=== PATIENT | male | born 1945 | race Caucasian/White ===

== ENCOUNTER 2018-01-09 19:53 | Emergency (ER) | payer MEDICARE ==
[2018-01-09] MEDS: NITROGLYCERIN 0.4 MG SUBL TABLET SL (16:45)
[2018-01-09] MEDS: ONDANSETRON 4MG/2ML VIAL (J2405) IV (16:45)
[2018-01-09] MEDS: CLOPIDOGREL 300 MG TAB (PLAVIX) PO (16:48)
[2018-01-09 17:00] LABS: BASO # 0.1 10^3/uL (0.0-0.2); BASO % 0.7 % (0.0-1.0); EOS # 0.1 10^3/uL (0.0-0.50); EOS % 1.2 % (0.0-3.0); HEMATOCRIT 47.1 % (42.0-52.0); HEMOGLOBIN 16.3 g/dl (13.5-17.5); IMMATURE GRANULOCYTE % 0.3 % (0-3.0); LYMPH % 25.8 % (24.0-44.0); MEAN CORPUSCULAR HEMOGLOBIN 29.9 pg (27.0-33.0); MEAN CORPUSCULAR HGB CONC 34.6 g/dl (32.0-36.5); MEAN CORPUSCULAR VOLUME 86.4 fl (80.0-96.0); NEUTROPHILS # 7.3 10^3/uL (1.8-7.7); PLATELET COUNT, AUTOMATED 301 10^3/uL (150-450); RED BLOOD COUNT 5.45 10^6/uL (4.30-6.10); RED CELL DISTRIBUTION WIDTH 12.9 % (11.5-14.5); WHITE BLOOD COUNT 11.6 10^3/uL (4.0-10.0)
[2018-01-09 17:18] LABS: INR 0.96; PROTHROMBIN TIME 12.9 SECONDS (12.4-14.5)
[2018-01-09 17:20] LABS: ALBUMIN 3.8 GM/DL (3.2-5.2); ALKALINE PHOSPHATASE 110 U/L (45-117); ALT/SGPT 28 U/L (12-78); ANION GAP 8 MEQ/L (8-16); AST/SGOT 28 U/L (7-37); BILIRUBIN,DIRECT < 0.1 MG/DL (0.0-0.2); BILIRUBIN,TOTAL 0.6 MG/DL (0.2-1.0); BLOOD UREA NITROGEN 30 MG/DL (7-18); CALCIUM LEVEL 9.3 MG/DL (8.8-10.2); CARBON DIOXIDE LEVEL 23 MEQ/L (21-32); CHLORIDE LEVEL 99 MEQ/L (98-107); CPK CREATINE PHOSPHOKINASE 278 U/L (39-308); CREATININE FOR GFR 0.99 MG/DL (0.70-1.30); GLOMERULAR FILTRATION RATE > 60.0 (>42); GLUCOSE, FASTING 146 MG/DL (70-100); LIPASE 164 U/L (73-393); POTASSIUM SERUM 3.9 MEQ/L (3.5-5.1); SODIUM LEVEL 130 MEQ/L (136-145); TROPONIN I < 0.02 NG/ML (< 0.10)
[2018-01-09 17:21] LABS: D-DIMER QUANT 452.9 ng/ml (<500)
[2018-01-09 17:26] LABS: MB/CK RELATIVE INDEX 1.07 (< OR =4)
[2018-01-09 17:35] LABS: BEDSIDE GLUCOSE 133 MG/DL (83-110)
[~2018-01-09 19:53] MED LIST: ONDANSETRON 4MG/2ML VIAL (J2405) As Ordered
[2018-01-09] MEDS: MAALOX 30 ML SUSP *UDC PO (20:15)
[2018-01-09 20:44] LABS: CPK CREATINE PHOSPHOKINASE 226 U/L (39-308); TROPONIN I < 0.02 NG/ML (< 0.10)
[2018-01-09 20:45] LABS: CK-MB VALUE MASS 2.2 NG/ML (<3.6); MB/CK RELATIVE INDEX 0.97 (< OR =4)
== END 2018-01-09 21:33 | disposition left against medical advice (07) ==
LOC: M ED 19:53
DX: I20.0 Unstable angina (principal); R94.31 Abnormal electrocardiogram [ECG] [EKG]; R06.02 Shortness of breath; E11.9 Type 2 diabetes mellitus without complications; I10 Essential (primary) hypertension; J45.909 Unspecified asthma, uncomplicated; M54.9 Dorsalgia, unspecified; Z88.5 Allergy status to narcotic agent
CPT/HCPCS: J2405

== ENCOUNTER 2020-05-09 12:53 | Inpatient (IN) | payer MEDICARE ==
[~2020-05-09] VITALS: Ht 193 cm; Wt 110.6 kg
[~2020-05-09 12:53] MED LIST changes: +*BLDWK7; +ALBUTEROL INHALATION; +AMITRIP100 PO; +AMO500 PO; +ATENOL25 PO; +ATENOLO100 PO; +ATENOLOL50 PO; +AUGXR10 PO; +CELEXA20 PO; +DARVOCET-N PO; +DIOVAN160 PO; +DOXYCYC100 PO; +FLEXERIL10 PO; +HCTZ25 PO; +HYDROCHL12 PO; +HYTRIN PO; +KDUR20 PO; +LISINOPR10 PO; +LISINOPR20 PO; +LYRICA25 PO; +MYCELEXTRO PO; +NAPROS500 PO; +NEURONTIN1 PO; +NITROSTAT4 SL; -ONDANSETRON 4MG/2ML VIAL (J2405) As Ordered; +PREDNISO20 PO; +TRIAMCIN TOPICAL; +TYL PO; +TYLENOL#3 PO; +VICODIN PO; +VIOXX25 PO; +ZANTAC150 PO; +ZOCOR80 PO; +ZOLOFT100 PO; +ZOLOFT50 PO; +ZYRTEC10 PO; +[UNRECOGNIZED DRUG - OTHER] PO
[2020-05-09] MEDS ORDERED: ATEN100T PO (13:24)
[2020-05-09] MEDS ORDERED: LOVA40TA PO (13:24)
[2020-05-09] MEDS ORDERED: GLIM4TAB5 PO (13:24)
--- NOTE | 2020-05-09 13:31 | REPVR ---
PROCEDURE INFORMATION: Exam: XR Chest, 1 View Exam date and time: 05/09/2020 1:24 PM Age: 75 years old Clinical indication: Other: Syncope; Additional info: Syncope/near-syncope TECHNIQUE: Imaging protocol: XR of the chest Views: 1 view. COMPARISON: [facility] PORTABLE CHEST X-RAY 01/09/2018 4:36 PM FINDINGS: Lungs: Emphysematous change and mild interstitial prominence. Pleural space: No pleural effusion. Heart/Mediastinum: Cardiac silhouette upper limits of normal in size. Bones/joints: Osteopenia and degenerative change. IMPRESSION: Emphysematous change and mild interstitial prominence. Electronically signed by: Tico Truong On 05/09/2020 13:31:39 PM
--- NOTE | 2020-05-09 13:45 | REPVR ---
PROCEDURE INFORMATION: Exam: CT Head Without Contrast Exam date and time: 05/09/2020 1:33 PM Age: 75 years old Clinical indication: Syncope and collapse TECHNIQUE: Imaging protocol: Computed tomography of the head without contrast. Radiation optimization: All CT scans at this facility use at least one of these dose optimization techniques: automated exposure control; mA and/or kV adjustment per patient size (includes targeted exams where dose is matched to clinical indication); or iterative reconstruction. COMPARISON: No relevant prior studies available. FINDINGS: Brain: Symmetric prominence of the cortical sulci. Prominent multifocal small-vessel ischemic change. No acute cortical infarct, mass effect, or intracranial hemorrhage. No acute post-traumatic brain injury. Ventricles: Normal configuration of the ventricles. Bones/joints: No acute calvarial injury. Paranasal sinuses: No sinus fluid. Mastoid air cells: No mastoid effusion. Vasculature: Vascular and dural calcifications. Soft tissues: No significant scalp hematoma. IMPRESSION: 1. No acute post-traumatic brain injury. 2. Atrophy and prominent small-vessel ischemic change. Electronically signed by: Tico Truong On 05/09/2020 13:45:46 PM
--- NOTE | 2020-05-09 13:48 | REPVR ---
PROCEDURE INFORMATION: Exam: CT Cervical Spine Without Contrast Exam date and time: 05/09/2020 1:33 PM Age: 75 years old Clinical indication: Other: Syncope TECHNIQUE: Imaging protocol: Computed tomography images of the cervical spine without contrast. Radiation optimization: All CT scans at this facility use at least one of these dose optimization techniques: automated exposure control; mA and/or kV adjustment per patient size (includes targeted exams where dose is matched to clinical indication); or iterative reconstruction. COMPARISON: No relevant prior studies available. FINDINGS: Vertebrae: Osteopenia. No acute bony injury or malalignment in the cervical spine. Discs/Spinal canal/Neural foramina: Degenerative change . Soft tissues: Ligamentous calcification. Lungs: Lung unremarkable apices as visualized. IMPRESSION: No acute bony injury or malalignment in the cervical spine. Electronically signed by: Tico Truong On 05/09/2020 13:48:05 PM
[2020-05-09 14:00] LABS: BASO % 0.5 % (0.0-1.0); EOS # 0.1 10^3/uL (0.0-0.5); EOS % 0.6 % (0.0-3.0); HEMOGLOBIN 16.5 g/dl (13.5-17.5); LYMPH # 1.2 10^3/uL (1.5-5.0); LYMPH % 15.4 % (24.0-44.0); MEAN CORPUSCULAR HEMOGLOBIN 30.3 pg (27.0-33.0); MEAN CORPUSCULAR HGB CONC 35.1 g/dl (32.0-36.5); MEAN CORPUSCULAR VOLUME 86.4 fl (80.0-96.0); MONO # 0.7 10^3/uL (0.0-0.8); MONO % 8.5 % (0.0-5.0); NEUTROPHILS # 5.8 10^3/uL (1.5-8.5); NEUTROPHILS % 74.5 % (36.0-66.0); PLATELET COUNT, AUTOMATED 304 10^3/uL (150-450); RED BLOOD COUNT 5.44 10^6/uL (4.30-6.10); WHITE BLOOD COUNT 7.8 10^3/uL (4.0-10.0)
[2020-05-09 14:12] LABS: INR 0.96
[2020-05-09 14:13] LABS: PARTIAL THROMBOPLASTIN TIME 28.4 SECONDS (25.0-38.4)
[2020-05-09] MEDS ORDERED: NS 1,000 ML IV ONE (14:15)
[2020-05-09 14:42] LABS: BLOOD UREA NITROGEN 23 MG/DL (7-18); CALCIUM LEVEL 9.8 MG/DL (8.8-10.2); CARBON DIOXIDE LEVEL 25 MEQ/L (21-32); CHLORIDE LEVEL 95 MEQ/L (98-107); CK-MB VALUE MASS 2.6 NG/ML (<3.6); CPK CREATINE PHOSPHOKINASE 185 U/L (39-308); CREATININE FOR GFR 0.96 MG/DL (0.70-1.30); ETHYL ALCOHOL (ETHANOL) < 0.003 % (0.000-0.010); FREE T4 1.18 NG/DL (0.76-1.46); GLOMERULAR FILTRATION RATE > 60.0 (>42); GLUCOSE, FASTING 231 MG/DL (70-100); MB/CK RELATIVE INDEX 1.41 (< OR =4); POTASSIUM SERUM 4.6 MEQ/L (3.5-5.1); SODIUM LEVEL 128 MEQ/L (136-145); TROPONIN I < 0.02 NG/ML (< 0.10)
[2020-05-09] MEDS ORDERED: ISOVUE-370 76% 100ML VIAL As Ordered ONE (14:54)
--- NOTE | 2020-05-09 15:44 | REPVR ---
PROCEDURE INFORMATION: Exam: CT Angiography Chest With Contrast Exam date and time: 05/09/2020 3:01 PM Age: 75 years old Clinical indication: Chest pain; Additional info: Syncope TECHNIQUE: Imaging protocol: Computed tomographic angiography of the chest with intravenous contrast. 3D rendering (Not supervised by radiologist): MIP and/or 3D reconstructed images were created by the technologist. Radiation optimization: All CT scans at this facility use at least one of these dose optimization techniques: automated exposure control; mA and/or kV adjustment per patient size (includes targeted exams where dose is matched to clinical indication); or iterative reconstruction. Contrast material: ISOVUE 370; Contrast volume: 100 ml; Contrast route: INTRAVENOUS (IV); COMPARISON: [facility] PORTABLE CHEST X-RAY 05/09/2020 1:17 PM FINDINGS: Pulmonary arteries: No pulmonary embolus in the opacified pulmonary arteries. Aorta: Mild enlargement of the ascending thoracic aorta measuring 4.0 cm in diameter. Lungs: Interstitial prominence and mild bilateral airspace disease. Pleural space: No pleural effusion. Heart: No cardiomegaly. Mediastinum: prominent mediastinal and epicardial fat. Lymph nodes: Subcentimeter lymph nodes. Bones/joints: Osteopenia, multiple chronic compression deformities in the thoracic spine, Schmorl's nodes, and degenerative change. Soft tissues: Gynecomastia. IMPRESSION: 1. Interstitial prominence and mild bilateral airspace disease. 2. Mild enlargement of the ascending thoracic aorta measuring 4.0 cm in diameter. 3. No pulmonary embolus in the opacified pulmonary arteries. 4. Additional findings as described above. Electronically signed by: Tico Truong On 05/09/2020 15:44:29 PM
[2020-05-09] MEDS ORDERED: KETOROLAC 30 MG/ML 1ML VIAL IV ONE (15:45)
[2020-05-09] MEDS ORDERED: ONDANSETRON 4MG/2ML VIAL IV ONE (15:45)
--- NOTE | 2020-05-09 15:49 | REPVR ---
PROCEDURE INFORMATION: Exam: CT Abdomen And Pelvis With Contrast Exam date and time: 05/09/2020 3:01 PM Age: 75 years old Clinical indication: Abdominal pain; Generalized; Additional info: Syncope TECHNIQUE: Imaging protocol: Computed tomography of the abdomen and pelvis with intravenous contrast. Radiation optimization: All CT scans at this facility use at least one of these dose optimization techniques: automated exposure control; mA and/or kV adjustment per patient size (includes targeted exams where dose is matched to clinical indication); or iterative reconstruction. Contrast material: ISOVUE 370; Contrast volume: 100 ml; Contrast route: INTRAVENOUS (IV); COMPARISON: No relevant prior studies available. FINDINGS: Liver: Fatty infiltration of the liver. Gallbladder and bile ducts: Unremarkable gallbladder. No biliary ductal dilatation. Pancreas: No pancreatic mass or ductal dilatation. Spleen: Spleen upper limits of normal in size. Adrenals: Unremarkable adrenals. Kidneys and ureters: Normal renal morphology. No hydronephrosis. Stomach and bowel: Mild wall thickening in the nondistended stomach. Mild small bowel dilatation without a transition zone. Prominent stool. Diverticula, without pericolonic inflammation. Appendix: No acute appendicitis. Intraperitoneal space: No free fluid. Vasculature: Vascular calcification. No abdominal aortic aneurysm. Lymph nodes: Subcentimeter lymph nodes. Bladder: Normal bladder morphology. Reproductive: Punctate prostate calcification. Bones/joints: Osteopenia. Transitional vertebra at the lumbosacral junction, designated S1 grade 1 anterolisthesis of L5 on S1. Degenerative change and disc bulging. IMPRESSION: 1. No acute inflammatory process in the abdomen or pelvis. 2. Additional findings as described above. Electronically signed by: Tico Truong On 05/09/2020 15:49:15 PM
[2020-05-09 16:04] LABS: AMPHETAMINES LEVEL URINE NEGATIVE (NEGATIVE); BARBITURATES URINE NEGATIVE (NEGATIVE); BENZODIAZEPINES URINE NEGATIVE (NEGATIVE); CANNABINOIDS URINE NEGATIVE (NEGATIVE); COCAINE METABOLITE URINE NEGATIVE (NEGATIVE); METHADONE URINE NEGATIVE (NEGATIVE); OPIATES URINE NEGATIVE (NEGATIVE); PHENCYCLIDINE URINE NEGATIVE (NEGATIVE)
--- NOTE | 2020-05-09 18:13 | HPEPDOC ---
[facility] Medical History & Physical Date of Admission May 09, 2020 Date of Service: May 09, 2020 History and Physical CHIEF COMPLAINT: syncope HISTORY OF PRESENT ILLNESS: 75 yo M with a hx of HTN, DM2, PE syncopal episodes, presented to the ED after he found himself on his kitchen floor today. He states that he was making a sandwich, and felt a funny feeling in his arms. Next thing he remembers is his dog licking his face. He crawled to the door, where his neighbors noticed him and called EMS. He denies chest pain, SOB, palpitations, headache, fevers, chills, n/v/d. He was last admitted to [facility] in 2007 for a syncopal episode (prior consults note 5 prior syncopal episodes), for which he received a cardiac and neuro exam. He was assessed by neurology. Clinic features at the time were consistent with syncope 2/2 to seizure like activity. EEG was wnl. MRA showed possible R ophthalmic ICA and RCA narrowing (some artifact was noted). Patient states that he has not taken his medications for the past 2-3 months. He reports being diagnosed with a PE for which he took AC (suspect NOAC) at [facility], but that he stopped taking AC 3 months ago. He states that his PCP was Dr. Rushing but he is no longer being seen. He lost 5 immediate family members in the past few months, and he has been neglecting his health due to bereavement and supporting his daughter (lost her recently). PAST MEDICAL HISTORY: HTN DM2 HLD PAST SURGICAL HISTORY: Discectomy and lumbar laminectomy of L5-S1 for a herniated disc Tonsillectomy SOCIAL HISTORY: FAMILY HISTORY: ALLERGIES: Please see below. REVIEW OF SYSTEMS: as per HPI. HOME MEDICATIONS: Please see below. PHYSICAL EXAMINATION: VITAL SIGNS: as above. General: NAD, comfortable HEENT: PERRLA, EOMI, sclerae clear Neck: supple, normal ROM, no JVD Resp: lungs CTAB, no wheeze, no rales, no crackles CVS: RRR, normal S1, S2, no murmurs Abdo: soft, no masses, no hepatosplenomegaly, BS+, no rebound tenderness Extremities: no edema, pulses 2+ MSK: no joint deformities, normal ROM Neuro: no focal neuro deficits, moving all 4 extremities Psych: calm, cooperative, AAO x 3 LABORATORY DATA: See below. IMAGING: CXR: IMPRESSION: Emphysematous change and mild interstitial prominence. CT head: IMPRESSION: 1. No acute post-traumatic brain injury. 2. Atrophy and prominent small-vessel ischemic change. CT c-spine IMPRESSION: No acute bony injury or malalignment in the cervical spine. CTA chest: IMPRESSION: 1. Interstitial prominence and mild bilateral airspace disease. 2. Mild enlargement of the ascending thoracic aorta measuring 4.0 cm in diameter. 3. No pulmonary embolus in the opacified pulmonary arteries. 4. Additional findings as described above. CT abdo/pelvis: Bones/joints: Osteopenia. Transitional vertebra at the lumbosacral junction, designated S1 grade 1 anterolisthesis of L5 on S1. Degenerative change and disc bulging. IMPRESSION: 1. No acute inflammatory process in the abdomen or pelvis. 2. Additional findings as described above MICROBIOLOGY: Please see below. ASSESSMENT: 75 yo M with a hx of HTN, DM2, Ashtma, presenting to the ED after an episode of syncope. Prior recurrent syncopal episodes. Given presentation of confusion and memory loss after episodes, consider seizure activity. . PLAN: # syncope - cardiac vs neuro in nature. Seizures likely. - CT head, neck wnl - Tele - check 2D echo, Carotid US (BL) - check tsh, b12, folate, vitamin D - order EEG - PT/OT eval # Hyponatremia - Na 128 - IV NS 80 cc/hr #DM2 - check a1c - ISS, - accuchecks AC and HS - consistent carbohydrate diet #HTN - continue home meds - limit Na intake on DC - monitor BP - BP goals < 150/90 #Hyperlipidemia - continue home med: statin # LE weakness - ROM limited by back pain - CT brain wnl - PT/OT Dispo: pending PT/OT eval. Vital Signs Vital Signs Date Time Temp Pulse Resp B/P (MAP) Pulse Ox O2 Delivery O2 Flow Rate FiO2 05/09/20 14:43 100 166/88 (114) 110 180/112 (134) 112 163/97 (119) 05/09/20 14:07 98.6 20 99 Room Air Laboratory Data Labs 24H Laboratory Tests 2 05/09/20 13:47: Immature Granulocyte % (Auto) 0.5, Neutrophils (%) (Auto) 74.5H, Lymphocytes (%) (Auto) 15.4L, Monocytes (%) (Auto) 8.5H, Eosinophils (%) (Auto) 0.6, Basophils (%) (Auto) 0.5, Neutrophils # (Auto) 5.8, Lymphocytes # (Auto) 1.2L, Monocytes # (Auto) 0.7, Eosinophils # (Auto) 0.1, Basophils # (Auto) 0.0, Nucleated Red Blood Cells % (auto) 0.0, Prothrombin Time 13.0, Prothromb Time International Ratio 0.96, Activated Partial Thromboplast Time 28.4, Anion Gap 8, Glomerular Filtration Rate > 60.0, Calcium Level 9.8, Magnesium Level 2.0, Total Creatine Kinase 185, Creatine Kinase MB 2.6, Creatine Kinase MB Relative Index 1.41, Troponin I < 0.02, Thyroid Stimulating Hormone (TSH) 2.040, Free Thyroxine 1.18, Ethyl Alcohol Level < 0.003 05/09/20 13:52: Bedside Glucose (Misc Panel) 258H 05/09/20 13:55: Urine Opiates Screen NEGATIVE, Urine Methadone Screen NEGATIVE, Urine Barbiturates Screen NEGATIVE, Urine Phencyclidine Screen NEGATIVE, Urine Amph etamines Screen NEGATIVE, Urine Benzodiazepines Screen NEGATIVE, Urine Cocaine Metabolite Screen NEGATIVE, Urine Cannabinoids Screen NEGATIVE CBC/BMP Laboratory Tests 05/09/20 13:47 Home Medications Scheduled Atenolol (Atenolol) 100 Mg Tablet, 100 MG PO DAILY Glimepiride (Glimepiride) 4 Mg Tablet, 4 MG PO DAILY Lovastatin (Lovastatin) 40 Mg Tablet, 40 MG PO DAILY Miscellaneous Medications [Patient Comment] PATIENT HAS NOT TAKEN MEDICATIONS IN 2 TO 3 MONTHS. PATIENT WAS ALSO GETTING A BLOOD THINNER A SAMPLE FROM THE DR OFFICE TAKING ONCE DAILY, BUT DOES NOT RECALL THE NAME OF THE MEDICATION. Allergies Coded Allergies: morphine (Verified Allergy, Intermediate, HYPOTENSION, 05/09/20) A-FIB/CHADSVASC A-FIB History Current/History of A-Fib/PAF?: No Current PO Anticoag Therapy: No FLEX STOUT MD May 09, 2020 18:13
[2020-05-09] MEDS ORDERED: DEXTROSE 50% 50 ML SYRINGE IV PRN (18:15)
[2020-05-09] MEDS ORDERED: GLUCOSE 4GM CHEW TABLET PO PRN (18:15)
[2020-05-09] MEDS ORDERED: GLUCAGON INJ 1MG VIAL SC PRN (18:15)
[2020-05-09] MEDS ORDERED: PERCOCET 5MG/325MG TAB PO ONE (18:15)
[2020-05-09] MEDS ORDERED: NS 1,000 ML IV SCH (18:30)
[2020-05-09] MEDS ORDERED: PATIENT COMMENT (19:05)
[2020-05-09] MEDS: LOSARTAN 25 MG TAB PO SCH (21:41)
[2020-05-09] MEDS: amLODIPine 5 MG TAB PO SCH (21:42)
[2020-05-09 22:55] VITALS: BP 162/90
--- NOTE | 2020-05-10 00:42 | REPVR ---
PROCEDURE INFORMATION: Exam: US Duplex Bilateral Extracranial Arteries Exam date and time: 05/09/2020 6:49 PM Age: 75 years old Clinical indication: Syncope and collapse TECHNIQUE: Imaging protocol: Real-time Duplex ultrasound scan of the bilateral carotid and vertebral arteries combining krishna scale, color Doppler and spectral waveform analysis. Bilateral exam. COMPARISON: CT Head without contrast 05/09/2020 1:26 PM FINDINGS: Right common carotid artery: The proximal right common carotid artery demonstrates normal triphasic waveforms with velocity of 52 cm/s, mid velocity of 48 cm/s and distal velocity of 40 cm/s. Right internal carotid artery: The right proximal internal carotid artery demonstrates normal Doppler waveforms with velocity of 40 cm/s and mid velocity of 56 cm/s. The distal internal carotid artery is not visualized. Right ICA/CCA ratio: The right ICA/CCA ratio is 1.1. Right external carotid artery: The right external carotid artery demonstrates normal Doppler waveforms with velocity of 64 cm/s. Right vertebral artery: The right vertebral artery is not seen. Left common carotid artery: The left common carotid artery proximally demonstrates normal Doppler waveforms with velocity of 94 cm/s, mid velocity of 65 cm/s and distal velocity of 64 cm/s. Left internal carotid artery: The proximal left internal carotid artery demonstrates normal Doppler waveforms with velocity of 32 cm/s and mid velocity of 64 cm/s. The distal internal carotid artery is not visualized. Left ICA/CCA ratio: The left ICA/CCA ratio is 0.7. Left external carotid artery: The left external carotid demonstrates normal Doppler waveforms with velocity of 69 cm/s. Left vertebral artery: The left vertebral artery demonstrates antegrade flow with velocity of 39 cm/s. Other findings: Technical limitation of high carotid bifurcations and large neck. IMPRESSION: 1. Somewhat limited exam due to high bifurcations and large neck. 2. Otherwise negative carotid Doppler evaluation without evidence of hemodynamically significant stenosis. REFERENCES: SRU CRITERIA. The degree of internal carotid artery stenosis is based on criteria defined by the Society of Radiologists in Ultrasound (SRU). Normal is no stenosis. Mild is less than 50% stenosis. Moderate is 50-69% stenosis. Severe is greater than 69% stenosis to near occlusion. Near occlusion is a markedly narrowed lumen. Total occlusion is no detectable patent lumen. Electronically signed by: Malik Pinto On 05/10/2020 00:42:21 AM
[2020-05-10] MEDS: methocarbamoL 500 MG TAB PO PRN ×3 (00:53→18:03)
[2020-05-10] MEDS: ACETAMINOPHEN TAB 650MG DOSE (2X325MG) PO PRN ×3 (00:54→20:56)
[2020-05-10 06:00] VITALS: BP 150/88
[2020-05-10 06:18] LABS: BASO # 0.1 10^3/uL (0.0-0.2); EOS # 0.1 10^3/uL (0.0-0.5); EOS % 2.2 % (0.0-3.0); HEMATOCRIT 43.3 % (42.0-52.0); HEMOGLOBIN 14.7 g/dl (13.5-17.5); LYMPH # 1.2 10^3/uL (1.5-5.0); LYMPH % 23.7 % (24.0-44.0); MEAN CORPUSCULAR HEMOGLOBIN 30.2 pg (27.0-33.0); MEAN CORPUSCULAR HGB CONC 33.9 g/dl (32.0-36.5); MEAN CORPUSCULAR VOLUME 88.9 fl (80.0-96.0); MONO # 0.6 10^3/uL (0.0-0.8); MONO % 10.9 % (0.0-5.0); NEUTROPHILS # 3.1 10^3/uL (1.5-8.5); PLATELET COUNT, AUTOMATED 248 10^3/uL (150-450); RED BLOOD COUNT 4.87 10^6/uL (4.30-6.10)
[2020-05-10 06:53] LABS: ALBUMIN 3.2 GM/DL (3.2-5.2); ALT/SGPT 30 U/L (12-78); BILIRUBIN,TOTAL 0.7 MG/DL (0.2-1.0); BLOOD UREA NITROGEN 22 MG/DL (7-18); CARBON DIOXIDE LEVEL 26 MEQ/L (21-32); CHLORIDE LEVEL 98 MEQ/L (98-107); CREATININE FOR GFR 0.92 MG/DL (0.70-1.30); GLOMERULAR FILTRATION RATE > 60.0 (>42); GLUCOSE, FASTING 235 MG/DL (70-100); MAGNESIUM LEVEL 1.9 MG/DL (1.8-2.4); PHOSPHORUS LEVEL 3.7 MG/DL (2.5-4.9); SODIUM LEVEL 131 MEQ/L (136-145); TOTAL PROTEIN 6.3 GM/DL (6.4-8.2)
[2020-05-10] MEDS: HumaLOG INSULIN (NovoLOG) PER UNIT SC SCH ×3 (08:21→17:20)
[2020-05-10] MEDS: ENOXAPARIN 40MG/0.4ML SYRINGE (J1650 PER 10MG) SC SCH (08:23)
[2020-05-10] MEDS: TAMSULOSIN 0.4 MG CAP PO SCH (08:24)
[2020-05-10] MEDS: amLODIPine 5 MG TAB PO SCH (08:30)
[2020-05-10] MEDS ORDERED: NS 1,000 ML IV SCH (08:30)
[2020-05-10] MEDS: atenoloL 50 MG TAB PO SCH (08:31)
[2020-05-10 09:25] LABS: TOTAL 25(OH) VITAMIN D 21.6 NG/ML (30.0-100.0); VITAMIN B12 LEVEL 313 PG/ML (247-911)
[2020-05-10 09:27] LABS: FOLATE 6.7 NG/ML (>5.4)
--- NOTE | 2020-05-10 10:31 | IPNPDOC ---
Date Seen The patient was seen on 05/10/20. Progress Note SUBJECTIVE: patient was seen at bedside. Doing well this morning. No acute events overnight. Today, he reported chest pain that occurred yesterday. Initial Trop in ED was negative. EKG showed no signs of ischemia. Will obtain a repeat trop and EKG. Pain has resolved. Unable to verify if occurred prior to or after the collapse. OBJECTIVE PHYSICAL EXAMINATION: VITAL SIGNS: Please see below. General: NAD, comfortable HEENT: PERRLA, EOMI, sclerae clear Neck: supple, normal ROM, no JVD Resp: lungs CTAB, no wheeze, no rales, no crackles CVS: RRR, normal S1, S2, no murmurs Abdo: soft, no masses, no hepatosplenomegaly, BS+, no rebound tenderness Extremities: no edema, pulses 2+ MSK: no joint deformities, normal ROM Neuro: no focal neuro deficits, moving all 4 extremities Psych: calm, cooperative, AAO x 3 LABORATORY DATA, IMAGING STUDIES, MICROBIOLOGY: Please see below. Echocardiogram: ordered. DVT prophylaxis ordered?: Yes, lovenox ASSESSMENT AND PLAN: 75 yo M with a hx of HTN, DM2, PE (was on AC, stopped 3 mo ago), presenting to the ED after an episode of syncope. Prior recurrent syncopal episodes. Given presentation of confusion and memory loss after episodes, consider seizure activity. PROBLEMS: # syncope - cardiac vs neuro in nature. Seizures likely. - CT head, neck wnl - Tele showing no arrhythmia overnight. Will recommend outpatient cardiac monitoring. - Bilateral carotid US showing no stenosis. - check 2D echo - tsh, b12, folate wnl, vitamin D low (replace PO) - order EEG, MRI, MRA - neurology consult placed, Dr. Lambert aware. - PT/OT eval # Hyponatremia - Na 128 --> 131 - IV NS 80 cc/hr #DM2 - A1c 9.0, takes no meds at home (previously on glimepiride, hold on DC) - ISS - accuchecks AC and HS ~250-300 - start levemir 10 units qhs - will need new PCP - diabetic education - consistent carbohydrate diet #Chest pain - resolved - not endorsed on ROS during admission - Trop neg, trend - EKG showing no signs for ischemia - pain resolved - obtain repeat EKG #HTN - continue home meds: atenolol 50 mg qdaily (reduced from 100 mg daily) - added losartan 25 mg PO daily, amlodipine 5 mg qdaily - limit Na intake on DC - Normotensive today (BP goal < 150/90) #Hyperlipidemia - home med lovastatin # LE weakness - ROM limited by back pain - CT brain wnl - PT/OT Dispo: pending PT/OT eval. VS, I&O, 24H, Fishbone Vital Signs/I&O Vital Signs Date Time Temp Pulse Resp B/P (MAP) Pulse Ox O2 Delivery O2 Flow Rate FiO2 05/10/20 08:30 80 142/92 05/10/20 06:00 97.6 19 97 Room Air I&O- Last 24 Hours up to 6 AM 05/10/20 06:00 Intake Total 1790 ml Output Total 375 ml Balance 1415 ml Laboratory Data 24H LABS Laboratory Tests 2 05/09/20 13:47: Immature Granulocyte % (Auto) 0.5, Neutrophils (%) (Auto) 74.5H, Lymphocytes (%) (Auto) 15.4L, Monocytes (%) (Auto) 8.5H, Eosinophils (%) (Auto) 0.6, Basophils (%) (Auto) 0.5, Neutrophils # (Auto) 5.8, Lymphocytes # (Auto) 1.2L, Monocytes # (Auto) 0.7, Eosinophils # (Auto) 0.1, Basophils # (Auto) 0.0, Nucleated Red Blood Cells % (auto) 0.0, Prothrombin Time 13.0, Prothromb Time International Ratio 0.96, Activated Partial Thromboplast Time 28.4, Anion Gap 8, Glomerular Filtration Rate > 60.0, Calcium Level 9.8, Magnesium Level 2.0, Total Creatine Kinase 185, Creatine Kinase MB 2.6, Creatine Kinase MB Relative Index 1.41, Troponin I < 0.02, Thyroid Stimulating Hormone (TSH) 2.040, Free Thyroxine 1.18, Ethyl Alcohol Level < 0.003 05/09/20 13:52: Bedside Glucose (Misc Panel) 258H 05/09/20 13:55: Urine Opiates Screen NEGATIVE, Urine Methadone Screen NEGATIVE, Urine Barbiturates Screen NEGATIVE, Urine Phencyclidine Screen NEGATIVE, Urine Amphetamines Screen NEGATIVE, Urine Benzodiazepines Screen NEGATIVE, Urine Cocaine Metabolite Screen NEGATIVE, Urine Cannabinoids Screen NEGATIVE 05/09/20 23:37: Bedside Glucose (Misc Panel) 286H 05/10/20 05:52: Immature Granulocyte % (Auto) 0.2, Neutrophils (%) (Auto) 62.0, Lymphocytes (%) (Auto) 23.7L, Monocytes (%) (Auto) 10.9H, Eosinophils (%) (Auto) 2.2, Basophils (%) (Auto) 1.0, Neutrophils # (Auto) 3.1, Lymphocytes # (Auto) 1.2L, Monocytes # (Auto) 0.6, Eosinophils # (Auto) 0.1, Basophils # (Auto) 0.1, Nucleated Red Blood Cells % (auto) 0.0, Anion Gap 7L, Glomerular Filtration Rate > 60.0, Estimated Mean Plasma Glucose 212H, Hemoglobin A1c 9.0, Calcium Level 9.0, Phosphorus Level 3.7, Magnesium Level 1.9, Total Bilirubin 0.7, Aspartate Amino Transf (AST/SGOT) 22, Alanine Aminotransferase (ALT/SGPT) 30, Alkaline Phosphatase 128H, Total Protein 6.3L, Albumin 3.2, Albumin/Globulin Ratio 1.0, Vitamin B12 Level 313, 25-Hydroxy Vitamin D Total 21.6L, Folate 6.7, Thyroid Stimulating Hormone (TSH) 3.420, Syphilis Serology NONREACTIVE CBC/BMP Laboratory Tests 05/09/20 13:47 05/10/20 05:52 FLEX STOUT MD May 10, 2020 10:31
[2020-05-10 10:46] LABS: TROPONIN I < 0.02 NG/ML (< 0.10)
[2020-05-10] MEDS: VITAMIN D 1,000 INTERNATIONAL UNITS TABLET PO SCH (12:16)
[2020-05-10 14:00] VITALS: BP 140/83
--- NOTE | 2020-05-10 19:37 | ECGEPIP ---
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
[2020-05-10] MEDS: LOSARTAN 25 MG TAB PO SCH (20:54)
[2020-05-10] MEDS: ATORVASTATIN 20 MG TAB PO SCH (20:54)
[2020-05-10] MEDS: LEVEMIR (INSULIN DETEMIR) 1 UNITS/0.01ML SC SCH (21:31)
[2020-05-10 22:00] VITALS: BP 143/87
[2020-05-11] MEDS: methocarbamoL 500 MG TAB PO PRN (04:05)
[2020-05-11 06:00] VITALS: BP 144/87
[2020-05-11 07:08] LABS: BASO # 0.1 10^3/uL (0.0-0.2); BASO % 1.3 % (0.0-1.0); EOS # 0.1 10^3/uL (0.0-0.5); EOS % 3.1 % (0.0-3.0); HEMATOCRIT 44.6 % (42.0-52.0); HEMOGLOBIN 15.2 g/dl (13.5-17.5); LYMPH # 1.4 10^3/uL (1.5-5.0); LYMPH % 30.1 % (24.0-44.0); MEAN CORPUSCULAR HGB CONC 34.1 g/dl (32.0-36.5); MEAN CORPUSCULAR VOLUME 88.1 fl (80.0-96.0); MONO # 0.6 10^3/uL (0.0-0.8); MONO % 12.2 % (0.0-5.0); NEUTROPHILS # 2.4 10^3/uL (1.5-8.5); NEUTROPHILS % 52.9 % (36.0-66.0); PLATELET COUNT, AUTOMATED 246 10^3/uL (150-450); RED BLOOD COUNT 5.06 10^6/uL (4.30-6.10); WHITE BLOOD COUNT 4.5 10^3/uL (4.0-10.0)
[2020-05-11 07:28] LABS: ALBUMIN 3.3 GM/DL (3.2-5.2); ALT/SGPT 28 U/L (12-78); BILIRUBIN,TOTAL 0.7 MG/DL (0.2-1.0); BLOOD UREA NITROGEN 18 MG/DL (7-18); CALCIUM LEVEL 8.8 MG/DL (8.8-10.2); CARBON DIOXIDE LEVEL 26 MEQ/L (21-32); CHLORIDE LEVEL 97 MEQ/L (98-107); CHOLESTEROL LEVEL 274 MG/DL (<200); CHOLESTEROL RISK RATIO 4.981 (<5); CREATININE FOR GFR 0.75 MG/DL (0.70-1.30); GLOMERULAR FILTRATION RATE > 60.0 (>42); GLUCOSE, FASTING 171 MG/DL (70-100); HDL CHOLESTEROL 55 MG/DL (>40); LDL CHOLESTEROL 170 MG/DL (<100); MAGNESIUM LEVEL 1.9 MG/DL (1.8-2.4); NON-HDL-C 219 MG/DL; PHOSPHORUS LEVEL 3.2 MG/DL (2.5-4.9); POTASSIUM SERUM 4.3 MEQ/L (3.5-5.1); SODIUM LEVEL 131 MEQ/L (136-145); TOTAL PROTEIN 6.3 GM/DL (6.4-8.2); TRIGLYCERIDES LEVEL 244 MG/DL (<150)
[2020-05-11] MEDS ORDERED: LIDOCAINE 5% (LIDODERM) PATCH TD ONE (07:45)
[2020-05-11] MEDS: TAMSULOSIN 0.4 MG CAP PO SCH (08:33)
[2020-05-11] MEDS: VITAMIN D 1,000 INTERNATIONAL UNITS TABLET PO SCH (08:33)
[2020-05-11] MEDS: ENOXAPARIN 40MG/0.4ML SYRINGE (J1650 PER 10MG) SC SCH (08:33)
[2020-05-11] MEDS: HumaLOG INSULIN (NovoLOG) PER UNIT SC SCH ×3 (08:33→17:00)
[2020-05-11] MEDS: atenoloL 50 MG TAB PO SCH (08:51)
[2020-05-11] MEDS: amLODIPine 5 MG TAB PO SCH (08:51)
--- NOTE | 2020-05-11 11:16 | REPVR ---
PROCEDURE INFORMATION: Exam: MR Angiogram Head Without Contrast, Arteries Exam date and time: 05/11/2020 11:10 AM Age: 75 years old Clinical indication: Syncope and collapse; Additional info: Recurrent syncope/seizure TECHNIQUE: Imaging protocol: MR angiogram head without contrast. Exam focused on the arteries. 3D rendering (Not supervised by radiologist): MIP and/or 3D reconstructed images were created by the technologist. COMPARISON: CT Head without contrast 05/09/2020 1:26 PM FINDINGS: ANTERIOR CIRCULATION: Right internal carotid artery: Intracranial segment is patent with no significant stenosis. No aneurysm. Right middle cerebral artery: No occlusion or significant stenosis. No aneurysm. Right anterior cerebral artery: No occlusion or significant stenosis. No aneurysm. Left internal carotid artery: Intracranial segment is patent with no significant stenosis. No aneurysm. Left middle cerebral artery: No occlusion or significant stenosis. No aneurysm. Left anterior cerebral artery: No occlusion or significant stenosis. No aneurysm. POSTERIOR CIRCULATION: Right vertebral artery: No occlusion or significant stenosis. No aneurysm. Left vertebral artery: No occlusion or significant stenosis. No aneurysm. Basilar artery: No occlusion or significant stenosis. No aneurysm. Right posterior cerebral artery: No occlusion or significant stenosis. No aneurysm. Left posterior cerebral artery: No occlusion or significant stenosis. No aneurysm. IMPRESSION: No stenosis.No occlusion. No aneurysm. Electronically signed by: Juan C Cho On 05/11/2020 11:16:29 AM
--- NOTE | 2020-05-11 11:19 | REPVR ---
PROCEDURE INFORMATION: Exam: MR Head Without Contrast Exam date and time: 05/11/2020 11:10 AM Age: 75 years old Clinical indication: Syncope and collapse; Additional info: Seizure TECHNIQUE: Imaging protocol: MR of the head without contrast. COMPARISON: CT Head without contrast 05/09/2020 1:26 PM FINDINGS: Brain: There is moderate patchy increased T2 signal intensity within the bilateral cerebral periventricular white matter, consistent with chronic microvascular ischemic changes. There are multiple small focal areas of chronic ischemia in bilateral frontal, parietal and periatrial white matter. Chronic ischemic changes are seen in the siva. There is no abnormal diffusion weighted signal intensity to suggest an acute ischemic event. There is mild diffuse cerebral atrophy present, consistent with this patient's age. Ventricles: The ventricular system demonstrates mild diffuse compensatory enlargement. Bones/joints: Unremarkable. Sinuses: Mild mucosal thickening is seen in the paranasal sinuses. Mastoid air cells: Normal as visualized. No mastoid effusion. Orbits: Unremarkable. Soft tissues: Unremarkable. IMPRESSION: 1. No acute infarction, masses or hemorrhage is seen. No acute intracranial abnormality is identified. 2. Diffuse age-related cerebral atrophy and moderate chronic microvascular white matter ischemic changes, without evidence of an acute intracranial abnormality. 3. There has been no adverse interval change since the previous study. Electronically signed by: Juan C Cho On 05/11/2020 11:18:57 AM
[2020-05-11] MEDS: NORCO, ANEXSIA 5/325MG TABLET (HYDROcodone/ACETAMINOPHEN) PO PRN (13:40)
[2020-05-11 14:00] VITALS: BP 118/92
[2020-05-11] MEDS ORDERED: KETOROLAC 30 MG/ML 1ML VIAL IV ONE (16:30)
--- NOTE | 2020-05-11 17:24 | IPNPDOC ---
Date Seen The patient was seen on 05/11/20. Progress Note SUBJECTIVE: patient was seen at bedside. Doing well this morning. No acute events overnight. Patient is c/o severe low back pain. He is not cooperative with PT. States that he is being conspired against. He denies further testing for severe back pain. He denies chest pain at this time. He denies urinary or bowel incontinence. OBJECTIVE PHYSICAL EXAMINATION: VITAL SIGNS: Please see below. General: NAD, comfortable HEENT: PERRLA, EOMI, sclerae clear Neck: supple, normal ROM, no JVD Resp: lungs CTAB, no wheeze, no rales, no crackles CVS: RRR, normal S1, S2, no murmurs Abdo: soft, no masses, no hepatosplenomegaly, BS+, no rebound tenderness Extremities: no edema, pulses 2+ MSK: no joint deformities, normal ROM. Severe pain to palpation at L5/S1. Neuro: moving all 4 extremities, patient is upset this morning, unable to perform complete neuro exam Psych: states that he is being robbed, he is being conspired again, AAO x 2-3 LABORATORY DATA, IMAGING STUDIES, MICROBIOLOGY: Please see below. Echocardiogram: ordered. DVT prophylaxis ordered?: Yes, lovenox ASSESSMENT AND PLAN: 75 yo M with a hx of HTN, DM2, PE (was on AC, stopped 3 mo ago), presenting to the ED after an episode of syncope. Prior recurrent syncopal episodes. Given presentation of confusion and memory loss after episodes, consider seizure activity. Patient's mobility significantly limited by low back pain. He is not willing to participate in PT/OT, and has alternating moments of wishing to leave AMA vs staying and receiving care. PROBLEMS: # syncope - cardiac vs neuro in nature. Seizures likely. - CT head, neck wnl - Tele showing no arrhythmia overnight. - Bilateral carotid US showing no stenosis. - check 2D echo - tsh, b12, folate wnl, vitamin D low (replace PO) - EEG performed, report pending - MRI/MRA showing no acute abnormality - neurology consult placed, discussed with Dr. Lambert. It is difficult to determine with certainty whether patient had a true seizure. If workup shows no acute findings, can consider starting patient on depakote for prevention. - PT/OT eval - patient refuses #AMS - concern regarding patient's mentation - he has alternating moments of wanting to leave AMA vs contuining care. He further states that he is being conspired against. - I explained at length that he is at high risk for fall and head injury, and his mobility is greatly limited by new onset back pain which developed after his fall - I am concerned that he may be becoming encephalopathic vs delirium, and I suspect there may be a degree of underlying dementia - SUBSCRIPTION AGENT has been consulted for cognitive eval # Hyponatremia - Na 128 --> 131 - IV NS 80 cc/hr #DM2 - A1c 9.0, takes no meds at home (previously on glimepiride, hold on DC) - ISS - accuchecks AC and HS ~250-300 - start levemir 10 units qhs - will need new PCP - diabetic education - consistent carbohydrate diet #Chest pain - resolved - not endorsed on ROS during admission - Trop neg x 2 - EKG showing no signs for ischemia - pain resolved - obtain repeat EKG #HTN - continue home meds: atenolol 50 mg qdaily (reduced from 100 mg daily) - added losartan 25 mg PO daily, amlodipine 5 mg qdaily - limit Na intake on DC - Normotensive today (BP goal < 150/90) #Hyperlipidemia - home med lovastatin # LE weakness - ROM limited by back pain - CT brain wnl, MRI/MRA wnl - PT/OT - patient refusing #Low back pain - CT abdo/pelvis showing L5/S1 spondylolisthesis, with disc bulge - spoke to Dr. Muller, to order MRI lumbar spine wo contrast, placed ortho consult - r/o disk prolapse - patient not having urinary or bowel incontinence, moving lower extremitites, no sensory change. Dispo: pending PT/OT eval. VS, I&O, 24H, Fishbone Vital Signs/I&O Vital Signs Date Time Temp Pulse Resp B/P (MAP) Pulse Ox O2 Delivery O2 Flow Rate FiO2 05/11/20 14:10 18 05/11/20 14:00 98.1 72 118/92 (101) 97 Room Air I&O- Last 24 Hours up to 6 AM 05/11/20 06:00 Intake Total 2590 ml Output Total 1900 ml Balance 690 ml Laboratory Data 24H LABS Laboratory Tests 2 05/10/20 20:48: Bedside Glucose (Misc Panel) 245H 05/11/20 06:36: Immature Granulocyte % (Auto) 0.4, Neutrophils (%) (Auto) 52.9, Lymphocytes (%) (Auto) 30.1, Monocytes (%) (Auto) 12.2H, Eosinophils (%) (Auto) 3.1H, Basophils (%) (Auto) 1.3H, Neutrophils # (Auto) 2.4, Lymphocytes # (Auto) 1.4L, Monocytes # (Auto) 0.6, Eosinophils # (Auto) 0.1, Basophils # (Auto) 0.1, Nucleated Red Blood Cells % (auto) 0.0, Anion Gap 8, Glomerular Filtration Rate > 60.0, Calcium Level 8.8, Phosphorus Level 3.2, Magnesium Level 1.9, Total Bilirubin 0.7, Aspartate Amino Transf (AST/SGOT) 18, Alanine Aminotransferase (ALT/SGPT) 28, Alkaline Phosphatase 124H, Total Protein 6.3L, Albumin 3.3, Albumin/Globulin Ratio 1.1, Triglycerides Level 244H, Total Cholesterol 274H, LDL Cholesterol 170H, Non-HDL Cholesterol (LDL + VLDL) 219, Total HDL Cholesterol 55, Cholesterol/HDL Ratio 4.981 05/11/20 13:29: Bedside Glucose (Misc Panel) 186H 05/11/20 16:23: Bedside Glucose (Misc Panel) 212H CBC/BMP Laboratory Tests 05/11/20 06:36 FLEX STOUT MD May 11, 2020 17:24
[2020-05-11] MEDS: ACETAMINOPHEN TAB 650MG DOSE (2X325MG) PO PRN (20:29)
[2020-05-11] MEDS: ATORVASTATIN 20 MG TAB PO SCH (20:29)
[2020-05-11] MEDS: LEVEMIR (INSULIN DETEMIR) 1 UNITS/0.01ML SC SCH (20:30)
[2020-05-11] MEDS: **NOTE PATIENT COMMENT** MISC XX ONE ×2 (20:31→20:40)
[2020-05-11] MEDS: LOSARTAN 25 MG TAB PO SCH (20:32)
[2020-05-11 22:00] VITALS: BP 125/87
[2020-05-12 06:00] VITALS: BP 138/88
[2020-05-12 06:34] LABS: BASO % 0.9 % (0.0-1.0); EOS # 0.2 10^3/uL (0.0-0.5); EOS % 3.5 % (0.0-3.0); HEMATOCRIT 42.9 % (42.0-52.0); HEMOGLOBIN 14.6 g/dl (13.5-17.5); LYMPH # 1.3 10^3/uL (1.5-5.0); LYMPH % 29.5 % (24.0-44.0); MEAN CORPUSCULAR HEMOGLOBIN 30.2 pg (27.0-33.0); MEAN CORPUSCULAR VOLUME 88.6 fl (80.0-96.0); MONO # 0.5 10^3/uL (0.0-0.8); MONO % 11.6 % (0.0-5.0); NEUTROPHILS # 2.3 10^3/uL (1.5-8.5); NEUTROPHILS % 54.3 % (36.0-66.0); PLATELET COUNT, AUTOMATED 245 10^3/uL (150-450); RED BLOOD COUNT 4.84 10^6/uL (4.30-6.10); WHITE BLOOD COUNT 4.2 10^3/uL (4.0-10.0)
[2020-05-12] MEDS: ACETAMINOPHEN TAB 650MG DOSE (2X325MG) PO PRN (06:49)
[2020-05-12 07:00] LABS: ALBUMIN 3.3 GM/DL (3.2-5.2); ALT/SGPT 28 U/L (12-78); BILIRUBIN,TOTAL 0.7 MG/DL (0.2-1.0); BLOOD UREA NITROGEN 27 MG/DL (7-18); CALCIUM LEVEL 8.9 MG/DL (8.8-10.2); CARBON DIOXIDE LEVEL 28 MEQ/L (21-32); CHLORIDE LEVEL 97 MEQ/L (98-107); CPK CREATINE PHOSPHOKINASE 123 U/L (39-308); CREATININE FOR GFR 0.84 MG/DL (0.70-1.30); GLOMERULAR FILTRATION RATE > 60.0 (>42); GLUCOSE, FASTING 198 MG/DL (70-100); MAGNESIUM LEVEL 1.9 MG/DL (1.8-2.4); PHOSPHORUS LEVEL 3.8 MG/DL (2.5-4.9); POTASSIUM SERUM 4.2 MEQ/L (3.5-5.1); SODIUM LEVEL 130 MEQ/L (136-145); TOTAL PROTEIN 6.2 GM/DL (6.4-8.2)
[2020-05-12] MEDS: HumaLOG INSULIN (NovoLOG) PER UNIT SC SCH ×3 (08:56→17:23)
[2020-05-12] MEDS: TAMSULOSIN 0.4 MG CAP PO SCH (08:57)
[2020-05-12] MEDS: VITAMIN D 1,000 INTERNATIONAL UNITS TABLET PO SCH (08:57)
[2020-05-12] MEDS: atenoloL 50 MG TAB PO SCH (08:58)
[2020-05-12] MEDS: amLODIPine 5 MG TAB PO SCH (08:58)
[2020-05-12] MEDS: ENOXAPARIN 40MG/0.4ML SYRINGE (J1650 PER 10MG) SC SCH (08:59)
[2020-05-12] MEDS: NS 1,000 ML IV SCH ×2 (09:01→20:18)
--- NOTE | 2020-05-12 13:13 | IPNPDOC ---
Date Seen The patient was seen on 05/12/20. Progress Note SUBJECTIVE: patient was seen at bedside. Doing well this morning. No acute events overnight. Patient is c/o severe low back pain. He is not cooperative with PT. States that he is being conspired against. He denies further testing for severe back pain. He denies chest pain at this time. He denies urinary or bowel incontinence. He refuses additional workup for lower back pain, orthopedics eval. OBJECTIVE PHYSICAL EXAMINATION: VITAL SIGNS: Please see below. General: NAD, comfortable HEENT: PERRLA, EOMI, sclerae clear Neck: supple, normal ROM, no JVD Resp: lungs CTAB, no wheeze, no rales, no crackles CVS: RRR, normal S1, S2, no murmurs Abdo: soft, no masses, no hepatosplenomegaly, BS+, no rebound tenderness Extremities: no edema, pulses 2+ MSK: no joint deformities, normal ROM. Severe pain to palpation at L5/S1. Neuro: moving all 4 extremities, patient is upset this morning, unable to perform complete neuro exam Psych: states that he is being robbed, he is being conspired again, AAO x 2-3 LABORATORY DATA, IMAGING STUDIES, MICROBIOLOGY: Please see below. Echocardiogram: ordered. DVT prophylaxis ordered?: Yes, lovenox ASSESSMENT AND PLAN: 75 yo M with a hx of HTN, DM2, PE (was on AC, stopped 3 mo ago), presenting to the ED after an episode of syncope. Prior recurrent syncopal episodes. Given presentation of confusion and memory loss after episodes, consider seizure activity. Patient's mobility significantly limited by low back pain. He is not willing to participate in PT/OT, and has alternating moments of wishing to leave AMA vs staying and receiving care. PROBLEMS: # syncope - cardiac vs neuro in nature. Seizures likely. - CT head, neck wnl - Tele showing no arrhythmia overnight. - Bilateral carotid US showing no stenosis. - check 2D echo - tsh, b12, folate wnl, vitamin D low (replace PO) - EEG performed, report pending - MRI/MRA showing no acute abnormality - neurology consult placed, discussed with Dr. Lambert. It is difficult to determine with certainty whether patient had a true seizure. If workup shows no acute findings, can consider starting patient on depakote for prevention. - PT/OT eval - patient refuses #AMS/delusions - concern regarding patient's mentation - he has alternating moments of wanting to leave AMA vs contuining care. He further states that he is being conspired against. - I explained at length that he is at high risk for fall and head injury, and his mobility is greatly limited by new onset back pain which developed after his fall - I am concerned that he may be becoming encephalopathic vs delirium, and I suspect there may be a degree of underlying dementia - ARTIST'S MODEL has been consulted for cognitive eval - psychiatry consulted for eval of delusions and decisional capacity # Hyponatremia - Na 128 --> 131 - IV NS 80 cc/hr #DM2 - A1c 9.0, takes no meds at home (previously on glimepiride, hold on DC) - ISS - accuchecks AC and HS - BGs controlled, goal 130-180 - start levemir 10 units qhs - will need new PCP - diabetic education - consistent carbohydrate diet #Chest pain - resolved - not endorsed on ROS during admission - Trop neg x 2 - EKG showing no signs for ischemia - pain resolved #HTN - continue home meds: atenolol 50 mg qdaily (reduced from 100 mg daily) - added losartan 25 mg PO daily, amlodipine 5 mg qdaily - limit Na intake on DC - Normotensive today (BP goal < 150/90) #Hyperlipidemia - home med lovastatin # LE weakness - ROM limited by back pain - CT brain wnl, MRI/MRA wnl - PT/OT - patient refusing #Low back pain - CT abdo/pelvis showing L5/S1 spondylolisthesis, with disc bulge - spoke to Dr. Muller, to order MRI lumbar spine wo contrast, placed ortho consult - r/o disk prolapse - patient not having urinary or bowel incontinence, moving lower extremitites, no sensory change. - patient has refused MRI lumbar spine, and exam by orthopedic surgery Dispo: pending PT/OT eval - patient refusing. Asking to leave AMA. Psychiatry consulted to help assess for decisional capacity. VS, I&O, 24H, Fishbone Vital Signs/I&O Vital Signs Date Time Temp Pulse Resp B/P (MAP) Pulse Ox O2 Delivery O2 Flow Rate FiO2 05/12/20 08:58 79 121/91 05/12/20 06:00 98.1 18 98 Room Air I&O- Last 24 Hours up to 6 AM 05/12/20 05:59 Intake Total 750 ml Output Total 775 ml Balance -25 ml Laboratory Data 24H LABS Laboratory Tests 2 05/11/20 13:29: Bedside Glucose (Misc Panel) 186H 05/11/20 16:23: Bedside Glucose (Misc Panel) 212H 05/11/20 20:04: Bedside Glucose (Misc Panel) 187H 05/12/20 06:00: Immature Granulocyte % (Auto) 0.2, Neutrophils (%) (Auto) 54.3, Lymphocytes (%) (Auto) 29.5, Monocytes (%) (Auto) 11.6H, Eosinophils (%) (Auto) 3.5H, Basophils (%) (Auto) 0.9, Neutrophils # (Auto) 2.3, Lymphocytes # (Auto) 1.3L, Monocytes # (Auto) 0.5, Eosinophils # (Auto) 0.2, Basophils # (Auto) 0.0, Nucleated Red Blood Cells % (auto) 0.0, Anion Gap 5L, Glomerular Filtration Rate > 60.0, Calcium Level 8.9, Phosphorus Level 3.8, Magnesium Level 1.9, Total Bilirubin 0.7, Aspartate Amino Transf (AST/SGOT) 16, Alanine Aminotransferase (ALT/SGPT) 28, Alkaline Phosphatase 124H, Total Creatine Kinase 123, Total Protein 6.2L, Albumin 3.3, Albumin/Globulin Ratio 1.1 05/12/20 11:47: Bedside Glucose (Misc Panel) 151H CBC/BMP Laboratory Tests 05/12/20 06:00 FLEX STOUT MD May 12, 2020 13:13
[2020-05-12 14:00] VITALS: BP 130/80
[2020-05-12] MEDS: LOSARTAN 25 MG TAB PO SCH (20:32)
[2020-05-12] MEDS: NORCO, ANEXSIA 5/325MG TABLET (HYDROcodone/ACETAMINOPHEN) PO PRN (20:32)
[2020-05-12] MEDS: ATORVASTATIN 20 MG TAB PO SCH (20:32)
[2020-05-12] MEDS: LEVEMIR (INSULIN DETEMIR) 1 UNITS/0.01ML SC SCH (20:33)
[2020-05-12 22:00] VITALS: BP 130/88
[2020-05-12] MEDS: methocarbamoL 500 MG TAB PO PRN (23:59)
[2020-05-13] MEDS: NS 1,000 ML IV SCH ×3 (05:07→23:55)
[2020-05-13] MEDS: NORCO, ANEXSIA 5/325MG TABLET (HYDROcodone/ACETAMINOPHEN) PO PRN (05:08)
[2020-05-13 06:00] VITALS: BP 133/87
[2020-05-13] MEDS: HumaLOG INSULIN (NovoLOG) PER UNIT SC SCH ×3 (07:30→18:26)
[2020-05-13] MEDS: TAMSULOSIN 0.4 MG CAP PO SCH (08:11)
[2020-05-13] MEDS: VITAMIN D 1,000 INTERNATIONAL UNITS TABLET PO SCH (08:11)
[2020-05-13] MEDS: ENOXAPARIN 40MG/0.4ML SYRINGE (J1650 PER 10MG) SC SCH (08:11)
[2020-05-13] MEDS: amLODIPine 5 MG TAB PO SCH (08:12)
[2020-05-13] MEDS: atenoloL 50 MG TAB PO SCH (08:12)
[2020-05-13 08:30] LABS: BASO # 0.1 10^3/uL (0.0-0.2); BASO % 1.3 % (0.0-1.0); EOS # 0.1 10^3/uL (0.0-0.5); EOS % 3.1 % (0.0-3.0); HEMATOCRIT 42.7 % (42.0-52.0); HEMOGLOBIN 14.6 g/dl (13.5-17.5); LYMPH # 1.4 10^3/uL (1.5-5.0); LYMPH % 30.6 % (24.0-44.0); MEAN CORPUSCULAR HEMOGLOBIN 30.2 pg (27.0-33.0); MEAN CORPUSCULAR HGB CONC 34.2 g/dl (32.0-36.5); MEAN CORPUSCULAR VOLUME 88.2 fl (80.0-96.0); MONO # 0.5 10^3/uL (0.0-0.8); MONO % 11.5 % (0.0-5.0); NEUTROPHILS # 2.4 10^3/uL (1.5-8.5); NEUTROPHILS % 53.3 % (36.0-66.0); PLATELET COUNT, AUTOMATED 233 10^3/uL (150-450); RED BLOOD COUNT 4.84 10^6/uL (4.30-6.10); WHITE BLOOD COUNT 4.5 10^3/uL (4.0-10.0)
[2020-05-13 08:43] LABS: ALBUMIN 3.2 GM/DL (3.2-5.2); ALT/SGPT 28 U/L (12-78); BILIRUBIN,TOTAL 0.7 MG/DL (0.2-1.0); BLOOD UREA NITROGEN 16 MG/DL (7-18); CALCIUM LEVEL 8.7 MG/DL (8.8-10.2); CARBON DIOXIDE LEVEL 28 MEQ/L (21-32); CHLORIDE LEVEL 97 MEQ/L (98-107); CREATININE FOR GFR 0.62 MG/DL (0.70-1.30); GLOMERULAR FILTRATION RATE > 60.0 (>42); GLUCOSE, FASTING 150 MG/DL (70-100); MAGNESIUM LEVEL 1.9 MG/DL (1.8-2.4); PHOSPHORUS LEVEL 3.2 MG/DL (2.5-4.9); POTASSIUM SERUM 3.8 MEQ/L (3.5-5.1); SODIUM LEVEL 132 MEQ/L (136-145); TOTAL PROTEIN 6.2 GM/DL (6.4-8.2)
--- NOTE | 2020-05-13 09:56 | ECGEPIP ---
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
--- NOTE | 2020-05-13 10:56 | MHCRPDOC ---
[facility] Consultation Consultation DATE OF CONSULTATION: 05/13/20 CONSULTATION REQUESTED BY: hospitalist service REASON FOR CONSULTATION: capacity and delirium. RELEVANT HISTORY: 75-year-old man with a history of reported dementia presents for syncope, he has had a complex course becoming confused with waxing and waning, during this time he comes irritable and demands to leave. When I met with him he was quite amenable, and more orientated to surroundings he reported that he did not want to leave but notice that he became confused at times saying things he didn't intend to mean. Additionally, there had been some concern about her suicidal statement made during his confusion episode, however he reports that he has no intentions of harming himself and has no suicidal thoughts. PAST PSYCHIATRIC HISTORY:. No history PAST MEDICAL HISTORY: neurocognitive disorder FAMILY HISTORY: denies any family psychiatric history PERSONAL AND SOCIAL HISTORY: The patient was born and raised in [place]. Resides in: [place] Marital Status: W / Children: has a daughter Employment: retired SUBSTANCE ABUSE HISTORY: Smoking: denies ETOH:. Denies Illicit Drugs:. Denies LEGAL HISTORY: none elicited . MENTAL STATUS EXAMINATION: General: [Well dressed with good hygiene] Speech: [Spontaneous and fluid] Thought processes: [Linear and logical] Thought content: [Future orientated] Abstract reasoning, and computation: [Intact] Description of associations: [Intact] Description of abnormal or psychotic thoughts:[Denies any suicidal or homicidal ideation. Denies any auditory or visual hallucinations. Does not appear to be responding to internal stimuli. Does not appear to be endorsing any bizarre or paranoid ideation.] Judgment: [fair] Insight: [fair] Orientation: [Alert and orientated 3] Recent and remote memory: mildly impaired Attention span and concentration:, mildly impaired Fund of knowledge: [Adequate] Mood: ["okay"] Affect: [Euthymic with a full range] DIAGNOSIS: 1. Unspecified neurocognitive disorder. PLAN: 1. Recommend Rozerm 8 milligrams nightly for delirium prophylaxis. 2. Unable to do capacity consult at this time is patient's not declining to leave, however, likely could have lack of capacity when he is confused, educated, attending provider on aspects 3.low risk for suicide, appears to be a product of confusion, no history and no current ideation will not likely need a sitter unless his confusion leads him to wonder Vital Signs Vital Signs Date Time Temp Pulse Resp B/P (MAP) Pulse Ox O2 Delivery O2 Flow Rate FiO2 05/13/20 08:12 82 168/99 05/13/20 06:00 97.3 16 97 Room Air Laboratory Data 24H Labs Laboratory Tests 2 05/12/20 11:47: Bedside Glucose (Misc Panel) 151H 05/12/20 16:51: Bedside Glucose (Misc Panel) 220H 05/12/20 20:17: Bedside Glucose (Misc Panel) 187H 05/13/20 06:17: Immature Granulocyte % (Auto) 0.2, Neutrophils (%) (Auto) 53.3, Lymphocytes (%) (Auto) 30.6, Monocytes (%) (Auto) 11.5H, Eosinophils (%) (Auto) 3.1H, Basophils (%) (Auto) 1.3H, Neutrophils # (Auto) 2.4, Lymphocytes # (Auto) 1.4L, Monocytes # (Auto) 0.5, Eosinophils # (Auto) 0.1, Basophils # (Auto) 0.1, Nucleated Red Blood Cells % (auto) 0.0, Anion Gap 7L, Glomerular Filtration Rate > 60.0, Calcium Level 8.7L, Phosphorus Level 3.2, Magnesium Level 1.9, Total Bilirubin 0.7, Aspartate Amino Transf (AST/SGOT) 17, Alanine Aminotransferase (ALT/SGPT) 28, Alkaline Phosphatase 124H, Total Protein 6.2L, Albumin 3.2, Albumin/Globulin Ratio 1.1 Home Medications Current Medications Current Medications Medications (Trade) Dose Ordered Sig/Sandra Route PRN Reason Start Time Stop Time Status Last Admin Dose Admin Acetaminophen (Tylenol Tab) 650 mg Q4HP PRN PO PAIN OR FEVER 05/10/20 00:00 05/12/20 06:49 Acetaminophen/ Hydrocodone Bitart ([place], Anexsia 5/325) 1 tab Q6HP PRN PO MILD/MODERATE PAIN (PS 1-7) 05/11/20 08:00 05/13/20 05:08 Amlodipine Besylate (Norvasc) 5 mg DAILY PO 05/09/20 20:15 05/13/20 08:12 Atenolol (Tenormin) 50 mg DAILY PO 05/10/20 09:00 05/13/20 08:12 Atorvastatin Calcium (Lipitor) 20 mg QHS PO 05/10/20 21:00 05/12/20 20:32 Dextrose (Dextrose 50%) 25 ml ASDIRECTED PRN IV SEE LABEL COMMENTS 05/09/20 18:15 Enoxaparin Sodium (Lovenox) 40 mg DAILY SC 05/10/20 09:00 05/13/20 08:11 Glucagon (Glucagon) 1 mg ASDIRECTED PRN SC SEE LABEL COMMENTS 05/09/20 18:15 Glucose (Glucose) 16 GM ASDIRECTED PRN PO SEE LABEL COMMENTS 05/09/20 18:15 Home Med (Med Rec Complete!) ASDIRECTED XX 05/09/20 19:15 05/09/20 19:07 DC Insulin Detemir (Levemir Insulin) 10 units QHS SC 05/10/20 21:00 05/12/20 20:33 Insulin Human Lispro (HumaLOG INSULIN) SEE PROTOCOL TABLE AC SC 05/10/20 07:30 05/12/20 17:23 Losartan Potassium (Cozaar) 25 mg DAILY@2100 PO 05/09/20 21:00 05/12/20 20:32 Methocarbamol (Robaxin) 500 mg Q6HP PRN PO back spasms 05/10/20 00:00 05/12/20 23:59 Sodium Chloride 1,000 ml @ 80 mls/hr [id number] IV 05/09/20 18:30 05/10/20 06:59 DC 05/09/20 21:43 Sodium Chloride 1,000 ml @ 80 mls/hr [id number] IV 05/10/20 08:30 05/10/20 20:59 DC 05/10/20 10:21 Sodium Chloride 1,000 ml @ 100 mls/hr Q10H IV 05/12/20 07:45 05/13/20 05:07 Tamsulosin HCl (Flomax) 0.4 mg DAILY PO 05/10/20 09:00 05/13/20 08:11 Vitamin D (Vitamin D) 2,000 units DAILY PO 05/10/20 09:00 05/13/20 08:11 Scheduled Atenolol (Atenolol) 100 Mg Tablet, 100 MG PO DAILY, (Reported) Glimepiride (Glimepiride) 4 Mg Tablet, 4 MG PO DAILY, (Reported) Lovastatin (Lovastatin) 40 Mg Tablet, 40 MG PO DAILY, (Reported) Miscellaneous Medications [Patient Comment] , (Reported) PATIENT HAS NOT TAKEN MEDICATIONS IN 2 TO 3 MONTHS. PATIENT WAS ALSO GETTING A BLOOD THINNER A SAMPLE FROM THE DR OFFICE TAKING ONCE DAILY, BUT DOES NOT RECALL THE NAME OF THE MEDICATION. Allergies Coded Allergies: morphine (Verified Allergy, Intermediate, HYPOTENSION, 05/09/20) SHAI MARC DO May 13, 2020 10:56
[2020-05-13] MEDS: ACETAMINOPHEN TAB 650MG DOSE (2X325MG) PO PRN (13:49)
[2020-05-13] MEDS: methocarbamoL 500 MG TAB PO PRN ×2 (13:49→19:58)
[2020-05-13 14:00] VITALS: BP 162/95
--- NOTE | 2020-05-13 14:25 | IPNPDOC ---
Date Seen The patient was seen on 05/13/20. Progress Note SUBJECTIVE: patient was seen at bedside. Doing well this morning. No acute events overnight. Patient is c/o severe low back pain. He is not cooperative with PT. States that he is being conspired against. He denies further testing for severe back pain. He denies chest pain at this time. He denies urinary or bowel incontinence. He refuses additional workup for lower back pain, orthopedics eval. OBJECTIVE PHYSICAL EXAMINATION: VITAL SIGNS: Please see below. General: NAD, comfortable HEENT: PERRLA, EOMI, sclerae clear Neck: supple, normal ROM, no JVD Resp: lungs CTAB, no wheeze, no rales, no crackles CVS: RRR, normal S1, S2, no murmurs Abdo: soft, no masses, no hepatosplenomegaly, BS+, no rebound tenderness Extremities: no edema, pulses 2+ MSK: no joint deformities, normal ROM. Severe pain to palpation at L5/S1. Neuro: moving all 4 extremities, patient is upset this morning, unable to perform complete neuro exam Psych: states that he is being robbed, he is being conspired again, AAO x 2-3 LABORATORY DATA, IMAGING STUDIES, MICROBIOLOGY: Please see below. Echocardiogram: ordered. DVT prophylaxis ordered?: Yes, lovenox ASSESSMENT AND PLAN: 75 yo M with a hx of HTN, DM2, PE (was on AC, stopped 3 mo ago), presenting to the ED after an episode of syncope. Prior recurrent syncopal episodes. Given presentation of confusion and memory loss after episodes, consider seizure activity. Patient's mobility significantly limited by low back pain. He is not willing to participate in PT/OT, and has alternating moments of wishing to leave AMA vs staying and receiving care. PROBLEMS: # syncope - cardiac vs neuro in nature. Seizures likely. - CT head, neck wnl - Tele showing no arrhythmia overnight. - Bilateral carotid US showing no stenosis. - check 2D echo - tsh, b12, folate wnl, vitamin D low (replace PO) - EEG performed, report pending - MRI/MRA showing no acute abnormality - neurology consult placed, discussed with Dr. Lambert. It is difficult to determine with certainty whether patient had a true seizure. If workup shows no acute findings, can consider starting patient on depakote for prevention. - PT/OT eval - patient refuses #AMS/delusions - concern regarding patient's mentation - I am concerned that he may be becoming encephalopathic vs delirium, and I suspect there may be a degree of underlying dementia - CUTTER OPERATOR TILE has been consulted for cognitive eval - psychiatry consulted for eval of delusions and decisional capacity - spoke with Dr. Pennington, capacity is related to waxing and waning mental state, therefore the decision to leave AMA is also dependent on active mental acuity. Recommending neuropsychiatric testing as outpatient. # Hyponatremia - Na 128 --> 132 - IV NS 80 cc/hr #DM2 - A1c 9.0, takes no meds at home (previously on glimepiride, hold on DC) - ISS - accuchecks AC and HS - BGs controlled, goal 130-180 - start levemir 10 units qhs - will need new PCP - diabetic education - consistent carbohydrate diet #Chest pain - resolved - not endorsed on ROS during admission - Trop neg x 2 - EKG showing no signs for ischemia - pain resolved #HTN - continue home meds: atenolol 50 mg qdaily (reduced from 100 mg daily) - added losartan 25 mg PO daily, amlodipine 5 mg qdaily - limit Na intake on DC - Normotensive today (BP goal < 150/90) #Hyperlipidemia - home med lovastatin # LE weakness - ROM limited by back pain - CT brain wnl, MRI/MRA wnl - PT/OT - assessed, not safe for DC, needs rehab after DC #Low back pain - CT abdo/pelvis showing L5/S1 spondylolisthesis, with disc bulge - spoke to Dr. Muller, to order MRI lumbar spine wo contrast, placed ortho consult - r/o disk prolapse - patient not having urinary or bowel incontinence, moving lower extremities, no sensory change. - patient has refused MRI lumbar spine, and exam by orthopedic surgery - ordered lumbar spine xray, results pending Dispo: pending PT/OT eval - not safe for DC, recommend rehab after DC VS, I&O, 24H, Fishbone Vital Signs/I&O Vital Signs Date Time Temp Pulse Resp B/P (MAP) Pulse Ox O2 Delivery O2 Flow Rate FiO2 05/13/20 14:00 97.6 78 19 162/95 (117) 96 Room Air I&O- Last 24 Hours up to 6 AM 9/19/20 06:00 Intake Total 2660 ml Output Total 2225 ml Balance 435 ml Laboratory Data 24H LABS Laboratory Tests 2 05/12/20 16:51: Bedside Glucose (Misc Panel) 220H 05/12/20 20:17: Bedside Glucose (Misc Panel) 187H 05/13/20 06:17: Immature Granulocyte % (Auto) 0.2, Neutrophils (%) (Auto) 53.3, Lymphocytes (%) (Auto) 30.6, Monocytes (%) (Auto) 11.5H, Eosinophils (%) (Auto) 3.1H, Basophils (%) (Auto) 1.3H, Neutrophils # (Auto) 2.4, Lymphocytes # (Auto) 1.4L, Monocytes # (Auto) 0.5, Eosinophils # (Auto) 0.1, Basophils # (Auto) 0.1, Nucleated Red Blood Cells % (auto) 0.0, Anion Gap 7L, Glomerular Filtration Rate > 60.0, Calcium Level 8.7L, Phosphorus Level 3.2, Magnesium Level 1.9, Total Bilirubin 0.7, Aspartate Amino Transf (AST/SGOT) 17, Alanine Aminotransferase (ALT/SGPT) 28, Alkaline Phosphatase 124H, Total Protein 6.2L, Albumin 3.2, Albumin/Globulin Ratio 1.1 05/13/20 11:55: Bedside Glucose (Misc Panel) 169H CBC/BMP Laboratory Tests 05/13/20 06:17 FLEX STOUT MD May 13, 2020 14:25
[2020-05-13] MEDS: RAMELTEON 8 MG TAB (ROZEREM) PO SCH (20:00)
[2020-05-13] MEDS: LOSARTAN 25 MG TAB PO SCH (20:00)
[2020-05-13] MEDS: ATORVASTATIN 20 MG TAB PO SCH (20:00)
[2020-05-13] MEDS: LEVEMIR (INSULIN DETEMIR) 1 UNITS/0.01ML SC SCH (20:36)
[2020-05-13 22:00] VITALS: BP 129/81
[2020-05-14] MEDS: NORCO, ANEXSIA 5/325MG TABLET (HYDROcodone/ACETAMINOPHEN) PO PRN (02:45)
[2020-05-14 06:00] VITALS: BP 148/88
[2020-05-14] MEDS: HumaLOG INSULIN (NovoLOG) PER UNIT SC SCH ×3 (07:30→17:01)
[2020-05-14 07:53] LABS: BASO # 0.1 10^3/uL (0.0-0.2); EOS # 0.1 10^3/uL (0.0-0.5); EOS % 2.7 % (0.0-3.0); HEMATOCRIT 42.4 % (42.0-52.0); HEMOGLOBIN 14.3 g/dl (13.5-17.5); LYMPH # 1.6 10^3/uL (1.5-5.0); LYMPH % 31.6 % (24.0-44.0); MEAN CORPUSCULAR HEMOGLOBIN 29.7 pg (27.0-33.0); MEAN CORPUSCULAR HGB CONC 33.7 g/dl (32.0-36.5); MEAN CORPUSCULAR VOLUME 88.1 fl (80.0-96.0); MONO # 0.6 10^3/uL (0.0-0.8); MONO % 10.7 % (0.0-5.0); NEUTROPHILS # 2.8 10^3/uL (1.5-8.5); NEUTROPHILS % 53.6 % (36.0-66.0); PLATELET COUNT, AUTOMATED 255 10^3/uL (150-450); RED BLOOD COUNT 4.81 10^6/uL (4.30-6.10); WHITE BLOOD COUNT 5.2 10^3/uL (4.0-10.0)
[2020-05-14 08:09] LABS: ALBUMIN 3.2 GM/DL (3.2-5.2); ALT/SGPT 28 U/L (12-78); BILIRUBIN,TOTAL 0.7 MG/DL (0.2-1.0); BLOOD UREA NITROGEN 15 MG/DL (7-18); CALCIUM LEVEL 8.4 MG/DL (8.8-10.2); CARBON DIOXIDE LEVEL 26 MEQ/L (21-32); CHLORIDE LEVEL 99 MEQ/L (98-107); CREATININE FOR GFR 0.54 MG/DL (0.70-1.30); GLOMERULAR FILTRATION RATE > 60.0 (>42); GLUCOSE, FASTING 159 MG/DL (70-100); MAGNESIUM LEVEL 1.8 MG/DL (1.8-2.4); PHOSPHORUS LEVEL 3.5 MG/DL (2.5-4.9); POTASSIUM SERUM 4.2 MEQ/L (3.5-5.1); SODIUM LEVEL 132 MEQ/L (136-145); TOTAL PROTEIN 5.9 GM/DL (6.4-8.2)
[2020-05-14] MEDS: ENOXAPARIN 40MG/0.4ML SYRINGE (J1650 PER 10MG) SC SCH (08:34)
[2020-05-14] MEDS: VITAMIN D 1,000 INTERNATIONAL UNITS TABLET PO SCH (08:35)
[2020-05-14] MEDS: atenoloL 50 MG TAB PO SCH (08:35)
[2020-05-14] MEDS: TAMSULOSIN 0.4 MG CAP PO SCH (08:36)
[2020-05-14] MEDS: amLODIPine 5 MG TAB PO SCH (08:36)
[2020-05-14] MEDS ORDERED: SODIUM CHLORIDE 0.9% 1000ML IV ONE (09:15)
[2020-05-14] MEDS ORDERED: SODIUM CHLORIDE 1 GM TAB PO ONE ×2 (09:15→10:00)
--- NOTE | 2020-05-14 11:07 | IPNPDOC ---
Date Seen The patient was seen on 05/14/20. Progress Note SUBJECTIVE: patient was seen at bedside. He is calm, cooperative this morning. He is alert and oriented to person, time and place. He reports that there were several nurses in the room last night, threatening to hurt him. Upon discussion with nursing, patient attempted to kick a FRUIT THINNER last night, and nursing staff went in the room to attempt to calm patient. CODE 25 was not called. Patient has no memory of attempting to kick or otherwise touch a staff member. He is distraught by this fact, and states that "I would never do that". He is most concerned about going home in order to take care of his dog. Further, he reports that he still drives on occasion. I discussed this with him and risks this poses in terms of safety toward himself and others. At this time, he understands that it is dangerous for him to drive, and describes thinking about the eventually of not driving; he states that he arranged his groceries to be delivered. At this time, he has no PCP with which to arrange follow up, which further poses a risk. At this time it is my clinical judgment that he is unsafe to be discharged without assistance services in place. I will coordinate with PFS (Hha) in the morning. Spoke to daughter, Ayesha again, she agrees that he should avoid driving, and she has even arranged for his meals to be delivered to his home. Patient agrees to stay, and does not wish to leave AMA at this time. OBJECTIVE PHYSICAL EXAMINATION: VITAL SIGNS: Please see below. General: NAD, comfortable HEENT: PERRLA, EOMI, sclerae clear Neck: supple, normal ROM, no JVD Resp: lungs CTAB, no wheeze, no rales, no crackles CVS: RRR, normal S1, S2, no murmurs Abdo: soft, no masses, no hepatosplenomegaly, BS+, no rebound tenderness Extremities: no edema, pulses 2+ MSK: no joint deformities, normal ROM. Severe pain to palpation at L5/S1. Neuro: moving all 4 extremities, patient is upset this morning, unable to perform complete neuro exam Psych: states that he is being robbed, he is being conspired again, AAO x 2-3 LABORATORY DATA, IMAGING STUDIES, MICROBIOLOGY: Please see below. Echocardiogram: ordered. DVT prophylaxis ordered?: Yes, lovejorgex ASSESSMENT AND PLAN: 75 yo M with a hx of HTN, DM2, PE (was on AC, stopped 3 mo ago), presenting to the ED after an episode of syncope. Prior recurrent syncopal episodes. Given presentation of confusion and memory loss after episodes, consider seizure activity. Patient's mobility significantly limited by low back pain. He is not willing to participate in PT/OT, and has alternating moments of wishing to leave AMA vs staying and receiving care. PROBLEMS: # syncope - cardiac vs neuro in nature. Seizures likely. - CT head, neck wnl - Tele showing no arrhythmia overnight. - Bilateral carotid US showing no stenosis. - check 2D echo - tsh, b12, folate wnl, vitamin D low (replace PO) - EEG performed - reviewed with Dr. Lambert - wnl - MRI/MRA showing no acute abnormality - neurology consult placed, discussed with Dr. Lambert. EEG wnl. Can start depakote - PT/OT eval - cleared from PT standpoint with RW and home PT #AMS/delusions - concern regarding patient's mentation - I am concerned that he may be becoming encephalopathic vs delirium, and I suspect there may be a degree of underlying dementia - LABORER SAWMILL has been consulted for cognitive eval - psychiatry consulted for eval of delusions and decisional capacity - spoke with Dr. Pennington, capacity is related to waxing and waning mental state, therefore the decision to leave AMA is also dependent on active mental acuity. ---- Recommending neuropsychiatric testing as outpatient. - It is my clinical judgement, # Hyponatremia - Na 128 --> 132 - urine osm 490 - urine sodium 124 - SIADH? - check cortisol stim test - nephro consult, discussed with Dr. Diamond #DM2 - A1c 9.0, takes no meds at home (previously on glimepiride, hold on DC) - ISS - accuchecks AC and HS - BGs controlled, goal 130-180 - start levemir 10 units qhs - will need new PCP - diabetic education - consistent carbohydrate diet #Chest pain - resolved - not endorsed on ROS during admission - Trop neg x 2 - EKG showing no signs for ischemia - pain resolved #HTN - continue home meds: atenolol 50 mg qdaily (reduced from 100 mg daily) - added losartan 25 mg PO daily, amlodipine 5 mg qdaily - limit Na intake on DC - Normotensive today (BP goal < 150/90) #Hyperlipidemia - home med lovastatin # LE weakness - ROM limited by back pain - CT brain wnl, MRI/MRA wnl - PT/OT - cleared from PT standpoint with RW and home PT #Low back pain - CT abdo/pelvis showing L5/S1 spondylolisthesis, with disc bulge - spoke to Dr. Muller, to order MRI lumbar spine wo contrast, placed ortho consult - r/o disk prolapse - patient not having urinary or bowel incontinence, moving lower extremities, no sensory change. - patient has refused MRI lumbar spine, and exam by orthopedic surgery - ordered lumbar spine xray, results pending Dispo: pending PFS assessment. PT/OT cleared for home with RW and home PT. VS, I&O, 24H, Fishbone Vital Signs/I&O Vital Signs Date Time Temp Pulse Resp B/P (MAP) Pulse Ox O2 Delivery O2 Flow Rate FiO2 05/14/20 08:36 75 05/14/20 08:35 124/81 05/14/20 06:00 97.7 18 98 Room Air I&O- Last 24 Hours up to 6 AM 05/14/20 06:00 Intake Total 2360 ml Output Total 1800 ml Balance 560 ml Laboratory Data 24H LABS Laboratory Tests 2 05/13/20 11:55: Bedside Glucose (Misc Panel) 169H 05/13/20 17:07: Bedside Glucose (Misc Panel) 173H 05/13/20 20:20: Bedside Glucose (Misc Panel) 199H 05/14/20 06:21: Immature Granulocyte % (Auto) 0.4, Neutrophils (%) (Auto) 53.6, Lymphocytes (%) (Auto) 31.6, Monocytes (%) (Auto) 10.7H, Eosinophils (%) (Auto) 2.7, Basophils (%) (Auto) 1.0, Neutrophils # (Auto) 2.8, Lymphocytes # (Auto) 1.6, Monocytes # (Auto) 0.6, Eosinophils # (Auto) 0.1, Basophils # (Auto) 0.1, Nucleated Red Blood Cells % (auto) 0.0, Anion Gap 7L, Glomerular Filtration Rate > 60.0, Calcium Level 8.4L, Phosphorus Level 3.5, Magnesium Level 1.8, Total Bilirubin 0.7, Aspartate Amino Transf (AST/SGOT) 17, Alanine Aminotransferase (ALT/SGPT) 28, Alkaline Phosphatase 115, Total Protein 5.9L, Albumin 3.2, Albumin/Globulin Ratio 1.2 CBC/BMP Laboratory Tests 05/14/20 06:21 FLEX STOUT MD May 14, 2020 11:07
[2020-05-14 12:45] LABS: SODIUM,RANDOM URINE 124 MEQ/L
[2020-05-14 13:04] LABS: OSMOLALITY URINE 490 MOSM/KG (500-800)
[2020-05-14 14:00] VITALS: BP 140/78
[2020-05-14] MEDS: ACETAMINOPHEN TAB 650MG DOSE (2X325MG) PO PRN (14:08)
[2020-05-14] MEDS: methocarbamoL 500 MG TAB PO PRN (14:08)
[2020-05-14 15:06] LABS: BLOOD UREA NITROGEN 17 MG/DL (7-18); CALCIUM LEVEL 8.5 MG/DL (8.8-10.2); CARBON DIOXIDE LEVEL 26 MEQ/L (21-32); CHLORIDE LEVEL 99 MEQ/L (98-107); CREATININE FOR GFR 0.72 MG/DL (0.70-1.30); GLOMERULAR FILTRATION RATE > 60.0 (>42); GLUCOSE, FASTING 228 MG/DL (70-100); POTASSIUM SERUM 3.9 MEQ/L (3.5-5.1); SODIUM LEVEL 131 MEQ/L (136-145)
[2020-05-14] MEDS: FOLIC ACID 1 MG TAB PO SCH (16:56)
[2020-05-14] MEDS: RAMELTEON 8 MG TAB (ROZEREM) PO SCH (21:34)
[2020-05-14] MEDS: ATORVASTATIN 20 MG TAB PO SCH (21:36)
[2020-05-14] MEDS: LOSARTAN 25 MG TAB PO SCH (21:36)
[2020-05-14] MEDS: LEVEMIR (INSULIN DETEMIR) 1 UNITS/0.01ML SC SCH (21:36)
[2020-05-14 22:00] VITALS: BP 141/80
[2020-05-15] MEDS: NORCO, ANEXSIA 5/325MG TABLET (HYDROcodone/ACETAMINOPHEN) PO PRN ×2 (01:03→19:01)
--- NOTE | 2020-05-15 06:54 | ECHO ---
DATE OF PROCEDURE: 05/10/2020 Age: Gender: Male Height: 193 cm Weight: 115 kg REFERRING PHYSICIAN: Iglesia Gordillo MD INDICATION: Syncope. MEASUREMENTS: 2D Measurements: Intraventricular septum 1.21 cm Posterior wall 1.06 cm Left ventricle diastole 4.4 cm Left atrium 3.2 cm Aortic root 3.5 cm Doppler Measurements: No aortic stenosis No aortic regurgitation Aortic valve velocity 88.8 cm/s LVOT velocity 72.2 cm/s No mitral regurgitation No mitral stenosis Mitral E velocity 63.2 cm/s Mitral A velocity 77.0 cm/s Mitral deceleration time 236 msec No tricuspid regurgitation No pulmonic regurgitation Pulmonary artery systolic pressure of 16 mmHg MITRAL ANNULAR TISSUE DOPPLER E prime septal 4.1 cm/s, E prime lateral 6.2 cm/s DESCRIPTION: Rhythm was sinus. This was a moderately technically difficult echocardiogram. No pericardial effusion. This was a 2D, M-mode, color flow Doppler, and pulsed wave Doppler examination including mitral annular tissue Doppler. CONCLUSIONS: 1. Normal left ventricle internal dimensions and wall thickness. Normal regional LV wall motion and wall thickening. Normal LV systolic function. LVEF 60% by visual estimate. Grade 1 LV diastolic dysfunction. 2. Very mild aortic valve sclerosis of 3-cuspid aortic valve. 3. Otherwise normal appearing echocardiogram Doppler findings. MTDD
[2020-05-15] MEDS: HumaLOG INSULIN (NovoLOG) PER UNIT SC SCH ×3 (08:21→18:01)
[2020-05-15] MEDS: TAMSULOSIN 0.4 MG CAP PO SCH (08:21)
[2020-05-15] MEDS: ENOXAPARIN 40MG/0.4ML SYRINGE (J1650 PER 10MG) SC SCH (08:21)
[2020-05-15] MEDS: amLODIPine 5 MG TAB PO SCH (08:23)
[2020-05-15] MEDS: VITAMIN D 1,000 INTERNATIONAL UNITS TABLET PO SCH (08:24)
[2020-05-15] MEDS: SODIUM CHLORIDE 1 GM TAB PO SCH ×3 (08:24→21:45)
[2020-05-15] MEDS: FOLIC ACID 1 MG TAB PO SCH (08:24)
[2020-05-15] MEDS: atenoloL 50 MG TAB PO SCH (08:24)
[2020-05-15] MEDS ORDERED: COSYNTROPIN 0.25 MG/ML VIAL (J0834 PER 0.25MG) IV ONE (09:00)
[2020-05-15 09:18] LABS: BASO % 0.7 % (0.0-1.0); EOS # 0.1 10^3/uL (0.0-0.5); EOS % 1.9 % (0.0-3.0); HEMATOCRIT 43.9 % (42.0-52.0); HEMOGLOBIN 15.5 g/dl (13.5-17.5); LYMPH # 1.3 10^3/uL (1.5-5.0); LYMPH % 22.7 % (24.0-44.0); MEAN CORPUSCULAR HEMOGLOBIN 30.7 pg (27.0-33.0); MEAN CORPUSCULAR HGB CONC 35.3 g/dl (32.0-36.5); MEAN CORPUSCULAR VOLUME 86.9 fl (80.0-96.0); MONO # 0.4 10^3/uL (0.0-0.8); MONO % 6.6 % (0.0-5.0); NEUTROPHILS # 3.9 10^3/uL (1.5-8.5); NEUTROPHILS % 67.8 % (36.0-66.0); PLATELET COUNT, AUTOMATED 267 10^3/uL (150-450); RED BLOOD COUNT 5.05 10^6/uL (4.30-6.10); WHITE BLOOD COUNT 5.8 10^3/uL (4.0-10.0)
[2020-05-15 09:45] LABS: ALT/SGPT 35 U/L (12-78); BILIRUBIN,TOTAL 0.8 MG/DL (0.2-1.0); BLOOD UREA NITROGEN 16 MG/DL (7-18); CARBON DIOXIDE LEVEL 26 MEQ/L (21-32); CHLORIDE LEVEL 97 MEQ/L (98-107); CREATININE FOR GFR 0.75 MG/DL (0.70-1.30); GLOMERULAR FILTRATION RATE > 60.0 (>42); GLUCOSE, FASTING 215 MG/DL (70-100); SODIUM LEVEL 130 MEQ/L (136-145)
[2020-05-15 09:46] LABS: ALBUMIN 3.4 GM/DL (3.2-5.2)
[2020-05-15 14:00] VITALS: BP 133/72
[2020-05-15] MEDS: ACETAMINOPHEN TAB 650MG DOSE (2X325MG) PO PRN (15:31)
[2020-05-15] MEDS ORDERED: DIVALPROEX 250MG *ER* TAB PO SCH (16:00)
[2020-05-15] MEDS ORDERED: FINASTERIDE 5 MG TAB PO SCH (21:00)
[2020-05-15] MEDS: RAMELTEON 8 MG TAB (ROZEREM) PO SCH (21:44)
[2020-05-15] MEDS: DIVALPROEX 250 MG TAB PO SCH (21:45)
[2020-05-15] MEDS: ATORVASTATIN 20 MG TAB PO SCH (21:45)
[2020-05-15] MEDS: LOSARTAN 25 MG TAB PO SCH (21:45)
[2020-05-15] MEDS: LEVEMIR (INSULIN DETEMIR) 1 UNITS/0.01ML SC SCH (21:46)
[2020-05-15 22:00] VITALS: BP 127/69
--- NOTE | 2020-05-15 22:11 | IPNPDOC ---
Date Seen The patient was seen on 05/15/20. Progress Note SUBJECTIVE: patient seen and examined at bedside today. He is alert and oriented x 3. No acute overnight events. Patient is not asking to leave AMA at this time and is in agreement for establishment of some additional social director, especially a new primary care doctor. OBJECTIVE PHYSICAL EXAMINATION: VITAL SIGNS: Please see below. General: NAD, comfortable HEENT: PERRLA, EOMI, sclerae clear Neck: supple, normal ROM, no JVD Resp: lungs CTAB, no wheeze, no rales, no crackles CVS: RRR, normal S1, S2, no murmurs Abdo: soft, no masses, no hepatosplenomegaly, BS+, no rebound tenderness Extremities: no edema, pulses 2+ Rectal exam: preserved perineal sensation. Intact (firm) voluntary rectal tone. MSK: no joint deformities, normal ROM. Back pain mild to palpation at L5/S1. Neuro: moving all 4 extremities, patient is upset this morning, unable to perform complete neuro exam Psych: states that he is being robbed, he is being conspired again, AAO x 2-3 LABORATORY DATA, IMAGING STUDIES, MICROBIOLOGY: Please see below. Echocardiogram: ordered. DVT prophylaxis ordered?: Yes, lovenox ASSESSMENT AND PLAN: 75 yo M with a hx of HTN, DM2, PE (was on AC, stopped 3 mo ago), presenting to the ED after an episode of syncope. Prior recurrent syncopal episodes. Given presentation of confusion and memory loss after episodes, consider seizure activity. Patient's mobility significantly limited by low back pain. He is not willing to participate in PT/OT, and has alternating moments of wishing to leave AMA vs staying and receiving care. PROBLEMS: # syncope - cardiac vs neuro in nature. Seizures likely. - CT head, neck wnl - Tele showing no arrhythmia overnight. - Bilateral carotid US showing no stenosis. - check 2D echo - tsh, b12, folate wnl, vitamin D low (replace PO) - EEG performed - reviewed with Dr. Lambert - wnl - MRI/MRA showing no acute abnormality - neurology consult placed, discussed with Dr. Lambert. EEG wnl. Can start depakote DR 250 mg BID. - PT/OT eval - cleared for discharge from PT and OT standpoint with RW and home PT, #Delirium - patient has been denostrated to while admitted - he was instructed that driving is not safe, and he is recommended to avoid driving a vehicle until he follows up with PCP and undergoes formal neuropchiatric/neurocognitive evaluation. Patient's daughter was informed that driving is not recommended at this time. - financial services sales representative consulted, planning for transportation services, home health, home nursing visit # Hyponatremia - Na 128 --> 132 - urine osm 490 - urine sodium 124 - SIADH - cortisol stim test wnl - nephro consult, discussed with Dr. Diamond, agree with suspected SIADH -started salt tabs 1 g TID #DM2 - A1c 9.0, takes no meds at home (previously on glimepiride, hold on DC) - ISS - accuchecks AC and HS - BGs controlled, goal 130-180 - start levemir 10 units qhs - will need new PCP - diabetic education - consistent carbohydrate diet #Chest pain - resolved - not endorsed on ROS during admission - Trop neg x 2 - EKG showing no signs for ischemia - pain resolved #HTN - continue home meds: atenolol 50 mg qdaily (reduced from 100 mg daily) - added losartan 25 mg PO daily, amlodipine 5 mg qdaily - limit Na intake on DC - Normotensive today (BP goal < 150/90) #Hyperlipidemia - home med lovastatin # LE weakness - ROM limited by back pain - CT brain wnl, MRI/MRA wnl - PT/OT - cleared from PT standpoint with RW and home PT #Low back pain - CT abdo/pelvis showing L5/S1 spondylolisthesis, with disc bulge - spoke to Dr. Muller, to order MRI lumbar spine wo contrast, placed ortho consult - r/o disk prolapse - patient not having urinary or bowel incontinence, moving lower extremities, no sensory change. - patient has refused MRI lumbar spine, and exam by orthopedic surgery - lumbar Xray, no acute fractures - normal rectal exam for rectal tone, sensation - urinary retention improved on standing up Dispo: PT/OT cleared for home with RW and home PT. financial services sales representative consulted for home health, transportation services. PCP to be established in resident clinic, appointment will be finalized in the morning. VS, I&O, 24H, Fishbone Vital Signs/I&O Vital Signs Date Time Temp Pulse Resp B/P (MAP) Pulse Ox O2 Delivery O2 Flow Rate FiO2 05/15/20 21:45 127/69 05/15/20 19:01 18 Room Air 05/15/20 14:00 97.8 68 96 l I&O- Last 24 Hours up to 6 AM 05/15/20 06:00 Intake Total 960 ml Output Total 2050 ml Balance -1090 ml Laboratory Data 24H LABS Laboratory Tests 2 05/15/20 05:03: Bedside Glucose (Misc Panel) 146H 05/15/20 08:33: Immature Granulocyte % (Auto) 0.3, Neutrophils (%) (Auto) 67.8H, Lymphocytes (%) (Auto) 22.7L, Monocytes (%) (Auto) 6.6H, Eosinophils (%) (Auto) 1.9, Basophils (%) (Auto) 0.7, Neutrophils # (Auto) 3.9, Lymphocytes # (Auto) 1.3L, Monocytes # (Auto) 0.4, Eosinophils # (Auto) 0.1, Basophils # (Auto) 0.0, Nucleated Red Blood Cells % (auto) 0.0, Anion Gap 7L, Glomerular Filtration Rate > 60.0, Calcium Level 9.0, Total Bilirubin 0.8, Aspartate Amino Transf (AST/SGOT) 26, Alanine Aminotransferase (ALT/SGPT) 35, Alkaline Phosphatase 124H, Total Protein 7.0, Albumin 3.4, Albumin/Globulin Ratio 0.9 05/15/20 09:00: Cortisol Response to Stimulation Cortisol Baseline 05/15/20 11:39: Bedside Glucose (Misc Panel) 220H 05/15/20 17:07: Bedside Glucose (Misc Panel) 163H 05/15/20 20:27: Bedside Glucose (Misc Panel) 196H CBC/BMP Laboratory Tests 05/15/20 08:33 FLEX STOUT MD May 15, 2020 22:11
[2020-05-16 06:00] VITALS: BP 124/66
[2020-05-16 06:04] LABS: BASO # 0.1 10^3/uL (0.0-0.2); BASO % 0.8 % (0.0-1.0); EOS # 0.2 10^3/uL (0.0-0.5); EOS % 2.8 % (0.0-3.0); HEMATOCRIT 44.8 % (42.0-52.0); HEMOGLOBIN 15.2 g/dl (13.5-17.5); LYMPH # 1.9 10^3/uL (1.5-5.0); LYMPH % 32.1 % (24.0-44.0); MEAN CORPUSCULAR HEMOGLOBIN 30.1 pg (27.0-33.0); MEAN CORPUSCULAR HGB CONC 33.9 g/dl (32.0-36.5); MEAN CORPUSCULAR VOLUME 88.7 fl (80.0-96.0); MONO # 0.6 10^3/uL (0.0-0.8); MONO % 9.4 % (0.0-5.0); NEUTROPHILS # 3.3 10^3/uL (1.5-8.5); NEUTROPHILS % 54.6 % (36.0-66.0); PLATELET COUNT, AUTOMATED 249 10^3/uL (150-450); RED BLOOD COUNT 5.05 10^6/uL (4.30-6.10)
[2020-05-16 06:38] LABS: BLOOD UREA NITROGEN 25 MG/DL (7-18); CALCIUM LEVEL 8.8 MG/DL (8.8-10.2); CARBON DIOXIDE LEVEL 29 MEQ/L (21-32); CHLORIDE LEVEL 100 MEQ/L (98-107); CREATININE FOR GFR 0.75 MG/DL (0.70-1.30); GLOMERULAR FILTRATION RATE > 60.0 (>42); GLUCOSE, FASTING 148 MG/DL (70-100); POTASSIUM SERUM 4.3 MEQ/L (3.5-5.1); SODIUM LEVEL 135 MEQ/L (136-145)
[2020-05-16] MEDS: HumaLOG INSULIN (NovoLOG) PER UNIT SC SCH ×2 (08:51→12:49)
[2020-05-16] MEDS: ENOXAPARIN 40MG/0.4ML SYRINGE (J1650 PER 10MG) SC SCH (09:36)
[2020-05-16] MEDS: FOLIC ACID 1 MG TAB PO SCH (09:36)
[2020-05-16 09:38] VITALS: BP 130/71
[2020-05-16] MEDS: amLODIPine 5 MG TAB PO SCH (09:38)
[2020-05-16] MEDS: DIVALPROEX 250 MG TAB PO SCH (09:39)
[2020-05-16] MEDS: TAMSULOSIN 0.4 MG CAP PO SCH (09:39)
[2020-05-16] MEDS: atenoloL 50 MG TAB PO SCH (09:39)
[2020-05-16] MEDS: VITAMIN D 1,000 INTERNATIONAL UNITS TABLET PO SCH (09:39)
[2020-05-16] MEDS: SODIUM CHLORIDE 1 GM TAB PO SCH (09:39)
[2020-05-16] MEDS ORDERED: FLOM0.4C39 PO (11:36)
[2020-05-16] MEDS ORDERED: AMLO1TAB24 PO (11:36)
[2020-05-16] MEDS ORDERED: SODI1TAB6 PO (11:36)
[2020-05-16] MEDS ORDERED: GLIM4TAB5 PO (11:36)
[2020-05-16] MEDS ORDERED: ATEN50TA2 PO (11:36)
[2020-05-16] MEDS ORDERED: LOVA40TA PO (11:36)
[2020-05-16] MEDS ORDERED: DEPA250T32 PO (11:36)
[2020-05-16] MEDS ORDERED: D31000TA2 PO (11:36)
[2020-05-16] MEDS ORDERED: COZA1TAB PO (11:36)
[2020-05-16] MEDS ORDERED: FINA5TAB2 PO (11:36)
[2020-05-16 14:00] VITALS: BP 122/69
--- NOTE | 2020-05-16 18:49 | DS.PDOC ---
Discharge Summary General Date of Admission May 09, 2020 at 18:01 Date of Discharge 05/16/20 Attending Physician: Marcie Escalante MD Discharge Summary ADMITTING DIAGNOSES: 1. Syncope 2. Hyponatremia DISCHARGE DIAGNOSES: 1. Syncope likely 2/2 to vasovagal episodes vs. seizures 2. 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 DM2 4. HTN 5. Hyperlipidemia 6. LE weakness 7. Unspecified neurocognitive disorder CHIEF COMPLAINT: Syncope. HISTORY OF PRESENT ILLNESS: 75 yo M with a hx of HTN, DM2, PE syncopal episodes, presented to the ED after he found himself on his kitchen floor today. He states that he was making a sandwich, and felt a funny feeling in his arms. Next thing he remembers is his dog licking his face. He crawled to the door, where his neighbors noticed him and called EMS. He denies chest pain, SOB, palpitations, headache, fevers, chills, n/v/d. He was last admitted to [facility] in 2007 for a syncopal episode (prior consults note 5 prior syncopal episodes), for which he received a cardiac and neuro exam. He was assessed by neurology. Clinic features at the time were co nsistent with syncope 2/2 to seizure like activity. EEG was wnl. MRA showed possible R ophthalmic ICA and RCA narrowing (some artifact was noted). Patient states that he has not taken his medications for the past 2-3 months. He reports being diagnosed with a PE for which he took AC (suspect NOAC) at [facility], but that he stopped taking AC 3 months ago. He states that his PCP was Dr. Rushing but he is no longer being seen. He lost 5 immediate family members in the past few months, and he has been neglecting his health due to bereavement and supporting his daughter (lost her recently). HOSPITAL COURSE: The patient had no additional syncopal episodes after admission. US carotid arteries was neg, CT head and neck were found to be wnl. Echocardiogram and carotid US did not show any acute concerning findings. Telemetry did not find arrhythmias as cause. There was a concern for possible seizures and EEG was done, it was wnl. Case discussed with dr. Lambert (neurology). MRI/MRA neg for acute abnormality as well. He was started on depakote BID. Hyponatremia improved slowl y with salt tablets, found to be acute on chronic and possibly SIADH? per provider notes. nephrology was consulted. Psychiatry was consulted to determine capacity to make medical decision and for delerium which was concerning, apparently new for patient. It was recommended to start on rozerm 8 milligrams nightly for delirium prophylaxis. They were unable to do capacity consult at this time is patient's not declining to leave, however, likely could have lack of capacity when he is confused, educated, attending provider on aspects. It was suggested to have neuropsychiatric testing as o/p but not while inpatient. Patient would have episodes of agitation and confusion at night but would not remember the next day, all of which was concerning for possible dementia/sundowning. Patient was evaluated by physical therapy who cleared him for discharge with rolling walker. As patient was found to be able to make his own decisions and do well with rolling walker with PT, he was discharged home on 05/16/20. I discussed with PFS the importance of setting up follow up with PCP, as patient states his prior one had dropped him. All scripts were sent to the pharmacy. PFS had been in contact with family this entire hospital stay and they are to be following up with patient. On discharge, patient denied chest pain, SOB, fevers, chills, n/v/d, abdominal pain, dizziness, lightheadedness. DISCHARGE MEDICATIONS: Please see below. ALLERGIES: Please see below. PHYSICAL EXAMINATION ON DISCHARGE: VS: Please see below General: NAD, comfortable HEENT: PERRLA, EOMI, sclerae clear Neck: supple, normal ROM, no JVD Resp: lungs CTAB, no wheeze, no rales, no crackles CVS: RRR, normal S1, S2, no murmurs Abdo: soft, no masses, no hepatosplenomegaly, BS+, no rebound tenderness Extremities: no edema, pulses 2+ MSK: no joint deformities, normal ROM. Back pain mild to palpation at L5/S1. Neuro: CN 2-12 intact, no focal deficits Psych: AAO x 3, appropriate IMAGING: Please see transcribed reports ACTIVITY: as tolerated with RW DIET: Regular diet DISCHARGE PLAN/instructions: 1. Discharge home with f/u with new provider 2. Recommend neuropsychiatric evaluation as o/p 3. Sent in all new scripts for medications, new and old DISPOSITION: 01 Home, Self-Care. DISCHARGE CONDITION: Stable TIME SPENT ON DISCHARGE: Greater than 30 minutes. Vital Signs/I&Os Vital Signs Date Time Temp Pulse Resp B/P (MAP) Pulse Ox O2 Delivery O2 Flow Rate FiO2 05/16/20 14:00 97.9 69 17 122/69 (86) 99 Room Air I&O- Last 24 Hours up to 6 AM0 05/16/20 06:00 Intake Total 600 ml Output Total 1550 ml Balance -950 ml Laboratory Data Labs 24H Laboratory Tests 2 05/15/20 20:27: Bedside Glucose (Misc Panel) 196H 05/16/20 05:18: Immature Granulocyte % (Auto) 0.3, Neutrophils (%) (Auto) 54.6, Lymphocytes (%) (Auto) 32.1, Monocytes (%) (Auto) 9.4H, Eosinophils (%) (Auto) 2.8, Basophils (%) (Auto) 0.8, Neutrophils # (Auto) 3.3, Lymphocytes # (Auto) 1.9, Monocytes # (Auto) 0.6, Eosinophils # (Auto) 0.2, Basophils # (Auto) 0.1, Nucleated Red Blood Cells % (auto) 0.0, Anion Gap 6L, Glomerular Filtration Rate > 60.0, Calcium Level 8.8 05/16/20 05:57: Bedside Glucose (Misc Panel) 159H 05/16/20 12:16: Bedside Glucose (Misc Panel) 206H CBC/BMP Laboratory Tests 05/16/20 05:18 FSBS Laboratory Tests Test 05/15/20 20:27 05/16/20 05:57 05/16/20 12:16 Range/Units Bedside Glucose (Misc Panel) 196 159 206 83-110 MG/DL Discharge Medications Scheduled Amlodipine Besylate (Amlodipine Besylate) 5 Mg Tablet, 5 MG PO DAILY Atenolol (Atenolol) 50 Mg Tablet, 50 MG PO DAILY Cholecalciferol (Vitamin D3) (Vitamin D3) 1,000 Unit Tablet, 2,000 UNITS PO DAILY Divalproex Sodium (Depakote) 250 Mg Tablet.dr, 250 MG PO BID Finasteride (Finasteride) 5 Mg Tablet, 5 MG PO QHS Glimepiride (Glimepiride) 4 Mg Tablet, 4 MG PO DAILY Losartan Potassium (Cozaar) 25 Mg Tablet, 25 MG PO DAILY@2100 Lovastatin (Lovastatin) 40 Mg Tablet, 40 MG PO DAILY Sodium Chloride (Sodium Chloride) 1 Gm Tablet, 1 GM PO TID Tamsulosin HCl (Flomax) 0.4 Mg Capsule, 0.4 MG PO DAILY Allergies Coded Allergies: morphine (Verified Allergy, Intermediate, HYPOTENSION, 05/09/20) Current Medications Current Medications Medications (Trade) Dose Ordered Sig/Sandra Route PRN Reason Start Time Stop Time Status Last Admin Dose Admin Acetaminophen (Tylenol Tab) 650 mg Q4HP PRN PO PAIN OR FEVER 05/10/20 00:00 05/16/20 15:11 DC 05/15/20 15:31 Acetaminophen/ Hydrocodone Bitart (Cascade, Anexsia 5/325) 1 tab Q6HP PRN PO MILD/MODERATE PAIN (PS 1-7) 05/11/20 08:00 05/16/20 15:11 DC 05/15/20 19:01 Amlodipine Besylate (Norvasc) 5 mg DAILY PO 05/09/20 20:15 05/16/20 15:11 DC 05/16/20 09:38 Atenolol (Tenormin) 50 mg DAILY PO 05/10/20 09:00 05/16/20 15:11 DC 05/16/20 09:39 Atorvastatin Calcium (Lipitor) 20 mg QHS PO 05/10/20 21:00 05/16/20 15:11 DC 05/15/20 21:45 Dextrose (Dextrose 50%) 25 ml ASDIRECTED PRN IV SEE LABEL COMMENTS 05/09/20 18:15 05/16/20 15:11 DC Divalproex Sodium (Depakote Er) 250 mg TID PO 05/15/20 16:00 05/15/20 14:41 DC Divalproex Sodium (Depakote) 250 mg BID PO 05/15/20 21:00 05/16/20 15:11 DC 05/16/20 09:39 Enoxaparin Sodium (Lovenox) 40 mg DAILY SC 05/10/20 09:00 05/16/20 15:11 DC 05/16/20 09:36 Finasteride (Proscar) 5 mg QHS PO 05/15/20 21:00 05/16/20 15:11 DC 05/15/20 21:45 Folic Acid (Folic Acid) 1 mg DAILY PO 05/14/20 16:30 05/16/20 15:11 DC 05/16/20 09:36 Glucagon (Glucagon) 1 mg ASDIRECTED PRN SC SEE LABEL COMMENTS 05/09/20 18:15 05/16/20 15:11 DC Glucose (Glucose) 16 GM ASDIRECTED PRN PO SEE LABEL COMMENTS 05/09/20 18:15 05/16/20 15:11 DC Home Med (Med Rec Complete!) ASDIRECTED XX 05/09/20 19:15 05/09/20 19:07 DC Insulin Detemir (Levemir Insulin) 10 units QHS SC 05/10/20 21:00 05/16/20 15:11 DC 05/15/20 21:46 Insulin Human Lispro (HumaLOG INSULIN) SEE PROTOCOL TABLE AC SC 05/10/20 07:30 05/16/20 15:11 DC 05/16/20 12:49 Losartan Potassium (Cozaar) 25 mg DAILY@2100 PO 05/09/20 21:00 05/16/20 15:11 DC 05/15/20 21:45 Methocarbamol (Robaxin) 500 mg Q6HP PRN PO back spasms 05/10/20 00:00 05/14/20 21:05 DC 05/14/20 14:08 Ramelteon (Rozerem) 8 mg QHS PO 05/13/20 21:00 05/16/20 15:11 DC 05/15/20 21:44 Sodium Chloride 1,000 ml @ 80 mls/hr [id number] IV 05/09/20 18:30 05/10/20 06:59 DC 05/09/20 21:43 Sodium Chloride 1,000 ml @ 80 mls/hr [id number] IV 05/10/20 08:30 05/10/20 20:59 DC 05/10/20 10:21 Sodium Chloride 1,000 ml @ 100 mls/hr Q10H IV 05/12/20 07:45 05/14/20 09:17 DC 05/13/20 23:55 Sodium Chloride (Sodium Chloride) 1 gm TID PO 05/15/20 09:00 05/16/20 15:11 DC 05/16/20 09:39 Tamsulosin HCl (Flomax) 0.4 mg DAILY PO 05/10/20 09:00 05/16/20 15:11 DC 05/16/20 09:39 Vitamin D (Vitamin D) 2,000 units DAILY PO 05/10/20 09:00 05/16/20 15:11 DC 05/16/20 09:39 Marcie Escalante MD May 16, 2020 18:49
--- NOTE | 2020-05-17 06:18 | EEG ---
DATE OF STUDY: 05/11/2020 REFERRING PHYSICIAN: Dr. Iglesia Gordillo DIAGNOSIS: Episode of loss of consciousness, rule out seizure. EEG #: [id number] HISTORY: The patient is a 75-year-old man who has a history of passing out spells in the past and he found himself again on the kitchen floor. He had no idea as to what happened and this episode was unwitnessed. He felt a funny sensation in his arms before he passed out. TECHNICAL DESCRIPTION: This digital electroencephalogram (EEG) was recorded by 21 scalp, ear, and two electrocardiogram (EKG) electrodes and was reviewed in bipolar and referential montages following a reformatting in 10-20 international electrode placement system. CURRENT MEDICATIONS: - Flomax - Amlodipine - Atenolol - Losartan - Lipitor, etc. INTERPRETATION: The patient was noted to be in awake and drowsy states during this electroencephalogram (EEG). Resting background rhythm consisted of well formed posterior dominant rhythm with anterior/posterior gradient comprising of 9 Hz alpha activity measuring 15-40 microvolts in amplitude which was symmetric and reactive to eye opening. Attenuation of posterior dominant rhythm was seen during transition to drowsiness. No sleep was achieved. Hyperventilation could not be performed. Photic stimulation remained unremarkable. EKG revealed normal sinus rhythm. No focal, lateralizing, or epileptiform abnormalities were seen. No relevant clinical activity was noted. CONCLUSION: This EEG in awake and drowsy states is within normal limits. MTDD
--- NOTE | 2020-05-21 15:01 | CR ---
DATE OF CONSULTATION: 05/10/2020 REFERRING PHYSICIAN: Dr. Iglesia Gordillo. REASON FOR CONSULTATION: Episode of loss of consciousness. HISTORY OF PRESENT ILLNESS: Magdy Givens is a 75-year-old man with a history of diabetes, hypertension, passing out spells, who found himself on the kitchen floor. Patient stated that he was making a sandwich in the kitchen, and his dog was near him. He felt a funny feeling in his arms, and next thing he remembered was that he was waking up on the floor, and his dog was sitting on him licking his face. He felt back pain. He felt that he could not move. He crawled to the door and called his neighbor, who called his brother. Emergency medical services (EMS) was called, who brought him to [facility]. Patient states that he has passed out several times in the past. He feels off and on dizziness. He was unable to tell me how many times he has passed out in total and how often he feels dizzy and lightheaded. He states that he feels dizzy and then passes out and does not know where he goes. There was no witness to the episode yesterday. Patient has not been taking his medications for the last 2 or 3 months. Patient states that he was discharged from office of his primary care physician. Patient has a history of pulmonary embolism and took anticoagulation in the past. Patient states that he has been neglecting his health due to bereavement and supporting his daughter. He lost five immediate family members in the last 1 year. His daughter lost her due to sudden cardiac . He complains of severe back pain currently. He denies dysphagia, dysarthria, diplopia, urinary incontinence, tongue biting, numbness or weakness of arms and legs currently. DIAGNOSTIC STUDIES: CBC, metabolic profile showed glucose 235 but unremarkable otherwise. Vitamin D was 21.6 and B12 was 313. TSH was 3.4. Ultrasound of carotid normal but affected by artifact. CT scan of head showed small-vessel ischemic disease of brain. Urine toxicology screen was unremarkable. PAST MEDICAL HISTORY: 1. Hypertension. 2. Diabetes. 3. Dyslipidemia. 4. Multiple lumbosacral laminectomies and discectomies for a Workman's Compensation case. 5. Chronic back pain. 6. Tonsillectomy. HOME MEDICATIONS: - atenolol 100 mg by mouth daily - glimepiride 4 mg by mouth daily - lovastatin 40 mg by mouth daily ALLERGIES: MORPHINE. REVIEW OF SYSTEMS: All systems were reviewed and found to be noncontributory. SOCIAL HISTORY: He denies smoking, alcohol, or illicit drugs. FAMILY HISTORY: Denies any family history of seizures or epilepsy. PHYSICAL EXAMINATION: Temperature 97.1, pulse 75, respiratory rate 22, blood pressure 140/83, 95% saturations on room air. HEART: Regular rate and rhythm. LUNGS: Clear to auscultation. ABDOMEN: Soft, nontender, nondistended. No pedal edema. No musculoskeletal abnormalities. No rash. No signs of meningeal irritation. No tremor or dysmetria. Patient is awake, alert, oriented to place, person, and time. Normal speech, comprehension, and repetition. Extraocular muscles are intact. No facial weakness. Tongue and uvula are midline. He is [id number]. Strength 5/5 in all four extremities. Normal sensation throughout. Deep tendon reflexes are 1+ in arms and knees and absent at ankles. Gait was not tested due to severe back pain. He has a bruise on his right cheek. ASSESSMENT: 1. Episodes of loss of consciousness. 2. There is concern for syncope and seizures. 3. Rule out transient ischemic attack and stroke. 4. Medical noncompliance. PLAN: 1. MRI and MRA brain. 2. Electroencephalogram (EEG). 3. [place] rules & regulations regarding driving should apply. 4. Check orthostatics to rule out dehydration, orthostatic hypotension, autonomic neuropathy due to diabetes. 5. Consider Depakote extended release after above tests. [facility]
--- NOTE | 2020-05-21 15:12 | CR ---
DATE OF CONSULTATION: 05/12/2020 REASON FOR CONSULTATION: Low back pain. 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 HISTORY OF PRESENT ILLNESS: This is a 75-year-old male that was transported to the ED after he found himself on the kitchen floor three days ago. He reports he was making a sandwich, the next thing he remembers was his dog licking his face. He crawled to the door, the neighbors noticed him and called EMS. Today, he is reporting low back pain that does not travel down the legs. His denying bowel or bladder problems, starting, stopping, or saddle numbness. Lumbar spine MRI was ordered which he denied three times. He notes that he is claustrophobic. He did not have any other dedicated lumbar, sacral or coccygeal imaging. He is reporting a history of multiple lumbar spine intervention per Dr. Moore. HOME MEDICATIONS: See list attached per Dr. Gordillo's note. ALLERGIES: Morphine (hypotension). MEDICAL PROBLEM LIST: 1. Lumbar spine back pain. 2. Hypertension. 3. Type 2 diabetes. 4. Hyperlipidemia. 5. Syncope. 6. AMS. 7. Hyponatremia. 8. Chest pain. 9. Lower extremity weakness. SOCIAL HISTORY: Denies smoking, ethanol intake or illicit drugs. FAMILY HISTORY: Non-pertinent. REVIEW OF SYSTEMS: A 13 point check. PHYSICAL EXAMINATION: Vital signs: As of 05/12/2020: Temperature 98.1, pulse 68, respiration rate 18, blood pressure 138/88, pulse oximetry 98 to room air. This is a pleasant, well-developed, well-nourished, overweight, 75-year-old male. He is resting in hospital bed comfortably. He is alert and oriented times three. His lumbar spine was inspected. There is a midline lumbar scar which is benign, noninfectious looking. He is sore about the lumbar paraspinals L3-S1. Bilateral hip ranges of motion are not grossly limited or irritable through internal and external range of motion. Straight leg raises are unremarkable for hamstring tension or radicular sign. Bilateral lower extremities compartments are supple, soft, nontender. Palpation grossly intact to light touch. Negative calf tenderness, Homans sign, palpable cords. Distal pulses 2+. Brisk capillary refill. Negative clonus bilaterally. Neurovascularly he is intact about the lower extremities. He voluntarily got up and used the walker with an assistant professor sculpture to use the bathroom. LABORATORY DATA: As reviewed per 's note. IMAGING: None orthopedic related. He did have an unremarkable CT head, CT cervical spine. CT of chest showed interstitial prominence and mild bilateral airspace disease. Mild enlargement of the ascending thoracic aorta measuring 4.0 cm in diameter. No pulmonary embolus in the opacified pulmonary arteries. Prominent small vessel ischemic change on CT head. CT of abdomen and pelvis exhibits transitional vertebrae of the lumbosacral junction. Designated S1 Grade I anterolisthesis L5 and S1. Degenerative change and disc bulging. Microbiology per Dr. Gordillo's note. ASSESSMENT: A 75-year-old male presented to the ED after episode of syncope, found on ground, now describing low back pain with a history of lumbar spine surgical intervention. Presentation: Confusion, memory loss. PLAN: Lumbar spine x-ray as the patient will not tolerate MRI. Medicine is coordinating a psych consult for his difficulties with mentation. Pending x-ray results, he may be a candidate for bracing, rest and a walker. Lumbar MRI is still recommended if he tolerates it. Weightbearing as tolerated with walker with walker and assistance If the patient was to develop bowel or bladder problems, starting, stopping, or saddle numbness, I would suggest coordination with some sedation to proceed with a stat lumbar MRI. We will await xray results. Thank you for allowing me to participate in Mr. Lissette moreno. If there are any other orthopedic considerations, please contact our service. Edited: psychiatric 05/15/2020 1014 MTDD
--- NOTE | 2020-05-21 15:16 | REP ---
LUMBAR SPINE SERIES: 5-VIEWS HISTORY: Rule out disc herniation. No comparison radiographs. LUMBAR SPINE FINDINGS: Lumbar vertebral body heights are preserved. Alignment is normal. There is degenerative disc disease at L4-5, L3-4, and L2-3. A vacuum phenomenon is seen at L4-5. There is also degenerative narrowing and subtle vacuum phenomenon at L5-S1. There is osteoarthritic facet sclerosis and hypertrophy bilaterally at L4-5 and 5-1. Psoas margins are symmetric. Sacrum and SI joints are intact. There is mild sclerosis on the iliac side of the SI joint on the left. Mild degenerative changes are noted incidentally in the left hip. IMPRESSION: [id number] degenerative spondylosis changes. No acute bony abnormality. MTDD
--- NOTE | 2020-05-21 15:27 | CR ---
DATE OF CONSULTATION: 05/14/2020 CONSULTATION REPORT FOR: Iglesia Gordillo M.D. REASON FOR CONSULTATION: Hyponatremia. HISTORY OF PRESENT ILLNESS: Mr. Givens is a 75-year-old gentleman who was admitted to [facility] on 05/09/2020 due to fall and seizure activity at home. He was found to have hyponatremia with sodium level 128 on admission. Since then, he has been treated by hospitalist service and sodium level has improved only to 131. A nephrology consultation was requested today and patient is seen this evening. PAST MEDICAL AND SURGICAL HISTORY: Significant for: 1. Longstanding history of diabetes which is not well controlled. 2. Hypertension. 3. History of hyperlipidemia. 4. History of chronic back pain, status post discectomy and laminectomy. 5. History of benign prostatic hypertrophy. Past surgical history is significant for two back surgeries for laminectomy and discectomy and history of tonsillectomy. MEDICATIONS: His home medications included: - atenolol 100 mg daily - glimepiride 4 mg daily - lovastatin 40 mg daily ALLERGIES: Patient has allergy to MORPHINE. PERSONAL AND SOCIAL HISTORY: Patient is retired and denies any alcohol or drug use. FAMILY HISTORY: Significant for cancer; prostate cancer in his father and colorectal cancer in the mother. REVIEW OF SYSTEMS: Patient had a fall and possible seizure at home prior to admission. There is no history of fever or chills. He denies any prior history of seizures. Ears, nose, and throat are unremarkable. Cardiovascular system: Significant for hypertension. Patient denies any history of congestive heart failure. Respiratory system: Negative for cough or hemoptysis. Gastrointestinal (GI) system negative for vomiting or diarrhea. Genitourinary system is significant for BPH and difficulty voiding. He reports nocturia and increased frequency without any dysuria. Musculoskeletal system is significant for chronic back pain. Patient denies any leg edema. Endocrine system is significant for type 2 diabetes and hyperlipidemia. Psychosocial system negative for depression and anxiety. Neurological system is negative for headache at present. He denies any prior history of seizures. Hematological system is significant for no history of anemia or easy bruising. Skin is negative for rash or ulcers. PHYSICAL EXAMINATION: Patient is awake and alert at the time of my visit. Temperature 97.5 degrees Fahrenheit, heart rate 62 per minute, and respiratory rate 18 per minute. Blood pressure 140/80 mmHg and oxygen saturation 97% on room air. Head is atraumatic. Neck is supple and without jugular venous distention (JVD) or thyroid enlargement. Ears, nose, and throat and unremarkable. Pupils equal and reactive to light. Sclerae is anicteric. Heart sounds regular and lungs sound clear to auscultation bilaterally. Abdomen is soft and nontender with suprapubic area fullness. Bowel sounds are normal. Extremities without any cyanosis or clubbing. Neurologically he is awake, alert, and oriented times three. LABORATORY DATA: On admission sodium was 128, today his sodium is 131, potassium 3.9, chloride 99, CO2 26, BUN 17, and creatinine 0.72, glucose 228, and calcium 8.5. His hemoglobin A1c level was 9.0 on 05/10/2020. Random urine osmolality today 490 and random urine sodium is 124. His TSH level was 2.0 on admission and free T4 1.18. PROBLEMS: 1. Hyponatremia. Most likely patient has chronic hyponatremia related to uncontrolled diabetes. His sodium level improved slightly since admission with IV normal saline. Clinically, he looks euvolemic at this point. He is not on any diuretics. He does take hydrocodone chronically which could be related to hyponatremia. High urine sodium and urine osmolality are consistent with syndrome of inappropriate antidiuretic hormone secretion (SIADH). At present, we will start with oral sodium chloride 1 gram three times a day. Patient should continue with fingerstick and try to achieve optimum control of diabetes. 2. Uncontrolled diabetes. His hemoglobin A1c level is 9.0. He is getting insulin coverage here, but at home he was not using any medications prior to admission as he ran out of medications and he was also discharged from his primary physicians office due to noncompliance. He understands that good control of diabetes is important for his long-term health. 3. BPH. Patient reports increased frequency and nocturia. He is already on Flomax 0.4 mg daily. We will get a bladder scan for postvoid residual and see if he needs to have any further intervention. Thank you for involving me in the care of Mr. Givens. I will follow him along with you. BLAINE
--- NOTE | 2020-05-21 15:29 | IPN ---
DATE: 05/15/2020 SUBJECTIVE: Mr. Givens is seen this morning at his bedside. He denies any nausea, vomiting, dyspnea or chest pain. Last night bladder ultrasound was done which did show significant residual, however patient declined a straight cath. This morning he reports that he was able to urinate much better. PHYSICAL EXAMINATION: VITAL SIGNS: Temperature 97.5 degrees Fahrenheit, heart rate is 62 per minute and respiratory rate 18 per minute. Blood pressure 140/80 mmHg and oxygen saturation 97% on room air. HEENT: Head is atraumatic. NECK: Supple without JVD or thyroid enlargement. HEART: Heart sounds are regular. LUNGS: Clear to auscultation. ABDOMEN: Soft and nontender. Bowel sounds are normal. EXTREMITIES: Without any cyanosis or clubbing. NEUROLOGIC: He is without any focal deficits. LABORATORY DATA: Todays labs shows a sodium of 130, potassium 4.0, BUN 16 and creatinine 0.75, glucose 215, calcium 9.0. PROBLEMS: 1. Hyponatremia. Sodium level remains essentially unchanged. I feel that he most likely has chronic hyponatremia related to uncontrolled diabetes. He probably also has SIADH. We have already put him on oral sodium chloride tablets. I am not starting a diuretic as of yet. We will see how he does over the next 24 hours. 2. Urinary retention. Patient is emptying his bladder only about 50%. He is already taking Flomax 0.4 mg at bedtime and I am going to add finasteride 5 mg at bedtime. 3. Hypertension. Blood pressure seems to be very well-controlled on current medications. I am not adding any diuretic due to hyponatremia and lack of any peripheral edema. We will monitor and see how he does. 4. Diabetes. At present, his diabetes seems to be reasonably well-controlled although he does have history of poor control of diabetes for a while. It is important to know that he as not taking any medication for diabetes before he came to the hospital. 5. Disposition: From a renal standpoint, the patient can be discharged to home and follow-up as an outpatient. BLAINE
--- NOTE | 2020-05-21 15:31 | IPN ---
DATE: 05/16/2020 SUBJECTIVE: Mr. Givens is seen this morning at his bedside. He is quite upset as he wants to go home. He reports that his brother is very sick and his dog is hungry and nobody is there to take care of him. Patient is medically feeling much better. He denies any nausea, vomiting, dyspnea, chest pain, leg edema, dizziness or lightheadedness. PHYSICAL EXAMINATION: VITAL SIGNS: Temperature is 98 degrees Fahrenheit, heart rate is 65 per minute and respiratory rate is 18 per minute. Blood pressure is 130/70 mmHg and oxygen saturation 96% on room air. HEENT: Head is atraumatic. NECK: Supple without JVD or thyroid enlargement. HEART: Heart sounds are regular. LUNGS: Clear to auscultation. ABDOMEN: Soft and nontender. Bowel sounds are normal. EXTREMITIES: Without any cyanosis or clubbing. NEUROLOGIC: He is awake, alert and at his baseline mentation. LABORATORY DATA: Todays labs shows a sodium level of 135 and potassium 4.3. CO2 is 29, BUN is 25 and creatinine is 0.75. PROBLEMS: 1. Hyponatremia. Sodium level has improved up to 135 now which is almost normal. He had been on oral sodium chloride tablets. Patient has no evidence of peripheral edema or hypervolemia. He is not on a diuretic at present. 2. Diabetes. His diabetes is much better controlled now in the hospital while he is getting per sliding scale. It remains to be seen how his diabetes does at home. He understands to follow his dietary restrictions and take his medications regularly. 3. Hypertension. Blood pressure is very well-controlled and no changes are being made today. 4. Disposition: Patient wants to go home and I feel that he is medically ready for discharge. I did talk to his nursing staff and also communicated with [employer] for him going home. BLAINE
== END 2020-05-16 15:11 | disposition home or self-care (01) | DRG 101 ==
LOC: M ED 12:53 → EDBD 12:53 → EDSEX 12:53 → M ED INP 18:01 → ENRESERV 22:02 → M MSPAV 22:55
PROVIDERS: ADMIT Family Medicine; ATTEND Internal Medicine
DX: R56.9 Unspecified convulsions (principal); E22.2 Syndrome of inappropriate secretion of antidiuretic hormone; E11.9 Type 2 diabetes mellitus without complications; I10 Essential (primary) hypertension; E78.5 Hyperlipidemia, unspecified; Z79.899 Other long term (current) drug therapy; Z88.5 Allergy status to narcotic agent; J45.909 Unspecified asthma, uncomplicated

== ENCOUNTER 2020-09-25 12:39 | Inpatient (IN) | payer MEDICARE ==
[~2020-09-25] VITALS: Ht 193 cm; Wt 108.1 kg
[~2020-09-25 12:39] MED LIST changes: +AMLO1TAB24 PO; +ATEN100T PO; +ATEN50TA2 PO; +COZA1TAB PO; +D31000TA2 PO; +DEPA250T32 PO; +FINA5TAB2 PO; +FLOM0.4C39 PO; +GLIM4TAB5 PO; +LOVA40TA PO; +PATIENT COMMENT; +SODI1TAB6 PO
--- OUTSIDE RECORDS SUMMARY | 2020-09-25 12:48 | CCD ---
Author Author [facility] Organization [facility] Address Unknown Phone Unavailable Care Team Providers Care Underwriting Specialist Name Role Phone DRAZEK, I SARA PA Unavailable Unavailable DRAZEK, I SARA PA Unavailable Unavailable DRAZEK, I SARA PA Unavailable Unavailable DRAZEK, I SARA PA Unavailable Unavailable DRAZEK, I SARA PA Unavailable Unavailable DRAZEK, I SARA PA Unavailable Unavailable DRAZEK, I SARA PA Unavailable Unavailable DRAZEK, I SARA PA Unavailable Unavailable DRAZEK, I SARA PA Unavailable Unavailable DRAZEK, I SARA PA Unavailable Unavailable DRAZEK, I SARA PA Unavailable Unavailable DRAZEK, I SARA PA Unavailable Unavailable DRAZEK, I SARA PA Unavailable Unavailable DRAZEK, I SARA PA Unavailable Unavailable DRAZEK, I SARA PA Unavailable Unavailable DRAZEK, I SARA PA Unavailable Unavailable DRAZEK, I SARA PA Unavailable Unavailable DRAZEK, I SARA PA Unavailable Unavailable DRAZEK, I SARA PA Unavailable Unavailable DRAZEK, I SARA PA Unavailable Unavailable DRAZEK, I SARA PA Unavailable Unavailable DRAZEK, I SARA PA Unavailable Unavailable DRAZEK, I SARA PA Unavailable Unavailable DRAZEK, I SARA PA Unavailable Unavailable DRAZEK, I SARA PA Unavailable Unavailable DRAZEK, I SARA PA Unavailable Unavailable DRAZEK, I SARA PA Unavailable Unavailable DRAZEK, I SARA PA Unavailable Unavailable DRAZEK, I SARA PA Unavailable Unavailable DRAZEK, I SARA PA Unavailable Unavailable [facility], SSCORDO SCORDO PA JOSIE Unavailable Unavaila ble Scordo, M Josie PA Unavailable Unavailable Scordo, M Josie PA Unavailable Unavailable Scordo, M Josie PA Unavailable Unavailable Scordo, M Josie PA Unavailable Unavailable Scordo, M Josie PA Unavailable Unavailable Scordo, M Josie PA Unavailable Unavailable Scordo, M Josie PA Unavailable Unavailable Scordo, M Josie PA Unavailable Unavailable Scordo, M Josie PA Unavailable Unavailable Scordo, M Josie PA Unavailable Unavailable Scordo, M Josie PA Unavailable Unavailable Scordo, M Josie PA Unavailable Unavailable Scordo, M Josie PA Unavailable Unavailable Scordo, M Josie PA Unavailable Unavailable Scordo, M Josie PA Unavailable Unavailable Scordo, M Josie PA Unavailable Unavailable Scordo, M Josie PA Unavailable Unavailable Scordo, M Josie PA Unavailable Unavailable Scordo, M Josie PA Unavailable Unavailable Scordo, M Josie PA Unavailable Unavailable Scordo, M Josie PA Unavailable Unavailable Scordo, M Josie PA Unavailable Unavailable Scordo, M Josie PA Unavailable Unavailable Scordo, M Josie PA Unavailable Unavailable Scordo, M Josie PA Unavailable Unavailable Scordo, M Josie PA Unavailable Unavailable Scordo, M Josie PA Unavailable Unavailable Scordo, M Josie PA Unavailable Unavailable Scordo, M Josie PA Unavailable Unavailable Scordo, M Josie PA Unavailable Unavailable Scordo, M Josie PA Unavailable Unavailable Scordo, M Josie PA Unavailable Unavailable Scordo, M Josie PA Unavailable Unavailable Scordo, M Josie PA Unavailable Unavailable Scordo, M Josie PA Unavailable Unavailable Scordo, M Josie PA Unavailable Unavailable Scordo, M Josie PA Unavailable Unavailable Scordo, M Josie PA Unavailable Unavailable Scordo, M Josie PA Unavailable Unavailable Scordo, M Josie PA Unavailable Unavailable Scordo, M Josie PA Unavailable Unavailable Scordo, M Josie PA Unavailable Unavailable Re-disclosure Warning The records that you are about to access may contain information from federally-assisted alcohol or drug abuse programs. If such information is present, then the following federally mandated warning applies: This information has been disclosed to you from records protected by federal confidentiality rules (42 CFR part 2). The federal rules prohibit you from making any further disclosure of this information unless further disclosure is expressly permitted by the written consent of the person to whom it pertains or as otherwise permitted by 42 CFR part 2. A general authorization for the release of medical or other information is NOT sufficient for this purpose. The Federal rules restrict any use of the information to criminally investigate or prosecute any alcohol or drug abuse patient.The records that you are about to access may contain highly sensitive health information, the redisclosure of which is protected by Article 27-F of the [facility] Public Health law. If you continue you may have access to information: Regarding HIV / AIDS; Provided by facilities licensed or operated by the [facility] Office of Mental Health; or Provided by the [facility] Office for People With Developmental Disabilities. If such information is present, then the following [facility] mandated warning applies: This information has been disclosed to you from confidential records which are protected by state law. State law prohibits you from making any further disclosure of this information without the specific written consent of the person to whom it pertains, or as otherwise permitted by law. Any unauthorized further disclosure in violation of state law may result in a fine or intermediate sentence or both. A general authorization for the release of medical or other information is NOT sufficient authorization for further disc losure. Family History Family Member Name Family Member Gender Family Member Status Date o f Status Description Data Source(s) Unknown Unknown Problem [facility] Encounters Encounter Providers Location Date Indications Data Source(s ) Outpatient Attender: JOSE LUIS MERRILL ALL 06/09/2020 02:10:02 PM EDT [facility] Outpatient Attender: JOSE LUIS MERRILL ALL 06/08/2020 01:47:01 PM EDT [facility] Outpatient Attender: SARA BRINK Physical Therapy 05/12/2020 0 3:08:00 PM EDT [facility] ([facility]) Outpatient Attender: Josie BRINK ALL 05/12/2020 08:24:01 AM EDT [facility] Outpatient Attender: JOSE LUIS LAZO ALL 05/12/2020 08:24:01 AM EDT [facility] Medications Medication Brand Name Start Date Product Form Dose Route Admi nistrative Instructions Pharmacy Instructions Status Indications Reaction Description Data Source(s) 40 mg 05/16/2020 12:00:00 AM EDT tablet 30 TAKE ONE TABLET BY MOUTH EVERY DAY TAKE ONE TABLET BY MOUTH EVERY DAY SOLD: 05/16/2020 [facility] 250 mg 05/16/2020 12:00:00 AM EDT tablet,delayed release (DR/EC) 60 TAKE ONE TABLET BY MOUTH TWICE A DAY TAKE ONE TABLET BY MOUTH TWICE A DAY SOLD: 05/16/2020 [facility] Atenolol 50 MG Oral Tablet ATENOLOL 05/16/2020 12:00:00 AM EDT tablet 30 TAKE ONE TABLET BY MOUTH EVERY DAY TAKE ONE TABLET BY MOUTH EVERY DAY SOLD: 05/16/2020 [facility] 50 mcg (2,000 unit) 05/16/2020 12:00:00 AM EDT tablet 30 TAKE ONE TABLET BY MOUTH EVERY DAY TAKE ONE TABLET BY MOUTH EVERY DAY SOLD: 05/16/2020 [facility] 0.4 mg 05/16/2020 12:00:00 AM EDT capsule 30 TAKE ONE CAPSULE BY MOUTH EVERY DAY TAKE ONE CAPSULE BY MOUTH EVERY DAY SOLD: 05/16/2020 [facility] glimepiride 4 MG Oral Tablet GLIMEPIRIDE 05/16/2020 12:00:00 AM EDT ta blet 30 TAKE ONE TABLET BY MOUTH EVERY DAY TAKE ONE TABLET BY MOUTH EVERY DAY SOLD: 05/16/2020 [facility] Finasteride 5 MG Oral Tablet FINASTERIDE 05/16/2020 12:00:00 AM EDT ta blet 30 TAKE ONE TABLET BY MOUTH AT BEDTIME TAKE ONE TABLET BY MOUTH AT BEDTIME SOLD: 05/16/2020 [facility] 5 mg 05/16/2020 12:00:00 AM EDT tablet 30 TAKE ONE TABLET BY MOUTH EVERY DAY TAKE ONE TABLET BY MOUTH EVERY DAY SOLD: 05/16/2020 [facility] Losartan Potassium 25 MG Oral Tablet LOSARTAN POTASSIUM 12:00:00 AM EDT tablet 30 TAKE ONE TABLET BY MOUTH GLENDY RY DAY AT 9PM TAKE ONE TABLET BY MOUTH EVERY DAY AT 9PM SOLD: 05/16/2020 [facility] 1 gram 05/16/2020 12:00:00 AM EDT tablet 90 TAKE ONE TABLET BY MOUTH THREE TIMES A DAY TAKE ONE TABLET BY MOUTH THREE TIMES A DAY SOLD: 05/16/2020 [facility] 40 mg 02/03/2020 12:00:00 AM EDT tablet 30 TAKE ONE TABLET BY MOUTH EVERY DAY TAKE ONE TABLET BY MOUTH EVERY DAY SOLD: 02/06/2020 [facility] 100 mg 02/03/2020 12:00:00 AM EDT tablet 30 TAKE ONE TABLET BY MOUTH EVERY DAY TAKE ONE TABLET BY MOUTH EVERY DAY SOLD: 02/06/2020 [facility] glimepiride 4 MG Oral Tablet GLIMEPIRIDE 02/03/2020 12:00:00 AM EDT ta blet 30 TAKE ONE TABLET BY MOUTH EVERY DAY TAKE ONE TABLET BY MOUTH EVERY DAY SOLD: 02/06/2020 [facility] glimepiride 4 MG Oral Tablet GLIMEPIRIDE 08/13/2019 12:00:00 AM EST ta blet 90 TAKE ONE TABLET BY MOUTH EVERY DAY TAKE ONE TABLET BY MOUTH EVERY DAY SOLD: 11/09/2019 [facility] 4 mg 08/13/2019 12:00:00 AM EST tablet 90 TAKE ONE TABLET BY MOUTH EVERY DAY TAKE ONE TABLET BY MOUTH EVERY DAY SOLD: 08/14/2019 [facility] 100 mg 08/05/2019 12:00:00 AM EST tablet 90 TAKE ONE TABLET BY MOUTH ONCE DAILY TAKE ONE TABLET BY MOUTH ONCE DAILY SOLD: 11/01/2019 [facility] 100 mg 08/05/2019 12:00:00 AM EST tablet 90 TAKE ONE TABLET BY MOUTH ONCE DAILY TAKE ONE TABLET BY MOUTH ONCE DAILY SOLD: 08/05/2019 [facility] 40 mg 02/03/2019 12:00:00 AM EDT tablet 90 TAKE ONE TABLET BY MOUTH DAILY TAKE ONE TABLET BY MOUTH DAILY SOLD: 11/01/2019 [facility] 40 mg 02/03/2019 12:00:00 AM EDT tablet 90 TAKE ONE TABLET BY MOUTH DAILY TAKE ONE TABLET BY MOUTH DAILY SOLD: 08/05/2019 [facility] Insurance Providers Payer name Policy type / Coverage type Policy ID Covered alliance party ID Covered alliance party's relationship to valderrama Policy [place] Plan Information MEDICARE [id number] SP [id number] MEDICARE C [id number] S [id number] K73 MEDICARE C [id number] S [id number] A MEDICARE [id number] SP [id number] K73 MEDICARE [id number] A MEDICARE PART A -O/P [id number] 18 [id number] MEDICARE PART A -O [id number] 18 [id number] MEDICARE PART A -I/P [id number] 18 [id number] MEDICARE PART A -O/P [id number] 18 [id number] Medicare Natl Gov't Servi Medicare Primary [id number] Self [id number] MEDICARE -O/P [id number] 18 [id number] Problems, Conditions, and Diagnoses Code Display Name Description Problem Type Effective Dates Data Source(s) N40.0 Benign prostatic hyperplasia without low er urinary tract symptoms Benign localized hyperplasia of prostate 05/12/2020 08:23:18 AM EDT [facility] I10 Essential (primary) hypertension HTN, unspecified 05/12/2020 08:23:18 AM EDT [facility] 268.9 Vitamin D deficiency Vitamin D deficiency 05/12 08:23:18 AM EDT [facility] 250.80 Type 2 diabetes mellitus with hyperglyce sharon Type 2 diabetes mellitus with hyperglycemia 05/12/2020 08:23:18 AM EDT [facility] V12.59 History of myocardial infarction History of myocardial infarction 05/12/2020 08:23:18 AM EDT [facility] I45.19 Other right bundle-branch block Incomplete right bundl e branch block 05/12/2020 08:23:18 AM EDT [facility] 276.1 Hyponatremia Hyponatremia 05/12/2020 08:23:18 A M EDT [facility] 780.2 Syncope Syncope 05/12/2020 08:23:18 AM ED T [facility]
[2020-09-25 14:42] LABS: BASO % 0.5 % (0.0-1.0); EOS # 0.1 10^3/uL (0.0-0.5); EOS % 0.6 % (0.0-3.0); HEMATOCRIT 46.4 % (42.0-52.0); HEMOGLOBIN 15.9 g/dl (13.5-17.5); LYMPH # 1.6 10^3/uL (1.5-5.0); MEAN CORPUSCULAR HEMOGLOBIN 29.1 pg (27.0-33.0); MEAN CORPUSCULAR HGB CONC 34.3 g/dl (32.0-36.5); MEAN CORPUSCULAR VOLUME 84.8 fl (80.0-96.0); MONO # 0.7 10^3/uL (0.0-0.8); MONO % 8.9 % (0.0-5.0); NEUTROPHILS # 5.9 10^3/uL (1.5-8.5); NEUTROPHILS % 70.5 % (36.0-66.0); PLATELET COUNT, AUTOMATED 284 10^3/uL (150-450); RED BLOOD COUNT 5.47 10^6/uL (4.30-6.10); WHITE BLOOD COUNT 8.3 10^3/uL (4.0-10.0)
[2020-09-25] MEDS ORDERED: fentaNYL 100 MCG/2 ML INJECTION (J3010) IV ONE (14:45)
[2020-09-25 14:51] LABS: PROTHROMBIN TIME 13.4 SECONDS (12.5-14.3)
[2020-09-25 14:52] LABS: PARTIAL THROMBOPLASTIN TIME 32.3 SECONDS (24.2-38.5)
[2020-09-25 15:06] LABS: AMPHETAMINES LEVEL URINE NEGATIVE (NEGATIVE); BARBITURATES URINE NEGATIVE (NEGATIVE); BENZODIAZEPINES URINE NEGATIVE (NEGATIVE); CANNABINOIDS URINE NEGATIVE (NEGATIVE); COCAINE METABOLITE URINE NEGATIVE (NEGATIVE); METHADONE URINE NEGATIVE (NEGATIVE); OPIATES URINE NEGATIVE (NEGATIVE); PHENCYCLIDINE URINE NEGATIVE (NEGATIVE)
--- NOTE | 2020-09-25 15:07 | REP ---
INDICATION: Altered Mental Status. COMPARISON: None. TECHNIQUE: Helical scanning is acquired. 5 mm axial images were reformatted. Coronal MPR images were generated. FINDINGS: Digital preliminary sustainment logistics analyst radiograph is unremarkable. On bone window settings the bony calvarium is intact. No fracture is seen. There is heavy vascular calcification in the distal internal carotid and distal vertebral arteries bilaterally. Visualized paranasal sinuses are clear. No intraorbital abnormality is seen. On soft tissue window settings, there is mild generalized volume loss. Small vessel atherosclerotic changes are again noted in the [place] ventricular white matter bilaterally in a pattern unchanged from the May 09, [address] There is no evidence of intracranial hemorrhage. No mass, extra-axial fluid collection, or midline shift is seen. No scalp hematoma is appreciated. No evidence of infarct. IMPRESSION: Extensive small-vessel atherosclerotic changes and marked vascular calcification. Some generalized volume loss. No acute intracranial abnormality.. <Electronically signed by Malvin Pollack > 09/25/20 [id number]
--- OUTSIDE RECORDS SUMMARY | 2020-09-25 15:09 | CCD ---
Author Author [facility] Organization [facility] Address Unknown Phone Unavailable Care Team Providers Care Parts Department Manager Name Role Phone DRAZEK, I SARA PA [...] is protected by Article 27-F of the [facility] Public Health law. If you continue you may have access to information: Regarding HIV / AIDS; Provided by facilities licensed or operated by the [facility] Office of Mental Health; or Provided by the [facility] Office for People With Developmental Disabilities. If such information is present, then the following [facility] mandated warning applies: This information has [...] Description Data Source(s) Unknown Unknown Problem [facility] Encounters Encounter Providers Location Date Indications Data Source(s ) Outpatient Attender: JOSE LUIS MERRILL ALL 06/09/2020 02:10:02 PM EDT [facility] Outpatient Attender: JOSE LUIS MERRILL ALL 06/08/2020 01:47:01 PM EDT [facility] Outpatient Attender: SARA BRINK Physical Therapy 05/12/2020 0 3:08:00 PM EDT [facility] ([facility]) Outpatient Attender: Josie BRINK ALL 05/12/2020 08:24:01 AM EDT [facility] Outpatient Attender: JOSE LUIS LAZO ALL 05/12/2020 08:24:01 AM EDT [facility] Medications Medication Brand Name Start Date [...] to valderrama Policy Valderrama Plan Information MEDICARE [id number] SP [id number] K73 MEDICARE C [id number] S [id number] K73 MEDICARE C [id number] S [id number] A MEDICARE [id number] SP [id number] K73 MEDICARE [id number] A MEDICARE PART A -O/P [id number] 18 [id number] MEDICARE PART A -O [id number] 18 [id number] MEDICARE PART A -I/P [id number] 18 [id number] MEDICARE PART A -O/P [id number] 18 [id number] Medicare Natl Gov't Servi Medicare Primary [id number] Self [id number] MEDICARE -O/P [id number] 18 [id number] Problems, Conditions, and Diagnoses Code Display Name Description Problem Type Effective Dates Data Source(s) N40.0 Benign prostatic hyperplasia without low er urinary tract symptoms Benign localized hyperplasia of prostate 05/12/2020 08:23:18 AM EDT [facility] I10 Essential (primary) hypertension HTN, unspecified 05/12/2020 08:23:18 AM EDT [facility] 268.9 Vitamin D deficiency Vitamin D deficiency 05/12 08:23:18 AM EDT [facility] 250.80 Type 2 diabetes mellitus with hyperglyce sharon Type 2 diabetes mellitus with hyperglycemia 05/12/2020 08:23:18 AM EDT [facility] V12.59 History of myocardial infarction History of myocardial infarction 05/12/2020 08:23:18 AM EDT [facility] I45.19 Other right bundle-branch block Incomplete right bundl e branch block 05/12/2020 08:23:18 AM EDT [facility] 276.1 Hyponatremia Hyponatremia 05/12/2020 08:23:18 A M EDT [facility] 780.2 Syncope Syncope 05/12/2020 08:23:18 AM ED T [facility]
--- NOTE | 2020-09-25 15:11 | REP ---
INDICATION: trauma. COMPARISON: Comparison study May 09, 2020.. TECHNIQUE: Helical scanning is acquired and overlapping 2 mm high resolution axial images were generated and reviewed at bone and soft tissue window settings. Coronal and sagittal multiplanar re-formations images are generated. FINDINGS: There is no evidence of cervical spine element fracture. No skull base fracture is seen. Cervical vertebral body heights are preserved. Alignment is normal. Facet joints are normally aligned bilaterally at each cervical level on multiplanar re-formations images. There is no evidence of intraspinal or paraspinal hematoma. No extra vertebral abnormality is seen. There are mild degenerative disc changes in the cervical spine as on the May 09, 2020 study. Osteoarthritic facet hypertrophy is noted also mild in degree. Some vascular calcification is seen in the carotid bifurcations bilaterally. IMPRESSION: No fracture or subluxation seen. Mild degenerative spondylosis changes. No acute abnormality. <Electronically signed by Malvin Pollack > 09/25/20 [id number]
[2020-09-25 15:13] LABS: ALBUMIN 3.6 GM/DL (3.2-5.2); ALT/SGPT 26 U/L (12-78); BILIRUBIN,DIRECT 0.4 MG/DL (0.0-0.2); BLOOD UREA NITROGEN 21 MG/DL (7-18); CALCIUM LEVEL 9.8 MG/DL (8.8-10.2); CARBON DIOXIDE LEVEL 29 MEQ/L (21-32); CHLORIDE LEVEL 93 MEQ/L (98-107); CK-MB VALUE MASS 1.9 NG/ML (<3.6); CPK CREATINE PHOSPHOKINASE 98 U/L (39-308); CREATININE FOR GFR 0.83 MG/DL (0.70-1.30); ETHYL ALCOHOL (ETHANOL) 0.003 % (0.000-0.010); GLOMERULAR FILTRATION RATE > 60.0 (>42); GLUCOSE, FASTING 201 MG/DL (70-100); MB/CK RELATIVE INDEX 1.94 (< OR =4); POTASSIUM SERUM 3.7 MEQ/L (3.5-5.1); SODIUM LEVEL 130 MEQ/L (136-145); TOTAL PROTEIN 6.9 GM/DL (6.4-8.2); TROPONIN I < 0.02 NG/ML (< 0.10)
--- NOTE | 2020-09-25 16:23 | REP ---
INDICATION: Altered Mental Status. COMPARISON: Comparison chest x-ray May 09, 2020. TECHNIQUE: Portable upright AP chest radiograph. FINDINGS: The lungs are well inflated and free of infiltrate. Pleural angles are sharp. Heart size is normal. Pulmonary vasculature is not increased. Monitoring electrodes are seen. IMPRESSION: No active disease. <Electronically signed by Malvin Pollack > 09/25/20 [id number]
--- NOTE | 2020-09-25 16:25 | REP ---
INDICATION: trauma. COMPARISON: Comparison made with today's left knee radiographs.. TECHNIQUE: Four views. FINDINGS: Four views of the the left calf demonstrate vascular calcification in the soft tissues of the calf. No tibial fracture or. Fifty alert fracture is seen.. . No opaque foreign body noted. IMPRESSION: No acute fracture seen.. <Electronically signed by Malvin Pollack > 09/25/20 [id number]
--- NOTE | 2020-09-25 16:26 | REP ---
INDICATION: trauma COMPARISON: None. TECHNIQUE: Six views left knee. FINDINGS: There is no evidence of acute fracture, dislocation, or intrinsic bone disease.Mild arthritic changes are noted with mild diffuse joint space narrowing, subchondral sclerosis and chondrocalcinosis. There are tiny spurs of the lateral femoral condyle and tibial plateau. I suspect small joint effusion. IMPRESSION: No fracture or dislocation. Mild arthritic changes. Suspect small joint effusion. <Electronically signed by Dung Miller > 09/25/20 [id number]
[2020-09-25] MEDS ORDERED: VITA200038 PO (17:02)
[2020-09-25] MEDS ORDERED: GLIM4TAB5 PO (17:02)
[2020-09-25] MEDS ORDERED: AMLO1TAB24 PO (17:02)
[2020-09-25] MEDS ORDERED: DIVA250T67 PO (17:02)
[2020-09-25] MEDS ORDERED: LOSA25TA14 PO (17:02)
[2020-09-25] MEDS ORDERED: FINA5TAB2 PO (17:02)
[2020-09-25] MEDS ORDERED: FLOM0.4C39 PO (17:02)
[2020-09-25] MEDS ORDERED: SODI1TAB6 PO (17:02)
[2020-09-25] MEDS ORDERED: ATEN50TA2 PO (17:02)
[2020-09-25] MEDS ORDERED: LOVA40TA PO (17:02)
[2020-09-25] MEDS ORDERED: COMMENTS (17:10)
[2020-09-25] MEDS ORDERED: GLUCOSE 4GM CHEW TABLET PO PRN (18:15)
[2020-09-25] MEDS ORDERED: GLUCAGON INJ 1MG VIAL SC PRN (18:15)
[2020-09-25] MEDS ORDERED: DEXTROSE 50% 50 ML SYRINGE IV PRN (18:15)
[2020-09-25 18:16] LABS: RSV AMPLIFICATION NEGATIVE (NEGATIVE)
--- OUTSIDE RECORDS SUMMARY | 2020-09-25 18:23 | CCD ---
Author Author [facility] Organization [facility] Address Unknown Phone Unavailable Care Team Providers Care Social Work Supervisor Name Role Phone DRAZEK, I SARA PA [...] I SARA PA Unavailable Unavailable DRAZEK, I ASRA PA Unavailable Unavailable DRAZEK, I SARA PA [...] is protected by Article 27-F of the [facility] Public Health law. If you continue you may have access to information: Regarding HIV / AIDS; Provided by facilities licensed or operated by the [facility] Office of Mental Health; or Provided by the [facility] Office for People With Developmental Disabilities. If such information is present, then the following [facility] mandated warning applies: This information has been [...] law may result in a fine or [place] [facility] sentence or both. A general authorization for the release of medical or other information is NOT sufficient authorization for further disc losure. Family History Family Member Name Family Member Gender Family Member Status Date o f Status Description Data Source(s) Unknown Unknown Problem [facility] Encounters Encounter Providers Location Date Indications Data Source(s ) Outpatient Attender: JOSE LUIS MERRILL ALL 06/09/2020 02:10:02 PM EDT [facility] Outpatient Attender: JOSE LUIS MERRILL ALL 06/08/2020 01:47:01 PM EDT [facility] Outpatient Attender: SARA BRINK Physical Therapy 05/12/2020 0 3:08:00 PM EDT [facility] ([facility]) Outpatient Attender: Josie BRINK ALL 05/12/2020 08:24:01 AM EDT [facility] Outpatient Attender: JOSE LUIS LAZO ALL 05/12/2020 08:24:01 AM EDT [facility] Medications Medication Brand Name Start Date [...] type / Coverage type Policy ID Covered green party ID Covered green party's relationship to valderrama Policy Valderrama Plan Information MEDICARE [id number] SP [id number] MEDICARE C [id number] S [id number] K73 MEDICARE C [id number] S [id number] A MEDICARE [id number] SP [id number] K73 MEDICARE [id number] A MEDICARE PART A -O/P [id number] 18 [id number] MEDICARE PART A -O [id number] 18 [id number] MEDICARE PART A -I/P [id number] 18 [id number] MEDICARE PART A -O/P [id number] 18 [id number] Medicare Natl Gov't Servi Medicare Primary [id number] Self [id number] MEDICARE -O/P [id number] 18 [id number] Problems, Conditions, and Diagnoses Code Display Name Description Problem Type Effective Dates Data Source(s) N40.0 Benign prostatic hyperplasia without low er urinary tract symptoms Benign localized hyperplasia of prostate 05/12/2020 08:23:18 AM EDT [facility] I10 Essential (primary) hypertension HTN, unspecified 05/12/2020 08:23:18 AM EDT [facility] 268.9 Vitamin D deficiency Vitamin D deficiency 05/12 08:23:18 AM EDT [facility] 250.80 Type 2 diabetes mellitus with hyperglyce sharon Type 2 diabetes mellitus with hyperglycemia 05/12/2020 08:23:18 AM EDT [facility] V12.59 History of myocardial infarction History of myocardial infarction 05/12/2020 08:23:18 AM EDT [facility] I45.19 Other right bundle-branch block Incomplete right bundl e branch block 05/12/2020 08:23:18 AM EDT [facility] 276.1 Hyponatremia Hyponatremia 05/12/2020 08:23:18 A M EDT [facility] 780.2 Syncope Syncope 05/12/2020 08:23:18 AM ED T [facility]
--- NOTE | 2020-09-25 19:56 | HPEPDOC ---
General Date of Admission 09/25/2020 Date of Service: Sep 25, 2020 Primary Care Physician: AMERICA MARC DO Chief Complaint The patient is a 75-year-old male admitted with a reason for visit of Fall. Source: Patient History of Present Illness Mr. Heller is a 75 year old male history of diabetes mellitus type 2, hypertension, and noncompliance who is here for a syncopal event. He was here in April 2020 for a similar event. Patient is very anxious and slightly confused. He goes off on tangents. He tells me that he lost his PCP, , and has been without medications for a few months. His brother, Radhames, also reported this and says that the patient refuses to find a new PCP. Yesterday the patient was feeling well. When he woke up today, he wasn't feeling well, but wasn't able to describe why. He was at the kitchen table taking care of some bills. He tried to stand up, but he couldn't. He felt that his legs were weak. The next thing he knows, he was on the floor. He denied any chest pain, shortness of breath, or palpitations. He did have lightheadedness. He laid on the floor for an hour and a half before trying to call for his brother. His brother arrived and called for EMS. When I saw him in the ED, he was anxious and depressed. He told me that many of his family members have . Otherwise, he was A&O 2, he did not know the year. He felt that his memory wasn't very good right now. Workup in the ED was only significant for a small joint effusion in the left knee. Otherwise CT head was negative, chest x-ray was negative, CT C-spine was negative. No signs of infection in the urine. Urine tox was negative. No leukocytosis. CPK was within normal limits. No renal failure. No leukocytosis or anemia. Patient will be admitted for syncope and noncompliance. When I spoke with his brother, Radhames, he was thinking that the patient may not be able to live alone anymore. Home Medications Scheduled Amlodipine Besylate (Amlodipine Besylate) 5 Mg Tablet, 5 MG PO DAILY, (Reported) Atenolol (Atenolol) 50 Mg Tablet, 50 MG PO DAILY, (Reported) Cholecalciferol (Vitamin D3) (Vitamin D3) 50 Mcg Tablet, 50 MCG PO DAILY, (Reported) Divalproex Sodium (Divalproex Sodium) 250 Mg Tablet.dr, 250 MG PO BID, (Reported) Finasteride (Finasteride) 5 Mg Tablet, 5 MG PO QHS, (Reported) Glimepiride (Glimepiride) 4 Mg Tablet, 4 MG PO DAILY, (Reported) Losartan Potassium (Losartan Potassium) 25 Mg Tablet, 25 MG PO QHS, (Reported) Lovastatin (Lovastatin) 40 Mg Tablet, 40 MG PO DAILY, (Reported) Sodium Chloride (Sodium Chloride) 1 Gm Tablet, 1 GM PO TID, (Reported) Tamsulosin HCl (Flomax) 0.4 Mg Capsule, 0.4 MG PO DAILY, (Reported) Miscellaneous Medications [Comments] , (Reported) MEDICATIONS TAKEN FROM LAST DISCHARGE AND EXTERNAL MED HISTORY Allergies Coded Allergies: morphine (Verified Allergy, Intermediate, HYPOTENSION, 05/09/20) Past Medical History Medical History 1. Hypertension 2. Diabetes Mellitus 2 3. Hyperlipidemia 4. Syncope Surgical History 1. Discectomy and lumbar laminectomy of L5-S1 herniated disc 2. Tonsillectomy Family History Father: Metastatic cancer, unknown primary Mother: Cancer, unknown type Social History * Smoker: Denies Alcohol: Denies Drugs: denies A-FIB/CHADSVASC A-FIB History Current/History of A-Fib/PAF?: No Review of Systems Constitutional: Denies: Chills, Fever Eyes: Denies: Vision change ENT: Denies: Sore Throat Skin: Denies: Rash Pulmonary: Denies: Dyspnea, Cough Cardiovascular: Reports: Lt Headedness; Denies: Chest Pain Gastrointestinal: Denies: Nausea, Abdominal Pain Genitourinary: Denies: Dysuria Hematologic: Denies: Bruising Musculoskeletal: Reports: Back Pain Neurological: Denies: Numbness Psych: Reports: Anxiety, Memory Issues Physical Examination General Exam: Positive: Cooperative Eye Exam: Positive: EOMI; Negative: Sclera icteric ENT Exam: Positive: Atraumatic Chest Exam: Positive: Clear to auscultation; Negative: Rales, Rhonchi, Wheezing Heart Exam: Positive: Rate Normal, Regular Rhythm Abdomen Exam: Positive: Normal bowel sounds, Soft; Negative: Tenderness Extremity Exam: Negative: Edema Neuro Exam: Positive: Normal Speech Psych Exam: Positive: Anxiety; Negative: Memory Intact, Oriented x 3 Vital Signs Vital Signs Date Time Temp Pulse Resp B/P (MAP) Pulse Ox O2 Delivery O2 Flow Rate FiO2 09/25/20 14:55 18 09/25/20 14:49 160/98 (118) 09/25/20 12:56 96.7 92 89 Room Air Laboratory Data Labs 24H Laboratory Tests 2 09/25/20 14:22: Immature Granulocyte % (Auto) 0.5, Neutrophils (%) (Auto) 70.5H, Lymphocytes (%) (Auto) 19.0L, Monocytes (%) (Auto) 8.9H, Eosinophils (%) (Auto) 0.6, Basophils (%) (Auto) 0.5, Neutrophils # (Auto) 5.9, Lymphocytes # (Auto) 1.6, Monocytes # (Auto) 0.7, Eosinophils # (Auto) 0.1, Basophils # (Auto) 0.0, Nucleated Red Blood Cells % (auto) 0.0, Prothrombin Time 13.4, Prothromb Time International Ratio 1.00, Activated Partial Thromboplast Time 32.3, Urine Color YELLOW, Urine Appearance CLEAR, Urine pH 6.0, Urine Specific [place] 1.027, Urine Protein 1+H, Urine Glucose (UA) 3+H, Urine Ketones TRACEH, Urine Blood NEGATIVE, Urine Nitrite NEGATIVE, Urine Bilirubin NEGATIVE, Urine Urobilinogen 0.2, Urine Leukocyte Esterase NEGATIVE, Urine WBC (Auto) 1, Urine RBC (Auto) 0, Urine Hyaline Casts (Auto) 0, Urine Bacteria (Auto) NEGATIVE, Urine Squamous Epithelial Cells 0, Urine Mucus (Auto) SMALL, Urine Sperm (Auto) , Anion Gap 8, Glomerular Filtration Rate > 60.0, Calcium Level 9.8, Total Bilirubin 1.0, Direct Bilirubin 0.4H, Aspartate Amino Transf (AST/SGOT) 16, Alanine Aminotransferase (ALT/SGPT) 26, Alkaline Phosphatase 152H, Ammonia < 10, Total Creatine Kinase 98, Creatine Kinase MB 1.9, Creatine Kinase MB Relative Index 1.94, Troponin I < 0.02, Total Protein 6.9, Albumin 3.6, Albumin/Globulin Ratio 1.1, Thyroid Stimulating Hormone (TSH) 2.430, Urine Opiates Screen NEGATIVE, Urine Methadone Screen NEGATIVE, Urine Barbiturates Screen NEGATIVE, Urine Phencyclidine Screen NEGATIVE, Urine Amphetamines Screen NEGATIVE, Urine Benzodiazepines Screen NEGATIVE, Urine Cocaine Metabolite Screen NEGATIVE, Urine Cannabinoids Screen NEGATIVE, Ethyl Alcohol Level 0.003 09/25/20 14:49: Bedside Glucose (Misc Panel) 220H CBC/BMP Laboratory Tests 09/25/20 14:22 Assessment/Plan Mr. Heller is a 75 year old male history of diabetes mellitus type 2, hypertension, and noncompliance who is here for a syncopal event. Patient will be worked up for syncope with telemetry monitoring and an echocardiogram. We will restart all of his home medications. Will order PT and OT. Plan / VTE VTE Prophylaxis Ordered?: Yes Plan Plan 1. Syncope Telemetry and echocardiogram ordered History of multiple syncopes in the past 2. Noncompliance with medication Patient needs to find a new PCP to continue his medications 3. Diabetes mellitus Hold glipizide Carbohydrate consistent diet Sliding scale insulin 4. Hypertension Continue amlodipine, atenolol, and losartan 5. Chronic hyponatremia Continue sodium chloride Sodium currently near baseline 6. BPH Continue finasteride and tamsulosin 7. DVT prophylaxis AMERICA Mosley DO Sep 25, 2020 18:11
--- NOTE | 2020-09-25 20:52 | ECGEPIP ---
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
[2020-09-25 21:16] VITALS: BP 149/97
[2020-09-25] MEDS: FINASTERIDE 5 MG TAB PO SCH (21:55)
[2020-09-25] MEDS: LOSARTAN 25 MG TAB PO SCH (21:56)
[2020-09-25] MEDS: HumaLOG INSULIN (NovoLOG) PER UNIT SC SCH (21:59)
[2020-09-25] MEDS: ACETAMINOPHEN TAB 650MG DOSE (2X325MG) PO PRN (22:45)
[2020-09-25] MEDS: SODIUM CHLORIDE 1 GM TAB PO SCH (22:46)
[2020-09-25] MEDS: DIVALPROEX 250 MG TAB PO SCH (22:46)
[2020-09-25 23:25] VITALS: BP 145/93
[2020-09-26] MEDS: ACETAMINOPHEN TAB 650MG DOSE (2X325MG) PO PRN ×3 (05:48→18:33)
[2020-09-26 06:00] VITALS: BP 119/75
[2020-09-26 06:25] LABS: HEMATOCRIT 43.3 % (42.0-52.0); HEMOGLOBIN 14.9 g/dl (13.5-17.5); MEAN CORPUSCULAR HEMOGLOBIN 28.8 pg (27.0-33.0); MEAN CORPUSCULAR HGB CONC 34.4 g/dl (32.0-36.5); MEAN CORPUSCULAR VOLUME 83.8 fl (80.0-96.0); PLATELET COUNT, AUTOMATED 288 10^3/uL (150-450); RED BLOOD COUNT 5.17 10^6/uL (4.30-6.10); WHITE BLOOD COUNT 7.6 10^3/uL (4.0-10.0)
[2020-09-26 06:56] LABS: BLOOD UREA NITROGEN 20 MG/DL (7-18); CARBON DIOXIDE LEVEL 26 MEQ/L (21-32); CHLORIDE LEVEL 94 MEQ/L (98-107); CREATININE FOR GFR 0.78 MG/DL (0.70-1.30); GLOMERULAR FILTRATION RATE > 60.0 (>42); GLUCOSE, FASTING 226 MG/DL (70-100); POTASSIUM SERUM 3.8 MEQ/L (3.5-5.1); SODIUM LEVEL 129 MEQ/L (136-145)
[2020-09-26 07:53] LABS: HEMOGLOBIN A1c 9.4 %
[2020-09-26] MEDS: DIVALPROEX 250 MG TAB PO SCH ×2 (07:59→21:30)
[2020-09-26] MEDS: HumaLOG INSULIN (NovoLOG) PER UNIT SC SCH ×4 (07:59→21:00)
[2020-09-26] MEDS: SODIUM CHLORIDE 1 GM TAB PO SCH ×3 (08:00→21:30)
[2020-09-26] MEDS: TAMSULOSIN 0.4 MG CAP PO SCH (08:00)
[2020-09-26] MEDS: ENOXAPARIN 40MG/0.4ML SYRINGE (J1650 PER 10MG) SC SCH (08:00)
[2020-09-26] MEDS: SIMVASTATIN 40 MG TAB PO SCH (08:00)
[2020-09-26] MEDS: atenoloL 50 MG TAB PO SCH (08:59)
[2020-09-26] MEDS: amLODIPine 5 MG TAB PO SCH (09:00)
[2020-09-26 11:00] VITALS: BP_SYST 127; BP_SYST 130; BP_SYST 134; BP_DIAS 80; BP_DIAS 88; BP_DIAS 93
--- NOTE | 2020-09-26 12:54 | IPNPDOC ---
Date Seen The patient was seen on 09/26/20. Progress Note SUBJECTIVE: , Denies palpitations, lightheadedness, dizziness, near syncope. Denies headache, changes in vision Telemetry. No tachyarrhythmias OBJECTIVE PHYSICAL EXAMINATION: VITAL SIGNS: Please see below. General Exam: Positive: Cooperative. No respiratory distress Eye Exam: Positive: EOMI; Negative: Sclera icteric ENT Exam: Positive: Atraumatic, no JVD, no carotid bruit Chest Exam: Positive: Clear to auscultation; Negative: Rales, Rhonchi, Wheezing Heart Exam: Positive: Rate Normal, Regular Rhythm Abdomen Exam: Positive: Normal bowel sounds, Soft; Negative: Tenderness Extremity Exam: Negative: Edema Neuro Exam: Positive: Normal Speech. 5 out of 5 motor function 4 extremities . No pronator drift. Negative Babinski bilaterally. No dysmetria on finger to nose testing Psych Exam: Positive: Anxiety; Negative: Memory Intact, Oriented x 3 LABORATORY DATA, IMAGING STUDIES, MICROBIOLOGY: Please see below. ASSESSMENT AND PLAN: 75 year old male who lives alone with history of diabetes mellitus type 2, hypertension, and noncompliance Syncopal episode in April 2020 with negative MRI, MRA of the brain and carotid Dopplers admitted yesterday due to complaints of syncope while he was writing checks paying his bills on the kitchen table. He denies any prodromal symptoms. Recurrent syncope -Patient has negative orthostatic vital signs, no tachyarrhythmia on telemetry, normal echocardiogram with ejection fraction 60% with valvular disease on echo read by on April 2020, normal MRI of the brain, MRA of the brain and carotid Dopplers in April. glucose was 201 on ED arrival. -continue on telemetry monitoring. -EEG -ARU screen -may need [employer] monitor as outpt DM2 -consistent carbs diet, insulin sliding scale HTN -resume meds Debility -ARU Screen disposition: negative workup so far. ARU screen. dc home in am if cleared by physical therapy. pt lives alone . VS, I&O, 24H, Fishbone Vital Signs/I&O Vital Signs Date Time Temp Pulse Resp B/P (MAP) Pulse Ox O2 Delivery O2 Flow Rate FiO2 09/26/20 11:00 94 134/88 (103) 70 130/93 (105) 103 127/80 (96) 09/26/20 06:00 98.7 14 92 Room Air I&O- Last 24 Hours up to 6 AM 09/26/20 06:00 Intake Total 400 ml Output Total 475 ml Balance -75 ml Laboratory Data 24H LABS Laboratory Tests 2 09/25/20 14:22: Immature Granulocyte % (Auto) 0.5, Neutrophils (%) (Auto) 70.5H, Lymphocytes (%) (Auto) 19.0L, Monocytes (%) (Auto) 8.9H, Eosinophils (%) (Auto) 0.6, Basophils (%) (Auto) 0.5, Neutrophils # (Auto) 5.9, Lymphocytes # (Auto) 1.6, Monocytes # (Auto) 0.7, Eosinophils # (Auto) 0.1, Basophils # (Auto) 0.0, Nucleated Red Blood Cells % (auto) 0.0, Prothrombin Time 13.4, Prothromb Time International Ra renetta 1.00, Activated Partial Thromboplast Time 32.3, Urine Color YELLOW, Urine Appearance CLEAR, Urine pH 6.0, Urine Specific [place] 1.027, Urine Protein 1+H, Urine Glucose (UA) 3+H, Urine Ketones TRACEH, Urine Blood NEGATIVE, Urine Nitrite NEGATIVE, Urine Bilirubin NEGATIVE, Urine Urobilinogen 0.2, Urine Leukocyte Esterase NEGATIVE, Urine WBC (Auto) 1, Urine RBC (Auto) 0, Urine Hyaline Casts (Auto) 0, Urine Bacteria (Auto) NEGATIVE, Urine Squamous Epithelial Cells 0, Urine Mucus (Auto) SMALL, Urine Sperm (Auto) , Anion Gap 8, Glomerular Filtration Rate > 60.0, Calcium Level 9.8, Total Bilirubin 1.0, Direct Bilirubin 0.4H, Aspartate Amino Transf (AST/SGOT) 16, Alanine Aminotransferase (ALT/SGPT) 26, Alkaline Phosphatase 152H, Ammonia < 10, Total Creatine Kinase 98, Creatine Kinase MB 1.9, Creatine Kinase MB Relative Index 1.94, Troponin I < 0.02, Total Protein 6.9, Albumin 3.6, Albumin/Globulin Ratio 1.1, Thyroid Stimulating Hormone (TSH) 2.430, Urine Opiates Screen NEGATIVE, Urine Methadone Screen NEGATIVE, Urine Barbiturates Screen NEGATIVE, Urine Phencyclidine Screen NEGATIVE, Urine Amphetamines Screen NEGATIVE, Urine Benzodiazepines Screen NEGATIVE, Urine Cocaine Metabolite Screen NEGATIVE, Urine Cannabinoids Screen NEGATIVE, Ethyl Alcohol Level 0.003 09/25/20 14:49: Bedside Glucose (Misc Panel) 220H 09/25/20 17:30: Coronavirus (COVID-19)(PCR) NEGATIVE, Influenza Type A (RT-PCR) NEGATIVE, Influenza Type B (RT-PCR) NEGATIVE, Respiratory Syncytial Virus (PCR) NEGATIVE 09/25/20 21:41: Bedside Glucose (Misc Panel) 290H 09/26/20 05:57: Nucleated Red Blood Cells % (auto) 0.0, Anion Gap 9, Glomerular Filtration Rate > 60.0, Estimated Mean Plasma Glucose 223H, Hemoglobin A1c 9.4, Calcium Level 9.0 09/26/20 11:30: Bedside Glucose (Misc Panel) 228H CBC/BMP Laboratory Tests 09/25/20 14:22 09/26/20 05:57 WARREN RUEDA MD Sep 26, 2020 12:48
[2020-09-26 14:17] VITALS: BP 108/70
[2020-09-26] MEDS: FINASTERIDE 5 MG TAB PO SCH (21:30)
[2020-09-26] MEDS: LOSARTAN 25 MG TAB PO SCH (21:30)
[2020-09-26 22:00] VITALS: BP 134/85
[2020-09-27 06:00] VITALS: BP 134/85
[2020-09-27 06:28] LABS: HEMATOCRIT 42.2 % (42.0-52.0); MEAN CORPUSCULAR HEMOGLOBIN 28.4 pg (27.0-33.0); MEAN CORPUSCULAR HGB CONC 33.2 g/dl (32.0-36.5); MEAN CORPUSCULAR VOLUME 85.6 fl (80.0-96.0); PLATELET COUNT, AUTOMATED 275 10^3/uL (150-450); RED BLOOD COUNT 4.93 10^6/uL (4.30-6.10)
[2020-09-27 06:44] LABS: BLOOD UREA NITROGEN 20 MG/DL (7-18); CALCIUM LEVEL 9.1 MG/DL (8.8-10.2); CARBON DIOXIDE LEVEL 25 MEQ/L (21-32); CHLORIDE LEVEL 98 MEQ/L (98-107); CREATININE FOR GFR 0.72 MG/DL (0.70-1.30); GLOMERULAR FILTRATION RATE > 60.0 (>42); GLUCOSE, FASTING 220 MG/DL (70-100); POTASSIUM SERUM 3.6 MEQ/L (3.5-5.1); SODIUM LEVEL 131 MEQ/L (136-145)
[2020-09-27] MEDS: ACETAMINOPHEN TAB 650MG DOSE (2X325MG) PO PRN ×2 (09:20→16:36)
[2020-09-27] MEDS: DIVALPROEX 250 MG TAB PO SCH ×2 (09:20→20:25)
[2020-09-27] MEDS: atenoloL 50 MG TAB PO SCH (09:21)
[2020-09-27] MEDS: GLIMEPIRIDE 2 MG TAB PO SCH (09:21)
[2020-09-27] MEDS: SODIUM CHLORIDE 1 GM TAB PO SCH ×3 (09:21→20:25)
[2020-09-27] MEDS: amLODIPine 5 MG TAB PO SCH (09:21)
[2020-09-27] MEDS: SIMVASTATIN 40 MG TAB PO SCH (09:21)
[2020-09-27] MEDS: TAMSULOSIN 0.4 MG CAP PO SCH (09:21)
[2020-09-27] MEDS: HumaLOG INSULIN (NovoLOG) PER UNIT SC SCH ×4 (09:22→21:00)
[2020-09-27] MEDS: ENOXAPARIN 40MG/0.4ML SYRINGE (J1650 PER 10MG) SC SCH (09:22)
--- NOTE | 2020-09-27 10:34 | IPNPDOC ---
Date Seen The patient was seen on 09/27/20. Progress Note SUBJECTIVE: Telemetry sinus rhythm overnight. Patient complained of back pain 7/10 on a pain scale with radiating pain down the leg after having a bowel movement yesterday. Patient refuses to have an MRI of the Lumbar spine to further evaluate. He denies any urine or bowel incontinence. No recurrent syncopal episode. Patient wanted to speak with a clergyman or Tiago Dang. He has been increasingly depressed since His . He denies active suicidal or homicidal thoughts or plans. He is anxious to go home today. "I'm going home today. No matter what." OBJECTIVE PHYSICAL EXAMINATION: VITAL SIGNS: Please see below. General Exam: Positive: Cooperative. No respiratory distress Eye Exam: Positive: EOMI; Negative: Sclera icteric ENT Exam: Positive: Atraumatic, no JVD, no carotid bruit No cervical lymphadenopathy. No stridor Chest Exam: Positive: Clear to auscultation; Negative: Rales, Rhonchi, Wheezing Heart Exam: Positive: Rate Normal, Regular Rhythm , S1, S2, noNdisplaced point of maximal impulse Abdomen Exam: Positive: Normal bowel sounds, Soft; , Nondistended Negative: Tenderness Extremity Exam: Negative: Edema Neuro Exam: Positive: Normal Speech. 5 out of 5 motor function 4 extremities . No pronator drift. Negative Babinski bilaterally. No dysmetria on finger to nose testing Psych Exam: Positive: Anxiety; Negative: Memory Intact, Oriented x 3 LABORATORY DATA, IMAGING STUDIES, MICROBIOLOGY: Please see below. ASSESSMENT AND PLAN: 75 year old male who lives alone with history of diabetes mellitus type 2, hypertension, and noncompliance Syncopal episode in April 2020 with negative MRI, MRA of the brain and carotid Dopplers admitted yesterday due to complaints of syncope while he was writing checks paying his bills on the kitchen table. He denies any prodromal symptoms. Recurrent syncope -Patient has negative orthostatic vital signs, no tachyarrhythmia on telemetry, normal echocardiogram with ejection fraction 60% with valvular disease on echo read by on April 2020, normal MRI of the brain, MRA of the brain and carotid Dopplers in April. glucose was 201 on ED arrival. -Unremarkable telemetry monitoring. -No signs of peripheral vertigo. No recent complaints to suggest labyrinthitis -EEG , 09/27/2020 -PT/OT clearance prior to discharge home -may need [employer] monitor as outpt. -PCP to refer to cardiology, Dr. Collazo for further workup DM2 -consistent carbs diet, insulin sliding scale HTN -resumed meds Lumbar radiculopathy with possible spinal stenosis -History of lumbar fusion -Patient refuses to have evaluation and does not want an MRI of the lumbar spine today -PT, OT consulted Debility -ARU Screen disposition: negative workup so far. ARU screen. dc home after EEG if cleared by physical therapy And occupational therapy. pt lives alone . Patient family services consulted VS, I&O, 24H, Fishbone Vital Signs/I&O Vital Signs Date Time Temp Pulse Resp B/P (MAP) Pulse Ox O2 Delivery O2 Flow Rate FiO2 09/27/20 09:21 102 143/87 09/27/20 06:00 96.8 18 95 Room Air I&O- Last 24 Hours up to 6 AM 09/27/20 06:00 Intake Total 2830 ml Output Total 975 ml Balance 1855 ml Laboratory Data 24H LABS Laboratory Tests 2 09/26/20 11:30: Bedside Glucose (Misc Panel) 228H 09/26/20 16:38: Bedside Glucose (Misc Panel) 270H 09/26/20 20:39: Bedside Glucose (Misc Panel) 214H 09/27/20 06:08: Nucleated Red Blood Cells % (auto) 0.0, Anion Gap 8, Glomerular Filtration Rate > 60.0, Calcium Level 9.1 CBC/BMP Laboratory Tests 09/27/20 06:08 WARREN RUEDA MD Sep 27, 2020 10:34
[2020-09-27 14:00] VITALS: BP 103/66
[2020-09-27 14:10] VITALS: BP 109/68
[2020-09-27 14:15] VITALS: BP 113/67
[2020-09-27 14:25] VITALS: BP 113/69
--- NOTE | 2020-09-27 15:37 | REP ---
INDICATION: syncope COMPARISON: 09/25/2020 TECHNIQUE: Axial noncontrast images from the skull base to the thoracic inlet with coronal reformations. This CT examination was performed using the following dose reduction techniques: Automated exposure control, adjustment of mA and/or kv according to the patient's size, and use of iterative reconstruction technique. FINDINGS: Atrophy with periventricular leukomalacia and microvascular ischemic changes are appreciated. The ventricles and sulci are symmetric. Miller-white differentiation is maintained. There is no evidence for acute intracranial hemorrhage, mass/mass effect, pathology or infarction. No extra-axial fluid collection. Calvarium is intact. Paranasal sinuses and mastoid air cells are clear. IMPRESSION: Atrophy and microvascular ischemic changes. No acute intracranial hemorrhage, infarction, or mass/mass effect. <Electronically signed by Junito Parker > 09/27/20 0292
--- NOTE | 2020-09-27 15:55 | EEG ---
ELECTROENCEPHALOGRAM DATE: 09/27/2020 REFERRING PHYSICIAN: Edwin Paz DO. DIAGNOSIS: Syncope versus seizure. EEG #21-21 HISTORY: Patient is a 75-year-old man with diabetes, hypertension, noncompliance who had episode of passing out spell like in April 2020. This EEG was done to rule out epileptic potential. He is currently taking Depakote, atenolol, amlodipine, Proscar, simvastatin, and glimepiride. TECHNICAL DESCRIPTION: This digital EEG was recorded by 21-scalp, ear, and two EKG electrodes and was reviewed in bipolar and referential montages following reformatting in 10-20 international electrode placement system. INTERPRETATION: Patient was noted to be in awake and drowsy states during this EEG. Rest and awake background rhythm consisted of well-formed posterior dominant rhythm with anterior/posterior gradient comprising 8.5 Hz of activity measuring 15-20 microvolts in amplitude which was symmetric and reactive to eye opening. Attenuation of posterior dominant rhythm was seen during transition to drowsiness. No sleep was achieved. Hyperventilation could not be performed. Photic stimulation remained unremarkable. No focal, lateralizing, or epileptiform abnormalities were seen. No relevant clinical activity was noted. EKG revealed normal sinus rhythm. CONCLUSION: This EEG in awake and drowsy states is within normal limits.
[2020-09-27] MEDS: FINASTERIDE 5 MG TAB PO SCH (20:24)
[2020-09-27] MEDS: LOSARTAN 25 MG TAB PO SCH (20:25)
[2020-09-27 22:00] VITALS: BP 142/87
[2020-09-28 06:00] VITALS: BP 141/83
[2020-09-28 06:25] LABS: HEMATOCRIT 42.3 % (42.0-52.0); HEMOGLOBIN 14.2 g/dl (13.5-17.5); MEAN CORPUSCULAR HEMOGLOBIN 28.9 pg (27.0-33.0); MEAN CORPUSCULAR HGB CONC 33.6 g/dl (32.0-36.5); PLATELET COUNT, AUTOMATED 251 10^3/uL (150-450); RED BLOOD COUNT 4.92 10^6/uL (4.30-6.10); WHITE BLOOD COUNT 5.4 10^3/uL (4.0-10.0)
[2020-09-28 06:42] LABS: BLOOD UREA NITROGEN 21 MG/DL (7-18); CALCIUM LEVEL 8.9 MG/DL (8.8-10.2); CARBON DIOXIDE LEVEL 27 MEQ/L (21-32); CHLORIDE LEVEL 101 MEQ/L (98-107); CREATININE FOR GFR 0.69 MG/DL (0.70-1.30); GLOMERULAR FILTRATION RATE > 60.0 (>42); GLUCOSE, FASTING 143 MG/DL (70-100); POTASSIUM SERUM 3.7 MEQ/L (3.5-5.1); SODIUM LEVEL 134 MEQ/L (136-145)
[2020-09-28] MEDS: amLODIPine 5 MG TAB PO SCH (07:52)
[2020-09-28] MEDS: ACETAMINOPHEN TAB 650MG DOSE (2X325MG) PO PRN ×2 (07:53→19:34)
[2020-09-28] MEDS: ENOXAPARIN 40MG/0.4ML SYRINGE (J1650 PER 10MG) SC SCH (07:53)
[2020-09-28] MEDS: atenoloL 50 MG TAB PO SCH (07:53)
[2020-09-28] MEDS: DIVALPROEX 250 MG TAB PO SCH ×2 (07:54→20:00)
[2020-09-28] MEDS: SIMVASTATIN 40 MG TAB PO SCH (07:54)
[2020-09-28] MEDS: SODIUM CHLORIDE 1 GM TAB PO SCH ×3 (07:54→19:59)
[2020-09-28] MEDS: TAMSULOSIN 0.4 MG CAP PO SCH (07:54)
[2020-09-28] MEDS: GLIMEPIRIDE 2 MG TAB PO SCH (07:54)
[2020-09-28] MEDS: HumaLOG INSULIN (NovoLOG) PER UNIT SC SCH ×4 (07:55→21:00)
--- NOTE | 2020-09-28 12:20 | IPNPDOC ---
Date Seen The patient was seen on 09/28/20. Progress Note SUBJECTIVE: Patient had a near syncopal episode yesterday, felt faint and lightheaded after returning from electroencephalogram and was unresponsive for a few minutes according to nursing without any postictal confusion, seizure activity. He was not orthostatic. There is no arrhythmia on telemetry and remained in sinus rhythm with the lowest rate is 62. Per data center technician. The patient had to be assisted back to bed from the bathroom By his nurse and the occupational therapist is working with him at the time . He was not having a bowel movement while this happened.. Glucose was within normal over 120 mg/dL. He denied any diaphoresis, feeling of impending doom, n/v/headache, palpitations. Objective PHYSICAL EXAMINATION: VITAL SIGNS: Please see below. General Exam: Disheveled, agitated, anxious Eye Exam: Anicteric. No jaundice ENT Exam: Neck is supple, full range of motion, , No stridor no JVD or carotid bruit No cervical lymphadenopathy. No stridor Chest Exam: Air entry is equal bilaterally. Clear to Auscultation bilaterally Heart Exam: S1, S2 , S1, S2, noNdisplaced point of maximal impulse Abdomen Exam: Positive: Normal bowel sounds, Soft; , Nondistended, obese Negative: Tenderness Extremity Exam: Negative: Edema Neuro Exam: Positive: Normal Speech. 5 out of 5 motor function 4 extremities . No pronator drift. Negative Babinski bilaterally. No dysmetria on finger to nose testing Psych Exam: Positive: Anxiety; Negative: Memory Intact, Oriented x 3 LABORATORY DATA, IMAGING STUDIES, MICROBIOLOGY: Please see below. ASSESSMENT AND PLAN: 75 year old male who lives alone with history of diabetes mellitus type 2, hypertension, and noncompliance Syncopal episode in April 2020 with negative MRI, MRA of the brain and carotid Dopplers admitted yesterday due to complaints of syncope while he was writing checks paying his bills on the kitchen table. He denies any prodromal symptoms. Recurrent syncope -Patient has negative orthostatic vital signs, no tachyarrhythmia on telemetry, normal echocardiogram with ejection fraction 60% with valvular disease on echo read by on April 2020, normal MRI of the brain, MRA of the brain and carotid Dopplers in April. glucose was 201 on ED arrival. -Unremarkable telemetry monitoring. -No signs of peripheral vertigo. No recent complaints to suggest labyrinthitis -EEG , 09/27/2020. Normal without epileptiform activity -Repeat CT head to 09/27. Negative -may need [employer] monitor as outpt. -PCP to refer to cardiology, Dr. Collazo for further workup -Patient refuses repeat MRI, MRA of the brain, carotids today -since the patient lives alone, he will need supervision,but refuses assisted living. his sister in law and brother state "He does what he wants, and doesn't even let home care in his house." DM2 -consistent carbs diet, insulin sliding scale HTN -resumed meds -Not orthostatic Lumbar radiculopathy with possible spinal stenosis -History of lumbar fusion -Patient refuses to have evaluation and does not want an MRI of the lumbar spine today -PT, OT consulted Debility -ARU Screen disposition: pt will need supervision at home due to recurrent near syncopal episodes, but he insists on leaving AMA. VS, I&O, 24H, Fishbone Vital Signs/I&O Vital Signs Date Time Temp Pulse Resp B/P (MAP) Pulse Ox O2 Delivery O2 Flow Rate FiO2 09/28/20 07:52 78 129/73 09/28/20 06:00 97.8 18 95 Room Air I&O- Last 24 Hours up to 6 AM 09/28/20 06:00 Intake Total 2100 ml Output Total 800 ml Balance 1300 ml Laboratory Data 24H LABS Laboratory Tests 2 09/27/20 14:06: Bedside Glucose (Misc Panel) 124H 09/27/20 16:46: Bedside Glucose (Misc Panel) 224H 09/27/20 20:37: Bedside Glucose (Misc Panel) 202H 09/28/20 06:02: Nucleated Red Blood Cells % (auto) 0.0, Anion Gap 6L, Glomerular Filtration Rate > 60.0, Calcium Level 8.9 09/28/20 11:44: Bedside Glucose (Misc Panel) 241H CBC/BMP Laboratory Tests 09/28/20 06:02 WARREN RUEDA MD Sep 28, 2020 12:15
[2020-09-28] MEDS ORDERED: MIRALAX *UNIT DOSE* 17GM PACKET PO PRN (12:45)
[2020-09-28 14:00] VITALS: BP 130/74
[2020-09-28] MEDS: FINASTERIDE 5 MG TAB PO SCH (19:59)
[2020-09-28] MEDS: LOSARTAN 25 MG TAB PO SCH (20:00)
[2020-09-28 22:00] VITALS: BP 135/78
[2020-09-29 06:00] VITALS: BP 147/90
[2020-09-29 07:00] LABS: HEMOGLOBIN 14.4 g/dl (13.5-17.5); MEAN CORPUSCULAR HEMOGLOBIN 28.2 pg (27.0-33.0); MEAN CORPUSCULAR HGB CONC 32.7 g/dl (32.0-36.5); MEAN CORPUSCULAR VOLUME 86.3 fl (80.0-96.0); PLATELET COUNT, AUTOMATED 287 10^3/uL (150-450); WHITE BLOOD COUNT 4.6 10^3/uL (4.0-10.0)
[2020-09-29 07:24] LABS: BLOOD UREA NITROGEN 18 MG/DL (7-18); CALCIUM LEVEL 9.1 MG/DL (8.8-10.2); CARBON DIOXIDE LEVEL 25 MEQ/L (21-32); CHLORIDE LEVEL 98 MEQ/L (98-107); CREATININE FOR GFR 0.71 MG/DL (0.70-1.30); GLOMERULAR FILTRATION RATE > 60.0 (>42); GLUCOSE, FASTING 134 MG/DL (70-100); POTASSIUM SERUM 4.1 MEQ/L (3.5-5.1); SODIUM LEVEL 132 MEQ/L (136-145)
[2020-09-29] MEDS: TAMSULOSIN 0.4 MG CAP PO SCH (08:13)
[2020-09-29] MEDS: SODIUM CHLORIDE 1 GM TAB PO SCH ×3 (08:13→20:36)
[2020-09-29] MEDS: DIVALPROEX 250 MG TAB PO SCH ×2 (08:13→20:36)
[2020-09-29] MEDS: ENOXAPARIN 40MG/0.4ML SYRINGE (J1650 PER 10MG) SC SCH (08:13)
[2020-09-29] MEDS: GLIMEPIRIDE 2 MG TAB PO SCH (08:13)
[2020-09-29] MEDS: SIMVASTATIN 40 MG TAB PO SCH (08:13)
[2020-09-29] MEDS: amLODIPine 5 MG TAB PO SCH (08:14)
[2020-09-29] MEDS: atenoloL 50 MG TAB PO SCH (08:14)
[2020-09-29] MEDS: HumaLOG INSULIN (NovoLOG) PER UNIT SC SCH ×4 (08:15→20:37)
--- NOTE | 2020-09-29 09:36 | MHCR ---
CONSULTATION DATE: 09/28/2020 CHIEF COMPLAINT: He says he is fine. SUBJECTIVE: He is 75 years old, lives on his own. I have been asked to see him by Dr. Armstrong, hospitalist, to make an assessment regarding his capacity to make the decision to go home. Chart is reviewed, Patient is interviewed. Some of the history is obtained from the chart, and some from the staff looking after him, who has had considerable concerns regarding his ability to look after himself, given his current state. He has a history of diabetes mellitus type 2, hypertension and he has a history of nonadherence of treatment recommendations. He had come in after he had fallen, apparently had a syncopal event. He is a little vague about this, says he was writing checks at home, and that he somehow fell. He says he does not remember much of anything in essence after that, except for the ambulance being there. He later suggests his neighbor may have called the ambulance, then says his brother may have been involved. There have been concerns regarding his ability to look after himself, including last April, when he had a similar syncopal attack, was here, hospitalized and during that stay was seen by psychiatry, Dr. Pennington, regarding his capacity to make the decision to go home. It is felt that he may lack the capacity possibly, but an exam was not done formally, as he had, at that time, agreed to stay. Similar circumstances now, somewhat. He was seen by Dr. Rushing, primary care, but says Dr. Rushing discharged him. The patient is puzzled as to why since he says they have known each other for a long time. From what I understand, he does not have a primary med care manager, and the chart reports that he refuses to find one. It should also be noted that the patient has a difficult time relating a coherent history, he is quite tangential, the thought processes are coherent only for brief periods. He says he looks after himself, and that he does the washing and cleaning, without any major problems. Collateral information, however, from the staff have indicated that his family, mainly his brother, has reported the patient's house may not even have water, though I am not sure of that, and that it is quite unsanitary, possibly risky. They have had concerns about his ability to look after himself and, repeatedly declined, refused, outside interventions, even when they have been offered, including at the last hospitalization, such as public health or social security benefits interviewer or home health aides. During his stay here, he has been seen by various clinicians, including physical therapy, occupational therapy, who have considerable concerns regarding his ability to function. He, however, says that they saw him and they declared him fine. He speaks about having lost several family members, extended family members, for the last couple of years. He also speaks about his who several years ago, says he looked after her for a couple of years. He says his mother is in the keep home, and it has been a while since he has had contact with her. He says she is in her early 90s. He says he has a neighbor, later suggested that neighbors were unfriendly towards him. 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 When seen in the emergency room, by the hospitalist, the patient is noted to be anxious and depressed, there is some element of confusion as well. There are some concerns that syncopal attacks may be secondary to autonomic dysfunction, possibly secondary to Parkinson's. He says he used to drive, but that he has not driven, but he is unable to tell when is the last time he did. He says he uses "transportation" but he is somewhat vague about this. He spoke of being in touch with various people, but that he no longer is in touch with them. He says he and his daughter, who is his only child, who lives in [facility], do not have much contact with each other. He is unable at present to indicate what led him to the hospital, other than the fall, or what his clinician has informed him as to the possible causes. He says the plan is to go home tomorrow, and was hoping that he would have been able to go home today. I understand he has used a walker, possibly at home as well, though he is somewhat vague on this. I am informed by staff that there are concerns regarding the state of his house. PAST PSYCHIATRIC HISTORY: Not aware of any of significance. MEDICAL HISTORY: As indicated above, he has a history of hypertension, diabetes mellitus, has recently had syncopal episodes, at least one in April, and now this most recent one. MEDICATIONS: Please see the list. These include MiraLax, Amaryl, Lovenox, Norvasc, atenolol, Zocor, Flomax, insulin, Depakote, Proscar, Cozaar (Losartan). ALLERGIES: MORPHINE. SOCIAL HISTORY: Lives on his own, is , has a daughter who he does not have much contact with. He has a brother locally, and [id number]. MENTAL STATUS EXAM: He is lying in bed, fairly neat and cooperative, no agitation, no psychomotor retardation. At times, it appears he may be hard of hearing, for a brief while. He has spontaneous speech, which is fluent. He is quite tangential, not sticking to the topic at hand, or what is being discussed, and there are non-sequiturs quite often, in answer to questions being asked. 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 Affect: Fairly broad. He denies any suicidal thoughts or intents. No evidence of any thoughts of harming anyone else. He does not appear internally preoccupied, no overt delusions elicited, no fluctuation of consciousness. He is oriented to place and person and to time. I was unable to perform a formal, further, cognitive assessment in terms of his concentration, or short term memory, as questions pertaining to that, when asked, result in the patient being quite tangential in his thoughts. That is also noted to be typical for much of the conversation, with considerable tangentiality. Intellect average, judgment and insight are poor. INVESTIGATIONS: A CT scan of the head done yesterday shows atrophy, microvascular ischemic changes, periventricular leukomalacia. 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 He is tangential in his thought processes, has fluent speech, he is coherent for relatively short periods. He is unable to indicate what has been suggested by his clinicians regarding the fall. He is alert, oriented to place, time, person. Tangential thoughts, his thought processes, considerably interfere with his current state, and I am unable to formally test for short-term memory, or concentration. He insists he is fine, and that physical therapy, occupational therapy here have no concerns, which is inaccurate. His judgment is poor, as is his insight. He is unable to indicate the risks of his going home, unable at present to display an appreciation of those risks, and the risks of lack of treatment. He is not able to indicate the benefits of treatment, either. Given the above, he does not have the capacity at present to make the decision to go home, in my opinion. RECOMMENDATIONS: Enhance current care, and work on safe discharge/disposition. I understand he has been offered home health assistance in the past, which he has declined. He does not have a primary med care manager, and the last one he had, who he had for many years, no longer sees him. It is possible, I wonder, if he was discharged by the primary med care manager as he was not adhering to recommendations. Thank you for the consult. If you have any questions, please call. The assessment took 40 minutes. BLAINE
[2020-09-29] MEDS: ACETAMINOPHEN TAB 650MG DOSE (2X325MG) PO PRN (15:23)
[2020-09-29] MEDS: FINASTERIDE 5 MG TAB PO SCH (20:36)
[2020-09-29] MEDS: LOSARTAN 25 MG TAB PO SCH (20:36)
[2020-09-29] MEDS ORDERED: KETOROLAC 30 MG/ML 1ML VIAL IV ONE (22:15)
[2020-09-29] MEDS ORDERED: KETOROLAC TROMETHAMINE 10 MG TAB PO ONE (23:45)
[2020-09-30 06:00] VITALS: BP 164/69
[2020-09-30 06:35] LABS: HEMATOCRIT 42.1 % (42.0-52.0); HEMOGLOBIN 14.3 g/dl (13.5-17.5); MEAN CORPUSCULAR HEMOGLOBIN 29.1 pg (27.0-33.0); MEAN CORPUSCULAR VOLUME 85.6 fl (80.0-96.0); PLATELET COUNT, AUTOMATED 263 10^3/uL (150-450); RED BLOOD COUNT 4.92 10^6/uL (4.30-6.10); WHITE BLOOD COUNT 4.9 10^3/uL (4.0-10.0)
[2020-09-30 06:57] LABS: BLOOD UREA NITROGEN 21 MG/DL (7-18); CALCIUM LEVEL 8.8 MG/DL (8.8-10.2); CARBON DIOXIDE LEVEL 27 MEQ/L (21-32); CHLORIDE LEVEL 98 MEQ/L (98-107); CREATININE FOR GFR 0.69 MG/DL (0.70-1.30); GLOMERULAR FILTRATION RATE > 60.0 (>42); GLUCOSE, FASTING 141 MG/DL (70-100); POTASSIUM SERUM 4.2 MEQ/L (3.5-5.1); SODIUM LEVEL 131 MEQ/L (136-145)
[2020-09-30] MEDS: atenoloL 50 MG TAB PO SCH (09:00)
[2020-09-30] MEDS: HumaLOG INSULIN (NovoLOG) PER UNIT SC SCH ×4 (09:27→21:00)
[2020-09-30] MEDS: TAMSULOSIN 0.4 MG CAP PO SCH (09:27)
[2020-09-30] MEDS: ENOXAPARIN 40MG/0.4ML SYRINGE (J1650 PER 10MG) SC SCH (09:27)
[2020-09-30] MEDS: GLIMEPIRIDE 2 MG TAB PO SCH (09:28)
[2020-09-30] MEDS: SODIUM CHLORIDE 1 GM TAB PO SCH ×3 (09:33→21:07)
[2020-09-30] MEDS: DIVALPROEX 250 MG TAB PO SCH ×2 (09:33→21:06)
[2020-09-30] MEDS: SIMVASTATIN 40 MG TAB PO SCH (09:33)
[2020-09-30] MEDS: amLODIPine 5 MG TAB PO SCH (09:33)
[2020-09-30] MEDS: ACETAMINOPHEN TAB 650MG DOSE (2X325MG) PO PRN ×2 (15:03→21:07)
[2020-09-30] MEDS: LOSARTAN 25 MG TAB PO SCH (21:00)
[2020-09-30] MEDS: FINASTERIDE 5 MG TAB PO SCH (21:06)
[2020-10-01 06:00] VITALS: BP 141/90
[2020-10-01] MEDS: TAMSULOSIN 0.4 MG CAP PO SCH (08:24)
[2020-10-01] MEDS: DIVALPROEX 250 MG TAB PO SCH ×2 (08:25→20:22)
[2020-10-01] MEDS: GLIMEPIRIDE 2 MG TAB PO SCH (08:25)
[2020-10-01] MEDS: SODIUM CHLORIDE 1 GM TAB PO SCH ×3 (08:25→20:22)
[2020-10-01] MEDS: atenoloL 50 MG TAB PO SCH (08:26)
[2020-10-01] MEDS: SIMVASTATIN 40 MG TAB PO SCH (08:27)
[2020-10-01] MEDS: amLODIPine 5 MG TAB PO SCH (08:27)
[2020-10-01] MEDS: HumaLOG INSULIN (NovoLOG) PER UNIT SC SCH ×4 (08:27→21:00)
[2020-10-01] MEDS: ENOXAPARIN 40MG/0.4ML SYRINGE (J1650 PER 10MG) SC SCH (08:27)
[2020-10-01] MEDS: ACETAMINOPHEN TAB 650MG DOSE (2X325MG) PO PRN ×2 (08:29→20:24)
[2020-10-01] MEDS: FINASTERIDE 5 MG TAB PO SCH (20:22)
[2020-10-01] MEDS: LOSARTAN 25 MG TAB PO SCH (20:23)
[2020-10-02] MEDS: PERCOCET 5MG/325MG TAB PO PRN ×2 (01:56→12:18)
[2020-10-02 06:00] VITALS: BP 143/88
[2020-10-02] MEDS: GLIMEPIRIDE 2 MG TAB PO SCH (08:22)
[2020-10-02 08:23] VITALS: BP 125/89
[2020-10-02] MEDS: ENOXAPARIN 40MG/0.4ML SYRINGE (J1650 PER 10MG) SC SCH (08:23)
[2020-10-02] MEDS: HumaLOG INSULIN (NovoLOG) PER UNIT SC SCH ×2 (08:23→12:18)
[2020-10-02] MEDS: DIVALPROEX 250 MG TAB PO SCH (08:23)
[2020-10-02] MEDS: SIMVASTATIN 40 MG TAB PO SCH (08:23)
[2020-10-02] MEDS: SODIUM CHLORIDE 1 GM TAB PO SCH (08:23)
[2020-10-02] MEDS: TAMSULOSIN 0.4 MG CAP PO SCH (08:23)
[2020-10-02] MEDS: amLODIPine 5 MG TAB PO SCH (08:23)
[2020-10-02] MEDS: atenoloL 50 MG TAB PO SCH (08:24)
[2020-10-02] MEDS: ACETAMINOPHEN TAB 650MG DOSE (2X325MG) PO PRN (08:25)
[2020-10-02] MEDS ORDERED: ALPRAZolam 0.5 MG TAB PO ONE ×2 (10:15→13:15)
--- NOTE | 2020-10-02 10:15 | DS.PDOC ---
Discharge Summary General Date of Admission Sep 25, 2020 at 18:11 Date of Discharge 10/02/20 DISCHARGED TO ASSISTED LIVING FACILITY IN [place], [place] Discharge Summary DISCHARGE DIAGNOSES: RECURRENT SYNCOPE AUTONOMIC DYSFUNCTION-NEEDS 24/7 SUPERVISION MENTALLY INCAPACITATED-UNABLE TO MAKE MEDICAL DECISIONS DISCHARGE MEDICATIONS:SEE BELOW ALLERGIES; SEE BELOW DISCHARGE INSTRUCTIONS: PCP TO DO A REFERRAL FOR RECURRENT SYNCOPE FOR [facility] [employer] [facility] PCP FU WITHIN 5 DAYS ASSISTED AMBULATION AND 24/7 SUPERVISION PCP TO REFER TO NEUROLOGY FOR RECURRENT SYNCOPE HOSPITAL COURSE 75 year old male who lives alone with history of diabetes mellitus type 2, hypertension, and noncompliance Syncopal episode in April 2020 with negative MRI, MRA of the brain and carotid Dopplers admitted yesterday due to complaints of syncope while he was writing checks paying his bills on the kitchen table. He denies any prodromal symptom s. Recurrent syncope/possible autonomic dysfunction -Patient has negative orthostatic vital signs, no tachyarrhythmia on telemetry, normal echocardiogram with ejection fraction 60% with valvular disease on echo read by on April 2020, normal MRI of the brain, MRA of the brain and carotid Dopplers in April. glucose was 201 on ED arrival. -Unremarkable telemetry monitoring. -No signs of peripheral vertigo. No recent complaints to suggest labyrinthitis -EEG , 09/27/2020. Normal without epileptiform activity -Repeat CT head to 09/27. Negative -may need xPeerient monitor as outpt. -PCP to refer to cardiology, Dr. Collazo for further workup -Patient refuses repeat MRI, MRA of the brain, carotids today -since the patient lives alone, he will need supervision,but refuses assisted living. his sister in law and brother state "He does what he wants, and doesn't even let home care in his house." DM2 -consistent carbs diet, insulin sliding scale HTN -resumed meds -Not orthostatic Lumbar radiculopathy with possible spinal stenosis -History of lumbar fusion -Patient refuses to have evaluation and does not want an MRI of the lumbar spine today -PT, OT consulted Debility -Placement disposition: pt will need supervision at home due to recurrent near syncopal episodes, AND MENTALLY INCAPACITATED TO MAKE MEDICAL DECISIONS. DISCHARGE PHYSICAL EXAMINATION: VITAL SIGNS: Please see below. General Exam: Disheveled, agitated, anxious Eye Exam: Anicteric. No jaundice ENT Exam: Neck is supple, full range of motion, , No stridor no JVD or carotid bruit No cervical lymphadenopathy. No stridor Chest Exam: Air entry is equal bilaterally. Clear to Auscultation bilaterally Heart Exam: S1, S2 , S1, S2, noNdisplaced point of maximal impulse Abdomen Exam: Positive: Normal bowel sounds, Soft; , Nondistended, obese Negative: Tenderness Extremity Exam: Negative: Edema Neuro Exam: Positive: Normal Speech. 5 out of 5 motor function 4 extremities . No pronator drift. Negative Babinski bilaterally. No dysmetria on finger to nose testing Psych Exam: Positive: Anxiety; Negative: Memory Intact, Oriented x 3 DISCHARGE LABORATORY DATA, IMAGING STUDIES, MICROBIOLOGY: Please see below. CT HEAD: Altered Mental Status. COMPARISON: None. TECHNIQUE: Helical scanning is acquired. 5 mm axial images were reformatted. Coronal MPR images were generated. FINDINGS: Digital preliminary mixer wet pour radiograph is unremarkable. On bone window settings the bony calvarium is intact. No fracture is seen. There is heavy vascular calcification in the distal internal carotid and distal vertebral arteries bilaterally. Visualized paranasal sinuses are clear. No intraorbital abnormality is seen. On soft tissue window settings, there is mild generalized volume loss. Small vessel atherosclerotic changes are again noted in the [place] ventricular white matter bilaterally in a pattern unchanged from the May 09, [address] There is no evidence of intracranial hemorrhage. No mass, extra-axial fluid collection, or midline shift is seen. No scalp hematoma is appreciated. No evidence of infarct. IMPRESSION: Extensive small-vessel atherosclerotic changes and marked vascular calcification. Some generalized volume loss. No acute intracranial abnormality.. <Electronically signed by Malvin Pollack > 09/25/[address] CERVICAL SPINE trauma. COMPARISON: Comparison study May 09, 2020.. TECHNIQUE: Helical scanning is acquired and overlapping 2 mm high resolution axial images were generated and reviewed at bone and soft tissue window settings. Coronal and sagittal multiplanar re-formations images are generated. FINDINGS: There is no evidence of cervical spine element fracture. No skull base fracture is seen. Cervical vertebral body heights are preserved. Alignment is normal. Facet joints are normally aligned bilaterally at each cervical level on multiplanar re-formations images. There is no evidence of intraspinal or paraspinal hematoma. No extra vertebral abnormality is seen. There are mild degenerative disc changes in the cervical spine as on the May 09, 2020 study. Osteoarthritic facet hypertrophy is noted also mild in degree. Some vascular calcification is seen in the carotid bifurcations bilaterally. IMPRESSION: No fracture or subluxation seen. Mild degenerative spondylosis changes. No acute abnormality. <Electronically signed by Malvin Pollack > 09/25/20 1508 LEFT KNEE XRAY: trauma COMPARISON: None. TECHNIQUE: Six views left knee. FINDINGS: There is no evidence of acute fracture, dislocation, or intrinsic bone disease.Mild arthritic changes are noted with mild diffuse joint space narrowing, subchondral sclerosis and chondrocalcinosis. There are tiny spurs of the lateral femoral condyle and tibial plateau. I suspect small joint effusion. IMPRESSION: No fracture or dislocation. Mild arthritic changes. Suspect small joint effusion. <Electronically signed by Dung Miller > 09/25/20 1622 DD: Dung Miller MD, MD 09/25/20 1617 PELVIC XRAY: trauma. COMPARISON: Comparison made with today's left knee radiographs.. TECHNIQUE: Four views. FINDINGS: Four views of the the left calf demonstrate vascular calcification in the soft tissues of the calf. No tibial fracture or. Fifty alert fracture is seen.. . No opaque foreign body noted. IMPRESSION: No acute fracture seen.. <Electronically signed by Malvin Pollack > 09/25/20 1621 DD: Weston Pollack MD 09/25/20 1619 DATE OF PROCEDURE: 05/10/2020 Age: Gender: Male Height: 193 cm Weight: 115 kg REFERRING PHYSICIAN: Iglesia Gordillo MD INDICATION: Syncope. MEASUREMENTS: 2D Measurements: Intraventricular septum 1.21 cm Posterior wall 1.06 cm Left ventricle diastole 4.4 cm Left atrium 3.2 cm Aortic root 3.5 cm Doppler Measurements: No aortic stenosis No aortic regurgitation Aortic valve velocity 88.8 cm/s LVOT velocity 72.2 cm/s No mitral regurgitation No mitral stenosis Mitral E velocity 63.2 cm/s Mitral A velocity 77.0 cm/s Mitral deceleration time 236 msec No tricuspid regurgitation No pulmonic regurgitation Pulmonary artery systolic pressure of 16 mmHg MITRAL ANNULAR TISSUE DOPPLER E prime septal 4.1 cm/s, E prime lateral 6.2 cm/s DESCRIPTION: Rhythm was sinus. This was a moderately technically difficult echocardiogram. No pericardial effusion. This was a 2D, M-mode, color flow Doppler, and pulsed wave Doppler examination including mitral annular tissue Doppler. CONCLUSIONS: 1. Normal left ventricle internal dimensions and wall thickness. Normal regional LV wall motion and wall thickening. Normal LV systolic function. LVEF 60% by visual estimate. Grade 1 LV diastolic dysfunction. 2. Very mild aortic valve sclerosis of 3-cuspid aortic valve. 3. Otherwise normal appearing echocardiogram Doppler findings. DD: Donnie Terrell MD [facility] 05/10/201699 DT: FERNY 05/11/20916 DS: TERRIE 05/21/202107 <Electronically signed by Donnie Terrell MD> 05/21/202107 Exam: MR Angiogram Head Without Contrast, Arteries Exam date and time: 05/11/2020 11:10 AM Age: 75 years old Clinical indication: Syncope and collapse; Additional info: Recurrent syncope/seizure TECHNIQUE: Imaging protocol: MR angiogram head without contrast. Exam focused on the arteries. 3D rendering (Not supervised by radiologist): MIP and/or 3D reconstructed images were created by the technologist. COMPARISON: CT Head without contrast 05/09/2020 1:26 PM FINDINGS: ANTERIOR CIRCULATION: Right internal carotid artery: Intracranial segment is patent with no significant stenosis. No aneurysm. Right middle cerebral artery: No occlusion or significant stenosis. No aneurysm. Right anterior cerebral artery: No occlusion or significant stenosis. No aneurysm. Left internal carotid artery: Intracranial segment is patent with no significant stenosis. No aneurysm. Left middle cerebral artery: No occlusion or significant stenosis. No aneurysm. Left anterior cerebral artery: No occlusion or significant stenosis. No aneurysm. POSTERIOR CIRCULATION: Right vertebral artery: No occlusion or significant stenosis. No aneurysm. Left vertebral artery: No occlusion or significant stenosis. No aneurysm. Basilar artery: No occlusion or significant stenosis. No aneurysm. Right posterior cerebral artery: No occlusion or significant stenosis. No aneurysm. Left posterior cerebral artery: No occlusion or significant stenosis. No aneurysm. IMPRESSION: No stenosis.No occlusion. No aneurysm. Electronically signed by: Juan C Cho On 05/11/2020 11:16:29 AM Exam: MR Head Without Contrast Exam date and time: 05/11/2020 11:10 AM Age: 75 years old Clinical indication: Syncope and collapse; Additional info: Seizure TECHNIQUE: Imaging protocol: MR of the head without contrast. COMPARISON: CT Head without contrast 05/09/2020 1:26 PM FINDINGS: Brain: There is moderate patchy increased T2 signal intensity within the bilateral cerebral periventricular white matter, consistent with chronic microvascular ischemic changes. There are multiple small focal areas of chronic ischemia in bilateral frontal, parietal and periatrial white matter. Chronic ischemic changes are seen in the siva. There is no abnormal diffusion weighted signal intensity to suggest an acute ischemic event. There is mild diffuse cerebral atrophy present, consistent with this patient's age. Ventricles: The ventricular system demonstrates mild diffuse compensatory enlargement. Bones/joints: Unremarkable. Sinuses: Mild mucosal thickening is seen in the paranasal sinuses. Mastoid air cells: Normal as visualized. No mastoid effusion. Orbits: Unremarkable. Soft tissues: Unremarkable. IMPRESSION: 1. No acute infarction, masses or hemorrhage is seen. No acute intracranial abnormality is identified. 2. Diffuse age-related cerebral atrophy and moderate chronic microvascular white matter ischemic changes, without evidence of an acute intracranial abnormality. 3. There has been no adverse interval change since the previous study. Electronically signed by: Juan C Cho On 05/11/2020 11:18:57 AM TIME SPENT ON DISCHARGE: 30 MIN. Vital Signs/I&Os Vital Signs Date Time Temp Pulse Resp B/P (MAP) Pulse Ox O2 Delivery O2 Flow Rate FiO2 10/02/20 08:23 98 125/89 10/02/20 06:00 97.2 17 97 Room Air I&O- Last 24 Hours up to 6 AM 10/02/20 06:00 Intake Total 1650 ml Output Total 1125 ml Balance 525 ml Laboratory Data Labs 24H Laboratory Tests 2 10/01/20 11:27: Bedside Glucose (Misc Panel) 134H 10/01/20 16:53: Bedside Glucose (Misc Panel) 208H 10/01/20 20:28: Bedside Glucose (Misc Panel) 150H 10/02/20 06:22: Bedside Glucose (Misc Panel) 126H FSBS Laboratory Tests Test 10/01/20 11:27 10/01/20 16:53 10/01/20 20:28 10/02/20 06:22 Range/Units Bedside Glucose (Misc Panel) 134 208 150 126 83-110 MG/DL Discharge Medications Scheduled Amlodipine Besylate (Amlodipine Besylate) 5 Mg Tablet, 5 MG PO DAILY, (Reported) Atenolol (Atenolol) 50 Mg Tablet, 50 MG PO DAILY, (Reported) Cholecalciferol (Vitamin D3) (Vitamin D3) 50 Mcg Tablet, 50 MCG PO DAILY, (Reported) Divalproex Sodium (Divalproex Sodium) 250 Mg Tablet.dr, 250 MG PO BID, (Reported) Finasteride (Finasteride) 5 Mg Tablet, 5 MG PO QHS, (Reported) Glimepiride (Glimepiride) 4 Mg Tablet, 4 MG PO DAILY, (Reported) Losartan Potassium (Losartan Potassium) 25 Mg Tablet, 25 MG PO QHS, (Reported) Lovastatin (Lovastatin) 40 Mg Tablet, 40 MG PO DAILY, (Reported) Sodium Chloride (Sodium Chloride) 1 Gm Tablet, 1 GM PO TID, (Reported) Tamsulosin HCl (Flomax) 0.4 Mg Capsule, 0.4 MG PO DAILY, (Reported) Miscellaneous Medications [Comments] , (Reported) MEDICATIONS TAKEN FROM LAST DISCHARGE AND EXTERNAL MED HISTORY Allergies Coded Allergies: morphine (Verified Allergy, Intermediate, HYPOTENSION, 05/09/20) WARREN RUEDA MD Oct 02, 2020 10:11
[2020-10-03] MEDS ORDERED: ALPRAZolam 0.5 MG TAB PO ONE (09:00)
== END 2020-10-02 14:21 | DRG 312 ==
LOC: M ED 12:39 → M ED INP 18:11 → M MSPAV 21:16
PROVIDERS: ADMIT Internal Medicine; ATTEND General Practice
DX: R55 Syncope and collapse (principal); E87.1 Hypo-osmolality and hyponatremia; I10 Essential (primary) hypertension; E11.9 Type 2 diabetes mellitus without complications; R53.81 Other malaise; Z91.14 Patient's other noncompliance with medication regimen; Z79.899 Other long term (current) drug therapy; Z88.5 Allergy status to narcotic agent; E78.5 Hyperlipidemia, unspecified; N40.0 Benign prostatic hyperplasia without lower urinary tract symptoms

== ENCOUNTER 2021-01-30 15:31 | Inpatient (IN) | payer MEDICARE ==
[~2021-01-30] VITALS: Ht 190.5 cm; Wt 107.0 kg
[~2021-01-30 15:31] MED LIST changes: +COMMENTS; +DIVA250T67 PO; +LOSA25TA14 PO; +VITA200038 PO
[2021-01-30 16:00] LABS: BASO # 0.1 10^3/uL (0.0-0.2); BASO % 0.7 % (0.0-1.0); EOS # 0.1 10^3/uL (0.0-0.5); EOS % 1.2 % (0.0-3.0); HEMATOCRIT 44.6 % (42.0-52.0); HEMOGLOBIN 15.3 g/dl (13.5-17.5); LYMPH # 2.2 10^3/uL (1.5-5.0); LYMPH % 29.5 % (24.0-44.0); MEAN CORPUSCULAR HGB CONC 34.3 g/dl (32.0-36.5); MEAN CORPUSCULAR VOLUME 84.6 fl (80.0-96.0); MONO # 0.7 10^3/uL (0.0-0.8); MONO % 9.5 % (2.0-8.0); NEUTROPHILS # 4.5 10^3/uL (1.5-8.5); NEUTROPHILS % 58.6 % (36.0-66.0); PLATELET COUNT, AUTOMATED 278 10^3/uL (150-450); RED BLOOD COUNT 5.27 10^6/uL (4.30-6.10); WHITE BLOOD COUNT 7.6 10^3/uL (4.0-10.0)
--- NOTE | 2021-01-30 16:02 | REP ---
INDICATION: CHEST PAIN. COMPARISON: 09/25/2020 latest prior TECHNIQUE: Portable FINDINGS: The technique utilized in obtaining the radiograph has magnified the cardiac silhouette and accentuated the interstitial markings. Since the last exam a dual chamber bipolar pacemaker device has been placed. There is mild cardiomegaly accentuated by technique. No acute patchy parenchymal opacities or pleural effusions have developed. There is no significant change in appearance the osseous structures. IMPRESSION: There is no evidence of acute cardiopulmonary disease. Findings as described above. <Electronically signed by Trevor Santana > 01/30/21 [id number]
[2021-01-30 16:34] LABS: ALBUMIN 3.5 GM/DL (3.2-5.2); ALT/SGPT 22 U/L (12-78); BILIRUBIN,DIRECT 0.1 MG/DL (0.0-0.2); BILIRUBIN,TOTAL 0.7 MG/DL (0.2-1.0); BLOOD UREA NITROGEN 27 MG/DL (7-18); CALCIUM LEVEL 9.2 MG/DL (8.8-10.2); CARBON DIOXIDE LEVEL 22 MEQ/L (21-32); CHLORIDE LEVEL 98 MEQ/L (98-107); CK-MB VALUE MASS 1.2 NG/ML (<3.6); CPK CREATINE PHOSPHOKINASE 121 U/L (39-308); CREATININE FOR GFR 0.66 MG/DL (0.70-1.30); GLOMERULAR FILTRATION RATE > 60.0 (>42); GLUCOSE, FASTING 185 MG/DL (70-100); LIPASE 127 U/L (73-393); MB/CK RELATIVE INDEX 0.99 (< OR =4); POTASSIUM SERUM 3.8 MEQ/L (3.5-5.1); SODIUM LEVEL 132 MEQ/L (136-145); TOTAL PROTEIN 6.8 GM/DL (6.4-8.2); TROPONIN I < 0.02 NG/ML (< 0.10)
--- NOTE | 2021-01-30 16:36 | REPVR ---
PROCEDURE INFORMATION: Exam: CT Head Without Contrast Exam date and time: 01/30/2021 4:14 PM Age: 75 years old Clinical indication: Confusion TECHNIQUE: Imaging protocol: Computed tomography of the head without contrast. Radiation optimization: All CT scans at this facility use at least one of these dose optimization techniques: automated exposure control; mA and/or kV adjustment per patient size (includes targeted exams where dose is matched to clinical indication); or iterative reconstruction. COMPARISON: CT Head without contrast 09/27/2020 3:17 PM FINDINGS: Brain: Nonspecific hypodensities of the periventricular and deep subcortical white matter, most likely secondary to chronic small vessel ischemic change. No intracranial hemorrhage or extra-axial fluid collection. No evidence of mass effect or midline shift. Miller-white matter differentiation is normal. Atherosclerotic calcifications of the intracranial arterial vasculature. Cerebral ventricles: Prominence of the ventricles and sulci, most likely attributed to parenchymal volume loss. Paranasal sinuses: Visualized sinuses are unremarkable. No fluid levels. Mastoid air cells: Unremarkable. Bones/joints: No acute osseus lesion or fracture. Soft tissues: Unremarkable. IMPRESSION: 1. No acute intracranial pathology. 2. Chronic findings, as above. Electronically signed by: Connor Aguayo On 01/30/2021 16:36:06 PM
[2021-01-30 17:19] LABS: VALPROIC ACID (DEPAKOTE) < 3.0 UG/ML (50.0-100.0)
--- NOTE | 2021-01-30 17:40 | ECGEPIP ---
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
[2021-01-30 18:06] LABS: RSV AMPLIFICATION NEGATIVE (NEGATIVE)
[2021-01-30] MEDS ORDERED: GLUCAGON INJ 1MG VIAL SC PRN (18:40)
[2021-01-30] MEDS ORDERED: GLUCOSE 4GM CHEW TABLET PO PRN (18:40)
[2021-01-30] MEDS ORDERED: DEXTROSE 50% 50 ML SYRINGE IV PRN (18:40)
--- NOTE | 2021-01-30 18:54 | HPEPDOC ---
[facility] Medical History & Physical Date of Admission Jan 30, 2021 Date of Service: Jan 30, 2021 Attending Physician: FILIPPO DUMONT MD History and Physical CHIEF COMPLAINT: I have pain everywhere, chest, my fingers, back, my arms and legs, I just want to feel better HISTORY OF PRESENT ILLNESS: 75 year old M history of unspecified psychiatric disorder with cognitive decline, poor insight and inability to care for self, diabetes mellitus type 2, hypertension, and noncompliance who was recently admitted for a syncopal event and during that admission was deemed without capacity and discharged to an assisted living facility in [place], [place] where he was until a few weeks ago when he was allowed to leave the facility AMA and went back to his home where he lives alone? and was later admitted to [facility] where he was found to be in "heart block" and was transferred to [facility] for PPM placement after which he was discharged home with plan for adult protection service to check in on him. On her arrival to his home today, she found him unkempt and on ROS he did not recognize and answered yes to all complaints that were asked including various pain complaints and she recommended ED evaluation. He did deny noted fever, chills, diarrhea, constipation, draining wound or redness around site of recent PPM. On arrival to the ED, he was hemodynamically stable, afebrile and breathing comfortably on room air and was oriented to self and place but not time or year. He had a grossly negative workup with an EKG that showed sinus rhythm with 1st degree heart block and RBBB, troponin that was negative, no leukocytosis and grossly normal BMP with baseline renal function within normal limits and negative respiratory panel. He is now being admitted for failure to care for self at home. Past Medical History 1. Hypertension 2. Diabetes Mellitus 2 3. Hyperlipidemia 4. Syncope 5. Recent history of heart block, type unclear, but was clinically significant enough to warrant a PPM Surgical History 1. Discectomy and lumbar laminectomy of L5-S1 herniated disc 2. Tonsillectomy 3. PPM Family History Father: Metastatic cancer, unknown primary Mother: Cancer, unknown type Social History Smoker: Denies Alcohol: Denies Drugs: denies REVIEW OF SYSTEMS: as noted in the HPI. 10 point ROS was otherwise negative. HOME MEDICATIONS: Please see below. PHYSICAL EXAMINATION: VITAL SIGNS: see below GENERAL APPEARANCE: NAD, disheveled HEENT: NCAT, EOMI, MMM CARDIOVASCULAR: RRR, no m/r/g LUNGS: CTAB, with clean dressing at site of recent PPM placement ABDOMEN: Normoactive bowel sounds, soft, NTND EXTREMITIES: WWP, no LE edema NEUROLOGICAL: CN 3-12 intact, clear speech, grossly nonfocal examination PSYCHIATRIC: AOx2 to self and place LABORATORY DATA: See below. IMAGING: Ct head: white matter, most likely secondary to chronic small vessel ischemic change. No intracranial hemorrhage or extra-axial fluid collection. No evidence of mass effect or midline shift. Miller-white matter differentiation is normal. Atherosclerotic calcifications of the intracranial arterial vasculature. Cerebral ventricles: Prominence of the ventricles and sulci, most likely attributed to parenchymal volume loss. Paranasal sinuses: Visualized sinuses are unremarkable. No fluid levels. Mastoid air cells: Unremarkable. Bones/joints: No acute osseus lesion or fracture. Soft tissues: Unremarkable. IMPRESSION: 1. No acute intracranial pathology. 2. Chronic findings, as above. CXR: No acute cardiopulmonary pathology noted MICROBIOLOGY: Please see below. ASSESSMENT: 75 year old M history of unspecified psychiatric disorder with cognitive decline, poor insight and inability to care for self, history of diabetes mellitus type 2, hypertension, and noncompliance, with established lack of capacity and ability to care for himself who presents from home where he was back living independently and recommended to present to the ED for generalized pain and inability to care for himself. PLAN: Generalized pain including chest pain: -EKG without ischemic signs -troponin negative -CXR without acute pathology -acetaminophen 650mg Q6HP Inability to care for self with known established lack of capacity: -Was previously discharged to assisted living facility in [place], [place] but was allowed to return home from there -Will speak with family, daughter spoke with Dr. Bridges, they are distant, she supports placement for safe discharging but he declines -PFS consult -Does not have capacity to sign out AMA per my extensive discussion with him and thankfully he is willing to remain in the hospital at this time. He was unable to give me a name of his current PCP (was discharged by Dr. Rushing), is tangential, unable to corroborate how he could get home and care for himself when he gets there. We agreed that we should explore the etiology of his generalized pain and seek treatment, as well as plan for safe discharge. History of heart block: -s/p PPM -currently sinus with episodes of 1st degree HB, with venetie ira pacing per ED EKG HTN: -continue home amlodipine DM: -not on any meds but hyperglycemic in the ED -will place on SSI, FSBG AC/HS, with hypoglycemia protocol DVT ppx: lovenox SC Dispo: medsurg, obs Vital Signs Vital Signs Date Time Temp Pulse Resp B/P (MAP) Pulse Ox O2 Delivery O2 Flow Rate FiO2 01/30/21 18:00 82 119/72 (88) 98 Room Air 01/30/21 16:01 97.4 18 Laboratory Data Labs 24H Laboratory Tests 2 01/30/21 15:34: Immature Granulocyte % (Auto) 0.5, Neutrophils (%) (Auto) 58.6, Lymphocytes (%) (Auto) 29.5, Monocytes (%) (Auto) 9.5H, Eosinophils (%) (Auto) 1.2, Basophils (%) (Auto) 0.7, Neutrophils # (Auto) 4.5, Lymphocytes # (Auto) 2.2, Monocytes # (Auto) 0.7, Eosinophils # (Auto) 0.1, Basophils # (Auto) 0.1, Nucleated Red Blood Cells % (auto) 0.0, Anion Gap 12, Glomerular Filtration Rate > 60.0, Calcium Level 9.2, Total Bilirubin 0.7, Direct Bilirubin 0.1, Aspartate Amino Transf (AST/SGOT) 18, Alanine Aminotransferase (ALT/SGPT) 22, Alkaline Phosphatase 115, Total Creatine Kinase 121, Creatine Kinase MB 1.2, Creatine Kinase MB Relative Index 0.99, Troponin I < 0.02, Total Protein 6.8, Albumin 3.5, Albumin/Globulin Ratio 1.1, Lipase 127, Valproic Acid (Depakene) Level < 3.0L 01/30/21 16:14: Urine Color YELLOW, Urine Appearance CLEAR, Urine pH 5.0, Urine Specific [place] 1.025, Urine Protein 1+H, Urine Glucose (UA) 3+H, Urine Ketones TRACEH, Urine Blood NEGATIVE, Urine Nitrite NEGATIVE, Urine Bilirubin NEGATIVE, Urine Urobilinogen 2.0H, Urine Leukocyte Esterase NEGATIVE, Urine WBC (Auto) 1, Urine RBC (Auto) 0, Urine Hyaline Casts (Auto) 0, Urine Bacteria (Auto) NEGATIVE, Urine Squamous Epithelial Cells 1, Urine Mucus (Auto) SMALL, Urine Sperm (Auto) 01/30/21 17:01: Coronavirus (COVID-19)(PCR) NEGATIVE, Influenza Type A (RT-PCR) NEGATIVE, Influenza Type B (RT-PCR) NEGATIVE, Respiratory Syncytial Virus (PCR) NEGATIVE CBC/BMP Laboratory Tests 01/30/21 15:34 Home Medications Scheduled Amlodipine Besylate (Amlodipine Besylate) 5 Mg Tablet, 5 MG PO DAILY Allergies Coded Allergies: morphine (Verified Adverse Reaction, Intermediate, HYPOTENSION, 01/30/21) A-FIB/CHADSVASC A-FIB History Current/History of A-Fib/PAF?: No Age/Risk Factor Scoring CHADSVASC: CHADSVASC Response (Comments) Value Age Risk Factor Age 65-74 years old 1 Gender Risk Factor Male 0 Hx of CHF No 0 Hx of HTN Yes 1 Hx of Stroke/TIA/or VTE No 0 Hx of Diabetes Yes 1 Hx of Vascular Disease No 0 Total 3 Treatment Treatment ordered: NONE Reason Anticoagulant not given: Not indicated/[id number] FILIPPO DUMONT MD Jan 30, 2021 18:54
[2021-01-30 19:53] VITALS: BP 142/90
[2021-01-30] MEDS: HumaLOG INSULIN (NovoLOG) PER UNIT SC SCH (21:00)
[2021-01-30] MEDS: ACETAMINOPHEN TAB 650MG DOSE (2X325MG) PO PRN (21:34)
[2021-01-31] MEDS: ACETAMINOPHEN TAB 650MG DOSE (2X325MG) PO PRN ×3 (01:51→20:07)
[2021-01-31] MEDS ORDERED: IBUPROFEN 800 MG TAB PO ONE (05:00)
[2021-01-31 06:00] VITALS: BP 128/83
[2021-01-31 06:37] LABS: HEMATOCRIT 43.7 % (42.0-52.0); HEMOGLOBIN 14.5 g/dl (13.5-17.5); MEAN CORPUSCULAR HEMOGLOBIN 28.7 pg (27.0-33.0); MEAN CORPUSCULAR HGB CONC 33.2 g/dl (32.0-36.5); MEAN CORPUSCULAR VOLUME 86.5 fl (80.0-96.0); PLATELET COUNT, AUTOMATED 230 10^3/uL (150-450); RED BLOOD COUNT 5.05 10^6/uL (4.30-6.10); WHITE BLOOD COUNT 4.7 10^3/uL (4.0-10.0)
[2021-01-31 07:03] LABS: BLOOD UREA NITROGEN 23 MG/DL (7-18); CALCIUM LEVEL 8.7 MG/DL (8.8-10.2); CARBON DIOXIDE LEVEL 27 MEQ/L (21-32); CHLORIDE LEVEL 98 MEQ/L (98-107); CREATININE FOR GFR 0.73 MG/DL (0.70-1.30); GLOMERULAR FILTRATION RATE > 60.0 (>42); GLUCOSE, FASTING 203 MG/DL (70-100); MAGNESIUM LEVEL 2.1 MG/DL (1.8-2.4); POTASSIUM SERUM 3.6 MEQ/L (3.5-5.1); SODIUM LEVEL 133 MEQ/L (136-145)
[2021-01-31] MEDS: ENOXAPARIN 40MG/0.4ML SYRINGE (J1650 PER 10MG) SC SCH (08:30)
[2021-01-31] MEDS: amLODIPine 5 MG TAB PO SCH (08:31)
[2021-01-31] MEDS: HumaLOG INSULIN (NovoLOG) PER UNIT SC SCH ×4 (08:31→20:54)
[2021-01-31] MEDS: MIRALAX *UNIT DOSE* 17GM PACKET PO SCH ×2 (11:21→20:53)
[2021-01-31 14:00] VITALS: BP 136/85
--- NOTE | 2021-01-31 14:00 | IPNPDOC ---
Text Note Date of Service The patient was seen on 01/31/21. NOTE SUBJECTIVE: -No acute events OBJECTIVE: VITAL SIGNS: see below GENERAL APPEARANCE: NAD, disheveled HEENT: NCAT, EOMI, MMM CARDIOVASCULAR: RRR, no m/r/g LUNGS: CTAB, with clean dressing at site of recent PPM placement ABDOMEN: Normoactive bowel sounds, soft, NTND EXTREMITIES: WWP, no LE edema NEUROLOGICAL: CN 3-12 intact, clear speech, grossly nonfocal examination PSYCHIATRIC: AOx2 to self and place LABORATORY DATA: Reviewed. Stable CBC and BMP within normal limits IMAGING: Ct head: white matter, most likely secondary to chronic small vessel ischemic change. No intracranial hemorrhage or extra-axial fluid collection. No evidence of mass effect or midline shift. Miller-white matter differentiation is normal. Atherosclerotic calcifications of the intracranial arterial vasculature. Cerebral ventricles: Prominence of the ventricles and sulci, most likely attributed to parenchymal volume loss. Paranasal sinuses: Visualized sinuses are unremarkable. No fluid levels. Mastoid air cells: Unremarkable. Bones/joints: No acute osseus lesion or fracture. Soft tissues: Unremarkable. IMPRESSION: 1. No acute intracranial pathology. 2. Chronic findings, as above. CXR: No acute cardiopulmonary pathology noted MICROBIOLOGY: Please see below. ASSESSMENT: 75 year old M history of unspecified psychiatric disorder with cognitive decline, poor insight and inability to care for self, history of diabetes mellitus type 2, hypertension, and noncompliance, with established lack of capacity and ability to care for himself who presents from home where he was back living independently and recommended to present to the ED for generalized pain and inability to care for himself. PLAN: Generalized pain including chest pain: -EKG without ischemic signs -troponin negative -CXR without acute pathology -acetaminophen 650mg Q6HP Inability to care for self with known established lack of capacity: -Was previously discharged to assisted living facility in [place], [place] but was allowed to return home from there -Will consult PFS about safe discharge planning. Daughter spoke with Dr. Bridges, their relationship is distant but she supports placement for safe discharging but he has resisted that in the past. -Continues to not have capacity to sign out AMA per my extensive discussion with him -Does not have a PCP (was discharged by Dr. Rushing for non-compliance and LTFU) and is medically non-compliant. History of heart block: -s/p PPM HTN: -continue home amlodipine DM: -not on any meds at home but hyperglycemic -continue on SSI, FSBG AC/HS, with hypoglycemia protocol DVT ppx: lovenox SC Dispo: medsurg, obs. Medically cleared. Will consult PFS for safe discharge planning and likely make ALC if the plan requires extensive time for planning. VS,Fishbone, I+O VS, Fishbone, I+O Laboratory Tests 01/30/21 15:34 01/31/21 05:40 Vital Signs Date Time Temp Pulse Resp B/P (MAP) Pulse Ox O2 Delivery O2 Flow Rate FiO2 01/31/21 06:00 96.7 72 16 128/83 (98) 96 Room Air I&O- Last 24 Hours up to 6 AM 01/31/21 06:00 Intake Total 830 ml Output Total 625 ml Balance 205 ml FILIPPO DUMONT MD Jan 31, 2021 08:05
[2021-01-31 22:00] VITALS: BP 152/92
[2021-02-01 06:00] VITALS: BP 164/91
[2021-02-01 06:32] LABS: HEMATOCRIT 44.9 % (42.0-52.0); HEMOGLOBIN 15.2 g/dl (13.5-17.5); MEAN CORPUSCULAR HEMOGLOBIN 29.3 pg (27.0-33.0); MEAN CORPUSCULAR HGB CONC 33.9 g/dl (32.0-36.5); MEAN CORPUSCULAR VOLUME 86.5 fl (80.0-96.0); PLATELET COUNT, AUTOMATED 235 10^3/uL (150-450); RED BLOOD COUNT 5.19 10^6/uL (4.30-6.10); WHITE BLOOD COUNT 4.6 10^3/uL (4.0-10.0)
[2021-02-01 07:03] LABS: BLOOD UREA NITROGEN 21 MG/DL (7-18); CALCIUM LEVEL 8.5 MG/DL (8.8-10.2); CARBON DIOXIDE LEVEL 26 MEQ/L (21-32); CHLORIDE LEVEL 97 MEQ/L (98-107); CREATININE FOR GFR 0.57 MG/DL (0.70-1.30); GLOMERULAR FILTRATION RATE > 60.0 (>42); GLUCOSE, FASTING 224 MG/DL (70-100); POTASSIUM SERUM 3.9 MEQ/L (3.5-5.1); SODIUM LEVEL 132 MEQ/L (136-145)
--- NOTE | 2021-02-01 10:14 | IPNPDOC ---
Text Note Date of Service The patient was seen on 02/01/21. NOTE SUBJECTIVE: -No acute events -Mr. Givens at times is oriented fully and expresses understanding of his clinical status with appropriate insight but this changes drastically when he is agitated and has labile cognitive faculties. We had a length discussion about safe discharge planning yesterday and he reported that he has several services set up at his home and would like to be discharged home where he has 1. Food delivery to his door per the daughter's arrangements 2. Pharmacy meds delivery to his door by [employer] 3. Has a case assistant from [facility] child welfare social worker, whom I believe encouraged his hospital presentation. This unfortunately on PFS speaking with his daughter and Iman Lindsay the APS/case assistant is not accurate and his living conditions are unsafe. He became agitated unfortunately about discussion involving denial of coverage for his hospital stay and our discussion derailed at that time and became tangential and not coherent to the matter we were discussing. OBJECTIVE: VITAL SIGNS: see below GENERAL APPEARANCE: NAD, disheveled HEENT: NCAT, EOMI, MMM CARDIOVASCULAR: RRR, no m/r/g LUNGS: CTAB, with clean dressing at site of recent PPM placement ABDOMEN: Normoactive bowel sounds, soft, NTND EXTREMITIES: WWP, no LE edema NEUROLOGICAL: CN 3-12 intact, clear speech, grossly nonfocal examination PSYCHIATRIC: AOx2 to self and place LABORATORY DATA: Reviewed. Stable CBC and BMP within normal limits IMAGING: Ct head: white matter, most likely secondary to chronic small vessel ischemic change. No intracranial hemorrhage or extra-axial fluid collection. No evidence of mass effect or midline shift. Miller-white matter differentiation is normal. Atherosclerotic calcifications of the intracranial arterial vasculature. Cerebral ventricles: Prominence of the ventricles and sulci, most likely attributed to parenchymal volume loss. Paranasal sinuses: Visualized sinuses are unremarkable. No fluid levels. Mastoid air cells: Unremarkable. Bones/joints: No acute osseus lesion or fracture. Soft tissues: Unremarkable. IMPRESSION: 1. No acute intracranial pathology. 2. Chronic findings, as above. CXR: No acute cardiopulmonary pathology noted MICROBIOLOGY: Please see below. ASSESSMENT: 75 year old M history of unspecified psychiatric disorder with cognitive decline, poor insight and inability to care for self, history of diabetes mellitus type 2, hypertension, and noncompliance, with established lack of capacity and ability to care for himself who presents from home where he was back living independently and recommended to present to the ED for generalized pain and inability to care for himself. PLAN: Generalized pain including chest pain: -EKG without ischemic signs -troponin negative -CXR without acute pathology -acetaminophen 650mg Q6HP Inability to care for self with known established lack of capacity: -Was previously discharged to assisted living facility in [place], [place] but was allowed to return home from there -Will consult PFS about safe discharge planning. Daughter spoke with Dr. Bridges, their relationship is distant but she supports placement for safe discharging but he has resisted that in the past. -Per my evaluation, continues to not have capacity to sign out AMA per my extensive discussion with him and I will consult psych today to establish psych evaluation as we try to plan for a safe discharge. -Does not have a PCP (was discharged by Dr. Rushing for non-compliance and LTFU) and is medically non-compliant. History of heart block: -s/p PPM HTN: -continue home amlodipine DM: -not on any meds at home but hyperglycemic -continue on SSI, FSBG AC/HS, with hypoglycemia protocol DVT ppx: lovenox SC Dispo: medsurg, obs. Medically cleared. Consulted PFS for safe discharge planning and will make ALC today VS,Sabrinae, I+O VS, Robertbone, I+O Laboratory Tests 02/01/21 05:44 Vital Signs Date Time Temp Pulse Resp B/P (MAP) Pulse Ox O2 Delivery O2 Flow Rate FiO2 02/01/21 06:00 96.7 75 19 164/91 (115) 98 Room Air I&O- Last 24 Hours up to 6 AM 02/01/21 06:00 Intake Total 1890 ml Output Total 425 ml Balance 1465 ml FILIPPO DUMONT MD Feb 01, 2021 08:04
[2021-02-01] MEDS: amLODIPine 5 MG TAB PO SCH (10:22)
[2021-02-01] MEDS: HumaLOG INSULIN (NovoLOG) PER UNIT SC SCH ×4 (10:23→20:43)
[2021-02-01] MEDS: MIRALAX *UNIT DOSE* 17GM PACKET PO SCH ×2 (10:23→20:42)
[2021-02-01] MEDS: ENOXAPARIN 40MG/0.4ML SYRINGE (J1650 PER 10MG) SC SCH (10:23)
[2021-02-01 14:00] VITALS: BP 136/83
[2021-02-01 16:05] LABS: CHOLESTEROL LEVEL 308 MG/DL (<200); CHOLESTEROL RISK RATIO 6.553 (<5); CK-MB VALUE MASS 1.2 NG/ML (<3.6); CPK CREATINE PHOSPHOKINASE 85 U/L (39-308); HDL CHOLESTEROL 47 MG/DL (>40); MB/CK RELATIVE INDEX 1.41 (< OR =4); NON-HDL-C 261 MG/DL; TRIGLYCERIDES LEVEL 528 MG/DL (<150); TROPONIN I < 0.02 NG/ML (< 0.10)
[2021-02-01] MEDS: ACETAMINOPHEN TAB 650MG DOSE (2X325MG) PO PRN (18:45)
[2021-02-01] MEDS ORDERED: LEVEMIR (INSULIN DETEMIR) 1 UNITS/0.01ML SC SCH (21:00)
[2021-02-01 22:00] VITALS: BP 150/88
[2021-02-02] MEDS: ACETAMINOPHEN TAB 650MG DOSE (2X325MG) PO PRN (03:23)
[2021-02-02] MEDS ORDERED: IBUPROFEN 800 MG TAB PO ONE (04:50)
[2021-02-02 05:15] LABS: HEMATOCRIT 42.6 % (42.0-52.0); HEMOGLOBIN 14.4 g/dl (13.5-17.5); MEAN CORPUSCULAR HEMOGLOBIN 29.1 pg (27.0-33.0); MEAN CORPUSCULAR HGB CONC 33.8 g/dl (32.0-36.5); MEAN CORPUSCULAR VOLUME 86.1 fl (80.0-96.0); PLATELET COUNT, AUTOMATED 227 10^3/uL (150-450); RED BLOOD COUNT 4.95 10^6/uL (4.30-6.10)
[2021-02-02 05:39] LABS: BLOOD UREA NITROGEN 21 MG/DL (7-18); CALCIUM LEVEL 8.7 MG/DL (8.8-10.2); CARBON DIOXIDE LEVEL 27 MEQ/L (21-32); CHLORIDE LEVEL 98 MEQ/L (98-107); CREATININE FOR GFR 0.66 MG/DL (0.70-1.30); GLOMERULAR FILTRATION RATE > 60.0 (>42); GLUCOSE, FASTING 201 MG/DL (70-100); SODIUM LEVEL 131 MEQ/L (136-145)
[2021-02-02 06:00] VITALS: BP 161/94
[2021-02-02] MEDS ORDERED: ATORVASTATIN 20 MG TAB PO SCH (09:00)
[2021-02-02] MEDS ORDERED: AMLO1TAB25 PO (09:46)
[2021-02-02] MEDS ORDERED: ATOR40TA75 PO (09:46)
[2021-02-02] MEDS ORDERED: METF-839 PO (09:46)
--- NOTE | 2021-02-02 10:23 | ECGEPIP ---
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
[2021-02-02] MEDS: MIRALAX *UNIT DOSE* 17GM PACKET PO SCH (10:26)
[2021-02-02] MEDS: HumaLOG INSULIN (NovoLOG) PER UNIT SC SCH ×2 (10:28→13:47)
[2021-02-02 10:29] VITALS: BP 137/85
[2021-02-02] MEDS: ENOXAPARIN 40MG/0.4ML SYRINGE (J1650 PER 10MG) SC SCH (10:29)
--- NOTE | 2021-02-02 12:50 | DS.PDOC ---
Discharge Summary General Date of Admission Jan 30, 2021 at 18:38 Date of Discharge 02/02/2021 Attending Physician: FILIPPO DUMONT MD Discharge Summary PROCEDURES PERFORMED DURING STAY: None ADMITTING DIAGNOSES: chest pain DISCHARGE DIAGNOSES: Atypical chest pain, NOS Cognitive decline, unspecified at this time Hypertension Diabetes Mellitus 2 Hyperlipidemia Recent history of heart block, type unclear, but was clinically significant enough to warrant a PPM COMPLICATIONS/CHIEF COMPLAINT: Alt Mental Status,Chest Pain,Generalized Pain. HISTORY OF PRESENT ILLNESS: 75 year old M history of unspecified psychiatric disorder with cognitive decline, labile insight and c/f inability to care for self, diabetes mellitus type 2, hypertension, and noncompliance who was recently admitted for a syncopal event and during that admission was deemed without capacity and discharged to an assisted living facility in [place], [place] where he was until a few weeks ago when he was allowed to leave the facility AMA and went back to his home where he lives alone and was later admitted to [facility] where he was found to be in "heart block" and was transferred to [facility] for PPM placement after which he was discharged home with plan for adult protection service to check in on him. On her arrival to his home today, she found him unkempt and on ROS he did not recognize her and answered yes to all complaints that were asked including various pain complaints and she recommended ED evaluation. He did deny noted fever, chills, diarrhea, constipation, draining wound or redness around site of recent PPM. HOSPITAL COURSE: On arrival to the ED, he was hemodynamically stable, afebrile and breathing comfortably on room air and was oriented to self and place but not time or year. He had a grossly negative workup with an EKG that showed sinus rhythm with 1st degree heart block and RBBB, troponin that was negative, no leukocytosis and grossly normal BMP with baseline renal function within normal limits and negative respiratory panel. He was admitted for failure to care for self at home and his various pain complaints. We had extensive conversation with PFS and the daughter and the patient himself about a safe discharge plan but he declined placement completely and wanted to return home. His course was c/b labile insight evaluation despite being consistently fully oriented. We attempted to get a psych consult that he declined to speak with Dr. Ortiz. On my conversation with Dr. Ortiz, she did not believe that the lability of his insight would warrant him to be deemed without capacity and justify a mandated placement in a facility for failure to care for self at home. We therefore arranged home services for him, set him up with a new PCP as he was recently discharged from Dr. Rushing's practice and refilled his medications while communicating closely with his daughter about this plan and with his adult platform worker. He is now being discharged home with services. DISCHARGE MEDICATIONS: Please see below. ALLERGIES: Please see below. PHYSICAL EXAMINATION ON DISCHARGE: VITAL SIGNS: Please see below. OBJECTIVE: VITAL SIGNS: see below GENERAL APPEARANCE: NAD, disheveled HEENT: NCAT, EOMI, MMM CARDIOVASCULAR: RRR, no m/r/g LUNGS: CTAB, with clean dressing at site of recent PPM placement ABDOMEN: Normoactive bowel sounds, soft, NTND EXTREMITIES: WWP, no LE edema NEUROLOGICAL: CN 3-12 intact, clear speech, grossly nonfocal examination PSYCHIATRIC: AOx2 to self and place LABORATORY DATA: Please see below IMAGING: Ct head: white matter, most likely secondary to chronic small vessel ischemic change. No intracranial hemorrhage or extra-axial fluid collection. No evidence of mass effect or midline shift. Miller-white matter differentiation is normal. Atherosclerotic calcifications of the intracranial arterial vasculature. Cerebral ventricles: Prominence of the ventricles and sulci, most likely attributed to parenchymal volume loss. Paranasal sinuses: Visualized sinuses are unremarkable. No fluid levels. Mastoid air cells: Unremarkable. Bones/joints: No acute osseus lesion or fracture. Soft tissues: Unremarkable. IMPRESSION: 1. No acute intracranial pathology. 2. Chronic findings, as above. CXR: No acute cardiopulmonary pathology noted MICROBIOLOGY: Please see below. PROGNOSIS: Good, however high risk for readmission given history of medical non- compliance and labile insight ACTIVITY: As tolerated DIET: consistent carb DISCHARGE PLAN: Home with services DISPOSITION: Home with services DISCHARGE INSTRUCTIONS: Please present to your new PCP appointment and warp picker your medications at the pharmacy. ITEMS TO FOLLOWUP ON ON OUTPATIENT: PCP follow up DISCHARGE CONDITION: Stable TIME SPENT ON DISCHARGE: 43 minutes. Vital Signs/I&Os Vital Signs Date Time Temp Pulse Resp B/P (MAP) Pulse Ox O2 Delivery O2 Flow Rate FiO2 02/02/21 06:00 97.7 69 18 161/94 (116) 98 Room Air I&O- Last 24 Hours up to 6 AM 02/02/21 05:59 Intake Total 1300 ml Output Total 2100 ml Balance -800 ml Laboratory Data Labs 24H Laboratory Tests 2 02/01/21 11:29: Bedside Glucose (Misc Panel) 260H 02/01/21 15:16: Total Creatine Kinase 85, Creatine Kinase MB 1.2, Creatine Kinase MB Relative Index 1.41, Troponin I < 0.02, Triglycerides Level 528H, Total Cholesterol 308H, LDL Cholesterol , Non-HDL Cholesterol (LDL + VLDL) 261, Total HDL Cholesterol 47, Cholesterol/HDL Ratio 6.553H 02/01/21 16:36: Bedside Glucose (Misc Panel) 205H 02/01/21 20:14: Bedside Glucose (Misc Panel) 201H 02/02/21 05:03: Nucleated Red Blood Cells % (auto) 0.0, Anion Gap 6L, Glomerular Filtration Rate > 60.0, Calcium Level 8.7L CBC/BMP Laboratory Tests 02/02/21 05:03 FSBS Laboratory Tests Test 02/01/21 11:29 02/01/21 16:36 02/01/21 20:14 Range/Units Bedside Glucose (Misc Panel) 260 205 201 83-110 MG/DL Discharge Medications Scheduled Amlodipine Besylate (Amlodipine Besylate) 10 Mg Tablet, 10 MG PO DAILY Atorvastatin Calcium (Atorvastatin Calcium) 40 Mg Tablet, 1 TAB PO DAILY Metformin HCl (Metformin HCl) 500 Mg Tablet, 500 MG PO BID Allergies Coded Allergies: morphine (Verified Adverse Reaction, Intermediate, HYPOTENSION, 01/30/21) FILIPPO DUMONT MD Feb 02, 2021 10:03
--- NOTE | 2021-02-02 12:50 | IPNPDOC ---
Text Note Date of Service The patient was seen on 02/02/21. NOTE SUBJECTIVE: -No acute events -He is consistently alert and fully oriented but his mood is very labile and he becomes agitated easily and his insight is also labile. He is agreeable to accepting services for home discharge, renewal of medications, setting up a new PCP in the resident clinic, and the daughter who is local is involved and will be checking in. We are now working on attempting to get him adequate services to get home safely with sufficient support. OBJECTIVE: VITAL SIGNS: see below GENERAL APPEARANCE: NAD, disheveled HEENT: NCAT, EOMI, MMM CARDIOVASCULAR: RRR, no m/r/g LUNGS: CTAB, with clean dressing at site of recent PPM placement ABDOMEN: Normoactive bowel sounds, soft, NTND EXTREMITIES: WWP, no LE edema NEUROLOGICAL: CN 3-12 intact, clear speech, grossly nonfocal examination PSYCHIATRIC: AOx2 to self and place LABORATORY DATA: Reviewed. Stable CBC and BMP within normal limits IMAGING: Ct head: white matter, most likely secondary to chronic small vessel ischemic change. No intracranial hemorrhage or extra-axial fluid collection. No evidence of mass effect or midline shift. Miller-white matter differentiation is normal. Atherosclerotic calcifications of the intracranial arterial vasculature. Cerebral ventricles: Prominence of the ventricles and sulci, most likely attributed to parenchymal volume loss. Paranasal sinuses: Visualized sinuses are unremarkable. No fluid levels. Mastoid air cells: Unremarkable. Bones/joints: No acute osseus lesion or fracture. Soft tissues: Unremarkable. IMPRESSION: 1. No acute intracranial pathology. 2. Chronic findings, as above. CXR: No acute cardiopulmonary pathology noted MICROBIOLOGY: Please see below. ASSESSMENT: 75 year old M history of unspecified psychiatric disorder with cognitive decline, poor insight and inability to care for self, history of diabetes mellitus type 2, hypertension, and noncompliance, with established lack of capacity and ability to care for himself who presents from home where he was back living independently and recommended to present to the ED for generalized pain and inability to care for himself. PLAN: Generalized pain including chest pain: -EKG without ischemic signs -troponin negative -CXR without acute pathology -acetaminophen 650mg Q6HP Inability to care for self with known established lack of capacity: -Was previously discharged to assisted living facility in [place], [place] but was allowed to return home from there -Will consult PFS about safe discharge planning. Daughter spoke with Dr. Bridges, their relationship is distant but she supports placement for safe discharging but he has resisted that in the past. -Per my evaluation, continues to not have capacity to sign out AMA per my extensive discussion with him and I will consult psych today to establish psych evaluation as we try to plan for a safe discharge. -Does not have a PCP (was discharged by Dr. Rushing for non-compliance and LTFU) and is medically non-compliant. History of heart block: -s/p PPM HTN: -continue home amlodipine DM: -not on any meds at home but hyperglycemic -continue on SSI, FSBG AC/HS, with hypoglycemia protocol DVT ppx: lovenox SC Dispo: medsurg, obs. Medically cleared. Likely to discharge home once PFS planning is complete. VS,Fishbone, I+O VS, Fishbone, I+O Laboratory Tests 02/02/21 05:03 Vital Signs Date Time Temp Pulse Resp B/P (MAP) Pulse Ox O2 Delivery O2 Flow Rate FiO2 02/02/21 06:00 97.7 69 18 161/94 (116) 98 Room Air I&O- Last 24 Hours up to 6 AM 02/02/21 05:59 Intake Total 1300 ml Output Total 2100 ml Balance -800 ml FILIPPO DUMONT MD Feb 02, 2021 09:43
[2021-02-02 14:00] VITALS: BP 140/86
== END 2021-02-02 16:17 | disposition home or self-care (01) | DRG 948 ==
LOC: M ED 15:31 → EDBD 15:31 → M ED INP 18:38 → ENRESERV 19:04 → M MSPAV 19:53 → OBSVTOIN 01-31 14:00
PROVIDERS: ADMIT Internal Medicine; ATTEND Internal Medicine
DX: R52 Pain, unspecified (principal); I10 Essential (primary) hypertension; E11.9 Type 2 diabetes mellitus without complications; E78.5 Hyperlipidemia, unspecified; Z91.19 Patient's noncompliance with other medical treatment and regimen; I44.0 Atrioventricular block, first degree; I45.10 Unspecified right bundle-branch block; Z79.899 Other long term (current) drug therapy; Z88.5 Allergy status to narcotic agent; R07.9 Chest pain, unspecified

== ENCOUNTER 2021-05-28 10:46 | Emergency (ER) | payer MEDICARE ==
[~2021-05-28] VITALS: Ht 193 cm; Wt 108.2 kg
[~2021-05-28 10:46] MED LIST changes: +AMLO1TAB25 PO; +ATOR40TA75 PO; +METF-839 PO
[2021-05-28] MEDS ORDERED: META400T (11:04)
[2021-05-28] MEDS ORDERED: TAMS1CAP17 (11:04)
[2021-05-28] MEDS ORDERED: AMLO1TAB24 (11:04)
[2021-05-28] MEDS ORDERED: METF500T13 (11:04)
[2021-05-28 11:28] LABS: BASO # 0.1 10^3/uL (0.0-0.2); BASO % 0.8 % (0.0-1.0); EOS # 0.1 10^3/uL (0.0-0.5); EOS % 1.6 % (0.0-3.0); HEMATOCRIT 42.3 % (42.0-52.0); HEMOGLOBIN 14.7 g/dl (13.5-17.5); LYMPH # 2.2 10^3/uL (1.5-5.0); LYMPH % 30.7 % (24.0-44.0); MEAN CORPUSCULAR HEMOGLOBIN 29.6 pg (27.0-33.0); MEAN CORPUSCULAR HGB CONC 34.8 g/dl (32.0-36.5); MEAN CORPUSCULAR VOLUME 85.1 fl (80.0-96.0); MONO # 0.7 10^3/uL (0.0-0.8); MONO % 9.4 % (2.0-8.0); NEUTROPHILS # 4.1 10^3/uL (1.5-8.5); NEUTROPHILS % 57.2 % (36.0-66.0); PLATELET COUNT, AUTOMATED 268 10^3/uL (150-450); RED BLOOD COUNT 4.97 10^6/uL (4.30-6.10); WHITE BLOOD COUNT 7.1 10^3/uL (4.0-10.0)
[2021-05-28 11:51] LABS: BLOOD UREA NITROGEN 23 MG/DL (7-18); CALCIUM LEVEL 8.9 MG/DL (8.8-10.2); CARBON DIOXIDE LEVEL 23 MEQ/L (21-32); CHLORIDE LEVEL 100 MEQ/L (98-107); CK-MB VALUE MASS 2.2 NG/ML (<3.6); CPK CREATINE PHOSPHOKINASE 136 U/L (39-308); CREATININE FOR GFR 0.73 MG/DL (0.70-1.30); GLOMERULAR FILTRATION RATE > 60.0 (>42); GLUCOSE, FASTING 154 MG/DL (70-100); MB/CK RELATIVE INDEX 1.62 (< OR =4); POTASSIUM SERUM 3.9 MEQ/L (3.5-5.1); SODIUM LEVEL 131 MEQ/L (136-145); TROPONIN I < 0.02 NG/ML (< 0.10)
--- NOTE | 2021-05-28 11:53 | REP ---
INDICATION: CHEST PAIN COMPARISON: 01/30/2021 TECHNIQUE: Portable AP view of the chest FINDINGS: The mediastinum and cardiac silhouette are stable and within normal limits for portable technique. Pacemaker remains stable. The lung roberts are clear without acute consolidation, effusion, or pneumothorax. Skeletal structures are intact. IMPRESSION: No acute cardiopulmonary process appreciated. <Electronically signed by Junito Parker > 05/28/21 0933
[2021-05-28] MEDS ORDERED: ISOVUE-370 76% 100ML VIAL As Ordered ONE (12:22)
--- NOTE | 2021-05-28 12:56 | REP ---
INDICATION: chest pain/SOB; hx of PE COMPARISON: 05/09/2020 TECHNIQUE: Axial contrast enhanced images from the thoracic inlet to the upper abdomen using pulmonary embolus technique with multiplanar re-formations. 75 ml Isovue 370 intravenous contrast material administered without complication. This CT examination was performed using the following dose reduction techniques: Automated exposure control, adjustment of mA and/or kv according to the patient's size, and use of iterative reconstruction technique. FINDINGS: Satisfactory enhancement of the pulmonary vasculature is achieved but evaluation is limited due to 2 significant respiratory motion artifact. No obvious acute pulmonary embolus is appreciated. The lung roberts demonstrate advanced emphysematous disease and chronic interstitial changes. No acute consolidation. No effusion. No pneumothorax. Tracheobronchial tree is patent. Atherosclerotic changes to the thoracic aorta and coronary arteries noted without aortic aneurysm or dissection. No cardiomegaly. No pericardial effusion. No axillary, hilar, or mediastinal adenopathy. Musculoskeletal structures demonstrate chronic appearing changes without obvious acute process. IMPRESSION: Limited examination. No definite evidence for pulmonary embolus. No acute mediastinal or pleural parenchymal process. <Electronically signed by Junito Parker > 05/28/21 [id number]
[2021-05-28] MEDS ORDERED: ACETAMINOPHEN TAB 650MG DOSE (2X325MG) PO ONE (13:05)
[2021-05-28 13:15] VITALS: BP 149/100
--- NOTE | 2021-05-30 17:19 | ECGEPIP ---
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
== END 2021-05-28 14:24 | disposition home or self-care (01) ==
LOC: EDBD 10:46 → M ED 10:46
DX: R07.89 Other chest pain (principal); E11.9 Type 2 diabetes mellitus without complications; I10 Essential (primary) hypertension; E78.5 Hyperlipidemia, unspecified; Z86.711 Personal history of pulmonary embolism; Z95.0 Presence of cardiac pacemaker; Z79.899 Other long term (current) drug therapy
CPT/HCPCS: 36415; 71045; 71275; 80048; 82550; 82553; 84484; 85025; 93005; 93041; 94760; 99285; Q9967

== ENCOUNTER 2021-06-14 11:06 | Inpatient (IN) | payer MEDICARE ==
[~2021-06-14] VITALS: Ht 193 cm; Wt 103.5 kg
[~2021-06-14 11:06] MED LIST changes: +META400T; +METF500T13 PO; +TAMS1CAP17 PO
--- OUTSIDE RECORDS SUMMARY | 2021-06-14 13:20 | CCD | Continuity of Care Document ---
Author Author Magdy AHMADI M.D. Organization Unknown Address [address] [place] [id number] Phone [phone] Care Team Providers Care Credit Control Administrator Name Role Phone Paul Rushing MD [facility] [phone] Problems Description No Information Available Social History Type Date Description Comments Sex Unknown Allergies, Adverse Reactions, Alerts Description No Information Available Medications Description No Information Available Immunizations Description No Information Available Vital Signs Description No Information Available Results Test Acquired Date Facility Test Result H/L Range Note CBC W/Automated Diff 05/10/2021 [facility] CBC W/Automated Diff (SEE NOTE) 1 WBC 5.4 10^3/uL 4.2 - 11.0 RBC 4.84 10^6/uL 4.50 - 6.30 Hemoglobin 14.1 g/dL 14.0 - 16.0 Hematocrit 41.6 % 41.0 - 51.0 MCV 86.0 fL 80.0 - 94.0 MCH 29.1 pg 27.0 - 34.0 MCHC 33.9 g/dL 31.0 - 36.0 RDW 13.2 % 11.5 - 14.8 Platelets 265 10^3/uL 150 - 450 MPV 9.3 fL 7.4 - 10.4 Neut 52.2 % 37.0 - 80.0 Lymph 31.6 % 25.0 - 40.0 [place] 11.2 % High 3.0 - 8.0 Eos 3.7 % 0.0 - 7.0 Baso 1.1 % 0.0 - 2.0 %Ig 0.2 % High 0.0 - 0.0 %NRBC 0.0 % 0.0 - 0.0 #Neut 2.84 10^3/uL 2.00 - 6.90 #Lymph 1.72 10^3/uL 0.60 - 3.40 #[place] 0.61 10^3/uL 0.00 - 0.90 #Eos 0.20 10^3/uL 0.00 - 0.70 #Baso 0.06 10^3/uL 0.00 - 0.20 #Ig 0.01 10^3/uL 0.00 - 0.10 #NRBC 0.00 10^3/uL 0.00 - 0.00 Manual Diff NOT INDICATED RBC Morph NOT INDICATED Comprehensive Metabolic Panel 05/10/2021 [facility] Comprehensive Metabo (SEE NOTE) 2 Sodium 131 mEq/L Low 134 - 153 Potassium 4.3 mEq/L 3.6 - 5.0 Chloride 94 mEq/L Low 98 - 107 Co2 27 mEq/L 22 - 30 Glucose 156 mg/dL High 70 - 99 BUN 19 mg/dL 7 - 21 Creatinine 0.6 mg/dL Low 0.7 - 1.5 BUN/Creat 32 High 8 - 27 Total Protein 6.1 g/dL Low 6.3 - 8.2 Albumin 3.8 g/dL Low 3.9 - 5.0 Globulin 2.3 GM/DL Low 2.4 - 3.2 A/G Ratio 1.7 0.8 - 2.0 Calcium 9.3 mg/dL 8.4 - 10.2 Total Bili <0.7 mg/dL 0.2 - 1.3 Alkaline Phos 120 U/L 38 - 126 Sgot/Ast 14 U/L 5 - 40 SGPT/Alt 12 U/L 7 - 56 Anion Gap 10.0 mmol/L 8.0 - 16.0 Age 76 yrs Non-Aa GFR >60 mL/min Afr Amer GFR >60 mL/min 3 Laboratory test finding 05/09/2021 [facility] l Troponin T <0.01 NG/ML 0.00 - 0.10 4 Laboratory test finding 05/09/2021 [facility] l Troponin T <0.01 NG/ML 0.00 - 0.10 5 CBC W/Automated Diff 05/09/2021 [facility] CBC W/Automated Diff (SEE NOTE) 6 WBC 5.7 10^3/uL 4.2 - 11.0 RBC 4.73 10^6/uL 4.50 - 6.30 Hemoglobin 14.0 g/dL 14.0 - 16.0 Hematocrit 40.1 % Low 41.0 - 51.0 MCV 84.8 fL 80.0 - 94.0 MCH 29.6 pg 27.0 - 34.0 MCHC 34.9 g/dL 31.0 - 36.0 RDW 12.8 % 11.5 - 14.8 Platelets 261 10^3/uL 150 - 450 MPV 9.6 fL 7.4 - 10.4 Neut 50.3 % 37.0 - 80.0 Lymph 34.1 % 25.0 - 40.0 [place] 10.4 % High 3.0 - 8.0 Eos 3.9 % 0.0 - 7.0 Baso 0.9 % 0.0 - 2.0 %Ig 0.4 % High 0.0 - 0.0 %NRBC 0.0 % 0.0 - 0.0 #Neut 2.87 10^3/uL 2.00 - 6.90 #Lymph 1.94 10^3/uL 0.60 - 3.40 #[place] 0.59 10^3/uL 0.00 - 0.90 #Eos 0.22 10^3/uL 0.00 - 0.70 #Baso 0.05 10^3/uL 0.00 - 0.20 #Ig 0.02 10^3/uL 0.00 - 0.10 #NRBC 0.00 10^3/uL 0.00 - 0.00 Manual Diff NOT INDICATED RBC Morph NOT INDICATED Comprehensive Metabolic Panel 05/09/2021 [facility] Comprehensive Metabo (SEE NOTE) 7 Sodium 130 mEq/L Low 134 - 153 Potassium 3.9 mEq/L 3.6 - 5.0 Chloride 95 mEq/L Low 98 - 107 Co2 24 mEq/L 22 - 30 Glucose 146 mg/dL High 70 - 99 BUN 15 mg/dL 7 - 21 Creatinine 0.6 mg/dL Low 0.7 - 1.5 BUN/Creat 25 8 - 27 Total Protein 5.9 g/dL Low 6.3 - 8.2 Albumin 3.8 g/dL Low 3.9 - 5.0 Globulin 2.1 GM/DL Low 2.4 - 3.2 A/G Ratio 1.8 0.8 - 2.0 Calcium 8.9 mg/dL 8.4 - 10.2 Total Bili <0.7 mg/dL 0.2 - 1.3 Alkaline Phos 119 U/L 38 - 126 Sgot/Ast 13 U/L 5 - 40 SGPT/Alt 11 U/L 7 - 56 Anion Gap 11.0 mmol/L 8.0 - 16.0 Age 76 yrs Non-Aa GFR >60 mL/min Afr Amer GFR >60 mL/min 8 Laboratory test finding 05/09/2021 [facility] Magnesium Serum 1.7 mg/dL 1.7 - 2.2 Troponin T <0.01 NG/ML 0.00 - 0.10 9 CBC W/Automated Diff 05/08/2021 [facility] CBC W/Automated Diff (SEE NOTE) 10 WBC 5.6 10^3/uL 4.2 - 11.0 RBC 4.63 10^6/uL 4.50 - 6.30 Hemoglobin 13.6 g/dL Low 14.0 - 16.0 Hematocrit 39.0 % Low 41.0 - 51.0 MCV 84.2 fL 80.0 - 94.0 MCH 29.4 pg 27.0 - 34.0 MCHC 34.9 g/dL 31.0 - 36.0 RDW 12.9 % 11.5 - 14.8 Platelets 251 10^3/uL 150 - 450 MPV 9.3 fL 7.4 - 10.4 Neut 59.6 % 37.0 - 80.0 Lymph 26.3 % 25.0 - 40.0 [place] 9.0 % High 3.0 - 8.0 Eos 3.8 % 0.0 - 7.0 Baso 0.9 % 0.0 - 2.0 %Ig 0.4 % High 0.0 - 0.0 %NRBC 0.0 % 0.0 - 0.0 #Neut 3.33 10^3/uL 2.00 - 6.90 #Lymph 1.47 10^3/uL 0.60 - 3.40 #[place] 0.50 10^3/uL 0.00 - 0.90 #Eos 0.21 10^3/uL 0.00 - 0.70 #Baso 0.05 10^3/uL 0.00 - 0.20 #Ig 0.02 10^3/uL 0.00 - 0.10 #NRBC 0.00 10^3/uL 0.00 - 0.00 Manual Diff NOT INDICATED RBC Morph NOT INDICATED Comprehensive Metabolic Panel 05/08/2021 [facility] Comprehensive Metabo (SEE NOTE) 11 Sodium 131 mEq/L Low 134 - 153 Potassium 3.9 mEq/L 3.6 - 5.0 Chloride 95 mEq/L Low 98 - 107 Co2 23 mEq/L 22 - 30 Glucose 192 mg/dL High 70 - 99 BUN 12 mg/dL 7 - 21 Creatinine 0.5 mg/dL Low 0.7 - 1.5 BUN/Creat 24 8 - 27 Total Protein 6.2 g/dL Low 6.3 - 8.2 Albumin 3.9 g/dL 3.9 - 5.0 Globulin 2.3 GM/DL Low 2.4 - 3.2 A/G Ratio 1.7 0.8 - 2.0 Calcium 9.0 mg/dL 8.4 - 10.2 Total Bili <0.7 mg/dL 0.2 - 1.3 Alkaline Phos 128 U/L High 38 - 126 Sgot/Ast 15 U/L 5 - 40 SGPT/Alt 12 U/L 7 - 56 Anion Gap 13.0 mmol/L 8.0 - 16.0 Age 76 yrs Non-Aa GFR >60 mL/min Afr Amer GFR >60 mL/min 12 Laboratory test finding 05/08/2021 [facility] Hgba1c 8.2 % High 4.4 - 6.1 13 CBC W/Automated Diff 05/07/2021 [facility] CBC W/Automated Diff (SEE NOTE) 14 WBC 5.5 10^3/uL 4.2 - 11.0 RBC 4.43 10^6/uL Low 4.50 - 6.30 Hemoglobin 13.1 g/dL Low 14.0 - 16.0 Hematocrit 38.5 % Low 41.0 - 51.0 MCV 86.9 fL 80.0 - 94.0 MCH 29.6 pg 27.0 - 34.0 MCHC 34.0 g/dL 31.0 - 36.0 RDW 13.1 % 11.5 - 14.8 Platelets 218 10^3/uL 150 - 450 MPV 9.6 fL 7.4 - 10.4 Neut 49.7 % 37.0 - 80.0 Lymph 36.4 % 25.0 - 40.0 [place] 9.3 % High 3.0 - 8.0 Eos 3.1 % 0.0 - 7.0 Baso 1.3 % 0.0 - 2.0 %Ig 0.2 % High 0.0 - 0.0 %NRBC 0.0 % 0.0 - 0.0 #Neut 2.74 10^3/uL 2.00 - 6.90 #Lymph 2.00 10^3/uL 0.60 - 3.40 #[place] 0.51 10^3/uL 0.00 - 0.90 #Eos 0.17 10^3/uL 0.00 - 0.70 #Baso 0.07 10^3/uL 0.00 - 0.20 #Ig 0.01 10^3/uL 0.00 - 0.10 #NRBC 0.00 10^3/uL 0.00 - 0.00 Manual Diff NOT INDICATED RBC Morph NOT INDICATED Comprehensive Metabolic Panel 05/07/2021 [facility] Comprehensive Metabo (SEE NOTE) 15 Sodium 130 mEq/L Low 134 - 153 Potassium 4.0 mEq/L 3.6 - 5.0 Chloride 97 mEq/L Low 98 - 107 Co2 21 mEq/L Low 22 - 30 Glucose 166 mg/dL High 70 - 99 BUN 21 mg/dL 7 - 21 Creatinine 0.6 mg/dL Low 0.7 - 1.5 BUN/Creat 35 High 8 - 27 Total Protein 5.7 g/dL Low 6.3 - 8.2 Albumin 3.7 g/dL Low 3.9 - 5.0 Globulin 2.0 GM/DL Low 2.4 - 3.2 A/G Ratio 1.9 0.8 - 2.0 Calcium 8.8 mg/dL 8.4 - 10.2 Total Bili <0.7 mg/dL 0.2 - 1.3 Alkaline Phos 119 U/L 38 - 126 Sgot/Ast 16 U/L 5 - 40 SGPT/Alt 11 U/L 7 - 56 Anion Gap 12.0 mmol/L 8.0 - 16.0 Age 76 yrs Non-Aa GFR >60 mL/min Afr Amer GFR >60 mL/min 16 Laboratory test finding 05/07/2021 [facility] Magnesium Serum 1.6 mg/dL Low 1.7 - 2.2 Troponin T <0.01 NG/ML 0.00 - 0.10 17 Laboratory test finding 05/06/2021 [facility] Troponin T <0.01 NG/ML 0.00 - 0.10 18 1 COMPLETE BLOOD COUNT 2 COMPREHENSIVE METABOLIC PANE L 3 Male GFR Interprentation 20-49 yrs >60 mL/min Normal 50-59 yrs >56 mL/min Normal 60-69 yrs >49 mL/min Normal 70-79yrs >42 mL/min Normal 80 and above >35 mL/min Normal Female GFR Interpretation 20-39 yrs >60 mL/min Normal 40-49 yrs >58 mL/min Normal 50-59 yrs >51 mL/min Normal 60-69 yrs >45 mL/min Normal 70-79 yrs >39 mL/min Normal 80 and above >32 mL/min Normal 4 TROPONIN T 0.1 ng/ml Recommended as the clinical th reshold value for Troponin T. 5 TROPONIN T 0.1 ng/ml Recommended as the clinical th reshold value for Troponin T. 6 COMPLETE BLOOD COUNT 7 COMPREHENSIVE METABOLIC PANE L 8 Male GFR Interprentation 20-49 yrs >60 mL/min Normal 50-59 yrs >56 mL/min Normal 60-69 yrs >49 mL/min Normal 70-79yrs >42 mL/min Normal 80 and above >35 mL/min Normal Female GFR Interpretation 20-39 yrs >60 mL/min Normal 40-49 yrs >58 mL/min Normal 50-59 yrs >51 mL/min Normal 60-69 yrs >45 mL/min Normal 70-79 yrs >39 mL/min Normal 80 and above >32 mL/min Normal 9 TROPONIN T 0.1 ng/ml Recommended as the clinical th reshold value for Troponin T. 10 COMPLETE BLOOD COUNT 11 COMPREHENSIVE METABOLIC PANE L 12 Male GFR Interprentation 20-49 yrs >60 mL/min Normal 50-59 yrs >56 mL/min Normal 60-69 yrs >49 mL/min Normal 70-79yrs >42 mL/min Normal 80 and above >35 mL/min Normal Female GFR Interpretation 20-39 yrs >60 mL/min Normal 40-49 yrs >58 mL/min Normal 50-59 yrs >51 mL/min Normal 60-69 yrs >45 mL/min Normal 70-79 yrs >39 mL/min Normal 80 and above >32 mL/min Normal 13 {A1] {HB] 14 COMPLETE BLOOD COUNT 15 COMPREHENSIVE METABOLIC PANE L 16 Male GFR Interprentation 20-49 yrs >60 mL/min Normal 50-59 yrs >56 mL/min Normal 60-69 yrs >49 mL/min Normal 70-79yrs >42 mL/min Normal 80 and above >35 mL/min Normal Female GFR Interpretation 20-39 yrs >60 mL/min Normal 40-49 yrs >58 mL/min Normal 50-59 yrs >51 mL/min Normal 60-69 yrs >45 mL/min Normal 70-79 yrs >39 mL/min Normal 80 and above >32 mL/min Normal 17 TROPONIN T 0.1 ng/ml Recommended as the clinical th reshold value for Troponin T. 18 TROPONIN T 0.1 ng/ml Recommended as the clinical th reshold value for Troponin T. Procedures Description No Information Available Medical Devices Description No Information Available Encounters Description No Information Available Assessments Description No Information Available Plan of Treatment No Information Available Functional Status Description No Information Available Mental Status Description No Information Available Referrals Description No Information Available
--- OUTSIDE RECORDS SUMMARY | 2021-06-14 13:21 | CCD | Continuity of Care Document ---
Author Author Magdy SANTOYO P.CPark Organization Unknown Address [address] [place] [phone] Phone [phone] Care Team Providers Care Tablet Making Machine Operator Name Role Phone Shira SANTOYO AUTM [phone] Social History Type Date Description Comments Sex Unknown Medications Active Medications SIG Qnty Indications Ordering Provide r Date Amlodipine Besylate 5mg Tablets 1 by mouth every day 90tabs [facility] 021 Atorvastatin Calcium 40mg Tablets 1 by mouth every day 90tabs [facility] 021 Metformin HCL 500mg Tablets Take One Tablet By Mouth Daily 90tabs [facility] 0 03/21/2021 Tamsulosin HCL 0.4mg Capsules 1 by mouth every day 90caps [facility] 021 Metaxalone 400mg Tablets 1 by mouth twice a day 60tabs [facility] 021 Sertraline HCL 25mg Tablets 1 by mouth every day 90tabs [facility] 021 Results Test Acquired Date Facility Test Result H/L Range Note CBC W/Automated Diff 05/08/[address] [address] [phone] CBC W/Automated Diff (SEE NOTE) 1 WBC 5.6 10^3/uL 4.2 - 11.0 RBC [...] 80.0 Lymph 26.3 % 25.0 - 40.0 [place] 9.0 % High 3.0 - 8.0 Eos 3.8 % 0.0 - 7.0 Baso 0.9 % 0.0 - 2.0 %Ig 0.4 % High 0.0 - 0.0 %NRBC 0.0 % 0.0 - 0.0 #Neut 3.33 10^3/uL 2.00 - 6.90 #Lymph 1.47 10^3/uL 0.60 - 3.40 #[place] 0.50 10^3/uL 0.00 - 0.90 #Eos 0.21 10^3/uL 0.00 - 0.70 #Baso 0.05 10^3/uL 0.00 - 0.20 #Ig 0.02 10^3/uL 0.00 - 0.10 #NRBC 0.00 10^3/uL 0.00 - 0.00 Manual Diff NOT INDICATED RBC Morph NOT INDICATED Comprehensive Metabolic Panel 05/08/2021 [facility] [address] [place] [address] [phone] Comprehensive Metabo (SEE NOTE) 2 Sodium 131 [...] GFR >60 mL/min 3 Laboratory test finding 05/08/[address] [phone] Hgba1c 8.2 % High 4.4 - 6.1 4 CBC W/Automated Diff 05/07/[address] [address] [phone] CBC W/Automated Diff (SEE NOTE) 5 WBC 5.5 10^3/uL 4.2 - 11.0 RBC [...] 80.0 Lymph 36.4 % 25.0 - 40.0 [place] 9.3 % High 3.0 - 8.0 Eos 3.1 % 0.0 - 7.0 Baso 1.3 % 0.0 - 2.0 %Ig 0.2 % High 0.0 - 0.0 %NRBC 0.0 % 0.0 - 0.0 #Neut 2.74 10^3/uL 2.00 - 6.90 #Lymph 2.00 10^3/uL 0.60 - 3.40 #[place] 0.51 10^3/uL 0.00 - 0.90 #Eos 0.17 10^3/uL 0.00 - 0.70 #Baso 0.07 10^3/uL 0.00 - 0.20 #Ig 0.01 10^3/uL 0.00 - 0.10 #NRBC 0.00 10^3/uL 0.00 - 0.00 Manual Diff NOT INDICATED RBC Morph NOT INDICATED Comprehensive Metabolic Panel 05/07/2021 [facility] [address] [place] [phone] Comprehensive Metabo (SEE NOTE) 6 Sodium 130 mEq/L Low 134 - 153 [...] >60 mL/min Afr Amer GFR >60 mL/min 7 Laboratory test finding 05/07/2021 [facility] [address] [place] [phone] Magnesium Serum 1.6 mg/dL Low 1.7 - 2.2 Troponin T <0.01 NG/ML 0.00 - 0.10 8 Laboratory test finding 05/06/[address] [address] [phone] Troponin T <0.01 NG/ML 0.00 - 0.10 9 CBC W/Automated Diff 05/06/[address] [address] [phone] CBC W/Automated Diff (SEE NOTE) 10 WBC 7.7 10^3/uL 4.2 - 11.0 RBC 4.77 10^6/uL 4.50 - 6.30 Hemoglobin 14.0 g/dL 14.0 - 16.0 Hematocrit 39.8 % Low 41.0 - 51.0 MCV 83.4 fL 80.0 - 94.0 MCH 29.4 pg 27.0 - 34.0 MCHC 35.2 g/dL 31.0 - 36.0 RDW 12.8 % 11.5 - 14.8 Platelets 244 10^3/uL 150 - 450 MPV 9.0 fL 7.4 - 10.4 Neut 65.7 % 37.0 - 80.0 Lymph 23.3 % Low 25.0 - 40.0 [place] 8.9 % High 3.0 - 8.0 Eos 1.2 % 0.0 - 7.0 Baso 0.8 % 0.0 - 2.0 %Ig 0.1 % High 0.0 - 0.0 %NRBC 0.0 % 0.0 - 0.0 #Neut 5.04 10^3/uL 2.00 - 6.90 #Lymph 1.79 10^3/uL 0.60 - 3.40 #[place] 0.68 10^3/uL 0.00 - 0.90 #Eos 0.09 10^3/uL 0.00 - 0.70 #Baso 0.06 10^3/uL 0.00 - 0.20 #Ig 0.01 10^3/uL 0.00 - 0.10 #NRBC 0.00 10^3/uL 0.00 - 0.00 Manual Diff NOT INDICATED RBC Morph NOT INDICATED Laboratory test finding 05/06/[address] [address] [phone] Troponin T <0.01 NG/ML 0.00 - 0.10 11 Basic Metabolic Panel 05/06/[address] [address] [phone] Basic Metabolic Pane (SEE NOTE) 12 Sodium 129 mEq/L Low 134 - 153 Potassium 3.5 mEq/L Low 3.6 - 5.0 Chloride 93 mEq/L Low 98 - 107 Co2 22 mEq/L 22 - 30 Glucose 173 mg/dL High 70 - 99 BUN 19 mg/dL 7 - 21 Creatinine 0.7 mg/dL 0.7 - 1.5 BUN/Creat 27 8 - 27 Calcium 9.3 mg/dL 8.4 - 10.2 Anion Gap 14.0 mmol/L 8.0 - 16.0 Age 76 yrs Afr Amer GFR >60 mL/min Non-Aa GFR >60 mL/min 13 1 COMPLETE BLOOD COUNT 2 COMPREHENSIVE METABOLIC [...] 80 and above >32 mL/min Normal 4 {A1] {HB] 5 COMPLETE BLOOD COUNT 6 COMPREHENSIVE METABOLIC PANE L 7 Male GFR Interprentation 20-49 yrs >60 mL/min Normal 50-59 yrs >56 mL/min Normal 60-69 yrs >49 mL/min Normal 70-79yrs >42 mL/min Normal 80 and above >35 mL/min Normal Female GFR Interpretation 20-39 yrs >60 mL/min Normal 40-49 yrs >58 mL/min Normal 50-59 yrs >51 mL/min Normal 60-69 yrs >45 mL/min Normal 70-79 yrs >39 mL/min Normal 80 and above >32 mL/min Normal 8 TROPONIN T 0.1 ng/ml Recommended as the clinical th reshold value for Troponin T. 9 TROPONIN T 0.1 ng/ml Recommended as the clinical th reshold value for Troponin T. 10 COMPLETE BLOOD COUNT 11 TROPONIN T 0.1 ng/ml Recommended as the clinical th reshold value for Troponin T. 12 BASIC METABOLIC PANEL 13 Male GFR Interprentation 20-49 yrs >60 mL/min Normal 50-59 yrs >56 mL/min Normal 60-69 yrs >49 mL/min Normal 70-79yrs >42 mL/min Normal 80 and above >35 mL/min Normal Female GFR Interpretation 20-39 yrs >60 mL/min Normal 40-49 yrs >58 mL/min Normal 50-59 yrs >51 mL/min Normal 60-69 yrs >45 mL/min Normal 70-79 yrs >39 mL/min Normal 80 and above >32 mL/min Normal Procedures Date Code Description Status 03/21/2021 78818 Hospital Disch MGMT Completed 03/20/2021 00928 Hospital Care Low Completed 03/19/2021 23218 Hospital Care Low Completed 03/18/2021 73514 Hospital Care Low Completed 03/17/2021 88719 Hospital Care Moderate Completed 03/16/2021 30700 Hospital Care Moderate Completed 03/15/2021 08591 Hospital Care Moderate Completed 03/14/2021 91521 Hospital Care Moderate Completed 03/13/2021 63560 Hospital Care Initial Level 2 Co mpleted 01/10/2021 83364 Hospital Disch MGMT Completed 01/09/2021 13122 Hospital Care Moderate Completed 01/08/2021 76447 Hospital Care Initial Level 2 Co mpleted Assessments Date Code Description Provider 03/21/2021 R55 Syncope and collapse Paul garcía M.D[facility] 03/21/2021 G45.9 Transient cerebral ischemic arnold ck, unspecified Paul Rushing M.D[facility] 03/21/2021 E11.9 Type 2 diabetes mellitus without complications Paul Rushing M.D[facility] 03/21/2021 R26.9 Unspecified abnormalities of gai t and mobility Paul Rushing M[facility] 03/20/2021 R55 Syncope and collapse Paul garcía M.D[facility] 03/20/2021 G45.9 Transient cerebral ischemic arnold ck, unspecified Paul Rushing M[facility] 03/20/2021 E11.9 Type 2 diabetes mellitus without complications Paul Rushing M.D[facility] 03/20/2021 R26.9 Unspecified abnormalities of gai t and mobility Paul Rushing M.D[facility] 03/19/2021 R55 Syncope and collapse Paul garcía M.D[facility] 03/19/2021 G45.9 Transient cerebral ischemic arnold ck, unspecified Paul Rushing M.D[facility] 03/19/2021 E11.9 Type 2 diabetes mellitus without complications Paul Rushing M.D[facility] 03/19/2021 R26.9 Unspecified abnormalities of gai t and mobility Paul Rushing M[facility] 03/18/2021 R55 Syncope and collapse Delaney Vikramsc hman, FLOW MATCH SOFA CUTTER 03/18/2021 G45.9 Transient cerebral ischemic arnold ck, unspecified Delaney Vikramschman, FLOW MATCH SOFA CUTTER 03/18/2021 E11.9 Type 2 diabetes mellitus without complications Delaney Valenteman, FLOW MATCH SOFA CUTTER 03/18/2021 R26.9 Unspecified abnormalities of gai t and mobility Delaneymell Wilson, FLOW MATCH SOFA CUTTER 03/17/2021 R55 Syncope and collapse Delaney Kirsc hman, FLOW MATCH SOFA CUTTER 03/17/2021 G45.9 Transient cerebral ischemic arnold ck, unspecified Delaney Valenteman, FLOW MATCH SOFA CUTTER 03/17/2021 E11.9 Type 2 diabetes mellitus without complications Delaney Katie, FLOW MATCH SOFA CUTTER 03/17/2021 R26.9 Unspecified abnormalities of gai t and mobility Delaney Wilson, FLOW MATCH SOFA CUTTER 03/16/2021 R55 Syncope and collapse Paul garcía M.D., P.[facility] 03/16/2021 G45.9 Transient cerebral ischemic arnold ck, unspecified Paul Rushing M.D[facility] 03/16/2021 E11.9 Type 2 diabetes mellitus without complications Paul Rushing M.D[facility] 03/16/2021 R26.9 Unspecified abnormalities of gai t and mobility Paul Rushing M.D[facility] 03/15/2021 R55 Syncope and collapse Paul garcía M.D., P.[facility]. 03/15/2021 G45.9 Transient cerebral ischemic arnold ck, unspecified Paul Rushing M.D[facility] 03/15/2021 E11.9 Type 2 diabetes mellitus without complications Paul Rushing M.D[facility] 03/15/2021 R26.9 Unspecified abnormalities of gai t and mobility Paul Rushing M.D[facility] 03/14/2021 R55 Syncope and collapse Paul garcía M.D., P.[facility]. 03/14/2021 G45.9 Transient cerebral ischemic arnold ck, unspecified Paul Rushing M.D[facility] 03/14/2021 E11.9 Type 2 diabetes mellitus without complications Paul Rushing M.D[facility] 03/14/2021 R26.9 Unspecified abnormalities of gai t and mobility Paul Rushing M.D[facility] 03/13/2021 R55 Syncope and collapse Delaneymell lay, FLOW MATCH SOFA CUTTER 03/13/2021 G45.9 Transient cerebral ischemic arnold ck, unspecified Delaney Wilson, FLOW MATCH SOFA CUTTER 03/13/2021 E11.9 Type 2 diabetes mellitus without complications Delaney Wilson, FLOW MATCH SOFA CUTTER 03/13/2021 R26.9 Unspecified abnormalities of gai t and mobility Delaney Wilson, FLOW MATCH SOFA CUTTER 01/10/2021 I44.0 Atrioventricular block, first Cale M.D[facility] 01/10/2021 I10 Essential (primary) hypertension Paul Rushing M.D[facility] 01/10/2021 E11.9 Type 2 diabetes mellitus without complications Paul Rushing M.D[facility] 01/09/2021 I44.0 Atrioventricular block, first Cale M.D[facility]. 01/09/2021 I10 Essential (primary) hypertension Paul Rushing M.D[facility] 01/09/2021 E11.9 Type 2 diabetes mellitus without complications Paul Rushing M.D[facility] 01/08/2021 I44.0 Atrioventricular block, first Cale M.D[facility] 01/08/2021 I10 Essential (primary) hypertension Paul Rushing M[facility] 01/08/2021 E11.9 Type 2 diabetes mellitus without complications Paul Rushing M[facility]
--- OUTSIDE RECORDS SUMMARY | 2021-06-14 13:21 | CCD | Continuity of Care Document ---
Author Organization Unknown Address Unknown Phone Unavailable Care Team Providers Care Furnace Combustion Analyst Name Role Phone PAUL RUSHING M.D. [facility] AUTM [phone] Social History Type Date Description Comments Sex [...] H/L Range Note CBC W/Automated Diff 05/08/[address] [address] [phone] CBC W/Automated Diff (SEE NOTE) 1 WBC [...] 80.0 Lymph 26.3 % 25.0 - 40.0 [place] 9.0 % High 3.0 - 8.0 Eos 3.8 % 0.0 - 7.0 Baso 0.9 % 0.0 - 2.0 %Ig 0.4 % High 0.0 - 0.0 %NRBC 0.0 % 0.0 - 0.0 #Neut 3.33 10^3/uL 2.00 - 6.90 #Lymph 1.47 10^3/uL 0.60 - 3.40 #[place] 0.50 10^3/uL 0.00 - 0.90 #Eos 0.21 10^3/uL 0.00 - 0.70 #Baso 0.05 10^3/uL 0.00 - 0.20 #Ig 0.02 10^3/uL 0.00 - 0.10 #NRBC 0.00 10^3/uL 0.00 - 0.00 Manual Diff NOT INDICATED RBC Morph NOT INDICATED Comprehensive Metabolic Panel 05/08/2021 [facility] [address] [place], [place] [phone] Comprehensive Metabo (SEE NOTE) 2 Sodium 131 [...] >60 mL/min 3 Laboratory test finding 05/08/[address] [phone] Hgba1c 8.2 % High 4.4 - 6.1 4 CBC W/Automated Diff 05/07/[address] [address] [phone] CBC W/Automated Diff (SEE NOTE) 5 WBC [...] 80.0 Lymph 36.4 % 25.0 - 40.0 [place] 9.3 % High 3.0 - 8.0 Eos 3.1 % 0.0 - 7.0 Baso 1.3 % 0.0 - 2.0 %Ig 0.2 % High 0.0 - 0.0 %NRBC 0.0 % 0.0 - 0.0 #Neut 2.74 10^3/uL 2.00 - 6.90 #Lymph 2.00 10^3/uL 0.60 - 3.40 #[place] 0.51 10^3/uL 0.00 - 0.90 #Eos 0.17 10^3/uL 0.00 - 0.70 #Baso 0.07 10^3/uL 0.00 - 0.20 #Ig 0.01 10^3/uL 0.00 - 0.10 #NRBC 0.00 10^3/uL 0.00 - 0.00 Manual Diff NOT INDICATED RBC Morph NOT INDICATED Comprehensive Metabolic Panel 05/07/2021 [facility] [address] [place] [phone] Comprehensive Metabo (SEE NOTE) 6 Sodium 130 [...] >60 mL/min 7 Laboratory test finding 05/07/[address] [address] [phone] Magnesium Serum 1.6 mg/dL Low 1.7 - 2.2 Troponin T <0.01 NG/ML 0.00 - 0.10 8 Laboratory test finding 05/06/[address] [address] [phone] Troponin T <0.01 NG/ML 0.00 - 0.10 9 CBC W/Automated Diff 05/06/[address] [address] [phone] CBC W/Automated Diff (SEE NOTE) 10 WBC [...] Lymph 23.3 % Low 25.0 - 40.0 [place] 8.9 % High 3.0 - 8.0 Eos 1.2 % 0.0 - 7.0 Baso 0.8 % 0.0 - 2.0 %Ig 0.1 % High 0.0 - 0.0 %NRBC 0.0 % 0.0 - 0.0 #Neut 5.04 10^3/uL 2.00 - 6.90 #Lymph 1.79 10^3/uL 0.60 - 3.40 #[place] 0.68 10^3/uL 0.00 - 0.90 #Eos 0.09 10^3/uL 0.00 - 0.70 #Baso 0.06 10^3/uL 0.00 - 0.20 #Ig 0.01 10^3/uL 0.00 - 0.10 #NRBC 0.00 10^3/uL 0.00 - 0.00 Manual Diff NOT INDICATED RBC Morph NOT INDICATED Laboratory test finding 05/06/[address] [address] [phone] Troponin T <0.01 NG/ML 0.00 - 0.10 11 Basic Metabolic Panel 05/06/[address] [address] [phone] Basic Metabolic Pane (SEE NOTE) 12 Sodium [...] Normal Procedures Date Code Description Status 03/21/2021 64343 Hospital Disch MGMT Completed 03/20/2021 32543 Hospital Care Low Completed 03/19/2021 73022 Hospital Care Low Completed 03/18/2021 60334 Hospital Care Low Completed 03/17/202139213 Hospital Care Moderate Completed 03/16/2021 63755 Hospital Care Moderate Completed 03/15/2021 87688 Hospital Care Moderate Completed 03/14/2021 62499 Hospital Care Moderate Completed 03/13/2021 01564 Hospital Care Initial Level 2 Co mpleted 01/10/2021 51500 Hospital Disch MGMT Completed 01/09/2021 77560 Hospital Care Moderate Completed 01/08/2021 20531 Hospital Care Initial Level 2 Co mpleted [...] P.C. 03/18/2021 R55 Syncope and collapse Delaney Karissa lay, FINANCIAL SERVICE PROFESSIONAL 03/18/2021 G45.9 Transient cerebral ischemic arnold ck, unspecified Delaney Wilson, FINANCIAL SERVICE PROFESSIONAL 03/18/2021 E11.9 Type 2 diabetes mellitus without complications Delaneymell Wilson, FINANCIAL SERVICE PROFESSIONAL 03/18/2021 R26.9 Unspecified abnormalities of gai t and mobility Delaney Wilson, FINANCIAL SERVICE PROFESSIONAL 03/17/2021 R55 Syncope and collapse Delaney Karissa lay, FINANCIAL SERVICE PROFESSIONAL 03/17/2021 G45.9 Transient cerebral ischemic arnold ck, unspecified Delaney Katie, FINANCIAL SERVICE PROFESSIONAL 03/17/2021 E11.9 Type 2 diabetes mellitus without complications Delaneymell Wilson, FINANCIAL SERVICE PROFESSIONAL 03/17/2021 R26.9 Unspecified abnormalities of gai t and mobility Delaney Wilson, FINANCIAL SERVICE PROFESSIONAL 03/16/2021 R55 Syncope and collapse Paul garcía [...] M.D., P.C. 03/13/2021 R55 Syncope and collapse Delaney Karissa lay, FINANCIAL SERVICE PROFESSIONAL 03/13/2021 G45.9 Transient cerebral ischemic arnold ck, unspecified Delaney Katie, FINANCIAL SERVICE PROFESSIONAL 03/13/2021 E11.9 Type 2 diabetes mellitus without complications Delaney Wilson, FINANCIAL SERVICE PROFESSIONAL 03/13/2021 R26.9 Unspecified abnormalities of gai t and mobility Delaney Wilson, FINANCIAL SERVICE PROFESSIONAL 01/10/2021 I44.0 Atrioventricular block, first Cale M.D., [...]
--- OUTSIDE RECORDS SUMMARY | 2021-06-14 13:21 | CCD | Continuity of Care Document ---
Author Organization Unknown Address Unknown Phone Unavailable Care Team Providers Care Channel Account Manager Name Role Phone PAUL RUSHING M.D. P.C[facility] AUTM [phone] Social History Type Date Description Comments Sex [...] Date Facility Test Result H/L Range Note Comprehensive Metabolic Panel 05/10/2021 [facility] [address] [place] [address] [phone] Comprehensive Metabo (SEE NOTE) 1 Sodium 131 mEq/L Low 134 - 153 [...] >60 mL/min Afr Amer GFR >60 mL/min 2 CBC W/Automated Diff 05/10/[address] [phone] CBC W/Automated Diff (SEE NOTE) 3 WBC 5.4 10^3/uL 4.2 - 11.0 RBC [...] 80.0 Lymph 31.6 % 25.0 - 40.0 [place] 11.2 % High 3.0 - 8.0 Eos 3.7 % 0.0 - 7.0 Baso 1.1 % 0.0 - 2.0 %Ig 0.2 % High 0.0 - 0.0 %NRBC 0.0 % 0.0 - 0.0 #Neut 2.84 10^3/uL 2.00 - 6.90 #Lymph 1.72 10^3/uL 0.60 - 3.40 #[place] 0.61 10^3/uL 0.00 - 0.90 #Eos 0.20 10^3/uL 0.00 - 0.70 #Baso 0.06 10^3/uL 0.00 - 0.20 #Ig 0.01 10^3/uL 0.00 - 0.10 #NRBC 0.00 10^3/uL 0.00 - 0.00 Manual Diff NOT INDICATED RBC Morph NOT INDICATED Laboratory test finding 05/09/2021 [place] [address] [phone] Troponin T <0.01 NG/ML 0.00 - 0.10 4 Laboratory test finding 05/09/2021 [place] [address] [phone] Troponin T <0.01 NG/ML 0.00 - 0.10 5 CBC W/Automated Diff 05/09/2021 [place] [address] [phone] CBC W/Automated Diff (SEE NOTE) 6 WBC [...] 80.0 Lymph 34.1 % 25.0 - 40.0 [place] 10.4 % High 3.0 - 8.0 Eos 3.9 % 0.0 - 7.0 Baso 0.9 % 0.0 - 2.0 %Ig 0.4 % High 0.0 - 0.0 %NRBC 0.0 % 0.0 - 0.0 #Neut 2.87 10^3/uL 2.00 - 6.90 #Lymph 1.94 10^3/uL 0.60 - 3.40 #[place] 0.59 10^3/uL 0.00 - 0.90 #Eos 0.22 10^3/uL 0.00 - 0.70 #Baso 0.05 10^3/uL 0.00 - 0.20 #Ig 0.02 10^3/uL 0.00 - 0.10 #NRBC 0.00 10^3/uL 0.00 - 0.00 Manual Diff NOT INDICATED RBC Morph NOT INDICATED Comprehensive Metabolic Panel 05/09/2021 [facility] [address] [place] [phone] Comprehensive Metabo (SEE NOTE) 7 Sodium 130 [...] >60 mL/min 8 Laboratory test finding 05/09/2021 [facility] [address] [place] [address] [phone] Magnesium Serum 1.7 mg/dL 1.7 - 2.2 Troponin T <0.01 NG/ML 0.00 - 0.10 9 Comprehensive Metabolic Panel 05/08/2021 [facility] [address] [place] [phone] Comprehensive Metabo (SEE NOTE) 10 Sodium 131 mEq/L Low 134 - 153 [...] >60 mL/min Afr Amer GFR >60 mL/min 11 Laboratory test finding 05/08/[address] [phone] Hgba1c 8.2 % High 4.4 - 6.1 12 CBC W/Automated Diff 05/08/[address] [address] [phone] CBC W/Automated Diff (SEE NOTE) 13 WBC 5.6 10^3/uL 4.2 - 11.0 RBC [...] 80.0 Lymph 26.3 % 25.0 - 40.0 [place] 9.0 % High 3.0 - 8.0 Eos 3.8 % 0.0 - 7.0 Baso 0.9 % 0.0 - 2.0 %Ig 0.4 % High 0.0 - 0.0 %NRBC 0.0 % 0.0 - 0.0 #Neut 3.33 10^3/uL 2.00 - 6.90 #Lymph 1.47 10^3/uL 0.60 - 3.40 #[place] 0.50 10^3/uL 0.00 - 0.90 #Eos 0.21 10^3/uL 0.00 - 0.70 #Baso 0.05 10^3/uL 0.00 - 0.20 #Ig 0.02 10^3/uL 0.00 - 0.10 #NRBC 0.00 10^3/uL 0.00 - 0.00 Manual Diff NOT INDICATED RBC Morph NOT INDICATED CBC W/Automated Diff 05/07/[address] [phone] CBC W/Automated Diff (SEE NOTE) 14 WBC [...] 80.0 Lymph 36.4 % 25.0 - 40.0 [place] 9.3 % High 3.0 - 8.0 Eos 3.1 % 0.0 - 7.0 Baso 1.3 % 0.0 - 2.0 %Ig 0.2 % High 0.0 - 0.0 %NRBC 0.0 % 0.0 - 0.0 #Neut 2.74 10^3/uL 2.00 - 6.90 #Lymph 2.00 10^3/uL 0.60 - 3.40 #[place] 0.51 10^3/uL 0.00 - 0.90 #Eos 0.17 10^3/uL 0.00 - 0.70 #Baso 0.07 10^3/uL 0.00 - 0.20 #Ig 0.01 10^3/uL 0.00 - 0.10 #NRBC 0.00 10^3/uL 0.00 - 0.00 Manual Diff NOT INDICATED RBC Morph NOT INDICATED Comprehensive Metabolic Panel 05/07/2021 [facility] [address] [place] [address] [phone] Comprehensive Metabo (SEE NOTE) 15 Sodium 130 [...] >60 mL/min 16 Laboratory test finding 05/07/[address] [address] [phone] Magnesium Serum 1.6 mg/dL Low 1.7 - 2.2 Troponin T <0.01 NG/ML 0.00 - 0.10 17 Laboratory test finding 05/06/[address] [address] [phone] Troponin T <0.01 NG/ML 0.00 - 0.10 18 CBC W/Automated Diff 05/06/[address] [address] [phone] CBC W/Automated Diff (SEE NOTE) 19 WBC 7.7 10^3/uL 4.2 - 11.0 RBC [...] Lymph 23.3 % Low 25.0 - 40.0 [place] 8.9 % High 3.0 - 8.0 Eos 1.2 % 0.0 - 7.0 Baso 0.8 % 0.0 - 2.0 %Ig 0.1 % High 0.0 - 0.0 %NRBC 0.0 % 0.0 - 0.0 #Neut 5.04 10^3/uL 2.00 - 6.90 #Lymph 1.79 10^3/uL 0.60 - 3.40 #[place] 0.68 10^3/uL 0.00 - 0.90 #Eos 0.09 10^3/uL 0.00 - 0.70 #Baso 0.06 10^3/uL 0.00 - 0.20 #Ig 0.01 10^3/uL 0.00 - 0.10 #NRBC 0.00 10^3/uL 0.00 - 0.00 Manual Diff NOT INDICATED RBC Morph NOT INDICATED Laboratory test finding 05/06/[address] [address] [phone] Troponin T <0.01 NG/ML 0.00 - 0.10 20 Basic Metabolic Panel 05/06/[address] [address] [phone] Basic Metabolic Pane (SEE NOTE) 21 Sodium 129 mEq/L Low 134 - 153 [...] GFR >60 mL/min Non-Aa GFR >60 mL/min 22 1 COMPREHENSIVE METABOLIC PANE L 2 Male GFR Interprentation 20-49 yrs >60 mL/min Normal 50-59 yrs >56 mL/min Normal 60-69 yrs >49 mL/min Normal 70-79yrs >42 mL/min Normal 80 and above >35 mL/min Normal Female GFR Interpretation 20-39 yrs >60 mL/min Normal 40-49 yrs >58 mL/min Normal 50-59 yrs >51 mL/min Normal 60-69 yrs >45 mL/min Normal 70-79 yrs >39 mL/min Normal 80 and above >32 mL/min Normal 3 COMPLETE BLOOD COUNT 4 TROPONIN T 0.1 ng/ml Recommended as [...] th reshold value for Troponin T. 10 COMPREHENSIVE METABOLIC PANE L 11 Male GFR Interprentation 20-49 yrs >60 mL/min Normal 50-59 yrs >56 mL/min Normal 60-69 yrs >49 mL/min Normal 70-79yrs >42 mL/min Normal 80 and above >35 mL/min Normal Female GFR Interpretation 20-39 yrs >60 mL/min Normal 40-49 yrs >58 mL/min Normal 50-59 yrs >51 mL/min Normal 60-69 yrs >45 mL/min Normal 70-79 yrs >39 mL/min Normal 80 and above >32 mL/min Normal 12 {A1] {HB] 13 COMPLETE BLOOD COUNT 14 COMPLETE BLOOD COUNT 15 COMPREHENSIVE METABOLIC [...] clinical th reshold value for Troponin T. 19 COMPLETE BLOOD COUNT 20 TROPONIN T 0.1 ng/ml Recommended as the clinical th reshold value for Troponin T. 21 BASIC METABOLIC PANEL 22 Male GFR Interprentation 20-49 yrs >60 mL/min [...] Normal Procedures Date Code Description Status 03/21/2021 84528 Hospital Disch MGMT Completed 03/20/2021 [id number] Hospital Care Low Completed 03/19/2021 [id number] Hospital Care Low Completed 03/18/2021 [id number] Hospital Care Low Completed 03/17/2021 [id number] Hospital Care Moderate Completed 03/16/2021 [id number] Hospital Care Moderate Completed 03/15/2021 [id number] Hospital Care Moderate Completed 03/14/2021 [id number] Hospital Care Moderate Completed 03/13/2021 [id number] Hospital Care Initial Level 2 Co mpleted 01/10/2021 [id number] Hospital Disch MGMT Completed 01/09/2021 [id number] Hospital Care Moderate Completed 01/08/2021 18675 Hospital Care Initial Level 2 Co mpleted [...] R55 Syncope and collapse Delaney Karissa lay, [employer]ING [employer] 03/18/2021 G45.9 Transient cerebral ischemic arnold ck, unspecified Delaney Wilson, [employer] 03/18/2021 E11.9 Type 2 diabetes mellitus without complications Delaney Wilson, [employer]ING [employer] 03/18/2021 R26.9 Unspecified abnormalities of gai t and mobility Delaney Wilson, [employer] 03/17/2021 R55 Syncope and collapse Delaney Karissa lay, [employer]ING [employer] 03/17/2021 G45.9 Transient cerebral ischemic arnold ck, unspecified Delaney Katie, [employer] 03/17/2021 E11.9 Type 2 diabetes mellitus without complications Delaney Wilson, [employer]ING [employer] 03/17/2021 R26.9 Unspecified abnormalities of gai t and mobility Delaney Wilson, [employer]ING [employer] 03/16/2021 R55 Syncope and collapse Paul garcía [...] [facility] 03/13/2021 R55 Syncope and collapse Delaney lay, [employer]ING [employer] 03/13/2021 G45.9 Transient cerebral ischemic arnold ck, unspecified Delaney Wilson, [employer]ING [employer] 03/13/2021 E11.9 Type 2 diabetes mellitus without complications Delaney Wilson, [employer]ING [employer] 03/13/2021 R26.9 Unspecified abnormalities of gai t and mobility Delaney Wilson, [employer] 01/10/2021 I44.0 Atrioventricular block, first Cale M.D., [...]
--- OUTSIDE RECORDS SUMMARY | 2021-06-14 13:21 | CCD | Continuity of Care Document ---
Author Author Magdy SANTOYO P.CPark Organization Unknown Address [address] [place] [address] Phone [phone] Care Team Providers Care Ice Cream Scooper Name Role Phone Shira SANTOYO AUTM [phone] Social History Type Date Description Comments Sex [...] H/L Range Note Comprehensive Metabolic Panel 05/10/2021 [facility] [address] [place] [address] [phone] Comprehensive Metabo (SEE NOTE) 1 Sodium 131 [...] >60 mL/min 2 CBC W/Automated Diff 05/10/[address] [phone] CBC W/Automated Diff (SEE NOTE) 3 WBC [...] 80.0 Lymph 31.6 % 25.0 - 40.0 Kimball 11.2 % High 3.0 - 8.0 Eos 3.7 % 0.0 - 7.0 Baso 1.1 % 0.0 - 2.0 %Ig 0.2 % High 0.0 - 0.0 %NRBC 0.0 % 0.0 - 0.0 #Neut 2.84 10^3/uL 2.00 - 6.90 #Lymph 1.72 10^3/uL 0.60 - 3.40 #Kimball 0.61 10^3/uL 0.00 - 0.90 #Eos 0.20 10^3/uL 0.00 - 0.70 #Baso 0.06 10^3/uL 0.00 - 0.20 #Ig 0.01 10^3/uL 0.00 - 0.10 #NRBC 0.00 10^3/uL 0.00 - 0.00 Manual Diff NOT INDICATED RBC Morph NOT INDICATED Laboratory test finding 05/09/2021 [place] [address] [phone] Troponin T <0.01 NG/ML 0.00 - 0.10 4 Laboratory test finding 05/09/2021 [place] [address] [phone] Troponin T <0.01 NG/ML 0.00 - 0.10 5 CBC W/Automated Diff 05/09/2021 [place] [address] [phone] CBC W/Automated Diff (SEE NOTE) 6 WBC [...] 80.0 Lymph 34.1 % 25.0 - 40.0 Kimball 10.4 % High 3.0 - 8.0 Eos 3.9 % 0.0 - 7.0 Baso 0.9 % 0.0 - 2.0 %Ig 0.4 % High 0.0 - 0.0 %NRBC 0.0 % 0.0 - 0.0 #Neut 2.87 10^3/uL 2.00 - 6.90 #Lymph 1.94 10^3/uL 0.60 - 3.40 #Kimball 0.59 10^3/uL 0.00 - 0.90 #Eos 0.22 10^3/uL 0.00 - 0.70 #Baso 0.05 10^3/uL 0.00 - 0.20 #Ig 0.02 10^3/uL 0.00 - 0.10 #NRBC 0.00 10^3/uL 0.00 - 0.00 Manual Diff NOT INDICATED RBC Morph NOT INDICATED Comprehensive Metabolic Panel 05/09/2021 [facility] [address] [place] [phone] Comprehensive Metabo (SEE NOTE) 7 Sodium 130 [...] >60 mL/min 8 Laboratory test finding 05/09/2021 [facility] [address] [place] [address] [phone] Magnesium Serum 1.7 mg/dL 1.7 - 2.2 Troponin T <0.01 NG/ML 0.00 - 0.10 9 Comprehensive Metabolic Panel 05/08/2021 [facility] [address] [place] [address] [phone] Comprehensive Metabo (SEE NOTE) 10 Sodium 131 [...] >60 mL/min 11 Laboratory test finding 05/08/[address] [phone] Hgba1c 8.2 % High 4.4 - 6.1 12 CBC W/Automated Diff 05/08/[address] [address] [phone] CBC W/Automated Diff (SEE NOTE) 13 WBC [...] 80.0 Lymph 26.3 % 25.0 - 40.0 Kimball 9.0 % High 3.0 - 8.0 Eos 3.8 % 0.0 - 7.0 Baso 0.9 % 0.0 - 2.0 %Ig 0.4 % High 0.0 - 0.0 %NRBC 0.0 % 0.0 - 0.0 #Neut 3.33 10^3/uL 2.00 - 6.90 #Lymph 1.47 10^3/uL 0.60 - 3.40 #Kimball 0.50 10^3/uL 0.00 - 0.90 #Eos 0.21 10^3/uL 0.00 - 0.70 #Baso 0.05 10^3/uL 0.00 - 0.20 #Ig 0.02 10^3/uL 0.00 - 0.10 #NRBC 0.00 10^3/uL 0.00 - 0.00 Manual Diff NOT INDICATED RBC Morph NOT INDICATED CBC W/Automated Diff 05/07/[address] [phone] CBC W/Automated Diff (SEE NOTE) 14 WBC [...] 80.0 Lymph 36.4 % 25.0 - 40.0 Kimball 9.3 % High 3.0 - 8.0 Eos 3.1 % 0.0 - 7.0 Baso 1.3 % 0.0 - 2.0 %Ig 0.2 % High 0.0 - 0.0 %NRBC 0.0 % 0.0 - 0.0 #Neut 2.74 10^3/uL 2.00 - 6.90 #Lymph 2.00 10^3/uL 0.60 - 3.40 #Kimball 0.51 10^3/uL 0.00 - 0.90 #Eos 0.17 10^3/uL 0.00 - 0.70 #Baso 0.07 10^3/uL 0.00 - 0.20 #Ig 0.01 10^3/uL 0.00 - 0.10 #NRBC 0.00 10^3/uL 0.00 - 0.00 Manual Diff NOT INDICATED RBC Morph NOT INDICATED Comprehensive Metabolic Panel 05/07/2021 [facility] [address] [place], [place] [phone] Comprehensive Metabo (SEE NOTE) 15 Sodium 130 [...] >60 mL/min 16 Laboratory test finding [facility] [address] [place] [address] [phone] Magnesium Serum 1.6 mg/dL Low 1.7 - 2.2 Troponin T <0.01 NG/ML 0.00 - 0.10 17 Laboratory test finding 05/06/[address] [address] [phone] Troponin T <0.01 NG/ML 0.00 - 0.10 18 CBC W/Automated Diff 05/06/[address] [address] [phone] CBC W/Automated Diff (SEE NOTE) 19 WBC [...] Lymph 23.3 % Low 25.0 - 40.0 Kimball 8.9 % High 3.0 - 8.0 Eos 1.2 % 0.0 - 7.0 Baso 0.8 % 0.0 - 2.0 %Ig 0.1 % High 0.0 - 0.0 %NRBC 0.0 % 0.0 - 0.0 #Neut 5.04 10^3/uL 2.00 - 6.90 #Lymph 1.79 10^3/uL 0.60 - 3.40 #Kimball 0.68 10^3/uL 0.00 - 0.90 #Eos 0.09 10^3/uL 0.00 - 0.70 #Baso 0.06 10^3/uL 0.00 - 0.20 #Ig 0.01 10^3/uL 0.00 - 0.10 #NRBC 0.00 10^3/uL 0.00 - 0.00 Manual Diff NOT INDICATED RBC Morph NOT INDICATED Laboratory test finding 05/06/[address] [address] [phone] Troponin T <0.01 NG/ML 0.00 - 0.10 20 Basic Metabolic Panel 05/06/[address] [address] [phone] Basic Metabolic Pane (SEE NOTE) 21 Sodium [...] mL/min Normal Procedures Date Code Description Status 05/08/2021 01911 Echocardiogram, Complete Complet ed 03/21/2021 76737 Hospital Disch MGMT Completed 03/20/2021 62849 Hospital Care Low Completed 03/19/2021 00815 Hospital Care Low Completed 03/18/2021 17669 Hospital Care Low Completed 03/17/2021 89268 Hospital Care Moderate Completed 03/16/2021 50142 Hospital Care Moderate Completed 03/15/2021 18234 Hospital Care Moderate Completed 03/14/2021 08212 Hospital Care Moderate Completed 03/13/2021 32006 Hospital Care Initial Level 2 Co mpleted 01/10/2021 67463 Hospital Disch MGMT Completed 01/09/2021 57591 Hospital Care Moderate Completed 01/08/2021 01721 Hospital Care Initial Level 2 Co mpleted Assessments Date Code Description Provider 05/08/2021 I34.0 Nonrheumatic mitral (valve) insu fficiency Paul Rushing [facility] 03/21/2021 R55 Syncope and collapse Paul garcía [...] P.C. 03/18/2021 R55 Syncope and collapse Delaney lay NP 03/18/2021 G45.9 Transient cerebral ischemic arnold ck, unspecified Delaney Wilson NP 03/18/2021 E11.9 Type 2 diabetes mellitus without complications Delaney Wilson, [employer]WORK ADMINISTRATOR 03/18/2021 R26.9 Unspecified abnormalities of gai t and mobility Delaney Wilson, [employer] NETWORK ADMINISTRATOR 03/17/2021 R55 Syncope and collapse Delaney lay, LOC[employer] NETWORK ADMINISTRATOR 03/17/2021 G45.9 Transient cerebral ischemic arnold ck, unspecified Delaney Wilson, LOC[employer] NETWORK ADMINISTRATOR 03/17/2021 E11.9 Type 2 diabetes mellitus without complications Delaney Wilson, LOC[employer] NETWORK ADMINISTRATOR 03/17/2021 R26.9 Unspecified abnormalities of gai t and mobility Delaney Wilson, LOC[employer] NETWORK ADMINISTRATOR 03/16/2021 R55 Syncope and collapse Paul garcía [...] 03/13/2021 R55 Syncope and collapse Delaney lay, LOC[employer] NETWORK ADMINISTRATOR 03/13/2021 G45.9 Transient cerebral ischemic arnold ck, unspecified Delaney Wilson, LOC[employer] NETWORK ADMINISTRATOR 03/13/2021 E11.9 Type 2 diabetes mellitus without complications Delaney Wilson, LOC[employer] NETWORK ADMINISTRATOR 03/13/2021 R26.9 Unspecified abnormalities of gai t and mobility Delaney Wilson, LOCAL ARE[employer] NETWORK ADMINISTRATOR 01/10/2021 I44.0 Atrioventricular block, first Cale M.D., [...]
--- OUTSIDE RECORDS SUMMARY | 2021-06-14 13:21 | CCD | Continuity of Care Document ---
Author Author Magdy AHMADI M.D. Organization Unknown Address [address] [place] [address] Phone [phone] Care Team Providers Care Sinter Feeder Name Role Phone Paul Rushing MD [facility] [phone] Problems Description No Information Available Social History Type Date Description Comments Sex Unknown Allergies, Adverse Reactions, Alerts Description No Information Available Medications Description No Information Available Immunizations Description No Information Available Vital Signs Description No Information Available Results Test Acquired Date Facility Test Result H/L Range Note CBC W/Automated Diff 05/10/2021 [facility] CBC W/Automated Diff (SEE NOTE) 1 WBC [...] 80.0 Lymph 31.6 % 25.0 - 40.0 Gilliam 11.2 % High 3.0 - 8.0 Eos 3.7 % 0.0 - 7.0 Baso 1.1 % 0.0 - 2.0 %Ig 0.2 % High 0.0 - 0.0 %NRBC 0.0 % 0.0 - 0.0 #Neut 2.84 10^3/uL 2.00 - 6.90 #Lymph 1.72 10^3/uL 0.60 - 3.40 #Gilliam 0.61 10^3/uL 0.00 - 0.90 #Eos 0.20 10^3/uL 0.00 - 0.70 #Baso 0.06 10^3/uL 0.00 - 0.20 #Ig 0.01 10^3/uL 0.00 - 0.10 #NRBC 0.00 10^3/uL 0.00 - 0.00 Manual Diff NOT INDICATED RBC Morph NOT INDICATED Comprehensive Metabolic Panel 05/10/2021 [facility] Comprehensive Metabo (SEE NOTE) 2 Sodium 131 [...] >60 mL/min 3 Laboratory test finding 05/09/2021 [facility] Troponin T <0.01 NG/ML 0.00 - 0.10 4 Laboratory test finding 05/09/2021 [facility] Troponin T <0.01 NG/ML 0.00 - 0.10 5 CBC W/Automated Diff 05/09/2021 [facility] CBC W/Automated Diff (SEE NOTE) 6 WBC [...] 80.0 Lymph 34.1 % 25.0 - 40.0 Gilliam 10.4 % High 3.0 - 8.0 Eos 3.9 % 0.0 - 7.0 Baso 0.9 % 0.0 - 2.0 %Ig 0.4 % High 0.0 - 0.0 %NRBC 0.0 % 0.0 - 0.0 #Neut 2.87 10^3/uL 2.00 - 6.90 #Lymph 1.94 10^3/uL 0.60 - 3.40 #Gilliam 0.59 10^3/uL 0.00 - 0.90 #Eos 0.22 10^3/uL 0.00 - 0.70 #Baso 0.05 10^3/uL 0.00 - 0.20 #Ig 0.02 10^3/uL 0.00 - 0.10 #NRBC 0.00 10^3/uL 0.00 - 0.00 Manual Diff NOT INDICATED RBC Morph NOT INDICATED Comprehensive Metabolic Panel 05/09/2021 [facility] Comprehensive Metabo (SEE NOTE) 7 [...] >60 mL/min 8 Laboratory test finding 05/09/2021 [facility] Magnesium Serum 1.7 mg/dL 1.7 - 2.2 Troponin T <0.01 NG/ML 0.00 - 0.10 9 CBC W/Automated Diff 05/08/2021 [facility] CBC W/Automated Diff (SEE NOTE) 10 WBC [...] 80.0 Lymph 26.3 % 25.0 - 40.0 Gilliam 9.0 % High 3.0 - 8.0 Eos 3.8 % 0.0 - 7.0 Baso 0.9 % 0.0 - 2.0 %Ig 0.4 % High 0.0 - 0.0 %NRBC 0.0 % 0.0 - 0.0 #Neut 3.33 10^3/uL 2.00 - 6.90 #Lymph 1.47 10^3/uL 0.60 - 3.40 #Gilliam 0.50 10^3/uL 0.00 - 0.90 #Eos 0.21 10^3/uL 0.00 - 0.70 #Baso 0.05 10^3/uL 0.00 - 0.20 #Ig 0.02 10^3/uL 0.00 - 0.10 #NRBC 0.00 10^3/uL 0.00 - 0.00 Manual Diff NOT INDICATED RBC Morph NOT INDICATED Comprehensive Metabolic Panel 05/08/2021 [facility] Comprehensive Metabo (SEE NOTE) 11 [...] >60 mL/min 12 Laboratory test finding 05/08/2021 [facility] Hgba1c 8.2 % High 4.4 - 6.1 13 CBC W/Automated Diff 05/07/2021 [facility] CBC W/Automated Diff (SEE NOTE) 14 WBC [...] 80.0 Lymph 36.4 % 25.0 - 40.0 Gilliam 9.3 % High 3.0 - 8.0 Eos 3.1 % 0.0 - 7.0 Baso 1.3 % 0.0 - 2.0 %Ig 0.2 % High 0.0 - 0.0 %NRBC 0.0 % 0.0 - 0.0 #Neut 2.74 10^3/uL 2.00 - 6.90 #Lymph 2.00 10^3/uL 0.60 - 3.40 #Gilliam 0.51 10^3/uL 0.00 - 0.90 #Eos 0.17 10^3/uL 0.00 - 0.70 #Baso 0.07 10^3/uL 0.00 - 0.20 #Ig 0.01 10^3/uL 0.00 - 0.10 #NRBC 0.00 10^3/uL 0.00 - 0.00 Manual Diff NOT INDICATED RBC Morph NOT INDICATED Comprehensive Metabolic Panel 05/07/2021 [facility] Comprehensive Metabo (SEE NOTE) 15 [...] >60 mL/min 16 Laboratory test finding 05/07/2021 [facility] Magnesium Serum 1.6 mg/dL Low 1.7 - 2.2 Troponin T <0.01 NG/ML 0.00 - 0.10 17 Laboratory test finding 05/06/2021 [facility] Troponin T <0.01 NG/ML 0.00 - 0.10 [...]
--- OUTSIDE RECORDS SUMMARY | 2021-06-14 13:21 | CCD | Continuity of Care Document ---
Author Organization Unknown Address Unknown Phone Unavailable Care Team Providers Care Line Out Worker Name Role Phone [facility]UL [facility] AUTM [phone] Social History Type Date Description Comments Sex [...] Result H/L Range Note CBC W/Automated Diff 05/09/[address] [address] [phone] CBC W/Automated Diff (SEE NOTE) 1 WBC 5.7 10^3/uL 4.2 - 11.0 RBC [...] 80.0 Lymph 34.1 % 25.0 - 40.0 Nobles 10.4 % High 3.0 - 8.0 Eos 3.9 % 0.0 - 7.0 Baso 0.9 % 0.0 - 2.0 %Ig 0.4 % High 0.0 - 0.0 %NRBC 0.0 % 0.0 - 0.0 #Neut 2.87 10^3/uL 2.00 - 6.90 #Lymph 1.94 10^3/uL 0.60 - 3.40 #Nobles 0.59 10^3/uL 0.00 - 0.90 #Eos 0.22 10^3/uL 0.00 - 0.70 #Baso 0.05 10^3/uL 0.00 - 0.20 #Ig 0.02 10^3/uL 0.00 - 0.10 #NRBC 0.00 10^3/uL 0.00 - 0.00 Manual Diff NOT INDICATED RBC Morph NOT INDICATED Comprehensive Metabolic Panel 05/09/2021 [facility] [address] [place], [place] [phone] Comprehensive Metabo (SEE NOTE) 2 Sodium 130 mEq/L Low 134 - 153 [...] mL/min Afr Amer GFR >60 mL/min 3 CBC W/Automated Diff 05/08/[address] [address] [phone] CBC W/Automated Diff (SEE NOTE) 4 WBC 5.6 10^3/uL 4.2 - 11.0 RBC [...] 80.0 Lymph 26.3 % 25.0 - 40.0 Nobles 9.0 % High 3.0 - 8.0 Eos 3.8 % 0.0 - 7.0 Baso 0.9 % 0.0 - 2.0 %Ig 0.4 % High 0.0 - 0.0 %NRBC 0.0 % 0.0 - 0.0 #Neut 3.33 10^3/uL 2.00 - 6.90 #Lymph 1.47 10^3/uL 0.60 - 3.40 #Nobles 0.50 10^3/uL 0.00 - 0.90 #Eos 0.21 10^3/uL 0.00 - 0.70 #Baso 0.05 10^3/uL 0.00 - 0.20 #Ig 0.02 10^3/uL 0.00 - 0.10 #NRBC 0.00 10^3/uL 0.00 - 0.00 Manual Diff NOT INDICATED RBC Morph NOT INDICATED Comprehensive Metabolic Panel 05/08/2021 [facility] [address] [address] [phone] Comprehensive Metabo (SEE NOTE) 5 Sodium 131 mEq/L Low 134 - 153 [...] >60 mL/min Afr Amer GFR >60 mL/min 6 Laboratory test finding 05/08/[address] [address] [phone] Hgba1c 8.2 % High 4.4 - 6.1 7 CBC W/Automated Diff 05/07/[address] [address] [phone] CBC W/Automated Diff (SEE NOTE) 8 WBC 5.5 10^3/uL 4.2 - 11.0 RBC [...] 80.0 Lymph 36.4 % 25.0 - 40.0 Nobles 9.3 % High 3.0 - 8.0 Eos 3.1 % 0.0 - 7.0 Baso 1.3 % 0.0 - 2.0 %Ig 0.2 % High 0.0 - 0.0 %NRBC 0.0 % 0.0 - 0.0 #Neut 2.74 10^3/uL 2.00 - 6.90 #Lymph 2.00 10^3/uL 0.60 - 3.40 #Nobles 0.51 10^3/uL 0.00 - 0.90 #Eos 0.17 10^3/uL 0.00 - 0.70 #Baso 0.07 10^3/uL 0.00 - 0.20 #Ig 0.01 10^3/uL 0.00 - 0.10 #NRBC 0.00 10^3/uL 0.00 - 0.00 Manual Diff NOT INDICATED RBC Morph NOT INDICATED Comprehensive Metabolic Panel 05/07/2021 [facility] [address] [place] [phone] Comprehensive Metabo (SEE NOTE) 9 Sodium 130 mEq/L Low 134 - 153 [...] >60 mL/min Afr Amer GFR >60 mL/min 10 Laboratory test finding 05/07/2021 [place] [address] [phone] Magnesium Serum 1.6 mg/dL Low 1.7 - 2.2 Troponin T <0.01 NG/ML 0.00 - 0.10 11 Laboratory test finding 05/06/[address] [address] [phone] Troponin T <0.01 NG/ML 0.00 - 0.10 12 CBC W/Automated Diff 05/06/2021 [place] [address] [phone] CBC W/Automated Diff (SEE NOTE) 13 WBC 7.7 10^3/uL 4.2 - 11.0 RBC [...] Lymph 23.3 % Low 25.0 - 40.0 Nobles 8.9 % High 3.0 - 8.0 Eos 1.2 % 0.0 - 7.0 Baso 0.8 % 0.0 - 2.0 %Ig 0.1 % High 0.0 - 0.0 %NRBC 0.0 % 0.0 - 0.0 #Neut 5.04 10^3/uL 2.00 - 6.90 #Lymph 1.79 10^3/uL 0.60 - 3.40 #Nobles 0.68 10^3/uL 0.00 - 0.90 #Eos 0.09 10^3/uL 0.00 - 0.70 #Baso 0.06 10^3/uL 0.00 - 0.20 #Ig 0.01 10^3/uL 0.00 - 0.10 #NRBC 0.00 10^3/uL 0.00 - 0.00 Manual Diff NOT INDICATED RBC Morph NOT INDICATED Laboratory test finding 05/06/[address] [address] [phone] Troponin T <0.01 NG/ML 0.00 - 0.10 14 Basic Metabolic Panel 05/06/[address] [address] [phone] Basic Metabolic Pane (SEE NOTE) 15 Sodium 129 mEq/L Low 134 - 153 [...] GFR >60 mL/min Non-Aa GFR >60 mL/min 16 1 COMPLETE BLOOD COUNT 2 COMPREHENSIVE METABOLIC [...] 80 and above >32 mL/min Normal 4 COMPLETE BLOOD COUNT 5 COMPREHENSIVE METABOLIC PANE L 6 Male GFR Interprentation 20-49 yrs >60 mL/min Normal 50-59 yrs >56 mL/min Normal 60-69 yrs >49 mL/min Normal 70-79yrs >42 mL/min Normal 80 and above >35 mL/min Normal Female GFR Interpretation 20-39 yrs >60 mL/min Normal 40-49 yrs >58 mL/min Normal 50-59 yrs >51 mL/min Normal 60-69 yrs >45 mL/min Normal 70-79 yrs >39 mL/min Normal 80 and above >32 mL/min Normal 7 {A1] {HB] 8 COMPLETE BLOOD COUNT 9 COMPREHENSIVE METABOLIC PANE L 10 Male GFR Interprentation 20-49 yrs >60 mL/min Normal 50-59 yrs >56 mL/min Normal 60-69 yrs >49 mL/min Normal 70-79yrs >42 mL/min Normal 80 and above >35 mL/min Normal Female GFR Interpretation 20-39 yrs >60 mL/min Normal 40-49 yrs >58 mL/min Normal 50-59 yrs >51 mL/min Normal 60-69 yrs >45 mL/min Normal 70-79 yrs >39 mL/min Normal 80 and above >32 mL/min Normal 11 TROPONIN T 0.1 ng/ml Recommended as the clinical th reshold value for Troponin T. 12 TROPONIN T 0.1 ng/ml Recommended as the clinical th reshold value for Troponin T. 13 COMPLETE BLOOD COUNT 14 TROPONIN T 0.1 ng/ml Recommended as the clinical th reshold value for Troponin T. 15 BASIC METABOLIC PANEL 16 Male GFR Interprentation 20-49 yrs >60 [...] Normal Procedures Date Code Description Status 03/21/2021 93557 Hospital Disch MGMT Completed 03/20/2021 04889 Hospital Care Low Completed 03/19/2021 92907 Hospital Care Low Completed 03/18/2021 09609 Hospital Care Low Completed 03/17/2021 23874 Hospital Care Moderate Completed 03/16/2021 25355 Hospital Care Moderate Completed 03/15/2021 88781 Hospital Care Moderate Completed 03/14/2021 73438 Hospital Care Moderate Completed 03/13/2021 07513 Hospital Care Initial Level 2 Co mpleted 01/10/2021 24427 Hospital Disch MGMT Completed 01/09/2021 88545 Hospital Care Moderate Completed 01/08/2021 27670 Hospital Care Initial Level 2 Co mpleted [...] R55 Syncope and collapse Delaney Karissa lay, COTTON EXPERT 03/18/2021 G45.9 Transient cerebral ischemic arnold ck, unspecified Delaney Katie, COTTON EXPERT 03/18/2021 E11.9 Type 2 diabetes mellitus without complications Delaney Wilson, EDDIE 03/18/2021 R26.9 Unspecified abnormalities of gai t and mobility Delaney Wilson, COTTON EXPERT 03/17/2021 R55 Syncope and collapse Delaney Karissa lay, COTTON EXPERT 03/17/2021 G45.9 Transient cerebral ischemic arnold ck, unspecified Delaney Wilson, COTTON EXPERT 03/17/2021 E11.9 Type 2 diabetes mellitus without complications Delaney Wilson, COTTON EXPERT 03/17/2021 R26.9 Unspecified abnormalities of gai t and mobility Delaney Wilson, COTTON EXPERT 03/16/2021 R55 Syncope and collapse Paul garcía [...] 03/13/2021 R55 Syncope and collapse Delaney lay, COTTON EXPERT 03/13/2021 G45.9 Transient cerebral ischemic arnold ck, unspecified Delaney Wilson, EDDIE 03/13/2021 E11.9 Type 2 diabetes mellitus without complications Delaney Wilson, EDDIE 03/13/2021 R26.9 Unspecified abnormalities of gai t and mobility Delaney Wilson, COTTON EXPERT 01/10/2021 I44.0 Atrioventricular block, first Cale M.D., [...] E11.9 Type 2 diabetes mellitus without complications aPul Rushing M.D[facility]
--- OUTSIDE RECORDS SUMMARY | 2021-06-14 13:21 | CCD | Continuity of Care Document ---
Author Organization Unknown Address Unknown Phone Unavailable Care Team Providers Care Fire Official Name Role Phone [facility]UL [facility] AUTM [phone] Social History Type Date Description Comments Sex [...] H/L Range Note Comprehensive Metabolic Panel 05/10/2021 [facility] [address] [place] [address] [phone] Comprehensive Metabo (SEE NOTE) 1 Sodium 131 [...] >60 mL/min 2 CBC W/Automated Diff 05/10/[address] [phone] CBC W/Automated Diff (SEE NOTE) 3 WBC [...] 80.0 Lymph 31.6 % 25.0 - 40.0 [place] 11.2 % High 3.0 - 8.0 Eos 3.7 % 0.0 - 7.0 Baso 1.1 % 0.0 - 2.0 %Ig 0.2 % High 0.0 - 0.0 %NRBC 0.0 % 0.0 - 0.0 #Neut 2.84 10^3/uL 2.00 - 6.90 #Lymph 1.72 10^3/uL 0.60 - 3.40 #[place] 0.61 10^3/uL 0.00 - 0.90 #Eos 0.20 10^3/uL 0.00 - 0.70 #Baso 0.06 10^3/uL 0.00 - 0.20 #Ig 0.01 10^3/uL 0.00 - 0.10 #NRBC 0.00 10^3/uL 0.00 - 0.00 Manual Diff NOT INDICATED RBC Morph NOT INDICATED Laboratory test finding 05/09/2021 [place] [address] [phone] Troponin T <0.01 NG/ML 0.00 - 0.10 4 Laboratory test finding 05/09/2021 [place] [address] [phone] Troponin T <0.01 NG/ML 0.00 - 0.10 5 CBC W/Automated Diff 05/09/2021 [place] [address] [phone] CBC W/Automated Diff (SEE NOTE) 6 WBC [...] 80.0 Lymph 34.1 % 25.0 - 40.0 [place] 10.4 % High 3.0 - 8.0 Eos 3.9 % 0.0 - 7.0 Baso 0.9 % 0.0 - 2.0 %Ig 0.4 % High 0.0 - 0.0 %NRBC 0.0 % 0.0 - 0.0 #Neut 2.87 10^3/uL 2.00 - 6.90 #Lymph 1.94 10^3/uL 0.60 - 3.40 #[place] 0.59 10^3/uL 0.00 - 0.90 #Eos 0.22 10^3/uL 0.00 - 0.70 #Baso 0.05 10^3/uL 0.00 - 0.20 #Ig 0.02 10^3/uL 0.00 - 0.10 #NRBC 0.00 10^3/uL 0.00 - 0.00 Manual Diff NOT INDICATED RBC Morph NOT INDICATED Comprehensive Metabolic Panel 05/09/2021 [facility] [address] [place] [phone] Comprehensive Metabo (SEE NOTE) 7 Sodium 130 [...] >60 mL/min 8 Laboratory test finding 05/09/2021 [facility] [address] [place] [address] [phone] Magnesium Serum 1.7 mg/dL 1.7 - 2.2 Troponin T <0.01 NG/ML 0.00 - 0.10 9 Comprehensive Metabolic Panel 05/08/2021 [facility] [address] [place] [phone] Comprehensive Metabo (SEE NOTE) 10 Sodium 131 [...] >60 mL/min 11 Laboratory test finding 05/08/[address] [phone] Hgba1c 8.2 % High 4.4 - 6.1 12 CBC W/Automated Diff 05/08/[address] [address] [phone] CBC W/Automated Diff (SEE NOTE) 13 WBC [...] 80.0 Lymph 26.3 % 25.0 - 40.0 [place] 9.0 % High 3.0 - 8.0 Eos 3.8 % 0.0 - 7.0 Baso 0.9 % 0.0 - 2.0 %Ig 0.4 % High 0.0 - 0.0 %NRBC 0.0 % 0.0 - 0.0 #Neut 3.33 10^3/uL 2.00 - 6.90 #Lymph 1.47 10^3/uL 0.60 - 3.40 #[place] 0.50 10^3/uL 0.00 - 0.90 #Eos 0.21 10^3/uL 0.00 - 0.70 #Baso 0.05 10^3/uL 0.00 - 0.20 #Ig 0.02 10^3/uL 0.00 - 0.10 #NRBC 0.00 10^3/uL 0.00 - 0.00 Manual Diff NOT INDICATED RBC Morph NOT INDICATED CBC W/Automated Diff 05/07/[address] [phone] CBC W/Automated Diff (SEE NOTE) 14 WBC [...] 80.0 Lymph 36.4 % 25.0 - 40.0 [place] 9.3 % High 3.0 - 8.0 Eos 3.1 % 0.0 - 7.0 Baso 1.3 % 0.0 - 2.0 %Ig 0.2 % High 0.0 - 0.0 %NRBC 0.0 % 0.0 - 0.0 #Neut 2.74 10^3/uL 2.00 - 6.90 #Lymph 2.00 10^3/uL 0.60 - 3.40 #[place] 0.51 10^3/uL 0.00 - 0.90 #Eos 0.17 10^3/uL 0.00 - 0.70 #Baso 0.07 10^3/uL 0.00 - 0.20 #Ig 0.01 10^3/uL 0.00 - 0.10 #NRBC 0.00 10^3/uL 0.00 - 0.00 Manual Diff NOT INDICATED RBC Morph NOT INDICATED Comprehensive Metabolic Panel 05/07/2021 [facility] [address] [place] [address] [phone] Comprehensive Metabo (SEE NOTE) 15 Sodium 130 [...] >60 mL/min 16 Laboratory test finding 05/07/[address] [phone] Magnesium Serum 1.6 mg/dL Low 1.7 - 2.2 Troponin T <0.01 NG/ML 0.00 - 0.10 17 Laboratory test finding 05/06/[address] [address] [phone] Troponin T <0.01 NG/ML 0.00 - 0.10 18 CBC W/Automated Diff 05/06/[address] [address] [phone] CBC W/Automated Diff (SEE NOTE) 19 WBC [...] Lymph 23.3 % Low 25.0 - 40.0 [place] 8.9 % High 3.0 - 8.0 Eos 1.2 % 0.0 - 7.0 Baso 0.8 % 0.0 - 2.0 %Ig 0.1 % High 0.0 - 0.0 %NRBC 0.0 % 0.0 - 0.0 #Neut 5.04 10^3/uL 2.00 - 6.90 #Lymph 1.79 10^3/uL 0.60 - 3.40 #[place] 0.68 10^3/uL 0.00 - 0.90 #Eos 0.09 10^3/uL 0.00 - 0.70 #Baso 0.06 10^3/uL 0.00 - 0.20 #Ig 0.01 10^3/uL 0.00 - 0.10 #NRBC 0.00 10^3/uL 0.00 - 0.00 Manual Diff NOT INDICATED RBC Morph NOT INDICATED Laboratory test finding 05/06/[address] [phone] [phone] Troponin T <0.01 NG/ML 0.00 - 0.10 20 Basic Metabolic Panel 05/06/[address] [address] [phone] Basic Metabolic Pane (SEE NOTE) 21 Sodium [...] Normal Procedures Date Code Description Status 03/21/2021 30241 Hospital Disch MGMT Completed 03/20/2021 19233 Hospital Care Low Completed 03/19/2021 42256 Hospital Care Low Completed 03/18/2021 67140 Hospital Care Low Completed 03/17/2021 02001 Hospital Care Moderate Completed 03/16/2021 60789 Hospital Care Moderate Completed 03/15/2021 08924 Hospital Care Moderate Completed 03/14/2021 21424 Hospital Care Moderate Completed 03/13/2021 05961 Hospital Care Initial Level 2 Co mpleted 01/10/2021 23174 Hospital Disch MGMT Completed 01/09/2021 77912 Hospital Care Moderate Completed 01/08/2021 32120 Hospital Care Initial Level 2 Co mpleted [...] R55 Syncope and collapse Delaney Karissa lay, CUSTOMER SUCCESS INTERN 03/18/2021 G45.9 Transient cerebral ischemic arnold ck, unspecified Delaney Wilson, CUSTOMER SUCCESS INTERN 03/18/2021 E11.9 Type 2 diabetes mellitus without complications Delaney Wilson, CUSTOMER SUCCESS INTERN 03/18/2021 R26.9 Unspecified abnormalities of gai t and mobility Delaney Wilson, CUSTOMER SUCCESS INTERN 03/17/2021 R55 Syncope and collapse Delaney Karissa lay, CUSTOMER SUCCESS INTERN 03/17/2021 G45.9 Transient cerebral ischemic arnold ck, unspecified Delaney Katie, CUSTOMER SUCCESS INTERN 03/17/2021 E11.9 Type 2 diabetes mellitus without complications Delaney Wilson, CUSTOMER SUCCESS INTERN 03/17/2021 R26.9 Unspecified abnormalities of gai t and mobility Delaney Wilson, CUSTOMER SUCCESS INTERN 03/16/2021 R55 Syncope and collapse Paul garcía [...] 03/13/2021 R55 Syncope and collapse Delaney lay, CUSTOMER SUCCESS INTERN 03/13/2021 G45.9 Transient cerebral ischemic arnold ck, unspecified Delaney Wilson, CUSTOMER SUCCESS INTERN 03/13/2021 E11.9 Type 2 diabetes mellitus without complications Delaney Wilson, CUSTOMER SUCCESS INTERN 03/13/2021 R26.9 Unspecified abnormalities of gai t and mobility Delaney Wilson, CUSTOMER SUCCESS INTERN 01/10/2021 I44.0 Atrioventricular block, first Cale M.D., [...]
--- OUTSIDE RECORDS SUMMARY | 2021-06-14 13:21 | CCD | Continuity of Care Document ---
Author Organization Unknown Address Unknown Phone Unavailable Care Team Providers Care Special Education Teaching Assistant Name Role Phone PAUL R[facility]ING [facility] AUTM [phone] Social History Type Date Description Comments Sex [...] H/L Range Note Comprehensive Metabolic Panel 05/10/2021 [facility] [address] [place] [address] [phone] Comprehensive Metabo (SEE NOTE) 1 Sodium 131 [...] >60 mL/min 2 CBC W/Automated Diff 05/10/[address] [phone] CBC W/Automated Diff (SEE NOTE) 3 WBC [...] 80.0 Lymph 31.6 % 25.0 - 40.0 [place] 11.2 % High 3.0 - 8.0 Eos 3.7 % 0.0 - 7.0 Baso 1.1 % 0.0 - 2.0 %Ig 0.2 % High 0.0 - 0.0 %NRBC 0.0 % 0.0 - 0.0 #Neut 2.84 10^3/uL 2.00 - 6.90 #Lymph 1.72 10^3/uL 0.60 - 3.40 #[place] 0.61 10^3/uL 0.00 - 0.90 #Eos 0.20 10^3/uL 0.00 - 0.70 #Baso 0.06 10^3/uL 0.00 - 0.20 #Ig 0.01 10^3/uL 0.00 - 0.10 #NRBC 0.00 10^3/uL 0.00 - 0.00 Manual Diff NOT INDICATED RBC Morph NOT INDICATED Laboratory test finding 05/09/2021 [place] [address] [phone] Troponin T <0.01 NG/ML 0.00 - 0.10 4 Laboratory test finding 05/09/2021 [place] [address] [phone] Troponin T <0.01 NG/ML 0.00 - 0.10 5 CBC W/Automated Diff 05/09/2021 [place] [address] [phone] CBC W/Automated Diff (SEE NOTE) 6 WBC [...] 80.0 Lymph 34.1 % 25.0 - 40.0 [place] 10.4 % High 3.0 - 8.0 Eos 3.9 % 0.0 - 7.0 Baso 0.9 % 0.0 - 2.0 %Ig 0.4 % High 0.0 - 0.0 %NRBC 0.0 % 0.0 - 0.0 #Neut 2.87 10^3/uL 2.00 - 6.90 #Lymph 1.94 10^3/uL 0.60 - 3.40 #[place] 0.59 10^3/uL 0.00 - 0.90 #Eos 0.22 10^3/uL 0.00 - 0.70 #Baso 0.05 10^3/uL 0.00 - 0.20 #Ig 0.02 10^3/uL 0.00 - 0.10 #NRBC 0.00 10^3/uL 0.00 - 0.00 Manual Diff NOT INDICATED RBC Morph NOT INDICATED Comprehensive Metabolic Panel 05/09/2021 [facility] [address] [place] [phone] Comprehensive Metabo (SEE NOTE) 7 Sodium 130 [...] >60 mL/min 8 Laboratory test finding 05/09/2021 [facility] [address] [place] [address] [phone] Magnesium Serum 1.7 mg/dL 1.7 - 2.2 Troponin T <0.01 NG/ML 0.00 - 0.10 9 Comprehensive Metabolic Panel 05/08/2021 [facility] [address] [place] [phone] Comprehensive Metabo (SEE NOTE) 10 Sodium 131 [...] >60 mL/min 11 Laboratory test finding 05/08/[address] [phone] Hgba1c 8.2 % High 4.4 - 6.1 12 CBC W/Automated Diff 05/08/[address] [address] [phone] CBC W/Automated Diff (SEE NOTE) 13 WBC [...] 80.0 Lymph 26.3 % 25.0 - 40.0 [place] 9.0 % High 3.0 - 8.0 Eos 3.8 % 0.0 - 7.0 Baso 0.9 % 0.0 - 2.0 %Ig 0.4 % High 0.0 - 0.0 %NRBC 0.0 % 0.0 - 0.0 #Neut 3.33 10^3/uL 2.00 - 6.90 #Lymph 1.47 10^3/uL 0.60 - 3.40 #[place] 0.50 10^3/uL 0.00 - 0.90 #Eos 0.21 10^3/uL 0.00 - 0.70 #Baso 0.05 10^3/uL 0.00 - 0.20 #Ig 0.02 10^3/uL 0.00 - 0.10 #NRBC 0.00 10^3/uL 0.00 - 0.00 Manual Diff NOT INDICATED RBC Morph NOT INDICATED CBC W/Automated Diff 05/07/[address] [phone] CBC W/Automated Diff (SEE NOTE) 14 WBC [...] 80.0 Lymph 36.4 % 25.0 - 40.0 [place] 9.3 % High 3.0 - 8.0 Eos 3.1 % 0.0 - 7.0 Baso 1.3 % 0.0 - 2.0 %Ig 0.2 % High 0.0 - 0.0 %NRBC 0.0 % 0.0 - 0.0 #Neut 2.74 10^3/uL 2.00 - 6.90 #Lymph 2.00 10^3/uL 0.60 - 3.40 #[place] 0.51 10^3/uL 0.00 - 0.90 #Eos 0.17 10^3/uL 0.00 - 0.70 #Baso 0.07 10^3/uL 0.00 - 0.20 #Ig 0.01 10^3/uL 0.00 - 0.10 #NRBC 0.00 10^3/uL 0.00 - 0.00 Manual Diff NOT INDICATED RBC Morph NOT INDICATED Comprehensive Metabolic Panel 05/07/2021 [facility] [address] [place] [address] [phone] Comprehensive Metabo (SEE NOTE) 15 Sodium 130 [...] >60 mL/min 16 Laboratory test finding 05/07/[address] [phone] Magnesium Serum 1.6 mg/dL Low 1.7 - 2.2 Troponin T <0.01 NG/ML 0.00 - 0.10 17 Laboratory test finding 05/06/[address] [address] [phone] Troponin T <0.01 NG/ML 0.00 - 0.10 18 CBC W/Automated Diff 05/06/[address] [address] [phone] CBC W/Automated Diff (SEE NOTE) 19 WBC [...] Lymph 23.3 % Low 25.0 - 40.0 [place] 8.9 % High 3.0 - 8.0 Eos 1.2 % 0.0 - 7.0 Baso 0.8 % 0.0 - 2.0 %Ig 0.1 % High 0.0 - 0.0 %NRBC 0.0 % 0.0 - 0.0 #Neut 5.04 10^3/uL 2.00 - 6.90 #Lymph 1.79 10^3/uL 0.60 - 3.40 #[place] 0.68 10^3/uL 0.00 - 0.90 #Eos 0.09 10^3/uL 0.00 - 0.70 #Baso 0.06 10^3/uL 0.00 - 0.20 #Ig 0.01 10^3/uL 0.00 - 0.10 #NRBC 0.00 10^3/uL 0.00 - 0.00 Manual Diff NOT INDICATED RBC Morph NOT INDICATED Laboratory test finding 05/06/[address] [phone] Troponin T <0.01 NG/ML 0.00 - 0.10 20 Basic Metabolic Panel 05/06/[address] [address] [phone] Basic Metabolic Pane (SEE NOTE) 21 Sodium [...] Normal Procedures Date Code Description Status 03/21/2021 39210 Hospital Disch MGMT Completed 03/20/2021 92212 Hospital Care Low Completed 03/19/2021 27572 Hospital Care Low Completed 03/18/2021 12206 Hospital Care Low Completed 03/17/2021 10039 Hospital Care Moderate Completed 03/16/2021 25239 Hospital Care Moderate Completed 03/15/2021 08273 Hospital Care Moderate Completed 03/14/2021 08932 Hospital Care Moderate Completed 03/13/2021 82723 Hospital Care Initial Level 2 Co mpleted 01/10/2021 89225 Hospital Disch MGMT Completed 01/09/2021 31956 Hospital Care Moderate Completed 01/08/2021 02835 Hospital Care Initial Level 2 Co mpleted [...] R55 Syncope and collapse Delaney Karissa lay, MACHINE TOOL REBUILDER 03/18/2021 G45.9 Transient cerebral ischemic arnold ck, unspecified Delaney Wilson, MACHINE TOOL REBUILDER 03/18/2021 E11.9 Type 2 diabetes mellitus without complications Delaney Wilson, MACHINE TOOL REBUILDER 03/18/2021 R26.9 Unspecified abnormalities of gai t and mobility Delaney Wilson, MACHINE TOOL REBUILDER 03/17/2021 R55 Syncope and collapse Delaney Karissa lay, MACHINE TOOL REBUILDER 03/17/2021 G45.9 Transient cerebral ischemic arnold ck, unspecified Delaney Katie, MACHINE TOOL REBUILDER 03/17/2021 E11.9 Type 2 diabetes mellitus without complications Delaney Wilson, MACHINE TOOL REBUILDER 03/17/2021 R26.9 Unspecified abnormalities of gai t and mobility Delaney Wilson, MACHINE TOOL REBUILDER 03/16/2021 R55 Syncope and collapse Paul garcía [...] 03/13/2021 R55 Syncope and collapse Delaney lay, MACHINE TOOL REBUILDER 03/13/2021 G45.9 Transient cerebral ischemic arnold ck, unspecified Delaney Wilson, MACHINE TOOL REBUILDER 03/13/2021 E11.9 Type 2 diabetes mellitus without complications Delaney Wilson, MACHINE TOOL REBUILDER 03/13/2021 R26.9 Unspecified abnormalities of gai t and mobility Delaney Wilson, MACHINE TOOL REBUILDER 01/10/2021 I44.0 Atrioventricular block, first Cale M.D., [...]
--- OUTSIDE RECORDS SUMMARY | 2021-06-14 13:21 | CCD | Continuity of Care Document ---
Author Organization Unknown Address Unknown Phone Unavailable Care Team Providers Care Material Handler 2Nd Shift Name Role Phone PAUL RUSHING M[facility] AUTM [phone] Social History Type Date Description Comments Sex [...] H/L Range Note CBC W/Automated Diff 05/09/[address] [address] [phone] CBC W/Automated Diff (SEE NOTE) 1 WBC [...] 80.0 Lymph 34.1 % 25.0 - 40.0 [place] 10.4 % High 3.0 - 8.0 Eos 3.9 % 0.0 - 7.0 Baso 0.9 % 0.0 - 2.0 %Ig 0.4 % High 0.0 - 0.0 %NRBC 0.0 % 0.0 - 0.0 #Neut 2.87 10^3/uL 2.00 - 6.90 #Lymph 1.94 10^3/uL 0.60 - 3.40 #[place] 0.59 10^3/uL 0.00 - 0.90 #Eos 0.22 10^3/uL 0.00 - 0.70 #Baso 0.05 10^3/uL 0.00 - 0.20 #Ig 0.02 10^3/uL 0.00 - 0.10 #NRBC 0.00 10^3/uL 0.00 - 0.00 Manual Diff NOT INDICATED RBC Morph NOT INDICATED Comprehensive Metabolic Panel 05/09/2021 [facility] [address] [place], [place] [phone] Comprehensive Metabo (SEE NOTE) 2 Sodium 130 [...] >60 mL/min 3 Laboratory test finding 05/09/[address] [phone] Magnesium Serum 1.7 mg/dL 1.7 - 2.2 Troponin T <0.01 NG/ML 0.00 - 0.10 4 CBC W/Automated Diff 05/08/[address] [address] [phone] CBC W/Automated Diff (SEE NOTE) 5 WBC 5.6 10^3/uL 4.2 - 11.0 RBC [...] 80.0 Lymph 26.3 % 25.0 - 40.0 [place] 9.0 % High 3.0 - 8.0 Eos 3.8 % 0.0 - 7.0 Baso 0.9 % 0.0 - 2.0 %Ig 0.4 % High 0.0 - 0.0 %NRBC 0.0 % 0.0 - 0.0 #Neut 3.33 10^3/uL 2.00 - 6.90 #Lymph 1.47 10^3/uL 0.60 - 3.40 #[place] 0.50 10^3/uL 0.00 - 0.90 #Eos 0.21 10^3/uL 0.00 - 0.70 #Baso 0.05 10^3/uL 0.00 - 0.20 #Ig 0.02 10^3/uL 0.00 - 0.10 #NRBC 0.00 10^3/uL 0.00 - 0.00 Manual Diff NOT INDICATED RBC Morph NOT INDICATED Comprehensive Metabolic Panel 05/08/2021 [facility] [address] [place] [phone] Comprehensive Metabo (SEE NOTE) 6 Sodium 131 mEq/L Low 134 - 153 [...] GFR >60 mL/min 7 Laboratory test finding 05/08/[address] [address] [phone] Hgba1c 8.2 % High 4.4 - 6.1 8 CBC W/Automated Diff 05/07/[address] [address] [phone] CBC W/Automated Diff (SEE NOTE) 9 WBC 5.5 10^3/uL 4.2 - 11.0 RBC [...] 80.0 Lymph 36.4 % 25.0 - 40.0 [place] 9.3 % High 3.0 - 8.0 Eos 3.1 % 0.0 - 7.0 Baso 1.3 % 0.0 - 2.0 %Ig 0.2 % High 0.0 - 0.0 %NRBC 0.0 % 0.0 - 0.0 #Neut 2.74 10^3/uL 2.00 - 6.90 #Lymph 2.00 10^3/uL 0.60 - 3.40 #[place] 0.51 10^3/uL 0.00 - 0.90 #Eos 0.17 10^3/uL 0.00 - 0.70 #Baso 0.07 10^3/uL 0.00 - 0.20 #Ig 0.01 10^3/uL 0.00 - 0.10 #NRBC 0.00 10^3/uL 0.00 - 0.00 Manual Diff NOT INDICATED RBC Morph NOT INDICATED Comprehensive Metabolic Panel 05/07/2021 [facility] [address] [place] [phone] Comprehensive Metabo (SEE NOTE) 10 Sodium 130 mEq/L Low 134 - 153 [...] GFR >60 mL/min 11 Laboratory test finding 05/07/2021 [place] [address] [phone] Magnesium Serum 1.6 mg/dL Low 1.7 - 2.2 Troponin T <0.01 NG/ML 0.00 - 0.10 12 Laboratory test finding 05/06/[address] [address] [phone] Troponin T <0.01 NG/ML 0.00 - 0.10 13 CBC W/Automated Diff 05/06/2021 [place] [address] [phone] CBC W/Automated Diff (SEE NOTE) 14 WBC 7.7 10^3/uL 4.2 - 11.0 RBC [...] Lymph 23.3 % Low 25.0 - 40.0 [place] 8.9 % High 3.0 - 8.0 Eos 1.2 % 0.0 - 7.0 Baso 0.8 % 0.0 - 2.0 %Ig 0.1 % High 0.0 - 0.0 %NRBC 0.0 % 0.0 - 0.0 #Neut 5.04 10^3/uL 2.00 - 6.90 #Lymph 1.79 10^3/uL 0.60 - 3.40 #Thomas 0.68 10^3/uL 0.00 - 0.90 #Eos 0.09 10^3/uL 0.00 - 0.70 #Baso 0.06 10^3/uL 0.00 - 0.20 #Ig 0.01 10^3/uL 0.00 - 0.10 #NRBC 0.00 10^3/uL 0.00 - 0.00 Manual Diff NOT INDICATED RBC Morph NOT INDICATED Laboratory test finding 05/06/[address] [phone] Troponin T <0.01 NG/ML 0.00 - 0.10 15 Basic Metabolic Panel 05/06/[address] [phone] Basic Metabolic Pane (SEE NOTE) 16 Sodium 129 mEq/L Low 134 - 153 [...] GFR >60 mL/min Non-Aa GFR >60 mL/min 17 1 COMPLETE BLOOD COUNT 2 COMPREHENSIVE METABOLIC [...] th reshold value for Troponin T. 5 COMPLETE BLOOD COUNT 6 COMPREHENSIVE METABOLIC [...] 80 and above >32 mL/min Normal 8 {A1] {HB] 9 COMPLETE BLOOD COUNT 10 COMPREHENSIVE METABOLIC PANE L 11 Male [...] 80 and above >32 mL/min Normal 12 TROPONIN T 0.1 ng/ml Recommended as the clinical th reshold value for Troponin T. 13 TROPONIN T 0.1 ng/ml Recommended as the clinical th reshold value for Troponin T. 14 COMPLETE BLOOD COUNT 15 TROPONIN T 0.1 ng/ml Recommended as the clinical th reshold value for Troponin T. 16 BASIC METABOLIC PANEL 17 Male GFR Interprentation 20-49 yrs >60 mL/min [...] Normal Procedures Date Code Description Status 03/21/2021 01391 Hospital Disch MGMT Completed 03/20/2021 24386 Hospital Care Low Completed 03/19/2021 28417 Hospital Care Low Completed 03/18/2021 07889 Hospital Care Low Completed 03/17/2021 38405 Hospital Care Moderate Completed 03/16/2021 28184 Hospital Care Moderate Completed 03/15/2021 89000 Hospital Care Moderate Completed 03/14/2021 74440 Hospital Care Moderate Completed 03/13/2021 84424 Hospital Care Initial Level 2 Co mpleted 01/10/2021 66112 Hospital Disch MGMT Completed 01/09/2021 49149 Hospital Care Moderate Completed 01/08/2021 33089 Hospital Care Initial Level 2 Co mpleted [...] P.C. 03/18/2021 R55 Syncope and collapse Delaney lay, EDDIE 03/18/2021 G45.9 Transient cerebral ischemic arnold ck, unspecified Delaney Wilson, EDDIE 03/18/2021 E11.9 Type 2 diabetes mellitus without complications Delaney Wilson, EDDIE 03/18/2021 R26.9 Unspecified abnormalities of gai t and mobility Delaney Wilson, HEMATOLOGY SUPERVISOR 03/17/2021 R55 Syncope and collapse Delaney Karissa lay, HEMATOLOGY SUPERVISOR 03/17/2021 G45.9 Transient cerebral ischemic arnold ck, unspecified Delaney Wilson, HEMATOLOGY SUPERVISOR 03/17/2021 E11.9 Type 2 diabetes mellitus without complications Delaney Wilson, HEMATOLOGY SUPERVISOR 03/17/2021 R26.9 Unspecified abnormalities of gai t and mobility Delaney Wilson, HEMATOLOGY SUPERVISOR 03/16/2021 R55 Syncope and collapse Paul garcía [...] 03/13/2021 R55 Syncope and collapse Delaney lay, HEMATOLOGY SUPERVISOR 03/13/2021 G45.9 Transient cerebral ischemic arnold ck, unspecified Delaney Wilson, HEMATOLOGY SUPERVISOR 03/13/2021 E11.9 Type 2 diabetes mellitus without complications Delaney Wilson, HEMATOLOGY SUPERVISOR 03/13/2021 R26.9 Unspecified abnormalities of gai t and mobility Delaney Wilson, HEMATOLOGY SUPERVISOR 01/10/2021 I44.0 Atrioventricular block, first Cale M.D., [...]
--- OUTSIDE RECORDS SUMMARY | 2021-06-14 13:22 | CCD | Continuity of Care Document ---
Author Organization Unknown Address Unknown Phone Unavailable Care Team Providers Care Buggy Ladle Tender Name Role Phone [facility] AUTM [phone] Social History Type Date Description Comments Sex [...] H/L Range Note CBC W/Automated Diff 05/08/[address] [address] [phone] CBC W/Automated Diff (SEE NOTE) 1 WBC [...] 80.0 Lymph 26.3 % 25.0 - 40.0 [place] 9.0 % High 3.0 - 8.0 Eos 3.8 % 0.0 - 7.0 Baso 0.9 % 0.0 - 2.0 %Ig 0.4 % High 0.0 - 0.0 %NRBC 0.0 % 0.0 - 0.0 #Neut 3.33 10^3/uL 2.00 - 6.90 #Lymph 1.47 10^3/uL 0.60 - 3.40 #[place] 0.50 10^3/uL 0.00 - 0.90 #Eos 0.21 10^3/uL 0.00 - 0.70 #Baso 0.05 10^3/uL 0.00 - 0.20 #Ig 0.02 10^3/uL 0.00 - 0.10 #NRBC 0.00 10^3/uL 0.00 - 0.00 Manual Diff NOT INDICATED RBC Morph NOT INDICATED Comprehensive Metabolic Panel 05/08/2021 [facility] [address], [place] [id number] [phone] Comprehensive Metabo (SEE NOTE) 2 Sodium 131 [...] >60 mL/min 3 Laboratory test finding 05/08/[address] [phone] Hgba1c 8.2 % High 4.4 - 6.1 4 CBC W/Automated Diff 05/07/[address] [address] [phone] CBC W/Automated Diff (SEE NOTE) 5 WBC [...] 80.0 Lymph 36.4 % 25.0 - 40.0 [place] 9.3 % High 3.0 - 8.0 Eos 3.1 % 0.0 - 7.0 Baso 1.3 % 0.0 - 2.0 %Ig 0.2 % High 0.0 - 0.0 %NRBC 0.0 % 0.0 - 0.0 #Neut 2.74 10^3/uL 2.00 - 6.90 #Lymph 2.00 10^3/uL 0.60 - 3.40 #[place] 0.51 10^3/uL 0.00 - 0.90 #Eos 0.17 10^3/uL 0.00 - 0.70 #Baso 0.07 10^3/uL 0.00 - 0.20 #Ig 0.01 10^3/uL 0.00 - 0.10 #NRBC 0.00 10^3/uL 0.00 - 0.00 Manual Diff NOT INDICATED RBC Morph NOT INDICATED Comprehensive Metabolic Panel 05/07/2021 [facility] [address] [place] [phone] Comprehensive Metabo (SEE NOTE) 6 Sodium 130 [...] >60 mL/min 7 Laboratory test finding 05/07/[address] [address] [phone] Magnesium Serum 1.6 mg/dL Low 1.7 - 2.2 Troponin T <0.01 NG/ML 0.00 - 0.10 8 Laboratory test finding 05/06/[address] [address] [phone] Troponin T <0.01 NG/ML 0.00 - 0.10 9 CBC W/Automated Diff 05/06/[address] [address] [phone] CBC W/Automated Diff (SEE NOTE) 10 WBC [...] Lymph 23.3 % Low 25.0 - 40.0 [place] 8.9 % High 3.0 - 8.0 Eos 1.2 % 0.0 - 7.0 Baso 0.8 % 0.0 - 2.0 %Ig 0.1 % High 0.0 - 0.0 %NRBC 0.0 % 0.0 - 0.0 #Neut 5.04 10^3/uL 2.00 - 6.90 #Lymph 1.79 10^3/uL 0.60 - 3.40 #[place] 0.68 10^3/uL 0.00 - 0.90 #Eos 0.09 10^3/uL 0.00 - 0.70 #Baso 0.06 10^3/uL 0.00 - 0.20 #Ig 0.01 10^3/uL 0.00 - 0.10 #NRBC 0.00 10^3/uL 0.00 - 0.00 Manual Diff NOT INDICATED RBC Morph NOT INDICATED Laboratory test finding 05/06/[address] [address] [phone] Troponin T <0.01 NG/ML 0.00 - 0.10 11 Basic Metabolic Panel 05/06/[address] [address] [phone] Basic Metabolic Pane (SEE NOTE) 12 Sodium [...] Normal Procedures Date Code Description Status 03/21/2021 57162 Hospital Disch MGMT Completed 03/20/2021 52989 Hospital Care Low Completed 03/19/2021 43613 Hospital Care Low Completed 03/18/2021 05874 Hospital Care Low Completed 03/17/202181771 Hospital Care Moderate Completed 03/16/2021 01779 Hospital Care Moderate Completed 03/15/2021 72787 Hospital Care Moderate Completed 03/14/2021 22421 Hospital Care Moderate Completed 03/13/2021 38729 Hospital Care Initial Level 2 Co mpleted 01/10/2021 71041 Hospital Disch MGMT Completed 01/09/2021 11396 Hospital Care Moderate Completed 01/08/2021 60090 Hospital Care Initial Level 2 Co mpleted [...] R55 Syncope and collapse Delaney Karissa lay, COMB FIXER 03/18/2021 G45.9 Transient cerebral ischemic arnold ck, unspecified Delaney Wilson, COMB FIXER 03/18/2021 E11.9 Type 2 diabetes mellitus without complications Delaneymell Wilson, COMB FIXER 03/18/2021 R26.9 Unspecified abnormalities of gai t and mobility Delaney Wilson, COMB FIXER 03/17/2021 R55 Syncope and collapse Delaney Karissa lay, COMB FIXER 03/17/2021 G45.9 Transient cerebral ischemic arnold ck, unspecified Delaney Katie, COMB FIXER 03/17/2021 E11.9 Type 2 diabetes mellitus without complications Delaneymell Wilson, COMB FIXER 03/17/2021 R26.9 Unspecified abnormalities of gai t and mobility Delaney Wilson, COMB FIXER 03/16/2021 R55 Syncope and collapse Paul garcía [...] R55 Syncope and collapse Delaney Karissa lay, COMB FIXER 03/13/2021 G45.9 Transient cerebral ischemic arnold ck, unspecified Delaney Katie, COMB FIXER 03/13/2021 E11.9 Type 2 diabetes mellitus without complications Delaney Wilson, COMB FIXER 03/13/2021 R26.9 Unspecified abnormalities of gai t and mobility Delaney Wilson, COMB FIXER 01/10/2021 I44.0 Atrioventricular block, first Cale M.D., [...]
--- OUTSIDE RECORDS SUMMARY | 2021-06-14 13:22 | CCD | Continuity of Care Document ---
Author Organization Unknown Address Unknown Phone Unavailable Care Team Providers Care Cutter Operator Tile Name Role Phone [facility] AUTM [phone] Social History Type Date Description Comments Sex [...] Result H/L Range Note CBC W/Automated Diff 05/07/[address] [address] [phone] CBC W/Automated Diff (SEE NOTE) 1 WBC 5.5 10^3/uL 4.2 - 11.0 RBC [...] 80.0 Lymph 36.4 % 25.0 - 40.0 [place] 9.3 % High 3.0 - 8.0 Eos 3.1 % 0.0 - 7.0 Baso 1.3 % 0.0 - 2.0 %Ig 0.2 % High 0.0 - 0.0 %NRBC 0.0 % 0.0 - 0.0 #Neut 2.74 10^3/uL 2.00 - 6.90 #Lymph 2.00 10^3/uL 0.60 - 3.40 #[place] 0.51 10^3/uL 0.00 - 0.90 #Eos 0.17 10^3/uL 0.00 - 0.70 #Baso 0.07 10^3/uL 0.00 - 0.20 #Ig 0.01 10^3/uL 0.00 - 0.10 #NRBC 0.00 10^3/uL 0.00 - 0.00 Manual Diff NOT INDICATED RBC Morph NOT INDICATED Comprehensive Metabolic Panel 05/07/2021 [facility] [address] [place], [place] [id number] [phone] Comprehensive Metabo (SEE NOTE) 2 Sodium 130 [...] GFR >60 mL/min 3 Laboratory test finding 05/07/[address] [address] [phone] Magnesium Serum 1.6 mg/dL Low 1.7 - 2.2 Troponin T <0.01 NG/ML 0.00 - 0.10 4 Laboratory test finding 05/06/[address] [address] [phone] Troponin T <0.01 NG/ML 0.00 - 0.10 5 CBC W/Automated Diff 05/06/[address] [address] [phone] CBC W/Automated Diff (SEE NOTE) 6 WBC 7.7 10^3/uL 4.2 - 11.0 RBC [...] Lymph 23.3 % Low 25.0 - 40.0 [place] 8.9 % High 3.0 - 8.0 Eos 1.2 % 0.0 - 7.0 Baso 0.8 % 0.0 - 2.0 %Ig 0.1 % High 0.0 - 0.0 %NRBC 0.0 % 0.0 - 0.0 #Neut 5.04 10^3/uL 2.00 - 6.90 #Lymph 1.79 10^3/uL 0.60 - 3.40 #[place] 0.68 10^3/uL 0.00 - 0.90 #Eos 0.09 10^3/uL 0.00 - 0.70 #Baso 0.06 10^3/uL 0.00 - 0.20 #Ig 0.01 10^3/uL 0.00 - 0.10 #NRBC 0.00 10^3/uL 0.00 - 0.00 Manual Diff NOT INDICATED RBC Morph NOT INDICATED Laboratory test finding 05/06/[address] [address] [phone] Troponin T <0.01 NG/ML 0.00 - 0.10 7 Basic Metabolic Panel 05/06/[address] [address] [phone] Basic Metabolic Pane (SEE NOTE) 8 Sodium 129 mEq/L Low 134 - 153 [...] GFR >60 mL/min Non-Aa GFR >60 mL/min 9 1 COMPLETE BLOOD COUNT 2 COMPREHENSIVE METABOLIC [...] Troponin T. 6 COMPLETE BLOOD COUNT 7 TROPONIN T 0.1 ng/ml Recommended as the clinical th reshold value for Troponin T. 8 BASIC METABOLIC PANEL 9 Male GFR Interprentation 20-49 yrs >60 mL/min [...] Normal Procedures Date Code Description Status 03/21/2021 04915 Hospital Disch MGMT Completed 03/20/2021 39328 Hospital Care Low Completed 03/19/2021 90546 Hospital Care Low Completed 03/18/2021 06026 Hospital Care Low Completed 03/17/2021 41147 Hospital Care Moderate Completed 03/16/2021 67534 Hospital Care Moderate Completed 03/15/2021 51081 Hospital Care Moderate Completed 03/14/2021 20442 Hospital Care Moderate Completed 03/13/2021 14627 Hospital Care Initial Level 2 Co mpleted 01/10/2021 92932 Hospital Disch MGMT Completed 01/09/2021 45248 Hospital Care Moderate Completed 01/08/2021 66290 Hospital Care Initial Level 2 Co mpleted [...] P.C. 03/20/2021 R55 Syncope and collapse Paul garcaí M.D., P.C. 03/20/2021 G45.9 Transient cerebral ischemic [...] 03/18/2021 R55 Syncope and collapse Delaney Karissa longan, NURSE AIDE 03/18/2021 G45.9 Transient cerebral ischemic arnold ck, unspecified Delaney Valenteman, NURSE AIDE 03/18/2021 E11.9 Type 2 diabetes mellitus without complications Delaney Katie, NURSE AIDE 03/18/2021 R26.9 Unspecified abnormalities of gai t and mobility Delaney Katie, NURSE AIDE 03/17/2021 R55 Syncope and collapse Delaney Kircarlin hman, NURSE AIDE 03/17/2021 G45.9 Transient cerebral ischemic arnold ck, unspecified Delaney Valenteman, NURSE AIDE 03/17/2021 E11.9 Type 2 diabetes mellitus without complications Delaney Katie, NURSE AIDE 03/17/2021 R26.9 Unspecified abnormalities of gai t and mobility Delaney Wilson, NURSE AIDE 03/16/2021 R55 Syncope and collapse Paul garcía [...] 03/13/2021 R55 Syncope and collapse Delaneymell lay, NURSE AIDE 03/13/2021 G45.9 Transient cerebral ischemic arnold ck, unspecified Delaney Katie, NURSE AIDE 03/13/2021 E11.9 Type 2 diabetes mellitus without complications Delaney Wilson, NURSE AIDE 03/13/2021 R26.9 Unspecified abnormalities of gai t and mobility Delaney Wilson, NURSE AIDE 01/10/2021 I44.0 Atrioventricular block, first Cale M.D[facility] 01/10/2021 I10 Essential (primary) hypertension Paul Rushing [facility] 01/10/2021 E11.9 Type 2 diabetes mellitus without complications Paul [facility]ushing [facility] 01/09/2021 I44.0 Atrioventricular block, first Cale M.D[facility] 01/09/2021 I10 Essential (primary) hypertension Paul [facility]ushing [facility] 01/09/2021 E11.9 Type 2 diabetes mellitus without complications Paul [facility]ushing [facility] 01/08/2021 I44.0 Atrioventricular block, first de gree Paul [facility]ushing [facility] 01/08/2021 I10 Essential (primary) hypertension Paul [facility] 01/08/2021 E11.9 Type 2 diabetes mellitus without complications Paul [facility]ushing [facility] Plan of Treatment Future Appointment(s):* 05/08/2021 2:00 pm - [facility] at [facility]
--- OUTSIDE RECORDS SUMMARY | 2021-06-14 13:22 | CCD ---
Continuity of Care Document (CCD) Created on: 05/07/2021 Magdy Givens External Reference #: [id number] : [id number] Sex: Male Author Organization Unknown Address Unknown Phone Unavailable Care Team Providers Care Embedded Software Programmer Name Role Phone PAUL [facility] AUTM [phone] Social History Type Date Description Comments Sex [...] H/L Range Note CBC W/Automated Diff 05/07/[address] [address] [phone] CBC W/Automated Diff (SEE NOTE) 1 WBC [...] 80.0 Lymph 36.4 % 25.0 - 40.0 [place] 9.3 % High 3.0 - 8.0 Eos 3.1 % 0.0 - 7.0 Baso 1.3 % 0.0 - 2.0 %Ig 0.2 % High 0.0 - 0.0 %NRBC 0.0 % 0.0 - 0.0 #Neut 2.74 10^3/uL 2.00 - 6.90 #Lymph 2.00 10^3/uL 0.60 - 3.40 #[place] 0.51 10^3/uL 0.00 - 0.90 #Eos 0.17 10^3/uL 0.00 - 0.70 #Baso 0.07 10^3/uL 0.00 - 0.20 #Ig 0.01 10^3/uL 0.00 - 0.10 #NRBC 0.00 10^3/uL 0.00 - 0.00 Manual Diff NOT INDICATED RBC Morph NOT INDICATED Comprehensive Metabolic Panel 05/07/2021 [facility] [address] [place], [place] [id number] [phone] Comprehensive Metabo (SEE NOTE) 2 Sodium 130 [...] >60 mL/min 3 Laboratory test finding 05/07/[address] [address] [phone] Magnesium Serum 1.6 mg/dL Low 1.7 - 2.2 Troponin T <0.01 NG/ML 0.00 - 0.10 4 Laboratory test finding 05/06/[address] [address] [phone] Troponin T <0.01 NG/ML 0.00 - 0.10 5 CBC W/Automated Diff 05/06/[address] [address] [phone] CBC W/Automated Diff (SEE NOTE) 6 WBC [...] Lymph 23.3 % Low 25.0 - 40.0 [place] 8.9 % High 3.0 - 8.0 Eos 1.2 % 0.0 - 7.0 Baso 0.8 % 0.0 - 2.0 %Ig 0.1 % High 0.0 - 0.0 %NRBC 0.0 % 0.0 - 0.0 #Neut 5.04 10^3/uL 2.00 - 6.90 #Lymph 1.79 10^3/uL 0.60 - 3.40 #[place] 0.68 10^3/uL 0.00 - 0.90 #Eos 0.09 10^3/uL 0.00 - 0.70 #Baso 0.06 10^3/uL 0.00 - 0.20 #Ig 0.01 10^3/uL 0.00 - 0.10 #NRBC 0.00 10^3/uL 0.00 - 0.00 Manual Diff NOT INDICATED RBC Morph NOT INDICATED Laboratory test finding 05/06/[address] [address] [phone] Troponin T <0.01 NG/ML 0.00 - 0.10 7 Basic Metabolic Panel 05/06/[address] [address] [phone] Basic Metabolic Pane (SEE NOTE) 8 Sodium [...] Normal Procedures Date Code Description Status 03/21/2021 71094 Hospital Disch MGMT Completed 03/20/2021 46613 Hospital Care Low Completed 03/19/2021 47671 Hospital Care Low Completed 03/18/2021 77015 Hospital Care Low Completed 03/17/2021 22054 Hospital Care Moderate Completed 03/16/2021 02181 Hospital Care Moderate Completed 03/15/2021 27641 Hospital Care Moderate Completed 03/14/2021 55650 Hospital Care Moderate Completed 03/13/2021 23447 Hospital Care Initial Level 2 Co mpleted 01/10/2021 65873 Hospital Disch MGMT Completed 01/09/2021 74417 Hospital Care Moderate Completed 01/08/2021 85681 Hospital Care Initial Level 2 Co mpleted [...] R55 Syncope and collapse Delaney Karissa longan, DIRECTOR OF COMMUNICATIONS 03/18/2021 G45.9 Transient cerebral ischemic arnold ck, unspecified Delaney Valenteman, DIRECTOR OF COMMUNICATIONS 03/18/2021 E11.9 Type 2 diabetes mellitus without complications Delaney Katie, DIRECTOR OF COMMUNICATIONS 03/18/2021 R26.9 Unspecified abnormalities of gai t and mobility Delaney Katie, DIRECTOR OF COMMUNICATIONS 03/17/2021 R55 Syncope and collapse Delaney Kircarlin hman, DIRECTOR OF COMMUNICATIONS 03/17/2021 G45.9 Transient cerebral ischemic arnold ck, unspecified Delaney Valenteman, DIRECTOR OF COMMUNICATIONS 03/17/2021 E11.9 Type 2 diabetes mellitus without complications Delaney Katie, DIRECTOR OF COMMUNICATIONS 03/17/2021 R26.9 Unspecified abnormalities of gai t and mobility Delaney Wilson, DIRECTOR OF COMMUNICATIONS 03/16/2021 R55 Syncope and collapse Paul garcía [...] 03/13/2021 R55 Syncope and collapse Delaneymell lay, DIRECTOR OF COMMUNICATIONS 03/13/2021 G45.9 Transient cerebral ischemic arnold ck, unspecified Delaney Katie, DIRECTOR OF COMMUNICATIONS 03/13/2021 E11.9 Type 2 diabetes mellitus without complications Delaney Wilson, DIRECTOR OF COMMUNICATIONS 03/13/2021 R26.9 Unspecified abnormalities of gai t and mobility Delaney Wilson, DIRECTOR OF COMMUNICATIONS 01/10/2021 I44.0 Atrioventricular block, first Cale M.D., [...] pm - [facility] at [facility]
--- OUTSIDE RECORDS SUMMARY | 2021-06-14 13:22 | CCD ---
Author Organization Unknown Address [address] [place] [address] Phone [phone] Care Team Providers Care Service Supervisor Name Role Phone Sanjuanita Rolon Unavailable Unavailable Allergies Code Code System Name Reaction Severity Status Onset 7051 RxNorm Morphine Decreased Blood Pressure Mild to Moderat e Active 01/30/2021 Medications Name Status Start Date Stop Date amlodipine 10 mg tablet TAKE ONE TABLET BY MOUTH EVERY DAY Active Not available amlodipine 5 mg tablet TAKE ONE TABLET BY MOUTH EVERY DAY Active Not available atorvastatin 40 mg tablet TAKE ONE TABLET BY MOUTH EVERY DAY Active Not available metaxalone 400 mg tablet TAKE ONE TABLET BY MOUTH TWICE A DAY Active No t available metformin 500 mg tablet TAKE ONE TABLET BY MOUTH EVERY DAY Active Not available sertraline 25 mg tablet TAKE ONE TABLET BY MOUTH EVERY DAY Active Not available tamsulosin 0.4 mg capsule TAKE ONE CAPSULE BY MOUTH EVERY DAY Active Not available walker folding USE DIRECTED Active Not available Problems Name Status Onset Date Source Type II Diabetes Mellitus Uncontrolled Active 0 History Vitamin D Deficiency Active 05/12/2020 History Hypo-osmolality and or Hyponatremia Active 05/12/2020 History Hypertensive Disorder Active 05/12/2020 History Right Bundle Branch Block Active 05/12/2020 Histor y Large Prostate Active 05/12/2020 History Syncope and Collapse Active 05/12/2020 History Hyperlipidemia Active 02/09/2021 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/19/2021 Procedures Date Name Performed by Back Surgery Information not avai lable Results Lab Results Date Name Specimen Result Interpretation Description Value Range Status Address 02/09/2021 Glucose, Fingerstick, Blood Blood Glucos e: mg/dl 161 [facility] Medical: [address] [facility] 02/09/2021 Urinalysis, Dipstick, Auto Bilirubin ne g [facility] Medical: [address] [facility] Blood [address] [place] Medical: [address] [facility] Glucose [address] [facility]: [address] [facility] Ketone [address] [place] [facility]: [address] [facility] Leukocytes neg Main [place] [facility]: [address] [facility] Nitrite neg Main [facility]: [address] [facility] Ph [address] [place] Medical: [address] [facility] Protein [address] [facility] Medical: [address] [facility] Specific [place] 1.[address] [place] [facility]: [address] [facility] Urobilinogen neg Ma in [place] [facility]: [address] [facility] 02/02/2021 Glucose, Fingerstick, Blood High Bedside Glucose 251 mg/dL 83- 110 mg/dL Final [facility]: 83 0 [facility] Past Encounters 04/03/2021 Hypertensive Disorder; Hyperlipidemia Josie Sniclair PA-C: [address] [place] [address], Ph. 02/09/2021 Glycosuria; Hypertensive Disorder; Large Prostate; Type II Diabetes Mellitus Uncontrolled; Polyuria; Unable to Manage Medication Sanjuanita Rolon MD: [address] [place] [address], Ph. Social History Tobacco Smoking Status Never Smoker Vaccine List None recorded. Plan of Care Reminders Provider Appointments None recorded. Lab None recorded. Referral None recorded. Procedures None recorded. Surgeries None recorded. Imaging None recorded. Vitals Height Weight BMI Blood Pressure 76 in 237 lbs 6 oz 28.9 kg/m2 135/94 mm[Hg]
--- OUTSIDE RECORDS SUMMARY | 2021-06-14 13:25 | CCD ---
Author Author [facility] Organization [facility] Address Unknown Phone Unavailable Care Team Providers Care Automotive Drivability Technician Name Role Phone Scordo, M Josie PA Unavailable Unavailable Scordo, [...] Unavailable Scordo, M Josie PA Unavailable Unavailable AHMADITRISH PERSAUD MD Unavailable Unavailable AHMADITRISH PERSAUD MD Unavailable Unavailable AHMADITRISH PERSAUD MD Unavailable Unavailable AHMADITRISH PERSAUD MD Unavailable Unavailable AHMADITRISH PERSAUD MD Unavailable Unavailable AHMADITRISH PERSAUD MD Unavailable Unavailable AHMADITRISH PERSAUD MD Unavailable Unavailable AHMADITRISH PERSAUD MD Unavailable Unavailable AHMADITRISH PERSAUD MD Unavailable Unavailable AHMADITRISH PERSAUD MD Unavailable Unavailable AHMADITRISH PERSAUD MD Unavailable Unavailable AHMADITRISH PERSAUD MD Unavailable Unavailable AHMADITRISH PERSAUD MD Unavailable Unavailable AHMADITRISH PERSAUD MD Unavailable Unavailable AHMADITRISH PERSAUD MD Unavailable Unavailable AHMADITRISH PERSAUD MD Unavailable Unavailable AHMADITRISH PERSAUD MD Unavailable Unavailable AHMADITRISH PERSAUD MD Unavailable Unavailable AHMADITRISH PERSAUD MD Unavailable Unavailable AHMADITRISH PERSAUD MD Unavailable Unavailable AHMADITRISH PERSAUD MD Unavailable Unavailable AHMADITRISH PERSAUD MD Unavailable Unavailable AHMADITRISH PERSAUD MD Unavailable Unavailable AHMADITRISH PERSAUD MD Unavailable Unavailable AHMADITRISH PERSAUD MD Unavailable Unavailable AHMADITRISH PERSAUD MD Unavailable Unavailable AHMADITRISH PERSAUD MD Unavailable Unavailable AHMADITRISH PERSAUD MD Unavailable Unavailable AHMADITRISH PERSAUD MD Unavailable Unavailable AHMADITRISH PERSAUD MD Unavailable Unavailable AHMADITRISH PERSAUD MD Unavailable Unavailable AHMADITRISH PERSAUD MD Unavailable Unavailable AHMADITRISH PERSAUD MD Unavailable Unavailable AHMADITRISH PERSAUD MD Unavailable Unavailable AHMADITRISH PERSAUD MD Unavailable Unavailable AHMADITRISH PERSAUD MD Unavailable Unavailable AHMADITRISH PERSAUD MD Unavailable Unavailable AHMADITRISH PERSAUD MD Unavailable Unavailable AHMADI, TRISH MD Unavailable Unavailable TRISH AHMADI MD Unavailable Unavailable TRISH AHMADI MD Unavailable Unavailable TRISH AHMADI MD Unavailable Unavailable TRISH AHMADI MD Unavailable Unavailable TRISH AHMADI MD Unavailable Unavailable TRISH AHMADI MD Unavailable Unavailable AHMADITRISH PERSAUD MD Unavailable Unavailable AHMADITRISH PERSAUD MD Unavailable Unavailable TRISH AHMADI MD Unavailable Unavailable AHMADITRISH PERSAUD MD Unavailable Unavailable TRISH AHMADI MD Unavailable Unavailable TRISH AHMADI MD Unavailable Unavailable TRISH AHMADI MD Unavailable Unavailable TRISH AHMADI MD Unavailable Unavailable TRISH AHMADI MD Unavailable Unavailable TRISH AHMADI MD Unavailable Unavailable TRISH AHMADI MD Unavailable Unavailable TRISH AHMADI MD Unavailable Unavailable TRISH AHMADI MD Unavailable Unavailable TRISH AHMADI MD Unavailable Unavailable TRISH AHMADI MD Unavailable Unavailable TRISH AHMADI MD Unavailable Unavailable TRISH AHMADI MD Unavailable Unavailable TRISH AHMADI MD Unavailable Unavailable TRISH AHMADI MD Unavailable Unavailable TRISH AHMADI MD Unavailable Unavailable TRISH AHMADI MD Unavailable Unavailable TRISH AHMADI MD Unavailable Unavailable TRISH AHMADI MD Unavailable Unavailable TRISH AHMADI MD Unavailable Unavailable TRISH AHMADI MD Unavailable Unavailable Chris Barr MD Unavailable Unavailable Chris Barr MD Unavailable Unavailable Chris Barr MD Unavailable Unavailable Chris Barr MD Unavailable Unavailable Chris Barr MD Unavailable Unavailable Chris Barr MD Unavailable Unavailable Ольга, Gabriela Unavailable Unavailable Ольга, Gabriela Unavailable Unavailable Ольга, Gabriela Unavailable Unavailable Ольга, Gabriela Unavailable Unavailable Ольга, Gabriela Unavailable Unavailable Ольга, Gabriela Unavailable Unavailable Ольга, Gabriela Unavailable Unavailable Ольга, Gabriela Unavailable Unavailable Ольга, Gabriela Unavailable Unavailable Ольга, Gabriela Unavailable Unavailable Ольга, Gabriela Unavailable Unavailable Ольга, Gabriela Unavailable Unavailable Ольга, Gabriela Unavailable Unavailable Ольга, Gabriela Unavailable Unavailable Ольга, Gabriela Unavailable Unavailable Ольга, Gabriela Unavailable Unavailable Ольга, Gabriela Unavailable Unavailable Ольга, Gabriela Unavailable Unavailable Ольга, Gabriela Unavailable Unavailable Ольга, Gabriela Unavailable Unavailable Ольга, Gabriela Unavailable Unavailable Ольга, Gabriela Unavailable Unavailable Ольга, Gabriela Unavailable Unavailable Ольга, Gabriela Unavailable Unavailable Ольга, Gabriela Unavailable Unavailable CARSON MIRANDA MD Unavailable Unavailable CARSON MIRANDA MD Unavailable Unavailable CARSON MIRANDA MD Unavailable Unavailable CARSON MIRANDA MD Unavailable Unavailable CARSON MIRANDA MD Unavailable Unavailable CARSON MIRANDA MD Unavailable Unavailable CARSON MIRANDA MD Unavailable Unavailable CARSON MIRANDA MD Unavailable Unavailable CARSON MIRANDA MD Unavailable Unavailable CARSON MIRANDA MD Unavailable Unavailable CARSON MIRANDA MD Unavailable Unavailable CARSON MIRANDA MD Unavailable Unavailable CARSON MIRANDA MD Unavailable Unavailable CARSON MIRANDA MD Unavailable Unavailable CARSON MIRANDA MD Unavailable Unavailable CARSON MIRANDA MD Unavailable Unavailable CARSON MIRANDA MD Unavailable Unavailable CARSON MIRANDA MD Unavailable Unavailable CARSON MIRANDA MD Unavailable Unavailable CARSON MIRANDA MD Unavailable Unavailable CARSON MIRANDA MD Unavailable Unavailable CARSON MIRANDA MD Unavailable Unavailable ACRSON MIRANDA MD Unavailable Unavailable CARSON MIRANDA MD Unavailable Unavailable CARSON MIRANDA MD Unavailable Unavailable CARSON MIRANDA MD Unavailable Unavailable CARSON MIRANDA MD Unavailable Unavailable CARSON MIRANDA MD Unavailable Unavailable CARSON MIRANDA MD Unavailable Unavailable CARSON MIRANDA MD Unavailable Unavailable CARSON MIRANDA MD Unavailable Unavailable CARSON MIRANDA MD Unavailable Unavailable CARSON MIRANDA MD Unavailable Unavailable CARSON MIRANDA MD Unavailable Unavailable CARSON MIRANDA MD Unavailable Unavailable CARSON MIRANDA MD Unavailable Unavailable CARSON MIRANDA MD Unavailable Unavailable CARSON MIRANDA MD Unavailable Unavailable Megan, B Kody NAPKIN MACHINE OPERATOR Unavailable Unavailable Megan, B Kody [place]AP[place] MACHINE OPERATOR Unavailable Unavailable Megan, B Kody [place] MACHINE OPERATOR Unavailable Unavailable Megan, B Kody [place] MACHINE OPERATOR Unavailable Unavailable Megan, B Kody [place] MACHINE OPERATOR Unavailable Unavailable Megan, B Kody [place] MACHINE OPERATOR Unavailable Unavailable Megan, B Kody [place] MACHINE OPERATOR Unavailable Unavailable Megan, B Kody [place] MACHINE OPERATOR Unavailable Unavailable Megan, B Kody [place] MACHINE OPERATOR Unavailable Unavailable Megan, B Kody [place]AP[place] MACHINE OPERATOR Unavailable Unavailable J LUISMG PENNINGTON MD Unavailable Unavailable J LUISMG PENNINGTON MD Unavailable Unavailable MG RUSHING MD Unavailable Unavailable J LUISMG PENNINGTON MD Unavailable Unavailable J LUISMG PENNINGTON MD Unavailable Unavailable J LUIS, MAQBOOL PAUL MD Unavailable Unavailable J LUIS, MAQBOOL PAUL MD Unavailable Unavailable J LUIS, MAQBOOL PAUL MD Unavailable Unavailable J LUIS, MAQBOOL PAUL MD Unavailable Unavailable J LUIS, MAQBOOL PAUL MD Unavailable Unavailable J LUIS, MAQBOOL PAUL MD Unavailable Unavailable J LUIS, MAQBOOL PAUL MD Unavailable Unavailable J LUIS, MAQBOOL PAUL MD Unavailable Unavailable J LUIS, MAQBOOL PAUL MD Unavailable Unavailable J LUIS, MAQBOOL PAUL MD Unavailable Unavailable J LUIS, MAQBOOL PAUL MD Unavailable Unavailable J LUIS, MAQBOOL PAUL MD Unavailable Unavailable J LUIS, MAQBOOL PAUL MD Unavailable Unavailable J LUIS, MAQBOOL PAUL MD Unavailable Unavailable J LUIS, MAQBOOL PAUL MD Unavailable Unavailable J LUIS, MAQBOOL PAUL MD Unavailable Unavailable J LUIS, MAQBOOL PAUL MD Unavailable Unavailable J LUIS, MAQBOOL PAUL MD Unavailable Unavailable J LUIS, MAQBOOL PAUL MD Unavailable Unavailable J LUIS, MAQBOOL PAUL MD Unavailable Unavailable J LUIS, MAQBOOL PAUL MD Unavailable Unavailable J LUIS, MAQBOOL PAUL MD Unavailable Unavailable J LUIS, MAQBOOL PAUL MD Unavailable Unavailable J LUIS, MAQBOOL PALU MD Unavailable Unavailable J LUIS, MAQBOOL PAUL MD Unavailable Unavailable J LUIS, MAQBOOL PAUL MD Unavailable Unavailable J LUIS, MAQBOOL PAUL MD Unavailable Unavailable J LUIS, MAQBOOL PAUL MD Unavailable Unavailable J LUIS, MAQBOOL PAUL MD Unavailable Unavailable J LUIS, MAQBOOL PAUL MD Unavailable Unavailable J LUIS, MAQBOOL PAUL MD Unavailable Unavailable J LUIS, MAQBOOL PAUL MD Unavailable Unavailable J LUIS, MAQBOOL PAUL MD Unavailable Unavailable J LUIS, MAQBOOL PAUL MD Unavailable Unavailable J LUIS, MAQBOOL PAUL MD Unavailable Unavailable J LUIS, MAQBOOL PAUL MD Unavailable Unavailable J LUIS, MAQBOOL PAUL MD Unavailable Unavailable J LUIS, MAQBOOL PAUL MD Unavailable Unavailable J LUIS, MAQBOOL PAUL MD Unavailable Unavailable J LUIS, MAQBOOL PAUL MD Unavailable Unavailable J LUIS, MAQBOOL PAUL MD Unavailable Unavailable J LUIS, MAQBOOL PAUL MD Unavailable Unavailable J LUIS, MAQBOOL PAUL MD Unavailable Unavailable J LUIS, MAQBOOL PAUL MD Unavailable Unavailable J LUIS, MAQBOOL PAUL MD Unavailable Unavailable J LUIS, MAQBOOL PAUL MD Unavailable Unavailable J LUIS, MAQBOOL PAUL MD Unavailable Unavailable J LUIS, MAQBOOL PAUL MD Unavailable Unavailable J LUIS, MAQBOOL PAUL MD Unavailable Unavailable J LUIS, MAQBOOL PAUL MD Unavailable Unavailable J LUIS, MAQBOOL PAUL MD Unavailable Unavailable J LUIS, MAQBOOL PAUL MD Unavailable Unavailable J LUIS, MAQBOOL PAUL MD Unavailable Unavailable J LUIS, MAQBOOL PAUL MD Unavailable Unavailable J LUIS, MAQBOOL PAUL MD Unavailable Unavailable J LUIS, MAQBOOL PAUL MD Unavailable Unavailable J LUIS, MAQBOOL PAUL MD Unavailable Unavailable J LUIS, MAQBOOL PAUL MD Unavailable Unavailable J LUIS, MAQBOOL PAUL MD Unavailable Unavailable J LUIS, MAQBOOL PAUL MD Unavailable Unavailable J LUIS, MAQBOOL PAUL MD Unavailable Unavailable J LUIS, MAQBOOL PAUL MD Unavailable Unavailable J LUIS, MAQBOOL PAUL MD Unavailable Unavailable J LUIS, MAQBOOL PAUL MD Unavailable Unavailable J LUIS, MAQBOOL PAUL MD Unavailable Unavailable J LUIS, MAQBOOL PAUL MD Unavailable Unavailable J LUIS, MAQBOOL PAUL MD Unavailable Unavailable J LUIS, MAQBOOL PAUL MD Unavailable Unavailable J LUIS, MAQBOOL PAUL MD Unavailable Unavailable J LUIS, MAQBOOL PAUL MD Unavailable Unavailable J LUIS, MAQBOOL PAUL MD Unavailable Unavailable J LUIS, MAQBOOL PAUL MD Unavailable Unavailable J LUIS, MAQBOOL PAUL MD Unavailable Unavailable Brooklyn Sinclair Unavailable Unavailable Brooklyn Sinclair Unavailable Unavailable Brooklyn Sinclair Unavailable Unavailable Brooklyn Sinclair Unavailable Unavailable Brooklyn Sinclair Unavailable Unavailable Scordo, M Josie PA Unavailable [...] Unavailable Scordo, M Josie PA Unavailable Unavailable SUPPLE, ILIANA Unavailable Unavailable [facility] Unavailable Unavailable Maria Esther Miranda MD Unavailable Unavailable Maria Esther Miranda MD Unavailable Unavailable Maria Esther Miranda MD Unavailable Unavailable Maria Esther Miranda MD Unavailable Unavailable Maria Esther Miranda MD Unavailable Unavailable Maria Esther Miranda MD Unavailable Unavailable Maria Esther Miranda MD Unavailable Unavailable Maria Esther Miranda MD Unavailable Unavailable Maria Esther Miranda MD Unavailable Unavailable Maria Esther Miranda MD Unavailable Unavailable Maria Esther Miranda MD Unavailable Unavailable Maria Esther Miranda MD Unavailable Unavailable Maria Esther Miranda MD Unavailable Unavailable TURRIN, ROSA MARIA Unavailable Unavailable TURRIN, ROSA MARIA Unavailable Unavailable TURRIN, ROSA MARIA Unavailable Unavailable TURRIN, ROSA MARIA Unavailable Unavailable MigAlexander nicholas MD Unavailable Unavaila ble MigeedAlexander MD Unavailable Unavaila ble MigeedAlexander MD Unavailable Unavaila ble MigeedAlexander MD Unavailable Unavaila ble MigeedAlexander MD Unavailable Unavaila ble MigeedAlexander MD Unavailable Unavaila ble MigeedAlexander MD Unavailable Unavaila ble MigeedAlexander MD Unavailable Unavaila ble MigeedAlexander MD Unavailable Unavaila ble MigeedAlexander MD Unavailable Unavaila ble MigeedAlexander MD Unavailable Unavaila ble MigeedAlexander MD Unavailable Unavaila ble MigeedAlexander MD Unavailable Unavaila ble MigeedAlexander MD Unavailable Unavaila ble MigeedAlexander MD Unavailable Unavaila ble MigeedAlexander MD Unavailable Unavaila ble MigeedAlexander MD Unavailable Unavaila ble MigeedAlexander MD Unavailable Unavaila ble MigeedAlexander MD Unavailable Unavaila ble MigeedAlexander MD Unavailable Unavaila ble MigeedAlexander MD Unavailable Unavaila ble MigeedAlexander MD Unavailable Unavaila ble MigeedAlexander MD Unavailable Unavaila ble MigeedAlexander MD Unavailable Unavaila ble MigeedAlexander MD Unavailable Unavaila ble MigeedAlexander MD Unavailable Unavaila ble MigeedAlexander MD Unavailable Unavaila ble MigeedAlexander MD Unavailable Unavaila ble MigeedAlexander MD Unavailable Unavaila ble MigeedAlexander MD Unavailable Unavaila ble Alexander Pascual MD Unavailable Unavaila ble Alexander Pascual MD Unavailable Unavaila Alexander Guzman MD Unavailable Unavaila rosendo MigAlexander nicholas MD Unavailable Unavaila rosendo MigAlexander nicholas MD Unavailable Unavaila ble MigAlexander nicholas MD Unavailable Unavaila ble MigeedAlexander MD Unavailable Unavaila ble MigeedAlexander MD Unavailable Unavaila ble MigeedAlexander MD Unavailable Unavaila ble MigeedAlexander MD Unavailable Unavaila ble Alexander Pascual MD Unavailable Unavaila ble Alexander Pascual MD Unavailable Unavaila ble MigeedAlexander MD Unavailable Unavaila ble MigeedAlexander MD Unavailable Unavaila rosendo LopezeedAlexander MD Unavailable Unavaila rosendo LopezeedAlexander MD Unavailable Unavaila Alexander Guzman MD Unavailable Unavaila rosendo LopezeedAlexander MD Unavailable Unavaila Alexander Guzman MD Unavailable Unavaila ble DRAZEK, I SARA PA Unavailable Unavailable DRAZEK, [...] Unavailable DRAZEK, I SARA PA Unavailable Unavailable Re-disclosure Warning The records [...] is protected by Article 27-F of the [facility] Public Health law. If you continue you may have access to information: Regarding HIV / AIDS; Provided by facilities licensed or operated by the [facility] Office of Mental Health; or Provided by the [facility] Office for People With Developmental Disabilities. If such information is present, then the following [facility] mandated warning applies: This information has [...] law may result in a fine or longterm sentence or both. A general authorization for the release of medical or other information is NOT sufficient authorization for further disc losure. Allergies and Adverse Reactions Type Description Substance Reaction Status Data Source(s ) Food allergy MUSHROOMS MUSHROOMS [facility] Drug allergy MORPHINE MORPHINE ANAPHYLAXIS [facility] Allergy to substance Mild to Moderate Morphine Decreased Blood Pres sure [facility] ([facility]) Allergy to substance Mild to Moderate Morphine Decreased Blood Pres sure [facility] ([facility]) Allergy to substance Mild to Moderate Morphine Decreased Blood Pres sure [facility] ([facility]) Propensity to adverse reactions NO ALLERGIES ON FILE NO ALLERGIES ON FILE [facility] Propensity to adverse reactions MORPHINE AND RELATED Morphine And R elated Active [facility] Allergy to substance Allergy to substance Allergy to substance [facility] ([facility]) Family History Family Member Name Family Member Gender Family Member Status Date o f Status Description Data Source(s) Unknown Unknown Problem [facility] ([facility]) Encounters Encounter Providers Location Date Indications Data Source(s ) Outpatient Attender: TRISH Escoto riley: Chris Barr MDConsultant: PAUL RUSHING MD 05/06/2021 02:14:00 PM EDT - 05/10/2021 11:20:00 AM EDT [facility] Patient discharged. Sanjuanita Rolon MD: [address], [facility] [place] [place] [address], Ph. Attender: Sanjuanita Rolon [facility] Medical 04/23/2021 12:00:00 AM EDT [facility] ([facility]) Sanjuanita Rolon MD: [address], [facility] [place] [address], Ph. Attender: Sanjuanita Rolon [facility] Medical 04/09/2021 12:00:00 AM EDT [facility] ([facility]) Sanjuanita Rolon MD: [address], [facility] [place] [address], Ph. Attender: Sanjuanita Rolon [facility] Medical 04/09/2021 12:00:00 AM EDT [facility]) Josie Sinclair PA-C: [address], [place] [address], Ph. Attender: Josie BRINK [facility] 04/03/2021 12:00:00 AM EDT [facility] ([facility]) Josie Sinclair PA-C: [address], [facility] [place] [address], Ph. Attender: Josie BRINK [facility] 04/03/2021 12:00:00 AM EDT [facility] ([facility]) Josie Sinclair PA-C: [address], [facility] [place] [address], Ph. Attender: Josie BRINK [facility] 04/03/2021 12:00:00 AM EDT [facility] ([facility]) Inpatient Attender: PAUL Escoto riley: Kody Guzman NPAttender: Chris Barr MDConsultant: PAUL RUSHING MD 03/15/2021 09:00:00 AM E DT - 03/21/2021 11:10:00 AM EDT [facility] Patient discharged. Outpatient Attender: [facility] 03/14/2021 12:0 3:00 AM EDT [facility] Outpatient Attender: PAUL RUSHING MD 2020 08:07:00 PM EDT - 03/15/2021 09:00:00 AM EDT [facility] Sanjuanita Rolon MD: [address], [place] [address], Ph. Attender: Sanjuanita Rolon [facility] 02/09/2021 12:00:00 AM EDT [facility] ([facility]) Sanjuanita Rolon MD: [address], [place] [address], Ph. Attender: Sanjuanita Rolon [facility] Medical 02/09/2021 12:00:00 AM EDT [facility] ([facility]) Sanjuanita Rolon MD: [address] [place] [address], Ph. Attender: Sanjuanita Rolon [facility] 02/09/2021 12:00:00 AM EDT [facility] ([facility]) Sanjuanita Rolon MD: [address] [place] [address], Ph. Attender: Sanjuanita Rolon [facility] [place]/09/2021 12:00:00 AM EDT [facility] ([facility]) Inpatient Attender: Kulwinder Pascual MDAdmitter: Kulwinder soriano MD [id number] 01/10/2021 11:52:00 PM EDT - 01/13/2021 02:52:00 PM EDT [facility] Patient discharged. Inpatient Attender: PAUL RUSHING MDA riley: ROSA MARIA HERRERAConsultant: PAUL RUSHING MD 01/10/2021 09:00:00 AM EDT - 01/10/2021 10:00:00 PM EDT [facility] Patient discharged. Outpatient Attender: PAUL RUSHING MD 2020 05:42:00 PM EDT - 01/10/2021 09:00:00 AM EDT [facility] SPECIMEN Attender: Ernestine Slatererrer: Ernestine Miranda MD 2E-S6A 10/25/2020 11:00:00 PM EST - 10/25/2020 11:59:00 PM [facility] Patient discharged. Outpatient Attender: Ernestine Morel: Ernestine Miranda MD 2E-HL 10/20/2020 11:00:00 PM EST - 10/20/2020 11:59:00 PM [facility] Patient discharged. Outpatient Attender: ERNESTINE Morel: ERNESTINE MIRANDA MD 2E-HL 10/17/2020 01:00:00 AM EST - 10/17/2020 11:59:00 PM [facility] Patient discharged. SPECIMEN Attender: Ernestine Miranda MDReferrer: Ernestine Miranda MD 2E-S6A 10/16/2020 11:00:00 PM EST - 10/16/2020 11:59:00 PM EST [facility] Patient discharged. SPECIMEN Attender: Ernestine Miranda MDReferrer: Ernestine Miranda MD 2E-S6A 10/10/2020 11:00:00 PM EST - 10/10/2020 11:59:00 PM EST [facility] Patient discharged. SPECIMEN Attender: Ernestine Miranda MDReferrer: Ernestine Miranda MD 2E-S6A 10/06/2020 10:40:00 AM EST - 10/06/2020 11:59:00 PM [facility] Patient discharged. SPECIMEN Attender: ERNESTINE MIRANDA MDReferrer: ERNESTINE MIRANDA MD 2E-S6A 10/04/2020 10:25:00 PM EST - 10/04/2020 11:59:00 PM EST [facility] Patient discharged. Emergency Attender: ILIANA LEY [id number] 01:23:36 AM EST - 10/03/2020 11:17:[address] [facility] Patient discharged. Outpatient Attender: Josie BRINK ALL 06/09/2020 02:10:02 PM EDT [facility] Outpatient Attender: Josie BRINK ALL 06/08/2020 01:47:01 PM EDT [facility] Outpatient Attender: SARA BRINK [facility] 05/12/2020 0 3:08:00 PM EDT [facility] ([facility]) Outpatient Attender: Josie BRINK ALL 05/12/2020 08:24:01 AM EDT [facility] Outpatient Attender: Josie BRINK ALL 05/12/2020 08:24:01 AM EDT [facility] Medications Medication Brand Name Start Date Product Form Dose Route Admi nistrative Instructions Pharmacy Instructions Status Indications Reaction Description Data Source(s) 500 mg 03/22/2021 12:00:00 AM EDT tablet 90 TAKE ONE TABLET BY MOUTH EVERY DAY TAKE ONE TABLET BY MOUTH EVERY DAY SOLD: 03/22/2021 [facility] 5 mg 03/22/2021 12:00:00 AM EDT tablet 90 TAKE ONE TABLET BY MOUTH EVERY DAY TAKE ONE TABLET BY MOUTH EVERY DAY SOLD: 03/22/2021 [facility] 0.4 mg 03/22/2021 12:00:00 AM EDT capsule 90 TAKE ONE CAPSULE BY MOUTH EVERY DAY TAKE ONE CAPSULE BY MOUTH EVERY DAY SOLD: 03/22/2021 [facility] 400 mg 03/22/2021 12:00:00 AM EDT tablet 60 TAKE ONE TABLET BY MOUTH TWICE A DAY TAKE ONE TABLET BY MOUTH TWICE A DAY SOLD: 03/22/2021 [facility] atorvastatin 40 MG Oral Tablet ATORVASTATIN CALCIUM 03/22/2021 1 2:00:00 AM EDT tablet 90 TAKE ONE TABLET BY MOUTH EVERY D AY TAKE ONE TABLET BY MOUTH EVERY DAY SOLD: 03/22/2021 [facility] 25 mg 03/22/2021 12:00:00 AM EDT tablet 90 TAKE ONE TABLET BY MOUTH EVERY DAY TAKE ONE TABLET BY MOUTH EVERY DAY SOLD: 03/22/2021 [facility] Amlodipine 5 MG Oral Tablet Amlodipine Besylate 03/21/2021 12:00:00 A M EDT ORAL active [facility] (Chani Rushing MD) atorvastatin 40 MG Oral Tablet Atorvastatin Calcium 03/21/2021 1 2:00:00 AM EDT ORAL active [facility] ( Paul Rushing MD) Metformin hydrochloride 500 MG Oral Tablet Metformin HCL 03/21/2021 12:00:00 AM EDT active [facility] (Chani Rushing MD) Tamsulosin hydrochloride 0.4 MG Oral Capsule Tamsulosin HCL 03/21/2021 12:00:00 AM EDT ORAL active [facility] (Chani Rushing MD) metaxalone 400 MG Oral Tablet Metaxalone 03/21/2021 12:00:00 AM EDT ORAL active [facility] (Paul Rushing MD) Sertraline 25 MG Oral Tablet Sertraline HCL 03/21/2021 12:00:00 AM EDT ORAL active [facility] (Paul Rushing MD) 0.4 mg 02/10/2021 12:00:00 AM EDT capsule 30 TAKE ONE CAPSULE BY MOUTH EVERY DAY TAKE ONE CAPSULE BY MOUTH EVERY DAY SOLD: 02/10/2021 [facility] atorvastatin 40 MG Oral Tablet ATORVASTATIN CALCIUM 02/02/2021 1 2:00:00 AM EDT tablet 30 TAKE ONE TABLET BY MOUTH EVERY D AY TAKE ONE TABLET BY MOUTH EVERY DAY SOLD: 02/02/2021 [facility] 10 mg 02/02/2021 12:00:00 AM EDT tablet 30 TAKE ONE TABLET BY MOUTH EVERY DAY TAKE ONE TABLET BY MOUTH EVERY DAY SOLD: 02/02/2021 [facility] 500 mg 02/02/2021 12:00:00 AM EDT tablet 60 TAKE ONE TABLET BY MOUTH TWICE A DAY TAKE ONE TABLET BY MOUTH TWICE A DAY SOLD: 02/02/2021 [facility] 5 mg 01/15/2021 12:00:00 AM EDT tablet 30 TAKE ONE TABLET BY MOUTH EVERY DAY TAKE ONE TABLET BY MOUTH EVERY DAY SOLD: 01/16/2021 [facility] Amlodipine 5 MG Oral Tablet amLODIPine (NORVASC) 5 MG tablet amLODIPine (NORVASC) 5 MG tablet 01/13/2021 12:00:00 AM EDT 5 mg Oral active Take 1 tablet (5 mg total) by mouth daily [facility] iodixanol (VISIPAQUE) 320 MG/ML injection [id number] 01/12/2021 06:13 :23 PM EDT active As needed, Starting on Fri01/12/21 at 1813, Intra-Procedure [facility] Medication administered onsite lidocaine (PF) (XYLOCAINE-MPF) 1 % injection [id number] 06:08:49 PM EDT active As needed, Start ing on Fri01/12/21 at 1808, Intra-Procedure [facility] Medication administered onsite 2 ML Midazolam 1 MG/ML Injection midazolam (VERSED) in jection midazolam (VERSED) injection 01/12/2021 06:07:56 PM EDT active As needed, Starting on Fri01/12/21 at 1807, Intra-Procedure [facility] Medication administered onsite fentaNYL Citrate (PF) (SUBLIMAZE) injection [id number] 01/12/2021 06:07:51 PM EDT active As neede d, Starting on Fri01/12/21 at 1807, Intra-Procedure [facility] Medication administered onsite Cefazolin 1000 MG Injection ceFAZolin (ANCEF) injectio n ceFAZolin (ANCEF) injection 01/12/2021 06:07:26 PM EDT active As needed, Starting on Fri01/12/21 at 1807, Intra-Procedure [facility] Medication administered onsite normal saline flush 0.9 % injection 3 mL [id number] 01/12/2021 02:00:00 PM EDT 3 mL Intravenous active 3 mL , Intravenous, Every 8 hours (scheduled), First dose on Fri01/12/21 at 1400, Pre-op
Rapid push positive pressure flushing shall be performed with a 10 cc normal saline syringe to check the PATENCY of a PIV site prior to any infusion therapy initiation unless resistance is met.
[facility] Medication administered onsite normal saline flush 0.9 % injection 3 mL [id number] 01/12/2021 02:00:00 PM EDT 3 mL Intravenous active 3 mL , Intravenous, Every 8 hours (scheduled), First dose on Fri01/12/21 at 1400, Pre-op
Rapid push positive pressure flushing shall be performed with a 10 cc normal saline syringe to check the PATENCY of a PIV site prior to any infusion therapy initiation unless resistance is met.
[facility] Medication administered onsite Magnesium Chloride 0.65450 MEQ/ML / Pota ssium Chloride 0.0497 MEQ/ML / Sodium Acetate 0.0163 MEQ/ML / Sodium Chloride 0.0899 MEQ/ML / Sodium gluconate 5.02 MG/ML Injectable Solution [Normosol-R] electrolyte-R (NORMOSOL-R/PLASMALYTE-R) solution electrolyte-R (NORMOSOL-R/PLASMALYTE-R) solution 01/12 11:00:00 AM EDT Intravenous active at 5 0 mL/hr, Intravenous, Continuous, Starting on Fri01/12/21 at 1100, Pre-op [facility] Medication administered onsite Losartan Potassium 25 MG Oral Tablet losartan (COZAAR) tablet 50 mg losartan (COZAAR) tablet 50 mg 01/12/2021 09:00:00 AM EDT 50 mg Oral active 50 mg, Oral, Daily, First dose (after last modification) on Fri01/12/21 at 0900 [facility] Medication administered onsite Magnesium Hydroxide 80 MG/ML Oral Suspen zuleyma magnesium hydroxide (MILK OF MAGNESIA) 400 MG/5ML suspension 30 mL magnesium hydroxide (MILK OF MAGNESIA) 4 00 MG/5ML suspension 30 mL 01/12/2021 12:00:00 AM EDT 30 mL Oral active 30 mL, Oral, Daily PRN, constipation, Starting on Fri01/12/21 at 0000
If senna-docusate is not effective
[facility] Medication administered onsite Finasteride 5 MG Oral Tablet finasteride (PROSCAR) tab let 5 mg finasteride (PROSCAR) tablet 5 mg 01/11/2021 09:00:00 AM EDT 5 mg Oral active 5 mg, Oral, Daily, First dose on Fri01/11/21 at 0900 [facility] Medication administered onsite Losartan Potassium 25 MG Oral Tablet losartan (COZAAR) tablet 25 mg losartan (COZAAR) tablet 25 mg 01/11/2021 09:00:00 AM EDT 25 mg Oral aborted 25 mg, Oral, Daily, First dose on Fri01/11/21 at 0900 [facility] Medication administered onsite Insulin Lispro 100 UNT/ML Injectable Marcy ution insulin lispro (HumaLOG) injection 1-6 Units insulin lispro (HumaLOG) injection 1-6 Units 08:00:00 AM EDT U Subcutaneous active 1-6 Units, Subcutaneous, MEALSS, First dose on Fri01/11/21 at 0800
Frail 3 units Nutritional and Correction Insulin Scale Blood Glucose (mg/dl) <70 start hypoglycemia protocol Glucose &nbsp ; Eats >=50% Eats &l t;50% Eats Nothing (mg/dl) of meal of meal or NPO &nb sp; 70- 120 2 units 1 units 0 units 121-170 & nbsp; 3 units 2 units 0 units 171-220 &nbsp ; 4 units 2 units 1 units 221-270 &am p;nbsp; 4 units 3 units 1 units 271-320 &n bsp; 5 units 3 units 2 units 321- 370 5 units 4 units 2 units 371- 420 6 units 4 units 3 units >420 call MD 6 units 5 units 3 units Test glucose within 30 minutes of insulin administration. Administer insulin within 15 minutes (before or after) of t he patient starting to eat. For patients that are NPO, use the NPO (correction) scale to cover POC glucose at 08:00, 12:00, 17:00.
[facility] Medication administered onsite heparin (porcine) injection 5,000 Units [id number] 01/12/20 06:00:00 AM EDT 5000 U Subcutaneous active 5,000 Units , Subcutaneous, Every 8 hours (scheduled), First dose on Aleksandra 01/11/21 at 0600
If platelet count is less than 100,000 or hematocrit is less than 30, or if there is a 5 point decrease in hematocrit, do not give the dose and call physician/designee.
[facility] Medication administered onsite Amlodipine 5 MG Oral Tablet amLODIPine (NORVASC) table t 5 mg amLODIPine (NORVASC) tablet 5 mg 01/11/2021 04:00:00 AM EDT 5 mg Oral active 5 mg, Oral, Daily, First dose (after last modification) on Aleksandra 01/11/21 at 0400 [facility] Medication administered onsite Docusate Sodium 50 MG / sennosides, SNF 8.6 MG Oral Tablet senna-docusate (PERICOLACE) 8.6-50 MG 2 tablet senna-docusate (PERICOLACE) 8.6-50 MG 2 tablet 01/11/2021 04:00:00 AM EDT 2 {tbl} Oral active 2 tablet, Oral, Nightly, First dose on Aleksandra 01/11/21 at 0400
hold for loose stools
[facility] Medication administered onsite Simvastatin 20 MG Oral Tablet simvastatin (ZOCOR) tabl et 20 mg simvastatin (ZOCOR) tablet 20 mg 01/11/2021 04:00:00 AM EDT 20 mg Oral active 20 mg, Oral, Nightly, First dose on Aleksandra 01/11/21 at 0400 [facility] Medication administered onsite Acetaminophen 325 MG Oral Tablet acetaminophen (TYLENO L) 325 MG tablet 650 mg acetaminophen (TYLENOL) 325 MG tablet 650 mg 01/11/2021 03:11:29 AM EDT 650 mg Oral active 650 mg, Or al, Every 6 hours PRN, mild pain (1-3), moderate pain (4-6), Starting on Aleksandra 01/11/21 at 0311
"Maximum dose of acetaminophen is 4,000 mg from all sources in 24 hours."
[facility] Medication administered onsite Bisacodyl 10 MG Rectal Suppository bisacodyl (DULCOLAX ) suppository 10 mg bisacodyl (DULCOLAX) suppository 10 mg 01/11/2021 03:08:01 AM EDT 10 mg Rectal active 10 mg, Rectal, Daily PRN, constipation, Starting on Aleksandra 01/11/21 at 0308
Hold for BM. If senna-docusate and milk of magnesia are not effective
[facility] Medication administered onsite Mineral Oil 1000 MG/ML Enema mineral oil enema 1 enema mineral oil enema 1 enema 01/11/2021 03:08:01 AM EDT 1 {enema} Rectal active 1 enema, Rectal, Daily PRN, constipation, unrelieved by MOM/bisacodyl/senna-docusate, Starting on Aleksandra 01/11/21 at 0308
hold for loose stools
[facility] Medication administered onsite 40 mg 05/16/2020 12:00:00 AM EDT tablet 30 TAKE ONE TABLET BY MOUTH EVERY DAY TAKE ONE TABLET BY MOUTH EVERY DAY SOLD: 05/16/2020 [facility] Atenolol 50 MG Oral Tablet ATENOLOL 05/16/2020 12:00:00 AM EDT tablet 30 TAKE ONE TABLET BY MOUTH EVERY DAY TAKE ONE TABLET BY MOUTH EVERY DAY SOLD: 05/16/2020 [facility] 1 gram 05/16/2020 12:00:00 AM EDT tablet 90 TAKE ONE TABLET BY MOUTH THREE TIMES A DAY TAKE ONE TABLET BY MOUTH THREE TIMES A DAY SOLD: 05/16/2020 [facility] Losartan Potassium 25 MG Oral Tablet LOSARTAN POTASSIUM 12:00:00 AM EDT tablet 30 TAKE ONE TABLET BY MOUTH GLENDY RY DAY AT 9PM TAKE ONE TABLET BY MOUTH EVERY DAY AT 9PM SOLD: 05/16/2020 [facility] glimepiride 4 MG Oral Tablet GLIMEPIRIDE [...] TWICE A DAY SOLD: 05/16/2020 [facility] Finasteride 5 MG Oral Tablet FINASTERIDE 05/16/2020 12:00:00 AM EDT ta blet 30 TAKE ONE TABLET BY MOUTH AT BEDTIME TAKE ONE TABLET BY MOUTH AT BEDTIME SOLD: 05/16/2020 [facility] 0.4 mg 05/16/2020 12:00:00 AM EDT capsule 30 TAKE ONE CAPSULE BY MOUTH EVERY DAY TAKE ONE CAPSULE BY MOUTH EVERY DAY SOLD: 05/16/2020 [facility] 5 mg 05/16/2020 12:00:00 AM EDT tablet 30 TAKE ONE TABLET BY MOUTH EVERY DAY TAKE ONE TABLET BY MOUTH EVERY DAY SOLD: 05/16/2020 [facility] Amlodipine 10 MG Oral Tablet amlodipine 10 mg tablet TAKE ONE TABLET BY MOUTH EVERY DAY amlodipine 10 mg tablet TAKE ONE TABLET BY MOUTH EVERY DAY completed amlodipine 10 MG Oral Tablet [facility] ([facility]) Amlodipine 5 MG Oral Tablet amLODIPine (NORVASC) 5 MG tablet amLODIPine (NORVASC) 5 MG tablet 5 mg Oral aborted Ta ke 5 mg by mouth daily [facility] Finasteride 5 MG Oral Tablet finasteride (PROSCAR) 5 M G tablet finasteride (PROSCAR) 5 MG tablet 5 mg Oral aborted Ta ke 5 mg by mouth daily [facility] Atenolol 50 MG Oral Tablet atenolol (TENORMIN) 50 MG t ablet atenolol (TENORMIN) 50 MG tablet 50 mg Oral aborted Take 50 mg by mouth daily [facility] Losartan Potassium 25 MG Oral Tablet losartan (COZAAR) 25 MG tablet losartan (COZAAR) 25 MG tablet 25 mg Oral aborted Ta ke 25 mg by mouth daily [facility] glimepiride 2 MG Oral Tablet glimepiride (AMARYL) 2 MG tablet glimepiride (AMARYL) 2 MG tablet 2 mg Oral aborted Take 2 mg by mouth every morning before breakfast [facility] Sodium Chloride 1000 MG Oral Tablet sodium chloride 1 g tablet sodium chloride 1 g tablet 20 mg Oral aborted Take 20 mg by m outh daily [facility] Simvastatin 20 MG Oral Tablet simvastatin (ZOCOR) 20 M G tablet simvastatin (ZOCOR) 20 MG tablet 20 mg Oral aborted Steve e 20 mg by mouth nightly [facility] Tamsulosin hydrochloride 0.4 MG Oral Capsule tamsulosi n (FLOMAX) 0.4 MG CAPS tamsulosin (FLOMAX) 0.4 MG CAPS 0.4 mg Oral aborte d Take 0.4 mg by mouth daily [facility] Amlodipine 10 MG Oral Tablet amlodipine 10 mg tablet TAKE ONE TABLET BY MOUTH EVERY DAY amlodipine 10 mg tablet TAKE ONE TABLET BY MOUTH EVERY DAY completed amlodipine 10 MG Oral Tablet [facility] ([facility]) Amlodipine 5 MG Oral Tablet amlodipine 5 mg tablet TAKE ONE TABLET BY MOUTH EVERY DAY amlodipine 5 mg tablet TAKE ONE TABLET BY MOUTH EVERY DAY completed amlodipine 5 MG Oral Tablet ATHE NA ([facility]) Insurance Providers Payer name Policy type / Coverage type Policy ID Covered libertarian ID Covered libertarian's relationship to valderrama Policy Valderrama Plan Information MEDICARE [id number] SP [id number] MEDICARE [id number] SP [id number] MEDICARE Medicare [id number] MEDICARE Med [id number] Self [id number] MEDICARE [id number] SP [id number] MEDICARE [id number] SP [id number] A INSURANCE COVID-19 COVID Amrita C OVID MEDICARE [id number] Amrita [id number] [id number] MEDICARE [id number] MEDICARE -O/P [id number] 18 [id number] MEDICARE PART A -O/P [id number] 18 [id number] MEDICARE UNAVAILABLE Amrita UNAVAILA BLE MEDICARE C [id number] S [id number] MEDICARE C [id number] S [id number] MEDICARE PART A -O/P [id number] 18 [id number] MEDICARE PART A -O [id number] 18 [id number] MEDICARE PART A -I/P [id number] 18 [id number] MEDICARE PART B -PHYSICIAN [id number] 18 [id number] Medicare Natl Gov't Servi Medicare Primary [id number] [facility] [id number] Problems, Conditions, and Diagnoses Code Display Name Description Problem Type Effective Dates Data Source(s) R55 Syncope and collapse Syncope and collapse Diagnosis 05/06/2021 02:14:00 PM EDT [facility] N400 Benign prostatic hyperplasia without low er urinary tract symptoms Benign prostatic hyperplasia without lower urinary tract symptoms Diagnosis 05/06/2021 02:14:00 PM EDT [facility] R531 Weakness Weakness Diagnosis 05/06/2021 02:14:00 PM ED T [facility] E8342 Hypomagnesemia Hypomagnesemia Diagnosis 05/06/2021 02:14: 00 PM EDT [facility] F349 Persistent mood [affective] disorder, un specified Persistent mood [affective] disorder, unspecified Diagnosis 05/06/2021 02:14:00 PM EDT [facility] I10 Essential (primary) hypertension Essential (primary) h ypertension Diagnosis 05/06/2021 02:14:00 PM EDT [facility] E876 Hypokalemia Hypokalemia Diagnosis 05/06/2021 02:14:00 PM EDT [facility] E119 Type 2 diabetes mellitus without complic ations Type 2 diabetes mellitus without complications Diagnosis 05/06/2021 02:14:00 PM EDT [facility] Z955 Presence of coronary angioplasty implant and graft Presence of coronary angioplasty implant and graft Diagnosis 05/06/2021 02:14:00 PM EDT [facility] Z950 Presence of cardiac pacemaker Presence of cardiac pace maker Diagnosis 05/06/2021 02:14:00 PM EDT [facility] E871 Hypo-osmolality and hyponatremia Hypo-osmolality and hyponatremia Diagnosis 05/06/2021 02:14:00 PM EDT [facility] R0789 Other chest pain Other chest pain Diagnosis 05/06/2021 02 :14:00 PM EDT [facility] R0609 Other forms of dyspnea Other forms of dyspnea Diagnosi s 03/15/2021 09:00:00 AM EDT [facility] R350 Frequency of micturition Frequency of micturition Diag nosis 03/15/2021 09:00:00 AM EDT [facility] R05 Cough Cough Diagnosis 03/15/2021 09:00:00 AM ED T [facility] F419 Anxiety disorder, unspecified Anxiety disorder, unspec ified Diagnosis 03/15/2021 09:00:00 AM EDT [facility] L71353 Pain in left knee Pain in left knee Diagnosis 03/15/2021 09:00:00 AM EDT [facility] L29704 Pain in right knee Pain in right knee Diagnosis 09:00:00 AM EDT [facility] M545 Low back pain Low back pain Diagnosis 03/15/2021 09:00:00 AM EDT [facility] N401 Benign prostatic hyperplasia with lower urinary tract symptoms Benign prostatic hyperplasia with lower urinary tract symptoms Diagnosis 03/15/2021 09:00:00 AM EDT [facility] J44002 Personal history of pulmonary embolism P ersonal history of pulmonary embolism Diagnosis 03/15/2021 09:00:00 AM EDT [facility] J449 Chronic obstructive pulmonary disease, u nspecified Chronic obstructive pulmonary disease, unspecified Diagnosis 03/13/2021 08:07:00 PM EDT [facility] R296 Repeated falls Repeated falls Diagnosis 03/13/2021 08:07: 00 PM EDT [facility] E860 Dehydration Dehydration Diagnosis 03/13/2021 08:07:00 PM EDT [facility] 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 Diagnosis 03/13/2021 08:07:00 PM EDT [facility] E785 Hyperlipidemia, unspecified Hyperlipidemia, unspecifie d Diagnosis 03/13/2021 08:07:00 PM EDT [facility] E872 Acidosis Acidosis Diagnosis 03/13/2021 08:07:00 PM ED T [facility] R2689 Other abnormalities of gait and mobility Other abnormalities of gait and mobility Diagnosis 03/13/2021 08:07:00 PM EDT [facility] Z1152 ENCOUNTER FOR SCREENING FOR COVID-19 ENCOUNTER F OR SCREENING FOR COVID-19 Diagnosis 03/13/2021 08:07:00 PM EDT [facility] 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, left knee Unilateral primary osteoarthritis, left knee Diagnosis 03/13/2021 08:07:00 PM EDT [facility] 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, left hip Unilateral primary osteoarthritis, left hip Diagnosis 03/13/2021 08:07:00 PM EDT [facility] F19430 Other specified disorders of bone densit y and structure, left lower leg Other specified disorders of bone density and structure, left lower leg Diagnosis 03/13/2021 08:07:00 PM EDT [facility] Z7984 jail (current) use of oral hypoglyc emic drugs [employer] (current) use of oral hypoglycemic drugs Diagnosis 03/13/2021 08:07:00 PM EDT [facility] R94.31 Abnormal electrocardiogram [ECG] [EKG] A bnormal electrocardiogram (ECG) (EKG) Diagnosis 01/10/2021 11:52:00 PM EDT [facility] R55 Syncope and collapse Syncope and collapse Diagnosis 01/10/2021 11:52:00 PM EDT [facility] R911 Solitary pulmonary nodule Solitary pulmonary nodule Di agnosis 01/10/2021 09:00:00 AM EDT [facility] 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 Diagnosis 0 01/10/2021 09:00:00 AM EDT [facility] I454 Nonspecific intraventricular block Nonspecific i ntraventricular block Diagnosis 01/10/2021 09:00:00 AM T [facility] E1165 Type 2 diabetes mellitus with hyperglyce sharon Type 2 diabetes mellitus with hyperglycemia Diagnosis 01/08/2021 05:42:00 PM EDT [facility] G459 Transient cerebral ischemic attack, unsp ecified Transient cerebral ischemic attack, unspecified Diagnosis 01/08/2021 05:42:00 PM EDT [facility] S09.90XA Unspecified injury of head, initial enco unter Unspecified injury of head, initial enco Diagnosis 10/03/2020 01:23:36 AM EST [facility] R29.6 Repeated falls Repeated falls Diagnosis 10/03/2020 01:23: 36 AM [facility] [id number] Cardiac pacemaker in situ Cardiac Pacemaker in Situ Pr oblem 02/19/2021 12:00:00 AM EDT JAIRON ([facility]) [id number] Cardiac pacemaker in situ Cardiac Pacemaker in Situ Pr oblem 02/19/2021 12:00:00 AM EDT [facility]IR[facility] ([facility]) [id number] Cardiac pacemaker in situ Cardiac Pacemaker in Situ Pr oblem 02/19/2021 12:00:00 AM EDT [facility]IRON ([facility]) [id number] Hyperlipidemia Hyperlipidemia Problem 02/09/2021 12:00: 00 AM EDT [facility] ([facility]) 26714918 Hyperlipidemia Hyperlipidemia Problem 02/09/2021 12:00: 00 AM EDT [facility] ([facility]) 47640992 Hyperlipidemia Hyperlipidemia Problem 02/09/2021 12:00: 00 AM EDT [facility] ([facility]) 43289344 Hyperlipidemia Hyperlipidemia Problem 02/09/2021 12:00: 00 AM EDT [facility] ([facility]) M25.562 Acute pain of left knee Acute pain of left knee 849590 01 01/11/2021 12:00:00 AM EDT [facility] R55 Syncope Syncope [id number] 01/11/2021 12:00:00 AM ED T [facility] R29.6 Frequent falls Frequent falls 03087588 01/11/2021 12:00: 00 AM EDT [facility] R94.31 Abnormal EKG Abnormal EKG 09829980 01/11/2021 12:00:00 A M EDT [facility] F03.90 Dementia Dementia 61605152 01/11/2021 12:00:00 AM ED T [facility] E78.5 Hyperlipemia Hyperlipemia 94114232 01/11/2021 12:00:00 A M EDT [facility] I10 Hypertension Hypertension 93013991 01/11/2021 12:00:00 A M EDT [facility] E11.9 Diabetes mellitus Diabetes mellitus 43415951 01/11/2021 12:00:00 AM EDT [facility] N40.0 Benign prostatic hyperplasia without low er urinary tract symptoms Benign localized hyperplasia of prostate 05/12/2020 08:23:18 AM EDT [facility] I10 Essential (primary) hypertension HTN, unspecified 05/12/2020 08:23:18 AM EDT [facility] 268.9 Vitamin D deficiency Vitamin D deficiency 05/12 08:23:18 AM EDT [facility] 250.80 Type 2 diabetes mellitus with hyperglyce sharon Type 2 diabetes mellitus with hyperglycemia 05/12/2020 08:23:18 AM EDT [facility] V12.59 History of myocardial infarction History of myocardial infarction 05/12/2020 08:23:18 AM EDT [facility] I45.19 Other right bundle-branch block Incomplete right bundl e branch block 05/12/2020 08:23:18 AM EDT [facility] 276.1 Hyponatremia Hyponatremia 05/12/2020 08:23:18 A M EDT [facility] 780.2 Syncope Syncope 05/12/2020 08:23:18 AM ED T [facility] [id number] Syncope and collapse Syncope and Collapse Problem 05/12/2020 12:00:00 AM EDT [facility] ([facility]) [id number] Large prostate Large Prostate Problem 05/12/2020 12:00: 00 AM EDT [facility]) 24450480 Right bundle branch block Right Bundle Branch Block Pr oblem 05/12/2020 12:00:00 AM EDT [facility] ([facility]) 46246803 Hypertensive disorder Hypertensive Disorder Problem 05/12/2020 12:00:00 AM EDT [facility] ([facility]) 914540550 Hypo-osmolality and or hyponatremia Hypo -osmolality and or Hyponatremia Problem 05/12/2020 12:00:00 AM EDT [facility] ([facility]) 67509837 Vitamin D deficiency Vitamin D Deficiency Problem 05/12/2020 12:00:00 AM EDT [facility] ([facility]) 196372073 Type II diabetes mellitus uncontrolled T ype II Diabetes Mellitus Uncontrolled Problem 05/12/2020 12:00:00 AM EDT [facility] ([facility]) 080716070 Syncope and collapse Syncope and Collapse Problem 05/12/2020 12:00:00 AM EDT [facility] ([facility]) 083979450 Large prostate Large Prostate Problem 05/12/2020 12:00: 00 AM EDT [facility] ([facility]) 17746763 Right bundle branch block Right Bundle Branch Block Pr oblem 05/12/2020 12:00:00 AM EDT [facility] ([facility]) 62609730 Hypertensive disorder Hypertensive Disorder Problem 05/12/2020 12:00:00 AM EDT [facility] ([facility]) 687250344 Hypo-osmolality and or hyponatremia Hypo -osmolality and or Hyponatremia Problem 05/12/2020 12:00:00 AM EDT [facility] ([facility]) 41345350 Vitamin D deficiency Vitamin D Deficiency Problem 05/12/2020 12:00:00 AM EDT [facility] ([facility]) 601628410 Type II diabetes mellitus uncontrolled T ype II Diabetes Mellitus Uncontrolled Problem 05/12/2020 12:00:00 AM EDT [facility] ([facility]) 751543841 Syncope and collapse Syncope and Collapse Problem 05/12/2020 12:00:00 AM EDT [facility] ([facility]) 607296864 Large prostate Large Prostate Problem 05/12/2020 12:00: 00 AM EDT [facility] ([facility]) 76705851 Right bundle branch block Right Bundle Branch Block Pr oblem 05/12/2020 12:00:00 AM EDT [facility] ([facility]) 30375033 Hypertensive disorder Hypertensive Disorder Problem 05/12/2020 12:00:00 AM EDT [facility] ([facility]) 113789536 Hypo-osmolality and or hyponatremia Hypo -osmolality and or Hyponatremia Problem 05/12/2020 12:00:00 AM EDT [facility] ([facility]) 32348076 Vitamin D deficiency Vitamin D Deficiency Problem 05/12/2020 12:00:00 AM EDT [facility] ([facility]) 451666228 Type II diabetes mellitus uncontrolled T ype II Diabetes Mellitus Uncontrolled Problem 05/12/2020 12:00:00 AM EDT [facility] ([facility]) 457356154 Syncope and collapse Syncope and Collapse Problem 05/12/2020 12:00:00 AM EDT [facility] ([facility]) 860534539 Large prostate Large Prostate Problem 05/12/2020 12:00: 00 AM EDT [facility] ([facility]) 83233583 Right bundle branch block Right Bundle Branch Block Pr oblem 05/12/2020 12:00:00 AM EDT [facility] ([facility]) 87464568 Hypertensive disorder Hypertensive Disorder Problem 05/12/2020 12:00:00 AM EDT [facility] ([facility]) 378120649 Hypo-osmolality and or hyponatremia Hypo -osmolality and or Hyponatremia Problem 05/12/2020 12:00:00 AM EDT [facility] ([facility]) 78663689 Vitamin D deficiency Vitamin D Deficiency Problem 05/12/2020 12:00:00 AM EDT [facility] ([facility]) 299196226 Type II diabetes mellitus uncontrolled T ype II Diabetes Mellitus Uncontrolled Problem 05/12/2020 12:00:00 AM EDT [facility] ([facility]) Surgeries/Procedures Procedure Description Date Indications Data Source(s) ECHO TTHRC R-T 2D W/WOM-MODE COMPL SPEC&COLR DOP 05/08 12:00:00 AM EDT [facility] ([facility] Rushing [facility]) HOSPITAL DISCHARGE DAY MANAGEMENT 30 MIN/< 03/21/2021 12:00:00 AM EDT [facility] (Paul Rushing MD) [facility] HOSPITAL CARE/DAY 15 MINUTES 03/20/2021 12:00:00 AM EDT [facility] ([facility] Rushing MD) [facility] HOSPITAL CARE/DAY 15 MINUTES 03/19/2021 12:00:00 AM EDT [facility] (Paul Rushing MD) [facility] HOSPITAL CARE/DAY 15 MINUTES 03/18/2021 12:00:00 AM EDT [facility] ([facility] HOSPITAL HOSPITAL CARE/DAY 25 MINUTES 03/17/2021 12:00:00 AM EDT [facility] (Paul Rushing MD) [facility] HOSPITAL CARE/DAY 25 MINUTES 03/16/2021 12:00:00 AM EDT [facility] (Paul Rushing MD) Computerized Tomography (CT Scan) of Chest and Abdomen using Other Contrast Computerized Tomography (CT Scan) of Chest and Abdomen using Other Contrast 03/16/2021 12:00:00 AM EDT [facility] HOSPITAL CARE/DAY 25 MINUTES 03/15/2021 12:00:00 AM EDT [facility] (Paul Rushing MD) Monitoring of Cardiac Electrical Activity, External Ap proach Monitoring of Cardiac Electrical Activity, External Approach 03/15/2021 12:00:00 AM EDT [facility] Introduction of Electrolytic and Water B alance Substance into Peripheral Vein, Percutaneous Approach Introduction of Electrolytic and Water B alance Substance into Peripheral Vein, Percutaneous Approach 03/15/2021 12:00:00 AM EDT [facility] HOSPITAL CARE/DAY 25 MINUTES 03/14/2021 12:00:00 AM EDT [facility] (Paul Rushing MD) INITIAL HOSPITAL CARE/DAY 50 MINUTES 03/13/2021 12:00: 00 AM EDT [facility] (Paul Rushing MD) GLUC BLD GLUC MNTR DEV CLEARED FDA SPEC HOME USE <td>P OCT GLUCOSE</td><td>Routine</td><td>01/13/2021 12:20 PM EDT</td><td></td><td> </td> 01/13/2021 12:20:00 PM EDT [facility] GLUC BLD GLUC MNTR DEV CLEARED FDA SPEC HOME USE <td>P OCT GLUCOSE</td><td>Routine</td><td>01/13/2021 8:53 AM EDT</td><td></td><td> </td> 01/13/2021 08:53:00 AM EDT [facility] BLOOD COUNT COMPLETE AUTOMATED <td>CBC</td><td>Routine </td><td>01/13/2021 7:35 AM EDT</td><td></td><td> </td> 01/13/2021 07:35:00 AM EDT [facility] BASIC METABOLIC PANEL CALCIUM TOTAL <td>BASIC METABOLI C PANEL</td><td>Routine</td><td>01/13/2021 7:35 AM EDT</td><td></td><td> </td> 01/13/2021 07:35:00 AM EDT [facility] GLUC BLD GLUC MNTR DEV CLEARED FDA SPEC HOME USE <td>P OCT GLUCOSE</td><td>Routine</td><td>01/12/2021 7:20 PM EDT</td><td></td><td> </td> 01/12/2021 07:20:00 PM EDT [facility] XR CHEST PORTABLE <td>XR CHEST PORTABLE</td><t d>STAT</td><td>01/12/2021 6:55 PM EDT</td><td></td><td> </td> 01/12/2021 06:55:43 PM EDT [facility] EP STUDY <td>EP STUDY</td><td>Routine </td><td>01/12/2021 6:27 PM EDT</td><td> Syncope, unspecified syncope type</td><td></td> 01/12/2021 06:27:59 PM EDT Syncope, unspecified syncope type [facility] Syncope, unspecified syncope type GLUC BLD GLUC MNTR DEV CLEARED FDA SPEC HOME USE <td>P OCT GLUCOSE</td><td>Routine</td><td>01/12/2021 12:36 PM EDT</td><td></td><td> </td> 01/12/2021 12:36:00 PM EDT [facility] GLUC BLD GLUC MNTR DEV CLEARED FDA SPEC HOME USE <td>P OCT GLUCOSE</td><td>Routine</td><td>01/12/2021 8:39 AM EDT</td><td></td><td> </td> 01/12/2021 08:39:00 AM EDT [facility] BLOOD COUNT COMPLETE AUTOMATED <td>CBC</td><td>Routine </td><td>01/12/2021 4:39 AM EDT</td><td></td><td> </td> 01/12/2021 04:39:00 AM EDT [facility] BASIC METABOLIC PANEL CALCIUM TOTAL <td>BASIC METABOLI C PANEL</td><td>Routine</td><td>01/12/2021 4:39 AM EDT</td><td></td><td> </td> 01/12/2021 04:39:00 AM EDT [facility] GLUC BLD GLUC MNTR DEV CLEARED FDA SPEC HOME USE <td>P OCT GLUCOSE</td><td>Routine</td><td>01/11/2021 6:50 PM EDT</td><td></td><td> </td> 01/11/2021 06:50:00 PM EDT [facility] FIBRIN DGRADJ PRODUCTS D-DIMER QUANTITATIVE <td>D-DIME R, QUANTITATIVE</td><td>STAT</td><td>01/11/2021 3:25 PM EDT</td><td></td><td> </td> 01/11/2021 03:25:00 PM EDT [facility] ECHO TTHRC R-T 2D W/WOM-MODE COMPL SPEC&COLR DOP <td>E CHOCARDIOGRAM TRANSTHORACIC</td><td>Routine</td><td>01/11/2021 8:47 AM EDT</td><td></td><td> </td> 01/11/2021 08:47:20 AM EDT [facility] TROPONIN QUANTITATIVE <td>TROPONIN I</td><td>Timed </td><td>01/11/2021 4:13 AM EDT</td><td></td><td> </td> 01/11/2021 04:13:00 AM EDT [facility] BLOOD COUNT COMPLETE AUTOMATED <td>CBC</td><td>Routine </td><td>01/11/2021 4:13 AM EDT</td><td></td><td> </td> 01/11/2021 04:13:00 AM EDT [facility] BASIC METABOLIC PANEL CALCIUM TOTAL <td>BASIC METABOLI C PANEL</td><td>Routine</td><td>01/11/2021 4:13 AM EDT</td><td></td><td> </td> 01/11/2021 04:13:00 AM EDT [facility] COVID/FLU AB/RSV PCR <td>COVID/FLU AB/RSV PCR</td ><td>STAT</td><td>01/11/2021 1:00 AM EDT</td><td></td><td> </td> 01/11/2021 01:00:00 AM EDT [facility] NT PRO BNP <td>NT PRO BNP</td><td>Routi ne</td><td>01/11/2021 12:57 AM EDT</td><td></td><td> </td> 01/11/2021 12:57:00 AM EDT [facility] TROPONIN QUANTITATIVE <td>TROPONIN I</td><td>Timed </td><td>01/11/2021 12:57 AM EDT</td><td></td><td> </td> 01/11/2021 12:57:00 AM EDT [facility] BLOOD COUNT COMPLETE AUTO&AUTO DIFRNTL WBC COUNT <td>C BC AND DIFFERENTIAL</td><td>STAT</td><td>01/11/2021 12:57 AM EDT</td><td></td><td> </td> 01/11/2021 12:57:00 AM EDT [facility] THYROID STIMULATING HORMONE TSH <td>TSH</td><td>Routin e</td><td>01/11/2021 12:57 AM EDT</td><td></td><td> </td> 01/11/2021 12:57:00 AM EDT [facility] THYROXINE FREE <td>T4, FREE</td><td>Routine </td><td>01/11/2021 12:57 AM EDT</td><td></td><td> </td> 01/11/2021 12:57:00 AM EDT [facility] MAGNESIUM <td>MAGNESIUM</td><td>Routin e</td><td>01/11/2021 12:57 AM EDT</td><td></td><td> </td> 01/11/2021 12:57:00 AM EDT [facility] HEMOGLOBIN GLYCOSYLATED A1C <td>HEMOGLOBIN A1C</td><td>Routine</td><td>01/11/2021 12:57 AM EDT</td><td></td><td> </td> 01/11/2021 12:57:00 AM EDT [facility] COMPREHENSIVE METABOLIC PANEL <td>COMPREHENSIVE METABO LIC PANEL</td><td>STAT</td><td>01/11/2021 12:57 AM EDT</td><td></td><td> </td> 01/11/2021 12:57:00 AM EDT [facility] ECG ROUTINE ECG W/LEAST 12 LDS TRCG ONLY W/O I&R <td>E CG 12- LEAD</td><td>Routine</td><td>01/11/2021 12:01 AM EDT</td><td></td><td></td> 01/11/2021 12:01:[address] [facility] HOSPITAL DISCHARGE DAY MANAGEMENT 30 MIN/< 01/10/2021 12:00:00 AM EDT [facility] (Paul Rushing MD) Computerized Tomography (CT Scan) of Abdomen and Pelvi s using Other Contrast Computerized Tomography (CT Scan) of Abdomen and Pelvis using Other Contrast 01/10/2021 12:00:00 AM EDT [facility] Computerized Tomography (CT Scan) of Head using Other Contrast Computerized Tomography (CT Scan) of Head using Other Contrast 01/10/2021 12:00:00 AM EDT [facility] HOSPITAL CARE/DAY 25 MINUTES 01/09/2021 12:00:00 AM EDT [facility] (Paul Rushing MD) INITIAL HOSPITAL CARE/DAY 50 MINUTES 01/08/2021 12:00: 00 AM EDT [facility] (Paul Rushing MD) SARS CORONAVIRUS WITH COV-2 RNA, QUALITATIVE REAL-TIME RT-PCR <td>SARS CORONAVIRUS WITH COV-2 RNA, QUALITATIVE REAL-TIME RT- PCR</td><td>Routine</td><td>10/20/2020 7:00 AM EST</td><td></td><td> </td> 10/20/2020 07:00:00 AM EST [facility] CBC AND DIFFERENTIAL <td>CBC AND DIFFERENTIAL</td ><td>Routine</td><td>10/17/2020 8:45 AM EST</td><td></td><td> </td> 10/17/2020 08:45:00 AM [facility] HEMOGLOBIN GLYCOSYLATED A1C <td>HEMOGLOBIN A1C</td><td>Routine</td><td>10/17/2020 8:45 AM EST</td><td></td><td> </td> 10/17/2020 08:45:00 AM [facility] COMPREHENSIVE METABOLIC PANEL <td>COMPREHENSIVE METABO LIC PANEL</td><td>Routine</td><td>10/17/2020 8:45 AM EST</td><td></td><td> </td> 10/17/2020 08:45:00 AM [facility] Results ID Date Data Source [id number] 05/07/2021 09:09:00 [place] [id number] HISTORY AND PHYSICALNAME: HAYLEE Forrester ROOM#: 110-1DATE OF : 1945 MR#: [id number] PHYS: Trish Ahmadi MD DATE: 05/06/21CHIEF COMPLAINT: Chest pain, not feeling well.HISTORY OF PRESENT ILLNESS:A pleasant 76-year-old male presented to the emergency room with complaint of just not feeling well at homeand chest pain. The chest pain, he claims, started yesterday, worse, retrosternal pressure-like and radiating tothe left side of the shoulder. He denied having any shortness of breath, nausea, vomiting, cold sweats,dizziness, lightheadedness, and abdominal pain, but had constipation with it. He has a significant cardiachistory. He has a history of CAD, stent placement. 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 Workup was done atthe emergency room, which was fairly benign. His troponin was less than 0.01. He did have hyponatremia at129, hypokalemia at 3.5. EKG was unchanged from previously. Chest x-ray was normal. At this point,hospitalist was called for admission due to chest pain, rule out ACS, and for the hyponatremia.When patient was seen, he stated that he cannot go back home as he does not have electricity or help at home,he does not feel well. [place] that patient's chest pain is slowly improving, but is still present.REVIEW OF SYSTEMS:As discussed recently.PAST MEDICAL HISTORY: 1. CAD post stent placement. 2. Hypertension. 3. Diabetes mellitus type 2. 4. Depression/anxiety. 5. Benign prostatic hypertrophy. 6. History of COPD. 7. Hyperlipidemia. 8. History of degenerative disc disease lumbar spine. 9. History of TIA. 10. History of falls.PAST SURGICAL HISTORY: 1. Status post discectomy and lumbar laminectomy at L5-S1. He has a total of three back surgeries in [facility]. 2. Status post tonsillectomy.FAMILY HISTORY:Father of metastatic cancer, and mother of senile dementia and some sort of cancer. [address] [place] [address] HISTORY AND PHYSICALNAME: HAYLEE Forrester ROOM#: [id number] OF : 1945 MR#: [id number] PHYS: Trish Ahmadi MD DATE: 05/06/21SOCIAL HISTORY:Patient lives alone by himself. He claims that he does not have any running water or electricity at homecurrently. I was not able to contact family members to discuss living status, but he uses a walker at home.Denies smoking history, alcohol, or drug use at this time.PHYSICAL EXAMINATION:VITAL SIGNS: Temperature 97.1. Blood pressure is 129/80. O2 saturation is 100% on room air. Respiratoryrate 18-20 breaths per minute. Pulse 90.HEENT: Head is atraumatic, normocephalic. Eyes PERRL. Mouth: Oral mucosa pink and moist.NECK: Supple. No cervical lymphadenopathy.EARS: Tympanic membranes visualized.HEART: S1, S2 heard. Regular rate and rhythm.LUNGS: Clear to auscultation. No rhonchi or rub.ABDOMEN: Soft. Nontender, nondistended. No rebound or guarding.BACK: No paraspinal muscle mass. No CVA tenderness appreciated.: Deferred.EXTREMITIES: No pitting edema. Good capillary refill appreciated. Power is 5/5 of upper and lowerextremities. Sensation intact with all extremities.NEURO/PSYCH: Cranial II-XII grossly intact. A&O x3. No focal neurological findings appreciated.LABORATORY DATA:WBC is 7.7, H&H 14/39.8 with platelets of 244. Sodium 129, potassium 3.5, chloride 93, CO2 22, , BUN 19, creatinine is 0.9, GFR greater than 60, troponin less than 0.01.ASSESSMENT:A 76-year-old with chest pain, rule out ACS.PLAN: 1. Chest pain: Patient will be placed on Holter monitor and serial cardiac enzymes. [facility] in the morning. Nitro for chest pain and morphine if needed. O2 support if needed. We will follow patient clinically. 2. Hyponatremia: Normal saline 0.9%, gentle hydration at 80 cc/hour. 3. Hypokalemia: Replace with potassium 40 po, and check mag and potassium tomorrow morning. 4. Diabetes mellitus type 2: On Metformin 500 once a day. We will check fasting glucose, check hemoglobin A1c tomorrow. 5. Hypertension: Continue with amlodipine 10 mg once a day. 6. Hyperlipidemia: Continue atorvastatin 40 once a day. 7. Anxiety/Depression: Continue Zoloft 25 once a day. [address] [place] [address] HISTORY AND PHYSICAL NAME: HAYLEE Forrester ROOM#: [facility]-1 DATE OF : 1945 MR#: [id number] ATTENDING PHYS: Trish Ahmadi MD [facility] [id number] ADMISSION DATE: 05/06/21 8. BPH: Continue with Tamsulosin 0.4 once a day. 9. GI prophylaxis: Protonix 40 once a day. 10. DVT prophylaxis: Put on Lovenox 40 subcu once a day. 11. Discharge planning: Home when stable. Patient likely will need Physical Therapy evaluation and Account General Manager to see patient due to concern about no electricity or running water at home.DD: Trish Ahmadi MD 05/06/21 18:30DT: NIKITA 05/07/21 08:15DS: Trish Ahmadi MD 05/14/21 10:33 3 Name Value Range Interpretation Code Description Data Alma rce(s) Supporting Document(s) ID Date Data Source [id number] 05/10/2021 08:31:00 AM EDT [facility] [address] [place] [address] PHONE: [phone] FAX: [phone] Name .................. : HAYLEE Forrester Acct Number.................. : [id number] ROOM. ................. : 110-1 MR Number ................... : [id number] Stay type ............. : O/P Discharge Date......... ... : Admit Date ......... : 05/06/21 Admit Phys .................... : AHMADI HARD Date of ....... : 1945 Family Phys ................... : J LUIS VIDA Phone .................. : [phone] Age ................................ : 76 Film# .................. .:[id number] Sex ................................. : M Unsigned transcriptions are preliminary reports and do not represent a medical or legal document CAROTID [id number] COMPLETE:05/09/21 21:16 DLA [id number] (REASON FOR PROCEDURE :SYNCOPE ULTRASOUND CAROTID DUPLEX INDICATION: Syncope COMPARISON: 01/09/2021 TECHNIQUE: Duplex imaging with Doppler and spectral analysis were used to study the carotid vessels in the neck. FINDINGS: Doppler investigation yields the following values: MAIK: 45 cm/sec peak systolic; 16 cm/sec end diastolic RCCA: 109 cm/sec peak systolic; 13 cm/sec end diastolic ICA/CCA Ratios: 0.41 cm/sec peak systolic Mild calcified plaque in the region of the carotid bifurcation. LICA: 42 cm/sec peak systolic; 14 cm/sec end diastolic LCCA: 100 cm/sec peak systolic; 17 cm/sec end diastolic ICA/CCA Ratios: 0.42 cm/sec peak systolic Mild calcified and noncalcified plaque in the carotid bifurcation. Antegrade flow in the right vertebral. Left vertebral not identified. Velocity measurements have been correlated to angiographic stenosis calculation based on distal internal carotid diameter as defined by the Society of Radiologists in Ultrasound, Consensus Conference. Radiology 2003; 229; 340-346. IMPRESSION: 1. Right internal carotid stenosis less than 50%. Unchanged. 2. Left internal carotid stenosis less than 50%. Unchanged. Page 1 of 2 [facility] [address] [place] [address] PHONE: [phone] FAX: [phone] Name .................. : HAYLEE Forrester Acct Number.................. : [id number] ROOM. ................. : 110-1 MR Number ................... : [id number] Stay type ............. : O/P Discharge Date......... ... : Admit Date ......... : 05/06/21 Admit Phys .................... : AHMADI HARD Date of ....... : 1945 Family Phys ................... : J LUIS MCPHERSON Phone .................. : [phone] Age ................................ : 76 Film# .................. .:[id number] Sex ................................. : M Unsigned transcriptions are preliminary reports and do not represent a medical or legal document [facility] [id number] COMPLETE:05/09/21 21:16 DLA [id number] (REASON FOR PROCEDURE :SYNCOPE Electronically Reviewed and Signed By Oliverio Zuleta MD , 05/10/21 08:31, JWJessi Transcribe Initials: DZ , Transcribe Date: 05/10/21 01:38, Dictation Date: Copy for: OTONIEL Boykin via fax Copy for: J LUIS LUBIN via modem Copy for: EMERGENCY DEPT via modem Copy for: 710 MED REC Page 2 of 2 Name Value Range Interpretation Code Description Data Alma rce(s) Supporting Document(s) ID Date Data Source [id number] 05/10/2021 08:27:00 [place] [address] PHONE: [phone] FAX: [phone] Name .................. : HAYLEE Forrester Acct Number.................. : [id number] ROOM. ................. : 110-1 MR Number ................... : [id number] Stay type ............. : O/P Discharge Date......... ... : Admit Date ......... : 05/06/21 Admit Phys .................... : AHMADI HARD Date of ....... : 1945 Family Phys ................... : J LUIS MIR Phone .................. : [phone] Age ................................ : 76 Film# .................. .:[id number] Sex ................................. : M Unsigned transcriptions are preliminary reports and do not represent a medical or legal document CHEST 2 VIEWS [id number] COMPLETE:05/09/21 16:59 SRG [id number] Reason for Exam: syncope FRONTAL AND LATERAL CHEST 2 VIEWS INDICATION: Syncope COMPARISON: 01/10/2019 FINDINGS: The heart is not enlarged. Pulmonary vessels are within normal limits. There is a pacemaker with atrial and ventricular leads which is unchanged. Lungs are clear. No pulmonary edema. No pleural effusions or pneumothorax. Mild anterior wedging of several mid and lower thoracic vertebral bodies unchanged. Mild kyphosis. IMPRESSION: No acute disease. Electronically Reviewed and Signed By Oliverio Zuleta MD , 05/10/21 08:27, JWJessi Transcribe Initials: CLARK , Transcribe Date: 05/09/21 22:23, Dictation Date: Copy for: OTONIEL Boykin via fax Copy for: J LUIS LUBIN via [employer] Copy for: EMERGENCY DEPT via modem Copy for: 710 MED REC Page 1 of 1 Name Value Range Interpretation Code Description Data Alma rce(s) Supporting Document(s) ID Date Data Source [id number] 05/10/2021 05:46:00 AM EDT [facility] ([facility]) Name Value Range Interpretation Code Description Data Alma rce(s) Supporting Document(s) [facility] test result [facility]) COMPREHENSIVE METABOLIC PANEL Sodium 131 meq/L 134-153 Below low normal [facility] ( [facility]) Chloride 94 meq/L 98-107 Below low normal [facility] ( [facility]) Potassium 4.3 meq/L 3.6-5.0 [facility] ([facility]) Glucose 156 mg/dL 70-99 Above high normal [facility] ([facility]) BUN 19 mg/dL 7-21 [facility] ([facility]) Co2 27 meq/L 22-30 [facility] ([facility]) Creatinine 0.6 mg/dL 0.7-1.5 Below low normal [facility] ( [facility]) BUN/Creat 32 8-27 Above high normal [facility] ([facility]) Total Protein 6.1 g/dL 6.3-8.2 Below low normal [facility] T ([facility]) Albumin 3.8 g/dL 3.9-5.0 Below low normal [facility] ( [facility]) Calcium 9.3 mg/dL 8.4-10.2 [facility] ([facility]) A/G Ratio 1.7 0.8-2.0 [facility] ([facility]) Globulin 2.3 GM/DL 2.4-3.2 Below low normal [facility] ( [facility]) Alkaline Phos 120 U/L 38-126 [facility] ([facility]) Total Bili Laboratory test result 0.2-1.3 [facility] ([facility]) SGPT/Alt 12 U/L 7-56 [facility] ([facility]) Sgot/Ast 14 U/L 5-40 [facility] ([facility]) Anion Gap 10.0 mmol/L 8.0-16.0 [facility] ([facility]) Age 76 yrs [facility] ([facility]) Non-Aa GFR Laboratory test result [facility] ([facility]) Afr Amer GFR Laboratory test result [facility] ([facility]) Male GFR Interprentation 20-49 yrs >60 mL/min Normal 50-59 yrs >56 mL/min Normal 60-69 yrs >49 mL/min Normal 70-79yrs >42 mL/min Normal 80 and above >35 mL/min Normal Female GFR Interpretation 20-39 yrs >60 mL/min Normal 40-49 yrs >58 mL/min Normal 50-59 yrs >51 mL/min Normal 60-69 yrs >45 mL/min Normal 70-79 yrs >39 mL/min Normal 80 and above >32 mL/min Normal ID Date Data Source [id number] 05/10/2021 05:46:00 AM EDT [facility] ([facility]) Name Value Range Interpretation Code Description Data Alma rce(s) Supporting Document(s) CBC W/Automated Diff Laboratory test result [facility] ([facility]) COMPLETE BLOOD COUNT WBC 5.4 10^3/uL 4.2-11.0 [facility] ([facility]) RBC 4.84 10^6/uL 4.50-6.30 [facility] ([facility]) Hematocrit 41.6 % 41.0-51.0 [facility] ([facility]) Hemoglobin 14.1 g/dL 14.0-16.0 [facility] ([facility]) MCV 86.0 fL 80.0-94.0 [facility] ([facility]) MCH 29.1 pg 27.0-34.0 [facility] ([facility]) Platelets 265 10^3/uL 150-450 [facility] ([facility]) RDW 13.2 % 11.5-14.8 [facility] ([facility]) MCHC 33.9 g/dL 31.0-36.0 [facility] ([facility]) Lymph 31.6 % 25.0-40.0 [facility] ([facility]) Neut 52.2 % 37.0-80.0 [facility] ([facility]) MPV 9.3 fL 7.4-10.4 [facility] ([facility]) [place] 11.2 % 3.0-8.0 Above high normal [facility] ([facility]) Eos 3.7 % 0.0-7.0 [facility] ([facility]) Baso 1.1 % 0.0-2.0 [facility] ([facility]) %Ig 0.2 % 0.0-0.0 Above high normal [facility] ([facility]) %NRBC 0.0 % 0.0-0.0 [facility] ([facility]) #Lymph 1.72 10^3/uL 0.60-3.40 [facility] ([facility]) #Freestone 0.61 10^3/uL 0.00-0.90 [facility] ([facility]) #Neut 2.84 10^3/uL 2.00-6.90 [facility] ([facility]) #Baso 0.06 10^3/uL 0.00-0.20 [facility] ([facility]) #Ig 0.01 10^3/uL 0.00-0.10 [facility] ([facility]) #Eos 0.20 10^3/uL 0.00-0.70 [facility] ([facility]) #NRBC 0.00 10^3/uL 0.00-0.00 [facility] ([facility]) Manual Diff Laboratory test result [facility] ([facility]) RBC Morph Laboratory test result [facility] ([facility]) ID Date Data Source [id number] 05/10/2021 05:46:00 AM EDT [facility] ([facility]) Name Value Range Interpretation Code Description Data Alma rce(s) Supporting Document(s) Laboratory test finding (navigational concept) Laboratory test result [facility] ([facility]) COMPLETE BLOOD COUNT Laboratory test finding (navigational concept) 5.4 10^3/uL 4.2-11.0 [facility] ([facility]) Laboratory test finding (navigational concept) 4.84 10^6/uL 4.50-6.30 [facility] ([facility]) Laboratory test finding (navigational concept) 14.1 g/dL 14.0-16.0 [facility] ([facility]) Laboratory test finding (navigational concept) 41.6 % 41.0-51.0 [facility] ([facility]) Laboratory test finding (navigational concept) 86.0 fL 80.0-94.0 [facility] ([facility]) Laboratory test finding (navigational concept) 29.1 pg 27.0-34.0 [facility] ([facility]) Laboratory test finding (navigational concept) 33.9 g/dL 31.0-36.0 [facility] ([facility]) Laboratory test finding (navigational concept) 13.2 % 11.5-14.8 [facility] ([facility]) Laboratory test finding (navigational concept) 265 10^3/uL 150-450 [facility] ([facility]) Laboratory test finding (navigational concept) 9.3 fL 7.4-10.4 [facility] ([facility]) Laboratory test finding (navigational concept) 52.2 % 37.0-80.0 [facility] ([facility]) Laboratory test finding (navigational concept) 11.2 % 3.0-8.0 Above high normal [facility] ([facility]) Laboratory test finding (navigational concept) 31.6 % 25.0-40.0 [facility] ([facility]) Laboratory test finding (navigational concept) 3.7 % 0.0-7.0 [facility] ([facility]) Laboratory test finding (navigational concept) 1.1 % 0.0-2.0 [facility] ([facility]) Laboratory test finding (navigational concept) 0.2 % 0.0-0.0 Above high normal [facility] ([facility] Rushing [facility]) Laboratory test finding (navigational concept) 2.84 10^3/uL 2.00-6.90 [facility] ([facility]) Laboratory test finding (navigational concept) 1.72 10^3/uL 0.60-3.40 [facility] ([facility]) Laboratory test finding (navigational concept) 0.0 % 0.0-0.0 [facility] ([facility]) Laboratory test finding (navigational concept) 0.61 10^3/uL 0.00-0.90 [facility] ([facility]) Laboratory test finding (navigational concept) 0.20 10^3/uL 0.00-0.70 [facility] ([facility]) Laboratory test finding (navigational concept) 0.01 10^3/uL 0.00-0.10 [facility] ([facility]) Laboratory test finding (navigational concept) 0.00 10^3/uL 0.00-0.00 [facility] ([facility]) Laboratory test finding (navigational concept) 0.06 10^3/uL 0.00-0.20 [facility] ([facility]) Laboratory test finding (navigational concept) Laboratory test result [facility] ([facility]) Laboratory test finding (navigational concept) Laboratory test result [facility] ([facility]) ID Date Data Source [id number] 05/10/2021 05:46:00 AM EDT [facility] (Paul Rushing MD) Name Value Range Interpretation Code Description Data Alma rce(s) Supporting Document(s) Laboratory test finding (navigational concept) Laboratory test result [facility] (Paul Rushing MD) COMPREHENSIVE METABOLIC PANEL Laboratory test finding (navigational concept) 131 meq/L 1 34-153 Below low normal [facility] (Paul Rushing MD) Laboratory test finding (navigational concept) 4.3 meq/L 3.6-5.0 [facility] (Paul Rushing MD) Laboratory test finding (navigational concept) 27 meq/L 22-30 [facility] (Paul Rushing MD) Laboratory test finding (navigational concept) 94 meq/L 98-107 Below low normal [facility] (Paul Rushing MD) Laboratory test finding (navigational concept) 156 mg/dL 7 0-99 Above high normal [facility] (Paul Rushing MD) Laboratory test finding (navigational concept) 19 mg/dL 7-21 [facility] (Paul Rushing MD) Laboratory test finding (navigational concept) 32 8-27 Above high normal [facility] (Paul Rushing MD) Laboratory test finding (navigational concept) 0.6 mg/dL 0 .7-1.5 Below low normal [facility] (Paul Rushing MD) Laboratory test finding (navigational concept) 2.3 GM/DL 2 .4-3.2 Below low normal [facility] (Paul Rushing MD) Laboratory test finding (navigational concept) 6.1 g/dL 6 .3-8.2 Below low normal [facility] (Paul Rushing MD) Laboratory test finding (navigational concept) 3.8 g/dL 3 .9-5.0 Below low normal [facility] (Paul Rushing MD) Laboratory test finding (navigational concept) 1.7 0.8-2.0 [facility] (Paul Rushing MD) Laboratory test finding (navigational concept) 9.3 mg/dL 8.4-10.2 [facility] (Paul Rushing MD) Laboratory test finding (navigational concept) Laboratory test resu lt 0.2-1.3 [facility] (Paul Rushing MD) Laboratory test finding (navigational concept) 14 U/L 5-40 [facility] (Paul Rushing MD) Laboratory test finding (navigational concept) 120 U/L 38-126 [facility] (Paul Rushing MD) Laboratory test finding (navigational concept) 12 U/L 7-56 [facility] (Paul Rushing MD) Laboratory test finding (navigational concept) 10.0 mmol/L 8.0-16.0 [facility] (Paul Rushing MD) Laboratory test finding (navigational concept) 76 yrs [facility] (Paul Rushing MD) Laboratory test finding (navigational concept) Laboratory test result [facility] (Paul Rushing MD) Laboratory test finding (navigational concept) Laboratory test result [facility] (Pual Rushing MD) Male GFR Interprentation 20-49 yrs >60 mL/min Normal 50-59 yrs >56 mL/min Normal 60-69 yrs >49 mL/min Normal 70-79yrs >42 mL/min Normal 80 and above >35 mL/min Normal Female GFR Interpretation 20-39 yrs >60 mL/min Normal 40-49 yrs >58 mL/min Normal 50-59 yrs >51 mL/min Normal 60-69 yrs >45 mL/min Normal 70-79 yrs >39 mL/min Normal 80 and above >32 mL/min Normal ID Date Data Source [id number] 05/10/2021 07:18:00 AM EDT [facility] Name Value Range Interpretation Code Description Data Alma rce(s) Supporting Document(s) COMPREHENSIVE METABOLIC PANEL [facility] COMPREHENSIVE METABOLIC PANEL Sodium [Moles/volume] in Serum or Plasma 131 mEq/L 134 - 153 L [facility] Potassium [Moles/volume] in Serum or Plasma 4.3 mEq/L 3.6 - 5.0 [facility] Chloride [Moles/volume] in Serum or Plasma 94 mEq/L 98 - 107 L [facility] Carbon dioxide, total [Moles/volume] in Serum or Plasma 27 MEQ/L 22 - 30 [facility] Glucose [Mass/volume] in Serum or Plasma 156 MG/DL 70 - 99 H [facility] B[facility] 19 [facility] 7 - [facility] Creat[facility] [Mass/volume] in Serum or Plasma 0.6 MG/DL 0.7 - 1.5 L [facility] BUN/CREAT 32 8 - 27 H [facility] Protein [Mass/volume] in Serum or Plasma 6.1 G/DL 6.3 - 8.2 L [facility] Albumin [Mass/volume] in Serum or Plasma 3.8 G/DL 3.9 - 5.0 L [facility] Globulin [Mass/volume] in Serum by calculation 2.3 GM/DL 2.4 - 3.2 L [facility] A/G RATIO 1.7 0.8 - 2.0 [facility] Calcium [Mass/volume] in Serum or Plasma 9.3 MG/DL 8.4 - 10.2 [facility] Bilirubin.total [Mass/volume] in Serum or Plasma <0.7 MG/DL 0.2 - 1.3 [facility] Alkaline phosphatase [Enzymatic activity/volume] in Serum or Plasma 120 U/L 38 - 126 [facility] Aspartate aminotransferase [Enzymatic activity/volume] in Serum or Plasma 14 U/L 5 - 40 [facility] Alanine aminotransferase [Enzymatic activity/volume] in Seru m or Plasma 12 U/L 7 - 56 [facility] Anion gap 3 in Serum or Plasma 10.0 mmol/L 8.0 - 16.0 [facility] AGE [address] [facility] NON-AA GFR >60 mL/min [facility] AFR AMER GFR >60 mL/min [facility] Male GFR In terprentation 20-49 yrs >60 mL/min Normal 50-59 yrs >56 mL/min Normal 60-69 yrs >49 mL/min Normal 70-79yrs >42 mL/min Normal 80 and above >35 mL/min Normal Female GFR Interpretation 20-39 yrs >60 mL/min Normal 40-49 yrs >58 mL/min Normal 50-59 yrs >51 mL/min Normal 60-69 yrs >45 mL/min Normal 70-79 yrs >39 mL/min Normal 80 and above >32 mL/min Normal ID Date Data Source [id number] 05/10/2021 06:46:00 AM EDT [facility] Name Value Range Interpretation Code Description Data Alma rce(s) Supporting Document(s) CBC W/AUTOMATED DIFF [facility] COMPLETE BLOOD COUNT Leukocytes [#/volume] in Blood by Automated count 5.4 10^3/uL 4.2 - 1 1.0 [facility] Erythrocytes [#/volume] in Blood by Automated count 4.84 10^6/uL 4. 50 - 6.30 [facility] Hemoglobin [Mass/volume] in Blood 14.1 g/dL 14.0 - 16.0 [facility] Hematocrit [Volume Fraction] of Blood by Automated count 41.6 % 4 1.0 - 51.0 [facility] Erythrocyte mean corpuscular volume [Entitic volume] by Auto mated count 86.0 fL 80.0 - 94.0 [facility] Erythrocyte mean corpuscular hemoglobin [Entitic mass] by Automated count 29.1 pg 27.0 - 34.0 [facility] Erythrocyte mean corpuscular hemoglobin concentration [Mass/volume] by Automated count 33.9 g/dL 31.0 - 36.0 [facility] Erythrocyte distribution width [Ratio] by Automated count 13.2 % 11.5 - 14.8 [facility] Platelets [#/volume] in Blood by Automated count 265 10^3/uL 150 - 45 0 [facility] Platelet mean volume [Entitic volume] in Blood by Automated count 9.3 fL 7.4 - 10.4 [facility] Neutrophils/100 leukocytes in Blood by Automated count 52.2 % 37. 0 - 80.0 [facility] Lymphocytes/100 leukocytes in Blood by Manual count 31.6 % 25.0 - 40.0 [facility] Monocytes/100 leukocytes in Blood by Automated count 11.2 % 3.0 - 8.0 H [facility] Eosinophils/100 leukocytes in Blood by Automated count 3.7 % 0.0 - 7.0 [facility] Basophils/100 leukocytes in Blood by Automated count 1.1 % 0.0 - 2.0 [facility] %IG 0.2 % 0.0 - 0.0 [facility] %NR[facility] 0.0 % 0.0 - 0.0 [facility] Neutrophils [#/volume] in Blood by Automated count 2.84 10^3/uL 2.00 - 6.90 [facility] Lymphocytes [#/volume] in Blood by Automated count 1.72 10^3/uL 0.60 - 3.40 [facility] Monocytes [#/volume] in Blood by Automated count 0.61 10^3/uL 0.00 - 0.90 [facility] Eosinophils [#/volume] in Blood by Automated count 0.20 10^3/uL 0.00 - 0.70 [facility] Basophils [#/volume] in Blood by Automated count 0.06 10^3/uL 0.00 - 0.20 [facility] #IG 0.01 10^3/uL 0.00 - 0.10 [facility] #NRBC 0.00 10^3/uL 0.00 - 0.00 [facility] MANUAL DIFF NOT INDICATED [facility] RBC MORPH NOT INDICATED [facility] ID Date Data Source [id number] 05/09/2021 09:15:00 PM EDT [facility] ([facility]) Name Value Range Interpretation Code Description Data Alma rce(s) Supporting Document(s) Troponin T.cardiac [Mass/volume] in Serum or Plasma Laborato ry test result 0.00-0.10 [facility] ([facility]) TROPONIN T 0.1 ng/ml Recommended as the clinical th reshold value for Troponin T. ID Date Data Source [id number] 05/09/2021 09:15:00 PM EDT [facility] (Paul Rushing MD) Name Value Range Interpretation Code Description Data Alma rce(s) Supporting Document(s) Troponin T.cardiac [Mass/volume] in Serum or Plasma Laborato ry test result 0.00-0.10 [facility] (Paul Rushing MD) TROPONIN T 0.1 ng/ml Recommended as the clinical th reshold value for Troponin T. ID Date Data Source [id number] 05/09/2021 09:45:00 PM EDT [facility] Name Value Range Interpretation Code Description Data Alma rce(s) Supporting Document(s) TROPONIN T <0.01 NG/ML 0.00 - 0.10 [facility] TROPONIN T0.1 ng/ml Recommended as the c linical threshold value forTroponin T. ID Date Data Source [id number] 05/09/2021 08:35:00 [place] [address] RESPIRATORY CARE REPORT ==== ---------NAME------- NUMBER SEX AGE ADMIT DISC. XRAY# F/C KHARI Forrester [id number] M 76 05/06/21 [id number] O/P DATE OF : 1945 M/R# [id number] #: [id number] [id number] LOCATION: EMERGENCY DEPT EKG [id number] COMP LETE:05/09/21 15:33 [facility] [id number] PHYSICIAN: DAIANA FELDMAN Name Value Range Interpretation Code Description Data Alma rce(s) Supporting Document(s) ID Date Data Source [id number] 05/09/2021 07:41:00 PM EDT [facility] [address] [place] [address] PHONE: [phone] FAX: [phone] Name .................. : HAYLEE Forrester Acct Number.................. : [id number] ROOM. ................. : 110-1 MR Number ................... : [id number] Stay type ............. : O/P Discharge Date......... ... : Admit Date ......... : 05/06/21 Admit Phys .................... : DAIANA ORDAZ Date of ....... : 1945 Family Phys ................... : J LUIS VIDA Phone .................. : [phone] Age ................................ : 76 Film# .................. .:[id number] Sex ................................. : M Unsigned transcriptions are preliminary reports and do not represent a medical or legal document CT HEAD W/O CONTRAST [id number] COMPLETE:05/09/21 12:27 ALEJANDRA [id number] (REASON FOR PROCEDURE :SYNCOPE CT BRAIN WI THOUT IV CONTRAST INDICATION: Syncope COMPARISON: 03/13/2021 CONTRAST: None One or more of the following dose reduction techniques were utilized in effectively lowering the radiation dose for this examination: Automated Exposure Control, Adjustment of the mA and/or kV according to patient size, or Iterative Reconstruction. FINDINGS: Ventricles and sulci are moderately prominent within normal limits for the patient's age. Miller white differentiation is intact. No extra-axial collection or intracranial hemorrhage. No indication of acute or prior ischemic CVA. Patchy decreased density is seen in the periventricular and subcortical white matter which is nonspecific but most likely due to chronic small vessel ischemic change. This is unchanged. No mass or mass effect. Calvarium and skull base are within normal limits. To the extent included sinuses are clear. IMPRESSION: Atrophy and chronic small vessel ischemic change, unchanged. No new or acute abnormalities. Electronically Reviewed and Signed By Oliverio Zuleta MD , 05/09/21 19:41, JWJessi Transcribe Initials: CLARK , Transcribe Date: 05/09/21 18:15, Dictation Date: Page 1 of 2 [place] [address] PHONE: [phone] FAX: [phone] Name .................. : RUBIOABHINAVKEENA MAGDY Forrester Acct Number.................. : [id number] ROOM. ................. : 110-1 MR Number ................... : [id number] Stay type ............. : O/P Discharge Date......... ... : Admit Date ......... : 05/06/21 Admit Phys .................... : DAIANA HARD Date of ....... : 1945 Family Phys ................... : J LUIS MCPHERSON Phone .................. : [phone] Age ................................ : 76 Film# .................. .:[id number] Sex ................................. : M Unsigned transcriptions are preliminary reports and do not represent a medical or legal document CT HEAD W/O CONTRAST [id number] COMPLETE:05/09/21 12:27 ALEJANDRA [id number] (REASON FOR PROCEDURE :SYNCOPE Copy for: OTONIEL Boykin via fax Copy for: J LUIS LUBIN via modem Copy for: EMERGENCY DEPT via modem Copy for: Felipa MED REC Page 2 of 2 Name Value Range Interpretation Code Description Data Alma rce(s) Supporting Document(s) ID Date Data Source [id number] 05/09/2021 03:20:00 PM EDT [facility] ([facility]) Name Value Range Interpretation Code Description Data Alma rce(s) Supporting Document(s) Troponin T.cardiac [Mass/volume] in Serum or Plasma Laborato ry test result 0.00-0.10 [facility] ([facility]) TROPONIN T 0.1 ng/ml Recommended as the clinical th reshold value for Troponin T. ID Date Data Source [id number] 05/09/2021 03:20:00 PM EDT [facility] (Paul Rushing MD) Name Value Range Interpretation Code Description Data Alma rce(s) Supporting Document(s) Troponin T.cardiac [Mass/volume] in Serum or Plasma Laborato ry test result 0.00-0.10 [facility]Paul [facility] TROPONIN T 0.1 ng/ml Recommended as the clinical th reshold value for Troponin T. ID Date Data Source [id number] 05/09/2021 04:10:00 PM EDT [facility] Name Value Range Interpretation Code Description Data Alma rce(s) Supporting Document(s) TROPONIN T <0.01 NG/ML 0.00 - 0.10 [facility] TROPONIN T0.1 ng/ml Recommended as the c linical threshold value forTroponin T. ID Date Data Source [id number] 05/09/2021 05:12:00 AM EDT [facility] ([facility]) Name Value Range Interpretation Code Description Data Alma rce(s) Supporting Document(s) Magnesium [Mass/volume] in Serum or Plasma 1.7 mg/dL 1.7-2.2 [facility] ([facility]) Troponin T.cardiac [Mass/volume] in Serum or Plasma Laborato ry test result 0.00-0.10 [facility] ([facility]) TROPONIN T 0.1 ng/ml Recommended as the clinical th reshold value for Troponin T. ID Date Data Source [id number] 05/09/2021 05:12:00 AM EDT [facility] ([facility]) Name Value Range Interpretation Code Description Data Alma rce(s) Supporting Document(s) Comprehensive [employer] Laboratory test result [facility] ([facility]) COMPREHENSIVE METABOLIC PANEL Sodium 130 meq/L 134-153 Below low normal [facility] ( [facility]) Chloride 95 meq/L 98-107 Below low normal [facility] ( [facility]) Potassium 3.9 meq/L 3.6-5.0 [facility] ([facility]) BUN 15 mg/dL 7-21 [facility] ([facility]) Glucose 146 mg/dL 70-99 Above high normal [facility] ([facility]) Co2 24 meq/L 22-30 [facility] ([facility]) Total Protein 5.9 g/dL 6.3-8.2 Below low normal [facility] ([facility]) BUN/Creat 25 8-27 [facility] ([facility]) Creatinine 0.6 mg/dL 0.7-1.5 Below low normal [facility] ( [facility]) Globulin 2.1 GM/DL 2.4-3.2 Below low normal [facility] ( [facility]) Albumin 3.8 g/dL 3.9-5.0 Below low normal [facility] ( [facility]) A/G Ratio 1.8 0.8-2.0 [facility] ([facility]) Calcium 8.9 mg/dL 8.4-10.2 [facility] ([facility]) Total Bili Laboratory test result 0.2-1.3 [facility] ([facility]) Alkaline Phos 119 U/L 38-126 [facility] ([facility]) Sgot/Ast 13 U/L 5-40 [facility] ([facility]) Age 76 yrs [facility] ([facility]) Anion Gap 11.0 mmol/L 8.0-16.0 [facility] SGPT/Alt 11 U/L 7-56 [facility] ([facility]) Afr Amer GFR Laboratory test result [facility] ([facility]) Male GFR Interprentation 20-49 yrs >60 mL/min Normal 50-59 yrs >56 mL/min Normal 60-69 yrs >49 mL/min Normal 70-79yrs >42 mL/min Normal 80 and above >35 mL/min Normal Female GFR Interpretation 20-39 yrs >60 mL/min Normal 40-49 yrs >58 mL/min Normal 50-59 yrs >51 mL/min Normal 60-69 yrs >45 mL/min Normal 70-79 yrs >39 mL/min Normal 80 and above >32 mL/min Normal Non-Aa GFR Laboratory test result [facility] ([facility]) ID Date Data Source [id number] 05/09/2021 05:12:00 AM EDT [facility] ([facility]) Name Value Range Interpretation Code Description Data Alma rce(s) Supporting Document(s) CBC W/Automated Diff Laboratory test result [facility] ([facility]) COMPLETE BLOOD COUNT WBC 5.7 10^3/uL 4.2-11.0 [facility] ([facility]) RBC 4.73 10^6/uL 4.50-6.30 [facility] ([facility]) Hematocrit 40.1 % 41.0-51.0 Below low normal [facility] ( [facility]) Hemoglobin 14.0 g/dL 14.0-16.0 [facility] ([facility]) MCH 29.6 pg 27.0-34.0 [facility] ([facility]) MCHC 34.9 g/dL 31.0-36.0 [facility] ([facility]) MCV 84.8 fL 80.0-94.0 [facility] ([facility]) RDW 12.8 % 11.5-14.8 [facility] ([facility]) Platelets 261 10^3/uL 150-450 [facility] ([facility]) Neut 50.3 % 37.0-80.0 [facility] ([facility]) MPV 9.6 fL 7.4-10.4 [facility] ([facility]) Lymph 34.1 % 25.0-40.0 [facility] ([facility]) [place] 10.4 % 3.0-8.0 Above high normal [facility] ([facility]) Eos 3.9 % 0.0-7.0 [facility] ([facility]) Baso 0.9 % 0.0-2.0 [facility] ([facility]) %NRBC 0.0 % 0.0-0.0 [facility] ([facility]) %Ig 0.4 % 0.0-0.0 Above high normal [facility] ([facility]) #Neut 2.87 10^3/uL 2.00-6.90 [facility] ([facility]) #[place] 0.59 10^3/uL 0.00-0.90 [facility] ([facility]) #Lymph 1.94 10^3/uL 0.60-3.40 [facility] ([facility]) #Eos 0.22 10^3/uL 0.00-0.70 [facility] ([facility]) #Baso 0.05 10^3/uL 0.00-0.20 [facility] ([facility]) #Ig 0.02 10^3/uL 0.00-0.10 [facility] ([facility]) #NRBC 0.00 10^3/uL 0.00-0.00 [facility] ([facility]) RBC Morph Laboratory test result [facility] ([facility]) Manual Diff Laboratory test result [facility] ([facility]) ID Date Data Source [id number] 05/09/2021 05:12:00 AM EDT [facility] ([facility] Rushing [facility]) Name Value Range Interpretation Code Description Data Alma rce(s) Supporting Document(s) Magnesium [Mass/volume] in Serum or Plasma 1.7 mg/dL 1.7-2.2 [facility] (Paul Rushing MD) Troponin T.cardiac [Mass/volume] in Serum or Plasma Laborato ry test result 0.00-0.10 [facility] (Paul Rushing MD) TROPONIN T 0.1 ng/ml Recommended as the clinical th reshold value for Troponin T. ID Date Data Source [id number] 05/09/2021 05:12:00 AM EDT [facility] ([facility] Rushing [facility]) Name Value Range Interpretation Code Description Data Alma rce(s) Supporting Document(s) Laboratory test finding (navigational concept) Laboratory test result [facility] ([facility] Rushing MD) COMPREHENSIVE METABOLIC PANEL Laboratory test finding (navigational concept) 130 meq/L 1 34-153 Below low normal [facility] (Paul Rushing MD) Laboratory test finding (navigational concept) 95 meq/L 98-107 Below low normal [facility] (Paul Rushing MD) Laboratory test finding (navigational concept) 3.9 meq/L 3.6-5.0 [facility] ([facility] Rushing MD) Laboratory test finding (navigational concept) 24 meq/L 22-30 [facility] ([facility] Rushing [facility]) Laboratory test finding (navigational concept) 146 mg/dL 7 0-99 Above high normal [facility] ([facility] Rushing [facility]) Laboratory test finding (navigational concept) 25 8-27 [facility] ([facility]ushing [facility]) Laboratory test finding (navigational concept) 15 mg/dL 7-21 [facility] ([facility]ushing [facility]) Laboratory test finding (navigational concept) 0.6 mg/dL 0 .7-1.5 Below low normal [facility] ([facility] Rushing [facility]) Laboratory test finding (navigational concept) 3.8 g/dL 3 .9-5.0 Below low normal [facility] ([facility]) Laboratory test finding (navigational concept) 5.9 g/dL 6 .3-8.2 Below low normal [facility] ([facility]) Laboratory test finding (navigational concept) 1.8 0.8-2.0 [facility] ([facility]ushing [facility]) Laboratory test finding (navigational concept) 2.1 GM/DL 2 .4-3.2 Below low normal [facility] ([facility] Rushing [facility]) Laboratory test finding (navigational concept) 8.9 mg/dL 8.4-10.2 [facility] ([facility] Rushing [facility]) Laboratory test finding (navigational concept) Laboratory test resu lt 0.2-1.3 [facility] ([facility]) Laboratory test finding (navigational concept) 119 U/L 38-126 [facility] ([facility]) Laboratory test finding (navigational concept) 11 U/L 7-56 [facility] ([facility]ushing [facility]) Laboratory test finding (navigational concept) 11.0 mmol/L 8.0-16.0 [facility] ([facility]) Laboratory test finding (navigational concept) 13 U/L 5-40 [facility] ([facility] Rushing [facility]) Laboratory test finding (navigational concept) 76 yrs [facility] ([facility]) Laboratory test finding (navigational concept) Laboratory test result [facility] ([facility]) Laboratory test finding (navigational concept) Laboratory test result [facility] ([facility]) Male GFR Interprentation 20-49 yrs >60 mL/min Normal 50-59 yrs >56 mL/min Normal 60-69 yrs >49 mL/min Normal 70-79yrs >42 mL/min Normal 80 and above >35 mL/min Normal Female GFR Interpretation 20-39 yrs >60 mL/min Normal 40-49 yrs >58 mL/min Normal 50-59 yrs >51 mL/min Normal 60-69 yrs >45 mL/min Normal 70-79 yrs >39 mL/min Normal 80 and above >32 mL/min Normal ID Date Data Source [id number] 05/09/2021 05:12:00 AM EDT [facility] ([facility]) Name Value Range Interpretation Code Description Data Alma rce(s) Supporting Document(s) Laboratory test finding (navigational concept) Laboratory test result [facility] ([facility] R[facility]) COMPLETE BLOOD COUNT Laboratory test finding (navigational concept) 5.7 10^3/uL 4.2-11.0 [facility] ([facility]ushing [facility]) Laboratory test finding (navigational concept) 40.1 % 4 1.0-51.0 Below low normal [facility] ([facility] Rushing [facility]) Laboratory test finding (navigational concept) 14.0 g/dL 14.0-16.0 [facility] ([facility]) Laboratory test finding (navigational concept) 4.73 10^6/uL 4.50-6.30 [facility] ([facility]) Laboratory test finding (navigational concept) 84.8 fL 80.0-94.0 [facility] ([facility]) Laboratory test finding (navigational concept) 29.6 pg 27.0-34.0 [facility] ([facility]) Laboratory test finding (navigational concept) 12.8 % 11.5-14.8 [facility] ([facility]) Laboratory test finding (navigational concept) 34.9 g/dL 31.0-36.0 [facility] ([facility]) Laboratory test finding (navigational concept) 261 10^3/uL 150-450 [facility] ([facility]) Laboratory test finding (navigational concept) 9.6 fL 7.4-10.4 [facility] ([facility]) Laboratory test finding (navigational concept) 34.1 % 25.0-40.0 [facility] ([facility]) Laboratory test finding (navigational concept) 10.4 % 3.0-8.0 Above high normal [facility] ([facility]) Laboratory test finding (navigational concept) 50.3 % 37.0-80.0 [facility] ([facility]) Laboratory test finding (navigational concept) 3.9 % 0.0-7.0 [facility] ([facility]) Laboratory test finding (navigational concept) 0.9 % 0.0-2.0 [facility] ([facility]) Laboratory test finding (navigational concept) 2.87 10^3/uL 2.00-6.90 [facility] ([facility] Rushing [facility]) Laboratory test finding (navigational concept) 0.0 % 0.0-0.0 [facility] ([facility]) Laboratory test finding (navigational concept) 0.4 % 0.0-0.0 Above high normal [facility] ([facility] R[facility]) Laboratory test finding (navigational concept) 1.94 10^3/uL 0.60-3.40 [facility] ([facility]) Laboratory test finding (navigational concept) 0.59 10^3/uL 0.00-0.90 [facility] ([facility]) Laboratory test finding (navigational concept) 0.05 10^3/uL 0.00-0.20 [facility] ([facility]) Laboratory test finding (navigational concept) 0.22 10^3/uL 0.00-0.70 [facility] ([facility] Rushing [facility]) Laboratory test finding (navigational concept) 0.02 10^3/uL 0.00-0.10 [facility] ([facility]) Laboratory test finding (navigational concept) Laboratory test result [facility] ([facility]) Laboratory test finding (navigational concept) 0.00 10^3/uL 0.00-0.00 [facility] ([facility] Rushing [facility]) Laboratory test finding (navigational concept) Laboratory test result [facility] ([facility] Rushing [facility]) ID Date Data Source [id number] 05/09/2021 12:03:[address] [facility] Name Value Range Interpretation Code Description Data Alma rce(s) Supporting Document(s) TROPONIN T <0.01 NG/ML 0.00 - 0.10 [facility] TROPONIN T0.1 ng/ml Recommended as the c linical threshold value forTroponin T. ID Date Data Source [id number] 05/09/2021 11:56:00 AM EDT [facility] Name Value Range Interpretation Code Description Data Alma rce(s) Supporting Document(s) Magnesium [Mass/volume] in Serum or Plasma 1.7 MG/DL 1.7 - 2.2 [facility] ID Date Data Source [id number] 05/09/2021 06:40:00 AM EDT [facility] Name Value Range Interpretation Code Description Data Alma e(s) Supporting Document(s) COMPREHENSIVE METABOLIC PANEL [facility] COMPREHENSIVE METABOLIC PANEL Sodium [Moles/volume] in Serum or Plasma 130 mEq/L 134 - 153 L [facility] Potassium [Moles/volume] in Serum or Plasma 3.9 mEq/L 3.6 - 5.0 [facility] Chloride [Moles/volume] in Serum or Plasma 95 mEq/L 98 - 107 L [facility] Carbon dioxide, total [Moles/volume] in Serum or Plasma 24 MEQ/L 22 - 30 [facility] Glucose [Mass/volume] in Serum or Plasma 146 MG/DL 70 - 99 H [facility] BUN 15 [facility]DL 7 - [facility] Creat[facility] [Mass/volume] in Serum or Plasma 0.6 MG/DL 0.7 - 1.5 L [facility] BUN/CREAT 25 8 - 27 [facility] al Protein [Mass/volume] in Serum or Plasma 5.9 G/DL 6.3 - 8.2 L [facility] Albumin [Mass/volume] in Serum or Plasma 3.8 G/DL 3.9 - 5.0 L [facility] Globulin [Mass/volume] in Serum by calculation 2.1 GM/DL 2.4 - 3.2 L [facility] A/G RATIO 1.8 0.8 - 2.0 [facility] Calcium [Mass/volume] in Serum or Plasma 8.9 MG/DL 8.4 - 10.2 [facility] Bilirubin.total [Mass/volume] in Serum or Plasma <0.7 MG/DL 0.2 - 1.3 [facility] Alkaline phosphatase [Enzymatic activity/volume] in Serum or Plasma 119 U/L 38 - 126 [facility] Aspartate aminotransferase [Enzymatic activity/volume] in Serum or Plasma 13 U/L 5 - 40 [facility] Alanine aminotransferase [Enzymatic activity/volume] in Seru m or Plasma 11 U/L 7 - 56 [facility] Anion gap 3 in Serum or Plasma 11.0 mmol/L 8.0 - 16.0 [facility] AGE [address] [facility] NON-AA GFR >60 mL/min [facility] AFR AMER GFR >60 mL/min [facility] Male GFR In terprentation 20-49 yrs >60 mL/min Normal 50-59 yrs >56 mL/min Normal 60-69 yrs >49 mL/min Normal 70-79yrs >42 mL/min Normal 80 and above >35 mL/min Normal Female GFR Interpretation 20-39 yrs >60 mL/min Normal 40-49 yrs >58 mL/min Normal 50-59 yrs >51 mL/min Normal 60-69 yrs >45 mL/min Normal 70-79 yrs >39 mL/min Normal 80 and above >32 mL/min Normal ID Date Data Source [id number] 05/09/2021 06:07:00 AM EDT [facility] Name Value Range Interpretation Code Description Data Alma rce(s) Supporting Document(s) CBC W/AUTOMATED DIFF [facility] COMPLETE BLOOD COUNT Leukocytes [#/volume] in Blood by Automated count 5.7 10^3/uL 4.2 - 1 1.0 [facility] Erythrocytes [#/volume] in Blood by Automated count 4.73 10^6/uL 4. 50 - 6.30 [facility] Hemoglobin [Mass/volume] in Blood 14.0 g/dL 14.0 - 16.0 [facility] Hematocrit [Volume Fraction] of Blood by Automated count 40.1 % 4 1.0 - 51.0 L [facility] Erythrocyte mean corpuscular volume [Entitic volume] by Auto mated count 84.8 fL 80.0 - 94.0 [facility] Erythrocyte mean corpuscular hemoglobin [Entitic mass] by Automated count 29.6 pg 27.0 - 34.0 [facility] Erythrocyte mean corpuscular hemoglobin concentration [Mass/volume] by Automated count 34.9 g/dL 31.0 - 36.0 [facility] Erythrocyte distribution width [Ratio] by Automated count 12.8 % 11.5 - 14.8 [facility] Platelets [#/volume] in Blood by Automated count 261 10^3/uL 150 - 45 0 [facility] Platelet mean volume [Entitic volume] in Blood by Automated count 9.6 fL 7.4 - 10.4 [facility] Neutrophils/100 leukocytes in Blood by Automated count 50.3 % 37. 0 - 80.0 [facility] Lymphocytes/100 leukocytes in Blood by Manual count 34.1 % 25.0 - 40.0 [facility] Monocytes/100 leukocytes in Blood by Automated count 10.4 % 3.0 - 8.0 H [facility] Eosinophils/100 leukocytes in Blood by Automated count 3.9 % 0.0 - 7.0 [facility] Basophils/100 leukocytes in Blood by Automated count 0.9 % 0.0 - 2.0 [facility] %IG 0.4 % 0.0 - 0.0 [facility] 0.0 % 0.0 - 0.0 [facility] Neutrophils [#/volume] in Blood by Automated count 2.87 10^3/uL 2.00 - 6.90 [facility] Lymphocytes [#/volume] in Blood by Automated count 1.94 10^3/uL 0.60 - 3.40 [facility] Monocytes [#/volume] in Blood by Automated count 0.59 10^3/uL 0.00 - 0.90 [facility] Eosinophils [#/volume] in Blood by Automated count 0.22 10^3/uL 0.00 - 0.70 [facility] Basophils [#/volume] in Blood by Automated count 0.05 10^3/uL 0.00 - 0.20 [facility] #IG 0.02 10^3/uL 0.00 - 0.10 [facility] #NRBC 0.00 10^3/uL 0.00 - 0.00 [facility] MANUAL DIFF NOT INDICATED [facility] RBC MORPH NOT INDICATED [facility]ital ID Date Data Source [id number] 05/08/2021 12:11:00 [place] [address] CONSULTATIONNAME: HAYLEE Forrester ROOM#: [id number] OF : 1945 MR#: [id number] PHYS: Trish Ahmadi MD DATE: 05/06/21REASON FOR CONSULTATION: This is a 76-year-old white male who presented with chest pain.HISTORY OF PRESENT ILLNESS:This patient has known permanent pacemaker. He came to the emergency room for weakness, possiblefall from the commode. In the emergency room, he complained of chest pain. He has previous historyof chest pain and previous work up for chest pain was negative. Today, the patient does not complainof chest pain, he is just is weak, has tiredness and fatigue. He claims he does not have a place to go orlive.REVIEW OF SYSTEMS:CONSTITUTIONAL: The patient reports no anorexia, fever, night sweats, systemic illness, or recent weightgain/loss.HEAD: No head trauma or headaches.EYES: No blurred or double vision.ENT: No hearing loss, epistaxis, dysphagia, or sinus congestion.RESPIRATORY: No cough, CROW, wheezing, hemoptysis, sputum production, or SOB.CARDIOVASCULAR: No chest pain, rapid or irregular heartbeat, orthopnea, PND, or lower extremityedema.GI: No nausea, vomiting, abdominal pain, or change in bowel habits.: No pain with urination, urgency or frequency, blood in urine, difficulty starting or stopping urinarystream, urinary infection, stones, or cysts.MUSCULOSKELETAL: No arthritis, joint swelling, or joint stiffness.NEUROLOGIC: No dizziness, syncope, or weakness.ENDOCRINE: No excessive urination or excessive thirst.PERSONAL HISTORY:Nonsmoker.PAST SURGICAL HISTORY:Patient has history of lumbar disc surgery, history of permanent pacemaker, history of diabetes,hypertension, hyponatremia, history of PE, history of syncope.MEDICATIONS:1. Amlodipine 10 mg daily2. Lipitor 40 mg daily3. Metformin 500 mg daily4. Sertraline 25 mg daily [address] [place] [address] CONSULTATIONNAME: HAYLEE Forrester ROOM#: 110-1DATE OF : 1945 MR#: [id number] PHYS: Trish Ahmadi [facility] [id number] DATE: 05/06/21 5. Flomax 0.4 mg dailyPHYSICAL EXAMINATION:GENERAL: Moderately-built.VITAL SIGNS: Blood pressure is 130/80. Pulse was 70.HEENT: Head is normal.NECK: Supple.HEART: Regular sinus rhythm. No murmur or gallop.LUNGS: Clear with no rales or rhonchi.ABDOMEN: Soft and nontender. No visceromegaly.EXTREMITIES: Normal. Per ipheral pulses are palpable.NEUROLOGICAL: Normal.IMPRESSION/PLAN:Patient's chest pain is atypical. He is tender in the sternum also, possible costochondritis. He does nothave any acute coronary event. I would be glad to perform an outpatient nuclear stress test withLexiscan to evaluate for myocardial arrhythmia.DD: Paul Rushing MD, 05/07/21 09:36DT: DULCE 05/08/21 00:10DS: Paul Rushing MD, PC 05/08/21 09:38 2 Name Value Range Interpretation Code Description Data Alma rce(s) Supporting Document(s) ID Date Data Source [id number] 05/08/2021 07:41:00 [place] [address] RESPIRATORY CARE REPORT ==== ---------NAME------- NUMBER SEX AGE ADMIT DISC. XRAY# F/C KHARI Forrester [id number] M 76 05/06/21 [id number] MB4 O/P DATE OF : 1945 M/R# [id number] #: [id number] 110-1 LOCATION: EMERGENCY DEPT EKG [id number] COMP LETE:05/07/21 04:21 [facility] [id number] PHYSICIAN: DAIANA ORDAZ Name Value Range Interpretation Code Description Data Alma rce(s) Supporting Document(s) ID Date Data Source [id number] 05/08/2021 07:40:00 AM EDT [facility] [address] [place] [address] RESPIRATORY CARE REPORT ==== ---------NAME------- NUMBER SEX AGE ADMIT DISC. XRAY# F/C TYPESHETTLETON MAGDY Forrester [id number] M 76 05/06/21 [id number] MB4 O/P DATE OF : 1945 M/R# [id number] #: [id number] 110-1 LOCATION[place] [id number] COMP LETE:05/07/21 04:08 [place] [id number] PHYSICIAN: DAIANA Nino Name Value Range Interpretation Code Description Data Alma rce(s) Supporting Document(s) ID Date Data Source [id number] 05/08/2021 05:30:00 AM EDT [facility] ([facility]) Name Value Range Interpretation Code Description Data Alma rce(s) Supporting Document(s) Hemoglobin A1c/Hemoglobin.total in Blood 8.2 % 4.4-6.1 Above high normal [facility] ([facility]) {A1] {HB] ID Date Data Source [id number] 05/08/2021 05:30:00 AM EDT [facility] ([facility]) Name Value Range Interpretation Code Description Data Alma rce(s) Supporting Document(s) Sodium 131 meq/L 134-153 Below low normal [facility] ( [facility]) Comprehensive Metabo Laboratory test result [facility] ([facility]) COMPREHENSIVE METABOLIC PANEL Chloride 95 meq/L 98-107 Below low normal [facility] ( [facility]) Potassium 3.9 meq/L 3.6-5.0 [facility] ([facility]) Glucose 192 mg/dL 70-99 Above high normal [facility] ([facility]) BUN 12 mg/dL 7-21 [facility] ([facility]) Co2 23 meq/L 22-30 [facility] ([facility]) BUN/Creat 24 8-27 [facility] ([facility]) Creatinine 0.5 mg/dL 0.7-1.5 Below low normal [facility] ( [facility]) Globulin 2.3 GM/DL 2.4-3.2 Below low normal [facility] ( [facility]) Albumin 3.9 g/dL 3.9-5.0 [facility] ([facility]) Total Protein 6.2 g/dL 6.3-8.2 Below low normal [facility] T ([facility]) Total Bili Laboratory test result 0.2-1.3 [facility] ([facility]) Calcium 9.0 mg/dL 8.4-10.2 [facility] ([facility]) A/G Ratio 1.7 0.8-2.0 [facility] ([facility]) Sgot/Ast 15 U/L 5-40 [facility] ([facility]) Alkaline Phos 128 U/L 38-126 Above high normal [facility] NT ([facility]) SGPT/Alt 12 U/L 7-56 [facility] ([facility]) Age 76 yrs [facility] ([facility]) Anion Gap 13.0 mmol/L 8.0-16.0 [facility] ([facility]) Afr Amer GFR Laboratory test result [facility] ([facility]) Male GFR Interprentation 20-49 yrs >60 mL/min Normal 50-59 yrs >56 mL/min Normal 60-69 yrs >49 mL/min Normal 70-79yrs >42 mL/min Normal 80 and above >35 mL/min Normal Female GFR Interpretation 20-39 yrs >60 mL/min Normal 40-49 yrs >58 mL/min Normal 50-59 yrs >51 mL/min Normal 60-69 yrs >45 mL/min Normal 70-79 yrs >39 mL/min Normal 80 and above >32 mL/min Normal Non-Aa GFR Laboratory test result [facility] ([facility]) ID Date Data Source [id number] 05/08/2021 05:30:00 AM EDT [facility] ([facility]) Name Value Range Interpretation Code Description Data Alma rce(s) Supporting Document(s) CBC W/Automated Diff Laboratory test result [facility] ([facility]) COMPLETE BLOOD COUNT WBC 5.6 10^3/uL 4.2-11.0 [facility] ([facility]) RBC 4.63 10^6/uL 4.50-6.30 [facility] ([facility]) Hemoglobin 13.6 g/dL 14.0-16.0 Below low normal [facility] ( [facility]) Hematocrit 39.0 % 41.0-51.0 Below low normal [facility] ( [facility]) MCV 84.2 fL 80.0-94.0 [facility] ([facility]) MCH 29.4 pg 27.0-34.0 [facility] ([facility]) RDW 12.9 % 11.5-14.8 [facility] ([facility]) MCHC 34.9 g/dL 31.0-36.0 [facility] ([facility]) MPV 9.3 fL 7.4-10.4 [facility] ([facility]) Neut 59.6 % 37.0-80.0 [facility] ([facility]) Platelets 251 10^3/uL 150-450 [facility] ([facility]) Lymph 26.3 % 25.0-40.0 [facility] ([facility]) [place] 9.0 % 3.0-8.0 Above high normal [facility] ([facility]) %Ig 0.4 % 0.0-0.0 Above high normal [facility] ([facility]) Baso 0.9 % 0.0-2.0 [facility] ([facility]) Eos 3.8 % 0.0-7.0 [facility] ([facility]) %NRBC 0.0 % 0.0-0.0 [facility] ([facility]) #Neut 3.33 10^3/uL 2.00-6.90 [facility] ([facility]) #[place] 0.50 10^3/uL 0.00-0.90 [facility] ([facility]) #Lymph 1.47 10^3/uL 0.60-3.40 [facility] ([facility]) #Eos 0.21 10^3/uL 0.00-0.70 [facility] ([facility]) #Baso 0.05 10^3/uL 0.00-0.20 [facility] ([facility]) #Ig 0.02 10^3/uL 0.00-0.10 [facility] ([facility]) #NRBC 0.00 10^3/uL 0.00-0.00 [facility] ([facility]) Manual Diff Laboratory test result M [facility] ([facility]) RBC Morph Laboratory test result [facility] ([facility]) ID Date Data Source [id number] 05/08/2021 05:30:00 AM EDT [facility] ([facility]) Name Value Range Interpretation Code Description Data Alma rce(s) Supporting Document(s) Laboratory test finding (navigational concept) Laboratory test result [facility] ([facility]) COMPLETE BLOOD COUNT Laboratory test finding (navigational concept) 4.63 10^6/uL 4.50-6.30 [facility] ([facility]) Laboratory test finding (navigational concept) 5.6 10^3/uL 4.2-11.0 [facility] ([facility]) Laboratory test finding (navigational concept) 39.0 % 4 1.0-51.0 Below low normal [facility] ([facility]) Laboratory test finding (navigational concept) 84.2 fL 80.0-94.0 [facility] ([facility]) Laboratory test finding (navigational concept) 13.6 g/dL 1 4.0-16.0 Below low normal [facility] ([facility]) Laboratory test finding (navigational concept) 29.4 pg 27.0-34.0 [facility] ([facility]) Laboratory test finding (navigational concept) 34.9 g/dL 31.0-36.0 [facility] ([facility]) Laboratory test finding (navigational concept) 9.3 fL 7.4-10.4 [facility]) Laboratory test finding (navigational concept) 12.9 % 11.5-14.8 [facility] ([facility]) Laboratory test finding (navigational concept) 251 10^3/uL 150-450 [facility] ([facility]) Laboratory test finding (navigational concept) 59.6 % 37.0-80.0 [facility] ([facility]) Laboratory test finding (navigational concept) 26.3 % 25.0-40.0 [facility]) Laboratory test finding (navigational concept) 3.8 % 0.0-7.0 [facility] ([facility]) Laboratory test finding (navigational concept) 9.0 % 3.0-8.0 Above high normal [facility] ([facility]) Laboratory test finding (navigational concept) 0.9 % 0.0-2.0 [facility] ([facility]) Laboratory test finding (navigational concept) 0.0 % 0.0-0.0 [facility] ([facility]) Laboratory test finding (navigational concept) 3.33 10^3/uL 2.00-6.90 [facility] ([facility]) Laboratory test finding (navigational concept) 0.4 % 0.0-0.0 Above high normal [facility] ([facility]) Laboratory test finding (navigational concept) 1.47 10^3/uL 0.60-3.40 [facility] ([facility]) Laboratory test finding (navigational concept) 0.50 10^3/uL 0.00-0.90 [facility] ([facility]) Laboratory test finding (navigational concept) 0.21 10^3/uL 0.00-0.70 [facility] ([facility]) Laboratory test finding (navigational concept) 0.05 10^3/uL 0.00-0.20 [facility] ([facility]) Laboratory test finding (navigational concept) 0.02 10^3/uL 0.00-0.10 [facility]) Laboratory test finding (navigational concept) Laboratory test result [facility] ([facility]) Laboratory test finding (navigational concept) 0.00 10^3/uL 0.00-0.00 [facility] ([facility]) Laboratory test finding (navigational concept) Laboratory test result [facility] ([facility]) ID Date Data Source [id number] 05/08/2021 05:30:00 AM EDT [facility] ([facility]) Name Value Range Interpretation Code Description Data Alma rce(s) Supporting Document(s) Hemoglobin A1c/Hemoglobin.total in Blood 8.2 % 4.4-6.1 Above high normal [facility] ([facility]) {A1] {HB] ID Date Data Source [id number] 05/08/2021 05:30:00 AM EDT [facility] ([facility]) Name Value Range Interpretation Code Description Data Alma rce(s) Supporting Document(s) Laboratory test finding (navigational concept) Laboratory test result [facility] ([facility]) COMPREHENSIVE METABOLIC PANEL Laboratory test finding (navigational concept) 131 meq/L 1 34-153 Below low normal [facility] ([facility]) Laboratory test finding (navigational concept) 3.9 meq/L 3.6-5.0 [facility] ([facility]) Laboratory test finding (navigational concept) 95 meq/L 98-107 Below low normal [facility] ([facility]) Laboratory test finding (navigational concept) 192 mg/dL 7 0-99 Above high normal [facility] ([facility]) Laboratory test finding (navigational concept) 23 meq/L 22-30 [facility] ([facility]) Laboratory test finding (navigational concept) 12 mg/dL 7-21 [facility]) Laboratory test finding (navigational concept) 0.5 mg/dL 0 .7-1.5 Below low normal [facility] ([facility]) Laboratory test finding (navigational concept) 24 8-27 [facility]) Laboratory test finding (navigational concept) 6.2 g/dL 6 .3-8.2 Below low normal [facility] ([facility]) Laboratory test finding (navigational concept) 3.9 g/dL 3.9-5.0 [facility] ([facility]) Laboratory test finding (navigational concept) 2.3 GM/DL 2 .4-3.2 Below low normal [facility] ([facility]) Laboratory test finding (navigational concept) 1.7 0.8-2.0 [facility] ([facility]) Laboratory test finding (navigational concept) 9.0 mg/dL 8.4-10.2 [facility] ([facility]) Laboratory test finding (navigational concept) 128 U/L 38-126 Above high normal [facility] ([facility]) Laboratory test finding (navigational concept) Laboratory test resu lt 0.2-1.3 [facility] ([facility]) Laboratory test finding (navigational concept) 15 U/L 5-40 [facility] ([facility]) Laboratory test finding (navigational concept) 12 U/L 7-56 [facility] ([facility]) Laboratory test finding (navigational concept) 13.0 mmol/L 8.0-16.0 [facility] ([facility]) Laboratory test finding (navigational concept) 76 yrs [facility] ([facility]) Laboratory test finding (navigational concept) Laboratory test result [facility] ([facility]) Laboratory test finding (navigational concept) Laboratory test result [facility] ([facility]) Male GFR Interprentation 20-49 yrs >60 mL/min Normal 50-59 yrs >56 mL/min Normal 60-69 yrs >49 mL/min Normal 70-79yrs >42 mL/min Normal 80 and above >35 mL/min Normal Female GFR Interpretation 20-39 yrs >60 mL/min Normal 40-49 yrs >58 mL/min Normal 50-59 yrs >51 mL/min Normal 60-69 yrs >45 mL/min Normal 70-79 yrs >39 mL/min Normal 80 and above >32 mL/min Normal ID Date Data Source [id number] 05/08/2021 06:53:00 AM EDT [facility] Name Value Range Interpretation Code Description Data Alma rce(s) Supporting Document(s) COMPREHENSIVE METABOLIC PANEL [facility] COMPREHENSIVE METABOLIC PANEL Sodium [Moles/volume] in Serum or Plasma 131 mEq/L 134 - 153 L [facility] Potassium [Moles/volume] in Serum or Plasma 3.9 mEq/L 3.6 - 5.0 [facility] Chloride [Moles/volume] in Serum or Plasma 95 mEq/L 98 - 107 L [facility] Carbon dioxide, total [Moles/volume] in Serum or Plasma 23 MEQ/L 22 - 30 [facility] Glucose [Mass/volume] in Serum or Plasma 192 MG/DL 70 - 99 H [facility] BUN 12 MG/DL 7 - 21 [facility] Creatinine [Mass/volume] in Serum or Plasma 0.5 MG/DL 0.7 - 1.5 L [facility] BUN/CREAT 24 8 - 27 [facility] Protein [Mass/volume] in Serum or Plasma 6.2 G/DL 6.3 - 8.2 L [facility] Albumin [Mass/volume] in Serum or Plasma 3.9 G/DL 3.9 - 5.0 [facility] Globulin [Mass/volume] in Serum by calculation 2.3 GM/DL 2.4 - 3.2 L [facility] A/G RATIO 1.7 0.8 - 2.0 [facility] Calcium [Mass/volume] in Serum or Plasma 9.0 MG/DL 8.4 - 10.2 [facility] Bilirubin.total [Mass/volume] in Serum or Plasma <0.7 MG/DL 0.2 - 1.3 [facility] Alkaline phosphatase [Enzymatic activity/volume] in Serum or Plasma 128 U/L 38 - 126 H [facility] Aspartate aminotransferase [Enzymatic activity/volume] in Serum or Plasma 15 U/L 5 - 40 [facility] Alanine aminotransferase [Enzymatic activity/volume] in Seru m or Plasma 12 U/L 7 - 56 [facility] Anion gap 3 in Serum or Plasma 13.0 mmol/L 8.0 - 16.0 [facility] AGE [address] [facility] NON-AA GFR >60 mL/min [facility] AFR AMER GFR >60 mL/min [facility] Male GFR In terprentation 20-49 yrs >60 mL/min Normal 50-59 yrs >56 mL/min Normal 60-69 yrs >49 mL/min Normal 70-79yrs >42 mL/min Normal 80 and above >35 mL/min Normal Female GFR Interpretation 20-39 yrs >60 mL/min Normal 40-49 yrs >58 mL/min Normal 50-59 yrs >51 mL/min Normal 60-69 yrs >45 mL/min Normal 70-79 yrs >39 mL/min Normal 80 and above >32 mL/min Normal ID Date Data Source [id number] 05/08/2021 06:21:00 AM [facility] Name Value Range Interpretation Code Description Data Alma rce(s) Supporting Document(s) Hemoglobin A1c/Hemoglobin.total in Blood 8.2 % 4.4 - 6.1 H [facility] {A1]{HB] ID Date Data Source [id number] 05/08/2021 06:15:00 AM [facility] Name Value Range Interpretation Code Description Data Alma rce(s) Supporting Document(s) CBC W/AUTOMATED DIFF [facility] COMPLETE BLOOD COUNT Leukocytes [#/volume] in Blood by Automated count 5.6 10^3/uL 4.2 - 1 1.0 [facility] Erythrocytes [#/volume] in Blood by Automated count 4.63 10^6/uL 4. 50 - 6.30 [facility] Hemoglobin [Mass/volume] in Blood 13.6 g/dL 14.0 - 16.0 L [facility] Hematocrit [Volume Fraction] of Blood by Automated count 39.0 % 4 1.0 - 51.0 L [facility] Erythrocyte mean corpuscular volume [Entitic volume] by Auto mated count 84.2 fL 80.0 - 94.0 [facility] Erythrocyte mean corpuscular hemoglobin [Entitic mass] by Automated count 29.4 pg 27.0 - 34.0 [facility] Erythrocyte mean corpuscular hemoglobin concentration [Mass/volume] by Automated count 34.9 g/dL 31.0 - 36.0 [facility] Erythrocyte distribution width [Ratio] by Automated count 12.9 % 11.5 - 14.8 [facility] Platelets [#/volume] in Blood by Automated count 251 10^3/uL 150 - 45 0 [facility] Platelet mean volume [Entitic volume] in Blood by Automated count 9.3 fL 7.4 - 10.4 [facility] Neutrophils/100 leukocytes in Blood by Automated count 59.6 % 37. 0 - 80.0 [facility] Lymphocytes/100 leukocytes in Blood by Manual count 26.3 % 25.0 - 40.0 [facility] Monocytes/100 leukocytes in Blood by Automated count 9.0 % 3.0 - 8.0 H [facility] Eosinophils/100 leukocytes in Blood by Automated count 3.8 % 0.0 - 7.0 [facility] Basophils/100 leukocytes in Blood by Automated count 0.9 % 0.0 - 2.0 [facility] %IG 0.4 % 0.0 - 0.0 H [facility] al %NRBC 0.0 % 0.0 - 0.0 [facility] al Neutrophils [#/volume] in Blood by Automated count 3.33 10^3/uL 2.00 - 6.90 [facility] Lymphocytes [#/volume] in Blood by Automated count 1.47 10^3/uL 0.60 - 3.40 [facility] Monocytes [#/volume] in Blood by Automated count 0.50 10^3/uL 0.00 - 0.90 [facility] Eosinophils [#/volume] in Blood by Automated count 0.21 10^3/uL 0.00 - 0.70 [facility] Basophils [#/volume] in Blood by Automated count 0.05 10^3/uL 0.00 - 0.20 [facility] #IG 0.02 10^3/uL 0.00 - 0.10 [facility] #NRBC 0.00 10^3/uL 0.00 - 0.00 [facility] MANUAL DIFF NOT INDICATED [facility] RBC MORPH NOT INDICATED [facility] ID Date Data Source [id number] 05/07/2021 07:26:00 PM EDT [facility] [address] [place] [address] PHONE: [phone] FAX: [phone] Name .................. : HAYLEE Forrester Acct Number.................. : [id number] ROOM. ................. : 110-1 MR Number ................... : [id number] Stay type ............. : O/P Discharge Date......... ... : Admit Date ......... : 05/06/21 Admit Phys .................... : AHMADI HARD Date of ....... : 1945 Family Phys ................... : J LUIS VIDA Phone .................. : [phone] Age ................................ : 76 Film# .................. .:[id number] Sex ................................. : M Unsigned transcriptions are preliminary reports and do not represent a medical or legal document CHEST PORTABLE [id number] COMPLETE:05/06/21 15:24 ALEJANDRA [id number] Reason(s): Chest Pain PORTABLE CHEST SINGLE VIEW 3:30 PM HISTORY: Chest pain COMPARISON: 03/13/21. CT 03/16/21 FINDINGS: Pacer. No mediastinal or hilar masses. Lungs are clear. No pulmonary edema. No pleural effusions or pneumothorax. IMPRESSION: No acute cardiopulmonary abnormality.. Electronically Reviewed and Signed By Kailash Upton MD , 05/07/21 19:26, SCB Transcribe Initials: CLARK , Transcribe Date: 05/06/21 23:04, Dictation Date: Copy for: J LUISEdgar LUBIN via modem Copy for: EMERGENCY DEPT via modem Copy for: 710 MED REC Page 1 of 1 Name Value Range Interpretation Code Description Data Alma rce(s) Supporting Document(s) ID Date Data Source [id number] 05/07/2021 05:16:00 AM EDT [facility] ([facility]) Name Value Range Interpretation Code Description Data Alma rce(s) Supporting Document(s) Magnesium [Mass/volume] in Serum or Plasma 1.6 mg/dL 1.7-2.2 Belo w low normal [facility] ([facility]) Troponin T.cardiac [Mass/volume] in Serum or Plasma Laborato ry test [facility].00-0.10 [facility] TROPONIN T 0.1 ng/ml Recommended as the clinical th reshold value for Troponin T. ID Date Data Source [id number] 05/07/2021 05:16:00 AM EDT [facility] ([facility]) Name Value Range Interpretation Code Description Data Alma rce(s) Supporting Document(s) Comprehensive Metabo Laboratory test result [facility] ([facility]) COMPREHENSIVE METABOLIC PANEL Potassium 4.0 meq/L 3.6-5.0 [facility] ([facility]) Sodium 130 meq/L 134-153 Below low normal [facility] ( [facility]) Chloride 97 meq/L 98-107 Below low normal [facility] ( [facility]) Glucose 166 mg/dL 70-99 Above high normal [facility] ([facility]) Co2 21 meq/L 22-30 Below low normal [facility] ([facility]) BUN/Creat 35 8-27 Above high normal [facility] ([facility]) Creatinine 0.6 mg/dL 0.7-1.5 Below low normal [facility] ( [facility]) BUN 21 mg/dL 7-21 [facility] ([facility]) Albumin 3.7 g/dL 3.9-5.0 Below low normal [facility] ( [facility]) Total Protein 5.7 g/dL 6.3-8.2 Below low normal [facility] ([facility]) Globulin 2.0 GM/DL 2.4-3.2 Below low normal [facility] ( [facility]) Calcium 8.8 mg/dL 8.4-10.2 [facility] ([facility]) Total Bili Laboratory test result 0.2-1.3 [facility] ([facility]) A/G Ratio 1.9 0.8-2.0 [facility] ([facility]) SGPT/Alt 11 U/L 7-56 [facility] ([facility]) Sgot/Ast 16 U/L 5-40 [facility] ([facility]) Alkaline Phos 119 U/L 38-126 [facility] ([facility]) Anion Gap 12.0 mmol/L 8.0-16.0 [facility] ([facility]) Age 76 yrs [facility] ([facility]) Afr Amer GFR Laboratory test result [facility] ([facility]) Male GFR Interprentation 20-49 yrs >60 mL/min Normal 50-59 yrs >56 mL/min Normal 60-69 yrs >49 mL/min Normal 70-79yrs >42 mL/min Normal 80 and above >35 mL/min Normal Female GFR Interpretation 20-39 yrs >60 mL/min Normal 40-49 yrs >58 mL/min Normal 50-59 yrs >51 mL/min Normal 60-69 yrs >45 mL/min Normal 70-79 yrs >39 mL/min Normal 80 and above >32 mL/min Normal Non-Aa GFR Laboratory test result [facility] ([facility]) ID Date Data Source [id number] 05/07/2021 05:16:00 AM EDT [facility] ([facility]) Name Value Range Interpretation Code Description Data Alma rce(s) Supporting Document(s) WBC 5.5 10^3/uL 4.2-11.0 [facility] ([facility]) CBC W/Automated Diff Laboratory test result [facility] ([facility]) COMPLETE BLOOD COUNT RBC 4.43 10^6/uL 4.50-6.30 Below low normal [facility] ([facility]) Hemoglobin 13.1 g/dL 14.0-16.0 Below low normal [facility] ( [facility]) Hematocrit 38.5 % 41.0-51.0 Below low normal [facility] ( [facility]) MCV 86.9 fL 80.0-94.0 [facility] ([facility]) MCH 29.6 pg 27.0-34.0 [facility] ([facility]) MCHC 34.0 g/dL 31.0-36.0 [facility] ([facility]) RDW 13.1 % 11.5-14.8 [facility] ([facility]) Platelets 218 10^3/uL 150-450 [facility] ([facility]) MPV 9.6 fL 7.4-10.4 [facility] ([facility]) Neut 49.7 % 37.0-80.0 [facility] ([facility]) Freestone 9.3 % 3.0-8.0 Above high normal [facility] ([facility]) Lymph 36.4 % 25.0-40.0 [facility] ([facility]) Eos 3.1 % 0.0-7.0 [facility] ([facility]) Baso 1.3 % 0.0-2.0 [facility] ([facility]) %Ig 0.2 % 0.0-0.0 Above high normal [facility] ([facility]) %NRBC 0.0 % 0.0-0.0 [facility] ([facility]) #Neut 2.74 10^3/uL 2.00-6.90 [facility] ([facility]) #Lymph 2.00 10^3/uL 0.60-3.40 [facility] ([facility]) #Freestone 0.51 10^3/uL 0.00-0.90 [facility] ([facility]) #Eos 0.17 10^3/uL 0.00-0.70 [facility] ([facility]) #Baso 0.07 10^3/uL 0.00-0.20 [facility] ([facility]) #Ig 0.01 10^3/uL 0.00-0.10 [facility] ([facility]) #NRBC 0.00 10^3/uL 0.00-0.00 [facility] ([facility]) RBC Morph Laboratory test result [facility] ([facility]) Manual Diff Laboratory test result [facility] ([facility]) ID Date Data Source [id number] 05/07/2021 05:16:00 AM EDT [facility] ([facility]) Name Value Range Interpretation Code Description Data Alma rce(s) Supporting Document(s) Troponin T.cardiac [Mass/volume] in Serum or Plasma Laborato ry test result 0.00-0.10 [facility] ([facility]) TROPONIN T 0.1 ng/ml Recommended as the clinical th reshold value for Troponin T. Magnesium [Mass/volume] in Serum or Plasma 1.6 mg/dL 1.7-2.2 Belo w low normal [facility] ([facility]) ID Date Data Source [id number] 05/07/2021 05:16:00 AM EDT [facility] ([facility]) Name Value Range Interpretation Code Description Data Alma rce(s) Supporting Document(s) Laboratory test finding (navigational concept) Laboratory test result [facility] ([facility]) COMPREHENSIVE METABOLIC PANEL Laboratory test finding (navigational concept) 4.0 meq/L 3.6-5.0 [facility] ([facility]) Laboratory test finding (navigational concept) 130 meq/L 1 34-153 Below low normal [facility] ([facility]) Laboratory test finding (navigational concept) 21 meq/L 22-30 Below low normal [facility] ([facility]) Laboratory test finding (navigational concept) 97 meq/L 98-107 Below low normal [facility] ([facility]) Laboratory test finding (navigational concept) 21 mg/dL 7-21 [facility] ([facility]) Laboratory test finding (navigational concept) 0.6 mg/dL 0 .7-1.5 Below low normal [facility] ([facility]) Laboratory test finding (navigational concept) 166 mg/dL 7 0-99 Above high normal [facility] ([facility]) Laboratory test finding (navigational concept) 5.7 g/dL 6 .3-8.2 Below low normal [facility] ([facility]) Laboratory test finding (navigational concept) 35 8-27 Above high normal [facility] ([facility]) Laboratory test finding (navigational concept) 2.0 GM/DL 2 .4-3.2 Below low normal [facility] ([facility]) Laboratory test finding (navigational concept) 3.7 g/dL 3 .9-5.0 Below low normal [facility] ([facility]) Laboratory test finding (navigational concept) 1.9 0.8-2.0 [facility] ([facility]) Laboratory test finding (navigational concept) 8.8 mg/dL 8.4-10.2 [facility] ([facility]) Laboratory test finding (navigational concept) Laboratory test resu lt 0.2-1.3 [facility] ([facility]) Laboratory test finding (navigational concept) 16 U/L 5-40 [facility] ([facility]) Laboratory test finding (navigational concept) 119 U/L 38-126 [facility] ([facility]) Laboratory test finding (navigational concept) 11 U/L 7-56 [facility] ([facility]) Laboratory test finding (navigational concept) 12.0 mmol/L 8.0-16.0 [facility] ([facility]) Laboratory test finding (navigational concept) 76 yrs [facility] ([facility]) Laboratory test finding (navigational concept) Laboratory test result [facility] ([facility]) Laboratory test finding (navigational concept) Laboratory test result [facility] ([facility]) Male GFR Interprentation 20-49 yrs >60 mL/min Normal 50-59 yrs >56 mL/min Normal 60-69 yrs >49 mL/min Normal 70-79yrs >42 mL/min Normal 80 and above >35 mL/min Normal Female GFR Interpretation 20-39 yrs >60 mL/min Normal 40-49 yrs >58 mL/min Normal 50-59 yrs >51 mL/min Normal 60-69 yrs >45 mL/min Normal 70-79 yrs >39 mL/min Normal 80 and above >32 mL/min Normal ID Date Data Source [id number] 05/07/2021 05:16:00 AM EDT [facility] ([facility]) Name Value Range Interpretation Code Description Data Alma rce(s) Supporting Document(s) Laboratory test finding (navigational concept) 5.5 10^3/uL 4.2-11.0 [facility] ([facility]) Laboratory test finding (navigational concept) 4.43 10^6/uL 4 .50-6.30 Below low normal [facility] ([facility]) Laboratory test finding (navigational concept) Laboratory test result [facility] ([facility]) COMPLETE BLOOD COUNT Laboratory test finding (navigational concept) 13.1 g/dL 1 4.0-16.0 Below low normal [facility] ([facility]) Laboratory test finding (navigational concept) 86.9 fL 80.0-94.0 [facility] ([facility]) Laboratory test finding (navigational concept) 38.5 % 4 1.0-51.0 Below low normal [facility] ([facility]) Laboratory test finding (navigational concept) 34.0 g/dL 31.0-36.0 [facility] ([facility]) Laboratory test finding (navigational concept) 29.6 pg 27.0-34.0 [facility] ([facility]) Laboratory test finding (navigational concept) 13.1 % 11.5-14.8 [facility] ([facility]) Laboratory test finding (navigational concept) 218 10^3/uL 150-450 [facility] ([facility]) Laboratory test finding (navigational concept) 9.6 fL 7.4-10.4 [facility] ([facility]) Laboratory test finding (navigational concept) 49.7 % 37.0-80.0 [facility] ([facility]) Laboratory test finding (navigational concept) 9.3 % 3.0-8.0 Above high normal [facility] ([facility]) Laboratory test finding (navigational concept) 36.4 % 25.0-40.0 [facility] ([facility]) Laboratory test finding (navigational concept) 1.3 % 0.0-2.0 [facility] ([facility]) Laboratory test finding (navigational concept) 3.1 % 0.0-7.0 [facility] ([facility]) Laboratory test finding (navigational concept) 0.0 % 0.0-0.0 [facility] ([facility]) Laboratory test finding (navigational concept) 0.2 % 0.0-0.0 Above high normal [facility] ([facility]) Laboratory test finding (navigational concept) 2.00 10^3/uL 0.60-3.40 [facility] ([facility]) Laboratory test finding (navigational concept) 2.74 10^3/uL 2.00-6.90 [facility] ([facility]) Laboratory test finding (navigational concept) 0.51 10^3/uL 0.00-0.90 [facility] ([facility]) Laboratory test finding (navigational concept) 0.07 10^3/uL 0.00-0.20 [facility] ([facility]) Laboratory test finding (navigational concept) 0.17 10^3/uL 0.00-0.70 [facility] ([facility]) Laboratory test finding (navigational concept) 0.01 10^3/uL 0.00-0.10 [facility] ([facility]) Laboratory test finding (navigational concept) Laboratory test result [facility] ([facility]) Laboratory test finding (navigational concept) 0.00 10^3/uL 0.00-0.00 [facility] ([facility]) Laboratory test finding (navigational concept) Laboratory test result [facility] ([facility]) ID Date Data Source [id number] 05/07/2021 06:58:00 AM EDT [facility] Name Value Range Interpretation Code Description Data Alma rce(s) Supporting Document(s) TROPONIN T <0.01 NG/ML 0.00 - 0.10 [facility]ital TROPONIN T0.1 ng/ml Recommended as the c linical threshold value forTroponin T. ID Date Data Source [id number] 05/07/2021 06:52:00 AM EDT [facility] Name Value Range Interpretation Code Description Data Alma rce(s) Supporting Document(s) Magnesium [Mass/volume] in Serum or Plasma 1.6 MG/DL 1.7 - 2.2 L [facility] ID Date Data Source [id number] 05/07/2021 06:52:00 AM T [facility] Name Value Range Interpretation Code Description Data Alma rce(s) Supporting Document(s) COMPREHENSIVE METABOLIC PANEL [facility] COMPREHENSIVE METABOLIC PANEL Sodium [Moles/volume] in Serum or Plasma 130 mEq/L 134 - 153 L [facility] Potassium [Moles/volume] in Serum or Plasma 4.0 mEq/L 3.6 - 5.0 [facility] Chloride [Moles/volume] in Serum or Plasma 97 mEq/L 98 - 107 L [facility] Carbon dioxide, total [Moles/volume] in Serum or Plasma 21 MEQ/L 22 - 30 L [facility] Glucose [Mass/volume] in Serum or Plasma 166 MG/DL 70 - 99 H [facility] BUN 21 MG/DL 7 - 21 [facility] al Creatinine [Mass/volume] in Serum or Plasma 0.6 MG/DL 0.7 - 1.5 L [facility] BUN/CREAT 35 8 - 27 H [facility] Protein [Mass/volume] in Serum or Plasma 5.7 G/DL 6.3 - 8.2 L [facility] Albumin [Mass/volume] in Serum or Plasma 3.7 G/DL 3.9 - 5.0 L [facility] Globulin [Mass/volume] in Serum by calculation 2.0 GM/DL 2.4 - 3.2 L [facility] A/G RATIO 1.9 0.8 - 2.0 [facility] Calcium [Mass/volume] in Serum or Plasma 8.8 MG/DL 8.4 - 10.2 [facility] Bilirubin.total [Mass/volume] in Serum or Plasma <0.7 MG/DL 0.2 - 1.3 [facility] Alkaline phosphatase [Enzymatic activity/volume] in Serum or Plasma 119 U/L 38 - 126 [facility] Aspartate aminotransferase [Enzymatic activity/volume] in Serum or Plasma 16 U/L 5 - 40 [facility] Alanine aminotransferase [Enzymatic activity/volume] in Seru m or Plasma 11 U/L 7 - 56 [facility] Anion gap 3 in Serum or Plasma 12.0 mmol/L 8.0 - 16.0 [facility] AGE 76 yrs [facility] NON-AA GFR >60 mL/min [facility] ital AFR AMER GFR >60 mL/min [facility] Male GFR In terprentation 20-49 yrs >60 mL/min Normal 50-59 yrs >56 mL/min Normal 60-69 yrs >49 mL/min Normal 70-79yrs >42 mL/min Normal 80 and above >35 mL/min Normal Female GFR Interpretation 20-39 yrs >60 mL/min Normal 40-49 yrs >58 mL/min Normal 50-59 yrs >51 mL/min Normal 60-69 yrs >45 mL/min Normal 70-79 yrs >39 mL/min Normal 80 and above >32 mL/min Normal ID Date Data Source [id number] 05/07/2021 06:13:00 AM EDT [facility] Name Value Range Interpretation Code Description Data Alma rce(s) Supporting Document(s) CBC W/AUTOMATED DIFF [facility] COMPLETE BLOOD COUNT Leukocytes [#/volume] in Blood by Automated count 5.5 10^3/uL 4.2 - 1 1.0 [facility] Erythrocytes [#/volume] in Blood by Automated count 4.43 10^6/uL 4. 50 - 6.30 L [facility] Hemoglobin [Mass/volume] in Blood 13.1 g/dL 14.0 - 16.0 L [facility] Hematocrit [Volume Fraction] of Blood by Automated count 38.5 % 4 1.0 - 51.0 L [facility] Erythrocyte mean corpuscular volume [Entitic volume] by Auto mated count 86.9 fL 80.0 - 94.0 [facility] Erythrocyte mean corpuscular hemoglobin [Entitic mass] by Automated count 29.6 pg 27.0 - 34.0 [facility] Erythrocyte mean corpuscular hemoglobin concentration [Mass/volume] by Automated count 34.0 g/dL 31.0 - 36.0 [facility] Erythrocyte distribution width [Ratio] by Automated count 13.1 % 11.5 - 14.8 [facility] Platelets [#/volume] in Blood by Automated count 218 10^3/uL 150 - 45 0 [facility] Platelet mean volume [Entitic volume] in Blood by Automated count 9.6 fL 7.4 - 10.4 [facility] Neutrophils/100 leukocytes in Blood by Automated count 49.7 % 37. 0 - 80.0 [facility] Lymphocytes/100 leukocytes in Blood by Manual count 36.4 % 25.0 - 40.0 [facility] Monocytes/100 leukocytes in Blood by Automated count 9.3 % 3.0 - 8.0 H [facility] Eosinophils/100 leukocytes in Blood by Automated count 3.1 % 0.0 - 7.0 [facility] Basophils/100 leukocytes in Blood by Automated count 1.3 % 0.0 - 2.0 [facility] %IG 0.2 % 0.0 - 0.[address] [facility] %NRBC 0.0 % 0.0 - 0.[facility] [#/volume] in Blood by Automated count 2.74 10^3/uL 2.00 - 6.90 [facility] Lymphocytes [#/volume] in Blood by Automated count 2.00 10^3/uL 0.60 - 3.40 [facility] Monocytes [#/volume] in Blood by Automated count 0.51 10^3/uL 0.00 - 0.90 [facility] Eosinophils [#/volume] in Blood by Automated count 0.17 10^3/uL 0.00 - 0.70 [facility] Basophils [#/volume] in Blood by Automated count 0.07 10^3/uL 0.00 - 0.20 [facility] #IG 0.01 10^3/uL 0.00 - 0.10 [facility] #NRBC 0.00 10^3/uL 0.00 - 0.00 [facility] MANUAL DIFF NOT INDICATED [facility] RBC MORPH NOT INDICATED [facility] spital ID Date Data Source [id number] 05/06/2021 09:55:00 PM EDT [facility] ([facility]) Name Value Range Interpretation Code Description Data Alma rce(s) Supporting Document(s) Troponin T.cardiac [Mass/volume] in Serum or Plasma Laborato ry test result 0.00-0.10 [facility] ([facility]) TROPONIN T 0.1 ng/ml Recommended as the clinical th reshold value for Troponin T. ID Date Data Source [id number] 05/06/2021 09:55:00 PM EDT [facility] ([facility]) Name Value Range Interpretation Code Description Data Alma rce(s) Supporting Document(s) Troponin T.cardiac [Mass/volume] in Serum or Plasma Laborato ry test result 0.00-0.10 [facility] TROPONIN T 0.1 ng/ml Recommended as the clinical th reshold value for Troponin T. ID Date Data Source [id number] 05/06/2021 10:30:00 PM EDT [facility] Name Value Range Interpretation Code Description Data Alma rce(s) Supporting Document(s) TROPONIN T <0.01 NG/ML 0.00 - 0.10 [facility] TROPONIN T0.1 ng/ml Recommended as the c linical threshold value Patropodylon T. ID Date Data Source [id number] 05/06/2021 02:14:00 PM EDT [facility] 1 OrderSheet [facility] Emergency Department [address] [place] [address] Phone #: ext- [phone] 05/06/2021 14:09 Patient: MAGDY LEACH Sex: M : 1945 Age: 76yWEIGHT:105.6 kg (M) HEIGHT:76 inches (S) BMI:28.3ALLERGIES: Morphine and RelatedCHIEF COMPLAINT: chest painDIAGNOSIS: Chest wall pain, HyponatremiaLAB ORDERSOrder Description Priority Entered Acknowledged InitialedBMP STAT 14:29 05/06/2021 14:37 Chrissy Flores Jack ; R.NParkTroponin-T STAT 14:29 05/06/2021 14:37 Chrissy Flores Jack ; R.N.CBC w Diff STAT 14:29 05/06/2021 14:37 Chrissy Flores Jack ; R.NParkCOVID-19 CAH STAT 14:59 05/06/2021 Ack'd: 15:02 Edna Hernandez R.N.(Symptomatic as Chris Barr ; Initialed: 15:03 Chris BarrDefined by [facility]) Cancelled: Physician Order 15:03 Victor Manuel,(05/04/2021) (Not JackFirst Test) (NotHospitalized) (Not) (NotResident inCongregate CareSetting) (NotEmployed inHealthcare Setting)DIAGNOSTIC STUDY ORDERSOrder Description Priority Entered Acknowledged InitialedChest Portable 1 STAT 14:39 05/06/2021 Ack'd: 14:51 15:10 Suzan Hernandez Jac k ; Edna Hernandez R.N.(Oxygen?(No)) R.NPark Reason for Study: Chest PainMEDICATION/IV/DRIP/FLUID ORDERSOrder Description Priority Entered Acknowledged InitialedAcetaminophen PO 14:39 05/06/2021 Ack'd: 14:51 15:02 [place],650 mg (NOW x1) Chris Barr ; Edna Hernandez R.N. 2 OrderSheet [facility] Emergency Department [address] [place] [address] Phone #: ext- [phone] 05/06/2021 14:09 Patient: MAGDY LEACH Sex: M : 1945 Age: 76y R.N.GENERAL ORDERSOrder Description Priority Entered Acknowledged InitialedEKG 14:29 05/06/2021 14:37 Chrissy Flores Jack ; R.N.Diet: (1500 ben 16:14 05/06/2021 16:14 Mary,Diabetic Diet) Edna Hernandez R.N. R.NPark; Verbal order per; Chris Barr[Electronically signed by Edna Hernandez R.N. (18:17 05/06/2021)][Electronically signed by Chris Barr (18:27 05/06/2021)][Electronically locked by Edna Hernandez R.N. (18:17 05/06/2021)] Name Value Range Interpretation Code Description Data Alma rce(s) Supporting Document(s) ID Date Data Source [id number] 05/06/2021 02:14:00 PM EDT [facility] 1 Medication Reconciliation Report [facility] Emergency Department [address] [place] [address] Phone #: ext- [phone] 05/06/2021 14:09 [id number] Sex: M : 1945 Age: 76yWeight: 105.6 kgHeight/Length: 76 in.BMI: 28.3ALLERGIES: Morphine and RelatedThe patient's Home Medications are listed below:CONTINUE TAKING THE FOLLOWING MEDICATIONS: amLODIPine Besylate Oral 10 mg, daily Atorvastatin Calcium Oral 40 mg, daily metFORMIN HCl Oral 500 mg, daily Ser traline HCl Oral 25 mg, daily Tamsulosin HCl Oral 0.4 mg, dailyThe source(s) of the original Home Medication information:EMSThe following Medications were given to the patient in the Emergency Department:Acetaminophen [PO] PO 650 mg, administered: 15:00 05/06/2021The following Medications were prescribed to the patient:None. Name Value Range Interpretation Code Description Data [facility](s) Supporting Document(s) ID Date Data Source [id number] 05/06/2021 02:14:00 PM EDT [facility] 1 Medication Administration Record [facility] Emergency Department [address] [place] [address] Phone #: ext- [phone] 05/06/2021 14:09 Patient: MAGDY LEACH Sex: M : 1945 Age: 76yWeight: 105.6 kgHeight/Length: 76 inBMI: 28.3ALLERGIES: Morphine and Related Date/Time Medication Administered Medication OrderedGiven ACETAMINOPHEN [PO] Acetaminophen PO 650 mg (NOW15:00 05/06/2021 Dose: 650 mg Tablets PO x1)Edna Hernandez R.N. Name Value Range Interpretation Code Description Data [facility] Supporting Document(s) ID Date Data Source [id number] 05/06/2021 02:14:00 PM EDT [facility] 1 General Instructions [facility] Emergency Department [address] [place] [address] Phone #: [phone] 05/06/2021 14:09 Patient: MAGDY LEACH Sex: M : 1945 Age: 76yChest wall painModerate hyponatremiaINSTRUCTIONSWarnings: Further evaluation is necessary.GENERAL WARNINGS: Return or contact your physician immediately if your condition worsens orchanges unexpectedly, if not improving as expected, or if other problems arise.Your Current Medications: Your current home medications have been reviewed.CONTINUE TAKING THE FOLLOWING MEDICATIONS:amLODIPine Besylate Oral : 10 mg daily.Atorvastatin Calcium Oral : 40 mg daily.metFORMIN HCl Oral : 500 mg daily.Sertraline HCl Oral : 25 mg daily.Tamsulosin HCl Oral : 0.4 mg daily.Understanding of the discharge instructions verbalized by patient.Follow-up with: Paul Rushing MD, Cardiology, , [address] [place] [address], Replaced by [facility] Follow up in two days if not well. Call for an appointment. Reason for referral: evaluation. ADDITIONAL INFORMATIONChest Wall Pain: Costochondritis 2 General Instructions [facility] Emergency Department [address] [place] [address] Phone #: [phone] 05/06/2021 14:09 Patient: MAGDY LEACH Sex: M : 1945 Age: 76yThe chest pain that you have had today is caused by costo chondritis. This condition is caused by aninflammation of the cartilage joining your ribs to your breastbone. It's not caused by heart or lungproblems. Your healthcare team has made sure that the chest pain you feel is not from a lifethreatening cause of chest pain such as heart attack, collapsed lung, blood clot in the lung, tear in theaorta, or esophageal rupture. The inflammation may have been brought on by a blow to the chest,lifting heavy objects, intense exercise, or an illness that made you cough and sneeze a lot. It oftenoccurs during times of emotional stress. It can be painful, but it's not dangerous. It usually goes awayin 1 to 2 weeks. But it may happen again. Rarely, a more serious condition may cause symptomssimilar to costochondritis. That's why it's important to watch for the warning signs listed below.Home careFollow these guidelines when caring for yourself at home: If you feel that emotional stress is a cause of your condition, try to figure out the sources of that stress. It may not be obvious. Learn ways to deal with the stress in your life. This can include regular exercise, muscle relaxation, meditation, or simply taking time out for yourself. You may use acetaminophen, ibuprofen, or naproxen to control pain, unless another pain medicine was prescribed. If you have liver or kidney disease or ever had a stomach ulcer, talk with your healthcare provider before using these medicines. You can also help ease pain by using a hot, wet compress or heating pad. Use this with or without a medicated skin cream that helps relieves pain. Do stretching exercise as advised by your provider. Typically rest is beneficial for the first few days. Avoid strenuous activity that worsens the pain. 3 General Instructions [facility] Emergency Department [address] [place] [address] Phone #: ext- [phone] 05/06/2021 14:09 [id number] Sex: M : 1945 Age: 76y Take any prescribed medicines as directed.Follow-up careFollow up with your healthcare provider, or as advised.When to seek medical adviceCall your healthcare provider right away if any of these occur: A change in the type of pain. Call if it feels different, becomes more serious, lasts longer, or spreads into your shoulder, arm, neck, jaw, or back. Shortness of breath or pain gets worse when you breathe Weakness, dizziness, or fainting Cough with dark- colored sputum (phlegm) or blood Abdominal pain Dark red or black stools Fever of 100.4F (38C) or higher, or as directed by your healthcare provider [phone] [employer]. [address] [place] [address], [place] [address]. All rights reserved. This information is not intended as asubstitute for professional medical care. Always follow your healthcare professional's instructions.HyponatremiaHyponatremia means low sodium levels in the blood. This condition most often occurs after prolongedvomiting or diarrhea, which causes your body to lose too much water and sodium. It can also resultfrom drinking excess amounts of water or the use of diuretics (water pills). Rarely, it can beassociated with disorders of your endocrine system, as side effects of illicit drug use (ecstasy), as acomplication of some cancers especially small cell lung cancer, or as a complication of renal and liverdisease or heart failure.Mild hyponatremia causes no symptoms. It is only discovered with a blood test. As sodium levels inthe blood decreases, symptoms begin to appear. This includes weakness, confusion, musclecramping and seizures.Home care Reduce your daily water intake until the problem is corrected. If you have been taking diuretics, you may be asked to stop taking them for a short time. 4 General Instructions [facility] Emergency Department [address] [place] [address] Phone #: ext- [phone] 05/06/2021 14:09 Patient: MAGDY LEACH Sex: M : 1945 Age: 76y If you are having symptoms of weakness or confusion, do not drive or operate dangerous machinery until symptoms resolve. If your sodium levels are too low to be managed at home with the above recommendations, you will be asked to go to the hospital to have your sodium replaced through your vein.Follow-up careFollow up with your healthcare provider for a repeat blood test within the next week, or as advised.When to seek medical adviceCall your healthcare provider if any of the following occur: Increasing weakness Dizziness Irregular heartbeat, extra beats or very fast heart rate Increasing confusion Fainting or loss of consciousness Seizure [phone] [employer]. [address] [place] [address]. All rights reserved. This information is not intended as asubstitute for professional medical care. Always follow your healthcare professional's instructions. You have been given the following additional information: Chest Wall Pain, Costochondritis Hyponatremia(Electronically signed by Chris Barr 05/06/2021 18:27) Name Value Range Interpretation Code Description Data Alma rce(s) Supporting Document(s) ID Date Data Source [id number] 05/06/2021 02:14:00 PM EDT [facility] 1 Clinical Report - Nurses [facility] Emergency Department [address] [place] [address] Phone #: [phone] 05/06/2021 14:09 Patient: MAGDY LEACH Sex: M : 1945 Age: 76yTRIAGEArrived by EMS. Historian: patient.Triage time: 14:10 05/06/2021. Acuity: LEVEL 3.Chief Complaint: CHEST PAIN.Alert.This started today. Onset. (0700). ( Per EMS they were called for welfare check as pt fell and hit hishead at 0700 in the bathroom, "doesn't remember" if he lost consciousness, has hx of dementia and livesalone; Per EMS pt is hallucinating, FS 183 per them. Pt does C/O chest pain with radiating pain to leftarm and up left neck. per EMS, given ASA per EMS, pt also c/o SOB, 4LNC applied by EMS.). He hashad difficulty breathing and nausea. ( Pt states he recently had a pacemaker placed [facility] Pt is difficult to triage and very [place]).Treatment ON SITE SOIL EVALUATOR:Took aspirin. (4 ASA given en route, 4LNC applied).SEPSIS SCREEN: SIRS SCREEN NEGATIVE: heart rate greater than 90. SEPSIS SCREEN NEGATIVE.No suspected or confirmed signs of infection present. --14:20 05/06/21 Edna Hernandez R.N.14:05/06/21. BP: 129/80. MAP: 96. HR: 90. RR: 22. O2 saturation: 100% on room air. Temp: 97.1 F.Pain level now: 03/03. --14:20 05/06/21 Edna Hernandez R.N.Weight: 105.6 kg measured. Height/Length: 76 inches Per Patient. BMI: 28.3. --14:08 05/06/21 Edna Hernandez R.N.MedicationsTamsulosin HCl Oral 0.4 mg, daily. --14:19 05/06/21 Edna Hernandez R.N. Atorvastatin Calcium Oral 40 mg, daily. --14:19 05/06/21 Edna Hernandez R.N. amLODIPine Besylate Oral 10 mg, daily. --14:19 05/06/21 Edna Hernandez R.N. metFORMIN HCl Oral 500 mg, daily. --14:20 05/06/21 Edna Hernandez R.N. Sertraline HCl Oral 25 mg, daily. --14:20 05/06/21 Edna Hernandez R.N.AllergiesMorphine and Related. --14:18 05/06/21 Edna Hernandez R.N.PROBLEMS:Diabetes Mellitus.Hypercholesterolemia.COPD - Chronic Obstructive Pulmonary Disease. 2 Clinical Report - Nurses [facility] Emergency Department [address] [place] [address] Phone #: [phone] ext- [phone] 05/06/2021 14:09 [id number] Sex: M : 1945 Age: 76yHypertension.Pulmonary Embolism.Hyponatremia. --14:20 05/06/21 Edna Hernandez R.N.Medication/allergy information source: EMS. --14:05/06/21 Edna Hernandez R.N.ADDITIONAL SURGERIES:Back Surgery.Pace maker.Unknown cardiac procedure. --14:05/06/21 Edna Hernandez R.N.HistoryPAST MEDICAL HX: Immunizations: up-to-date.SOCIAL HX: Never smoker. No alcohol use or drug use. He was offered HIV testing but declined.Patient education was provided. He was offered hepatitis C testing but declined. Patient education wasprovided. ( COVID screen negative). He has not traveled outside the [place]Infectious disease exposure: No infectious disease exposure. The patient was not exposed to Coronavirus.Mask placed on patient. Patient is not a known carrier of tuberculosis, hepatitis, HIV, MRSA or VRE.Patient is not a known carrier of CRE.SELF HARM ASSESSMENT: Self harm assessment was performed. The patient answered "no" to thequestion(s) "Do you have thoughts of harming or killing yourself?" and "Do you have a plan for harming orkilling yourself?".ABUSE ASSESSMENT: Abuse assessment. The patient had positive responses to the question(s) "Do youfeel safe in your home?". Abuse denied. No suspicion of abuse. No report of abuse.NUTRITIONAL RISK ASSESSMENT: The nutritional risk assessment revealed no deficiencies.LEARNING NEEDS ASSESSMENT: The learning needs assessment revealed no barriers.FALL RISK ASSESSMENT: Fall risk assessment completed. Risk factors identified include patient agegreater than 65 years, history of fall, diagnosis of alzheimer's and impairment of cognition. Fallinterventions initiated. Patient placed on stretcher. Side rails up x2. Bed in low position. Patient visible fromnurses' station and identified as a fall risk. Electronic bed monitor in use. Call light in reach of patient.Instructed not to get up without assistance. Instructions given to patient including fall preventioninformation. Verbalizes understanding.FUNCTIONAL ASSESSMENT: Functi onal assessment performed: uses walker- this mobility impairment isan ongoing problem; hearing impairment present; cognitive impairment present.SKIN INTEGRITY ASSESSMENT: Skin integrity risk assessment completed. No skin integrity riskidentified. --14:20 05/06/21 Edna Hernandez R.N.FAMILY HX: 3 Clinical Report - Nurses [facility] Emergency Department [address] [place] [address] Phone #: ext- [phone] 05/06/2021 14:09 Patient: MAGDY LEACH Sex: M : 1945 Age: 76y (non-contributory). --14:33 05/06/21 Chris Barr. Interventions Identification band on patient. --14:20 05/06/21 Edna Hernandez R.N.PHYSICAL ASSESSMENTTo room via stretcher. Patient gowned.GENERAL / NEURO / PSYCH: Alert. Oriented X 4. The patient is disoriented to place, time andsituation. ( pt has pmh of dementia).HEENT: Mucous membranes are pink.RESPIRATORY: Respirations not labored. Chest pain reproducible. Mid- and lower sternal tenderness.The tenderness reproduces the patient's subjective complaint. Breath sounds within normal limits. ( Ptc/o radiating chest pain down left arm and up left neck).CVS: Cardiac rhythm: paced rhythm. Heart sounds within normal limits. Pulses within normal limits.Capillary refill less than 2 seconds.GI / : The patient has had nausea. Abdomen soft and nontender. No emesis noted.EXTREMITIES: No lower extremity edema.SKIN: Skin is dry. Skin is cool. Normal skin turgor. --14:23 05/06/21 Edna Hernandez R.N.NURSING PROGRESS NOTESCardiac monitor, NIBP monitor and pulse oximeter placed on patient; court monitor- Lead II; monitoralarms on; monitor strip added to paper chart. Patient gowned. Reassurance given. Three patientidentifiers checked. Call light placed in reach. Side rails up x 2. Bed placed in lowest position. Brakesof bed on. Patient ready for evaluation- ED physician and PA notified. --14:17 05/06/21 Edna Hernandez R.N. 14:17 05/06/2021 Site #1 started prior to arrival by EMS via IV in the right forearm with an 18g angiocath, with aseptic technique and good blood return. --14:17 05/06/21 Edna Hernandez R.N. EKG time: (late entry - 14:13 05/06/2021). EKG was ordered, performed by a tech and shown to the ED physician. --14:24 05/06/21 Edna Hernandez R.N. Finger stick glucose: 180 mg/dL; performed by nurse; result shown to the ED physician. --14:28 05/06/21 Edna Hernandez R.N. 14:30 05/06/21. BP: 121/77. MAP: 91. HR: 80. RR: 20. O2 saturation: 99%. --14:51 05/06/21 Edna Hernandez R.N. 14:45 05/06/21. BP: 131/86. MAP: 101. HR: 78. RR: 21. O2 saturation: 95%. --14:52 05/06/21 Edna Hernandez R.N. 15:00 05/06/2021 Acetaminophen PO Tablets 650 mg given. Allergies verified and confirmed 5 rights. Information reviewed with patient including reason for taking this medication, signs of allergic reaction and precautions. Verbalizes understanding. --15:02 05/06/21 Edna Hernandez R.N. 4 Clinical Report - Nurses [facility] Emergency Department [address] [place] [address] Phone #: ext- [phone] 05/06/2021 14:09 Patient: MAGDY LEACH Sex: M : 1945 Age: 76yReassessment acuity: LEVEL 3.Rounding: Pain: assessed pain level. Position: states comfortable. Personal care / toileting: assisted withtoileting. Proximity of possessions / care items: call light within easy reach. Plug ins: assured IV pumpplugged in; checked status of equipment in use; located all cords, tubes, and lines to prevent fall hazard.Set expectations: advised patient of rounding protocol timing and asked if they needed anything else at thistime. (Pt stood at bedside and used urinal). The patient reports no complaints, he is calm and restingquietly and he has had no adverse reaction. Overall patient status is the same- he states feels the same.RESPIRATORY: No respiratory distress. --15:06 05/06/21 Edna Hernandez R.N.Reassessment acuity: LEVEL 3.Rounding: Pain: assessed pain level. Personal care / toileting: denies toileting needs. Proximity ofpossessions / care items: call light within easy reach. Plug ins: checked status of equipment in use; locatedall cords, tubes, and lines to prevent fall hazard. Set expectations: advised patient of rounding protocoltiming and asked if they needed anything else at this time. Overall patient status is the same- he statesfeels the same. ( Pt getting angry, staying he does not feel safe to going home stating he does not havelights/power, MD is aware, attempted to get ahold of family, no answer and voicemail left; Pt sitting onedge of bed, MD KEVIN to call hospitatlist for possible admission.).RESPIRATORY: No respiratory distress. --16:06 05/06/21 Edna Hernandez R.N.15:00 05/06/21. BP: 130/89. MAP: 102. HR: 87. O2 saturation: 97%. --16:07 05/06/21 Edna Hernandez R.N.15:15 05/06/21. BP: 127/70. MAP: 89. HR: 79. RR: 20. O2 saturation: 98%. --16:07 05/06/21 Edna Hernandez R.N.15:32 05/06/21. BP: 150/99. MAP: 116. HR: 86. RR: 16. O2 saturation: 95%. --16:07 05/06/21 Edna Hernandez R.N.15:33 05/06/21. BP: 148/88. MAP: 108. HR: 86. RR: 16. O2 saturation: 95%. --16:07 05/06/21 Edna Hernandez R.N.16:08 05/06/21. Temp: 98.4 F. --16:08 05/06/21 Edna Hernandez R.N.16:08 05/06/21. Pain level now 3/10. --16:05/06/21 Edna Hernandez R.N.late entry - 17:00 05/06/21. Reassessment acuity: LEVEL 3.Rounding: Pain: assessed pain level. Position: states comfortable. Proximity of possessions / care items:call light within easy reach. Plug ins: checked status of equipment in use; located all cords, tubes, and linesto prevent fall hazard. Set expectations: advised patient of rounding protocol timing and asked if theyneeded anything else at this time. Overall patient status is the same- he states feels the same. ( Pt 5 Clinical Report - Nurses [facility] Emergency Department [address] [place] [address] Phone #: ext- [phone] 05/06/2021 14:09 [facility] LEACH [id number] Sex: M : 1945 Age: 76y intermittently angry about everything from room number to not being admitted to actually wanting to be admitted; Will calm down for short periods and then started ringing/shouting about these things. Otherwise VSS NAD.). Patient waiting for admit bed. --18:14 05/06/21 Edna Hernandez R.N. 17:15 05/06/21. BP: 134/89. MAP: 104. HR: 77. RR: 14. O2 saturation: 97%. --18:15 05/06/21 Edna Hernandez R.N. 17:30 05/06/21. BP: 130/86. MAP: 100. HR: 77. RR: 19. O2 saturation: 96%. --18:15 05/06/21 Edna Hernandez R.N. 16:00 05/06/2021 Acetaminophen PO Response: no adverse reaction. --18:16 05/06/21 Edna Hernandez R.N.DISPOSITION / DISCHARGE 17:39 05/06/21. BP: 134/75. HR: 79. RR: 20. O2 saturation: 97%. Temp: 97.8 F. Pain level now 310. --17:39 05/06/21 [facility] Tech, [facility] Tech1 Departure time: late entry - 17:45 05/06/2021. --18:13 05/06/21 Edna Hernandez R.N. 17:45 05/06/2021 Site #[address] upon admission; patent, no pain and no signs of infection or infiltration. Good blood return present. Flushed with 10 mL saline; flushes easily. --18:15 05/06/21 Edna Hernandez R.N. Departure time: late entry - 17:45 05/06/2021. Admitted to the Acute Inpatient Unit. Transported via stretcher by nurse with monitor, IV and mask. Report was given to a nurse in person, at bedside and via visit overview. Report included information regarding patient's care, allergies and condition, vital signs and labs. Report included treatment information regarding medications given or pending and home medications. All questions were answered. Report was acknowledged. (Dayna CHRISTINE). Bed obtained and ready (110). Patient's personal items include, clothes. --18:17 05/06/21 Edna Hernandez R.N.Locked/Released at 05/06/2021 18:17 by Edna Hernandez R.N. Name Value Range Interpretation Code Description Data Alma rce(s) Supporting Document(s) ID Date Data Source [id number] 05/06/2021 02:14:00 PM EDT [facility] 1 Clinical Report - Physicians/Mid Levels [facility] Emergency Department [address] [place] [address] Phone #: ext- [phone] 05/06/2021 14:09 Patient: [facility] LEACH [id number] Sex: M : 1945 Age: 76y Time Seen: 14:26 05/06/2021. Arrived- By private vehicle. Historian- patient. Disposition decision: 15:30 05/06/2021.HISTORY OF PRESENT ILLNESS Chief Complaint: CHEST PAIN. It is described as sharp and it is described as located in the central chest area and radiating to the left arm. This started today and is still present. It has been constant. At its maximum, severity described as moderate. When seen in the E.D., severity described as moderate. Modifying factors- worsened by movement. No nausea, vomiting or difficulty breathing. (Patient fell off the toilet today. EMS was called out for welfare check. He is reporting chest pain and left arm pain). Similar symptoms previously. Recent medical care: The patient was seen recently in the emergency department and hospitalized.REVIEW OF SYSTEMSNo fever, cough, pedal edema, calf pain or headache. No sore throat, blurred vision, abdominal pain orskin rash. He has had joint pain. All other systems reviewed and are negative.PAST HISTORYSee nurses notes. Diabetes mellitus.SOCIAL HISTORYNever smoker. No alcohol use.FAMILY HISTORY(non-contributory).ADDITIONAL NOTESThe nursing notes have been reviewed.PHYSICAL EXAMVital Signs: 05/06/2021 14:10 BP: 129/80. MAP: 96. HR: 90. RR: 22. O2 saturation: 100% on room air.Temp: 97.1 F. Pain level now: 7/10.Appearance: Alert. Oriented X3. No acute distress.Eyes: Pupils equal, round and reactive to light. Eyes normal inspection.ENT: Ears normal. Nose normal. Pharynx normal.Neck: Normal inspection. Neck supple.CVS: Normal heart rate. 2/6 systolic murmur. Heart sounds normal.Respiratory: No respiratory distress. Chest pain reproducible with palpation of the costal cartilage andsternum. Breath sounds normal.Abdomen: Soft and nontender. Bowel sounds normal. No organomegaly. 2 Clinical Report - Physicians/[facility] Emergency Department [address] [place] [address] Phone #: ext- [phone] 05/06/2021 14:09 Patient: MAGDY LEACH [facility]#: [id number] Sex: M : 1945 Age: 76y Back: Normal external inspection. Skin: Skin warm and dry. Normal skin color. Normal skin turgor. Extremities: Extremities exhibit normal ROM. No lower extremity edema. (no hip pain with ROM). Neuro: Oriented X 3. No motor deficit. No sensory deficit.LABS, X-RAYS, AND EKGEKG: EKG time: 14:13 05/06/2021. Normal sinus rhythm. Rate: 90. Ectopic beats. Premature atrialcontractions. First-degree atrioventricular block. RBBB. Left axis deviation. Normal ST and T wavesand QT. EKG unchanged when compared with prior EKG. Interpretation time: 14:21 05/06/2021.Chest X-ray: No acute disease. Normal lung markings present. Normal heart size. No pleural effusion.(pacer.).Laboratory Tests: COVID-19 CAH: (MAIKOL: 05/06/2021 14:59) ( FlgRcvd 05/06/2021 15:03) Canceled First test?: N Employed in healthcare?: N Symptomatic as defined by CDC?: Y Hospitalized?: N Chest Portable 1 View: (MAIKOL: 05/06/2021 14:39) ( MsgRcvd 05/06/2021 15:24) In Progress CHEST PORTABLE Reason(s): Chest Pain TRANSPORTATION: P IV? O2? Oxygen?(No) Room: ED BMP: (MAIKOL: 05/06/2021 14:37) ( FlgRcvd 05/06/2021 15:16) Final results Test Result Flag Units (Reference) BASIC METABOLIC PANEL BASIC METABOLIC PANEL SODIUM 129 L mEq/L (134 - 153) POTASSIUM 3.5 L mEq/L (3.6 - 5.0) CHLORIDE 93 L mEq/L (98 - 107) CO2 22 MEQ/L (22 - 30) GLUCOSE 173 H MG/DL (70 - 99) BUN 19 MG/DL (7 - 21) CREATININE 0.7 MG/DL (0.7 - 1.5) BUN/CREAT 27 (8 - 27) CALCIUM 9.3 MG/DL (8.4 - 10.2) ANION GAP 14.0 mmol/L (8.0 - 16.0) AGE 76 yrs AFR AMER GFR >60 mL/min NON-AA GFR >60 mL/min Male GFR Interprentation 20-49 yrs >60 mL/min Normal 50-59 yrs >56 mL/min Normal 60-69 yrs >49 mL/min Normal 70-79yrs >42 mL/min Normal 80 and above >35 mL/min Normal Female GFR Interpretation 20-39 yrs >60 mL/min Normal 40-49 yrs >58 mL/min Normal 50-59 yrs >51 mL/min Normal 60-69 yrs >45 mL/min Normal 70-79 yrs >39 mL/min Normal 80 and above >32 mL/min Normal Troponin-T: (MAIKOL: 05/06/2021 14:37) ( MsgRcvd 05/06/2021 15:15) Final results Test Result Flag Units (Reference) 3 Clinical Report - Physicians/Mid Levels [facility] Emergency Department [address] [place] [address] Phone #: ext- [phone] 05/06/2021 14:09 Patient: MAGDY LEACH Sex: M : 1945 Age: 76y TROPONIN T <0.01 NG/ML (0.00 - 0.10) TROPONIN T0.1 ng/ml Recommended as the clinical threshold value forTropodylon [place]. CBC w Diff: (MAIKOL: 05/06/2021 14:37) ( MsgRcvd 05/06/2021 14:54) Final results Test Result Flag Units (Reference) CBC W/AUTOMATED DIFF COMPLETE BLOOD COUNT WBC 7.7 10/uL (4.2 - 11.0) RBC 4.77 10/uL (4.50 - 6.30) HEMOGLOBIN 14.0 g/dL (14.0 - 16.0) HEMATOCRIT 39.8 L % (41.0 - 51.0) MCV 83.4 fL (80.0 - 94.0) MCH 29.4 pg (27.0 - 34.0) MCHC 35.2 g/dL (31.0 - 36.0) RDW 12.8 % (11.5 - 14.8) PLATELETS 244 10/uL (150 - 450) MPV 9.0 fL (7.4 - 10.4) NEUT 65.7 % (37.0 - 80.0) LYMPH 23.3 L % (25.0 - 40.0) MONO 8.9 H % (3.0 - 8.0) EOS 1.2 % (0.0 - 7.0) BASO 0.8 % (0.0 - 2.0) %IG 0.1 H % (0.0 - 0.0) %NRBC 0.0 % (0.0 - 0.0) #NEUT 5.04 10/uL (2.00 - 6.90) #LYMPH 1.79 10/uL (0.60 - 3.40) #MONO 0.68 10/uL (0.00 - 0.90) #EOS 0.09 10/uL (0.00 - 0.70) #BASO 0.06 10/uL (0.00 - 0.20) #IG 0.01 10/uL (0.00 - 0.10) #NRBC 0.00 10/uL (0.00 - 0.00) MANUAL DIFF NOT INDICATED RBC MORPH NOT INDICATED.PROGRESS AND PROCEDURESCourse of Care: 14:38 05/06/21. Chest pain is reproducible. No new ischemic changes on EKG. Patient ishaving multiple complaints, including running out of power and water at his house. 15:32 05/06/21. No EKG changes when compared to previous. No hypoxia. Sodium is lower than baseline. No unstable vital signs. Critical care performed (35 minutes). Time is exclusive of separately billable procedures. Time includes: direct patient care and medical consultation. Discussed case with hospitalist. Patient/family counseled. Old medical records ordered. Disposition: Admitted to the Acute Inpatient Unit, Monitored.CLINICAL IMPRESSION 4 Clinical Report - Physicians/Mid Levels [facility] Emergency Department [address] [place] [address] Phone #: ext- [phone] 05/06/2021 14:09 Patient: MAGDY LEACH [facility]#: [id number] Sex: M : 1945 Age: 76y Chest wall pain Moderate hyponatremiaINSTRUCTIONS Warnings: Further evaluation is necessary. GENERAL WARNINGS: Return or contact your physician immediately if your condition worsens or changes unexpectedly, if not improving as expected, or if other problems arise. Your Current Medications: Your current home medications have been reviewed. CONTINUE TAKING THE FOLLOWING MEDICATIONS: amLODIPine Besylate Oral : 10 mg daily. Atorvastatin Calcium Oral : 40 mg daily. metFORMIN HCl Oral : 500 mg daily. Sertraline HCl Oral : 25 mg daily. Tamsulosin HCl Oral : 0.4 mg daily. Understanding of the discharge instructions verbalized by patient. Follow-up with: Paul Rushing MD, Cardiology, , [address] [place] [address], [id number] Follow up in two days if not well. Call for an appointment. Reason for referral: evaluation.(Electronically signed by Chris Barr 05/06/2021 18:27) Name Value Range Interpretation Code Description Data Alma rce(s) Supporting Document(s) ID Date Data Source [id number] 05/06/2021 02:37:00 PM EDT [facility] (Paul Rushing MD) Name Value Range Interpretation Code Description Data Alma rce(s) Supporting Document(s) Laboratory test finding (navigational concept) Laboratory test result [facility] (Paul Rushing MD) BASIC METABOLIC PANEL Laboratory test finding (navigational concept) 129 meq/L 1 34-153 Below low normal [facility] (Paul Rushing MD) Laboratory test finding (navigational concept) 93 meq/L 98-107 Below low normal [facility] (Paul Rushing MD) Laboratory test finding (navigational concept) 3.5 meq/L 3 .6-5.0 Below low normal [facility] (Paul Rushing MD) Laboratory test finding (navigational concept) 173 mg/dL 7 0-99 Above high normal [facility] (Paul Rushing MD) Laboratory test finding (navigational concept) 22 meq/L 22-30 [facility] (Paul Rushing MD) Laboratory test finding (navigational concept) 0.7 mg/dL 0.7-1.5 [facility] (Paul Rushing MD) Laboratory test finding (navigational concept) 19 mg/dL 7-21 [facility] (Paul Rushing MD) Laboratory test finding (navigational concept) 27 8-27 [facility] (Paul Rushing MD) Laboratory test finding (navigational concept) 9.3 mg/dL 8.4-10.2 [facility] (Paul Rushing MD) Laboratory test finding (navigational concept) 76 yrs [facility] (Paul Rushing MD) Laboratory test finding (navigational concept) 14.0 mmol/L 8.0-16.0 [facility] (Paul Rushing MD) Laboratory test finding (navigational concept) Laboratory test result [facility] (Paul Rushing MD) Laboratory test finding (navigational concept) Laboratory test result [facility] (Paul Rushing MD) Male GFR Interprentation 20-49 yrs >60 mL/min Normal 50-59 yrs >56 mL/min Normal 60-69 yrs >49 mL/min Normal 70-79yrs >42 mL/min Normal 80 and above >35 mL/min Normal Female GFR Interpretation 20-39 yrs >60 mL/min Normal 40-49 yrs >58 mL/min Normal 50-59 yrs >51 mL/min Normal 60-69 yrs >45 mL/min Normal 70-79 yrs >39 mL/min Normal 80 and above >32 mL/min Normal ID Date Data Source [id number] 05/06/2021 02:37:00 PM EDT [facility] (Paul Rushing MD) Name Value Range Interpretation Code Description Data Alma rce(s) Supporting Document(s) Troponin T.cardiac [Mass/volume] in Serum or Plasma Laborato ry test result 0.00-0.10 [facility] (Paul Rushing MD) TROPONIN T 0.1 ng/ml Recommended as the clinical th reshold value for Troponin T. ID Date Data Source [id number] 05/06/2021 02:37:00 PM EDT [facility] (Paul Rushing MD) Name Value Range Interpretation Code Description Data Alma rce(s) Supporting Document(s) Laboratory test finding (navigational concept) Laboratory test result [facility] (Paul Rushing MD) COMPLETE BLOOD COUNT Laboratory test finding (navigational concept) 4.77 10^6/uL 4.50-6.30 [facility] (Paul Rushing MD) Laboratory test finding (navigational concept) 7.7 10^3/uL 4.2-11.0 [facility] (Paul Rushing MD) Laboratory test finding (navigational concept) 14.0 g/dL 14.0-16.0 [facility] (Paul Rushing MD) Laboratory test finding (navigational concept) 39.8 % 4 1.0-51.0 Below low normal [facility] (Paul Rushing MD) Laboratory test finding (navigational concept) 29.4 pg 27.0-34.0 [facility] (Paul Rushing MD) Laboratory test finding (navigational concept) 83.4 fL 80.0-94.0 [facility] (Paul Rushing MD) Laboratory test finding (navigational concept) 35.2 g/dL 31.0-36.0 [facility] (Paul Rushing MD) Laboratory test finding (navigational concept) 12.8 % 11.5-14.8 [facility] (Paul Rushing MD) Laboratory test finding (navigational concept) 9.0 fL 7.4-10.4 [facility] (Paul Rushing MD) Laboratory test finding (navigational concept) 244 10^3/uL 150-450 [facility] (Paul Rushing MD) Laboratory test finding (navigational concept) 65.7 % 37.0-80.0 [facility] (Paul Rushing MD) Laboratory test finding (navigational concept) 23.3 % 2 5.0-40.0 Below low normal [facility] (Paul Rushing MD) Laboratory test finding (navigational concept) 8.9 % 3.0-8.0 Above high normal [facility] (Paul Rushing MD) Laboratory test finding (navigational concept) 1.2 % 0.0-7.0 [facility] (Paul Rushing MD) Laboratory test finding (navigational concept) 0.8 % 0.0-2.0 [facility] (Paul Rushing MD) Laboratory test finding (navigational concept) 0.1 % 0.0-0.0 Above high normal [facility] (Paul Rushing MD) Laboratory test finding (navigational concept) 5.04 10^3/uL 2.00-6.90 [facility] (Paul Rushing MD) Laboratory test finding (navigational concept) 0.0 % 0.0-0.0 [facility] (Paul Rushing MD) Laboratory test finding (navigational concept) 0.68 10^3/uL 0.00-0.90 [facility] (Paul Rushing MD) Laboratory test finding (navigational concept) 1.79 10^3/uL 0.60-3.40 [facility] (Paul Rushing MD) Laboratory test finding (navigational concept) 0.06 10^3/uL 0.00-0.20 [facility] (Paul Rushing MD) Laboratory test finding (navigational concept) 0.09 10^3/uL 0.00-0.70 [facility] (Paul Rushing MD) Laboratory test finding (navigational concept) 0.01 10^3/uL 0.00-0.10 [facility] (Paul Rushing MD) Laboratory test finding (navigational concept) 0.00 10^3/uL 0.00-0.00 [facility] (Paul Rushing MD) Laboratory test finding (navigational concept) Laboratory test result [facility] (Paul Rushing MD) Laboratory test finding (navigational concept) Laboratory test result [facility] (Paul Rushing MD) ID Date Data Source [id number] 05/06/2021 03:15:00 PM EDT [facility] Name Value Range Interpretation Code Description Data Alma rce(s) Supporting Document(s) BASIC METABOLIC PANEL [facility] BASIC METABOLIC PANEL Sodium [Moles/volume] in Serum or Plasma 129 mEq/L 134 - 153 L [facility] Potassium [Moles/volume] in Serum or Plasma 3.5 mEq/L 3.6 - 5.0 L [facility] Chloride [Moles/volume] in Serum or Plasma 93 mEq/L 98 - 107 L [facility] Carbon dioxide, total [Moles/volume] in Serum or Plasma 22 MEQ/L 22 - 30 [facility] Glucose [Mass/volume] in Serum or Plasma 173 MG/DL 70 - 99 H [facility] BUN 19 MG/DL 7 - 21 [facility] Creatinine [Mass/volume] in Serum or Plasma 0.7 MG/DL 0.7 - 1.5 [facility] BUN/CREAT 27 8 - 27 [facility] Calcium [Mass/volume] in Serum or Plasma 9.3 MG/DL 8.4 - 10.2 [facility] Anion gap 3 in Serum or Plasma 14.0 mmol/L 8.0 - 16.0 [facility] AGE [address] [facility] AFR AMER GFR >60 mL/min [facility] NON-AA GFR >60 mL/min [facility] Male GFR Inter prentation 20-49 yrs >60 mL/min Normal 50-59 yrs >56 mL/min Normal 60-69 yrs >49 mL/min Normal 70-79yrs >42 mL/min Normal 80 and above >35 mL/min Normal Female GFR Interpretation 20-39 yrs >60 mL/min Normal 40-49 yrs >58 mL/min Normal 50-59 yrs >51 mL/min Normal 60-69 yrs >45 mL/min Normal 70-79 yrs >39 mL/min Normal 80 and above >32 mL/min Normal ID Date Data Source [id number] 05/06/2021 03:15:00 PM EDT [facility] Name Value Range Interpretation Code Description Data Alma rce(s) Supporting Document(s) TROPONIN T <0.01 NG/ML 0.00 - 0.10 [facility] TROPONIN T0.1 ng/ml Recommended as the c linical threshold value forTroponin T. ID Date Data Source [id number] 05/06/2021 02:53:00 PM EDT [facility] Name Value Range Interpretation Code Description Data Alma rce(s) Supporting Document(s) CBC W/AUTOMATED DIFF [facility] COMPLETE BLOOD COUNT Leukocytes [#/volume] in Blood by Automated count 7.7 10^3/uL 4.2 - 1 1.0 [facility] Erythrocytes [#/volume] in Blood by Automated count 4.77 10^6/uL 4. 50 - 6.30 [facility] Hemoglobin [Mass/volume] in Blood 14.0 g/dL 14.0 - 16.0 [facility] Hematocrit [Volume Fraction] of Blood by Automated count 39.8 % 4 1.0 - 51.0 L [facility] Erythrocyte mean corpuscular volume [Entitic volume] by Auto mated count 83.4 fL 80.0 - 94.0 [facility] Erythrocyte mean corpuscular hemoglobin [Entitic mass] by Automated count 29.4 pg 27.0 - 34.0 [facility] Erythrocyte mean corpuscular hemoglobin concentration [Mass/volume] by Automated count 35.2 g/dL 31.0 - 36.0 [facility] Erythrocyte distribution width [Ratio] by Automated count 12.8 % 11.5 - 14.8 [facility] Platelets [#/volume] in Blood by Automated count 244 10^3/uL 150 - 45 0 [facility] Platelet mean volume [Entitic volume] in Blood by Automated count 9.0 fL 7.4 - 10.4 [facility] Neutrophils/100 leukocytes in Blood by Automated count 65.7 % 37. 0 - 80.0 [facility] Lymphocytes/100 leukocytes in Blood by Manual count 23.3 % 25.0 - 40.0 L [facility] Monocytes/100 leukocytes in Blood by Automated count 8.9 % 3.0 - 8.0 H [facility] Eosinophils/100 leukocytes in Blood by Automated count 1.2 % 0.0 - 7.0 [facility] Basophils/100 leukocytes in Blood by Automated count 0.8 % 0.0 - 2.0 [facility] %IG 0.1 % 0.0 - 0.0 [facility] %NRBC 0.0 % 0.0 - 0.0 [facility] Neutrophils [#/volume] in Blood by Automated count 5.04 10^3/uL 2.00 - 6.90 [facility] Lymphocytes [#/volume] in Blood by Automated count 1.79 10^3/uL 0.60 - 3.40 [facility] Monocytes [#/volume] in Blood by Automated count 0.68 10^3/uL 0.00 - 0.90 [facility] Eosinophils [#/volume] in Blood by Automated count 0.09 10^3/uL 0.00 - 0.70 [facility] Basophils [#/volume] in Blood by Automated count 0.06 10^3/uL 0.00 - 0.20 [facility] #IG 0.01 10^3/uL 0.00 - 0.10 [facility] #NRBC 0.00 10^3/uL 0.00 - 0.00 [facility] MANUAL DIFF NOT INDICATED [facility] RBC MORPH NOT INDICATED [facility] sp[facility] ID Date Data Source [id number] 03/21/2021 10:33:00 [place] [address] PROGRESS NOTENAME: HAYLEE Forrester ROOM#: [id number] OF : 1945 MR#: [id number] DATE: 03/15/21 OF SERVICE: 03/19/2021UBJECTIVE:The patient is unstable in gait, he is forgetful at times. Adult Protective went to the house and felt thehouse was not in good shape. The patient has a dog who is not being taken care of. Patient complainsof tiredness, fatigue. Dyspnea and wheezing improved.REVIEW OF SYSTEMS:CONSTITUTIONAL: The patient reports no anorexia, fever, night sweats, systemic illness, or recent weightgain/loss.HEAD: No head trauma or headaches.EYES: No blurred or double vision.ENT: No hearing loss, epistaxis, dysphagia, or sinus c ongestion.RESPIRATORY: No cough, CROW, wheezing, hemoptysis, sputum production, or SOB.CARDIOVASCULAR: No chest pain, rapid or irregular heartbeat, orthopnea, PND, or lower extremityedema.GI: No nausea, vomiting, abdominal pain, or change in bowel habits.: No pain with urination, urgency or frequency, blood in urine, difficulty starting or stopping urinarystream, urinary infection, stones, or cysts.MUSCULOSKELETAL: No arthritis, joint swelling, or joint stiffness.NEUROLOGIC: No dizziness, syncope, or weakness.ENDOCRINE: No excessive urination or excessive thirst.OBJECTIVE:GENERAL: Moderately built.VITAL SIGNS: Blood pressure 130/80.HEENT: Head is normal.HEART: Regular sinus rhythm.EXTREMITIES: No edema in the leg.NEUROLOGIC: Patient is severely unstable when he walks.ASSESSMENT/PLAN:1. He will get physical therapy.2. His serum sodium is 130. Plan to continue fluid at 1500 cc po for hyponatremia.3. Physical Therapy thinks that he is not safe for discharge. He is very unstable when he walks. [address] [place] [id number] PROGRESS NOTENAME: HAYLEE Forrester ROOM#: [id number] OF : 1945 MR#: [id number] DATE: 03/15/21 : Paul Rushing MD, PC 03/19/21 09:13DT: SSR 03/21/21 10:33DS: Paul Rushing MD, PC 03/30/21 08:27 2 Name Value Range Interpretation Code Description Data Alma rce(s) Supporting Document(s) ID Date Data Source [id number] 03/20/2021 01:26:00 [place] [address] PROGRESS NOTENAME: HAYLEE Forrester ROOM#: [id number] OF : 1945 MR#: [id number] DATE: 03/15/21 OF SERVICE: 03/20/2021UBJECTIVE:Patient remains unstable, difficulty walking. Hospital wants him to go to a rehab center, patientrefuses. Physical Therapy thinks he is unsafe for discharge. Patient is unstable in gait, though is gettingbetter.REVIEW OF SYSTEMS:CONSTITUTIONAL: The patient reports no anorexia, fever, night sweats, systemic illness, or recent weightgain/loss.HEAD: No head trauma or headaches.EYES: No blurred or double vision.ENT: No hearing loss, epistaxis, dysphagia, or sinus congestion.RESPIRATORY: No cough, CROW, wheezing, hemoptysis, sputum production, or SOB.CARDIOVASCULAR: No chest pain, rapid or irregular heartbeat, orthopnea, PND, or lower extremityedema.GI: No nausea, vomiting, abdominal pain, or change in bowel habits.: No pain with urination, urgency or frequency, blood in urine, difficulty starting or stopping urinarystream, urinary infection, stones, or cysts.MUSCULOSKELETAL: No arthritis, joint swelling, or joint stiffness.NEUROLOGIC: No dizziness, syncope, or weakness.ENDOCRINE: No excessive urination or excessive thirst.OBJECTIVE:GENERAL: Moderately built.VITAL SIGNS: Blood pressure 130/80.HEENT: Head is normal.HEART: Regular sinus rhythm.ASSESSMENT/PLAN:Patient still has unstable gait when he walks. His blood tests are stable, hemoglobin 14.8, sodium 131,potassium 4.3.The patient has the following issues:1. Mild hyponatremia. Plan to continue IV fluids 80 cc per 24 hours.2. Patient wants to sign out against medical advice. He does not want to go to rehab center. [address] [place] [address] PROGRESS NOTENAME: HAYLEE Forrester ROOM#: [id number] OF : 1945 MR#: [id number] DATE: 03/15/21 : Paul Rushing MD, PC 03/20/21 12:29DT: SSR 03/20/21 13:26DS: Paul Rushing MD, PC 03/30/21 08:27 2 Name Value Range Interpretation Code Description Data Alma rce(s) Supporting Document(s) ID Date Data Source [id number] 03/16/2021 11:55:00 [place] [address] PROGRESS NOTENAME: HAYLEE Forrester ROOM#: [id number] OF : 1945 MR#: [id number] DATE: 03/15/21 OF SERVICE: 03/16/21SUBJECTIVE: This patient complains of tiredness, fatigue and dyspnea on exertion. He is very unstable. PTthinks he is not stable enough to be discharged. The patient wants to go home.REVIEW OF SYSTEMS:CONSTITUTIONAL: The patient reports no anorexia, fever, night sweats, systemic illness, or recent weightgain/loss.HEAD: No head trauma or headaches.EYES: No blurred or double vision.ENT: No hearing loss, epistaxis, dysphagia, or sinus congestion.RESPIRATORY: No cough, CROW, wheezing, hemoptysis, sputum production, or SOB.CARDIOVASCULAR: Patient has dyspnea on minimal exertion.GI: No nausea, vomiting, abdominal pain, or change in bowel habits.: No pain with urination, urgency or frequency, blood in urine, difficulty starting or stopping urinarystream, urinary infection, stones, or cysts.MUSCULOSKELETAL: No arthritis, joint swelling, or joint stiffness.NEUROLOGIC: No dizziness, syncope, or weakness.ENDOCRINE: No excessive urination or excessive thirst.OBJECTIVE: On exam, moderately built. Blood pressure is 140/80. Head is normal. Heart is regular sinusrhythm. Lungs are clear. Abdomen is soft. Extremities are normal.LABORATORY DATA: WBC 5.6, RBC 4.72, hemoglobin 13.9 hematocrit 33.9, MCV 84.5, MCH 29.4,MCHC 34.8, RDW 12.7, platelets 288, MPV 9.4. Sodium 130, potassium 4.3, chloride 96, CO2 23, [id number], BUN 13, creatinine 0.5, BUN/creatinine ratio 26, calcium 8.8, anion gap 11.0.ASSESSMENT/PLAN: Patient has the following problems:1. Backache, for which Skelaxin is being given at 400 mg b.i.d.2. For pain in both knees, patient is getting a Lidoderm patches locally.3. Dyspnea on exertion and D-dimer is high at 1.2. Plan to do a CT of the lungs to rule out PE today.4. PT/OT is being done and patient is benefitting from PT/OT.DD: Paul Rushing MD, PC 03/16/21 09:37DT: [facility] 03/16/21 23:42DS: Paul Rushing MD, PC 03/30/21 08:27 1 Name Value Range Interpretation Code Description Data Alma rce(s) Supporting Document(s) ID Date Data Source [id number] 03/15/2021 11:26:00 [place] [address] PROGRESS NOTENAME: HAYLEE Forrester ROOM#: [id number] OF : 1945 MR#: [id number] DATE: 03/15/21 OF SERVICE: 03/15/21SUBJECTIVE: This patient became very unstable, has some cognitive problem. His memory is poor.Physical therapy wants a cognitive consult. PT/OT is being done. Patient has difficulty walking, is unstable ingait. Denies any chest pain or dyspnea. He came in with hyponatremia.REVIEW OF SYSTEMS:CONSTITUTIONAL: The patient reports no anorexia, fever, night sweats, systemic illness, or recent weightgain/loss.HEAD: No head trauma or headaches.EYES: No blurred or double vision.ENT: No hearing loss, epistaxis, dysphagia, or sinus congestion.RESPIRATORY: No cough, CROW, wheezing, hemoptysis, sputum production, or SOB.CARDIOVASCULAR: No chest pain, rapid or i rregular heartbeat, orthopnea, PND, or lower extremityedema.GI: No nausea, vomiting, abdominal pain, or change in bowel habits.: No pain with urination, urgency or frequency, blood in urine, difficulty starting or stopping urinarystream, urinary infection, stones, or cysts.MUSCULOSKELETAL: No arthritis, joint swelling, or joint stiffness.NEUROLOGIC: No dizziness, syncope, or weakness.ENDOCRINE: No excessive urination or excessive thirst.OBJECTIVE: On exam, moderately built. Blood pressure is 139/82. Head is normal. Heart is regular sinusrhythm. Lungs are clear. Abdomen is soft.ASSESSMENT/PLAN: Patient has neurologic deficit. Lab tests from yesterday showed that the Troponinwas normal. Sodium is 131, potassium is 3.7, blood sugar 192. Patient has known history of diabetes mellitus,hypertension, atypical chest pain. The nurses also noted there is some speech problem. Plan to get a speechtherapy and cognitive evaluation. We will stop the normal saline and do a CBC and CMP panel, magnesiumlevel, BNP, D-dimer, CRP, repeat EKG. We will also do a PSA level. He has some prostate problems andnocturia. We will consult Dr. Klein. PT/OT will be done. Physical therapy thought that he had difficultywalking and he is not a safe discharge, he is unstable when he walks.DD: Paul Rushing MD, PC 03/15/21 09:32DT: [facility] 03/15/21 11:17DS: Paul Rushing MD, PC 03/30/21 08:27 1 Name Value Range Interpretation Code Description Data Alma rce(s) Supporting Document(s) ID Date Data Source [id number] 03/21/2021 11:28:00 [place] [address] DISCHARGE SUMMARYNAME: HAYLEE Forrester ROOM#: [id number] OF : 1945 MR#: [id number] PHYS: Paul Rushing MD, PC [facility] [id number] DATE: 03/15/21 DISCHARGED: 03/21/21HISTORY OF PRESENT ILLNESS:This is 75-year-old white male presented with an episode of fall. He injured his left knee and hadpossible syncope. Patient claimed he was walking going to the window when suddenly he fainted,falling to the floor, causing injury to his left knee. He had an episode of syncope, and was admitted [facility]. On exam, blood pressure 130/80. Heart regular sinus rhythm. Lungs clear. Abdomen soft.Patient had a permanent pacemaker inserted in [place] for heart block. Admission impression wassyncope, episode of fall, injury left knee. The patient had tenderness of the left knee. CAT scan of theleft knee did not show any fracture or effusion.LABORATORY STUDIES:Lab tests showed that the ultrasound of the leg was negative for a blood clot. D-dimer 0.65. CAT scanof the brain was negative for any hematoma or blood clot. Sodium 132, potassium 3.6, BUN 19,creatinine 0.8, glucose 229. Patient has known history of chronic hyponatremia. X-ray of the left hipand knee was negative for fracture. Hemoglobin 15.1. Lactic acid was 3.1 on 03/14. On 03/14,hemoglobin 13.6, BNP was 267, T4 and TSH were normal. On 03/14, sodium 131, potassium 3.5,blood sugar 213, magnesium 1.6. Lactic acid was 2.7 on 03/14 repeat, sodium 1312, potassium 3.7,BUN 23, blood sugar 192, creatinine 0.7. Troponin was normal. On 03/16, hemoglobin was 13.9, [id number]. On 03/17, hemoglobin was 15.6, sodium 129. On 03/19, hemoglobin of 14.4, sodium 130. On03/21, sodium 131, potassium 4.4, BUN 26, creatinine 0.7, hemoglobin 15. Blood culture wasnegative.COURSE DURING HOSPITALIZATION:Patient was monitored closely with Telemetry monitoring, also orthostatic blood pressures were done.He did well, there was no drop in his blood pressure. He has a permanent pacemaker. The pacemakeris sensing well. PT/OT was consulted, who felt the patient was very unstable and not a safe discharge.Every day PT/OT was given. Patient started w alking much better, but not there as yet according PT, heneeds more rehab. For hyponatremia, normal saline 80 cc/hour was given. For low potassium, KCL 20mEq bid was given. For low magnesium, 2 grams of mag oxide was given IV. On 03/15, normal salinewas discontinued. He has a prostate problem and some frequency and micturition. Dr. Klein wasconsulted, I do not see his report. CAT scan of the chest was negative for PE. His blood culture wasnegative. Patient improved significantly. He was walking better. To discharge him, Physical Therapythought the patient needed further rehab, he is a risk for fall. Adult Protective Department wasconsulted, and they thought his house was not in good shape and he cannot handle himself at home.The patient was advised to stay longer for further rehab, he refused and signed out against medicaladvice. [address] [place] [address] DISCHARGE SUMMARYNAME: HAYLEE Forrester ROOM#: [id number] OF : 1945 MR#: [id number] PHYS: Paul Rushing MD, PC DATE: 03/15/21 DISCHARGED: 03/21/21He will be discharged on Lipitor 40 mg daily, Flomax 0.4 mg daily, Metformin 500 mg bid, [id number] mg daily, amlodipine cut down to 5 mg daily. In addition, patient was given Toradol for generalizedpain in the left knee and subsequently was stopped. Skelaxin 400 mg bid was given to help the pain.FINAL DIAGNOSES:1. SYNCOPE.2. POSSIBLE TRANSIENT ISCHEMIC ATTACK.3. PERMANENT PACEMAKER.4. HISTORY OF PULONARY EMBOLISM.5. HISTORY OF DIABETES.6. HISTORY OF INSTABILITY WITH GAIT, DECONDITIONED.DISCHARGE PLAN:He will be seen by me in one week. I will check the pacemaker in one month.DD: Paul Rushing MD, PC 03/21/21 09:25DT: [facility] 03/21/21 11:28DS: Paul Rushing MD, PC 03/30/21 08:27 2 Name Value Range Interpretation Code Description Data Alma rce(s) Supporting Document(s) ID Date Data Source [id number] 03/18/2021 11:29:00 PM EDT [address] [address] PROGRESS NOTENAME: HAYLEE Forrester ROOM#: [id number] OF : 1945 MR#: [id number] DATE: 03/15/21 OF SERVICE: 03/18/21SUBJECTIVE: Laboratory studies today show CBC is normal. Sodium is 127, potassium 4.0, chloride 92,CO2 is 24. Glucose is 214. Will restart his metformin in the AM. BUN is 24. Creatinine is 0.7. Patient has notbeen happy with having to follow a fluid restriction. I have explained to him to raise his sodium. He hasultimately cooperated. Will recheck level in the AM. Complains of cough. Will get a chest x-ray in the AM.He was complaining of anxiety over his bills at home, his dog, as he has been in the hospital so much. Havestarted him on Xanax 0.25 mg b.i.d. while in the hospital. He complained today of chest pain. EKG showed noacute ischemia. It lasted only a few minutes. Troponin was negative.OBJECTIVE: Blood pressure is 122/74. Pulse 80. Respirations 14. Temperature 97. O2 saturation is 99% onroom air. Patient is alert and oriented x3. Pharynx, tongue, and gums pink and moist. Tongue is midline. Neckis supple without lymphadenopathy. No thyromegaly or goiter. Chest is clear to auscultation without wheezesor retraction. Heart is regular. Abdomen is benign. Bowel sounds are positive. /rectal: Not done.Extremities: No cyanosis, clubbing or edema.ASSESSMENT/PLAN:1. Cough. Will get chest x-ray in the AM.2. Unsteady gait. Ambulated with walker and supervision. Will continue PT/OT.3. Left hip and knee pain. Continue PT/OT. Continue Lidoderm patches.4. Hyponatremia. Continue fluid restriction.5. Cough. Will get chest x-ray in the AM. Lee Quezada.DD: SHEILA Milton 03/18/21 22:22DT: [facility]UL[facility] 03/18/21 23:22DS: Delaney Brice SHEILA Wilson 03/21/21 09:18 1 Name Value Range Interpretation Code Description Data Alma rce(s) Supporting Document(s) ID Date Data Source [id number] 03/17/2021 09:57:00 [place] [address] PROGRESS NOTENAME: HAYLEE Forrester ROOM#: [id number] OF : 1945 MR#: [id number] DATE: 03/15/21 OF SERVICE: 03/17/21SUBJECTIVE: This is a 75-year-old male who came to the ER stating he could not walk. He fell at homeand came to the emergency room. He was complaining of pain in his lower back, left hip and left knee. Hesaid he was making his dinner and his legs gave out and he landed on the left side and he might have hit hishead. There was no fractures of the hip or knee. CT head and C-spine were negative. The patient was admittedfor questionable syncope, mild dehydration and hyponatremia, unsteady gait. Laboratory studies today showCBC was normal. Sodium was down to 129. Potassium was 4.5, chloride 94, CO2 23. Glucose was 205, buthe did not have his metformin secondary to having a CTA angio yesterday to rule out PE, which was ruledout. 48 hours from the time of the CT, he will have his metformin resumed. BUN is 16. Creatinine is 0.6.Patient continues to complain of left knee and hip pain, was unrelieved by Tylenol. We are utilizing lidocainepatch at night which helps and he can rest better. He was having 8-9 pain today. He is severely allergic tomorphine. States he gets anaphylactic shock. Could not use Toradol secondary to he is on Lovenox for DVTprophylaxis, so gave him Solu-Medrol, which did help and will continue the Tylenol in between andLidocaine patch. I discussed the hyponatremia with Dr. Rushing and patient will be placed on fluid restriction.OBJECTIVE: Patient remains afebrile. Temperature is 97.8. Blood pressure 122/68. Pulses 81. [id number]. O2 saturation is 91% on room air. Patient is alert and oriented x3. Pupils equal and reactive to light. EOMsare intact. Pharynx, tongue, and gums pink and moist. Tongue is midline. Neck is supple withoutlymphadenopathy. No thyromegaly or goiter. Chest has decreased breath sounds at the base. No wheeze orretraction. Heart is regular. Abdomen is benign. Bowel sounds are positive. /rectal: Not done. Extremities:no cyanosis, clubbing or edema. Pain in the knees bilaterally with flexion and extension. Peripheral pulsesequal and palpable bilaterally.ASSESSMENT/PLAN:1. Unstable gait.2. Left hip and knee pain. Will continue PT/OT.3. Hyponatremia. Patient will be placed on fluid restr iction.4. Telemetry shows no arrhythmia. Will continue to monitor5. Continue other medications without change.DD: SHEILA Milton 03/17/21 20:44DT: DULCE 03/17/21 20:50DS: SHEILA Milton 03/21/21 09:18 1 Name Value Range Interpretation Code Description [facility]s) ID Date Data Source [id number] 03/21/2021 06:33:00 AM EDT [facility] Name Value Range Interpretation Code Description Data [facility] Supporting Document(s) COMPREHENSIVE METABOLIC PANEL [facility] COMPREHENSIVE METABOLIC PANEL Sodium [Moles/volume] in Serum or Plasma 131 mEq/L 134 - 153 L [facility] Potassium [Moles/volume] in Serum or Plasma 4.4 mEq/L 3.6 - 5.0 [facility] Chloride [Moles/volume] in Serum or Plasma 96 mEq/L 98 - 107 L [facility] Carbon dioxide, total [Moles/volume] in Serum or Plasma 27 MEQ/L 22 - 30 [facility] Glucose [Mass/volume] in Serum or Plasma 182 MG/DL 70 - 99 H [facility] BUN 26 MG/DL 7 - 21 H [facility] Creatinine [Mass/volume] in Serum or Plasma 0.7 MG/DL 0.7 - 1.5 [facility] BUN/CREAT 37 8 - 27 H [facility] Protein [Mass/volume] in Serum or Plasma 6.2 G/DL 6.3 - 8.2 L [facility] Albumin [Mass/volume] in Serum or Plasma 3.9 G/DL 3.9 - 5.0 [facility] Globulin [Mass/volume] in Serum by calculation 2.3 GM/DL 2.4 - 3.2 L [facility] A/G RATIO 1.7 0.8 - 2.0 [facility] Calcium [Mass/volume] in Serum or Plasma 9.2 MG/DL 8.4 - 10.2 [facility] Bilirubin.total [Mass/volume] in Serum or Plasma <0.7 MG/DL 0.2 - 1.3 [facility] Alkaline phosphatase [Enzymatic activity/volume] in Serum or Plasma 149 U/L 38 - 126 H [facility] Aspartate aminotransferase [Enzymatic activity/volume] in Serum or Plasma 23 U/L 5 - 40 [facility] Alanine aminotransferase [Enzymatic activity/volume] in Seru m or Plasma 32 U/L 7 - 56 [facility] Anion gap 3 in Serum or Plasma 8.0 mmol/L 8.0 - 16.0 [facility] AGE 75 yrs [facility] NON-AA GFR >60 mL/min [facility] ital AFR AMER GFR >60 mL/min [facility] Male GFR In terprentation 20-49 yrs >60 mL/min Normal 50-59 yrs >56 mL/min Normal 60-69 yrs >49 mL/min Normal 70-79yrs >42 mL/min Normal 80 and above >35 mL/min Normal Female GFR Interpretation 20-39 yrs >60 mL/min Normal 40-49 yrs >58 mL/min Normal 50-59 yrs >51 mL/min Normal 60-69 yrs >45 mL/min Normal 70-79 yrs >39 mL/min Normal 80 and above >32 mL/min Normal ID Date Data Source [id number] 03/21/2021 06:24:00 AM EDT [facility] Name Value Range Interpretation Code Description Data [facility](s) Supporting Document(s) CBC W/AUTOMATED DIFF [facility] COMPLETE BLOOD COUNT Leukocytes [#/volume] in Blood by Automated count 6.1 10^3/uL 4.2 - 1 1.0 [facility] Erythrocytes [#/volume] in Blood by Automated count 5.01 10^6/uL 4. 50 - 6.30 [facility] Hemoglobin [Mass/volume] in Blood 15.0 g/dL 14.0 - 16.0 [facility] Hematocrit [Volume Fraction] of Blood by Automated count 43.4 % 4 1.0 - 51.0 [facility] Erythrocyte mean corpuscular volume [Entitic volume] by Auto mated count 86.6 fL 80.0 - 94.0 [facility] Erythrocyte mean corpuscular hemoglobin [Entitic mass] by Automated count 29.9 pg 27.0 - 34.0 [facility] Erythrocyte mean corpuscular hemoglobin concentration [Mass/volume] by Automated count 34.6 g/dL 31.0 - 36.0 [facility] Erythrocyte distribution width [Ratio] by Automated count 13.2 % 11.5 - 14.8 [facility] Platelets [#/volume] in Blood by Automated count 286 10^3/uL 150 - 45 0 [facility] Platelet mean volume [Entitic volume] in Blood by Automated count 8.8 fL 7.4 - 10.4 [facility] Neutrophils/100 leukocytes in Blood by Automated count 54.7 % 37. 0 - 80.0 [facility] Lymphocytes/100 leukocytes in Blood by Manual count 30.1 % 25.0 - 40.0 [facility] Monocytes/100 leukocytes in Blood by Automated count 11.1 % 3.0 - 8.0 H [facility] Eosinophils/100 leukocytes in Blood by Automated count 2.8 % 0.0 - 7.0 [facility] Basophils/100 leukocytes in Blood by Automated count 1.0 % 0.0 - 2.0 [facility] %IG 0.3 % 0.0 - 0.[address] [facility] %NRBC 0.0 % 0.0 - 0.0 [facility] Neutrophils [#/volume] in Blood by Automated count 3.36 10^3/uL 2.00 - 6.90 [facility] Lymphocytes [#/volume] in Blood by Automated count 1.85 10^3/uL 0.60 - 3.40 [facility] Monocytes [#/volume] in Blood by Automated count 0.68 10^3/uL 0.00 - 0.90 [facility] Eosinophils [#/volume] in Blood by Automated count 0.17 10^3/uL 0.00 - 0.70 [facility] Basophils [#/volume] in Blood by Automated count 0.06 10^3/uL 0.00 - 0.20 [facility] #IG 0.02 10^3/uL 0.00 - 0.10 [facility] #NRBC 0.00 10^3/uL 0.00 - 0.00 [facility]ital MANUAL DIFF NOT INDICATED [facility] RBC MORPH NOT INDICATED [facility] spital ID Date Data Source [id number] 03/20/2021 07:09:00 AM EDT [facility] Name Value Range Interpretation Code Description Data [facility](s) Supporting Document(s) COMPREHENSIVE METABOLIC PANEL [facility] COMPREHENSIVE METABOLIC PANEL Sodium [Moles/volume] in Serum or Plasma 131 mEq/L 134 - 153 L [facility] Potassium [Moles/volume] in Serum or Plasma 4.3 mEq/L 3.6 - 5.0 [facility] Chloride [Moles/volume] in Serum or Plasma 95 mEq/L 98 - 107 L [facility] Carbon dioxide, total [Moles/volume] in Serum or Plasma 26 MEQ/L 22 - 30 [facility] Glucose [Mass/volume] in Serum or Plasma 157 MG/DL 70 - 99 H [facility] BUN 24 MG/DL 7 - 21 H [facility] al Creatinine [Mass/volume] in Serum or Plasma 0.6 MG/DL 0.7 - 1.5 L [facility] BUN/CREAT 40 8 - 27 H [facility] Protein [Mass/volume] in Serum or Plasma 6.3 G/DL 6.3 - 8.2 [facility] Albumin [Mass/volume] in Serum or Plasma 3.9 G/DL 3.9 - 5.0 [facility] Globulin [Mass/volume] in Serum by calculation 2.4 GM/DL 2.4 - 3.2 [facility] A/G RATIO 1.6 0.8 - 2.0 [facility] Calcium [Mass/volume] in Serum or Plasma 8.9 MG/DL 8.4 - 10.2 [facility] Bilirubin.total [Mass/volume] in Serum or Plasma <0.7 MG/DL 0.2 - 1.3 [facility] Alkaline phosphatase [Enzymatic activity/volume] in Serum or Plasma 140 U/L 38 - 126 H [facility] Aspartate aminotransferase [Enzymatic activity/volume] in Serum or Plasma 24 U/L 5 - 40 [facility] Alanine aminotransferase [Enzymatic activity/volume] in Seru m or Plasma 31 U/L 7 - 56 [facility] Anion gap 3 in Serum or Plasma 10.0 mmol/L 8.0 - 16.0 [facility] AGE 75 yrs [facility] al NON-AA GFR >60 mL/min [facility] ital AFR AMER GFR >60 mL/min [facility] Male GFR In terprentation 20-49 yrs >60 mL/min Normal 50-59 yrs >56 mL/min Normal 60-69 yrs >49 mL/min Normal 70-79yrs >42 mL/min Normal 80 and above >35 mL/min Normal Female GFR Interpretation 20-39 yrs >60 mL/min Normal 40-49 yrs >58 mL/min Normal 50-59 yrs >51 mL/min Normal 60-69 yrs >45 mL/min Normal 70-79 yrs >39 mL/min Normal 80 and above >32 mL/min Normal ID Date Data Source [id number] 03/20/2021 06:57:00 AM EDT [facility] Name Value Range Interpretation Code Description Data [facility](s) Supporting Document(s) CBC W/AUTOMATED DIFF [facility] COMPLETE BLOOD COUNT Leukocytes [#/volume] in Blood by Automated count 5.9 10^3/uL 4.2 - 1 1.0 [facility] Erythrocytes [#/volume] in Blood by Automated count 5.02 10^6/uL 4. 50 - 6.30 [facility] Hemoglobin [Mass/volume] in Blood 14.8 g/dL 14.0 - 16.0 [facility] Hematocrit [Volume Fraction] of Blood by Automated count 43.5 % 4 1.0 - 51.0 [facility] Erythrocyte mean corpuscular volume [Entitic volume] by Auto mated count 86.7 fL 80.0 - 94.0 [facility] Erythrocyte mean corpuscular hemoglobin [Entitic mass] by Automated count 29.5 pg 27.0 - 34.0 [facility] Erythrocyte mean corpuscular hemoglobin concentration [Mass/volume] by Automated count 34.0 g/dL 31.0 - 36.0 [facility] Erythrocyte distribution width [Ratio] by Automated count 13.2 % 11.5 - 14.8 [facility] Platelets [#/volume] in Blood by Automated count 299 10^3/uL 150 - 45 0 [facility] Platelet mean volume [Entitic volume] in Blood by Automated count 9.0 fL 7.4 - 10.4 [facility] Neutrophils/100 leukocytes in Blood by Automated count 48.5 % 37. 0 - 80.0 [facility] Lymphocytes/100 leukocytes in Blood by Manual count 35.7 % 25.0 - 40.0 [facility] Monocytes/100 leukocytes in Blood by Automated count 10.4 % 3.0 - 8.0 H [facility] Eosinophils/100 leukocytes in Blood by Automated count 3.9 % 0.0 - 7.0 [facility] Basophils/100 leukocytes in Blood by Automated count 1.0 % 0.0 - 2.0 [facility] %IG 0.5 % 0.0 - 0.0 [facility] %[facility] 0.0 % 0.0 - 0.0 [facility] al Neutrophils [#/volume] in Blood by Automated count 2.85 10^3/uL 2.00 - 6.90 [facility] Lymphocytes [#/volume] in Blood by Automated count 2.10 10^3/uL 0.60 - 3.40 [facility] Monocytes [#/volume] in Blood by Automated count 0.61 10^3/uL 0.00 - 0.90 [facility] Eosinophils [#/volume] in Blood by Automated count 0.23 10^3/uL 0.00 - 0.70 [facility] Basophils [#/volume] in Blood by Automated count 0.06 10^3/uL 0.00 - 0.20 [facility] #IG 0.03 10^3/uL 0.00 - 0.10 [facility] #NRBC 0.00 10^3/uL 0.00 - 0.00 [facility] MANUAL DIFF NOT INDICATED [facility] RBC MORPH NOT INDICATED [facility] ID Date Data Source [id number] 03/19/2021 07:11:00 [place] [address] RESPIRATORY CARE REPORT ==== ---------NAME------- NUMBER SEX AGE ADMIT DISC. XRAY# F/C KHARI Forrester [id number] M 75 03/15/21 [id number] M4 I/P DATE OF : 1945 M/R# [id number] PH#: [phone] [id number] LOCATION: EMERGENCY DEPT EKG 53611 COMP LETE:03/19/21 02:40 VMT [id number] PHYSICIAN: J LUIS WILSON Name Value Range Interpretation Code Description Data [facility] r[facility](s) Supporting Document(s) ID Date Data Source [id number] 03/19/2021 04:52:00 [place] [address] PHONE: [phone] FAX: [phone] Name .................. : HAYLEE Forrester Acct Number.................. : [id number] ROOM. ................. : CCU1 MR Number ................... : [id number] Stay type ............. : I/P Discharge Date......... ... : Admit Date ......... : 03/15/21 Admit Phys .................... : J LUIS VIDA Date of ....... : 1945 Family Phys ................... : J LUIS VIDA Phone .................. : [phone] Age ................................ : 75 Film# .................. .:[id number] Sex ................................. : M Unsigned transcriptions are preliminary reports and do not represent a medical or legal document CT CTA CHEST NON-CORONARY W 31489 COMPLETE:03/16/21 13:35 KBO 93631 Reason for Exam: PE CTA OF THE C HEST WITH CONTRAST: INDICATION: PE FINDINGS: The neck base is clear. There is a left-sided cardiac conduction device. Motion artifact limits evaluation of the lungs. There is grossly no focal infiltrate. The heart is normal in size. No central or segmental pulmonary embolism is noted. Motion artifact limits evaluation of the smaller vessels. The ascending thoracic aorta at the level of the main pulmonary artery measures 4.6 cm in diameter. The visualized upper abdomen demonstrates no acute abnormality. There is no acute osseous abnormality. IMPRESSION: 1. This examination is markedly limited by motion artifact. 2. No central or segmental pulmonary embolism. 3. Grossly no acute pulmonary process. 4. Dilated ascending thoracic aorta up to 4.6 cm at the level of the main pulmonary artery. Recommend CT follow up in one year. While performing the above CT examination, radiation dose reduction was accomplished utilizing automated exposure control, adjusting of the mA and kV based on the patient's body size and/or the use of imperative reconstructive techniques. Page 1 of 2 [facility] [address] [place] [address] [place] [address] PHONE: [phone] FAX: [phone] Name .................. : HAYLEE Forrester Acct Number.................. : [id number] ROOM. ................. : CCU1 MR Number ................... : [id number] Stay type ............. : I/P Discharge Date......... ... : Admit Date ......... : 03/15/21 Admit Phys .................... : J LUIS VIDA Date of ....... : 1945 Family Phys ................... : J LUIS VIDA Phone .................. : [phone] Age ................................ : 75 Film# .................. .:[id number] Sex ................................. : M Unsigned transcriptions are preliminary reports and do not represent a medical or legal document CT CTA CHEST NON-CORONARY [place] [address] COMPLETE:03/16/21 13:35 KBO 84946 Reason for Exam: PE CT dose: 644.0 mGycm Contrast agent in mL: 75 [facility] 370 Method of administration: Intravenous Electronically Reviewed and Signed By Efren Cuellar M.D. , 03/19/21 16:52, [place] Transcribe Initials: DZ , Transcribe Date: 03/17/21 02:56, Dictation Date: Copy for: 002 [facility] Copy for: 710 [facility] REC Page 2 of 2 Name Value Range Interpretation Code Description Data [facility] rce(s) Supporting Document(s) ID Date Data Source [id number] 03/19/2021 06:41:00 AM EDT [facility] Name Value Range Interpretation Code Description Data [facility] r[facility](s) Supporting Document(s) COMPREHENSIVE METABOLIC PANEL [facility] COMPREHENSIVE METABOLIC PANEL Sodium [Moles/volume] in Serum or Plasma 130 mEq/L 134 - 153 L [facility] Potassium [Moles/volume] in Serum or Plasma 4.2 mEq/L 3.6 - 5.0 [facility] Chloride [Moles/volume] in Serum or Plasma 97 mEq/L 98 - 107 L [facility] Carbon dioxide, total [Moles/volume] in Serum or Plasma 24 MEQ/L 22 - 30 [facility] Glucose [Mass/volume] in Serum or Plasma 200 MG/DL 70 - 99 H [facility] BUN 26 MG/DL 7 - 21 [facility] Creatinine [Mass/volume] in Serum or Plasma 0.6 MG/DL 0.7 - 1.5 L [facility] BUN/CREAT 43 8 - 27 [facility] Protein [Mass/volume] in Serum or Plasma 6.1 G/DL 6.3 - 8.2 L [facility] Albumin [Mass/volume] in Serum or Plasma 3.9 G/DL 3.9 - 5.0 [facility] Globulin [Mass/volume] in Serum by calculation 2.2 GM/DL 2.4 - 3.2 L [facility] A/G RATIO 1.8 0.8 - 2.0 [facility] al Calcium [Mass/volume] in Serum or Plasma 8.8 MG/DL 8.4 - 10.2 [facility] Bilirubin.total [Mass/volume] in Serum or Plasma <0.7 MG/DL 0.2 - 1.3 [facility] Alkaline phosphatase [Enzymatic activity/volume] in Serum or Plasma 140 U/L 38 - 126 H [facility] Aspartate aminotransferase [Enzymatic activity/volume] in Serum or Plasma 24 U/L 5 - 40 [facility] Alanine aminotransferase [Enzymatic activity/volume] in Seru m or Plasma 29 U/L 7 - 56 [facility] Anion gap 3 in Serum or Plasma 9.0 mmol/L 8.0 - 16.0 [facility] AGE [address] [facility] NON-AA GFR >60 mL/min [facility] AFR AMER GFR >60 mL/min [facility] Male GFR In terprentation 20-49 yrs >60 mL/min Normal 50-59 yrs >56 mL/min Normal 60-69 yrs >49 mL/min Normal 70-79yrs >42 mL/min Normal 80 and above >35 mL/min Normal Female GFR Interpretation 20-39 yrs >60 mL/min Normal 40-49 yrs >58 mL/min Normal 50-59 yrs >51 mL/min Normal 60-69 yrs >45 mL/min Normal 70-79 yrs >39 mL/min Normal 80 and above >32 mL/min Normal ID Date Data Source [id number] 03/19/2021 05:58:00 AM EDT [facility] Name Value Range Interpretation Code Description Data [facility] rce(s) Supporting Document(s) CBC W/AUTOMATED DIFF [facility] COMPLETE BLOOD COUNT Leukocytes [#/volume] in Blood by Automated count 7.0 10^3/uL 4.2 - 1 1.0 [facility] Erythrocytes [#/volume] in Blood by Automated count 4.83 10^6/uL 4. 50 - 6.30 [facility] Hemoglobin [Mass/volume] in Blood 14.4 g/dL 14.0 - 16.0 [facility] Hematocrit [Volume Fraction] of Blood by Automated count 41.4 % 4 1.0 - 51.0 [facility] Erythrocyte mean corpuscular volume [Entitic volume] by Auto mated count 85.7 fL 80.0 - 94.0 [facility] Erythrocyte mean corpuscular hemoglobin [Entitic mass] by Automated count 29.8 pg 27.0 - 34.0 [facility] Erythrocyte mean corpuscular hemoglobin concentration [Mass/volume] by Automated count 34.8 g/dL 31.0 - 36.0 [facility] Erythrocyte distribution width [Ratio] by Automated count 13.2 % 11.5 - 14.8 [facility] Platelets [#/volume] in Blood by Automated count 299 10^3/uL 150 - 45 0 [facility] Platelet mean volume [Entitic volume] in Blood by Automated count 8.9 fL 7.4 - 10.4 [facility] Neutrophils/100 leukocytes in Blood by Automated count 51.7 % 37. 0 - 80.0 [facility] Lymphocytes/100 leukocytes in Blood by Manual count 35.5 % 25.0 - 40.0 [facility] Monocytes/100 leukocytes in Blood by Automated count 8.2 % 3.0 - 8.0 H [facility] Eosinophils/100 leukocytes in Blood by Automated count 3.3 % 0.0 - 7.0 [facility] Basophils/100 leukocytes in Blood by Automated count 1.0 % 0.0 - 2.0 [facility] %IG 0.3 % 0.0 - 0.0 H [facility] al %NRBC 0.0 % 0.0 - 0.0 [facility] al Neutrophils [#/volume] in Blood by Automated count 3.64 10^3/uL 2.00 - 6.90 [facility] Lymphocytes [#/volume] in Blood by Automated count 2.50 10^3/uL 0.60 - 3.40 [facility] Monocytes [#/volume] in Blood by Automated count 0.58 10^3/uL 0.00 - 0.90 [facility] Eosinophils [#/volume] in Blood by Automated count 0.23 10^3/uL 0.00 - 0.70 [facility] Basophils [#/volume] in Blood by Automated count 0.07 10^3/uL 0.00 - 0.20 [facility] #IG 0.02 10^3/uL 0.00 - 0.10 [facility]spital #NRBC 0.00 10^3/uL 0.00 - 0.00 [facility] MANUAL DIFF NOT INDICATED [facility] RBC MORPH NOT INDICATED [facility] ID Date Data Source [id number] 03/18/2021 08:07:00 PM EDT [facility] Name Value Range Interpretation Code Description Data [facility] r[facility](s) Supporting Document(s) TROPONIN T <0.01 NG/ML 0.00 - 0.10 [facility] TROPONIN T0.1 ng/ml Recommended as the c linical threshold value forTroponin T. ID Date Data Source [id number] 03/18/2021 02:57:00 PM EDT [facility] Name Value Range Interpretation Code Description Data [facility](s) Supporting Document(s) COMPREHENSIVE METABOLIC PANEL [facility] COMPREHENSIVE METABOLIC PANEL Sodium [Moles/volume] in Serum or Plasma 127 mEq/L 134 - 153 L [facility] Potassium [Moles/volume] in Serum or Plasma 4.0 mEq/L 3.6 - 5.0 [facility] Chloride [Moles/volume] in Serum or Plasma 92 mEq/L 98 - 107 L [facility] Carbon dioxide, total [Moles/volume] in Serum or Plasma 24 MEQ/L 22 - 30 [facility] Glucose [Mass/volume] in Serum or Plasma 214 MG/DL 70 - 99 H [facility] BUN 24 MG/DL 7 - 21 [facility] Creatinine [Mass/volume] in Serum or Plasma 0.7 MG/DL 0.7 - 1.5 [facility] BUN/CREAT 34 8 - 27 [facility] Protein [Mass/volume] in Serum or Plasma 6.7 G/DL 6.3 - 8.2 [facility] Albumin [Mass/volume] in Serum or Plasma 4.0 G/DL 3.9 - 5.0 [facility] Globulin [Mass/volume] in Serum by calculation 2.7 GM/DL 2.4 - 3.2 [facility] A/G RATIO 1.5 0.8 - 2.0 [facility] Calcium [Mass/volume] in Serum or Plasma 9.5 MG/DL 8.4 - 10.2 [facility] Bilirubin.total [Mass/volume] in Serum or Plasma <0.7 MG/DL 0.2 - 1.3 [facility] Alkaline phosphatase [Enzymatic activity/volume] in Serum or Plasma 155 U/L 38 - 126 H [facility] Aspartate aminotransferase [Enzymatic activity/volume] in Serum or Plasma 23 U/L 5 - 40 [facility] Alanine aminotransferase [Enzymatic activity/volume] in Seru m or Plasma 28 U/L 7 - 56 [facility] Anion gap 3 in Serum or Plasma 11.0 mmol/L 8.0 - 16.0 [facility]GE 75 [facility] >60 mL/min [facility] ital AFR AMER GFR >60 mL/min [facility] Male GFR In terprentation 20-49 yrs >60 mL/min Normal 50-59 yrs >56 mL/min Normal 60-69 yrs >49 mL/min Normal 70-79yrs >42 mL/min Normal 80 and above >35 mL/min Normal Female GFR Interpretation 20-39 yrs >60 mL/min Normal 40-49 yrs >58 mL/min Normal 50-59 yrs >51 mL/min Normal 60-69 yrs >45 mL/min Normal 70-79 yrs >39 mL/min Normal 80 and above >32 mL/min Normal ID Date Data Source [id number] 03/18/2021 02:49:00 PM EDT [facility] Name Value Range Interpretation Code Description Data [facility] rce(s) Supporting Document(s) CBC W/AUTOMATED DIFF [facility] COMPLETE BLOOD COUNT Leukocytes [#/volume] in Blood by Automated count 8.4 10^3/uL 4.2 - 1 1.0 [facility] Erythrocytes [#/volume] in Blood by Automated count 5.14 10^6/uL 4. 50 - 6.30 [facility] Hemoglobin [Mass/volume] in Blood 15.3 g/dL 14.0 - 16.0 [facility] Hematocrit [Volume Fraction] of Blood by Automated count 43.5 % 4 1.0 - 51.0 [facility] Erythrocyte mean corpuscular volume [Entitic volume] by Auto mated count 84.6 fL 80.0 - 94.0 [facility] Erythrocyte mean corpuscular hemoglobin [Entitic mass] by Automated count 29.8 pg 27.0 - 34.0 [facility] Erythrocyte mean corpuscular hemoglobin concentration [Mass/volume] by Automated count 35.2 g/dL 31.0 - 36.0 [facility] Erythrocyte distribution width [Ratio] by Automated count 13.0 % 11.5 - 14.8 [facility] Platelets [#/volume] in Blood by Automated count 320 10^3/uL 150 - 45 0 [facility] Platelet mean volume [Entitic volume] in Blood by Automated count 9.0 fL 7.4 - 10.4 [facility] Neutrophils/100 leukocytes in Blood by Automated count 74.3 % 37. 0 - 80.0 [facility] Lymphocytes/100 leukocytes in Blood by Manual count 16.1 % 25.0 - 40.0 L [facility] Monocytes/100 leukocytes in Blood by Automated count 8.6 % 3.0 - 8.0 H [facility] Eosinophils/100 leukocytes in Blood by Automated count 0.4 % 0.0 - 7.0 [facility] Basophils/100 leukocytes in Blood by Automated count 0.2 % 0.0 - 2.0 [facility] %IG 0.4 % 0.0 - 0.0 [facility] % 0.0 - 0.0 [facility] al Neutrophils [#/volume] in Blood by Automated count 6.25 10^3/uL 2.00 - 6.90 [facility] Lymphocytes [#/volume] in Blood by Automated count 1.35 10^3/uL 0.60 - 3.40 [facility] Monocytes [#/volume] in Blood by Automated count 0.72 10^3/uL 0.00 - 0.90 [facility] Eosinophils [#/volume] in Blood by Automated count 0.03 10^3/uL 0.00 - 0.70 [facility] Basophils [#/volume] in Blood by Automated count 0.02 10^3/uL 0.00 - 0.20 [facility] #IG 0.03 10^3/uL 0.00 - 0.10 [facility] #NRBC 0.00 10^3/uL 0.00 - 0.00 [facility] MANUAL DIFF NOT INDICATED [facility] RBC MORPH NOT INDICATED [facility] spital ID Date Data Source [id number] 03/17/2021 12:17:00 PM EDT [facility] Name Value Range Interpretation Code Description Data Alma rce(s) Supporting Document(s) COMPREHENSIVE METABOLIC PANEL [facility] COMPREHENSIVE METABOLIC PANEL Sodium [Moles/volume] in Serum or Plasma 129 mEq/L 134 - 153 L [facility] Potassium [Moles/volume] in Serum or Plasma 4.5 mEq/L 3.6 - 5.0 [facility] Chloride [Moles/volume] in Serum or Plasma 94 mEq/L 98 - 107 L [facility] Carbon dioxide, total [Moles/volume] in Serum or Plasma 23 MEQ/L 22 - 30 [facility] Glucose [Mass/volume] in Serum or Plasma 205 MG/DL 70 - 99 H [facility] BUN 16 MG/DL 7 - 21 [facility] Creatinine [Mass/volume] in Serum or Plasma 0.6 MG/DL 0.7 - 1.5 L [facility] BUN/CREAT 27 8 - 27 [facility] Protein [Mass/volume] in Serum or Plasma 6.8 G/DL 6.3 - 8.2 [facility] Albumin [Mass/volume] in Serum or Plasma 4.1 G/DL 3.9 - 5.0 [facility] Globulin [Mass/volume] in Serum by calculation 2.7 GM/DL 2.4 - 3.2 [facility] A/G RATIO 1.5 0.8 - 2.0 [facility] Calcium [Mass/volume] in Serum or Plasma 9.5 MG/DL 8.4 - 10.2 [facility] Bilirubin.total [Mass/volume] in Serum or Plasma <0.7 MG/DL 0.2 - 1.3 [facility] Alkaline phosphatase [Enzymatic activity/volume] in Serum or Plasma 162 U/L 38 - 126 H [facility] Aspartate aminotransferase [Enzymatic activity/volume] in Serum or Plasma 19 U/L 5 - 40 [facility] Alanine aminotransferase [Enzymatic activity/volume] in Seru m or Plasma 23 U/L 7 - 56 [facility] Anion gap 3 in Serum or Plasma 12.0 mmol/L 8.0 - 16.0 [facility] AGE [address] [facility] NON-AA GFR >60 mL/min [facility] AFR AMER GFR >60 mL/min [facility] Male GFR In terprentation 20-49 yrs >60 mL/min Normal 50-59 yrs >56 mL/min Normal 60-69 yrs >49 mL/min Normal 70-79yrs >42 mL/min Normal 80 and above >35 mL/min Normal Female GFR Interpretation 20-39 yrs >60 mL/min Normal 40-49 yrs >58 mL/min Normal 50-59 yrs >51 mL/min Normal 60-69 yrs >45 mL/min Normal 70-79 yrs >39 mL/min Normal 80 and above >32 mL/min Normal ID Date Data Source [id number] 03/17/2021 11:48:00 AM EDT [facility] Name Value Range Interpretation Code Description Data Alma rce(s) Supporting Document(s) CBC W/AUTOMATED DIFF [facility] COMPLETE BLOOD COUNT Leukocytes [#/volume] in Blood by Automated count 5.4 10^3/uL 4.2 - 1 1.0 [facility] Erythrocytes [#/volume] in Blood by Automated count 5.32 10^6/uL 4. 50 - 6.30 [facility] Hemoglobin [Mass/volume] in Blood 15.6 g/dL 14.0 - 16.0 [facility] Hematocrit [Volume Fraction] of Blood by Automated count 45.0 % 4 1.0 - 51.0 [facility] Erythrocyte mean corpuscular volume [Entitic volume] by Auto mated count 84.6 fL 80.0 - 94.0 [facility] Erythrocyte mean corpuscular hemoglobin [Entitic mass] by Automated count 29.3 pg 27.0 - 34.0 [facility] Erythrocyte mean corpuscular hemoglobin concentration [Mass/volume] by Automated count 34.7 g/dL 31.0 - 36.0 [facility] Erythrocyte distribution width [Ratio] by Automated count 13.1 % 11.5 - 14.8 [facility] Platelets [#/volume] in Blood by Automated count 341 10^3/uL 150 - 45 0 [facility] Platelet mean volume [Entitic volume] in Blood by Automated count 8.7 fL 7.4 - 10.4 [facility] Neutrophils/100 leukocytes in Blood by Automated count 57.0 % 37. 0 - 80.0 [facility] Lymphocytes/100 leukocytes in Blood by Manual count 28.6 % 25.0 - 40.0 [facility] Monocytes/100 leukocytes in Blood by Automated count 9.4 % 3.0 - 8.0 H [facility] Eosinophils/100 leukocytes in Blood by Automated count 3.7 % 0.0 - 7.0 [facility] Basophils/100 leukocytes in Blood by Automated count 0.9 % 0.0 - 2.0 [facility] %IG 0.4 % 0.0 - 0.[address] [facility] %NRBC 0.0 % 0.0 - 0.0 [facility] al Neutrophils [#/volume] in Blood by Automated count 3.09 10^3/uL 2.00 - 6.90 [facility] Lymphocytes [#/volume] in Blood by Automated count 1.55 10^3/uL 0.60 - 3.40 [facility] Monocytes [#/volume] in Blood by Automated count 0.51 10^3/uL 0.00 - 0.90 [facility] Eosinophils [#/volume] in Blood by Automated count 0.20 10^3/uL 0.00 - 0.70 [facility] Basophils [#/volume] in Blood by Automated count 0.05 10^3/uL 0.00 - 0.20 [facility] #IG 0.02 10^3/uL 0.00 - 0.10 [facility]ital #NRBC 0.00 10^3/uL 0.00 - 0.00 [facility] MANUAL DIFF NOT INDICATED [facility] RBC MORPH NOT INDICATED [facility] ID Date Data Source [id number] 03/16/2021 10:10:00 AM EDT [facility] Name Value Range Interpretation Code Description Data Alma rce(s) Supporting Document(s) COMPREHENSIVE METABOLIC PANEL [facility] COMPREHENSIVE METABOLIC PANEL Sodium [Moles/volume] in Serum or Plasma 130 mEq/L 134 - 153 L [facility] Potassium [Moles/volume] in Serum or Plasma 4.3 mEq/L 3.6 - 5.0 [facility] Chloride [Moles/volume] in Serum or Plasma 96 mEq/L 98 - 107 L [facility] Carbon dioxide, total [Moles/volume] in Serum or Plasma 23 MEQ/L 22 - 30 [facility] Glucose [Mass/volume] in Serum or Plasma 194 MG/DL 70 - 99 H [facility] BUN 13 MG/DL 7 - 21 [facility] Creatinine [Mass/volume] in Serum or Plasma 0.5 MG/DL 0.7 - 1.5 L [facility] BUN/CREAT 26 8 - 27 [facility] Protein [Mass/volume] in Serum or Plasma 6.0 G/DL 6.3 - 8.2 L [facility] Albumin [Mass/volume] in Serum or Plasma 3.7 G/DL 3.9 - 5.0 L [facility] Globulin [Mass/volume] in Serum by calculation 2.3 GM/DL 2.4 - 3.2 L [facility] A/G RATIO 1.6 0.8 - 2.0 [facility] Calcium [Mass/volume] in Serum or Plasma 8.8 MG/DL 8.4 - 10.2 [facility] Bilirubin.total [Mass/volume] in Serum or Plasma <0.7 MG/DL 0.2 - 1.3 [facility] Alkaline phosphatase [Enzymatic activity/volume] in Serum or Plasma 155 U/L 38 - 126 H [facility] Aspartate aminotransferase [Enzymatic activity/volume] in Serum or Plasma 24 U/L 5 - 40 [facility] Alanine aminotransferase [Enzymatic activity/volume] in Seru m or Plasma 22 U/L 7 - 56 [facility] Anion gap 3 in Serum or Plasma 11.0 mmol/L 8.0 - 16.0 [facility] AGE 75 yrs [facility] NON-AA GFR >60 mL/min [facility] AFR AMER GFR >60 mL/min [facility] Male GFR In terprentation 20-49 yrs >60 mL/min Normal 50-59 yrs >56 mL/min Normal 60-69 yrs >49 mL/min Normal 70-79yrs >42 mL/min Normal 80 and above >35 mL/min Normal Female GFR Interpretation 20-39 yrs >60 mL/min Normal 40-49 yrs >58 mL/min Normal 50-59 yrs >51 mL/min Normal 60-69 yrs >45 mL/min Normal 70-79 yrs >39 mL/min Normal 80 and above >32 mL/min Normal ID Date Data Source [id number] 03/16/2021 07:43:00 AM EDT [facility] Name Value Range Interpretation Code Description Data Alma rce(s) Supporting Document(s) C reactive protein [Mass/volume] in Serum or Plasma by High sensitivity method 44.15 MG/L 1.00 - 3.00 H [facility] CDC/[facility] HS-CRP CUT-OFF: RELATIVE RISK: <1.0 mg/L Low 1.0 - 3.0 mg/L Average >3.0 mg/L High Optimally, the average of HS-CRP results repeated two weeks apart should be used for risk assessment. ID Date Data Source [id number] 03/16/2021 07:26:00 AM EDT [facility] Value Range Interpretation Code Description Data Alma rce(s) Supporting Document(s) BNP 330 PG/ML 0 - [address] [facility] ID Date Data Source [id number] 03/16/2021 07:26:00 AM EDT [facility] Value Range Interpretation Code Description Data Alma rce(s) Supporting Document(s) Cobalamin (Vitamin B12) [Mass/volume] in Serum or Plasma 333 PG/ML 232 - 1245 [facility] ID Date Data Source [id number] 03/16/2021 07:25:00 AM EDT [facility] Value Range Interpretation Code Description Data Alma rce(s) Supporting Document(s) Iron [Mass/volume] in Serum or Plasma 61 UG/DL 42 - 135 [facility] ID Date Data Source [id number] 03/16/2021 07:25:00 AM EDT [facility] Name Value Range Interpretation Code Description Data Alma rce(s) Supporting Document(s) Magnesium [Mass/volume] in Serum or Plasma 1.7 MG/DL 1.7 - 2.2 [facility] ID Date Data Source [id number] 03/16/2021 06:40:00 AM EDT [facility] Name Value Range Interpretation Code Description Data Alma rce(s) Supporting Document(s) CBC W/AUTOMATED DIFF [facility] COMPLETE BLOOD COUNT Leukocytes [#/volume] in Blood by Automated count 5.6 10^3/uL 4.2 - 1 1.0 [facility] Erythrocytes [#/volume] in Blood by Automated count 4.72 10^6/uL 4. 50 - 6.30 [facility] Hemoglobin [Mass/volume] in Blood 13.9 g/dL 14.0 - 16.0 L [facility] Hematocrit [Volume Fraction] of Blood by Automated count 39.9 % 4 1.0 - 51.0 L [facility] Erythrocyte mean corpuscular volume [Entitic volume] by Auto mated count 84.5 fL 80.0 - 94.0 [facility] Erythrocyte mean corpuscular hemoglobin [Entitic mass] by Automated count 29.4 pg 27.0 - 34.0 [facility] Erythrocyte mean corpuscular hemoglobin concentration [Mass/volume] by Automated count 34.8 g/dL 31.0 - 36.0 [facility] Erythrocyte distribution width [Ratio] by Automated count 12.7 % 11.5 - 14.8 [facility] Platelets [#/volume] in Blood by Automated count 288 10^3/uL 150 - 45 0 [facility] Platelet mean volume [Entitic volume] in Blood by Automated count 9.4 fL 7.4 - 10.4 [facility] Neutrophils/100 leukocytes in Blood by Automated count 56.7 % 37. 0 - 80.0 [facility] Lymphocytes/100 leukocytes in Blood by Manual count 28.9 % 25.0 - 40.0 [facility] Monocytes/100 leukocytes in Blood by Automated count 9.9 % 3.0 - 8.0 H [facility] Eosinophils/100 leukocytes in Blood by Automated count 3.6 % 0.0 - 7.0 [facility] Basophils/100 leukocytes in Blood by Automated count 0.7 % 0.0 - 2.0 [facility] %IG 0.2 % 0.0 - 0.[address] [facility] %NRBC 0.0 % 0.0 - 0.0 [facility] Neut[facility]ils [#/volume] in Blood by Automated count 3.16 10^3/uL 2.00 - 6.90 [facility] Lymphocytes [#/volume] in Blood by Automated count 1.61 10^3/uL 0.60 - 3.40 [facility] Monocytes [#/volume] in Blood by Automated count 0.55 10^3/uL 0.00 - 0.90 [facility] Eosinophils [#/volume] in Blood by Automated count 0.20 10^3/uL 0.00 - 0.70 [facility] Basophils [#/volume] in Blood by Automated count 0.04 10^3/uL 0.00 - 0.20 [facility] #IG 0.01 10^3/uL 0.00 - 0.10 [facility] #NRBC 0.00 10^3/uL 0.00 - 0.00 [facility] MANUAL DIFF NOT INDICATED [facility] RBC MORPH NOT INDICATED [facility] spital ID Date Data Source [id number] 03/16/2021 06:40:00 AM EDT [facility] Name Value Range Interpretation Code Description Data Alma rce(s) Supporting Document(s) Fibrin D-dimer FEU [Mass/volume] in Platelet poor plasma 1.28 ug /mL 0.27 - 0.50 H [facility] ID Date Data Source [id number] 03/15/2021 11:22:00 PM EDT [facility] [address] [place] [address] RESPIRATORY CARE REPORT ==== ---------NAME------- NUMBER SEX AGE ADMIT DISC. XRAY# F/C KHARI Forrester [id number] M 75 03/15/21 [id number] M4 I/P DATE OF : 1945 M/R# [id number] PH#: [phone] CCU1 LOCATION: EMERGENCY DEPT EKG [id number] COMPL ETE:03/15/21 10:40 [facility] [address] PHYSICIAN: J LUIS MCPHERSON Name Value Range Interpretation Code Description Data Alma rce(s) Supporting Document(s) ID Date Data Source [id number] 03/15/2021 11:57:00 [place] [address] PHONE: [phone] FAX: [phone] Name .................. : HAYLEE Forrester Acct Number.................. : [id number] ROOM. ................. : [address] Number ................... : [id number] Stay type ............. : O/P Discharge Date......... ... : Admit Date ......... : 03/13/21 Admit Phys .................... : MEGAN MAT Date of ....... : 1945 Family Phys ................... : J LUIS MCPHERSON Phone .................. : [phone] Age ................................ : 75 Film# .................. .:[id number] Sex ................................. : M Unsigned transcriptions are preliminary reports and do not represent a medical or legal document HIP UNILAT W PELV TRAUMA [place] [id number] COMPLETE:03/13/21 22:31 [facility] [address] Reason(s): Trauma/Injury LEFT HIP X-RAY WITH AP PELVIS: INDICATION: Trauma/injury. FINDINGS: The bones are osteopenic. No fracture or dislocation is identified. Mild joint space narrowing and spurring is present at bilateral hips. There is moderate to severe spurring at the lower lumbar spine. Phleboliths are seen in the pelvis. IMPRESSION: No fracture/dislocation. Osteopenia. 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 Electronically Reviewed and Signed By Bubba Newman MD , 03/15/21 11:57, TDS Transcribe Initials: CLARK , Transcribe Date: 03/14/21 08:33, Dictation Date: Copy for: 002 [facility] Copy for: 710 [facility] REC Page 1 of 1 Name Value Range Interpretation Code Description Data Alma rce(s) Supporting Document(s) ID Date Data Source [id number] 03/15/2021 11:57:00 [place] [address] PHONE: [phone] FAX: [phone] Name .................. : HAYLEE Forrester Acct Number.................. : [id number] ROOM. ................. : CCU1 Number ................... : [id number] Stay type ............. : O/P Discharge Date......... ... : Admit Date ......... : 03/13/21 Admit Phys .................... : MEGAN MAT Date of ....... : 1945 Family Phys ................... : J LUIS VIDA Phone .................. : [phone] Age ................................ : 75 Film# .................. .:[id number] Sex ................................. : M Unsigned transcriptions are preliminary reports and do not represent a medical or legal document KNEE COMPLETE-4 OR MORE S L [id number] COMPLETE:03/13/21 22:31 [facility] [address] Reason(s): Pain LEFT KNEE X-RAY: INDICATION: Pain. COMPARISON: 01/08/21 FINDINGS: No fracture or dislocation is identified. There is moderate to severe joint space narrowing at all compartments of the knee. There is mild spurring at the lateral compartment. No joint effusion is present. No suspicious osseous lesion is seen. IMPRESSION: Moderate DJD. No fracture or dislocation. Electronically Reviewed and Signed By Bubba Newman MD , 03/15/21 11:57, TDS Transcribe Initials: CLARK , Transcribe Date: 03/14/21 08:29, Dictation Date: Copy for: 002 [facility] Copy for: [facility] REC Page 1 of 1 Name Value Range Interpretation Code Description Data Alma rce(s) Supporting Document(s) ID Date Data Source [id number] 03/15/2021 11:56:00 AM EDT [facility] [address] [place] [address] PHONE: [phone] FAX: [phone] Name .................. : HAYLEE Forrester Acct Number.................. : [id number] ROOM. ................. : CCU1 MR Number ................... : [id number] Stay type ............. : O/P Discharge Date......... ... : Admit Date ......... : 03/13/21 Admit Phys .................... : MEAGN LINDSAY Date of ....... : 1945 Family Phys ................... : J LUIS VIDA Phone .................. : [phone] Age ................................ : 75 Film# .................. .:[id number] Sex ................................. : M Unsigned transcriptions are preliminary reports and do not represent a medical or legal document CHEST PORTABLE [id number] COMPLETE:03/13/21 22:30 [facility] [address] Reason(s): Congestion PORTABLE CHEST X-RAY: INDICATION: Congestion. COMPARISON: 12/29/20 FINDINGS: The heart size may be accentuated by the AP filming technique. There is some moderate infiltrates/atelectasis at the left base and mild at the right upper lobe. No pleural effusion or pneumothorax is seen. A left-sided defibrillator is present with its lead at the right ventricle. The bones are stable. IMPRESSION: Cardiomegaly. Moderate infiltrate/atelectasis at the left base and mild to moderate at the right upper lobe. Electronically Reviewed and Signed By Bubba Newman MD , 03/15/21 11:56, TDS Transcribe Initials: DZ , Transcribe Date: 03/14/21 08:27, Dictation Date: Copy for: 002 [facility] Copy for: [facility] REC Page 1 of 1 Name Value Range Interpretation Code Description Data Alma rce(s) Supporting Document(s) ID Date Data Source [id number] 03/14/2021 08:36:00 [place] [address] PROGRESS NOTENAME: HAYLEE Forrester ROOM#: [id number] OF : 1945 MR#: [id number] DATE: 03/13/21 OF SERVICE: 03/14/21SUBJECTIVE: This patient had an episode of syncope. The patient claims that yesterday he had a fall. Hewas standing and quickly turned around and then fell down. He hit his left knee and had possible syncope.Patient has known history of permanent pacemaker inserted a couple of weeks ago at [facility]. Patient claims he was walking in this office going to the window and suddenly fainted and wentto the floor, causing injury to his left knee. Today, he is feeling fine. 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 The patient has known history of permanent pacemaker, hyponatremia, history of diabetes.REVIEW OF SYSTEMS:CONSTITUTIONAL: The patient reports no anorexia, fever, night sweats, systemic illness, or recent weightgain/loss.HEAD: No head trauma or headaches.EYES: No blurred or double vision.ENT: No hearing loss, epistaxis, dysphagia, or sinus congestion.RESPIRATORY: No cough, CROW, wheezing, hemoptysis, sputum production, or SOB.CARDIOVASCULAR: No chest pain, rapid or irregular heartbeat, orthopnea, PND, or lower extremityedema.GI: No nausea, vomiting, abdominal pain, or change in bowel habits.: No pain with urination, urgency or frequency, blood in urine, difficulty starting or stopping urinarystream, urinary infection, stones, or cysts.MUSCULOSKELETAL: No arthritis, joint swelling, or joint stiffness.NEUROLOGIC: No dizziness, syncope, or weakness.ENDOCRINE: No excessive urination or excessive thirst.OBJECTIVE: On exam, moderately built. Blood pressure is 138/89. Head is normal. Heart is regular sinusrhythm. Lungs are clear. Abdomen is soft.LABORATORY DATA: A CT scan of the brain was negative. His Troponin is normal. Hemoglobinis 13.6. Thyroid panel is normal. Magnesium level is 1.6. Sodium is 131, potassium 3.5.ASSESSMENT: Patient has the following issues:1. Hyponatremia2. HypokalemiaPLAN: Plan to give extra KCL at 20 mEq b.i.d. today and give normal saline at 80 cc/hr to improvehyponatremia. It could very well be the hyponatremia is the cause of his syncope. Also, his magnesium [address] [place] [address] PROGRESS NOTENAME: HAYLEE Forrester ROOM#: [id number] OF : 1945 MR#: [id number] DATE: 03/13/21 is 1.6. We will give one run of magnesium sulfate IV. Orthostatic blood pressure readings will bedone.DD: Paul Rushing MD, 03/14/21 09:23DT: DULCE 03/14/21 20:28DS: Paul Rushing MD, PC 03/15/21 08:54 2 Name Value Range Interpretation Code Description Data Alma rce(s) Supporting Document(s) ID Date Data Source [id number] 03/14/2021 07:45:00 [place] [address] RESPIRATORY CARE REPORT ==== ---------NAME------- NUMBER SEX AGE ADMIT DISC. XRAY# F/C TYPESHESB Forrester [id number] M 75 03/13/21 [id number] O/P DATE OF : 1945 M/R# [id number] #: [id number] RM CCU1 LOCATION: EMERGENCY DEPT EKG [id number] COMPL ETE:03/14/21 02:28 [place] [id number] PHYSICIAN: J LUIS Nino Name Value Range Interpretation Code Description Data Alma rce(s) Supporting Document(s) ID Date Data Source [id number] 03/15/2021 02:33:00 PM EDT [facility] Name Value Range Interpretation Code Description Data Alma rce(s) Supporting Document(s) Cortisol [Mass/volume] in Serum or Plasma 9.8 ug/dL [facility] C ortisol AM 6.2 - 19.4 Cortisol PM 2.3 - 11.9 ID Date Data Source [id number] 03/15/2021 12:01:00 PM EDT [facility] Name Value Range Interpretation Code Description Data Alma rce(s) Supporting Document(s) Prostate specific Ag [Mass/volume] in Serum or Plasma 0.01 ng/mL 0.00 - 4.00 [facility] \\BLDo\\PSA INTERPRETA TION\\BLDx\\ The PSA assay should not be used alone for a screening test or diagnosis for presence or absence of malignant disease. Predictions of disease recurrence should not be based solely on values obtained from serial patient serum values. The PSA result was determined by "[employer]", on the Tra ARCHIE 6000. Values obtained with different assay methods or kits cannot be used interchangeably. ID Date Data Source [id number] 03/14/2021 01:18:00 PM EDT [facility] Name Value Range Interpretation Code Description Data Alma rce(s) Supporting Document(s) TROPONIN T <0.01 NG/ML 0.00 - 0.10 [facility] TROPONIN T0.1 ng/ml Recommended as the c linical threshold value Jhonatan Del Valle. ID Date Data Source [id number] 03/14/2021 01:17:00 PM EDT [facility] Name Value Range Interpretation Code Description Data Alma rce(s) Supporting Document(s) COMPREHENSIVE METABOLIC PANEL [facility] COMPREHENSIVE METABOLIC PANEL Sodium [Moles/volume] in Serum or Plasma 131 mEq/L 134 - 153 L [facility] Potassium [Moles/volume] in Serum or Plasma 3.7 mEq/L 3.6 - 5.0 [facility] Chloride [Moles/volume] in Serum or Plasma 95 mEq/L 98 - 107 L [facility] Carbon dioxide, total [Moles/volume] in Serum or Plasma 26 MEQ/L 22 - 30 [facility] Glucose [Mass/volume] in Serum or Plasma 192 MG/DL 70 - 99 H [facility] BUN 23 MG/DL 7 - 21 [facility] Creatinine [Mass/volume] in Serum or Plasma 0.7 MG/DL 0.7 - 1.5 [facility] BUN/CREAT 33 8 - 27 H [facility] Protein [Mass/volume] in Serum or Plasma 6.3 G/DL 6.3 - 8.2 [facility] Albumin [Mass/volume] in Serum or Plasma 4.0 G/DL 3.9 - 5.0 [facility] Globulin [Mass/volume] in Serum by calculation 2.3 GM/DL 2.4 - 3.2 L [facility] A/G RATIO 1.7 0.8 - 2.0 [facility] Calcium [Mass/volume] in Serum or Plasma 9.1 MG/DL 8.4 - 10.2 [facility] Bilirubin.total [Mass/volume] in Serum or Plasma 1.0 MG/DL 0.2 - 1.3 [facility] Alkaline phosphatase [Enzymatic activity/volume] in Serum or Plasma 124 U/L 38 - 126 [facility] Aspartate aminotransferase [Enzymatic activity/volume] in Serum or Plasma 22 U/L 5 - 40 [facility] Alanine aminotransferase [Enzymatic activity/volume] in Seru m or Plasma 18 U/L 7 - 56 [facility] Anion gap 3 in Serum or Plasma 10.0 mmol/L 8.0 - 16.0 [facility] AGE [address] [facility] NON-AA GFR >60 mL/min [facility] AFR AMER GFR >60 mL/min [facility] Male GFR In terprentation 20-49 yrs >60 mL/min Normal 50-59 yrs >56 mL/min Normal 60-69 yrs >49 mL/min Normal 70-79yrs >42 mL/min Normal 80 and above >35 mL/min Normal Female GFR Interpretation 20-39 yrs >60 mL/min Normal 40-49 yrs >58 mL/min Normal 50-59 yrs >51 mL/min Normal 60-69 yrs >45 mL/min Normal 70-79 yrs >39 mL/min Normal 80 and above >32 mL/min Normal ID Date Data Source [id number] 03/14/2021 12:47:00 PM EDT [facility] Name Value Range Interpretation Code Description Data Alma rce(s) Supporting Document(s) CBC W/AUTOMATED DIFF [facility] COMPLETE BLOOD COUNT Leukocytes [#/volume] in Blood by Automated count 6.8 10^3/uL 4.2 - 1 1.0 [facility] Erythrocytes [#/volume] in Blood by Automated count 4.90 10^6/uL 4. 50 - 6.30 [facility] Hemoglobin [Mass/volume] in Blood 14.5 g/dL 14.0 - 16.0 [facility] Hematocrit [Volume Fraction] of Blood by Automated count 42.4 % 4 1.0 - 51.0 [facility] Erythrocyte mean corpuscular volume [Entitic volume] by Auto mated count 86.5 fL 80.0 - 94.0 [facility] Erythrocyte mean corpuscular hemoglobin [Entitic mass] by Automated count 29.6 pg 27.0 - 34.0 [facility] Erythrocyte mean corpuscular hemoglobin concentration [Mass/volume] by Automated count 34.2 g/dL 31.0 - 36.0 [facility] Erythrocyte distribution width [Ratio] by Automated count 13.2 % 11.5 - 14.8 [facility] Platelets [#/volume] in Blood by Automated count 259 10^3/uL 150 - 45 0 [facility] Platelet mean volume [Entitic volume] in Blood by Automated count 9.0 fL 7.4 - 10.4 [facility] Neutrophils/100 leukocytes in Blood by Automated count 61.1 % 37. 0 - 80.0 [facility] Lymphocytes/100 leukocytes in Blood by Manual count 25.0 % 25.0 - 40.0 [facility] Monocytes/100 leukocytes in Blood by Automated count 10.2 % 3.0 - 8.0 H [facility] Eosinophils/100 leukocytes in Blood by Automated count 2.4 % 0.0 - 7.0 [facility] Basophils/100 leukocytes in Blood by Automated count 0.9 % 0.0 - 2.0 [facility] %IG 0.4 % 0.0 - 0.[address] [facility] %NRBC 0.0 % 0.0 - 0.0 [facility] al Neutrophils [#/volume] in Blood by Automated count 4.12 10^3/uL 2.00 - 6.90 [facility] Lymphocytes [#/volume] in Blood by Automated count 1.69 10^3/uL 0.60 - 3.40 [facility] Monocytes [#/volume] in Blood by Automated count 0.69 10^3/uL 0.00 - 0.90 [facility] Eosinophils [#/volume] in Blood by Automated count 0.16 10^3/uL 0.00 - 0.70 [facility] Basophils [#/volume] in Blood by Automated count 0.06 10^3/uL 0.00 - 0.20 [facility] #IG 0.03 10^3/uL 0.00 - 0.10 [facility] ospital #NRBC 0.00 10^3/uL 0.00 - 0.00 [facility]ital MANUAL DIFF NOT INDICATED [facility] RBC MORPH NOT INDICATED [facility] spital ID Date Data Source [id number] 03/14/2021 09:54:00 AM EDT [facility] Name Value Range Interpretation Code Description Data Alma rce(s) Supporting Document(s) Lactate [Moles/volume] in Serum or Plasma 2.7 MMOL/L 0.2 - 2.2 H [facility] ID Date Data Source [id number] 03/16/2021 02:12:00 PM EDT [facility] Value Range Interpretation Code Description Data Alma rce(s) Supporting Document(s) CULTURE URINE [facility] _CULTURE URINE_$$[id number]$$[id number]$$[id number]$$[id number]$$[id number]$$[id number]$$[id number]$$[id number]$$[id number]$$ [id number]$$559552$$195066$$466303$$280188$$627905$$416591$$102892$$754957$$600732$$ 458143$$841212$$139441$$942660$$931111$$090132$$[id number]$$[id number] -- Continued on next page --Patient: HAYLEE Forrester Order: [id number] Page 2Culture: CULTURE URINE Status: Final ====$$[id number]$$[id number] DATE/TIME: 03/16/2021 08:08Culture: CULTURE URINE Status: FinalUrine Culture,Comprehensive: A3Jzycm urogenital flora50,000-100,000 colony forming units per mLP1 Test performed by: [facility] #: [id number] [address] [place] [address] [address] [id number] [facility] [id number] Director : Rory Hickman MD NPI #:Investor Relations Analyst : 03/16/21.1412.XMT.SENT REF 03/16/21.1412.CM .to [facility] via modem ID Date Data Source [id number] 03/14/2021 07:01:00 AM EDT [facility] Name Value Range Interpretation Code Description Data Alma rce(s) Supporting Document(s) [facility]IS [facility] concepción [facility] COLOR orange NORMAL: Yellow [facility] CLARITY clear NORMAL: Clear [facility] sp[facility] Specific gravity of Urine by Test strip 1.020 1.001 - 1.030 [facility] pH 6 5 - 9 [facility] Glucose [Mass/volume] in Urine by Test strip 1000 NORMAL: Negat alden A [facility] Bilirubin.total [Presence] in Urine by Test strip NEG NORMAL: Negative [facility] Ketones [Presence] in Urine by Test strip 5 NORMAL: Negative [facility] Protein [Mass/volume] in Urine by Test strip 30 NORMAL: Negat [facility] Nitrite [Presence] in Urine by Test strip NEG NORMAL: Negative [facility] BLOOD NEG NORMAL: Negative [facility] LEUK EST 25 NORMAL: Negative [facility] Urobilinogen [Mass/volume] in Urine by Test strip 1 less ellen n 1.0 mg/dL [facility] MICROSCOPIC See Below [facility] ital WBC 1 - 3 NORMAL: NONE SEEN [facility] EPITHELIAL FEW NORMAL: NONE SEEN [facility] Bacteria [Presence] in Urine sediment by Light microscopy 2+ MOD NORMAL: NONE SEEN A [facility] Mucus [Presence] in Urine sediment by Light microscopy 2+ NOR MAL: NONE SEEN A [facility] Casts [#/area] in Urine sediment by Microscopy low power field See Be low [facility] Coarse Granular Casts [#/area] in Urine sediment by Mi croscopy low power field 0-1 NORMAL: None Seen A [facility] ID Date Data Source [id number] 03/14/2021 07:22:00 AM EDT [facility] Name Value Range Interpretation Code Description Data Alma rce(s) Supporting Document(s) TROPONIN T <0.01 NG/ML 0.00 - 0.10 [facility]ital TROPONIN T0.1 ng/ml Recommended as the c linical threshold value forTroponin T. ID Date Data Source [id number] 03/14/2021 07:21:00 AM EDT [facility] Name Value Range Interpretation Code Description Data Alma rce(s) Supporting Document(s) Creatine kinase [Enzymatic activity/volume] in Serum or Plasma 2 44 U/L 30 - 170 H [facility] ID Date Data Source [id number] 03/14/2021 07:02:00 AM EDT [facility] Name Value Range Interpretation Code Description Data Alma rce(s) Supporting Document(s) BNP 267 PG/ML 0 - [address] [facility] ID Date Data Source [id number] 03/14/2021 06:51:00 AM EDT [facility] Value Range Interpretation Code Description Data Alma rce(s) Supporting Document(s) Thyroxine (T4) free index in Serum or Plasma by calculation 1.15 NG/DL 0.93 - 1.70 [facility] ID Date Data Source [id number] 03/14/2021 06:51:00 AM EDT [facility] Value Range Interpretation Code Description Data Alma rce(s) Supporting Document(s) Thyrotropin [Units/volume] in Serum or Plasma by Detec tion limit <= 0.05 mIU/L 2.62 uIU/mL 0.47 - 5.01 [facility] ID Date Data Source [id number] 03/14/2021 06:46:00 AM EDT [facility] Value Range Interpretation Code Description Data Alma rce(s) Supporting Document(s) Magnesium [Mass/volume] in Serum or Plasma 1.6 MG/DL 1.7 - 2.2 L [facility] ID Date Data Source [id number] 03/14/2021 06:46:00 AM EDT [facility] Value Range Interpretation Code Description Data Alma rce(s) Supporting Document(s) COMPREHENSIVE METABOLIC PANEL [facility] COMPREHENSIVE METABOLIC PANEL Sodium [Moles/volume] in Serum or Plasma 131 mEq/L 134 - 153 L [facility] Potassium [Moles/volume] in Serum or Plasma 3.5 mEq/L 3.6 - 5.0 L [facility] Chloride [Moles/volume] in Serum or Plasma 97 mEq/L 98 - 107 L [facility] Carbon dioxide, total [Moles/volume] in Serum or Plasma 23 MEQ/L 22 - 30 [facility] Glucose [Mass/volume] in Serum or Plasma 213 MG/DL 70 - 99 H [facility] BUN 23 MG/DL 7 - 21 H [facility] Creatinine [Mass/volume] in Serum or Plasma 0.7 MG/DL 0.7 - 1.5 [facility] BUN/CREAT 33 8 - 27 H [facility] Protein [Mass/volume] in Serum or Plasma 5.7 G/DL 6.3 - 8.2 L [facility] Albumin [Mass/volume] in Serum or Plasma 3.6 G/DL 3.9 - 5.0 L [facility] Globulin [Mass/volume] in Serum by calculation 2.1 GM/DL 2.4 - 3.2 L [facility] A/G RATIO 1.7 0.8 - 2.0 [facility] Calcium [Mass/volume] in Serum or Plasma 8.7 MG/DL 8.4 - 10.2 [facility] Bilirubin.total [Mass/volume] in Serum or Plasma 1.1 MG/DL 0.2 - 1.3 [facility] Alkaline phosphatase [Enzymatic activity/volume] in Serum or Plasma 112 U/L 38 - 126 [facility] Aspartate aminotransferase [Enzymatic activity/volume] in Serum or Plasma 17 U/L 5 - 40 [facility] Alanine aminotransferase [Enzymatic activity/volume] in Seru m or Plasma 14 U/L 7 - 56 [facility] Anion gap 3 in Serum or Plasma 11.0 mmol/L 8.0 - 16.0 [facility] AGE 75 yrs [facility] al NON-AA GFR >60 mL/min [facility] ital AFR AMER GFR >60 mL/min [facility] Male GFR In terprentation 20-49 yrs >60 mL/min Normal 50-59 yrs >56 mL/min Normal 60-69 yrs >49 mL/min Normal 70-79yrs >42 mL/min Normal 80 and above >35 mL/min Normal Female GFR Interpretation 20-39 yrs >60 mL/min Normal 40-49 yrs >58 mL/min Normal 50-59 yrs >51 mL/min Normal 60-69 yrs >45 mL/min Normal 70-79 yrs >39 mL/min Normal 80 and above >32 mL/min Normal ID Date Data Source [id number] 03/14/2021 06:41:00 AM EDT [facility] Name Value Range Interpretation Code Description Data Alma rce(s) Supporting Document(s) Phosphate [Mass/volume] in Serum or Plasma 3.7 MG/DL 2.5 - 4.5 [facility] ID Date Data Source [id number] 03/14/2021 06:29:00 AM EDT [facility] Name Value Range Interpretation Code Description Data Alma rce(s) Supporting Document(s) CBC W/AUTOMATED DIFF [facility] COMPLETE BLOOD COUNT Leukocytes [#/volume] in Blood by Automated count 6.8 10^3/uL 4.2 - 1 1.0 [facility] Erythrocytes [#/volume] in Blood by Automated count 4.61 10^6/uL 4. 50 - 6.30 [facility] Hemoglobin [Mass/volume] in Blood 13.6 g/dL 14.0 - 16.0 L [facility] Hematocrit [Volume Fraction] of Blood by Automated count 39.0 % 4 1.0 - 51.0 L [facility] Erythrocyte mean corpuscular volume [Entitic volume] by Auto mated count 84.6 fL 80.0 - 94.0 [facility] Erythrocyte mean corpuscular hemoglobin [Entitic mass] by Automated count 29.5 pg 27.0 - 34.0 [facility] Erythrocyte mean corpuscular hemoglobin concentration [Mass/volume] by Automated count 34.9 g/dL 31.0 - 36.0 [facility] Erythrocyte distribution width [Ratio] by Automated count 13.1 % 11.5 - 14.8 [facility] Platelets [#/volume] in Blood by Automated count 240 10^3/uL 150 - 45 0 [facility] Platelet mean volume [Entitic volume] in Blood by Automated count 9.6 fL 7.4 - 10.4 [facility] Neutrophils/100 leukocytes in Blood by Automated count 60.9 % 37. 0 - 80.0 [facility] Lymphocytes/100 leukocytes in Blood by Manual count 24.6 % 25.0 - 40.0 L [facility] Monocytes/100 leukocytes in Blood by Automated count 11.1 % 3.0 - 8.0 H [facility] Eosinophils/100 leukocytes in Blood by Automated count 2.2 % 0.0 - 7.0 [facility] Basophils/100 leukocytes in Blood by Automated count 0.9 % 0.0 - 2.0 [facility] %IG 0.3 % 0.0 - 0.[address] [facility] %NRBC 0.0 % 0.0 - 0.0 [facility] al Neutrophils [#/volume] in Blood by Automated count 4.13 10^3/uL 2.00 - 6.90 [facility] Lymphocytes [#/volume] in Blood by Automated count 1.67 10^3/uL 0.60 - 3.40 [facility] Monocytes [#/volume] in Blood by Automated count 0.75 10^3/uL 0.00 - 0.90 [facility] Eosinophils [#/volume] in Blood by Automated count 0.15 10^3/uL 0.00 - 0.70 [facility] Basophils [#/volume] in Blood by Automated count 0.06 10^3/uL 0.00 - 0.20 [facility] #IG 0.02 10^3/uL 0.00 - 0.10 [facility] #NRBC 0.00 10^3/uL 0.00 - 0.00 [facility] MANUAL DIFF NOT INDICATED [facility] RBC MORPH NOT INDICATED [facility] spital ID Date Data Source [id number] 03/13/2021 08:07:00 PM EDT [facility] 1 OrderSheet [facility] Emergency Department [address] [place] [address] Phone #: ext- [phone] 03/13/2021 20:07 Patient: MAGDY LEACH Sex: M : 1945 Age: 75yWEIGHT:113.8 kg HEIGHT:73 inches BMI:33.1ALLERGIES: Morphine and RelatedCHIEF COMPLAINT: fallDIAGNOSIS: Contusion, AstheniaLAB ORDERSOrder Description Priority Entered Acknowledged InitialedCBC w Diff STAT 20:21 03/13/2021 20:29 Victor Manuel Echeverria Jack ; Mary Alice R.N.CMP STAT 20:21 03/13/2021 20:29 Victor Manuel Echeverria Jack ; Mary Alice SaucedaTroponin-T STAT 20:21 03/13/2021 20:29 Victor Manuel Echeverria Jack ; Mary Alice SaucedaUrinalysis (Cath STAT 20:21 03/13/2021 Ack'd: 20:33 Maria Antonia Colón RRodneySpec) Chris Barr ; Cancelled: Unable to Collect 23:46 Josafat Hernandez R.N.COVID-19 CAH (Not STAT 22:22 0 03/13/2021 22:53 Sorbero,Symptomatic as Chris Barr ; Josafat R.ArvinDefined by CDC)(03/13/2021) (NotFirst Test) (NotHospitalized) (Not) (NotResident inCongregate CareSetting) (NotEmployed inHealthcare Setting)DIAGNOSTIC STUDY ORDERSOrder Description Priority Entered Acknowledged [facility] 1 STAT 20:21 03/13/2021 Ack'd: 20:29 20:48 David,View Chris Barr ; Mary Alice Echeverria R.N.(Oxygen?(No)) R.N. Reason for Study: CongestionHip Left with Pelvis STAT 20:21 03/13/2021 Ack'd: 20:29 20:48 David,Trauma Chris Barr ; Mary Alice Echeverria R.N. 2 OrderSheet [facility] Emergency Department [address] [place] [address] Phone #: ext- [phone] 03/13/2021 20:07 Patient: MAGDY LEACH Sex: M : 1945 Age: 75y R.N. Reason for Study: Trauma/InjuryCT Head W/O Cont STAT 20:21 03/13/2021 Ack'd: 20:29 20:48 Sorbero,(Oxygen?(No)) Chris Barr ; Mary Alice EcheverriaNPark R.N. Reason for Study: Head Injury, WeaknessCT Spine Cervical STAT 20:21 03/13/2021 Ack'd: 20:29 20:48 Sorbero,W/O Cont Chris Barr ; Mary Alice Ehceverria R.N.(Oxygen?(No)) R.N. Reason for Study: Pain, Trauma/InjuryKnee Complete Left STAT 20:22 03/13/2021 Ack'd: 20:29 20:48 Sorbero,(Oxygen?(No)) Chris Barr ; Mary Alice EcheverriaNPark R.N. Reason for Study: PainMEDICATION/IV/DRIP/FLUID ORDERSOrder Description Priority Entered Acknowledged InitialedToradol IM 30 mg 22:03 03/13/2021 Ack' d: 22:04 22:09 Sorbero,(NOW x1) Chris Barr ; Mary Alice EcheverriaNPark R.N.GENERAL ORDERSOrder Description Priority Entered Acknowledged InitialedEKG 20:21 03/13/2021 20:22 Victor Manuel Colón Jack ; Maria Antonia Sauceda[Electronically signed by Josafat Hernandez R.N. (23:47 03/13/2021)][Electronically signed by Chris Barr (03:46 03/14/2021)][Electronically locked by Josafat Hernandez R.N. (23:47 03/13/2021)] Name Value Range Interpretation Code Description Data Alma rce(s) Supporting Document(s) ID Date Data Source [id number] 03/13/2021 08:07:00 PM EDT [facility] 1 Medication Reconciliation Report [facility] Emergency Department [address] [place] [address] Phone #: ext- [phone] 03/13/2021 20:07 Patient: MAGDY LEACH Sex: M : 1945 Age: 75yWeight: 113.8 kgHeight/Length: 73 in.BMI: 33.1ALLERGIES: Morphine and RelatedThe patient's Home Medications are listed below:THE FOLLOWING MEDICATIONS NEED TO BE RECONCILED: amLODIPine Besylate Oral Atenolol Oral (100 mg) 1 tablet, daily Glimepiride Oral (4 mg) 1 tablet, daily Lovastatin Oral (40 mg) 1 tablet, dailyThe source(s) of the original Home Medication information:patientThe following Medications were given to the patient in the Emergency Department:Toradol [IM] IM 30 mg, administered: 22:03/13/2021The following Medications were prescribed to the patient:None. Name Value Range Interpretation Code Description Data Alma rce(s) Supporting Document(s) ID Date Data Source [id number] 03/13/2021 08:07:00 PM EDT [facility] 1 Medication Administration Record [facility] Emergency Department [address] [place] [address] Phone #: ext - [phone] 03/13/2021 20:07 Patient: MAGDY LEACH Sex: M : 1945 Age: 75yWeight: 113.8 kgHeight/Length: 73 inBMI: 33.1ALLERGIES: Morphine and Related Date/Time Medication Administered Medication OrderedGiven TORADOL [IM] (KETOROLAC Toradol IM 30 mg (NOW x1)22:09 03/13/2021 TROMETHAMINE)Sorbero, Josafat, R.N. Dose: 30 mg IM Name Value Range Interpretation Code Description Data Alma rce(s) Supporting Document(s) ID Date Data Source [id number] 03/13/2021 08:07:00 PM EDT [facility] 1 General Instructions [facility] Emergency Department [address] [place] [address] Phone #: ext- [phone] 03/13/2021 20:07 Patient: MAGDY LEACH Sex: M : 1945 Age: 75yAcute generalized weakness.Single contusion to the left hip.(Electronically signed by Chris Barr 03/14/2021 03:46) Name Value Range Interpretation Code Description [facility] Document(s) ID Date Data Source [id number] 03/13/2021 08:07:00 PM EDT [facility] 1 Clinical Report - Nurses [facility] Emergency Department [address] [place] [address] Phone #: ext- [phone] 03/13/2021 20:07 Patient: MAGDY LEACH Sex: M : 1945 Age: 75yTRIAGEArrived by EMS. Historian: patient.Triage time: 20:09 03/13/2021. Acuity: LEVEL 2.Chief Complaint: FALL:( pt reports his leg gave out and he fell 3 hours ago. pt recently had pacemaker placed. pt is poor historian.pt unsure of blood thinners). ( pt reports pain behind his right ear. pt unsure of what meds he has but sayshe ran out of some). --20:20 03/13/21 Maria Antonia Colón R.N.20:09 03/13/21. BP: 161/94. HR: 88. RR: 18. O2 saturation: 98%. Temp: 98.6 F. Pain level now 0/10.--20:20 03/13/21 Maria Antonia Colón R.N.Weight: 113.8 kg. Height/Length: 73 inches. BMI: 33.1. --20:08 03/13/21 Maria Antonia Colón R.N.MedicationsAtenolol Oral (Tablet 100 mg) 1 table t, daily. Glimepiride Oral (Tablet 4 mg) 1 tablet, daily. Lovastatin Oral (Tablet 40 mg) 1 tablet, daily. --20:16 03/13/21 Maria Antonia Colón R.N. amLODIPine Besylate Oral. --20:16 03/13/21 Maria Antonia Colón R.N.AllergiesMorphine and Related. --20:15 03/13/21 Maria Antonia Colón R.N.PROBLEMS:COPD - Chronic Obstructive Pulmonary Disease. --20:17 03/13/21 Maria Antonia Colón R.N.Back Pain.Weakness.Knee Injur y.Hypercholesterolemia.Diabetes Mellitus.Syncope.Pulmonary Embolism.Hyponatremia.Hypertension. --22:13 03/13/21 Josafat Hernandez R.N.Medication/allergy information source: the patient. --20:20 03/13/21 Maria Antonia Colón R.N.ADDITIONAL SURGERIES:Pace maker. --20:17 03/13/21 Maria Antonia Colón R.N. 2 Clinical Report - Nurses [facility] Emergency Department [address] [place] [address] Phone #: ext- [phone] 03/13/2021 20:07 ----- [id number] Sex: M : 1945 Age: 75y Back Surgery. --22:13 03/13/21 Josafat Hernandez R.N. History SOCIAL HX: Never smoker. No alcohol use or drug use. He was offered HIV testing but declined unable to offer HIV testing due to the patient's condition. He was offered hepatitis C testing but declined unable to offer hepatitis C testing due to the patient's condition. He has not traveled outside the [place] Infectious disease exposure: No infectious disease exposure. SELF HARM ASSESSMENT: Self harm assessment deferred due to patient condition. ABUSE ASSESSMENT: Abuse assessment. No suspicion of abuse. No report of abuse. NUTRITIONAL RISK ASSESSMENT: The nutritional risk assessment revealed no deficiencies. LEARNING NEEDS ASSESSMENT: The learning needs assessment revealed no barriers. FALL RISK ASSESSMENT: Fall risk assessment completed per protocol. FUNCTIONAL ASSESSMENT: Functional assessment performed: mobility impairment present. pt poor historian/[place]/. SKIN INTEGRITY ASSESSMENT: Skin integrity risk assessment was performed per protocol. --20:20 03/13/21 Maria Antonia Colón R.N.PHYSICAL ASSESSMENTlate entry - 20:38 03/13/21. To room via stretcher.GENERAL / NEURO / PSYCH: Alert. Oriented X 4. Appears in no acute distress. He has weakness.HEENT: Pupils equal, round and reactive to light. Head non-tender. Head.RESPIRATORY: Respirations not labored. Chest nontender. Breath sounds within normal limits.C VS: Normal heart rate and rhythm. Pulses within normal limits. Capillary refill less than 2 seconds.GI / : Abdomen soft and nontender.EXTREMITIES: Limited ROM present. Left hip: tenderness. Left knee: tenderness.SKIN: Skin intact. Skin is warm and dry.BACK: Limited ROM in the back. Vertebral point tenderness. --20:55 03/13/21 Mary Alice Echeverria R.N.NURSING PROGRESS NOTESCardiac rhythm: paced rhythm; (88). The plan of care for this patient has been created. Patient gowned.Reassurance given. Call light placed in reach. Side rails up x 2. Bed placed in lowest position. Brakesof bed on. Patient ready for evaluation. --20:21 03/13/21 Maria Antonia Colón R.N. EKG time: (20:27 03/13/2021). EKG was performed by a nurse and shown to the ED physician. --20:32 03/13/21 Maria Antonia Colón R.N. Patient ID band checked for patient name and birthdate. Blood samples drawn by lab per protocol ; labeled 3 Clinical Report - Nurses [facility] Emergency Department [address] [place] [address] Phone #: ext- [phone] 03/13/2021 20:07 Patient: MAGDY LEACH Sex: M : 1945 Age: 75y in presence of the patient and sent to lab. --20:32 03/13/21 Maria Antonia Colón R.N. late entry - 22:00 03/13/21. Patient gowned. Reassurance given. Rounding: Proximity of possessions / care items: call light within easy reach. Set expectations: advised patient of rounding protocol timing and asked if they needed anything else at this time. Call light placed in reach. Care transferred and report given (Josafat Bowen RN). Patient waiting for radiology and CT results. --22:23 03/13/21 Mary Alice Echeverria R.N. 22:09 03/13/2021 Toradol (Ketorolac Tromethamine) IM 30 mg given. Given in the left deltoid. Allergies verified and confirmed 5 rights. Information reviewed with patient including reason for taking this medication, signs of allergic reaction and precautions. Verbalizes understanding. --22:09 03/13/21 Josafat Hernandez R.N. 22:54 03/13/21. Reassurance given. Reassessment acuity: LEVEL 3. Reassessment after medication administered. No adverse reaction. Pain gone now. He reports no complaints, he is calm and resting quietly and he has had no adverse reaction. Overall patient status is improved- he states feels better. GENERAL / NEURO / PSYCH: Alert. Two patient identifiers checked. Call light placed in reach. Side rails up x 2. Bed placed in lowest position. Brakes of bed on. --22:54 03/13/21 Josafat Hernandez R.N.DISPOSITION / DISCHARGE 22:45 03/13/21. Admitted to the Acute Inpatient Unit. Bed obtained and ready (CCU 1). --22:45 03/13/21 Josafat Hernandez R.N. Disposition: observation for further evaluation. --22:55 03/13/21 Josafat Hernandez R.N. 23:35 03/13/21. Departure time: 23:35 03/13/2021. Transported via stretcher by nurse with mask. Report was given to a nurse via a phone call and visit overview and in person. Report included information regarding patient's treatment and allergies, current vital signs and critical, abnormal or pending labs. Report included treatment information regarding medications given or pending. All questions were answered. Report was acknowledged and care was transferred. (Goldie). Patient's personal items; items were transported with the patient. --23:44 03/13/21 Josafat Hernandez R.N. 23:20 03/13/21. BP: 145/91. MAP: 109. HR: 65. RR: 16. O2 saturation: 99% on room air. Temp: 98.1 F. Pain level now: 0/10. --23:45 03/13/21 Josafat Hernandez R.N.Locked/Released at 03/13/2021 23:47 by Josafat Hernandez R.N. 4 Clinical Report - Nurses [facility] Emergency Department [address] [place] [address] Phone #: ext- [phone] 03/13/2021 20:07 Patient: MAGDY LEACH Sex: M : 1945 Age: 75y Name Value Range Interpretation Code Description Data Alma rce(s) Supporting Document(s) ID Date Data Source [id number] 03/13/2021 08:07:00 PM EDT [facility] 1 Clinical Report - Physicians/Mid Levels [facility] Emergency Department [address] [place] [address] Phone #: ext- [phone] 03/13/2021 20:07 [id number] Sex: M : 1945 Age: 75y Time Seen: 20:35 03/13/2021. Arrived- By ambulance. Historian- patient. History limited by poor cooperation. Disposition decision: 22:24 03/13/2021.HISTORY OF PRESENT ILLNESS Chief Complaint: FALL: Location of injuries- lower back and left hip and left knee. The injury occurred today 5 PM. Occurred at home. ( States his legs gave out. Landed on left side and may have hit his head). Fell: No fainting episodes. The patient complains of moderate pain. The patient sustained a blow to the head and complains of neck pain. No loss of consciousness. Not dazed. (Laid on floor in kitchen for 3 hours.).REVIEW OF SYSTEMSThe patient has had extremity swelling. No numbness, dizziness, loss of vision, hearing loss or chestpain. No difficulty breathing, laceration, vomiting, fever or urinary incontinence. No skin rash. Thepatient has had weakne ss,, a headache and headache, back pain and joint pain. He has had neck painand complains of pain on weight bearing. All other systems reviewed and are negative.PAST HISTORYSee nurses notes. Hypertension. Problems: Hypercholesterolemia. Diabetes Mellitus. Syncope. Pulmonary Embolism. Hyponatremia. COPD - Chronic Obstructive Pulmonary Disease. Additional Surgeries: Back Surgery. Pace maker. Medications: amLODIPine Besylate Oral. Atenolol Oral (Tablet 100 mg) 1 tablet, daily. 2 Clinical Report - Physicians/Mid Levels [facility] Emergency Department [address] [place] [address] Phone #: ext- [phone] 03/13/2021 20:07 Patient: MAGDY LEACH [facility]#: [id number] Sex: M : 1945 Age: 75y Glimepiride Oral (Tablet 4 mg) 1 tablet, daily. Lovastatin Oral (Tablet 40 mg) 1 tablet, daily. Allergies: Morphine and Related.SOCIAL HISTORYNever smoker. No alcohol use. Resides in a house. He lives alone.ADDITIONAL NOTESThe nursing notes have been reviewed.PHYSICAL EXAMVital Signs: 03/13/2021 20:09 BP: 161/94. MAP: 116. HR: 88. RR: 18. O2 saturation: 98%. Temp: 98.6 F.Appearance: Oriented X3. Appears to be in pain. Patient in mild distress. (Complains of pain withmovement).Head: No swelling of head. No Morales's sign.Eyes: EOM intact.ENT: Pharynx normal.Neck: Painless ROM. Non-tender.CVS: Heart sounds normal. Pulses normal. (pacer noted in left upper chest).Respiratory: Painless inspiration. Chest nontender.Abdomen: No visible injury. Soft and nontender. Bowel sounds normal.Back: Mildly limited ROM in the back. No vertebral point tenderness.Skin: Skin intact. Skin warm and dry. Normal skin color.Extremities: Pelvis stable. Left hip. Limited ROM secondary to pain (diminished flexion and externalrotation). The left leg is not shortened or externally rotated. Left knee: mild swelling. (1+ bilateral legedema).Gait: No limping gait. Gait not tested due to pain. He was unable to bear weight.Neuro: Oriented X 3. He has weakness of the right leg (2/5 movement possible but not against gravity)and left leg (2/5 movement possible but not against gravity). No sensory deficit. No posturing.LABS, X-RAYS, AND EKGEKG: EKG time: 20:27 03/13/2021. No acute process. Rate: 86. RBBB. Q waves in lead II, III andaVF. Left axis deviation. Normal QT. Non-specific ST segment / T wave abnormalities. The study hasbeen interpreted contemporaneously by me. Interpretation time: 20:31 03/13/2021.X- Rays: Chest X-ray negative. Left hip negative. Left knee.Lt Knee X-ray: No fracture. Degenerative joint disease.Laboratory Tests: Knee Complete Left: (MAIKOL: 03/13/2021 20:22) ( MsgRcvd 03/13/2021 22:31) In Progress KNEE COMPLETE-4 OR MORE VWS LT Reason(s): Pain TRANSPORTATION: S IV? O2? Oxygen?(No) Room: ED CBC w Diff: (MAIKOL: 03/13/2021 20:40) ( MsgRcvd 03/13/2021 20:49) Final results 3 Clinical Report - Physicians/Mid Levels [facility] Emergency Department [address] [place] [address] Phone #: ext- [phone] 03/13/2021 20:07 Patient: MAGDY LEACH Sex: M : 1945 Age: 75y Test Result Flag Units (Reference) CBC W/AUTOMATED DIFF COMPLETE BLOOD COUNT WBC 9.5 10/uL (4.2 - 11.0) RBC 5.07 10/uL (4.50 - 6.30) HEMOGLOBIN 15.1 g/dL (14.0 - 16.0) HEMATOCRIT 42.8 % (41.0 - 51.0) MCV 84.4 fL (80.0 - 94.0) MCH 29.8 pg (27.0 - 34.0) MCHC 35.3 g/dL (31.0 - 36.0) RDW 13.1 % (11.5 - 14.8) PLATELETS 267 10/uL (150 - 450) MPV 9.2 fL (7.4 - 10.4) NEUT 75.5 % (37.0 - 80.0) LYMPH 14.1 L % (25.0 - 40.0) MONO 9.3 H % (3.0 - 8.0) EOS 0.4 % (0.0 - 7.0) BASO 0.4 % (0.0 - 2.0) %IG 0.3 H % (0.0 - 0.0) %NRBC 0.0 % (0.0 - 0.0) #NEUT 7.16 H 10/uL (2.00 - 6.90) #LYMPH 1.34 10/uL (0.60 - 3.40) #MONO 0.88 10/uL (0.00 - 0.90) #EOS 0.04 10/uL (0.00 - 0.70) #BASO 0.04 10/uL (0.00 - 0.20) #IG 0.03 10/uL (0.00 - 0.10) #NRBC 0.00 10/uL (0.00 - 0.00) MANUAL DIFF NOT INDICATED RBC MORPH NOT INDICATEDCMP: (MAIKOL: 03/13/2021 20:40) ( MsgRcvd 03/13/2021 21:11) Final results Test Result Flag Units (Reference) COMPREHENSIVE METABOLIC PANEL COMPREHENSIVE METABOLIC PANEL SODIUM 132 L mEq/L (134 - 153) POTASSIUM 3.6 mEq/L (3.6 - 5.0) CHLORIDE 95 L mEq/L (98 - 107) CO2 25 MEQ/L (22 - 30) GLUCOSE 229 H MG/DL (70 - 99) BUN 19 MG/DL (7 - 21) CREATININE 0.8 MG/DL (0.7 - 1.5) BUN/CREAT 24 (8 - 27) TOTAL PROTEIN 6.7 G/DL (6.3 - 8.2) ALBUMIN 4.2 G/DL (3.9 - 5.0) GLOBULIN 2.5 GM/DL (2.4 - 3.2) A/G RATIO 1.7 (0.8 - 2.0) CALCIUM 9.3 MG/DL (8.4 - 10.2) TOTAL BILI 1.6 H MG/DL (0.2 - 1.3) ALKALINE PHOS 120 U/L (38 - 126) SGOT/AST 17 U/L (5 - 40) SGPT/ALT 15 U/L (7 - 56) ANION GAP 12.0 mmol/L (8.0 - 16.0) AGE 75 yrs NON- AA GFR >60 mL/min AFR AMER GFR >60 mL/min Male GFR Interprentation 20-49 yrs >60 mL/min Cdbhya64-91 yrs >56 mL/min Normal 60-69 yrs >49 mL/min Normal 70-79yrs>42 mL/min Normal 80 and above >35 mL/min Normal Female GFRInterpretation 20-39 yrs >60 mL/min Normal 40-49 yrs >58 mL/min 4 Clinical Report - Physicians/Mid Levels [facility] Emergency Department [address] [place] [address] Phone #: ext- [phone] 03/13/2021 20:07 Patient: MAGDY LEACH Sex: M : 1945 Age: 75yNormal 50-59 yrs >51 mL/min Normal 60-69 yrs >45 mL/min Zxukvk34-59 yrs >39 mL/min Normal 80 and above >32 mL/min NormalTroponin-T: (MAIKOL: 03/13/2021 20:40) ( MsgRcvd 03/13/2021 21:22) Final results Test Result Flag Units (Reference) TROPONIN T <0.01 NG/ML (0.00 - 0.10) TROPONIN T0.1 ng/ml Recommended as the clinical threshold value forTroponin T.Chest Portable 1 View: (MAIKOL: 03/13/2021 20:21) ( MsgRcvd 03/13/2021 22:31) In ProgressCHEST PORTABLEReason(s): CongestionTRANSPORTATION: P IV? O2? Oxygen?(No) Room: EDHip Left with Pelvis Trauma: (MAIKOL: 03/13/2021 20:21) ( MsgRcvd 03/13/2021 22:31) In ProgressHIP UNILAT W PELV TRAUMA LTReason(s): Trauma/InjuryTRANSPORTATION: S IV? Room: ED ED3CT Head W/O Cont: (MAIKOL: 03/13/2021 20:21) ( MsgRcvd 03/13/2021 21:58) Final resultsCT HEAD W/O CONTRASTReason(s): Head InjuryTRANSPORTATION: S IV? O2? Oxygen?(No) Room: ED Exam CT HEAD W/[place] [address] ---------NAME--------- NUMBER SEX AGE ADMIT DISC. XRAY# F/C TYPE HAYLEE Forrester [id number] M 75 03/13/21 [id number] [id number] E/R DATE OF : 1945 M/R# [id number] PH#: [phone] TR-03 LOCATION: EMERGENCY DEPT TRANSCRIBED: 03/13/21 21:[address] HEAD W/O CONTRAST [id number] COMPLETED:03/13/21 21:58 carmella [id number] Reason(s): Head Injury Weakness PHYSICIAN: VICTOR MANUEL Nino R A D I O L O G Y R E P O R T PATIENT HISTORY: CT HEAD W/O CONTRAST TRAUMA ACCUMULATETD DLP 875 mGy*cm EST DLP 868.5 mGy*cm / BONE (DICOM Hx) EXAM: CT Head Without IV contrast. CLINICAL HISTORY: CT HEAD W/O CONTRAST TECHNIQUE: Axial computed tomography images of the head/brain without intravenous contrast. All CT scans at this facility use dose modulation, iterative reconstruction, and/or weight-based dosing when appropriate to reduce radiation dose to as low as reasonably achie vable. COMPARISON: None provided. 5 Clinical Report - Physicians/Mid Levels [facility] Emergency Department [address] [place] [address] Phone #: ext- [phone] 03/13/2021 20:07 Patient: MAGDY LEACH Sex: M : 1945 Age: 75y FINDINGS: BRAIN: No evidence of acute hemorrhage. No mass lesion. No CT evidence for acute territorial infarct. No midline shift or extra-axial collections. VENTRICLES: No hydrocephalus. ORBITS: The orbits are unremarkable. SINUSES AND MASTOIDS: The paranasal sinuses and mastoid air cells are clear. BONES: No fracture. SOFT TISSUES: Unremarkable. IMPRESSIONS: No acute intracranial abnormality. While performing the above CT examination, r adiation dose reduction was accomplished utilizing automated exposure control, adjusting of the mA and kV based on the patient's body size and/or the use of imperative reconstructive techniques. Electronically Signed By: Malik Owens M.D. , Radiologist Date/Time: 03/13/21 21:57CT Spine Cervical W/O Cont: (MAIKOL: 03/13/2021 20:21) ( MsgRcvd 03/13/2021 22:19) Final resultsCT CERV SPINE W/O CONTRASReason(s): PainTRANSPORTATION: S IV? O2? Oxygen?(No) Room: ED Exam [place] CERV SPINE W/[place] [address] ---------NAME--------- NUMBER SEX AGE ADMIT DISC. XRAY# F/C TYPE HAYLEE Forrester [id number] M 75 03/13/21 [id number] E/R DATE OF : 1945 M/R# [id number] #: [id number] TR-03 LOCATION: EMERGENCY DEPT TRANSCRIBED: 03/13/21 22:[address] CERV SPINE W/O CONTRAS [id number] COMPLETED:03/13/21 22:19 carmella [id number] Reason(s): Pain Trauma/Injury PHYSICIAN: VICTOR MANUEL Nino R A D I O L O G Y R E P O R T PATIENT HISTORY: CT CERV SPINE W/O CONTRAS TRAUMA ACCUMULATED DLP 231.9 mGy*cm EST DLP 229.3 mGY*cm / BONE , iDose (2) (DICOM Hx) EXAM: CT Cervical Spine Without IV contrast. CLINICAL HISTORY: CT CERV SPINE W/O CONTRAS TRAUMA ACCUMULATED DLP 231.9 mGy*cm EST DLP 229.3 mGY*cm 6 Clinical Report - Physicians/Mid Levels [facility] Emergency Department [address] [place] [address] Phone #: ext- [phone] 03/13/2021 20:07 Patient: MAGDY LEACH Sex: M : 1945 Age: 75y TECHNIQUE: Axial computed tomography images of the cervical spine without intravenous contrast. Sagittal and coronal reformatted images were generated. / All CT scans at this facility use dose modulation, iterative reconstruction, and/or weight-based dosing when appropriate to reduce radiation dose to as low as reasonably achievable. COMPARISON: None provided. FINDINGS: ALIGNMENT: Bony alignment is anatomic. DEGENERATIVE CHANGES: No significant canal stenosis or neural foraminal narrowing evident. SOFT TISSUES: The prevertebral soft tissues are within normal limits. BONES: No acute fracture or aggressive appearing osseous lesion. IMPRESSIONS: No acute cervical spine abnormality. While performing the above CT examination, radiation dose reduction was accomplished utilizing automated exposure control, adjusting of the mA and kV based on the patient's body size and/or the use of imperative reconstructive techniques. Electronically Signed By: Malik Owens M.D. , Radiologist Date/Time: 03/13/21 22:18.PROGRESS AND PROCEDURESCourse of Care: 20:58 03/13/21. Patient unable to pull himself upright. Pain appear to be localized to lowback and left hip. Possible head injury during fall. Patient weak and unable to take care of self at home. 22:25 03/13/21. Patient unsafe to go home. Unable to even stand. Findings discussed with Hospitalist. Critical care performed (35 minutes). Time is exclusive of separately billable procedures. Time includes: direct patient care, patient reassessment, interpretation of data and medical consultation. Old medical records ordered. Disposition: Observation in the Acute Inpatient Unit, Monitored.CLINICAL IMPRESSION Acute generalized weakness. Single contusion to the left hip. 7 Clinical Report - Physicians/Mid Levels [facility] Emergency Department [address] [place] [address] Phone #: ext- [phone] 03/13/2021 20:07 Patient: MAGDY LEACH Sex: M : 1945 Age: 75y(Electronically signed by Chris Barr 03/14/2021 03:46) Name Value Range Interpretation Code Description Data Alma rce(s) Supporting Document(s) ID Date Data Source [id number] 03/14/2021 12:46:00 AM EDT [facility] Name Value Range Interpretation Code Description Data Alma rce(s) Supporting Document(s) Lactate [Moles/volume] in Serum or Plasma 3.1 MMOL/L 0.2 - 2.2 H [facility] ID Date Data Source [id number] 03/14/2021 07:05:00 AM EDT [facility] NOTIFIED LABDoes the specimen need to be recollected?: YREASON REJECTED:: QNS - NO COLOR IN BOTTLETEST(S) ORDERED:: BLOOD CULT [id number] Name Value Range Interpretation Code Description Data Alma rce(s) Supporting Document(s) Laboratory BLOOD CULT [facility] Laboratory studies (set) QNS - NO COLOR IN BOTTLE [facility] One or more of the tests that youordered cannot be performed.Please recollect, reorder and resubmit. ID Date Data Source [id number] 03/19/2021 06:48:00 AM EDT [facility] NOTIFIED LABDoes the specimen need to be recollected?: YREASON REJECTED:: QNS - NO COLOR IN BOTTLETEST(S) ORDERED:: BLOOD CULT 11421 Name Value Range Interpretation Code Description Data Alma rce(s) Supporting Document(s) Bacteria identified in Blood by Culture [facility] NO GROWTH AFTER 5 DAYS ID Date Data Source [id number] 03/20/2021 02:20:00 PM EDT [facility] Name Value Range Interpretation Code Description Data Alma rce(s) Supporting Document(s) CULTURE BLOOD [facility] spital _CULTURE BLOOD_ TEST PERFORM ED AT [address] [address] CLIA# [id number] SEE SCANNED REPORT{ PRELIM ID Date Data Source [id number] 03/13/2021 10:50:00 PM EDT [facility] Name Value Range Interpretation Code Description Data Alma rce(s) Supporting Document(s) COVID19 Case rprt NOT DETECTED [facility] This lab was ordered by [facility] and reported by [facility]. ID Date Data Source [id number] 03/13/2021 11:09:00 PM EDT [facility] NOT DETECTEDNOT DETECTED{ PROC EDURAL CONTROL VALID KIT LOT # _[id number] 03/13/21.2309.LBS. KIT EXP DATE _57-9-23 03/13/21.2308.LBS. NORMAL RANGE IS NOT DETECTEDNEGATIVE RESULTS SHOULD BE TREATED PRESUMPTIVE AND, IF INCONSISTENT WITHCLINICAL SIGNS AND SYMPTOMS OR NECESSARY FOR PATIENT MANAGEMENT, SHOULD BETESTED WITH DIFFERENT AUTHORIZED OR CLEARED MOLECULAR TESTS. NEGATIVE RESULTSDO NOT PRECLUDE SARS-CoV-2 INFECTION AND SHOULD NOT BE USED THE SOLE BASISFOR PATIENT MANAGEMENT DECISIONS. Name Value Range Interpretation Code Description Data Alma rce(s) Supporting Document(s) ID Date Data Source [id number] 03/13/2021 10:18:00 PM EDT [facility] [address] [place] [address] ---------NAME--------- NUMBER SEX AGE ADMIT DISC. XRAY# F/C TYPE HAYLEE Forrester [id number] M 75 03/13/21 [id number] MB4 E/R DATE OF : 1945 M/R# [id number] #: [id number] TR-03 LOCATION: EMERGENCY DEPT TRANSCRIBED: 03/13/21 22:[address] CERV SPINE W/O CONTRAS [id number] COMPLETED:03/13/21 22:19 carmella [id number] Reason(s): Pain Trauma/Injury PHYSICIAN: VICTOR MANUEL Nino======== R A D I O L O G Y R E P O R T =PATIENT HISTORY:CT CERV SPINE W/O CONTRAS TRAUMA ACCUMULATED DLP 231.9 mGy*cm EST DLP 229.3mGY*cm / BONE , iDose (2) (DICOM Hx)EXAM: CT Cervical Spine Without IV contrast.CLINICAL HISTORY: CT CERV SPINE W/O CONTRAS TRAUMA ACCUMULATED DLP 231.9 mGy*cmEST DLP 229.3 mGY*cmTECHNIQUE: Axial computed tomography images of the cervical spine withoutintravenous contrast. Sagittal and coronal reformatted images were generated. /All CT scans at this facility use dose modulation, iterative reconstruction,and/or weight-based dosing when appropriate to reduce radiation dose to as lowas reasonably achievable.COMPARISON: None provided.FINDINGS:ALIGNMENT: Bony alignment is anatomic.DEGENERATIVE CHANGES: No significant canal stenosis or neural foraminalnarrowing evident.SOFT TISSUES: The prevertebral soft tissues are within normal limits.BONES: No acute fracture or aggressive appearing osseous lesion.IMPRESSIONS:No acute cervical spine abnormality.While performing the above CT examination, radiation dose reduction wasaccomplished utilizing automated exposure control, adjusting of the mA and kVbased on the patient's body size and/or the use of imperative reconstructivetechniques.Electronically Signed By:Malik Owens M.D. , RadiologistDate/Time: 03/13/21 22:18 Name Value Range Interpretation Code Description Data Alma rce(s) Supporting Document(s) ID Date Data Source [id number] 03/13/2021 09:57:00 PM EDT [address] [address] ---------NAME--------- NUMBER SEX AGE ADMIT DISC. XRAY# F/C TYPE HAYLEE Forrester [id number] M 75 03/13/21 [id number] MB4 E/R DATE OF : 1945 M/R# [id number] PH#: [phone] TR-03 LOCATION: EMERGENCY DEPT TRANSCRIBED: 03/13/21 21:[address] HEAD W/O CONTRAST [id number] COMPLETED:03/13/21 21:58 carmella [id number] Reason(s): Head Injury Weakness PHYSICIAN: VICTOR MANUEL Nino====== R A D I O L O G Y R E P O R T =PATIENT HISTORY:CT HEAD W/O CONTRAST TRAUMA ACCUMULATETD DLP 875 mGy*cm EST DLP 868.5 mGy*cm /BONE (DICOM Hx)EXAM: CT Head Without IV contrast.CLINICAL HISTORY: CT HEAD W/O CONTRASTTECHNIQUE: Axial computed tomography images of the head/brain withoutintravenous contrast. All CT scans at this facility use dose modulation,iterative reconstruction, and/or weight-based dosing when appropriate to reduceradiation dose to as low as reasonably achievable.COMPARISON: None provided.FINDINGS:BRAIN: No evidence of acute hemorrhage. No mass lesion. No CT evidence for acuteterritorial infarct. No midline shift or extra-axial collections.VENTRICLES: No hydrocephalus.ORBITS: The orbits are unremarkable.SINUSES AND MASTOIDS: The paranasal sinuses and mastoid air cells are clear.BONES: No fracture.SOFT TISSUES: Unremarkable.IMPRESSIONS:No acute intracranial abnormality.While performing the above CT examination, radiation dose reduction wasaccomplished utilizing automated exposure control, adjusting of the mA and kVbased on the patient's body size and/or the use of imperative reconstructivetechniques.Electronically Signed By:Malik Owens M.D. , RadiologistDate/Time: 03/13/21 21:57 Name Value Range Interpretation Code Description Data Alma rce(s) Supporting Document(s) ID Date Data Source [id number] 03/13/2021 11:36:00 PM EDT [facility] Name Value Range Interpretation Code Description Data [facility](s) Hemoglobin A1c/Hemoglobin.total in Blood 8.8 % 4.4 - 6.1 H [facility] {A1]{HB] ID Date Data Source [id number] 03/13/2021 09:22:00 PM EDT [facility] Name Value Range Interpretation Code Description Data Alma rce(s) Supporting Document(s) TROPONIN T <0.01 NG/ML 0.00 - 0.10 [facility]spital TROPONIN T0.1 ng/ml Recommended as the c linical threshold value forTroponin T. ID Date Data Source [id number] 03/13/2021 09:11:00 PM EDT [facility] Name Value Range Interpretation Code Description Data [facility](s) Supporting Document(s) COMPREHENSIVE METABOLIC PANEL [facility] COMPREHENSIVE METABOLIC PANEL Sodium [Moles/volume] in Serum or Plasma 132 mEq/L 134 - 153 L [facility] Potassium [Moles/volume] in Serum or Plasma 3.6 mEq/L 3.6 - 5.0 [facility] Chloride [Moles/volume] in Serum or Plasma 95 mEq/L 98 - 107 L [facility] Carbon dioxide, total [Moles/volume] in Serum or Plasma 25 MEQ/L 22 - 30 [facility] Glucose [Mass/volume] in Serum or Plasma 229 MG/DL 70 - 99 H [facility] BUN 19 [facility] 7 [facility] Creat[facility] [Mass/volume] in Serum or Plasma 0.8 MG/DL 0.7 - 1.5 [facility] BUN/CREAT 24 8 - 27 [facility] al Protein [Mass/volume] in Serum or Plasma 6.7 G/DL 6.3 - 8.2 [facility] Albumin [Mass/volume] in Serum or Plasma 4.2 G/DL 3.9 - 5.0 [facility] Globulin [Mass/volume] in Serum by calculation 2.5 GM/DL 2.4 - 3.2 [facility] A/G RATIO 1.7 0.8 - 2.0 [facility] Calcium [Mass/volume] in Serum or Plasma 9.3 MG/DL 8.4 - 10.2 [facility] Bilirubin.total [Mass/volume] in Serum or Plasma 1.6 MG/DL 0.2 - 1.3 H [facility] Alkaline phosphatase [Enzymatic activity/volume] in Serum or Plasma 120 U/L 38 - 126 [facility] Aspartate aminotransferase [Enzymatic activity/volume] in Serum or Plasma 17 U/L 5 - 40 [facility] Alanine aminotransferase [Enzymatic activity/volume] in Seru m or Plasma 15 U/L 7 - 56 [facility] Anion gap 3 in Serum or Plasma 12.0 mmol/L 8.0 - 16.0 [facility] AGE [address] [facility] NON-AA GFR >60 mL/min [facility] AFR AMER GFR >60 mL/min [facility] Male GFR In terprentation 20-49 yrs >60 mL/min Normal 50-59 yrs >56 mL/min Normal 60-69 yrs >49 mL/min Normal 70-79yrs >42 mL/min Normal 80 and above >35 mL/min Normal Female GFR Interpretation 20-39 yrs >60 mL/min Normal 40-49 yrs >58 mL/min Normal 50-59 yrs >51 mL/min Normal 60-69 yrs >45 mL/min Normal 70-79 yrs >39 mL/min Normal 80 and above >32 mL/min Normal ID Date Data Source [id number] 03/13/2021 08:49:00 PM EDT [facility] Name Value Range Interpretation Code Description Data Alma rce(s) Supporting Document(s) CBC W/AUTOMATED DIFF [facility] COMPLETE BLOOD COUNT Leukocytes [#/volume] in Blood by Automated count 9.5 10^3/uL 4.2 - 1 1.0 [facility] Erythrocytes [#/volume] in Blood by Automated count 5.07 10^6/uL 4. 50 - 6.30 [facility] Hemoglobin [Mass/volume] in Blood 15.1 g/dL 14.0 - 16.0 [facility] Hematocrit [Volume Fraction] of Blood by Automated count 42.8 % 4 1.0 - 51.0 [facility] Erythrocyte mean corpuscular volume [Entitic volume] by Auto mated count 84.4 fL 80.0 - 94.0 [facility] Erythrocyte mean corpuscular hemoglobin [Entitic mass] by Automated count 29.8 pg 27.0 - 34.0 [facility] Erythrocyte mean corpuscular hemoglobin concentration [Mass/volume] by Automated count 35.3 g/dL 31.0 - 36.0 [facility] Erythrocyte distribution width [Ratio] by Automated count 13.1 % 11.5 - 14.8 [facility] Platelets [#/volume] in Blood by Automated count 267 10^3/uL 150 - 45 0 [facility] Platelet mean volume [Entitic volume] in Blood by Automated count 9.2 fL 7.4 - 10.4 [facility] Neutrophils/100 leukocytes in Blood by Automated count 75.5 % 37. 0 - 80.0 [facility] Lymphocytes/100 leukocytes in Blood by Manual count 14.1 % 25.0 - 40.0 L [facility] Monocytes/100 leukocytes in Blood by Automated count 9.3 % 3.0 - 8.0 H [facility] Eosinophils/100 leukocytes in Blood by Automated count 0.4 % 0.0 - 7.0 [facility] Basophils/100 leukocytes in Blood by Automated count 0.4 % 0.0 - 2.0 [facility] %IG 0.3 % 0.0 - 0.0 H [facility] %NRBC 0.0 % 0.0 - 0.0 [facility] al Neutrophils [#/volume] in Blood by Automated count 7.16 10^3/uL 2.00 - 6.90 H [facility] Lymphocytes [#/volume] in Blood by Automated count 1.34 10^3/uL 0.60 - 3.40 [facility] Monocytes [#/volume] in Blood by Automated count 0.88 10^3/uL 0.00 - 0.90 [facility] Eosinophils [#/volume] in Blood by Automated count 0.04 10^3/uL 0.00 - 0.70 [facility] Basophils [#/volume] in Blood by Automated count 0.04 10^3/uL 0.00 - 0.20 [facility] #IG 0.03 10^3/uL 0.00 - 0.10 [facility] #NRBC 0.00 10^3/uL 0.00 - 0.00 [facility] MANUAL DIFF NOT INDICATED [facility] RBC MORPH NOT INDICATED [facility] ID Date Data Source [id number] 02/09/2021 04:40:00 PM EDT [facility]) Name Value Range Interpretation Code Description Data Alma rce(s) Supporting Document(s) Blood Glucose: mg/dl Blood Glucose: mg/dl [facility]) ID Date Data Source [id number] 02/09/2021 04:40:00 PM EDT [facility]) Name Value Range Interpretation Code Description Data Alma rce(s) Supporting Document(s) Blood Glucose: mg/dl Blood Glucose: mg/dl [facility]) ID Date Data Source [id number] 02/09/2021 04:40:00 PM EDT [facility]) Name Value Range Interpretation Code Description Data Alma rce(s) Supporting Document(s) Blood Glucose: mg/dl Blood Glucose: mg/dl AULTMAN ([facility]) ID Date Data Source [id number] 02/09/2021 04:40:00 PM EDT [facility]) Name Value Range Interpretation Code Description Data Alma rce(s) Supporting Document(s) Blood Glucose: mg/dl Blood Glucose: mg/dl AULTMAN ([facility]) ID Date Data Source [id number] 02/09/2021 04:33:00 PM EDT [facility]) Name Value Range Interpretation Code Description Data Alma rce(s) Supporting Document(s) bilirubin neg Bilirubin JAIRON ([facility]) leukocytes neg Leukocytes JAIRON ([facility]) blood Blood JAIRON ([facility]) ketone Ketone JAIRON ([facility]) glucose Glucose JAIRON ([facility]) specific gravity Specific [place] ([facility]) pH Ph JAIRON ([facility]) protein Protein JAIRON ([facility]) nitrite neg Nitrite JAIRON ([facility]) urobilinogen neg Urobilinogen JAIRON ([facility]) ID Date Data Source [id number] 02/09/2021 04:33:00 PM EDT JAIRON ([facility]) Name Value Range Interpretation Code Description Data Alma rce(s) Supporting Document(s) bilirubin neg Bilirubin JAIRON ([facility]) glucose Glucose JAIRON ([facility]) blood Blood JAIRON ([facility]) nitrite neg Nitrite JAIRON ([facility]) leukocytes neg Leukocytes JAIRON ([facility]) ketone Ketone JAIRON ([facility]) pH Ph JAIRON ([facility]) specific gravity Specific [place] ([facility]) protein Protein JAIRON ([facility]) urobilinogen neg Urobilinogen JAIRON ([facility]) ID Date Data Source [id number] 02/09/2021 04:33:00 PM EDT JAIRON ([facility]) Name Value Range Interpretation Code Description Data Alma rce(s) Supporting Document(s) bilirubin neg Bilirubin JAIRON ([facility]) blood Blood JAIRON ([facility]) glucose Glucose JAIRON ([facility]) ketone Ketone JAIRON ([facility]) leukocytes neg Leukocytes JAIRON ([facility]) nitrite neg Nitrite JAIRON ([facility]) pH Ph JAIRON ([facility]) specific gravity Specific [place] ([facility]) protein Protein JAIRON ([facility]) urobilinogen neg Urobilinogen JAIRON ([facility]) ID Date Data Source [id number] 02/09/2021 04:33:00 PM EDT JAIRON ([facility]) Name Value Range Interpretation Code Description Data Alma rce(s) Supporting Document(s) bilirubin neg Bilirubin JAIRON ([facility]) glucose Glucose [facility] ([facility]) blood Blood [facility] ([facility]) leukocytes neg Leukocytes [facility] ([facility]) nitrite neg Nitrite JAIRON ([facility]) ketone Ketone JAIRON ([facility]) protein Protein JAIRON ([facility]) specific gravity Specific [place] ([facility]) pH Ph JAIRON ([facility]) urobilinogen neg Urobilinogen JAIRON ([facility]) ID Date Data Source [id number] 02/02/2021 11:59:00 AM EDT JAIRON ([facility]) Name Value Range Interpretation Code Description Data Alma rce(s) Supporting Document(s) bedside glucose 251 mg/dL 83-110 Above high normal Bedside Gluco se JAIRON ([facility]) ID Date Data Source [id number] 02/02/2021 11:59:00 AM EDT [facility]) Name Value Range Interpretation Code Description Data Alma rce(s) Supporting Document(s) bedside glucose 251 mg/dL 83-110 Above high normal Bedside Gluco se JAIRON ([facility]) ID Date Data Source [id number] 02/02/2021 11:59:00 AM EDT [facility] Name Value Range Interpretation Code Description Data Alma rce(s) Supporting Document(s) bedside glucose 251 mg/dL 83-110 Above high normal Bedside Gluco se [facility]) ID Date Data Source [id number] 02/02/2021 11:59:00 AM EDT JAIRON ([facility]) Name Value Range Interpretation Code Description Data Alma rce(s) Supporting Document(s) bedside glucose 251 mg/dL 83-110 Above high normal Bedside Gluco se JAIRON ([facility]) ID Date Data Source [id number] 01/30/2021 05:01:00 PM EDT [facility] Name Value Range Interpretation Code Description Data Alma rce(s) Supporting Document(s) SARS coronavirus 2 RNA [Presence] in Res piratory specimen by GAVIN with probe detection NEGATIVE [facility] This lab was ordered by [facility] a nd reported by [facility]. ID Date Data Source [id number] 01/10/2021 06:28:00 [place] [address] PROGRESS NOTENAME: HAYLEE Forrester ROOM#: [id number] OF : 1945 MR#: [id number] DATE: 01/10/21 OF SERVICE: 01/10/21SUBJECTIVE: The patient complains of tiredness, fatigue. He had multiple episodes of syncope. This timehe came in with syncope. The patient denies any chest pain. He complains of pain in the knee after he felldown. CT scan of the knee does not show any fracture or effusion. ROS: The patient will be monitored withtelemetry monitoring. There is no history of any dizziness, syncope. No chills or fever. No cough orhemoptysis. No bowel disturbance. No urinary problem. No ankle edema.OBJECTIVE: On exam, moderately built. Blood pressure is 120/80. Head is normal. Heart is regular sinusrhythm. Lungs are clear. Abdomen is soft. Extremities are normal.LABORATORY DATA: WBC 7.7, RBC 4.76, hemoglobin 14.1, hematocrit 41.0, MCV 86.1, MCH29.6, MCHC 34.4, RDW 13.2, platelets 265, MPV 9.5. Sodium 131, potassium 4.2, chloride 97, CO225, glucose 165, BUN 24, creatinine 0.7, BUN/creatinine ratio 34, calcium 9.1, anion gap 9.0.ASSESSMENT/PLAN: Patient has the following problems.1. Hyponatremia. Sodium is 131. Plan to continue normal saline at 60 cc/hr. We will do a serum cortisol level. We will do serum osmolality and urine osmolality to rule out diabetes insipidus.2. Episode of syncope. 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 We will seek an opinion from the cardiac carton catcher from [place]. The patient might be a candidate for a pacemaker.3. Patient has frequency of micturation. Dr. Klein saw the patient from urology and he wants to see him as an outpatient. PSA is normal.DD: Paul Rushing MD, PC 01/10/21 09:06DT: DULCE 01/10/21 17:59DS: Paul Rushing MD, PC 01/16/21 08:27 1 Name Value Range Interpretation Code Description Data Alma rce(s) Supporting Document(s) ID Date Data Source [id number] 01/09/2021 11:55:00 [place] [address] PROGRESS NOTENAME: HAYLEE Forrester ROOM#: [id number] OF : 1945 MR#: [id number] DATE: 01/08/21 OF SERVICE: 01/09/21SUBJECTIVE: This patient has known history of diabetes, hypertension. He has not been taking anymedication for the last 3 weeks. Patient complains of tiredness and fatigue. Patient fell down at home. Hethinks he had syncope. He injured the left knee. ROS: The patient is forgetful for the last few months. Thepatient denies any chills or fever. No cough or hemoptysis. No bowel disturbance. No urinary problem. Noankle edema. He had a previous episode of fall and syncope, for which he was hospitalized at [facility]. He was also in rehab.OBJECTIVE: On exam, moderately built. Blood pressure is 160/80. Head is normal. Heart is regular sinusrhythm. Lungs are clear. Abdomen is soft. Extremities are normal. Neurological examination: No neurologicaldeficit. Patient can move all extremities. The left knee has tenderness and some limitation and slightlyswollen.LABORATORY DATA: WBC 4.2, RBC 5.04, hemoglobin 15.0, hematocrit 42.7, MCV 84.7, MCH29.8, MCHC 35.1, RDW 13.1, platelets 275, MPV 9.8. Sodium 127, potassium 4.5, chloride 94, CO222, glucose 334, BUN 21, creatinine 0.5, BUN/creatinine ratio 42, calcium 9.4, anion gap 11.0.ASSESSMENT/PLAN: Patient has the following issues:1. Episode of fall, syncope. Plan is to continue monitoring with telemetry monitoring. Orthostatic blood pressure checks are being done.2. Uncontrolled diabetes. Blood sugar is 334. Patient was not taking any medications, so we added Amaryl 2 mg daily and metformin 500 mg b.i.d.3. Hyponatremia. Sodium is 127. Plan to continue normal saline at 80 cc/hr IV to improve hyponatremia.4. Injury to left knee. Plan to do pain management. Gabapentin will be given at 300 mg b.i.d. and Ultram 50 mg as needed for pain in the left knee. Will do a CT scan of the left knee for effusion or any fracture.5. We want to rule out cardiac arrhythmia. We will do telemetry monitoring.DD: Paul Rushing MD, 01/09/21 09:36DT: DULCE 01/09/21 23:27DS: Paul Rushing MD, PC 01/16/21 08:27 1 Name Value Range Interpretation Code Description Data Alma rce(s) Supporting Document(s) ID Date Data Source [id number] 01/10/2021 05:42:00 [place] [address] HISTORY AND PHYSICALNAME: HAYLEE Forrester ROOM#: [id number] OF : 1945 MR#: [id number] PHYS: Paul Rushnig MD, PC DATE: 01/08/21CHIEF COMPLAINT: This 75-year-old white male had an episode of fall. He thinks he had syncope. Hefell down and injured his left knee and had difficulty walking. Patient complains of tiredness and fatigue.HISTORY OF PRESENT ILLNESS:The patient is not sure whether he passed out. He fell down and injured his left knee. He has episodes offrequent falls, forgetfulness. He has been to [facility] a couple of times and was admitted. He alsowas in a rehab center for 3 weeks. Patient has vague memory and cannot give a proper history. The patientstated he was walking in his house, going to the window and suddenly he fainted, falling on the floor, causinginjury to the left knee. He claims that he has done this a couple of times before. Patient was also seen [facility]. The patient denies any chest pain. There is no history of any orthopnea or paroxysmalnocturnal dyspnea. He denies any headache. He is not sure whether he passed out.PAST MEDICAL HISTORY:The patient has known history of COPD. He has not taken any medication for the last 3-4 weeks.Patient was admitted in September to [facility] for dizziness, episode of fall and we will get allof those records. Patient cannot give any more detailed history. Several years ago, I admitted him forCOPD. Patient has hypertension, diabetes, hyperlipidemia, history of discectomy and lumbarlaminectomy in the past at L5- S1, history of tonsillectomy.REVIEW OF SYSTEMS:There is no history of any orthopnea or paroxysmal nocturnal dyspnea. No chills or fever. No cough orhemop tysis. No bowel disturbance. No urinary problem. No ankle edema. He has instability of gait.PERSONAL HISTORY:Nonsmoker.FAMILY HISTORY:Father of metastatic cancer. Mother with senile dementia and cancer.PHYSICAL EXAMINATION:GENERAL: Moderately-built.VITAL SIGNS: Blood pressure is 130/80. Pulse was 80. Temperature was 98. Respirations 18.HEENT: Head is normal. Pupils and fundus reveal grade 2 changes. Mouth normal. Tongue dry.NECK: Supple. No lymphadenopathy. Thyroid not enlarged. Neck veins are not distended. No carotidbruits.CHEST: Symmetrical.HEART: Regular sinus rhythm. No murmur or gall op.LUNGS: Clear with no rales or rhonchi. [address] [place] [address] HISTORY AND PHYSICALNAME: HAYLEE Forrester ROOM#: [id number] OF : 1945 MR#: [id number] PHYS: Paul Rushing MD, DATE: 01/08/21ABDOMEN: Soft and nontender. No visceromegaly.EXTREMITIES: Normal. Patient is tender in the left knee with some restriction of movement in theleft knee noted. No pitting edema. Peripheral pulses are palpable.NEUROLOGICAL: Patient with instability of gait. Cranial nerves are intact. Reflexes are normal. Tone in themuscles is normal. Filament test is negative.IMPRESSION: 1. TIA. 2. Episode of fall. 3. History of left knee. 4. History of COPD. 5. History of hypertension.PLAN:This patient has not been taking any medication for the last 3-4 weeks. He was hospitalized in September 2020to [facility] and we will get all those records. We will do a CT scan of the brain. We will also givehim IV fluids. He is not eating well. He lost weight and he is emaciated. PT/OT will be done. X-ray of the leftknee will be done to rule out fracture.DD: Paul Rushing MD, 01/08/21 18:30DT: DULCE 01/09/21 04:18/SSR 01/09/21 06:59DS: Paul Rushnig MD, 01/16/21 08:27 2 Name Value Range Interpretation Code Description Data Alma rce(s) Supporting Document(s) ID Date Data Source [id number] 01/10/2021 05:56:00 [place] [address] DISCHARGE SUMMARYNAME: HAYLEE Forrester ROOM#: [id number] OF : 1945 MR#: [id number] PHYS: Paul Rushing MD, DATE: 01/10/21 DISCHARGED:HISTORY OF PRESENT ILLNESS:This 75-year-old white male presented with an episode of fall with injury to the left knee and possiblesyncope. The patient claims that he was walking in his house going to the window when suddenly he fainted,falling to the floor, causing injury to the left knee. He had previous episode of syncope and was admitted [facility]. On examination, blood pressure was 130/80. Head is normal. Heart is regular sinusrhythm. Lungs are clear. Abdomen is soft. Patient has not been taking any medication for the last 6 weeks. Hehas known diabetes and hypertension.LABORATORY & X-RAY DATA:Lab tests showed that his echocardiogram done at [facility] [place] [facility] was normal. Carotid ultrasound wasnormal. His EKG was regular sinus rhythm with right bundle branch pattern, left axis deviation, firstdegree heart block, possible trifascicular block. CT scan of the chest showed suspicious PE in thelower lobe but the radiologist was not definite. Ultrasound of the legs was negative for blood clot. Ironlevel was 41, which was low. BNP was 174. Cholesterol was 76. D-dimer was 0.65, which wasborderline high, not consistent with PE. Repeat D-dimer was 0.27 on 01/10. TSH was normal.HOSPITAL COURSE:The patient was monitored with telemetry monitoring. He does have significant first degree heart blockwith right bundle branch pattern and left axis deviation. Neuro checks were done. Orthostatic bloodpressure readings were done. His sodium was low, being 131, potassium 4.2, so he was given normalsaline at 60-80 cc/hr. Telemetry monitoring showed first degree heart block. The patient hastrifascicular heart block, so it was decided to speak with Dr. Pascual, the cardiac carton catcher [facility]. The patient had two episodes of syncope, so it the possibility of advance heartblock cannot be ruled out. He might be a candidate for a pacemaker and EP studies, so the patient willbe transferred to his service at [facility] for evaluation for permanent pacemaker. Thepatient had a CT scan of the left knee done which did not show any effusion or fracture. He was stableat the time of transfer. Ultrasound of the legs was negative for blood clot. The patient was transferredstable.FINAL DIAGNOSES:1. Syncope, recurrent.2. 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 Injury to left knee.4. History of hypertension.5. History of diabetes.6. Suspicious pulmonary emboli in the lower lobe of the lung, but the radiologist was not convinced. [address] [place] [address] DISCHARGE SUMMARYNAME: HAYLEE Forrester ROOM#: 101-1DATE OF : 1945 MR#: [id number] PHYS: Paul Rushing MD, PC DATE: 01/10/21 DISCHARGED:DD: Paul Rushing MD, PC 01/10/21 17:02DT: DMLuz 01/10/21 17:43DS: Paul Rushing MD, PC 01/16/21 08:27 2 Name Value Range Interpretation Code Description Data Alma rce(s) Supporting Document(s) ID Date Data Source [id number] 01/15/2021 08:52:50 AM EDT [facility] Name Value Range Interpretation Code Description Data Alma rce(s) Supporting Document(s) &PDF [facility] [id number] [file] [id number] ID Date Data Source [id number] 01/13/2021 11:03:33 PM EDT [facility] NT INFORMATIONPatient MRN Name Date of Age Gend*PT [id number] Magdy Leach 1945 75 years M IPPT Location Admission Date/Time Visit ID Attending [id number] 01/10/212351 --- --- EPI ID CSN Admitting Provider [id number] M Alexander Pascual MD([id number]) Attestation signed by Carla Tolentino MD at 01/13/2021 11:03 PMI saw and evaluated the patient and 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 I agree withthe history, physical and medical decision making with the following additions,exceptions, and/or observations: NoneSignature: JASON Leyvaate: January 13, 2021Time: 11:03 PM --Cardiology Discharge SummaryPatient Name: Magdy Leach of : 1945 Age 75 yearsPrimary Physician: PCP PROVIDER REQUESTED PCP Phone: NoneAdmission Date: 01/10/2021 Discharge Date: 01/13/2021He will be discharged from [facility] to [facility] Diagnoses:Principal Problem: Abnormal EKG PPMActive Problems: Diabetes mellitus Hypertension Hyperlipemia Dementia Frequent falls Syncope Acute pain of left kneeDischarge Medications:Your medication listCONTINUE taking these medications Instructions Last Dose Given Morning Afternoon Evening Bedtime As NeededamLODIPine 5 MG tabletCommonly known as: NORVASC Take 1 tablet (5 mg total) by mouth dailyWhere to Get Your MedicationsThese medications were sent to [facility] [address] [place], [place] [facility] [address] amLODIPine 5 MG tabletFollow Up Instructions:Dr. Segura Hospital Course:1. 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 Has signed out of rehab recently. [facility] ground crew chief following. Discharge Exam:Blood Pressure: BP: 111/73 Pulse: Heart Rate: 92Temperature: Temp: 97.6 F Respirations: Resp: 18Admission Weight: Weight: 88.9 kg (196 lb) O2 Saturation: SpO2: 95 %Discharge Weight: Weight: 88.9 kg (196 lb) BMI: Body mass index is 23.86 kg/m .Discharge Physical Exam:Lungs: CLEAR anteriorlyHeart: RRAbd: SOFT/NONTENDER/NO DISTENTIONExt : WARM/DRY/NO EDEMA (+) pulsesLeft subclavian pacemaker site intact. Dressing dry and intact. No bleeding orhematoma.Diagnostics:Results Procedure Component Value Units Date/Time COVID/FLU AB/RSV PCR [[id number]] Collected: 01/11/21 0100 Order Status: Completed Specimen: Swab from Nasopharyngeal Updated: SPECIMEN DESCRIPTION NASOPHARYNGEAL Influenza A NEGATIVE Influenza B NEGATIVE RSV NEGATIVE Comment SEE NOTES Comment: SEE NOTE:THE U.S. FDA HAS MADE THIS TEST AVAILABLEUNDER AN EMERGENCY USE AUTHORIZATION(EUA) FOR THE DETECTION AND/OR DIAGNOSISOF THE VIRUS THAT CAUSES COVID-19.PERFORMED AT [address] [place] [id number] COVID19 RESULT NOT DETECTED Comment: THIS ASSAY AMPLIFIES AND DETECTSTHE TARGET RNA USING REAL-TIME PCR.TESTING PERFORMED ON [employer] GENEXPERTNEGATIVE 2019_NCOV RT-PCR RESULTS DONOT PRECLUDE 2019_NCOV INFECTION ANDSHOULD NOT BE USED THE SOLE BASISFOR PATIENT MANAGEMENT DECISIONS. FIRST TEST YES EMPLOYED IN HLTHCARE NO SYMPTOMATIC NO DATE OF SYMPT ONSET NOT APPLICABLE HOSPITALIZED YES ICU NO CONGREGATE CARE SET NO NOMary Jessica, NPTotal time spent for discharge on date of discharge: 30 minutes Name Value Range Interpretation Code Description Data Alma rce(s) Supporting Document(s) ID Date Data Source [id number] 01/13/2021 12:21:35 PM EDT [facility] Name Value Range Interpretation Code Description Data Alma rce(s) Supporting Document(s) POC NOVA GLU 202 mg/dL (70-99) H [facility] PERFORMED BY [facility] ID Date Data Source [id number] 01/13/2021 08:54:59 AM EDT [facility] Name Value Range Interpretation Code Description Data Alma rce(s) Supporting Document(s) POC NOVA GLU 158 mg/dL (70-99) H [facility] PERFORMED BY [facility] ID Date Data Source [id number] 01/13/2021 08:54:35 AM EDT [facility] Name Value Range Interpretation Code Description Data Alma rce(s) Supporting Document(s) SODIUM 131 mmol/L (136-145) L [facility] POTASSIUM 4.3 mmol/L (3.6-5.2) [facility] CHLORIDE 97 mmol/L (100-108) L [facility] CO2 25 mmol/L (22-31) [facility] ANION GAP 9 mmol/L (7-16) [facility] UREA NITROGEN 23 mg/dL (7-24) [facility] CREATININE 0.67 mg/dL (0.80-1.30) L [facility] BUN/CREAT RATIO 34.3 RATIO (10.0-20.0) H [facility] GLUCOSE 159 mg/dL (70-99) H [facility] CALCIUM 9.0 mg/dL (8.4-10.2) [facility] GFR >60 ml/min/1.73m2 (>59) [facility] GFR ( AMER) >60 ml/min/1.73m2 (>59) [facility] GFR INTERPRETATION [facility] --NORMAL KIDNEY FUNCTION OR MILD DISEASE - GFR >OR= 60CHRONIC KIDNEY DISEASE - GFR 15 - 59RENAL FAILURE - GFR <15 Est. GFR calculation based on the MDRDstudy equation, which assumes a steadystate for creatinine. Est. GFR should notbe used for medication dosing. ID Date Data Source [id number] 01/13/2021 08:20:39 AM EDT [facility] Name Value Range Interpretation Code Description Data Alma rce(s) Supporting Document(s) WBC 5.6 10*3/uL (4.1-11.0) [facility] RBC 5.48 10*6/uL (4.60-6.10) [facility] HGB 16.3 g/dL (13.5-18.0) [facility] HCT 48.2 % (41.0-53.0) [facility] MCV 87.9 fL (80.0-95.0) [facility] MCH 29.8 pg (27.0-32.0) [facility] MCHC 33.9 g/dL (32.0-36.0) [facility] RDW 14.4 % (10.5-14.5) [facility] PLT 238 10*3/uL (150-450) [facility] MPV 7.7 fL (7.1-10.7) [facility] ID Date Data Source [id number] 01/12/2021 07:22:09 PM EDT [facility] Name Value Range Interpretation Code Description Data Alma rce(s) Supporting Document(s) POC NOVA GLU 138 mg/dL (70-99) H [facility] PERFORMED BY [facility] ID Date Data Source [id number] 01/12/2021 06:59:22 PM EDT [address] [address]Iirykhg Name: MAGDY KAURONDOB: 1945Sex: MOrdering Provider: Brooklyn Ding Prov: Brooklyn Hu Provider: Procedure Performed: XR CHEST PORTABLEExam Date: 01/12/2021 18:55MRN: [id number] Number: [id number] Class: InpatientAccount #: [id number] for Exam: ppmTechnique: AP portable view obtained.Comparison: October 03, 2020Findings: Heart size is normal. No adenopathy is revealed. Right atrial and right ventricle pacemaker leads are present. Lungs are hypoinflated. No pleural effusion is demonstrated.IMPRESSION: No acute abnormality.Report electronically signed by: FRANCK BERNAL On 01/12/2021 6:59 PMWorkstation ID: [id number] Name Value Range Interpretation Code Description Data Alma rce(s) Supporting Document(s) ID Date Data Source [id number] 01/12/2021 12:38:34 PM EDT [facility] Name Value Range Interpretation Code Description Data Alma rce(s) Supporting Document(s) POC NOVA GLU 155 mg/dL (70-99) H [facility] PERFORMED BY [facility] ID Date Data Source [id number] 01/12/2021 08:41:31 AM EDT [facility] Name Value Range Interpretation Code Description Data Alma rce(s) Supporting Document(s) POC NOVA GLU 175 mg/dL (70-99) H [facility] PER[facility] BY [facility] ID Date Data Source [id number] 01/12/2021 06:11:35 AM EDT [facility] Name Value Range Interpretation Code Description Data Alma rce(s) Supporting Document(s) SODIUM 131 mmol/L (136-145) [facility] POTASSIUM 4.2 mmol/L (3.6-5.2) [facility] CHLORIDE 95 mmol/L (100-108) [facility] CO2 27 mmol/L (22-31) [facility] ANION GAP 9 mmol/L (7-16) [facility] UREA NITROGEN 21 mg/dL (7-24) [facility] CREATININE 0.68 mg/dL (0.80-1.30) [facility] BUN/CREAT RATIO 30.9 RATIO (10.0-20.0) [facility] GLUCOSE 140 mg/dL (70-99) [facility] CALCIUM 8.9 mg/dL (8.4-10.2) [facility] GFR >60 ml/min/1.73m2 (>59) [facility] GFR ( AMER) >60 ml/min/1.73m2 (>59) [facility] GFR INTERPRETATION [facility] --NORMAL KIDNEY FUNCTION OR MILD DISEASE - GFR >OR= 60CHRONIC KIDNEY DISEASE - GFR 15 - 59RENAL FAILURE - GFR <15 Est. GFR calculation based on the MDRDstudy equation, which assumes a steadystate for creatinine. Est. GFR should notbe used for medication dosing. ID Date Data Source [id number] 01/12/2021 05:38:24 AM EDT [facility] Name Value Range Interpretation Code Description Data Alma rce(s) Supporting Document(s) WBC 6.4 10*3/uL (4.1-11.0) [facility] RBC 5.20 10*6/uL (4.60-6.10) [facility] HGB 15.5 g/dL (13.5-18.0) [facility] HCT 45.5 % (41.0-53.0) [facility] MCV 87.5 fL (80.0-95.0) [facility] MCH 29.9 pg (27.0-32.0) [facility] MCHC 34.2 g/dL (32.0-36.0) [facility] RDW 14.2 % (10.5-14.5) [facility] PLT 261 10*3/uL (150-450) [facility] MPV 8.1 fL (7.1-10.7) [facility] ID Date Data Source [id number] 01/11/2021 07:52:46 PM EDT [facility] INFORMATIONPatient MRN Name Date of Age Gend*PT [id number] Magdy Leach 1945 75 years M IPPT Location Admission Date/Time Visit ID Attending [id number] 01/10/212 --- Brooklyn Pascual MD([id number]) EPI ID CSN Admitting Provider [id number] Brooklyn Pascual MD([id number]) Attestation signed by Brooklyn Pascual MD at 01/11/2021 7:52 PMATTENDING ADDENDUM:I saw and examined Mr. Leach today, and agree with the exam, assessment,and plan of ilana Ramos, noted above.In brief, Mr. Leach presents with syncope.On physical exam, the vital signs were BP 116/66 (BP Location: Left upper arm,Patient Position: Sitting) | Pulse 73 | Temp 97.7 F (Oral) | Resp 18 |SpO2 97% .A 9 body area/organ physical examination was performed.General: patient in NAD.HEENT: NC/AT, sclerae anicteric, moist mucous membranes.Neck: Supple. No thyromegaly was appreciated.Lungs: CTAB, without rales, rhonchi, or wheezes.CV: regular rate & rhythm, no murmurs, rubs, or gallops. Normal S1/S2. TheJVP is <8 cm while sitting upright.Abd: Soft, NT, ND.Extremities: No pitting edema, cyanosis or clubbing.Skin: Warm & dry, without jaundice or bruising.Psych: A&O x3, affect appropriate.Problem List:Recurrent syncope and fallsBifascicular blockDiabetes mellitusHypertensionHyperlipemiaDementiaPlan: Discussed EPS/PPM: ddeclinedWill proceed with ILR implantI agree with the plan as noted above.Alexander Pascual M.D., [facility], [facility]inical Cardiac Electrophysiology01/11/2021 7:37 PM --Inpatient History & PhysicalHoward HayleeMRN: [id number] and Plan:Principal Problem: Abnormal EKGActive Problems: Diabetes mellitus Hypertension Hyperlipemia Dementia Frequent falls Syncope Acute pain of left knee1. Abnormal EKG: he was transferred for 2nd degree heart block. There is noevidence of this on any of the EKGs or tele strips that were sent with him. EKGshows R BBB and left anterior fascicular block which is unchanged from previousEKGs. He has been evaluated by Dr. Collazo in the past. The patient is not ableto tell me if he follows with Dr. Collazo on a regular basis. NPO for possible EPstudy. Continue to monitor tele. Avoid blocking agents.2. Syncope: several months history with this CC. [facility] all for falls with possible syncope over the last 5 months. ??Polypharmacy- it is possible he is doubling medications at home with hisunderling dementia. He has had carotid doppler at [facility] showing < 50 stenosisbilaterally. TTE was done outpatient 04/2020 showing LV EF 60% and grade Idiastolic dysfunction. Check orthostatic BP, update TTE (I do not see any recordof this being updated at [facility]).3. HTN: continue home dose of norvasc. Hold BB. Pt has reportedly not takenmedications for several weeks for reasons that are not clear.4. DM II: hold oral agents and start frail SS insulin. Adjust coverage asneeded.5. HLD: continue statin6. Left knee pain- acute: S/p fall. CT scan at [facility] demonstrated moderateeffusion, no fracture. Consider ortho consult. PT eval7. Dementia: unreliable historian. Reportedly living alone at home. Consider SWconsult for safe discharge plan. Pt has had many falls at home. He has alsoreportedly been without medications for several weeks. It seems as thoughpatient can not safely care for himself. He is oriented to person but not timeor place. He tells me it is January, and he is in [place]. He does not know whatyear it is.DVT px: heparinHistory of Present Illness: Magdy is a 75 year old male with PMH of COPD,dementia, DM II, HTN, HLD who was transferred from [facility] because ofan abnormal EKG. The patient presented to [facility] on 01/08 for fall withpossible syncope. Pt has underlying dementia and is a poor historian. He stateshe got tangled in the dog's kennel while moving through his kitchen and couldnot get untangled. He states he lives alone. He was [facility] in [facility] and has had multiple falls over the last several months with questionablesyncope. He has been seen by Dr. Collazo in the past for chest pain and nearsyncope dating back several years as per notes in [facility]. Therecords sent from [facility] indicated that the patient has not hadmedications in several months. The patient does not drive but tells me that hisprescriptions are delivered to him. On exam, he is somnolent, wakes to strongtactile stimulation. He is able to provide some history, however, he is onlyoriented to person. He is not oriented to time or place and [place] and it it January and he does not know the month. He is tangential inthoughts and has difficulty following conversation and answering questions. Workup at [facility] included carotid doppler which demonstrated <50%stenosis bilaterally, CT head which was negative for acute process, CT left kneewhich demonstrated foreign body and moderate effusion- no fracture. 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 Hereportedly was in second degree block which is the reason for transfer, however,there is no documentation of this in the chart that was sent from [facility].Past Medical History:Past Medical History:Diagnosis Date COPD (chronic obstructive pulmonary disease) Dementia Diabetes mellitus Hyperlipemia HypertensionPast Surgical History:Past Surgical History:Procedure Laterality Date LAMINECTOMY TONSILLECTOMYMedications:Medications Prior to AdmissionMedication Sig Dispense Refill Last Dose amLODIPine (NORVASC) 5 MG tablet Take 5 mg by mouth daily atenolol (TENORMIN) 50 MG tablet Take 50 mg by mouth daily finasteride (PROSCAR) 5 MG tablet Take 5 mg by mouth daily glimepiride (AMARYL) 2 MG tablet Take 2 mg by mouth every morning beforebreakfast losartan (COZAAR) 25 MG tablet Take 25 mg by mouth daily simvastatin (ZOCOR) 20 MG tablet Take 20 mg by mouth nightly sodium chloride 1 g tablet Take 20 mg by mouth daily tamsulosin (FLOMAX) 0.4 MG CAPS Take 0.4 mg by mouth dailyAllergies:Morphine and relatedFamily History:Family HistoryProblem Relation Age of Onset Dementia Mother Cancer Mother Cancer Father Healthy, No Significant History Daughter Other Grandchild attempted suicide at age 15Social History:Social HistorySocioeconomic History Marital status: Spouse name: Not on file Number of children: Not on file Years of education: Not on file Highest education level: Not on fileOccupational History Not on fileTobacco Use Smoking status: Never Smoker Smokeless tobacco: Never UsedSubstance and Sexual Activity Alcohol use: Not Currently Drug use: Not Currently Sexual activity: Not CurrentlyOther Topics Concern Not on fileSocial History Narrative Not on fileSocial Determinants of HealthFinancial Resource Strain: Difficulty of Paying Living Expenses:Food Insecurity: Worried About Running Out of Food in the Last Year: Ran Out of Food in the Last Year:Transportation Needs: Lack of Transportation (Medical): Lack of Transportation (Non-Medical):Physical Activity: Days of Exercise per Week: Minutes of Exercise per Session:Stress: Feeling of Stress :Social Connections: Frequency of Communication with Friends and Family: Frequency of Social Gatherings with Friends and Family: Attends Sabianist Services: Active Member of Clubs or Organizations: Attends Club or Organization Meetings: Marital Status:Intimate Partner Violence: Fear of Current or Ex-Partner: Emotionally Abused: Physically Abused: Sexually Abused:Review of SystemsConstitutional: Negative for activity change, appetite change, chills,diaphoresis, fatigue and fever.HENT: Negative for sore throat.Eyes: Negative for visual disturbance.Respiratory: Positive for cough and shortness of breath. Negative for choking,chest tightness, wheezing and stridor.Cardiovascular: Positive for leg swelling. Negative for chest pain andpalpitations.Gastrointestinal: Negative for abdominal pain, constipation, diarrhea, nauseaand vomiting.Genitourinary: Negative for dysuria and hematuria.Musculoskeletal: Positive for arthralgias and joint swelling (left knee).Skin: Negative for rash and wound.Neurological: Positive for syncope. Negative for dizziness, light-headedness andheadaches.Temp: [97.5 F] 97.5 FHeart Rate: [73] 73Resp: [18] 18BP: (177)/(101) 177/101Physical ExamVitals reviewed.Constitutional: General: He is not in acute distress. Appearance: He is well-developed and well-nourished. He is not diaphoretic.HENT: Head: Normocephalic and atraumatic. Mouth/Throat: Mouth: Oropharynx is clear and moist. Comments: Very HOHEyes: Extraocular Movements: EOM normal. Conjunctiva/sclera: Right eye: Right conjunctiva is not injected. Left eye: Left conjunctiva is not injected. Pupils: Pupils are equal, round, and reactive to light.Neck: Vascular: No JVD.Cardiovascular: Rate and Rhythm: Normal rate.Peripheral Edema: lower extremity edema.Pulmonary: Effort: Pulmonary effort is normal. No respiratory distress. Breath sounds: Normal breath sounds. No stridor. No wheezing, rhonchi orrales.Abdominal: General: Bowel sounds are normal. There is no distension. Palpations: Abdomen is soft. Tenderness: There is no abdominal tenderness.Skin: General: Skin is warm and dry.Neurological: Mental Status: He is alert. Comments: Oriented to person only, not oriented to time or place.Psychiatric: Comments: Tangential thoughts, poor insight, poor judgementLabs, Imaging and Other Diagnostic Tests:Diagnostic test reviewed for today's visit include: Old Records Reviewed, Labsand X-ray.Signature: SHEILA Polanco-MARILYNDate: January 11, 2021Time: 3:38 AM Name Value Range Interpretation Code Description Data Alma rce(s) Supporting Document(s) ID Date Data Source [id number] 01/11/2021 06:54:08 PM EDT [facility] Name Value Range Interpretation Code Description Data Alma rce(s) Supporting Document(s) POC NOVA GLU 169 mg/dL (70-99) [facility] PERFORMED BY [facility] CLINICAL STAFF ID Date Data Source [id number] 01/11/2021 04:48:33 PM EDT [facility] Name Value Range Interpretation Code Description Data Alma rce(s) Supporting Document(s) D-DIMER,SENSITIVE 0.28 mg/L (<0.50) [facility] ID Date Data Source [id number] 01/11/2021 09:44:00 AM EDT [facility] [address] [place] [address] PHONE: [phone] FAX: [phone] Name .................. : HAYLEE Forrester Acct Number.................. : [id number] ROOM. ................. : 101-1 MR Number ................... : [id number] Stay type ............. : I/P Discharge Date......... ... : 01/10/21 Admit Date ......... : 01/10/21 Admit Phys .................... : J LUIS VIDA Date of ....... : 1945 Family Phys ................... : J LUIS VIDA Phone .................. : [phone] Age ................................ : 75 Film# .................. .:[id number] Sex ................................. : M Unsigned transcriptions are preliminary reports and do not represent a medical or legal document CT CTA CHEST NON-CORONARY W C [id number] COMPLETE:01/10/21 19:19 TAYO [id number] Reason for Exam: PE CTA OF THE CHEST WITH CONTRAST: INDICATION: Pulmonary embolism. FINDINGS: The visualized portions of the thoracic inlet appear unremarkable. No enlarged mediastinal or axillary lymph nodes are identified. There is a prominent lymph node in the right hilum measuring approximately 1.5 cm. There is lack of enhancement identified in the bilateral lower lobe pulmonary arteries as well as at the lingular vascular supply. Underlying emboli are not completely excluded. No large emboli are identified. No evidence of right ventricular strain is identified. The visualized portions of the upper abdomen show no acute findings. The evaluation of the lung roberts is limited by motion artifact. There is suspicion for a nodule versus atelectasis at the very superior aspect of the right lower lobe on image 45 measuring approximately 8 mm. This should be followed up in 3 months to ensure resolution. Pulmonary venous hypertension is identified. No definite pleural effusions are identified. The osseous structures show severe degenerative changes. IMPRESSION: Examination reveals filling defects in the bilateral lower lobe vasculature as well as in the vasculature to the lingula. These may represent artifacts, however underlying emboli are not completely excluded. No evidence of right ventricular strain is identified. The vasculature shows pulmonary venous hypertension. No overt failure is identified. No pleural effusions are identified. There is a nodule at the very superior aspect of the right lower lobe measuring approximately 8 mm. This could represent atelectasis, however a 3 month follow up to ensure resolution is recommended. While performing the above CT examination, radiation dose reduction was accomplished utilizing automated exposure control, adjusting of the mA and kV based on the patient's body size and/or the use of imperative reconstructive techniques. Page 1 of [address] [place] [address] PHONE: [phone] FAX: [phone] Name .................. : HAYLEE Forrester Acct Number.................. : [id number] ROOM. ................. : 101-1 MR Number ................... : [id number] Stay type ............. : I/P Discharge Date......... ... : 01/10/21 Admit Date ......... : 01/10/21 Admit Phys .................... : J LUIS VIDA Date of ....... : 1945 Family Phys ................... : J LUIS VIDA Phone .................. : [phone] Age ................................ : 75 Film# .................. .:[id number] Sex ................................. : M Unsigned transcriptions are preliminary reports and do not represent a medical or legal document CT CTA CHEST NON-CORONARY W C 63929 COMPLETE:01/10/21 19:19 TAYO [id number] Reason for Exam: PE CT dose: 820.7 mGycm Contrast agent in mL: 75 Isovue 370 Method of administration: Intravenous Examination dictated by KEENA Gao. Examination was reviewed with Richie Coe MD, radiologist at the time of this dictation. _ Electronically Reviewed and Signed By Richie Coe MD , 01/11/21 09:44, AML Transcribe Initials: DZ , Transcribe Date: 01/11/21 04:30, Dictation Date: Copy for: 710 MED REC DISCHARGED Page 2 of 2 Name Value Range Interpretation Code Description Data Alma rce(s) Supporting Document(s) ID Date Data Source [id number] 01/11/2021 09:43:00 [place] [address] PHONE: [phone] FAX: [phone] Name .................. : HAYLEE Forrester Acct Number.................. : [id number] ROOM. ................. : 101-1 MR Number ................... : [id number] Stay type ............. : I/P Discharge Date......... ... : 01/10/21 Admit Date ......... : 01/10/21 Admit Phys .................... : J LUIS VIDA Date of ....... : 1945 Family Phys ................... : J LUIS VIDA Phone .................. : [phone] Age ................................ : 75 Film# .................. .:[id number] Sex ................................. : M Unsigned transcriptions are preliminary reports and do not represent a medical or legal document CT ABD & PELVIS W/ [place] ONLY 30013 COMPLETE:01/10/21 19:19 TAYO [id number] Reason for Exam: DIVERTICULITIS CT SCAN OF THE ABDOMEN AND PELVIS WITH CONTRAST: INDICATION: Diverticulitis. FINDINGS: The lung bases show pulmonary venous hypertension. No definite pleural effusion is identified. The heart appears prominent in size. The liver, gallbladder, spleen, pancreas and bilateral adrenal glands appear unremarkable. Tiny hypodensities are identified at the upper pole of the right kidney. These measure approximately 5 mm in size. These probably represent cysts, but are too small to accurately characterize. The left kidney appears unremarkable. No hydronephrosis or nephrolithiasis is identified bilaterally. The appendix is not distinctly visualized. No secondary signs of appendicitis are identified. Diffuse diverticulosis is identified. There is suspicion for mild inflammatory changes at the sigmoid colon. Findings suggest possible mild underlying diverticulitis. No free fluid is identified. The urinary bladder appears unremarkable. Atherosclerotic disease is identified in the aorta and il iac arteries. Diffuse osteopenia and degenerative changes are present. IMPRESSION: Suspicion for mild diverticulitis. Clinical correlation is recommended. Appendix is not distinctly visualized. No free fluid. Tiny hypodensities in the right kidney probably represent cysts. The largest measures 5 mm. While performing the above CT examination, radiation dose reduction was accomplished utilizing automated exposure control, adjusting of the mA and kV based on the patient's body size and/or the use of imperative reconstructive techniques. CT dose: 1344.8 mGycm Contrast agent in mL: 75 Isovue 370 Page 1 of 2 [facility] [address] [place] [address] PHONE: [phone] FAX: [phone] Name .................. : HAYLEE Forrester Acct Number.................. : [id number] ROOM. ................. : 101-1 MR Number ................... : [id number] Stay type ............. : I/P Discharge Date......... ... : 01/10/21 Admit Date ......... : 01/10/21 Admit Phys .................... : J LUIS VIDA Date of ....... : 1945 Family Phys ................... : J LUIS VIDA Phone .................. : [phone] Age ................................ : 75 Film# .................. .:[id number] Sex ................................. : M Unsigned transcriptions are preliminary reports and do not represent a medical or legal document CT ABD & PELVIS W/ [place] ONLY [id number] COMPLETE:01/10/21 19:19 TAYO [id number] Reason for Exam: DIVERTICULITIS Method of administration: Intravenous Examination dictated by KEENA Gao. Examination was reviewed with Richie Coe MD, radiologist at the time of this dictation. Electronically Reviewed and Signed By Richie Coe MD , 01/11/21 09:43, AML Transcribe Initials: CLARK , Transcribe Date: 01/11/21 04:10, Dictation Date: Copy for: 710 MED REC DISCHARGED Page 2 of 2 Name Value Range Interpretation Code Description Data Alma rce(s) Supporting Document(s) ID Date Data Source [id number] 01/11/2021 09:19:06 AM EDT [facility] Name Value Range Interpretation Code Description Data Alma rce(s) Supporting Document(s) &PDF [facility] NKXPRi9aWoBBOzMh53/VSQtqRPXsg9JsIZgnPNp7CPpgEZGnH0EpvBlmYFUUZMCQDHXKP27xUW2WBOUX 0b3 [file] ICAgICAgICAgICAgICAgICAgICAgICAgICAgICAgICAgICAgICAgICAgICAgICAgICAgICAgICAgICAg ICAgICAgICAgICAgICAgICAgICAgICAgDQogICAgICAgICAgICAgICAgICAgICAgICAgICAgICAgICAg ICAgICAgICAgICAgICAgICAgICAgICAgICAgICAgIC AgICAgICAgICAgICAgICAgICAgICAgICAgICAgICAgICAgDQogICAgICAgICAgICAgICAgICAgICAgIC AgICAgICAgICAgICAgICAgICAgICAgICAgICAgICAgICAgICAgICAgICAgICAgICAgICAgICAgICAgIC AgICAgICAgICAgICAgICAgDQogICAgICAgICAgICAg ICAgICAgICAgICAgICAgICAgICAgICAgICAgICAgICAgICAgICAgICAgICAgICAgICAgICAgICAgICAg ICAgICAgICAgICAgICAgICAgICAgICAgICAgDQogICAgICAgICAgICAgICAgICAgICAgICAgICAgICAg ICAgICAgICAgICAgICAgICAgICAgICAgICAgICAgIC AgICAgICAgICAgICAgICAgICAgICAgICAgICAgICAgICAgICAgDQogICAgICAgICAgICAgICAgICAgIC AgICAgICAgICAgICAgICAgICAgICAgICAgICAgICAgICAgICAgICAgICAgICAgICAgICAgICAgICAgIC AgICAgICAgICAgICAgICAgICAgDQogICAgICAgICAg ICAgICAgICAgICAgICAgICAgICAgICAgICAgICAgICAgICAgICAgICAgICAgICAgICAgICAgICAgICAg ICAgICAgICAgICAgICAgICAgICAgICAgICAgICAgDQogICAgICAgICAgICAgICAgICAgICAgICAgICAg ICAgICAgICAgICAgICAgICAgICAgICAgICAgICAgIC AgICAgICAgICAgICAgICAgICAgICAgICAgICAgICAgICAgICAgICAgDQogICAgICAgICAgICAgICAgIC AgICAgICAgICAgICAgICAgICAgICAgICAgICAgICAgICAgICAgICAgICAgICAgICAgICAgICAgICAgIC AgICAgICAgICAgICAgICAgICAgICAgDQogICAgICAg ICAgICAgICAgICAgICAgICAgICAgICAgICAgICAgICAgICAgICAgICAgICAgICAgICAgICAgICAgICAg FLBfFPKvKDMcESYrGGDvOANkVLHaQNTtUPLhQSTjCPFbQWc7G3npFTHlUPCrSV9nHXp4Bi0+DQoNCmVu APQ1reRmdI0LSY6nj7IbJSxtWMYef7WiZBu3YX7HVR BmFCwfBA0MZYukoh3YFZWhDBYiyDIHf6hxWjKfFHK3FFIeQmuiNU3XRKEhC9vqdkXnTNQwMNQWHPfsLD COBRbdGDLRKA6EJeAyZ1DulS43QHVDTq1+FLqfdgWtYqtKUwPcCYFwe2UqIHa5LE1FIUJiGKyiIK0RIE MuwV0tGAloSA1CKvM1QFFkUMXDOlEbM23qrZVwTHm4 Z2OpPvKdGEPlExixILMfJHufCtTaJCObLyIaJRxnWY2+ID4+BFnbUW4GHAiuccMvPFLwAj0VSNZeBJJ9 UWWexVRcFOUfOORWHVbiDV6UyKIoEWH8rR4jHKalYABuYXFzU2bVVnPfpVgeOC81yKlicnOwuVXmHSg+ Et4JUV0ek0JbZOk0xjSzYYquVWMuYYggKOGvOGZjYU McKGO5MMO3LNRAXwSwIBQoUGMpLIqbQMYvDXGrai4OYKPmLVK2GczjZCPcMMZtLORfLGyqNZGkERT4RF U1DXMzVOFxDP4PRlXcMVWeEMIjNRRuXHDwIAJrta0VGSHhKGFbQbM0NxGyQKPfFHIkMJxoWMGcKHUbFd dsHXZdGFRpET9IQnXbNYUwSZR3XBCaCCHyQELstd2Y MWFjDRJrVMmxFCFfNRZxNUWoBMfrNKYbHEN8JxQuBKMeKEFeFL6SUqSqJIAsVRW0PyGbFMSaLAImoj6B GQByYQRwPty5HnKbSJXnLKOoCKpaQPWqKOV1NBzsLUMdSEKzTA7LTrEeJMBgDUytMeDsGBJdVAMrgz6Q PDNoZWIfCZBtSFFyRXDnIHUlGGheMEWhKAY1WJX4YL QwKURmPX5MQjYmJPRrAFm8BsNfAPDbXVTkig6OAAQvMGHbLRC9OXHrZREtAHSaWLmrDZCgYPY2Lno1GC TfZDLlIC8UUxTrYOVyZGOuFOIwOTWoHWJsse4HPTSjMENsSUR7JCSnHVZaZOAmIAxhYIHbJXQ5Hpu4XQ BxPLWnEQ9NGcYuSWLbXOVvIegsLRKzAZZexh2VLKWi GCMfYfSeICHcPTTfOTXzOAlgBYByVQO3Fat7QEOeRZMiBQ8SEfHoKNAcQxG2RLAyVGAeDBFuxu8EQPHp VMOkLlElZJDdSTGaWFJeCXrbXBChDJC9MqH7RUYzRDPtVK8QKkOcDXZsPmDsTQyfGTEuAREueh1HWZXj VYBcPRU3WQExGYWtRSTnQGhkBEYzBFA4MgH7RYLgXW DzEY6GOdBxJFNkQZH0XKVvJTFcZUTiol7TICEtNJZ7Mgt7DuCwXDVpUGFeEYomXDDvQVL3LWC6EQSqBI ZwCG3HAqNaTXOzMMF0YTxoVIAfGGYmqa5GHBQdHKG4AMo3POKzUYCcKHCiKKgkQLDkRZA4RbC1BLZgZZ HqQJ9VUsEoBDCpWmF9DtVlYFWyJSBuxq1GZDAnKXH1 QGzeDiHoVFGhBJTgPBcyTXHlOLZ6EBXcHYWzAPRjCX5BMqTbAOJzRls8SZXeAPHeHSMbbc8XHYZtPXI7 EEE0EyHmHYEuVFNuRPvaHPSsCVL9NDT6EMIpXWThGK8MEyKnRRrmIQGYUjg1LOqyN7s6YJL8Hi0MY4Ew x7UaDJFfCWZJEGrdYB6grwTqTOUjUb1GG1wIQmzqQB O0SjO4AZMnRhkbCnK6JDinEOZ6DAsfPJNtM5H3GS4aJMB1QHB4SRo1G9R3LRPqXdmgQdG0LIr3WDZ6LX I3ECk8ZvDlIK3NFl8KZgA4HTI1aXSjIe0GGuMsMcVQJzEbMM8JMRc= ID Date Data Source [id number] 01/11/2021 09:26:41 AM EDT [facility] Name Value Range Interpretation Code Description Data Alma rce(s) Supporting Document(s) EKG [facility] JDKRZx5eUjHYOdVct8VcHfLvNVZqAV7lvxo1A8S8hMPlM7XiwXDfo0gdU5SbH2UhYODpUHQNBX1UdTZm jb2 [file] kSAhIK2ffhweUzjElBWylu8K5b7nYHnR1H9zY1tv+SauSw5SD4IstFG+VznoyCnxfy2K3iq9cHrYe+W[employer] Plant Operator +T2N2U7BAMpMtMvkBxnA/cfbJ2t9VEosPnReWJILuC x3UcKOFRhk08Hfvdq8FCScx21V0lrrilI+yjjGSJ98IIvq+pClktDevFpC7kI0Uib5NlIXZjO+c86o9p 98FiU1uzJHMh6Su6Z211ib64GYp+IGriw+agmfekf7PgdrCW4Bm66Pm+8KWG/cdx4b/94aF7zWkUqmKS TL9YemoLlsWMY4S56/RPGx5F+7L60bu1UKhO4IB2zf 3/kK/xIM6aODQH2eDvlikeVDvCNfMPmUcFtCLihMR4D7CV6f1HYg1nnyi/F4KlbXGa6wHbaAASnhGvcL jw2vexTUhu8lRTO7tzFX9Cg3PPQP8icfDi+ooZaKDBadmcjObjQl8tXt96f3xaOqTJJccpJbTtRKJQBm jOvh3bu+WlGx8WGw5BzZ1kH/emo94smdFUOGR3HS3a p8nK2RJ2m336kAf84UqhLrBn3z2n2lwLEmOK57w11dOH5BqDoXx9Zl2LQ9n702IH1/0dEzNJ12tpiU/r vkdBP157F1sI1vpVz4gJh78bO/RKh8yMXv60HC9+Tb2AOYdyWW5aVmEi/CeIb2laM24RfZIGIN3xF54u 4wkn383bJL1LF2NJcwLh1Auras6VeHHHiYgTI/vsfi M0h0Y3caB0M5wJ/fGPco9ehAgZPB9hSzs4HvVIIbHSCnOomfr7s/8hX8+dCKjyVdbcXHkhCv+FjuVB07 0P9KzDpiND4XoSq4KPHIP4i+bwDxA9rRWoBPg1Rd5A2PZUgiuN0UjVWYLU2ScCxIrBDDGglp3ZRnUg8N E+fako/lCdTgbF/czvTRZu2u1pN5dfpURianl5JhC5 vVwBcn+RhiUJ8MhT/pnk9kK9odzAQkrhcO5jMvcUCM8EtdK2xZLl/I9vG0vldbXsjuo60cuzOTQZ4KMq vtkvsnF8hM/larY3fOpFsJ8S4VsXs0ui8dOrllAx/DMWIOhBZ8GZ4sa6TIpr/QxMdSAjXwzRMfyxMU/2 ObuHqv4KtzLn2QqNqTk3YKCKyxLUfw4b2GwJezdGa5 Z2qmvpgjdY2BKh/Ue6vXbUIax2dtqCZRF0eNOVe9SF7EYjQ8WId1EV5Y85n2+Pfhp9IEoTY3+FhK2C+q iMx6CIermLlhGk8r8v+7OUjbHVU4Eg8F47B6+WbrTCn4NJ4CfryBElqWjT1mJ2jJT4Y5+Tmxvuo1KOQI rgj1DH3W8+FjyW/j//6P//Ssj7ML1Zj4+q//88//+K //+p///Ov//vOf//qPk/9zN/3n//3HOeLyc/x3k3BZlLC1K291L/4tZ80fzQx/5frV5dvfCtSHu6u20y mbG1QiyhJ3ouojk4++Yk/3hVeLxbC3sp0g/ok8B9up/EJ+oHyg/V87PuRmJM/IuGTrHbOoyzyZ4brHG8 ytI7/X/XTkIz5qZrUXxZls6nrnddrCt/F+om7jx5Q+ UD7Q/kY+7u/PLrz3/OhDszUEr179Ddum/m+8Fk3pX/48UQd+FuHL/708lpgTS0qW/e9e/iooj1QkaIbv TtVE0buT/mO8PdD+znV+0r/+dSRYorH4K67952bpMrfQ9JCt7NWgyY+QP5D/G68lc+pvvKbAMD+775WZ UJ5CpndpiJ+0E8g/775C1h06/sG6czL8EPj/KmMo36 v1ievgJe5crfLb77H+Ix/t3In82Pi2TfZNaUjYvaRhyCKQAlrT/F3tzK/b7ysh4bKAfUetxQYiCHb20q /eU4Pqp8Fk2H/ktr6fYn/W/JzIP+GHjhpSi9HscBb+iRen7gL1rG7D3aVW36ic6f+wWvi9722x9Z/xfg r+8rPgfqGElPZ/zmmJ/z5x5v/5hapW+i9/9RuI/Z8f ZYfSf/lTgWd+ttuZgJP+5W+NFi51mo/y001eco+34Wc5Xhuei/SM/3b777m/6q33Qkong/3RjEe0T1zh 24CBc8q29mNqBxF70353/bSj/I783/291xpeZfzkZ/pLtpEx0IumHFu5imyx8R2y7oM/5wzCSXulf/f3 30yrclbwdeG6Oh1g0tecoRLs21mc1M0+jLOX/o33y/ OJRfVk7k5i4aYgKZ/80S2yQGPeuczehl901/fns9qqAcF+4WOta7sf/72RX+/vs7ju5rz98Ws0uh13wY zzZyln+2das/1cOWUqS3mMaO+M44cceOux/WNmLvIS0kj77X70Tv2PEdy/a809vjKN18gDiub3b3/lJv xukBrh7EyY42RdY9/ZPQTplXbkO/Cq1jnqIIu/Ib++ v+zJoHaI0A58ku2YvF/p6r/zX9g7j1at8DryxrVJz0652627m48bch/o7fWAQy8NNOhj/Uv5zzJ31i1z 1dExqppcSZ0gweiHP+lu9FX7/fn9GY3jMQA0Qj853cFinT9eX0nsue1q30Yr4z2TaClx29Wjm+yrkV4u H9K//UkcS7f4PfrHedggC06lxe46j+co3kqntmmI5v 437R8N3k0T+2e88+94Rz74wUWr9jpgiPqrO1cQ1E/0c1f+sa+y/WNfZRmv/5QfqPUxk9//hXOE4+VjPX oXbt7sveQoR33hVG24Fbc63//IWckz76eD/EqPfzz95MmB9//LL0aUorVu/laVqK07IppSH1K1qU+8n2 yr90fpjzsJ55QkH5C1KpH0zsTa9YHangbC4Wmhl+r9 P+p15ENzKJypt3g+5Lzhkdkd4EbSb8p/PgnZUnwMA73Tdwr+CP9QkcB9Y39zoA/WRPn6/r8GPso7ndBK ImBz9nPgCzT4XIiKNSWg40p/opq55tJRWe/fwHij/o/OHVc6Hyoz5Uy/MZGP72/gqpQ9BtXxJS0KkKR+ V/ld/7/a0NTzl9UZ3MgzXy9kxQqkji/RDr6/e6A8xr fwdcse31jXiq54tjkgy3wWUriCFoAYeERKaISXcN+OWGT5/wBtie9VqZj9VJ89QixxsM1jEyLc0Q4j/b q/Pe0r5S+0U+SrU0D7iKi+96t/ZW90q/vbhV+kb7OvLGHKZ3G2cdF2sv103DdxJ+FDb5Q15yf1Q2/qwq /O+5eilA476jzcF/ZGt0B+oPx+478p4D7qiM+50n6/ CC14PqIbxKF8Aye4fD2jA/NLy635bJ6oTFo4JG/JfDVq9yFwVq31CFfXcxesM/qtd89NLttPhUl60WTz ZbohvyG/8Lou+9lwr3i8uGzZ50albJ49cIiOB2hf13sQ8+esqNlukws78EtVfCN61r18M1D+d924qlxd +eoLfI0aM/0v9FH/U8416Lmep+IYeZ2OdzER8xnqwU ei/ET5+h71Ud/qYsA3Lu/K8hvl6/zwas7Nx/ArlXFDviG/3FbjNc66at27kJ+1F5Ox2I2M269qZ+1gvI 7xCr+nmo2cO5W+ago4XorLpP9hBA/rI5C8R4/ps76/xYO6q18/feL+QupO8mXKmGG1mE3JhwX/GO/Augustine 35KhX3EkknE/SJ79HC+0h4wV3X7g44fC0LOZ+pfdhX ZaRBWpig8Vqkb+/TxeIg0gNeaO+cowyJ+HnGLH1Bg1a3O34S4yt1y63hjij7bO7zlw2die8g/KgPf+mf kkFeZWX6I27z/ukAO8nZxU/ep0sGicx7YsP+0GVrmD9jH2oEpx127G1C3e/bruumm25dP4Do9/72UPqX b0qf+/gc8ec5lO/u78Hc+i68rgu/9lsVn9vSS/hVps 49J2d97c89IrsG22XrmG3Mqzd0uD74HEA+Ga/unfCrLL+Hh9vsTI/p3u1A/b137eB4ta/wjfEVHntOJu T3ccb5oj+++g54djMlKX6++j57hmSmAh/5uvu8t1pgT5u106phru/V419V1wc/1VdCiX1b/bLxBdrfuO 6fpG0Uao4v//1h9b8/ZF9l/hmv+qn2UzA6ZMq9GGCJ aGdU/k7fPDnF2aXQ/ozwIY9E/hlvpvW/rzKBdjbKC9/4rbch+2fpMY5v/wztGii7YT0lghF4vvW1ps+a sauOo4N3rO7t+yrTE/kT7Z/pvnydgWF7JY+D8bjzOR56bnoZyjcgs0fmMdeB+V82UhucuBxkqfbgmQld 6/7G+9LIP+OLnqUeJ5K/jbefZ/+bE8s62dtfz+Pt59 k/Zwl+T9CF2cne5o7sL0Gd8Rv/v4+D4tukHt198h6PC5X/okqYdN0PDbAjd4e5km4ZV7dD7n47i/I3ym O8x77K/ja0Qjob++hjr14tC573Ru6l3UtH70HnJ3/dMri/wvkiAvLrVI9nhTxk2QV+eiAf9/cJF0r5Ct kHroK1G/wqlI/6SFTtK7llhJpmDp+l30AH3cMjw12y ke/In/V8Cb/I7EcghaN4kJt+N11abqv5Gnv5M7fcqNS9Tdogoz2OboP+Grh2Qf38q0ZFGo2Vu7OO2/Oa 9P1tixdsTmDsvEP+/Q8e9//7oLyu3jC/7/H9v/gZ66NZe3M5uBcc9S6Tkn+P1//Lx/np0U4VPjFC+B4d ++f2A3Qe239MQV/IkaPPc4H/5W+Ux/1dxN2iG/+Xtm pnG/SlkUK4AoAo3q9jTVmz1BibriNr8K/GK/wq0/j+bnx/L7s3I71gV/e518gNm3M//Wn67SEdjug+1X j03Ey73SEfh1kZ+lWpy148CCUjZUv3oHPm7uqWu2jmKexj/yL10yrvwmT6bgWo0w647s678Gi5erF+il tDfkd+R/6o68K+cnPk1/8U97G0Q+UXyi/jW7tawAwc KX9X+Yb72+j45e5kV67eWEcA/MI7py3OWipawuA/kD+Z22p340641QaT1gjjz9xZwe+87nZ1sTeKi83S /DPxUNEDWNk2xwnl/si+uunqT+8oj/H0vj14e+fXuyO/nl+XfXXTKF/Pr/j2H3n5K8+47kMCjt19i+Cj /Rv8AN8lk/bLfBjKn/Ge/w4f9X/koyO/9stc+4PZ/k A7tR/wz81HPczem/WM/UEfC/6Fcj7YgV3qtX/hSxq39r4ik6z//9toljz7S/8xRbkn3d70Lpk2C+jaH8 bvAp0q5naidO/6kPsFyeZA0hQl4c8zz8G/G+7ImzyM0d/wWf+/wf3Bu62FAJtYS8WooE5GA5jrc6Drvf N82v3TN1w4YouJ77H+oM+B8jI8slCh5YH9bV49smcl /MqBX/lqKI/jjr88qLuHtSNwstEr7YK+a21We1MQ6p/5Bj1GX6F5e+yrbB/aOuLv7ariBJ+QBwvp0zr/ Roland/a7/bAeLU/eLAUh/+Vy/3Jid6FT5eaBEr9kKxRm/uRGZ9sd50mf9/n6vDtjrb7+CckAoF8c+mdGcff mMa93369/N9c/ld6Vwu/Uh+0P3j+t0x5x6t1y2/Sd+ Dupjle4GqWn4+mc46o4smtXhi9TdmBna+QyyiEnto9b67v+KTSB5/U+//YVzf/+ZppQIiKjH05cJcUHQ f4zD++8Ok/thyx8a1D2B9+zbeWn557V70/tbk9mtt9S07l/HYjvwmy9qQ8ceO+5md+5S86v/KPnV/h7f Mr/8mZ+4MeyQE4I+dX/gwT+BK3he3iTi9wVly1bmd/ 9hk4tsOcGt+hfEc7/S15LqzpK/zbp+yrrOvoT/eoZMq5I+xLQoceQ2jc2K1MxOKc+LdP+LfPZsgvfHI2 dTc0qgI6m5KvuY5rnERuLP/B5whb9bQtPV2fcO+hP+QrLtkG9aolNjt8tv379sct3X+cumfP4zw+nr3+ F2av/6Mp+yrbHF+UZapagt33qG410exCZ54AGsWgI0 XR/6KlWsrW5kecz4JjvsE+MV1gf4D3IGhPv2JKByoCN80ur9N2dRN5atQ8heewvF6x20D+fkij/EJ+2c 3zpI15S5T5Gi4o5q04tfVAb8cE/Yj03Shj+sqbM9cgsLoiiRf79eZD4aMzfW/8qivtlRY+gYTF0GE0tq 4zqbV2jkghd3HAH/qQ80Z7R/4mGTEYrJ60P515595e IH/Vrny9sk7u/f/OOVG+3CD4g04mq/7E8bzwZ1127T8cEFKD/uMk4x96K/5zeITvpuVq78gnkMfiI/Lx dx71T911880F37t35t2OZi7UppKa54gA65Ept5KOuIP/CzNqf3/CvppR+/qW1oAR2roW0bMPI51JL8XB zih/uRaO8duPm6/djInyC+AyPR3MEVzTZwoZAF/Cue v/sA7Ld4m+9qmsekW9/R/NjfHujvyO/HW3sCoR+135cywP27Ur+7vx/u74pjea7hx/u76/6yt/4PXVeB t5A0aR91p52m3y2W9c7T1bJ1v7Bc+C/9B2NBd31wP0OnzArL/Nt5SkabRI/U8eqw4eNu6xMi+rZfV/tK j35pt40kh218w3x1y68d2b/3el/2NbEmFa0ZP/3bKJ [file] vISsKuwqFAXxIIGZBDQCX4H= ID Date Data Source [id number] 01/11/2021 05:27:24 AM EDT [facility] Name Value Range Interpretation Code Description Data Alma rce(s) Supporting Document(s) TROPONIN I <0.05 ng/mL (<0.05) [facility] [place] Less than 0.05: Myocardial injury unlike lyGreater than or equal to 0.05: Highly suggestive of myocardial injuryCorrelation with rise and/or fall ofserial troponins, clinical symptomsand ECG changes is necessary. ID Date Data Source [id number] 01/11/2021 05:27:24 AM EDT [facility] Name Value Range Interpretation Code Description Data Alma rce(s) Supporting Document(s) SODIUM 132 mmol/L (136-145) L [facility] POTASSIUM 4.3 mmol/L (3.6-5.2) [facility] CHLORIDE 99 mmol/L (100-108) L [facility] CO2 25 mmol/L (22-31) [facility] ANION GAP 8 mmol/L (7-16) [facility] UREA NITROGEN 22 mg/dL (7-24) [facility] CREATININE 0.69 mg/dL (0.80-1.30) L [facility] BUN/CREAT RATIO 31.9 RATIO (10.0-20.0) H [facility] GLUCOSE 187 mg/dL (70-99) H [facility] CALCIUM 8.6 mg/dL (8.4-10.2) [facility] GFR >60 ml/min/1.73m2 (>59) [facility] GFR ( AMER) >60 ml/min/1.73m2 (>59) [facility] GFR INTERPRETATION [facility] --NORMAL KIDNEY FUNCTION OR MILD DISEASE - GFR >OR= 60CHRONIC KIDNEY DISEASE - GFR 15 - 59RENAL FAILURE - GFR <15 Est. GFR calculation based on the MDRDstudy equation, which assumes a steadystate for creatinine. Est. GFR should notbe used for medication dosing. ID Date Data Source [id number] 01/11/2021 04:47:31 AM EDT [facility] Name Value Range Interpretation Code Description Data Alma rce(s) Supporting Document(s) WBC 8.0 10*3/uL (4.1-11.0) [facility] [place] RBC 4.81 10*6/uL (4.60-6.10) [facility] HGB 14.2 g/dL (13.5-18.0) [facility] HCT 42.4 % (41.0-53.0) [facility] MCV 88.2 fL (80.0-95.0) [facility] MCH 29.6 pg (27.0-32.0) [facility] MCHC 33.6 g/dL (32.0-36.0) [facility] RDW 14.2 % (10.5-14.5) [facility] PLT 246 10*3/uL (150-450) [facility] MPV 8.0 fL (7.1-10.7) [facility] ID Date Data Source [id number] 01/11/2021 01:00:00 AM EDT [facility] Name Value Range Interpretation Code Description Data Alma rce(s) Supporting Document(s) SARS coronavirus 2 RNA [Presence] in Res piratory specimen by GAVIN with probe detection NOT DETECTED [facility] This lab was reported by [facility]. ID Date Data Source [id number] 01/11/2021 02:32:39 AM EDT [facility] Name Value Range Interpretation Code Description Data Alma rce(s) Supporting Document(s) SPECIMEN DESCRIPTION [facility] INFLUENZA A (NEG) [facility] [place] INFLUENZA B (NEG) [facility] [place] RSV (NEG) [facility] COMMENT [facility] THE [place] FDA HAS MADE THIS TEST AVAILABL CHARMAINEER AN EMERGENCY USE AUTHORIZATION(EUA) FOR THE DETECTION AND/OR DIAGNOSISOF THE VIRUS THAT CAUSES COVID-19.PERFORMED AT [address] [facility] [place] [address] COVID19 RESULT (NDET) [facility] [place] THIS ASSAY AMPLIFIES AND DETECTSTHE TARG ET RNA USING REAL-TIME PCR.TESTING PERFORMED ON [employer] GENEXPERTNEGATIVE 2019_NCOV RT-PCR RESULTS DONOT PRECLUDE 2019_NCOV INFECTION ANDSHOULD NOT BE USED THE SOLE BASISFOR PATIENT MANAGEMENT DECISIONS. FIRST TEST [facility] EMPLOYED IN HLTHCARE [facility] [place] SYMPTOMATIC [facility] [place] [place] DATE OF SYMPT ONSET [facility] HOSPITALIZED [facility] ICU [facility] [place] CONGREGATE CARE SET [facility] ID Date Data Source [id number] 01/11/2021 02:04:09 AM EDT [facility] Name Value Range Interpretation Code Description Data Alma rce(s) Supporting Document(s) FREE THYROXINE @ 1.00 ng/dL (0.76-1.46) [facility] PERFORMED [place] [address] [place] [address] ID Date Data Source [id number] 01/11/2021 02:04:09 AM EDT [facility] Name Value Range Interpretation Code Description Data Alma rce(s) Supporting Document(s) TROPONIN I <0.05 ng/mL (<0.05) [facility] Less than 0.05: Myocardial injury unlike lyGreater than or equal to 0.05: Highly suggestive of myocardial injuryCorrelation with rise and/or fall ofserial troponins, clinical symptomsand ECG changes is necessary. ID Date Data Source [id number] 01/11/2021 02:04:09 AM EDT [facility] Name Value Range Interpretation Code Description Data Alma rce(s) Supporting Document(s) NT PRO BNP 198 pg/mL (0-125) H [facility] ID Date Data Source [id number] 01/11/2021 02:04:09 AM EDT [facility] Name Value Range Interpretation Code Description Data Alma rce(s) Supporting Document(s) TSH,ULTRASENSITIVE @ 0.574 mIU/L (0.360-4.170) [facility] PERFORMED AT [address] [place] [address] [place] [address] ID Date Data Source [id number] 01/11/2021 02:04:09 AM EDT [facility] Name Value Range Interpretation Code Description Data Alma rce(s) Supporting Document(s) SODIUM 130 mmol/L (136-145) L [facility] POTASSIUM 4.0 mmol/L (3.6-5.2) [facility] CHLORIDE 99 mmol/L (100-108) L [facility] CO2 25 mmol/L (22-31) [facility] ANION GAP 6 mmol/L (7-16) L [facility] UREA NITROGEN 22 mg/dL (7-24) [facility] CREATININE 0.74 mg/dL (0.80-1.30) L [facility] BUN/CREAT RATIO 29.7 RATIO (10.0-20.0) H [facility] GLUCOSE 196 mg/dL (70-99) H [facility] CALCIUM 8.7 mg/dL (8.4-10.2) [facility] TOTAL PROTEIN 6.8 g/dL (6.4-8.2) [facility] ALBUMIN 3.1 g/dL (3.2-4.5) L [facility] GLOBULIN 3.7 g/dL (2.7-4.3) [facility] ALB/GLOB RATIO 0.8 RATIO [facility] ALKALINE PHOSPHATASE 119 U/L (45-117) H [facility] BILIRUBIN,TOTAL 0.4 mg/dL (0.0-1.0) [facility] PLEASE NOTE:Total bilirubin results may be falselyelevated in patients taking Eltrombopag. AST (SGOT) 7 U/L (11-39) L [facility] ALT (SGPT) 21 U/L (12-78) [facility] GFR >60 ml/min/1.73m2 (>59) [facility] GFR ( AMER) >60 ml/min/1.73m2 (>59) [facility] GFR INTERPRETATION [facility] --NORMAL KIDNEY FUNCTION OR MILD DISEASE - GFR >OR= 60CHRONIC KIDNEY DISEASE - GFR 15 - 59RENAL FAILURE - GFR <15 Est. GFR calculation based on the MDRDstudy equation, which assumes a steadystate for creatinine. Est. GFR should notbe used for medication dosing. ID Date Data Source [id number] 01/11/2021 02:03:29 AM EDT [facility] Name Value Range Interpretation Code Description Data Alma rce(s) Supporting Document(s) HEMOGLOBIN A1C @ 7.5 % (4.0-6.0) H [facility] [place] Performed using Siemens [place] immunoassa y.Care must be taken when interpreting TwX4dthxswer in patients with a hemoglobin variantor decreased erythrocyte lifespan. Values 5.7 - 6.4% suggest prediabetes.Values >=6.5% are diagnostic for diabetes.REFERENCE: DIABETES CARE 2018: 41(S13-S27).PERFORMED AT [address] [place] [address] EST AVERAGE GLUCOSE 169 mg/dL [facility] ID Date Data Source [id number] 01/11/2021 01:58:09 AM EDT [facility] Name Value Range Interpretation Code Description Data Alma rce(s) Supporting Document(s) MAGNESIUM 1.9 mg/dL (1.7-2.4) [facility] ID Date Data Source [id number] 01/11/2021 01:21:46 AM EDT [facility] Name Value Range Interpretation Code Description Data Alma rce(s) Supporting Document(s) WBC 8.4 10*3/uL (4.1-11.0) [facility] [place] RBC 4.90 10*6/uL (4.60-6.10) [facility] HGB 14.6 g/dL (13.5-18.0) [facility] HCT 42.9 % (41.0-53.0) [facility] MCV 87.6 fL (80.0-95.0) [facility] MCH 29.8 pg (27.0-32.0) [facility] MCHC 34.0 g/dL (32.0-36.0) [facility] RDW 13.9 % (10.5-14.5) [facility] PLT 267 10*3/uL (150-450) [facility] MPV 7.9 fL (7.1-10.7) [facility] NEUT % 78.8 % (35.0-75.0) H [facility] LYMPH % 15.0 % (16.0-52.0) L [facility] MONO % 5.5 % (0.0-8.0) [facility] EOS % 0.2 % (0.0-5.0) [facility] BASO % 0.5 % (0.0-4.0) [facility] NEUT # 6.6 10*3/uL (1.8-7.7) [facility] LYMPH # 1.3 10*3/uL (1.2-4.8) [facility] MONO # 0.5 10*3/uL (0.0-0.8) [facility] Eosinophils [#/volume] in Blood by Automated count 0.0 10*3/uL (0.0-0 .5) [facility] BASO # 0.0 10*3/uL (0.0-0.2) [facility] ID Date Data Source [id number] 01/10/2021 08:13:00 PM EDT [facility] [address] [place] [address] RESPIRATORY CARE REPORT ==== ---------NAME------- NUMBER SEX AGE ADMIT DISC. XRAY# F/C KHARI Forrester [id number] M 75 01/10/21 [id number] M4 I/P DATE OF : 1945 M/R# [id number] PH#: [phone] LOCATION: EMERGENCY DEPT EKG 34927 COMP LETE:01/10/21 06:27 ED [address] PHYSICIAN: J LUIS MCPHERSON Name Value Range Interpretation Code Description Data Alma rce(s) Supporting Document(s) ID Date Data Source [id number] 01/10/2021 10:09:00 [place] [address] PHONE: [phone] FAX: [phone] Name .................. : HAYLEE Forrester Acct Number.................. : [id number] ROOM. ................. : CCU2 Number ................... : [id number] Stay type ............. : O/P Discharge Date......... ... : Admit Date ......... : 01/08/21 Admit Phys .................... : J LUIS VIDA Date of ....... : 1945 Family Phys ................... : J LUIS VIDA Phone .................. : [phone] Age ................................ : 75 Film# .................. .:[id number] Sex ................................. : M Unsigned transcriptions are preliminary reports and do not represent a medical or legal document KNEE AP & LAT LT [id number] COMPLETE:01/08/21 18:46 ALEJANDRA [id number] Reason(s): Knee Injury LEFT KNEE X-RAY: INDICATION: Knee injury. FINDINGS: There is a moderate joint effusion. No fracture or dislocation is noted. There is mild degenerative change in the lateral compartment. A small sophia of metallic foreign body is noted laterally by the head of the fibula. IMPRESSION: No evidence of fracture or dislocation. Moderate joint effusion. Tiny metallic foreign body in the upper calf near the fibula head. Electronically Reviewed and Signed By Efren Cuellar M.D. , 01/10/21 10:09, INY Transcribe Initials: CLARK , Transcribe Date: 01/09/21 03:03, Dictation Date: Copy for: 002 [facility] Copy for: 710 [facility] REC Page 1 of 1 Name Value Range Interpretation Code Description Data Alma rce(s) Supporting Document(s) ID Date Data Source [id number] 01/10/2021 10:09:00 [place] [address] PHONE: [phone] FAX: [phone] Name .................. : HAYLEE Forrester Acct Number.................. : [id number] ROOM. ................. : CCU2 MR Number ................... : [id number] Stay type ............. : O/P Discharge Date......... ... : Admit Date ......... : 01/08/21 Admit Phys .................... : J LUIS VIDA Date of ....... : 1945 Family Phys ................... : J LUIS VIDA Phone .................. : [phone] Age ................................ : 75 Film# .................. .:[id number] Sex ................................. : M Unsigned transcriptions are preliminary reports and do not represent a medical or legal document CHEST PORTABLE [id number] COMPLETE:01/08/21 18:46 ALEJANDRA [id number] Reason(s): syncope PORTABLE CHEST X-RAY: INDICATION: Syncope. FINDINGS: The lungs are well-expanded with mild pulmonary vascular congestion. The cardiac silhouette is normal in size and contour. No acute osseous abnormality. IMPRESSION: Mild pulmonary vascular congestion. Electronically Reviewed and Signed By Efren Cuellar M.D. , 01/10/21 10:09, INY Transcribe Initials: CLARK , Transcribe Date: 01/09/21 03:01, Dictation Date: Copy for: [facility] Copy for: [facility] REC Page 1 of 1 Name Value Range Interpretation Code Description Data Alma rce(s) Supporting Document(s) ID Date Data Source [id number] 01/10/2021 10:07:00 AM EDT [facility] [address] [place] [address] PHONE: [phone] FAX: [phone] Name .................. : HAYLEE Forrester Acct Number.................. : [id number] ROOM. ................. : CCU2 Number ................... : [id number] Stay type ............. : O/P Discharge Date......... ... : Admit Date ......... : 01/08/21 Admit Phys .................... : J LUIS VIDA Date of ....... : 1945 Family Phys ................... : J LUIS VIDA Phone .................. : [phone] Age ................................ : 75 Film# .................. .:[id number] Sex ................................. : M Unsigned transcriptions are preliminary reports and do not represent a medical or legal document CT HEAD W/O CONTRAST [id number] COMPLETE:01/08/21 19:30 TAYO 20067 Reason(s): Syncope CT OF THE HEAD WITHOUT CONTRAST: INDICATION: Syncope. FINDINGS: The cortical sulci and ventricles are globally proportionate and prominent. There is hypoattenuation of the periventricular and deep white matter. No acute hemorrhage, infarct, mass effect or midline shift. There is no acute osseous abnormality. The paranasal sinuses and mastoid air cells are clear. The visualized orbits are unremarkable. IMPRESSION: 1. Moderate age related atrophy and chronic small vessel ischemic changes. 2. No acute intracranial abnormality. While performing the above CT examination, radiation dose reduction was accomplished utilizing automated exposure control, adjusting of the mA and kV based on the patient's body size and/or the use of imperative reconstructive techniques. CT dose: 341.4 mGycm Electronically Reviewed and Signed By Efren Cuellar M.D. , 01/10/21 10:07, INY Transcribe Initials: CLARK , Transcribe Date: 01/08/21 23:32, Dictation Date: Copy for: 002 [facility] Copy for: [facility] REC Page 1 of 1 Name Value Range Interpretation Code Description Data Alma rce(s) Supporting Document(s) ID Date Data Source [id number] 01/10/2021 09:58:00 [place] [address] PHONE: [phone] FAX: [phone] Name .................. : HAYLEE Forrester Acct Number.................. : [id number] ROOM. ................. : 101-1 MR Number ................... : [id number] Stay type ............. : O/P Discharge Date......... ... : Admit Date ......... : 01/08/21 Admit Phys .................... : J LUIS VIDA Date of ....... : 1945 Family Phys ................... : J LUIS VIDA Phone .................. : [phone] Age ................................ : 75 Film# .................. .:[id number] Sex ................................. : M Unsigned transcriptions are preliminary reports and do not represent a medical or legal document CAROTID [id number] COMPLETE:01/09/21 16:07 [facility] [id number] Reason for Exam: TIA CAROTID DOPPLER, 01/09/21: Prior examination: None available. FINDINGS: RIGHT CAROTID: Peak velocities are as follows: CCA: 105 cm/sec ICA SYSTOLIC: 40 cm/sec ICA/CCA SYSTOLIC RATIO: 0.38. Consistent with less than 50% stenosis. LEFT CAROTID: Peak velocities are as follows: CCA: 95cm/sec ICA SYSTOLIC: 59 cm/sec ICA/CCA SYSTOLIC RATIO: 0.61. Again, consistent with less than 50% stenosis. There is moderate plaque in the bilateral carotid bifurcations and internal carotid arteries. Although there is somewhat limited visualization to the left vertebral artery, there are bilateral stable arteries. IMPRESSION: No ultrasonographic evidence of hemodynamically significant stenosis. [address] [place] [address] [place] [address] PHONE: [phone] FAX: [phone] Name .................. : HAYLEE Forrester Acct Number.................. : [id number] ROOM. ................. : 101-1 MR Number ................... : [id number] Stay type ............. : O/P Discharge Date......... ... : Admit Date ......... : 01/08/21 Admit Phys .................... : J LUIS VIDA Date of ....... : 1945 Family Phys ................... : J LUIS VIDA Phone .................. : [phone] Age ................................ : 75 Film# .................. .:[id number] Sex ................................. : M Unsigned transcriptions are preliminary reports and do not represent a medical or legal document US CAROTID [id number] COMPLETE:01/09/21 16:07 KNB [id number] Reason for Exam: TIA Electronically Reviewed and Signed By Richie Coe MD , 01/10/21 09:58, AML Transcribe Initials: SSR, Transcribe Date: 01/10/21 09:24, Dictation Date: Copy for: 002 [facility] Copy for: 710 [facility] REC Page 2 of 2 Name Value Range Interpretation Code Description Data Alma rce(s) Supporting Document(s) ID Date Data Source [id number] 01/10/2021 09:52:00 [place] [address] PHONE: [phone] FAX: [phone] Name .................. : HAYLEE Forrester Acct Number.................. : [id number] ROOM. ................. : CCU2 MR Number ................... : [id number] Stay type ............. : O/P Discharge Date......... ... : Admit Date ......... : 01/08/21 Admit Phys .................... : J LUIS VIDA Date of ....... : 1945 Family Phys ................... : J LUIS VIDA Phone .................. : [phone] Age ................................ : 75 Film# .................. .:[id number] Sex ................................. : M Unsigned transcriptions are preliminary reports and do not represent a medical or legal document CT LOWER EXT LT W/O CONT [id number] COMPLETE:01/09/21 16:24 ALEJANDRA [id number] Reason for Exam: LEFT KNEE FOR EFFUSION NO CONTRAST CT SCAN OF THE LEFT KNEE WITHOUT CONTRAST: TECHNIQUE: Axial CT scanning of the left knee is obtained without the use of intravenous contrast. Computer reformatted sagittal and coronal images are generated. COMPARISON: None available. FINDINGS: There is no acute fracture or dislocation. There are moderate degenerative changes best appreciated at the lateral tibiofemoral compartment with joint space narrowing and subchondral sclerosis. There are fairly extensive subchondral cysts noted in the medial tibial plateau. There is evidence of chondrocalcinosis. There is lateral tracking of the patella, but no actual dislocation. There is a small joint effusion. IMPRESSION: Degenerative joint disease without acute fracture. While performing the above CT examination, radiation dose reduction was accomplished utilizing automated exposure control, adjusting of the mA and kV based on the patient's body size and/or the use of imperative reconstructive techniques. CT dose: 166 mGycm Electronically Reviewed and Signed By Richie Coe MD , 01/10/21 09:52, AML Transcribe Initials: CLARK , Transcribe Date: 01/10/21 04:11, Dictation Date: Copy for: J LUIS LUBIN via [employer] Copy for: EMERGENCY DEPT via modem Page 1 of 2 [facility] [address] [place] [address] PHONE: [phone] FAX: [phone] Name .................. : HAYLEE Forrester Acct Number.................. : [id number] ROOM. .......... ....... : CCU2 MR Number ................... : [id number] Stay type ............. : O/P Discharge Date......... ... : Admit Date ......... : 01/08/21 Admit Phys .................... : J LUIS VIDA Date of ....... : 1945 Family Phys ................... : J LUIS VIDA Phone .................. : [phone] Age ................................ : 75 Film# .................. .:[id number] Sex ................................. : M Unsigned transcriptions are preliminary reports and do not represent a medical or legal document CT LOWER EXT LT W/O CONT [id number] COMPLETE:01/09/21 16:24 ALEJANDRA [id number] Reason for Exam: LEFT KNEE FOR EFFUSION NO CONTRAST Copy for: 710 MED REC Page 2 of 2 Name Value Range Interpretation Code Description Data Alma rce(s) Supporting Document(s) ID Date Data Source [id number] 01/10/2021 06:48:00 AM EDT [facility] Name Value Range Interpretation Code Description Data Alma rce(s) Supporting Document(s) COMPREHENSIVE METABOLIC PANEL [facility] COMPREHENSIVE METABOLIC PANEL Sodium [Moles/volume] in Serum or Plasma 131 mEq/L 134 - 153 L [facility] Potassium [Moles/volume] in Serum or Plasma 4.2 mEq/L 3.6 - 5.0 [facility] Chloride [Moles/volume] in Serum or Plasma 97 mEq/L 98 - 107 L [facility] Carbon dioxide, total [Moles/volume] in Serum or Plasma 25 MEQ/L 22 - 30 [facility] Glucose [Mass/volume] in Serum or Plasma 165 MG/DL 70 - 99 H [facility] BUN 24 MG/DL 7 - 21 H [facility] al Creatinine [Mass/volume] in Serum or Plasma 0.7 MG/DL 0.7 - 1.5 [facility] BUN/CREAT 34 8 - 27 H [facility] Protein [Mass/volume] in Serum or Plasma 5.8 G/DL 6.3 - 8.2 L [facility] Albumin [Mass/volume] in Serum or Plasma 3.6 G/DL 3.9 - 5.0 L [facility] Globulin [Mass/volume] in Serum by calculation 2.2 GM/DL 2.4 - 3.2 L [facility] A/G RATIO 1.6 0.8 - 2.0 [facility] Calcium [Mass/volume] in Serum or Plasma 9.1 MG/DL 8.4 - 10.2 [facility] Bilirubin.total [Mass/volume] in Serum or Plasma <0.7 MG/DL 0.2 - 1.3 [facility] Alkaline phosphatase [Enzymatic activity/volume] in Serum or Plasma 113 U/L 38 - 126 [facility] Aspartate aminotransferase [Enzymatic activity/volume] in Serum or Plasma 13 U/L 5 - 40 [facility] Alanine aminotransferase [Enzymatic activity/volume] in Seru m or Plasma 15 U/L 7 - 56 [facility] Anion gap 3 in Serum or Plasma 9.0 mmol/L 8.0 - 16.0 [facility] 75 [facility] >[facility]/min [facility] ital AFR AMER GFR >60 mL/min [facility] Male GFR In terprentation 20-49 yrs >60 mL/min Normal 50-59 yrs >56 mL/min Normal 60-69 yrs >49 mL/min Normal 70-79yrs >42 mL/min Normal 80 and above >35 mL/min Normal Female GFR Interpretation 20-39 yrs >60 mL/min Normal 40-49 yrs >58 mL/min Normal 50-59 yrs >51 mL/min Normal 60-69 yrs >45 mL/min Normal 70-79 yrs >39 mL/min Normal 80 and above >32 mL/min Normal ID Date Data Source [id number] 01/10/2021 06:48:00 AM EDT [facility] Name Value Range Interpretation Code Description Data Alma rce(s) Supporting Document(s) CBC W/AUTOMATED DIFF [facility] COMPLETE BLOOD COUNT Leukocytes [#/volume] in Blood by Automated count 7.7 10^3/uL 4.2 - 1 1.0 [facility] Erythrocytes [#/volume] in Blood by Automated count 4.76 10^6/uL 4. 50 - 6.30 [facility] Hemoglobin [Mass/volume] in Blood 14.1 g/dL 14.0 - 16.0 [facility] Hematocrit [Volume Fraction] of Blood by Automated count 41.0 % 4 1.0 - 51.0 [facility] Erythrocyte mean corpuscular volume [Entitic volume] by Auto mated count 86.1 fL 80.0 - 94.0 [facility] Erythrocyte mean corpuscular hemoglobin [Entitic mass] by Automated count 29.6 pg 27.0 - 34.0 [facility] Erythrocyte mean corpuscular hemoglobin concentration [Mass/volume] by Automated count 34.4 g/dL 31.0 - 36.0 [facility] Erythrocyte distribution width [Ratio] by Automated count 13.2 % 11.5 - 14.8 [facility] Platelets [#/volume] in Blood by Automated count 265 10^3/uL 150 - 45 0 [facility] Platelet mean volume [Entitic volume] in Blood by Automated count 9.5 fL 7.4 - 10.4 [facility] Neutrophils/100 leukocytes in Blood by Automated count 55.8 % 37. 0 - 80.0 [facility] Lymphocytes/100 leukocytes in Blood by Manual count 32.2 % 25.0 - 40.0 [facility] Monocytes/100 leukocytes in Blood by Automated count 8.9 % 3.0 - 8.0 H [facility] Eosinophils/100 leukocytes in Blood by Automated count 2.4 % 0.0 - 7.0 [facility] Basophils/100 leukocytes in Blood by Automated count 0.4 % 0.0 - 2.0 [facility] %IG 0.3 % 0.0 - 0.[address] [facility] %NRBC 0.0 % 0.0 - 0.0 [facility] al Neutrophils [#/volume] in Blood by Automated count 4.28 10^3/uL 2.00 - 6.90 [facility] Lymphocytes [#/volume] in Blood by Automated count 2.46 10^3/uL 0.60 - 3.40 [facility] Monocytes [#/volume] in Blood by Automated count 0.68 10^3/uL 0.00 - 0.90 [facility] Eosinophils [#/volume] in Blood by Automated count 0.18 10^3/uL 0.00 - 0.70 [facility] Basophils [#/volume] in Blood by Automated count 0.03 10^3/uL 0.00 - 0.20 [facility] #IG 0.02 10^3/uL 0.00 - 0.10 [facility] #NRBC 0.00 10^3/uL 0.00 - 0.00 [facility] MANUAL DIFF NOT INDICATED [facility] RBC MORPH NOT INDICATED [facility] ID Date Data Source [id number] 01/12/2021 07:01:00 AM EDT [facility] Name Value Range Interpretation Code Description Data Alma rce(s) Supporting Document(s) Osmolality of Serum or Plasma 282 mOsmol/kg 280-301 [facility] ID Date Data Source [id number] 01/11/2021 08:11:00 AM EDT [facility] Name Value Range Interpretation Code Description Data Alma rce(s) Supporting Document(s) Cortisol [Mass/volume] in Serum or Plasma 13.7 ug/dL [facility] C ortisol AM 6.2 - 19.4 Cortisol PM 2.3 - 11.9 ID Date Data Source [id number] 01/10/2021 12:41:00 PM EDT [facility] Name Value Range Interpretation Code Description Data Alma rce(s) Supporting Document(s) Fibrin D-dimer FEU [Mass/volume] in Platelet poor plasma 0.27 ug /mL 0.27 - 0.50 [facility] ID Date Data Source [id number] 01/10/2021 12:01:00 PM EDT [facility] Value Range Interpretation Code Description Data Alma rce(s) Supporting Document(s) Thyroxine (T4) free index in Serum or Plasma by calculation 1.14 NG/DL 0.93 - 1.70 [facility] ID Date Data Source [id number] 01/10/2021 12:01:00 PM EDT [facility] Name Value Range Interpretation Code Description Data Alma rce(s) Supporting Document(s) Thyrotropin [Units/volume] in Serum or Plasma by Detec tion limit <= 0.05 mIU/L 2.13 uIU/mL 0.47 - 5.01 [facility] ID Date Data Source [id number] 01/09/2021 08:38:00 [place] [address] RESPIRATORY CARE REPORT ==== ---------NAME------- NUMBER SEX AGE ADMIT DISC. XRAY# F/C KHARI Forrester [id number] M 75 01/08/21 [id number] MB4 O/P DATE OF : 1945 M/R# [id number] PH#: [phone] CCU2 LOCATION: EMERGENCY DEPT [facility] [address] COMPL ETE:01/09/21 00:36 AJP [id number] PHYSICIAN: J LUIS HERRERA [facility] Name Value Range Interpretation Code Description Data Alma rce(s) Supporting Document(s) ID Date Data Source [id number] 01/09/2021 12:00:00 PM EDT [facility] Name Value Range Interpretation Code Description Data Alma rce(s) Supporting Document(s) Prostate specific Ag [Mass/volume] in Serum or Plasma 0.02 ng/mL 0.00 - 4.00 [facility] \\BLDo\\PSA INTERPRETA TION\\BLDx\\ The PSA assay should not be used alone for a screening test or diagnosis for presence or absence of malignant disease. Predictions of disease recurrence should not be based solely on values obtained from serial patient serum values. The PSA result was determined by "[employer]", on the [employer] ARCHIE 6000. Values obtained with different assay methods or kits cannot be used interchangeably. ID Date Data Source [id number] 01/09/2021 10:37:00 AM EDT [facility] Name Value Range Interpretation Code Description Data Alma rce(s) Supporting Document(s) C reactive protein [Mass/volume] in Serum or Plasma by High sensitivity method 31.35 MG/L 1.00 - 3.00 H [facility] CDC/S HS-CRP CUT-OFF: RELATIVE RISK: <1.0 mg/L Low 1.0 - 3.0 mg/L Average >3.0 mg/L High Optimally, the average of HS-CRP results repeated two weeks apart should be used for risk assessment. ID Date Data Source [id number] 01/09/2021 07:47:00 AM EDT [facility] Name Value Range Interpretation Code Description Data Alma rce(s) Supporting Document(s) BNP 174 PG/ML 0 - [address] [facility] ID Date Data Source [id number] [facility] Code Description Data Alma rce(s) Supporting Document(s) Cobalamin (Vitamin B12) [Mass/volume] in Serum or Plasma 370 PG/ML 232 - 1245 [facility] ID Date Data Source [id number] 01/09/2021 07:43:00 AM EDT [facility] Name Value Range Interpretation Code Description Data Alma rce(s) Supporting Document(s) CVE PANEL [facility] al LIPID PANEL Cholesterol [Mass/volume] in Serum or Plasma 276 MG/DL 131 - 200 H [facility] Deprecated Triglyceride [Mass/volume] in Serum or Plasma 108 MG/DL 3 5 - 160 [facility] HDL 67 MG/DL 29 - 86 [facility] Cholesterol in LDL [Mass/volume] in Serum or Plasma by Direc t assay 203 mg/dL 65 - 175 H [facility] Cholesterol.total/Cholesterol in HDL [Mass Ratio] in Serum o r Plasma 4.1 3.4 - 4.9 [facility] LDL/HDL 3.03 1.00 - 3.55 [facility] ital CVE RISK CHOL/HDL LDL/HDLMEN: 1/2 AVERAGE 3.43 1.00 AVERAGE 4.97 3.55 2X AVERAGE 9.55 6.25 3X AVERAGE 23.99 7.99WOMEN: 1/2 AVERAGE 3.27 1.47 AVERAGE 4.44 3.22 2X AVERAGE 7.05 5.03 3X AVERAGE 11.04 6.14 ID Date Data Source [id number] 01/09/2021 07:43:00 AM EDT [facility] Name Value Range Interpretation Code Description Data Alma rce(s) Supporting Document(s) Iron [Mass/volume] in Serum or Plasma 41 UG/DL 42 - 135 L [facility] ID Date Data Source [id number] 01/09/2021 07:43:00 AM EDT [facility] Name Value Range Interpretation Code Description Data Alma rce(s) Supporting Document(s) COMPREHENSIVE METABOLIC PANEL [facility] COMPREHENSIVE METABOLIC PANEL Sodium [Moles/volume] in Serum or Plasma 127 mEq/L 134 - 153 L [facility] Potassium [Moles/volume] in Serum or Plasma 4.5 mEq/L 3.6 - 5.0 [facility] Chloride [Moles/volume] in Serum or Plasma 94 mEq/L 98 - 107 L [facility] Carbon dioxide, total [Moles/volume] in Serum or Plasma 22 MEQ/L 22 - 30 [facility] Glucose [Mass/volume] in Serum or Plasma 334 MG/DL 70 - 99 H [facility] BUN 21 MG/DL 7 - 21 [facility] Creatinine [Mass/volume] in Serum or Plasma 0.5 MG/DL 0.7 - 1.5 L [facility] BUN/CREAT 42 8 - 27 H [facility] Protein [Mass/volume] in Serum or Plasma 6.6 G/DL 6.3 - 8.2 [facility] Albumin [Mass/volume] in Serum or Plasma 4.0 G/DL 3.9 - 5.0 [facility] Globulin [Mass/volume] in Serum by calculation 2.6 GM/DL 2.4 - 3.2 [facility] A/G RATIO 1.5 0.8 - 2.0 [facility] Calcium [Mass/volume] in Serum or Plasma 9.4 MG/DL 8.4 - 10.2 [facility] Bilirubin.total [Mass/volume] in Serum or Plasma <0.7 MG/DL 0.2 - 1.3 [facility] Alkaline phosphatase [Enzymatic activity/volume] in Serum or Plasma 135 U/L 38 - 126 H [facility] Aspartate aminotransferase [Enzymatic activity/volume] in Serum or Plasma 25 U/L 5 - 40 [facility] Alanine aminotransferase [Enzymatic activity/volume] in Seru m or Plasma 19 U/L 7 - 56 [facility] Anion gap 3 in Serum or Plasma 11.0 mmol/L 8.0 - 16.0 [facility] AGE 75 yrs [facility] NON-AA GFR >60 mL/min [facility] ital AFR AMER GFR >60 mL/min [facility] Male GFR In terprentation 20-49 yrs >60 mL/min Normal 50-59 yrs >56 mL/min Normal 60-69 yrs >49 mL/min Normal 70-79yrs >42 mL/min Normal 80 and above >35 mL/min Normal Female GFR Interpretation 20-39 yrs >60 mL/min Normal 40-49 yrs >58 mL/min Normal 50-59 yrs >51 mL/min Normal 60-69 yrs >45 mL/min Normal 70-79 yrs >39 mL/min Normal 80 and above >32 mL/min Normal ID Date Data Source [id number] 01/09/2021 07:37:00 AM T [facility] Name Value Range Interpretation Code Description Data Alma rce(s) Supporting Document(s) Hemoglobin A1c/Hemoglobin.total in Blood 7.9 % 4.4 - 6.1 H [facility] {A1]{HB] ID Date Data Source [id number] 01/09/2021 06:48:00 AM EDT [facility] Name Value Range Interpretation Code Description Data Alma rce(s) Supporting Document(s) CBC W/AUTOMATED DIFF [facility] COMPLETE BLOOD COUNT Leukocytes [#/volume] in Blood by Automated count 4.2 10^3/uL 4.2 - 1 1.0 [facility] Erythrocytes [#/volume] in Blood by Automated count 5.04 10^6/uL 4. 50 - 6.30 [facility] Hemoglobin [Mass/volume] in Blood 15.0 g/dL 14.0 - 16.0 [facility] Hematocrit [Volume Fraction] of Blood by Automated count 42.7 % 4 1.0 - 51.0 [facility] Erythrocyte mean corpuscular volume [Entitic volume] by Auto mated count 84.7 fL 80.0 - 94.0 [facility] Erythrocyte mean corpuscular hemoglobin [Entitic mass] by Automated count 29.8 pg 27.0 - 34.0 [facility] Erythrocyte mean corpuscular hemoglobin concentration [Mass/volume] by Automated count 35.1 g/dL 31.0 - 36.0 [facility] Erythrocyte distribution width [Ratio] by Automated count 13.1 % 11.5 - 14.8 [facility] Platelets [#/volume] in Blood by Automated count 275 10^3/uL 150 - 45 0 [facility] Platelet mean volume [Entitic volume] in Blood by Automated count 9.8 fL 7.4 - 10.4 [facility] Neutrophils/100 leukocytes in Blood by Automated count 81.5 % 37. 0 - 80.0 H [facility] Lymphocytes/100 leukocytes in Blood by Manual count 15.7 % 25.0 - 40.0 L [facility] Monocytes/100 leukocytes in Blood by Automated count 1.9 % 3.0 - 8.0 L [facility] Eosinophils/100 leukocytes in Blood by Automated count 0.2 % 0.0 - 7.0 [facility] Basophils/100 leukocytes in Blood by Automated count 0.2 % 0.0 - 2.0 [facility] %IG 0.5 % 0.0 - 0.[address] [facility] %NRBC 0.0 % 0.0 - 0.0 [facility] al Neutrophils [#/volume] in Blood by Automated count 3.42 10^3/uL 2.00 - 6.90 [facility] Lymphocytes [#/volume] in Blood by Automated count 0.66 10^3/uL 0.60 - 3.40 [facility] Monocytes [#/volume] in Blood by Automated count 0.08 10^3/uL 0.00 - 0.90 [facility] Eosinophils [#/volume] in Blood by Automated count 0.01 10^3/uL 0.00 - 0.70 [facility] Basophils [#/volume] in Blood by Automated count 0.01 10^3/uL 0.00 - 0.20 [facility] #IG 0.02 10^3/uL 0.00 - 0.10 [facility] #NRBC 0.00 10^3/uL 0.00 - 0.00 [facility] MANUAL DIFF NOT INDICATED [facility] RBC MORPH NOT INDICATED [facility] ID Date Data Source [id number] 01/09/2021 06:48:00 AM EDT [facility] Name Value Range Interpretation Code Description Data Alma rce(s) Supporting Document(s) Fibrin D-dimer FEU [Mass/volume] in Platelet poor plasma 0.65 ug /mL 0.27 - 0.50 H [facility] ID Date Data Source [id number] 01/09/2021 06:48:00 AM EDT [facility] Name Value Range Interpretation Code Description Data Alma rce(s) Supporting Document(s) Lactate [Moles/volume] in Serum or Plasma 2.1 MMOL/L 0.2 - 2.2 [facility] ID Date Data Source [id number] 01/11/2021 06:43:00 AM EDT [facility] Name Value Range Interpretation Code Description Data Alma rce(s) Supporting Document(s) Protein Fractions [Interpretation] in Serum or Plasma by Imm unofixation COMMENT [facility] The immunofixation pattern appears unrem arkable. Evidence ofmonoclonal protein is not apparent. IgG [Mass/volume] in Serum or Plasma 720 mg/dL 603-1613 [facility] IgA [Mass/volume] in Serum or Plasma 111 mg/dL 61-437 [facility] IgM [Mass/volume] in Serum or Plasma 88 mg/dL 15-143 [facility] ID Date Data Source [id number] 01/08/2021 05:42:00 PM EDT [facility] 1 OrderSheet [facility] Emergency Department [address] [place] [address] Phone #: [phone] 01/08/2021 17:42 Patient: MAGDY LEACH Sex: M : 1945 Age: 75yWEIGHT:107.9 kg (S) HEIGHT:72 inches (E) BMI:32.3ALLERGIES: Morphine and RelatedCHIEF COMPLAINT: syncope, [id number]: Syncope, Diabetes mellitus, Hyponatremia, Injury of knee, AstheniaLAB ORDERSOrder Description Priority Entered Acknowledged InitialedCBC w Diff STAT 18:01/08/2021 18:13 Rosa Maria Ngo RN, M.D.;CMP STAT 18:01/08/2021 18:13 Rosa Maria Ngo RN, M.D.;Lipase STAT 18:01/08/2021 18:13 Rosa Maria Ngo RN, M.D.;PT/PTT STAT 18:01/08/2021 18:13 Yoni Ngo RN, M.D.;Troponin-T STAT 18:11 01/08/2021 18:13 Rosa Maria Ngo RN, M.D.;CPK STAT 18:11 01/08/2021 18:13 Rosa Maria Ngo RN, M.D.;BNP STAT 18:11 01/08/2021 18:13 Rosa Maria Ngo RN, M.D.;Urinalysis (Clean STAT 18:11 01/08/2021 18:18 BurnhamCatch) Rosa Maria Herrera construction operations managerLawrence Hernandez M.D.; [id number] STAT 18:11 01/08/2021 18:13 Rosa Maria Ngo RN, M.D.;COVID-19 CAH (Not STAT 18:21 01/08/2021 18:36 PeterSymptomatic as Rosa Maria Herrera RNDefined by [facility]) Shira;(01/08/2021) (Not 2 OrderSheet [facility] Emergency Department [address] [place] [address] Phone #: ext- [phone] 01/08/2021 17:42 Patient: MAGDY LEACH Sex: M : 1945 Age: 75yFirst Test) (NotHospitalized) (Not) (NotResident inCongregate CareSetting) (NotEmployed inHealthcare Setting)DIAGNOSTIC STUDY ORDERSOrder Description Priority Entered Acknowledged InitialedChest Portable 1 STAT 18:11 01/08/2021 18:13 Rosa Maria Dickson RN(Oxygen?(No)) Shira; Reason for Study: syncopeKnee AP And LAT STAT 18:11 01/08/2021 18:13 Macho (Oxygen?(No)) Rosa Maria Herrera RN, M.D.; Reason for Study: Knee InjuryCT Head W/O Cont STAT 18:26 01/08/2021 Ack'd: 18:28 18:36 Terence(Oxygen?(No)) Rosa Maria Herrera [place] construction operations managerWesly RN, M.D.; Lawrence SKYLER Tech1 Reason for Study: SyncopeMEDICATION/IV/DRIP/FLUID ORDERSOrder Description Priority Entered Acknowledged InitialedNS IV : 125 mL/hr 18:21 01/08/2021 18:30 Rosa Maria Ngo RN, M.D.;Ofirmev IV 1000 mg 18:21 01/08/2021 18:31 Terence(NOW x1, Infuse Rosa Maria Herrera RNover 15 minutes) Shira;GENERAL ORDERSOrder Description Priority Entered Acknowledged InitialedBlood Pressure 18:11 01/08/2021 18:13 Janethitor Rosa Maria Herrera RN, M.D.;Cna Caregiver 18:11 01/08/2021 18:13 Terence(continuous) Rosa Maria Herrera RN, M.D.;EKG 18:11 01/08/2021 18:13 Terence 3 OrderSheet [facility] Emergency Department [address] [place] [address] Phone #: ext- [phone] 01/08/2021 17:42 Patient: MAGDY LEACH Sex: M : 1945 Age: 75y Rosa Maria Herrera RN, M.D.;NPO 18:11 01/08/2021 18:13 Rosa Maria Ngo RN, M.D.;Obtain Old EKG 18:11 01/08/2021 18:13 Rosa Maria Ngo RN, M.D.;Obtain Old Records 18:11 01/08/2021 18:13 Rosa Maria Ngo RN, M.D.;Oxygen titrate to 18:11 01/08/2021 18:13 Peter92% Rosa Maria Herrera RN, M.D.;Pulse oximeter 18:11 01/08/2021 18:13 Terence(Continuous) Rosa Maria Herrera RN, M.D.;Saline Lock 18:11 01/08/2021 18:13 Rosa Maria Ngo RN, M.D.;Vitals 18:11 01/08/2021 18:13 Rosa Maria Ngo RN, M.D.;Knee Immobilizer 19:14 01/08/2021 19:38 Rosa Maria Ngo RN, M.D.;Consult - 19:49 01/08/2021 20:06 Karenaologist Rosa Maria Herrera RN, M.D.;[Electronically signed by Terence Jarrell RN (21:08 01/08/2021)][Electronically signed by Rosa Maria Herrera M.D. (21:14 01/08/2021)][Electronically locked by Terence Jarrell RN (21:01/08/2021)] Name Value Range Interpretation Code Description Data Alma rce(s) Supporting Document(s) ID Date Data Source [id number] 01/08/2021 05:42:00 PM EDT [facility] 1 Medication Reconciliation Report [facility] Emergency Department [address] [place] [address] Phone #: ext- [phone] 01/08/2021 17:42 [id number] Sex: M : 1945 Age: 75yWeight: 107.9 kgHeight/Length: 72 in.BMI: 32.3ALLERGIES: Morphine and RelatedThe patient's Home Medications are listed below:THE FOLLOWING MEDICATIONS NEED TO BE RECONCILED: Atenolol Oral (100 mg) 1 tablet, daily Glimepiride Oral (4 mg) 1 tablet, daily Lovastatin Oral (40 mg) 1 tablet, dailyThe source(s) of the original Home Medication information:Not obtained.The following Medications were given to the patient in the Emergency Department:NS [IV] IV Fluids bolus 0, then 125 mL/hr, administered: 18:30 01/08/2021ofirmev Drip IV bolus 0, then 1000 mg, administered: 18:31 01/08/2021The following Medications were prescribed to the patient:None. Name Value Range Interpretation Code Description Data Alma rce(s) Supporting Document(s) ID Date Data Source [id number] 01/08/2021 05:42:00 PM EDT [place] [address] Medication Administration Record [facility] Emergency Department [address] [place] [address] Phone #: ext- [phone] 01/08/2021 17:42 Patient: MAGDY LEACH Sex: M : 1945 Age: 75yWeight: 107.9 kgHeight/Length: 72 inBMI: 32.3ALLERGIES: Morphine and Related Date/Time Medication Administered Medication OrderedStart NS [IV] NS IV : 125 mL/hr18:30 01/08/2021 Dose: IV FluidsPeStein RN Rate: 125 mL/hr over 4 hour(s)---- Dispensed: 500 mL bagStop Site: #1 right [id number] 1PALLIE Langfordtart ofirmev * Ofirmev IV 1000 mg (NOW x1,18:31 01/08/2021 Dose: 1000 mg * Drip IV Infuse over 15 minutes)Terence Jarrell RN----Stop18:48 01/08/2021beulah Jarrell RN Name Value Range Interpretation Code Description Data Alma rce(s) Supporting Document(s) ID Date Data Source [id number] 01/08/2021 05:42:00 PM EDT [facility] 1 General Instructions [facility] Emergency Department [address] [place] [address] Phone #: ext- [phone] 01/08/2021 17:42 Patient: MAGDY LEACH Sex: M : 1945 Age: 75yVasovagal syncope of unknown cause.Chronic generalized weakness.Chronic, poorly controlled type 2 diabetes with hyperglycemia.Mild hyponatremia.Left knee effusion.Deconditioning.(Electronically signed by Rosa Maria Herrera M.D. 01/08/2021 21:14) Name Value Range Interpretation Code Description Data Alma rce(s) Supporting Document(s) ID Date Data Source [id number] 01/08/2021 05:42:00 PM EDT [facility] 1 Clinical Report - Nurses [facility] Emergency Department [address] [place] [address] Phone #: ext- [phone] 01/08/2021 17:42 Patient: MAGDY LEACH Sex: M : 1945 Age: 75yTRIAGEArrived by private vehicle. Historian: patient.Acuity: LEVEL 3.Chief Complaint: WEAKNESS (DIFFICULTY WALKING, FALL).Onset. (10 hours ago). ( Pt states he was walking in his house going to the window and suddenly hefainted falling to the floor causing an injury to his left knee, unknown time on the floor, pt voices he hasdone this before, pt states brief LOC).EMS Treatment ON SITE SOIL EVALUATOR:EMS treatment verbally communicated and report reviewed. See report. Finger stick glucose performed(248).SEPSIS SCREEN: SIRS SCREEN NEGATIVE. SEPSIS SCREEN NEGATIVE. No suspected or confirmedsigns of infection present.ALFREDO COMA SCORE: 15- eyes open- spontaneous (4); best verbal response- oriented (5); bestmotor response- obeys commands (6). --17:56 01/08/21 Terence Jarrell RN17:45 01/08/21. BP: 155/90. MAP: 111. HR: 92. RR: 18. O2 saturation: 99%. Temp: 97.1 F. Pain levelnow: 10. --17:56 01/08/21 Terence Jarrell RN.Weight: 107.9 kg stated. Height/Length: 72 inches Estimated. BMI: 32.3. --17:44 01/08/21 Terence Jarrell RN.MedicationsAtenolol Oral (Tablet 100 mg) 1 tablet, daily. Glimepiride Oral (Tablet 4 mg) 1 tablet, daily. Lovastatin Oral (Tablet 40 mg) 1 tablet, daily. --17:55 01/08/21 Terence Jarrell RN.AllergiesMorphine and Related. --17:55 01/08/21 Terence Jarrell RN.HistoryPAST MEDICAL HX: Immunizations: up-to-date.SOCIAL HX: Never smoker. No alcohol use or drug use. He was offered HIV testing but declined andhepatitis C testing but declined. He has not traveled outside the [place]Infectious disease exposure: No infectious disease exposure. 2 Clinical Report - Nurses [facility] Emergency Department [address] [place] [address] Phone #: ddy- [phone] 01/08/2021 17:42 Patient: MAGDY LEACH Sex: M : 1945 Age: 75y SELF HARM ASSESSMENT: Self harm assessment was performed. The patient answered "no" to the question(s) "Have you recently felt down, depressed, or hopeless?", "Do you have thoughts of harming or killing yourself?", "Do you have a plan for harming or killing yourself?", "Have you recently had thoughts about harming or killing others?", "Do you have any dangerous items in your possession?", "Have you noticed less interest or pleasure in doing things?", "Are you here because you tried to hurt yourself?" and "Have you ever tried to hurt yourself before today?". ABUSE ASSESSMENT: No report of abuse. NUTRITIONAL RISK ASSESSMENT: The nutritional risk assessment revealed no deficiencies. LEARNING NEEDS ASSESSMENT: The learning needs assessment revealed no barriers. FALL RISK ASSESSMENT: Fall risk assessment completed. Risk factors identified include patient age greater than 65 years, history of fall and impairment of mobility. FUNCTIONAL ASSESSMENT: Functional assessment performed: independent with the activities of daily living; uses walker. SKIN INTEGRITY ASSESSMENT: Skin integrity risk assessment completed. No skin integrity risk identified. --:56 01/08/21 Terence Jarrell RN. Interventions To treatment room. --:56 01/08/21 Terence Jarrell RN. 17:50 01/08/2021 Site #1 started via IV in the right forearm with an 18g angiocath, with aseptic technique and good blood return; one attempt. --17:50 01/08/21 Terence Jarrell RN.PHYSICAL ASSESSMENTTo room via stretcher. ( pt reports back pain along with left knee pain from his fall today).GENERAL / NEURO / PSYCH: Alert. Oriented X 4. Appears in pain.HEENT: Pupils equal, round and reactive to light. No facial asymmetry noted. Mucous membranes arepink.RESPIRATORY: Respirations not labored. Chest nontender. Breath sounds within normal limits.CVS: Normal sinus rhythm noted. Capillary refill less than 2 seconds. Pulses within normal limits.GI / : Abdomen soft and nontender and normal bowel sounds.SKIN: Skin intact. Skin is warm and dry. Normal skin turgor. --18:01/08/21 Terence Jarrell RN.NURSING PROGRESS NOTESCardiac monitor, NIBP monitor and pulse oximeter placed on patient; court monitor- Lead II; monitoralarms on. Patient gowned. Head of bed elevated. Reassurance given. Call light placed in reach.Side rails up x 2. Bed placed in lowest position. Brakes of bed on. Patient ready for evaluation- EDphysician notified. --18:01/08/21 Terence Jarrell RN 3 Clinical Report - Nurses [facility] Emergency Department [address] [place] [address] Phone #: ext- [phone] 01/08/2021 17:42 Patient: MAGDY LEACH Sex: M : 1945 Age: 75y 18:30 01/08/2021 Started bag #1 500 mL IV Fluids NS; at 125 mL/hr over 4 hour(s) via site #1 via IV pump. Allergies verified and confirmed 5 rights. IV patency established. IV site checked: no pain, redness, or swelling. IV flushed thoroughly pre- and post-medication administration. Information reviewed with patient including reason for taking this medication. Verbalizes understanding. --18:30 01/08/21 Terence Jarrell RN 18:31 01/08/2021 [facility] * Drip IV 1000 mg 100 ml infused at 400 ml/hr over 15 minutes --18:31 01/08/21 Terence Jarrell RN 18:36 01/08/21. BP: 174/99. MAP: 124. HR: 86. RR: 16. O2 saturation: 99%. --18:37 01/08/21 Terence Jarrell RN Patient ID band checked for patient name and birthdate: patient confirmed. COVID-19 specimen obtained by RN via nasopha ryngeal swab. Labeled in the presence of the patient and sent to lab. --18:37 01/08/21 Terence Jarrell RN 18:48 01/08/2021 [facility] Discontinued: infused. Total amount infused: 100 mL. IV patency established. IV site checked: no pain, redness, or swelling. IV flushed thoroughly. --19:18 01/08/21 Terence Jarrell RN Immobilizer applied to the left knee by nurse; distal pulses intact, sensation intact and motor function within normal limits. --19:37 01/08/21 Terence Jarrell RN 19:36 01/08/21. BP: 163/90. MAP: 114. HR: 79. RR: 16. O2 saturation: 99%. Pain level now: 03/03. --19:37 01/08/21 Terence Jarrell RN 20:56 01/08/2021 IV Fluids NS via IV site #1 Discontinued: STOPPED upon admission. Total amount infused: 250 mL. IV patency established. IV site checked: no pain, redness, or swelling. IV flushed thoroughly. --20:56 01/08/21 Terence Jarrell RN.DISPOSITION / DISCHARGE Disposition: observation for further evaluation and cardiac monitoring. Transported via stretcher by nurse with monitor and IV. Report was given to a nurse via a phone call and visit overview. Report included information regarding patient's care, treatment and allergies, current vital signs and abnormal labs. Report included treatment information regarding medications given or pending; type and amount of IV fluids and medications infusing and total volume infused. All questions were answered. Report was acknowledged and care was transferred. (Sanjuanita CHRISTINE). Bed obtained and ready (ccu 2). --20:52 01/08/21 Terence Jarrell RN 20:51 01/08/21. BP: 144/83. MAP: 103. HR: 74. RR: 16. O2 saturation: 99%. Temp: 97.5 F. Pain level now: 02/01. --20:52 01/08/21 Terence Jarrell RN Departure time: 20:56 01/08/2021. --20:57 01/08/21 Terence Jarrell RN 21:00 01/08/21. Report was given to a nurse at bedside. All questions were answered. Report was acknowledged and care was transferred. --21:08 01/08/21 Terence Jarrell RN. 4 Clinical Report - Nurses [facility] Emergency Department [address] [place] [address] Phone #: ext- [phone] 01/08/2021 17:42 [id number] Sex: M : 1945 Age: 75yLocked/Released at 01/08/2021 21:08 by Terence Jarrell RN Name Value Range Interpretation Code Description Data Alma rce(s) Supporting Document(s) ID Date Data Source [id number] 01/08/2021 05:42:00 PM EDT [facility] 1 Clinical Report - Physicians/Mid Levels [facility] Emergency Department [address] [place] [address] Phone #: ext- [phone] 01/08/2021 17:42 Patient: [facility] LEACH [id number] Sex: M : 1945 Age: 75y Time Seen: 17:44 01/08/2021; initial patient contact. Arrived- By ambulance. Historian- patient. History limited by age and vague historian. Disposition decision: 19:47 01/08/2021.HISTORY OF PRESENT ILLNESS Chief Complaint: SINGLE SYNCOPAL EPISODE and weakness. This occurred just prior to arrival. The patient has recovered. Event was not witnessed. The patient had preceding symptoms of light-headedness and warmth. The patient lost consciousness. At time of event, he was standing. The episode was brief and lasted seconds. The patient currently has weakness. (left knee pain from falling; pt has significant Hx of recurrent syncope's w weakness and deconditioning; was a pt of Dr. Rushing until he was removed for his practice a few months ago; pt was admitted at [facility] in then transferred to [facility] for rehab x 30 days; pt has been home x 1 month w/o any meds for his medical conditions; today was standing next to window when he passed out again and injured left knee; BS 248 on scene per EMS). Similar symptoms previously. Patient has had similar symptoms many times, frequently. Recent medical care: Not recently seen/assessed.REVIEW OF SYSTEMSNo headache, dizziness, chest pain, palpitations or abdominal pain. No vomiting, diarrhea, black stools,numbness or bloody stools. No fever, sore throat, difficulty breathing, difficulty with urination or skin rash.No enlarged lymph nodes or cough. The patient has had generalized weakness, (chronically). He hashad mild joint pain with swelling, involving the left knee.PAST HISTORYSee nurses notes. Problems: Back Pain. Hypercholesterolemia. Diabetes Mellitus. Pulmonary Embolism. Hypertension. Additional Surgeries: Back Surgery. 2 Clinical Report - Physicians/Mid Levels [facility] Emergency Department [address] [place] [address] Phone #: ext- [phone] 01/08/2021 17:42 Patient: MAGDY LEACH Sex: M : 1945 Age: 75y Medications: Atenolol Oral (Tablet 100 mg) 1 tablet, daily. Glimepiride Oral (Tablet 4 mg) 1 tablet, daily. Lovastatin Oral (Tablet 40 mg) 1 tablet, daily. Allergies: Morphine and Related.SOCIAL HISTORYNever smoker. No alcohol use or drug use.ADDITIONAL NOTESThe nursing notes have been reviewed with agreement regarding the chief complaint, HPI, ROS, PMH andpatient medications and allergies.PHYSICAL EXAMVital Signs: 01/08/2021 18:36 BP: 174/99. MAP: 124. HR: 86. RR: 16. O2 saturation: 99%.01/08/2021 17:46 BP: 155/90. MAP: 111. HR: 92. RR: 18. O2 saturation: 99%. Temp: 97.1 F. Pain levelnow: 8/10. Have been reviewed. Oxygen saturation normal.Appearance: Alert. No acute distress. Anxious.Eyes: Pupils equal, round and reactive to light. No nystagmus. Extraocular movements normal.ENT: Normal ENT inspection. TM's normal. Moist mucous membranes. Pharynx normal.Neck: Normal inspection. Neck supple.CVS: Normal heart rate and rhythm. Heart sounds normal. Pulses normal.Respiratory: No respiratory distress. Painless inspiration. Breath sounds normal.Abdomen: Soft and nontender. No organomegaly.Back: Normal inspection.Skin: Skin warm and dry. Normal skin color. No rash. Normal skin turgor.Extremities: No lower extremity edema. Left knee: moderate tenderness and swelling. Limited ROMsecondary to pain and swelling (diminished flexion, extension and external and internal rotation). Smalljoint effusion present. Neurovascular intact distally. No erythema, abrasion, ecchymosis or deformity. Nolower extremity edema.Neuro: Alert. Oriented X 3. Mood/affect normal. Speech normal. Cranial nerves normal (as tested).No motor deficit. No sensory deficit.LABS, X-RAYS, AND EKGEKG: No acute process. No acute ischemia. Normal sinus rhythm. Rate: 91/min. Occasional ectopicbeats. Premature atrial contractions. First-degree atrioventricular block. RBBB. Left axis deviation. oldinferior CA. EKG unchanged when compared with prior EKG. (01-08-19). The study has been interpretedcontemporaneously by me. The EKG appears to be a good tracing. Interpretation time: 17:.Chest X-ray: Mild vascular congestion present on the right and left. Views: AP (portable). Technique:good. The X-rays were interpreted by the radiologist. Interpretation time: 19:03 01/08/2021.Lt Knee X-ray: No fracture. Moderate-sized joint effusion. Degenerative joint disease. Views: 2 viewknee series. Technique: good. The X-rays were interpreted by the radiologist. Interpretation time: 19:04 3 Clinical Report - Physicians/Mid Levels [facility] Emergency Department [address] [place] [address] Phone #: ext- [phone] 01/08/2021 17:42 Patient: MAGDY LEACH Sex: M : 1945 Age: 75y01/08/2021.CT Head: Mild white matter disease is present. No acute changes. There is mild atrophy is present.(see report). Head CT performed without contrast. The study was interpreted by the radiologist.Interpretation time: 19:34 01/08/2021.Laboratory Tests: Laboratory tests have been ordered, with results reviewed and considered in themedical decision making process.CT Head W/O Cont: (MAIKOL: 01/08/2021 18:26) ( [facility] [place] 01/08/[place] 19:30) In ProgressCT HEAD W/O CONTRASTReason(s): SyncopeTRANSPORTATION: S IV? O2? Oxygen?(No) Room: [place] [address] CAH: (MAIKOL: 01/08/2021 18:30) ( [facility] 01/08/2021 19:02) Final results Test Result Flag Units (Reference) COVID-19 NOT DETECTED COVID-19 REENTER NOT DETECTED { PROCEDURAL CONTROL VALID KIT LOT # _[id number] 01/08/21.DC . KIT EXP DATE _02/21/21 01/08/21.DC . NORMAL RANGE IS NOT DETECTEDNEGATIVE RESULTS SHOULD BE TREATEDAS PRESUMPTIVE AND, IF INCONSISTENT WITHCLINICAL SIGNS AND SYMPTOMS OR NECESSARY FOR PATIENT MANAGEMENT, SHOULDBETESTED WITH DIFFERENT AUTHORIZED OR CLEARED MOLECULAR TESTS. NEGATIVE RESULTSDO NOT PRECLUDE [id number] AND SHOULD NOT BE USED THE SOLE BASISFOR PATIENT MANAGEMENT DECISIONS.CBC w Diff: (MAIKOL: 01/08/2021 18:20) ( [facility] 01/08/2021 18:38) Final results Test Result Flag Units (Reference) CBC W/AUTOMATED DIFF COMPLETE BLOOD COUNT WBC 7.2 10/uL (4.2 - 11.0) RBC 5.11 10/uL (4.50 - 6.30) HEMOGLOBIN 15.1 g/dL (14.0 - 16.0) HEMATOCRIT 43.6 % (41.0 - 51.0) MCV 85.3 fL (80.0 - 94.0) MCH 29.5 pg (27.0 - 34.0) MCHC 34.6 g/dL (31.0 - 36.0) RDW 13.2 % (11.5 - 14.8) PLATELETS 289 10/uL (150 - 450) MPV 9.2 fL (7.4 - 10.4) NEUT 66.1 % (37.0 - 80.0) LYMPH 22.0 L % (25.0 - 40.0) MONO 9.5 H % (3.0 - 8.0) EOS 1.4 % (0.0 - 7.0) BASO 0.7 % (0.0 - 2.0) %IG 0.3 H % (0.0 - 0.0) %NRBC 0.0 % (0.0 - 0.0) #NEUT 4.79 10/uL (2.00 - 6.90) #LYMPH 1.59 10/uL (0.60 - 3.40) #MONO 0.69 10/uL (0.00 - 0.90) #EOS 0.10 10/uL (0.00 - 0.70) #BASO 0.05 10/uL (0.00 - 0.20) #IG 0.02 10/uL (0.00 - 0.10) #NRBC 0.00 10/uL (0.00 - 0.00) MANUAL DIFF NOT INDICATED RBC MORPH NOT INDICATED 4 Clinical Report - Physicians/Mid Levels [facility] Emergency Department [address] [place] [address] Phone #: ext- [phone] 01/08/2021 17:42 Patient: MAGDY LEACH Sex: M : 1945 Age: 75yCMP: (MAIKOL: 01/08/2021 18:20) ( MsgRcvd 01/08/2021 19:16) Final results Test Result Flag Units (Reference) COMPREHENSIVE METABOLIC PANEL COMPREHENSIVE METABOLIC PANEL SODIUM 132 L mEq/L (134 - 153) POTASSIUM 3.8 mEq/L (3.6 - 5.0) CHLORIDE 94 L mEq/L (98 - 107) CO2 25 MEQ/L (22 - 30) GLUCOSE 253 H MG/DL (70 - 99) BUN 25 H MG/DL (7 - 21) CREATININE 0.8 MG/DL (0.7 - 1.5) BUN/CREAT 31 H (8 - 27) TOTAL PROTEIN 6.4 G/DL (6.3 - 8.2) ALBUMIN 4.1 G/DL (3.9 - 5.0) GLOBULIN 2.3 L GM/DL (2.4 - 3.2) A/G RATIO 1.8 (0.8 - 2.0) CALCIUM 9.4 MG/DL (8.4 - 10.2) TOTAL BILI <0.7 MG/DL (0.2 - 1.3) ALKALINE PHOS 137 H U/L (38 - 126) SGOT/AST 15 U/L (5 - 40) SGPT/ALT 15 U/L (7 - 56) ANION GAP 13.0 mmol/L (8.0 - 16.0) AGE 75 yrs NON-AA GFR >60 mL/min AFR AMER GFR >60 mL/min Male GFR Interprentation 20-49 yrs >60 mL/min Kmfyzl51-10 yrs >56 mL/min Normal 60-69 yrs >49 mL/min Normal 70-79yrs>42 mL/min Normal 80 and above >35 mL/min Normal Female GFRInterpretation 20-39 yrs >60 mL/min Normal 40-49 yrs >58 mL/minNormal 50-59 yrs >51 mL/min Normal 60-69 yrs >45 mL/min Sjzbjh15-46 yrs >39 mL/min Normal 80 and above >32 mL/min NormalLipase: (MAIKOL: 01/08/2021 18:20) ( MsgRcvd 01/08/2021 19:13) Final results Test Result Flag Units (Reference) LIPASE 26 U/L (13 - 60)PT/PTT: (MAIKOL: 01/08/2021 18:20) ( MsgRcvd 01/08/2021 18:44) Final results Test Result Flag Units (Reference) PROTIME 13.5 SECONDS (11.0 - 15.5) INR 0.98 (0. 93 - 1.23) PTT 33.1 SECONDS (24.8 - 36.7) \\BLDo\\INR INTERPRETATION\\BLDx\\ Therapeutic range for Coumadin andrelated oral anticoagulants. -International Normalized Ratio (INR): 2.0 - 3.0 for VenousThrombosis, Pulmonary Embolus, Tissue heart valves, Acute CA Atrial Fibrillation, Valvular heart diseaseand recurrent Systemic Embolism. -International Normalized Ratio (INR): 2.5 - 3.5 forMechanical Prosthetic valve.Troponin-T: (MAIKOL: 01/08/2021 18:20) ( [facility] [place] 01/08/2021 18:53) Final results Test Result Flag Units (Reference) TROPONIN T <0.01 NG/ML (0.00 - 0.10) TROPONIN T0.1 ng/ml Recommended as the clinical threshold value forTroponin T.CPK: (MAIKOL: 01/08/2021 18:20) ( MsgRcvd 01/08/2021 19:13) Final results 5 Clinical Report - Physicians/Mid Levels [facility] Emergency Department [address] [place] [address] Phone #: ext- [phone] 01/08/2021 17:42 Patient: MAGDY LEACH Sex: M : 1945 Age: 75y Test Result Flag Units (Reference) CPK 135 U/L (30 - 170) BNP: (MAIKOL: 01/08/2021 18:20) ( MsgRcvd 01/08/2021 19:14) Final results Test Result Flag Units (Reference) BNP 111 PG/ML (0 - 125) Chest Portable 1 View: (MAIKOL: 01/08/2021 18:11) ( [facility] [place] 01/08/2021 18:46) In Progress CHEST PORTABLE Reason(s): syncope TRANSPORTATION: P IV? O2? Oxygen?(No) Room: ED Knee AP And LAT Left: (MAIKOL: 01/08/2021 18:11) ( [facility] [place] 01/08/2021 18:46) In Progress KNEE AP Reason(s): Knee Injury TRANSPORTATION: S IV? O2? Oxygen?(No) Room: ED Urinalysis: (MAIKOL: 01/08/2021 18:20) ( [facility] 01/08/2021 19:04) Final results Test Result Flag Units (Reference) URINALYSIS URINALYSIS SOURCE R COLOR yellow (NORMAL: Yello CLARITY clear (NORMAL: Clear SPEC GRAVITY 1.025 (1.001 - 1.030 pH 6 (5 - 9) GLUCOSE 1000 A (NORMAL: Negat BILIRUBIN NEG (NORMAL: Negat KETONE 5 A (NORMAL: Negat PROTEIN NEG (NORMAL: Negat NITRITE NEG (NORMAL: Negat BLOOD NEG (NORMAL: Negat LEUK EST NEG (NORMAL: Negat UROBILINOGEN NOR (less than 1.0 MICROSCOPIC Not Indicate TSH: (MAIKOL: 01/08/2021 18:20) ( [facility] 01/08/2021 19:14) Final results Test Result Flag Units (Reference) TSH 1.56 uIU/mL (0.47 - 5.01).PROGRESS AND PROCEDURESCourse of Care: 19:45 01/08/21. workup all in and reviewed; mild hypoNa, hyperglycemia, CXR showsPVH but BNP nml, lt knee x-ray shows DJD, effusion, immobilizer applied, CT head w/o neg.; pt doingbetter, no arrhythmia; Dr. Rushing saw pt before and will admit him. Critical care performed (60 minutes). Time is exclusive of separately billable procedures. Time includes: direct patient care, patient reassessment, coordination of patient care, interpretation of data (laboratory data, chest xrays and prior electrocardiograms), medical consultation and documentation of patient care- 6 Clinical Report - Physicians/Mid Levels [facility] Emergency Department [address] [place] [address] Phone #: ext- [phone] 01/08/2021 17:42 [facility] LE[id number] Sex: M : 1945 Age: 75y see progress notes. Patient counseled in person regarding the patient's stable condition, test results, diagnosis and need for admission. Patient agrees with plan of care. Disposition: Condition: good and stable. Discharge decision based on the following: patient's condition is stable; patient's condition is improved; patient is ambulatory; patient is active; patient drinking fluids; patient eating; patient's pain is controlled; patient's exam is improved; no seriously abnormal test results; improving condition on mu ltiple repeat evaluations; social support is adequate; transportation is available; follow-up is available; clinical impression is consistent with outpatient treatment.CLINICAL IMPRESSION Vasovagal syncope of unknown cause. Chronic generalized weakness. Chronic, poorly controlled type 2 diabetes with hyperglycemia. Mild hyponatremia. Left knee effusion. Deconditioning.(Electronically signed by Rosa Maria Herrera M.D. 01/08/2021 21:14) Name Value Range Interpretation Code Description Data Alma rce(s) Supporting Document(s) ID Date Data Source [id number] 01/08/2021 06:30:00 PM EDT [facility] Name Value Range Interpretation Code Description Data [facility] Supporting [facility](s) COVID19 Case rprt NOT DETECTED [facility] This lab was ordered by [facility] and reported by [facility]. ID Date Data Source [id number] 01/08/2021 07:00:00 PM EDT [facility] NOT DETECTEDNOT DETECTED{ PROC EDURAL CONTROL VALID KIT LOT # _[id number] 01/08/21.DC . KIT EXP DATE _02/21/21 01/08/21.1899.DC . NORMAL RANGE IS NOT DETECTEDNEGATIVE RESULTS SHOULD BE TREATED PRESUMPTIVE AND, IF INCONSISTENT WITHCLINICAL SIGNS AND SYMPTOMS OR NECESSARY FOR PATIENT MANAGEMENT, SHOULD BETESTED WITH DIFFERENT AUTHORIZED OR CLEARED MOLECULAR TESTS. NEGATIVE RESULTSDO NOT PRECLUDE SARS-CoV-2 INFECTION AND SHOULD NOT BE USED THE SOLE BASISFOR PATIENT MANAGEMENT DECISIONS. Name Value Range Interpretation Code Description Data Alma rce(s) Supporting Document(s) ID Date Data Source [id number] 01/08/2021 07:16:00 PM EDT [facility] Name Value Range Interpretation Code Description Data [facility](s) Supporting Document(s) COMPREHENSIVE METABOLIC PANEL [facility] COMPREHENSIVE METABOLIC PANEL Sodium [Moles/volume] in Serum or Plasma 132 mEq/L 134 - 153 L [facility] Potassium [Moles/volume] in Serum or Plasma 3.8 mEq/L 3.6 - 5.0 [facility] Chloride [Moles/volume] in Serum or Plasma 94 mEq/L 98 - 107 L [facility] Carbon dioxide, total [Moles/volume] in Serum or Plasma 25 MEQ/L 22 - 30 [facility] Glucose [Mass/volume] in Serum or Plasma 253 MG/DL 70 - 99 H [facility] BUN 25 MG/DL 7 - 21 H [facility] al Creatinine [Mass/volume] in Serum or Plasma 0.8 MG/DL 0.7 - 1.5 [facility] BUN/CREAT 31 8 - 27 H [facility] al Protein [Mass/volume] in Serum or Plasma 6.4 G/DL 6.3 - 8.2 [facility] Albumin [Mass/volume] in Serum or Plasma 4.1 G/DL 3.9 - 5.0 [facility] Globulin [Mass/volume] in Serum by calculation 2.3 GM/DL 2.4 - 3.2 L [facility] A/G RATIO 1.8 0.8 - 2.0 [facility] Calcium [Mass/volume] in Serum or Plasma 9.4 MG/DL 8.4 - 10.2 [facility] Bilirubin.total [Mass/volume] in Serum or Plasma <0.7 MG/DL 0.2 - 1.3 [facility] Alkaline phosphatase [Enzymatic activity/volume] in Serum or Plasma 137 U/L 38 - 126 H [facility] Aspartate aminotransferase [Enzymatic activity/volume] in Serum or Plasma 15 U/L 5 - 40 [facility] Alanine aminotransferase [Enzymatic activity/volume] in Seru m or Plasma 15 U/L 7 - 56 [facility] Anion gap 3 in Serum or Plasma 13.0 mmol/L 8.0 - 16.0 [facility] 75 [facility] >60 mL/min [facility] ital AFR AMER GFR >60 mL/min [facility] Male GFR In terprentation 20-49 yrs >60 mL/min Normal 50-59 yrs >56 mL/min Normal 60-69 yrs >49 mL/min Normal 70-79yrs >42 mL/min Normal 80 and above >35 mL/min Normal Female GFR Interpretation 20-39 yrs >60 mL/min Normal 40-49 yrs >58 mL/min Normal 50-59 yrs >51 mL/min Normal 60-69 yrs >45 mL/min Normal 70-79 yrs >39 mL/min Normal 80 and above >32 mL/min Normal ID Date Data Source [id number] 01/08/2021 07:14:00 PM EDT [facility] Name Value Range Interpretation Code Description Data Alma rce(s) Supporting Document(s) Thyrotropin [Units/volume] in Serum or Plasma by Detec tion limit <= 0.05 mIU/L 1.56 uIU/mL 0.47 - 5.01 [facility] ID Date Data Source [id number] 01/08/2021 07:13:00 PM EDT [facility] Name Value Range Interpretation Code Description Data Alma rce(s) Supporting Document(s) BNP 111 PG/ML 0 - 125 [facility] al ID Date Data Source [id number] 01/08/2021 07:13:00 PM EDT [facility] Name Value Range Interpretation Code Description Data Alma rce(s) Supporting Document(s) Creatine kinase [Enzymatic activity/volume] in Serum or Plasma 1 35 U/L 30 - 170 [facility] ID Date Data Source [id number] 01/08/2021 07:13:00 PM EDT [facility] Name Value Range Interpretation Code Description Data Alma rce(s) Supporting Document(s) Lipase [Enzymatic activity/volume] in Serum or Plasma 26 U/L 13 - 60 [facility] ID Date Data Source [id number] 01/08/2021 07:04:00 PM EDT [facility] Name Value Range Interpretation Code Description Data Alma rce(s) Supporting Document(s) [facility] concepción [facility] yellow NORMAL: Yellow [facility] CLARITY clear NORMAL: Clear [facility] Specific gravity of Urine by Test strip 1.025 1.001 - 1.030 [facility] pH 6 5 - 9 [facility] Glucose [Mass/volume] in Urine by Test strip 1000 NORMAL: Negat alden [facility] Bilirubin.total [Presence] in Urine by Test strip NEG NORMAL: Negative [facility] Ketones [Presence] in Urine by Test strip 5 NORMAL: Negative [facility] Protein [Mass/volume] in Urine by Test strip NEG NORMAL: Negat [facility] Nitrite [Presence] in Urine by Test strip NEG NORMAL: Negative [facility] BLOOD NEG NORMAL: Negative [facility] Leukocyte esterase [Presence] in Urine by Test strip NEG CHRISTO L: Negative [facility] Urobilinogen [Mass/volume] in Urine by Test strip NOR less ellen n 1.0 mg/dL [facility] MICROSCOPIC Not Indicate [facility] ID Date Data Source [id number] 01/08/2021 06:53:00 PM EDT [facility] Name Value Range Interpretation Code Description Data Alma rce(s) Supporting Document(s) TROPONIN T <0.01 NG/ML 0.00 - 0.10 [facility] ospital TROPONIN T0.1 ng/ml Recommended as the c linical threshold value forTroponin T. ID Date Data Source [id number] 01/08/2021 06:44:00 PM EDT [facility] Name Value Range Interpretation Code Description Data Alma rce(s) Supporting Document(s) Prothrombin time (PT) 13.5 SECONDS 11.0 - 15.5 [facility] INR in Platelet poor plasma by Coagulation assay 0.98 0.93 - 1. 23 [facility] aPTT in Blood by Coagulation assay 33.1 SECONDS 24.8 - 36.7 [facility] \\BLDo\\INR INTERPRETATION\\BLDx\\ Therapeutic range for Coumadin and related oral anticoagulants. - International Normalized Ratio (INR): 2.0 - 3.0 for Venous Thrombosis, Pulmonary Embolus, Tissue heart valves, Acute CA Atrial Fibrillation, Valvular heart disease and recurrent Systemic Embolism. - International Normalized Ratio (INR): 2.5 - 3.5 for Mechanical Prosthetic valve. ID Date Data Source [id number] 01/08/2021 06:38:00 PM EDT [facility] Name Value Range Interpretation Code Description Data Alma rce(s) Supporting Document(s) CBC W/AUTOMATED DIFF [facility] COMPLETE BLOOD COUNT Leukocytes [#/volume] in Blood by Automated count 7.2 10^3/uL 4.2 - 1 1.0 [facility] Erythrocytes [#/volume] in Blood by Automated count 5.11 10^6/uL 4. 50 - 6.30 [facility] Hemoglobin [Mass/volume] in Blood 15.1 g/dL 14.0 - 16.0 [facility] Hematocrit [Volume Fraction] of Blood by Automated count 43.6 % 4 1.0 - 51.0 [facility] Erythrocyte mean corpuscular volume [Entitic volume] by Auto mated count 85.3 fL 80.0 - 94.0 [facility] Erythrocyte mean corpuscular hemoglobin [Entitic mass] by Automated count 29.5 pg 27.0 - 34.0 [facility] Erythrocyte mean corpuscular hemoglobin concentration [Mass/volume] by Automated count 34.6 g/dL 31.0 - 36.0 [facility] Erythrocyte distribution width [Ratio] by Automated count 13.2 % 11.5 - 14.8 [facility] Platelets [#/volume] in Blood by Automated count 289 10^3/uL 150 - 45 0 [facility] Platelet mean volume [Entitic volume] in Blood by Automated count 9.2 fL 7.4 - 10.4 [facility] Neutrophils/100 leukocytes in Blood by Automated count 66.1 % 37. 0 - 80.0 [facility] Lymphocytes/100 leukocytes in Blood by Manual count 22.0 % 25.0 - 40.0 L [facility] Monocytes/100 leukocytes in Blood by Automated count 9.5 % 3.0 - 8.0 H [facility] Eosinophils/100 leukocytes in Blood by Automated count 1.4 % 0.0 - 7.0 [facility] Basophils/100 leukocytes in Blood by Automated count 0.7 % 0.0 - 2.0 [facility] %IG 0.3 % 0.0 - 0.0 [facility] %NRBC 0.0 % 0.0 - 0.0 [facility] al Neutrophils [#/volume] in Blood by Automated count 4.79 10^3/uL 2.00 - 6.90 [facility] Lymphocytes [#/volume] in Blood by Automated count 1.59 10^3/uL 0.60 - 3.40 [facility] Monocytes [#/volume] in Blood by Automated count 0.69 10^3/uL 0.00 - 0.90 [facility] Eosinophils [#/volume] in Blood by Automated count 0.10 10^3/uL 0.00 - 0.70 [facility] Basophils [#/volume] in Blood by Automated count 0.05 10^3/uL 0.00 - 0.20 [facility] #IG 0.02 10^3/uL 0.00 - 0.10 [facility]spital #NRBC 0.00 10^3/uL 0.00 - 0.00 [facility] MANUAL DIFF NOT INDICATED [facility] RBC MORPH NOT INDICATED [facility] spital ID Date Data Source [id number] 10/25/2020 06:06:00 AM EST [facility] Name Value Range Interpretation Code Description Data Alma rce(s) Supporting Document(s) :PrThr:Pt:Respiratory:Ord:Probe.amp.tar Negative [facility] This lab was ordered by [facility] in Lab Site and reported by [facility]. ID Date Data Source [id number] 10/26/2020 04:41:00 PM EST [facility] Name Value Range Interpretation Code Description Data Alma rce(s) Supporting Document(s) CRSP SARS-CoV-2 (RT)-PCR Assay Negative Negative N ormal (applies to non-numeric results) [facility] The [place].S[place] FDA has made th is test available under anemergency access mechanism called Emergency Use Authorization (EUA). TheEUA is supported by the quarrying specialist of Health and Human Services (HHSs)declaration that circumstances exist to justify the emergency use of invitro diagnostics (IVDs) for the detection and/or diagnosis of the virusthat causes COVID-19.Test performed at [facility] located at [address] [address]. First Test No [facility] Employed in healthcare No [facility] Symptomatic as defined by CDC No [facility] Date of Symptom Onset n/a [facility] Hospitalized No [facility] lt System Resident in a congregate care setting Yes [facility] No [facility] Intensive Care No [facility] The above 9 analytes were performed by [address] [address] ID Date Data Source [id number] 10/20/2020 07:00:00 AM EST [facility] Name Value Range Interpretation Code Description Data Alma rce(s) Supporting Document(s) :PrThr:Pt:Respiratory:Ord:Probe.amp.tar Negative [facility] This lab was ordered by [facility] in Lab Site and reported by [facility]. ID Date Data Source [id number] 10/20/2020 04:21:00 PM EST [facility] Name Value Range Interpretation Code Description Data Alma rce(s) Supporting Document(s) CRSP SARS-CoV-2 (RT)-PCR Assay Negative Negative N ormal (applies to non-numeric results) [facility] The [place] ([place].S[place] FDA has made th is test available under anemergency access mechanism called Emergency Use Authorization (EUA). TheEUA is supported by the quarrying specialist of Health and Human Services (HHSs)declaration that circumstances exist to justify the emergency use of invitro diagnostics (IVDs) for the detection and/or diagnosis of the virusthat causes COVID-19.Test performed at [facility] located at [facility], [address] [place] [address]. First Test No [facility] Employed in healthcare No [facility] Symptomatic as defined by CDC No [facility] Resident in a congregate care setting Yes [facility] No [facility] Intensive Care No [facility] The above 8 analytes were performed by [facility] [place] [address] ID Date Data Source [id number] 10/17/2020 12:29:00 PM EST [facility] Name Value Range Interpretation Code Description Data Alma rce(s) Supporting Document(s) AST 13 IU/L 15-37 Below low normal [facility] Sulfasalazine and sulfapyridine have the potential to falsely depressAspartate Aminotransferase results. Baseline values before medication administration are recommended. ALT 20 IU/L 16-61 Normal (applies to non-numeric resul ts) [facility] Sulfasalazine and sulfapyridine have the potential to falsely depressAlanine Aminotransferase results. Baseline values before medication administration are recommended. Alkaline Phosphatase 119 mIU/ml 50-136 Normal (applies to n on-numeric results) [facility] Total Bilirubin 0.50 mg/dl 0.20-1.00 Normal (applies to non-numeric results) [facility] Blood Urea Nitrogen 22 mg/dl 7-18 Above high normal [facility] Creatinine 0.71 mg/dl 0.67-1.17 Normal (applies to non-numeric resul ts) [facility] N-Acetylcysteine (NAC) and Metamizole caballero ve the potential to falselydepress Creatinine results. Baseline values before medication adminstration are recommended. Patients undergoing treatment with phenindione will have falselydepressed results. Patients on phenindione therapy should be tested with an alternativeCREA method.Toxic levels of acetaminophen may lead to falsely depressed results forpatient samples. Glomerular Filtration Rate >90.00 mL/min/1.73m2 [facility] GFR Reference Ranges:Normal Function or Mild Renal Disease,if clinically at risk:>or= 60Moderately decreased:30 - 59Severely decreased:15 - 29Renal Failure:<15 Please note that the MDRD equation requires an additional adjustment forAfrican-Americans (multiply the GFR result by 1.210).Glomarular Filtration Rate (GFR) is estimated based on the MDRDequation, which assumes a steady state for creatinine (Carrie Int Med 139/2 137-149, 2003), as recommended by the NationalKidney Disease Education Program in conjunction with the National Institutes of Health and the National KidneyFoundation. The [place] method used in calculating this result is traceable to IDMS standards. Glucose 158 mg/dl 70-110 Above high normal [facility] Sulfasalazine has the potential to false ly depress Glucose results. Sulfapyridine has the potential to falsely elevate Glucose results. Baseline values before medication administration are recommended. Calcium 9.4 mg/dl 8.5-10.1 Normal (applies to non-numeric resul ts) [facility] Total Protein 6.6 g/dl 6.4-8.2 Normal (applies to non-numeric re sults) [facility] Albumin 3.6 g/dl 3.4-5.0 Normal (applies to non-numeric resul ts) [facility] Sodium 133 mEq/L 136-145 Below low normal [facility] Potassium 4.3 mEq/L 3.5-5.1 Normal (applies to non-numeric resul ts) [facility] Chloride 98.0 mEq/L 98.0-107.0 Normal (applies to non-numeric resul ts) [facility] Carbon Dioxide 28.6 mMol/L 21.0-32.0 Normal (applies to non-numeric results) [facility] Anion Gap 10.7 7.0-15.0 Normal (applies to non-numeric resul ts) [facility] The above 16 analytes were performed by [facility] [id number] [facility] [id number],[place] [address] ID Date Data Source [id number] 10/17/2020 12:12:00 PM EST [facility] Name Value Range Interpretation Code Description Data Alma rce(s) Supporting Document(s) WBC 7.33 x1000/ul 4.80-10.00 Normal (applies to non-numeric re sults) [facility] RBC 5.20 x1Mil/ul 4.70-6.10 Normal (applies to non-numeric re sults) [facility] Hemoglobin 15.0 g/dl 14.0-18.0 Normal (applies to non-numeric resul ts) [facility] Hematocrit 45.4 % 42.0-52.0 Normal (applies to non-numeric resul ts) [facility] MCV 87.3 fL 80.0-94.0 Normal (applies to non-numeric resul ts) [facility] MCH 28.8 pg 27.0-31.0 Normal (applies to non-numeric resul ts) [facility] MCHC 33.0 g/dl 32.2-37.0 Normal (applies to non-numeric resul ts) [facility] RDW 13.3 % 11.5-14.5 Normal (applies to non-numeric resul ts) [facility] Platelet Count 269 x1000/ul 130-400 Normal (applies to non-numeric results) [facility] MPV 9.9 fL 9.4-12.4 Normal (applies to non-numeric resul ts) [facility] Neutrophils 70.7 % 40.0-74.0 Normal (applies to non-numeric resu lts) [facility] Lymphocytes 19.4 % 19.0-48.0 Normal (applies to non-numeric resu lts) [facility] Monocytes 7.1 % 3.4-9.0 Normal (applies to non-numeric resul ts) [facility] Eosinophils 1.5 % 0.0-7.0 Normal (applies to non-numeric resu lts) [facility] Basophils 1.0 % 0.0-2.0 Normal (applies to non-numeric resul ts) [facility] Immature Granulocytes 0.3 % 0.0-0.5 Normal (applies to non-nu meric results) [facility] Nucleated RBCs 0.00 % 0.00-0.20 Normal (applies to non-numeric r esults) [facility] Abs. Neutrophils 5.19 x1000/ul 1.92-8.31 Normal (applies to non-numeric results) [facility] Abs. Lymphocyte 1.42 x1000/ul 1.20-3.70 Normal (applies to non-n umeric results) [facility] Abs. Monocytes 0.52 x1000/ul 0.14-0.97 Normal (applies to non-nu meric results) [facility] Abs. Eosinophils 0.11 x1000/ul 0.00-0.76 Normal (applie s to non-numeric results) [facility] Abs. Basophils 0.07 x1000/ul 0.00-0.22 Normal (applies to non-n umeric results) [facility] Abs. Immature Gran. 0.02 x1000/ul 0.00-0.02 Normal (appl ies to non-numeric results) [facility] Abs. Nucleated RBCs 0.00 x1000/ul 0.00-0.02 Normal (appl ies to non-numeric results) [facility] The above 24 analytes were performed by [facility] [address] [place] [address],[facility]#: [id number],[place] [id number] ID Date Data Source [id number] 10/17/2020 12:51:00 PM EST [facility] Name Value Range Interpretation Code Description Data Alma rce(s) Supporting Document(s) Hemoglobin A1C 8.4 % 0.0-5.6 Above high normal [facility] Attention! Effective: 09/01/2019Please n ote a change in the reference range for Hemoglobin A1C testing.Previous Reference Range: 4.2-6.3New Reference Range: Normal: Less than 5.7% Pre-Diabetes: 5.7 - 6.4% Diabetes: Greater than 6.5%The above 1 analytes were performed by [facility] [address] [place] [address],[facility] [id number],[place] [address] ID Date Data Source [id number] 10/19/2020 07:28:00 PM EST [facility] Name Value Range Interpretation Code Description Data Alma rce(s) Supporting Document(s) SARS-CoV-2 & Flu A/B Specimen Source: Nasopharynx [facility] Patient Ethnicity: Unknown [facility] ADDITIONAL INFORMATIO N This PCR test is performed using the archie SARS-CoV-2 andInfluenza A/B assay ([employer] on Ricebook0 / 8800 Systems, and it has received EmergencyUse Authorization (EUA) by the U.S. Food and DrugAdministration.Fact sheets for this Emergency Use Authorization (EUA)assay can be found at the following links:https://www.fda.gov/media/621994/download for HealthcareProvidershttps://www.fda.gov/media/605636/download for PatientsTest Performed by:[facility] [place] [id number] Director: Nicolas Ann M.D. Ph.D.; CLIA# [id number] Patient Race: Unknown [facility] SARS CoV-2 RNA PCR Undetected Undetected Normal (appli es to non-numeric results) [facility] SARS-CoV-2 RNA absent. This result does not rule outCOVID-19 in the patient, as the sensitivity of the testdepends on the timing of the specimen collection and thequality of the specimen. Result should be correlated withpatient's history and clinical presentation. Influenza A RNA PCR Undetected Undetected Normal (appl ies to non-numeric results) [facility] Influenza A RNA absent. Influenza B RNA PCR Undetected Undetected Normal (appl ies to non-numeric results) [facility] Influenza B RNA absent.The above 6 jayashree josias were performed by [facility] ([id number]) ID Date Data Source [id number] 10/10/2020 03:00:00 PM EST [facility] Name Value Range Interpretation Code Description Data Alma rce(s) Supporting Document(s) :PrThr:Pt:Respiratory:Ord:Probe.amp.tar Negative [facility] This lab was ordered by [facility] in Lab Site and reported by [facility]. ID Date Data Source [id number] 10/11/2020 05:01:00 PM EST [facility] Name Value Range Interpretation Code Description Data Alma rce(s) Supporting Document(s) CRSP SARS-CoV-2 (RT)-PCR Assay Negative Negative N ormal (applies to non-numeric results) [facility] The [place] (U.S.) FDA has made th is test available under anemergency access mechanism called Emergency Use Authorization (EUA). TheEUA is supported by the quarrying specialist of Health and Human Services (HHSs)declaration that circumstances exist to justify the emergency use of invitro diagnostics (IVDs) for the detection and/or diagnosis of the virusthat causes COVID-19.Test performed at [facility] [place] [address]. First Test No [facility] Employed in healthcare No [facility] Symptomatic as defined by CDC No [facility] Hospitalized No [facility] lt System Resident in a congregate care setting Yes [facility] No [facility] Intensive Care No [facility] The above 8 [place] [address] ID Date Data Source [id number] 10/12/2020 02:47:00 PM EST [facility] Name Value Range Interpretation Code Description Data Alma rce(s) Supporting Document(s) SARS-CoV-2 & Flu A/B Specimen Source: Nasopharynx [facility] Patient Ethnicity: Unknown [facility] ADDITIONAL INFORMATIO N This PCR test is performed using the archie SARS-CoV-2 andInfluenza A/B assay ([employer] on Ricebook0 / [employer]00 Systems, and it has received EmergencyUse Authorization (EUA) by the U.S. Food and DrugAdministration.Fact sheets for this Emergency Use Authorization (EUA)assay can be found at the following links:https://www.fda.gov/media/824801/download for HealthcareProvidershttps://www.fda.gov/media/191365/download for PatientsTest Performed by:[address] [address]Kdj Director: Nicolas Ann M.D. Ph.D.; CLIA# [id number] Patient Race: Unknown [facility] SARS CoV-2 RNA PCR Undetected Undetected Normal (appli es to non-numeric results) [facility] SARS-CoV-2 RNA absent. This result does not rule outCOVID-19 in the patient, as the sensitivity of the testdepends on the timing of the specimen collection and thequality of the specimen. Result should be correlated withpatient's history and clinical presentation. Influenza A RNA PCR Undetected Undetected Normal (appl ies to non-numeric results) [facility] Influenza A RNA absent. Influenza B RNA PCR Undetected Undetected Normal (appl ies to non-numeric results) [facility] Influenza B RNA absent.The above 6 jayashree josias were performed by [facility] ([id number]) ID Date Data Source [id number] 10/05/2020 02:51:00 PM EST [facility] Name Value Range Interpretation Code Description Data Alma rce(s) Supporting Document(s) CRSP SARS-CoV-2 (RT)-PCR Assay Negative Negative N ormal (applies to non-numeric results) [facility] The [place] (U.S.) FDA has made th is test available under anemergency access mechanism called Emergency Use Authorization (EUA). TheEUA is supported by the quarrying specialist of Health and Human Services (HHSs)declaration that circumstances exist to justify the emergency use of invitro diagnostics (IVDs) for the detection and/or diagnosis of the virusthat causes COVID-19.Test performed at [facility] located at [facility], [address] [place] [address]. First Test No [facility] Employed in healthcare No [facility] Symptomatic as defined by CDC No [facility] Resident in a congregate care setting Yes [facility] No [facility] Intensive Care No [facility] The above 8 analytes were performed by [facility] [place] [address] ID Date Data Source [id number] 10/03/2020 09:00:03 AM EST [facility] Name Value Range Interpretation Code Description Data Alma rce(s) Supporting Document(s) EKG [facility] [id number]ktjl8S6E4jOAhB8HsgYNri5udF5FzT4SyFSSfYRNSCS6MiJBn jb2 [file] rS06nj1oQLkV07f1sQF5F1OkE3AsoG1C+FER+s5Me2jdD1Z4ks/4VkZW9kcKZWrQT39qacKIk+05L/NAPKIN MACHINE OPERATOR pP7p3+W9IqmhySgMNkERwq1UdISINJvhjRfq2JdccC fhrwk8CEi7Tw5qrj3LeAPteu4AGlAvQHQ3p8XVej2Vbc0HdGOa0Rpr0kKfjXxaUj5RTigvGcp8ttnYfm Bh1/BbetrmRguhMlIOobD4MVPVUoEUTmrWxiVLdwjZJD/1uDwG3HEKe/SVoplopuQEoSwFjDLiRC0ZDI v0ARZ0YbbXpBd2gOqaD0RuJeeqHdXchg1jUmNjNxzR cHCGxSSFC1S1aGgNnPlpznoIVYp6nAADQ3H4W68OD/nsbm9CPpGMKsvnRtofZkbf+vg4XH9Ax7aEX/8U nG2dabErQzmt8Tw8MNXW+raojZVIQI1vnfB4aYixziyDV/u9zl5nee0s0ukNu/XpN+1nT/ZzP5z8E+Yl Pv4V5p6XaidVP/u89KkZT+4ncwAa5AxsX8JxLGEBbq YYYPwWyYlzw+4F6dV5J7I8bCSbrEVpLPd5ZQBYC1NVfX9I0ESFZ0OeiEDE+Q4VYLxFZ6nEFRGnKl4Ilc gJtcknPAkTw+7xZd8SCWFGH/+ME0vFTGVo5NhZepp4DHYHo5PSMi7ET8N13A/ErZEy5ya7N2f255SWyT 0mwtuxZ8mAWTGb5aRx0FKQUV5rk9aO0g7KC7mzWw4q HWDdi9Ce3kg8uPn5BkFg5q+k9e/tAwAnW8uXvwDG2ZrtFw41xBvTfbeSj+x3dzhW9GPH53IFgZ6mZZmb UcmqCYQzOoJIL/EDeMOuGvZFguSVPgxCWmafIWEfccpVlQElwyJs4Ik5yW10rgdnoKnUSAme5kQ1WOXY MiDx6W9VN8H8LbWggzEdojFfmnTd/X1zRUqvPw7zZO yPRroAJ5jjs7M9qid9XwhxXPl5eURMxatJCgLKwebci+s53PeDKizjJkjbjqJ6BcBvfx6G/ZtpX4/DNI 6qe3dpPIloQjmuLcwycxR//JNh3fW/Zozn5HviyK/3hjX5LG4H6n+k+S+s8W/hGnWFhwTkjQ6tDJ/4lt jb4g3DDviEndIs4+2lDOcywuZUW87qsf/eQcmnEFRA 51njHzrhAwuJQPb5grhmUTrI9X3gGZo+aoHrlVhypH2tp+dm3Xry2L+dm7E9wbjIP/+aZ4lzpiH+fQbD zqzTkOsHfoZ4/9wX+y78l/ssx5Aom+E+AcmMQ8BKEUas22YWtIqsyAfLhHEEJtEu2D6vLi8GMnUoM5RC oqp3nbYs4KCySiW4ZO9CFFBVRx1y/3dP/ew3/iWKif 9Vqm8e81ay/v6f69p/y1juCLAcwd75Y/9nT/3pP/7Ek/z4WNehjaO/2ZglbGu1SKwELH2Vew5Pn4qwlo /I2aPl/eSHm7qUlYq25La0ccgzLyjcuvjrd6+qsOi4qpBki4RG/wXRn2lOfAh19Lu6zGrOHVPnaEocYL k9e8QNdxIXmmLMLm6Xtn/rPz+Se8aY/ag7drFe6j2Z ZYtXGQzIsg0l2RTTQuaKwE47/Y++5yZHz+yR7x+SfPBJ9/8izx+SfPZzz/xK9C/8lfk/5Xqae7Z+OF/p ATSN2xdB5Lc4BSQqHL51xinnjlHT1M1KQZxnmrlPYvv7yEATcS5MREpsIdV/b4sof96lxjVu5usfAWCk p2ljmekSFinTaND5quZu6fHK/hzQS+iFFr7ydRhqtg 4+S6enHOBqOfkMJiPmIt5XXRtSvVZuYHbenXigRZkQ6ghWbYX0ZWDEAAvcDlluYXV052ALOMoUU+msDK Rkc7mQG++EsNpLpKVNrf0RIHdTTTdcL1OEFRj/klnyKvxfaj1F7KD4yckT1ePYjZRVSmpTgwWqejPMQR YDnFvdps78UOeT9qVigmEnOJ3PDWI5VseTXynAsEQp 1ktByxsWWVPPsC0qrGd3fPbKZwkRcNjIlIDkJKC0pXUFGr/pZvOKx15au9lmthiJG+a/6s6CQcV5r60y PTbPbtucowK1c25ISKigCSEu54SRRvjq8tcHOYy89RcaQ7Amcra7aDCoexZd9OwcsNUcF4w0xIkpdUKF x9Pujhn5mVNmNaQsw05wc3EbDWnBIFU009bzTtR1Ak +HiKG2oe7ON5wCEMvR12xBmbPr4nJXFOOO1d6MJofFmNs4wEZuGB5Mwn9frXejx+i2Uwuzxr7GmQbhcv P+nuREQrldI1KKuKdnY3AH9n0Slsq+PVhDdPAEINuklCfBa+qDBvXUm+hkZ7N3t0PwH7tUyjFPRa/SxJ I0eTb3L8kvS0JAw/O9FXtnRzdEHXUIJwlGXTxOPub4 6fCVQX9ttP7ArepWg3DD604Bk9z37msqCoO8NK/Lhd6WhzozuLb2duLE9MH3jCr65fSJHt3GRVhWRlRA urpussyibn4JXLdnRcGrcdgYwKRbe0osxrS4623QQGieo0DROpG/TAuIiMYHRELG10UzDFnAvna68HXQ 3Uu3EeTpwz0T64LeS0twL6vXMID18Y9JNN6/Fqwm1D UhD6vuRw6Df2c2zxR/wIzA4ps21wJZG27YXR7Rc6LURdG62To6uNxxYxnOD+xysGiE/+KqyBzN+PNZAZ CxkLjUmUUYWF0FN0g1KEPuMxqLDZX6nuPBSLnSAkjoDH2wZOUjXZ4Dfyjjuu7HYUU+R49JuGj4VLG29Z uOtJjS++mnCOU+fb0epKUazFjn4f4/he6D+DTMaqEj Xk/z+xfmJoLxPL3sWynl6WfiethEZ+2/jv/qt3mCZt2i8tNfwiAHdJGuW3/pPbkkMRbYCH34Kz7Gt7PN f5VODFSErKMGN1d1Gr5IHuia456CGpXKzqdLu6Os00pknxOc1R22/OxOgjh99dKZVG/Wtghj0au47Syn 72YrxQLbkmnfaaeO8/bPxhbp/mw8PjMBFKxfhfbD7W RyGGsstWsXQZsnmc7l+1vRYLd2/Y+zJKX8nzE8epzFKxD+t/dJzUUIxYnI8KdjeBbVWIDkXuErLTnENv yySs6NXYWy7xKaMGFKr1/vSGmOR9fMF4P8Aowb6oa4tZD4n1O9k/PvmoiJcelxTVfSvaC3m/Zaa2HEXU 2czTxFVM91O+U/Hebrew/5lseFvLf+ax+zwftq5blMDqF2 ttdhHevX0SuJdZD/xKkyUdHFI8kgOp8F0PTlKgr0pKL3ysEHNhqHq2Ru0S5rQEMwamirSUwpH3tgOEbE jLfz5AhAPj9qTTKzFcjP/wiluL12Ag4HVuJcYmAUJBng85Tou0fEGmGKIsSdnfFHjTFPaIlMN/M/jBah gpNCHb+v7jP+8//vNO/4sdGE7LuGXHw1/Y+yWcj2xS A5Tn8gr/kAkFvaQPbbdUamUjSKhcR4RsFnVXfs1/bJuev+U/k/WJgJ1AzLZwk4fbMe3NqNfLL/oz2Xs7 266rF6G4G0w68Gp05VJG6CldqBsOWEQd5brAGkzGAWyGLU7XUSj/JCL6swYJytDBfkncQWSZ2ZnSG9BQ qnjul5XFs/z26Ef3nwfkwVobXu2F/A3Sn/q10p+3Qg twW5NcdsnFd+ptyn/elDvYo193BZK/ZKSml3lDAm7p3S+VKxhOcrPdSeMytJTv121XLxFauAY53roQN8 XQth84TXrG7Gqq1x+jf082/yP431wF07pUlOs8Mfkhd19jsp51dO3cD2R+3K7gX5T3GcU//0bfz5Lrmj cPo3/xEpeAP2t0z+jfk91/4JtN7wIh/EKoz9gukM5x a39Yt/bMGprJhrWnamgeNv+r6XwErRHJNcdV/zys/WHYp+4u/6elgN3sNgkEUBIYfQRyu1aAq+sqqlHI 7ch4W5S+n02UylWe2MoPG9f1t2jwxkrkkKsv3mgDr49Y/anfJ/5MCGwZFj6rb2/S1AoX9ITQ6n/bzqQ/ k6lGDE+W+uCW9k7d/GHzsl+UNTQtNKHYH/ucf+xz/r YF1H2uo34zlj8WcymEnOSuG6HWNOlITLntxU9qk16F4oefMAQ5sm8h3Ojv/zn+6M+soZnsdYuU/xwKKm iXs/0Mpp92WZCvICMu9pUzCBkCgH4JBOK5I5HmmkekrSga+rUQs3wXBhZoKQDkXXvjYP9geMo0EpJ0z5 KBpD+8wdc72K4b53GQW1Wes17l/akamoehP/N71ODY BotWv3C+z/dSKuTGoLnrRBNPzPL8JSQEfYRFPmBfagJ2l7NmIEcvUy4LTqGFmI6/5IbT5FnAvC/PGpqv fRmnMsbdhwyiZ1q6Ug/cVGvfQfkMtHhSvYbsT6I0/6o6lraSOZdcMv0v9Z+m1p1fbu+fP/qKCGO8Q6vq bnFUjuXk8aNazrlEn+rM8Ye5/dENTy2cRv/05/NHf6 kFrkJnxktLWknXljVndwcmtd3XaQz/JkN/xmzAFLp2qRab9tZChp/JEOzeyT0w/c+xsM/Bgj68zpUEBV 1oKXTkvQE5tz1crVYPv+j9fNsxoo0qzJvx4L6WrimnsX7G/8y3if/MN43/TCtYf+xT/jMZ/zF67JSher 75eA33/ppNNl6dkmxvhDYvbviw56m5lz9lx2cna/7v l/5Mdj/Oxh/2TGfzD/W5GxPSDCet5iM6X/1aTu75N61IR5c4DNR4nADi4H/+hiZEmqWMTMicSxGYUGQb TAwVumEKowKwVgBqY4gJlcUonugaaN7bd5UR00o+sDBHNl9Pa5GkfDcljCUPILSpvrVuBUOSew/rBjke CGFDFm4vUNC6wjFELdAxVpRHfXpHPYJg4l+U45HwA+ HjUfrVHTJMLhAMTZZPslqiHNrVn9vplqGkghTBOpVAQLnHFesmebookslNLS44hoR4sNStADq/6meT5S FVxSM9ltpk4sbampkjg8xf8z67rvVTsEDluvR7xITRaVeAKR3MraYK5vKDRPgMdzRjFjJjJI5ZobiGiw evuYv0M9MJxc0ZCOHt2yUXNEYexMuPEWjTSUKXZf7Q UMEhlliekAJlUiGioAhJ+tlgWBvVTQoiHz8aZwht0hpWQjyAxqck2VTH6hYSJKmEt7W4zPxqMfwzsBzC CPUNf8liaxGsb0q/sdklql3EwXcC4SQ6/8bIYpX/drnarjivrucrddtTZJrCcNIb37YDEeahKpIGQlO/ 9XzysovNOS3idtTRg1b5f51T/JyAM2jagHVYu7ev2w DGBbuNIgsINEdlgBYTGwKoTGsDsnkzWHMDHRtqOOMGWqhxQm9LN2xGPGoSnSO+2oeoYbpwFzAC6KlPgX TogDpt+BNLDogyoGcoNEMxTSIQCIAkFWWAiIQ76m151oR4aSBOLIBXLxDugIDJKLRghFzeQedWhcRg0c 6n10dcHoXIsTDOW0rprYdRR3V3ipqdKfB6n4d8fPNV YDiJRN/a+01i+n9DkqeVmpM02boIGwxF6r+xVcQ3pfky+oq3GQXmCdSwsDfSdJc65FwoEuMUg4b78sVC O9iggNKfwEjIAyCS/7aC4DY3Kv3uG/2xygftxFFGa0ZxBS8rTFmjNzPHDcoWIggBi8RptuiiTqEagXZ9 ORsLoQGMPAOtHB0a15yfSSwg99LYYnn1oOC9aQ65fu O7XW1V/0kNs2iwGn+wQYlWv5fI8poFf3mDjR/1MEYlrqXOe4E7EzaVXNa4MDXhRw6YxWpO/cSWiJTV/D ibIUbmXWdWeOUeMWHfZKetbg9SI8oGcVht1pBE7dMW5IoGyLU6AwYWSXhLY55sZBm2K8VOEUZ9j5Ddkd KrIE58nIK99Yowr1aTCSuxy2rw90h9ryxQLwTy1/eE z3HxNid7YeFLUYXfJWqUpb588IBMJw0WckDUiERjhkwB9RJesbPy3x86FWUV/ir5xJhZIREaVlVc5WFS mn5LoWJzWIKIxmDVmXvUPOHQ4cUtMquL8C+MAKapStyqjnYmXQoqQrRM8rTm8kM7yyJ8iZe22QZ5O81v u4lkmm3chdi7AwTFZ27NgKSnSPU+LTc2JQfy8++Mf0 sS9pab+z04i7CX/oX58Eve/yC8irSm0P/OR7ueRpyA5scN0AKhaxuhFoeMrLf8he9VyYyEmcWYzLrPFy DmxjL41oJgv9x2o5N+PJhob4fS51C5198lMHTMjq34S7JujYZfKyz+qo4BC+3plW/4O154Pqul2w4Ygu ltJm4flMVbLYRe06U5PQ+mH4d/SxL+fvu3mAbQQ4kI aGN5EkXoh8Q1Um/IfluawfLWZrxFroCyXl7cfqpDfN2PnFsDtaIwwremcZ2dAReGdbsToRam3OoPuMjX PHpk9qn0xhXzli2U1HbJ5UN28uleprUzdjRCymz96vcr1OVMMuU6HEkEnpi1SktkjSc+w5KfHTI/JdlG 0G+7RscB08O/6QnQb/eEeyfXFfNNeI3DbJXYHov4WM cTvJwKlOC6F4+tWipPzafyjjLlVeX2+m21z/rt+u12/eokebahmetrvr6jOlx8nuZLdhM3bW4A8cMl61 lyEvotyTaCfkvSnHQnod+VPOgl87NFD7iRyI1LlcY5jkBv7/jZKu+pwNb8G8SdZW25bYPL6v9zHXkYSy yRTuMhYv304kg1weDmxmzx0JIYoTGbTwjJ6tL9s/Wb emso0xL3+Ixzq7oBkT3kbkf+FKs2Tm9dAB2fMdeBvgLdgFYXvkhGnkv2lq0IfgoipnIb5A9FFfQSuQ9E Mdke7jr3CMmSWX5dcYf1SInK2kxfawcUWXtYe8OhYi5Lfayco0MQ2rc04JAIntbzGZ40qq7NlU2qWpZl 5yu4gweiPrSOPwnJl1wKmgjwJK1OjtE731Df6nbvkj 4BQnwxoImhu0rLIaAvn6uS99CI/hjj0FHl2r3s4Rj8DctcEHJ40kozXLo0+jwO/q7W1GWo6Uksqtr5ls 6Co78GTrjJgguTqaMDI+rIZ2/AuTTELpfRvl1qealfkrx78g5qBzy1u6yP/8Y46/Ti6vHtO3F4xAKoC3 PZpfxu5cLawJRpBSxan9El3ti112yntAvybfuV5p7x XI7+PKepXDCO8xMH/tCgSUOi2j9BAGsKGLkqdxZApBpqXPYbMECRWzwqBBkgtKoCMUoDcMKxwNoigY7s zCanN87vOn4Uy9HjbAgPPkvm+tWZo/cdp3Uuxo2/OGj7PRdIgXh8DxtEcdRkyJuu+Fx2D2aO2U1QinZo p3Qd2Wy0h9+q3+7H93NDllmAKdokuE7/2HameTn+/4 /f2YLRfYZMz1LMxIYWt/eUecwxnQjkYhWBtz7nt6KxW7tquza7mE0nNfFG120K+rh16r8rxS93/rBvVb rY/KKH4Tn56OWx2vYfc8KQrI6wpr4gPsn5FSbT/4jVvvwI1iAWZpZ5uNGFiMGZAQLROvZAbGp/7PXHPi enTDBroNgHh1Ao+bgDApOLhTBRWFE3XOYN+mNSWkN/ ANmx4JVgFGuseooYCefQEtCFTErVZGrX4WJCVSzzT6aKvyByIUUXRJLKHYZqkkLCyID6JlwWTMs+den/ 1pf7+v/9z6+kOw85U66l80U30Q8wB0j8IKyPDsByNAe+BWfBVfAtuA+ekowCn0t8c3d4l6Z3EBkoiccW q2v3e6q8R6C0ACyrbxhDj4w3y8J6L7R0DJtpbfnUw0 vrbm/v9c56pXW8x+446t5nfyymw7smpc/wnulevt4b72099Y6E7Egvsapqng7z70289n0794wQzR6rkT d8Gx4H/1+W0v4AuNABeXdmeqlkZlXhmEroNjbV24St0GMpNarB71L7jTr9n4O4ULanmkkJf1s9q2g4k7 T7IVodrzdXe9w4a5B9Y1N3EBcbkzhPq0h9h9W2S2B6 t+499d6bdzytx2eizg/x9d34kZP3e+437i001F6E8Vuufvswfb7o82666U0J9AusoindzeEF7in7W29M w6SqvM2MrHVLCnbU73A9wD33d4FEcVx2S79GL7WChMC8I+7QC13k1r0h9T1Z1SxdywcdCy7l9i5j5K9Z 7CkkjqBnLf2r9d2G5M4P9HgehxDhLm2y0i1cjwlit4 vrbm/j3j12uFL5l+364u9jqcnza8m2j80896R0JBknlcmuf0a8j66508K4TSyF9+yJm+Fu+DY8Dv6//4 fsoLXQL3kVC/XFXtDetSCO0bX5d7Fr6rQpGln/+d7OBe9Ca0vi7C96W5yplc4xCh6/T7FkoXtu6peBS1 aJ5/zwNPxTgAe/hnfhO/rG6S81S/0OHoafXngaXobf u/Au/E2ZSi2bviLhASc09MaY4U1COh4Mr7g4Pw0vthPpfx8g0wsNXctu78vp8D0F2/u0/zfayPfylJSL NNZL05sp25vw098x6o3dEMdJrA/I/BTr/2i4vWzDWR30mOYYcnmhqL/hXXiF/ZwKuueaK+xH+KIl8sTJ s7Hmv+5I570j/2DUfzFP7O++G/YTGcNiuf/ /6ou65Rs/7EZ6Gl+GwH+LpiGl9AOoE9SJOY+28h+GwH+YpMWuL9s413Vy4LosU7y0cfkG+hG/Dw3DYj/ SoSOorrhOvS0pMgL2e8c2C9md6Jw6/946IT/ms18edbg4+7qxkMeqan/08quTt9d+jKief/TxPxh/8sP Kaf/UxdVX1je2bCVe/s4ZWoz+sXOef/WRm9c9+sv7C Xk05v1n/nFfu1H6wT/AoL7rfWk/7yQzKn/2cTNI/nHmyP/vJTMOf/tcBfk4XoOg83Jq/0fxPx/+crWSn DcP/3Jpqwy66ex+3C30Cuf/z+Wc/N7mrw/8k/lgylqB7Owdlvc1/OyM3RqjJGg48rMB77tS6SzFK/uzn btMQMedm8P+a1F2n56NJ/yjrfPifzrsL/9MZ14f/UX 778D+d9xX+p5MpL/xPJ+Nj+J9O+4f/6Robf/bT2eIT/qdjz+F/OvYQ/qdjS+F/BjIm9E1kdh/hfxrvIv yZ036T/2m8l/A/jcmh8D+N9xL+p/Guw/802j/8T+DTkeeoUn4c7Cy/jbYN/8O7g11NI9p/EQ7/k7gZ7o Y/+1ElgfA/jXca/qdhD+F/GjYT/qcx8RP+R3lYw//Q NzO9axiQbYd2fda7/52SQiwiX79JfObz/flpw5laCa2yq8PaKhkZBPwJljz9840YZ+71a2LDn/qFG/3D 86B/Gjj6r/cw2nrxjqJ53/w1ZU56mp6Wy4+Eo/8Ts3jFI1P01BY82D/wOLu8c5S4U4q+Faith+Ee6Go//i u6Z/btM/t+mf2/XZbhjaYi6uh/650T/C3XD0X/H/ut E/D58/s/G9iCgl9/GmzIgpGz0gr/65Tf/c6B/h0j+36Z8b/WF3LmuS/4Q/udE/wt1w2A/3ay7Z47C/wm E/PBv6h/oakI0PV8jG+gd7Q/4F33C1RfwXk/0Ih/3ommE/wq/hsB/OR/1Yy7U87q9c2R+73On3uQK/r9 nPa/ybxe6ml71v0eQRrwE/wsNw2I/wNFz6+Ub/CO+D B/pHuBnuu/BteBgO+lEdmo8HwEpM/dn1r86b5D/6I6uRJ3ssSs5S/M/DOWU/lQFbKeKw1zR4uUVjx9a2 D1eN4oJpplPN/GtSJbYHlk3XXpDAlt9450Hc4smIWyryu1JptS/1cP5nP+RNhrCy9qkUpLf1GiD9Jqol 7hv+B+0US9/ZV7BjzimcBZvdw+uan/2MuqlIxBdIb4 RTi9RLGqj5R8kIB276lurwQib9OZwSca2V/xP6f+B/QkcN9A/VwS3APGJKIe/Ethwj1wR3G9obkokhl/ 1GeT21F2+D/qEdwv+lcXHDN4H9G/r6YHQYbmpGuisoEE+Rhipf2KUEK0PX9X/nXqfM72T+vhq60C1upu H+Ynafsr3TJggCK7nHND1MQIH/KDjBtdK4AHgn/3C0 efgf+nmP2JkMyqGywx5G87T/Kdm5QsvT//Be0D+8C/TPBIf+7N4vn4r/9I9w6B/oMk5T78w/RDtI/4BD /9CG6B/h0D86J/TE3eL0Pcn8T1dV/LG7fwSz1zYRblrnyzp7zGDjBCo9yxc82pWMflEoPyJh4BsE5jNK oYhlmjSH3cj0tDMh8/60sp+V0SiFgoyKE3T61nZ4ZH OxWKv+/UfA5X+eVuP3B/0T7/TB/zQ+72cc+vTqv54+DFf/5cSmm78e/ycJP0Y8EUhDpZhb/uu5a/z+3D V+f+3unQQ5R/tms950LhJZsKQbHni1t9K+5xk1fn/xL4u92Eu3Vz2VF//F+egfroP+Yo526G16VJ3W7H X4bYWr/3pm9V+Zvz881T/eeo54Su9bEaX2h6rPn6ji zR8+6L3GqjjdiPXuC/qH50T/YFfoH+GwH2wP/JXIzq9W/A20hXd5RguC/5F7Hg915Vg2j7AIz/Dsdf4y /C4Wc853C/3Dc6J/oM70e4FRj/Aw/NR/Ou8yzFddUS8U0xddqNA/oh0m+mr166S72rVmj7A/wstw2I/w Faith+EW6Gu+B3EfmSB1DoTClHD32RQodO6fA35sju8B f20Vo2mu6V/gefNsP/0L/SEqNc1O/yC4p1tbm23eu+Bx01w/89qLu5Y/NOM/wPNTtm+J8VG/Fn+B90yw z/Nnv4Vu0qpxfjFj6S1eq/g16a4X/LTmP8S5rmwp/Jzz/7oXLBDP+Atumvf69Qnr63YT1clf+ZWi9/Qy yphf5dMdgpbDbXF7O1w3L/8QvqA96R/gCp8wkW/0R/ NNE/YPSPcDMc/Nu4g1K7s68o/meDY/0u0ChZUm+fh/5ZLLGG/uGdon+u4tzm2eN/ChEI/fPweemfafpn on8Gn8+ibNz4L7fF//Cu0T/YavifTjuH/0EXzfA/9PsT/RP+ZKJ/sB/0D+8d/FObpk8wSBQV1oe6c3uP /9zg0D+8I83/RBva/M+U/ri0IP6Bb/ZDzeQZ/ifxDv yds8L/JG6GP/tJfBv+4VhftGk4X/da4X/QVyv8D/NRK/bPzcBHcL1PXew6ZxQ/aMMV/gctusL/8I5W+B /t68dwwFZjOgd1pW/LHyggx7ioiakV5zj/e0kxgk8lJmvJ/2q9TogVZvg/zyOeH0Qzn/+eP4kodvNE/7 Xu6r/W3Q1X/5YlUlv3i9H+NF9P53jlIoGbV/PP4Ga4 W74hshTxDvtTm6N/Cb+Gd+Gn+q+F/on/yEL/8R5DJ0QQ3XtJF9CVqyapiaye8Uj4C12itcWgtK47KdpP wzV+Xzb/s9A/4TcW+rbHgKV8V0C/Hj6P/gyAQNSa6Z2cAn5j79a1dJ4uI2i6/7O0/hXPaetfS/oHPAxj P+BpeBl+y2akf+L6pn8W+fgN7Chk/Bael77s8tB0Oj 79vPZreB/8on+Em+G+C9+Gh+E3ZU3N54Q1V6n/NEuawklnZoe4GahCm/28bRpeht+mmG7jorO/4Ga4r8 U21MC71u3xH38/0T8P+OVi823w178ZgH+5At/OPdfv6G8e+N1alZWx/mde4Fj/ivf7hv+Zg+9+9jOjv3 7D/6Bb3vA/VJx7w/+kjcuwz8PjvIP/dvje9/M/L7Wm 3s///AyB7/3q59wUcg/P/3xY15kMicPYq/hbUbx64G+oM/SG/1nhw9/yJ3EeRH8Wownuz1mA8J/m/NA/ +m7on+i7X/RP9GUv+offi/4Rvs+Y/WX+5wbH+F04xu+x37K99sd9+i/qFVm7H99UU/9xcoQqkBp2L/q+ F/2zwaF/UyF1ZBsv4fjd7U9M/fVSHkr7i6tY/0w+H2 d+4w3/Qx/1qc1Xj43qh4Ocl/gftNYb/kc4/A+66w3/gwZ4w/+fg850umrE/pYJ0N1kZKMO571eE+CY/+ G9M/8T72tr/gcc8z/utewwG4Qb/xNtvpn/EQ79E+2/0T/DzY53lh9qqsf7Hxa3t+fbw7Hs4qA/6KUd/g etuMP/8Bt3+B/00kb/RPvs8D+04Q7/Q/pvch4CuZL/ 8H53+B/sZKN/hUe6edU/Z0yx0T/yE8quh8FOm6r1fwW/wuds+P81vdu6r31/ER6Go/9qnF/zP/tehit+ Y6N/wn42+ky7Xy1UQ42ur6J86x+2zf9sm//ZNv+zR/Vf+6n+a6N/uI7N/2yb/9k2/7Nt/mfb/M+2+Z/9 OXzT5dvGsUkb0DdZ/uG9o3+Jw6C4Si6X39qo7K9a/Q NuRwvtVfFj2/BXCq1y2Z1ELL1T7jvBx087Fxong9ffk0HSV/cBv06OR0e1/hXtoPifaAeL/9jbK1aZ/S O8C6N/aToQa81L/7Mt/mdb/M+2+J+9zX5M/5sGS4p6E1prlLxnKjUgeXVLutn7qInxEWBr+ihSdtQuCw RqVytLaldrTrqT+oDccDhBLmccKqihCTDGp1woYoMG rK1sHe9yfixwHghFm1qXn0cDybt7vNn+GHylKhW0EYUXJL7PPAbR6swy/FKCLBI7g1abwivNkR09UT0Y TDCbFAyqD9O2V9u0xQmJz1Xc5Fx6PtufsHE7u4HywadkQ7clEUbUC7UbCEbSbloA+yf6P3PeI4bswOad C4InshWiVLX4sHKE/bjPZYW+VeEg9S1b9fQm8h4Ecr z68mVBfl7DzfT+a3V+djiu/Nh5ueiC0aGcGPvfrYDnjuXZkRilS0B9KlMoaNEw/ShE4WYgdhWpNm0JQS V0pJ/GowBem9LO0moGnm2utQCIUBSMZiEeRRL3wK8jJzGwuBOyJ8gqBmflRQFob3ANR3+JsmoXkurVkd NQmvUYMdupzkiiJ1iyB8zfstzeyQLC9ndFCZ6Fj3VX quOZ7WL/mybEWuRnk/JoF/Vkt8H7OEaFLVuvlzEASO5bC88gdVIhhFfOQcHqm1mViYqYBgk8hzkOzDNs hFofElorTwuxdevIcBJyS/bRil6790G0YElu1niIkIfXyd3rENfqyeDfu50RvvfoCdgl75DsvL5rggta EkLsNIWLGcmCay7UrAR1xO4P0dw9TuYhoruGe+bNNR Ngrbl/skuQYoO7xDQiQe7zEoop+UYI7MiSsTLRGNmMCwUxDmOGTLHFoCIAjgpWrAT3ZoEHfzAc/4RkZ0 g1fFRrYxSPqgxOIRR4RbQAFUfaxVn3A75yZ0fjqTm8yVPAvX8INlqJQFgzdsAdkvOF7CHlsyEqTAdD76 FDzdbxcjH93WLNoqahoXsEwDLOp/AaRblC2gJg72tD m/Y+CEFCE6H6hE+X7G/ZyRyaktORjg7mtFXGd60O4c3okafApt4asI/h2x6/9YmSy3EY81RSEAoFVM8Z XvRpzkQfHhbjwsg2A+Na0cRjo/1JIp8356/h1KtZabJQSrnRjlEq2ZDuP3l93a7/iosq8aFzq/3WXb91 12/d9Vt3/aA7tLUFcZWKw5XhuA4W55QUuSFuT/7tbH /oz3IL8a4f0/2YZd04souI2ykrINYS+5aQiNkvx6MAzq8VzAK7CfL5I+9ciXhdXlMW6189GnI1CdIG9h 2FAEWnz6QgHtYERMklLrJWEbj8PLPmN3I+32vmVp/8SaJr96mofAUe8cKw5241M/zb0o8L/7b0s8O/MY SHsaNY8V3ca8Y4XQHSXm/cyYoB2FVcjDD7AIB+SK3i ZMUC2L3TA85S3Rw1oOODKBIZELbEKUVjiBlL8UW9DBKo4e5pwPKsVOQCdXEw8YtR1sz7AAb/LFMV5GEz t60j+3coJgOKKZLPE2mSQHEpZaWGkIgBOoZ58pw7vy9i7MkETscQp5enwsWkgScnI5bNRJ1MQiR72Qe/ hGCNDQXEiEtFsOgG1vEVrBsYTKRcMfD1y9TnqtuJ9X NCv/GyiBU/6C0GHL4x7AAwT55UyLb/ZDkJ/ZZkGwn/rfedG0ouHpBqlMzBipUtEGzsA44jSBkRYTQqyw sgLQuzp67rWnjXqrX9LO+d4ZCXGaTsTm7fc4SQXHYzK5EY+w592oGyNxu8GSsI17ZfJv3rKmkJVQ39BI A5D+x30Cs02dLykDCP7+914Wx7hfd+IhILX1lL+jZy OxlOala/Pkg8pzi3CjxYKBnd8m9f624WlEn4Hr6819vP8w491Tp8joh+u12/7y5uieruw+u32/Xb7frt jb9xMKGr37qo6CAqaOAsoFk+BgEu91Tf6vpyNfiYq4xC4KgEf3n/qqDzJNsI+u8Ev2KJTV48iceDf9oa furh1l88708Ji4z/57+gAPQkzYnpt+R3ALDeDJtMax 7Mp0mK6wBlAeUo7DMIldS5yLkqxcI1SlWvaO12gopb0pppgI2Eb9O840H2CP1GQUXvAvKGejRwlZIvaA ohK2Due/MskV56ZZ8A13/D9dtw/UaE+yPVxVCy8lCqhKkz22T4l5R5VzXYEakZYB1dJ+3vMn54Qohp8s L2P1K1MXuJwSRv92XIpi07CxCwDkvDx/1HrRJ6YuOD 9BsLb2G/Q7eO5olbWaemw2QT3e42B0iyMbdqeni86ca8ufr7CljEq1WgI5Oqv/s6Bwh8ImMZ9Tivi1Kf vy/NQv0xwd6Vj18b+xuY1RYRlPJtC9SihP7ony0sBqOUJMIqVQv1mzcbltGato1B2pN1Tfr0/UB8Z1Ts T+oaZXtLEFHgRcJKcXBBO7Pp4LIB1R1Opq60YCxg8u U4upMtPENAAUAOjjlwOVTcyJ+2joR+2zoS+h0JafQek34Ylwhdne41NKtExCpQQuPakjpgcg29bNP9bw jlF1c31VEWx+x5HI46f1SlB65Ldj6OVMd5CSSb7eHD/YbFE+8zyFw6p7Al5q2wbTLH7lUWtRzGuH2e20 qMztL9Gc+S7ILczHV1hnlxPrsTw7eqbZN11f2lq3YJ T/O2rNaE8/nU4d+kE4l/n139E4AP09A/q2o6zss8UMAgUld3x336JoQwAKGyLSsPttcXGLRkWfhKMJ/R PJg7TMCv8M6wsEBuzii2ElYKWn6x0YvUlRzWsXvJKkeVSuRPqdVej3FPzLrwL85Eku6EPM2y8yx6Mag/ ztKwMpVfExbZtqJ4YhOTAHwUz8j/Gr9iLgtpj+u3x/ Xb4/jdmo36mU58BP24k8KbtN9rcBJnCZ2oVqcf5S1lIgdh8rJMGq4/2uSblz2I7PglEO5UxQmDP+S8/A 76TR4J/QRoJzl4TdG7XylShfECYleH0Dco5RPYnhNdR7VJrtCn+x3i4MqbHfPsfB9dHCMeGgg9cbmr8P YFk7Xp+h8k4DaeoMCoVLTtKcJxvxw+48X59zY5pod+ j28vkcm12uqZouJHBdpfpVp82elkrwo9pxfyIOJKv/TyIn5R39/Z6uu4UE5R7twvZwMXad6AuvdLb9tM 4zeptm7QsY64ThepMa7jxY1lrCj/nOwyMy9v0sG1G2pbbGkyZbF63Md1A0kpJq8rs6w4b25t6K2qqqE7 ct2wdbV8ahPv+d5XvAB7RFLWn67uWXe3Z2jJRaN57t MQfLaJNmLwJfMIwpdOJAp/0ffKq97BYamSSsVUQ2uGBUiOAzzy7AAyYw6/b4WMjPv3zyP3rfBmmZ52eO 4ZzCrXGxFwEkd5itBLy1yA2S5EIr/vL6Kg7ToHb3ETotXwRZPJAjUth1xyKi5srgrSbPMru8ouKT27yj u6HQA2UPmL3VzNWKLjUwDXzuuDaqSkK5vMb3nuAO8l vQr5bpAxRjYazuzUj3DhMg2Hqu6CibE6Mnmf2gzDzTlmYCIlo/w+5BfyHlpNWLW1hmyNo25t4JC4ijTz g7YpZ3PGsm9xAFT+NpRT2Bp6HV9rkrWfoLmFacdUlffJuCLx0TlH+WoqPDM848qYiiMW35top27x/i2b PcumQu5J7F+2UH4tT3z4M0w8LroNLuvfQ2MxR1SjsH HpI8J+cyTqeh2Jv1IHf7AxqvwUPpLQ/utmhb52i5idv+ffFNevn+Iek3a9d2Y56jPkr5BNnB7g0xzd8k hL87bhrPD+/4QvuY969YVKg0kRSCt/HVnOv6d12sJy1sTK+R5cBpxTHhb6QPib06Aic/tJkagw0io880 CYaH+Y1gRhTrjOaG4VoJg249TpiW+pJ8ah43LXSjm/ AoAI+bdSczM6k3jT/5Y3Df+Wzxb+IRAWTN1BCT6Zj+BEzk9GWYhkDlS/07Ph3/RK8G/2YbcDCGBdI5Z7 FWaT9A0INkVlnZAL5QB8JZIp3KGpR0o+bAN3KvzbAxeWUu35LShpdwDyR3A+je0A+p++9z17Fd7mkq/2 enzIK/3nif3V8NapzyVjVK9CtOArugfFuTb75e9uTu ybGtHHp6/7R5DEvPoQ8kR1nsW9I2sypfIydLrt1KS97MMx42lV3rabeV2q+ezt4k/WEzRy0v4NxC17w4 /e8mrh3/I+4d/ycUZtdmuxW+D8nlHb/Zq8VzM9md5hWh9CP9C15l/y/YR/0/INmwbSDsK/sN1a15R119 z6c8g8SivT2ZtxY1KocNGTA6Md0zT+T3aGVRdeat+d tf+2sYEgE+FkZoBqHGKi4bgqJHiSOFVn5l+s3yqJd2hvu61tQ4++Dj01lMr8+sc36cWo5+RK27acq51F Xx+fvq+t17+vrde/ge5IoJ7q67xSC37iq62kBkGo+S09Yejp09kyYdpezsJ1pbutSjDNClle2wuOCGR0 ORNL1GXfLoLClTQDab4mqsYwbLY1l5pZ/bXduhNbz2 N4tLG0gyJ+h4JLR6cDSdjHgi4cNGm7KIZyJ5g5pChYt7dnn98yv23vd27kv72ld36DxpN1ri1v7z+QZD q9igXzIRte+KraWOja6hHYtEzw5vm4qL9XHCydPn8hz8H7+tE1WiD4aVmxYn+2ff5t+/h0+/xt4dz61w un2/Bl6sHD9uyg60eCr4+fbl8/0y9TwFkhYD+e0Hx/ GlMWLb01ZKJpegC5h8FyQt+5cx9pv5/TPgX95/Bv+zpzj7iUzf6vv0/TZgUR/IxJ8zQqYvCPZe/d7t+2 +7ft/l17i3pv12a3h+3+bbt/2+7bwZdCnTXTu9q6WxW1dlsJrxVuMZdRyh357t6dKU0H6nzc/q1f5t/6 Zf6ta/+Cfsh9jwuu4w/r5Sb2lbi42i8vnDXc/bJ8yv 4zfJu8iuzQ/wLMls63R/QEFv/WtX+OQQTZvkTm0n+Q1AbYPOadY1ge5IX60DF/XCo2VdW3IsrKKTp7ib 5AItrv4WCtG8B9xlxF0qbjEb5K+zYCouVjd0GLF0F+jfryRcq/UV++yDZi/u134vdds8nIE012JqZB82 v8G6/HrxmPvn4ory3Ov8q8T4V7svupQY9skMHUBZ/+ WBX+vNspM9hZQ7GNRged/Qtk19X+eW0tvj0pEmapunp7N1i7Jt0wY5Syz2lmW965GQgeY48dEJNif8Eq xqd8VU49BflOPJpgnc2R/EwOXTMkNiCZ9xlajFf0vFZmPu6wx4kDc713f+xfIAqR+jAP2jA5xkDAo293 hrHUlz8/G/+IA5vWBsu51sX7wdR7pDG4daeP9lfAok ln2rpi4M/41qdnQfJDKdScpXe4usuYIxDsYyrYfX+lmXI68BgDLaTmr8aFTYSeEWYe+mzJH9c0W9nCpj Cqu4cyIMYcZM3q+bsEWXh4L7zCiC3TE3vTi0xavbXS+hCI1KvsAbNv6Xqt/4ISBrN/QRmD2b+glMHsXz pl0js2Pp53G5OUt54AyszvAFN391lKi5+MwuxfUEph 0z697rQfuwcFhs1bxuDc+uLXWuokgpPoxXkgCGjNNHXFU9SAebNve33D9GvK8c6Zjtl+pLj8+QlPpaWj cNltFtS63t5z/0I2/OhAuZQEH7MkCxncrlDIsiM/Cx/C/vH4lAxykk5F+LRr/4Iex/Xky3Tep6d/gt62 rbyduwFxguboBHYT5C9iKolcgj4QOtJqtBJn1/6FJN 0J+zySswC2Y8mPF3jMt2IigtX/xmkW/9abxb/5DtlvmOu4H68X/9abzb/6QrGN1nt22ayMF8tb8IsrMv 9d8kdkxdb7jLm/ShFnHHDM4e1/wzkk4gRyf0z2g8MUzvhl3vm/sCHDScW/6K7t3911L5taKif6VoyYIX y7c79YjzkcX9lfw4KemJV7rZ6bqPIEBaqv52e2PyvW fgg6vcdoz/ArnMz335da+o72V0VlQ3TheKv/Dp8j10UKTMlZ8MBu3ordRnr3ZN27+SAXq6lAEwIf5mKR KC5/rV2Ma0w0fE3v01xVewFP+kJx+ERH55Ou4brHogoYtlzc28fGrvI9wZAkgFI/8T22m5a8IlKqXSSS lz/H5q0lWq+ieyCCRW7QgXW0XXhvghu+qu1oiLbI0p nfnyNDs9vaWPfR3Y/r1l3zlinxGptZ8PCqtv4xzc0Oi824m/i3qccJ/4Y4NApWehOm/8Kr3xP+TTqR/Q uShrF/MShsOEzVJkfFu6ysA3Aug1I+Z9qN/XvcQXFnNviKUAtYUxUJ5SJKav+WAGyZz6ebNWIij9xK77 6bl5Z8NxlPptYkVMY1ziV1qmZeLmZ2/Eh3xyxyq07p CkYPLB2b0k39NmPq8IcN6Zh3ygv/btvHLug89R/Qz0a/xW9y3RH2uw00v37r/5Pz9Bpsi0H1fNf92z3Z lNwW/0Zx+eJj9V4JHId05tSChNWuaHxrzix2O/vSEBuwHqtlBR8d3xv4FvbiuT4RJWvd/4LKRLB/QXUi 0Z2oDDf4vYy1f52z+h9Hv11LJmg8CM1wULfKVUaKpl 3oNjWNtXjFT22Z1p+mTLK9B0Sjwc7FKeCL/qA05VD3NO7CRAA1RehdvWTaC5TnluYybQa3iFTbHxMIxA +eJ2B/lsyf+F79MSy+l+Uw601KzQ9A06v5HE1Hyed+C02CmxjKgE67FcLC9RaHyGZA0PbVxgJdU6LMbW 37Aftt+0+81f0veT3sd9icnom969/Owp3Jfh21UF5t m2jnlxChX2tf7ccyKTwPyxl0PuDyvFmNkV5fePxwjligA9ha6tgpGmcgd4JT+tNh+0/3pC5k2srajM+/ 0H3/Can8X177K9Ajf4VCi98C83/ga23baZ1hEAYhiP93tysFUbOt/5DVoTQ8niBCH5q/DQVF6eAu2UrB 6WTVPJLvX+tzr1SdJDDexgm/PdQqlCM5u+1dLIC6kw g7A3CCx/Ub+dmNix7eQziLlaGzzOOkx4YcqgXGAr/P4pWuTp+f8ymZII9Nk7cHdkawbgvO7qNqHza5Sn Xli1S+AbzD05BfNi5A5L6Mq6eYgzbgpo/mtnOjuP8p/8IhtV+B6iZFhqY61c5wOu+l0nynWu+syvbXU1 y+IK1rf1h4jEqYXZGv6ee7rb4BvTBl+Eiwli7EDWL8 F7ujjpi1NU42N2B8O5k+LXg9J641gIygwaBC/oWdxa4+y8giLMUxtXgO/Cel1Pzckf0ekri5q+hqsd/5 QdaoWIWJ7Q/wquhV+DdJQ/YvLFXTDv+m38P+hUeFtdy/PZYum+Tk1g3oly4T0I59VkPLkaRsmXR6Y4Dn aip4ZIeHGvb+BfWa7F/OQVY5Bt6J/mXE5kM5UeKH+x eyythd+52pK1+9uQlLz9aC3J+C8kQx9p/hvY6lU0Vwq0+FagZ6I6w+CKqY5b3SIfS/QXKS/QuSk+xf0H Qg+xckJ9m/mZcS5s1GukT/QdqS/QuSk+xf0Awg+xekINm/DKI6xB7MU6y+Y6owj8IvyyjrJUY7j81rbF uSOX2FOqu+kASiwwasC8UHBlHsSGfei+ST3ELkosZH EY+kS4d/y2dznzEJgHn/fo+XWWP/LxnYWs5uAYaC3FOidkSVOguhCu22MluGtlXkmz6o7GL85o1VaO1v suXgje3r6XKCxppu/Ey9Tje41EC/OCEp31o7pg4a/zE5u3bn1l7lu3Y+cVENc6w5Gce+NkkUbeI3t6S6 wcn42dGz09fJ87+cw41Er7+eCs75fb2HtpHib6rs00 OoO9+z5gn4Fo5LDNkq+0mjAv5w0dUmj9//GndCogc2i6x+P/zy+StW0g3fHBnW/hkheofAYJLI3zIiCf 48GJ/fgZUXw/CvaQ+eM27EduSvgI6XtcZFT+VSCMzm+q+OdeJu+Gd24WD/o0ztD/H546Hney+jTO0P8/ ky/O6G35pdrB5/gfkd7oLwqy7bShmfx9S+/xnbwcPw z9R+DkmbKwPz+c/DCt7Q98UF/7xaXudzagf/bOzg2/Aw/BXsTrwM/59e9zpjEkK4/JeO4a0QjR1gZnay bOxKnb6ynysi/nvzMrWGks0RU/epu6ExY7DLD5q4GU4UQS2VHGgp/yhTm/oyBCj1r9/4IPObvI8Wl/arianna 1100UUV27z73S763x7EqbxgQqv0/1lAaS7X7/cIeou z6xbv+3FbIl/6jY1q1ss+ndfAMzPnLPv/sJ7/72Y+u+fmrUEH/Qtn17X1+Qjyeu5KDO8Tq/SSehj/7Sf wa3it/L5uLtJ2gjsGas79W06sCMbAUzWpFUQ62B5/2c+Qag7j3xQJA/UCNXDdcLbyM4atWsPx/w7PFys BPzLESNQKzEPWzn9/6ArO64bNs2J/9/AYBfPdnPz+l z/k/+/n9f5i5/MfYFs6vT5l+vJn4/DXBT/fc74kiThS/9jO+UuP/BoF3aAVH/1IF8VscZq1/tw8692h0 ns//5H0//3Pwz35+37mD2lWhR7L+92L9FzfC74OBs7qhQl0p8qS/8F+I+X/91zr+h+fE/3b2Ce8o8Tgv wxrGzfxfd/wP98L/TI8zEonBZp+YUzm4Mqp/CJf/6f I/EmiGP/vBZ8Z8/w/z+Wc/tUGkyRP1J/nexSWXt4tMt6z8bNTlQ5xL/oOj/+K9hP+dW5pHeqMeTtsqOj vm+NXHxRR/9JX/CeU4YXM/fFu5uAdbWRijIayPTMxZ/7lp5/A/N3Yb/ron700k7bt4f247r/+5V3we/u emPcP/XYur7t5/PQ3++q/EX/16HctWCxLlqvd9iu/4 H+HwP4k/+9F3w/8M2j/8j+4b/kfPE/5Hzxn+R88f/ufGlsL/6PeG/7A2QbQcmWpK+L+1kh7tJO1busVr /aBPYgZf+cMl5MNRQz0e8qma89R9GpGoevSg5/WuY+5x2wQY95FLzLd/REcdPih13Jx/DS/DYT/CuzD6 J9r/Rv90Pg/8J1rlKvPJ/whPw6F/4r3c6B/o4X9fKt f6h8/YI1Fdy6rC+vx83GDv3fL/+u571/VD/8R/9pb+AZf+uaV/wJ/95Dmf/eg64X/b17a3q1/Er+FdOP yC8jkzF6xkp/c4w632J5Q68U+Ew979gsta2P9M/M+N/yJj6Ky5F+FR7YP+qw7IOWVtwVz/9oP/jDn4n7 /9/lMxBS8/UONkFGonSgZA70aOJe8it+/mc0UbTr00 /mc/9AUx8/7D8X8M/5P4sx+dH/6H/iJm3Q9+ocfURMf0AZIr/eTX0OsecljaqknE+wpPh99xF1vH3aSk /Anali/RP9+I3+TD47p61L/wi/hkP/hK8Y6J/w+TK4Vhw7Ucu0k47eyzS/CC/DoX/03dA/7Xnfej1bz318 HuhX67L/9Hnon/BFMa/+0345A5HbPGh1jWgoB4BKaW m11wYj6T//mfFPZWrHCnuLCfWxKMka+mfd4E//dN8eOo6Uvirnr875dZ770528pv1LJfaN2Xe74J/aKa bRzzmhf+FkyMU8oVqGmQJQQNEs/LOfc86+UzvF/PnvOtEOn//5XT/u9fmfn+tY8f7QW3khkgIfER+Josias 3oH54Z/cNvRP/Qtuif+F8M9E/2xio8r0xiys2+vw0P wzH+El6GY/w1wYy/AjP+Vb0aG8vguroi/MZg/LXBw/BzxqcD/UFmfeKdtVc0X+PzXXhdp8+FKAN0jSyj Vx8X8+PqN2N6/GDG7/GOwv/ZS6xnpLDRWM6o279Dan77HTSJ3DTH/cM7Df+T+PM/8PWD1RzMx2//QZvF vIj7R1tD/iZQoSu0T9HNUJlHu9ZjzFMNDEBsHTfF8r oezQgj2t66Htq4T30THs5hb3HrR/0Tz/iidjb4Euludd9Cv/50WV10xq1p5A+0/sV7G52POi7zy7HBt+ mfB/4mMUa6o2U+6WDs5/3xAzHE33TXC+ifsL0H/LPm5pO1Aa9Oy9iyaDtr4/Tjj/QPuPTPI/3UZy9iyY +ES/66aq8k8D6fN90/gEP/0L8cs0BMS/aJgka9j5ii Ka0bRIqE8j58l89O/+jz0D/NcH04gq5/alu9E5xB6409OieWr/6VPm5UQ7JjZ5lDF/aD/on/74P+ecFh P9gh+ирина/jhziTGPnXYb/ifxZz/8l2MS+3y+CzP+7rkJd3PYuqug/nhaty3y/+Z/ZbnJXy8c/vDB/wjv wuF/xQ32V44u/I/eGzrWynUHrqc6x8de/E/isB99N+ yH5wz/wcolb1fR/9F3w//o2cL/JMZ+OCfsR5+mktV2Mu13dBKgpgvpQcznN9lzUm5Gw07Nn1Ogc+vsY0 sT/cKk685m/rdgrfhdU8MHRBsYy8YIV/9hWA4Vw+J/4r8z8T/o976zh3GFrC/Lv0W4Vysxkm+F0hNXsB TvT/RP+PPJ/E+8e3x7M8S/ol+CJXqgC7z6ZhK6oHGG zsST6Ah2Wn+e+xXr6XcRRuQ/+Jo2Polf7bnkBg6s5gxd+dcsruaH12q+mdI/sU98M31Q/0O74X+4Dv6H S9jQl5p7jv+oDcP/1FrSdepOh1SSWLDTxV0V/W+ky1G/Jebk0NyRolg8p1Cq6+eM+qchxjWD1dS/oXUj T30rRlCZesNbvVag2J+JOSEPH/nbQeRX8HxxMr7RZUYnfB ZBvgiFwNK6vN+zB3/0M5D48L+D/9j7j4Q8dU7J8Kg5p5J2pb3S/BvNkK8A/6HNw//8Xuo/xlw9xCFMoq F/Ht5F+J/nBn/675xHS3DysJ9ECGj/HUK0W/ifh/YP//PQ/uF/Huw5/M+zwZ/9TNot/E/si08biQH+Z9 JW4X9+/5p/NpN2jNC22S/xIsmvOZwa3Nyrq+ef/fAM kf/l86clb1zK1llo+56llF3PRO6+b4TR/oW4E1Imd038/LAKLsTrDL62dQhdo/QH24sfU3M6CL8Fd3wI NO5tAKP+ddqBw/+M8A+S8MX1hAQf3PlHsOopa7h9t6HKAhsPb72m016Ig+YoNAJP5s164Xw7RQ20E+Fp eBmO+UOeJ/aNdHvhfIjuez1P+UN+S/sezUY4ri36C+ Joseph+LOfMTn/Lwfure7Gl//ROeF/Evfz/2nKVpa97G5Pz/zVgT5qb6W/SbwLh//R+eF/mT1dW8gyy95Hbf [file] L6xy9trgP0zZF183+xbKp35f7/bs4HJ78pad1W2/Y3 m1zy94UwnjP+fMb5T17wd0/8vJw1141eqDUcaktX+56Gp593e/6+wW+Ks8h28Mgh+we7rhrFTx4fy23k 89ker3v5G2CJ434y8ue3r/8eQm7cLtcv+/vf/24j4u6Zgade65t/765/itd1s4D0/ional0dJx0Fhrdq N++W74+DDE5/Z2E5g8JGwWh9I0+vnLHSsuvfqe6adn /rM6xmJ8a2amxY9omA8AGeMvT148N7jCpJ3uAq+pyeKgqqaoN98H+2oU532mY5MhDc4n2WamglmInfo4 Rb0WteqphfFasoa504LDQfQ/6amruDiN/joa9BqL9Wqwv4Eb/oI89YN1vI/57kg0fBbd/yJQp0S3VrST N87Tep5/622Lt/fm5bln3n5pN97ob/k40P9FEV994y oI883XM9n1Xe814s/v/rXc/AaKT93el2n9noj+LtHbfjw8//AkIlcgnjeiz71Dq62QY+bD5UlwigWglb uvdD4tUBc8hoIWjHcsCKY3n4ZnMkd4m1Ft68/7z1+/Zh3UthgP5HxPO4yLTi9fSx5/ffrlu2+Otifx+u 7PR0+4Pmo9v/nB61aE4+8evj6/13Ia12dWqnYs6mug v0r16c6o9lwlGleiGOy1zlZ+8K4F368xr+R0+JdpLAQv9fiOVxcvjoehP1ubCuIC9udk5/shDB9/e/barr 5WNuz/1dOcVburxPtc8rlnK2LY4pqnXx5OLApLago26uKU/VvMz36/Fv4ccAq2RDAYEoBImmn/8PQVxC NVodqvFbpHNyWQ0XES9xa5XkVoA8BQEcr2RcKXddWK p0aLMxIZczljIgd8RlhuidQ7Ngf7QrPpRiACLsDyXmCxg5GCFqGqF1pIFkBoXnPIHiV9IwJBYzSwT1Zu BmPSOIVB4JRDTjniKgLqJxVLT+LqJnNO0uiosrKRGek1UwIFpoAZzoGLEnP3W3eYtdZJFyK5SioY61UO HqC8MksgS8CIJ7UNEcBaXfVTDqmJEgHGXoDTT+PmVu RO3orweeWXRns8GfFKtyQPL2mM1iUKkOZZEZQOpLRTdcJsG7k40fsuGRIZFpHKXxEM8SfmUlnUkhqwBx kMZnLBC6FgJpCXIhYIcwGPBoBGIUEXExYGRtHJApIOKjC8GgjYvtFCrDHQCJEIcNCQeqMiHis0O6SMRl qbXGMCZQKPrNLQ0FCSJWR2rRViJvLZWlCkKuPvKgVL PeJ7ScnqNkjKWzIXIKQFcrCybiBRJtoY4roFbxR1OdAJK8k2EuFA7MF7IeOZTiKXGPWBC1w5FlHHKkid oifpzbOpEoTYLaOCVcPVQxRH2Fwj1skBWxxwHnCQHGNTusVqiwAO9zsXoydeqlO6ZcpAOtSDD+PmVuZG 9iaj4+RoIiXUBfNgj5BPUkTUxoZUCdRBRpGNQcU2ch OYVoSxPjTFXkDrYcLA4Xp2DorSUhUh6upjIyWfeUpEVgAkohXSCrBGPuDXDdPaOHGNKxVULrKVKwEDW6 UOXjAAHhFHsrXJNmKLS3TJChJOSgAZFmJL4jRlTzQFTxAMh6CDiqMXGxYAEdldDUFPYbGXG1Bvs4CMVo ZLYjZHDnWLnjAJCrBNKkZZMiOHS0AMK6RGEwMuDdMT NoDWXsKINwVREuPVWinsXRVLVrDNZkWIT1BCAhCFBiQUVjCRgiAZSeJXHcCSurAMXgRBPnHG9mMyBiPQ KkYLOcHYgoPVTlNOFmdzTXQVGgHBSjSVRxHLEvJISaSUAgEQrsJQJfPJFnODUuVHIdKKAkHR9gVcUmLF RvCUU7ELKuRMSlKTTzfwGKKZNhBSCwQEz5ZEJfTNHo FBJxHWflZIOaQXHmMAQ1DGSzHAEnML5gInYqDSWmBUK4HoFyTWQlPXZdhbLUXBNnDHJaFNC0JhTsLKDf VVBiDNiwQUXqYPDjSSsxSYUuNEEqXE8vSfOlDOKyBJZqMCjzMPViWWNsooANAQXoGHGpRDXiRiKiKZNu MRAuOSvsPBThQMM7CbM4EAKrHJOnSA1aDaBaLTHrJR K2BOfxEUOgWHBljsWFEWEbEHLsNXibFHIpWZLyDMHwJUeiDKYzTHRpSKE9LLOyPKYnAN0aJpVlNFJsVB UkLDKpOiN7RvEhHqEUeHKlcPzizug2UKqoG0d5JLUwPMwxMH1wihQaFKEiGholAv9kzIK6KCGePmsZJl 0Hh8YtmuN5brNsUvQ0NtB2YvSlJU5G ID Date Data Source [id number] 10/03/2020 07:57:07 AM EST [place] [id number] Name: MAGDY KAURONDOB: 1945Sex: MOrdering Provider: ILIANA LEYAuthorizing Prov: ILIANA LEYReferrgianna Provider: Procedure Performed: XR CHEST PORTABLEExam Date: 10/03/2020 02:28MRN: [id number] Number: [id number] Class: EmergencyAccount #: [id number] for Exam: fallTechnique: AP portable view obtained.Comparison: NoneFindings: The lungs are clear of active disease. The cardiac and mediastinal contours are within normal limits for an AP portable radiograph of the chest. There are no pleural effusions.IMPRESSION: No acute disease in the chest.Report electronically signed by: MARGOT ROSADO On 10/03/2020 7:57 AMWorkstation ID: [id number] Name Value Range Interpretation Code Description Data Alma rce(s) Supporting Document(s) ID Date Data Source [id number] 10/03/2020 04:51:26 AM EST [facility]PAT[facility] NT INFORMATIONPatient MRN Name Date of Age Gend*PT [id number] Magdy Leach 1945 75 years M EDPT Location Admission Date/Time Visit ID Attending [id number] 10/03/20 0123 --- Iliana Ley DO([id number]) EPI ID CSN Admitting Provider [id number] ---Provider in Triage NotesNo notes on fileHistory of Present IllnessChief ComplaintPatient presents with Fall [facility], pt fell from standing position. Found by staff, lester, doesn't remember what happened. Possible LOCThis is a 75 years m radha who has a past medical history of Diabetes mellitus,Hyperlipemia, and Hypertension and presents with an unwitnessed fall via EMS.Patient states that he fell from a standing position however he cannot recallexactly what happened. He is unsure if he lost consciousness. His history issignificantly limited due to underlying dementia. He states he is at the [facility] for [facility]. He states that his family dumped him there and took hisdog. He states that no one to take care of him anymore.After nurse spoke with the grand, we were able to obtain more history about hissituation. Apparently he had been falling multiple times at his home. Perfamily report the home was in an unlivable condition, which they felt wasunsafe. About a week ago [facility] Shortly after his arrival he had an unwitnessed fall. He wasfound down. They feel that he hit the back of his head. Again unsure if therewas LOC.History provided by: Patient, EMS personnel, medical records and nursing homeHistory limited by: Mental status change and dementiaHistoryPast Medical History:Diagnosis Date Diabetes mellitus Hyperlipemia HypertensionHistory reviewed. No pertinent surgical history.History reviewed. No pertinent family history.Social HistoryTobacco Use Smoking status: Never Smoker Smokeless tobacco: Never UsedSubstance Use Topics Alcohol use: Not Currently Drug use: Not CurrentlyROSReview of SystemsUnable to perform ROS: DementiaPh ysical ExamBP (!) 165/101 (BP Location: Left upper arm, Patient Position: Lying) | Pulse76 | Resp 18 | SpO2 98%Physical ExamConstitutional: He appears well- developed.HENT:Head: Normocephalic and atraumatic.Nose: Nose normal.Mouth/Throat: Oropharynx is clear and moist and mucous membranes are normal.Eyes: Pupils are equal, round, and reactive to light. Conjunctivae, EOM and lidsare normal.Neck: Trachea normal. Neck supple.There are no midline c- spine tenderness or steps off. FROM without pain.C-collar left in placeCardiovascular: Normal rate, regular rhythm and normal heart sounds.Pulmonary/Chest: Effort normal and breath sounds normal. No respiratorydistress. He exhibits no tenderness.Abdominal: Soft. Normal appearance and bowel sounds are normal. He exhibits nodistension and no mass. There is no tenderness. There is no rebound and noguarding.Musculoskeletal: Normal range of motion. He exhibits no tenderness.Neurological: He is alert. He has normal strength. He is disoriented ( [place]). No cranial nerve deficit or sensory deficit.Gait not yet tested due to clinical conditionSkin: Skin is warm and dry. No rash noted.Psychiatric: Thought content normal. His affect is angry. He is agitated.Nursing note and vitals reviewed.ED CourseECG 12 leadDate/Time: 10/03/2020 2:20 AMPerformed by: Iliana Ley DOAuthorized by: SCHUYLER Dick interpreted by ED Physician in the absence of a cardi ologist: yesPrevious ECG: Previous ECG: UnavailableInterpretation: Interpretation: non-specificRate: ECG rate: 72 ECG rate assessment: normalRhythm: Rhythm: sinus rhythmEctopy: Ectopy: PVCs PVCs: InfrequentQRS: QRS axis: Left QRS intervals: WideConduction: Conduction: abnormal Abnormal conduction: complete RBBB and 1st degreeST segments: ST segments: NormalT waves: T waves: normalComments: Normal sinus rhythm, first-degree block, RBBB, LAD, occasional PVCs, noprevious for comparisonMDMNumber of Diagnoses or Management OptionsAmount and/or Complexity of Data ReviewedClinical lab tests: ordered and reviewedTests in the radiology section of CPT : ordered and reviewedTests in the medicine section of CPT : ordered and reviewedDiscussion of test results with the performing pro viders: yesDecide to obtain previous medical records or to obtain history from someoneother than the patient: yesObtain history from someone other than the patient: yesReview and summarize past medical records: yesIndependent visualization of images, tracings, or specimens: yesED LABSResults for orders placed or performed during the hospital encounter of 10/03/20COVID/FLU AB/RSV PCRResult Value Ref Range SPECIMEN DESCRIPTION NASOPHARYNGEAL Influenza A NEGATIVE NEGATIVE Influenza B NEGATIVE NEGATIVE RSV NEGATIVE NEGATIVE Comment SEE NOTES COVID19 RESULT NOT DETECTED NOT DETECTED FIRST TEST NO EMPLOYED IN HLTHCARE NO SYMPTOMATIC NO DATE OF SYMPT ONSET NOT APPLICABLE HOSPITALIZED NO ICU NO CONGREGATE CARE SET YES NOComprehensive metabolic panelResult Value Ref Range Sodium 134 (L) 136 - 145 mmol/L Potassium 3.8 3.6 - 5.2 mmol/L Chloride 99 (L) 100 - 108 mmol/L CO2 30 22 - 31 mmol/L Anion Gap 5 (L) 7 - 16 mmol/L Urea nitrogen 21 7 - 24 mg/dL Creatinine 0.68 (L) 0.80 - 1.30 mg/dL BUN/Creatinine Ratio 30.9 (H) 10.0 - 20.0 RATIO GLUCOSE 116 (H) 70 - 99 mg/dL Calcium 9.2 8.4 - 10.2 mg/dL Protein, Total 6.9 6.4 - 8.2 g/dL Albumin 3.3 3.2 - 4.5 g/dL Globulin 3.6 2.7 - 4.3 g/dL Alb/Glob ratio 0.9 RATIO Alkaline Phosphatase 138 (H) 45 - 117 U/L Bilirubin, Total 0.5 0.0 - 1.0 mg/dL AST 15 11 - 39 U/L ALT 28 12 - 78 U/L GFR MDRD Non Af Amer >60 >59 ml/min/1.73m2 GFR MDRD Af Amer >60 >59 ml/min/1.73m2 Glom Filt Rate, Est SEE NOTESCBC w/ diffResult Value Ref Range WBC 5.3 4.1 - 11.0 10*3/uL RBC 5.10 4.60 - 6.10 10*6/uL Hemoglobin 15.2 13.5 - 18.0 g/dL Hematocrit 43.1 41.0 - 53.0 % MCV 84.4 80.0 - 95.0 fL MCH 29.7 27.0 - 32.0 pg MCHC 35.2 32.0 - 36.0 g/dL RDW 13.8 10.5 - 14.5 % Platelets 276 150 - 450 10*3/uL MPV 6.8 (L) 7.1 - 10.7 fL Neutrophils % 57.8 35.0 - 75.0 % Lymphocytes Relative 28.0 16.0 - 52.0 % Monocytes Relative 9.7 (H) 0.0 - 8.0 % Eosinophils Relative 3.0 0.0 - 5.0 % Basophils Relative 1.5 0.0 - 4.0 % Neutrophils Absolute 3.1 1.8 - 7.7 10*3/uL Lymphocytes Absolute 1.5 1.2 - 4.8 10*3/uL Monocytes Absolute 0.5 0.0 - 0.8 10*3/uL Eosinophils Man 0.2 0.0 - 0.5 10*3/uL Basophils Absolute 0.1 0.0 - 0.2 10*3/uLMagnesiumResult Value Ref Range Magnesium 2.3 1.7 - 2.4 mg/dLProtime-INRResult Value Ref Range Protime 10.9 9.2 - 11.9 s INR 1.04aPTTResult Value Ref Range aPTT 27.4 22.0 - 34.3 sUrinalysisResult Value Ref Range Color, UA YELLOW Appearance CLEAR Specific Coyote, UA 1.022 1.003 - 1.030 pH, Urine 6.0 5.0 - 7.5 Leukocyte Esterase NEGATIVE NEGATIVE Nitrite, UA NEGATIVE NEGATIVE Protein, UA NEGATIVE NEGATIVE Glucose, UA 1+ (A) NEGATIVE Ketones, UA TRACE (A) NEGATIVE Urobilinogen, UA 0.2 0 - 1.0 mg/dL Bilirubin, UA NEGATIVE NEGATIVE Blood, UA NEGATIVE NEGATIVECKResult Value Ref Range CK 97 39 - 308 U/LUrine specimen held in lab for cultureResult Value Ref Range Urine specimen held in lab for culture URINE SPECIMEN AVAILABLE IN LAB FOR 24HOURSPOCT glucoseResult Value Ref Range Glucose, POC 122 (H) 70 - 99 mg/dLPOCT troponinResult Value Ref Range POC Troponin I <0 .01 (L) 0.01 - 0.07 ng/mLED IMAGINGCT head without IV contrastFinal ResultIMPRESSION:1. No acute intracranial abnormality.2. 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 He is agitated that he is here in the ER. He isthreatening to esteban.I discussed the results of the labs and imaging with the patient.Nurse had already [facility]. They areexcepting him back to the facility.Otherwise his labs were unremarkable.Recommend PCP follow-up.I discussed with the patient signs and symptoms which would prompt immediatereturn to the ED which the patient understands. [NS]ED Course User Index[NS] Kalli Dickgracie Haylee discharge to home/self care.Condition at discharge: StableDIAGNOSIS1. Unwitnessed fall2. Head injury, closed, initial encounterThis was electronically signed by Iliana Ley DO 10/03/20 1:55 AM.Iliana Ley DO10/03/20 0451 Name Value Range Interpretation Code Description Data Alma rce(s) Supporting Document(s) ID Date Data Source [id number] 10/03/2020 04:11:[address] [id number] Name: Magdy KauronDOB: 1945Sex: MOrdering Provider: ILIANA LEYAuthorizing Prov: ILIANA LEYReferrgianna Provider: Procedure Performed: CT CERVICAL SPINE WO CONTRASTExam Date: 10/03/2020 03:08MRN: [id number] Number: [id number] Class: INFORMATION: Exam: CT Cervical Spine Without Contrast Exam date and time: 10/03/2020 3:08 AM Age: 75 years old Clinical indication: Injury or trauma; Fall; Blunt trauma; Additional info: Fall, neck pain TECHNIQUE: Imaging protocol: Computed tomography images of the cervical spine without contrast. Radiation optimization: All CT scans at this facility use at least one of these dose optimization techniques: automated exposure control; mA and/or kV adjustment per patient size (includes targeted exams where dose is matched to clinical indication); or iterative reconstruction. COMPARISON: No relevant prior studies available. FINDINGS: Bones/joints: The bones appear generally demineralized. Aside from mild endplate degenerative change vertebrae are maintained in height. Discs/Spinal canal/Neural foramina: No significant spinal canal or foraminal stenosis. Lungs: Lung apices are clear Soft tissues: No soft tissue masses or fluid collections. IMPRESSION: No acute fracture or dislocation. Report electronically signed by: JARRET ARELLANO MD on 10/03/2020 04:11:22 Name Value Range Interpretation Code Description Data Alma rce(s) Supporting Document(s) ID Date Data Source [id number] 10/03/2020 04:10:34 AM EST [address] [id number] Name: Magdy MendiolaOB: 1945Sex: MOrdering Provider: ILIANA SUPPLEAuthorizing Prov: ILIANA SUPPLEReferring Provider: Procedure Performed: CT HEAD WO CONTRASTExam Date: 10/03/2020 03:08MRN: [id number] Number: [id number] Class: INFORMATION: Exam: CT Head Without Contrast Exam date and time: 10/03/2020 3:08 AM Age: 75 years old Clinical indication: Injury or trauma; Fall; Blunt trauma (contusions or hematomas); Additional info: Fall, head injury TECHNIQUE: Imaging protocol: Computed tomography of the head without contrast. Radiation optimization: All CT scans at this facility use at least one of these dose optimization techniques: automated exposure control; mA and/or kV adjustment per patient size (includes targeted exams where dose is matched to clinical indication); or iterative reconstruction. COMPARISON: No relevant prior studies available. FINDINGS: Brain: No acute intracranial hemorrhage or abnormal extra-axial fluid collection. No evidence of acute transcortical infarct. No mass effect. Patchy and confluent areas of low attenuation within the supratentorial white matter on a background of age-related atrophy. Chronic lacunar infarct left basal ganglia. Cerebral ventricles: No hydrocephalus. Bones/joints: No depressed skull fracture or aggressive osseous lesion. Paranasal sinuses: Visualized sinuses are unremarkable. No fluid levels. Mastoid air cells: The mastoid air cells are clear. Vasculature: Atherosclerosis within the intracranial vasculature. Soft tissues: No soft tissue masses or fluid collections. IMPRESSION: 1. No acute intracranial abnormality. 2. 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 Report electronically signed by: JARRET ARELLANO MD on 10/03/2020 04:10:34 Name Value Range Interpretation Code Description Data Alma rce(s) Supporting Document(s) ID Date Data Source [id number] 10/03/2020 02:52:41 AM EST [facility] Name Value Range Interpretation Code Description Data Alma rce(s) Supporting Document(s) COLOR [facility] APPEARANCE [facility] SPEC GRAV URINE 1.022 (1.003-1.030) [facility] PH URINE 6.0 (5.0-7.5) [facility] LEUK ESTERASE (NEG) [facility] NITRITE URINE (NEG) [facility] PROTEIN URINE (NEG) [facility] GLUCOSE URINE 1+ (NEG) A [facility] KETONE URINE (NEG) A [facility] [place] UROBILINOGEN 0.2 mg/dL (0-1.0) [facility] BILIRUBIN URINE (NEG) [facility] BLOOD/HGB URINE (NEG) [facility] ID Date Data Source [id number] 10/03/2020 02:43:20 AM EST [facility] Name Value Range Interpretation Code Description Data Alma rce(s) Supporting Document(s) URN CULTURE HOLD [facility] FOR ADD ON CULTURE ID Date Data Source [id number] 10/03/2020 02:18:28 AM EST [facility] Name Value Range Interpretation Code Description Data Alma rce(s) Supporting Document(s) POC CTNI <0.01 ng/mL (0.01-0.07) L [facility] Less than 0.08: Myocardial injury unlike lyGreater than or equal to 0.08: Highlysuggestive of myocardial injuryCorrelation with rise and/or fall ofserial troponins, clinical symptoms,and ECG changes is necessary.PERFORMED BY [facility] ID Date Data Source [id number] 10/03/2020 02:04:02 AM EST [facility] Name Value Range Interpretation Code Description Data Alma rce(s) Supporting Document(s) POC NOVA GLU 122 mg/dL (70-99) H [facility] [place] PERFORMED BY [facility] ID Date Data Source [id number] 10/03/2020 02:42:40 AM EST [facility] Name Value Range Interpretation Code Description Data Alma rce(s) Supporting Document(s) SODIUM 134 mmol/L (136-145) L [facility] POTASSIUM 3.8 mmol/L (3.6-5.2) [facility] CHLORIDE 99 mmol/L (100-108) L [facility] CO2 30 mmol/L (22-31) [facility] ANION GAP 5 mmol/L (7-16) L [facility] UREA NITROGEN 21 mg/dL (7-24) [facility] CREATININE 0.68 mg/dL (0.80-1.30) L [facility] BUN/CREAT RATIO 30.9 RATIO (10.0-20.0) H [facility] GLUCOSE 116 mg/dL (70-99) H [facility] CALCIUM 9.2 mg/dL (8.4-10.2) [facility] TOTAL PROTEIN 6.9 g/dL (6.4-8.2) [facility] ALBUMIN 3.3 g/dL (3.2-4.5) [facility] GLOBULIN 3.6 g/dL (2.7-4.3) [facility] ALB/GLOB RATIO 0.9 RATIO [facility] ALKALINE PHOSPHATASE 138 U/L (45-117) H [facility] BILIRUBIN,TOTAL 0.5 mg/dL (0.0-1.0) [facility] PLEASE NOTE:Total bilirubin results may be falselyelevated in patients taking Eltrombopag. AST (SGOT) 15 U/L (11-39) [facility] ALT (SGPT) 28 U/L (12-78) [facility] GFR >60 ml/min/1.73m2 (>59) [facility] GFR ( AMER) >60 ml/min/1.73m2 (>59) [facility] GFR INTERPRETATION [facility] --NORMAL KIDNEY FUNCTION OR MILD DISEASE - GFR >OR= 60CHRONIC KIDNEY DISEASE - GFR 15 - 59RENAL FAILURE - GFR <15 Est. GFR calculation based on the MDRDstudy equation, which assumes a steadystate for creatinine. Est. GFR should notbe used for medication dosing. ID Date Data Source [id number] 10/03/2020 02:42:40 AM EST [facility] Name Value Range Interpretation Code Description Data Alma rce(s) Supporting Document(s) CK 97 U/L (39-308) [facility] ID Date Data Source [id number] 10/03/2020 02:34:10 AM EST [facility] Name Value Range Interpretation Code Description Data Alma rce(s) Supporting Document(s) MAGNESIUM 2.3 mg/dL (1.7-2.4) [facility] ID Date Data Source [id number] 10/03/2020 02:26:35 AM EST [facility] Name Value Range Interpretation Code Description Data Alma rce(s) Supporting Document(s) PT 10.9 s (9.2-11.9) [facility] INR 1.04 [facility] SUGGESTED THERAPEUTIC RANGES USING INR F ORSTABILIZED ANTICOAGULATED PATIENTS:STANDARD DOSE THERAPY INR 2.0-3.0 DVT, PE, PREVENT DVT OR EMBOLISMHIGH DOSE THERAPY INR 2.5-3.5 PREVENT EMBOLISM FROM MECHANICAL HEART VALVE ID Date Data Source [id number] 10/03/2020 02:26:35 AM EST [facility] Name Value Range Interpretation Code Description Data Alma rce(s) Supporting Document(s) APTT 27.4 s (22.0-34.3) [facility] ID Date Data Source [id number] 10/03/2020 02:14:14 AM EST [facility] Name Value Range Interpretation Code Description Data Alma rce(s) Supporting Document(s) WBC 5.3 10*3/uL (4.1-11.0) [facility] [place] RBC 5.10 10*6/uL (4.60-6.10) [facility] HGB 15.2 g/dL (13.5-18.0) [facility] HCT 43.1 % (41.0-53.0) [facility] MCV 84.4 fL (80.0-95.0) [facility] MCH 29.7 pg (27.0-32.0) [facility] MCHC 35.2 g/dL (32.0-36.0) [facility] RDW 13.8 % (10.5-14.5) [facility] PLT 276 10*3/uL (150-450) [facility] MPV 6.8 fL (7.1-10.7) L [facility] NEUT % 57.8 % (35.0-75.0) [facility] LYMPH % 28.0 % (16.0-52.0) [facility] MONO % 9.7 % (0.0-8.0) H [facility] EOS % 3.0 % (0.0-5.0) [facility] BASO % 1.5 % (0.0-4.0) [facility] NEUT # 3.1 10*3/uL (1.8-7.7) [facility] LYMPH # 1.5 10*3/uL (1.2-4.8) [facility] MONO # 0.5 10*3/uL (0.0-0.8) [facility] Eosinophils [#/volume] in Blood by Automated count 0.2 10*3/uL (0.0-0 .5) [facility] BASO # 0.1 10*3/uL (0.0-0.2) [facility] ID Date Data Source [id number] 10/03/2020 01:45:00 AM EST [facility] Name Value Range Interpretation Code Description Data Alma rce(s) Supporting Document(s) SARS coronavirus 2 RNA [Presence] in Res piratory specimen by GAVIN with probe detection NOT DETECTED [facility] This lab was reported by [facility]. ID Date Data Source [id number] 10/03/2020 02:56:16 AM EST [facility] Name Value Range Interpretation Code Description Data Alma rce(s) Supporting Document(s) SPECIMEN DESCRIPTION [facility] INFLUENZA A (NEG) [facility] INFLUENZA B (NEG) [facility] RSV (NEG) [facility] COMMENT [facility] THE [place] FDA HAS MADE THIS TEST AVAILABL EUNDER AN EMERGENCY USE AUTHORIZATION(EUA) FOR THE DETECTION AND/OR DIAGNOSISOF THE VIRUS THAT CAUSES COVID-19.PERFORMED AT [address] [place] [id number] COVID19 RESULT (NDET) [facility] THIS ASSAY AMPLIFIES AND DETECTSTHE TARG ET RNA USING REAL-TIME PCR.TESTING PERFORMED ON [employer] GENEXPERTNEGATIVE 2019_NCOV RT-PCR RESULTS DONOT PRECLUDE 2019_NCOV INFECTION ANDSHOULD NOT BE USED THE SOLE BASISFOR PATIENT MANAGEMENT DECISIONS. FIRST TEST [facility] EMPLOYED IN HLTHCARE [facility] SYMPTOMATIC [facility] DATE OF SYMPT ONSET [facility] HOSP[facility]IZED [facility] ICU [facility] CONGREGATE CARE SET [facility] ID Date Data Source [id number] 10/02/2020 11:12:00 AM EST [facility] Name Value Range Interpretation Code Description Data Alma rce(s) Supporting Document(s) SARS coronavirus 2 RNA [Presence] in Res piratory specimen by GAVIN with probe detection NEGATIVE [facility] This lab was ordered by [facility] a nd reported by [facility]. ID Date Data Source [id number] 09/25/2020 05:30:00 PM EST [facility] Name Value Range Interpretation Code Description Data Alma rce(s) Supporting Document(s) SARS coronavirus 2 RNA [Presence] in Res piratory specimen by GAVIN with probe detection NEGATIVE [facility] This lab was ordered by [facility] a nd reported by [facility]. Procedure Social History Code Duration Value Status Description Data Source(s ) Alcohol intake 01/11/2021 12:00:00 AM EDT Ex-drinker (finding) comp leted Ex- drinker (finding) [facility] Tobacco use and exposure 10/03/2020 12:00:00 AM EST Never used co mpleted Never used [facility] Smoking 10/03/2020 12:00:00 AM EST Never smoker completed Never s moker [facility] Vital Signs ID Date Data Source UNK Name Value Range Interpretation Code Description Data Source(s) Diastolic blood pressure 77 mm[Hg] 77 mm[Hg] JAIRON ([facility]) Body height 76 [in_i] 76 [in_i] JAIRON ([facility]) Systolic blood pressure 114 mm[Hg] 114 mm[Hg] A THENA ([facility]) Body height 76 [in_i] 76 [in_i] JAIRON ([facility]) Body height 76 [in_i] 76 [in_i] JAIRON ([facility]) Body mass index (BMI) [Ratio] 28.9 kg/m2 28.9 k g/m2 JAIRON ([facility]) Systolic blood pressure 135 mm[Hg] 135 mm[Hg] A THENA ([facility]) Diastolic blood pressure 94 mm[Hg] 94 mm[Hg] JAIRON ([facility]) Body height 76 [in_i] 76 [in_i] JAIRON ([facility]) Body weight 3798 [oz_av] 3798 [oz_av] JAIRON ([facility]) Body weight 3798 [oz_av] 3798 [oz_av] JAIRON ([facility]) Diastolic blood pressure 94 mm[Hg] 94 mm[Hg] JAIRON ([facility]) Body height 76 [in_i] 76 [in_i] JAIRON ([facility]) Body mass index (BMI) [Ratio] 28.9 kg/m2 28.9 k g/m2 JAIRON ([facility]) Systolic blood pressure 135 mm[Hg] 135 mm[Hg] [facility] Diastolic blood pressure 94 mm[Hg] 94 mm[Hg] JAIRON ([facility]) Body height 76 [in_i] 76 [in_i] JAIRON ([facility]) Body mass index (BMI) [Ratio] 28.9 kg/m2 28.9 k g/m2 JAIRON ([facility]) Systolic blood pressure 135 mm[Hg] 135 mm[Hg] A THENA ([facility]) Body weight 3798 [oz_av] 3798 [oz_av] JAIRON ([facility]) Diastolic blood pressure 94 mm[Hg] 94 mm[Hg] JAIRON ([facility]) Body height 76 [in_i] 76 [in_i] JAIRON ([facility]) Body mass index (BMI) [Ratio] 28.9 kg/m2 28.9 k g/m2 JAIRON ([facility]) Systolic blood pressure 135 mm[Hg] 135 mm[Hg] A THENA ([facility]) Body weight 3798 [oz_av] 3798 [oz_av] JAIRON ([facility]) Heart rate 92 /min 92 /min [facility] Systolic blood pressure 111 mm[Hg] 111 mm[Hg] [facility] Diastolic blood pressure 73 mm[Hg] 73 mm[Hg] [facility] Body temperature 36.44 Dyana 36.44 Dyana [facility] Respiratory rate 18 /min 18 /min [facility] Oxygen saturation in Arterial blood by Pulse oximetry 95 % 95 % [facility] Body mass index (BMI) [Ratio] 23.86 kg/m2 23.86 kg/m2 [facility] Body weight 88.905 kg 88.905 kg [facility] ID Date Data Source [id number] 05/15/2021 09:17:21 AM EDT [facility] Name Value Range Interpretation Code Description Data Source(s) WEIGHT RECORDED 234.40 pounds 234.40 pounds [facility] Height 76 Inches 076 Inches [facility] ID Date Data Source [id number] 03/30/2021 08:29:[address] [facility] Name Value Range Interpretation Code Description Data Source(s) WEIGHT RECORDED 230.00 pounds 230.00 pounds [facility] Height [address] [facility] WEIGHT RECORDED 237.00 pounds 237.00 pounds [facility] Height [address] [facility] ID Date Data Source [id number] 02/07/2021 04:16:57 PM EDT [facility] Name Value Range Interpretation Code Description Data Source(s) WEIGHT RECORDED 245.70 pounds 245.70 pounds [facility] Height [address] [facility] WEIGHT RECORDED 245.70 pounds 245.70 pounds [facility] Height 76 Inches 076 Inches [facility] Patient Treatment Plan of Care Planned Activity Planned Date Details Description Data Source (s) Amlodipine 5 MG Oral Tablet 01/13/2021 12:00:00 AM EDT [facility] Magnesium Hydroxide 80 MG/ML Oral Suspension 01/12/2021 12:00:00 AM EDT [facility] Bisacodyl 10 MG Rectal Suppository 01/11/2021 03:08:01 AM EDT [facility] Mineral Oil 1000 MG/ML Enema 01/11/2021 03:08:01 AM EDT [facility] [facility] Aml[facility]ipine 10 MG Oral Tablet JAIRON ([facility]) Amlodipine 10 MG Oral Tablet JAIRON ([facility]) Amlodipine 5 MG Oral Tablet AULTMAN ([facility]) Tamsulosin hydrochloride 0.4 MG Oral Capsule [facility] Sodium Chloride 1000 MG Oral Tablet [facility] Simvastatin 20 MG Oral Tablet [facility] Losartan Potassium 25 MG Oral Tablet [facility] glimepiride 2 MG Oral Tablet [facility] Finasteride 5 MG Oral Tablet [facility] Atenolol 50 MG Oral Tablet S [facility] Amlodipine 5 MG Oral Tablet [facility]
--- NOTE | 2021-06-14 14:06 | REPVR ---
PROCEDURE INFORMATION: Exam: CT Head Without Contrast Exam date and time: 06/14/2021 1:27 PM Age: 76 years old Clinical indication: Injury or trauma; Fall; Blunt trauma (contusions or hematomas) TECHNIQUE: Imaging protocol: Computed tomography of the head without contrast. Radiation optimization: All CT scans at this facility use at least one of these dose optimization techniques: automated exposure control; mA and/or kV adjustment per patient size (includes targeted exams where dose is matched to clinical indication); or iterative reconstruction. COMPARISON: CT Head without contrast 01/30/2021 4:05 PM FINDINGS: Brain: There is no acute intracranial hemorrhage or mass effect. Mild diffuse volume loss is within the range of normal for patient age. There are small vessel ischemic changes within the periventricular and subcortical white matter, but the normal krishna/white matter delineation is maintained. Cerebral ventricles: No ventriculomegaly. Paranasal sinuses: Visualized sinuses are unremarkable. No fluid levels. Mastoid air cells: Visualized mastoid air cells are well aerated. Bones/joints: Unremarkable. No acute fracture. Soft tissues: Unremarkable. IMPRESSION: No acute hemorrhage or calvarial fracture. Electronically signed by: Kirsty Lawrence On 06/14/2021 14:06:03 PM
--- NOTE | 2021-06-14 14:10 | REPVR ---
PROCEDURE INFORMATION: Exam: CT Cervical Spine Without Contrast Exam date and time: 06/14/2021 1:27 PM Age: 76 years old Clinical indication: Injury or trauma; Fall; Blunt trauma TECHNIQUE: Imaging protocol: Computed tomography images of the cervical spine without contrast. Radiation optimization: All CT scans at this facility use at least one of these dose optimization techniques: automated exposure control; mA and/or kV adjustment per patient size (includes targeted exams where dose is matched to clinical indication); or iterative reconstruction. COMPARISON: None available. FINDINGS: Bones/joints: No acute fracture. Normal alignment. Discs/Spinal canal/Neural foramina: There is multilevel degenerative disc disease and spondylosis. Lungs: Lung apices are normal. Soft tissues: There is an incidental lipoma of the left platysma muscle. IMPRESSION: No acute fracture. Electronically signed by: Kirsty Lawrence On 06/14/2021 14:10:03 PM
[2021-06-14] MEDS ORDERED: ISOVUE-370 76% 100ML VIAL As Ordered ONE (14:12)
[2021-06-14] MEDS ORDERED: KETOROLAC 30 MG/ML 1ML VIAL IV ONE ×2 (14:20→21:05)
[2021-06-14 14:34] LABS: ALBUMIN 3.6 GM/DL (3.2-5.2); ALT/SGPT 27 U/L (12-78); BILIRUBIN,DIRECT 0.2 MG/DL (0.0-0.2); BILIRUBIN,TOTAL 0.8 MG/DL (0.2-1.0); CK-MB VALUE MASS 3.2 NG/ML (<3.6); CPK CREATINE PHOSPHOKINASE 179 U/L (39-308); LIPASE 115 U/L (73-393); MB/CK RELATIVE INDEX 1.79 (< OR =4); TOTAL PROTEIN 7.1 GM/DL (6.4-8.2); TROPONIN I < 0.02 NG/ML (< 0.10)
[2021-06-14 14:41] LABS: BASO # 0.1 10^3/uL (0.0-0.2); BASO % 0.8 % (0.0-1.0); EOS # 0.1 10^3/uL (0.0-0.5); HEMATOCRIT 44.5 % (42.0-52.0); HEMOGLOBIN 15.3 g/dl (13.5-17.5); LYMPH # 2.1 10^3/uL (1.5-5.0); LYMPH % 24.5 % (24.0-44.0); MEAN CORPUSCULAR HEMOGLOBIN 29.7 pg (27.0-33.0); MEAN CORPUSCULAR HGB CONC 34.4 g/dl (32.0-36.5); MEAN CORPUSCULAR VOLUME 86.4 fl (80.0-96.0); MONO # 0.7 10^3/uL (0.0-0.8); MONO % 8.4 % (2.0-8.0); NEUTROPHILS # 5.6 10^3/uL (1.5-8.5); PLATELET COUNT, AUTOMATED 242 10^3/uL (150-450); RED BLOOD COUNT 5.15 10^6/uL (4.30-6.10); WHITE BLOOD COUNT 8.6 10^3/uL (4.0-10.0)
--- NOTE | 2021-06-14 16:06 | REP ---
INDICATION: pain, rUQ and mid abdominal pain fall. COMPARISON: 05/09/2020 the latest prior TECHNIQUE: Standard helical technique after intravenous administration of 100 cc Isovue 370 FINDINGS: The lung bases are unchanged. The liver, gallbladder, spleen, pancreas, adrenal glands, and kidneys are within normal limits. The abdominal aorta and para-aortic regions are within normal limits for the patient's age. Calcific atherosclerotic changes again seen in the abdominal aorta. The bowel loops and the mesenteries are essentially unchanged. There is sigmoid colon diverticulosis status quo. There is no mass or adenopathy. There is no evidence of free fluid or free air. Bone window technique throughout the examination shows no significant change in the osseous structures. IMPRESSION: There is no significant change compared to the prior exam. There is no evidence of acute disease. <Electronically signed by Trevor Santana > 06/14/21 [id number]
--- NOTE | 2021-06-14 16:10 | REP ---
INDICATION: chest pain, trauma COMPARISON: 05/28/2021 the latest prior also CT angio chest TECHNIQUE: CT angiography of the chest attention pulmonary arteries after the intravenous administration of 75 cc Isovue 370 FINDINGS: There is excellent visualization of the pulmonary arterial vasculature. No focal filling defects are present would be considered consistent with acute pulmonary emboli. Limited evaluation of the thoracic aorta shows no gross abnormality or significant change from the prior exam. There are no pleural or pericardial effusions. There is no evidence of mediastinal or hilar adenopathy. The imaged upper abdomen and imaged osseous structures are unchanged. Note is again made of multiple vertebral body compression fractures and bony demineralization. Evaluation of the lung roberts shows no significant changes from the prior exam. Scattered areas of subsegmental atelectatic change and parenchymal fibrosis status quo. No new patchy opacities or significant nodules. IMPRESSION: There is no evidence of acute disease. Findings as described above. <Electronically signed by Trevro Santana > 06/14/21 [id number]
[2021-06-14] MEDS ORDERED: GLUCAGON INJ 1MG VIAL SC PRN (17:35)
[2021-06-14] MEDS ORDERED: GLUCOSE 4GM CHEW TABLET PO PRN (17:35)
[2021-06-14] MEDS ORDERED: MOM 30ML SUSPENSION UDC PO PRN (17:35)
[2021-06-14] MEDS ORDERED: DEXTROSE 50% 50 ML SYRINGE IV PRN (17:35)
[2021-06-14] MEDS ORDERED: MAALOX 30 ML SUSP *UDC PO PRN (17:35)
--- NOTE | 2021-06-14 17:55 | HPEPDOC ---
[facility] Medical History & Physical Date of Admission Jun 14, 2021 Date of Service: Jun 14, 2021 History and Physical Chief complaint: Who presented to ER with pain on the right side of his body History of present illness: Patient is a 76-year-old male with a PMHx of HTN, DM2, DLP, Syncope, Heart block (s/p PM), who presented to the emergency room with pain of his chest , abdomen and legs. Patient reported that yesterday he had his cellar cleaned and was about to walk down the stairs to evaluate, however, at the top of the stairs, he began to experience some dizziness. He hit the top of the head on ceiling fell down 5 steps while on his bottom. He was able to manage to grab the railing before going down all entire flight. Patient reported that when he grabbed the railing. He hit the right side of his chest and abdomen against a metal patsy. Patient was able to get back up and went back to bed, he reported that he is experiencing pain throughout the night and this morning came to the ER for further evaluation. Patient reports chest pain. Describes this as pressure-like, radiating to the left arm. Patient reports no cough, but reports shortness of breath. Denies any palpitations. Denies any excessive sweating. Patient denies any abdominal pain. Reports some nausea without vomiting. Denies any diarrhea. Reports his last bowel movement was yesterday without any evidence of blood. Denies any urinary discomfort. Denies any fevers but does report chills. Reports a poor appetite and no significant changes in his weight. 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 Review of Systems: 10 point review of systems complete, all negative otherwise stated in HPI Physical exam: - Vitals: BP [164/97], HR [73], RR [18], Sat [96%RA], Temp [97.6F] - General: Lying in bed, Speaking in full sentences, AAOx3 - HEENT: NC, AT, PERRLA - CVS: RRR, +S1S2 - Chest: R chest wall tenderness / Sternal tenderness on palpation - Lungs: Fair air entry bilaterally, No appreciable wheezing / rales / rhonchi - Abdomen: Soft, Non-distended, Tenderness at RUQ - Extremities: No lower extremity edema, No calf tenderness - Neuro: Patient is able to move all 4 extremities; 3/5 strength at upper extremities bilaterally; 3/5 strength at RLE (patient reports R sided chest / abdomen pain limiting movement), 4/5 strength at LLE - Skin: No visible rashes Labs: See below Imaging: CT head 06/14: No acute hemorrhage or calvarial fracture. CT C spine 06/14: No acute fracture. CT Chest 06/14: There is no evidence of acute disease. Findings as described above. CT abdomen / pelvis 06/14: There is no significant change compared to the prior exam. There is no evidence of acute disease. EKG: See below Assessment and Plan: Pre-syncope / Fall - Patient reported that he had lightheadedness and had slid down 5 steps - Patient is hemodynamically stable - Lab work benign - Imaging noted above; no evidence of fractures - Will check rib XR of R side - Will c/w Tylenol - Will start PT / OT; PFS for potential home services Chest pain - Patient describes chest pain, pressure-like, radiating to left arm - EKG was reviewed and is consistent with priors - Troponin has been negative; will continue with trend - Will get ECHO - Continue with telemetry monitoring Chronic hyponatremia - Patient appears to be chronically hyponatremic since at least 1998 - Will continue to monitor for now Heart block (Unclear etiology) - s/p PM HTN - In the emergency room, patient is hypertensive with systolics of 160 - c/w Amlodipine NIDDM2 - Will start ISS DLP - c/w Atorvastatin BPH - c/w Tamsulosin DVT prophylaxis - Will start Lovenox Disposition: - Anticipate 2 midnight stay Vital Signs Vital Signs Date Time Temp Pulse Resp B/P (MAP) Pulse Ox O2 Delivery O2 Flow Rate FiO2 06/14/21 17:46 161/105 (123) Room Air 06/14/21 17:42 67 06/14/21 14:15 96 06/14/21 11:26 97.6 25 Laboratory Data Labs 24H Laboratory Tests 2 06/14/21 13:44: Urine Color YELLOW, Urine Appearance CLEAR, Urine pH 5.0, Urine Specific [place] 1.020, Urine Protein NEGATIVE, Urine Glucose (UA) 3+H, Urine Ketones NEGATIVE, Urine Blood NEGATIVE, Urine Nitrite NEGATIVE, Urine Bilirubin NEGATIVE, Urine Urobilinogen 0.2, Urine Leukocyte Esterase NEGATIVE, Urine WBC (Auto) 1, Urine RBC (Auto) 0, Urine Hyaline Casts (Auto) 0, Urine Bacteria (Auto) NEGATIVE, Urine Squamous Epithelial Cells 0, Urine Mucus (Auto) SMALL, Urine Sperm (Auto) 06/14/21 13:45: Immature Granulocyte % (Auto) 0.3, Neutrophils (%) (Auto) 65.0, Lymphocytes (%) (Auto) 24.5, Monocytes (%) (Auto) 8.4H, Eosinophils (%) (Auto) 1.0, Basophils (%) (Auto) 0.8, Neutrophils # (Auto) 5.6, Lymphocytes # (Auto) 2.1, Monocytes # (Auto) 0.7, Eosinophils # (Auto) 0.1, Basophils # (Auto) 0.1, Nucleated Red Blood Cells % (auto) 0.0, Total Bilirubin 0.8, Direct Bilirubin 0.2, Aspartate Amino Transf (AST/SGOT) 18, Alanine Aminotransferase (ALT/SGPT) 27, Alkaline Phosphatase 118H, Total Creatine Kinase 179, Creatine Kinase MB 3.2, Creatine Kinase MB Relative Index 1.79, Troponin I < 0.02, Total Protein 7.1, Albumin 3.6, Albumin/Globulin Ratio 1.0, Lipase 115 06/14/21 13:51: POC Troponin I (Misc) 0.00 06/14/21 14:05: POC Glucose (Misc Panel) 131H, POC Sodium (Misc Panel) 132L, POC Potassium (Misc Panel) 3.6, POC Chloride (Misc Panel) 96L, POC Total CO2 (Misc Panel) 23.0, POC Blood Urea Nitrogen (Misc Panel 20, POC Ionized Calcium (Misc Panel) 4.7, POC Creatinine (Misc Panel) 0.6, POC Hematocrit (Misc Panel) 47.0 CBC/BMP Laboratory Tests 06/14/21 13:45 Home Medications Scheduled Atorvastatin Calcium (Atorvastatin Calcium) 40 Mg Tablet, 1 TAB PO DAILY Miscellaneous Medications Amlodipine Besylate (Amlodipine Besylate) 5 Mg Tablet Metaxalone (Metaxalone) 400 Mg Tablet Metformin HCl (Metformin HCl) 500 Mg Tablet Tamsulosin Hcl (Tamsulosin HCl) 0.4 Mg Capsule Allergies Coded Allergies: morphine (Verified Adverse Reaction, Intermediate, HYPOTENSION, 01/30/21) ALFREDITO AHMADI MD Jun 14, 2021 17:55
--- OUTSIDE RECORDS SUMMARY | 2021-06-14 17:55 | CCD ---
Author Organization Unknown Address [address] [place] [address] Phone [phone] Care Team Providers Care Theatrical Variety Agent Name Role Phone Sanjuanita Rolon Unavailable Unavailable Allergies Code Code System Name Reaction Severity Status Onset 7052 RxNorm Morphine Decreased Blood Pressure Mild to Moderat e Active 01/30/2021 Medications Name Status Start Date Stop Date amlodipine 10 mg tablet TAKE ONE TABLET BY MOUTH EVERY DAY Completed 03/25 amlodipine 5 mg tablet TAKE ONE TABLET [...] Fingerstick, Blood Blood Glucos e: mg/dl 161 [facility] Medical: 238 [facility] 02/09/2021 Urinalysis, Dipstick, Auto Bilirubin ne g [facility] Medical: 238 [facility] Blood 8 Main [facility] Medical: [address] [facility] Glucose 2000 Main [place] [facility] Medical: 238 [facility] Ketone 5 Main [place] [facility]: 238 [facility] Leukocytes neg Main [place] [facility]: [address] [facility] Nitrite neg Main [place] [facility] [facility] 238 [facility] Ph 5 Main [place] Medical[facility] 238 [facility] Protein 15 Main [place] Medical: 238 [facility] Specific [place] 1.025 Main [place] Medical: 238 [facility] Urobilinogen neg Ma in [place] Medical: 238 [facility] 02/02/2021 Glucose, Fingerstick, Blood High Bedside Glucose 251 mg/dL 83- 110 mg/dL Final [facility]: 83 0 [facility] Past Encounters 04/23/2021 Confusional State; Hypertensive Disorder; Type II Diabetes Mellitus Uncontrolled; Altered Bowel Function Sanjuanita Rolon MD: [address] [place] [phone], Ph. 04/09/2021 Cardiac Pacemaker in Situ; Hypertensive Disorder; Hyperlipidemia; Type II Diabetes Mellitus Uncontrolled; Muscle Pain; Depressive Disorder Sanjuanita Rolon MD: [address] [place] [phone], Ph. 04/03/2021 Hypertensive Disorder; Hyperlipidemia Josie Sinclair PA-C: [address] [place] [phone], Ph. 02/09/2021 Glycosuria; Hypertensive Disorder; Large Prostate; Type II Diabetes Mellitus Uncontrolled; Polyuria; Unable to Manage Medication Sanjuanita Rolon MD: [address] [place] [phone], Ph. Social History Tobacco Smoking Status Never Smoker Vaccine List None recorded. Plan of Care Reminders Provider Appointments None recorded. Lab None recorded. Referral None recorded. Procedures None recorded. Surgeries None recorded. Imaging None recorded. Vitals 04/23/2021 03:40PM HOSPITAL DISCHARGE Height Blood Pressure 76 in 114/77 mm[Hg] 04/09/2021 11:40AM TELEHEALTH 20 Height 76 in 02/09/2021 03:40PM HOSPITAL DISCHARGE Height Weight BMI Blood Pressure 76 in 237 lbs 6 oz 28.9 kg/m2 135/94 mm[Hg]
--- OUTSIDE RECORDS SUMMARY | 2021-06-14 17:55 | CCD ---
Author Organization Unknown Address [address] [place] [address] Phone [phone] Care Team Providers Care Tenter Frame Back Tender Name Role Phone Sanjuanita Rolon Unavailable Unavailable [...] Fingerstick, Blood Blood Glucos e: mg/dl 161 [facility] Medical: 238 [facility] 02/09/2021 Urinalysis, Dipstick, Auto Bilirubin ne g [facility] Medical: 238 [facility] Blood 8 Main [facility] Medical: 238 [facility] Glucose 2000 Main [facility] Medical: 238 [facility] Ketone 5 Main [place] Medical: 238 [facility] Leukocytes neg Main [place] Medical: 238 [facility] Nitrite neg Main [place] [facility] Medical: 238 [facility] Ph 5 Main [place] Medical: 238 [facility] Protein 15 Main Ca [facility] Medical: 238 [facility] Specific [place] 1.025 Main [place] Medical: 238 [facility] Urobilinogen neg Ma in [place] Medical: 238 [facility] 02/02/2021 Glucose, Fingerstick, Blood High Bedside Glucose 251 mg/dL 83- 110 mg/dL Final [facility]: [address] [facility] Past Encounters 04/09/2021 Cardiac Pacemaker in Situ; Hypertensive Disorder; Hyperlipidemia; Type II Diabetes Mellitus Uncontrolled; Muscle Pain; Depressive Disorder Sanjuanita Rolon MD: [address] [place] [phone], Ph. 04/03/2021 Hypertensive Disorder; Hyperlipidemia Josie Sinclair PA-C: [address] [place] [phone], Ph. 02/09/2021 Glycosuria; Hypertensive Disorder; Large Prostate; Type II Diabetes Mellitus Uncontrolled; Polyuria; Unable to Manage Medication Sanjuanita Rolon MD: [address] [place] [phone], Ph. Social History Tobacco Smoking Status Never Smoker Vaccine List None recorded. Plan of Care Reminders Provider Appointments None recorded. Lab None recorded. Referral None recorded. Procedures None recorded. Surgeries None recorded. Imaging None recorded. Vitals 04/09/2021 11:40AM TELEHEALTH 20 Height 76 in 02/09/2021 03:40PM HOSPITAL DISCHARGE Height Weight BMI Blood Pressure 76 in 237 lbs 6 oz 28.9 kg/m2 135/94 mm[Hg]
--- OUTSIDE RECORDS SUMMARY | 2021-06-14 17:55 | CCD | Continuity of Care Document ---
Author Author Magdy AHMADI M.D. Organization Unknown Address [address] [place] [phone] Phone [phone] Care Team Providers Care Coastal/Harbor Defense Officer Name Role Phone Paul Rushing MD [facility] [phone] Problems Description No Information Available Social History Type Date Description Comments Sex Unknown Allergies, Adverse Reactions, Alerts Description No Information Available Medications Description No Information Available Immunizations Description No Information Available Vital Signs Description No Information Available Results Test Acquired Date Facility Test Result H/L Range Note CBC W/Automated Diff 05/10/2021 [facility] CBC W/Automated Diff (SEE NOTE) [...] 80.0 Lymph 31.6 % 25.0 - 40.0 Curry 11.2 % High 3.0 - 8.0 Eos 3.7 % 0.0 - 7.0 Baso 1.1 % 0.0 - 2.0 %Ig 0.2 % High 0.0 - 0.0 %NRBC 0.0 % 0.0 - 0.0 #Neut 2.84 10^3/uL 2.00 - 6.90 #Lymph 1.72 10^3/uL 0.60 - 3.40 #Curry 0.61 10^3/uL 0.00 - 0.90 #Eos 0.20 10^3/uL 0.00 - 0.70 #Baso 0.06 10^3/uL 0.00 - 0.20 #Ig 0.01 10^3/uL 0.00 - 0.10 #NRBC 0.00 10^3/uL 0.00 - 0.00 Manual Diff NOT INDICATED RBC Morph NOT INDICATED Comprehensive Metabolic Panel 05/10/2021 [facility] Comprehensive Metabo (SEE NOTE) 2 [...] >60 mL/min 3 Laboratory test finding 05/09/2021 [facility] l Troponin T <0.01 NG/ML 0.00 - 0.10 4 Laboratory test finding 05/09/2021 [facility] l Troponin T <0.01 NG/ML 0.00 - 0.10 5 CBC W/Automated Diff 05/09/2021 [facility] CBC W/Automated Diff (SEE NOTE) [...] 80.0 Lymph 34.1 % 25.0 - 40.0 Curry 10.4 % High 3.0 - 8.0 Eos 3.9 % 0.0 - 7.0 Baso 0.9 % 0.0 - 2.0 %Ig 0.4 % High 0.0 - 0.0 %NRBC 0.0 % 0.0 - 0.0 #Neut 2.87 10^3/uL 2.00 - 6.90 #Lymph 1.94 10^3/uL 0.60 - 3.40 #Curry 0.59 10^3/uL 0.00 - 0.90 #Eos 0.22 10^3/uL 0.00 - 0.70 #Baso 0.05 10^3/uL 0.00 - 0.20 #Ig 0.02 10^3/uL 0.00 - 0.10 #NRBC 0.00 10^3/uL 0.00 - 0.00 Manual Diff NOT INDICATED RBC Morph NOT INDICATED Comprehensive Metabolic Panel 05/09/2021 [facility] Comprehensive Metabo (SEE NOTE) 7 [...] >60 mL/min 8 Laboratory test finding 05/09/2021 [facility] Magnesium Serum 1.7 mg/dL 1.7 - 2.2 Troponin T <0.01 NG/ML 0.00 - 0.10 9 CBC W/Automated Diff 05/08/2021 [facility] CBC W/Automated Diff (SEE NOTE) [...] 80.0 Lymph 26.3 % 25.0 - 40.0 Curry 9.0 % High 3.0 - 8.0 Eos 3.8 % 0.0 - 7.0 Baso 0.9 % 0.0 - 2.0 %Ig 0.4 % High 0.0 - 0.0 %NRBC 0.0 % 0.0 - 0.0 #Neut 3.33 10^3/uL 2.00 - 6.90 #Lymph 1.47 10^3/uL 0.60 - 3.40 #Curry 0.50 10^3/uL 0.00 - 0.90 #Eos 0.21 10^3/uL 0.00 - 0.70 #Baso 0.05 10^3/uL 0.00 - 0.20 #Ig 0.02 10^3/uL 0.00 - 0.10 #NRBC 0.00 10^3/uL 0.00 - 0.00 Manual Diff NOT INDICATED RBC Morph NOT INDICATED Comprehensive Metabolic Panel 05/08/2021 [facility] Comprehensive Metabo (SEE NOTE) 11 Sodium 131 [...] >60 mL/min 12 Laboratory test finding 05/08/2021 [facility] Hgba1c 8.2 % High 4.4 - 6.1 13 CBC W/Automated Diff 05/07/2021 [facility] CBC W/Automated Diff (SEE NOTE) [...] 80.0 Lymph 36.4 % 25.0 - 40.0 Curry 9.3 % High 3.0 - 8.0 Eos 3.1 % 0.0 - 7.0 Baso 1.3 % 0.0 - 2.0 %Ig 0.2 % High 0.0 - 0.0 %NRBC 0.0 % 0.0 - 0.0 #Neut 2.74 10^3/uL 2.00 - 6.90 #Lymph 2.00 10^3/uL 0.60 - 3.40 #Curry 0.51 10^3/uL 0.00 - 0.90 #Eos 0.17 10^3/uL 0.00 - 0.70 #Baso 0.07 10^3/uL 0.00 - 0.20 #Ig 0.01 10^3/uL 0.00 - 0.10 #NRBC 0.00 10^3/uL 0.00 - 0.00 Manual Diff NOT INDICATED RBC Morph NOT INDICATED Comprehensive Metabolic Panel 05/07/2021 [facility] Comprehensive Metabo (SEE NOTE) 15 [...] >60 mL/min 16 Laboratory test finding 05/07/2021 [facility] Magnesium Serum 1.6 mg/dL Low 1.7 - 2.2 Troponin T <0.01 NG/ML 0.00 - 0.10 17 Laboratory test finding 05/06/2021 [facility] Troponin T <0.01 NG/ML 0.00 - [...]
--- OUTSIDE RECORDS SUMMARY | 2021-06-14 17:59 | CCD ---
Author Author [facility] Organization [facility] Address Unknown Phone Unavailable Care Team Providers Care Edge Grinder Name Role Phone Scordo, M Josie PA [...] MIRANDA MD Unavailable Unavailable Megan, B Kody COMMUNITY RELATIONS ADVISOR Unavailable Unavailable Megan, B Kody COMMUNITY RELATIONS ADVISOR Unavailable Unavailable Megan, B Kody COMMUNITY RELATIONS ADVISOR Unavailable Unavailable Megan, B Kody COMMUNITY RELATIONS ADVISOR Unavailable Unavailable Megan, B Kody COMMUNITY RELATIONS ADVISOR Unavailable Unavailable Megan, B Kody COMMUNITY RELATIONS ADVISOR Unavailable Unavailable Megan, B Kody COMMUNITY RELATIONS ADVISOR Unavailable Unavailable Megan, B Kody COMMUNITY RELATIONS ADVISOR Unavailable Unavailable Megan, B Kody COMMUNITY RELATIONS ADVISOR Unavailable Unavailable Megan, B Kody COMMUNITY RELATIONS ADVISOR Unavailable Unavailable J LUISMG PENNINGTON MD Unavailable [...] SUPPLE, ILIANA Unavailable Unavailable [facility] [place] Unavailable Unavailable Maria Esther Miranda MD Unavailable [...] is protected by Article 27-F of the [facility] Public Health law. If you continue you may have access to information: Regarding HIV / AIDS; Provided by facilities licensed or operated by the [facility] Office of Mental Health; or Provided by the [facility] Office for People With Developmental Disabilities. If such information is present, then the following [facility] mandated warning applies: This information [...] law may result in a fine or chcf sentence or both. A general authorization for the release of medical or other information is NOT sufficient authorization for further disc losure. Allergies and Adverse Reactions Type Description Substance Reaction Status Data Source(s ) Food allergy MUSHROOMS MUSHROOMS [facility] Drug allergy MORPHINE MORPHINE ANAPHYLAXIS [place] [facility] Allergy to substance Mild to Moderate Morphine Decreased Blood Pres sure [place] ([facility]) Allergy to substance Mild to Moderate Morphine Decreased Blood Pres sure [place] ([facility]) Allergy to substance Mild to Moderate Morphine Decreased Blood Pres sure [place] ([facility]) Propensity to adverse reactions NO ALLERGIES ON FILE NO ALLERGIES ON FILE [facility] Propensity to adverse reactions MORPHINE AND RELATED Morphine And R elated Active [facility] Allergy to substance Allergy to substance Allergy to substance [place] ([facility]) Family History Family Member Name Family Member Gender Family Member Status Date o f Status Description Data Source(s) Unknown Unknown Problem [facility] ([facility]) Encounters Encounter Providers Location Date Indications Data Source(s ) Outpatient Attender: TRISH Escoto riley: Chris Barr MDConsultant: PAUL RUSHING MD 05/06/2021 02:14:00 PM EDT - 05/10/2021 11:20:00 AM EDT [facility] Patient discharged. Sanjuanita Rolon MD: [address], [facility] [address], Ph. Attender: Sanjuanita Rolon [facility] Medical 04/23/2021 12:00:00 AM EDT [place] ([facility]) Sanjuanita Rolon MD: [address], [facility] [place] [address], Ph. Attender: Sanjuanita Rolon [facility] Medical 04/09/2021 12:00:00 AM EDT [place] ([facility]) Sanjuanita Rolon MD: [address], [place] [address], Ph. Attender: Sanjuanita Rolon [facility] Medical 04/09/2021 12:00:00 AM EDT [facility]) Josie Sinclair PA-C: [address], [place] [address], Ph. Attender: Josie BRINK [facility] Medical 04/03/2021 12:00:00 AM EDT [place] ([facility]) Josie Sinclair PA-C: [address], [place] [address], Ph. Attender: Josie BRINK [facility] Medical 04/03/2021 12:00:00 AM EDT [place] ([facility]) Josie Sinclair PA-C: [address], [place] [address], Ph. Attender: Josie BRINK [facility] Medical 04/03/2021 12:00:00 AM EDT [place] ([facility]) Inpatient Attender: PAUL Escoto riley: Kody Guzman NPAttender: Chris Barr MDConsultant: PAUL RUSHING MD 03/15/2021 09:00:00 AM E DT - 03/21/2021 11:10:00 AM EDT [facility] Patient discharged. Outpatient Attender: [facility] 03/14/2021 12:0 3:00 AM EDT [facility] Outpatient Attender: PAUL RUSHING MD 2020 08:07:00 PM EDT - 03/15/2021 09:00:00 AM EDT [facility] Sanjuanita Rolon MD: [address], [place] [address], Ph. Attender: Sanjuanita Rolon [facility] Medical 02/09/2021 12:00:00 AM EDT [place] ([facility]) Sanjuanita Rolon MD: [address], [place] [address], Ph. Attender: Sanjuanita Rolon [facility] Medical 02/09/2021 12:00:00 AM EDT [place] ([facility]) Sanjuanita Rolon MD: [address] [place] [address], Ph. Attender: Sanjuanita Rolon [facility] 02/09/2021 12:00:00 AM EDT [place] ([facility]) Sanjuanita Rolon MD: [address] [place] [address], Ph. Attender: Sanjuanita Rolon [facility] 02/09/2021 12:00:00 AM EDT [place] ([facility]) Inpatient Attender: Kulwinder Pascual MDAdmitter: Kulwinder soriano MD [id number] 01/10/2021 11:52:00 PM EDT - 01/13/2021 02:52:00 PM EDT [facility] Patient discharged. Inpatient Attender: PAUL RUSHING MDA riley: ROSA MARIA HERRERAConsultant: PAUL RUSHING MD 01/10/2021 09:00:00 AM EDT - 01/10/2021 10:00:00 PM EDT [facility] Patient discharged. Outpatient Attender: PAUL RUSHING MD 2020 05:42:00 PM EDT - 01/10/2021 09:00:00 AM EDT [facility] SPECIMEN Attender: Ernestine Slatererrer: Ernestine Miranda MD 2E-S6A 10/25/2020 11:00:00 PM EST - 10/25/2020 11:59:00 PM [facility] Patient discharged. Outpatient Attender: Ernestine Morel: Ernestine Miranda MD 2E-HL 10/20/2020 11:00:00 PM EST - 10/20/2020 11:59:00 PM [facility] Patient discharged. Outpatient Attender: ERNESTINE Morel: ERNESTINE MIRANDA MD 2E-HL 10/17/2020 01:00:00 AM EST - 10/17/2020 11:59:00 PM [facility] Patient discharged. SPECIMEN Attender: Ernestine Miranda MDReferrer: Ernestine Miranda MD 2E-S6A 10/16/2020 11:00:00 PM EST - 10/16/2020 11:59:00 PM EST [facility] Patient discharged. SPECIMEN Attender: Ernestine Miranda MDReferrer: Ernestine Miranda MD 2E-S6A 10/10/2020 11:00:00 PM EST - 10/10/2020 11:59:00 PM EST [facility] Patient discharged. SPECIMEN Attender: Ernestine Miranda MDReferrer: Ernestine Miranda MD 2E-S6A 10/06/2020 10:40:00 AM EST - 10/06/2020 11:59:00 PM [facility] Patient discharged. SPECIMEN Attender: ERNESTINE MIRANDA MDReferrer: ERNESTINE MIRANDA MD 2E-S6A 10/04/2020 10:25:00 PM EST - 10/04/2020 11:59:00 PM EST [facility] Patient discharged. Emergency Attender: ILIANA LEY ES1-ES1 021 01:23:36 AM EST - 10/03/2020 11:17:00 AM EST [facility] Patient discharged. Outpatient Attender: Josie BRINK ALL 06/09/2020 02:10:02 PM EDT [facility] Outpatient Attender: Josie BRINK ALL 06/08/2020 01:47:01 PM EDT [facility] Outpatient Attender: SARA BRINK Physical [facility] 05/12/2020 0 3:08:00 PM EDT [facility] ([facility]) Outpatient Attender: Josie BRINK ALL 05/12/2020 08:24:01 AM EDT [facility] Outpatient Attender: Josie BRINK ALL 05/12/2020 08:24:01 AM EDT [facility] Medications Medication Brand Name Start Date [...] BY MOUTH EVERY DAY SOLD: 02/10/2021 Capps Novi atorvastatin 40 MG Oral Tablet ATORVASTATIN CALCIUM [...] tablet (5 mg total) by mouth daily [facility] iodixanol (VISIPAQUE) 320 MG/ML injection [id number] 01/12/2021 06:13 :23 PM EDT active As needed, Starting on Fri01/12/21 at 1813, Intra-Procedure [facility] Medication administered onsite lidocaine (PF) (XYLOCAINE-MPF) 1 % injection [id number] 06:08:49 PM EDT active As needed, Start ing on Fri01/12/21 at 1808, Intra-Procedure [facility] Medication administered onsite 2 ML Midazolam 1 MG/ML Injection midazolam (VERSED) in jection midazolam (VERSED) injection 01/12/2021 06:07:56 PM EDT active As needed, Starting on Fri01/12/21 at 1807, Intra-Procedure [facility] Medication administered onsite fentaNYL Citrate (PF) (SUBLIMAZE) injection [id number] 01/12/2021 06:07:51 PM EDT active As neede d, Starting on Fri01/12/21 at 1807, Intra-Procedure [facility] Medication administered onsite Cefazolin 1000 MG Injection ceFAZolin (ANCEF) injectio n ceFAZolin (ANCEF) injection 01/12/2021 06:07:26 PM EDT active As needed, Starting on Fri01/12/21 at 1807, Intra-Procedure [facility] Medication administered onsite normal saline flush 0.9 % injection 3 mL [id number] 01/12/2021 02:00:00 PM EDT 3 mL Intravenous active 3 mL , Intravenous, Every 8 hours (scheduled), First dose on Fri01/12/21 at 1400, Pre-op
Rapid push positive pressure flushing shall be performed with a 10 cc normal saline syringe to check the PATENCY of a PIV site prior to any infusion therapy initiation unless resistance is met.
[facility] Medication administered onsite normal saline flush 0.9 % injection 3 mL [id number] 01/12/2021 02:00:00 PM EDT 3 mL Intravenous active 3 mL , Intravenous, Every 8 hours (scheduled), First dose on Fri01/12/21 at 1400, Pre-op
Rapid push positive pressure flushing shall be performed with a 10 cc normal saline syringe to check the PATENCY of a PIV site prior to any infusion therapy initiation unless resistance is met.
[facility] Medication administered onsite Magnesium Chloride 0.43402 MEQ/ML / Pota ssium Chloride 0.0497 MEQ/ML / Sodium Acetate 0.0163 MEQ/ML / Sodium Chloride 0.0899 MEQ/ML / Sodium gluconate 5.02 MG/ML Injectable Solution [Normosol-R] electrolyte-R (NORMOSOL-R/PLASMALYTE-R) solution electrolyte-R (NORMOSOL-R/PLASMALYTE-R) solution 01/12 11:00:00 AM EDT Intravenous active at 5 0 mL/hr, Intravenous, Continuous, Starting on Fri01/12/21 at 1100, Pre-op [facility] Medication administered onsite Losartan Potassium 25 MG Oral Tablet losartan (COZAAR) tablet 50 mg losartan (COZAAR) tablet 50 mg 01/12/2021 09:00:00 AM EDT 50 mg Oral active 50 mg, Oral, Daily, First dose (after last modification) on Fri01/12/21 at 0900 [facility] Medication administered onsite Magnesium Hydroxide 80 MG/ML Oral Suspen zuleyma magnesium hydroxide (MILK OF MAGNESIA) 400 MG/5ML suspension 30 mL magnesium hydroxide (MILK OF MAGNESIA) 4 00 MG/5ML suspension 30 mL 01/12/2021 12:00:00 AM EDT 30 mL Oral active 30 mL, Oral, Daily PRN, constipation, Starting on Fri01/12/21 at 0000
If senna-docusate is not effective
[facility] Medication administered onsite Finasteride 5 MG Oral Tablet finasteride (PROSCAR) tab let 5 mg finasteride (PROSCAR) tablet 5 mg 01/11/2021 09:00:00 AM EDT 5 mg Oral active 5 mg, Oral, Daily, First dose on Fri01/11/21 at 0900 [facility] Medication administered onsite Losartan Potassium 25 MG Oral Tablet losartan (COZAAR) tablet 25 mg losartan (COZAAR) tablet 25 mg 01/11/2021 09:00:00 AM EDT 25 mg Oral aborted 25 mg, Oral, Daily, First dose on Fri01/11/21 at 0900 [facility] Medication administered onsite Insulin Lispro 100 [...] cover POC glucose at 08:00, 12:00, 17:00.
[facility] Medication administered onsite heparin (porcine) injection 5,000 Units [id number] 01/12/20 06:00:00 AM EDT 5000 U Subcutaneous active 5,000 Units , Subcutaneous, Every 8 hours (scheduled), First dose on Aleksandra 01/11/21 at 0600
If platelet count is less than 100,000 or hematocrit is less than 30, or if there is a 5 point decrease in hematocrit, do not give the dose and call physician/designee.
[facility] Medication administered onsite Amlodipine 5 MG Oral Tablet amLODIPine (NORVASC) table t 5 mg amLODIPine (NORVASC) tablet 5 mg 01/11/2021 04:00:00 AM EDT 5 mg Oral active 5 mg, Oral, Daily, First dose (after last modification) on Aleksandra 01/11/21 at 0400 [facility] Medication administered onsite Docusate Sodium 50 MG / sennosides, FCI 8.6 MG Oral Tablet senna-docusate (PERICOLACE) 8.6-50 MG 2 tablet senna-docusate (PERICOLACE) 8.6-50 MG 2 tablet 01/11/2021 04:00:00 AM EDT 2 {tbl} Oral active 2 tablet, Oral, Nightly, First dose on Aleksandra 01/11/21 at 0400
hold for loose stools
[facility] Medication administered onsite Simvastatin 20 MG Oral Tablet simvastatin (ZOCOR) tabl et 20 mg simvastatin (ZOCOR) tablet 20 mg 01/11/2021 04:00:00 AM EDT 20 mg Oral active 20 mg, Oral, Nightly, First dose on Aleksandra 01/11/21 at 0400 [facility] Medication administered onsite Acetaminophen 325 MG [...] mg from all sources in 24 hours."
[facility] Medication administered onsite Bisacodyl 10 MG Rectal Suppository bisacodyl (DULCOLAX ) suppository 10 mg bisacodyl (DULCOLAX) suppository 10 mg 01/11/2021 03:08:01 AM EDT 10 mg Rectal active 10 mg, Rectal, Daily PRN, constipation, Starting on Aleksandra 01/11/21 at 0308
Hold for BM. If senna-docusate and milk of magnesia are not effective
[facility] Medication administered onsite Mineral Oil 1000 MG/ML Enema mineral oil enema 1 enema mineral oil enema 1 enema 01/11/2021 03:08:01 AM EDT 1 {enema} Rectal active 1 enema, Rectal, Daily PRN, constipation, unrelieved by MOM/bisacodyl/senna-docusate, Starting on Aleksandra 01/11/21 at 0308
hold for loose stools
[facility] Medication administered onsite 40 mg 05/16/2020 [...] DAY completed amlodipine 10 MG Oral Tablet [place] ([facility]) Amlodipine 5 MG Oral Tablet amLODIPine (NORVASC) 5 MG tablet amLODIPine (NORVASC) 5 MG tablet 5 mg Oral aborted Ta ke 5 mg by mouth daily [facility] Finasteride 5 MG Oral Tablet finasteride (PROSCAR) 5 M G tablet finasteride (PROSCAR) 5 MG tablet 5 mg Oral aborted Ta ke 5 mg by mouth daily [facility] Atenolol 50 MG Oral Tablet atenolol (TENORMIN) 50 MG t ablet atenolol (TENORMIN) 50 MG tablet 50 mg Oral aborted Take 50 mg by mouth daily [facility] Losartan Potassium 25 MG Oral Tablet losartan (COZAAR) 25 MG tablet losartan (COZAAR) 25 MG tablet 25 mg Oral aborted Ta ke 25 mg by mouth daily [facility] glimepiride 2 MG Oral Tablet glimepiride (AMARYL) 2 MG tablet glimepiride (AMARYL) 2 MG tablet 2 mg Oral aborted Take 2 mg by mouth every morning before breakfast [facility] Sodium Chloride 1000 MG Oral Tablet sodium chloride 1 g tablet sodium chloride 1 g tablet 20 mg Oral aborted Take 20 mg by m outh daily [facility] Simvastatin 20 MG Oral Tablet simvastatin (ZOCOR) 20 M G tablet simvastatin (ZOCOR) 20 MG tablet 20 mg Oral aborted Steve e 20 mg by mouth nightly [facility] Tamsulosin hydrochloride 0.4 MG Oral Capsule tamsulosi n (FLOMAX) 0.4 MG CAPS tamsulosin (FLOMAX) 0.4 MG CAPS 0.4 mg Oral aborte d Take 0.4 mg by mouth daily [facility] Amlodipine 10 MG Oral Tablet amlodipine 10 mg tablet TAKE ONE TABLET BY MOUTH EVERY DAY amlodipine 10 mg tablet TAKE ONE TABLET BY MOUTH EVERY DAY completed amlodipine 10 MG Oral Tablet [place] ([facility]) Amlodipine 5 MG Oral Tablet amlodipine 5 mg tablet TAKE ONE TABLET BY MOUTH EVERY DAY amlodipine 5 mg tablet TAKE ONE TABLET BY MOUTH EVERY DAY completed amlodipine 5 MG Oral Tablet [place] ([facility]) Insurance Providers Payer name Policy type / Coverage type Policy ID Covered constitution party ID Covered constitution party's relationship to valderrama Policy [place] Plan Information MEDICARE [id number] SP [id number] MEDICARE [id number] SP [id number] MEDICARE Medicare [id number] MEDICARE Med [id number] Self [id number] MEDICARE [id number] SP [id number] MEDICARE [id number] SP [id number] A INSURANCE COVID-19 COVID Amrita C OVID MEDICARE [id number] Amrita [id number] K73 MEDICARE [id number] MEDICARE -O/P [id number] 18 [id number] MEDICARE PART A -O/P [id number] 18 [id number] MEDICARE UNAVAILABLE Amrita UNAVAILA BLE MEDICARE C [id number] S [id number] MEDICARE C [id number] S [id number] A MEDICARE PART A -O/P [id number] 18 [id number] MEDICARE PART A -O [id number] 18 [id number] MEDICARE PART A -I/P [id number] 18 [id number] MEDICARE PART B -PHYSICIAN [id number] 18 [id number] Medicare Natl Gov't Servi Medicare Primary [id number] [facility] [id number] Problems, Conditions, and Diagnoses Code Display Name Description Problem Type Effective Dates Data Source(s) R55 Syncope and collapse Syncope and collapse Diagnosis 05/06/2021 02:14:00 PM EDT [facility] N400 Benign prostatic hyperplasia without low er urinary tract symptoms Benign prostatic hyperplasia without lower urinary tract symptoms Diagnosis 05/06/2021 02:14:00 PM EDT [facility] R531 Weakness Weakness Diagnosis 05/06/2021 02:14:00 PM ED T [facility] E8342 Hypomagnesemia Hypomagnesemia Diagnosis 05/06/2021 02:14: 00 PM EDT [facility] F349 Persistent mood [affective] disorder, un specified Persistent mood [affective] disorder, unspecified Diagnosis 05/06/2021 02:14:00 PM EDT [facility] I10 Essential (primary) hypertension Essential (primary) h ypertension Diagnosis 05/06/2021 02:14:00 PM EDT [facility] E876 Hypokalemia Hypokalemia Diagnosis 05/06/2021 02:14:00 PM EDT [facility] E119 Type 2 diabetes mellitus without complic ations Type 2 diabetes mellitus without complications Diagnosis 05/06/2021 02:14:00 PM EDT [facility] Z955 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 Z950 Presence of cardiac pacemaker Presence of cardiac pace maker Diagnosis 05/06/2021 02:14:00 PM EDT [facility] E871 Hypo-osmolality and hyponatremia Hypo-osmolality and hyponatremia Diagnosis 05/06/2021 02:14:00 PM EDT [facility] R0789 Other chest pain Other chest pain Diagnosis 05/06/2021 02 :14:00 PM EDT [facility] R0609 Other forms of dyspnea Other forms of dyspnea Diagnosi s 03/15/2021 09:00:00 AM EDT [facility] R350 Frequency of micturition Frequency of micturition Diag nosis 03/15/2021 09:00:00 AM EDT [facility] R05 Cough Cough Diagnosis 03/15/2021 09:00:00 AM ED T [facility] F419 Anxiety disorder, unspecified Anxiety disorder, unspec ified Diagnosis 03/15/2021 09:00:00 AM EDT [facility] P71946 Pain in left knee Pain in left knee Diagnosis 03/15/2021 09:00:00 AM EDT [facility] E80497 Pain in right knee Pain in right knee Diagnosis 09:00:00 AM EDT [facility] M545 Low back pain Low back pain Diagnosis 03/15/2021 09:00:00 AM EDT [facility] N401 Benign prostatic hyperplasia with lower urinary tract symptoms Benign prostatic hyperplasia with lower urinary tract symptoms Diagnosis 03/15/2021 09:00:00 AM EDT [facility] Y55689 Personal history of pulmonary embolism P ersonal history of pulmonary embolism Diagnosis 03/15/2021 09:00:00 AM EDT [facility] J449 Chronic obstructive pulmonary disease, u nspecified Chronic obstructive pulmonary disease, unspecified Diagnosis 03/13/2021 08:07:00 PM EDT [facility] R296 Repeated falls Repeated falls Diagnosis 03/13/2021 08:07: 00 PM EDT [facility] E860 Dehydration Dehydration Diagnosis 03/13/2021 08:07:00 PM EDT [facility] 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 Diagnosis 03/13/2021 08:07:00 PM EDT [facility] E785 Hyperlipidemia, unspecified Hyperlipidemia, unspecifie d Diagnosis 03/13/2021 08:07:00 PM EDT [facility] E872 Acidosis Acidosis Diagnosis 03/13/2021 08:07:00 PM ED T [facility] R2689 Other abnormalities of gait and mobility Other abnormalities of gait and mobility Diagnosis 03/13/2021 08:07:00 PM EDT [facility] Z1152 ENCOUNTER FOR SCREENING FOR COVID-19 ENCOUNTER F OR SCREENING FOR COVID-19 Diagnosis 03/13/2021 08:07:00 PM EDT [facility] 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 Diagnosis 03/13/2021 08:07:00 PM EDT [facility] R94.31 Abnormal electrocardiogram [ECG] [EKG] A bnormal electrocardiogram (ECG) (EKG) Diagnosis 01/10/2021 11:52:00 PM EDT [facility] R55 Syncope and collapse Syncope and collapse Diagnosis 01/10/2021 11:52:00 PM EDT [facility] R911 Solitary pulmonary nodule Solitary pulmonary nodule Di agnosis 01/10/2021 09:00:00 AM EDT [facility] 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 Diagnosis 0 01/10/2021 09:00:00 AM EDT [facility] I454 Nonspecific intraventricular block Nonspecific i ntraventricular block Diagnosis 01/10/2021 09:00:00 AM T [facility] E1165 Type 2 diabetes mellitus with hyperglyce sharon Type 2 diabetes mellitus with hyperglycemia Diagnosis 01/08/2021 05:42:00 PM EDT [facility] G459 Transient cerebral ischemic attack, unsp ecified Transient cerebral ischemic attack, unspecified Diagnosis 01/08/2021 05:42:00 PM EDT [facility] S09.90XA Unspecified injury of head, initial enco unter Unspecified injury of head, initial enco Diagnosis 10/03/2020 01:23:36 AM EST [facility] R29.6 Repeated falls Repeated falls Diagnosis 10/03/2020 01:23: 36 AM [facility] [id number] Cardiac pacemaker in situ Cardiac Pacemaker in Situ Pr oblem 02/19/2021 12:00:00 AM EDT [place] ([facility]) [id number] Cardiac pacemaker in situ Cardiac Pacemaker in Situ Pr oblem 02/19/2021 12:00:00 AM EDT [place] ([facility]) [id number] Cardiac pacemaker in situ Cardiac Pacemaker in Situ Pr oblem 02/19/2021 12:00:00 AM EDT [place] ([facility]) [id number] Hyperlipidemia Hyperlipidemia Problem 02/09/2021 12:00: 00 AM EDT [place] ([facility]) [id number] Hyperlipidemia Hyperlipidemia Problem 02/09/2021 12:00: 00 AM EDT [place] ([facility]) [id number] Hyperlipidemia Hyperlipidemia Problem 02/09/2021 12:00: 00 AM EDT [place] ([facility]) 33701023 Hyperlipidemia Hyperlipidemia Problem 02/09/2021 12:00: 00 AM EDT [place] ([facility]) M25.562 Acute pain of left knee Acute pain of left knee 384821 01 01/11/2021 12:00:00 AM EDT [facility] R55 Syncope Syncope [id number] 01/11/2021 12:00:00 AM ED T [facility] R29.6 Frequent falls Frequent falls [id number] 01/11/2021 12:00: 00 AM EDT [facility] R94.31 Abnormal EKG Abnormal EKG [id number] 01/11/2021 12:00:00 A M EDT [facility] F03.90 Dementia Dementia [id number] 01/11/2021 12:00:00 AM ED T [facility] E78.5 Hyperlipemia Hyperlipemia 11512510 01/11/2021 12:00:00 A M EDT [facility] I10 Hypertension Hypertension [id number] 01/11/2021 12:00:00 A M EDT [facility] E11.9 Diabetes mellitus Diabetes mellitus [id number] 01/11/2021 12:00:00 AM EDT [facility] N40.0 Benign prostatic hyperplasia without low er urinary tract symptoms Benign localized hyperplasia of prostate 05/12/2020 08:23:18 AM EDT [facility] I10 Essential (primary) hypertension HTN, unspecified 05/12/2020 08:23:18 AM EDT [facility] 268.9 Vitamin D deficiency Vitamin D deficiency 05/12 08:23:18 AM EDT [facility] 250.80 Type 2 diabetes mellitus with hyperglyce sharon Type 2 diabetes mellitus with hyperglycemia 05/12/2020 08:23:18 AM EDT [facility] V12.59 History of myocardial infarction History of myocardial infarction 05/12/2020 08:23:18 AM EDT [facility] I45.19 Other right bundle-branch block Incomplete right bundl e branch block 05/12/2020 08:23:18 AM EDT [facility] 276.1 Hyponatremia Hyponatremia 05/12/2020 08:23:18 A M EDT [facility] 780.2 Syncope Syncope 05/12/2020 08:23:18 AM ED T [facility] [id number] Syncope and collapse Syncope and Collapse Problem 05/12/2020 12:00:00 AM EDT [place] ([facility]) [id number] Large prostate Large Prostate Problem 05/12/2020 12:00: 00 AM EDT [facility]) [id number] Right bundle branch block Right Bundle Branch Block Pr oblem 05/12/2020 12:00:00 AM EDT [place] ([facility]) 78121209 Hypertensive disorder Hypertensive Disorder Problem 05/12/2020 12:00:00 AM EDT [place] ([facility]) [id number] Hypo-osmolality and or hyponatremia Hypo -osmolality and or Hyponatremia Problem 05/12/2020 12:00:00 AM EDT [place] ([facility]) 04253563 Vitamin D deficiency Vitamin D Deficiency Problem 05/12/2020 12:00:00 AM EDT [place] ([facility]) [id number] Type II diabetes mellitus uncontrolled T ype II Diabetes Mellitus Uncontrolled Problem 05/12/2020 12:00:00 AM EDT [place] ([facility]) [id number] Syncope and collapse Syncope and Collapse Problem 05/12/2020 12:00:00 AM EDT [place] ([facility]) 870159656 Large prostate Large Prostate Problem 05/12/2020 12:00: 00 AM EDT [place] ([facility]) [id number] Right bundle branch block Right Bundle Branch Block Pr oblem 05/12/2020 12:00:00 AM EDT [place] ([facility]) 02675838 Hypertensive disorder Hypertensive Disorder Problem 05/12/2020 12:00:00 AM EDT [place] ([facility]) 107875179 Hypo-osmolality and or hyponatremia Hypo -osmolality and or Hyponatremia Problem 05/12/2020 12:00:00 AM EDT [place] ([facility]) 21666262 Vitamin D deficiency Vitamin D Deficiency Problem 05/12/2020 12:00:00 AM EDT [place] ([facility]) 623770849 Type II diabetes mellitus uncontrolled T ype II Diabetes Mellitus Uncontrolled Problem 05/12/2020 12:00:00 AM EDT [place] ([facility]) 973085939 Syncope and collapse Syncope and Collapse Problem 05/12/2020 12:00:00 AM EDT [place] ([facility]) 346918524 Large prostate Large Prostate Problem 05/12/2020 12:00: 00 AM EDT [place] ([facility]) 47495735 Right bundle branch block Right Bundle Branch Block Pr oblem 05/12/2020 12:00:00 AM EDT [place] ([facility]) 71068789 Hypertensive disorder Hypertensive Disorder Problem 05/12/2020 12:00:00 AM EDT [place] ([facility]) 158914785 Hypo-osmolality and or hyponatremia Hypo -osmolality and or Hyponatremia Problem 05/12/2020 12:00:00 AM EDT [place] ([facility]) 35281556 Vitamin D deficiency Vitamin D Deficiency Problem 05/12/2020 12:00:00 AM EDT [place] ([facility]) 211100285 Type II diabetes mellitus uncontrolled T ype II Diabetes Mellitus Uncontrolled Problem 05/12/2020 12:00:00 AM EDT [place] ([facility]) 494577866 Syncope and collapse Syncope and Collapse Problem 05/12/2020 12:00:00 AM EDT [place] ([facility]) 010560484 Large prostate Large Prostate Problem 05/12/2020 12:00: 00 AM EDT [place] ([facility]) 82545691 Right bundle branch block Right Bundle Branch Block Pr oblem 05/12/2020 12:00:00 AM EDT [place] ([facility]) 02323244 Hypertensive disorder Hypertensive Disorder Problem 05/12/2020 12:00:00 AM EDT [place] ([facility]) 528787979 Hypo-osmolality and or hyponatremia Hypo -osmolality and or Hyponatremia Problem 05/12/2020 12:00:00 AM EDT [place] ([facility]) 77013186 Vitamin D deficiency Vitamin D Deficiency Problem 05/12/2020 12:00:00 AM EDT [place] ([facility]) 109817214 Type II diabetes mellitus uncontrolled T ype II Diabetes Mellitus Uncontrolled Problem 05/12/2020 12:00:00 AM EDT [place] ([facility]) Surgeries/Procedures Procedure Description Date Indications Data Source(s) ECHO TTHRC R-T 2D W/WOM-MODE COMPL SPEC&COLR DOP 05/08 12:00:00 AM EDT [facility] ([facility]) HOSPITAL DISCHARGE DAY MANAGEMENT 30 MIN/< 03/21/2021 12:00:00 AM EDT [facility] ([facility]) [facility] HOSPITAL CARE/DAY 15 MINUTES 03/20/2021 12:00:00 AM EDT [facility] ([facility]) [facility] HOSPITAL CARE/DAY 15 MINUTES 03/19/2021 12:00:00 AM EDT [facility] ([facility]) [facility] HOSPITAL CARE/DAY 15 MINUTES 03/18/2021 12:00:00 AM EDT [facility] ([facility]) [facility] HOSPITAL CARE/DAY 25 MINUTES 03/17/2021 12:00:00 AM EDT [facility] ([facility]) [facility] HOSPITAL CARE/DAY 25 MINUTES 03/16/2021 12:00:00 AM EDT [facility] ([facility]) Computerized Tomography (CT Scan) of Chest and Abdomen using Other Contrast Computerized Tomography (CT Scan) of Chest and Abdomen using Other Contrast 03/16/2021 12:00:00 AM EDT [facility] HOSPITAL CARE/DAY 25 MINUTES 03/15/2021 12:00:00 AM EDT [facility] ([facility]) Monitoring of Cardiac Electrical Activity, External Ap proach Monitoring of Cardiac Electrical Activity, External Approach 03/15/2021 12:00:00 AM EDT [facility] Introduction of Electrolytic and Water B alance Substance into Peripheral Vein, Percutaneous Approach Introduction of Electrolytic and Water B alance Substance into Peripheral Vein, Percutaneous Approach 03/15/2021 12:00:00 AM EDT [facility] HOSPITAL CARE/DAY 25 MINUTES 03/14/2021 12:00:00 AM EDT [facility] ([facility]) INITIAL HOSPITAL CARE/DAY 50 MINUTES 03/13/2021 12:00: 00 AM EDT [facility] ([facility]) GLUC BLD GLUC MNTR DEV CLEARED FDA SPEC HOME USE <td>P OCT GLUCOSE</td><td>Routine</td><td>01/13/2021 12:20 PM EDT</td><td></td><td> </td> 01/13/2021 12:20:00 PM EDT [facility] GLUC BLD GLUC MNTR DEV CLEARED FDA SPEC HOME USE <td>P OCT GLUCOSE</td><td>Routine</td><td>01/13/2021 8:53 AM EDT</td><td></td><td> </td> 01/13/2021 08:53:00 AM EDT [facility] BLOOD COUNT COMPLETE AUTOMATED <td>CBC</td><td>Routine </td><td>01/13/2021 7:35 AM EDT</td><td></td><td> </td> 01/13/2021 07:35:00 AM EDT [facility] BASIC METABOLIC PANEL CALCIUM TOTAL <td>BASIC METABOLI C PANEL</td><td>Routine</td><td>01/13/2021 7:35 AM EDT</td><td></td><td> </td> 01/13/2021 07:35:00 AM EDT [facility] GLUC BLD GLUC MNTR DEV CLEARED FDA SPEC HOME USE <td>P OCT GLUCOSE</td><td>Routine</td><td>01/12/2021 7:20 PM EDT</td><td></td><td> </td> 01/12/2021 07:20:00 PM EDT [facility] XR CHEST PORTABLE <td>XR CHEST PORTABLE</td><t d>STAT</td><td>01/12/2021 6:55 PM EDT</td><td></td><td> </td> 01/12/2021 06:55:43 PM EDT [facility] EP STUDY <td>EP STUDY</td><td>Routine </td><td>01/12/2021 6:27 PM EDT</td><td> Syncope, unspecified syncope type</td><td></td> 01/12/2021 06:27:59 PM EDT Syncope, unspecified syncope type [facility] Syncope, unspecified syncope type GLUC BLD GLUC MNTR DEV CLEARED FDA SPEC HOME USE <td>P OCT GLUCOSE</td><td>Routine</td><td>01/12/2021 12:36 PM EDT</td><td></td><td> </td> 01/12/2021 12:36:00 PM EDT [facility] GLUC BLD GLUC MNTR DEV CLEARED FDA SPEC HOME USE <td>P OCT GLUCOSE</td><td>Routine</td><td>01/12/2021 8:39 AM EDT</td><td></td><td> </td> 01/12/2021 08:39:00 AM EDT [facility] BLOOD COUNT COMPLETE AUTOMATED <td>CBC</td><td>Routine </td><td>01/12/2021 4:39 AM EDT</td><td></td><td> </td> 01/12/2021 04:39:00 AM EDT [facility] BASIC METABOLIC PANEL CALCIUM TOTAL <td>BASIC METABOLI C PANEL</td><td>Routine</td><td>01/12/2021 4:39 AM EDT</td><td></td><td> </td> 01/12/2021 04:39:00 AM EDT [facility] GLUC BLD GLUC MNTR DEV CLEARED FDA SPEC HOME USE <td>P OCT GLUCOSE</td><td>Routine</td><td>01/11/2021 6:50 PM EDT</td><td></td><td> </td> 01/11/2021 06:50:00 PM EDT [facility] FIBRIN DGRADJ PRODUCTS D-DIMER QUANTITATIVE <td>D-DIME R, QUANTITATIVE</td><td>STAT</td><td>01/11/2021 3:25 PM EDT</td><td></td><td> </td> 01/11/2021 03:25:00 PM EDT [facility] ECHO TTHRC R-T 2D W/WOM-MODE COMPL SPEC&COLR DOP <td>E CHOCARDIOGRAM TRANSTHORACIC</td><td>Routine</td><td>01/11/2021 8:47 AM EDT</td><td></td><td> </td> 01/11/2021 08:47:20 AM EDT [facility] TROPONIN QUANTITATIVE <td>TROPONIN I</td><td>Timed </td><td>01/11/2021 4:13 AM EDT</td><td></td><td> </td> 01/11/2021 04:13:00 AM EDT [facility] BLOOD COUNT COMPLETE AUTOMATED <td>CBC</td><td>Routine </td><td>01/11/2021 4:13 AM EDT</td><td></td><td> </td> 01/11/2021 04:13:00 AM EDT [facility] BASIC METABOLIC PANEL CALCIUM TOTAL <td>BASIC METABOLI C PANEL</td><td>Routine</td><td>01/11/2021 4:13 AM EDT</td><td></td><td> </td> 01/11/2021 04:13:00 AM EDT [facility] COVID/FLU AB/RSV PCR <td>COVID/FLU AB/RSV PCR</td ><td>STAT</td><td>01/11/2021 1:00 AM EDT</td><td></td><td> </td> 01/11/2021 01:00:00 AM EDT [facility] NT PRO BNP <td>NT PRO BNP</td><td>Routi ne</td><td>01/11/2021 12:57 AM EDT</td><td></td><td> </td> 01/11/2021 12:57:00 AM EDT [facility] TROPONIN QUANTITATIVE <td>TROPONIN I</td><td>Timed </td><td>01/11/2021 12:57 AM EDT</td><td></td><td> </td> 01/11/2021 12:57:00 AM EDT [facility] BLOOD COUNT COMPLETE AUTO&AUTO DIFRNTL WBC COUNT <td>C BC AND DIFFERENTIAL</td><td>STAT</td><td>01/11/2021 12:57 AM EDT</td><td></td><td> </td> 01/11/2021 12:57:00 AM EDT [facility] THYROID STIMULATING HORMONE TSH <td>TSH</td><td>Routin e</td><td>01/11/2021 12:57 AM EDT</td><td></td><td> </td> 01/11/2021 12:57:00 AM EDT [facility] THYROXINE FREE <td>T4, FREE</td><td>Routine </td><td>01/11/2021 12:57 AM EDT</td><td></td><td> </td> 01/11/2021 12:57:00 AM EDT [facility] MAGNESIUM <td>MAGNESIUM</td><td>Routin e</td><td>01/11/2021 12:57 AM EDT</td><td></td><td> </td> 01/11/2021 12:57:00 AM EDT [facility] HEMOGLOBIN GLYCOSYLATED A1C <td>HEMOGLOBIN A1C</td><td>Routine</td><td>01/11/2021 12:57 AM EDT</td><td></td><td> </td> 01/11/2021 12:57:00 AM EDT [facility] COMPREHENSIVE METABOLIC PANEL <td>COMPREHENSIVE METABO LIC PANEL</td><td>STAT</td><td>01/11/2021 12:57 AM EDT</td><td></td><td> </td> 01/11/2021 12:57:00 AM EDT [facility] ECG ROUTINE ECG W/LEAST 12 LDS TRCG ONLY W/O I&R <td>E CG 12- LEAD</td><td>Routine</td><td>01/11/2021 12:01 AM EDT</td><td></td><td></td> 01/11/2021 12:01:22 AM EDT [facility] HOSPITAL DISCHARGE DAY MANAGEMENT 30 MIN/< 01/10/2021 12:00:00 AM EDT [facility] ([facility] MD) Computerized Tomography (CT Scan) of Abdomen and Pelvi s using Other Contrast Computerized Tomography (CT Scan) of Abdomen and Pelvis using Other Contrast 01/10/2021 12:00:00 AM EDT [facility] Computerized Tomography (CT Scan) of Head using Other Contrast Computerized Tomography (CT Scan) of Head using Other Contrast 01/10/2021 12:00:00 AM EDT [facility] HOSPITAL CARE/DAY 25 MINUTES 01/09/2021 12:00:00 AM EDT [facility] ([facility]) INITIAL HOSPITAL CARE/DAY 50 MINUTES 01/08/2021 12:00: 00 AM EDT [facility] ([facility]) SARS CORONAVIRUS WITH COV-2 RNA, QUALITATIVE REAL-TIME RT-PCR <td>SARS CORONAVIRUS WITH COV-2 RNA, QUALITATIVE REAL-TIME RT- PCR</td><td>Routine</td><td>10/20/2020 7:00 AM EST</td><td></td><td> </td> 10/20/2020 07:00:00 AM EST [facility] CBC AND DIFFERENTIAL <td>CBC AND DIFFERENTIAL</td ><td>Routine</td><td>10/17/2020 8:45 AM EST</td><td></td><td> </td> 10/17/2020 08:45:00 AM [facility] HEMOGLOBIN GLYCOSYLATED A1C <td>HEMOGLOBIN A1C</td><td>Routine</td><td>10/17/2020 8:45 AM EST</td><td></td><td> </td> 10/17/2020 08:45:00 AM [facility] COMPREHENSIVE METABOLIC PANEL <td>COMPREHENSIVE METABO LIC PANEL</td><td>Routine</td><td>10/17/2020 8:45 AM EST</td><td></td><td> </td> 10/17/2020 08:45:00 AM [facility] Results ID Date Data Source [id number] 05/07/2021 09:09:00 [place] [address] HISTORY AND PHYSICALNAME: HAYLEE Forrester ROOM#: 110-1DATE OF : 1945 MR#: [id number] PHYS: Trish Ahmadi MD DATE: 05/06/21CHIEF COMPLAINT: [...] a history of CAD, stent placement. 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 Rushing. Workup was done atthe [...] help at home,he does not feel well. [place] that patient's chest pain is slowly improving, [...] a total of three back surgeries in [facility]. 2. Status post tonsillectomy.FAMILY HISTORY:Father of metastatic cancer, and mother of senile dementia and some sort of cancer. [address] [place] [address] HISTORY AND PHYSICALNAME: HAYLEE Forrester ROOM#: 110-1DATE OF : 1945 MR#: [id number] PHYS: Trish Ahmadi MD DATE: 05/06/21SOCIAL HISTORY:Patient [...] 129, potassium 3.5, chloride 93, CO2 22, [id number], BUN 19, creatinine is 0.9, GFR greater than 60, troponin less than 0.01.ASSESSMENT:A 76-year-old with chest pain, rule out ACS.PLAN: 1. Chest pain: Patient will be placed on Holter monitor and serial cardiac enzymes. Poolroom/Poolhall Manager Cardiology in the morning. Nitro for chest [...] Continue Zoloft 25 once a day. 2 [place] [address] HISTORY AND PHYSICAL NAME: HAYLEE Forrester ROOM#: [facility]-1 DATE OF : 1945 MR#: [id number] ATTENDING PHYS: Trish [facility]hmadi [id number] ADMISSION DATE: 05/06/21 8. BPH: Continue with Tamsulosin 0.4 once a day. 9. GI prophylaxis: Protonix 40 once a day. 10. DVT prophylaxis: Put on Lovenox 40 subcu once a day. 11. Discharge planning: Home when stable. Patient likely will need Physical Therapy evaluation and Tailer Off to see patient due to concern about no electricity or running water at home.DD: Trish Ahmadi MD 05/06/21 18:30DT: NIKITA 05/07/21 08:15DS: Trish Ahmadi MD 05/14/21 10:33 3 Name Value Range Interpretation Code Description Data Alma rce(s) Supporting Document(s) ID Date Data Source [id number] 05/10/2021 08:31:00 AM EDT [facility] [address] [place] [address] PHONE: [phone] FAX: [phone] Name .................. : HAYLEE Forrester Acct Number.................. : [id number] ROOM. ................. : 110-1 MR Number ................... : [id number] Stay type ............. : O/P Discharge Date......... ... : Admit Date ......... : 05/06/21 Admit Phys .................... : AHMADI HARD Date of ....... : 1945 Family Phys ................... : J LUIS VIDA Phone .................. : [phone] Age ................................ : 76 Film# .................. .:[id number] Sex ................................. : M Unsigned transcriptions are preliminary reports and do not represent a medical or legal document CAROTID [id number] COMPLETE:05/09/21 21:16 DLA 30602 (REASON FOR PROCEDURE :SYNCOPE ULTRASOUND CAROTID DUPLEX [...] than 50%. Unchanged. Page 1 of 2 [facility] [address] [place] [address] PHONE: [phone] FAX: [phone] Name .................. : HAYLEE Forrester Acct Number.................. : [id number] ROOM. ................. : 110-1 MR Number ................... : [id number] Stay type ............. : O/P Discharge Date......... ... : Admit Date ......... : 05/06/21 Admit Phys .................... : AHMADI HARD Date of ....... : 1945 Family Phys ................... : J LUIS MCPHERSON Phone .................. : [phone] Age ................................ : 76 Film# .................. .:[id number] Sex ................................. : M Unsigned transcriptions are preliminary reports and do not represent a medical or legal document [facility] [id number] COMPLETE:05/09/21 21:16 DLA [id number] (REASON FOR PROCEDURE :SYNCOPE Electronically Reviewed and [...] rce(s) Supporting Document(s) ID Date Data Source [id number] 05/10/2021 08:27:00 [place] [address] PHONE: [phone] FAX: [phone] Name .................. : HAYLEE Forrester Acct Number.................. : [id number] ROOM. ................. : 110-1 MR Number ................... : [id number] Stay type ............. : O/P Discharge Date......... ... : Admit Date ......... : 05/06/21 Admit Phys .................... : AHMADI HARD Date of ....... : 1945 Family Phys ................... : J LUIS MIR Phone .................. : [phone] Age ................................ : 76 Film# .................. .:[id number] Sex ................................. : M Unsigned transcriptions are preliminary reports and do not represent a medical or legal document CHEST 2 VIEWS [id number] COMPLETE:05/09/21 16:59 SRG 00460 Reason for Exam: syncope FRONTAL AND LATERAL [...] fax Copy for: J LUIS LUBIN via Collectric Copy for: EMERGENCY DEPT via modem Copy for: 710 MED REC Page 1 of 1 Name Value Range Interpretation Code Description Data Alma rce(s) Supporting Document(s) ID Date Data Source [id number] 05/10/2021 05:46:00 AM EDT [facility] ([facility]) Name Value Range Interpretation Code Description Data Alma rce(s) Supporting Document(s) Comprehensive [facility] COMPREHENSIVE METABOLIC PANEL Sodium 131 meq/L 134-153 Below low normal [facility] ( [facility]) Chloride 94 meq/L 98-107 Below low normal [facility] ( [facility]) Potassium 4.3 meq/L 3.6-5.0 [facility] ([facility]) Glucose 156 mg/dL 70-99 Above high normal [facility] ([facility]) BUN 19 mg/dL 7-21 [facility] ([facility]) Co2 27 meq/L 22-30 [facility] ([facility]) Creatinine 0.6 mg/dL 0.7-1.5 Below low normal [facility] ( [facility]) BUN/Creat 32 8-27 Above high normal [facility] ([facility]) Total Protein 6.1 g/dL 6.3-8.2 Below low normal [facility] ([facility]) Albumin 3.8 g/dL 3.9-5.0 Below low normal [facility] ( [facility]) Calcium 9.3 mg/dL 8.4-10.2 [facility] ([facility]) A/G Ratio 1.7 0.8-2.0 [facility] ([facility]) Globulin 2.3 GM/DL 2.4-3.2 Below low normal [facility] ( [facility]) Alkaline Phos 120 U/L 38-126 [facility] ([facility]) Total Bili Laboratory test result 0.2-1.3 [facility] ([facility]) SGPT/Alt 12 U/L 7-56 [facility] ([facility]) Sgot/Ast 14 U/L 5-40 [facility] ([facility]) Anion Gap 10.0 mmol/L 8.0-16.0 [facility] ([facility]) Age 76 yrs [facility] ([facility]) Non-Aa GFR Laboratory test result [facility] ([facility]) Afr Amer GFR Laboratory test result [facility] ([facility]) Male GFR Interprentation 20-49 yrs >60 mL/min [...] >32 mL/min Normal ID Date Data Source [id number] 05/10/2021 05:46:00 AM EDT [facility] ([facility]) Name Value Range Interpretation Code Description Data Alma rce(s) Supporting Document(s) CBC W/Automated Diff Laboratory test result [facility] ([facility]) COMPLETE BLOOD COUNT WBC 5.4 10^3/uL 4.2-11.0 [facility] ([facility]) RBC 4.84 10^6/uL 4.50-6.30 [facility] ([facility]) Hematocrit 41.6 % 41.0-51.0 [facility] ([facility]) Hemoglobin 14.1 g/dL 14.0-16.0 [facility] ([facility]) MCV 86.0 fL 80.0-94.0 [facility] ([facility]) MCH 29.1 pg 27.0-34.0 [facility] ([facility]) Platelets 265 10^3/uL 150-450 [facility] ([facility]) RDW 13.2 % 11.5-14.8 [facility] ([facility]) MCHC 33.9 g/dL 31.0-36.0 [facility] ([facility]) Lymph 31.6 % 25.0-40.0 [facility] ([facility]) Neut 52.2 % 37.0-80.0 [facility] ([facility]) MPV 9.3 fL 7.4-10.4 [facility] ([facility]) [place] 11.2 % 3.0-8.0 Above high normal [facility] ([facility]) Eos 3.7 % 0.0-7.0 [facility] ([facility]) Baso 1.1 % 0.0-2.0 [facility] ([facility]) %Ig 0.2 % 0.0-0.0 Above high normal [facility] ([facility]) %NRBC 0.0 % 0.0-0.0 [facility] ([facility]) #Lymph 1.72 10^3/uL 0.60-3.40 [facility] ([facility]) #[place] 0.61 10^3/uL 0.00-0.90 [facility] ([facility]) #Neut 2.84 10^3/uL 2.00-6.90 [facility] ([facility]) #Baso 0.06 10^3/uL 0.00-0.20 [facility] ([facility]) #Ig 0.01 10^3/uL 0.00-0.10 [facility] ([facility]) #Eos 0.20 10^3/uL 0.00-0.70 [facility] ([facility]) #NRBC 0.00 10^3/uL 0.00-0.00 [facility] ([facility]) Manual Diff Laboratory test result [facility] ([facility]) RBC Morph Laboratory test result [facility] ([facility]) ID Date Data Source [id number] 05/10/2021 05:46:00 AM EDT [facility] ([facility] [...] (Paul Rushing MD) ID Date Data Source [id number] 05/10/2021 05:46:00 AM EDT [facility] ([facility] [...] >32 mL/min Normal ID Date Data Source [id number] 05/10/2021 07:18:00 AM EDT [facility] Name Value Range Interpretation Code Description Data Alma rce(s) Supporting Document(s) COMPREHENSIVE METABOLIC PANEL [facility] COMPREHENSIVE METABOLIC PANEL Sodium [Moles/volume] in Serum or Plasma 131 mEq/L 134 - 153 L [facility] Potassium [Moles/volume] in Serum or Plasma 4.3 mEq/L 3.6 - 5.0 [facility] Chloride [Moles/volume] in Serum or Plasma 94 mEq/L 98 - 107 L [facility] Carbon dioxide, total [Moles/volume] in Serum or Plasma 27 MEQ/L 22 - 30 [facility] Glucose [Mass/volume] in Serum or Plasma 156 MG/DL 70 - 99 H [facility] BUN 19 MG/DL 7 - [facility] Creat[facility] [Mass/volume] in Serum or Plasma 0.6 MG/DL 0.7 - 1.5 L [facility] BUN/CREAT 32 8 - 27 H [facility] Protein [Mass/volume] in Serum or Plasma 6.1 G/DL 6.3 - 8.2 L [facility] Albumin [Mass/volume] in Serum or Plasma 3.8 G/DL 3.9 - 5.0 L [facility] Globulin [Mass/volume] in Serum by calculation 2.3 GM/DL 2.4 - 3.2 L [facility] A/G RATIO 1.7 0.8 - 2.0 [facility] Calcium [Mass/volume] in Serum or Plasma 9.3 MG/DL 8.4 - 10.2 [facility] Bilirubin.total [Mass/volume] in Serum or Plasma <0.7 MG/DL 0.2 - 1.3 [facility] Alkaline phosphatase [Enzymatic activity/volume] in Serum or Plasma 120 U/L 38 - 126 [facility] Aspartate aminotransferase [Enzymatic activity/volume] in Serum or Plasma 14 U/L 5 - 40 [facility] Alanine aminotransferase [Enzymatic activity/volume] in Seru m or Plasma 12 U/L 7 - 56 [facility] Anion gap 3 in Serum or Plasma 10.0 mmol/L 8.0 - 16.0 [facility] AGE 76 yrs [facility] NON-AA GFR >60 mL/min [facility] AFR AMER GFR >60 mL/min [facility] Male GFR In terprentation 20-49 [...] >32 mL/min Normal ID Date Data Source [id number] 05/10/2021 06:46:00 AM EDT [facility] Name Value Range Interpretation Code Description Data Alma rce(s) Supporting Document(s) CBC W/AUTOMATED DIFF [facility] COMPLETE BLOOD COUNT Leukocytes [#/volume] in Blood by Automated count 5.4 10^3/uL 4.2 - 1 1.0 [facility] Erythrocytes [#/volume] in Blood by Automated count 4.84 10^6/uL 4. 50 - 6.30 [facility] Hemoglobin [Mass/volume] in Blood 14.1 g/dL 14.0 - 16.0 [facility] Hematocrit [Volume Fraction] of Blood by Automated count 41.6 % 4 1.0 - 51.0 [facility] Erythrocyte mean corpuscular volume [Entitic volume] by Auto mated count 86.0 fL 80.0 - 94.0 [facility] Erythrocyte mean corpuscular hemoglobin [Entitic mass] by Automated count 29.1 pg 27.0 - 34.0 [facility] Erythrocyte mean corpuscular hemoglobin concentration [Mass/volume] by Automated count 33.9 g/dL 31.0 - 36.0 [facility] Erythrocyte distribution width [Ratio] by Automated count 13.2 % 11.5 - 14.8 [facility] Platelets [#/volume] in Blood by Automated count 265 10^3/uL 150 - 45 0 [facility] Platelet mean volume [Entitic volume] in Blood by Automated count 9.3 fL 7.4 - 10.4 [facility] Neutrophils/100 leukocytes in Blood by Automated count 52.2 % 37. 0 - 80.0 [facility] Lymphocytes/100 leukocytes in Blood by Manual count 31.6 % 25.0 - 40.0 [facility] Monocytes/100 leukocytes in Blood by Automated count 11.2 % 3.0 - 8.0 H [facility] Eosinophils/100 leukocytes in Blood by Automated count 3.7 % 0.0 - 7.0 [facility] Basophils/100 leukocytes in Blood by Automated count 1.1 % 0.0 - 2.0 [facility] %IG 0.2 % 0.0 - 0.0 [facility] %NRBC 0.0 % 0.0 - 0.0 [facility] al Neutrophils [#/volume] in Blood by Automated count 2.84 10^3/uL 2.00 - 6.90 [facility] Lymphocytes [#/volume] in Blood by Automated count 1.72 10^3/uL 0.60 - 3.40 [facility] Monocytes [#/volume] in Blood by Automated count 0.61 10^3/uL 0.00 - 0.90 [facility] Eosinophils [#/volume] in Blood by Automated count 0.20 10^3/uL 0.00 - 0.70 [facility] Basophils [#/volume] in Blood by Automated count 0.06 10^3/uL 0.00 - 0.20 [facility] #IG 0.01 10^3/uL 0.00 - 0.10 [facility] #NRBC 0.00 10^3/uL 0.00 - 0.00 [facility] MANUAL DIFF NOT INDICATED [facility] RBC MORPH NOT INDICATED [facility] spital ID Date Data Source [id number] 05/09/2021 09:15:00 PM EDT [facility] ([facility]) Name Value Range Interpretation Code Description Data Alma rce(s) Supporting Document(s) Troponin T.cardiac [Mass/volume] in Serum or Plasma Laborato ry test result 0.00-0.10 [facility] ([facility]) TROPONIN T 0.1 ng/ml Recommended as the clinical th reshold value for Troponin T. ID Date Data Source [id number] 05/09/2021 09:15:00 PM EDT [facility] (Paul Rushing [facility]) Name Value Range Interpretation Code Description Data Alma rce(s) Supporting Document(s) Troponin T.cardiac [Mass/volume] in Serum or Plasma Laborato ry test result 0.00-0.10 [facility] ([facility] Rushing [facility]) TROPONIN T 0.1 ng/ml Recommended as the clinical th reshold value for Troponin T. ID Date Data Source [id number] 05/09/2021 09:45:00 PM EDT [facility] Name Value Range Interpretation Code Description Data Alma rce(s) Supporting Document(s) TROPONIN T <0.01 NG/ML 0.00 - 0.10 [facility] TROPONIN T0.1 ng/ml Recommended as the c linical threshold value forTroponin T. ID Date Data Source [id number] 05/09/2021 08:35:00 [place] [address] RESPIRATORY CARE REPORT ==== ---------NAME------- NUMBER SEX AGE ADMIT DISC. XRAY# F/C KHARI Forrester [id number] M 76 05/06/21 [id number] MB4 O/P DATE OF : 1945 M/R# [id number] #: [id number] [id number] LOCATION: EMERGENCY DEPT EKG [id number] COMP LETE:05/09/21 15:33 [facility] [address] PHYSICIAN: DAIANA FELDMAN Name Value Range Interpretation Code Description Data Alma rce(s) Supporting Document(s) ID Date Data Source [id number] 05/09/2021 07:41:00 PM EDT [facility] [address] [place] [address] PHONE: [phone] FAX: [phone] Name .................. : HAYLEE Forrester Acct Number.................. : [id number] ROOM. ................. : 110-1 MR Number ................... : [id number] Stay type ............. : O/P Discharge Date......... ... : Admit Date ......... : 05/06/21 Admit Phys .................... : DAIANA ORDAZ Date of ....... : 1945 Family Phys ................... : J LUIS VIDA Phone .................. : [phone] Age ................................ : 76 Film# .................. .:[id number] Sex ................................. : M Unsigned transcriptions are preliminary reports and do not represent a medical or legal document CT HEAD W/O CONTRAST [id number] COMPLETE:05/09/21 12:27 ALEJANDRA [id number] (REASON FOR PROCEDURE :SYNCOPE CT BRAIN WI [...] 18:15, Dictation Date: Page 1 of 2 [place] [address] PHONE: [phone] FAX: [phone] Name .................. : RUBIOABHINAVKEENA MAGDY Forrester Acct Number.................. : [id number] ROOM. ................. : 110-1 MR Number ................... : [id number] Stay type ............. : O/P Discharge Date......... ... : Admit Date ......... : 05/06/21 Admit Phys .................... : DAIANA HARD Date of ....... : 1945 Family Phys ................... : J LUIS MCPHERSON Phone .................. : [phone] Age ................................ : 76 Film# .................. .:[id number] Sex ................................. : M Unsigned transcriptions are preliminary reports and do not represent a medical or legal document CT HEAD W/O CONTRAST [id number] COMPLETE:05/09/21 12:27 ALEJANDRA 85055 (REASON FOR PROCEDURE :SYNCOPE Copy for: OTONIEL Boykin via fax Copy for: J LUIS LUBIN via modem Copy for: EMERGENCY DEPT via modem Copy for: Felipa MED REC Page 2 of 2 Name Value Range Interpretation Code Description Data Alma rce(s) Supporting Document(s) ID Date Data Source [id number] 05/09/2021 03:20:00 PM EDT [facility] ([facility]) Name Value Range Interpretation Code Description Data Alma rce(s) Supporting Document(s) Troponin T.cardiac [Mass/volume] in Serum or Plasma Laborato ry test result 0.00-0.10 [facility] ([facility]) TROPONIN T 0.1 ng/ml Recommended as the clinical th reshold value for Troponin T. ID Date Data Source [id number] 05/09/2021 03:20:00 PM EDT [facility] ([facility] Rushing [facility]) Name Value Range Interpretation Code Description Data Alma rce(s) Supporting Document(s) Troponin T.cardiac [Mass/volume] in Serum or Plasma Laborato ry test result 0.00-0.10 [facility] TROPONIN T 0.1 ng/ml Recommended as the clinical th reshold value for Troponin T. ID Date Data Source [id number] 05/09/2021 04:10:00 PM EDT [facility] Name Value Range Interpretation Code Description Data Alma rce(s) Supporting Document(s) TROPONIN T <0.01 NG/ML 0.00 - 0.10 [facility] TROPONIN T0.1 ng/ml Recommended as the c linical threshold value forTroponin T. ID Date Data Source [id number] 05/09/2021 05:12:00 AM EDT [facility] ([facility]) Name Value Range Interpretation Code Description Data Alma rce(s) Supporting Document(s) Magnesium [Mass/volume] in Serum or Plasma 1.7 mg/dL 1.7-2.2 [facility] ([facility]) Troponin T.cardiac [Mass/volume] in Serum or Plasma Laborato ry test result 0.00-0.10 [facility] ([facility]) TROPONIN T 0.1 ng/ml Recommended as the clinical th reshold value for Troponin T. ID Date Data Source [id number] 05/09/2021 05:12:00 AM EDT [facility] ([facility]) Name Value Range Interpretation Code Description Data Alma rce(s) Supporting Document(s) Comprehensive [facility] Laboratory test result [facility] ([facility]) COMPREHENSIVE METABOLIC PANEL Sodium 130 meq/L 134-153 Below low normal [facility] ( [facility]) Chloride 95 meq/L 98-107 Below low normal [facility] ( [facility]) Potassium 3.9 meq/L 3.6-5.0 [facility] ([facility]) BUN 15 mg/dL 7-21 [facility] ([facility]) Glucose 146 mg/dL 70-99 Above high normal [facility] ([facility]) Co2 24 meq/L 22-30 [facility] ([facility]) Total Protein 5.9 g/dL 6.3-8.2 Below low normal [facility] ([facility]) BUN/Creat 25 8-27 [facility] ([facility]) Creatinine 0.6 mg/dL 0.7-1.5 Below low normal [facility] ( [facility]) Globulin 2.1 GM/DL 2.4-3.2 Below low normal [facility] ( [facility]) Albumin 3.8 g/dL 3.9-5.0 Below low normal [facility] ( [facility]) A/G Ratio 1.8 0.8-2.0 [facility] ([facility]) Calcium 8.9 mg/dL 8.4-10.2 [facility] ([facility]) Total Bili Laboratory test result 0.2-1.3 [facility] ([facility]) Alkaline Phos 119 U/L 38-126 [facility] ([facility]) Sgot/Ast 13 U/L 5-40 [facility] ([facility]) Age 76 yrs [facility] ([facility]) Anion Gap 11.0 mmol/L 8.0-16.0 [facility] SGPT/Alt 11 U/L 7-56 [facility] ([facility]) Afr Amer GFR Laboratory test result [facility] ([facility]) Male GFR Interprentation 20-49 yrs >60 mL/min [...] Normal Non-Aa GFR Laboratory test result [facility] ([facility]) ID Date Data Source [id number] 05/09/2021 05:12:00 AM EDT [facility] ([facility]) Name Value Range Interpretation Code Description Data Alma rce(s) Supporting Document(s) CBC W/Automated Diff Laboratory test result [facility] ([facility]) COMPLETE BLOOD COUNT WBC 5.7 10^3/uL 4.2-11.0 [facility] ([facility]) RBC 4.73 10^6/uL 4.50-6.30 [facility] ([facility]) Hematocrit 40.1 % 41.0-51.0 Below low normal [facility] ( [facility]) Hemoglobin 14.0 g/dL 14.0-16.0 [facility] ([facility]) MCH 29.6 pg 27.0-34.0 [facility] ([facility]) MCHC 34.9 g/dL 31.0-36.0 [facility] ([facility]) MCV 84.8 fL 80.0-94.0 [facility] ([facility]) RDW 12.8 % 11.5-14.8 [facility] ([facility]) Platelets 261 10^3/uL 150-450 [facility] ([facility]) Neut 50.3 % 37.0-80.0 [facility] ([facility]) MPV 9.6 fL 7.4-10.4 [facility] ([facility]) Lymph 34.1 % 25.0-40.0 [facility] ([facility]) [place] 10.4 % 3.0-8.0 Above high normal [facility] ([facility]) Eos 3.9 % 0.0-7.0 [facility] ([facility]) Baso 0.9 % 0.0-2.0 [facility] ([facility]) %NRBC 0.0 % 0.0-0.0 [facility] ([facility]) %Ig 0.4 % 0.0-0.0 Above high normal [facility] ([facility]) #Neut 2.87 10^3/uL 2.00-6.90 [facility] ([facility]) #[place] 0.59 10^3/uL 0.00-0.90 [facility] ([facility]) #Lymph 1.94 10^3/uL 0.60-3.40 [facility] ([facility]) #Eos 0.22 10^3/uL 0.00-0.70 [facility] ([facility]) #Baso 0.05 10^3/uL 0.00-0.20 [facility] ([facility]) #Ig 0.02 10^3/uL 0.00-0.10 [facility] ([facility]) #NRBC 0.00 10^3/uL 0.00-0.00 [facility] ([facility]) RBC Morph Laboratory test result [facility] ([facility]) Manual Diff Laboratory test result [facility] ([facility]) ID Date Data Source [id number] 05/09/2021 05:12:00 AM EDT [facility] ([facility] Rushing [...] for Troponin T. ID Date Data Source [id number] 05/09/2021 05:12:00 AM EDT [facility] ([facility] Rushing [...] >32 mL/min Normal ID Date Data Source [id number] 05/09/2021 05:12:00 AM EDT [facility] (Paul Rushing [...] (Paul Rushing MD) ID Date Data Source [id number] 05/09/2021 12:03:00 PM EDT [facility] Name Value Range Interpretation Code Description Data Alma rce(s) Supporting Document(s) TROPONIN T <0.01 NG/ML 0.00 - 0.10 [facility] TROPONIN T0.1 ng/ml Recommended as the c linical threshold value forTroponin T. ID Date Data Source [id number] 05/09/2021 11:56:00 AM EDT [facility] Name Value Range Interpretation Code Description Data Alma rce(s) Supporting Document(s) Magnesium [Mass/volume] in Serum or Plasma 1.7 MG/DL 1.7 - 2.2 [facility] ID Date Data Source [id number] 05/09/2021 06:40:00 AM EDT [facility] Name Value Range Interpretation Code Description Data Alma e(s) Supporting Document(s) COMPREHENSIVE METABOLIC PANEL [facility] COMPREHENSIVE METABOLIC PANEL Sodium [Moles/volume] in Serum or Plasma 130 mEq/L 134 - 153 L [facility] Potassium [Moles/volume] in Serum or Plasma 3.9 mEq/L 3.6 - 5.0 [facility] Chloride [Moles/volume] in Serum or Plasma 95 mEq/L 98 - 107 L [facility] Carbon dioxide, total [Moles/volume] in Serum or Plasma 24 MEQ/L 22 - 30 [facility] Glucose [Mass/volume] in Serum or Plasma 146 MG/DL 70 - 99 H [facility] BUN 15 MG/DL 7 - 21 [facility] Creatinine [Mass/volume] in Serum or Plasma 0.6 MG/DL 0.7 - 1.5 L [facility] BUN/CREAT 25 8 - 27 [facility] al Protein [Mass/volume] in Serum or Plasma 5.9 G/DL 6.3 - 8.2 L [facility] Albumin [Mass/volume] in Serum or Plasma 3.8 G/DL 3.9 - 5.0 L [facility] Globulin [Mass/volume] in Serum by calculation 2.1 GM/DL 2.4 - 3.2 L [facility] A/G RATIO 1.8 0.8 - 2.0 [facility] Calcium [Mass/volume] in Serum or Plasma 8.9 MG/DL 8.4 - 10.2 [facility] Bilirubin.total [Mass/volume] in Serum or Plasma <0.7 MG/DL 0.2 - 1.3 [facility] Alkaline phosphatase [Enzymatic activity/volume] in Serum or Plasma 119 U/L 38 - 126 [facility] Aspartate aminotransferase [Enzymatic activity/volume] in Serum or Plasma 13 U/L 5 - 40 [facility] Alanine aminotransferase [Enzymatic activity/volume] in Seru m or Plasma 11 U/L 7 - 56 [facility] Anion gap 3 in Serum or Plasma 11.0 mmol/L 8.0 - 16.0 [facility] AGE 76 yrs [facility] NON-AA GFR >60 mL/min [facility] AFR AMER GFR >60 mL/min [facility] Male GFR In terprentation 20-49 [...] >32 mL/min Normal ID Date Data Source [id number] 05/09/2021 06:07:00 AM EDT [facility] Name Value Range Interpretation Code Description Data Alma rce(s) Supporting Document(s) CBC W/AUTOMATED DIFF [facility] COMPLETE BLOOD COUNT Leukocytes [#/volume] in Blood by Automated count 5.7 10^3/uL 4.2 - 1 1.0 [facility] Erythrocytes [#/volume] in Blood by Automated count 4.73 10^6/uL 4. 50 - 6.30 [facility] Hemoglobin [Mass/volume] in Blood 14.0 g/dL 14.0 - 16.0 [facility] Hematocrit [Volume Fraction] of Blood by Automated count 40.1 % 4 1.0 - 51.0 L [facility] Erythrocyte mean corpuscular volume [Entitic volume] by Auto mated count 84.8 fL 80.0 - 94.0 [facility] Erythrocyte mean corpuscular hemoglobin [Entitic mass] by Automated count 29.6 pg 27.0 - 34.0 [facility] Erythrocyte mean corpuscular hemoglobin concentration [Mass/volume] by Automated count 34.9 g/dL 31.0 - 36.0 [facility] Erythrocyte distribution width [Ratio] by Automated count 12.8 % 11.5 - 14.8 [facility] Platelets [#/volume] in Blood by Automated count 261 10^3/uL 150 - 45 0 [facility] Platelet mean volume [Entitic volume] in Blood by Automated count 9.6 fL 7.4 - 10.4 [facility] Neutrophils/100 leukocytes in Blood by Automated count 50.3 % 37. 0 - 80.0 [facility] Lymphocytes/100 leukocytes in Blood by Manual count 34.1 % 25.0 - 40.0 [facility] Monocytes/100 leukocytes in Blood by Automated count 10.4 % 3.0 - 8.0 H [facility] Eosinophils/100 leukocytes in Blood by Automated count 3.9 % 0.0 - 7.0 [facility] Basophils/100 leukocytes in Blood by Automated count 0.9 % 0.0 - 2.0 [facility] %IG 0.4 % 0.0 - 0.0 [facility] %NRBC 0.0 % 0.0 - 0.0 [facility] al Neutrophils [#/volume] in Blood by Automated count 2.87 10^3/uL 2.00 - 6.90 [facility] Lymphocytes [#/volume] in Blood by Automated count 1.94 10^3/uL 0.60 - 3.40 [facility] Monocytes [#/volume] in Blood by Automated count 0.59 10^3/uL 0.00 - 0.90 [facility] Eosinophils [#/volume] in Blood by Automated count 0.22 10^3/uL 0.00 - 0.70 [facility] Basophils [#/volume] in Blood by Automated count 0.05 10^3/uL 0.00 - 0.20 [facility] #IG 0.02 10^3/uL 0.00 - 0.10 [facility] #NRBC 0.00 10^3/uL 0.00 - 0.00 [facility] MANUAL DIFF NOT INDICATED [facility] RBC MORPH NOT INDICATED [facility] sp[facility] ID Date Data Source [id number] 05/08/2021 12:11:00 [place] [address] CONSULTATIONNAME: HAYLEE Forrester ROOM#: 110-1DATE OF : 1945 MR#: [id number] PHYS: Trish Ahmadi MD DATE: 05/06/21REASON FOR [...] mg daily4. Sertraline 25 mg daily [address] [place] [address] CONSULTATIONNAME: HAYLEE Forrester ROOM#: 110-1DATE OF : 1945 MR#: [id number] PHYS: Trish Ahmadi [facility] [id number] DATE: 05/06/21 5. Flomax 0.4 mg dailyPHYSICAL [...] rce(s) Supporting Document(s) ID Date Data Source [id number] 05/08/2021 07:41:00 [place] [address] RESPIRATORY CARE REPORT ==== ---------NAME------- NUMBER SEX AGE ADMIT DISC. XRAY# F/C KHARI Forrester [id number] M 76 05/06/21 [id number] MB4 O/P DATE OF : 1945 M/R# [id number] #: [id number] 110-1 LOCATION: EMERGENCY DEPT EKG [id number] COMP LETE:05/07/21 04:21 [facility] [address] PHYSICIAN: DAIANA ORDAZ Name Value Range Interpretation Code Description Data Alma rce(s) Supporting Document(s) ID Date Data Source [id number] 05/08/2021 07:40:00 AM EDT [facility] [address] [place] [address] RESPIRATORY CARE REPORT ==== ---------NAME------- NUMBER SEX AGE ADMIT DISC. XRAY# F/C TYPESHETTLETON MAGDY Forrester [id number] M 76 05/06/21 [id number] MB4 O/P DATE OF : 1945 M/R# [id number] #: [id number] 110-1 [place] [id number] COMP LETE:05/07/21 04:08 [place] [address] PHYSICIAN: DAIANA Nino Name Value Range Interpretation Code Description Data Alma rce(s) Supporting Document(s) ID Date Data Source [id number] 05/08/2021 05:30:00 AM EDT [facility] ([facility]) Name Value Range Interpretation Code Description Data Alma rce(s) Supporting Document(s) Hemoglobin A1c/Hemoglobin.total in Blood 8.2 % 4.4-6.1 Above high normal [facility] ([facility]) {A1] {HB] ID Date Data Source [id number] 05/08/2021 05:30:00 AM EDT [facility] ([facility]) Name Value Range Interpretation Code Description Data Alma rce(s) Supporting Document(s) Sodium 131 meq/L 134-153 Below low normal [facility] ( [facility]) Comprehensive [employer] Laboratory test result [facility] ([facility]) COMPREHENSIVE METABOLIC PANEL Chloride 95 meq/L 98-107 Below low normal [facility] ( [facility]) Potassium 3.9 meq/L 3.6-5.0 [facility] ([facility]) Glucose 192 mg/dL 70-99 Above high normal [facility] ([facility]) BUN 12 mg/dL 7-21 [facility] ([facility]) Co2 23 meq/L 22-30 [facility] ([facility]) BUN/Creat 24 8-27 [facility] ([facility]) Creatinine 0.5 mg/dL 0.7-1.5 Below low normal [facility] ( [facility]) Globulin 2.3 GM/DL 2.4-3.2 Below low normal [facility] ( [facility]) Albumin 3.9 g/dL 3.9-5.0 [facility] ([facility]) Total Protein 6.2 g/dL 6.3-8.2 Below low normal [facility] ([facility]) Total Bili Laboratory test result 0.2-1.3 [facility] ([facility]) Calcium 9.0 mg/dL 8.4-10.2 [facility] ([facility]) A/G Ratio 1.7 0.8-2.0 [facility] ([facility]) Sgot/Ast 15 U/L 5-40 [facility] ([facility]) Alkaline Phos 128 U/L 38-126 Above high normal [facility] ([facility]) SGPT/Alt 12 U/L 7-56 [facility] ([facility]) Age 76 yrs [facility] ([facility]) Anion Gap 13.0 mmol/L 8.0-16.0 [facility] ([facility]) Afr Amer GFR Laboratory test result [facility] ([facility]) Male GFR Interprentation 20-49 yrs >60 mL/min [...] Normal Non-Aa GFR Laboratory test result [facility] ([facility]) ID Date Data Source [id number] 05/08/2021 05:30:00 AM EDT [facility] ([facility]) Name Value Range Interpretation Code Description Data Alma rce(s) Supporting Document(s) CBC W/Automated Diff Laboratory test result [facility] ([facility]) COMPLETE BLOOD COUNT WBC 5.6 10^3/uL 4.2-11.0 [facility] ([facility]) RBC 4.63 10^6/uL 4.50-6.30 [facility] ([facility]) Hemoglobin 13.6 g/dL 14.0-16.0 Below low normal [facility] ( [facility]) Hematocrit 39.0 % 41.0-51.0 Below low normal [facility] ( [facility]) MCV 84.2 fL 80.0-94.0 [facility] ([facility]) MCH 29.4 pg 27.0-34.0 [facility] ([facility]) RDW 12.9 % 11.5-14.8 [facility] ([facility]) MCHC 34.9 g/dL 31.0-36.0 [facility] ([facility]) MPV 9.3 fL 7.4-10.4 [facility] ([facility]) Neut 59.6 % 37.0-80.0 [facility] ([facility]) Platelets 251 10^3/uL 150-450 [facility] ([facility]) Lymph 26.3 % 25.0-40.0 [facility] ([facility]) [place] 9.0 % 3.0-8.0 Above high normal [facility] ([facility]) %Ig 0.4 % 0.0-0.0 Above high normal [facility] ([facility]) Baso 0.9 % 0.0-2.0 [facility] ([facility]) Eos 3.8 % 0.0-7.0 [facility] ([facility]) %NRBC 0.0 % 0.0-0.0 [facility] ([facility]) #Neut 3.33 10^3/uL 2.00-6.90 [facility] ([facility]) #[place] 0.50 10^3/uL 0.00-0.90 [facility] ([facility]) #Lymph 1.47 10^3/uL 0.60-3.40 [facility] ([facility]) #Eos 0.21 10^3/uL 0.00-0.70 [facility] ([facility]) #Baso 0.05 10^3/uL 0.00-0.20 [facility] ([facility]) #Ig 0.02 10^3/uL 0.00-0.10 [facility] ([facility]) #NRBC 0.00 10^3/uL 0.00-0.00 [facility] ([facility]) Manual Diff Laboratory test result M [facility] ([facility]) RBC Morph Laboratory test result [facility] ([facility]) ID Date Data Source [id number] 05/08/2021 05:30:00 AM EDT [facility] ([facility] Rushing [...] (navigational concept) 29.4 pg 27.0-34.0 [facility] (Paul Rushign MD) Laboratory test finding (navigational concept) 34.9 [...] (Paul Rushing MD) ID Date Data Source [id number] 05/08/2021 05:30:00 AM EDT [facility] ([facility]) Name Value Range Interpretation Code Description Data Alma rce(s) Supporting Document(s) Hemoglobin A1c/Hemoglobin.total in Blood 8.2 % 4.4-6.1 Above high normal [facility] ([facility]) {A1] {HB] ID Date Data Source [id number] 05/08/2021 05:30:00 AM EDT [facility] ([facility] Rushing [...] >32 mL/min Normal ID Date Data Source [id number] 05/08/2021 06:53:00 AM EDT [facility] Name Value Range Interpretation Code Description Data Alma rce(s) Supporting Document(s) COMPREHENSIVE METABOLIC PANEL [facility] COMPREHENSIVE METABOLIC PANEL Sodium [Moles/volume] in Serum or Plasma 131 mEq/L 134 - 153 L [facility] Potassium [Moles/volume] in Serum or Plasma 3.9 mEq/L 3.6 - 5.0 [facility] Chloride [Moles/volume] in Serum or Plasma 95 mEq/L 98 - 107 L [facility] Carbon dioxide, total [Moles/volume] in Serum or Plasma 23 MEQ/L 22 - 30 [facility] Glucose [Mass/volume] in Serum or Plasma 192 MG/DL 70 - 99 H [facility] BUN 12 MG/DL 7 - 21 [facility] Creatinine [Mass/volume] in Serum or Plasma 0.5 MG/DL 0.7 - 1.5 L [facility] BUN/CREAT 24 8 - 27 [facility] Protein [Mass/volume] in Serum or Plasma 6.2 G/DL 6.3 - 8.2 L [facility] Albumin [Mass/volume] in Serum or Plasma 3.9 G/DL 3.9 - 5.0 [facility] Globulin [Mass/volume] in Serum by calculation 2.3 GM/DL 2.4 - 3.2 L [facility] A/G RATIO 1.7 0.8 - 2.0 [facility] Calcium [Mass/volume] in Serum or Plasma 9.0 MG/DL 8.4 - 10.2 [facility] Bilirubin.total [Mass/volume] in Serum or Plasma <0.7 MG/DL 0.2 - 1.3 [facility] Alkaline phosphatase [Enzymatic activity/volume] in Serum or Plasma 128 U/L 38 - 126 H [facility] Aspartate aminotransferase [Enzymatic activity/volume] in Serum or Plasma 15 U/L 5 - 40 [facility] Alanine aminotransferase [Enzymatic activity/volume] in Seru m or Plasma 12 U/L 7 - 56 [facility] Anion gap 3 in Serum or Plasma 13.0 mmol/L 8.0 - 16.0 [facility] AGE 76 yrs [facility] NON-AA GFR >60 mL/min [facility] AFR AMER GFR >60 mL/min [facility] Male GFR In terprentation 20-49 [...] >32 mL/min Normal ID Date Data Source [id number] 05/08/2021 06:21:00 AM [facility] Name Value Range Interpretation Code Description Data Alma rce(s) Supporting Document(s) Hemoglobin A1c/Hemoglobin.total in Blood 8.2 % 4.4 - 6.1 H [facility] {A1]{HB] ID Date Data Source [id number] 05/08/2021 06:15:00 AM [facility] Name Value Range Interpretation Code Description Data Alma rce(s) Supporting Document(s) CBC W/AUTOMATED DIFF [facility] COMPLETE BLOOD COUNT Leukocytes [#/volume] in Blood by Automated count 5.6 10^3/uL 4.2 - 1 1.0 [facility] Erythrocytes [#/volume] in Blood by Automated count 4.63 10^6/uL 4. 50 - 6.30 [facility] Hemoglobin [Mass/volume] in Blood 13.6 g/dL 14.0 - 16.0 L [facility] Hematocrit [Volume Fraction] of Blood by Automated count 39.0 % 4 1.0 - 51.0 L [facility] Erythrocyte mean corpuscular volume [Entitic volume] by Auto mated count 84.2 fL 80.0 - 94.0 [facility] Erythrocyte mean corpuscular hemoglobin [Entitic mass] by Automated count 29.4 pg 27.0 - 34.0 [facility] Erythrocyte mean corpuscular hemoglobin concentration [Mass/volume] by Automated count 34.9 g/dL 31.0 - 36.0 [facility] Erythrocyte distribution width [Ratio] by Automated count 12.9 % 11.5 - 14.8 [facility] Platelets [#/volume] in Blood by Automated count 251 10^3/uL 150 - 45 0 [facility] Platelet mean volume [Entitic volume] in Blood by Automated count 9.3 fL 7.4 - 10.4 [facility] Neutrophils/100 leukocytes in Blood by Automated count 59.6 % 37. 0 - 80.0 [facility] Lymphocytes/100 leukocytes in Blood by Manual count 26.3 % 25.0 - 40.0 [facility] Monocytes/100 leukocytes in Blood by Automated count 9.0 % 3.0 - 8.0 H [facility] Eosinophils/100 leukocytes in Blood by Automated count 3.8 % 0.0 - 7.0 [facility] Basophils/100 leukocytes in Blood by Automated count 0.9 % 0.0 - 2.0 [facility] %IG 0.4 % 0.0 - 0.0 H [facility] al %NRBC 0.0 % 0.0 - 0.0 [facility] al Neutrophils [#/volume] in Blood by Automated count 3.33 10^3/uL 2.00 - 6.90 [facility] Lymphocytes [#/volume] in Blood by Automated count 1.47 10^3/uL 0.60 - 3.40 [facility] Monocytes [#/volume] in Blood by Automated count 0.50 10^3/uL 0.00 - 0.90 [facility] Eosinophils [#/volume] in Blood by Automated count 0.21 10^3/uL 0.00 - 0.70 [facility] Basophils [#/volume] in Blood by Automated count 0.05 10^3/uL 0.00 - 0.20 [facility] #IG 0.02 10^3/uL 0.00 - 0.10 [facility] #NRBC 0.00 10^3/uL 0.00 - 0.00 [facility] MANUAL DIFF NOT INDICATED [facility] RBC MORPH NOT INDICATED [facility] ID Date Data Source [id number] 05/07/2021 07:26:00 PM EDT [facility] [address] [place] [address] PHONE: [phone] FAX: [phone] Name .................. : HAYLEE Forrester Acct Number.................. : [id number] ROOM. ................. : 110-1 MR Number ................... : [id number] Stay type ............. : O/P Discharge Date......... ... : Admit Date ......... : 05/06/21 Admit Phys .................... : AHMADI HARD Date of ....... : 1945 Family Phys ................... : J LUIS VIDA Phone .................. : [phone] Age ................................ : 76 Film# .................. .:[id number] Sex ................................. : M Unsigned transcriptions are preliminary reports and do not represent a medical or legal document CHEST PORTABLE [id number] COMPLETE:05/06/21 15:24 ALEJANDRA [id number] Reason(s): Chest Pain PORTABLE CHEST SINGLE VIEW [...] rce(s) Supporting Document(s) ID Date Data Source [id number] 05/07/2021 05:16:00 AM EDT [facility] ([facility]) Name Value Range Interpretation Code Description Data Alma rce(s) Supporting Document(s) Magnesium [Mass/volume] in Serum or Plasma 1.6 mg/dL 1.7-2.2 [place] w low normal [facility] ([facility]) Troponin T.cardiac [Mass/volume] in Serum or Plasma Laborato ry test result 0.00-0.10 [facility] TROPONIN T 0.1 ng/ml Recommended as the clinical th reshold value for Troponin T. ID Date Data Source [id number] 05/07/2021 05:16:00 AM EDT [facility] ([facility]) Name Value Range Interpretation Code Description Data Alma rce(s) Supporting Document(s) Comprehensive [facility] Laboratory test result [facility] ([facility]) COMPREHENSIVE METABOLIC PANEL Potassium 4.0 meq/L 3.6-5.0 [facility] ([facility]) Sodium 130 meq/L 134-153 Below low normal [facility] ( [facility]) Chloride 97 meq/L 98-107 Below low normal [facility] ( [facility]) Glucose 166 mg/dL 70-99 Above high normal [facility] ([facility]) Co2 21 meq/L 22-30 Below low normal [facility] ([facility]) BUN/Creat 35 8-27 Above high normal [facility] ([facility]) Creatinine 0.6 mg/dL 0.7-1.5 Below low normal [facility] ( [facility]) BUN 21 mg/dL 7-21 [facility] ([facility]) Albumin 3.7 g/dL 3.9-5.0 Below low normal [facility] ( [facility]) Total Protein 5.7 g/dL 6.3-8.2 Below low normal [facility] ([facility]) Globulin 2.0 GM/DL 2.4-3.2 Below low normal [facility] ( [facility]) Calcium 8.8 mg/dL 8.4-10.2 [facility] ([facility]) Total Bili Laboratory test result 0.2-1.3 ME [facility] ([facility]) A/G Ratio 1.9 0.8-2.0 [facility] ([facility]) SGPT/Alt 11 U/L 7-56 [facility] ([facility]) Sgot/Ast 16 U/L 5-40 [facility] ([facility]) Alkaline Phos 119 U/L 38-126 [facility] ([facility]) Anion Gap 12.0 mmol/L 8.0-16.0 [facility] ([facility]) Age 76 yrs [facility] ([facility]) Afr Amer GFR Laboratory test result [facility] ([facility]) Male GFR Interprentation 20-49 yrs >60 mL/min [...] Normal Non-Aa GFR Laboratory test result [facility] ([facility]) ID Date Data Source [id number] 05/07/2021 05:16:00 AM EDT [facility] ([facility]) Name Value Range Interpretation Code Description Data Alma rce(s) Supporting Document(s) WBC 5.5 10^3/uL 4.2-11.0 [facility] ([facility]) CBC W/Automated Diff Laboratory test result [facility] ([facility]) COMPLETE BLOOD COUNT RBC 4.43 10^6/uL 4.50-6.30 Below low normal [facility] ([facility]) Hemoglobin 13.1 g/dL 14.0-16.0 Below low normal [facility] ( [facility]) Hematocrit 38.5 % 41.0-51.0 Below low normal [facility] ( [facility]) MCV 86.9 fL 80.0-94.0 [facility] ([facility]) MCH 29.6 pg 27.0-34.0 [facility] ([facility]) MCHC 34.0 g/dL 31.0-36.0 [facility] ([facility]) RDW 13.1 % 11.5-14.8 [facility] ([facility]) Platelets 218 10^3/uL 150-450 [facility] ([facility]) MPV 9.6 fL 7.4-10.4 [facility] ([facility]) Neut 49.7 % 37.0-80.0 [facility] ([facility]) [place] 9.3 % 3.0-8.0 Above high normal [facility] ([facility]) Lymph 36.4 % 25.0-40.0 [facility] ([facility]) Eos 3.1 % 0.0-7.0 [facility] ([facility]) Baso 1.3 % 0.0-2.0 [facility] ([facility]) %Ig 0.2 % 0.0-0.0 Above high normal [facility] ([facility]) %NRBC 0.0 % 0.0-0.0 [facility] ([facility]) #Neut 2.74 10^3/uL 2.00-6.90 [facility] ([facility]) #Lymph 2.00 10^3/uL 0.60-3.40 [facility] ([facility]) #[place] 0.51 10^3/uL 0.00-0.90 [facility] ([facility]) #Eos 0.17 10^3/uL 0.00-0.70 [facility] ([facility]) #Baso 0.07 10^3/uL 0.00-0.20 [facility] ([facility]) #Ig 0.01 10^3/uL 0.00-0.10 [facility] ([facility]) #NRBC 0.00 10^3/uL 0.00-0.00 [facility] ([facility]) RBC Morph Laboratory test result [facility] ([facility]) Manual Diff Laboratory test result [facility] ([facility]) ID Date Data Source [id number] 05/07/2021 05:16:00 AM EDT [facility] (Paul Rushing [...] (Paul Rushing MD) ID Date Data Source [id number] 05/07/2021 05:16:00 AM EDT [facility] ([facility] Rushing [...] finding (navigational concept) 76 yrs [facility] (Paul Ruhsing MD) Laboratory test finding (navigational concept) Laboratory [...] >32 mL/min Normal ID Date Data Source [id number] 05/07/2021 05:16:00 AM EDT [facility] ([facility] Rushing [...] (Paul Rushing MD) ID Date Data Source [id number] 05/07/2021 06:58:00 AM EDT [facility] Name Value Range Interpretation Code Description Data Alma rce(s) Supporting Document(s) TROPONIN T <0.01 NG/ML 0.00 - 0.10 [facility] TROPONIN T0.1 ng/ml Recommended as the c linical threshold value forTroponin T. ID Date Data Source [id number] 05/07/2021 06:52:00 AM EDT [facility] Name Value Range Interpretation Code Description Data Alma rce(s) Supporting Document(s) Magnesium [Mass/volume] in Serum or Plasma 1.6 MG/DL 1.7 - 2.2 L [facility] ID Date Data Source [id number] 05/07/2021 06:52:00 AM T [facility] Name Value Range Interpretation Code Description Data Alma rce(s) Supporting Document(s) COMPREHENSIVE METABOLIC PANEL [facility] COMPREHENSIVE METABOLIC PANEL Sodium [Moles/volume] in Serum or Plasma 130 mEq/L 134 - 153 L [facility] Potassium [Moles/volume] in Serum or Plasma 4.0 mEq/L 3.6 - 5.0 [facility] Chloride [Moles/volume] in Serum or Plasma 97 mEq/L 98 - 107 L [facility] Carbon dioxide, total [Moles/volume] in Serum or Plasma 21 MEQ/L 22 - 30 L [facility] Glucose [Mass/volume] in Serum or Plasma 166 MG/DL 70 - 99 H [facility] BUN 21 MG/DL 7 - 21 [facility] al Creatinine [Mass/volume] in Serum or Plasma 0.6 MG/DL 0.7 - 1.5 L [facility] BUN/CREAT 35 8 - [address] [facility] Protein [Mass/volume] in Serum or Plasma 5.7 G/DL 6.3 - 8.2 L [facility] Albumin [Mass/volume] in Serum or Plasma 3.7 G/DL 3.9 - 5.0 L [facility] Globulin [Mass/volume] in Serum by calculation 2.0 GM/DL 2.4 - 3.2 L [facility] A/G RATIO 1.9 0.8 - 2.0 [facility] Calcium [Mass/volume] in Serum or Plasma 8.8 MG/DL 8.4 - 10.2 [facility] Bilirubin.total [Mass/volume] in Serum or Plasma <0.7 MG/DL 0.2 - 1.3 [facility] Alkaline phosphatase [Enzymatic activity/volume] in Serum or Plasma 119 U/L 38 - 126 [facility] Aspartate aminotransferase [Enzymatic activity/volume] in Serum or Plasma 16 U/L 5 - 40 [facility] Alanine aminotransferase [Enzymatic activity/volume] in Seru m or Plasma 11 U/L 7 - 56 [facility] Anion gap 3 in Serum or Plasma 12.0 mmol/L 8.0 - 16.0 [facility] AGE [address] [facility] NON-AA GFR >60 mL/min [facility] ital AFR AMER GFR >60 mL/min [facility] Male GFR In terprentation 20-49 [...] >32 mL/min Normal ID Date Data Source [id number] 05/07/2021 06:13:00 AM EDT [facility] Name Value Range Interpretation Code Description Data Alma rce(s) Supporting Document(s) CBC W/AUTOMATED DIFF [facility] COMPLETE BLOOD COUNT Leukocytes [#/volume] in Blood by Automated count 5.5 10^3/uL 4.2 - 1 1.0 [facility] Erythrocytes [#/volume] in Blood by Automated count 4.43 10^6/uL 4. 50 - 6.30 L [facility] Hemoglobin [Mass/volume] in Blood 13.1 g/dL 14.0 - 16.0 L [facility] Hematocrit [Volume Fraction] of Blood by Automated count 38.5 % 4 1.0 - 51.0 L [facility] Erythrocyte mean corpuscular volume [Entitic volume] by Auto mated count 86.9 fL 80.0 - 94.0 [facility] Erythrocyte mean corpuscular hemoglobin [Entitic mass] by Automated count 29.6 pg 27.0 - 34.0 [facility] Erythrocyte mean corpuscular hemoglobin concentration [Mass/volume] by Automated count 34.0 g/dL 31.0 - 36.0 [facility] Erythrocyte distribution width [Ratio] by Automated count 13.1 % 11.5 - 14.8 [facility] Platelets [#/volume] in Blood by Automated count 218 10^3/uL 150 - 45 0 [facility] Platelet mean volume [Entitic volume] in Blood by Automated count 9.6 fL 7.4 - 10.4 [facility] Neutrophils/100 leukocytes in Blood by Automated count 49.7 % 37. 0 - 80.0 [facility] Lymphocytes/100 leukocytes in Blood by Manual count 36.4 % 25.0 - 40.0 [facility] Monocytes/100 leukocytes in Blood by Automated count 9.3 % 3.0 - 8.0 H [facility] Eosinophils/100 leukocytes in Blood by Automated count 3.1 % 0.0 - 7.0 [facility] Basophils/100 leukocytes in Blood by Automated count 1.3 % 0.0 - 2.0 [facility] %IG 0.2 % 0.0 - 0.0 H [facility] %NRBC 0.0 % 0.0 - 0.0 [facility] Neutrophils [#/volume] in Blood by Automated count 2.74 10^3/uL 2.00 - 6.90 [facility] Lymphocytes [#/volume] in Blood by Automated count 2.00 10^3/uL 0.60 - 3.40 [facility] Monocytes [#/volume] in Blood by Automated count 0.51 10^3/uL 0.00 - 0.90 [facility] Eosinophils [#/volume] in Blood by Automated count 0.17 10^3/uL 0.00 - 0.70 [facility] Basophils [#/volume] in Blood by Automated count 0.07 10^3/uL 0.00 - 0.20 [facility] #IG 0.01 10^3/uL 0.00 - 0.10 [facility] #NRBC 0.00 10^3/uL 0.00 - 0.00 [facility] MANUAL DIFF NOT INDICATED [facility] RBC MORPH NOT INDICATED [facility] spital ID Date Data Source [id number] 05/06/2021 09:55:00 PM EDT [facility] ([facility]) Name Value Range Interpretation Code Description Data Alma rce(s) Supporting Document(s) Troponin T.cardiac [Mass/volume] in Serum or Plasma Laborato ry test result 0.00-0.10 [facility] ([facility]) TROPONIN T 0.1 ng/ml Recommended as the clinical th reshold value for Troponin T. ID Date Data Source [id number] 05/06/2021 09:55:00 PM EDT [facility] ([facility]ushing [facility]) Name Value Range Interpretation Code Description Data Alma rce(s) Supporting Document(s) Troponin T.cardiac [Mass/volume] in Serum or Plasma Laborato ry test result 0.00-0.10 [facility] TROPONIN T 0.1 ng/ml Recommended as the clinical th reshold value for Troponin T. ID Date Data Source [id number] 05/06/2021 10:30:00 PM EDT [facility] Name Value Range Interpretation Code Description Data Alma rce(s) Supporting Document(s) TROPONIN T <0.01 NG/ML 0.00 - 0.10 [facility] TROPONIN T0.1 ng/ml Recommended as the c linical threshold value Patropodylon T. ID Date Data Source [id number] 05/06/2021 02:14:00 PM EDT [facility] 1 OrderSheet [facility] Emergency Department [address] [place] [address] Phone #: ext- [phone] 05/06/2021 14:09 Patient: MAGDY LEACH Sex: M [...] Barr ; Initialed: 15:03 Chris BarrDefined by [facility]) Cancelled: Physician Order 15:03 Victor Manuel,(05/04/2021) (Not JackFirst Test) (NotHospitalized) (Not) (NotResident inCongregate CareSetting) (NotEmployed inHealthcare Setting)DIAGNOSTIC STUDY ORDERSOrder Description Priority Entered Acknowledged InitialedChest Portable 1 STAT 14:39 05/06/2021 Ack'd: 14:51 15:10 Suzan Hernandez Jac k ; Edna Hernandez R.N.(Oxygen?(No)) R.NPark Reason for Study: Chest PainMEDICATION/IV/DRIP/FLUID ORDERSOrder Description Priority Entered Acknowledged InitialedAcetaminophen PO 14:39 05/06/2021 Ack'd: 14:51 15:02 Lindsay,650 mg (NOW x1) Chris Barr ; Edna Hernandez R.N. 2 OrderSheet [facility] Emergency Department [address] [place] [address] Phone #: ext- [phone] 05/06/2021 14:09 Patient: [...] rce(s) Supporting Document(s) ID Date Data Source [id number] 05/06/2021 02:14:00 PM EDT [facility] 1 Medication Reconciliation Report [facility] Emergency Department [address] [place] [address] Phone #: ext- [phone] 05/06/2021 14:09 [id number] Sex: M : 1945 Age: 76yWeight: 105.6 [...] Name Value Range Interpretation Code Description Data [facility](s) Supporting Document(s) ID Date Data Source [id number] 05/06/2021 02:14:00 PM EDT [facility] 1 Medication Administration Record [facility] Emergency Department [address] [place] [address] Phone #: ext- [phone] 05/06/2021 14:09 Patient: MAGDY LEACH Sex: M : 1945 Age: 76yWeight: 105.6 kgHeight/Length: 76 inBMI: 28.3ALLERGIES: Morphine and Related Date/Time Medication Administered Medication OrderedGiven ACETAMINOPHEN [PO] Acetaminophen PO 650 mg (NOW15:00 05/06/2021 Dose: 650 mg Tablets PO x1)Edna Hernandez R.N. Name Value Range Interpretation Code Description Data [facility] Document(s) ID Date Data Source [id number] 05/06/2021 02:14:00 PM EDT [facility] 1 General Instructions [facility] Emergency Department [address] [place] [address] Phone #: [phone]- [phone] 05/06/2021 14:09 Patient: MAGDY LEACH Sex: M [...] patient.Follow-up with: Paul Rushing MD, Cardiology, , [address] [place] [address], [facility] Follow up in two days if not well. Call for an appointment. Reason for referral: evaluation. ADDITIONAL INFORMATIONChest Wall Pain: Costochondritis 2 General Instructions [facility] Emergency Department [address] [place] [address] Phone #: [phone]- [phone] 05/06/2021 14:09 Patient: MAGDY LEACH Sex: M [...] that worsens the pain. 3 General Instructions [facility] Emergency Department [address] [place] [address] Phone #: ext- [phone] 05/06/2021 14:09 [id number] Sex: M : 1945 Age: 76y Take [...] or as directed by your healthcare provider [id number] [employer]. [address] [place] [address], [place] [address]. All rights reserved. This information is not [...] for a short time. 4 General Instructions [facility] Emergency Department [address] [place] [address] Phone #: ext- [phone] 05/06/2021 14:09 Patient: MAGDY LEACH Sex: M [...] confusion Fainting or loss of consciousness Seizure [id number] [employer]. [address] [place] [address]. All rights reserved. This information is not intended as asubstitute for professional medical care. Always follow your healthcare professional's instructions. You have been given the following additional information: Chest Wall Pain, Costochondritis Hyponatremia(Electronically signed by Chris Barr 05/06/2021 18:27) Name Value Range Interpretation Code Description Data Alma rce(s) Supporting Document(s) ID Date Data Source [id number] 05/06/2021 02:14:00 PM EDT [facility] 1 Clinical Report - Nurses [facility] Emergency Department [address] [place] [address] Phone #: [phone] yhx- [phone] 05/06/2021 14:09 Patient: MAGDY LEACH Sex: M [...] pacemaker [facility] and [facility] 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 (4 ASA given en route, 4LNC [...] Pulmonary Disease. 2 Clinical Report - Nurses [facility] Emergency Department [address] [place] [address] Phone #: ext- [phone] 05/06/2021 14:09 [id number] Sex: M : 1945 Age: 76yHypertension.Pulmonary Embolism.Hyponatremia. [...] R.N.FAMILY HX: 3 Clinical Report - Nurses [facility] Emergency Department [address] [place] [address] Phone #: ext- [phone] 05/06/2021 14:09 Patient: [...] monitor and pulse oximeter placed on patient; quality assurance monitor body- Lead II; monitoralarms on; monitor strip added [...] Hernandez R.N. 4 Clinical Report - Nurses [facility] Emergency Department [address] [place] [address] Phone #: ext- [phone] 05/06/2021 14:09 Patient: MAGDY LEACH Sex: M [...] ( Pt 5 Clinical Report - Nurses [facility] Emergency Department [address] [place] [address] Phone #: ext- [phone] 05/06/2021 14:09 [id number] Sex: M : 1945 Age: 76y intermittently [...] F. Pain level now 310. --17:39 05/06/21 [facility] Tech, [facility] Tech1 Departure time: late entry - 17:45 [...] rce(s) Supporting Document(s) ID Date Data Source [id number] 05/06/2021 02:14:00 PM EDT [facility] 1 Clinical Report - Physicians/Mid Levels [facility] Emergency Department [address] [place] [address] Phone #: ext- [phone] 05/06/2021 14:09 [facility]: [id number] Sex: M : 1945 Age: 76y Time [...] normal. No organomegaly. 2 Clinical Report - Physicians/[facility] Emergency Department [address] [place] [address] Phone #: ext- [phone] 05/06/2021 14:09 Patient: MAGDY LEACH [facility]#: [id number] Sex: M : 1945 Age: 76y Back: [...] Tests: COVID-19 CAH: (MAIKOL: 05/06/2021 14:59) ( VtgRcvd 05/06/2021 15:03) Canceled First test?: N Employed in healthcare?: N Symptomatic as defined by CDC?: Y Hospitalized?: N Chest Portable 1 View: (MAIKOL: 05/06/2021 14:39) ( MsgRcvd 05/06/2021 15:24) In Progress CHEST PORTABLE Reason(s): Chest Pain TRANSPORTATION: P IV? O2? Oxygen?(No) Room: ED BMP: (MAIKOL: 05/06/2021 14:37) ( VtgRcvd 05/06/2021 15:16) Final results Test Result Flag [...] (Reference) 3 Clinical Report - Physicians/Mid Levels [facility] Emergency Department [address] [place] [address] Phone #: ext- [phone] 05/06/2021 14:09 Patient: [...] IMPRESSION 4 Clinical Report - Physicians/Mid Levels [facility] Emergency Department [address] [place] [address] Phone #: ext- [phone] 05/06/2021 14:09 Patient: MAGDY LEACH [facility]#: [id number] Sex: M : 1945 Age: 76y Chest [...] Follow-up with: Paul Rushing MD, Cardiology, , [address] [place] [address], [id number] Follow up in two days if not well. Call for an appointment. Reason for referral: evaluation.(Electronically signed by Chris Barr 05/06/2021 18:27) Name Value Range Interpretation Code Description Data [facility] rce(s) Supporting Document(s) ID Date Data Source [id number] 05/06/2021 02:37:00 PM EDT [facility] (Paul Rushing [...] (navigational concept) 19 mg/dL 7-21 [facility] (Paul Rushnig MD) Laboratory test finding (navigational concept) 27 [...] >32 mL/min Normal ID Date Data Source [id number] 05/06/2021 02:37:00 PM EDT [facility] (Paul Rushing MD) Name Value Range Interpretation Code Description Data [facility]ma rce(s) Supporting Document(s) Troponin T.cardiac [Mass/volume] in Serum or Plasma Laborato ry test result 0.00-0.10 [facility] (Paul Rushing MD) TROPONIN T 0.1 ng/ml Recommended as the clinical th reshold value for Troponin T. ID Date Data Source [id number] 05/06/2021 02:37:00 PM EDT [facility] (Paul Rushing [...] (Paul Rushing MD) ID Date Data Source [id number] 05/06/2021 03:15:00 PM EDT [facility] Name Value Range Interpretation Code Description Data Alma rce(s) Supporting Document(s) BASIC METABOLIC PANEL [facility] BASIC METABOLIC PANEL Sodium [Moles/volume] in Serum or Plasma 129 mEq/L 134 - 153 L [facility] Potassium [Moles/volume] in Serum or Plasma 3.5 mEq/L 3.6 - 5.0 L [facility] Chloride [Moles/volume] in Serum or Plasma 93 mEq/L 98 - 107 L [facility] Carbon dioxide, total [Moles/volume] in Serum or Plasma 22 MEQ/L 22 - 30 [facility] Glucose [Mass/volume] in Serum or Plasma 173 MG/DL 70 - 99 H [facility] BUN 19 MG/DL 7 - 21 [facility] Creatinine [Mass/volume] in Serum or Plasma 0.7 MG/DL 0.7 - 1.5 [facility] BUN/CREAT 27 8 - 27 [facility] Calcium [Mass/volume] in Serum or Plasma 9.3 MG/DL 8.4 - 10.2 [facility] Anion gap 3 in Serum or Plasma 14.0 mmol/L 8.0 - 16.0 [facility] AGE 76 yrs [facility] AFR AMER GFR >60 mL/min [facility] NON-AA GFR >60 mL/min [facility] ital Male GFR Inter prentation 20-49 [...] >32 mL/min Normal ID Date Data Source [id number] 05/06/2021 03:15:00 PM EDT [facility] Name Value Range Interpretation Code Description Data [facility]ma rce(s) Supporting Document(s) TROPONIN T <0.01 NG/ML 0.00 - 0.10 [facility] TROPONIN T0.1 ng/ml Recommended as the c linical threshold value forTroponin T. ID Date Data Source [id number] 05/06/2021 02:53:00 PM EDT [facility] Name Value Range Interpretation Code Description Data [facility] rce(s) Supporting Document(s) CBC W/AUTOMATED DIFF [facility] COMPLETE BLOOD COUNT Leukocytes [#/volume] in Blood by Automated count 7.7 10^3/uL 4.2 - 1 1.0 [facility] Erythrocytes [#/volume] in Blood by Automated count 4.77 10^6/uL 4. 50 - 6.30 [facility] Hemoglobin [Mass/volume] in Blood 14.0 g/dL 14.0 - 16.0 [facility] Hematocrit [Volume Fraction] of Blood by Automated count 39.8 % 4 1.0 - 51.0 L [facility] Erythrocyte mean corpuscular volume [Entitic volume] by Auto mated count 83.4 fL 80.0 - 94.0 [facility] Erythrocyte mean corpuscular hemoglobin [Entitic mass] by Automated count 29.4 pg 27.0 - 34.0 [facility] Erythrocyte mean corpuscular hemoglobin concentration [Mass/volume] by Automated count 35.2 g/dL 31.0 - 36.0 [facility] Erythrocyte distribution width [Ratio] by Automated count 12.8 % 11.5 - 14.8 [facility] Platelets [#/volume] in Blood by Automated count 244 10^3/uL 150 - 45 0 [facility] Platelet mean volume [Entitic volume] in Blood by Automated count 9.0 fL 7.4 - 10.4 [facility] Neutrophils/100 leukocytes in Blood by Automated count 65.7 % 37. 0 - 80.0 [facility] Lymphocytes/100 leukocytes in Blood by Manual count 23.3 % 25.0 - 40.0 L [facility] Monocytes/100 leukocytes in Blood by Automated count 8.9 % 3.0 - 8.0 H [facility] Eosinophils/100 leukocytes in Blood by Automated count 1.2 % 0.0 - 7.0 [facility] Basophils/100 leukocytes in Blood by Automated count 0.8 % 0.0 - 2.0 [facility] %IG 0.1 % 0.0 - 0.0 [facility] %[facility] 0.0 % 0.0 - 0.0 [facility] al Neutrophils [#/volume] in Blood by Automated count 5.04 10^3/uL 2.00 - 6.90 [facility] Lymphocytes [#/volume] in Blood by Automated count 1.79 10^3/uL 0.60 - 3.40 [facility] Monocytes [#/volume] in Blood by Automated count 0.68 10^3/uL 0.00 - 0.90 [facility] Eosinophils [#/volume] in Blood by Automated count 0.09 10^3/uL 0.00 - 0.70 [facility] Basophils [#/volume] in Blood by Automated count 0.06 10^3/uL 0.00 - 0.20 [facility] #IG 0.01 10^3/uL 0.00 - 0.10 [facility] #NRBC 0.00 10^3/uL 0.00 - 0.00 [facility] MANUAL DIFF NOT INDICATED [facility] RBC MORPH NOT INDICATED [facility] spital ID Date Data Source [id number] 03/21/2021 10:33:00 [place] [address] PROGRESS NOTENAME: HAYLEE Forrester ROOM#: 110-1DATE OF : 1945 MR#: [id number] DATE: 03/15/21 OF SERVICE: 03/19/2021UBJECTIVE:The patient is [...] is very unstable when he walks. [address] [place] [id number] PROGRESS NOTENAME: HAYLEE Forrester ROOM#: 110-1DATE OF : 1945 MR#: [id number] DATE: 03/15/21 : Paul Rushing MD, PC 03/19/21 09:13DT: SSR 03/21/21 10:33DS: Paul Rushing MD, PC 03/30/21 08:27 2 Name Value Range Interpretation Code Description Data [facility] rce(s) Supporting Document(s) ID Date Data Source [id number] 03/20/2021 01:26:00 [place] [address] PROGRESS NOTENAME: HAYLEE Forrester ROOM#: 110-1DATE OF : 1945 MR#: [id number] DATE: 03/15/21 OF SERVICE: 03/20/2021UBJECTIVE:Patient remains unstable, [...] want to go to rehab center. 1 [place] [address] PROGRESS NOTENAME: HAYLEE Forrester ROOM#: 110-1DATE OF : 1945 MR#: [id number] DATE: 03/15/21 : Paul Rushing MD, PC 03/20/21 12:29DT: SSR 03/20/21 13:26DS: Paul Rushing MD, PC 03/30/21 08:27 2 Name Value Range Interpretation Code Description Data [facility] rce(s) Supporting Document(s) ID Date Data Source [id number] 03/16/2021 11:55:00 [place] [address] PROGRESS NOTENAME: HAYLEE Forrester ROOM#: [id number] OF : 1945 MR#: [id number] DATE: 03/15/21 OF SERVICE: 03/16/21SUBJECTIVE: This patient [...] 130, potassium 4.3, chloride 96, CO2 23, [id number], BUN 13, creatinine 0.5, BUN/creatinine ratio 26, [...] rce(s) Supporting Document(s) ID Date Data Source [id number] 03/15/2021 11:26:00 [place] [address] PROGRESS NOTENAME: HAYLEE Forrester ROOM#: [id number] OF : 1945 MR#: [id number] DATE: 03/15/21 OF SERVICE: 03/15/21SUBJECTIVE: This patient [...] rce(s) Supporting Document(s) ID Date Data Source [id number] 03/21/2021 11:28:00 [place] [address] DISCHARGE SUMMARYNAME: HAYLEE Forrester ROOM#: 110-1DATE OF : 1945 MR#: [id number] PHYS: Paul Rushing MD, PC [facility] [id number] DATE: 03/15/21 DISCHARGED: 03/21/21HISTORY OF PRESENT ILLNESS:This is 75-year-old white male presented with an episode of fall. He injured his left knee and hadpossible syncope. Patient claimed he was walking going to the window when suddenly he fainted,falling to the floor, causing injury to his left knee. He had an episode of syncope, and was admitted [facility]. On exam, blood pressure 130/80. Heart regular sinus rhythm. Lungs clear. Abdomen soft.Patient had a permanent pacemaker inserted in [place] for heart block. Admission impression wassyncope, episode [...] was normal. On 03/16, hemoglobin was 13.9, [id number]. On 03/17, hemoglobin was 15.6, sodium 129. [...] refused and signed out against medicaladvice. 1 [place] [address] DISCHARGE SUMMARYNAME: HAYLEE Forrester ROOM#: 110-1DATE OF : 1945 MR#: [id number] PHYS: Paul Rushing MD, PC DATE: 03/15/21 DISCHARGED: 03/21/21He will be discharged on Lipitor 40 mg daily, Flomax 0.4 mg daily, Metformin 500 mg bid, [id number] mg daily, amlodipine cut down to 5 [...] month.DD: Paul Rushing MD, PC 03/21/21 09:25DT: [facility] 03/21/21 11:28DS: Paul Rushing MD, PC 03/30/21 08:27 2 Name Value Range Interpretation Code Description Data [facility]ma rce(s) Supporting Document(s) ID Date Data Source [id number] 03/18/2021 11:29:00 PM EDT [address] [address] PROGRESS NOTENAME: HAYLEE Forrester ROOM#: [id number] OF : 1945 MR#: [id number] DATE: 03/15/21 OF SERVICE: 03/18/21SUBJECTIVE: Laboratory studies [...] rce(s) Supporting Document(s) ID Date Data Source [id number] 03/17/2021 09:57:00 [place] [address] PROGRESS NOTENAME: HAYLEE Forrester ROOM#: [id number] OF : 1945 MR#: [id number] DATE: 03/15/21 OF SERVICE: 03/17/21SUBJECTIVE: This is [...] is 97.8. Blood pressure 122/68. Pulses 81. [id number]. O2 saturation is 91% on room air. [...] Name Value Range Interpretation Code Description Data [facility](s) ID Date Data Source [id number] 03/21/2021 06:33:00 AM EDT [facility] Name Value Range Interpretation Code Description Data [facility] Supporting Document(s) COMPREHENSIVE METABOLIC PANEL [facility] COMPREHENSIVE METABOLIC PANEL Sodium [Moles/volume] in Serum or Plasma 131 mEq/L 134 - 153 L [facility] Potassium [Moles/volume] in Serum or Plasma 4.4 mEq/L 3.6 - 5.0 [facility] Chloride [Moles/volume] in Serum or Plasma 96 mEq/L 98 - 107 L [facility] Carbon dioxide, total [Moles/volume] in Serum or Plasma 27 MEQ/L 22 - 30 [facility] Glucose [Mass/volume] in Serum or Plasma 182 MG/DL 70 - 99 H [facility] BUN 26 MG/DL 7 - [address] [facility] Creatinine [Mass/volume] in Serum or Plasma 0.7 MG/DL 0.7 - 1.5 [facility] BUN/CREAT 37 8 - [address] [facility] Protein [Mass/volume] in Serum or Plasma 6.2 G/DL 6.3 - 8.2 L [facility] Albumin [Mass/volume] in Serum or Plasma 3.9 G/DL 3.9 - 5.0 [facility] Globulin [Mass/volume] in Serum by calculation 2.3 GM/DL 2.4 - 3.2 L [facility] A/G RATIO 1.7 0.8 - 2.0 [facility] Calcium [Mass/volume] in Serum or Plasma 9.2 MG/DL 8.4 - 10.2 [facility] Bilirubin.total [Mass/volume] in Serum or Plasma <0.7 MG/DL 0.2 - 1.3 [facility] Alkaline phosphatase [Enzymatic activity/volume] in Serum or Plasma 149 U/L 38 - 126 H [facility] Aspartate aminotransferase [Enzymatic activity/volume] in Serum or Plasma 23 U/L 5 - 40 [facility] Alanine aminotransferase [Enzymatic activity/volume] in Seru m or Plasma 32 U/L 7 - 56 [facility] Anion gap 3 in Serum or Plasma 8.0 mmol/L 8.0 - 16.0 [facility] AGE [address] [facility] NON-AA GFR >60 mL/min [facility] ital AFR AMER GFR >60 mL/min [facility] spital Male GFR In terprentation 20-49 [...] >32 mL/min Normal ID Date Data Source [id number] 03/21/2021 06:24:00 AM EDT [facility] Name Value Range Interpretation Code Description Data [facility] rce(s) Supporting Document(s) CBC W/AUTOMATED DIFF [facility] COMPLETE BLOOD COUNT Leukocytes [#/volume] in Blood by Automated count 6.1 10^3/uL 4.2 - 1 1.0 [facility] Erythrocytes [#/volume] in Blood by Automated count 5.01 10^6/uL 4. 50 - 6.30 [facility] Hemoglobin [Mass/volume] in Blood 15.0 g/dL 14.0 - 16.0 [facility] Hematocrit [Volume Fraction] of Blood by Automated count 43.4 % 4 1.0 - 51.0 [facility] Erythrocyte mean corpuscular volume [Entitic volume] by Auto mated count 86.6 fL 80.0 - 94.0 [facility] Erythrocyte mean corpuscular hemoglobin [Entitic mass] by Automated count 29.9 pg 27.0 - 34.0 [facility] Erythrocyte mean corpuscular hemoglobin concentration [Mass/volume] by Automated count 34.6 g/dL 31.0 - 36.0 [facility] Erythrocyte distribution width [Ratio] by Automated count 13.2 % 11.5 - 14.8 [facility] Platelets [#/volume] in Blood by Automated count 286 10^3/uL 150 - 45 0 [facility] Platelet mean volume [Entitic volume] in Blood by Automated count 8.8 fL 7.4 - 10.4 [facility] Neutrophils/100 leukocytes in Blood by Automated count 54.7 % 37. 0 - 80.0 [facility] Lymphocytes/100 leukocytes in Blood by Manual count 30.1 % 25.0 - 40.0 [facility] Monocytes/100 leukocytes in Blood by Automated count 11.1 % 3.0 - 8.0 H [facility] Eosinophils/100 leukocytes in Blood by Automated count 2.8 % 0.0 - 7.0 [facility] Basophils/100 leukocytes in Blood by Automated count 1.0 % 0.0 - 2.0 [facility] %IG 0.3 % 0.0 - 0.0 H [facility] %NRBC 0.0 % 0.0 - 0.0 [facility] al Neutrophils [#/volume] in Blood by Automated count 3.36 10^3/uL 2.00 - 6.90 [facility] Lymphocytes [#/volume] in Blood by Automated count 1.85 10^3/uL 0.60 - 3.40 [facility] Monocytes [#/volume] in Blood by Automated count 0.68 10^3/uL 0.00 - 0.90 [facility] Eosinophils [#/volume] in Blood by Automated count 0.17 10^3/uL 0.00 - 0.70 [facility] Basophils [#/volume] in Blood by Automated count 0.06 10^3/uL 0.00 - 0.20 [facility] #IG 0.02 10^3/uL 0.00 - 0.10 [facility] #NRBC 0.00 10^3/uL 0.00 - 0.00 [facility] MANUAL DIFF NOT INDICATED [facility] RBC MORPH NOT INDICATED [facility] spital ID Date Data Source [id number] 03/20/2021 07:09:00 AM EDT [facility] Name Value Range Interpretation Code Description Data [facility] rce(s) Supporting Document(s) COMPREHENSIVE METABOLIC PANEL [facility] COMPREHENSIVE METABOLIC PANEL Sodium [Moles/volume] in Serum or Plasma 131 mEq/L 134 - 153 L [facility] Potassium [Moles/volume] in Serum or Plasma 4.3 mEq/L 3.6 - 5.0 [facility] Chloride [Moles/volume] in Serum or Plasma 95 mEq/L 98 - 107 L [facility] Carbon dioxide, total [Moles/volume] in Serum or Plasma 26 MEQ/L 22 - 30 [facility] Glucose [Mass/volume] in Serum or Plasma 157 MG/DL 70 - 99 H [facility] BUN 24 MG/DL 7 - 21 H [facility] al Creatinine [Mass/volume] in Serum or Plasma 0.6 MG/DL 0.7 - 1.5 L [facility] BUN/CREAT 40 8 - [address] [facility] Protein [Mass/volume] in Serum or Plasma 6.3 G/DL 6.3 - 8.2 [facility] Albumin [Mass/volume] in Serum or Plasma 3.9 G/DL 3.9 - 5.0 [facility] Globulin [Mass/volume] in Serum by calculation 2.4 GM/DL 2.4 - 3.2 [facility] A/G RATIO 1.6 0.8 - 2.0 [facility] Calcium [Mass/volume] in Serum or Plasma 8.9 MG/DL 8.4 - 10.2 [facility] Bilirubin.total [Mass/volume] in Serum or Plasma <0.7 MG/DL 0.2 - 1.3 [facility] Alkaline phosphatase [Enzymatic activity/volume] in Serum or Plasma 140 U/L 38 - 126 H [facility] Aspartate aminotransferase [Enzymatic activity/volume] in Serum or Plasma 24 U/L 5 - 40 [facility] Alanine aminotransferase [Enzymatic activity/volume] in Seru m or Plasma 31 U/L 7 - 56 [facility] Anion gap 3 in Serum or Plasma 10.0 mmol/L 8.0 - 16.0 [facility] AGE 75 yrs [facility] al NON-AA GFR >60 mL/min [facility] ital AFR AMER GFR >60 mL/min [facility] sp[facility] Male GFR In terprentation 20-49 [...] >32 mL/min Normal ID Date Data Source [id number] 03/20/2021 06:57:00 AM EDT [facility] Name Value Range Interpretation Code Description Data [facility] rce(s) Supporting Document(s) CBC W/AUTOMATED DIFF [facility] COMPLETE BLOOD COUNT Leukocytes [#/volume] in Blood by Automated count 5.9 10^3/uL 4.2 - 1 1.0 [facility] Erythrocytes [#/volume] in Blood by Automated count 5.02 10^6/uL 4. 50 - 6.30 [facility] Hemoglobin [Mass/volume] in Blood 14.8 g/dL 14.0 - 16.0 [facility] Hematocrit [Volume Fraction] of Blood by Automated count 43.5 % 4 1.0 - 51.0 [facility] Erythrocyte mean corpuscular volume [Entitic volume] by Auto mated count 86.7 fL 80.0 - 94.0 [facility] Erythrocyte mean corpuscular hemoglobin [Entitic mass] by Automated count 29.5 pg 27.0 - 34.0 [facility] Erythrocyte mean corpuscular hemoglobin concentration [Mass/volume] by Automated count 34.0 g/dL 31.0 - 36.0 [facility] Erythrocyte distribution width [Ratio] by Automated count 13.2 % 11.5 - 14.8 [facility] Platelets [#/volume] in Blood by Automated count 299 10^3/uL 150 - 45 0 [facility] Platelet mean volume [Entitic volume] in Blood by Automated count 9.0 fL 7.4 - 10.4 [facility] Neutrophils/100 leukocytes in Blood by Automated count 48.5 % 37. 0 - 80.0 [facility] Lymphocytes/100 leukocytes in Blood by Manual count 35.7 % 25.0 - 40.0 [facility] Monocytes/100 leukocytes in Blood by Automated count 10.4 % 3.0 - 8.0 H [facility] Eosinophils/100 leukocytes in Blood by Automated count 3.9 % 0.0 - 7.0 [facility] Basophils/100 leukocytes in Blood by Automated count 1.0 % 0.0 - 2.0 [facility] %IG 0.5 % 0.0 - 0.0 [facility] %NRBC 0.0 % 0.0 - 0.0 [facility] al Neutrophils [#/volume] in Blood by Automated count 2.85 10^3/uL 2.00 - 6.90 [facility] Lymphocytes [#/volume] in Blood by Automated count 2.10 10^3/uL 0.60 - 3.40 [facility] Monocytes [#/volume] in Blood by Automated count 0.61 10^3/uL 0.00 - 0.90 [facility] Eosinophils [#/volume] in Blood by Automated count 0.23 10^3/uL 0.00 - 0.70 [facility] Basophils [#/volume] in Blood by Automated count 0.06 10^3/uL 0.00 - 0.20 [facility] #IG 0.03 10^3/uL 0.00 - 0.10 [facility] #NRBC 0.00 10^3/uL 0.00 - 0.00 [facility] MANUAL DIFF NOT INDICATED [facility] RBC MORPH NOT INDICATED [facility] spital ID Date Data Source [id number] 03/19/2021 07:11:00 [place] [address] RESPIRATORY CARE REPORT ==== ---------NAME------- NUMBER SEX AGE ADMIT DISC. XRAY# F/C KHARI Forrester [id number] M 75 03/15/21 [id number] M4 I/P DATE OF : 1945 M/R# [id number] PH#: [phone] 110-1 LOCATION: EMERGENCY DEPT EKG 60338 COMP LETE:03/19/21 02:40 VMT 72982 PHYSICIAN: J LUIS WILSON Name Value Range Interpretation Code Description Data [facility] rce(s) Supporting Document(s) ID Date Data Source [id number] 03/19/2021 04:52:00 [place] [address] PHONE: [phone] FAX: [phone] Name .................. : HAYLEE Forrester Acct Number.................. : [id number] ROOM. ................. : CCU1 MR Number ................... : [id number] Stay type ............. : I/P Discharge Date......... ... : Admit Date ......... : 03/15/21 Admit Phys .................... : J LUIS VIDA Date of ....... : 1945 Family Phys ................... : J LUIS VIDA Phone .................. : [phone] Age ................................ : 75 Film# .................. .:[id number] Sex ................................. : M Unsigned transcriptions are preliminary reports and do not represent a medical or legal document CT CTA CHEST NON-CORONARY W [address]276 COMPLETE:03/16/21 13:35 KBO 56857 Reason for Exam: PE CTA OF THE [...] imperative reconstructive techniques. Page 1 of 2 [facility] [address] [place] [address] [place] [address] PHONE: [phone] FAX: [phone] Name .................. : HAYLEE Forrester Acct Number.................. : [id number] ROOM. ................. : CCU1 MR Number ................... : [id number] Stay type ............. : I/P Discharge Date......... ... : Admit Date ......... : 03/15/21 Admit Phys .................... : J LUIS VIDA Date of ....... : 1945 Family Phys ................... : J LUIS VIDA Phone .................. : [phone] Age ................................ : 75 Film# .................. .:[id number] Sex ................................. : M Unsigned transcriptions are preliminary reports and do not represent a medical or legal document CT CTA CHEST NON-CORONARY W [place] [address] COMPLETE:03/16/21 13:35 KBO 78205 Reason for Exam: PE CT dose: 644.0 mGycm Contrast agent in mL: 75 Isovue 370 Method of administration: Intravenous Electronically Reviewed and Signed By Efren Cuellar M.D. , 03/19/21 16:52, [facility] Transcribe Initials: DZ , Transcribe Date: 03/17/21 02:56, Dictation Date: Copy for: 002 [facility] Copy for: 710 [facility] REC Page 2 of 2 Name Value Range Interpretation Code Description Data [facility] rce(s) Supporting Document(s) ID Date Data Source [id number] 03/19/2021 06:41:00 AM EDT [facility] Name Value Range Interpretation Code Description Data [facility] rce(s) Supporting Document(s) COMPREHENSIVE METABOLIC PANEL [facility] COMPREHENSIVE METABOLIC PANEL Sodium [Moles/volume] in Serum or Plasma 130 mEq/L 134 - 153 L [facility] Potassium [Moles/volume] in Serum or Plasma 4.2 mEq/L 3.6 - 5.0 [facility] Chloride [Moles/volume] in Serum or Plasma 97 mEq/L 98 - 107 L [facility] Carbon dioxide, total [Moles/volume] in Serum or Plasma 24 MEQ/L 22 - 30 [facility] Glucose [Mass/volume] in Serum or Plasma 200 MG/DL 70 - 99 H [facility] BUN 26 MG/DL 7 - 21 [facility] Creatinine [Mass/volume] in Serum or Plasma 0.6 MG/DL 0.7 - 1.5 L [facility] BUN/CREAT 43 8 - 27 [facility] Protein [Mass/volume] in Serum or Plasma 6.1 G/DL 6.3 - 8.2 L [facility] Albumin [Mass/volume] in Serum or Plasma 3.9 G/DL 3.9 - 5.0 [facility] Globulin [Mass/volume] in Serum by calculation 2.2 GM/DL 2.4 - 3.2 L [facility] A/G RATIO 1.8 0.8 - 2.0 [facility] al Calcium [Mass/volume] in Serum or Plasma 8.8 MG/DL 8.4 - 10.2 [facility] Bilirubin.total [Mass/volume] in Serum or Plasma <0.7 MG/DL 0.2 - 1.3 [facility] Alkaline phosphatase [Enzymatic activity/volume] in Serum or Plasma 140 U/L 38 - 126 H [facility] Aspartate aminotransferase [Enzymatic activity/volume] in Serum or Plasma 24 U/L 5 - 40 [facility] Alanine aminotransferase [Enzymatic activity/volume] in Seru m or Plasma 29 U/L 7 - 56 [facility] Anion gap 3 in Serum or Plasma 9.0 mmol/L 8.0 - 16.0 [facility] AGE 75 yrs [facility] NON-AA GFR >60 mL/min [facility] ital AFR AMER GFR >60 mL/min [facility] sp[facility] Male GFR In terprentation 20-49 [...] >32 mL/min Normal ID Date Data Source [id number] 03/19/2021 05:58:00 AM EDT [facility] Name Value Range Interpretation Code Description Data [facility] rce(s) Supporting Document(s) CBC W/AUTOMATED DIFF [facility] COMPLETE BLOOD COUNT Leukocytes [#/volume] in Blood by Automated count 7.0 10^3/uL 4.2 - 1 1.0 [facility] Erythrocytes [#/volume] in Blood by Automated count 4.83 10^6/uL 4. 50 - 6.30 [facility] Hemoglobin [Mass/volume] in Blood 14.4 g/dL 14.0 - 16.0 [facility] Hematocrit [Volume Fraction] of Blood by Automated count 41.4 % 4 1.0 - 51.0 [facility] Erythrocyte mean corpuscular volume [Entitic volume] by Auto mated count 85.7 fL 80.0 - 94.0 [facility] Erythrocyte mean corpuscular hemoglobin [Entitic mass] by Automated count 29.8 pg 27.0 - 34.0 [facility] Erythrocyte mean corpuscular hemoglobin concentration [Mass/volume] by Automated count 34.8 g/dL 31.0 - 36.0 [facility] Erythrocyte distribution width [Ratio] by Automated count 13.2 % 11.5 - 14.8 [facility] Platelets [#/volume] in Blood by Automated count 299 10^3/uL 150 - 45 0 [facility] Platelet mean volume [Entitic volume] in Blood by Automated count 8.9 fL 7.4 - 10.4 [facility] Neutrophils/100 leukocytes in Blood by Automated count 51.7 % 37. 0 - 80.0 [facility] Lymphocytes/100 leukocytes in Blood by Manual count 35.5 % 25.0 - 40.0 [facility] Monocytes/100 leukocytes in Blood by Automated count 8.2 % 3.0 - 8.0 H [facility] Eosinophils/100 leukocytes in Blood by Automated count 3.3 % 0.0 - 7.0 [facility] Basophils/100 leukocytes in Blood by Automated count 1.0 % 0.0 - 2.0 [facility] %IG 0.3 % 0.0 - 0.0 H [facility] al %NRBC 0.0 % 0.0 - 0.0 [facility] al Neutrophils [#/volume] in Blood by Automated count 3.64 10^3/uL 2.00 - 6.90 [facility] Lymphocytes [#/volume] in Blood by Automated count 2.50 10^3/uL 0.60 - 3.40 [facility] Monocytes [#/volume] in Blood by Automated count 0.58 10^3/uL 0.00 - 0.90 [facility] Eosinophils [#/volume] in Blood by Automated count 0.23 10^3/uL 0.00 - 0.70 [facility] Basophils [#/volume] in Blood by Automated count 0.07 10^3/uL 0.00 - 0.20 [facility] #IG 0.02 10^3/uL 0.00 - 0.10 [facility]ital #NRBC 0.00 10^3/uL 0.00 - 0.00 [facility] MANUAL DIFF NOT INDICATED [facility] RBC MORPH NOT INDICATED [facility] spital ID Date Data Source [id number] 03/18/2021 08:07:00 PM EDT [facility] Name Value Range Interpretation Code Description Data [facility] rce(s) Supporting Document(s) TROPONIN T <0.01 NG/ML 0.00 - 0.10 [facility] TROPONIN T0.1 ng/ml Recommended as the c linical threshold value forTroponin T. ID Date Data Source [id number] 03/18/2021 02:57:00 PM EDT [facility] Name Value Range Interpretation Code Description Data [facility](s) Supporting Document(s) COMPREHENSIVE METABOLIC PANEL [facility] COMPREHENSIVE METABOLIC PANEL Sodium [Moles/volume] in Serum or Plasma 127 mEq/L 134 - 153 L [facility] Potassium [Moles/volume] in Serum or Plasma 4.0 mEq/L 3.6 - 5.0 [facility] Chloride [Moles/volume] in Serum or Plasma 92 mEq/L 98 - 107 L [facility] Carbon dioxide, total [Moles/volume] in Serum or Plasma 24 MEQ/L 22 - 30 [facility] Glucose [Mass/volume] in Serum or Plasma 214 MG/DL 70 - 99 H [facility] BUN 24 MG/DL 7 - 21 [facility] Creatinine [Mass/volume] in Serum or Plasma 0.7 MG/DL 0.7 - 1.5 [facility] BUN/CREAT 34 8 - 27 [facility] Protein [Mass/volume] in Serum or Plasma 6.7 G/DL 6.3 - 8.2 [facility] Albumin [Mass/volume] in Serum or Plasma 4.0 G/DL 3.9 - 5.0 [facility] Globulin [Mass/volume] in Serum by calculation 2.7 GM/DL 2.4 - 3.2 [facility] A/G RATIO 1.5 0.8 - 2.0 [facility] Calcium [Mass/volume] in Serum or Plasma 9.5 MG/DL 8.4 - 10.2 [facility] Bilirubin.total [Mass/volume] in Serum or Plasma <0.7 MG/DL 0.2 - 1.3 [facility] Alkaline phosphatase [Enzymatic activity/volume] in Serum or Plasma 155 U/L 38 - 126 H [facility] Aspartate aminotransferase [Enzymatic activity/volume] in Serum or Plasma 23 U/L 5 - 40 [facility] Alanine aminotransferase [Enzymatic activity/volume] in Seru m or Plasma 28 U/L 7 - 56 [facility] Anion gap 3 in Serum or Plasma 11.0 mmol/L 8.0 - 16.0 [facility]GE 75 [facility] >60 mL/min [facility] ital AFR AMER GFR >60 mL/min [facility] sp[facility] Male GFR In terprentation 20-49 [...] >32 mL/min Normal ID Date Data Source [id number] 03/18/2021 02:49:00 PM EDT [facility] Name Value Range Interpretation Code Description Data Alma rce(s) Supporting Document(s) CBC W/AUTOMATED DIFF [facility] COMPLETE BLOOD COUNT Leukocytes [#/volume] in Blood by Automated count 8.4 10^3/uL 4.2 - 1 1.0 [facility] Erythrocytes [#/volume] in Blood by Automated count 5.14 10^6/uL 4. 50 - 6.30 [facility] Hemoglobin [Mass/volume] in Blood 15.3 g/dL 14.0 - 16.0 [facility] Hematocrit [Volume Fraction] of Blood by Automated count 43.5 % 4 1.0 - 51.0 [facility] Erythrocyte mean corpuscular volume [Entitic volume] by Auto mated count 84.6 fL 80.0 - 94.0 [facility] Erythrocyte mean corpuscular hemoglobin [Entitic mass] by Automated count 29.8 pg 27.0 - 34.0 [facility] Erythrocyte mean corpuscular hemoglobin concentration [Mass/volume] by Automated count 35.2 g/dL 31.0 - 36.0 [facility] Erythrocyte distribution width [Ratio] by Automated count 13.0 % 11.5 - 14.8 [facility] Platelets [#/volume] in Blood by Automated count 320 10^3/uL 150 - 45 0 [facility] Platelet mean volume [Entitic volume] in Blood by Automated count 9.0 fL 7.4 - 10.4 [facility] Neutrophils/100 leukocytes in Blood by Automated count 74.3 % 37. 0 - 80.0 [facility] Lymphocytes/100 leukocytes in Blood by Manual count 16.1 % 25.0 - 40.0 L [facility] Monocytes/100 leukocytes in Blood by Automated count 8.6 % 3.0 - 8.0 H [facility] Eosinophils/100 leukocytes in Blood by Automated count 0.4 % 0.0 - 7.0 [facility] Basophils/100 leukocytes in Blood by Automated count 0.2 % 0.0 - 2.0 [facility] %IG 0.4 % 0.0 - 0.0 [facility] % 0.0 - 0.0 [facility] al Neutrophils [#/volume] in Blood by Automated count 6.25 10^3/uL 2.00 - 6.90 [facility] Lymphocytes [#/volume] in Blood by Automated count 1.35 10^3/uL 0.60 - 3.40 [facility] Monocytes [#/volume] in Blood by Automated count 0.72 10^3/uL 0.00 - 0.90 [facility] Eosinophils [#/volume] in Blood by Automated count 0.03 10^3/uL 0.00 - 0.70 [facility] Basophils [#/volume] in Blood by Automated count 0.02 10^3/uL 0.00 - 0.20 [facility] #IG 0.03 10^3/uL 0.00 - 0.10 [facility] #NRBC 0.00 10^3/uL 0.00 - 0.00 [facility] MANUAL DIFF NOT INDICATED [facility] RBC MORPH NOT INDICATED [facility] spital ID Date Data Source [id number] 03/17/2021 12:17:00 PM EDT [facility] Name Value Range Interpretation Code Description Data Alma rce(s) Supporting Document(s) COMPREHENSIVE METABOLIC PANEL [facility] COMPREHENSIVE METABOLIC PANEL Sodium [Moles/volume] in Serum or Plasma 129 mEq/L 134 - 153 L [facility] Potassium [Moles/volume] in Serum or Plasma 4.5 mEq/L 3.6 - 5.0 [facility] Chloride [Moles/volume] in Serum or Plasma 94 mEq/L 98 - 107 L [facility] Carbon dioxide, total [Moles/volume] in Serum or Plasma 23 MEQ/L 22 - 30 [facility] Glucose [Mass/volume] in Serum or Plasma 205 MG/DL 70 - 99 H [facility] BUN 16 MG/DL 7 - 21 [facility] Creatinine [Mass/volume] in Serum or Plasma 0.6 MG/DL 0.7 - 1.5 L [facility] BUN/CREAT 27 8 - 27 [facility] Protein [Mass/volume] in Serum or Plasma 6.8 G/DL 6.3 - 8.2 [facility] Albumin [Mass/volume] in Serum or Plasma 4.1 G/DL 3.9 - 5.0 [facility] Globulin [Mass/volume] in Serum by calculation 2.7 GM/DL 2.4 - 3.2 [facility] A/G RATIO 1.5 0.8 - 2.0 [facility] Calcium [Mass/volume] in Serum or Plasma 9.5 MG/DL 8.4 - 10.2 [facility] Bilirubin.total [Mass/volume] in Serum or Plasma <0.7 MG/DL 0.2 - 1.3 [facility] Alkaline phosphatase [Enzymatic activity/volume] in Serum or Plasma 162 U/L 38 - 126 H [facility] Aspartate aminotransferase [Enzymatic activity/volume] in Serum or Plasma 19 U/L 5 - 40 [facility] Alanine aminotransferase [Enzymatic activity/volume] in Seru m or Plasma 23 U/L 7 - 56 [facility] Anion gap 3 in Serum or Plasma 12.0 mmol/L 8.0 - 16.0 [facility] AGE 75 yrs [facility] NON-AA GFR >60 mL/min [facility] AFR AMER GFR >60 mL/min [facility] Male GFR In terprentation 20-49 [...] >32 mL/min Normal ID Date Data Source [id number] 03/17/2021 11:48:00 AM EDT [facility] Name Value Range Interpretation Code Description Data Alma rce(s) Supporting Document(s) CBC W/AUTOMATED DIFF [facility] COMPLETE BLOOD COUNT Leukocytes [#/volume] in Blood by Automated count 5.4 10^3/uL 4.2 - 1 1.0 [facility] Erythrocytes [#/volume] in Blood by Automated count 5.32 10^6/uL 4. 50 - 6.30 [facility] Hemoglobin [Mass/volume] in Blood 15.6 g/dL 14.0 - 16.0 [facility] Hematocrit [Volume Fraction] of Blood by Automated count 45.0 % 4 1.0 - 51.0 [facility] Erythrocyte mean corpuscular volume [Entitic volume] by Auto mated count 84.6 fL 80.0 - 94.0 [facility] Erythrocyte mean corpuscular hemoglobin [Entitic mass] by Automated count 29.3 pg 27.0 - 34.0 [facility] Erythrocyte mean corpuscular hemoglobin concentration [Mass/volume] by Automated count 34.7 g/dL 31.0 - 36.0 [facility] Erythrocyte distribution width [Ratio] by Automated count 13.1 % 11.5 - 14.8 [facility] Platelets [#/volume] in Blood by Automated count 341 10^3/uL 150 - 45 0 [facility] Platelet mean volume [Entitic volume] in Blood by Automated count 8.7 fL 7.4 - 10.4 [facility] Neutrophils/100 leukocytes in Blood by Automated count 57.0 % 37. 0 - 80.0 [facility] Lymphocytes/100 leukocytes in Blood by Manual count 28.6 % 25.0 - 40.0 [facility] Monocytes/100 leukocytes in Blood by Automated count 9.4 % 3.0 - 8.0 H [facility] Eosinophils/100 leukocytes in Blood by Automated count 3.7 % 0.0 - 7.0 [facility] Basophils/100 leukocytes in Blood by Automated count 0.9 % 0.0 - 2.0 [facility] %IG 0.4 % 0.0 - 0.0 H [facility] %NRBC 0.0 % 0.0 - 0.0 [facility] al Neutrophils [#/volume] in Blood by Automated count 3.09 10^3/uL 2.00 - 6.90 [facility] Lymphocytes [#/volume] in Blood by Automated count 1.55 10^3/uL 0.60 - 3.40 [facility] Monocytes [#/volume] in Blood by Automated count 0.51 10^3/uL 0.00 - 0.90 [facility] Eosinophils [#/volume] in Blood by Automated count 0.20 10^3/uL 0.00 - 0.70 [facility] Basophils [#/volume] in Blood by Automated count 0.05 10^3/uL 0.00 - 0.20 [facility] #IG 0.02 10^3/uL 0.00 - 0.10 [facility] #NRBC 0.00 10^3/uL 0.00 - 0.00 [facility] MANUAL DIFF NOT INDICATED [facility] RBC MORPH NOT INDICATED [facility] sp[facility] ID Date Data Source [id number] 03/16/2021 10:10:00 AM EDT [facility] Name Value Range Interpretation Code Description Data Alma rce(s) Supporting Document(s) COMPREHENSIVE METABOLIC PANEL [facility] COMPREHENSIVE METABOLIC PANEL Sodium [Moles/volume] in Serum or Plasma 130 mEq/L 134 - 153 L [facility] Potassium [Moles/volume] in Serum or Plasma 4.3 mEq/L 3.6 - 5.0 [facility] Chloride [Moles/volume] in Serum or Plasma 96 mEq/L 98 - 107 L [facility] Carbon dioxide, total [Moles/volume] in Serum or Plasma 23 MEQ/L 22 - 30 [facility] Glucose [Mass/volume] in Serum or Plasma 194 MG/DL 70 - 99 H [facility] BUN 13 MG/DL 7 - 21 [facility] Creatinine [Mass/volume] in Serum or Plasma 0.5 MG/DL 0.7 - 1.5 L [facility] BUN/CREAT 26 8 - 27 [facility] Protein [Mass/volume] in Serum or Plasma 6.0 G/DL 6.3 - 8.2 L [facility] Albumin [Mass/volume] in Serum or Plasma 3.7 G/DL 3.9 - 5.0 L [facility] Globulin [Mass/volume] in Serum by calculation 2.3 GM/DL 2.4 - 3.2 L [facility] A/G RATIO 1.6 0.8 - 2.0 [facility] Calcium [Mass/volume] in Serum or Plasma 8.8 MG/DL 8.4 - 10.2 [facility] Bilirubin.total [Mass/volume] in Serum or Plasma <0.7 MG/DL 0.2 - 1.3 [facility] Alkaline phosphatase [Enzymatic activity/volume] in Serum or Plasma 155 U/L 38 - 126 H [facility] Aspartate aminotransferase [Enzymatic activity/volume] in Serum or Plasma 24 U/L 5 - 40 [facility] Alanine aminotransferase [Enzymatic activity/volume] in Seru m or Plasma 22 U/L 7 - 56 [facility] Anion gap 3 in Serum or Plasma 11.0 mmol/L 8.0 - 16.0 [facility] AGE 75 yrs [facility] NON-AA GFR >60 mL/min [facility] AFR AMER GFR >60 mL/min [facility] Male GFR In terprentation 20-49 [...] >32 mL/min Normal ID Date Data Source [id number] 03/16/2021 07:43:00 AM EDT [facility] Name Value Range Interpretation Code Description Data Alma rce(s) Supporting Document(s) C reactive protein [Mass/volume] in Serum or Plasma by High sensitivity method 44.15 MG/L 1.00 - 3.00 H [facility] CDC/[facility] HS-CRP CUT-OFF: RELATIVE RISK: <1.0 mg/L Low 1.0 - 3.0 mg/L Average >3.0 mg/L High Optimally, the average of HS-CRP results repeated two weeks apart should be used for risk assessment. ID Date Data Source [id number] 03/16/2021 07:26:00 AM EDT [facility] Value Range Interpretation Code Description Data Alma rce(s) Supporting Document(s) BNP 330 PG/ML 0 - 125 H [facility] ID Date Data Source [id number] 03/16/2021 07:26:00 AM EDT [facility] Value Range Interpretation Code Description Data Alma rce(s) Supporting Document(s) Cobalamin (Vitamin B12) [Mass/volume] in Serum or Plasma 333 PG/ML 232 - 1245 [facility] ID Date Data Source [id number] 03/16/2021 07:25:00 AM EDT [facility] Value Range Interpretation Code Description Data Alma rce(s) Supporting Document(s) Iron [Mass/volume] in Serum or Plasma 61 UG/DL 42 - 135 [facility] ID Date Data Source [id number] 03/16/2021 07:25:00 AM EDT [facility] Name Value Range Interpretation Code Description Data Alma rce(s) Supporting Document(s) Magnesium [Mass/volume] in Serum or Plasma 1.7 MG/DL 1.7 - 2.2 [facility] ID Date Data Source [id number] 03/16/2021 06:40:00 AM EDT [facility] Name Value Range Interpretation Code Description Data Alma rce(s) Supporting Document(s) CBC W/AUTOMATED DIFF [facility] COMPLETE BLOOD COUNT Leukocytes [#/volume] in Blood by Automated count 5.6 10^3/uL 4.2 - 1 1.0 [facility] Erythrocytes [#/volume] in Blood by Automated count 4.72 10^6/uL 4. 50 - 6.30 [facility] Hemoglobin [Mass/volume] in Blood 13.9 g/dL 14.0 - 16.0 L [facility] Hematocrit [Volume Fraction] of Blood by Automated count 39.9 % 4 1.0 - 51.0 L [facility] Erythrocyte mean corpuscular volume [Entitic volume] by Auto mated count 84.5 fL 80.0 - 94.0 [facility] Erythrocyte mean corpuscular hemoglobin [Entitic mass] by Automated count 29.4 pg 27.0 - 34.0 [facility] Erythrocyte mean corpuscular hemoglobin concentration [Mass/volume] by Automated count 34.8 g/dL 31.0 - 36.0 [facility] Erythrocyte distribution width [Ratio] by Automated count 12.7 % 11.5 - 14.8 [facility] Platelets [#/volume] in Blood by Automated count 288 10^3/uL 150 - 45 0 [facility] Platelet mean volume [Entitic volume] in Blood by Automated count 9.4 fL 7.4 - 10.4 [facility] Neutrophils/100 leukocytes in Blood by Automated count 56.7 % 37. 0 - 80.0 [facility] Lymphocytes/100 leukocytes in Blood by Manual count 28.9 % 25.0 - 40.0 [facility] Monocytes/100 leukocytes in Blood by Automated count 9.9 % 3.0 - 8.0 H [facility] Eosinophils/100 leukocytes in Blood by Automated count 3.6 % 0.0 - 7.0 [facility] Basophils/100 leukocytes in Blood by Automated count 0.7 % 0.0 - 2.0 [facility] %IG 0.2 % 0.0 - 0.0 H [facility] %NRBC 0.0 % 0.0 - 0.0 [facility] Neutrophils [#/volume] in Blood by Automated count 3.16 10^3/uL 2.00 - 6.90 [facility] Lymphocytes [#/volume] in Blood by Automated count 1.61 10^3/uL 0.60 - 3.40 [facility] Monocytes [#/volume] in Blood by Automated count 0.55 10^3/uL 0.00 - 0.90 [facility] Eosinophils [#/volume] in Blood by Automated count 0.20 10^3/uL 0.00 - 0.70 [facility] Basophils [#/volume] in Blood by Automated count 0.04 10^3/uL 0.00 - 0.20 [facility] #IG 0.01 10^3/uL 0.00 - 0.10 [facility] #NRBC 0.00 10^3/uL 0.00 - 0.00 [facility] MANUAL DIFF NOT INDICATED [facility] RBC MORPH NOT INDICATED [facility] spital ID Date Data Source [id number] 03/16/2021 06:40:00 AM EDT [facility] Name Value Range Interpretation Code Description Data Alma rce(s) Supporting Document(s) Fibrin D-dimer FEU [Mass/volume] in Platelet poor plasma 1.28 ug /mL 0.27 - 0.50 H [facility] ID Date Data Source [id number] 03/15/2021 11:22:00 PM EDT [facility] [address] [place] [address] RESPIRATORY CARE REPORT ==== ---------NAME------- NUMBER SEX AGE ADMIT DISC. XRAY# F/C KHARI Forrester [id number] M 75 03/15/21 [id number] M4 I/P DATE OF : 1945 M/R# [id number] PH#: [phone] CCU1 LOCATION: EMERGENCY DEPT EKG [id number] COMPL ETE:03/15/21 10:40 [facility] [address] PHYSICIAN: J LUIS MCPHERSON Name Value Range Interpretation Code Description Data Alma rce(s) Supporting Document(s) ID Date Data Source [id number] 03/15/2021 11:57:00 [place] [address] PHONE: [phone] FAX: [phone] Name .................. : HAYLEE Forrester Acct Number.................. : [id number] ROOM. ................. : [address] Number ................... : [id number] Stay type ............. : O/P Discharge Date......... ... : Admit Date ......... : 03/13/21 Admit Phys .................... : MEGAN MAT Date of ....... : 1945 Family Phys ................... : J LUIS MCPHERSON Phone .................. : [phone] Age ................................ : 75 Film# .................. .:[id number] Sex ................................. : M Unsigned transcriptions are preliminary reports and do not represent a medical or legal document [place] [id number] COMPLETE:03/13/21 22:31 [facility] [address] Reason(s): Trauma/Injury LEFT HIP X-RAY WITH AP [...] 03/14/21 08:33, Dictation Date: Copy for: 002 [facility] Copy for: 710 [facility] REC Page 1 of 1 Name Value Range Interpretation Code Description Data Alma rce(s) Supporting Document(s) ID Date Data Source [id number] 03/15/2021 11:57:00 [place] [address] PHONE: [phone] FAX: [phone] Name .................. : HAYLEE Forrester Acct Number.................. : [id number] ROOM. ................. : CCU1 Number ................... : [id number] Stay type ............. : O/P Discharge Date......... ... : Admit Date ......... : 03/13/21 Admit Phys .................... : MEGAN MAT Date of ....... : 1945 Family Phys ................... : J LUIS VIDA Phone .................. : [phone] Age ................................ : 75 Film# .................. .:[id number] Sex ................................. : M Unsigned transcriptions are preliminary reports and do not represent a medical or legal document KNEE COMPLETE-4 OR MORE S L [id number] COMPLETE:03/13/21 22:31 [facility] [address] Reason(s): Pain LEFT KNEE X-RAY: INDICATION: Pain. [...] 03/14/21 08:29, Dictation Date: Copy for: 002 [facility] Copy for: [address] [facility] REC Page 1 of 1 Name Value Range Interpretation Code Description Data Alma rce(s) Supporting Document(s) ID Date Data Source [id number] 03/15/2021 11:56:00 AM EDT [facility] [address] [place] [address] PHONE: [phone] FAX: [phone] Name .................. : HAYLEE Forrester Acct Number.................. : [id number] ROOM. ................. : CCU1 MR Number ................... : [id number] Stay type ............. : O/P Discharge Date......... ... : Admit Date ......... : 03/13/21 Admit Phys .................... : MEGAN LINDSAY Date of ....... : 1945 Family Phys ................... : J LUIS VIDA Phone .................. : [phone] Age ................................ : 75 Film# .................. .:[id number] Sex ................................. : M Unsigned transcriptions are preliminary reports and do not represent a medical or legal document CHEST PORTABLE [id number] COMPLETE:03/13/21 22:30 [facility] [address] Reason(s): Congestion PORTABLE CHEST X-RAY: INDICATION: Congestion. [...] 03/14/21 08:27, Dictation Date: Copy for: 002 [facility] Copy for: 710 [facility] REC Page 1 of 1 Name Value Range Interpretation Code Description Data Alma rce(s) Supporting Document(s) ID Date Data Source [id number] 03/14/2021 08:36:00 [place] [address] PROGRESS NOTENAME: HAYLEE Forrester ROOM#: [id number] OF : 1945 MR#: [id number] DATE: 03/13/21 OF SERVICE: 03/14/21SUBJECTIVE: This patient had an episode of syncope. The patient claims that yesterday he had a fall. Hewas standing and quickly turned around and then fell down. He hit his left knee and had possible syncope.Patient has known history of permanent pacemaker inserted a couple of weeks ago at [facility]. Patient claims he was walking [...] of his syncope. Also, his magnesium [address] [place] [address] PROGRESS NOTENAME: HAYLEE Forrester ROOM#: [id number] OF : 1945 MR#: [id number] DATE: 03/13/21 is 1.6. We will give one run of magnesium sulfate IV. Orthostatic blood pressure readings will bedone.DD: Paul Rushing MD, 03/14/21 09:23DT: DULCE 03/14/21 20:28DS: Paul Rushing MD, PC 03/15/21 08:54 2 Name Value Range Interpretation Code Description Data Alma rce(s) Supporting Document(s) ID Date Data Source [id number] 03/14/2021 07:45:00 [place] [address] RESPIRATORY CARE REPORT ==== ---------NAME------- NUMBER SEX AGE ADMIT DISC. XRAY# F/C [id number] Forrester [id number] M 75 03/13/21 [id number] MB4 O/P DATE OF : 1945 M/R# [id number] #: [id number] RM CCU1 LOCATION: EMERGENCY DEPT EKG [id number] COMPL ETE:03/14/21 02:28 [place] [address] PHYSICIAN: J LUIS Nino Name Value Range Interpretation Code Description Data Alma rce(s) Supporting Document(s) ID Date Data Source [id number] 03/15/2021 02:33:00 PM EDT [facility] Name Value Range Interpretation Code Description Data Alma rce(s) Supporting Document(s) Cortisol [Mass/volume] in Serum or Plasma 9.8 ug/dL [facility] C ortisol AM 6.2 - 19.4 Cortisol PM 2.3 - 11.9 ID Date Data Source [id number] 03/15/2021 12:01:00 PM EDT [facility] Name Value Range Interpretation Code Description Data Alma rce(s) Supporting Document(s) Prostate specific Ag [Mass/volume] in Serum or Plasma 0.01 ng/mL 0.00 - 4.00 [facility] \\BLDo\\PSA INTERPRETA TION\\BLDx\\ The PSA assay should [...] be used interchangeably. ID Date Data Source [id number] 03/14/2021 01:18:00 PM EDT [facility] Name Value Range Interpretation Code Description Data Alma rce(s) Supporting Document(s) TROPONIN T <0.01 NG/ML 0.00 - 0.10 [facility] TROPONIN T0.1 ng/ml Recommended as the c linical threshold value Jhonatan Del Valle. ID Date Data Source [id number] 03/14/2021 01:17:00 PM EDT [facility] Name Value Range Interpretation Code Description Data Alma rce(s) Supporting Document(s) COMPREHENSIVE METABOLIC PANEL [facility] COMPREHENSIVE METABOLIC PANEL Sodium [Moles/volume] in Serum or Plasma 131 mEq/L 134 - 153 L [facility] Potassium [Moles/volume] in Serum or Plasma 3.7 mEq/L 3.6 - 5.0 [facility] Chloride [Moles/volume] in Serum or Plasma 95 mEq/L 98 - 107 L [facility] Carbon dioxide, total [Moles/volume] in Serum or Plasma 26 MEQ/L 22 - 30 [facility] Glucose [Mass/volume] in Serum or Plasma 192 MG/DL 70 - 99 H [facility] BUN 23 MG/DL 7 - 21 [facility] Creatinine [Mass/volume] in Serum or Plasma 0.7 MG/DL 0.7 - 1.5 [facility] BUN/CREAT 33 8 - 27 H [facility] al Protein [Mass/volume] in Serum or Plasma 6.3 G/DL 6.3 - 8.2 [facility] Albumin [Mass/volume] in Serum or Plasma 4.0 G/DL 3.9 - 5.0 [facility] Globulin [Mass/volume] in Serum by calculation 2.3 GM/DL 2.4 - 3.2 L [facility] A/G RATIO 1.7 0.8 - 2.0 [facility] Calcium [Mass/volume] in Serum or Plasma 9.1 MG/DL 8.4 - 10.2 [facility] Bilirubin.total [Mass/volume] in Serum or Plasma 1.0 MG/DL 0.2 - 1.3 [facility] Alkaline phosphatase [Enzymatic activity/volume] in Serum or Plasma 124 U/L 38 - 126 [facility] Aspartate aminotransferase [Enzymatic activity/volume] in Serum or Plasma 22 U/L 5 - 40 [facility] Alanine aminotransferase [Enzymatic activity/volume] in Seru m or Plasma 18 U/L 7 - 56 [facility] Anion gap 3 in Serum or Plasma 10.0 mmol/L 8.0 - 16.0 [facility] AGE 75 yrs [facility] NON-AA GFR >60 mL/min [facility] AFR AMER GFR >60 mL/min [facility] Male GFR In terprentation 20-49 [...] >32 mL/min Normal ID Date Data Source [id number] 03/14/2021 12:47:00 PM EDT [facility] Name Value Range Interpretation Code Description Data Alma rce(s) Supporting Document(s) CBC W/AUTOMATED DIFF [facility] COMPLETE BLOOD COUNT Leukocytes [#/volume] in Blood by Automated count 6.8 10^3/uL 4.2 - 1 1.0 [facility] Erythrocytes [#/volume] in Blood by Automated count 4.90 10^6/uL 4. 50 - 6.30 [facility] Hemoglobin [Mass/volume] in Blood 14.5 g/dL 14.0 - 16.0 [facility] Hematocrit [Volume Fraction] of Blood by Automated count 42.4 % 4 1.0 - 51.0 [facility] Erythrocyte mean corpuscular volume [Entitic volume] by Auto mated count 86.5 fL 80.0 - 94.0 [facility] Erythrocyte mean corpuscular hemoglobin [Entitic mass] by Automated count 29.6 pg 27.0 - 34.0 [facility] Erythrocyte mean corpuscular hemoglobin concentration [Mass/volume] by Automated count 34.2 g/dL 31.0 - 36.0 [facility] Erythrocyte distribution width [Ratio] by Automated count 13.2 % 11.5 - 14.8 [facility] Platelets [#/volume] in Blood by Automated count 259 10^3/uL 150 - 45 0 [facility] Platelet mean volume [Entitic volume] in Blood by Automated count 9.0 fL 7.4 - 10.4 [facility] Neutrophils/100 leukocytes in Blood by Automated count 61.1 % 37. 0 - 80.0 [facility] Lymphocytes/100 leukocytes in Blood by Manual count 25.0 % 25.0 - 40.0 [facility] Monocytes/100 leukocytes in Blood by Automated count 10.2 % 3.0 - 8.0 H [facility] Eosinophils/100 leukocytes in Blood by Automated count 2.4 % 0.0 - 7.0 [facility] Basophils/100 leukocytes in Blood by Automated count 0.9 % 0.0 - 2.0 [facility] %IG 0.4 % 0.0 - 0.0 H [facility] %NRBC 0.0 % 0.0 - 0.0 [facility] al Neutrophils [#/volume] in Blood by Automated count 4.12 10^3/uL 2.00 - 6.90 [facility] Lymphocytes [#/volume] in Blood by Automated count 1.69 10^3/uL 0.60 - 3.40 [facility] Monocytes [#/volume] in Blood by Automated count 0.69 10^3/uL 0.00 - 0.90 [facility] Eosinophils [#/volume] in Blood by Automated count 0.16 10^3/uL 0.00 - 0.70 [facility] Basophils [#/volume] in Blood by Automated count 0.06 10^3/uL 0.00 - 0.20 [facility] #IG 0.03 10^3/uL 0.00 - 0.10 [facility] #NRBC 0.00 10^3/uL 0.00 - 0.00 [facility] MANUAL DIFF NOT INDICATED [facility] RBC MORPH NOT INDICATED [facility] spital ID Date Data Source [id number] 03/14/2021 09:54:00 AM EDT [facility] Name Value Range Interpretation Code Description Data Alma rce(s) Supporting Document(s) Lactate [Moles/volume] in Serum or Plasma 2.7 MMOL/L 0.2 - 2.2 H [facility] ID Date Data Source [id number] 03/16/2021 02:12:00 PM EDT [facility] Value Range Interpretation Code Description Data Alma rce(s) Supporting Document(s) CULTURE URINE [facility] spital _CULTURE URINE_$$[id number]$$174674$$659769$$308516$$514355$$718331$$805407$$286758$$175664$$ 302826$$180039$$631124$$221782$$956807$$764409$$469584$$595572$$544020$$788060$$ 503860$$776624$$319513$$424281$$356242$$482411$$379476$$696206 -- Continued on next page --Patient: HAYLEE Forrester Order: [id number] Page 2Culture: CULTURE URINE Status: Final ====$$[id number]$$[id number] DATE/TIME: 03/16/2021 08:08Culture: CULTURE URINE Status: FinalUrine Culture,Comprehensive: [id number] urogenital flora50,000-100,000 colony forming units per mLP1 Test performed by: [facility] #: [id number] [address] [place] [address] [address] [id number] [facility] [id number] Director : Rory Hickman MD NPI #:[employer] Systems Administrator : 03/16/21.1412.XMT.SENT REF 03/16/21.1412.CM .to [facility] via modem ID Date Data Source [id number] 03/14/2021 07:01:00 AM EDT [facility] Name Value Range Interpretation Code Description Data Alma rce(s) Supporting Document(s) URINALYSIS [facility] Hospi concepción URINALYSIS SOURCE R [facility] COLOR orange NORMAL: Yellow [facility] ospital CLARITY clear NORMAL: Clear [facility] spital Specific gravity of Urine by Test strip 1.020 1.001 - 1.030 [facility] pH 6 5 - 9 [facility] Glucose [Mass/volume] in Urine by Test strip 1000 NORMAL: Negat alden A [facility] Bilirubin.total [Presence] in Urine by Test strip NEG NORMAL: Negative [facility] Ketones [Presence] in Urine by Test strip 5 NORMAL: Negative [facility] Protein [Mass/volume] in Urine by Test strip 30 NORMAL: Negat [facility] Nitrite [Presence] in Urine by Test strip NEG NORMAL: Negative [facility] BLOOD NEG NORMAL: Negative [facility] LEUK EST 25 NORMAL: Negative [facility] Urobilinogen [Mass/volume] in Urine by Test strip 1 less ellen n 1.0 mg/dL [facility] MICROSCOPIC See Below [facility] ital WBC 1 - 3 NORMAL: NONE SEEN [facility] EPITHELIAL FEW NORMAL: NONE SEEN [facility] Bacteria [Presence] in Urine sediment by Light microscopy 2+ MOD NORMAL: NONE SEEN A [facility] Mucus [Presence] in Urine sediment by Light microscopy 2+ NOR MAL: NONE SEEN A [facility] Casts [#/area] in Urine sediment by Microscopy low power field See Be low [facility] Coarse Granular Casts [#/area] in Urine sediment by Mi croscopy low power field 0-1 NORMAL: None Seen A [facility] ID Date Data Source [id number] 03/14/2021 07:22:00 AM EDT [facility] Name Value Range Interpretation Code Description Data Alma rce(s) Supporting Document(s) TROPONIN T <0.01 NG/ML 0.00 - 0.10 [facility] ospital TROPONIN T0.1 ng/ml Recommended as the c linical threshold value forTroponin T. ID Date Data Source [id number] 03/14/2021 07:21:00 AM EDT [facility] Name Value Range Interpretation Code Description Data Alma rce(s) Supporting Document(s) Creatine kinase [Enzymatic activity/volume] in Serum or Plasma 2 44 U/L 30 - 170 H [facility] ID Date Data Source [id number] 03/14/2021 07:02:00 AM EDT [facility] Name Value Range Interpretation Code Description Data Alma rce(s) Supporting Document(s) BNP 267 PG/ML 0 - 125 H [facility] ID Date Data Source [id number] 03/14/2021 06:51:00 AM EDT [facility] Value Range Interpretation Code Description Data Alma rce(s) Supporting Document(s) Thyroxine (T4) free index in Serum or Plasma by calculation 1.15 NG/DL 0.93 - 1.70 [facility] ID Date Data Source [id number] 03/14/2021 06:51:00 AM EDT [facility] Value Range Interpretation Code Description Data Alma rce(s) Supporting Document(s) Thyrotropin [Units/volume] in Serum or Plasma by Detec tion limit <= 0.05 mIU/L 2.62 uIU/mL 0.47 - 5.01 [facility] ID Date Data Source [id number] 03/14/2021 06:46:00 AM EDT [facility] Value Range Interpretation Code Description Data Alma rce(s) Supporting Document(s) Magnesium [Mass/volume] in Serum or Plasma 1.6 MG/DL 1.7 - 2.2 L [facility] ID Date Data Source [id number] 03/14/2021 06:46:00 AM EDT [facility] Value Range Interpretation Code Description Data Alma rce(s) Supporting Document(s) COMPREHENSIVE METABOLIC PANEL [facility] COMPREHENSIVE METABOLIC PANEL Sodium [Moles/volume] in Serum or Plasma 131 mEq/L 134 - 153 L [facility] Potassium [Moles/volume] in Serum or Plasma 3.5 mEq/L 3.6 - 5.0 L [facility] Chloride [Moles/volume] in Serum or Plasma 97 mEq/L 98 - 107 L [facility] Carbon dioxide, total [Moles/volume] in Serum or Plasma 23 MEQ/L 22 - 30 [facility] Glucose [Mass/volume] in Serum or Plasma 213 MG/DL 70 - 99 H [facility] BUN 23 MG/DL 7 - [address] [facility] Creatinine [Mass/volume] in Serum or Plasma 0.7 MG/DL 0.7 - 1.5 [facility] BUN/CREAT 33 8 - [address] [facility] Protein [Mass/volume] in Serum or Plasma 5.7 G/DL 6.3 - 8.2 L [facility] Albumin [Mass/volume] in Serum or Plasma 3.6 G/DL 3.9 - 5.0 L [facility] Globulin [Mass/volume] in Serum by calculation 2.1 GM/DL 2.4 - 3.2 L [facility] A/G RATIO 1.7 0.8 - 2.0 [facility] Calcium [Mass/volume] in Serum or Plasma 8.7 MG/DL 8.4 - 10.2 [facility] Bilirubin.total [Mass/volume] in Serum or Plasma 1.1 MG/DL 0.2 - 1.3 [facility] Alkaline phosphatase [Enzymatic activity/volume] in Serum or Plasma 112 U/L 38 - 126 [facility] Aspartate aminotransferase [Enzymatic activity/volume] in Serum or Plasma 17 U/L 5 - 40 [facility] Alanine aminotransferase [Enzymatic activity/volume] in Seru m or Plasma 14 U/L 7 - 56 [facility] Anion gap 3 in Serum or Plasma 11.0 mmol/L 8.0 - 16.0 [facility] AGE 75 yrs [facility] al NON-AA GFR >60 mL/min [facility] ital AFR AMER GFR >60 mL/min [facility] Ho spital Male GFR In terprentation 20-49 [...] >32 mL/min Normal ID Date Data Source [id number] 03/14/2021 06:41:00 AM EDT [facility] Name Value Range Interpretation Code Description Data Alma rce(s) Supporting Document(s) Phosphate [Mass/volume] in Serum or Plasma 3.7 MG/DL 2.5 - 4.5 [facility] ID Date Data Source [id number] 03/14/2021 06:29:00 AM EDT [facility] Name Value Range Interpretation Code Description Data Alma rce(s) Supporting Document(s) CBC W/AUTOMATED DIFF [facility] COMPLETE BLOOD COUNT Leukocytes [#/volume] in Blood by Automated count 6.8 10^3/uL 4.2 - 1 1.0 [facility] Erythrocytes [#/volume] in Blood by Automated count 4.61 10^6/uL 4. 50 - 6.30 [facility] Hemoglobin [Mass/volume] in Blood 13.6 g/dL 14.0 - 16.0 L [facility] Hematocrit [Volume Fraction] of Blood by Automated count 39.0 % 4 1.0 - 51.0 L [facility] Erythrocyte mean corpuscular volume [Entitic volume] by Auto mated count 84.6 fL 80.0 - 94.0 [facility] Erythrocyte mean corpuscular hemoglobin [Entitic mass] by Automated count 29.5 pg 27.0 - 34.0 [facility] Erythrocyte mean corpuscular hemoglobin concentration [Mass/volume] by Automated count 34.9 g/dL 31.0 - 36.0 [facility] Erythrocyte distribution width [Ratio] by Automated count 13.1 % 11.5 - 14.8 [facility] Platelets [#/volume] in Blood by Automated count 240 10^3/uL 150 - 45 0 [facility] Platelet mean volume [Entitic volume] in Blood by Automated count 9.6 fL 7.4 - 10.4 [facility] Neutrophils/100 leukocytes in Blood by Automated count 60.9 % 37. 0 - 80.0 [facility] Lymphocytes/100 leukocytes in Blood by Manual count 24.6 % 25.0 - 40.0 L [facility] Monocytes/100 leukocytes in Blood by Automated count 11.1 % 3.0 - 8.0 H [facility] Eosinophils/100 leukocytes in Blood by Automated count 2.2 % 0.0 - 7.0 [facility] Basophils/100 leukocytes in Blood by Automated count 0.9 % 0.0 - 2.0 [facility] %IG 0.3 % 0.0 - 0.0 H [facility] %NRBC 0.0 % 0.0 - 0.0 [facility] al Neutrophils [#/volume] in Blood by Automated count 4.13 10^3/uL 2.00 - 6.90 [facility] Lymphocytes [#/volume] in Blood by Automated count 1.67 10^3/uL 0.60 - 3.40 [facility] Monocytes [#/volume] in Blood by Automated count 0.75 10^3/uL 0.00 - 0.90 [facility] Eosinophils [#/volume] in Blood by Automated count 0.15 10^3/uL 0.00 - 0.70 [facility] Basophils [#/volume] in Blood by Automated count 0.06 10^3/uL 0.00 - 0.20 [facility] #IG 0.02 10^3/uL 0.00 - 0.10 [facility] ospital #NRBC 0.00 10^3/uL 0.00 - 0.00 [facility] ospital MANUAL DIFF NOT INDICATED [facility] RBC MORPH NOT INDICATED [facility] spital ID Date Data Source [id number] 03/13/2021 08:07:00 PM EDT [facility] 1 OrderSheet [facility] Emergency Department [address] [place] [address] Phone #: ext- [phone] 03/13/2021 20:07 Patient: [...] Setting)DIAGNOSTIC STUDY ORDERSOrder Description Priority Entered Acknowledged [facility] STAT 20:21 03/13/2021 Ack'd: 20:29 20:48 David,View Chris Barr ; Mary Alice Echeverria R.N.(Oxygen?(No)) R.N. Reason for Study: CongestionHip Left with Pelvis STAT 20:21 03/13/2021 Ack'd: 20:29 20:48 David,Trauma Chris Barr ; Mary Alice Echeverria R.N. 2 OrderSheet [facility] Emergency Department [address] [place] [address] Phone #: ext- [phone] 03/13/2021 20:07 Patient: MAGDY LEACH Sex: M : 1945 Age: 75y R.N. Reason for Study: Trauma/InjuryCT Head W/O Cont STAT 20:21 03/13/2021 Ack'd: 20:29 20:48 Sorbero,(Oxygen?(No)) Chris Barr ; Mary Alice EcheverriaNPark R.N. Reason for Study: Head Injury, WeaknessCT Spine Cervical STAT 20:21 03/13/2021 Ack'd: 20:29 20:48 Sorbero,W/O Cont Chris Barr ; Mary Alice Echeverria R.N.(Oxygen?(No)) R.N. Reason for Study: Pain, Trauma/InjuryKnee Complete Left STAT 20:22 03/13/2021 Ack'd: 20:29 20:48 Sorbero,(Oxygen?(No)) hCris Barr ; Mary Alice EcheverriaNPark R.N. Reason [...] rce(s) Supporting Document(s) ID Date Data Source [id number] 03/13/2021 08:07:00 PM EDT [facility] 1 Medication Reconciliation Report [facility] Emergency Department [address] [place] [address] Phone #: ext- [phone] 03/13/2021 20:07 Patient: [...] rce(s) Supporting Document(s) ID Date Data Source [id number] 03/13/2021 08:07:00 PM EDT [facility] 1 Medication Administration Record [facility] Emergency Department [address] [place] [address] Phone #: ext - [phone] 03/13/2021 20:07 Patient: MAGDY LEACH Sex: M : 1945 Age: 75yWeight: 113.8 kgHeight/Length: 73 inBMI: 33.1ALLERGIES: Morphine and Related Date/Time Medication Administered Medication OrderedGiven TORADOL [IM] (KETOROLAC Toradol IM 30 mg (NOW x1)22:09 03/13/2021 TROMETHAMINE)Sorbero, Josafat, R.N. Dose: 30 mg IM Name Value Range Interpretation Code Description Data Alma rce(s) Supporting Document(s) ID Date Data Source [id number] 03/13/2021 08:07:00 PM EDT [facility] 1 General Instructions [facility] Emergency Department [address] [place] [address] Phone #: ext- [phone] 03/13/2021 20:07 Patient: MAGDY LEACH Sex: M : 1945 Age: 75yAcute generalized weakness.Single contusion to the left hip.(Electronically signed by Chris Barr 03/14/2021 03:46) Name Value Range Interpretation Code Description Data [facility] Document(s) ID Date Data Source [id number] 03/13/2021 08:07:00 PM EDT [facility] 1 Clinical Report - Nurses [facility] Emergency Department [address] [place] [address] Phone #: ext- [phone] 03/13/2021 20:07 Patient: MAGDY LEACH Sex: M [...] Colón R.N. 2 Clinical Report - Nurses [facility] Emergency Department [address] [place] [address] Phone #: ext- [phone] 03/13/2021 20:07 ----- [id number] Sex: M : 1945 Age: 75y Back [...] assessment performed: mobility impairment present. pt poor historian/VIEJAS/. SKIN INTEGRITY ASSESSMENT: Skin integrity risk assessment [...] ; labeled 3 Clinical Report - Nurses [facility] Emergency Department [address] [place] [address] Phone #: ext- [phone] 03/13/2021 20:07 Patient: [...] Hernandez R.N. 4 Clinical Report - Nurses [facility] Emergency Department [address] [place] [address] Phone #: ext- [phone] 03/13/2021 20:07 Patient: MAGDY LEACH Sex: M : 1945 Age: 75y Name Value Range Interpretation Code Description Data Alma rce(s) Supporting Document(s) ID Date Data Source [id number] 03/13/2021 08:07:00 PM EDT [facility] 1 Clinical Report - Physicians/Mid Levels [facility] Emergency Department [address] [place] [address] Phone #: ext- [phone] 03/13/2021 20:07 [id number] Sex: M : 1945 Age: 75y Time [...] daily. 2 Clinical Report - Physicians/Mid Levels [facility] Emergency Department [address] [place] [address] Phone #: ext- [phone] 03/13/2021 20:07 Patient: MAGDY LEACH [facility]#: [id number] Sex: M : 1945 Age: 75y Glimepiride [...] results 3 Clinical Report - Physicians/Mid Levels [facility] Emergency Department [address] [place] [address] Phone #: ext- [phone] 03/13/2021 20:07 Patient: [...] Male GFR Interprentation 20-49 yrs >60 mL/min Fqzfwr77-77 yrs >56 mL/min Normal 60-69 yrs >49 mL/min Normal 70-79yrs>42 mL/min Normal 80 and above >35 mL/min Normal Female GFRInterpretation 20-39 yrs >60 mL/min Normal 40-49 yrs >58 mL/min 4 Clinical Report - Physicians/Mid Levels [facility] Emergency Department [address] [place] [address] Phone #: ext- [phone] 03/13/2021 20:07 Patient: MAGDY LEACH Sex: M : 1945 Age: 75yNormal 50-59 yrs >51 mL/min Normal 60-69 yrs >45 mL/min Znisyl80-95 yrs >39 mL/min Normal 80 and above [...] Room: ED Exam [place] [address] ---------NAME--------- NUMBER SEX AGE ADMIT DISC. XRAY# F/C TYPE HAYLEE Forrester [id number] M 75 03/13/21 [id number] E/R DATE OF : 1945 M/R# [id number] PH#: [phone] TR-03 LOCATION: EMERGENCY DEPT TRANSCRIBED: 03/13/21 21:[address] HEAD W/O CONTRAST [id number] COMPLETED:03/13/21 21:58 carmella [id number] Reason(s): Head Injury Weakness PHYSICIAN: VICTOR MANUEL [...] provided. 5 Clinical Report - Physicians/Mid Levels [facility] Emergency Department [address] [place] [address] Phone #: ext- [phone] 03/13/2021 20:07 Patient: [...] Room: ED Exam CT CERV SPINE [place] [address] ---------NAME--------- NUMBER SEX AGE ADMIT DISC. XRAY# F/C TYPE HAYLEE Forrester [id number] M 75 03/13/21 [id number] E/R DATE OF : 1945 M/R# [id number] #: [id number] TR-03 LOCATION: EMERGENCY DEPT TRANSCRIBED: 03/13/21 22:[address] CERV SPINE W/O CONTRAS [id number] COMPLETED:03/13/21 22:19 carmella [id number] Reason(s): Pain Trauma/Injury PHYSICIAN: VICTOR MANUEL Nino [...] mGY*cm 6 Clinical Report - Physicians/Mid Levels [facility] Emergency Department [address] [place] [address] Phone #: ext- [phone] 03/13/2021 20:07 Patient: [...] hip. 7 Clinical Report - Physicians/Mid Levels [facility] Emergency Department [address] [place] [address] Phone #: ext- [phone] 03/13/2021 20:07 Patient: MAGDY LEACH Sex: M : 1945 Age: 75y(Electronically signed by Chris Barr 03/14/2021 03:46) Name Value Range Interpretation Code Description Data Alma rce(s) Supporting Document(s) ID Date Data Source [id number] 03/14/2021 12:46:00 AM EDT [facility] Name Value Range Interpretation Code Description Data Alma rce(s) Supporting Document(s) Lactate [Moles/volume] in Serum or Plasma 3.1 MMOL/L 0.2 - 2.2 H [facility] ID Date Data Source [id number] 03/14/2021 07:05:00 AM EDT [facility] NOTIFIED LABDoes the specimen need to be recollected?: YREASON REJECTED:: QNS - NO COLOR IN BOTTLETEST(S) ORDERED:: BLOOD CULT [id number] Name Value Range Interpretation Code Description Data Alma rce(s) Supporting Document(s) Laboratory BLOOD CULT [facility] Laboratory studies (set) QNS - NO COLOR IN BOTTLE [facility] One or more of the tests that youordered cannot be performed.Please recollect, reorder and resubmit. ID Date Data Source [id number] 03/19/2021 06:48:00 AM EDT [facility] NOTIFIED LABDoes the specimen need to be recollected?: YREASON REJECTED:: QNS - NO COLOR IN BOTTLETEST(S) ORDERED:: BLOOD CULT 03904 Name Value Range Interpretation Code Description Data Alma rce(s) Supporting Document(s) Bacteria identified in Blood by Culture [facility] NO GROWTH AFTER 5 DAYS ID Date Data Source [id number] 03/20/2021 02:20:00 PM EDT [facility] Name Value Range Interpretation Code Description Data Alma rce(s) Supporting Document(s) CULTURE BLOOD [facility] spital _CULTURE BLOOD_ TEST PERFORM ED AT [address] [address] CLIA# [id number] SEE SCANNED REPORT{ PRELIM ID Date Data Source [id number] 03/13/2021 10:50:00 PM EDT [facility] Name Value Range Interpretation Code Description Data Alma rce(s) Supporting Document(s) COVID19 Case rprt NOT DETECTED [facility] This lab was ordered by [facility] LYLA KEVIN and reported by [facility]. ID Date Data Source [id number] 03/13/2021 11:09:00 PM EDT [facility] NOT DETECTEDNOT DETECTED{ PROC EDURAL CONTROL VALID KIT LOT # _[id number] 03/13/21.2309.LBS. KIT EXP DATE _90-9-08 03/13/21.2308.LBS. NORMAL RANGE IS NOT DETECTEDNEGATIVE RESULTS [...] rce(s) Supporting Document(s) ID Date Data Source [id number] 03/13/2021 10:18:00 PM EDT [facility] [address] [place] [address] ---------NAME--------- NUMBER SEX AGE ADMIT DISC. XRAY# F/C TYPE HAYLEE Forrester [id number] M 75 03/13/21 [id number] [id number] E/R DATE OF : 1945 M/R# [id number] #: [id number] TR-03 LOCATION: EMERGENCY DEPT TRANSCRIBED: 03/13/21 22:[address] CERV SPINE W/O CONTRAS [id number] COMPLETED:03/13/21 22:19 carmella [id number] Reason(s): Pain Trauma/Injury PHYSICIAN: VICTOR MANUEL Nino======== [...] rce(s) Supporting Document(s) ID Date Data Source [id number] 03/13/2021 09:57:00 PM EDT [address] [address] ---------NAME--------- NUMBER SEX AGE ADMIT DISC. XRAY# F/C TYPE HAYLEE Forrester [id number] M 75 03/13/21 [id number] E/R DATE OF : 1945 M/R# [id number] PH#: [phone] TR-03 LOCATION: EMERGENCY DEPT TRANSCRIBED: 03/13/21 21:[address] HEAD W/O CONTRAST [id number] COMPLETED:03/13/21 21:58 carmella [id number] Reason(s): Head Injury Weakness PHYSICIAN: VICTOR MANUEL [...] rce(s) Supporting Document(s) ID Date Data Source [id number] 03/13/2021 11:36:00 PM EDT [facility] Name Value Range Interpretation Code Description Data [facility] Supporting Document(s) Hemoglobin A1c/Hemoglobin.total in Blood 8.8 % 4.4 - 6.1 H [facility] {A1]{HB] ID Date Data Source [id number] 03/13/2021 09:22:00 PM EDT [facility] Name Value Range Interpretation Code Description Data Alma rce(s) Supporting Document(s) TROPONIN T <0.01 NG/ML 0.00 - 0.10 [facility] ospital TROPONIN T0.1 ng/ml Recommended as the c linical threshold value forTroponin T. ID Date Data Source [id number] 03/13/2021 09:11:00 PM EDT [facility] Name Value Range Interpretation Code Description Data [facility](s) Supporting Document(s) COMPREHENSIVE METABOLIC PANEL [facility] COMPREHENSIVE METABOLIC PANEL Sodium [Moles/volume] in Serum or Plasma 132 mEq/L 134 - 153 L [facility] Potassium [Moles/volume] in Serum or Plasma 3.6 mEq/L 3.6 - 5.0 [facility] Chloride [Moles/volume] in Serum or Plasma 95 mEq/L 98 - 107 L [facility] Carbon dioxide, total [Moles/volume] in Serum or Plasma 25 MEQ/L 22 - 30 [facility] Glucose [Mass/volume] in Serum or Plasma 229 MG/DL 70 - 99 H [facility] BUN 19 MG/DL 7 - 21 [facility] Creat[facility] [Mass/volume] in Serum or Plasma 0.8 MG/DL 0.7 - 1.5 [facility] BUN/CREAT 24 8 - 27 [facility] al Protein [Mass/volume] in Serum or Plasma 6.7 G/DL 6.3 - 8.2 [facility] Albumin [Mass/volume] in Serum or Plasma 4.2 G/DL 3.9 - 5.0 [facility] Globulin [Mass/volume] in Serum by calculation 2.5 GM/DL 2.4 - 3.2 [facility] A/G RATIO 1.7 0.8 - 2.0 [facility] Calcium [Mass/volume] in Serum or Plasma 9.3 MG/DL 8.4 - 10.2 [facility] Bilirubin.total [Mass/volume] in Serum or Plasma 1.6 MG/DL 0.2 - 1.3 H [facility] Alkaline phosphatase [Enzymatic activity/volume] in Serum or Plasma 120 U/L 38 - 126 [facility] Aspartate aminotransferase [Enzymatic activity/volume] in Serum or Plasma 17 U/L 5 - 40 [facility] Alanine aminotransferase [Enzymatic activity/volume] in Seru m or Plasma 15 U/L 7 - 56 [facility] Anion gap 3 in Serum or Plasma 12.0 mmol/L 8.0 - 16.0 [facility] AGE 75 yrs [facility] NON-AA GFR >60 mL/min [facility] ital AFR AMER GFR >60 mL/min [facility] spital Male GFR In terprentation 20-49 [...] >32 mL/min Normal ID Date Data Source [id number] 03/13/2021 08:49:00 PM EDT [facility] Name Value Range Interpretation Code Description Data Alma rce(s) Supporting Document(s) CBC W/AUTOMATED DIFF [facility] COMPLETE BLOOD COUNT Leukocytes [#/volume] in Blood by Automated count 9.5 10^3/uL 4.2 - 1 1.0 [facility] Erythrocytes [#/volume] in Blood by Automated count 5.07 10^6/uL 4. 50 - 6.30 [facility] Hemoglobin [Mass/volume] in Blood 15.1 g/dL 14.0 - 16.0 [facility] Hematocrit [Volume Fraction] of Blood by Automated count 42.8 % 4 1.0 - 51.0 [facility] Erythrocyte mean corpuscular volume [Entitic volume] by Auto mated count 84.4 fL 80.0 - 94.0 [facility] Erythrocyte mean corpuscular hemoglobin [Entitic mass] by Automated count 29.8 pg 27.0 - 34.0 [facility] Erythrocyte mean corpuscular hemoglobin concentration [Mass/volume] by Automated count 35.3 g/dL 31.0 - 36.0 [facility] Erythrocyte distribution width [Ratio] by Automated count 13.1 % 11.5 - 14.8 [facility] Platelets [#/volume] in Blood by Automated count 267 10^3/uL 150 - 45 0 [facility] Platelet mean volume [Entitic volume] in Blood by Automated count 9.2 fL 7.4 - 10.4 [facility] Neutrophils/100 leukocytes in Blood by Automated count 75.5 % 37. 0 - 80.0 [facility] Lymphocytes/100 leukocytes in Blood by Manual count 14.1 % 25.0 - 40.0 L [facility] Monocytes/100 leukocytes in Blood by Automated count 9.3 % 3.0 - 8.0 H [facility] Eosinophils/100 leukocytes in Blood by Automated count 0.4 % 0.0 - 7.0 [facility] Basophils/100 leukocytes in Blood by Automated count 0.4 % 0.0 - 2.0 [facility] %IG 0.3 % 0.0 - 0.0 H [facility] al %NRBC 0.0 % 0.0 - 0.0 [facility] al Neutrophils [#/volume] in Blood by Automated count 7.16 10^3/uL 2.00 - 6.90 H [facility] Lymphocytes [#/volume] in Blood by Automated count 1.34 10^3/uL 0.60 - 3.40 [facility] Monocytes [#/volume] in Blood by Automated count 0.88 10^3/uL 0.00 - 0.90 [facility] Eosinophils [#/volume] in Blood by Automated count 0.04 10^3/uL 0.00 - 0.70 [facility] Basophils [#/volume] in Blood by Automated count 0.04 10^3/uL 0.00 - 0.20 [facility] #IG 0.03 10^3/uL 0.00 - 0.10 [facility] #NRBC 0.00 10^3/uL 0.00 - 0.00 [facility] MANUAL DIFF NOT INDICATED [facility] RBC MORPH NOT INDICATED [facility] ID Date Data Source [id number] 02/09/2021 04:40:00 PM EDT [facility]) Name Value Range Interpretation Code Description Data Alma rce(s) Supporting Document(s) Blood Glucose: mg/dl Blood Glucose: mg/dl [facility]) ID Date Data Source [id number] 02/09/2021 04:40:00 PM EDT [facility]) Name Value Range Interpretation Code Description Data Alma rce(s) Supporting Document(s) Blood Glucose: mg/dl Blood Glucose: mg/dl [facility]) ID Date Data Source [id number] 02/09/2021 04:40:00 PM EDT [facility]) Name Value Range Interpretation Code Description Data Alma rce(s) Supporting Document(s) Blood Glucose: mg/dl Blood Glucose: mg/dl [place] ([facility]) ID Date Data Source [id number] 02/09/2021 04:40:00 PM EDT [facility]) Name Value Range Interpretation Code Description Data Alma rce(s) Supporting Document(s) Blood Glucose: mg/dl Blood Glucose: mg/dl [place] ([facility]) ID Date Data Source [id number] 02/09/2021 04:33:00 PM EDT [facility]) Name Value Range Interpretation Code Description Data Alma rce(s) Supporting Document(s) bilirubin neg Bilirubin [place] ([facility]) leukocytes neg Leukocytes [place] ([facility]) blood Blood [place] ([facility]) ketone Ketone [place] ([facility]) glucose Glucose [place] ([facility]) specific gravity Specific [place] ([facility]) pH Ph [place] ([facility]) protein Protein [place] ([facility]) nitrite neg Nitrite [place] ([facility]) urobilinogen neg Urobilinogen [place] ([facility]) ID Date Data Source [id number] 02/09/2021 04:33:00 PM EDT [place] ([facility]) Name Value Range Interpretation Code Description Data Alma rce(s) Supporting Document(s) bilirubin neg Bilirubin [place] ([facility]) glucose Glucose [place] ([facility]) blood Blood [place] ([facility]) nitrite neg Nitrite [place] ([facility]) leukocytes neg Leukocytes [place] ([facility]) ketone Ketone [place] ([facility]) pH Ph [place] ([facility]) specific gravity Specific [place] ([facility]) protein Protein [place] ([facility]) urobilinogen neg Urobilinogen [place] ([facility]) ID Date Data Source [id number] 02/09/2021 04:33:00 PM EDT [place] ([facility]) Name Value Range Interpretation Code Description Data Alma rce(s) Supporting Document(s) bilirubin neg Bilirubin [place] ([facility]) blood Blood [place] ([facility]) glucose Glucose [place] ([facility]) ketone Ketone [place] ([facility]) leukocytes neg Leukocytes [place] ([facility]) nitrite neg Nitrite [place] ([facility]) pH Ph [place] ([facility]) specific gravity Specific [place] ([facility]) protein Protein [place] ([facility]) urobilinogen neg Urobilinogen [place] ([facility]) ID Date Data Source [id number] 02/09/2021 04:33:00 PM EDT [place] ([facility]) Name Value Range Interpretation Code Description Data Alma rce(s) Supporting Document(s) bilirubin neg Bilirubin [place] ([facility]) glucose Glucose [place] ([facility]) blood Blood [place] ([facility]) leukocytes neg Leukocytes [place] ([facility]) nitrite neg Nitrite [place] ([facility]) ketone Ketone [place] ([facility]) protein Protein [place] ([facility]) specific gravity Specific [place] ([facility]) pH Ph [place] ([facility]) urobilinogen neg Urobilinogen [place] ([facility]) ID Date Data Source [id number] 02/02/2021 11:59:00 AM EDT [place] ([facility]) Name Value Range Interpretation Code Description Data Alma rce(s) Supporting Document(s) bedside glucose 251 mg/dL 83-110 Above high normal Bedside Gluco se [place] ([facility]) ID Date Data Source [id number] 02/02/2021 11:59:00 AM EDT [facility]) Name Value Range Interpretation Code Description Data Alma rce(s) Supporting Document(s) bedside glucose 251 mg/dL 83-110 Above high normal Bedside Gluco se [place] ([facility]) ID Date Data Source [id number] 02/02/2021 11:59:00 AM [facility] Name Value Range Interpretation Code Description Data Alma rce(s) Supporting Document(s) bedside glucose 251 mg/dL 83-110 Above high normal Bedside Gluco se [facility]) ID Date Data Source [id number] 02/02/2021 11:59:00 AM EDT [place] ([facility]) Name Value Range Interpretation Code Description Data Alma rce(s) Supporting Document(s) bedside glucose 251 mg/dL 83-110 Above high normal Bedside Gluco se [place] ([facility]) ID Date Data Source [id number] 01/30/2021 05:01:00 PM EDT [facility] Name Value Range Interpretation Code Description Data Alma rce(s) Supporting Document(s) SARS coronavirus 2 RNA [Presence] in Res piratory specimen by GAVIN with probe detection NEGATIVE [facility] This lab was ordered by [facility] a nd reported by [facility]. ID Date Data Source [id number] 01/10/2021 06:28:00 [place] [address] PROGRESS NOTENAME: HAYLEE Forrester ROOM#: [id number] OF : 1945 MR#: [id number] DATE: 01/10/21 OF SERVICE: 01/10/21SUBJECTIVE: The patient [...] will seek an opinion from the cardiac diathermy equipment repairer from [place]. The patient might be a candidate for [...] rce(s) Supporting Document(s) ID Date Data Source [id number] 01/09/2021 11:55:00 [place] [address] PROGRESS NOTENAME: HAYLEE Forrester ROOM#: [id number] OF : 1945 MR#: [id number] DATE: 01/08/21 OF SERVICE: 01/09/21SUBJECTIVE: This patient [...] syncope, for which he was hospitalized at [facility]. He was also in rehab.OBJECTIVE: On [...] rce(s) Supporting Document(s) ID Date Data Source [id number] 01/10/2021 05:42:00 [place] [address] HISTORY AND PHYSICALNAME: HAYLEE Forrester ROOM#: [id number] OF : 1945 MR#: [id number] PHYS: Paul Rushing MD, PC DATE: 01/08/21CHIEF COMPLAINT: This 75-year-old [...] offrequent falls, forgetfulness. He has been to [facility] a couple of times and was admitted. [...] of times before. Patient was also seen [facility]. The patient denies any chest pain. There is no history of any orthopnea or paroxysmalnocturnal dyspnea. He denies any headache. He is not sure whether he passed out.PAST MEDICAL HISTORY:The patient has known history of COPD. He has not taken any medication for the last 3-4 weeks.Patient was admitted in September to [facility] for dizziness, episode of fall and we [...] with no rales or rhonchi. [address] [place] [address] HISTORY AND PHYSICALNAME: HAYLEE Forrester ROOM#: [id number] OF : 1945 MR#: [id number] PHYS: Paul Rushing MD, DATE: 01/08/21ABDOMEN: Soft [...] weeks. He was hospitalized in September 2020to [facility] and we will get all those records. We will do a CT scan of the brain. We will also givehim IV fluids. He is not eating well. He lost weight and he is emaciated. PT/OT will be done. X-ray of the leftknee will be done to rule out fracture.DD: Paul Rushing MD, 01/08/21 18:30DT: DULCE 01/09/21 04:18/SSR 01/09/21 06:59DS: Paul Rushing MD, 01/16/21 08:27 2 Name Value Range Interpretation Code Description Data Alma rce(s) Supporting Document(s) ID Date Data Source [id number] 01/10/2021 05:56:00 [place] [address] DISCHARGE SUMMARYNAME: HAYLEE Forrester ROOM#: [id number] OF : 1945 MR#: [id number] PHYS: Paul Rushing MD, DATE: 01/10/21 DISCHARGED:HISTORY OF PRESENT ILLNESS:This 75-year-old white male presented with an episode of fall with injury to the left knee and possiblesyncope. The patient claims that he was walking in his house going to the window when suddenly he fainted,falling to the floor, causing injury to the left knee. He had previous episode of syncope and was admitted [facility]. On examination, blood pressure was 130/80. Head is normal. Heart is regular sinusrhythm. Lungs are clear. Abdomen is soft. Patient has not been taking any medication for the last 6 weeks. Hehas known diabetes and hypertension.LABORATORY & X-RAY DATA:Lab tests showed that his echocardiogram done at [facility] was normal. Carotid ultrasound wasnormal. His [...] to speak with Dr. Pascual, the cardiac diathermy equipment repairer [facility]. The patient had two episodes of syncope, so it the possibility of advance heartblock cannot be ruled out. He might be a candidate for a pacemaker and EP studies, so the patient willbe transferred to his service at [facility] for evaluation for permanent pacemaker. [...] but the radiologist was not convinced. [address] [place] [address] DISCHARGE SUMMARYNAME: HAYLEE Forrester ROOM#: [id number] OF : 1945 MR#: [id number] PHYS: Paul Rushing MD, PC DATE: 01/10/21 DISCHARGED:DD: Paul Rushing MD, PC 01/10/21 17:02DT: DMLuz 01/10/21 17:43DS: Paul Rushing MD, PC 01/16/21 08:27 2 Name Value Range Interpretation Code Description Data Alma rce(s) Supporting Document(s) ID Date Data Source [id number] 01/15/2021 08:52:50 AM EDT [facility] Name Value Range Interpretation Code Description Data Alma rce(s) Supporting Document(s) &PDF [facility] [id number] [file] [id number] ID Date Data Source [id number] 01/13/2021 11:03:33 PM EDT [facility] NT INFORMATIONPatient MRN Name Date of Age Gend*PT [id number] Magdy Leach 1945 75 years M IPPT Location Admission Date/Time Visit ID Attending [id number] 01/10/212351 --- --- EPI ID CSN Admitting Provider [id number] M Alexander Pascual MD([id number]) Attestation signed by Carla Tolentino MD at 01/13/2021 11:03 PMI saw and evaluated the patient and reviewed COMMUNITY RELATIONS ADVISOR Ms. Lopez's note. I agree withthe history, physical and medical decision making with the following additions,exceptions, and/or observations: NoneSignature: JASON Leyvaate: January 13, 2021Time: 11:03 PM --Cardiology Discharge SummaryPatient Name: Magdy Leach of : 1945 Age 75 yearsPrimary Physician: PCP PROVIDER REQUESTED PCP Phone: NoneAdmission Date: 01/10/2021 Discharge Date: 01/13/2021He will be discharged from [facility] to [facility] Diagnoses:Principal Problem: Abnormal EKG PPMActive Problems: Diabetes mellitus Hypertension Hyperlipemia Dementia Frequent falls Syncope Acute pain of left kneeDischarge Medications:Your medication listCONTINUE taking these medications Instructions Last Dose Given Morning Afternoon Evening Bedtime As NeededamLODIPine 5 MG tabletCommonly known as: NORVASC Take 1 tablet (5 mg total) by mouth dailyWhere to Get Your MedicationsThese medications were sent to [facility] [place], [place] [facility] [address] amLODIPine 5 MG tabletFollow Up Instructions:Dr. Segura Hospital Course:1. 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 Has signed out of rehab recently. [facility] gyroscopic instrument tester following. Discharge Exam:Blood Pressure: BP: 111/73 Pulse: [...] Component Value Units Date/Time COVID/FLU AB/RSV PCR [[id number]] Collected: 01/11/21 0100 Order Status: Completed Specimen: Swab from Nasopharyngeal Updated: SPECIMEN DESCRIPTION NASOPHARYNGEAL Influenza A NEGATIVE Influenza B NEGATIVE RSV NEGATIVE Comment SEE NOTES Comment: SEE NOTE:THE U.S. FDA HAS MADE THIS TEST AVAILABLEUNDER AN EMERGENCY USE AUTHORIZATION(EUA) FOR THE DETECTION AND/OR DIAGNOSISOF THE VIRUS THAT CAUSES COVID-19.PERFORMED AT [address] [place] [address] COVID19 RESULT NOT DETECTED Comment: THIS ASSAY AMPLIFIES AND DETECTSTHE TARGET RNA USING REAL-TIME PCR.TESTING PERFORMED ON [place] GENEXPERTNEGATIVE 2019_NCOV RT-PCR RESULTS DONOT PRECLUDE 2019_NCOV [...] rce(s) Supporting Document(s) ID Date Data Source [id number] 01/13/2021 12:21:35 PM EDT [facility] Name Value Range Interpretation Code Description Data Alma rce(s) Supporting Document(s) POC NOVA GLU 202 mg/dL (70-99) H [facility]ICAL STAFF ID Date Data Source [id number] 01/13/2021 08:54:59 AM EDT [facility] Name Value Range Interpretation Code Description Data Alma rce(s) Supporting Document(s) POC NOVA GLU 158 mg/dL (70-99) H [facility] ID Date Data Source [id number] 01/13/2021 08:54:35 AM EDT [facility] Name Value Range Interpretation Code Description Data Alma rce(s) Supporting Document(s) SODIUM 131 mmol/L (136-145) L [facility] POTASSIUM 4.3 mmol/L (3.6-5.2) [facility] CHLORIDE 97 mmol/L (100-108) L [facility] CO2 25 mmol/L (22-31) [facility] ANION GAP 9 mmol/L (7-16) [facility] UREA NITROGEN 23 mg/dL (7-24) [facility] CREATININE 0.67 mg/dL (0.80-1.30) L [facility] BUN/CREAT RATIO 34.3 RATIO (10.0-20.0) H [facility] GLUCOSE 159 mg/dL (70-99) H [facility] CALCIUM 9.0 mg/dL (8.4-10.2) [facility] GFR >60 ml/min/1.73m2 (>59) [facility] GFR ( AMER) >60 ml/min/1.73m2 (>59) [facility] GFR INTERPRETATION [facility] --NORMAL KIDNEY FUNCTION OR MILD DISEASE - GFR >OR= 60CHRONIC KIDNEY DISEASE - GFR 15 - 59RENAL FAILURE - GFR <15 Est. GFR calculation based on the MDRDstudy equation, which assumes a steadystate for creatinine. Est. GFR should notbe used for medication dosing. ID Date Data Source [id number] 01/13/2021 08:20:39 AM EDT [facility] Name Value Range Interpretation Code Description Data Alma rce(s) Supporting Document(s) WBC 5.6 10*3/uL (4.1-11.0) [facility] RBC 5.48 10*6/uL (4.60-6.10) [facility] HGB 16.3 g/dL (13.5-18.0) [facility] HCT 48.2 % (41.0-53.0) [facility] MCV 87.9 fL (80.0-95.0) [facility] MCH 29.8 pg (27.0-32.0) [facility] MCHC 33.9 g/dL (32.0-36.0) [facility] RDW 14.4 % (10.5-14.5) [facility] PLT 238 10*3/uL (150-450) [facility] MPV 7.7 fL (7.1-10.7) [facility] ID Date Data Source [id number] 01/12/2021 07:22:09 PM EDT [facility] Name Value Range Interpretation Code Description Data Alma rce(s) Supporting Document(s) POC NOVA GLU 138 mg/dL (70-99) H [facility] ID Date Data Source [id number] 01/12/2021 06:59:22 PM EDT [address] [address]Ajpmbok Name: MAGDY KAURONDOB: 1945Sex: MOrdering Provider: Brooklyn Ding Prov: Brooklyn Hu Provider: Procedure Performed: XR CHEST PORTABLEExam Date: 01/12/2021 18:55MRN: [id number] Number: [id number] Class: InpatientAccount #: [id number] for Exam: ppmTechnique: AP portable view obtained.Comparison: October 03, 2020Findings: Heart size is normal. No adenopathy is revealed. Right atrial and right ventricle pacemaker leads are present. Lungs are hypoinflated. No pleural effusion is demonstrated.IMPRESSION: No acute abnormality.Report electronically signed by: FRANCK BERNAL On 01/12/2021 6:59 PMWorkstation ID: [id number] Name Value Range Interpretation Code Description Data Alma rce(s) Supporting Document(s) ID Date Data Source [id number] 01/12/2021 12:38:34 PM EDT [facility] Name Value Range Interpretation Code Description Data Alma rce(s) Supporting Document(s) POC NOVA GLU 155 mg/dL (70-99) H [facility] ID Date Data Source [id number] 01/12/2021 08:41:31 AM EDT [facility] Name Value Range Interpretation Code Description Data Alma rce(s) Supporting Document(s) POC NOVA GLU 175 mg/dL (70-99) H [facility] ID Date Data Source [id number] 01/12/2021 06:11:35 AM EDT [facility] Name Value Range Interpretation Code Description Data Alma rce(s) Supporting Document(s) SODIUM 131 mmol/L (136-145) L [facility] POTASSIUM 4.2 mmol/L (3.6-5.2) [facility] CHLORIDE 95 mmol/L (100-108) L [facility] CO2 27 mmol/L (22-31) [facility] ANION GAP 9 mmol/L (7-16) [facility] UREA NITROGEN 21 mg/dL (7-24) [facility] CREATININE 0.68 mg/dL (0.80-1.30) L [facility] BUN/CREAT RATIO 30.9 RATIO (10.0-20.0) H [facility] GLUCOSE 140 mg/dL (70-99) H [facility] CALCIUM 8.9 mg/dL (8.4-10.2) [facility] GFR >60 ml/min/1.73m2 (>59) [facility] GFR ( AMER) >60 ml/min/1.73m2 (>59) [facility] GFR INTERPRETATION [facility] --NORMAL KIDNEY FUNCTION OR MILD DISEASE - GFR >OR= 60CHRONIC KIDNEY DISEASE - GFR 15 - 59RENAL FAILURE - GFR <15 Est. GFR calculation based on the MDRDstudy equation, which assumes a steadystate for creatinine. Est. GFR should notbe used for medication dosing. ID Date Data Source [id number] 01/12/2021 05:38:24 AM EDT [facility] Name Value Range Interpretation Code Description Data Alma rce(s) Supporting Document(s) WBC 6.4 10*3/uL (4.1-11.0) [facility] RBC 5.20 10*6/uL (4.60-6.10) [facility] HGB 15.5 g/dL (13.5-18.0) [facility] HCT 45.5 % (41.0-53.0) [facility] MCV 87.5 fL (80.0-95.0) [facility] MCH 29.9 pg (27.0-32.0) [facility] MCHC 34.2 g/dL (32.0-36.0) [facility] RDW 14.2 % (10.5-14.5) [facility] PLT 261 10*3/uL (150-450) [facility] MPV 8.1 fL (7.1-10.7) [facility] ID Date Data Source [id number] 01/11/2021 07:52:46 PM [facility]T [facility] INFORMATIONPatient MRN Name Date of Age Gend*PT [id number] Magdy Leach 1945 75 years M IPPT Location Admission Date/Time Visit ID Attending [id number] 01/10/212 --- Brooklyn Pascual MD([id number]) EPI ID CSN Admitting Provider [id number] Brooklyn Pascual MD([id number]) Attestation signed by Brooklyn Pascual MD at [...] the plan as noted above.Alexander Pascual M.D., [facility], [facility] Cardiac Electrophysiology01/11/2021 7:37 PM --Inpatient History & PhysicalHoward HayleeMRN: [id number] and Plan:Principal Problem: Abnormal EKGActive Problems: Diabetes [...] this CC. [facility], and [facility] for falls with possible syncope over the last 5 months. ??Polypharmacy- it is possible he is doubling medications at home with hisunderling dementia. He has had carotid doppler at [facility] showing < 50 stenosisbilaterally. TTE was done outpatient 04/2020 showing LV EF 60% and grade Idiastolic dysfunction. Check orthostatic BP, update TTE (I do not see any recordof this being updated at [facility]).3. HTN: continue home dose of norvasc. Hold BB. Pt has reportedly not takenmedications for several weeks for reasons that are not clear.4. DM II: hold oral agents and start frail SS insulin. Adjust coverage asneeded.5. HLD: continue statin6. Left knee pain- acute: S/p fall. CT scan at [facility] demonstrated moderateeffusion, no fracture. Consider ortho consult. [...] it is January, and he is in [place]. He does not know whatyear it is.DVT px: heparinHistory of Present Illness: Magdy is a 75 year old male with PMH of COPD,dementia, DM II, HTN, HLD who was transferred from [facility] because ofan abnormal EKG. The patient presented to [facility] on 01/08 for fall withpossible syncope. Pt has underlying dementia and is a poor historian. He stateshe got tangled in the dog's kennel while moving through his kitchen and couldnot get untangled. He states he lives alone. He was [facility] in [facility] and has had multiple falls over the last several months with questionablesyncope. He has been seen by Dr. Collazo in the past for chest pain and nearsyncope dating back several years as per notes in Care Every[facility] in [facility]. Therecords sent from [facility] indicated that the patient has not hadmedications in several months. The patient does not drive but tells me that hisprescriptions are delivered to him. On exam, he is somnolent, wakes to strongtactile stimulation. He is able to provide some history, however, he is onlyoriented to person. He is not oriented to time or place and tells me that [place] and it it January and he does not know the month. He is tangential inthoughts and has difficulty following conversation and answering questions. Workup at [facility] included carotid doppler which demonstrated <50%stenosis bilaterally, CT head which was negative for acute process, CT left kneewhich demonstrated foreign body and moderate effusion- no fracture. 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 Hereportedly was in second degree block which is the reason for transfer, however,there is no documentation of this in the chart that was sent from [facility].Past Medical History:Past Medical History:Diagnosis Date COPD (chronic [...] Social Gatherings with Friends and Family: Attends [employer] Services: Active Member of Clubs or Organizations: [...] rce(s) Supporting Document(s) ID Date Data Source [id number] 01/11/2021 06:54:08 PM EDT [facility] Name Value Range Interpretation Code Description Data Alma rce(s) Supporting Document(s) POC NOVA GLU 169 mg/dL (70-99) H [facility] ID Date Data Source [id number] 01/11/2021 04:48:33 PM EDT [facility] Name Value Range Interpretation Code Description Data Alma rce(s) Supporting Document(s) D-DIMER,SENSITIVE 0.28 mg/L (<0.50) [facility] ID Date Data Source [id number] 01/11/2021 09:44:00 AM EDT [facility] [address] [place] [address] PHONE: [phone] FAX: [phone] Name .................. : HAYLEE Forrester Acct Number.................. : [id number] ROOM. ................. : 101-1 MR Number ................... : [id number] Stay type ............. : I/P Discharge Date......... ... : 01/10/21 Admit Date ......... : 01/10/21 Admit Phys .................... : J LUIS VIDA Date of ....... : 1945 Family Phys ................... : J LUIS VIDA Phone .................. : [phone] Age ................................ : 75 Film# .................. .:[id number] Sex ................................. : M Unsigned transcriptions are preliminary reports and do not represent a medical or legal document CT CTA CHEST NON-CORONARY W C 58263 COMPLETE:01/10/21 19:19 TAYO 71462 Reason for Exam: PE CTA OF THE [...] imperative reconstructive techniques. Page 1 of [address] [place] [address] PHONE: [phone] FAX: [phone] Name .................. : HAYLEE Forrester Acct Number.................. : [id number] ROOM. ................. : 101-1 MR Number ................... : [id number] Stay type ............. : I/P Discharge Date......... ... : 01/10/21 Admit Date ......... : 01/10/21 Admit Phys .................... : J LUIS VIDA Date of ....... : 1945 Family Phys ................... : J LUIS VIDA Phone .................. : [phone] Age ................................ : 75 Film# .................. .:[id number] Sex ................................. : M Unsigned transcriptions are preliminary reports and do not represent a medical or legal document CT CTA CHEST NON-CORONARY W C 87558 COMPLETE:01/10/21 19:19 TAYO [id number] Reason for Exam: PE CT dose: 820.7 [...] rce(s) Supporting Document(s) ID Date Data Source [id number] 01/11/2021 09:43:00 [place] [address] PHONE: [phone] FAX: [phone] Name .................. : HAYLEE Forrester Acct Number.................. : [id number] ROOM. ................. : 101-1 MR Number ................... : [id number] Stay type ............. : I/P Discharge Date......... ... : 01/10/21 Admit Date ......... : 01/10/21 Admit Phys .................... : J LUIS VIDA Date of ....... : 1945 Family Phys ................... : J LUIS VIDA Phone .................. : [phone] Age ................................ : 75 Film# .................. .:[id number] Sex ................................. : M Unsigned transcriptions are preliminary reports and do not represent a medical or legal document CT ABD & PELVIS W/ IV ONLY 11180 COMPLETE:01/10/21 19:19 TAYO [id number] Reason for Exam: DIVERTICULITIS CT SCAN OF [...] 75 [address] 370 Page 1 of 2 [facility] [address] [place] [address] PHONE: [phone] FAX: [phone] Name .................. : HAYLEE Forrester Acct Number.................. : [id number] ROOM. ................. : 101-1 MR Number ................... : [id number] Stay type ............. : I/P Discharge Date......... ... : 01/10/21 Admit Date ......... : 01/10/21 Admit Phys .................... : J LUIS VIDA Date of ....... : 1945 Family Phys ................... : J LUIS VIDA Phone .................. : [phone] Age ................................ : 75 Film# .................. .:[id number] Sex ................................. : M Unsigned transcriptions are preliminary reports and do not represent a medical or legal document CT ABD & PELVIS W/ IV ONLY 94722 COMPLETE:01/10/21 19:19 TAYO [id number] Reason for Exam: DIVERTICULITIS Method of administration: [...] rce(s) Supporting Document(s) ID Date Data Source [id number] 01/11/2021 09:19:06 AM EDT [facility] Name Value Range Interpretation Code Description Data Alma rce(s) Supporting Document(s) &PDF [facility] NTVXPg8mDrNGHrGs49/IOQqkLOXgw1TpBUrzGSs9QYdvFGTwK4HkiBmlJHWZPDVBZGIWZ77tIY5WQBDN 0b3 [file] ICAgICAgICAgICAgICAgICAgICAgICAgICAgICAgICAgICAgICAgICAgICAgICAgICAgICAgICAgICAg ICAgICAgICAgICAgICAgICAgICAgICAgDQogICAgICAgICAgICAgICAgICAgICAgICAgICAgICAgICAg ICAgICAgICAgICAgICAgICAgICAgICAgICAgICAgIC AgICAgICAgICAgICAgICAgICAgICAgICAgICAgICAgICAgDQogICAgICAgICAgICAgICAgICAgICAgIC AgICAgICAgICAgICAgICAgICAgICAgICAgICAgICAgICAgICAgICAgICAgICAgICAgICAgICAgICAgIC AgICAgICAgICAgICAgICAgDQogICAgICAgICAgICAg ICAgICAgICAgICAgICAgICAgICAgICAgICAgICAgICAgICAgICAgICAgICAgICAgICAgICAgICAgICAg ICAgICAgICAgICAgICAgICAgICAgICAgICAgDQogICAgICAgICAgICAgICAgICAgICAgICAgICAgICAg ICAgICAgICAgICAgICAgICAgICAgICAgICAgICAgIC AgICAgICAgICAgICAgICAgICAgICAgICAgICAgICAgICAgICAgDQogICAgICAgICAgICAgICAgICAgIC AgICAgICAgICAgICAgICAgICAgICAgICAgICAgICAgICAgICAgICAgICAgICAgICAgICAgICAgICAgIC AgICAgICAgICAgICAgICAgICAgDQogICAgICAgICAg ICAgICAgICAgICAgICAgICAgICAgICAgICAgICAgICAgICAgICAgICAgICAgICAgICAgICAgICAgICAg ICAgICAgICAgICAgICAgICAgICAgICAgICAgICAgDQogICAgICAgICAgICAgICAgICAgICAgICAgICAg ICAgICAgICAgICAgICAgICAgICAgICAgICAgICAgIC AgICAgICAgICAgICAgICAgICAgICAgICAgICAgICAgICAgICAgICAgDQogICAgICAgICAgICAgICAgIC AgICAgICAgICAgICAgICAgICAgICAgICAgICAgICAgICAgICAgICAgICAgICAgICAgICAgICAgICAgIC AgICAgICAgICAgICAgICAgICAgICAgDQogICAgICAg ICAgICAgICAgICAgICAgICAgICAgICAgICAgICAgICAgICAgICAgICAgICAgICAgICAgICAgICAgICAg QTAfJUAqOAHiVSTkKQFeGVVgCTAhGCPlUPBcSVUwWOFnKTz7O4lxHRLuPQApJF4mQPi8Za7+DQoNCmVu GDT5umTdhT0VTZ0hv1VwPElpUUVtu4XwYTd0PD7ZKU AyKUnkAE4DHZgqza5JXVXyBPCaeXEMs0flFuZzUZJ2YEUrWcfbDM5PFRKyG8cogbPwTAHvBDYEVMcdWT CKVMneDKERND6JGkZiW7SjhQ22DAXBNd2+ODbwrfEkBloYFjZvCSIbq9QuVZx3IW9QKODqTAvvEZ5NOH VrcP5rQYanAM6NRpE8IYUrQMRQJwYyK52mtNWgKTt3 Y0TmAgZhSTBjSbyxFVCxGQexFhZrJROoHiJxVFllKE3+ID4+YElqQD1YZZlzyjRdQEUkOn4GHUCeWYH8 VPVmbIDaSVLgJNVLBVbuZB4KwDPkDKL1aL4gMJsbOSNmBLNbL8yYYbXpbMlyNB86rZjdnsMrpWJuREq+ Jw0LRT9sm5UvNTj2isUvDBqjZDXtUXvmHGWyPAKxRY KmLLQ1TFV5WJDNTcGjCTVqNTUaLGbxSGJmJNYdlk9LOZVaGIN0DpbsEHCaMLJvTLZuNAqyTSNdBVV3HM B5CQTvLPRvSR0BVpJzXQRnBUUyMMDuUQLwULCcly1WOGBzMAUuBxD0IjSfXNQdBLYyCJghFMBtSVRpEo tfBLRxPNIoKE6IFiXiMFKkBHM7PYIfHRUeVUUmwr7K MHRtWOZmZWahNERmENMrTSEnXZblXAUkGHU3SjSlBQFqHYXgDD3UFkVeVMRaXTD2FnDfRMUlPEHhdx0F CHAoFZCeVpp0WjTnPPOsTRZfPBliXRSxYGP3KEinHZTnLJFuFM0RVePqLZIwQNgkDsYcJCFtKGWwza7D OWCgUMFqVJXjQCGrKWMoEPFpZGmzGZNoPYS4JCX7IT ZkZRApVV6FHqOqDECpPJd8IyHaVXZjLMCsya4GDDOePZIsEBV4LBFrMYFgNFAmJZfeTQYvRGN3Sfj7ND PhBGOxMA8KGxKuZYGzZDDyKMDpHKGkUDNpvb0HAGEfCTFhSQP1IDEvOPIpLXGrHUwmOQFeNNK8Yfh3NA WyRFPpSU7LOdCoRIQtRZXsEcdwIULiQXAeiv3QJKJl ZIXtJvTfATNtUFFtBHBzUVleKNChOYE3Srq6NKWlDADvYR6DDqYtDMWjJfV9UMXaAETuFFLebv7QAYGk UZYrTsJwMUDkLODaOPEzNYdzCTWzHNY2ZhI0MDPlBKWpQI7EYlNxFTTbYlFsOMgdCHTuPLBinn1TZIBc FPAlSTG9VFPyWSHeVLXhCYbkYYCaHTH3GnM5EQCmEL SaQW5HHzCdEBBvFTY6DAYwXZUcHADcrs5XPYPwRVP0Pkp9CwHlSFDdYBUeWTckZJSwIMH3FUV3HVQpCL OcJW4XRkThCBAaBLA6WLfbQLQvYXUkek9JYPGfCMH4SRn5ZLVxIVSkRHQmUSflBXDfKMR6PwB6HUTqXF UtZE3WHjDmVZDaWhS1AzQiMHUwQNPluf8CSXDqFYL6 WMruAhWkXSKePYOgHKycJGIzJUO2UQXyNJEtNPYyRO5SCsMqXGMdMze9ANCxQTKxOWKcuj2DFXVmHMV1 GFC6DhQqCJReTSUtWGhhHTFkVIQ7PDU7ARDvBWBgLB2VWqKiDHmwCFLUSrf6ANrvE2q6MER0Vf0ZT9Bq l3ZuDGLoDDAMJQnnRU8hmbShIITwBj8TH4gICkkwQH W6CzK8PILvTnyiZmD1WIkkECN3OIvfOZHzW0O0JL0aQYY6BHH4NRw1T8I6USJhXcmtJyO7GAp5FMK0XY T3ZGy9OnVuCN6SPx6QStA6SXO2sDGhXa7XLuVhWeORDxAuAW9LHQo= ID Date Data Source [id number] 01/11/2021 09:26:41 AM EDT [facility] Name Value Range Interpretation Code Description Data Alma rce(s) Supporting Document(s) EKG [facility] NUWKJz6aKpZYGoSxp0TbTgRvLPLeYP9bsfw9B7U2sXXlG7FswWJre4igM9GuI3NcSGZgSTZGLA3GiVXm jb2 [file] wJIiRY0tjzwqZkuKiTLtei9P7j4bTUfF6R8fD6kb+TwbFc2YC9ZfdNU+UlowaEgmmo1A5hg5wJjPu+Subscription Crew Leader +M6M9C1FDCiVhWygEzjZ/exbJ6e9ELpwEiMjILLJhA n1AeCOOKqj19Lubgq5NOVrn64U4rfcfcM+dnuAXI90JFsi+tSwjaXadJxB7zS8Yxr4BxTGHeR+c86o9p 51WeG5iwEMZw2Sq1K634fe86FPt+IGriw+cgzwqhy1XeybZE5Mb52Ia+8KWG/cdx4b/57iE4vKzEyuFO UF8VmeqNueGFN3E09/RPGx5F+9H06ts5EAtC5PS4hw 3/kK/wWN2mFAJS9vTgbpenLGoXSyVObReKiXFwyBJ1W5QS7t1BHl6blen/E4FvvZRm0eQyxZAOmtVwiC zw7mlfAOjm5fVOW3zpOI3Aj1UHXM3wfbUj+upUmLDZlemyaVdsDs2nYf58k4keEiPQFtefFnJgJMAAVg dKsu4eh+HnTd5NRk1DdL1vE/omx47xebZPLQL8JY7v i5bW4HE6z270iRk13XhxVkGk9i4w4osRXlVY04f42dAW0NtSoCe6Fj6WL5a886PR0/8lDwQU85fmmH/r aphVO363Z3cP5jjBs5eDj27dS/FXq4zFIt31SE9+Fj4PKMtvBC0xOlJs/BmIt2drO93EwTJIRD4kU66y 7cki710rVC4GR6RLxfFr9Dojpv5TvXVQtKsRA/vsfi J4r6T7xmL8G7pV/lXNlw2vgPwTDS7wOri7FmGLBfAEGrVyphv7z/8hX8+dCKjyVdbcXHkhCv+FjuVB07 4B0RyQeiRG6NaRm8YOUFJ1v+yeWrB8pSEkDYw2Os8Y2LDLjaoJ9QbYMMBX2UfGsXiTJGJzpb1YFzVr0D E+fako/lCdTgbF/ggoAMHv1h4xZ4qtoLQkmns2IlL9 vVwBcn+UevJJ3EyM/fxf9lU9rqzHSurjgP9pIfpVQD2LwaK2zUNk/K6uI2rhglLsqnz50wgoYUNK8VPg yljmfoK5jV/phmO9bSkIyG7F3VpOo9qn2pJmfrMa/ETXNUcEM4CC5gi2TOte/QxMdSAjXwzRMfyxMU/2 LhcIbs5TdqRv0ClTxQd1GTDYgvVRdl8x3RaEurzWh8 X5gkwbocbG1CDr/Wu5fGpLHzg6gdeKMCN6lUMLt0CZ5HCtE1OEx7AK3G78b2+Daks3WNvDE8+FhK2C+q kDo3ULlsqPvoCo8b3d+8IKzqRVI3Kj2E95X1+HsaGMt2RR4CvgdCHlrQnU1jP9vAI2Q8+Orsnvx5HGNG jkp1GX2A6+FjyW/j//6P//Mhj4HZ7Fg6+q//88//+K //+p///Ov//vOf//qPk/9zN/3n//3HOeLyc/a6r9ZYeEB4A039M/3lY65xkIh/9wiP4cbhEdCWm8x11j kuQ2ZgsxY3hyrpq9++Yk/0sVmBpqI3of1t/et7J0zg/EJ+oHyg/J22FqMwCW/PfCDcPkGrpepE9izUB8 ytI7/X/LFnRp0aWdUJwPqu6tygvftZz/F+ux3vh8O+ UD7Q/kY+7u/PLrz3/KlKnnDCd056Mrwi/m+8Fk3pX/48UQd+FuHL/333hcpSY0fI/e9e/cxzt1ExrVva FmJQ7smH/mO8PdD+znV+0r/+vHWSocR9V28658liJoeD5JWh8RUyvS+QP5D/G68lc+pvvKbAMD+775WZ NF8CxbiakT+0E8g/805L5h81/gT9kkF7CMs/KmMo36 w5ohodMv7qkwBb05Q+Ix/c8Do41Hz3XfTXnQbBedVcdNXCVwrE/F3tzK/z3bpj9dGZyOjivXJvFTz46y /tT2Dno8Gk1J/wgz4aIf/W/JzIP+XUadmQd4TgiVf+dIds6uV2fF4G7vBD32sd5j+uNwl6573n2H/xfg r+8rPgfqGElPZ/zmmJ/z5x5v/5hapW+i9/9RuI/Z8f ZYfSf/lTgWd+ttuZgJP+5W+XLq70ww/y648tzg+00Cu2Fhxtv/SM/3g278f/9z46Zjnkw/4RiZw3H9lk 59QBq7h74kKlGhJ29693/bSj/I783/291xpeZfzkZ/aEnnUg1EctAQz1mfru8H4a4jT/5wzCSXulf/f3 61uqfeormfG8Bi2l2ygpjNVs12xo2R8+jLOX/o33y/ RIOcWk1j3x2eMfLL/09D2hJJQdcrtusb983/bmg7gxYhV+2TXhe4qr/72RX+/wl3hw8wb12Nv6ft74rY zzZyln+2das/3uPOLaR1gQzI+B86rhdAba/KYwAxIW9gp84A44Fw6GNyq/q820vpAL37aGrgs4w5/lJv xcfJrb4KbH17KxG0/ZPQTplXbkO/Yv9ioeJNq/Ib++ v+sVbVbZ6B83kz2XxO/p6r/nC7c9s4jx1OskklHCt5433324f53lgy/c2qMGHg4PNEqy/Yx1nqB81j4b 1rAktuxqXJ8ikwcGG+lu9FX7/si4VS1vFWA2Dh416vXgnU0kJ6xvuo5p51Au3k9ApIdu52Zfm+yrkV4u H9K//UyuE7b7UxcIdaafK72avi01d+oa8rzzyvuF4w 417G8V1v1K+2e88+37Tf51dCJl4gaoyMnpA3lH1C/0c1f+sa+y/WNfZRmv/3YmjLFxm8//hXOE4+VjPX zJjl8tdjNwC52gWV54Hkb53//ARrkp33lN/KxGiqb63BkA4//OD9iAtnFo/avYuT11RopMT6E2gF+8n2 fu69uepvtS22KdK2C0VuH1rbUc9XUpvlcU1Zrfi+r9 P+u75GVcVFurm0z+9Hlnvwri6VkKm2e/BzkVEdrEU18Dmaa+PA8BquT9P71cfY/WRPn6/d8IXfa4xhXL MrTr9uSnAtW3LWrCODYi90q/gru08lJWPd/fwHij/o/NSEq0Qnlu2Fa/MZGP72/rquI2BuNoJF8WfQK+ V/ld/7/o5OXjd7VF0AyqSc3qvWeedl/RDr6/e6A8xr nzggmd34tWxe91marpq3fTLhzSDsEWrAXIyCRKkW+OWGT5/zFaaq5NjNv9XJ10IlsqbV9eTsYm0E1t/b q/Pe0r5S+0U+JiT8C2qIc+96t/ZW90q/vbhV+zx1FsBIDYE3V7ieO6je612ZtaX+SLb8N52bv1H3/qwq /O+6ncaO105srrA/ZGt0B+oPx+936q6P0hhT+50n6/ JH13BvBcmHC2Dnb7bP2gU/TNd261fS3pFQl5KH/LgUXm8wXjIv99CBeRvsyyX/kie45YPoaXrRs77ONd ZbohvyG/8Lou+0dlf8e6qIbR99qfjI65kClIJ6dh46lE5+freInqjmj26PrIcSR75x56G8N+r422alxu +lfWdH5vH/0v9FH/A3029Rfmt+GSeD8QhtWB7vfkhI ei/ET5+h71Ud/jXxI2Lz/K8hvl6/fuhy0Hl/ArlXFDviG/8XeyUw15fz03kP+9E2Vx4P9P044xH+1gvI 7xCr+khy4vT2H+pac1LpeZdF0nCJ/nY9P7W5/ps76/rOC8z50/feL+GmnU5kMFsYM5iR1XokS/GO/[place] 40HhY8GmrrJ/SJ79HC+8m0bO2C4x30aC1EJU+pfdhX CzFHLchw1Mwyn+/ItpGr8cOpiT+cowyJ+HgHOJ4Oo4w8F10W8lp7l08ohso2lD6kbf6ywy6p/KgPf+mf ddGoHSN0O31p/mvCO2mJqT/em7nMlzv5GdW+1XXknE6pK9qLxp061E1I1b/qtvnxg55xG9Bp3/72UPqX b0qf+/zt2aj7hS/u78Hc+i68rgu/0eeRf7cCY/hVps 39D3z59m25MahD04PbhJ7Fdsn4nS43VMY+Ga/unfCrLL+Kh4bkEY/p3u1A/r062jL0uk/wjfEVHntOJu J1qkw1wf+++d73wsHwGM5++l98neRkSk/8tky0c3jdE5o241vqsd/D255P1nz/5VlVtW8i/bLxBdrfuO 5rlC8Ztn6o//1h9b8/ZF9l/hmv+qu4FlP8OKs6NQMW aGdU/d4uIVjM2mGQ/bhsXF4A/hlvpvW/rzKBdjbKC9/4rbch+6yuLY8w/zjjOqu6YM0aysE7piT8jh+a kmcFn1E2yV6x+yrTE/kT7Z/babdswAH3RF+D7uppHI57ofdHdqllq6lnPpqF+Z75OqobaLjsidegmArg 6/7G+9LIP+QImcYiV5L/jbefZ/+kX5n13ijfh+Pt59 k/Zwl+H9IX5bjk3z3cT8Od4Ya/v4+G1mkvDk188m5LO0V/bicDaA5MCrGrb7c8ak6SL2dD0x69f/I3ym O8x77K/or4Gfay++ozt75iP914Mt4g4CtN11HgA4/dMri/yjltEpXqIZ1yaSqy3RX+eiAf9/xZT6v1Ij mMnpC2S/wqlI/3NTQqC8adgQxmZt+s65EH1mFgl30z ke/In/V8Cb/U2IhogbK7dIn+R96gxpv7Gcs7G8wklYS8Ztmeaj7QoeI+Tuw0Au99c7GQAi5Np7OX6/Oa 6S1eybgxKdGavCE+/Q8e9//3yBnj7aF/7/H9v/qW70JFg6X9pKbt5K1Dos+P1//Lx/vj7K9EByDC+B4d ++d2M4Ba293WYT/EgiBNk1H/5W+Ux/2bcO5eF/+Xtm pnG/PybFL2YyFt9f0kTMcu9UcuobKp9C/GK/wq0/j+bnx/N4h6W09kK/i012gNj7X//Kq59HNqmfg+1X z21Gq68ITpo6yE+tXab536VPXbUIl5lIXq3aoIm1uhQdes/cO27einbjZ9pvJf4k335y132Zo9gbG+il tDfkd+R/6o68K+cnPk1/0D59D1H+UXyi/nB3bxbJpq KX9X+Yb72+l24x9kV25iETvA/UL6el7SFlsmsgR/kD+D98m205863NpC4oyza8bKwt+56tI5aFnPx23R /GIuNSAWDDp6pfxn/si+uunqT+8oj/N1jx70i+fXuyO/nl+XfXXTKF/Pr/h7H4g6H7+81fVDit52a+Cj /Mf1MT3ji/bLfBjKn/Ge/w4f9X/koyO/9stc+4PZ/k A7tR/bo25JFdlen/WM/UEfC/4Zbp2UiL5ofD/mAuc55c2hu6f//5vbqwp8R/1kJthb1x62Weh1N+jaH8 diWt6m4lsyzU/0tHfFacSB3dMw6n2vq8N/G+7WgfjV6z/wWf+/om5Tj26OQXvIO7OxaA5BV4vvq7Apfy W93d6LD7b1AwcJ25K+oM+Z8gH9ktZr5NC6uI63uowq /MqBX/lqKI/qav41oOkVsGUbxaDo7GZ+t97Gm9ZN6k/7Np2IP1X1l+yrbB/uQiZo7kuyRG+FVbzw1ht/ Roland/a7/bAeLU/eLAUh/+Vy/3Mwc8OM4wiBJo3bYwBr/pVUS0cm44xt3/w7dNjwnw2+HuxVxL1n+mdGcff bKi83455/N9c/ld6Vwu/Uh+0P3j+q1j3d7b9x4/Sd+ Rlzoio0GfWb4+av76x5cpwNoe6FitFyo+VsvpNmii8x90l+KTSB5/U+//YVzf/+YdzUAcQsF83xLnVHM f4zD++8Ok/cdve0v2U5A1+sypNm781P61/pkl8apd8K85v/DXwldoz3rA6ndH+5md+5S86v/KPnV/h7f Mr/8mZ+4StmCA5R+dX/gwT+RT6ep3oNl1hVat3pev/ 3mk9rfOzBv+hfEc7/T62BzfvA/zbp+yrrOvoT/jtUXo6L+vPEltvE6xq6T9JyICl+LdP+LfPZsgvfHI2 lSi6fcB4n8RyoF7feWXdYU/I8are6fBpBY4ihY+hP+IgUukD7oidRop9gl529iqt0I+muhwF0ws+nr3+ F2av/6Mp+yrbHF+TDewxra55mM049ioSW67YGmQnQ3 XR/7XaXcfH3qpms1GpjrI+KL9xk9B8SQuMs2TBYyoJW56kc3G7fTG1giO9tbqomX8r75W+fkij/EJ+2c 1jeF65B2T5Zi8l9w10awMZe0uB/Gf35Uzr+tklF0upaKeloUp13uGX0jNhoM/8qivtlRY+jTPD0NX3al 9gbuV2mjgse0BTA/sS37X2B/4uZZBNtU97D921434i IH/Lnrk5gh4v/f/OOVG+2WK3d56ns/1F6slkZ9253A0nUERE/tDr7w25C/6tcWKhsbQu37sdbXjyI/Lx hc61L556573S61z98q3HMl9EujEr19zL73Ked6HPxUV/CzNqf3/CvppR+/qR3kGU5qwS9pHSF00YL5CM zih/jOfJ2jeJn2/djInyC+WhDQ1CZYiZYzmCTB/Cue v/lC0Ue2m+7fcollF8/R/NjfHujvyO/RQ7oMnV+512wfuR93Pf+7vx/p56ftpz9vd/u76/6yt/4PXVeB e0F1qO62s62e4o2L8s8L7wY2s9Zy+C/2J3RSw70eX9YxqOxK/Kd2QrkcQZ/V8sio8tYl5iEm+rZfV/tK z06my04pl341o7v0g18d4t/3el/0LuVgSo2HG/3bKJ [file] oQSoJfxnSMSwLOFPSMVKV9U= ID Date Data Source [id number] 01/11/2021 05:27:24 AM EDT [facility] Name Value Range Interpretation Code Description Data Alma rce(s) Supporting Document(s) TROPONIN I <0.05 ng/mL (<0.05) [facility] Less than 0.05: Myocardial injury unlike lyGreater than or equal to 0.05: Highly suggestive of myocardial injuryCorrelation with rise and/or fall ofserial troponins, clinical symptomsand ECG changes is necessary. ID Date Data Source [id number] 01/11/2021 05:27:24 AM EDT [facility] Name Value Range Interpretation Code Description Data Alma rce(s) Supporting Document(s) SODIUM 132 mmol/L (136-145) L [facility] POTASSIUM 4.3 mmol/L (3.6-5.2) [facility] CHLORIDE 99 mmol/L (100-108) L [facility] CO2 25 mmol/L (22-31) [facility] ANION GAP 8 mmol/L (7-16) [facility] UREA NITROGEN 22 mg/dL (7-24) [facility] CREATININE 0.69 mg/dL (0.80-1.30) L [facility] BUN/CREAT RATIO 31.9 RATIO (10.0-20.0) H [facility] GLUCOSE 187 mg/dL (70-99) H [facility] CALCIUM 8.6 mg/dL (8.4-10.2) [facility] GFR >60 ml/min/1.73m2 (>59) [facility] GFR ( AMER) >60 ml/min/1.73m2 (>59) [facility] GFR INTERPRETATION [facility] --NORMAL KIDNEY FUNCTION OR MILD DISEASE - GFR >OR= 60CHRONIC KIDNEY DISEASE - GFR 15 - 59RENAL FAILURE - GFR <15 Est. GFR calculation based on the MDRDstudy equation, which assumes a steadystate for creatinine. Est. GFR should notbe used for medication dosing. ID Date Data Source [id number] 01/11/2021 04:47:31 AM EDT [facility] Name Value Range Interpretation Code Description Data Alma rce(s) Supporting Document(s) WBC 8.0 10*3/uL (4.1-11.0) [facility] [place] RBC 4.81 10*6/uL (4.60-6.10) [facility] HGB 14.2 g/dL (13.5-18.0) [facility] HCT 42.4 % (41.0-53.0) [facility] MCV 88.2 fL (80.0-95.0) [facility] MCH 29.6 pg (27.0-32.0) [facility] MCHC 33.6 g/dL (32.0-36.0) [facility] RDW 14.2 % (10.5-14.5) [facility] PLT 246 10*3/uL (150-450) [facility] MPV 8.0 fL (7.1-10.7) [facility] ID Date Data Source [id number] 01/11/2021 01:00:00 AM EDT [facility] Name Value Range Interpretation Code Description Data Alma rce(s) Supporting Document(s) SARS coronavirus 2 RNA [Presence] in Res piratory specimen by GAVIN with probe detection NOT DETECTED [facility] This lab was reported by [facility]. ID Date Data Source [id number] 01/11/2021 02:32:39 AM EDT [facility] Name Value Range Interpretation Code Description Data Alma rce(s) Supporting Document(s) SPECIMEN DESCRIPTION [facility] INFLUENZA A (NEG) [facility] [place] INFLUENZA B (NEG) [facility] RSV (NEG) [facility] COMMENT [facility] THE [place] FDA HAS MADE THIS TEST AVAILABL CHARMAINEER AN EMERGENCY USE AUTHORIZATION(EUA) FOR THE DETECTION AND/OR DIAGNOSISOF THE VIRUS THAT CAUSES COVID-19.PERFORMED AT [address] [place] [address] COVID19 RESULT (NDET) [facility] THIS ASSAY AMPLIFIES AND DETECTSTHE TARG ET RNA USING REAL-TIME PCR.TESTING PERFORMED ON [place] GENEXPERTNEGATIVE 2019_NCOV RT-PCR RESULTS DONOT PRECLUDE 2019_NCOV INFECTION ANDSHOULD NOT BE USED THE SOLE BASISFOR PATIENT MANAGEMENT DECISIONS. FIRST TEST [facility] EMPL[facility]ED IN HLTHCARE [facility] [place] SYMPTOMATIC [facility] [place] [place] DATE OF SYMPT ONSET [facility] [place] HOSPITALIZED [facility] ICU [facility] [place] CONGREGATE CARE SET [facility] ID Date Data Source [id number] 01/11/2021 02:04:09 AM EDT [facility] Name Value Range Interpretation Code Description Data Alma rce(s) Supporting Document(s) FREE THYROXINE @ 1.00 ng/dL (0.76-1.46) [facility] [place]FORMED [place] [address] [place] [address] ID Date Data Source [id number] 01/11/2021 02:04:09 AM EDT [facility] Name Value Range Interpretation Code Description Data Alma rce(s) Supporting Document(s) TROPONIN I <0.05 ng/mL (<0.05) [facility] Less than 0.05: Myocardial injury unlike lyGreater than or equal to 0.05: Highly suggestive of myocardial injuryCorrelation with rise and/or fall ofserial troponins, clinical symptomsand ECG changes is necessary. ID Date Data Source [id number] 01/11/2021 02:04:09 AM EDT [facility] Name Value Range Interpretation Code Description Data Alma rce(s) Supporting Document(s) NT PRO BNP 198 pg/mL (0-125) H [facility] ID Date Data Source [id number] 01/11/2021 02:04:09 AM EDT [facility] Name Value Range Interpretation Code Description Data Alma rce(s) Supporting Document(s) TSH,ULTRASENSITIVE @ 0.574 mIU/L (0.360-4.170) [facility] PERFORMED AT [address] [place] [address] [place] [address] ID Date Data Source [id number] 01/11/2021 02:04:09 AM EDT [facility] Name Value Range Interpretation Code Description Data Alma rce(s) Supporting Document(s) SODIUM 130 mmol/L (136-145) L [facility] POTASSIUM 4.0 mmol/L (3.6-5.2) [facility] CHLORIDE 99 mmol/L (100-108) L [facility] CO2 25 mmol/L (22-31) [facility] ANION GAP 6 mmol/L (7-16) L [facility] UREA NITROGEN 22 mg/dL (7-24) [facility] CREATININE 0.74 mg/dL (0.80-1.30) L [facility] BUN/CREAT RATIO 29.7 RATIO (10.0-20.0) H [facility] GLUCOSE 196 mg/dL (70-99) H [facility] CALCIUM 8.7 mg/dL (8.4-10.2) [facility] TOTAL PROTEIN 6.8 g/dL (6.4-8.2) [facility] ALBUMIN 3.1 g/dL (3.2-4.5) L [facility] GLOBULIN 3.7 g/dL (2.7-4.3) [facility] ALB/GLOB RATIO 0.8 RATIO [facility] ALKALINE PHOSPHATASE 119 U/L (45-117) H [facility] BILIRUBIN,TOTAL 0.4 mg/dL (0.0-1.0) [facility] PLEASE NOTE:Total bilirubin results may be falselyelevated in patients taking Eltrombopag. AST (SGOT) 7 U/L (11-39) L [facility] ALT (SGPT) 21 U/L (12-78) [facility] GFR >60 ml/min/1.73m2 (>59) [facility] GFR ( AMER) >60 ml/min/1.73m2 (>59) [facility] GFR INTERPRETATION [facility] --NORMAL KIDNEY FUNCTION OR MILD DISEASE - GFR >OR= 60CHRONIC KIDNEY DISEASE - GFR 15 - 59RENAL FAILURE - GFR <15 Est. GFR calculation based on the MDRDstudy equation, which assumes a steadystate for creatinine. Est. GFR should notbe used for medication dosing. ID Date Data Source [id number] 01/11/2021 02:03:29 AM EDT [facility] Name Value Range Interpretation Code Description Data Alma rce(s) Supporting Document(s) HEMOGLOBIN A1C @ 7.5 % (4.0-6.0) H [facility] [place] Performed using Siemens [place] immunoassa y.Care must be taken when interpreting [id number] in patients with a hemoglobin variantor decreased erythrocyte lifespan. Values 5.7 - 6.4% suggest prediabetes.Values >=6.5% are diagnostic for diabetes.REFERENCE: DIABETES CARE 2018: 41(S13-S27).PERFORMED AT [address] [place] [address] EST [place] GLUCOSE 169 mg/dL [facility] ID Date Data Source [id number] 01/11/2021 01:58:09 AM EDT [facility] Name Value Range Interpretation Code Description Data Alma rce(s) Supporting Document(s) MAGNESIUM 1.9 mg/dL (1.7-2.4) [facility] [place] ID Date Data Source [id number] 01/11/2021 01:21:46 AM EDT [facility] Name Value Range Interpretation Code Description Data Alma rce(s) Supporting Document(s) WBC 8.4 10*3/uL (4.1-11.0) [facility] [place] RBC 4.90 10*6/uL (4.60-6.10) [facility] HGB 14.6 g/dL (13.5-18.0) [facility] HCT 42.9 % (41.0-53.0) [facility] MCV 87.6 fL (80.0-95.0) [facility] MCH 29.8 pg (27.0-32.0) [facility] MCHC 34.0 g/dL (32.0-36.0) [facility] RDW 13.9 % (10.5-14.5) [facility] PLT 267 10*3/uL (150-450) [facility] MPV 7.9 fL (7.1-10.7) [facility] NEUT % 78.8 % (35.0-75.0) H [facility] LYMPH % 15.0 % (16.0-52.0) L [facility] MONO % 5.5 % (0.0-8.0) [facility] EOS % 0.2 % (0.0-5.0) [facility] BASO % 0.5 % (0.0-4.0) [facility] NEUT # 6.6 10*3/uL (1.8-7.7) [facility] LYMPH # 1.3 10*3/uL (1.2-4.8) [facility] MONO # 0.5 10*3/uL (0.0-0.8) [facility] Eosinophils [#/volume] in Blood by Automated count 0.0 10*3/uL (0.0-0 .5) [facility] BASO # 0.0 10*3/uL (0.0-0.2) [facility] ID Date Data Source [id number] 01/10/2021 08:13:00 PM EDT [facility] [address] [place] [address] RESPIRATORY CARE REPORT ==== ---------NAME------- NUMBER SEX AGE ADMIT DISC. XRAY# F/C KHARI Forrester [id number] M 75 01/10/21 [id number] M4 I/P DATE OF : 1945 M/R# [id number] PH#: [phone] LOCATION: EMERGENCY DEPT EKG [id number] COMP LETE:01/10/21 06:27 ED [id number] PHYSICIAN: J LUIS MCPHERSON Name Value Range Interpretation Code Description Data Alma rce(s) Supporting Document(s) ID Date Data Source [id number] 01/10/2021 10:09:00 [place] [address] PHONE: [phone] FAX: [phone] Name .................. : HAYLEE Forrester Acct Number.................. : [id number] ROOM. ................. : CCU2 Number ................... : [id number] Stay type ............. : O/P Discharge Date......... ... : Admit Date ......... : 01/08/21 Admit Phys .................... : J LUIS VIDA Date of ....... : 1945 Family Phys ................... : J LUIS VIDA Phone .................. : [phone] Age ................................ : 75 Film# .................. .:[id number] Sex ................................. : M Unsigned transcriptions are preliminary reports and do not represent a medical or legal document KNEE AP & LAT LT [id number] COMPLETE:01/08/21 18:46 ALEJANDRA [id number] Reason(s): Knee Injury LEFT KNEE X-RAY: INDICATION: [...] By Efren Cuellar M.D. , 01/10/21 10:09, FLY Transcribe Initials: CLARK , Transcribe Date: 01/09/21 03:03, Dictation Date: Copy for: [address] [facility] Copy for: [address] [facility] REC Page 1 of 1 Name Value Range Interpretation Code Description Data Alma rce(s) Supporting Document(s) ID Date Data Source [id number] 01/10/2021 10:09:00 [place] [address] PHONE: [phone] FAX: [phone] Name .................. : HAYLEE Forrester Acct Number.................. : [id number] ROOM. ................. : CCU2 MR Number ................... : [id number] Stay type ............. : O/P Discharge Date......... ... : Admit Date ......... : 01/08/21 Admit Phys .................... : J LUIS VIDA Date of ....... : 1945 Family Phys ................... : J LUIS VIDA Phone .................. : [phone] Age ................................ : 75 Film# .................. .:[id number] Sex ................................. : M Unsigned transcriptions are preliminary reports and do not represent a medical or legal document CHEST PORTABLE [id number] COMPLETE:01/08/21 18:46 ALEJANDRA [id number] Reason(s): syncope PORTABLE CHEST X-RAY: INDICATION: Syncope. FINDINGS: The lungs are well-expanded with mild pulmonary vascular congestion. The cardiac silhouette is normal in size and contour. No acute osseous abnormality. IMPRESSION: Mild pulmonary vascular congestion. Electronically Reviewed and Signed By Efren Cuellar M.D. , 01/10/21 10:09, FLY Transcribe Initials: CLARK , Transcribe Date: 01/09/21 03:01, Dictation Date: Copy for: [facility] Copy for: [address] [facility] REC Page 1 of 1 Name Value Range Interpretation Code Description Data Alma rce(s) Supporting Document(s) ID Date Data Source [id number] 01/10/2021 10:07:00 AM EDT [facility] [address] [place] [address] PHONE: [phone] FAX: [phone] Name .................. : HAYLEE Forrester Acct Number.................. : [id number] ROOM. ................. : CCU2 Number ................... : [id number] Stay type ............. : O/P Discharge Date......... ... : Admit Date ......... : 01/08/21 Admit Phys .................... : J LUIS VIDA Date of ....... : 1945 Family Phys ................... : J LUIS VIDA Phone .................. : [phone] Age ................................ : 75 Film# .................. .:[id number] Sex ................................. : M Unsigned transcriptions are preliminary reports and do not represent a medical or legal document CT HEAD W/O CONTRAST [id number] COMPLETE:01/08/21 19:30 TAYO 24187 Reason(s): Syncope CT OF THE HEAD WITHOUT [...] By Efren Cuellar M.D. , 01/10/21 10:07, FLY Transcribe Initials: CLARK , Transcribe Date: 01/08/21 23:32, Dictation Date: Copy for: 002 [facility] Copy for: [address] [facility] REC Page 1 of 1 Name Value Range Interpretation Code Description Data Alma rce(s) Supporting Document(s) ID Date Data Source [id number] 01/10/2021 09:58:00 [place] [address] PHONE: [phone] FAX: [phone] Name .................. : HAYLEE Forrester Acct Number.................. : [id number] ROOM. ................. : 101-1 MR Number ................... : [id number] Stay type ............. : O/P Discharge Date......... ... : Admit Date ......... : 01/08/21 Admit Phys .................... : J LUIS VIDA Date of ....... : 1945 Family Phys ................... : J LUIS VIDA Phone .................. : [phone] Age ................................ : 75 Film# .................. .:[id number] Sex ................................. : M Unsigned transcriptions are preliminary reports and do not represent a medical or legal document CAROTID [id number] COMPLETE:01/09/21 16:07 [facility] 39205 Reason for Exam: TIA CAROTID DOPPLER, 01/09/21: [...] of hemodynamically significant stenosis. Page [address] [place] [address] [place] [address] PHONE: [phone] FAX: [phone] Name .................. : HAYLEE Forrester Acct Number.................. : [id number] ROOM. ................. : 101-1 MR Number ................... : [id number] Stay type ............. : O/P Discharge Date......... ... : Admit Date ......... : 01/08/21 Admit Phys .................... : J LUIS VIDA Date of ....... : 1945 Family Phys ................... : J LUIS VIDA Phone .................. : [phone] Age ................................ : 75 Film# .................. .:[id number] Sex ................................. : M Unsigned transcriptions are preliminary reports and do not represent a medical or legal document US CAROTID [id number] COMPLETE:01/09/21 16:07 KNB 24607 Reason for Exam: TIA Electronically Reviewed and Signed By Richie Coe MD , 01/10/21 09:58, AML Transcribe Initials: SSR, Transcribe Date: 01/10/21 09:24, Dictation Date: Copy for: 002 [facility] Copy for: 710 MED REC Page 2 of 2 Name Value Range Interpretation Code Description Data Alma rce(s) Supporting Document(s) ID Date Data Source [id number] 01/10/2021 09:52:00 [place] [address] PHONE: [phone] FAX: [phone] Name .................. : HAYLEE Forrester Acct Number.................. : [id number] ROOM. ................. : CCU2 MR Number ................... : [id number] Stay type ............. : O/P Discharge Date......... ... : Admit Date ......... : 01/08/21 Admit Phys .................... : J LUIS VIDA Date of ....... : 1945 Family Phys ................... : J LUIS VIDA Phone .................. : [phone] Age ................................ : 75 Film# .................. .:[id number] Sex ................................. : M Unsigned transcriptions are preliminary reports and do not represent a medical or legal document CT LOWER EXT LT W/O CONT [id number] COMPLETE:01/09/21 16:24 ALEJANDRA 79460 Reason for Exam: LEFT KNEE FOR EFFUSION [...] Date: Copy for: J LUIS LUBIN via Collectric Copy for: EMERGENCY DEPT via modem Page 1 of 2 [facility] [address] [facility] [place] [address] PHONE: [phone] FAX: [phone] Name .................. : HAYLEE Forrester Acct Number.................. : [id number] ROOM. .......... ....... : CCU2 MR Number ................... : [id number] Stay type ............. : O/P Discharge Date......... ... : Admit Date ......... : 01/08/21 Admit Phys .................... : J LUIS VIDA Date of ....... : 1945 Family Phys ................... : J LUIS VIDA Phone .................. : [phone] Age ................................ : 75 Film# .................. .:[id number] Sex ................................. : M Unsigned transcriptions are preliminary reports and do not represent a medical or legal document CT LOWER EXT LT W/O CONT 73500 COMPLETE:01/09/21 16:24 ALEJANDRA [id number] Reason for Exam: LEFT KNEE FOR EFFUSION NO CONTRAST Copy for: 710 MED REC Page 2 of 2 Name Value Range Interpretation Code Description Data Alma rce(s) Supporting Document(s) ID Date Data Source [id number] 01/10/2021 06:48:00 AM EDT [facility] Name Value Range Interpretation Code Description Data Alma rce(s) Supporting Document(s) COMPREHENSIVE METABOLIC PANEL [facility] COMPREHENSIVE METABOLIC PANEL Sodium [Moles/volume] in Serum or Plasma 131 mEq/L 134 - 153 L [facility] Potassium [Moles/volume] in Serum or Plasma 4.2 mEq/L 3.6 - 5.0 [facility] Chloride [Moles/volume] in Serum or Plasma 97 mEq/L 98 - 107 L [facility] Carbon dioxide, total [Moles/volume] in Serum or Plasma 25 MEQ/L 22 - 30 [facility] Glucose [Mass/volume] in Serum or Plasma 165 MG/DL 70 - 99 H [facility] BUN 24 MG/DL 7 - 21 H [facility] al Creatinine [Mass/volume] in Serum or Plasma 0.7 MG/DL 0.7 - 1.5 [facility] BUN/CREAT 34 8 - [address] [facility] Protein [Mass/volume] in Serum or Plasma 5.8 G/DL 6.3 - 8.2 L [facility] Albumin [Mass/volume] in Serum or Plasma 3.6 G/DL 3.9 - 5.0 L [facility] Globulin [Mass/volume] in Serum by calculation 2.2 GM/DL 2.4 - 3.2 L [facility] A/G RATIO 1.6 0.8 - 2.0 [facility] Calcium [Mass/volume] in Serum or Plasma 9.1 MG/DL 8.4 - 10.2 [facility] Bilirubin.total [Mass/volume] in Serum or Plasma <0.7 MG/DL 0.2 - 1.3 [facility] Alkaline phosphatase [Enzymatic activity/volume] in Serum or Plasma 113 U/L 38 - 126 [facility] Aspartate aminotransferase [Enzymatic activity/volume] in Serum or Plasma 13 U/L 5 - 40 [facility] Alanine aminotransferase [Enzymatic activity/volume] in Seru m or Plasma 15 U/L 7 - 56 [facility] Anion gap 3 in Serum or Plasma 9.0 mmol/L 8.0 - 16.0 [facility] 75 [facility] >60 mL/min [facility] ital AFR AMER GFR >60 mL/min [facility] spital Male GFR In terprentation 20-49 [...] >32 mL/min Normal ID Date Data Source [id number] 01/10/2021 06:48:00 AM EDT [facility] Name Value Range Interpretation Code Description Data Alma rce(s) Supporting Document(s) CBC W/AUTOMATED DIFF [facility] COMPLETE BLOOD COUNT Leukocytes [#/volume] in Blood by Automated count 7.7 10^3/uL 4.2 - 1 1.0 [facility] Erythrocytes [#/volume] in Blood by Automated count 4.76 10^6/uL 4. 50 - 6.30 [facility] Hemoglobin [Mass/volume] in Blood 14.1 g/dL 14.0 - 16.0 [facility] Hematocrit [Volume Fraction] of Blood by Automated count 41.0 % 4 1.0 - 51.0 [facility] Erythrocyte mean corpuscular volume [Entitic volume] by Auto mated count 86.1 fL 80.0 - 94.0 [facility] Erythrocyte mean corpuscular hemoglobin [Entitic mass] by Automated count 29.6 pg 27.0 - 34.0 [facility] Erythrocyte mean corpuscular hemoglobin concentration [Mass/volume] by Automated count 34.4 g/dL 31.0 - 36.0 [facility] Erythrocyte distribution width [Ratio] by Automated count 13.2 % 11.5 - 14.8 [facility] Platelets [#/volume] in Blood by Automated count 265 10^3/uL 150 - 45 0 [facility] Platelet mean volume [Entitic volume] in Blood by Automated count 9.5 fL 7.4 - 10.4 [facility] Neutrophils/100 leukocytes in Blood by Automated count 55.8 % 37. 0 - 80.0 [facility] Lymphocytes/100 leukocytes in Blood by Manual count 32.2 % 25.0 - 40.0 [facility] Monocytes/100 leukocytes in Blood by Automated count 8.9 % 3.0 - 8.0 H [facility] Eosinophils/100 leukocytes in Blood by Automated count 2.4 % 0.0 - 7.0 [facility] Basophils/100 leukocytes in Blood by Automated count 0.4 % 0.0 - 2.0 [facility] %IG 0.3 % 0.0 - 0.0 H [facility] %NRBC 0.0 % 0.0 - 0.0 [facility] al Neutrophils [#/volume] in Blood by Automated count 4.28 10^3/uL 2.00 - 6.90 [facility] Lymphocytes [#/volume] in Blood by Automated count 2.46 10^3/uL 0.60 - 3.40 [facility] Monocytes [#/volume] in Blood by Automated count 0.68 10^3/uL 0.00 - 0.90 [facility] Eosinophils [#/volume] in Blood by Automated count 0.18 10^3/uL 0.00 - 0.70 [facility] Basophils [#/volume] in Blood by Automated count 0.03 10^3/uL 0.00 - 0.20 [facility] #IG 0.02 10^3/uL 0.00 - 0.10 [facility] #NRBC 0.00 10^3/uL 0.00 - 0.00 [facility] MANUAL DIFF NOT INDICATED [facility] RBC MORPH NOT INDICATED [facility] ID Date Data Source [id number] 01/12/2021 07:01:00 AM EDT [facility] Name Value Range Interpretation Code Description Data Alma rce(s) Supporting Document(s) Osmolality of Serum or Plasma 282 mOsmol/kg 280-301 [facility] ID Date Data Source [id number] 01/11/2021 08:11:00 AM EDT [facility] Name Value Range Interpretation Code Description Data Alma rce(s) Supporting Document(s) Cortisol [Mass/volume] in Serum or Plasma 13.7 ug/dL [facility] C ortisol AM 6.2 - 19.4 Cortisol PM 2.3 - 11.9 ID Date Data Source [id number] 01/10/2021 12:41:00 PM EDT [facility] Name Value Range Interpretation Code Description Data Alma rce(s) Supporting Document(s) Fibrin D-dimer FEU [Mass/volume] in Platelet poor plasma 0.27 ug /mL 0.27 - 0.50 [facility] ID Date Data Source [id number] 01/10/2021 12:01:00 PM EDT [facility] Value Range Interpretation Code Description Data Alma rce(s) Supporting Document(s) Thyroxine (T4) free index in Serum or Plasma by calculation 1.14 NG/DL 0.93 - 1.70 [facility] ID Date Data Source [id number] 01/10/2021 12:01:00 PM EDT [facility] Name Value Range Interpretation Code Description Data Alma rce(s) Supporting Document(s) Thyrotropin [Units/volume] in Serum or Plasma by Detec tion limit <= 0.05 mIU/L 2.13 uIU/mL 0.47 - 5.01 [facility] ID Date Data Source [id number] 01/09/2021 08:38:00 [place] [address] RESPIRATORY CARE REPORT ==== ---------NAME------- NUMBER SEX AGE ADMIT DISC. XRAY# F/C KHARI Forrester [id number] M 75 01/08/21 [id number] MB4 O/P DATE OF : 1945 M/R# [id number] PH#: [phone] CCU2 LOCATION: EMERGENCY DEPT [facility]LY [facility] [address] COMPL ETE:01/09/21 00:36 AJP [id number] PHYSICIAN: J LUIS HERRERA [facility] Name Value Range Interpretation Code Description Data Alma rce(s) Supporting Document(s) ID Date Data Source [id number] 01/09/2021 12:00:00 PM EDT [facility] Name Value Range Interpretation Code Description Data Alma rce(s) Supporting Document(s) Prostate specific Ag [Mass/volume] in Serum or Plasma 0.02 ng/mL 0.00 - 4.00 [facility] \\BLDo\\PSA INTERPRETA TION\\BLDx\\ The PSA assay should not be used alone for a screening test or diagnosis for presence or absence of malignant disease. Predictions of disease recurrence should not be based solely on values obtained from serial patient serum values. The PSA result was determined by "[employer]", on the [employer] ARCHIE 6000. Values obtained with different assay methods or kits cannot be used interchangeably. ID Date Data Source [id number] 01/09/2021 10:37:00 AM EDT [facility] Name Value Range Interpretation Code Description Data Alma rce(s) Supporting Document(s) C reactive protein [Mass/volume] in Serum or Plasma by High sensitivity method 31.35 MG/L 1.00 - 3.00 H [facility] CDC/S HS-CRP CUT-OFF: RELATIVE RISK: <1.0 mg/L Low 1.0 - 3.0 mg/L Average >3.0 mg/L High Optimally, the average of HS-CRP results repeated two weeks apart should be used for risk assessment. ID Date Data Source [id number] 01/09/2021 07:47:00 AM EDT [facility] Name Value Range Interpretation Code Description Data Alma rce(s) Supporting Document(s) BNP 174 PG/ML 0 - 125 H [facility] ID Date Data Source [id number] [facility] Interpretation Code Description Data Alma rce(s) Supporting Document(s) Cobalamin (Vitamin B12) [Mass/volume] in Serum or Plasma 370 PG/ML 232 - 1245 [facility] ID Date Data Source [id number] 01/09/2021 07:43:00 AM EDT [facility] Name Value Range Interpretation Code Description Data Alma rce(s) Supporting Document(s) CVE PANEL [facility] al LIPID PANEL Cholesterol [Mass/volume] in Serum or Plasma 276 MG/DL 131 - 200 H [facility] Deprecated Triglyceride [Mass/volume] in Serum or Plasma 108 MG/DL 3 5 - 160 [facility] HDL 67 MG/DL 29 - 86 [facility] al Cholesterol in LDL [Mass/volume] in Serum or Plasma by Direc t assay 203 mg/dL 65 - 175 H [facility] Cholesterol.total/Cholesterol in HDL [Mass Ratio] in Serum o r Plasma 4.1 3.4 - 4.9 [facility] LDL/HDL 3.03 1.00 - 3.55 [facility] ital CVE RISK CHOL/HDL LDL/HDLMEN: 1/2 AVERAGE 3.43 1.00 AVERAGE 4.97 3.55 2X AVERAGE 9.55 6.25 3X AVERAGE 23.99 7.99WOMEN: 1/2 AVERAGE 3.27 1.47 AVERAGE 4.44 3.22 2X AVERAGE 7.05 5.03 3X AVERAGE 11.04 6.14 ID Date Data Source [id number] 01/09/2021 07:43:00 AM EDT [facility] Name Value Range Interpretation Code Description Data Alma rce(s) Supporting Document(s) Iron [Mass/volume] in Serum or Plasma 41 UG/DL 42 - 135 L [facility] ID Date Data Source [id number] 01/09/2021 07:43:00 AM EDT [facility] Name Value Range Interpretation Code Description Data Alma rce(s) Supporting Document(s) COMPREHENSIVE METABOLIC PANEL [facility] COMPREHENSIVE METABOLIC PANEL Sodium [Moles/volume] in Serum or Plasma 127 mEq/L 134 - 153 L [facility] Potassium [Moles/volume] in Serum or Plasma 4.5 mEq/L 3.6 - 5.0 [facility] Chloride [Moles/volume] in Serum or Plasma 94 mEq/L 98 - 107 L [facility] Carbon dioxide, total [Moles/volume] in Serum or Plasma 22 MEQ/L 22 - 30 [facility] Glucose [Mass/volume] in Serum or Plasma 334 MG/DL 70 - 99 H [facility] BUN 21 MG/DL 7 - 21 [facility] Creatinine [Mass/volume] in Serum or Plasma 0.5 MG/DL 0.7 - 1.5 L [facility] BUN/CREAT 42 8 - [address] [facility] Protein [Mass/volume] in Serum or Plasma 6.6 G/DL 6.3 - 8.2 [facility] Albumin [Mass/volume] in Serum or Plasma 4.0 G/DL 3.9 - 5.0 [facility] Globulin [Mass/volume] in Serum by calculation 2.6 GM/DL 2.4 - 3.2 [facility] A/G RATIO 1.5 0.8 - 2.0 [facility] Calcium [Mass/volume] in Serum or Plasma 9.4 MG/DL 8.4 - 10.2 [facility] Bilirubin.total [Mass/volume] in Serum or Plasma <0.7 MG/DL 0.2 - 1.3 [facility] Alkaline phosphatase [Enzymatic activity/volume] in Serum or Plasma 135 U/L 38 - 126 H [facility] Aspartate aminotransferase [Enzymatic activity/volume] in Serum or Plasma 25 U/L 5 - 40 [facility] Alanine aminotransferase [Enzymatic activity/volume] in Seru m or Plasma 19 U/L 7 - 56 [facility] Anion gap 3 in Serum or Plasma 11.0 mmol/L 8.0 - 16.0 [facility] AGE [address] [facility] NON-AA GFR >60 mL/min [facility] ital AFR AMER GFR >60 mL/min [facility] Male GFR In terprentation 20-49 [...] >32 mL/min Normal ID Date Data Source [id number] 01/09/2021 07:37:00 AM T [facility] Name Value Range Interpretation Code Description Data Alma rce(s) Supporting Document(s) Hemoglobin A1c/Hemoglobin.total in Blood 7.9 % 4.4 - 6.1 H [facility] {A1]{HB] ID Date Data Source [id number] 01/09/2021 06:48:00 AM EDT [facility] Name Value Range Interpretation Code Description Data Alma rce(s) Supporting Document(s) CBC W/AUTOMATED DIFF [facility] COMPLETE BLOOD COUNT Leukocytes [#/volume] in Blood by Automated count 4.2 10^3/uL 4.2 - 1 1.0 [facility] Erythrocytes [#/volume] in Blood by Automated count 5.04 10^6/uL 4. 50 - 6.30 [facility] Hemoglobin [Mass/volume] in Blood 15.0 g/dL 14.0 - 16.0 [facility] Hematocrit [Volume Fraction] of Blood by Automated count 42.7 % 4 1.0 - 51.0 [facility] Erythrocyte mean corpuscular volume [Entitic volume] by Auto mated count 84.7 fL 80.0 - 94.0 [facility] Erythrocyte mean corpuscular hemoglobin [Entitic mass] by Automated count 29.8 pg 27.0 - 34.0 [facility] Erythrocyte mean corpuscular hemoglobin concentration [Mass/volume] by Automated count 35.1 g/dL 31.0 - 36.0 [facility] Erythrocyte distribution width [Ratio] by Automated count 13.1 % 11.5 - 14.8 [facility] Platelets [#/volume] in Blood by Automated count 275 10^3/uL 150 - 45 0 [facility] Platelet mean volume [Entitic volume] in Blood by Automated count 9.8 fL 7.4 - 10.4 [facility] Neutrophils/100 leukocytes in Blood by Automated count 81.5 % 37. 0 - 80.0 H [facility] Lymphocytes/100 leukocytes in Blood by Manual count 15.7 % 25.0 - 40.0 L [facility] Monocytes/100 leukocytes in Blood by Automated count 1.9 % 3.0 - 8.0 L [facility] Eosinophils/100 leukocytes in Blood by Automated count 0.2 % 0.0 - 7.0 [facility] Basophils/100 leukocytes in Blood by Automated count 0.2 % 0.0 - 2.0 [facility] %IG 0.5 % 0.0 - 0.0 H [facility] %NRBC 0.0 % 0.0 - 0.0 [facility] al Neutrophils [#/volume] in Blood by Automated count 3.42 10^3/uL 2.00 - 6.90 [facility] Lymphocytes [#/volume] in Blood by Automated count 0.66 10^3/uL 0.60 - 3.40 [facility] Monocytes [#/volume] in Blood by Automated count 0.08 10^3/uL 0.00 - 0.90 [facility] Eosinophils [#/volume] in Blood by Automated count 0.01 10^3/uL 0.00 - 0.70 [facility] Basophils [#/volume] in Blood by Automated count 0.01 10^3/uL 0.00 - 0.20 [facility] #IG 0.02 10^3/uL 0.00 - 0.10 [facility] #NRBC 0.00 10^3/uL 0.00 - 0.00 [facility] MANUAL DIFF NOT INDICATED [facility] RBC MORPH NOT INDICATED [facility] ID Date Data Source [id number] 01/09/2021 06:48:00 AM EDT [facility] Name Value Range Interpretation Code Description Data Alma rce(s) Supporting Document(s) Fibrin D-dimer FEU [Mass/volume] in Platelet poor plasma 0.65 ug /mL 0.27 - 0.50 H [facility] ID Date Data Source [id number] 01/09/2021 06:48:00 AM EDT [facility] Name Value Range Interpretation Code Description Data Alma rce(s) Supporting Document(s) Lactate [Moles/volume] in Serum or Plasma 2.1 MMOL/L 0.2 - 2.2 [facility] ID Date Data Source [id number] 01/11/2021 06:43:00 AM EDT [facility] Name Value Range Interpretation Code Description Data Alma rce(s) Supporting Document(s) Protein Fractions [Interpretation] in Serum or Plasma by Imm unofixation COMMENT [facility] The immunofixation pattern appears unrem arkable. Evidence ofmonoclonal protein is not apparent. IgG [Mass/volume] in Serum or Plasma 720 mg/dL 603-1613 [facility] IgA [Mass/volume] in Serum or Plasma 111 mg/dL 61-437 [facility] IgM [Mass/volume] in Serum or Plasma 88 mg/dL 15-143 [facility] ID Date Data Source [id number] 01/08/2021 05:42:00 PM EDT [facility] 1 OrderSheet [facility] Emergency Department [address] [place] [address] Phone #: [phone]- [phone] 01/08/2021 17:42 Patient: MAGDY LEACH Sex: M : 1945 Age: 75yWEIGHT:107.9 kg (S) HEIGHT:72 inches (E) BMI:32.3ALLERGIES: Morphine and RelatedCHIEF COMPLAINT: syncope, [id number]: Syncope, Diabetes mellitus, Hyponatremia, Injury of knee, [...] 18:11 01/08/2021 18:18 BurnhamCatch) Rosa Maria Herrera physician ophthalmologistLawrence Hernandez M.D.; [id number] STAT 18:11 01/08/2021 18:13 Rosa Maria Ngo RN, M.D.;COVID-19 CAH (Not STAT 18:21 01/08/2021 18:36 PeterSymptomatic as Roas Maria Herrera RNDefined by [facility]) Shira;(01/08/2021) (Not 2 OrderSheet [facility] Emergency Department [address] [place] [address] Phone #: ext- [phone] 01/08/2021 17:42 Patient: [...] Ack'd: 18:28 18:36 Terence(Oxygen?(No)) Rosa Maria Herrera Virgil physician ophthalmologistWesly RN, M.D.; Lawrence SKYLER Tech1 Reason for Study: SyncopeMEDICATION/IV/DRIP/FLUID ORDERSOrder Description Priority Entered Acknowledged InitialedNS IV : 125 mL/hr 18:21 01/08/2021 18:30 Rosa Maria Ngo RN, M.D.;Ofirmev IV 1000 mg 18:21 01/08/2021 18:31 Terence(NOW x1, Infuse Rosa Maria Herrera RNover 15 minutes) Shira;GENERAL ORDERSOrder Description Priority Entered Acknowledged InitialedBlood Pressure 18:11 01/08/2021 18:13 Janethitor Rosa Maria Herrera RN, M.D.;[employer] 18:11 01/08/2021 18:13 Terence(continuous) Rosa Maria Herrera RN, M.D.;EKG 18:11 01/08/2021 18:13 Terence 3 OrderSheet [facility] Emergency Department [address] [place] [address] Phone #: ext- [phone] 01/08/2021 17:42 Patient: MAGDY LEACH Sex: M [...] rce(s) Supporting Document(s) ID Date Data Source [id number] 01/08/2021 05:42:00 PM EDT [facility] 1 Medication Reconciliation Report [facility] Emergency Department [address] [place] [address] Phone #: ext- [phone] 01/08/2021 17:42 [id number] Sex: M : 1945 Age: 75yWeight: 107.9 [...] rce(s) Supporting Document(s) ID Date Data Source [id number] 01/08/2021 05:42:00 PM EDT [place] [address] Medication Administration Record [facility] Emergency Department [address] [place] [address] Phone #: ext- [phone] 01/08/2021 17:42 Patient: MAGDY LEACH Sex: M : 1945 Age: 75yWeight: 107.9 kgHeight/Length: 72 inBMI: 32.3ALLERGIES: Morphine and Related Date/Time Medication Administered Medication OrderedStart NS [IV] NS IV : 125 mL/hr18:30 01/08/2021 Dose: IV FluidsPeStein RN Rate: 125 mL/hr over 4 hour(s)---- Dispensed: 500 mL bagStop Site: #1 right [id number] 1PALLIE Langfordtart ofirmev * Ofirmev IV 1000 mg (NOW x1,18:31 01/08/2021 Dose: 1000 mg * Drip IV Infuse over 15 minutes)Terence Jarrell RN----Stop18:48 01/08/2021beulah Jarrell RN Name Value Range Interpretation Code Description Data Alma rce(s) Supporting Document(s) ID Date Data Source [id number] 01/08/2021 05:42:00 PM EDT [facility] 1 General Instructions [facility] Emergency Department [address] [place] [address] Phone #: ext- [phone] 01/08/2021 17:42 Patient: MAGDY LEACH Sex: M : 1945 Age: 75yVasovagal syncope of unknown cause.Chronic generalized weakness.Chronic, poorly controlled type 2 diabetes with hyperglycemia.Mild hyponatremia.Left knee effusion.Deconditioning.(Electronically signed by Rosa Maria Herrera M.D. 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 See [...] disease exposure. 2 Clinical Report - Nurses [facility] Emergency Department [address] [place] [address] Phone #: ali- [phone] 01/08/2021 17:42 Patient: MAGDY LEACH Sex: M [...] monitor and pulse oximeter placed on patient; quality assurance monitor body- Lead II; monitoralarms on. Patient gowned. Head of bed elevated. Reassurance given. Call light placed in reach.Side rails up x 2. Bed placed in lowest position. Brakes of bed on. Patient ready for evaluation- EDphysician notified. --18:01/08/21 Terence Jarrell RN 3 Clinical Report - Nurses [facility] Emergency Department [address] [place] [address] Phone #: ext- [phone] 01/08/2021 17:42 Patient: MAGDY LEACH Sex: M [...] --18:30 01/08/21 Terence Jarrell RN 18:31 01/08/2021 [facility] * Drip IV 1000 mg [...] --18:37 01/08/21 Terence Jarrell RN 18:48 [facility]/08/2021 [facility] Discontinued: infused. Total amount infused: [...] Jarrell RN. 4 Clinical Report - Nurses [facility] Emergency Department [address] [place] [address] Phone #: ext- [phone] 01/08/2021 17:42 [id number] Sex: M : 1945 Age: 75yLocked/Released at 01/08/2021 21:08 by Terence Jarrell RN Name Value Range Interpretation Code Description Data Alma rce(s) Supporting Document(s) ID Date Data Source [id number] 01/08/2021 05:42:00 PM EDT [facility] 1 Clinical Report - Physicians/Mid Levels [facility] Emergency Department [address] [place] [address] Phone #: ext- [phone] 01/08/2021 17:42 [id number] Sex: M : 1945 Age: 75y Time [...] few months ago; pt was admitted at [facility] in then transferred to [facility] for rehab x 30 days; pt [...] Surgery. 2 Clinical Report - Physicians/Mid Levels [facility] Emergency Department [address] [place] [address] Phone #: ext- [phone] 01/08/2021 17:42 Patient: MAGDY LEACH Sex: M [...] atrioventricular block. RBBB. Left axis deviation. oldinferior MN. EKG unchanged when compared with prior EKG. [...] 19:04 3 Clinical Report - Physicians/Mid Levels [facility] Emergency Department [address] [place] [address] Phone #: ext- [phone] 01/08/2021 17:42 Patient: MAGDY LEACH Sex: M [...] Head W/O Cont: (MAIKOL: 01/08/2021 18:26) ( [facility]/08[facility] 19:30) In ProgressCT HEAD W/O CONTRASTReason(s): SyncopeTRANSPORTATION: S IV? O2? Oxygen?(No) Room: [place] [address] CAH: (MAIKOL: 01/08/2021 18:30) ( [facility] 01/08/2021 19:02) Final results Test Result Flag [...] CLEARED MOLECULAR TESTS. NEGATIVE RESULTSDO NOT PRECLUDE [id number] AND SHOULD NOT BE USED THE SOLE BASISFOR PATIENT MANAGEMENT DECISIONS.CBC w Diff: (MAIKOL: 01/08/2021 18:20) ( [facility] 01/08/2021 18:38) Final results Test Result Flag [...] INDICATED 4 Clinical Report - Physicians/Mid Levels [facility] Emergency Department [address] [place] [address] Phone #: ext- [phone] 01/08/2021 17:42 Patient: [...] Male GFR Interprentation 20-49 yrs >60 mL/min Znwnlw50-91 yrs >56 mL/min Normal 60-69 yrs >49 mL/min Normal 70-79yrs>42 mL/min Normal 80 and above >35 mL/min Normal Female GFRInterpretation 20-39 yrs >60 mL/min Normal 40-49 yrs >58 mL/minNormal 50-59 yrs >51 mL/min Normal 60-69 yrs >45 mL/min Rqddhd52-65 yrs >39 mL/min Normal 80 and above [...] VenousThrombosis, Pulmonary Embolus, Tissue heart valves, Acute MN Atrial Fibrillation, Valvular heart diseaseand recurrent Systemic Embolism. -International Normalized Ratio (INR): 2.5 - 3.5 forMechanical Prosthetic valve.Troponin-T: (MAIKOL: 01/08/2021 18:20) ( [facility] 01/08[facility] 18:53) Final results Test Result Flag Units (Reference) TROPONIN T <0.01 NG/ML (0.00 - 0.10) TROPONIN T0.1 ng/ml Recommended as the clinical threshold value forTroponin T.CPK: (MAIKOL: 01/08/2021 18:20) ( [facility] 01/08/2021 19:13) Final results 5 Clinical Report - Physicians/Mid Levels [facility] Emergency Department [address] [place] [address] Phone #: ext- [phone] 01/08/2021 17:42 Patient: MAGDY LEACH Sex: M : 1945 Age: 75y Test Result Flag Units (Reference) CPK 135 U/L (30 - 170) BNP: (MAIKOL: 01/08/2021 18:20) ( [facility] 01/08/2021 19:14) Final results Test Result Flag Units (Reference) BNP 111 PG/ML (0 - 125) Chest Portable 1 View: (MAIKOL: 01/08/2021 18:11) ( [facility] 01/08/[facility]21 18:46) In Progress CHEST PORTABLE Reason(s): syncope TRANSPORTATION: P IV? O2? Oxygen?(No) Room: ED Knee AP And LAT Left: (MAIKOL: 01/08/2021 18:11) ( [facility] 01/08/2021 18:46) In Progress KNEE AP Reason(s): Knee Injury TRANSPORTATION: S IV? O2? Oxygen?(No) Room: ED Urinalysis: (MAIKOL: 01/08/2021 18:20) ( [facility] 01/08/2021 19:04) Final results Test Result Flag [...] Not Indicate TSH: (MAIKOL: 01/08/2021 18:20) ( [facility] 01/08/2021 19:14) Final results Test Result Flag [...] care- 6 Clinical Report - Physicians/Mid Levels [facility] Emergency Department [address] [place] [address] Phone #: ext- [phone] 01/08/2021 17:42 [id number] Sex: M : 1945 Age: 75y see [...] rce(s) Supporting Document(s) ID Date Data Source [id number] 01/08/2021 06:30:00 PM EDT [facility] Name Value Range Interpretation Code Description Data [facility] Document(s) COVID19 Case rprt NOT DETECTED [facility] This lab was ordered by [facility] LYLA KEVIN and reported by [facility]. ID Date Data Source [id number] 01/08/2021 07:00:00 PM EDT [facility] NOT DETECTEDNOT DETECTED{ PROC EDURAL CONTROL VALID [...] rce(s) Supporting Document(s) ID Date Data Source [id number] 01/08/2021 07:16:00 PM EDT [facility] Name Value Range Interpretation Code Description Data [facility](s) Supporting Document(s) COMPREHENSIVE METABOLIC PANEL [facility] COMPREHENSIVE METABOLIC PANEL Sodium [Moles/volume] in Serum or Plasma 132 mEq/L 134 - 153 L [facility] Potassium [Moles/volume] in Serum or Plasma 3.8 mEq/L 3.6 - 5.0 [facility] Chloride [Moles/volume] in Serum or Plasma 94 mEq/L 98 - 107 L [facility] Carbon dioxide, total [Moles/volume] in Serum or Plasma 25 MEQ/L 22 - 30 [facility] Glucose [Mass/volume] in Serum or Plasma 253 MG/DL 70 - 99 H [facility] BUN 25 MG/DL 7 - 21 H [facility] al Creatinine [Mass/volume] in Serum or Plasma 0.8 MG/DL 0.7 - 1.5 [facility] BUN/CREAT 31 8 - 27 H [facility] al Protein [Mass/volume] in Serum or Plasma 6.4 G/DL 6.3 - 8.2 [facility] Albumin [Mass/volume] in Serum or Plasma 4.1 G/DL 3.9 - 5.0 [facility] Globulin [Mass/volume] in Serum by calculation 2.3 GM/DL 2.4 - 3.2 L [facility] A/G RATIO 1.8 0.8 - 2.0 [facility] Calcium [Mass/volume] in Serum or Plasma 9.4 MG/DL 8.4 - 10.2 [facility] Bilirubin.total [Mass/volume] in Serum or Plasma <0.7 MG/DL 0.2 - 1.3 [facility] Alkaline phosphatase [Enzymatic activity/volume] in Serum or Plasma 137 U/L 38 - 126 H [facility] Aspartate aminotransferase [Enzymatic activity/volume] in Serum or Plasma 15 U/L 5 - 40 [facility] Alanine aminotransferase [Enzymatic activity/volume] in Seru m or Plasma 15 U/L 7 - 56 [facility] Anion gap 3 in Serum or Plasma 13.0 mmol/L 8.0 - 16.0 [facility]GE 75 [facility] >60 mL/min [facility] ital AFR AMER GFR >60 mL/min [facility] Ho spital Male GFR In terprentation 20-49 [...] >32 mL/min Normal ID Date Data Source [id number] 01/08/2021 07:14:00 PM EDT [facility] Name Value Range Interpretation Code Description Data Alma rce(s) Supporting Document(s) Thyrotropin [Units/volume] in Serum or Plasma by Detec tion limit <= 0.05 mIU/L 1.56 uIU/mL 0.47 - 5.01 [facility] ID Date Data Source [id number] 01/08/2021 07:13:00 PM EDT [facility] Name Value Range Interpretation Code Description Data Alma rce(s) Supporting Document(s) BNP 111 PG/ML 0 - 125 [facility] al ID Date Data Source [id number] 01/08/2021 07:13:00 PM EDT [facility] Name Value Range Interpretation Code Description Data Alma rce(s) Supporting Document(s) Creatine kinase [Enzymatic activity/volume] in Serum or Plasma 1 35 U/L 30 - 170 [facility] ID Date Data Source [id number] 01/08/2021 07:13:00 PM EDT [facility] Name Value Range Interpretation Code Description Data Alma rce(s) Supporting Document(s) Lipase [Enzymatic activity/volume] in Serum or Plasma 26 U/L 13 - 60 [facility] ID Date Data Source [id number] 01/08/2021 07:04:00 PM EDT [facility] Name Value Range Interpretation Code Description Data Alma rce(s) Supporting Document(s) URINALYSIS [facility] Hospi concepción URINALYSIS SOURCE R [facility] COLOR yellow NORMAL: Yellow [facility]ital CLARITY clear NORMAL: Clear [facility] spital Specific gravity of Urine by Test strip 1.025 1.001 - 1.030 [facility] pH 6 5 - 9 [facility] Glucose [Mass/volume] in Urine by Test strip 1000 NORMAL: Negat alden [facility] Bilirubin.total [Presence] in Urine by Test strip NEG NORMAL: Negative [facility] Ketones [Presence] in Urine by Test strip 5 NORMAL: Negative [facility] Protein [Mass/volume] in Urine by Test strip NEG NORMAL: Negat [facility] Nitrite [Presence] in Urine by Test strip NEG NORMAL: Negative [facility] BLOOD NEG NORMAL: Negative [facility] Leukocyte esterase [Presence] in Urine by Test strip NEG CHRISTO L: Negative [facility] Urobilinogen [Mass/volume] in Urine by Test strip NOR less ellen n 1.0 mg/dL [facility] MICROSCOPIC Not Indicate [facility] ospital ID Date Data Source [id number] 01/08/2021 06:53:00 PM EDT [facility] Name Value Range Interpretation Code Description Data Alma rce(s) Supporting Document(s) TROPONIN T <0.01 NG/ML 0.00 - 0.10 [facility] TROPONIN T0.1 ng/ml Recommended as the c linical threshold value forTroponin T. ID Date Data Source [id number] 01/08/2021 06:44:00 PM EDT [facility] Name Value Range Interpretation Code Description Data Alma rce(s) Supporting Document(s) Prothrombin time (PT) 13.5 SECONDS 11.0 - 15.5 [facility] INR in Platelet poor plasma by Coagulation assay 0.98 0.93 - 1. 23 [facility] aPTT in Blood by Coagulation assay 33.1 SECONDS 24.8 - 36.7 [facility] \\BLDo\\INR INTERPRETATION\\BLDx\\ Therapeutic range for Coumadin and related oral anticoagulants. - International Normalized Ratio (INR): 2.0 - 3.0 for Venous Thrombosis, Pulmonary Embolus, Tissue heart valves, Acute MN Atrial Fibrillation, Valvular heart disease and recurrent Systemic Embolism. - International Normalized Ratio (INR): 2.5 - 3.5 for Mechanical Prosthetic valve. ID Date Data Source [id number] 01/08/2021 06:38:00 PM EDT [facility] Name Value Range Interpretation Code Description Data Alma rce(s) Supporting Document(s) CBC W/AUTOMATED DIFF [facility] COMPLETE BLOOD COUNT Leukocytes [#/volume] in Blood by Automated count 7.2 10^3/uL 4.2 - 1 1.0 [facility] Erythrocytes [#/volume] in Blood by Automated count 5.11 10^6/uL 4. 50 - 6.30 [facility] Hemoglobin [Mass/volume] in Blood 15.1 g/dL 14.0 - 16.0 [facility] Hematocrit [Volume Fraction] of Blood by Automated count 43.6 % 4 1.0 - 51.0 [facility] Erythrocyte mean corpuscular volume [Entitic volume] by Auto mated count 85.3 fL 80.0 - 94.0 [facility] Erythrocyte mean corpuscular hemoglobin [Entitic mass] by Automated count 29.5 pg 27.0 - 34.0 [facility] Erythrocyte mean corpuscular hemoglobin concentration [Mass/volume] by Automated count 34.6 g/dL 31.0 - 36.0 [facility] Erythrocyte distribution width [Ratio] by Automated count 13.2 % 11.5 - 14.8 [facility] Platelets [#/volume] in Blood by Automated count 289 10^3/uL 150 - 45 0 [facility] Platelet mean volume [Entitic volume] in Blood by Automated count 9.2 fL 7.4 - 10.4 [facility] Neutrophils/100 leukocytes in Blood by Automated count 66.1 % 37. 0 - 80.0 [facility] Lymphocytes/100 leukocytes in Blood by Manual count 22.0 % 25.0 - 40.0 L [facility] Monocytes/100 leukocytes in Blood by Automated count 9.5 % 3.0 - 8.0 H [facility] Eosinophils/100 leukocytes in Blood by Automated count 1.4 % 0.0 - 7.0 [facility] Basophils/100 leukocytes in Blood by Automated count 0.7 % 0.0 - 2.0 [facility] %IG 0.3 % 0.0 - 0.0 H [facility] %NRBC 0.0 % 0.0 - 0.0 [facility] al Neutrophils [#/volume] in Blood by Automated count 4.79 10^3/uL 2.00 - 6.90 [facility] Lymphocytes [#/volume] in Blood by Automated count 1.59 10^3/uL 0.60 - 3.40 [facility] Monocytes [#/volume] in Blood by Automated count 0.69 10^3/uL 0.00 - 0.90 [facility] Eosinophils [#/volume] in Blood by Automated count 0.10 10^3/uL 0.00 - 0.70 [facility] Basophils [#/volume] in Blood by Automated count 0.05 10^3/uL 0.00 - 0.20 [facility] #IG 0.02 10^3/uL 0.00 - 0.10 [facility] #NRBC 0.00 10^3/uL 0.00 - 0.00 [facility] MANUAL DIFF NOT INDICATED [facility] RBC MORPH NOT INDICATED [facility] spital ID Date Data Source [id number] 10/25/2020 06:06:00 AM EST [facility] Name Value Range Interpretation Code Description Data [place] rce(s) Supporting Document(s) :PrThr:Pt:Respiratory:Ord:Probe.amp.tar Negative [facility] This lab was ordered by [facility] in Lab Site and reported by [facility]. ID Date Data Source [id number] 10/26/2020 04:41:00 PM EST [facility] Name Value Range Interpretation Code Description Data Alma rce(s) Supporting Document(s) CRSP SARS-CoV-2 (RT)-PCR Assay Negative Negative N ormal (applies to non-numeric results) [facility] The [place] FDA has made th is test available under anemergency access mechanism called Emergency Use Authorization (EUA). TheEUA is supported by the administrative secretary of Health and Human Services (HHSs)declaration that circumstances exist to justify the emergency use of invitro diagnostics (IVDs) for the detection and/or diagnosis of the virusthat causes COVID-19.Test performed at [facility] located at [address] [address]. First Test No [facility] System Employed in healthcare No [facility] Symptomatic as defined by CDC No [facility] Date of Symptom Onset n/a [facility] Hospitalized No [facility] lt System Resident in a congregate care setting Yes [facility] No [facility] Intensive Care No [facility] ealt System The above 9 analytes were performed by [address] [address] ID Date Data Source [id number] 10/20/2020 07:00:00 AM EST [facility] Name Value Range Interpretation Code Description Data [place] rce(s) Supporting Document(s) :PrThr:Pt:Respiratory:Ord:Probe.amp.tar Negative [facility] This lab was ordered by [facility] in Lab Site and reported by [facility]. ID Date Data Source [id number] 10/20/2020 04:21:00 PM EST [facility] Name Value Range Interpretation Code Description Data [place]ma rce(s) Supporting Document(s) CRSP SARS-CoV-2 (RT)-PCR Assay Negative Negative N ormal (applies to non-numeric results) [facility] The [place] ([place] FDA has made th is test available under anemergency access mechanism called Emergency Use Authorization (EUA). TheEUA is supported by the administrative secretary of Health and Human Services (HHSs)declaration that circumstances exist to justify the emergency use of invitro diagnostics (IVDs) for the detection and/or diagnosis of the virusthat causes COVID-19.Test performed at [facility] located at [facility], [address] [place] [address]. First Test No [facility] System Employed in healthcare No [facility] Symptomatic as defined by CDC No [facility] Resident in [facility] congregate care setting Yes [facility] No [facility] Intensive Care No [facility] ealt System The above 8 analytes were performed by [facility] [place] [address] ID Date Data Source [id number] 10/17/2020 12:29:00 PM EST [facility] Name Value Range Interpretation Code Description Data [place]ma rce(s) Supporting Document(s) AST 13 IU/L 15-37 Below low normal [facility] Sulfasalazine and sulfapyridine have the potential to falsely depressAspartate Aminotransferase results. Baseline values before medication administration are recommended. ALT 20 IU/L 16-61 Normal (applies to non-numeric resul ts) [facility] Sulfasalazine and sulfapyridine have the potential to falsely depressAlanine Aminotransferase results. Baseline values before medication administration are recommended. Alkaline Phosphatase 119 mIU/ml 50-136 Normal (applies to n on-numeric results) [facility] Total Bilirubin 0.50 mg/dl 0.20-1.00 Normal (applies to non-numeric results) [facility] Blood Urea Nitrogen 22 mg/dl 7-18 Above high normal [facility] Creatinine 0.71 mg/dl 0.67-1.17 Normal (applies to non-numeric resul ts) [facility] N-Acetylcysteine (NAC) and Metamizole caballero ve the potential to falselydepress Creatinine results. Baseline values before medication adminstration are recommended. Patients undergoing treatment with phenindione will have falselydepressed results. Patients on phenindione therapy should be tested with an alternativeCREA method.Toxic levels of acetaminophen may lead to falsely depressed results forpatient samples. Glomerular Filtration Rate >90.00 mL/min/1.73m2 [facility] GFR Reference Ranges:Normal Function or Mild [...] of Health and the National KidneyFoundation. The [place] method used in calculating this result is traceable to IDMS standards. Glucose 158 mg/dl 70-110 Above high normal [facility] Sulfasalazine has the potential to false ly depress Glucose results. Sulfapyridine has the potential to falsely elevate Glucose results. Baseline values before medication administration are recommended. Calcium 9.4 mg/dl 8.5-10.1 Normal (applies to non-numeric resul ts) [facility] Total Protein 6.6 g/dl 6.4-8.2 Normal (applies to non-numeric re sults) [facility] Albumin 3.6 g/dl 3.4-5.0 Normal (applies to non-numeric resul ts) [facility] Sodium 133 mEq/L 136-145 Below low normal [facility] Potassium 4.3 mEq/L 3.5-5.1 Normal (applies to non-numeric resul ts) [facility] Chloride 98.0 mEq/L 98.0-107.0 Normal (applies to non-numeric resul ts) [facility] Carbon Dioxide 28.6 mMol/L 21.0-32.0 Normal (applies to non-numeric results) [facility] Anion Gap 10.7 7.0-15.0 Normal (applies to non-numeric resul ts) [facility] The above 16 analytes were performed by [facility] [id number] [id number],[place] [address] ID Date Data Source [id number] 10/17/2020 12:12:00 PM EST [facility] Name Value Range Interpretation Code Description Data [place] rce(s) Supporting Document(s) WBC 7.33 x1000/ul 4.80-10.00 Normal (applies to non-numeric re sults) [facility] RBC 5.20 x1Mil/ul 4.70-6.10 Normal (applies to non-numeric re sults) [facility] Hemoglobin 15.0 g/dl 14.0-18.0 Normal (applies to non-numeric resul ts) [facility] Hematocrit 45.4 % 42.0-52.0 Normal (applies to non-numeric resul ts) [facility] MCV 87.3 fL 80.0-94.0 Normal (applies to non-numeric resul ts) [facility] MCH 28.8 pg 27.0-31.0 Normal (applies to non-numeric resul ts) [facility] MCHC 33.0 g/dl 32.2-37.0 Normal (applies to non-numeric resul ts) [facility] RDW 13.3 % 11.5-14.5 Normal (applies to non-numeric resul ts) [facility] Platelet Count 269 x1000/ul 130-400 Normal (applies to non-numeric results) [facility] MPV 9.9 fL 9.4-12.4 Normal (applies to non-numeric resul ts) [facility] Neutrophils 70.7 % 40.0-74.0 Normal (applies to non-numeric resu lts) [facility] Lymphocytes 19.4 % 19.0-48.0 Normal (applies to non-numeric resu lts) [facility] Monocytes 7.1 % 3.4-9.0 Normal (applies to non-numeric resul ts) [facility] Eosinophils 1.5 % 0.0-7.0 Normal (applies to non-numeric resu lts) [facility] Basophils 1.0 % 0.0-2.0 Normal (applies to non-numeric resul ts) [facility] Immature Granulocytes 0.3 % 0.0-0.5 Normal (applies to non-nu meric results) [facility] Nucleated RBCs 0.00 % 0.00-0.20 Normal (applies to non-numeric r esults) [facility] Abs. Neutrophils 5.19 x1000/ul 1.92-8.31 Normal (applies to non-numeric results) [facility] Abs. Lymphocyte 1.42 x1000/ul 1.20-3.70 Normal (applies to non-n umeric results) [facility] Abs. Monocytes 0.52 x1000/ul 0.14-0.97 Normal (applies to non-nu meric results) [facility] Abs. Eosinophils 0.11 x1000/ul 0.00-0.76 Normal (applie s to non-numeric results) [facility] Abs. Basophils 0.07 x1000/ul 0.00-0.22 Normal (applies to non-n umeric results) [facility] Abs. Immature Gran. 0.02 x1000/ul 0.00-0.02 Normal (appl ies to non-numeric results) [facility] Abs. Nucleated RBCs 0.00 x1000/ul 0.00-0.02 Normal (appl ies to non-numeric results) [facility] [facility] The above 24 analytes were performed by [facility] [id number] [place] [address],[facility]#: [id number],[place] [id number] ID Date Data Source [id number] 10/17/2020 12:51:00 PM EST [facility] Name Value Range Interpretation Code Description Data Alma rce(s) Supporting Document(s) Hemoglobin A1C 8.4 % 0.0-5.6 Above high normal [facility] Attention! Effective: 09/01/2019Please n ote a change in the reference range for Hemoglobin A1C testing.Previous Reference Range: 4.2-6.3New Reference Range: Normal: Less than 5.7% Pre-Diabetes: 5.7 - 6.4% Diabetes: Greater than 6.5%The above 1 analytes were performed by [facility] [address] [place] [address],[facility] [id number],[place] [address] ID Date Data Source [id number] 10/19/2020 07:28:00 PM EST [facility] Name Value Range Interpretation Code Description Data Alma rce(s) Supporting Document(s) SARS-CoV-2 & Flu A/B Specimen Source: Nasopharynx [facility] Patient Ethnicity: Unknown [facility] ADDITIONAL INFORMATIO N This PCR test is performed using the archie SARS-CoV-2 andInfluenza A/B assay ([employer] on Podclass0 / 8800 Systems, and it has received EmergencyUse Authorization (EUA) by the U.S. Food and DrugAdministration.Fact sheets for this Emergency Use Authorization (EUA)assay can be found at the following links:https://www.fda.gov/media/684137/download for HealthcareProvidershttps://www.fda.gov/media/548072/download for PatientsTest Performed by:[facility] [place] [id number] Director: Nicolas Ann M.D. Ph.D.; CLIA# [id number] Patient Race: Unknown [facility] SARS CoV-2 RNA PCR Undetected Undetected Normal (appli es to non-numeric results) [facility] SARS-CoV-2 RNA absent. This result does not rule outCOVID-19 in the patient, as the sensitivity of the testdepends on the timing of the specimen collection and thequality of the specimen. Result should be correlated withpatient's history and clinical presentation. Influenza A RNA PCR Undetected Undetected Normal (appl ies to non-numeric results) [facility] Influenza A RNA absent. Influenza B RNA PCR Undetected Undetected Normal (appl ies to non-numeric results) [facility] Influenza B RNA absent.The above 6 jayashree josias were performed by [facility] ([id number]) ID Date Data Source [id number] 10/10/2020 03:00:00 PM EST [facility] Name Value Range Interpretation Code Description Data Alma rce(s) Supporting Document(s) :PrThr:Pt:Respiratory:Ord:Probe.amp.tar Negative [facility] This lab was ordered by [facility] in Lab Site and reported by [facility]. ID Date Data Source [id number] 10/11/2020 05:01:00 PM EST [facility] Name Value Range Interpretation Code Description Data Alma rce(s) Supporting Document(s) CRSP SARS-CoV-2 (RT)-PCR Assay Negative Negative N ormal (applies to non-numeric results) [facility] The [place] (U.S[place] FDA has made th is test available under anemergency access mechanism called Emergency Use Authorization (EUA). TheEUA is supported by the administrative secretary of Health and Human Services (HHSs)declaration that circumstances exist to justify the emergency use of invitro diagnostics (IVDs) for the detection and/or diagnosis of the virusthat causes COVID-19.Test performed at [facility] [place] [address]. First Test No [facility] Employed in healthcare No [facility] Symptomatic as defined by CDC No [facility] Hospitalized No [facility] lt System Resident in a congregate care setting Yes [facility] No [facility] Intensive Care No [facility] ealt System The above 8 [place] [address] ID Date Data Source [id number] 10/12/2020 02:47:00 PM EST [facility] Name Value Range Interpretation Code Description Data Alma rce(s) Supporting Document(s) SARS-CoV-2 & Flu A/B Specimen Source: Nasopharynx [facility] Patient Ethnicity: Unknown [facility] ADDITIONAL INFORMATIO N This PCR test is performed using the archie SARS-CoV-2 andInfluenza A/B assay ([employer] on Podclass0 / [employer]ast[employer] Systems, and it has received EmergencyUse Authorization (EUA) by the U.S. Food and DrugAdministration.Fact sheets for this Emergency Use Authorization (EUA)assay can be found at the following links:https://www.fda.gov/media/629417/download for HealthcareProvidershttps://www.fda.gov/media/122171/download for PatientsTest Performed by:[address] [id number] Director: Nicolas Ann M.D. Ph.D.; CLIA# [id number] Patient Race: Unknown [facility] SARS CoV-2 RNA PCR Undetected Undetected Normal (appli es to non-numeric results) [facility] SARS-CoV-2 RNA absent. This result does not rule outCOVID-19 in the patient, as the sensitivity of the testdepends on the timing of the specimen collection and thequality of the specimen. Result should be correlated withpatient's history and clinical presentation. Influenza A RNA PCR Undetected Undetected Normal (appl ies to non-numeric results) [facility] Influenza A RNA absent. Influenza B RNA PCR Undetected Undetected Normal (appl ies to non-numeric results) [facility] Influenza B RNA absent.The above 6 jayashree josias were performed by [facility] ([id number]) ID Date Data Source [id number] 10/05/2020 02:51:00 PM EST [facility] Name Value Range Interpretation Code Description Data Alma rce(s) Supporting Document(s) CRSP SARS-CoV-2 (RT)-PCR Assay Negative Negative N ormal (applies to non-numeric results) [facility] The [place] (U.S.) FDA has made th is test available under anemergency access mechanism called Emergency Use Authorization (EUA). TheEUA is supported by the administrative secretary of Health and Human Services (HHSs)declaration that circumstances exist to justify the emergency use of invitro diagnostics (IVDs) for the detection and/or diagnosis of the virusthat causes COVID-19.Test performed at [facility] located at [facility], [address] [place] [address]. First Test No [facility] System Employed in healthcare No [facility] Symptomatic as defined by CDC No [facility] Resident in a congregate care setting Yes [facility] No [facility] Intensive Care No [facility] ealt System The above 8 analytes were performed by [facility] [place] [id number] ID Date Data Source [id number] 10/03/2020 09:00:03 AM EST [facility] Name Value Range Interpretation Code Description Data Alma rce(s) Supporting Document(s) EKG [facility] EBGBNu5mXfLHLvOyr2SlIaOiYGKaRP6mfzf6T1Z2fONzS1JzhHEld2hcE0JjA8WcPISoTATDVG8CbPCz jb2 [file] cH58si9cWJvB49p3oOL2D8EoA6UebV6K+FER+p3Jq6ynW8G2vp/4CeXH5iwYXRmYY76vyqYCq+05L/COMMUNITY RELATIONS ADVISOR pP7p3+C8FkmseFsQXrZOgv3SqBERGSbawOvi1YeqeD cadlo8OUu0Yj7dzr9NuAAjdp3OGyMiKAJ4r1VRnz4Diw8GpCIe6Yes9lLrhEcnHo9XTsktPrh5zhxLnt Bh1/QgosikGkqgUiSRrzU0QUASThWDKnwMypXHngbPTP/5hCtY1BOZm/JUbriwwgGNfApRbVHeUL5QQA c7FQB6OgtOpHi6gSzpN8JzIebzUpIogs8cYkFxXnzR qXVBpRZIJ4P6oQcAbTafhgbUSEo7qOYOF7K8G29KU/ebfy2OXxJKGtdnWsarVtvf+je0OU9Zm8sUE/8U wB8obzDkZqta3Vb0FNFJ+llynXYOZF5ipxP7lHuesuwQK/y3jf3bqv9n0qiWm/XpN+1nT/EeU9p6T+Yl In6A3f7XnfcOZ/d17ZmTH+4sfeNj2AarA0PsZWMUte YYYPwWyYlzw+2C6pO2Y6N3sENqyVJnMXe9JLSQM1QQkP2P4FOZT3FdzEPE+K2FTTzDR3mRMMRcZf8Jkb gJtcknPAkTw+7bLf4CXKGCA/+NK3eQLQAh0IcAlqj9CBRVy5ZCYm4KH6V18F/VpJDr0jl7W4z076VGaB 3fwbbnI0jPYCPp6pOk3RDJSD3kd7yH1a0YK5tcRm0a RGXok7Ni9zl6nOz4BkUn5x+k9e/mZiIwZ8uNkxXN8EqqZk90hCzWlcfTc+f0eklE5IKR21RSwR7rILzd UcmqCYQzOoJIL/IHfNYeDkWQtuIZElxGCzkgZBUbgyqVdDCdfqZw1Gl5lJ72rksuwXbWLApu6cD7IPML MxDh3Q9UH4N6XhTchtRvogTsfdOv/F0qAJdwSe2sQH wMIgcJD5kph0T7ptu1UqpwBMn8dTYKzagGJvZNkocyy+y03NoSVbelUdvtguQ7IiOtqi9T/ZtpX4/DNI 6ix9rwVNroGwueAfnrrlW//JNh3fW/Chiz2FbvcJ/2ujL8CR7Y6n+k+S+s8W/yCbTUhcDyhN2oOE/4lt fa8z7NWmzCshPh0+6fDQxfsfBDO84jnc/eQcmnEFRA 08uhKynwHbkAOYi5adlzXMqS6U8hMMp+ivFeaQahbE0tu+uf8Nxy5B+el1K8yfsWT/+qQ2biatZ+fQbD zqzTkOsHfoZ4/9wX+y78l/yhy6Sdg+E+MzdAU8BGQBzt97LIkGbckFbMjLWQHoZb4J0oRo8TBcJcC6RJ itm4eqLv7UYnOfO8RS1LBUMNHi3r/3dP/ew3/iWKif 5Gxz6b29ad/v6f69p/p6oeWNMpbw80Z/9nT/3pP/7Ek/u2DSafdsM/3JxldUt7BApBTW2Oao1Hl4rnwb /I2aPl/dRGh2jSjWq09Fz8tympOvhqdfxra0+ylZx7voXfc8LF/uJAi1mXpEg91Cs3kQgDEDJzaVlfNL m4p6NEidVZtpYTJv6Mug/rPz+Se8aY/ev6xrYr9e5B PDmMPCoQrc0x4OTNXsjYpT60/Y++5yZHz+yR7x+SfPBJ9/8izx+SfPZzz/xK9C/8lfk/5Erzy6H+OF/p WXIC8laO6Oi5NZItSD48vmtyuySY0G3VCTbwbkiTIas0pTCTjV1TTVadFoD/o3yzn12dlsPf6aqiQWPf m7xnpzcMRfqRxHS1mjYz3sHP/hzQS+iTQu5kkCpncn 4+U3oiQGXyRpoYQvNhDa1WOFhKgXEjDPlobIcrDPxW0ciOhBI6TITGJEswExrwEHG160IFODpUD+msDK Vwy1wWT++SqOoQqEUVis9WYPfGMJclC9GJQRv/sivwBlfhvm9E1LC0oauK9vFOkQDVIvwFpcRhofZTHF ZPoRdmtx12BDoH9tRmdqGuVV0QKRV0YqxUOiqBkXTq 7ixHzndJPWHKoB6jiEc8hUzRNyvUsTsTdXGbZUH4yAYNHt/jJmRDp67ue8syvtxMG+a/4a0ORlE4g48w RKiFvtihyiM3n12BTHzeOXBg17IMZvbn1ztBFKf29KswN2Nnszx7tEOqcjUp3EpezZHbA9j8iBreaWQD k8Nxqxn8xZRwUpIiz66fg2HkTJyXWNM971lbTrN2Xi +QgMF7yn4AU6fJCRtX53bOhyKs4vEDHRNJ4i4JRptHcQu5zYBbSM6Uyn8mvHjne+j0Ghgddm2MzYlwuj P+jqKWTxbtE7IDjDswP0VD1s7Obga+PVhDdPAEINuklCfBa+qDBvXUm+geR3B8c4VfU6iBirWSOc/SxJ Y2aPt8Z9sjL1OHt/Q6VAjvZkqYRZKUCkoQQPwSHpu8 3cEQHQ5ejO1FljcMz1CM496Ov2y54tfgUaD7ZA/Ifg8UqxigiIv2xsCT4FH4tDc46mIEIw2YAYcMBaQK whteciryar4PKEhfZnNphxzRkZEep3dykmJ4948OCKtzo9EWInQ/UQiUwQGYSATB77ZfHTaSqek16AMO 2Vq1MfUfcm3A26OfQ8siA6kBUGR11B5OWM6/Fqwm1D MyE1ciGd2Zt8w6dtO/xHrT5vk65eMMP43YFY6Px9KHIaJ90Dt4oTqsHibUG+xysGiE/+KqyBzN+PNZAZ OiwEpGsPVQIK8ZT9u6IVTkTbnRWKU7nhBYUFrXGksgNN2qTIEtCF5Iotsyhx8TPQW+J52CmNo2QBF87V uOtJjS++mnCOU+wn3ruUAokSlp2f0/he6D+DTMaqEj Xk/z+junFbWiMQ4gJcws1ZlnyncAN+2/jv/xs0wKWh2j7eOwliFAyMYvN5/xYhrdDCyIKP27Iv6Am8NG x6OOMEXKxBKRX7u4Dv8VYerc400EAySQgppKa2Ow42tnhzOp1M36/HrCxnn13nOSCJ/Uczrk3dz72Fnp 20MwbGQgymijfmiS9/bPxhbp/we4OtOOYJidclqY5E ZnJUakjCfQDEmkrc9n+4uBGYq5/Y+fCMZ9dzZ3ljaJZiB+t/vIjDPMtNrD3NsiiVpGQFUnRhMmAQxVDx rcIj2DPESh5jAyDCLBf4/kCLeXT5oEC6F4Pfps4do6jEJ0d2W8h/EbqpzYfhjbCOwJebD9z/Bmw3ATSW 5ocXgBEW78C+U/Telugu/5lseFvLf+ax+trxkd9wlSVsR3 jvviSthH4FnGvVH/qBizYiXVN8gtSg1B3RYfKid8oWA9qcIPDctFr2Zb1Y6mJPSbseymVRxqZ3osOIpT bKjl8ZrBRy7rUQXeWqxU/ydgyN00Vs6OHbEeHyKGWYry57Xsp9fAWmKFFkVejgRKeHCOiDaKP/M/jBah gpNCHb+v7jP+8//vNO/2swTR0RzDNYh3/Y+uWde3vT H5Wq4dg/cFmNosZIrioHoeYtXYbvJ8GrKpDKui5/bJuev+U/k/SSdN9OoANwz9nqUl3ZsCfHO/oz2Xs7 230jQ5F0E9x84Dq98ULJ5CxooKyVCHVn4nxIBxaDJRdBHN0LQWr/UUX3nhLSgdYKdsfjJZDC4RnFH5ZS ujavt0WWg/l09Iu9xxxktOiiDe3I/A3Sn/q10p+3Qg spY5IcxyvMd+ptyn/nrFtJq381XNG/FGDgr8bVTn9c8M+ZZsxFuiLgHrHroQDt070ANjYqcBZ00vxML0 WCbu29YOiC0Ker6f+jf082/fA990cU90rIeHk9Rhkff10bnf13rX9wE4L+7Q4yM9C2DyQ//6pll6Kdsz cPo3/eHfbVK9r3i+jfk91/5AeG7eYa/TFli5bpoV6o a39Yt/bMGprJhrWnamgeNv+z4ZcOdEGGGhgN/zys/WHYp+4u/2tzeH5bGteKNURQxHAgw2rMh+sqqlHI 1ke4G8C+y71AywFf9AjHC4y7d7gpkrksgSge4orAr17K/anfJ/0WXFcVFt1eh0/X0FwV1QWP3p/bzqQ/ k6lGDE+W+oTK4a7d/GHzsl+UNTQtNKHYH/ucf+xz/r KE5L9yo53lud1DoftNfRPjW9KCBGpJPTrfzC6bn65P1fdyMWY1ty0h8Mki/zn+6M+soZnsdYuU/xwKKm iXs/8Yid43VVUrFRIv9kJiKDeArU5QFKF1W0CklnwtvQif+dETx3tGWqXxZCVmHOdtGZ8xjNa7DcR0h8 KBpD+2ffh04I7e37LSJ5Yoj22l/akamoehP/N71ODY MnaZj0T+z/mDTnGNmBcvQSSUrDN3SQICiNYHDyTktrB2i2LzAYhzKn9TQoDMgQ2/6NuP4XoNlL/PGpqv oTlwPpspezbfO0f4Vv/fNZhxCmmPdLkQlXgsR4Y5/8v9rdoPJTmcSq9u8E+t1l1iwt+fP/tCQJA2D7fj rvDEdjGb6lVllldPz+rM8Ye5/fYKZw1eBi/05/NHf6 cIbnYslzdHRwqEuwWyxqgvag7CiVg/JkN/navDEWy5yIrz8jPGht/DSEhjnN0o/c+xsM/Lgr86ttKNOF 3dALSdkRX3ss7ajZNHv+q9zMkkkx7hqYid9T3VtbzcvO6V/8y3if/MN43/TCtYf+xT/jMZ/tA01UCtkk 75eA33/zcKGu4wdcysxUOlbtfu91g4qf1ry5sue/7v l/5Mdj/Oxh/2TGfzD/U5IsLLHNqh4xV8G/5uHl37Z86VA7n9NWI7rQJl0J/+hiZEmqWMTMicSxGYUGQb EDfEndPDzyHdOkDmB2iPwkHtnzetbJ5js5OG81x+wWTHJg8Hs3JdiSiyqAFZJOFhxzDbYVEKnx/rBjke WCXMWl4pFGX0trQGJjUiUxMGzZyPRKBs9j+U45HwA+ TdUlvVGWPDUeEDXXVOjcgzAVoMr8upuuKikfWXEuPJVQbSJfdvylybtqrQPY26kxG4oRRiVKq/6meT5S JLsOF5lyhh7hvmzlfbu1aw0y38gsQLrQUognD4lBUBuSfQBW0HnrWR5aVOOVnYstZaAtHqFT9HabyCfa tqtOs5N4WFwt5LQEZd3rVVKAKgoQvBOBnFJYYXNd4S UMEhlliekAJlUiGioAhJ+hzaNXrNLFvxMx0hSypm5kuZLtdAscqt2OWD0pPIILsFt4T3eIwaBqljvFlF GXNUw7klsfJit9e/gokzwu7OrCfA3SL6/8bIYpX/rlrnwrgjigsoenfRNGyEmSId90BLIwalDjVGIdX/ 7YmjlvuRCG9omzMHf9o6w10R/VyKR5wcxYTKc2fr7y PSRudBUklAGDbalOPVDeVsFLqIostbUQDFCVmrUNLYAzmiGm9SU8eVIHpBlTC+6bxnSurlIaAD3FpBqA TogDpt+KCABilmiWbiUTLuYFQKOMRdGFRSnZP47b687aV0nYOJNOSUGoRztGNNVGArtVmgQfpQfuIx9g 7u22weDrTPcWTQW6hbnAkSU9P3tqidStL9e2u0bGKF YDiJRN/a+01i+s1JbdtEleW61kpAQxdE1x+kQtU7hdrp+ov8FYXbZzSysMuDmKr37BhrGgZJi5d42hKH I0btbRErcBwRTlBE/0nM5GZ1Ss5aG/3xkdkryEZXk5DaSF4bUFjcUkMYAbpAJzrBw6DkdrpkGtBigCT8 NZoUxKINZZUgYY6a20fxUEew20BQRis8dBA6eL67yl O7XW1V/7kPg2fkVh+fSZnUq4eB2nlDy9iKlO/9JKXgkyQOy7E6LsaHFLw7LXFiVx4VyDjU/cSWiJTV/D knTMaeSYtZbYFzPJUcLVyilp8FK7zCvCxv6fTT2hQE7RxLzIB5AlCEGHxFV32rDDm6D2ZITHL5h0Qiqe LiPH83oHH73Ptxb7kIQJwrk4kx36r8hgiBIkJi7/eE i5GjIgu2MaVXDWQsRLyOye372OAWRz1TutUGtWVkfalJ5NXhsdKi6a60DWUH/uc1gJgSNRFxJxPj6FJH jt0PoRToAPKVufNMmSzFDWYC2oQrNcxR3V+KWGxqEanbttRbONuxJkVX6eSw5xN2rrX3aOe65JK7Y91z k1muqa8amuj5XoMDQ95BqTOeLRQ+BZj9NEhn6++Mf0 sS9pab+c67b6VI/gP69Qpo/lP9xvQc2Y/AG5lfOnoZ0ilI5RUmiglvHvcVcRv4so4HmWpOedKDeFhQDd VpbsV50jQbr1c5u3F+YYdrk7dC09Y9129mDZPVnh89X8OkrZKhIrz+qo4BC+3plW/7A339Uros0k9Cry hxZk0hfJKaTMWk08B9NE+mH4d/SxL+drj3jJoVT6sJ wXX7EhTkc3O9Px/ZfcgmzdYDXgsNwrPsCs5oopiMxD3ViXtBtdTtyqvlpM7yOFkUadjDnFpo0EpCaJfZ HEpn7oh6ekYdgs9X9WzI3QM91sxkktOmbwYFopj52mbc5EXRSlG3HCnKpne6QwveoFj+i3OlLEB/JdlG 0G+6UjkB51W/6QnQb/aCgvfTTeHQfM8HwSTMBjx2KG xQqVxGsPC0F9+tWipPzafyjjLlVeX2+m21z/rt+u12/goswurmzcopqs9bFee3cmEFmqU6eS3Y1kJy93 lyEvotyTaCfkvSnHQnod+BMGkk87PLY8eZbU7BdgA1dwHw0/jZKu+asKy3F8AcMN36pOGB6k4sZAnSRc sEYvKiSy610pk1wcBaazrl6TVGnGKmIzoU1nM4d/Wb fzvn9rD9+Yxrl7mPoR2ueqe+SIh2Sf7zRQ6eNrqMwxSruTBVqypCcuc9pv0DjbehqyBv6Y1QFbCEbD6U Ctqx3bv8MVjZOL8pqQo1SEuC3scklcpHIDvWc5JpEu8Oilkyp9PF3jb15JTCajguWJ22gg4MdX0zSzWj 2on6txcbIwOUFpiNc6dUdjzhBN5UgaK750Pz0eywoz 4CAtlcpVbpg0eVJuUjl8sC01SY/wdz6PEv5u9h0El2LjefMGE84tahXPw4+jwO/e4J0SHy6Veptnd0ap 2Tq42KKgaOxwnWsdOMV+rIZ2/WjTOULuuEvp0wyadtphw49t2nTnn6p1tV/8Y46/Ew6uSbD7T7uVSdP3 XQlsth0wWkhRUiJCjur4Lp0ks222vecWtikhoX3s4v XI7+BGqoFQLC1fCV/iCyDTHo8q5AGFrBENqafgDZnYkeJFAnUAODBxovLYdjkAiSHXjRyERplRzgiB4b wBnzK09zNf0Jv7DjiImVMbun+tWZo/dpa0Xapj5/UNv0CDzYfKa1LhaKujAlfOwp+Sg4G2kV1B8WscDa k5Dd8Yz3f1+q3+0S05CDoadOIzryiF4/2HameTn+/4 /m5LCMdSQVd6VOkBOTf/pInozmnZpaIlMVwb6yz1VvM4ztlnf9tD9fIyCD501Y+no89h2gwE58/rBvVb rY/FBJ8Gx55IHm7aNct2EGpA6iyp5fWam3JQlD/6lKkvhX8hANYqX4hCHWaIUTSCFXIzTOuQy/7PXHPi fxTCZqkQvFk8Et+leURgXHjFSGHKB9ROOL+mNSWkN/ LZoi0IVyYYnubweOEznBCvLOKVzFNCoE4UTMDWukC9kHsrGsPXDFPDXAORDobgKJeRZ6KfoVOJu+den/ 1pf7+v/9z6+dTi33R84r11Y42B2rD6t3SXbSSuXxXWa+BWfBVfAtuA+bkrcTh0d6r6j7i4M1ECjpmnfC a4f0t0u0B9M5YIiszdeHy6m1o6N0W5J8LWcdcxjOc1 vrbm/i5w51nTF3r+258s0jcpwsg1hvci/uojfhsd8u07824P0J7Wrokrbdmg2a08299o1923jRaU5tdK d8Gx4H/1+B9p1TvAEHvCzthxxjBpCjkGygXqeL82Fg2RQiGruK45D6eUn3z9A0OFmlymbOm9e1o9r0r5 F9ZDitwypPg5z7q1B5J0Q5CGxalmwFy5i6t9P6S0E6 t+449a9zictwy3ifbl/g4s14uMM1s+637j699U4L4Qnerrmjpt5t30654H5B6OqinkdrgnPJ5hi2O68S f6GadM6CfEEQPgbJ67L5yP63v7VPyKg3U27NS1UErUZ8Q+8HA46p8e2j0Q1L7SwdrpvuIo8h0w9q8D9B 3QmgutIhAp4z3q4F8Z3Y4GefqqMqDj4j1l9jqqqea9 vrbm/g3v43qFN3a+449i6qleseu5o9h64659Y8JNbobvyzq9h1p24292K1SCqO2+yJm+Fu+DY8Dv6//4 mblJKVU2tHU/SGHcHuuPBC6jQ1y9Lr4yLgSoe/+d8CWa0Df0rf9T19D5vkgj3wOr8/C6BlhVnv9jeAG4 aJ5/zwNPxTgAe/hnfhO/zL1L09D/0OHoafXngaXobf u/Au/N7SXr9xydPnNXc44CdC5O3LVn2Mu1z7Qp9pnfTsyh8f7kkTRuad33tn0K5C0/u0/zfayPfylJSL AOEA54yh90je103p0x0tXDpJnZ/I/BTr/9u0cPzLHP73oUFDstpesH/hXXiF/ZwKuueaK+xH+TVm4uJS s7Hmv+1U696v/3EStxUZ3Q++G/YTGcNiuf/ /8pc43Hp/7EZ6Gl+GwH+MukTn1GWtG7YDMB+28h+GwH+BfZXkV9h708Gu0PqvE2g1edzS+hG/Dw3DYj/ MqIZrwtwTpP6jGvH1b3n8B1ib0Bl2/946IT/tu32qorw7+7qxkMeqan/78dgCx6n+jKief/TxPxh/8sP Kaf/IksFY5jl3tSUo/s4ZWoz+sXOef/WRm9c9+sv7C Fn26x4r/zPsw7S8vM/PiH5igLu/7yQzKn/2cTNI/nHmyP/vJTMOf/taWbv8FrPc67Ix/0fxPx/+crWSn DcP/9Hjvvz46no+7E96Qkl/z+Wc/N7mrw/8k/longyC8Mnwpyr6/DzY0AevCHy04cGB00zO1JlGM/uzn nkEWSers7M+j2G3n40CP/yjrfPifzrsL/9MZ14f/UX 778D+d9xX+p5MpL/xPJ+Nj+J9O+4f/6Robf/bT2eIT/qdjz+F/OvYQ/qdjS+F/VmYy8Q5ron/hfxrvIv hN679W/2m8l/A/jcmh8D+N9xL+p/Guw/802j/8T+NDyqgsKe6g0Ng/jbYN/4L7j39ZT9q/EQ7/k7gZ7o Y/+1ElgfA/jXca/qdhD+F/GjYT/qcx8RP+R3lYw//Q SjB1xpfOfGs8ngk8/56IQzybX53LsMgn/zlin6uaUh6dy3QdSjlOFVsQrhn2225YA+93w1KOk/qFG/3D 86B/Gjj6r/qt3uliylI16/f1ID83jq1Ip0+Eo/7Ya1nCG3Z71AA08W/hWCg5f3V8C6s+Faith+Ee6Go//i u6Z/btM/t+mf2/UDevkdVg6mn/650T/C3XD0X/H/ut E/D58/s/V0sIrm3/QblZiqTo8ra/65Tf/c6B/h0j+36Z8b/OH2CymT/4Q/udE/wt1w2A/7zk5F22G/wm E/PBv6h/dkpP4OA2yZ+gd7Q/9Q22K9ZdpBi/0Ih/3ommE/wq/hsB/OR/9Qb1C10d2k9K+58Ye8nXU/r9 nPa/jxkf0ui18y4fCOqaM/wsNw2I/wNFz6+Ub/CO+D B/pHuBnuu/BteBgO+oSrwt3TlEwL/js9d64w3Y/2P1lLB4ocLg0E/M/DOWU/pPQiUcEf0hC3tXQpz9w6 N0bY4qMyavMA/IoWWvJTxr1QLcRHmh1312Zg9ozLMlasq0QfaK/1cP5nP+EIolLy2njTgGm5GhY8Vpvk 7hv+B+0US9/YX8QohairANgdc+uan/7StnrLfRsZq7 SWf3AENnu3J4iYP186txjtJbz5XJlIgi7F/xP6f+B/QkcN9A/MiK8SRGEAWo/Vnmpk8cF7P5pbklsbf/ 0MdN58I4+D/qEdwv+lvOVDL5P1N/s0HTEEhwfHzzpbMW+Ybkxb9RYCE4KP2Q/sBhtN13S+bls32E3mjm H+Xtlici2EVvgFD9qYYY1IZYC/CXcXvtI6HYsx/3C0 efgf+wrR2DaDrbFcsk7L58Z/Eeb3XsoU//Be0D+8C/TPBIf+0Y8tt7r/9I9w6B/zHp9C35e/RDtI/4BD /9CG6B/h0D86J/WP6sD5Ffl3E5bP/JF9ufKo3cFHfjtxpwz8bSTrPKj6ahp71bPIjySxTvBo2ClN6tBY wTpvehFU8mw6xAJi6/60sp+W5ReToetHG5A12qG8EH OxWKv+/UfA5X+eVuP3B/0T7/TB/zQ+72cc+vTqv54+DFf/3cCgp74y/viUB8M0JJvTtQtc/uu5a/z+3D V+f+0czAU2Y/huz702FmMSgGEqQym1q8G+5xk1fn/xF0z65Nr3Sf1EZ//F+egfroP+Gp574J12MT3L0X X4bYWr/3pm9V+Pzq939F/bmn88Nq1pStE4a5vFy1hh zR8+1G6TsgzzxFAbC/qH50T/YFfoH+GwH2wP/KLHed5R/I86kZq0LetD/4F5Hq936Yk7f7YOk/Dsdf4y /L4Iu820Y/3Dc6J/tE23g6BHn/Aw/NR/Dw1jhYxnCX6J0lksyIL/oh0m+ga978E65nKkh9N/wstw2I/w Faith+EW6Gu+G7EouCG3OrOQnIG66VBnsA1sJ70wep6K o94Kz3ev4S/gefNsP/0L/MHkKf3J/qT5h3osa15vh+Bx01w/93wQe2L/NOM/wPNTtm+J8VG/Fn+B90yw z/Ozt1Yo3orsdhSy6P0pi/g16a4X/TLgV5G2zlpi/Jzz/7oXLBDP+Htgeaa83Qpv54JN2nyh+ZWi9/Qy mvso1oMcorzPlAR4M9w3J/9ApaP59J/sMp8nlH/0R/ NNE/YPSPcDMc/Ud3f0Z4x25q/meDY/6f8MeZRd+fh/5ZLLGG/uGdon+d5nrm1sH/ChEI/fPweemfafpn on8Gn8+wyLz9G7gZ//Cu0T/YavifTjuH/0EXzfA/9PsT/RP+ZKJ/sB/0D+8d/IUdqg7gAPUD7wa2w7sJ /9zg0D+8I83/RBva/M+U/zr3UL5Ct/ZDzeQZ/ifxDv yds8L/JG6GP/tJfBv+7PorvUo5R/da4X/QVyv8D/NRK/xYlkFTcG0EFpb1VyB/aMMV/gctusL/8I5W+B /y38iwwKIlDmq8iO/BRhlwv9emginW0nm/a2wqdp5lPpgG/0q6GqrKHhh/fqQpN7Zfl/+iJ3imogCJ/7 Xu6r/W3Q1X/5RwHlh9x3U+SU1Y67zuLrAhA/PP4Ga4 L71fgrPkEcqNf8W/Cb+Gd+Gn+q+F/on/yEL/3P1VM6VR7TzFD6OGpiyaogel0Hr9K39ohaMryW17UmaP wzV+Xzb/s9A/4TcW+kdHsZF2J9W/Hj6P/mcGMNSm6B1aXr1k67o3rZ3wQ1j2/7O0/hXPaetfS/oHPAxj P+BpeBl+y2akf+L6pn8W+bdB2Gcp/Xpbz61v2mY6Ho 79vPZreB/8on+Em+G+C9+Gh+G8WF3S86T0M5w/IKhjcikePgc2VhjTc/28bRpeht+vjA8ionF/4Ga4r8 P19DD71h3dR79/0T8P+LXi346h455BjF+5At/OJxej4D5y+H2plKHc/mde4Fj/ivf7hv+Zg+9+9jOjv3 7D/6Bb3vA/VJx7w/+raycni5NteJA/dvje9/M/L7Wm 3s///AyB7/8h48fWik/P/2nZ88yUluZGw/zrXjz31A+oM/SG/1nhw9/eK7ClTN0Owrqjb9sQ3H/m/NA/ +m7on+i7X/RP9GUv+offi/4Rvs+Y/WX+5wbH+F04xu+u91J40lt0+i/hOXe6T35WY/7retKhlVz2G/q+ F/2zwaF/ZvQ1BDre4ayw4N1B/uQUMzq7f0fC/0w+H2 d+4w3/Qx/2mk2Ew95fe6Adr/gftNYb/kc4/A+66w3/gwZ4w/+ce588kyxH/sYL2A7qNSUP451qJ+CY/+ G9M/8T72tr/gcc8z/jxuavQ0Rq/xNtvpn/EQ79E+2/0T/TqT05sk4cdki3Bho6w+luy6Gn6oU/6KUd/g etuMP/8Bt3+B/00kb/RPvs8D+04Q7/Q/teel5RvYH/ 8H53+B/sZKN/lYj5czR/Z0yx0T/iX7vqp1UFv8p4mlG/wuds+S07maw5f58/ER6Go/9qnF/zP/tehit+ Y6N/wn42+uc9Pb1SV52fg0F89p+2zf9sm//ZNv+zR/Vf+6n+a6N/uI7N/2yb/9k2/7Nt/mfb/M+2+Z/9 TRaY2ecLmIgl6FnP/uG9o3+Hc9V4Mq3Z28qq6F2v/Q NuRwvtVfFj2/QQOl2e2R9TVM1H2jgDg868Sgtmq7hya1ILP/lQj48QM0a7/hXtoPifaAeL/8ceM4qO/S O8C6N/oWbTx10T/7Mt/mdb/M+2+J+9zX5M/5mQJ0p2Z5ghkGlxUbEttEMGybx1uIxoQRFf+ihSdtQuCw RqVytLaldrTrqT+zXsvPtMFcheFoojAYSIq2tcJoEP wZ6gGk3tigpnYgtWl7zDc3pCxns9bVh+MGzsYrF1UVDDQD8YDScW6cpa/OYAFFW0s3ikseuBvQ18RI4R ZWRaQJooK0Q0O0p7nYdIf8Dy2Zm0CriysXY4c6IxkayxO6qpDOoOQ3IwGZcAyomT+qm4L4FyM1uldQob G0VlslJzJNO2gAXB/bjPZYW+LzGa1C8o0rAh3s7Iha k59sCYfm8MecT+a3V+djiu/Ng5ozsJ1jFjRFubdMLpmdNHeJdkB9K2TgMviJMc/QxW8BZwsxZiNb6OXD V0pJ/MfcBmk3WL9unOjz1qnVCRQQGWUqHfRLJ7eH2xXxWhkHIzX5gsYwusPVCem7PNS8+JsmoXkurVkd XLgjCCZyvwznnvD1xaE5puxryrkFFJ3kzAIQ0Vh6BJ ocLQ1AC/mybEWuRnk/JoF/Pct8A9TPaZLPhbocYHAP8aY05ebKKybBtILvLqy2qYiVnHCrn7jsySxDQt hFofElorTwuxdevIcBJyS/mLlo2679J6YGll9mtZkOuYyw0jPVzppmRnk74HuoqqHbtm03ZihM3iculf FnPeVOUHMbeKjm7UdZS4cZ9I6wi8PtZjxoxXy+bNNR Ngrbl/auuEDgJ8kIInHv5qGzlw+RXC9MwFhVQNLHsLJrZvPlVSMXDBpGOKoqkSsLM4FzKMwzGr/4RkZ0 l3zMUrZqXWquvSQLN4AhHPCXgxaLv9F53wY8cwqQq5cIPHeK2OFgwXDVuojbRlmbBZ1KSlddLlBEuL72 QUzcznqeB79CVYdvxtfVvBvWCXx/WtEhpF8hVe50jP m/Y+NDCDG3R8mZ+X7G/EjGumpfHLlv9ieITDt63J3w4jofsMlj4uvA/h2x6/7CtCz6KT93XZBOnXMV8M JiFfooLdVhwwpdn2H+Jv3yOdl/2VBm9471/k9GhJsoWNGruNfcYp0HAwM1c47e9/exjv9tOgo/3WXb91 12/d9Vt3/vI8vFMKrWEGx2LajF6Q33HVoOCkP/7tbH /st5AT6g7t5/4QWy11ifwF7wguJBUU+1yTjJbld8FTqc8RxMX6YeJ9A+5tuAjlUnPL1830XpI6PoAN4a 4LQVEcb6PyNuYWJAtrKzWTAdv4CSGvY0T+32vmVp/3ZiMj63nqbGDp0eHx2442W/zb0o8L/7b0s8O/MY AEplOY5V9qf4J9ZJBOUp/ofQrX7MLngEY7BBC+SK3i JWIX0G5SH69D2Mu8uSIPMHSOYCpMOQXomMrP1NI4FROg3c2neKGfUSIKjCJg4RaR4gi7EKp/SZJY7BSc t60j+5cxWiKOSSYMG7nWMEFiVdUAxMcLSjF94cd5ey3e2VvHBttSb9dhkpNiyCjrG5qGIL0QHpL94Ub/ kUASRFKDmVdBdCaM2eSPkZfLJNGrZkX6q0GeglfM8R NCv/GyiBU/8J2ELV3d1TAxK96NuQq/ZDkJ/ZZkGwn/qsriL6xiKsSfuQsXxkNoEShiB16wAZvIVXAudv mvAOnqr05mQxfWlrE5RV+l1HGNDoPaBf4xi1KCFANpI2SH+g620qHnUkx8AFwF54GyEo2xOtoLQB48UD A5D+t88Oe46vGznWJC8+673Cq6ekq+YgXKZ4uF+jZy OxlOala/Bkg4rmo2ExqWJMsr5v1h576PgZw9Cz3794hK8s874Uw1kff+u12/2w8unuxoa+u32/Xb7frt zi4rEJDv76sd4GRilWNlbNs+KySa23Ws7eaxJteFp1pD6CbKg8e/qqDzJNsI+m4Ep8WFUA12hfeHf8ax kejg2o25204Yd1n/57+gAPQkzYnpt+H0UXPnKVtQji 3Wp3dK7mNfNmFk9FLAgdL5pXowgcW8ShWvjV27poyk5ddkxK9Iq2X825E3LT4CBPBbDdGRosNbnQWhnS fcF7Xgv/BsjR76SA1L79/D9dtw/UaE+oUStBPo9zHkgKlh46I3p5P1AzPIMjbAOM8iO+9wKg69Czbt4q D0A1A6IBzPzDQn27EVag61EkRgKfaQa/1RjKM0BdDK 8GkPv1G/C9aE3rhpNiivy2JL5t91O4wdKlfilbb84rg1isa8BcfZq7PkA5Jwr/b8Aru1SjNK0Eyvj3Gn vy/PPn7fay6Ob30x+udW3FJNmQDtU2ScrO7tmm8mShOMRCOvJOa6cdmpooBypz4C8qG0Qtw6/VB4D8Av T+cjWCuXSAFkDpENzOTHP0Vl5APY5Z9Vsa09QTju0p Y9ksBiJSHKJDKBenbcKFNcrB+2joR+2zoS+z3ThzHer18Kemyrrw71QQaNqVeRMgZokkcwgj41uEA7jn igU4d91BXJc+o8YU60l4KjR69Frm1WWLv4YMTr7gTH/YbFE+1srOa4w2Sz6d4eiUXA4ePQnRaJpM1y98 vJeyJ3Sj+Y9UMtdTL9fvfqRrfYe2qkyPD46z0zp9VZ T/L9pDnJ8/nU4d+kE4l/v265Y2QC97F/i3y2ipx4OUUjFqm8d080VnKcARAxYVjFlngVYQHtXqqZCX/R XCi6ITDb3N9idOXzywi6XxDAPi9a0FeSdReTrVuGLwpELgLQrfBgx4WEpVwwM81Mgq5PUT2v0rw8Xlk/ ahFxEaBtTkuVqoD6ZpSUOPdTi0j/Xj2xXmbgf+u3x/ Xb4/punx37mM75NR53s4BecG0xwCVgPJ0gZpot8R0pHbtt5bERLc5/9eIsdp8E9SgoGY8IsNxDW+S8/A 76TR4J/ZWiKlo5ZyT4GfzNjxVMKzeT4Far0BPHakZrK9NEluDi+j1z1JxvNeTnyK2kSENjSor4wpcx4U YFk7Xp+p3u4UfdyBUuDRMsIfTkcon+81G91kA4syy+ w74cqcc05ljZykASZcissXn81coitng0ehlwQQXLl/KxEv1O00/X7uz8PZ0N1ssoPmUGar9FkifHa8qT 8qrdrs2KuM80GqkvLq9vnU0bnOx/jPdcHs5u2uP7H3ypsNtmQwJ39Xw1X9agZs6nj4f4q29y8G6zgmB3 ae6tqjU2zyZf+f8JdJP8BXIMj49uTTk1Y9bXOsA50d MQfLaJNmLwJfMIwpdOJAp/7ppOh19LKffFQhDNC1jWVQeYHxmx9GJpWl2/l5YFsNc6ipZ8jgJwyE79oE 3CySrHRhCvFtr5hcFAe8jS5I0YYj/cN3Ny3AkPz3YNuhSvZLTOLrElt2neBh9lhcuSiLZza0sfLF62gv p5VDA3WFgZ5VxHINKoSmVJoeuZtyDfH2fWk3pyLW3g tZw1xuJeGsBslbhAj1XbFk2Sox7GyrQ1Hdps2odKoEplRUOxe/w+1UcrUphWVJR9ofyTh04q7VE0wvDw z9ToP4NUdg6nCJK+XxTM3Jw1SN2qrpRqzEtDekvTswdIdCIf2PpI+EfqAJE882oWvmGK33vem78t/i2b XlknFs3I7P+6YL6lF5n0C3k9XedAMbqeS3JdT2HpcC HpI8J+ipJepe7Hb4ZSs1FceveEYiSL/zmhwp52x4mow+ffFNevn+Bje3e4y8G29lDrt6FYpF6u2fgs0j uH20mtsLN+/0JsnO250AURz6nUJDo/BEtRb6a32oSw9zWG+G9xIpaPNzi4VWer31Rpl/iMjjai9kf689 CYaH+H3zCdGtcGvF9QjHe528CpbZ+pL1up37NOTpz/ AoAI+xrNtgX6r7oJ/5Y3Df+Wzxb+MPLUUM3GVO4Wd+BRxq8BHBzkIjE/07Ph3/RK8G/0RvqFYIIkC5U8 YOhA4V8OAuXkkVYO7SH8EXXv2NBsU0f+yMI4TcmuSkeTXj71QPrwamIbH7Z+je0A+p++2b95Ez5bhi/2 enzIK/6quf8T9KgfccJaYY4ShPLsnhsCfIr74w1vGa ybGtHHp6/0N4JCpLrW7mQ8ksW5Q5jphjIqzOes3HE87EJz37xU8sklaX0s+ezt4k/SFoHs8u7OuK11f4 /e8mrh3/I+4d/ycUZtdmuxW+D8nlHb/Lk9VaX5xg5vRt4VS8E12i/y/YR/0/INmwbSDsK/hA8h76T369 k4q8t8FybU9YenM9JswKSMS4Ck3qZ+C1oQREtpzc+d tf+2sYEgE+BcAaOxAIHc1gbaXSmVDUPh0u+o4cpNx7fte27jA1++Ua41sDu0+xh50oRq7+LR13coi71L Xx+fvq+t17+vrde/jm4WnQ4o60rFL78je82oJkAr+K35Hlqm68mdOhtdpuK7tmmcPlICFuyu0ciKNOG8 TCWH4OFvGjQPxFKNdy5kkfHekVG1i4xT/bXduhNbz2 U8gGU9ddG+n2YQB1cGGlrCyu7kBOx2ISJoV3l4cVsEb9vrz05vw93zj08bi98mk54ZqxN5xv4m4s+QZD a5hyHqIPaw+QelKQjk7fOSbLgh8nr8aP1KGOjfZe9ir0V8+bT1ByF8rAhfVt+2ff5t+/h0+/ea9hw39w un2/Bh0oOG0fry06fVa9+fbl8/2n9SlPcxQX+e0Hx/ BeZAIh45NNIcouS1f9HjUw+3nj6fh1/TPgX95/Bv+qxvy7yZnk2cj7/TZgUR/GpS7jMrGkXHYk/d7t+2 +7ft/j49p7db55n3s+3+bbt/2+3hlNwByWZMx6q0IhC8nmuLtwZrVEbTqs446y7dCL2W5bxp/q1f5t/6 Zf6ta/+Ffjt6xcuf5d/q0Yd7uzw60f5gaIZn/bJ8yv 1thMm2dttP/vWTtt51K/QEFv/WtX+OQVYHgtWc9y+A9VsFYZnbE3sr3HK62HM/NUv1SmU9OhoOVCb8vk 4DKnap8HWkY9G7vbwF6igdFu6O+rMBmdXzo9LJF6D+jfryRcq/UV++yDZi/k281slyx6sDZ906DwEC64 v8G6/ZhdeVsh2nqq1Go1q3F4E9bpegGV7reRRZXD/+ WBX+aVkrD2kXH9LHUfbz/Qtk19X+lG9sfy1xAdbiwqb3Z3r4Su5eR6Jco2xiO005YInkR66oRPNoj4Nu vzs2LX81JbeCMCvups5L/TaMPQUsGkUQ8ycxmRv1cJNiLa9qa0tHl687h+xfIAqR+iUF6aE7jeAOy308 hrHUlz8/G/+ML5uZPka21mP5xmA2wWQ7bmiL7nmXuj nx7wdk5E/90hdvIjISYiVkkHe3uljNKdMjKotZuU+yzLL28RzHFpEjj6nQJXInNUIb+bxHF4f3I9zXhp Bjw3akCTQhFX2o+pwHSSc1U6aSbS8LV8tKl0taeaPP+gQH2TyxLcSe5Kpo/4ISBrN/QRmD2b+glMHsXz qa7gd9Zs56B9ZEk38YipcdPXT344bQa6+MwuxfUEph 1a645eZdsatXer6tdqSt+tESUasdsrCipNjcWYjPHJCDP8ZTbaEjn73Q9MiI4d7Dinh+pLj8+QlPpaWj xUznLoF35q3z/0I2/KgYcFFRW9MeSzzkpwQOkjD/Cx/C/gB3hHbouo7Q+LRr/4Iex/Rsq3Yzz1f/gt62 otxtcbRgqfpeFPOZ0K3tJgwpcx9ICpYqdNUl9/6FJN 0J+ddMqmF7I3wPY8lKl9YzpzL/xmkW/9abxb/5JidqqAh0J28M/9abzb/5UhJB4eg33wtWV5rf1QayVd 5h3pvflbf9zXu/HqJhYJDW1e6/odjs4uWlm9r6r8ZPkyzb7tl/sCHDScW/1U0w1232F8owTng9JbtQQA p4o24GjopjF9kvw9LmvWF5jN3qvBEKUpxf93k1BeoN oos0tbidh/WujAm334ze+r48W1QdD0MkvTv/Al8l08JEMLcY7SGi4hdtDis2PS23+TEZp0rBHlZt3tNA KC5/rM4Jh2m7dA2h51vSyfSF+kJx+EUQ82Nc7ofMndeDebge30mHaaM7sGTbrJX/6Y58k7v6YmWuEDIM lz/L8x6cSr+skcKFSO5LiIA1XHhupfu+kh2clGiG6x nxsdNSc4ckNCxN2Q/g0v0mvhwiHbpG8GGdmy8rej1Tp489g/i3qccJ/9S2JGtWjqJi/8Kr3xP+TTqR/Q uShrF/DZsoRUcCMwdTj0xtB0Cnc7W+Z9qN/WvkOTTnMooTIWuYUrFL1IHYum+ZDVxWz2qnEUVhx3bW00 9pa4O3OpqQtgCzRSS3uiV9cjJrQpG1/Tp0coivv23m BjLZFB9m9l02QxHo0KuV4Hd8jqc/ucmDQjg83J/Qz0a/dI1h3SO2om28p31c/5Tk7Gmrf2I4tEg75a8J lNwW/0Zx+yEr0J8NCVc77oGEvUKstYbveyu1B/lDTZcuOnstNG6h1tj0GqhuaU1BFWna/4LKRLB/QXUi 4R0aPEr4wZl9j00k+t5Oz55LTdb7MX4iXXvOYJqKkv 4eIkKYrUdER55Q9d+rZZV6M2Qlnb8WVkIG/hC82DD8JN4TVCY3RkkxrMCpG6HfqzLaqFz5uPPtNmGGsD +eJ2B/lsyf+F79MSy+l+Qc975DlM2F18i2NY9Jgwx+R69XonzVsE65IlQQ0FmSvIMD1ItTnnXvP6VVlX 37Aftt+0+77w2klU0ex9eudbg995/Gcu5Vdu05JJ9l p4sevzDnT6cw6izfLZwEmsn2SdQhiPfBsH2mqWprqmtgL3nn9vfcIkbfd8QF+tNh+0/7vI3d3unorS+/ 0H3/Hqr2U392E2Hkk0GGh60M41/su42kxF3vUPPywS21fvuIWgBu/8AQhVH9rwFIZ9h/PJIJ2xBe0HmP 6WTVPJLvX+hnq1SoBXHpaey/JfOkbCW7x+7oLFJ4xd v1D8OBy/Ub+euDfp2pHlzWnxRriDUgx1HckjCPGe/D0hHfIs+l2goMIK6Rc2fXkhplxbdA7gPoTll1Rq Xli1S+EkkZ12KgAm0Y5O1Bd7jSobtyma/oyhIhkB0s/8IhtV+M7mANnnF24n8zAs+s8yvsPx+syvbXU1 y+CF1nw4l6mRcWMMCq4rr2ry3AkZGd+Ylqss8RLKH8 C3tpouu5UV57I9G6L8n+WEi2B041eKdzvtYT/oWdxa4+k9ieCZEvtVzZ/Ydq6Tltrs5piyy6e+hqsd/5 MxfkKBDC7S/wquhV+DdJQ/YvLFXTDv+m38P+hUeFtdy/PZYum+Yw9l1gbl2Y2P96WqQPloXusQJ8N8Vk ajo1TRaAOay+BfWa7F/AEHE7Ef8G/aHV6rP9AwQE+x eyythd+52pK1+2rOiLx8hK7H+X7iLi3o/pjR4eN6Pee2+EkeK4E1v+IOfM6o9UOqQ/QXKS/QuSk+xf0H Qg+xckJ9m/qEhP8h6HusI/QdqS/QuSk+xf0Awg+xekINm/HFK1tK9SN5f+B1xoj8JqsoybGJT5f59xpG aVGD2YRzp+dWTzqhwiE8XJDqUuKBdqu+UZ7ZKrbrLU EY+kS4d/y2juzrGTiXo/fo+XWWP/ByaPSk6xBUmR4COrjbZMRfqfUx11JjcVwqTnuv4s2TO56g4BlB5o shLnpc7a7OQKrrhg/Fa7Kwj84RH/OANl36q3au0o/cB8h6pr7g9lr3N+yZNEk0c8Wdl+IpbTxuC1r7O9 ksq98nSk87eF85+bo72Dn9+hFj48gm0KecWdq2di14 OoO9+v0mk6Ik4LHRqa+7ioBm7s0kGip6//UhvEkqn3p6u+P/zy+DsW3c6iICkF/eapcxhLNPAP9pDsWw 48GJ/fgZUXw/CvaQ+iL86MwqZcgU9AioJVZ+VSCMzm+q+OdeJu+Gd24WD/o0ztD/D575Kuil+jTO0P8/ ky/J4U04uwsT7/egqn0mXruc9aLqkbg7J+/xnbwcPw z9R+DkmbKwPz+c/IMp0U70OT/7xaXudzagf/bOzg2/Aw/BXsTrwM/88u9eqlVhJ5/RpB5h1VqL0qNezz jNdVme6hrwdn/jonKqSSvh0EY/saw7SbI5SLC7j9BG0JRY9NTOxd/yhTm/lfTLy1k0/0JILtfB8Sw/arianna 4522JQV87c09U789z9HcvnfXns4/8aFwT0K2/cIeou z6xbv+3FbIl/4mB0y7ep+ndfAMzPnLPv/sJ7/72Y+u+fmrUEH/Bqg76T2+Xdfmx0KVP5Ga/SSehj/7Sf wa3it/J4xRpB8gdiAbu33H74bSVlNYaHwVEK32Z3/2c+Cpn2c5yDHG/DFIABsjLceE9dfVnUx/w7PFys BPzLESNQKzEPWzn9/4JvN83aDo3V/9/AYBfPdnPz+l z/k/+/n9f5i5/SaFQi1hJ3z+vJn4/DXBT/qa74qsGwH/9jO+UuP/YqN7tBLP/1FV4VdeBt7/su4351s8 ns//5H0//3Pwz35+99hX3iTfA3C+10X2VmzR83VUg4kiSr2e1sJ/8F+I+X/91zr+h+fE/6r8Of9p0Fxg wxrGzfxfd/wP98L/SF6vSbvGVq+ABhx3Dga/CJf/6f I/EmiGP/vBZ8Z8/w/z+Wc/gGCdnOT4O/ebgNFTb5xAh8v9eJBsE2fQ/oOj/+K9hP+cZ5gQyyZcKpjxJa vm+NXHxRR/9JX/KhS8YSP/gDn6cVtkGLmaUxhOACaU/7lp5/A/N3Yb/zmq641b2vn2c238b/+5V3we/u emPcP/GSzv2b5/PQ3++q/EX/84LdvJXfLshva8pj/4 H+HwP4k/+9F3w/8M2j/8j+4b/kfPE/5Hzxn+R88f/ufGlsL/6PeG/4V1ElWayImZ+L+0vq5kHZ8zedXu /aBPYgZf+qRv5KCZOt8k0lfb46I9YpMebkVr5/WuY+6r6qAX72YVrTd/CPklXsy41Jr/DS/DYT/CuzD6 J9r/Rv90Pg/5N1klSwNE/whPw6F/4r3c6B/t1N7tAm f6h8/ST8Xfm7mN+kt87MXu8oB/+u571/VD/8R/9pb+AZf+uaV/wJ/95Dmf/eg64X/w37j0p8/Er+FdOP rI9unvO1vyg/k6w597U4W12S+Uv215mnip9I3C/M+N/vPb4Ds0S+FR7YP+nv4YZOXfzTw/9oP/jDn4n7 /9/lMxBS8/PSAnVZxcWrJN01tCWd9tq+/nz7LtYe88 /mc/9AUx8/7D8X8M/5P4sx+dH/6H/iJm3Q9+bobRKFt5ZRWs/jVU7EpwgqmrvxwY+cfEv39fA1yW1sBk /Anali/RP9+I3+ZI56x79J/wi/hkP/hK8Y6J/w+MA4Lnp5Bwv7i85pktY/CC/DoX/03dA/5Qdsmx4mv423 VavF57G/9Hnon/BFMa/+3231O8RdLUb1yWznN8GWcH i02cAi7I//mfFPZWrHCnuLCfWxKMka+mfd4E//bW0fYg1Gqcnte232kD751316no0FAwzY1Re37R/aKa bRzzmhf+AsoGU2hKhOvNIIRFJw/LOfc86+UzvF/PnvOtEOn//5XT/u9fmfn+wY8j4LV5oyjeHqCZ+Josias 3oH54Z/cNvRP/Qtuif+F8M9E/6rzl7q8rkix1+vw0P wzH+El6GY/w1wYy/AjP+Oo6wM7fsrrsn/MZg/LXBw/BzxqcD/BFvlrOcvHb6A+PzXXhdp8+CZTM1dPem Vx8X8+PqN2N6/GDG7/GOwv/OQ3atgNEZRX4v109Gbv35DNQL0KZL/cM7Df+T+PM/7NKP5OkLk3//QZvF zBm2R7tW/eUIoYh9Z0DQMOxKa9TtwBMBIAIoPYlK3h otlGmc1g18Fzn3P15ZGe1qb8RgQ/0Tz/iwiww3Gxbcgc8Xm/63YH54ey5y5D+0/jQ2A22XSs9vd0VKz+ mfB/2yRCo5f1E+6WDs5/8hRcGX65DUZ+ifsL0H/ASc7rG1Jf2Zn8gceVjq3/Tjj/QPuPTPI/1OYc1vnW +ES/76yu5u1S6aV00/gEP/8G4sh8EFQ/mJkak0i7or Mp8zXUvZ2y63y10N/+jz0D/AuF29aj6/mez9D2rL4795AoxIg/7ILz0JO0OxY1lHX/aD/on/74P+ecFh P9gh+ирина/jhziTGPnXYb/ifxZz/8l2MS+3y+CzP+0zwCa6HNhdft/lypqu7u/+Z/XljJWa0o/vDB/wjv wuF/rC15A65p/I/ePekBjyAObgf6x0xn/E/isB99N+ yH5wz/kbfps5uR/9F3w//o2cL/JMZ+OCfsR5+drcC0Jh81mAJuaslcLsprD6egQv8Sq14Ge7Yad+vsY0 sT/iEc713l/pdomnczM6TYROyAv6IUQ/9oLM6Xh+J/4r8z8T/y617he7VAvU/Pi8T4Zloajx+J9gCGqJ TvT/RP+PPJ/E+2s7f3N0V/ol+MUEtuA2m1ZoH3gOTH qdWE3Gj7Xq+e+bLa9TvOXiI/+Sj3Vxdq4poeAt2l6vod+nqrczwG11l+mdI/fH66U41L/0O74X+4Dv6H V4hRx5h9eb+oDcP/5ElEwmlYw5RVPHIPlC4M/W+ky1G/Veou6FqTfrf8u9Hw4+eM+kukkyHI2uT/oXUj R21rSgFMidLicAba4D+JOSEPH/ygZqVB5JlkIf3IJKFsuZ GQsxpSdAE6eA+zB3/5K4K36Z+D/1d1f6H9lU4Y4Lj7e7T2gx0R/RlMpG2Z/6HNw//8Xuo/nat1uWNTqp F/Ht5F+J/nBn/731oEM4JwvI9JXAg/HUK0W/ifh/YP//PQ/uF/Huw5/M+zwZ/9TNot/E/sl75ivMD+Z9 JW4X9+/5p/FaP9kPF48F/qHftsFXhs8Tqek+ef/fAM kf/b22dqs8bT5tkr+47ppE2HLZ6+b4TR/bU8G6Exn473/ADJYhWzGI01fJoqp/ZV66bwM9S0WY2Ok8eT GV7aHRN+ddqBw/+M8A+K9CF5bJMe8ShThIuyu8z4k2MSRceLy62y399Mi+WmIYQR0y806Ho2FJ41W+Fp eBmO+UOeJ/xCwYcyqYnjwd0M+UN+S/zdeKC6hg55C+ Joseph+LOfMTn/Yxjems6Ta//ROeF/Evfz/0yQHke51L8Vb/zQgB3ml8G/SbwLh//R+eF/bS4qL3ehi54Mjh [file] F3gi6wgaR6cHT793+dlGo45q8/bs9UD15anj3Z2/Y3 s0gf42CowmF+wXh6T32ex9/0hRn0957loEEyospE+15Py963j/6+wW+Dl1h89Evh+py3zlyITr8ft65d 85avh2s7Z2CB830d4aq7z/5vIj1kLxen+/vf/61l9b4Cztbd91c/765/glb8q5I3/gaxsm3nOq7Ansbt N++W74+DDE5/Q9Q1k1HBuYm4D7+ylSRSfceyep6dqz /lL9keB9l1rovY0rqY3COtKnX231I5fPaA8rLi+tcqOldbswU29R+2iV111eI4CtBg2t7FdcsiuZlku0 Sd5LsrrlyaYoodp877YVPeJ/6amruDiN/snk8VfZ1Gzij7Vd/sL97EP8yW/58rn2oHrm/vVFm8J4MhBS R87Fyi0/622Lt/rr8qwr8c1wR28ir/c82X6WMZ122h nQ392YZ3n4Rj653w/v/rXc/QySW37ic1h4ukj+LtHbfjw8//LnLxuysnvev16Ny17NS+oP5WlknvZlcb gaxS9zJYh5ckHAsGifWAB2p4QqJcw0o3Wl14/7z1+/Gf6YolpK5CgXH5rPHn9yRs4/ffrlu2+Otifx+u 7PR0+4Pmo9v/vN58gZ4+8evj6/00Cw01rLwwMw5pnu c2w53q5v9ltiWqvuUBs6vwX+1Z6M665sd+R0+YftBBVu2pmHNolwqifbE1dyKhUZ5huw4/shDB9/e/barr 5WNuz/3oHvKeuryGel6jimM0BL4radOk6AOEjHwii08bWB/VvMz36/Mk7idYu6BYSVRxKXslv/8PQVxC MNmiinRxaJTgQS3SON3un5LbJmB0AGLgo1HpITevHK j7dJHiJAvcumAqm7SgzrcoM4Qpy6AbPtJgTCHhNjTiJjn4JATlYvD0kBVgUuQyFVKgD2IdMBSvAbK9Wb HlXKRBMP0SMCTkvgIvCgHiSRE+TzZrOT7dpsuiHOIth7CrXNysUYmqKBUeJ5X7rBhfBSSuQ3RyeK11GI SnL8HersG9REG7ZWUxCpNoQVMykZVuKDNaPJL+PmVu UV4kkmorPMAht1ZqBSijMQD1qW4xQYlQAUIWXMrRESxmZrU3q10fqtHDJZVpZVLhFL9VzjHxfDokpmPg xWLcVAO4ZrAcKHNjGVdbHCNfILOUZWEgJQTaNAPbYGDyC6YgoOgfYXqTNYPAHFhWYOnnIuQeg6M4IYKl xkIUZHMTIKnOTL6KAQRPM2cVXlHoFBJqOwMnXwJuVU CrW5WaaqDvvTKrETWWSGeqDgrjSQQvkV2iwUymX6NaUKN5s7WoIT8ZX1NfFMSxXLDWQYE6q3HiZOOkmf qqdsouZhKvXRQkNASiAYQpPR2Pei3hpCUvleIfSBQKEHzuCwssQR8riAuwawzkL9VbuGJfBAG+PmVuZG 9iaj4+JhYlCLMjFic9QHVfDDkeYTGnIDVkUWUqZ1oe DTJnFiDuKFLfBcNdGT1Fe2RwgGAwBf3pxuXlErpOsRFlYrneRJJjQSBmMKSnTuLDNYTwNDAuRGTtZEG4 STZiTFIaPRxdDQTrVUV5OVVxCJZiZJPkPS2rClPxDYRdSAi6KHptMDQrZNAykqTSEPPiIHS4Fks8GFIh XAKyIYRlXLfnQHBtMAIlLVScLAU9VWX4SZBkRiAdRG DbFOCdLUDbOKBvLUHzbnBPJFWpECLhFQV6GZYiFVWpHNOgPCswRBNiXPUvQAkyBWUoCNQsFV6aBxRhYY CuQRHfEUceRMDjMXUgxiTNAGGkKAHtIQUvXECwNBRwSYXxRIkwYDJvAUXlNYRqOLAxGYUqVI9fJaYfYF LdSJJ0OYIuECChNTTrwdDWANBgJGMsNNz1TWWrWAMg CLLkFQxqOMSxJICuWYV7NHVxPNUeKU9cSyIzTRYcHZL6SxAiVLKgHCUtiyJYPVEaNSEjRYZ0DrYqXONe WIJmWZvmCGPcRVDsYDnjLNBgQEWxME4dFaGsHVYsJVVfPXxyVGPeZPVgylJDGEPhBFFoOWFlEbHaSTLe JDTyTXhuHNDkXLV2YjC2APTzFFPxFH2fAqHkGDLcBP U0PFfiAQNxUYFhqzYCDNFaBVPhHChzADYqIXJiOGZqXBejMIViKHJbUFP4CXDlNKFrCL7mHlIpIEYgOE DwXMXtVhJ5TkYtAwOVtZIbiZytcmx2HGvhX0n2WJQkWGnlOT7vvkLvGIShDuqsBw8rlEH8CUFhRfqXTm 9Sb3KfcrJ2khExDzI9ZxL4LjYsXS0E ID Date Data Source [id number] 10/03/2020 07:57:07 AM EST [place] [address]M[place] Name: MAGDY KAURONDOB: 1945Sex: MOrdering Provider: ILIANA LEYAuthorizing Prov: ILIANA LEYReferrgianna Provider: Procedure Performed: XR CHEST PORTABLEExam Date: 10/03/2020 02:28MRN: [id number] Number: [id number] Class: EmergencyAccount #: [id number] Exam: fallTechnique: AP portable view obtained.Comparison: NoneFindings: The lungs are clear of active disease. The cardiac and mediastinal contours are within normal limits for an AP portable radiograph of the chest. There are no pleural effusions.IMPRESSION: No acute disease in the chest.Report electronically signed by: MARGOT ROSADO On 10/03/2020 7:57 AMWorkstation ID: [id number] Name Value Range Interpretation Code Description Data Alma rce(s) Supporting Document(s) ID Date Data Source [id number] 10/03/2020 04:51:26 AM EST [facility] NT INFORMATIONPatient MRN Name Date of Age Gend*PT [id number] Magdy Leach 1945 75 years M EDPT Location Admission Date/Time Visit ID Attending [id number] 10/03/20 0123 --- Iliana Ley DO([id number]) EPI ID CSN Admitting Provider [id number] ---Provider in Triage NotesNo notes on fileHistory of Present IllnessChief ComplaintPatient presents with Fall [facility], pt fell from standing position. Found by [...] dementia. He states he is at the [facility] for rehab. He states that his [...] a week [facility]. Shortly after his arrival he [...] Range Color, UA YELLOW Appearance CLEAR Specific [place], UA 1.022 1.003 - 1.030 pH, Urine [...] had already spoke [facility]. They areexcepting him back to the facility.Otherwise [...] rce(s) Supporting Document(s) ID Date Data Source [id number] 10/03/2020 04:11:[address] [address]Zkjxiks Name: Magdy KauronDOB: 1945Sex: MOrdering Provider: ILIANA LEYAuthorizing Prov: ILIANA LEYReferrgianna Provider: Procedure Performed: CT CERVICAL SPINE WO CONTRASTExam Date: 10/03/2020 03:08MRN: [id number] Number: [id number] Class: INFORMATION: Exam: CT Cervical Spine Without [...] rce(s) Supporting Document(s) ID Date Data Source [id number] 10/03/2020 04:10:34 AM EST [address] [address]Ixehvhy Name: Magdy MendiolaOB: 1945Sex: MOrdering Provider: ILIANA SUPPLEAuthorizing Prov: ILIANA SUPPLEReferring Provider: Procedure Performed: CT HEAD WO CONTRASTExam Date: 10/03/2020 03:08MRN: [id number] Number: [id number] Class: INFORMATION: Exam: CT Head Without Contrast [...] rce(s) Supporting Document(s) ID Date Data Source [id number] 10/03/2020 02:52:41 AM EST [facility] Name Value Range Interpretation Code Description Data Alma rce(s) Supporting Document(s) COLOR [facility] APPEARANCE [facility] SPEC GRAV URINE 1.022 (1.003-1.030) [facility] PH URINE 6.0 (5.0-7.5) [facility] LEUK ESTERASE (NEG) [facility] NITRITE URINE (NEG) [facility] PROTEIN URINE (NEG) [facility] GLUCOSE URINE 1+ (NEG) A [facility] KETONE URINE (NEG) A [facility] UROBILINOGEN 0.2 mg/dL (0-1.0) [facility] BILIRUBIN URINE (NEG) [facility] BLOOD/HGB URINE (NEG) [facility] ID Date Data Source [id number] 10/03/2020 02:43:20 AM EST [facility] Name Value Range Interpretation Code Description Data Alma rce(s) Supporting Document(s) URN CULTURE HOLD [facility] FOR ADD ON CULTURE ID Date Data Source [id number] 10/03/2020 02:18:28 AM EST [facility] Name Value Range Interpretation Code Description Data Alma rce(s) Supporting Document(s) POC CTNI <0.01 ng/mL (0.01-0.07) L [facility] Less than 0.08: Myocardial injury unlike lyGreater than or equal to 0.08: Highlysuggestive of myocardial injuryCorrelation with rise and/or fall ofserial troponins, clinical symptoms,and ECG changes is necessary.PERFORMED BY [facility] ID Date Data Source [id number] 10/03/2020 02:04:02 AM EST [facility] Name Value Range Interpretation Code Description Data Alma rce(s) Supporting Document(s) POC NOVA GLU 122 mg/dL (70-99) H [facility] [place] PERFORMED BY [facility] ID Date Data Source [id number] 10/03/2020 02:42:40 AM EST [facility] Name Value Range Interpretation Code Description Data Alma rce(s) Supporting Document(s) SODIUM 134 mmol/L (136-145) L [facility] POTASSIUM 3.8 mmol/L (3.6-5.2) [facility] CHLORIDE 99 mmol/L (100-108) L [facility] CO2 30 mmol/L (22-31) [facility] ANION GAP 5 mmol/L (7-16) L [facility] UREA NITROGEN 21 mg/dL (7-24) [facility] CREATININE 0.68 mg/dL (0.80-1.30) L [facility] BUN/CREAT RATIO 30.9 RATIO (10.0-20.0) H [facility] GLUCOSE 116 mg/dL (70-99) H [facility] CALCIUM 9.2 mg/dL (8.4-10.2) [facility] TOTAL PROTEIN 6.9 g/dL (6.4-8.2) [facility] ALBUMIN 3.3 g/dL (3.2-4.5) [facility] GLOBULIN 3.6 g/dL (2.7-4.3) [facility] ALB/GLOB RATIO 0.9 RATIO [facility] ALKALINE PHOSPHATASE 138 U/L (45-117) H [facility] BILIRUBIN,TOTAL 0.5 mg/dL (0.0-1.0) [facility] PLEASE NOTE:Total bilirubin results may be falselyelevated in patients taking Eltrombopag. AST (SGOT) 15 U/L (11-39) [facility] ALT (SGPT) 28 U/L (12-78) [facility] GFR >60 ml/min/1.73m2 (>59) [facility] GFR ( AMER) >60 ml/min/1.73m2 (>59) [facility] GFR INTERPRETATION [facility] --NORMAL KIDNEY FUNCTION OR MILD DISEASE - GFR >OR= 60CHRONIC KIDNEY DISEASE - GFR 15 - 59RENAL FAILURE - GFR <15 Est. GFR calculation based on the MDRDstudy equation, which assumes a steadystate for creatinine. Est. GFR should notbe used for medication dosing. ID Date Data Source [id number] 10/03/2020 02:42:40 AM EST [facility] Name Value Range Interpretation Code Description Data Alma rce(s) Supporting Document(s) CK 97 U/L (39-308) [facility] ID Date Data Source [id number] 10/03/2020 02:34:10 AM EST [facility] Name Value Range Interpretation Code Description Data Alma rce(s) Supporting Document(s) MAGNESIUM 2.3 mg/dL (1.7-2.4) [facility] ID Date Data Source [id number] 10/03/2020 02:26:35 AM EST [facility] Name Value Range Interpretation Code Description Data Alma rce(s) Supporting Document(s) PT 10.9 s (9.2-11.9) [facility] INR 1.04 [facility] SUGGESTED THERAPEUTIC RANGES USING INR F ORSTABILIZED ANTICOAGULATED PATIENTS:STANDARD DOSE THERAPY INR 2.0-3.0 DVT, PE, PREVENT DVT OR EMBOLISMHIGH DOSE THERAPY INR 2.5-3.5 PREVENT EMBOLISM FROM MECHANICAL HEART VALVE ID Date Data Source [id number] 10/03/2020 02:26:35 AM EST [facility] Name Value Range Interpretation Code Description Data Alma rce(s) Supporting Document(s) APTT 27.4 s (22.0-34.3) [facility] ID Date Data Source [id number] 10/03/2020 02:14:14 AM EST [facility] Name Value Range Interpretation Code Description Data Alma rce(s) Supporting Document(s) WBC 5.3 10*3/uL (4.1-11.0) [facility] [place] RBC 5.10 10*6/uL (4.60-6.10) [facility] HGB 15.2 g/dL (13.5-18.0) [facility] HCT 43.1 % (41.0-53.0) [facility] MCV 84.4 fL (80.0-95.0) [facility] MCH 29.7 pg (27.0-32.0) [facility] MCHC 35.2 g/dL (32.0-36.0) [facility] RDW 13.8 % (10.5-14.5) [facility] PLT 276 10*3/uL (150-450) [facility] MPV 6.8 fL (7.1-10.7) L [facility] NEUT % 57.8 % (35.0-75.0) [facility] LYMPH % 28.0 % (16.0-52.0) [facility] MONO % 9.7 % (0.0-8.0) H [facility] EOS % 3.0 % (0.0-5.0) [facility] BASO % 1.5 % (0.0-4.0) [facility] NEUT # 3.1 10*3/uL (1.8-7.7) [facility] LYMPH # 1.5 10*3/uL (1.2-4.8) [facility] MONO # 0.5 10*3/uL (0.0-0.8) [facility] Eosinophils [#/volume] in Blood by Automated count 0.2 10*3/uL (0.0-0 .5) [facility] BASO # 0.1 10*3/uL (0.0-0.2) [facility] ID Date Data Source [id number] 10/03/2020 01:45:00 AM EST [facility] Name Value Range Interpretation Code Description Data Alma rce(s) Supporting Document(s) SARS coronavirus 2 RNA [Presence] in Res piratory specimen by GAVIN with probe detection NOT DETECTED [facility] This lab was reported by [facility]. ID Date Data Source [id number] 10/03/2020 02:56:16 AM EST [facility] Name Value Range Interpretation Code Description Data Alma rce(s) Supporting Document(s) SPECIMEN DESCRIPTION [facility] INFLUENZA A (NEG) [facility] INFLUENZA B (NEG) [facility] RSV (NEG) [facility] COMMENT [facility] [place] FDA HAS MADE THIS TEST AVAILABL EUNDER AN EMERGENCY USE AUTHORIZATION(EUA) FOR THE DETECTION AND/OR DIAGNOSISOF THE VIRUS THAT CAUSES COVID-19.PERFORMED AT [address] [place] [id number] COVID19 RESULT (NDET) [facility] THIS ASSAY AMPLIFIES AND DETECTSTHE TARG ET RNA USING REAL-TIME PCR.TESTING PERFORMED ON [place] GENEXPERTNEGATIVE 2019_NCOV RT-PCR RESULTS DONOT PRECLUDE 2019_NCOV INFECTION ANDSHOULD NOT BE USED THE SOLE BASISFOR PATIENT MANAGEMENT DECISIONS. FIRST TEST [facility] EM[facility]ED [facility] SYMPTOMATIC [facility] DATE OF SYMPT ONSET [facility] HOSPITALIZED [facility] ICU [facility] CONGREGATE CARE SET [facility] ID Date Data Source [id number] 10/02/2020 11:12:00 AM EST [facility] Name Value Range Interpretation Code Description Data Alma rce(s) Supporting Document(s) SARS coronavirus 2 RNA [Presence] in Res piratory specimen by GAVIN with probe detection NEGATIVE [facility] This lab was ordered by [facility] a nd reported by [facility]. ID Date Data Source [id number] 09/25/2020 05:30:00 PM EST [facility] Name Value Range Interpretation Code Description Data Alma rce(s) Supporting Document(s) SARS coronavirus 2 RNA [Presence] in Res piratory specimen by GAVIN with probe detection NEGATIVE [facility] This lab was ordered by [facility] a nd reported by [facility]. Procedure Social History Code Duration Value Status Description Data Source(s ) Alcohol intake 01/11/2021 12:00:00 AM EDT Ex-drinker (finding) comp leted Ex- drinker (finding) [facility] Tobacco use and exposure 10/03/2020 12:00:00 AM EST Never used co mpleted Never used [facility] Smoking 10/03/2020 12:00:00 AM EST Never smoker completed Never s moker [facility] Vital Signs ID Date Data Source UNK Name Value Range Interpretation Code Description Data Source(s) Diastolic blood pressure 77 mm[Hg] 77 mm[Hg] JAIRON ([facility]) Body height 76 [in_i] 76 [in_i] [facility] ([facility]) Systolic blood pressure 114 mm[Hg] 114 mm[Hg] A [facility] ([facility]) Body height 76 [in_i] 76 [in_i] [facility] ([facility]) Body height 76 [in_i] 76 [in_i] [facility] ([facility]) Body mass index (BMI) [Ratio] 28.9 kg/m2 28.9 k g/m2 [facility] ([facility]) Systolic blood pressure 135 mm[Hg] 135 mm[Hg] A [place] ([facility]) Body weight 3798 [oz_av] 3798 [oz_av] JAIRON ([facility]) Diastolic blood pressure 94 mm[Hg] 94 mm[Hg] [facility] ([facility]) Body height 76 [in_i] 76 [in_i] [facility] ([facility]) Body weight 3798 [oz_av] 3798 [oz_av] [facility] ([facility]) Diastolic blood pressure 94 mm[Hg] 94 mm[Hg] JAIR[facility] ([facility]) Body height 76 [in_i] 76 [in_i] [facility] ([facility]) Body mass index (BMI) [Ratio] 28.9 kg/m2 28.9 k g/m2 [facility] ([facility]) Systolic blood pressure 135 mm[Hg] 135 mm[Hg] A [facility] ([facility]) Diastolic blood pressure 94 mm[Hg] 94 mm[Hg] JAIRON ([facility]) Body height 76 [in_i] 76 [in_i] [facility] ([facility]) Body mass index (BMI) [Ratio] 28.9 kg/m2 28.9 k g/m2 [facility] ([facility]) Systolic blood pressure 135 mm[Hg] 135 mm[Hg] A [facility] ([facility]) Body weight 3798 [oz_av] 3798 [oz_av] JAIRON ([facility]) Diastolic blood pressure 94 mm[Hg] 94 mm[Hg] JAIRON ([facility]) Body height 76 [in_i] 76 [in_i] JAIRON ([facility]) Body mass index (BMI) [Ratio] 28.9 kg/m2 28.9 k g/m2 JAIR[facility] ([facility]) Systolic blood pressure 135 mm[Hg] 135 mm[Hg] A THENA ([facility]) Body weight 3798 [oz_av] 3798 [oz_av] JAIRON ([facility]) Systolic blood pressure 111 mm[Hg] 111 mm[Hg] S [facility] Oxygen saturation in Arterial blood by Pulse oximetry 95 % 95 % [facility] Heart rate 92 /min 92 /min [facility] Body temperature 36.44 Dyana 36.44 Dyana [facility] Respiratory rate 18 /min 18 /min [facility] Diastolic blood pressure 73 mm[Hg] 73 mm[Hg] [facility] Body mass index (BMI) [Ratio] 23.86 kg/m2 23.86 kg/m2 [facility] Body weight 88.905 kg 88.905 kg [facility] ID Date Data Source [id number] 05/15/2021 09:17:21 AM EDT [facility] Name Value Range Interpretation Code Description Data Source(s) WEIGHT RECORDED 234.[address] [facility] Height 76 Inches 076 Inches [facility] ID Date Data Source [id number] 03/30/2021 08:29:22 AM EDT [facility] Name Value Range Interpretation Code Description Data Source(s) WEIGHT RECORDED 230.00 pounds 230.00 pounds [facility] Height 64 Inches 064 Inches [facility] WEIGHT RECORDED 237.00 pounds 237.00 pounds [facility] Height 64 Inches 064 Inches [facility] ID Date Data Source [id number] 02/07/2021 04:16:57 PM EDT [facility] Name Value Range Interpretation Code Description Data Source(s) WEIGHT RECORDED 245.[address] [facility] Height 76 Inches 076 Inches [facility] WEIGHT RECORDED 245.[address] [facility] Height 76 Inches 076 Inches [facility] Patient Treatment Plan of Care Planned Activity Planned Date Details Description Data Source (s) Amlodipine 5 MG Oral Tablet 01/13/2021 12:00:00 AM EDT [facility] Magnesium Hydroxide 80 MG/ML Oral Suspension 01/12/2021 12:00:00 AM EDT [facility] Bisacodyl 10 MG Rectal Suppository 01/11/2021 03:08:01 AM EDT [facility] Mineral Oil 1000 MG/ML Enema 01/11/2021 03:08:01 AM EDT [facility] Amlodipine 10 MG Oral Tablet [place] ([facility]) Amlodipine 10 MG Oral Tablet [place] ([facility]) Amlodipine 5 MG Oral Tablet [place] ([facility]) Tamsulosin hydrochloride 0.4 MG Oral Capsule [facility] Sodium Chloride 1000 MG Oral Tablet [facility] Simvastatin 20 MG Oral Tablet [facility] Losartan Potassium 25 MG Oral Tablet [facility] glimepiride 2 MG Oral Tablet [facility] Finasteride 5 MG Oral Tablet [facility] Atenolol 50 MG Oral Tablet S [facility] Amlodipine 5 MG Oral Tablet [facility]
--- NOTE | 2021-06-14 19:06 | ECGEPIP ---
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
[2021-06-14 19:15] LABS: CK-MB VALUE MASS 2.9 NG/ML (<3.6); CPK CREATINE PHOSPHOKINASE 154 U/L (39-308); MB/CK RELATIVE INDEX 1.88 (< OR =4); TROPONIN I < 0.02 NG/ML (< 0.10)
[2021-06-14 20:06] LABS: RSV AMPLIFICATION NEGATIVE (NEGATIVE)
--- NOTE | 2021-06-14 20:20 | REP ---
INDICATION: Right sided chest tenderness. COMPARISON: None. TECHNIQUE: Four views. FINDINGS: There is a fracture of the right 10th rib. Additional fractures cannot be ruled out due to superimposition on all views IMPRESSION: Right 10th rib fracture possibly more. <Electronically signed by Trevor Santana > 06/14/21 2016
[2021-06-14] MEDS ORDERED: ATOR40TA75 PO (20:42)
[2021-06-14] MEDS ORDERED: APAP325T4 PO (20:42)
[2021-06-14] MEDS ORDERED: HOME MED LIST COMPLETE! XX SCH (20:45)
[2021-06-14 20:50] VITALS: BP 164/92
[2021-06-14] MEDS: HumaLOG INSULIN (NovoLOG) PER UNIT SC SCH (22:14)
[2021-06-14] MEDS: DOCUSATE SODIUM 100MG CAPSULE PO SCH (22:14)
[2021-06-14] MEDS: amLODIPine 5 MG TAB PO SCH (22:15)
[2021-06-15] VITALS (8 sets, daily range): BP systolic 126–165; BP diastolic 76–98
[2021-06-15] MEDS ORDERED: LIDOCAINE 5% (LIDODERM) PATCH TD ONE (00:05)
[2021-06-15 00:32] LABS: CK-MB VALUE MASS 3.1 NG/ML (<3.6); CPK CREATINE PHOSPHOKINASE 134 U/L (39-308); MB/CK RELATIVE INDEX 2.31 (< OR =4); TROPONIN I < 0.02 NG/ML (< 0.10)
[2021-06-15] MEDS: ACETAMINOPHEN TAB 650MG DOSE (2X325MG) PO PRN ×3 (03:32→14:15)
[2021-06-15 06:08] LABS: BASO # 0.1 10^3/uL (0.0-0.2); BASO % 0.8 % (0.0-1.0); EOS # 0.2 10^3/uL (0.0-0.5); EOS % 2.7 % (0.0-3.0); HEMATOCRIT 43.7 % (42.0-52.0); HEMOGLOBIN 14.7 g/dl (13.5-17.5); LYMPH # 1.9 10^3/uL (1.5-5.0); LYMPH % 26.9 % (24.0-44.0); MEAN CORPUSCULAR HEMOGLOBIN 29.4 pg (27.0-33.0); MEAN CORPUSCULAR HGB CONC 33.6 g/dl (32.0-36.5); MEAN CORPUSCULAR VOLUME 87.4 fl (80.0-96.0); MONO # 0.7 10^3/uL (0.0-0.8); MONO % 9.9 % (2.0-8.0); NEUTROPHILS # 4.2 10^3/uL (1.5-8.5); NEUTROPHILS % 59.3 % (36.0-66.0); PLATELET COUNT, AUTOMATED 217 10^3/uL (150-450); WHITE BLOOD COUNT 7.1 10^3/uL (4.0-10.0)
[2021-06-15 06:29] LABS: BLOOD UREA NITROGEN 25 MG/DL (7-18); CALCIUM LEVEL 8.9 MG/DL (8.8-10.2); CARBON DIOXIDE LEVEL 27 MEQ/L (21-32); CHLORIDE LEVEL 99 MEQ/L (98-107); CREATININE FOR GFR 0.84 MG/DL (0.70-1.30); GLOMERULAR FILTRATION RATE > 60.0 (>42); GLUCOSE, FASTING 190 MG/DL (70-100); POTASSIUM SERUM 3.8 MEQ/L (3.5-5.1); SODIUM LEVEL 132 MEQ/L (136-145)
[2021-06-15] MEDS: TAMSULOSIN 0.4 MG CAP PO SCH (09:04)
[2021-06-15] MEDS: ENOXAPARIN 40MG/0.4ML SYRINGE (J1650 PER 10MG) SC SCH (09:05)
[2021-06-15] MEDS: amLODIPine 5 MG TAB PO SCH ×2 (09:05→21:51)
[2021-06-15] MEDS: DOCUSATE SODIUM 100MG CAPSULE PO SCH ×2 (09:05→21:51)
[2021-06-15] MEDS: ATORVASTATIN 20 MG TAB PO SCH (09:05)
[2021-06-15] MEDS: HumaLOG INSULIN (NovoLOG) PER UNIT SC SCH ×4 (09:08→21:00)
[2021-06-15] MEDS ORDERED: traMADol 50 MG TAB PO PRN (11:00)
[2021-06-15] MEDS ORDERED: **NOTE PATIENT COMMENT** MISC XX ONE (12:04)
--- NOTE | 2021-06-15 13:57 | IPNPDOC ---
Text Note Date of Service The patient was seen on 06/15/21. NOTE Subjective: Patient is a 76-year-old male with a PMHx of HTN, DM2, DLP, Syncope, Heart block (s/p PM), who presented to the ER on 05/15 with pain of his chest, abdomen and legs after he had fallen down 5 steps while at home. Patient was admitted to the hospitalist service for further evaluation and treatment. Patient was seen and examined at the bedside. Currently patient denies any nausea, vomiting, diarrhea, or urinary discomfort. Still reports pain of his right side of his chest and abdomen. Objective: Vitals (See below) General: Lying in bed, reporting pain, AAOx3 HEENT: NC, AT CVS: RRR, +S1S2 Chest: Right chest wall tenderness is still appreciated Lungs: Fair air entry b/l, no wheezing, rales or rhonchi Abdomen: Soft, nondistended, tenderness appreciated at right upper quadrant Extremities: No edema Imaging: CT head 06/14: No acute hemorrhage or calvarial fracture. CT C spine 06/14: No acute fracture. CT Chest 06/14: There is no evidence of acute disease. Findings as described above. CT abdomen / pelvis 06/14: There is no significant change compared to the prior exam. There is no evidence of acute disease. XR rib 06/15: There is a fracture of the right 10th rib. Additional fractures cannot be ruled out due to superimposition on all views Assessment and plan: Pre-syncope / Fall - Patient reported that he had lightheadedness and had slid down 5 steps - He remains hemodynamically stable - Lab work benign - Imaging noted above; evidence of at least a right 10th rib fracture - c/w Tylenol; Will add Tramadol - c/w PT / OT; PFS for potential home services on discharge Chest pain - likely 2/2 above (rib fracture) - EKG was reviewed and is consistent with priors - Troponin trend negative x3 - ECHO complete; report pending - Will DC Telemetry Chronic hyponatremia - Patient appears to be chronically hyponatremic since at least 1998 - Will continue to monitor for now Heart block (Unclear etiology) - s/p PM HTN - BP currently is normotensive - c/w Amlodipine NIDDM2 - c/w ISS DLP - c/w Atorvastatin BPH - c/w Tamsulosin DVT prophylaxis - c/w Lovenox Disposition: - c/w PT / OT; awaiting clearance until cleared for DC home with services Hebert GUTIERREZ, I+O Hebert GUTIERREZ I+O Laboratory Tests 06/15/21 05:55 Vital Signs Date Time Temp Pulse Resp B/P (MAP) Pulse Ox O2 Delivery O2 Flow Rate FiO2 06/15/21 11:36 18 Room Air 06/15/21 08:00 97.0 80 126/77 (93) 98 I&O- Last 24 Hours up to 6 AM 06/15/21 06:00 Intake Total 240 ml Output Total 0 ml Balance 240 ml ALFREDITO AHMADI MD Jun 15, 2021 13:57
[2021-06-15] MEDS ORDERED: diphenhydrAMINE CREAM 30GM TOP PRN (16:40)
[2021-06-15] MEDS: LIDOCAINE 5% (LIDODERM) PATCH TD SCH (17:05)
[2021-06-15] MEDS: traMADol 50 MG TAB PO PRN (18:04)
[2021-06-15] MEDS: **NOTE PATIENT COMMENT** MISC XX SCH (21:07)
[2021-06-16] MEDS: traMADol 50 MG TAB PO PRN ×4 (00:11→18:50)
[2021-06-16 05:59] VITALS: BP 136/85
[2021-06-16 07:04] LABS: BASO # 0.1 10^3/uL (0.0-0.2); EOS # 0.2 10^3/uL (0.0-0.5); HEMATOCRIT 42.4 % (42.0-52.0); HEMOGLOBIN 14.2 g/dl (13.5-17.5); LYMPH # 1.7 10^3/uL (1.5-5.0); LYMPH % 28.9 % (24.0-44.0); MEAN CORPUSCULAR HEMOGLOBIN 29.3 pg (27.0-33.0); MEAN CORPUSCULAR HGB CONC 33.5 g/dl (32.0-36.5); MEAN CORPUSCULAR VOLUME 87.6 fl (80.0-96.0); MONO # 0.6 10^3/uL (0.0-0.8); MONO % 10.3 % (2.0-8.0); NEUTROPHILS # 3.4 10^3/uL (1.5-8.5); NEUTROPHILS % 56.3 % (36.0-66.0); PLATELET COUNT, AUTOMATED 226 10^3/uL (150-450); RED BLOOD COUNT 4.84 10^6/uL (4.30-6.10)
[2021-06-16 07:26] LABS: BLOOD UREA NITROGEN 29 MG/DL (7-18); CALCIUM LEVEL 8.7 MG/DL (8.8-10.2); CARBON DIOXIDE LEVEL 26 MEQ/L (21-32); CHLORIDE LEVEL 100 MEQ/L (98-107); CREATININE FOR GFR 0.69 MG/DL (0.70-1.30); GLOMERULAR FILTRATION RATE > 60.0 (>42); GLUCOSE, FASTING 185 MG/DL (70-100); POTASSIUM SERUM 3.5 MEQ/L (3.5-5.1); SODIUM LEVEL 132 MEQ/L (136-145)
[2021-06-16] MEDS: LIDOCAINE 5% (LIDODERM) PATCH TD SCH (08:45)
[2021-06-16] MEDS: ENOXAPARIN 40MG/0.4ML SYRINGE (J1650 PER 10MG) SC SCH (08:45)
[2021-06-16] MEDS: DOCUSATE SODIUM 100MG CAPSULE PO SCH ×2 (08:46→20:55)
[2021-06-16] MEDS: HumaLOG INSULIN (NovoLOG) PER UNIT SC SCH ×4 (08:46→20:55)
[2021-06-16] MEDS: ATORVASTATIN 20 MG TAB PO SCH (08:47)
[2021-06-16] MEDS: TAMSULOSIN 0.4 MG CAP PO SCH (08:49)
[2021-06-16] MEDS: amLODIPine 5 MG TAB PO SCH ×2 (08:49→20:55)
--- NOTE | 2021-06-16 09:46 | IPNPDOC ---
Text Note Date of Service The patient was seen on 06/16/21. NOTE Subjective: Patient is a 76-year-old male with a PMHx of HTN, DM2, DLP, Syncope, Heart block (s/p PM), who presented to the ER on 05/15 with pain of his chest, abdomen and legs after he had fallen down 5 steps while at home. Patient was admitted to the hospitalist service for further evaluation and treatment. Patient was seen and examined at the bedside. Patient was seen sitting up eating breakfast, does not appear to be in any distress. Reports that his right-sided chest wall pain has had improvement. Denies any nausea, vomiting, or diarrhea. Denies any urinary discomfort. Patient did work with physical therapy yesterday. He will continue to work with them until he is cleared for discharge home. Patient is not interested in any rehabilitation. Objective: Vitals (See below) General: Patient is sitting up in bed, appears to be comfortable without any acute distress, is awake, alert, oriented 3 HEENT: NC, AT CVS: +S1S2 Lungs: Air entry appears to be fair bilaterally without any evidence of wheezing, crackles or rhonchi Abdomen: Abdomen remains soft. Mild tenderness at right upper lateral quadrant. No distention Extremities: Lower extremities are without edema Imaging: CT head 06/14: No acute hemorrhage or calvarial fracture. CT C spine 06/14: No acute fracture. CT Chest 06/14: There is no evidence of acute disease. Findings as described above. CT abdomen / pelvis 06/14: There is no significant change compared to the prior exam. There is no evidence of acute disease. XR rib 06/15: There is a fracture of the right 10th rib. Additional fractures cannot be ruled out due to superimposition on all views Assessment and plan: Pre-syncope / Fall - Patient reported that he had lightheadedness and had slid down 5 steps - Hemodynamically stable - Lab work unremarkable - Imaging noted above; evidence of at least a right 10th rib fracture - c/w Tylenol / Tramadol / Incentive spirometry - c/w PT / OT; awaiting clearance - PFS for potential home services on discharge Chest pain - likely 2/2 above (rib fracture) - EKG was reviewed and is consistent with priors - Troponin trend negative x3 - ECHO complete, but report is still pending - s/p Telemetry Chronic hyponatremia - Patient appears to be chronically hyponatremic since at least 1998 - Will continue to monitor for now Heart block (Unclear etiology) - s/p PM HTN - BP currently is normotensive - c/w Amlodipine NIDDM2 - c/w ISS DLP - c/w Atorvastatin BPH - c/w Tamsulosin DVT prophylaxis - c/w Lovenox Disposition: - Will transition to ALC status today - c/w PT / OT; Awaiting clearance for DC home with services Hebert GUTIERREZ, I+O VSHebert I+O Laboratory Tests 06/16/21 06:00 Vital Signs Date Time Temp Pulse Resp B/P (MAP) Pulse Ox O2 Delivery O2 Flow Rate FiO2 06/16/21 08:49 81 126/78 06/16/21 06:43 19 06/16/21 05:59 98.0 94 Room Air I&O- Last 24 Hours up to 6 AM 06/16/21 05:59 Intake Total 1320 ml Output Total 925 ml Balance 395 ml ALFREDITO AHMADI MD Jun 16, 2021 09:46
[2021-06-16 14:00] VITALS: BP 131/87
[2021-06-16] MEDS: ACETAMINOPHEN TAB 650MG DOSE (2X325MG) PO PRN ×2 (17:20→20:56)
--- NOTE | 2021-06-16 17:21 | ECHO ---
ECHOCARDIOGRAM DATE OF PROCEDURE: 06/15/2021 Age: 76 Gender: Male Height: 76 inches Weight: 238 pounds Body Surface Area: 2.39 m2 PATIENT LOCATION: Inpatient, Progressive care unit (PCU), Room 3230. REFERRING PHYSICIAN: Mary Mayers M.D. INDICATION: Chest pain. MEASUREMENTS: 2D Measurements: RV - 4.2 cm LV - 4.3 cm Septum 1.2 cm Posterior wall 1.2 cm Aortic root 3.8 cm LA - 3.9 cm LVEF 70% Doppler Measurements: AV - off angle by more than 10% LVOT - off angle by more than 10% LVOT diameter 2.1 cm MV-E 57, A 88, EA ratio 0.6 Early mitral deceleration time 285 msec E prime medial 5.6 A prime medial 8.1 E prime lateral 8.4 Average E/E prime ratio 8.1/PCWP 12 mmHg PV - 0.76 Pulmonary artery acceleration time 120 msec PASP 28 mmHg IVC - 1.9 cm COMMENTS: Normal sinus rhythm at 77 beats per minute (BPM). First degree arterioventricular (AV) block with right bundle branch block. Somewhat technically challenging study in light of the patient's body habitus, but some diagnostically useful information was still obtained. M-mode and 2-dimensional echocardiography was performed with pulse, continuous wave, color flow and tissue Doppler studies. Borderline concentric left ventricular hypertrophy with hyperkinetic wall motion. Borderline dilated left atrium with grade 1 left ventricular (LV) diastolic dysfunction, but currently normal estimated mean left atrial pressure. Mildly dilated right heart chambers with normal wall motion and current estimated arterial pressure upper limits of normal. Normal inferior vena cava (IVC) size and collapse against an elevated central venous pressure. Normal aortic dimensions. Subtle aortic valvular sclerosis without functional abnormality. Mild mitral annular thickening, but normal leaflet thickness and excursion with no posterior systolic buckling. No functional abnormality. Normal appearing tricuspid valve with very mild insufficiency. Pacing leads can be visualized transversing right heart structures, but no other apparent intracardiac mass or pericardial effusion.
[2021-06-16] MEDS: **NOTE PATIENT COMMENT** MISC XX SCH (20:45)
[2021-06-16 22:00] VITALS: BP 124/77
[2021-06-17] MEDS: traMADol 50 MG TAB PO PRN ×2 (02:34→12:08)
[2021-06-17] MEDS: ACETAMINOPHEN TAB 650MG DOSE (2X325MG) PO PRN ×2 (05:32→16:00)
[2021-06-17 06:00] VITALS: BP 139/92
[2021-06-17 06:49] LABS: BASO # 0.1 10^3/uL (0.0-0.2); EOS # 0.2 10^3/uL (0.0-0.5); EOS % 2.5 % (0.0-3.0); HEMATOCRIT 44.4 % (42.0-52.0); HEMOGLOBIN 14.8 g/dl (13.5-17.5); LYMPH # 1.9 10^3/uL (1.5-5.0); LYMPH % 28.6 % (24.0-44.0); MEAN CORPUSCULAR HEMOGLOBIN 29.2 pg (27.0-33.0); MEAN CORPUSCULAR HGB CONC 33.3 g/dl (32.0-36.5); MEAN CORPUSCULAR VOLUME 87.7 fl (80.0-96.0); MONO # 0.6 10^3/uL (0.0-0.8); MONO % 9.3 % (2.0-8.0); NEUTROPHILS # 3.9 10^3/uL (1.5-8.5); NEUTROPHILS % 58.3 % (36.0-66.0); PLATELET COUNT, AUTOMATED 237 10^3/uL (150-450); RED BLOOD COUNT 5.06 10^6/uL (4.30-6.10); WHITE BLOOD COUNT 6.7 10^3/uL (4.0-10.0)
[2021-06-17 07:12] LABS: BLOOD UREA NITROGEN 26 MG/DL (7-18); CALCIUM LEVEL 8.7 MG/DL (8.8-10.2); CARBON DIOXIDE LEVEL 24 MEQ/L (21-32); CHLORIDE LEVEL 100 MEQ/L (98-107); CREATININE FOR GFR 0.71 MG/DL (0.70-1.30); GLOMERULAR FILTRATION RATE > 60.0 (>42); GLUCOSE, FASTING 209 MG/DL (70-100); MAGNESIUM LEVEL 1.9 MG/DL (1.8-2.4); SODIUM LEVEL 133 MEQ/L (136-145)
[2021-06-17] MEDS ORDERED: SENOKOT S TAB PO PRN (07:55)
[2021-06-17] MEDS ORDERED: MIRALAX *UNIT DOSE* 17GM PACKET PO PRN (07:55)
[2021-06-17] MEDS: LIDOCAINE 5% (LIDODERM) PATCH TD SCH (08:41)
[2021-06-17] MEDS: ENOXAPARIN 40MG/0.4ML SYRINGE (J1650 PER 10MG) SC SCH (08:42)
[2021-06-17] MEDS: DOCUSATE SODIUM 100MG CAPSULE PO SCH ×2 (08:43→20:27)
[2021-06-17] MEDS: ATORVASTATIN 20 MG TAB PO SCH (08:43)
[2021-06-17] MEDS: HumaLOG INSULIN (NovoLOG) PER UNIT SC SCH ×4 (08:43→20:28)
[2021-06-17] MEDS: amLODIPine 5 MG TAB PO SCH ×2 (08:44→20:28)
[2021-06-17] MEDS: TAMSULOSIN 0.4 MG CAP PO SCH (08:44)
[2021-06-17 19:45] VITALS: BP 136/80
[2021-06-17] MEDS: **NOTE PATIENT COMMENT** MISC XX SCH (20:28)
[2021-06-18] MEDS: ACETAMINOPHEN TAB 650MG DOSE (2X325MG) PO PRN (02:15)
[2021-06-18] MEDS: traMADol 50 MG TAB PO PRN (05:17)
[2021-06-18 06:00] VITALS: BP 122/82
[2021-06-18 06:19] LABS: BASO % 0.6 % (0.0-1.0); EOS # 0.2 10^3/uL (0.0-0.5); EOS % 2.5 % (0.0-3.0); HEMATOCRIT 43.7 % (42.0-52.0); HEMOGLOBIN 14.3 g/dl (13.5-17.5); LYMPH # 1.8 10^3/uL (1.5-5.0); LYMPH % 25.7 % (24.0-44.0); MEAN CORPUSCULAR HEMOGLOBIN 28.8 pg (27.0-33.0); MEAN CORPUSCULAR HGB CONC 32.7 g/dl (32.0-36.5); MEAN CORPUSCULAR VOLUME 88.1 fl (80.0-96.0); MONO # 0.6 10^3/uL (0.0-0.8); MONO % 9.1 % (2.0-8.0); NEUTROPHILS # 4.2 10^3/uL (1.5-8.5); NEUTROPHILS % 61.8 % (36.0-66.0); PLATELET COUNT, AUTOMATED 227 10^3/uL (150-450); RED BLOOD COUNT 4.96 10^6/uL (4.30-6.10); WHITE BLOOD COUNT 6.8 10^3/uL (4.0-10.0)
[2021-06-18 06:43] LABS: BLOOD UREA NITROGEN 22 MG/DL (7-18); CALCIUM LEVEL 8.6 MG/DL (8.8-10.2); CARBON DIOXIDE LEVEL 26 MEQ/L (21-32); CHLORIDE LEVEL 99 MEQ/L (98-107); GLOMERULAR FILTRATION RATE > 60.0 (>42); GLUCOSE, FASTING 172 MG/DL (70-100); MAGNESIUM LEVEL 1.8 MG/DL (1.8-2.4); POTASSIUM SERUM 3.8 MEQ/L (3.5-5.1); SODIUM LEVEL 132 MEQ/L (136-145)
[2021-06-18] MEDS: DOCUSATE SODIUM 100MG CAPSULE PO SCH (08:03)
[2021-06-18] MEDS: HumaLOG INSULIN (NovoLOG) PER UNIT SC SCH ×2 (08:04→12:55)
[2021-06-18] MEDS: ATORVASTATIN 20 MG TAB PO SCH (08:04)
[2021-06-18 08:08] VITALS: BP 145/92
[2021-06-18] MEDS: TAMSULOSIN 0.4 MG CAP PO SCH (08:08)
[2021-06-18] MEDS: amLODIPine 5 MG TAB PO SCH (08:08)
[2021-06-18] MEDS: LIDOCAINE 5% (LIDODERM) PATCH TD SCH (08:09)
[2021-06-18] MEDS: ENOXAPARIN 40MG/0.4ML SYRINGE (J1650 PER 10MG) SC SCH (08:09)
[2021-06-18 14:00] VITALS: BP 144/89
--- NOTE | 2021-06-18 14:12 | DS.PDOC ---
Discharge Summary General Date of Admission Jun 14, 2021 at 17:35 Date of Discharge 06/18/2021 Discharge Summary PROCEDURES PERFORMED DURING STAY: [None]. ADMITTING DIAGNOSES / DISCHARGE DIAGNOSES: Pre-syncope Fall with R 10th rib fracture Refused imaging of RLE Chest pain - likely 2/2 above (rib fracture) Chronic hyponatremia Heart block (Unclear etiology) HTN / Diastolic CHF (Grade 1) NIDDM2 DLP BPH DVT prophylaxis COMPLICATIONS/CHIEF COMPLAINT: Fall / Pain HISTORY OF PRESENT ILLNESS: Patient is a 76-year-old male with a PMHx of HTN, DM2, DLP, Syncope, Heart block (s/p PM), who presented to the ER on 05/15 with pain of his chest, abdomen and legs after he had fallen down 5 steps while at home. Patient was admitted to the hospitalist service for further evaluation and treatment. Patient was seen and examined at the bedside. Patient was seen sitting up in chair eating lunch. Patient has reported improvement throughout this hospitalization. Denies any nausea, vomiting, diarrhea, or urinary discomfort. Patient has been working with physical therapy and occupational therapy and has been cleared for discharge home with services. Patient did report pain in his right leg, however has been ambulating. We have ordered imaging of his RLE, but he has refused. HOSPITAL COURSE: Pre-syncope / Fall - Patient reported that he had lightheadedness and had slid down 5 steps - Hemodynamically stable - Lab work unremarkable - Imaging noted above; evidence of at least a right 10th rib fracture - I have recommended the patient get imaging of his right leg; XR hip / femur / knee - patient has refused; patient has verbalized understanding of risks --- These include but are not limited to inability to diagnose any fractures which may lead to further detrimental outcomes including disability and/or ; he states he understands - c/w Tylenol / Tramadol - will continue with short course of tramadol on discharge - c/w Incentive spirometry; advised importance of using incentive spirometry to reduce risk of developing pneumonia - PT and OT have seen patient and have cleared patient for discharge home with services - PFS on board; attempted to discharge patient with home services; however, patient has refused home services - Will have outpatient follow-up with primary care provider within the next 7 days Chest pain - likely 2/2 above (rib fracture) - EKG was reviewed and is consistent with priors - Troponin trend negative x3 - ECHO noted below - s/p Telemetry Chronic hyponatremia - Patient appears to be chronically hyponatremic since at least 1998 - Sodium levels have been relatively consistent throughout this hospitalization; similar to findings dating back to 1998 Heart block (Unclear etiology) - s/p PM HTN - BP currently is normotensive - c/w Amlodipine NIDDM2 - c/w ISS DLP - c/w Atorvastatin BPH - c/w Tamsulosin DVT prophylaxis - c/w Lovenox DISCHARGE MEDICATIONS: Please see below. ALLERGIES: Please see below. PHYSICAL EXAMINATION ON DISCHARGE: Vitals (See below) General: Patient is seen sitting up in a chair, has been ambulating in the room, appeared relatively comfortable, not in any acute distress, is awake and alert, oriented 3 to person, place and time HEENT: Atraumatic and normocephalic CVS: +S1S2 Lungs: Auscultation appears to be fair bilaterally without any discernible crackles, wheezing or rhonchi Abdomen: Abdomen is soft without any distention, tenderness, again is appreciated at right upper lateral quadrant Extremities: Lower extremities do not reveal any evidence of edema LABORATORY DATA: Please see below. IMAGING: ECHO 06/14: Normal sinus rhythm at 77 beats per minute (BPM). First degree arterioventricular (AV) block with right bundle branch block. Somewhat technically challenging study in light of the patient's body habitus, but some diagnostically useful information was still obtained. M-mode and 2-dimensional echocardiography was performed with pulse, continuous wave, color flow and tissue Doppler studies. Borderline concentric left ventricular hypertrophy with hyperkinetic wall motion. Borderline dilated left atrium with grade 1 left ventricular (LV) diastolic dysfunction, but currently normal estimated mean left atrial pressure. Mildly dilated right heart chambers with normal wall motion and current estimated arterial pressure upper limits of normal. Normal inferior vena cava (IVC) size and collapse against an elevated central venous pressure. Normal aortic dimensions. Subtle aortic valvular sclerosis without functional abnormality. Mild mitral annular thickening, but normal leaflet thickness and excursion with no posterior systolic buckling. No functional abnormality. Normal appearing tricuspid valve with very mild insufficiency. Pacing leads can be visualized transversing right heart structures, but no other apparent intracardiac mass or pericardial effusion. CT head 06/14: No acute hemorrhage or calvarial fracture. CT C spine 06/14: No acute fracture. CT Chest 06/14: There is no evidence of acute disease. Findings as described above. CT abdomen / pelvis 06/14: There is no significant change compared to the prior exam. There is no evidence of acute disease. XR rib 06/15: There is a fracture of the right 10th rib. Additional fractures cannot be ruled out due to superimposition on all views ACTIVITY: [As tolerated]. DISCHARGE PLAN: Follow-up with primary care provider within the next 7 days Remain compliant with treatment plan and medications Return to the ER if you experience any problems DISPOSITION: Home with services; - Refused home services - again has verbalized understanding of risks; including but not limited to worsening medical condition / disability / DISCHARGE CONDITION: [Stable]. TIME SPENT ON DISCHARGE: 35 minutes. Vital Signs/I&Os Vital Signs Date Time Temp Pulse Resp B/P (MAP) Pulse Ox O2 Delivery O2 Flow Rate FiO2 06/18/21 08:08 89 145/92 06/18/21 06:00 97.5 18 95 Room Air I&O- Last 24 Hours up to 6 AM 06/18/21 06:00 Intake Total 1300 ml Output Total 1150 ml Balance 150 ml Laboratory Data Labs 24H Laboratory Tests 2 06/17/21 16:43: Bedside Glucose (Misc Panel) 199H 06/17/21 19:46: Bedside Glucose (Misc Panel) 200H 06/18/21 05:36: Immature Granulocyte % (Auto) 0.3, Neutrophils (%) (Auto) 61.8, Lymphocytes (%) (Auto) 25.7, Monocytes (%) (Auto) 9.1H, Eosinophils (%) (Auto) 2.5, Basophils (%) (Auto) 0.6, Neutrophils # (Auto) 4.2, Lymphocytes # (Auto) 1.8, Monocytes # (Auto) 0.6, Eosinophils # (Auto) 0.2, Basophils # (Auto) 0.0, Nucleated Red Blood Cells % (auto) 0.0, Anion Gap 7L, Glomerular Filtration Rate > 60.0, Calcium Level 8.6L, Magnesium Level 1.8 06/18/21 11:38: Bedside Glucose (Misc Panel) 179H CBC/BMP Laboratory Tests 06/18/21 05:36 FSBS Laboratory Tests Test 06/17/21 16:43 06/17/21 19:46 06/18/21 11:38 Range/Units Bedside Glucose (Misc Panel) 199 200 179 83-110 MG/DL Discharge Medications Scheduled Amlodipine Besylate (Amlodipine Besylate) 5 Mg Tablet, 5 MG PO BID Atorvastatin Calcium (Atorvastatin Calcium) 40 Mg Tablet, 40 MG PO DAILY, (Reported) Docusate Sodium (Colace) 100 Mg Capsule, 100 MG PO BID Metformin HCl (Metformin HCl) 500 Mg Tablet, 500 MG PO DAILY, (Reported) Tamsulosin Hcl (Tamsulosin HCl) 0.4 Mg Capsule, 0.4 MG PO DAILY, (Reported) Scheduled PRN Acetaminophen (Acetaminophen) 325 Mg Tablet, 650 MG PO Q4H PRN for PAIN LEVEL 1- 4, (Reported) Tramadol HCl (Tramadol HCl) 50 Mg Tablet, 50 MG PO Q6HP PRN for MODERATE PAIN (PS 5-7) Allergies Coded Allergies: Mushroom (Verified Allergy, Mild, 06/15/21) morphine (Verified Adverse Reaction, Intermediate, HYPOTENSION, 01/30/21) ALFREDITO AHMADI MD Jun 18, 2021 14:12
[2021-06-18] MEDS ORDERED: AMLO1TAB24 PO (14:15)
[2021-06-18] MEDS ORDERED: COLA100C5 PO (14:15)
[2021-06-18] MEDS ORDERED: TRAM50TA2 PO (14:15)
== END 2021-06-18 15:45 | disposition home or self-care (01) | DRG 206 ==
LOC: M ED 11:06 → EDBD 11:06 → M ED INP 17:35 → M PCU 21:36 → M MSPAV 06-15 18:18
PROVIDERS: ADMIT Internal Medicine; ATTEND Internal Medicine
DX: S22.31XA Fracture of one rib, right side, initial encounter for closed fracture (principal); I50.32 Chronic diastolic (congestive) heart failure; I11.0 Hypertensive heart disease with heart failure; E11.9 Type 2 diabetes mellitus without complications; E78.5 Hyperlipidemia, unspecified; Z95.0 Presence of cardiac pacemaker; R55 Syncope and collapse; Z98.1 Arthrodesis status; Z90.49 Acquired absence of other specified parts of digestive tract; I44.0 Atrioventricular block, first degree; N40.0 Benign prostatic hyperplasia without lower urinary tract symptoms; Z20.822 Contact with and (suspected) exposure to COVID-19; Z79.899 Other long term (current) drug therapy; Z88.5 Allergy status to narcotic agent; W10.8XXA Fall (on) (from) other stairs and steps, initial encounter; Y92.009 Unspecified place in unspecified non-institutional (private) residence as the place of occurrence of the external cause

== ENCOUNTER → 2022-09-10 03:55 | Inpatient (IN) | payer MEDICARE, MEDICAID ==
[2021-07-02 15:27] LABS: BASO # 0.1 10^3/uL (0.0-0.2); BASO % 0.8 % (0.0-1.0); EOS # 0.1 10^3/uL (0.0-0.5); EOS % 1.3 % (0.0-3.0); HEMATOCRIT 44.6 % (42.0-52.0); HEMOGLOBIN 15.2 g/dl (13.5-17.5); LYMPH # 2.6 10^3/uL (1.5-5.0); LYMPH % 29.6 % (24.0-44.0); MEAN CORPUSCULAR HGB CONC 34.1 g/dl (32.0-36.5); MEAN CORPUSCULAR VOLUME 85.1 fl (80.0-96.0); MONO # 0.7 10^3/uL (0.0-0.8); MONO % 8.6 % (2.0-8.0); NEUTROPHILS # 5.1 10^3/uL (1.5-8.5); NEUTROPHILS % 59.4 % (36.0-66.0); PLATELET COUNT, AUTOMATED 273 10^3/uL (150-450); RED BLOOD COUNT 5.24 10^6/uL (4.30-6.10); WHITE BLOOD COUNT 8.6 10^3/uL (4.0-10.0)
[2021-07-02 16:03] LABS: ALBUMIN 3.6 GM/DL (3.2-5.2); ALKALINE PHOSPHATASE 134 U/L (45-117); ALT/SGPT 28 U/L (12-78); AST/SGOT 19 U/L (7-37); BILIRUBIN,DIRECT 0.2 MG/DL (0.0-0.2); BILIRUBIN,TOTAL 0.8 MG/DL (0.2-1.0); BLOOD UREA NITROGEN 23 MG/DL (7-18); CALCIUM LEVEL 9.8 MG/DL (8.8-10.2); CARBON DIOXIDE LEVEL 25 MEQ/L (21-32); CHLORIDE LEVEL 95 MEQ/L (98-107); CK-MB VALUE MASS 3.1 NG/ML (<3.6); CPK CREATINE PHOSPHOKINASE 136 U/L (39-308); CREATININE FOR GFR 0.81 MG/DL (0.70-1.30); GLOMERULAR FILTRATION RATE > 60.0 (>42); GLUCOSE, FASTING 150 MG/DL (70-100); LIPASE 109 U/L (73-393); MB/CK RELATIVE INDEX 2.28 (< OR =4); NT-PRO BNP 245 PG/ML (<125); POTASSIUM SERUM 3.9 MEQ/L (3.5-5.1); SODIUM LEVEL 130 MEQ/L (136-145); TOTAL PROTEIN 7.2 GM/DL (6.4-8.2); TROPONIN I < 0.02 NG/ML (< 0.10)
[2021-07-02 16:04] LABS: FREE T4 1.18 NG/DL (0.76-1.46)
[2021-07-02] MEDS: ASPIRIN 81MG CHEW TABLET PO SCH (18:45)
[2021-07-02 19:38] LABS: INR 1.02; PROTHROMBIN TIME 13.9 SECONDS (12.7-14.5)
[2021-07-02 19:39] LABS: PARTIAL THROMBOPLASTIN TIME 33.9 SECONDS (25.9-37.0)
[2021-07-02 19:46] LABS: HEMOGLOBIN A1c 7.9 %
[2021-07-02 19:49] LABS: CHOLESTEROL LEVEL 237 MG/DL (<200); CHOLESTEROL RISK RATIO 4.647 (<5); HDL CHOLESTEROL 51 MG/DL (>40); LDL CHOLESTEROL 143 MG/DL (<100); NON-HDL-C 186 MG/DL; TRIGLYCERIDES LEVEL 217 MG/DL (<150); TROPONIN I < 0.02 NG/ML (< 0.10)
[2021-07-02 20:00] LABS: RSV AMPLIFICATION NEGATIVE (NEGATIVE)
[2021-07-02] MEDS: INSULIN LISPRO (NovoLOG) PER UNIT SC SCH (21:00)
[2021-07-02] MEDS: DOCUSATE SODIUM 100MG CAPSULE PO SCH (21:00)
[2021-07-02] MEDS: amLODIPine 5 MG TAB PO SCH (21:33)
[2021-07-02 22:30] VITALS: BP 143/80
[2021-07-03] MEDS: carisoprodoL 350 MG TAB PO PRN ×2 (01:21→20:06)
[2021-07-03] MEDS: traMADol 50 MG TAB PO PRN ×3 (05:39→23:02)
[2021-07-03 06:00] VITALS: BP 136/66
[2021-07-03 06:51] LABS: HEMATOCRIT 42.6 % (42.0-52.0); HEMOGLOBIN 14.5 g/dl (13.5-17.5); MEAN CORPUSCULAR HEMOGLOBIN 29.4 pg (27.0-33.0); MEAN CORPUSCULAR VOLUME 86.2 fl (80.0-96.0); PLATELET COUNT, AUTOMATED 243 10^3/uL (150-450); RED BLOOD COUNT 4.94 10^6/uL (4.30-6.10); WHITE BLOOD COUNT 6.1 10^3/uL (4.0-10.0)
[2021-07-03 07:08] LABS: BLOOD UREA NITROGEN 29 MG/DL (7-18); CARBON DIOXIDE LEVEL 27 MEQ/L (21-32); CHLORIDE LEVEL 96 MEQ/L (98-107); CREATININE FOR GFR 0.74 MG/DL (0.70-1.30); GLOMERULAR FILTRATION RATE > 60.0 (>42); GLUCOSE, FASTING 194 MG/DL (70-100); POTASSIUM SERUM 3.9 MEQ/L (3.5-5.1); SODIUM LEVEL 131 MEQ/L (136-145); TROPONIN I < 0.02 NG/ML (< 0.10)
[2021-07-03] MEDS: amLODIPine 5 MG TAB PO SCH ×2 (07:59→20:06)
[2021-07-03] MEDS: TAMSULOSIN 0.4 MG CAP PO SCH (08:00)
[2021-07-03] MEDS: ENOXAPARIN 40MG/0.4ML SYRINGE (J1650 PER 10MG) SC SCH (08:00)
[2021-07-03] MEDS: DOCUSATE SODIUM 100MG CAPSULE PO SCH ×2 (08:00→20:06)
[2021-07-03] MEDS: ASPIRIN 81MG CHEW TABLET PO SCH (08:00)
[2021-07-03] MEDS: ATORVASTATIN 20 MG TAB PO SCH (08:00)
[2021-07-03] MEDS: INSULIN LISPRO (NovoLOG) PER UNIT SC SCH ×4 (08:01→20:07)
[2021-07-03 14:00] VITALS: BP 134/80
[2021-07-03] MEDS: NITROGLYCERIN 0.4MG SUBL TABLET SL PRN (17:54)
[2021-07-03 18:00] VITALS: BP 100/72
[2021-07-03 18:15] VITALS: BP 118/70
[2021-07-03 20:00] VITALS: BP 138/81
[2021-07-03 20:30] VITALS: O2SAT 93
[2021-07-03] MEDS: ACETAMINOPHEN TAB 650MG DOSE (2X325MG) PO PRN (21:15)
[2021-07-04 00:28] VITALS: O2SAT 95
[2021-07-04] MEDS: carisoprodoL 350 MG TAB PO PRN ×2 (02:14→15:55)
[2021-07-04] MEDS: traMADol 50 MG TAB PO PRN ×3 (05:55→20:20)
[2021-07-04 06:21] VITALS: BP 140/82
[2021-07-04 06:24] LABS: HEMATOCRIT 40.2 % (42.0-52.0); HEMOGLOBIN 13.6 g/dl (13.5-17.5); MEAN CORPUSCULAR HEMOGLOBIN 29.2 pg (27.0-33.0); MEAN CORPUSCULAR HGB CONC 33.8 g/dl (32.0-36.5); MEAN CORPUSCULAR VOLUME 86.3 fl (80.0-96.0); PLATELET COUNT, AUTOMATED 232 10^3/uL (150-450); RED BLOOD COUNT 4.66 10^6/uL (4.30-6.10); WHITE BLOOD COUNT 7.5 10^3/uL (4.0-10.0)
[2021-07-04 06:31] LABS: BLOOD UREA NITROGEN 27 MG/DL (7-18); CALCIUM LEVEL 8.7 MG/DL (8.8-10.2); CARBON DIOXIDE LEVEL 25 MEQ/L (21-32); CHLORIDE LEVEL 99 MEQ/L (98-107); CREATININE FOR GFR 0.73 MG/DL (0.70-1.30); GLOMERULAR FILTRATION RATE > 60.0 (>42); GLUCOSE, FASTING 205 MG/DL (70-100); POTASSIUM SERUM 4.1 MEQ/L (3.5-5.1); SODIUM LEVEL 131 MEQ/L (136-145)
[2021-07-04] MEDS: ENOXAPARIN 40MG/0.4ML SYRINGE (J1650 PER 10MG) SC SCH (08:01)
[2021-07-04] MEDS: INSULIN LISPRO (NovoLOG) PER UNIT SC SCH ×4 (08:01→20:21)
[2021-07-04] MEDS: TAMSULOSIN 0.4 MG CAP PO SCH (08:01)
[2021-07-04] MEDS: ASPIRIN 81MG CHEW TABLET PO SCH (08:01)
[2021-07-04] MEDS: DOCUSATE SODIUM 100MG CAPSULE PO SCH ×2 (08:01→20:18)
[2021-07-04] MEDS: ATORVASTATIN 20 MG TAB PO SCH (08:01)
[2021-07-04] MEDS: amLODIPine 5 MG TAB PO SCH ×2 (08:02→20:21)
[2021-07-04 08:06] VITALS: O2SAT 95
[2021-07-04 14:00] VITALS: BP 135/81
[2021-07-04] MEDS: MIRALAX *UNIT DOSE* 17GM PACKET PO PRN (15:45)
[2021-07-04 20:00] VITALS: BP 139/78; O2SAT 93
[2021-07-05] MEDS: carisoprodoL 350 MG TAB PO PRN (01:01)
[2021-07-05] MEDS: traMADol 50 MG TAB PO PRN ×3 (02:46→19:01)
[2021-07-05 05:06] VITALS: BP 120/74
[2021-07-05] MEDS: ENOXAPARIN 40MG/0.4ML SYRINGE (J1650 PER 10MG) SC SCH (08:37)
[2021-07-05] MEDS: ASPIRIN 81MG CHEW TABLET PO SCH (08:37)
[2021-07-05] MEDS: INSULIN LISPRO (NovoLOG) PER UNIT SC SCH ×4 (08:37→20:06)
[2021-07-05] MEDS: DOCUSATE SODIUM 100MG CAPSULE PO SCH ×2 (08:37→20:17)
[2021-07-05] MEDS: ATORVASTATIN 20 MG TAB PO SCH (08:38)
[2021-07-05] MEDS: TAMSULOSIN 0.4 MG CAP PO SCH (08:38)
[2021-07-05] MEDS: amLODIPine 5 MG TAB PO SCH ×2 (08:41→20:18)
[2021-07-05 09:00] VITALS: O2SAT 95
[2021-07-05 14:00] VITALS: BP 121/74
[2021-07-05 22:00] VITALS: BP 131/77
[2021-07-05 22:11] VITALS: O2SAT 92
[2021-07-06] MEDS: traMADol 50 MG TAB PO PRN ×3 (01:38→17:25)
[2021-07-06 06:00] VITALS: BP 132/77
[2021-07-06 06:26] LABS: HEMATOCRIT 40.5 % (42.0-52.0); HEMOGLOBIN 13.7 g/dl (13.5-17.5); MEAN CORPUSCULAR HEMOGLOBIN 29.2 pg (27.0-33.0); MEAN CORPUSCULAR HGB CONC 33.8 g/dl (32.0-36.5); MEAN CORPUSCULAR VOLUME 86.4 fl (80.0-96.0); PLATELET COUNT, AUTOMATED 248 10^3/uL (150-450); RED BLOOD COUNT 4.69 10^6/uL (4.30-6.10); WHITE BLOOD COUNT 6.6 10^3/uL (4.0-10.0)
[2021-07-06 06:46] LABS: BLOOD UREA NITROGEN 19 MG/DL (7-18); CALCIUM LEVEL 8.9 MG/DL (8.8-10.2); CARBON DIOXIDE LEVEL 26 MEQ/L (21-32); CHLORIDE LEVEL 95 MEQ/L (98-107); CREATININE FOR GFR 0.56 MG/DL (0.70-1.30); GLOMERULAR FILTRATION RATE > 60.0 (>42); GLUCOSE, FASTING 173 MG/DL (70-100); SODIUM LEVEL 130 MEQ/L (136-145)
[2021-07-06] MEDS: MIRALAX *UNIT DOSE* 17GM PACKET PO PRN (06:50)
[2021-07-06] MEDS: ASPIRIN 81MG CHEW TABLET PO SCH (08:49)
[2021-07-06] MEDS: ENOXAPARIN 40MG/0.4ML SYRINGE (J1650 PER 10MG) SC SCH (08:49)
[2021-07-06] MEDS: DOCUSATE SODIUM 100MG CAPSULE PO SCH ×2 (08:50→20:56)
[2021-07-06] MEDS: INSULIN LISPRO (NovoLOG) PER UNIT SC SCH ×4 (08:50→20:47)
[2021-07-06] MEDS: ATORVASTATIN 20 MG TAB PO SCH (08:50)
[2021-07-06] MEDS: TAMSULOSIN 0.4 MG CAP PO SCH (08:50)
[2021-07-06] MEDS: amLODIPine 5 MG TAB PO SCH ×2 (08:51→20:55)
[2021-07-06 11:13] VITALS: O2SAT 93
[2021-07-06 14:00] VITALS: BP 147/80
[2021-07-06 21:18] VITALS: O2SAT 96
[2021-07-06 22:00] VITALS: BP 145/84
[2021-07-07] MEDS: traMADol 50 MG TAB PO PRN ×4 (01:00→21:09)
[2021-07-07 06:00] VITALS: BP 149/92
[2021-07-07 06:45] LABS: HEMATOCRIT 39.9 % (42.0-52.0); HEMOGLOBIN 13.8 g/dl (13.5-17.5); MEAN CORPUSCULAR HEMOGLOBIN 29.5 pg (27.0-33.0); MEAN CORPUSCULAR HGB CONC 34.6 g/dl (32.0-36.5); MEAN CORPUSCULAR VOLUME 85.3 fl (80.0-96.0); PLATELET COUNT, AUTOMATED 256 10^3/uL (150-450); RED BLOOD COUNT 4.68 10^6/uL (4.30-6.10); WHITE BLOOD COUNT 7.3 10^3/uL (4.0-10.0)
[2021-07-07 07:02] LABS: BLOOD UREA NITROGEN 19 MG/DL (7-18); CARBON DIOXIDE LEVEL 26 MEQ/L (21-32); CHLORIDE LEVEL 96 MEQ/L (98-107); GLOMERULAR FILTRATION RATE > 60.0 (>42); GLUCOSE, FASTING 191 MG/DL (70-100); POTASSIUM SERUM 3.9 MEQ/L (3.5-5.1); SODIUM LEVEL 130 MEQ/L (136-145)
[2021-07-07] MEDS: INSULIN LISPRO (NovoLOG) PER UNIT SC SCH ×4 (08:35→20:05)
[2021-07-07] MEDS: DOCUSATE SODIUM 100MG CAPSULE PO SCH ×2 (08:36→20:08)
[2021-07-07] MEDS: ASPIRIN 81MG CHEW TABLET PO SCH (08:36)
[2021-07-07] MEDS: ATORVASTATIN 20 MG TAB PO SCH (08:36)
[2021-07-07] MEDS: amLODIPine 5 MG TAB PO SCH ×2 (08:36→20:08)
[2021-07-07] MEDS: ENOXAPARIN 40MG/0.4ML SYRINGE (J1650 PER 10MG) SC SCH (08:36)
[2021-07-07] MEDS: TAMSULOSIN 0.4 MG CAP PO SCH (08:37)
[2021-07-07 09:00] VITALS: O2SAT 93
[2021-07-07] MEDS: ACETAMINOPHEN TAB 650MG DOSE (2X325MG) PO PRN (14:42)
[2021-07-07] MEDS: carisoprodoL 350 MG TAB PO PRN (20:11)
[2021-07-08] MEDS: traMADol 50 MG TAB PO PRN ×3 (03:59→19:56)
[2021-07-08 06:00] VITALS: BP 126/80
[2021-07-08 06:33] LABS: HEMATOCRIT 40.9 % (42.0-52.0); HEMOGLOBIN 13.9 g/dl (13.5-17.5); MEAN CORPUSCULAR HEMOGLOBIN 29.1 pg (27.0-33.0); MEAN CORPUSCULAR VOLUME 85.7 fl (80.0-96.0); PLATELET COUNT, AUTOMATED 272 10^3/uL (150-450); RED BLOOD COUNT 4.77 10^6/uL (4.30-6.10); WHITE BLOOD COUNT 6.5 10^3/uL (4.0-10.0)
[2021-07-08 06:50] LABS: BLOOD UREA NITROGEN 20 MG/DL (7-18); CARBON DIOXIDE LEVEL 27 MEQ/L (21-32); CHLORIDE LEVEL 97 MEQ/L (98-107); CREATININE FOR GFR 0.61 MG/DL (0.70-1.30); GLOMERULAR FILTRATION RATE > 60.0 (>42); GLUCOSE, FASTING 169 MG/DL (70-100); SODIUM LEVEL 130 MEQ/L (136-145)
[2021-07-08] MEDS: INSULIN LISPRO (NovoLOG) PER UNIT SC SCH ×4 (08:02→19:54)
[2021-07-08] MEDS: DOCUSATE SODIUM 100MG CAPSULE PO SCH ×2 (08:03→19:56)
[2021-07-08] MEDS: TAMSULOSIN 0.4 MG CAP PO SCH (08:03)
[2021-07-08] MEDS: ENOXAPARIN 40MG/0.4ML SYRINGE (J1650 PER 10MG) SC SCH (08:03)
[2021-07-08] MEDS: ATORVASTATIN 20 MG TAB PO SCH (08:03)
[2021-07-08] MEDS: amLODIPine 5 MG TAB PO SCH ×2 (08:03→19:57)
[2021-07-08] MEDS: ASPIRIN 81MG CHEW TABLET PO SCH (08:03)
[2021-07-09] MEDS: traMADol 50 MG TAB PO PRN ×3 (03:39→20:48)
[2021-07-09 05:56] LABS: HEMATOCRIT 39.4 % (42.0-52.0); HEMOGLOBIN 13.4 g/dl (13.5-17.5); MEAN CORPUSCULAR HEMOGLOBIN 29.4 pg (27.0-33.0); MEAN CORPUSCULAR VOLUME 86.4 fl (80.0-96.0); PLATELET COUNT, AUTOMATED 278 10^3/uL (150-450); RED BLOOD COUNT 4.56 10^6/uL (4.30-6.10); WHITE BLOOD COUNT 5.8 10^3/uL (4.0-10.0)
[2021-07-09 06:00] VITALS: BP 131/81
[2021-07-09 06:24] LABS: BLOOD UREA NITROGEN 20 MG/DL (7-18); CALCIUM LEVEL 8.8 MG/DL (8.8-10.2); CARBON DIOXIDE LEVEL 27 MEQ/L (21-32); CHLORIDE LEVEL 98 MEQ/L (98-107); CREATININE FOR GFR 0.58 MG/DL (0.70-1.30); GLOMERULAR FILTRATION RATE > 60.0 (>42); GLUCOSE, FASTING 171 MG/DL (70-100); SODIUM LEVEL 132 MEQ/L (136-145)
[2021-07-09] MEDS: amLODIPine 5 MG TAB PO SCH ×2 (08:45→20:47)
[2021-07-09] MEDS: ASPIRIN 81MG CHEW TABLET PO SCH (08:45)
[2021-07-09] MEDS: ATORVASTATIN 20 MG TAB PO SCH (08:45)
[2021-07-09] MEDS: TAMSULOSIN 0.4 MG CAP PO SCH (08:45)
[2021-07-09] MEDS: DOCUSATE SODIUM 100MG CAPSULE PO SCH ×2 (08:45→20:48)
[2021-07-09] MEDS: ENOXAPARIN 40MG/0.4ML SYRINGE (J1650 PER 10MG) SC SCH (08:46)
[2021-07-09] MEDS: INSULIN LISPRO (NovoLOG) PER UNIT SC SCH ×4 (08:47→20:53)
[2021-07-09 14:00] VITALS: BP 139/77
[2021-07-10 06:10] VITALS: BP 130/80
[2021-07-10 06:45] LABS: MEAN CORPUSCULAR HEMOGLOBIN 29.4 pg (27.0-33.0); MEAN CORPUSCULAR HGB CONC 34.1 g/dl (32.0-36.5); PLATELET COUNT, AUTOMATED 285 10^3/uL (150-450); RED BLOOD COUNT 4.77 10^6/uL (4.30-6.10); WHITE BLOOD COUNT 6.5 10^3/uL (4.0-10.0)
[2021-07-10 06:56] LABS: BLOOD UREA NITROGEN 22 MG/DL (7-18); CALCIUM LEVEL 9.1 MG/DL (8.8-10.2); CARBON DIOXIDE LEVEL 28 MEQ/L (21-32); CHLORIDE LEVEL 96 MEQ/L (98-107); CREATININE FOR GFR 0.58 MG/DL (0.70-1.30); GLOMERULAR FILTRATION RATE > 60.0 (>42); GLUCOSE, FASTING 180 MG/DL (70-100); POTASSIUM SERUM 4.1 MEQ/L (3.5-5.1); SODIUM LEVEL 132 MEQ/L (136-145)
[2021-07-10] MEDS: INSULIN LISPRO (NovoLOG) PER UNIT SC SCH ×4 (09:29→19:51)
[2021-07-10] MEDS: TAMSULOSIN 0.4 MG CAP PO SCH (09:29)
[2021-07-10] MEDS: DOCUSATE SODIUM 100MG CAPSULE PO SCH ×2 (09:30→20:03)
[2021-07-10] MEDS: ENOXAPARIN 40MG/0.4ML SYRINGE (J1650 PER 10MG) SC SCH (09:30)
[2021-07-10] MEDS: ATORVASTATIN 20 MG TAB PO SCH (09:30)
[2021-07-10] MEDS: ASPIRIN 81MG CHEW TABLET PO SCH (09:30)
[2021-07-10] MEDS: amLODIPine 5 MG TAB PO SCH ×2 (09:30→20:04)
[2021-07-10] MEDS: ACETAMINOPHEN TAB 650MG DOSE (2X325MG) PO PRN ×2 (09:34→17:49)
[2021-07-10] MEDS: SODIUM CHLORIDE NASAL 0.65% SPRAY BTL (OCEAN) SCH (20:15)
[2021-07-11] MEDS: ACETAMINOPHEN TAB 650MG DOSE (2X325MG) PO PRN ×2 (03:20→23:58)
[2021-07-11 06:00] VITALS: BP 141/87
[2021-07-11 08:00] VITALS: BP 135/85
[2021-07-11] MEDS: traMADol 50 MG TAB PO PRN ×3 (08:57→21:04)
[2021-07-11] MEDS: INSULIN LISPRO (NovoLOG) PER UNIT SC SCH ×4 (08:57→21:00)
[2021-07-11] MEDS: TAMSULOSIN 0.4 MG CAP PO SCH (10:25)
[2021-07-11] MEDS: ATORVASTATIN 20 MG TAB PO SCH (10:25)
[2021-07-11] MEDS: DOCUSATE SODIUM 100MG CAPSULE PO SCH ×2 (10:25→21:04)
[2021-07-11] MEDS: ASPIRIN 81MG CHEW TABLET PO SCH (10:25)
[2021-07-11] MEDS: amLODIPine 5 MG TAB PO SCH ×2 (10:26→21:05)
[2021-07-11] MEDS: ENOXAPARIN 40MG/0.4ML SYRINGE (J1650 PER 10MG) SC SCH (10:27)
[2021-07-11] MEDS: SODIUM CHLORIDE NASAL 0.65% SPRAY BTL (OCEAN) SCH ×3 (10:28→21:05)
[2021-07-12] MEDS: INSULIN LISPRO (NovoLOG) PER UNIT SC SCH ×4 (07:30→21:00)
[2021-07-12] MEDS: ATORVASTATIN 20 MG TAB PO SCH (09:37)
[2021-07-12] MEDS: ASPIRIN 81MG CHEW TABLET PO SCH (09:37)
[2021-07-12] MEDS: TAMSULOSIN 0.4 MG CAP PO SCH (09:37)
[2021-07-12] MEDS: SODIUM CHLORIDE NASAL 0.65% SPRAY BTL (OCEAN) SCH ×3 (09:37→21:39)
[2021-07-12] MEDS: ENOXAPARIN 40MG/0.4ML SYRINGE (J1650 PER 10MG) SC SCH (09:37)
[2021-07-12] MEDS: amLODIPine 5 MG TAB PO SCH ×2 (09:38→21:38)
[2021-07-12] MEDS: DOCUSATE SODIUM 100MG CAPSULE PO SCH ×2 (09:38→21:36)
[2021-07-12] MEDS: CARBAMIDE PEROXIDE 6.5% OTIC SOLN 15ML AU SCH ×2 (13:14→21:38)
[2021-07-12] MEDS: QUEtiapine FUMARATE 25 MG TAB PO SCH ×2 (13:14→21:36)
[2021-07-12] MEDS: traMADol 50 MG TAB PO PRN (21:46)
[2021-07-13 04:57] VITALS: BP 130/75
[2021-07-13] MEDS: traMADol 50 MG TAB PO PRN ×2 (05:04→13:38)
[2021-07-13] MEDS: ATORVASTATIN 20 MG TAB PO SCH (08:16)
[2021-07-13] MEDS: QUEtiapine FUMARATE 25 MG TAB PO SCH ×2 (08:16→21:09)
[2021-07-13] MEDS: DOCUSATE SODIUM 100MG CAPSULE PO SCH ×2 (08:18→21:09)
[2021-07-13] MEDS: amLODIPine 5 MG TAB PO SCH ×2 (08:18→21:09)
[2021-07-13] MEDS: ASPIRIN 81MG CHEW TABLET PO SCH (08:18)
[2021-07-13] MEDS: INSULIN LISPRO (NovoLOG) PER UNIT SC SCH ×4 (08:19→21:00)
[2021-07-13] MEDS: TAMSULOSIN 0.4 MG CAP PO SCH (08:19)
[2021-07-13] MEDS: CARBAMIDE PEROXIDE 6.5% OTIC SOLN 15ML AU SCH ×2 (08:20→21:11)
[2021-07-13] MEDS: SODIUM CHLORIDE NASAL 0.65% SPRAY BTL (OCEAN) SCH ×3 (08:20→21:11)
[2021-07-13] MEDS: ENOXAPARIN 40MG/0.4ML SYRINGE (J1650 PER 10MG) SC SCH (08:20)
[2021-07-13] MEDS: ACETAMINOPHEN TAB 650MG DOSE (2X325MG) PO PRN (21:10)
[2021-07-13 21:48] VITALS: BP 129/75
[2021-07-14 06:00] VITALS: BP 133/76
[2021-07-14] MEDS: INSULIN LISPRO (NovoLOG) PER UNIT SC SCH ×4 (08:13→20:38)
[2021-07-14] MEDS: ASPIRIN 81MG CHEW TABLET PO SCH (08:13)
[2021-07-14] MEDS: ENOXAPARIN 40MG/0.4ML SYRINGE (J1650 PER 10MG) SC SCH (08:13)
[2021-07-14] MEDS: ATORVASTATIN 20 MG TAB PO SCH (08:13)
[2021-07-14] MEDS: amLODIPine 5 MG TAB PO SCH ×2 (08:14→20:46)
[2021-07-14] MEDS: QUEtiapine FUMARATE 25 MG TAB PO SCH (08:14)
[2021-07-14] MEDS: TAMSULOSIN 0.4 MG CAP PO SCH (08:14)
[2021-07-14] MEDS: DOCUSATE SODIUM 100MG CAPSULE PO SCH ×2 (08:14→20:44)
[2021-07-14] MEDS: SODIUM CHLORIDE NASAL 0.65% SPRAY BTL (OCEAN) SCH ×3 (08:15→20:44)
[2021-07-14] MEDS: CARBAMIDE PEROXIDE 6.5% OTIC SOLN 15ML AU SCH ×2 (08:15→20:45)
[2021-07-14] MEDS: carisoprodoL 350 MG TAB PO PRN (17:57)
[2021-07-15] MEDS: ACETAMINOPHEN TAB 650MG DOSE (2X325MG) PO PRN ×3 (01:15→19:45)
[2021-07-15 06:00] VITALS: BP 110/64
[2021-07-15] MEDS: TAMSULOSIN 0.4 MG CAP PO SCH (08:21)
[2021-07-15] MEDS: CARBAMIDE PEROXIDE 6.5% OTIC SOLN 15ML AU SCH ×2 (08:21→20:34)
[2021-07-15] MEDS: DOCUSATE SODIUM 100MG CAPSULE PO SCH ×2 (08:21→20:35)
[2021-07-15] MEDS: ASPIRIN 81MG CHEW TABLET PO SCH (08:21)
[2021-07-15] MEDS: INSULIN LISPRO (NovoLOG) PER UNIT SC SCH ×4 (08:21→20:35)
[2021-07-15] MEDS: SODIUM CHLORIDE NASAL 0.65% SPRAY BTL (OCEAN) SCH ×3 (08:22→20:34)
[2021-07-15] MEDS: amLODIPine 5 MG TAB PO SCH ×2 (08:22→20:37)
[2021-07-15] MEDS: ENOXAPARIN 40MG/0.4ML SYRINGE (J1650 PER 10MG) SC SCH (08:22)
[2021-07-15] MEDS: ATORVASTATIN 20 MG TAB PO SCH (08:22)
[2021-07-15 09:42] LABS: BASO # 0.1 10^3/uL (0.0-0.2); BASO % 0.9 % (0.0-1.0); EOS # 0.2 10^3/uL (0.0-0.5); EOS % 3.1 % (0.0-3.0); HEMATOCRIT 45.4 % (42.0-52.0); HEMOGLOBIN 15.2 g/dl (13.5-17.5); LYMPH # 1.5 10^3/uL (1.5-5.0); LYMPH % 27.5 % (24.0-44.0); MEAN CORPUSCULAR HEMOGLOBIN 28.9 pg (27.0-33.0); MEAN CORPUSCULAR HGB CONC 33.5 g/dl (32.0-36.5); MEAN CORPUSCULAR VOLUME 86.3 fl (80.0-96.0); MONO # 0.4 10^3/uL (0.0-0.8); MONO % 7.9 % (2.0-8.0); NEUTROPHILS # 3.4 10^3/uL (1.5-8.5); NEUTROPHILS % 60.2 % (36.0-66.0); PLATELET COUNT, AUTOMATED 298 10^3/uL (150-450); RED BLOOD COUNT 5.26 10^6/uL (4.30-6.10); WHITE BLOOD COUNT 5.6 10^3/uL (4.0-10.0)
[2021-07-15 09:59] LABS: BLOOD UREA NITROGEN 17 MG/DL (7-18); CALCIUM LEVEL 9.5 MG/DL (8.8-10.2); CARBON DIOXIDE LEVEL 27 MEQ/L (21-32); CHLORIDE LEVEL 95 MEQ/L (98-107); CREATININE FOR GFR 0.75 MG/DL (0.70-1.30); GLOMERULAR FILTRATION RATE > 60.0 (>42); GLUCOSE, FASTING 224 MG/DL (70-100); POTASSIUM SERUM 3.6 MEQ/L (3.5-5.1); SODIUM LEVEL 130 MEQ/L (136-145)
[2021-07-15] MEDS: carisoprodoL 350 MG TAB PO PRN (11:07)
[2021-07-16] MEDS: ACETAMINOPHEN TAB 650MG DOSE (2X325MG) PO PRN ×3 (02:33→20:19)
[2021-07-16 06:00] VITALS: BP 138/89
[2021-07-16 06:53] LABS: BASO # 0.1 10^3/uL (0.0-0.2); BASO % 0.9 % (0.0-1.0); EOS # 0.2 10^3/uL (0.0-0.5); EOS % 3.8 % (0.0-3.0); HEMATOCRIT 41.7 % (42.0-52.0); HEMOGLOBIN 14.1 g/dl (13.5-17.5); LYMPH % 35.6 % (24.0-44.0); MEAN CORPUSCULAR HEMOGLOBIN 29.2 pg (27.0-33.0); MEAN CORPUSCULAR HGB CONC 33.8 g/dl (32.0-36.5); MEAN CORPUSCULAR VOLUME 86.3 fl (80.0-96.0); MONO # 0.6 10^3/uL (0.0-0.8); MONO % 10.3 % (2.0-8.0); NEUTROPHILS # 2.7 10^3/uL (1.5-8.5); PLATELET COUNT, AUTOMATED 274 10^3/uL (150-450); RED BLOOD COUNT 4.83 10^6/uL (4.30-6.10); WHITE BLOOD COUNT 5.5 10^3/uL (4.0-10.0)
[2021-07-16 07:11] LABS: BLOOD UREA NITROGEN 20 MG/DL (7-18); CARBON DIOXIDE LEVEL 26 MEQ/L (21-32); CHLORIDE LEVEL 99 MEQ/L (98-107); CREATININE FOR GFR 0.69 MG/DL (0.70-1.30); GLOMERULAR FILTRATION RATE > 60.0 (>42); GLUCOSE, FASTING 175 MG/DL (70-100); POTASSIUM SERUM 3.9 MEQ/L (3.5-5.1); SODIUM LEVEL 133 MEQ/L (136-145)
[2021-07-16] MEDS: ASPIRIN 81MG CHEW TABLET PO SCH (08:38)
[2021-07-16] MEDS: INSULIN LISPRO (NovoLOG) PER UNIT SC SCH ×4 (08:38→21:00)
[2021-07-16] MEDS: DOCUSATE SODIUM 100MG CAPSULE PO SCH ×2 (08:38→20:19)
[2021-07-16] MEDS: ATORVASTATIN 20 MG TAB PO SCH (08:38)
[2021-07-16] MEDS: TAMSULOSIN 0.4 MG CAP PO SCH (08:38)
[2021-07-16] MEDS: ENOXAPARIN 40MG/0.4ML SYRINGE (J1650 PER 10MG) SC SCH (08:39)
[2021-07-16] MEDS: amLODIPine 5 MG TAB PO SCH ×2 (08:39→20:18)
[2021-07-16] MEDS: SODIUM CHLORIDE NASAL 0.65% SPRAY BTL (OCEAN) SCH ×3 (08:39→20:20)
[2021-07-16 14:00] VITALS: BP 135/80
[2021-07-17 06:00] VITALS: BP 131/74
[2021-07-17] MEDS: ACETAMINOPHEN TAB 650MG DOSE (2X325MG) PO PRN ×3 (06:01→20:58)
[2021-07-17 06:20] LABS: BASO # 0.1 10^3/uL (0.0-0.2); BASO % 1.2 % (0.0-1.0); EOS # 0.2 10^3/uL (0.0-0.5); EOS % 3.8 % (0.0-3.0); HEMATOCRIT 41.4 % (42.0-52.0); HEMOGLOBIN 14.1 g/dl (13.5-17.5); LYMPH # 2.2 10^3/uL (1.5-5.0); MEAN CORPUSCULAR HEMOGLOBIN 29.3 pg (27.0-33.0); MEAN CORPUSCULAR HGB CONC 34.1 g/dl (32.0-36.5); MEAN CORPUSCULAR VOLUME 86.1 fl (80.0-96.0); MONO # 0.5 10^3/uL (0.0-0.8); MONO % 8.6 % (2.0-8.0); NEUTROPHILS # 2.7 10^3/uL (1.5-8.5); NEUTROPHILS % 47.1 % (36.0-66.0); PLATELET COUNT, AUTOMATED 257 10^3/uL (150-450); RED BLOOD COUNT 4.81 10^6/uL (4.30-6.10); WHITE BLOOD COUNT 5.7 10^3/uL (4.0-10.0)
[2021-07-17 06:41] LABS: BLOOD UREA NITROGEN 20 MG/DL (7-18); CALCIUM LEVEL 9.3 MG/DL (8.8-10.2); CARBON DIOXIDE LEVEL 26 MEQ/L (21-32); CHLORIDE LEVEL 99 MEQ/L (98-107); CREATININE FOR GFR 0.66 MG/DL (0.70-1.30); GLOMERULAR FILTRATION RATE > 60.0 (>42); GLUCOSE, FASTING 164 MG/DL (70-100); MAGNESIUM LEVEL 2.1 MG/DL (1.8-2.4); POTASSIUM SERUM 3.7 MEQ/L (3.5-5.1); SODIUM LEVEL 133 MEQ/L (136-145)
[2021-07-17] MEDS: TAMSULOSIN 0.4 MG CAP PO SCH (08:41)
[2021-07-17] MEDS: ENOXAPARIN 40MG/0.4ML SYRINGE (J1650 PER 10MG) SC SCH (08:41)
[2021-07-17] MEDS: ATORVASTATIN 20 MG TAB PO SCH (08:41)
[2021-07-17] MEDS: ASPIRIN 81MG CHEW TABLET PO SCH (08:41)
[2021-07-17] MEDS: INSULIN LISPRO (NovoLOG) PER UNIT SC SCH ×4 (08:42→21:00)
[2021-07-17] MEDS: amLODIPine 5 MG TAB PO SCH ×2 (08:42→21:00)
[2021-07-17] MEDS: SODIUM CHLORIDE NASAL 0.65% SPRAY BTL (OCEAN) SCH ×3 (08:42→20:58)
[2021-07-17] MEDS: DOCUSATE SODIUM 100MG CAPSULE PO SCH ×2 (08:42→20:58)
[2021-07-17 14:00] VITALS: BP 140/83
[2021-07-18] MEDS: ACETAMINOPHEN TAB 650MG DOSE (2X325MG) PO PRN ×3 (03:17→20:22)
[2021-07-18 05:44] VITALS: BP 133/73
[2021-07-18 06:45] LABS: BASO % 0.7 % (0.0-1.0); EOS # 0.2 10^3/uL (0.0-0.5); EOS % 4.1 % (0.0-3.0); HEMATOCRIT 41.9 % (42.0-52.0); LYMPH # 2.1 10^3/uL (1.5-5.0); LYMPH % 35.4 % (24.0-44.0); MEAN CORPUSCULAR HEMOGLOBIN 28.9 pg (27.0-33.0); MEAN CORPUSCULAR HGB CONC 33.4 g/dl (32.0-36.5); MEAN CORPUSCULAR VOLUME 86.4 fl (80.0-96.0); MONO # 0.5 10^3/uL (0.0-0.8); MONO % 8.5 % (2.0-8.0); NEUTROPHILS % 51.1 % (36.0-66.0); RED BLOOD COUNT 4.85 10^6/uL (4.30-6.10); WHITE BLOOD COUNT 5.9 10^3/uL (4.0-10.0)
[2021-07-18 07:00] LABS: BLOOD UREA NITROGEN 18 MG/DL (7-18); CALCIUM LEVEL 8.9 MG/DL (8.8-10.2); CARBON DIOXIDE LEVEL 24 MEQ/L (21-32); CHLORIDE LEVEL 101 MEQ/L (98-107); CREATININE FOR GFR 0.59 MG/DL (0.70-1.30); GLOMERULAR FILTRATION RATE > 60.0 (>42); GLUCOSE, FASTING 165 MG/DL (70-100); MAGNESIUM LEVEL 1.8 MG/DL (1.8-2.4); POTASSIUM SERUM 3.7 MEQ/L (3.5-5.1); SODIUM LEVEL 131 MEQ/L (136-145)
[2021-07-18 07:20] LABS: PLATELET COUNT, AUTOMATED 259 10^3/uL (150-450)
[2021-07-18] MEDS: ASPIRIN 81MG CHEW TABLET PO SCH (10:02)
[2021-07-18] MEDS: INSULIN LISPRO (NovoLOG) PER UNIT SC SCH ×4 (10:02→21:00)
[2021-07-18] MEDS: TAMSULOSIN 0.4 MG CAP PO SCH (10:03)
[2021-07-18] MEDS: ATORVASTATIN 20 MG TAB PO SCH (10:03)
[2021-07-18] MEDS: amLODIPine 5 MG TAB PO SCH ×2 (10:04→20:21)
[2021-07-18] MEDS: DOCUSATE SODIUM 100MG CAPSULE PO SCH ×2 (10:04→20:21)
[2021-07-18] MEDS: ENOXAPARIN 40MG/0.4ML SYRINGE (J1650 PER 10MG) SC SCH (10:05)
[2021-07-18] MEDS: SODIUM CHLORIDE NASAL 0.65% SPRAY BTL (OCEAN) SCH ×3 (10:05→20:20)
[2021-07-18] MEDS: guaiFENesin 200 MG TAB PO PRN (17:51)
[2021-07-19] MEDS: ACETAMINOPHEN TAB 650MG DOSE (2X325MG) PO PRN ×3 (03:03→20:16)
[2021-07-19 06:00] VITALS: BP 136/81
[2021-07-19 06:37] LABS: BASO # 0.1 10^3/uL (0.0-0.2); BASO % 0.8 % (0.0-1.0); EOS # 0.2 10^3/uL (0.0-0.5); HEMATOCRIT 41.3 % (42.0-52.0); HEMOGLOBIN 13.9 g/dl (13.5-17.5); LYMPH # 2.1 10^3/uL (1.5-5.0); LYMPH % 34.4 % (24.0-44.0); MEAN CORPUSCULAR HEMOGLOBIN 29.1 pg (27.0-33.0); MEAN CORPUSCULAR HGB CONC 33.7 g/dl (32.0-36.5); MEAN CORPUSCULAR VOLUME 86.6 fl (80.0-96.0); MONO # 0.6 10^3/uL (0.0-0.8); MONO % 9.2 % (2.0-8.0); NEUTROPHILS # 3.1 10^3/uL (1.5-8.5); NEUTROPHILS % 52.3 % (36.0-66.0); PLATELET COUNT, AUTOMATED 268 10^3/uL (150-450); RED BLOOD COUNT 4.77 10^6/uL (4.30-6.10)
[2021-07-19 07:07] LABS: BLOOD UREA NITROGEN 19 MG/DL (7-18); CALCIUM LEVEL 8.6 MG/DL (8.8-10.2); CARBON DIOXIDE LEVEL 26 MEQ/L (21-32); CHLORIDE LEVEL 98 MEQ/L (98-107); CREATININE FOR GFR 0.58 MG/DL (0.70-1.30); GLOMERULAR FILTRATION RATE > 60.0 (>42); GLUCOSE, FASTING 149 MG/DL (70-100); POTASSIUM SERUM 3.9 MEQ/L (3.5-5.1); SODIUM LEVEL 131 MEQ/L (136-145)
[2021-07-19] MEDS: INSULIN LISPRO (NovoLOG) PER UNIT SC SCH ×4 (08:53→21:00)
[2021-07-19] MEDS: ATORVASTATIN 20 MG TAB PO SCH (08:53)
[2021-07-19] MEDS: ASPIRIN 81MG CHEW TABLET PO SCH (08:53)
[2021-07-19] MEDS: ENOXAPARIN 40MG/0.4ML SYRINGE (J1650 PER 10MG) SC SCH (08:53)
[2021-07-19] MEDS: DOCUSATE SODIUM 100MG CAPSULE PO SCH ×2 (08:53→20:14)
[2021-07-19] MEDS: TAMSULOSIN 0.4 MG CAP PO SCH (08:54)
[2021-07-19] MEDS: amLODIPine 5 MG TAB PO SCH ×2 (08:54→20:14)
[2021-07-19] MEDS: SODIUM CHLORIDE NASAL 0.65% SPRAY BTL (OCEAN) SCH ×3 (08:54→20:14)
[2021-07-19] MEDS: guaiFENesin 200 MG TAB PO PRN (14:53)
[2021-07-20 05:55] VITALS: BP 163/91
[2021-07-20 06:27] LABS: BASO # 0.1 10^3/uL (0.0-0.2); BASO % 1.1 % (0.0-1.0); EOS # 0.2 10^3/uL (0.0-0.5); EOS % 3.1 % (0.0-3.0); HEMATOCRIT 42.6 % (42.0-52.0); HEMOGLOBIN 14.1 g/dl (13.5-17.5); LYMPH # 1.9 10^3/uL (1.5-5.0); LYMPH % 34.7 % (24.0-44.0); MEAN CORPUSCULAR HEMOGLOBIN 28.8 pg (27.0-33.0); MEAN CORPUSCULAR HGB CONC 33.1 g/dl (32.0-36.5); MEAN CORPUSCULAR VOLUME 87.1 fl (80.0-96.0); MONO # 0.5 10^3/uL (0.0-0.8); NEUTROPHILS # 2.9 10^3/uL (1.5-8.5); NEUTROPHILS % 51.7 % (36.0-66.0); PLATELET COUNT, AUTOMATED 270 10^3/uL (150-450); RED BLOOD COUNT 4.89 10^6/uL (4.30-6.10); WHITE BLOOD COUNT 5.5 10^3/uL (4.0-10.0)
[2021-07-20 06:51] LABS: BLOOD UREA NITROGEN 21 MG/DL (7-18); CALCIUM LEVEL 8.7 MG/DL (8.8-10.2); CARBON DIOXIDE LEVEL 28 MEQ/L (21-32); CHLORIDE LEVEL 98 MEQ/L (98-107); CREATININE FOR GFR 0.57 MG/DL (0.70-1.30); GLOMERULAR FILTRATION RATE > 60.0 (>42); GLUCOSE, FASTING 162 MG/DL (70-100); MAGNESIUM LEVEL 1.7 MG/DL (1.8-2.4); SODIUM LEVEL 132 MEQ/L (136-145)
[2021-07-20] MEDS: DOCUSATE SODIUM 100MG CAPSULE PO SCH ×2 (08:24→20:05)
[2021-07-20] MEDS: ATORVASTATIN 20 MG TAB PO SCH (08:24)
[2021-07-20] MEDS: TAMSULOSIN 0.4 MG CAP PO SCH (08:24)
[2021-07-20] MEDS: ASPIRIN 81MG CHEW TABLET PO SCH (08:24)
[2021-07-20] MEDS: amLODIPine 5 MG TAB PO SCH ×2 (08:24→20:05)
[2021-07-20] MEDS: SODIUM CHLORIDE NASAL 0.65% SPRAY BTL (OCEAN) SCH ×3 (08:24→20:06)
[2021-07-20] MEDS: INSULIN LISPRO (NovoLOG) PER UNIT SC SCH ×4 (08:25→20:05)
[2021-07-20] MEDS: ENOXAPARIN 40MG/0.4ML SYRINGE (J1650 PER 10MG) SC SCH (08:25)
[2021-07-20] MEDS: guaiFENesin 200 MG TAB PO PRN ×2 (08:33→17:35)
[2021-07-20] MEDS: ACETAMINOPHEN TAB 650MG DOSE (2X325MG) PO PRN ×2 (15:13→20:05)
[2021-07-20 19:50] VITALS: BP 123/80
[2021-07-21] MEDS: guaiFENesin 200 MG TAB PO PRN ×3 (03:14→18:38)
[2021-07-21] MEDS: ACETAMINOPHEN TAB 650MG DOSE (2X325MG) PO PRN ×3 (03:14→22:36)
[2021-07-21 06:00] VITALS: BP 143/84
[2021-07-21 06:48] LABS: BASO # 0.1 10^3/uL (0.0-0.2); BASO % 1.1 % (0.0-1.0); EOS # 0.2 10^3/uL (0.0-0.5); EOS % 3.2 % (0.0-3.0); HEMATOCRIT 42.5 % (42.0-52.0); HEMOGLOBIN 14.2 g/dl (13.5-17.5); LYMPH # 1.9 10^3/uL (1.5-5.0); LYMPH % 34.7 % (24.0-44.0); MEAN CORPUSCULAR HEMOGLOBIN 28.7 pg (27.0-33.0); MEAN CORPUSCULAR HGB CONC 33.4 g/dl (32.0-36.5); MEAN CORPUSCULAR VOLUME 85.9 fl (80.0-96.0); MONO # 0.5 10^3/uL (0.0-0.8); MONO % 9.7 % (2.0-8.0); NEUTROPHILS # 2.7 10^3/uL (1.5-8.5); NEUTROPHILS % 51.1 % (36.0-66.0); PLATELET COUNT, AUTOMATED 258 10^3/uL (150-450); RED BLOOD COUNT 4.95 10^6/uL (4.30-6.10); WHITE BLOOD COUNT 5.4 10^3/uL (4.0-10.0)
[2021-07-21 07:19] LABS: BLOOD UREA NITROGEN 20 MG/DL (7-18); CALCIUM LEVEL 9.2 MG/DL (8.8-10.2); CARBON DIOXIDE LEVEL 26 MEQ/L (21-32); CHLORIDE LEVEL 97 MEQ/L (98-107); CREATININE FOR GFR 0.63 MG/DL (0.70-1.30); GLOMERULAR FILTRATION RATE > 60.0 (>42); GLUCOSE, FASTING 157 MG/DL (70-100); MAGNESIUM LEVEL 1.9 MG/DL (1.8-2.4); POTASSIUM SERUM 3.5 MEQ/L (3.5-5.1); SODIUM LEVEL 132 MEQ/L (136-145)
[2021-07-21] MEDS: INSULIN LISPRO (NovoLOG) PER UNIT SC SCH ×4 (07:58→20:54)
[2021-07-21] MEDS: ASPIRIN 81MG CHEW TABLET PO SCH (07:58)
[2021-07-21] MEDS: DOCUSATE SODIUM 100MG CAPSULE PO SCH ×2 (07:59→20:53)
[2021-07-21] MEDS: TAMSULOSIN 0.4 MG CAP PO SCH (07:59)
[2021-07-21] MEDS: ATORVASTATIN 20 MG TAB PO SCH (07:59)
[2021-07-21] MEDS: amLODIPine 5 MG TAB PO SCH ×2 (07:59→20:53)
[2021-07-21] MEDS: SODIUM CHLORIDE NASAL 0.65% SPRAY BTL (OCEAN) SCH ×3 (08:00→20:56)
[2021-07-21] MEDS: ENOXAPARIN 40MG/0.4ML SYRINGE (J1650 PER 10MG) SC SCH (08:00)
[2021-07-22] MEDS: guaiFENesin 200 MG TAB PO PRN ×3 (02:09→18:16)
[2021-07-22 06:00] VITALS: BP 130/77
[2021-07-22 06:56] LABS: BASO # 0.1 10^3/uL (0.0-0.2); BASO % 0.7 % (0.0-1.0); EOS # 0.2 10^3/uL (0.0-0.5); EOS % 3.1 % (0.0-3.0); HEMATOCRIT 39.3 % (42.0-52.0); HEMOGLOBIN 13.3 g/dl (13.5-17.5); LYMPH # 1.9 10^3/uL (1.5-5.0); LYMPH % 28.3 % (24.0-44.0); MEAN CORPUSCULAR HEMOGLOBIN 29.1 pg (27.0-33.0); MEAN CORPUSCULAR HGB CONC 33.8 g/dl (32.0-36.5); MONO # 0.5 10^3/uL (0.0-0.8); MONO % 7.8 % (2.0-8.0); NEUTROPHILS # 4.1 10^3/uL (1.5-8.5); NEUTROPHILS % 59.8 % (36.0-66.0); PLATELET COUNT, AUTOMATED 263 10^3/uL (150-450); RED BLOOD COUNT 4.57 10^6/uL (4.30-6.10); WHITE BLOOD COUNT 6.8 10^3/uL (4.0-10.0)
[2021-07-22 07:12] LABS: BLOOD UREA NITROGEN 19 MG/DL (7-18); CALCIUM LEVEL 8.7 MG/DL (8.8-10.2); CARBON DIOXIDE LEVEL 24 MEQ/L (21-32); CHLORIDE LEVEL 99 MEQ/L (98-107); CREATININE FOR GFR 0.56 MG/DL (0.70-1.30); GLOMERULAR FILTRATION RATE > 60.0 (>42); GLUCOSE, FASTING 163 MG/DL (70-100); MAGNESIUM LEVEL 1.8 MG/DL (1.8-2.4); POTASSIUM SERUM 3.7 MEQ/L (3.5-5.1); SODIUM LEVEL 132 MEQ/L (136-145)
[2021-07-22] MEDS: INSULIN LISPRO (NovoLOG) PER UNIT SC SCH ×4 (07:53→20:04)
[2021-07-22] MEDS: DOCUSATE SODIUM 100MG CAPSULE PO SCH ×2 (08:53→20:02)
[2021-07-22] MEDS: ASPIRIN 81MG CHEW TABLET PO SCH (08:53)
[2021-07-22] MEDS: ENOXAPARIN 40MG/0.4ML SYRINGE (J1650 PER 10MG) SC SCH (08:54)
[2021-07-22] MEDS: TAMSULOSIN 0.4 MG CAP PO SCH (08:54)
[2021-07-22] MEDS: amLODIPine 5 MG TAB PO SCH ×2 (08:54→20:03)
[2021-07-22] MEDS: ACETAMINOPHEN TAB 650MG DOSE (2X325MG) PO PRN ×2 (08:54→18:16)
[2021-07-22] MEDS: ATORVASTATIN 20 MG TAB PO SCH (08:54)
[2021-07-22] MEDS: SODIUM CHLORIDE NASAL 0.65% SPRAY BTL (OCEAN) SCH ×3 (08:54→20:04)
[2021-07-23] MEDS: guaiFENesin 200 MG TAB PO PRN ×2 (04:41→20:21)
[2021-07-23] MEDS: ACETAMINOPHEN TAB 650MG DOSE (2X325MG) PO PRN ×3 (04:41→20:21)
[2021-07-23 06:00] VITALS: BP 155/77
[2021-07-23 06:25] VITALS: BP 131/81
[2021-07-23] MEDS: ENOXAPARIN 40MG/0.4ML SYRINGE (J1650 PER 10MG) SC SCH (08:05)
[2021-07-23] MEDS: DOCUSATE SODIUM 100MG CAPSULE PO SCH ×2 (08:07→20:21)
[2021-07-23] MEDS: TAMSULOSIN 0.4 MG CAP PO SCH (08:07)
[2021-07-23] MEDS: ATORVASTATIN 20 MG TAB PO SCH (08:07)
[2021-07-23] MEDS: ASPIRIN 81MG CHEW TABLET PO SCH (08:07)
[2021-07-23] MEDS: SODIUM CHLORIDE NASAL 0.65% SPRAY BTL (OCEAN) SCH ×3 (08:09→20:21)
[2021-07-23] MEDS: INSULIN LISPRO (NovoLOG) PER UNIT SC SCH ×4 (08:09→20:23)
[2021-07-23] MEDS: amLODIPine 5 MG TAB PO SCH ×2 (08:11→20:23)
[2021-07-23 17:50] VITALS: BP 131/81
[2021-07-23 18:20] VITALS: BP 131/81
[2021-07-23 18:30] VITALS: BP 108/66
[2021-07-23] MEDS: NITROGLYCERIN 0.4MG SUBL TABLET SL PRN (18:52)
[2021-07-23 19:17] VITALS: BP 108/66
[2021-07-24] MEDS: guaiFENesin 200 MG TAB PO PRN ×2 (05:47→20:07)
[2021-07-24] MEDS: ACETAMINOPHEN TAB 650MG DOSE (2X325MG) PO PRN ×2 (05:47→20:10)
[2021-07-24 06:00] VITALS: BP 142/87
[2021-07-24] MEDS: ATORVASTATIN 20 MG TAB PO SCH (08:45)
[2021-07-24] MEDS: DOCUSATE SODIUM 100MG CAPSULE PO SCH ×2 (08:45→20:07)
[2021-07-24] MEDS: TAMSULOSIN 0.4 MG CAP PO SCH (08:45)
[2021-07-24] MEDS: ASPIRIN 81MG CHEW TABLET PO SCH (08:45)
[2021-07-24] MEDS: amLODIPine 5 MG TAB PO SCH ×2 (08:45→20:08)
[2021-07-24] MEDS: INSULIN LISPRO (NovoLOG) PER UNIT SC SCH ×4 (08:45→20:08)
[2021-07-24] MEDS: ENOXAPARIN 40MG/0.4ML SYRINGE (J1650 PER 10MG) SC SCH (08:46)
[2021-07-24] MEDS: SODIUM CHLORIDE NASAL 0.65% SPRAY BTL (OCEAN) SCH ×3 (08:46→20:08)
[2021-07-24 14:00] VITALS: BP 134/81
[2021-07-25] MEDS: ACETAMINOPHEN TAB 650MG DOSE (2X325MG) PO PRN ×2 (02:42→17:49)
[2021-07-25 06:00] VITALS: BP 138/88
[2021-07-25] MEDS: INSULIN LISPRO (NovoLOG) PER UNIT SC SCH ×4 (08:45→20:33)
[2021-07-25] MEDS: amLODIPine 5 MG TAB PO SCH ×2 (08:46→20:31)
[2021-07-25] MEDS: DOCUSATE SODIUM 100MG CAPSULE PO SCH ×2 (08:46→20:30)
[2021-07-25] MEDS: ASPIRIN 81MG CHEW TABLET PO SCH (08:46)
[2021-07-25] MEDS: ENOXAPARIN 40MG/0.4ML SYRINGE (J1650 PER 10MG) SC SCH (08:46)
[2021-07-25] MEDS: TAMSULOSIN 0.4 MG CAP PO SCH (08:46)
[2021-07-25] MEDS: ATORVASTATIN 20 MG TAB PO SCH (08:46)
[2021-07-25] MEDS: SODIUM CHLORIDE NASAL 0.65% SPRAY BTL (OCEAN) SCH ×3 (08:47→20:31)
[2021-07-25] MEDS: QUEtiapine FUMARATE 12.5 MG HALF-TAB PO SCH ×2 (14:21→20:31)
[2021-07-25] MEDS: NITROGLYCERIN 0.4MG SUBL TABLET SL PRN (15:09)
[2021-07-25 15:11] VITALS: BP 140/90
[2021-07-25 15:17] VITALS: BP 101/64
[2021-07-25 15:38] VITALS: BP 108/59
[2021-07-25 16:21] LABS: CK-MB VALUE MASS 1.2 NG/ML (<3.6); MB/CK RELATIVE INDEX 1.6 (< OR =4)
[2021-07-25 17:47] VITALS: BP 129/75
[2021-07-25 20:21] VITALS: BP 123/74
[2021-07-25] MEDS: carisoprodoL 350 MG TAB PO PRN (20:31)
[2021-07-25] MEDS: guaiFENesin 200 MG TAB PO PRN (20:31)
[2021-07-26] MEDS: ACETAMINOPHEN TAB 650MG DOSE (2X325MG) PO PRN ×2 (03:28→20:04)
[2021-07-26] MEDS: carisoprodoL 350 MG TAB PO PRN (03:28)
[2021-07-26 06:00] VITALS: BP_SYST 127; BP_DIAS 56; BP_DIAS 77
[2021-07-26] MEDS: ASPIRIN 81MG CHEW TABLET PO SCH (08:30)
[2021-07-26] MEDS: DOCUSATE SODIUM 100MG CAPSULE PO SCH ×2 (08:30→20:03)
[2021-07-26] MEDS: INSULIN LISPRO (NovoLOG) PER UNIT SC SCH ×4 (08:30→20:06)
[2021-07-26] MEDS: amLODIPine 5 MG TAB PO SCH ×2 (08:31→20:06)
[2021-07-26] MEDS: SODIUM CHLORIDE NASAL 0.65% SPRAY BTL (OCEAN) SCH ×3 (08:31→20:06)
[2021-07-26] MEDS: QUEtiapine FUMARATE 12.5 MG HALF-TAB PO SCH ×2 (08:31→20:03)
[2021-07-26] MEDS: ATORVASTATIN 20 MG TAB PO SCH (08:31)
[2021-07-26] MEDS: ENOXAPARIN 40MG/0.4ML SYRINGE (J1650 PER 10MG) SC SCH (08:31)
[2021-07-26] MEDS: TAMSULOSIN 0.4 MG CAP PO SCH (08:31)
[2021-07-26] MEDS: guaiFENesin 200 MG TAB PO PRN (20:03)
[2021-07-27] MEDS: ACETAMINOPHEN TAB 650MG DOSE (2X325MG) PO PRN ×2 (04:25→20:23)
[2021-07-27 06:00] VITALS: BP 144/91
[2021-07-27 06:12] LABS: MEAN CORPUSCULAR HEMOGLOBIN 28.8 pg (27.0-33.0); MEAN CORPUSCULAR HGB CONC 33.3 g/dl (32.0-36.5); MEAN CORPUSCULAR VOLUME 86.4 fl (80.0-96.0); PLATELET COUNT, AUTOMATED 269 10^3/uL (150-450); RED BLOOD COUNT 4.86 10^6/uL (4.30-6.10); WHITE BLOOD COUNT 5.8 10^3/uL (4.0-10.0)
[2021-07-27 06:39] LABS: ALBUMIN 3.2 GM/DL (3.2-5.2); ALKALINE PHOSPHATASE 131 U/L (45-117); ALT/SGPT 28 U/L (12-78); AST/SGOT 15 U/L (7-37); BILIRUBIN,TOTAL 0.4 MG/DL (0.2-1.0); BLOOD UREA NITROGEN 19 MG/DL (7-18); CARBON DIOXIDE LEVEL 27 MEQ/L (21-32); CHLORIDE LEVEL 99 MEQ/L (98-107); CREATININE FOR GFR 0.62 MG/DL (0.70-1.30); GLOMERULAR FILTRATION RATE > 60.0 (>42); GLUCOSE, FASTING 156 MG/DL (70-100); POTASSIUM SERUM 3.6 MEQ/L (3.5-5.1); SODIUM LEVEL 132 MEQ/L (136-145)
[2021-07-27] MEDS: INSULIN LISPRO (NovoLOG) PER UNIT SC SCH ×4 (08:32→20:28)
[2021-07-27] MEDS: QUEtiapine FUMARATE 12.5 MG HALF-TAB PO SCH ×2 (08:33→20:22)
[2021-07-27] MEDS: ENOXAPARIN 40MG/0.4ML SYRINGE (J1650 PER 10MG) SC SCH (08:33)
[2021-07-27] MEDS: ATORVASTATIN 20 MG TAB PO SCH (08:34)
[2021-07-27] MEDS: DOCUSATE SODIUM 100MG CAPSULE PO SCH ×2 (08:34→20:21)
[2021-07-27] MEDS: ASPIRIN 81MG CHEW TABLET PO SCH (08:34)
[2021-07-27] MEDS: TAMSULOSIN 0.4 MG CAP PO SCH (08:35)
[2021-07-27] MEDS: SODIUM CHLORIDE NASAL 0.65% SPRAY BTL (OCEAN) SCH ×3 (08:35→20:22)
[2021-07-27] MEDS: amLODIPine 5 MG TAB PO SCH ×2 (08:35→20:22)
[2021-07-27] MEDS: guaiFENesin 200 MG TAB PO PRN (20:21)
[2021-07-28 06:00] VITALS: BP 133/83
[2021-07-28] MEDS: ENOXAPARIN 40MG/0.4ML SYRINGE (J1650 PER 10MG) SC SCH (08:55)
[2021-07-28] MEDS: TAMSULOSIN 0.4 MG CAP PO SCH (08:56)
[2021-07-28] MEDS: ASPIRIN 81MG CHEW TABLET PO SCH (08:56)
[2021-07-28] MEDS: amLODIPine 5 MG TAB PO SCH ×2 (08:56→20:22)
[2021-07-28] MEDS: ATORVASTATIN 20 MG TAB PO SCH (08:56)
[2021-07-28] MEDS: QUEtiapine FUMARATE 12.5 MG HALF-TAB PO SCH ×2 (08:56→20:20)
[2021-07-28] MEDS: DOCUSATE SODIUM 100MG CAPSULE PO SCH ×2 (08:56→20:22)
[2021-07-28] MEDS: SODIUM CHLORIDE NASAL 0.65% SPRAY BTL (OCEAN) SCH ×3 (08:57→20:23)
[2021-07-28] MEDS: INSULIN LISPRO (NovoLOG) PER UNIT SC SCH ×4 (08:57→20:24)
[2021-07-28] MEDS: ACETAMINOPHEN TAB 650MG DOSE (2X325MG) PO PRN ×2 (16:09→22:10)
[2021-07-29] MEDS: ACETAMINOPHEN TAB 650MG DOSE (2X325MG) PO PRN ×2 (02:45→18:51)
[2021-07-29] MEDS: carisoprodoL 350 MG TAB PO PRN ×2 (02:49→22:26)
[2021-07-29 06:00] VITALS: BP 141/82
[2021-07-29] MEDS: INSULIN LISPRO (NovoLOG) PER UNIT SC SCH ×4 (07:47→21:00)
[2021-07-29] MEDS: DOCUSATE SODIUM 100MG CAPSULE PO SCH ×2 (07:48→20:16)
[2021-07-29] MEDS: ENOXAPARIN 40MG/0.4ML SYRINGE (J1650 PER 10MG) SC SCH (07:48)
[2021-07-29] MEDS: amLODIPine 5 MG TAB PO SCH ×2 (07:48→20:17)
[2021-07-29] MEDS: ATORVASTATIN 20 MG TAB PO SCH (07:48)
[2021-07-29] MEDS: ASPIRIN 81MG CHEW TABLET PO SCH (07:48)
[2021-07-29] MEDS: SODIUM CHLORIDE NASAL 0.65% SPRAY BTL (OCEAN) SCH ×3 (07:49→20:16)
[2021-07-29] MEDS: QUEtiapine FUMARATE 12.5 MG HALF-TAB PO SCH ×2 (07:49→20:17)
[2021-07-29] MEDS: TAMSULOSIN 0.4 MG CAP PO SCH (07:49)
[2021-07-29 22:00] VITALS: BP 135/93
[2021-07-30 06:36] VITALS: BP 131/84
[2021-07-30] MEDS: INSULIN LISPRO (NovoLOG) PER UNIT SC SCH ×4 (08:03→20:23)
[2021-07-30] MEDS: amLODIPine 5 MG TAB PO SCH ×2 (08:04→20:22)
[2021-07-30] MEDS: ASPIRIN 81MG CHEW TABLET PO SCH (08:04)
[2021-07-30] MEDS: TAMSULOSIN 0.4 MG CAP PO SCH (08:04)
[2021-07-30] MEDS: QUEtiapine FUMARATE 12.5 MG HALF-TAB PO SCH ×2 (08:04→20:21)
[2021-07-30] MEDS: DOCUSATE SODIUM 100MG CAPSULE PO SCH ×2 (08:04→20:21)
[2021-07-30] MEDS: ATORVASTATIN 20 MG TAB PO SCH (08:04)
[2021-07-30] MEDS: ENOXAPARIN 40MG/0.4ML SYRINGE (J1650 PER 10MG) SC SCH (08:05)
[2021-07-30] MEDS: SODIUM CHLORIDE NASAL 0.65% SPRAY BTL (OCEAN) SCH ×3 (08:05→20:21)
[2021-07-30 09:08] LABS: HEMATOCRIT 40.8 % (42.0-52.0); HEMOGLOBIN 13.6 g/dl (13.5-17.5); MEAN CORPUSCULAR HGB CONC 33.3 g/dl (32.0-36.5); PLATELET COUNT, AUTOMATED 254 10^3/uL (150-450); RED BLOOD COUNT 4.69 10^6/uL (4.30-6.10); WHITE BLOOD COUNT 5.6 10^3/uL (4.0-10.0)
[2021-07-30 09:51] LABS: BLOOD UREA NITROGEN 21 MG/DL (7-18); CALCIUM LEVEL 8.7 MG/DL (8.8-10.2); CARBON DIOXIDE LEVEL 27 MEQ/L (21-32); CHLORIDE LEVEL 98 MEQ/L (98-107); GLOMERULAR FILTRATION RATE > 60.0 (>42); GLUCOSE, FASTING 220 MG/DL (70-100); POTASSIUM SERUM 3.8 MEQ/L (3.5-5.1); SODIUM LEVEL 133 MEQ/L (136-145)
[2021-07-30] MEDS: ACETAMINOPHEN TAB 650MG DOSE (2X325MG) PO PRN ×2 (15:09→21:21)
[2021-07-30] MEDS: guaiFENesin 200 MG TAB PO PRN (17:34)
[2021-07-31 05:41] VITALS: BP 120/72
[2021-07-31 06:11] LABS: HEMATOCRIT 39.2 % (42.0-52.0); HEMOGLOBIN 13.3 g/dl (13.5-17.5); MEAN CORPUSCULAR HEMOGLOBIN 29.3 pg (27.0-33.0); MEAN CORPUSCULAR HGB CONC 33.9 g/dl (32.0-36.5); MEAN CORPUSCULAR VOLUME 86.3 fl (80.0-96.0); PLATELET COUNT, AUTOMATED 236 10^3/uL (150-450); RED BLOOD COUNT 4.54 10^6/uL (4.30-6.10); WHITE BLOOD COUNT 5.9 10^3/uL (4.0-10.0)
[2021-07-31 06:36] LABS: BLOOD UREA NITROGEN 18 MG/DL (7-18); CALCIUM LEVEL 8.7 MG/DL (8.8-10.2); CARBON DIOXIDE LEVEL 28 MEQ/L (21-32); CHLORIDE LEVEL 100 MEQ/L (98-107); CREATININE FOR GFR 0.66 MG/DL (0.70-1.30); GLOMERULAR FILTRATION RATE > 60.0 (>42); GLUCOSE, FASTING 165 MG/DL (70-100); POTASSIUM SERUM 3.6 MEQ/L (3.5-5.1); SODIUM LEVEL 135 MEQ/L (136-145)
[2021-07-31] MEDS: INSULIN LISPRO (NovoLOG) PER UNIT SC SCH ×4 (07:13→20:04)
[2021-07-31] MEDS: SODIUM CHLORIDE NASAL 0.65% SPRAY BTL (OCEAN) SCH ×3 (09:59→20:05)
[2021-07-31] MEDS: QUEtiapine FUMARATE 12.5 MG HALF-TAB PO SCH ×2 (10:00→20:02)
[2021-07-31] MEDS: TAMSULOSIN 0.4 MG CAP PO SCH (10:00)
[2021-07-31] MEDS: ASPIRIN 81MG CHEW TABLET PO SCH (10:00)
[2021-07-31] MEDS: ENOXAPARIN 40MG/0.4ML SYRINGE (J1650 PER 10MG) SC SCH (10:00)
[2021-07-31] MEDS: ATORVASTATIN 20 MG TAB PO SCH (10:02)
[2021-07-31] MEDS: DOCUSATE SODIUM 100MG CAPSULE PO SCH ×2 (10:02→20:06)
[2021-07-31] MEDS: amLODIPine 5 MG TAB PO SCH ×2 (10:07→20:04)
[2021-07-31] MEDS: ACETAMINOPHEN TAB 650MG DOSE (2X325MG) PO PRN (18:10)
[2021-07-31] MEDS: guaiFENesin 200 MG TAB PO PRN (18:15)
[2021-08-01 06:50] LABS: HEMATOCRIT 41.3 % (42.0-52.0); HEMOGLOBIN 13.7 g/dl (13.5-17.5); MEAN CORPUSCULAR HEMOGLOBIN 28.9 pg (27.0-33.0); MEAN CORPUSCULAR HGB CONC 33.2 g/dl (32.0-36.5); MEAN CORPUSCULAR VOLUME 87.1 fl (80.0-96.0); PLATELET COUNT, AUTOMATED 256 10^3/uL (150-450); RED BLOOD COUNT 4.74 10^6/uL (4.30-6.10)
[2021-08-01 07:17] LABS: BLOOD UREA NITROGEN 17 MG/DL (7-18); CALCIUM LEVEL 8.7 MG/DL (8.8-10.2); CARBON DIOXIDE LEVEL 29 MEQ/L (21-32); CHLORIDE LEVEL 99 MEQ/L (98-107); CREATININE FOR GFR 0.58 MG/DL (0.70-1.30); GLOMERULAR FILTRATION RATE > 60.0 (>42); GLUCOSE, FASTING 183 MG/DL (70-100); POTASSIUM SERUM 3.8 MEQ/L (3.5-5.1); SODIUM LEVEL 133 MEQ/L (136-145)
[2021-08-01] MEDS: QUEtiapine FUMARATE 12.5 MG HALF-TAB PO SCH ×2 (09:56→21:15)
[2021-08-01] MEDS: ATORVASTATIN 20 MG TAB PO SCH (09:56)
[2021-08-01] MEDS: INSULIN LISPRO (NovoLOG) PER UNIT SC SCH ×4 (09:56→21:00)
[2021-08-01] MEDS: ENOXAPARIN 40MG/0.4ML SYRINGE (J1650 PER 10MG) SC SCH (09:56)
[2021-08-01] MEDS: ASPIRIN 81MG CHEW TABLET PO SCH (09:57)
[2021-08-01] MEDS: DOCUSATE SODIUM 100MG CAPSULE PO SCH ×2 (09:57→21:14)
[2021-08-01] MEDS: TAMSULOSIN 0.4 MG CAP PO SCH (09:57)
[2021-08-01] MEDS: SODIUM CHLORIDE NASAL 0.65% SPRAY BTL (OCEAN) SCH ×3 (09:58→21:17)
[2021-08-01] MEDS: amLODIPine 5 MG TAB PO SCH ×2 (10:01→21:14)
[2021-08-01 15:12] VITALS: BP 131/76
[2021-08-01] MEDS: guaiFENesin 200 MG TAB PO PRN (16:07)
[2021-08-01] MEDS: ACETAMINOPHEN TAB 650MG DOSE (2X325MG) PO PRN (16:09)
[2021-08-02 06:00] VITALS: BP 139/83
[2021-08-02] MEDS: ATORVASTATIN 20 MG TAB PO SCH (08:30)
[2021-08-02] MEDS: ENOXAPARIN 40MG/0.4ML SYRINGE (J1650 PER 10MG) SC SCH (08:30)
[2021-08-02] MEDS: DOCUSATE SODIUM 100MG CAPSULE PO SCH ×2 (08:31→20:08)
[2021-08-02] MEDS: TAMSULOSIN 0.4 MG CAP PO SCH (08:31)
[2021-08-02] MEDS: ASPIRIN 81MG CHEW TABLET PO SCH (08:31)
[2021-08-02] MEDS: QUEtiapine FUMARATE 12.5 MG HALF-TAB PO SCH ×2 (08:31→20:09)
[2021-08-02] MEDS: amLODIPine 5 MG TAB PO SCH ×2 (08:35→20:09)
[2021-08-02] MEDS: INSULIN LISPRO (NovoLOG) PER UNIT SC SCH ×4 (08:36→21:00)
[2021-08-02] MEDS: ACETAMINOPHEN TAB 650MG DOSE (2X325MG) PO PRN ×2 (08:43→19:34)
[2021-08-02] MEDS: guaiFENesin 200 MG TAB PO PRN (08:43)
[2021-08-02] MEDS: SODIUM CHLORIDE NASAL 0.65% SPRAY BTL (OCEAN) SCH ×3 (08:44→20:09)
[2021-08-02] MEDS: NITROGLYCERIN 0.4MG SUBL TABLET SL PRN (12:54)
[2021-08-02 15:27] LABS: CK-MB VALUE MASS 1.5 NG/ML (<3.6); MB/CK RELATIVE INDEX 1.53 (< OR =4)
[2021-08-03 06:16] VITALS: BP 147/79
[2021-08-03] MEDS: ATORVASTATIN 20 MG TAB PO SCH (08:39)
[2021-08-03] MEDS: amLODIPine 5 MG TAB PO SCH ×2 (08:39→20:09)
[2021-08-03] MEDS: ASPIRIN 81MG CHEW TABLET PO SCH (08:39)
[2021-08-03] MEDS: TAMSULOSIN 0.4 MG CAP PO SCH (08:39)
[2021-08-03] MEDS: QUEtiapine FUMARATE 12.5 MG HALF-TAB PO SCH ×2 (08:39→20:09)
[2021-08-03] MEDS: ENOXAPARIN 40MG/0.4ML SYRINGE (J1650 PER 10MG) SC SCH (08:39)
[2021-08-03] MEDS: DOCUSATE SODIUM 100MG CAPSULE PO SCH ×2 (08:39→20:09)
[2021-08-03] MEDS: SODIUM CHLORIDE NASAL 0.65% SPRAY BTL (OCEAN) SCH ×3 (08:40→20:10)
[2021-08-03] MEDS: INSULIN LISPRO (NovoLOG) PER UNIT SC SCH ×5 (08:40→21:00)
[2021-08-03] MEDS: ACETAMINOPHEN TAB 650MG DOSE (2X325MG) PO PRN (15:59)
[2021-08-03] MEDS: guaiFENesin 200 MG TAB PO PRN (17:51)
[2021-08-04 06:00] VITALS: BP 140/83
[2021-08-04] MEDS: ENOXAPARIN 40MG/0.4ML SYRINGE (J1650 PER 10MG) SC SCH (09:05)
[2021-08-04] MEDS: QUEtiapine FUMARATE 12.5 MG HALF-TAB PO SCH ×2 (09:05→20:34)
[2021-08-04] MEDS: amLODIPine 5 MG TAB PO SCH ×2 (09:06→20:34)
[2021-08-04] MEDS: ATORVASTATIN 20 MG TAB PO SCH (09:06)
[2021-08-04] MEDS: SODIUM CHLORIDE NASAL 0.65% SPRAY BTL (OCEAN) SCH ×3 (09:06→20:34)
[2021-08-04] MEDS: ASPIRIN 81MG CHEW TABLET PO SCH (09:06)
[2021-08-04] MEDS: DOCUSATE SODIUM 100MG CAPSULE PO SCH ×2 (09:06→20:34)
[2021-08-04] MEDS: TAMSULOSIN 0.4 MG CAP PO SCH (09:06)
[2021-08-04] MEDS: ACETAMINOPHEN TAB 650MG DOSE (2X325MG) PO PRN (11:35)
[2021-08-04] MEDS: INSULIN LISPRO (NovoLOG) PER UNIT SC SCH ×4 (12:56→21:00)
[2021-08-04] MEDS: guaiFENesin 200 MG TAB PO PRN (17:30)
[2021-08-04] MEDS: carisoprodoL 350 MG TAB PO PRN (23:55)
[2021-08-05 06:00] VITALS: BP 125/73
[2021-08-05] MEDS: DOCUSATE SODIUM 100MG CAPSULE PO SCH ×2 (08:16→21:50)
[2021-08-05] MEDS: ENOXAPARIN 40MG/0.4ML SYRINGE (J1650 PER 10MG) SC SCH (08:16)
[2021-08-05] MEDS: ASPIRIN 81MG CHEW TABLET PO SCH (08:16)
[2021-08-05] MEDS: TAMSULOSIN 0.4 MG CAP PO SCH (08:16)
[2021-08-05] MEDS: ATORVASTATIN 20 MG TAB PO SCH (08:16)
[2021-08-05] MEDS: amLODIPine 5 MG TAB PO SCH ×2 (08:16→21:50)
[2021-08-05] MEDS: QUEtiapine FUMARATE 12.5 MG HALF-TAB PO SCH ×2 (08:16→21:50)
[2021-08-05] MEDS: SODIUM CHLORIDE NASAL 0.65% SPRAY BTL (OCEAN) SCH ×3 (08:17→21:50)
[2021-08-05] MEDS: INSULIN LISPRO (NovoLOG) PER UNIT SC SCH ×3 (12:50→20:44)
[2021-08-05] MEDS: guaiFENesin 200 MG TAB PO PRN (15:05)
[2021-08-05] MEDS: ACETAMINOPHEN TAB 650MG DOSE (2X325MG) PO PRN (15:05)
[2021-08-06] MEDS: carisoprodoL 350 MG TAB PO PRN (04:59)
[2021-08-06 06:00] VITALS: BP 119/72
[2021-08-06] MEDS: QUEtiapine FUMARATE 12.5 MG HALF-TAB PO SCH ×2 (08:08→21:29)
[2021-08-06] MEDS: TAMSULOSIN 0.4 MG CAP PO SCH (08:08)
[2021-08-06] MEDS: ASPIRIN 81MG CHEW TABLET PO SCH (08:08)
[2021-08-06] MEDS: DOCUSATE SODIUM 100MG CAPSULE PO SCH ×2 (08:08→21:29)
[2021-08-06] MEDS: INSULIN LISPRO (NovoLOG) PER UNIT SC SCH ×4 (08:09→21:00)
[2021-08-06] MEDS: ENOXAPARIN 40MG/0.4ML SYRINGE (J1650 PER 10MG) SC SCH (08:09)
[2021-08-06] MEDS: ATORVASTATIN 20 MG TAB PO SCH (08:11)
[2021-08-06] MEDS: amLODIPine 5 MG TAB PO SCH ×2 (08:11→21:30)
[2021-08-06] MEDS: SODIUM CHLORIDE NASAL 0.65% SPRAY BTL (OCEAN) SCH ×3 (10:57→21:30)
[2021-08-06] MEDS: ACETAMINOPHEN TAB 650MG DOSE (2X325MG) PO PRN (11:03)
[2021-08-06] MEDS: guaiFENesin 200 MG TAB PO PRN (15:46)
[2021-08-07] MEDS: ACETAMINOPHEN TAB 650MG DOSE (2X325MG) PO PRN ×3 (04:47→18:05)
[2021-08-07 06:00] VITALS: BP 137/80
[2021-08-07] MEDS: INSULIN LISPRO (NovoLOG) PER UNIT SC SCH ×4 (08:59→20:23)
[2021-08-07] MEDS: ENOXAPARIN 40MG/0.4ML SYRINGE (J1650 PER 10MG) SC SCH (09:00)
[2021-08-07] MEDS: QUEtiapine FUMARATE 12.5 MG HALF-TAB PO SCH ×2 (09:00→20:23)
[2021-08-07] MEDS: TAMSULOSIN 0.4 MG CAP PO SCH (09:00)
[2021-08-07] MEDS: DOCUSATE SODIUM 100MG CAPSULE PO SCH ×2 (09:00→20:23)
[2021-08-07] MEDS: ASPIRIN 81MG CHEW TABLET PO SCH (09:00)
[2021-08-07] MEDS: amLODIPine 5 MG TAB PO SCH ×2 (09:02→20:23)
[2021-08-07] MEDS: ATORVASTATIN 20 MG TAB PO SCH (09:03)
[2021-08-07] MEDS: SODIUM CHLORIDE NASAL 0.65% SPRAY BTL (OCEAN) SCH ×3 (09:04→20:23)
[2021-08-07 10:26] LABS: HEMATOCRIT 41.1 % (42.0-52.0); HEMOGLOBIN 13.8 g/dl (13.5-17.5); MEAN CORPUSCULAR HGB CONC 33.6 g/dl (32.0-36.5); MEAN CORPUSCULAR VOLUME 86.3 fl (80.0-96.0); PLATELET COUNT, AUTOMATED 261 10^3/uL (150-450); RED BLOOD COUNT 4.76 10^6/uL (4.30-6.10); WHITE BLOOD COUNT 5.3 10^3/uL (4.0-10.0)
[2021-08-07 10:58] LABS: ALBUMIN 3.4 GM/DL (3.2-5.2); ALKALINE PHOSPHATASE 154 U/L (45-117); ALT/SGPT 38 U/L (12-78); AST/SGOT 20 U/L (7-37); BILIRUBIN,TOTAL 0.5 MG/DL (0.2-1.0); BLOOD UREA NITROGEN 18 MG/DL (7-18); CALCIUM LEVEL 9.4 MG/DL (8.8-10.2); CARBON DIOXIDE LEVEL 30 MEQ/L (21-32); CHLORIDE LEVEL 98 MEQ/L (98-107); CREATININE FOR GFR 0.64 MG/DL (0.70-1.30); GLOMERULAR FILTRATION RATE > 60.0 (>42); GLUCOSE, FASTING 191 MG/DL (70-100); POTASSIUM SERUM 3.8 MEQ/L (3.5-5.1); SODIUM LEVEL 134 MEQ/L (136-145); TOTAL PROTEIN 6.8 GM/DL (6.4-8.2)
[2021-08-07] MEDS: guaiFENesin 200 MG TAB PO PRN (18:09)
[2021-08-07] MEDS: carisoprodoL 350 MG TAB PO PRN (20:22)
[2021-08-08 05:56] VITALS: BP 133/82
[2021-08-08] MEDS: ATORVASTATIN 20 MG TAB PO SCH (08:41)
[2021-08-08] MEDS: amLODIPine 5 MG TAB PO SCH ×2 (08:41→20:16)
[2021-08-08] MEDS: ASPIRIN 81MG CHEW TABLET PO SCH (08:41)
[2021-08-08] MEDS: DOCUSATE SODIUM 100MG CAPSULE PO SCH ×2 (08:41→20:16)
[2021-08-08] MEDS: TAMSULOSIN 0.4 MG CAP PO SCH (08:41)
[2021-08-08] MEDS: ENOXAPARIN 40MG/0.4ML SYRINGE (J1650 PER 10MG) SC SCH (08:41)
[2021-08-08] MEDS: QUEtiapine FUMARATE 12.5 MG HALF-TAB PO SCH ×2 (08:41→20:16)
[2021-08-08] MEDS: INSULIN LISPRO (NovoLOG) PER UNIT SC SCH ×4 (08:42→22:08)
[2021-08-08] MEDS: SODIUM CHLORIDE NASAL 0.65% SPRAY BTL (OCEAN) SCH ×3 (08:42→20:16)
[2021-08-08] MEDS: ACETAMINOPHEN TAB 650MG DOSE (2X325MG) PO PRN ×2 (08:45→20:20)
[2021-08-08] MEDS: guaiFENesin 200 MG TAB PO PRN (20:19)
[2021-08-09 06:00] VITALS: BP 127/81
[2021-08-09] MEDS: ENOXAPARIN 40MG/0.4ML SYRINGE (J1650 PER 10MG) SC SCH (08:28)
[2021-08-09] MEDS: amLODIPine 5 MG TAB PO SCH ×2 (08:29→20:22)
[2021-08-09] MEDS: TAMSULOSIN 0.4 MG CAP PO SCH (08:30)
[2021-08-09] MEDS: ATORVASTATIN 20 MG TAB PO SCH (08:30)
[2021-08-09] MEDS: QUEtiapine FUMARATE 12.5 MG HALF-TAB PO SCH ×2 (08:30→20:21)
[2021-08-09] MEDS: ASPIRIN 81MG CHEW TABLET PO SCH (08:30)
[2021-08-09] MEDS: SODIUM CHLORIDE NASAL 0.65% SPRAY BTL (OCEAN) SCH ×3 (08:30→20:22)
[2021-08-09] MEDS: DOCUSATE SODIUM 100MG CAPSULE PO SCH ×2 (08:30→20:21)
[2021-08-09] MEDS: INSULIN LISPRO (NovoLOG) PER UNIT SC SCH ×4 (08:31→22:02)
[2021-08-09] MEDS: ACETAMINOPHEN TAB 650MG DOSE (2X325MG) PO PRN ×2 (08:36→20:21)
[2021-08-09 16:07] VITALS: BP 141/80
[2021-08-09] MEDS: NITROGLYCERIN 0.4MG SUBL TABLET SL PRN ×2 (16:11→16:28)
[2021-08-09 16:27] VITALS: BP 128/82
[2021-08-09 16:34] VITALS: BP 104/62
[2021-08-09 17:49] LABS: CK-MB VALUE MASS 1.7 NG/ML (<3.6); MB/CK RELATIVE INDEX 2.02 (< OR =4)
[2021-08-09 17:59] VITALS: BP 114/67
[2021-08-09] MEDS: guaiFENesin 200 MG TAB PO PRN (20:21)
[2021-08-10 06:00] VITALS: BP 140/85
[2021-08-10] MEDS: INSULIN LISPRO (NovoLOG) PER UNIT SC SCH ×4 (07:38→19:59)
[2021-08-10] MEDS: TAMSULOSIN 0.4 MG CAP PO SCH (08:46)
[2021-08-10] MEDS: ASPIRIN 81MG CHEW TABLET PO SCH (08:47)
[2021-08-10] MEDS: QUEtiapine FUMARATE 12.5 MG HALF-TAB PO SCH ×2 (08:47→19:58)
[2021-08-10] MEDS: ATORVASTATIN 20 MG TAB PO SCH (08:47)
[2021-08-10] MEDS: SODIUM CHLORIDE NASAL 0.65% SPRAY BTL (OCEAN) SCH ×3 (08:47→19:59)
[2021-08-10] MEDS: ENOXAPARIN 40MG/0.4ML SYRINGE (J1650 PER 10MG) SC SCH (08:47)
[2021-08-10] MEDS: amLODIPine 5 MG TAB PO SCH ×2 (08:47→19:59)
[2021-08-10] MEDS: DOCUSATE SODIUM 100MG CAPSULE PO SCH ×2 (08:47→19:59)
[2021-08-10] MEDS: ACETAMINOPHEN TAB 650MG DOSE (2X325MG) PO PRN (14:18)
[2021-08-10] MEDS: guaiFENesin 200 MG TAB PO PRN (19:58)
[2021-08-10] MEDS: carisoprodoL 350 MG TAB PO PRN (19:59)
[2021-08-11 06:00] VITALS: BP 126/84
[2021-08-11] MEDS: QUEtiapine FUMARATE 12.5 MG HALF-TAB PO SCH ×2 (08:46→20:49)
[2021-08-11] MEDS: DOCUSATE SODIUM 100MG CAPSULE PO SCH ×2 (08:46→20:49)
[2021-08-11] MEDS: INSULIN LISPRO (NovoLOG) PER UNIT SC SCH ×4 (08:46→20:49)
[2021-08-11] MEDS: ACETAMINOPHEN TAB 650MG DOSE (2X325MG) PO PRN ×3 (08:47→17:08)
[2021-08-11] MEDS: TAMSULOSIN 0.4 MG CAP PO SCH (08:47)
[2021-08-11] MEDS: ASPIRIN 81MG CHEW TABLET PO SCH (08:47)
[2021-08-11] MEDS: ATORVASTATIN 20 MG TAB PO SCH (08:47)
[2021-08-11] MEDS: amLODIPine 5 MG TAB PO SCH ×2 (08:47→20:52)
[2021-08-11] MEDS: ENOXAPARIN 40MG/0.4ML SYRINGE (J1650 PER 10MG) SC SCH (08:49)
[2021-08-11] MEDS: SODIUM CHLORIDE NASAL 0.65% SPRAY BTL (OCEAN) SCH ×3 (08:49→20:49)
[2021-08-11] MEDS: guaiFENesin 200 MG TAB PO PRN (18:46)
[2021-08-12] MEDS: ACETAMINOPHEN TAB 650MG DOSE (2X325MG) PO PRN ×4 (00:33→21:47)
[2021-08-12 06:00] VITALS: BP 130/82
[2021-08-12] MEDS: INSULIN LISPRO (NovoLOG) PER UNIT SC SCH ×4 (08:16→20:33)
[2021-08-12] MEDS: ASPIRIN 81MG CHEW TABLET PO SCH (08:16)
[2021-08-12] MEDS: QUEtiapine FUMARATE 12.5 MG HALF-TAB PO SCH ×2 (08:16→20:03)
[2021-08-12] MEDS: amLODIPine 5 MG TAB PO SCH ×2 (08:17→20:05)
[2021-08-12] MEDS: DOCUSATE SODIUM 100MG CAPSULE PO SCH ×2 (08:17→20:03)
[2021-08-12] MEDS: ENOXAPARIN 40MG/0.4ML SYRINGE (J1650 PER 10MG) SC SCH (08:17)
[2021-08-12] MEDS: ATORVASTATIN 20 MG TAB PO SCH (08:17)
[2021-08-12] MEDS: SODIUM CHLORIDE NASAL 0.65% SPRAY BTL (OCEAN) SCH ×3 (08:17→20:05)
[2021-08-12] MEDS: TAMSULOSIN 0.4 MG CAP PO SCH (08:17)
[2021-08-12] MEDS: guaiFENesin 200 MG TAB PO PRN (17:15)
[2021-08-13 06:00] VITALS: BP 128/76
[2021-08-13 06:27] LABS: HEMATOCRIT 39.7 % (42.0-52.0); HEMOGLOBIN 13.5 g/dl (13.5-17.5); MEAN CORPUSCULAR HEMOGLOBIN 29.3 pg (27.0-33.0); MEAN CORPUSCULAR VOLUME 86.3 fl (80.0-96.0); PLATELET COUNT, AUTOMATED 252 10^3/uL (150-450); WHITE BLOOD COUNT 5.7 10^3/uL (4.0-10.0)
[2021-08-13 06:44] LABS: BLOOD UREA NITROGEN 22 MG/DL (7-18); CALCIUM LEVEL 9.3 MG/DL (8.8-10.2); CARBON DIOXIDE LEVEL 26 MEQ/L (21-32); CHLORIDE LEVEL 100 MEQ/L (98-107); CREATININE FOR GFR 0.58 MG/DL (0.70-1.30); GLOMERULAR FILTRATION RATE > 60.0 (>42); GLUCOSE, FASTING 203 MG/DL (70-100); POTASSIUM SERUM 3.8 MEQ/L (3.5-5.1); SODIUM LEVEL 133 MEQ/L (136-145)
[2021-08-13] MEDS: ENOXAPARIN 40MG/0.4ML SYRINGE (J1650 PER 10MG) SC SCH (08:03)
[2021-08-13] MEDS: QUEtiapine FUMARATE 12.5 MG HALF-TAB PO SCH ×2 (08:04→21:01)
[2021-08-13] MEDS: amLODIPine 5 MG TAB PO SCH ×2 (08:04→21:01)
[2021-08-13] MEDS: INSULIN LISPRO (NovoLOG) PER UNIT SC SCH ×4 (08:04→21:00)
[2021-08-13] MEDS: ATORVASTATIN 20 MG TAB PO SCH (08:04)
[2021-08-13] MEDS: ASPIRIN 81MG CHEW TABLET PO SCH (08:04)
[2021-08-13] MEDS: SODIUM CHLORIDE NASAL 0.65% SPRAY BTL (OCEAN) SCH ×3 (08:04→21:01)
[2021-08-13] MEDS: DOCUSATE SODIUM 100MG CAPSULE PO SCH ×2 (08:04→21:01)
[2021-08-13] MEDS: TAMSULOSIN 0.4 MG CAP PO SCH (08:04)
[2021-08-13] MEDS: guaiFENesin 200 MG TAB PO PRN (15:34)
[2021-08-13] MEDS: ACETAMINOPHEN TAB 650MG DOSE (2X325MG) PO PRN (15:34)
[2021-08-13] MEDS: carisoprodoL 350 MG TAB PO PRN (21:01)
[2021-08-14] MEDS: ACETAMINOPHEN TAB 650MG DOSE (2X325MG) PO PRN ×3 (02:16→20:37)
[2021-08-14 06:00] VITALS: BP 135/84
[2021-08-14] MEDS: ASPIRIN 81MG CHEW TABLET PO SCH (08:57)
[2021-08-14] MEDS: QUEtiapine FUMARATE 12.5 MG HALF-TAB PO SCH ×2 (08:58→20:37)
[2021-08-14] MEDS: amLODIPine 5 MG TAB PO SCH ×2 (08:58→20:37)
[2021-08-14] MEDS: DOCUSATE SODIUM 100MG CAPSULE PO SCH ×2 (08:58→20:37)
[2021-08-14] MEDS: ATORVASTATIN 20 MG TAB PO SCH (08:58)
[2021-08-14] MEDS: TAMSULOSIN 0.4 MG CAP PO SCH (08:58)
[2021-08-14] MEDS: INSULIN LISPRO (NovoLOG) PER UNIT SC SCH ×4 (08:59→20:38)
[2021-08-14] MEDS: ENOXAPARIN 40MG/0.4ML SYRINGE (J1650 PER 10MG) SC SCH (08:59)
[2021-08-14] MEDS: SODIUM CHLORIDE NASAL 0.65% SPRAY BTL (OCEAN) SCH ×3 (09:00→20:38)
[2021-08-14] MEDS: guaiFENesin 200 MG TAB PO PRN (17:46)
[2021-08-15] MEDS: DOCUSATE SODIUM 100MG CAPSULE PO SCH ×2 (07:59→20:54)
[2021-08-15] MEDS: TAMSULOSIN 0.4 MG CAP PO SCH (08:00)
[2021-08-15] MEDS: INSULIN LISPRO (NovoLOG) PER UNIT SC SCH ×4 (08:00→20:57)
[2021-08-15] MEDS: amLODIPine 5 MG TAB PO SCH ×2 (08:00→20:55)
[2021-08-15] MEDS: QUEtiapine FUMARATE 12.5 MG HALF-TAB PO SCH (08:00)
[2021-08-15] MEDS: ASPIRIN 81MG CHEW TABLET PO SCH (08:00)
[2021-08-15] MEDS: ATORVASTATIN 20 MG TAB PO SCH (08:00)
[2021-08-15] MEDS: ENOXAPARIN 40MG/0.4ML SYRINGE (J1650 PER 10MG) SC SCH (08:01)
[2021-08-15] MEDS: SODIUM CHLORIDE NASAL 0.65% SPRAY BTL (OCEAN) SCH ×3 (08:01→20:55)
[2021-08-15 08:07] LABS: BASO # 0.1 10^3/uL (0.0-0.2); BASO % 0.9 % (0.0-1.0); EOS # 0.2 10^3/uL (0.0-0.5); EOS % 3.2 % (0.0-3.0); HEMATOCRIT 43.1 % (42.0-52.0); HEMOGLOBIN 14.6 g/dl (13.5-17.5); LYMPH # 2.2 10^3/uL (1.5-5.0); LYMPH % 32.7 % (24.0-44.0); MEAN CORPUSCULAR HEMOGLOBIN 29.3 pg (27.0-33.0); MEAN CORPUSCULAR HGB CONC 33.9 g/dl (32.0-36.5); MEAN CORPUSCULAR VOLUME 86.4 fl (80.0-96.0); MONO # 0.5 10^3/uL (0.0-0.8); NEUTROPHILS # 3.7 10^3/uL (1.5-8.5); NEUTROPHILS % 54.9 % (36.0-66.0); PLATELET COUNT, AUTOMATED 275 10^3/uL (150-450); RED BLOOD COUNT 4.99 10^6/uL (4.30-6.10); WHITE BLOOD COUNT 6.7 10^3/uL (4.0-10.0)
[2021-08-15 08:26] LABS: ALBUMIN 3.5 GM/DL (3.2-5.2); ALKALINE PHOSPHATASE 154 U/L (45-117); ALT/SGPT 29 U/L (12-78); AST/SGOT 12 U/L (7-37); BILIRUBIN,TOTAL 0.5 MG/DL (0.2-1.0); BLOOD UREA NITROGEN 17 MG/DL (7-18); CALCIUM LEVEL 9.1 MG/DL (8.8-10.2); CARBON DIOXIDE LEVEL 28 MEQ/L (21-32); CHLORIDE LEVEL 96 MEQ/L (98-107); CREATININE FOR GFR 0.67 MG/DL (0.70-1.30); GLOMERULAR FILTRATION RATE > 60.0 (>42); GLUCOSE, FASTING 215 MG/DL (70-100); MAGNESIUM LEVEL 1.9 MG/DL (1.8-2.4); POTASSIUM SERUM 3.8 MEQ/L (3.5-5.1); SODIUM LEVEL 133 MEQ/L (136-145); TOTAL PROTEIN 7.1 GM/DL (6.4-8.2)
[2021-08-15] MEDS: guaiFENesin 200 MG TAB PO PRN ×2 (11:15→18:11)
[2021-08-15] MEDS: ACETAMINOPHEN TAB 650MG DOSE (2X325MG) PO PRN ×2 (11:15→18:11)
[2021-08-15] MEDS: carisoprodoL 350 MG TAB PO PRN (20:54)
[2021-08-15] MEDS: QUEtiapine FUMARATE 25 MG TAB PO SCH (21:24)
[2021-08-16 06:45] VITALS: BP_SYST 141; BP_SYST 146; BP_DIAS 78; BP_DIAS 82
[2021-08-16] MEDS: ASPIRIN 81MG CHEW TABLET PO SCH (08:23)
[2021-08-16] MEDS: DOCUSATE SODIUM 100MG CAPSULE PO SCH ×2 (08:23→20:45)
[2021-08-16] MEDS: TAMSULOSIN 0.4 MG CAP PO SCH (08:23)
[2021-08-16] MEDS: ATORVASTATIN 20 MG TAB PO SCH (08:23)
[2021-08-16] MEDS: QUEtiapine FUMARATE 25 MG TAB PO SCH ×2 (08:23→20:45)
[2021-08-16] MEDS: ENOXAPARIN 40MG/0.4ML SYRINGE (J1650 PER 10MG) SC SCH (08:26)
[2021-08-16] MEDS: amLODIPine 5 MG TAB PO SCH ×2 (08:27→20:45)
[2021-08-16] MEDS: INSULIN LISPRO (NovoLOG) PER UNIT SC SCH ×4 (08:27→20:00)
[2021-08-16] MEDS: SODIUM CHLORIDE NASAL 0.65% SPRAY BTL (OCEAN) SCH ×3 (08:33→20:46)
[2021-08-16] MEDS: guaiFENesin 200 MG TAB PO PRN ×2 (09:27→16:49)
[2021-08-16] MEDS: ACETAMINOPHEN TAB 650MG DOSE (2X325MG) PO PRN ×2 (09:27→18:00)
[2021-08-16] MEDS: carisoprodoL 350 MG TAB PO PRN (16:49)
[2021-08-17 06:00] VITALS: BP 133/71
[2021-08-17] MEDS: DOCUSATE SODIUM 100MG CAPSULE PO SCH ×2 (08:09→20:36)
[2021-08-17] MEDS: QUEtiapine FUMARATE 25 MG TAB PO SCH ×2 (08:09→20:36)
[2021-08-17] MEDS: amLODIPine 5 MG TAB PO SCH ×2 (08:09→20:37)
[2021-08-17] MEDS: SODIUM CHLORIDE NASAL 0.65% SPRAY BTL (OCEAN) SCH ×3 (08:09→20:37)
[2021-08-17] MEDS: ATORVASTATIN 20 MG TAB PO SCH (08:09)
[2021-08-17] MEDS: TAMSULOSIN 0.4 MG CAP PO SCH (08:09)
[2021-08-17] MEDS: ASPIRIN 81MG CHEW TABLET PO SCH (08:09)
[2021-08-17] MEDS: INSULIN LISPRO (NovoLOG) PER UNIT SC SCH ×4 (08:10→20:37)
[2021-08-17] MEDS: ENOXAPARIN 40MG/0.4ML SYRINGE (J1650 PER 10MG) SC SCH (08:10)
[2021-08-17] MEDS: ACETAMINOPHEN TAB 650MG DOSE (2X325MG) PO PRN ×3 (08:12→22:49)
[2021-08-17] MEDS: carisoprodoL 350 MG TAB PO PRN (08:27)
[2021-08-17] MEDS: guaiFENesin 200 MG TAB PO PRN (20:36)
[2021-08-18 06:00] VITALS: BP 143/83
[2021-08-18] MEDS: ASPIRIN 81MG CHEW TABLET PO SCH (08:20)
[2021-08-18] MEDS: TAMSULOSIN 0.4 MG CAP PO SCH (08:20)
[2021-08-18] MEDS: ATORVASTATIN 20 MG TAB PO SCH (08:20)
[2021-08-18] MEDS: QUEtiapine FUMARATE 25 MG TAB PO SCH ×2 (08:20→21:43)
[2021-08-18] MEDS: ENOXAPARIN 40MG/0.4ML SYRINGE (J1650 PER 10MG) SC SCH (08:20)
[2021-08-18] MEDS: amLODIPine 5 MG TAB PO SCH ×2 (08:20→21:43)
[2021-08-18] MEDS: DOCUSATE SODIUM 100MG CAPSULE PO SCH ×2 (08:21→21:43)
[2021-08-18] MEDS: INSULIN LISPRO (NovoLOG) PER UNIT SC SCH ×4 (08:23→21:00)
[2021-08-18] MEDS: SODIUM CHLORIDE NASAL 0.65% SPRAY BTL (OCEAN) SCH ×3 (08:25→21:43)
[2021-08-18] MEDS: guaiFENesin 200 MG TAB PO PRN (12:52)
[2021-08-18] MEDS: ACETAMINOPHEN TAB 650MG DOSE (2X325MG) PO PRN ×2 (14:05→21:44)
[2021-08-19 06:00] VITALS: BP 130/79
[2021-08-19] MEDS: DOCUSATE SODIUM 100MG CAPSULE PO SCH ×2 (08:27→21:37)
[2021-08-19] MEDS: ENOXAPARIN 40MG/0.4ML SYRINGE (J1650 PER 10MG) SC SCH (08:27)
[2021-08-19] MEDS: ASPIRIN 81MG CHEW TABLET PO SCH (08:27)
[2021-08-19] MEDS: ATORVASTATIN 20 MG TAB PO SCH (08:28)
[2021-08-19] MEDS: TAMSULOSIN 0.4 MG CAP PO SCH (08:28)
[2021-08-19] MEDS: INSULIN LISPRO (NovoLOG) PER UNIT SC SCH ×4 (08:29→21:00)
[2021-08-19] MEDS: amLODIPine 5 MG TAB PO SCH ×2 (08:29→21:37)
[2021-08-19] MEDS: SODIUM CHLORIDE NASAL 0.65% SPRAY BTL (OCEAN) SCH ×3 (08:29→21:38)
[2021-08-19] MEDS: QUEtiapine FUMARATE 25 MG TAB PO SCH ×2 (08:29→21:37)
[2021-08-19] MEDS: ACETAMINOPHEN TAB 650MG DOSE (2X325MG) PO PRN (18:59)
[2021-08-19] MEDS: guaiFENesin 200 MG TAB PO PRN (19:11)
[2021-08-20] MEDS: ASPIRIN 81MG CHEW TABLET PO SCH (08:22)
[2021-08-20] MEDS: DOCUSATE SODIUM 100MG CAPSULE PO SCH ×2 (08:23→20:28)
[2021-08-20] MEDS: ATORVASTATIN 20 MG TAB PO SCH (08:23)
[2021-08-20] MEDS: amLODIPine 5 MG TAB PO SCH ×2 (08:24→20:28)
[2021-08-20] MEDS: TAMSULOSIN 0.4 MG CAP PO SCH (08:24)
[2021-08-20] MEDS: QUEtiapine FUMARATE 25 MG TAB PO SCH ×2 (08:24→20:28)
[2021-08-20] MEDS: ENOXAPARIN 40MG/0.4ML SYRINGE (J1650 PER 10MG) SC SCH (08:24)
[2021-08-20] MEDS: SODIUM CHLORIDE NASAL 0.65% SPRAY BTL (OCEAN) SCH ×3 (08:25→20:29)
[2021-08-20] MEDS: INSULIN LISPRO (NovoLOG) PER UNIT SC SCH ×4 (08:25→20:25)
[2021-08-20] MEDS: ACETAMINOPHEN TAB 650MG DOSE (2X325MG) PO PRN ×2 (12:31→20:28)
[2021-08-20 20:00] VITALS: BP 145/89
[2021-08-20] MEDS: guaiFENesin 200 MG TAB PO PRN (20:32)
[2021-08-21 06:00] VITALS: BP 140/79
[2021-08-21] MEDS: INSULIN LISPRO (NovoLOG) PER UNIT SC SCH ×4 (07:30→20:27)
[2021-08-21 08:59] LABS: HEMATOCRIT 43.6 % (42.0-52.0); HEMOGLOBIN 14.6 g/dl (13.5-17.5); MEAN CORPUSCULAR HEMOGLOBIN 29.1 pg (27.0-33.0); MEAN CORPUSCULAR HGB CONC 33.5 g/dl (32.0-36.5); PLATELET COUNT, AUTOMATED 288 10^3/uL (150-450); RED BLOOD COUNT 5.01 10^6/uL (4.30-6.10); WHITE BLOOD COUNT 6.5 10^3/uL (4.0-10.0)
[2021-08-21 09:26] LABS: ALBUMIN 3.8 GM/DL (3.2-5.2); ALKALINE PHOSPHATASE 165 U/L (45-117); ALT/SGPT 32 U/L (12-78); AST/SGOT 16 U/L (7-37); BILIRUBIN,TOTAL 0.5 MG/DL (0.2-1.0); BLOOD UREA NITROGEN 29 MG/DL (7-18); CALCIUM LEVEL 9.3 MG/DL (8.8-10.2); CARBON DIOXIDE LEVEL 28 MEQ/L (21-32); CHLORIDE LEVEL 96 MEQ/L (98-107); CREATININE FOR GFR 0.85 MG/DL (0.70-1.30); GLOMERULAR FILTRATION RATE > 60.0 (>42); GLUCOSE, FASTING 235 MG/DL (70-100); SODIUM LEVEL 132 MEQ/L (136-145); TOTAL PROTEIN 7.2 GM/DL (6.4-8.2)
[2021-08-21] MEDS: ATORVASTATIN 20 MG TAB PO SCH (09:46)
[2021-08-21] MEDS: ENOXAPARIN 40MG/0.4ML SYRINGE (J1650 PER 10MG) SC SCH (09:47)
[2021-08-21] MEDS: TAMSULOSIN 0.4 MG CAP PO SCH (09:47)
[2021-08-21] MEDS: DOCUSATE SODIUM 100MG CAPSULE PO SCH ×2 (09:47→20:34)
[2021-08-21] MEDS: QUEtiapine FUMARATE 25 MG TAB PO SCH ×2 (09:47→20:34)
[2021-08-21] MEDS: amLODIPine 5 MG TAB PO SCH ×2 (09:47→20:33)
[2021-08-21] MEDS: SODIUM CHLORIDE NASAL 0.65% SPRAY BTL (OCEAN) SCH ×3 (09:47→20:34)
[2021-08-21] MEDS: ASPIRIN 81MG CHEW TABLET PO SCH (09:47)
[2021-08-21] MEDS: ACETAMINOPHEN TAB 650MG DOSE (2X325MG) PO PRN ×2 (13:02→20:34)
[2021-08-21] MEDS: guaiFENesin 200 MG TAB PO PRN (20:33)
[2021-08-22 06:00] VITALS: BP 130/79
[2021-08-22] MEDS: ATORVASTATIN 20 MG TAB PO SCH (08:49)
[2021-08-22] MEDS: QUEtiapine FUMARATE 25 MG TAB PO SCH ×2 (08:49→20:15)
[2021-08-22] MEDS: TAMSULOSIN 0.4 MG CAP PO SCH (08:49)
[2021-08-22] MEDS: ENOXAPARIN 40MG/0.4ML SYRINGE (J1650 PER 10MG) SC SCH (08:50)
[2021-08-22] MEDS: ASPIRIN 81MG CHEW TABLET PO SCH (08:50)
[2021-08-22] MEDS: DOCUSATE SODIUM 100MG CAPSULE PO SCH ×2 (08:50→20:15)
[2021-08-22] MEDS: SODIUM CHLORIDE NASAL 0.65% SPRAY BTL (OCEAN) SCH ×3 (08:50→20:14)
[2021-08-22] MEDS: INSULIN LISPRO (NovoLOG) PER UNIT SC SCH ×4 (08:51→22:34)
[2021-08-22] MEDS: amLODIPine 5 MG TAB PO SCH ×2 (08:51→20:15)
[2021-08-22] MEDS: ACETAMINOPHEN TAB 650MG DOSE (2X325MG) PO PRN (10:08)
[2021-08-22] MEDS: guaiFENesin 200 MG TAB PO PRN ×2 (10:08→20:15)
[2021-08-22] MEDS: traMADol 50 MG TAB PO PRN ×2 (14:15→20:16)
[2021-08-23] MEDS: traMADol 50 MG TAB PO PRN ×3 (05:58→20:08)
[2021-08-23 06:46] VITALS: BP 136/85
[2021-08-23] MEDS: SODIUM CHLORIDE NASAL 0.65% SPRAY BTL (OCEAN) SCH ×3 (08:07→20:09)
[2021-08-23] MEDS: ENOXAPARIN 40MG/0.4ML SYRINGE (J1650 PER 10MG) SC SCH (08:07)
[2021-08-23] MEDS: INSULIN LISPRO (NovoLOG) PER UNIT SC SCH ×4 (08:07→20:02)
[2021-08-23] MEDS: ASPIRIN 81MG CHEW TABLET PO SCH (08:08)
[2021-08-23] MEDS: QUEtiapine FUMARATE 25 MG TAB PO SCH ×2 (08:08→20:07)
[2021-08-23] MEDS: DOCUSATE SODIUM 100MG CAPSULE PO SCH ×2 (08:08→20:07)
[2021-08-23] MEDS: ACETAMINOPHEN TAB 650MG DOSE (2X325MG) PO PRN ×3 (08:08→22:32)
[2021-08-23] MEDS: TAMSULOSIN 0.4 MG CAP PO SCH (08:08)
[2021-08-23] MEDS: ATORVASTATIN 20 MG TAB PO SCH (08:08)
[2021-08-23] MEDS: guaiFENesin 200 MG TAB PO PRN ×3 (08:08→20:07)
[2021-08-23] MEDS: amLODIPine 5 MG TAB PO SCH ×2 (08:08→20:07)
[2021-08-24 06:00] VITALS: BP 133/74
[2021-08-24] MEDS: ACETAMINOPHEN TAB 650MG DOSE (2X325MG) PO PRN ×3 (07:56→20:11)
[2021-08-24] MEDS: SODIUM CHLORIDE NASAL 0.65% SPRAY BTL (OCEAN) SCH ×3 (07:56→20:10)
[2021-08-24] MEDS: guaiFENesin 200 MG TAB PO PRN ×3 (07:56→20:06)
[2021-08-24] MEDS: ASPIRIN 81MG CHEW TABLET PO SCH (07:57)
[2021-08-24] MEDS: TAMSULOSIN 0.4 MG CAP PO SCH (07:57)
[2021-08-24] MEDS: QUEtiapine FUMARATE 25 MG TAB PO SCH ×2 (07:57→20:06)
[2021-08-24] MEDS: amLODIPine 5 MG TAB PO SCH ×2 (07:57→20:09)
[2021-08-24] MEDS: DOCUSATE SODIUM 100MG CAPSULE PO SCH ×2 (07:57→20:06)
[2021-08-24] MEDS: ATORVASTATIN 20 MG TAB PO SCH (07:57)
[2021-08-24] MEDS: ENOXAPARIN 40MG/0.4ML SYRINGE (J1650 PER 10MG) SC SCH (07:58)
[2021-08-24] MEDS: INSULIN LISPRO (NovoLOG) PER UNIT SC SCH ×4 (07:58→20:09)
[2021-08-24] MEDS: traMADol 50 MG TAB PO PRN ×2 (16:25→23:35)
[2021-08-24] MEDS: FLUTICASONE PROP 0.05% NASAL SPRAY 16 GM (FLONASE) NARES SCH (23:05)
[2021-08-25 00:24] LABS: RSV AMPLIFICATION NEGATIVE (NEGATIVE)
[2021-08-25] MEDS: traMADol 50 MG TAB PO PRN ×2 (06:51→14:52)
[2021-08-25 06:53] VITALS: BP 134/76
[2021-08-25] MEDS: INSULIN LISPRO (NovoLOG) PER UNIT SC SCH ×4 (08:18→20:05)
[2021-08-25] MEDS: ENOXAPARIN 40MG/0.4ML SYRINGE (J1650 PER 10MG) SC SCH (08:19)
[2021-08-25] MEDS: ATORVASTATIN 20 MG TAB PO SCH (08:20)
[2021-08-25] MEDS: QUEtiapine FUMARATE 25 MG TAB PO SCH ×2 (08:20→20:04)
[2021-08-25] MEDS: ASPIRIN 81MG CHEW TABLET PO SCH (08:20)
[2021-08-25] MEDS: amLODIPine 5 MG TAB PO SCH ×2 (08:20→20:05)
[2021-08-25] MEDS: FLUTICASONE PROP 0.05% NASAL SPRAY 16 GM (FLONASE) NARES SCH ×2 (08:20→20:04)
[2021-08-25] MEDS: DOCUSATE SODIUM 100MG CAPSULE PO SCH ×2 (08:20→20:04)
[2021-08-25] MEDS: SODIUM CHLORIDE NASAL 0.65% SPRAY BTL (OCEAN) SCH ×3 (08:21→20:04)
[2021-08-25] MEDS: TAMSULOSIN 0.4 MG CAP PO SCH (09:05)
[2021-08-25] MEDS: ACETAMINOPHEN TAB 650MG DOSE (2X325MG) PO PRN (20:05)
[2021-08-26 06:00] VITALS: BP 148/84
[2021-08-26] MEDS: QUEtiapine FUMARATE 25 MG TAB PO SCH ×2 (08:34→21:13)
[2021-08-26] MEDS: ATORVASTATIN 20 MG TAB PO SCH (08:34)
[2021-08-26] MEDS: ASPIRIN 81MG CHEW TABLET PO SCH (08:34)
[2021-08-26] MEDS: TAMSULOSIN 0.4 MG CAP PO SCH (08:34)
[2021-08-26] MEDS: DOCUSATE SODIUM 100MG CAPSULE PO SCH ×2 (08:34→21:10)
[2021-08-26] MEDS: amLODIPine 5 MG TAB PO SCH ×2 (08:35→21:15)
[2021-08-26] MEDS: FLUTICASONE PROP 0.05% NASAL SPRAY 16 GM (FLONASE) NARES SCH ×2 (08:36→21:00)
[2021-08-26] MEDS: ENOXAPARIN 40MG/0.4ML SYRINGE (J1650 PER 10MG) SC SCH (08:36)
[2021-08-26] MEDS: INSULIN LISPRO (NovoLOG) PER UNIT SC SCH ×4 (08:36→20:39)
[2021-08-26] MEDS: SODIUM CHLORIDE NASAL 0.65% SPRAY BTL (OCEAN) SCH ×3 (08:37→21:16)
[2021-08-26] MEDS: ACETAMINOPHEN TAB 650MG DOSE (2X325MG) PO PRN ×2 (13:57→21:12)
[2021-08-26] MEDS: traMADol 50 MG TAB PO PRN (18:49)
[2021-08-26] MEDS: guaiFENesin 200 MG TAB PO PRN (18:49)
[2021-08-27] MEDS: traMADol 50 MG TAB PO PRN ×3 (04:06→20:04)
[2021-08-27 06:00] VITALS: BP 139/86
[2021-08-27] MEDS: ATORVASTATIN 20 MG TAB PO SCH (10:04)
[2021-08-27] MEDS: ASPIRIN 81MG CHEW TABLET PO SCH (10:04)
[2021-08-27] MEDS: QUEtiapine FUMARATE 25 MG TAB PO SCH ×2 (10:04→20:02)
[2021-08-27] MEDS: TAMSULOSIN 0.4 MG CAP PO SCH (10:04)
[2021-08-27] MEDS: DOCUSATE SODIUM 100MG CAPSULE PO SCH ×2 (10:04→20:03)
[2021-08-27] MEDS: FLUTICASONE PROP 0.05% NASAL SPRAY 16 GM (FLONASE) NARES SCH ×2 (10:05→20:06)
[2021-08-27] MEDS: amLODIPine 5 MG TAB PO SCH ×2 (10:05→20:03)
[2021-08-27] MEDS: SODIUM CHLORIDE NASAL 0.65% SPRAY BTL (OCEAN) SCH ×3 (10:05→20:05)
[2021-08-27] MEDS: ENOXAPARIN 40MG/0.4ML SYRINGE (J1650 PER 10MG) SC SCH (10:05)
[2021-08-27] MEDS: INSULIN LISPRO (NovoLOG) PER UNIT SC SCH ×4 (10:08→20:14)
[2021-08-27] MEDS: ACETAMINOPHEN TAB 650MG DOSE (2X325MG) PO PRN (17:18)
[2021-08-28 06:00] VITALS: BP 143/84
[2021-08-28 07:12] LABS: HEMATOCRIT 39.3 % (42.0-52.0); HEMOGLOBIN 13.2 g/dl (13.5-17.5); MEAN CORPUSCULAR HEMOGLOBIN 29.1 pg (27.0-33.0); MEAN CORPUSCULAR HGB CONC 33.6 g/dl (32.0-36.5); MEAN CORPUSCULAR VOLUME 86.8 fl (80.0-96.0); PLATELET COUNT, AUTOMATED 237 10^3/uL (150-450); RED BLOOD COUNT 4.53 10^6/uL (4.30-6.10); WHITE BLOOD COUNT 6.1 10^3/uL (4.0-10.0)
[2021-08-28 07:38] LABS: BLOOD UREA NITROGEN 22 MG/DL (7-18); CALCIUM LEVEL 8.9 MG/DL (8.8-10.2); CARBON DIOXIDE LEVEL 26 MEQ/L (21-32); CHLORIDE LEVEL 99 MEQ/L (98-107); CREATININE FOR GFR 0.69 MG/DL (0.70-1.30); GLOMERULAR FILTRATION RATE > 60.0 (>42); GLUCOSE, FASTING 208 MG/DL (70-100); POTASSIUM SERUM 3.8 MEQ/L (3.5-5.1); SODIUM LEVEL 133 MEQ/L (136-145)
[2021-08-28] MEDS: DOCUSATE SODIUM 100MG CAPSULE PO SCH ×2 (08:33→21:38)
[2021-08-28] MEDS: ASPIRIN 81MG CHEW TABLET PO SCH (08:33)
[2021-08-28] MEDS: FLUTICASONE PROP 0.05% NASAL SPRAY 16 GM (FLONASE) NARES SCH ×2 (08:34→21:00)
[2021-08-28] MEDS: amLODIPine 5 MG TAB PO SCH ×2 (08:34→21:38)
[2021-08-28] MEDS: QUEtiapine FUMARATE 25 MG TAB PO SCH ×2 (08:34→21:38)
[2021-08-28] MEDS: SODIUM CHLORIDE NASAL 0.65% SPRAY BTL (OCEAN) SCH ×3 (08:34→21:39)
[2021-08-28] MEDS: ATORVASTATIN 20 MG TAB PO SCH (08:34)
[2021-08-28] MEDS: TAMSULOSIN 0.4 MG CAP PO SCH (08:34)
[2021-08-28] MEDS: INSULIN LISPRO (NovoLOG) PER UNIT SC SCH ×4 (08:35→21:00)
[2021-08-28] MEDS: ENOXAPARIN 40MG/0.4ML SYRINGE (J1650 PER 10MG) SC SCH (08:35)
[2021-08-28] MEDS: ACETAMINOPHEN TAB 650MG DOSE (2X325MG) PO PRN (11:16)
[2021-08-28] MEDS: traMADol 50 MG TAB PO PRN ×2 (15:56→21:42)
[2021-08-29] MEDS: traMADol 50 MG TAB PO PRN ×3 (04:07→22:01)
[2021-08-29] MEDS: INSULIN LISPRO (NovoLOG) PER UNIT SC SCH ×4 (07:44→20:25)
[2021-08-29] MEDS: ACETAMINOPHEN TAB 650MG DOSE (2X325MG) PO PRN ×2 (09:50→20:24)
[2021-08-29] MEDS: ENOXAPARIN 40MG/0.4ML SYRINGE (J1650 PER 10MG) SC SCH (09:50)
[2021-08-29] MEDS: FLUTICASONE PROP 0.05% NASAL SPRAY 16 GM (FLONASE) NARES SCH ×2 (09:50→20:24)
[2021-08-29] MEDS: DOCUSATE SODIUM 100MG CAPSULE PO SCH ×2 (09:51→20:22)
[2021-08-29] MEDS: TAMSULOSIN 0.4 MG CAP PO SCH (09:51)
[2021-08-29] MEDS: QUEtiapine FUMARATE 25 MG TAB PO SCH ×2 (09:51→20:22)
[2021-08-29] MEDS: ATORVASTATIN 20 MG TAB PO SCH (09:51)
[2021-08-29] MEDS: ASPIRIN 81MG CHEW TABLET PO SCH (09:51)
[2021-08-29] MEDS: SODIUM CHLORIDE NASAL 0.65% SPRAY BTL (OCEAN) SCH ×3 (09:51→20:25)
[2021-08-29] MEDS: amLODIPine 5 MG TAB PO SCH ×2 (09:53→20:23)
[2021-08-29] MEDS: guaiFENesin 200 MG TAB PO PRN (20:22)
[2021-08-30 06:00] VITALS: BP 138/76
[2021-08-30] MEDS: amLODIPine 5 MG TAB PO SCH ×2 (09:09→20:30)
[2021-08-30] MEDS: ASPIRIN 81MG CHEW TABLET PO SCH (09:09)
[2021-08-30] MEDS: TAMSULOSIN 0.4 MG CAP PO SCH (09:09)
[2021-08-30] MEDS: QUEtiapine FUMARATE 25 MG TAB PO SCH ×2 (09:09→20:29)
[2021-08-30] MEDS: DOCUSATE SODIUM 100MG CAPSULE PO SCH ×2 (09:09→20:29)
[2021-08-30] MEDS: ATORVASTATIN 20 MG TAB PO SCH (09:09)
[2021-08-30] MEDS: INSULIN LISPRO (NovoLOG) PER UNIT SC SCH ×4 (09:10→20:28)
[2021-08-30] MEDS: FLUTICASONE PROP 0.05% NASAL SPRAY 16 GM (FLONASE) NARES SCH (09:10)
[2021-08-30] MEDS: ENOXAPARIN 40MG/0.4ML SYRINGE (J1650 PER 10MG) SC SCH (09:10)
[2021-08-30] MEDS: SODIUM CHLORIDE NASAL 0.65% SPRAY BTL (OCEAN) SCH ×3 (09:11→20:29)
[2021-08-30] MEDS: traMADol 50 MG TAB PO PRN ×2 (12:08→18:54)
[2021-08-30] MEDS: guaiFENesin 200 MG TAB PO PRN (20:31)
[2021-08-30] MEDS: ACETAMINOPHEN TAB 650MG DOSE (2X325MG) PO PRN (22:40)
[2021-08-31] MEDS: traMADol 50 MG TAB PO PRN ×4 (01:28→21:55)
[2021-08-31 06:00] VITALS: BP 127/82
[2021-08-31] MEDS: ENOXAPARIN 40MG/0.4ML SYRINGE (J1650 PER 10MG) SC SCH (08:26)
[2021-08-31] MEDS: INSULIN LISPRO (NovoLOG) PER UNIT SC SCH ×4 (08:26→19:44)
[2021-08-31] MEDS: DOCUSATE SODIUM 100MG CAPSULE PO SCH ×2 (08:26→19:10)
[2021-08-31] MEDS: TAMSULOSIN 0.4 MG CAP PO SCH (08:27)
[2021-08-31] MEDS: QUEtiapine FUMARATE 25 MG TAB PO SCH ×2 (08:27→19:10)
[2021-08-31] MEDS: ATORVASTATIN 20 MG TAB PO SCH (08:27)
[2021-08-31] MEDS: ASPIRIN 81MG CHEW TABLET PO SCH (08:27)
[2021-08-31] MEDS: amLODIPine 5 MG TAB PO SCH ×2 (08:27→19:11)
[2021-08-31] MEDS: SODIUM CHLORIDE NASAL 0.65% SPRAY BTL (OCEAN) SCH ×3 (08:28→19:11)
[2021-08-31] MEDS: guaiFENesin 200 MG TAB PO PRN (19:15)
[2021-09-01] MEDS: traMADol 50 MG TAB PO PRN ×2 (04:33→15:11)
[2021-09-01 06:00] VITALS: BP 141/82
[2021-09-01] MEDS: INSULIN LISPRO (NovoLOG) PER UNIT SC SCH ×4 (07:34→20:10)
[2021-09-01] MEDS: QUEtiapine FUMARATE 25 MG TAB PO SCH ×2 (08:09→20:27)
[2021-09-01] MEDS: ATORVASTATIN 20 MG TAB PO SCH (08:09)
[2021-09-01] MEDS: DOCUSATE SODIUM 100MG CAPSULE PO SCH ×2 (08:09→20:26)
[2021-09-01] MEDS: ASPIRIN 81MG CHEW TABLET PO SCH (08:09)
[2021-09-01] MEDS: TAMSULOSIN 0.4 MG CAP PO SCH (08:09)
[2021-09-01] MEDS: amLODIPine 5 MG TAB PO SCH ×2 (08:10→20:27)
[2021-09-01] MEDS: ENOXAPARIN 40MG/0.4ML SYRINGE (J1650 PER 10MG) SC SCH (08:10)
[2021-09-01] MEDS: SODIUM CHLORIDE NASAL 0.65% SPRAY BTL (OCEAN) SCH ×3 (08:10→20:26)
[2021-09-01] MEDS: guaiFENesin 200 MG TAB PO PRN ×2 (15:10→20:32)
[2021-09-01] MEDS: ACETAMINOPHEN TAB 650MG DOSE (2X325MG) PO PRN (20:32)
[2021-09-02 06:00] VITALS: BP 136/81
[2021-09-02] MEDS: ATORVASTATIN 20 MG TAB PO SCH (08:56)
[2021-09-02] MEDS: QUEtiapine FUMARATE 25 MG TAB PO SCH ×2 (08:56→20:01)
[2021-09-02] MEDS: DOCUSATE SODIUM 100MG CAPSULE PO SCH ×2 (08:56→20:01)
[2021-09-02] MEDS: amLODIPine 5 MG TAB PO SCH ×2 (08:56→20:01)
[2021-09-02] MEDS: ASPIRIN 81MG CHEW TABLET PO SCH (08:56)
[2021-09-02] MEDS: TAMSULOSIN 0.4 MG CAP PO SCH (08:56)
[2021-09-02] MEDS: ENOXAPARIN 40MG/0.4ML SYRINGE (J1650 PER 10MG) SC SCH (08:56)
[2021-09-02] MEDS: SODIUM CHLORIDE NASAL 0.65% SPRAY BTL (OCEAN) SCH ×3 (08:57→20:01)
[2021-09-02] MEDS: INSULIN LISPRO (NovoLOG) PER UNIT SC SCH ×4 (08:57→20:02)
[2021-09-02] MEDS: traMADol 50 MG TAB PO PRN ×2 (12:42→20:08)
[2021-09-02] MEDS: guaiFENesin 200 MG TAB PO PRN ×2 (12:42→20:08)
[2021-09-03] MEDS: traMADol 50 MG TAB PO PRN ×3 (02:13→20:16)
[2021-09-03 06:00] VITALS: BP 138/78
[2021-09-03] MEDS: ASPIRIN 81MG CHEW TABLET PO SCH (10:16)
[2021-09-03] MEDS: INSULIN LISPRO (NovoLOG) PER UNIT SC SCH ×4 (10:16→20:29)
[2021-09-03] MEDS: DOCUSATE SODIUM 100MG CAPSULE PO SCH ×2 (10:16→20:14)
[2021-09-03] MEDS: TAMSULOSIN 0.4 MG CAP PO SCH (10:17)
[2021-09-03] MEDS: QUEtiapine FUMARATE 25 MG TAB PO SCH ×2 (10:17→20:15)
[2021-09-03] MEDS: ATORVASTATIN 20 MG TAB PO SCH (10:17)
[2021-09-03] MEDS: SODIUM CHLORIDE NASAL 0.65% SPRAY BTL (OCEAN) SCH ×3 (10:18→20:15)
[2021-09-03] MEDS: amLODIPine 5 MG TAB PO SCH ×2 (10:18→20:15)
[2021-09-03] MEDS: guaiFENesin 200 MG TAB PO PRN (20:15)
[2021-09-04] MEDS: ACETAMINOPHEN TAB 650MG DOSE (2X325MG) PO PRN ×2 (00:09→20:33)
[2021-09-04 06:39] VITALS: BP 120/71
[2021-09-04] MEDS: DOCUSATE SODIUM 100MG CAPSULE PO SCH ×2 (08:13→20:33)
[2021-09-04] MEDS: TAMSULOSIN 0.4 MG CAP PO SCH (08:14)
[2021-09-04] MEDS: amLODIPine 5 MG TAB PO SCH ×2 (08:14→20:34)
[2021-09-04] MEDS: ASPIRIN 81MG CHEW TABLET PO SCH (08:14)
[2021-09-04] MEDS: traMADol 50 MG TAB PO PRN ×3 (08:14→23:34)
[2021-09-04] MEDS: ATORVASTATIN 20 MG TAB PO SCH (08:14)
[2021-09-04] MEDS: QUEtiapine FUMARATE 25 MG TAB PO SCH ×2 (08:15→20:35)
[2021-09-04] MEDS: SODIUM CHLORIDE NASAL 0.65% SPRAY BTL (OCEAN) SCH ×3 (08:15→20:35)
[2021-09-04] MEDS: INSULIN LISPRO (NovoLOG) PER UNIT SC SCH ×4 (08:16→20:27)
[2021-09-04 10:22] LABS: HEMATOCRIT 38.2 % (42.0-52.0); MEAN CORPUSCULAR HEMOGLOBIN 29.2 pg (27.0-33.0); MEAN CORPUSCULAR VOLUME 85.8 fl (80.0-96.0); PLATELET COUNT, AUTOMATED 220 10^3/uL (150-450); RED BLOOD COUNT 4.45 10^6/uL (4.30-6.10); WHITE BLOOD COUNT 5.8 10^3/uL (4.0-10.0)
[2021-09-04 10:50] LABS: BLOOD UREA NITROGEN 19 MG/DL (7-18); CALCIUM LEVEL 8.9 MG/DL (8.8-10.2); CARBON DIOXIDE LEVEL 25 MEQ/L (21-32); CHLORIDE LEVEL 100 MEQ/L (98-107); CREATININE FOR GFR 0.63 MG/DL (0.70-1.30); GLOMERULAR FILTRATION RATE > 60.0 (>42); GLUCOSE, FASTING 217 MG/DL (70-100); POTASSIUM SERUM 3.8 MEQ/L (3.5-5.1); SODIUM LEVEL 134 MEQ/L (136-145)
[2021-09-04 10:51] LABS: ALBUMIN 3.1 GM/DL (3.2-5.2); ALKALINE PHOSPHATASE 160 U/L (45-117); ALT/SGPT 29 U/L (12-78); AST/SGOT 12 U/L (7-37); BILIRUBIN,TOTAL 0.5 MG/DL (0.2-1.0); TOTAL PROTEIN 6.4 GM/DL (6.4-8.2)
[2021-09-04] MEDS: ENOXAPARIN 40MG/0.4ML SYRINGE (J1650 PER 10MG) SC SCH ×2 (18:44→18:45)
[2021-09-05 06:00] VITALS: BP 133/85
[2021-09-05] MEDS: ASPIRIN 81MG CHEW TABLET PO SCH (09:12)
[2021-09-05] MEDS: INSULIN LISPRO (NovoLOG) PER UNIT SC SCH ×4 (09:12→20:00)
[2021-09-05] MEDS: DOCUSATE SODIUM 100MG CAPSULE PO SCH ×2 (09:12→20:10)
[2021-09-05] MEDS: QUEtiapine FUMARATE 25 MG TAB PO SCH ×2 (09:12→20:11)
[2021-09-05] MEDS: amLODIPine 5 MG TAB PO SCH ×2 (09:13→20:11)
[2021-09-05] MEDS: SODIUM CHLORIDE NASAL 0.65% SPRAY BTL (OCEAN) SCH ×3 (09:13→20:11)
[2021-09-05] MEDS: TAMSULOSIN 0.4 MG CAP PO SCH (09:13)
[2021-09-05] MEDS: ATORVASTATIN 20 MG TAB PO SCH (09:13)
[2021-09-05] MEDS: ENOXAPARIN 40MG/0.4ML SYRINGE (J1650 PER 10MG) SC SCH (09:16)
[2021-09-05] MEDS: ACETAMINOPHEN TAB 650MG DOSE (2X325MG) PO PRN (14:50)
[2021-09-05] MEDS: guaiFENesin 200 MG TAB PO PRN (17:36)
[2021-09-05] MEDS: traMADol 50 MG TAB PO PRN (20:11)
[2021-09-06 05:57] VITALS: BP 140/78
[2021-09-06] MEDS: ATORVASTATIN 20 MG TAB PO SCH (08:43)
[2021-09-06] MEDS: TAMSULOSIN 0.4 MG CAP PO SCH (08:43)
[2021-09-06] MEDS: ASPIRIN 81MG CHEW TABLET PO SCH (08:43)
[2021-09-06] MEDS: SODIUM CHLORIDE NASAL 0.65% SPRAY BTL (OCEAN) SCH ×3 (08:43→21:10)
[2021-09-06] MEDS: DOCUSATE SODIUM 100MG CAPSULE PO SCH ×2 (08:43→21:09)
[2021-09-06] MEDS: QUEtiapine FUMARATE 25 MG TAB PO SCH ×2 (08:43→21:09)
[2021-09-06] MEDS: ENOXAPARIN 40MG/0.4ML SYRINGE (J1650 PER 10MG) SC SCH (08:44)
[2021-09-06] MEDS: amLODIPine 5 MG TAB PO SCH ×2 (08:44→21:10)
[2021-09-06] MEDS: INSULIN LISPRO (NovoLOG) PER UNIT SC SCH ×4 (08:45→21:00)
[2021-09-06] MEDS: ACETAMINOPHEN TAB 650MG DOSE (2X325MG) PO PRN (13:00)
[2021-09-06] MEDS: traMADol 50 MG TAB PO PRN (17:41)
[2021-09-06] MEDS: guaiFENesin 200 MG TAB PO PRN (17:46)
[2021-09-07] MEDS: traMADol 50 MG TAB PO PRN ×2 (04:42→15:43)
[2021-09-07 06:00] VITALS: BP 117/74
[2021-09-07] MEDS: QUEtiapine FUMARATE 25 MG TAB PO SCH ×2 (08:35→20:12)
[2021-09-07] MEDS: TAMSULOSIN 0.4 MG CAP PO SCH (08:35)
[2021-09-07] MEDS: ATORVASTATIN 20 MG TAB PO SCH (08:35)
[2021-09-07] MEDS: DOCUSATE SODIUM 100MG CAPSULE PO SCH ×2 (08:35→20:11)
[2021-09-07] MEDS: ASPIRIN 81MG CHEW TABLET PO SCH (08:35)
[2021-09-07] MEDS: amLODIPine 5 MG TAB PO SCH ×2 (08:36→20:12)
[2021-09-07] MEDS: ENOXAPARIN 40MG/0.4ML SYRINGE (J1650 PER 10MG) SC SCH ×2 (08:36→08:47)
[2021-09-07] MEDS: INSULIN LISPRO (NovoLOG) PER UNIT SC SCH ×4 (08:37→20:12)
[2021-09-07] MEDS: SODIUM CHLORIDE NASAL 0.65% SPRAY BTL (OCEAN) SCH ×3 (08:37→20:12)
[2021-09-07] MEDS: guaiFENesin 200 MG TAB PO PRN (20:12)
[2021-09-07] MEDS: ACETAMINOPHEN TAB 650MG DOSE (2X325MG) PO PRN (20:13)
[2021-09-08] MEDS: traMADol 50 MG TAB PO PRN ×2 (02:13→17:41)
[2021-09-08 05:36] VITALS: BP 127/76
[2021-09-08] MEDS: ENOXAPARIN 40MG/0.4ML SYRINGE (J1650 PER 10MG) SC SCH ×2 (08:37→08:42)
[2021-09-08] MEDS: SODIUM CHLORIDE NASAL 0.65% SPRAY BTL (OCEAN) SCH ×3 (08:37→20:08)
[2021-09-08] MEDS: INSULIN LISPRO (NovoLOG) PER UNIT SC SCH ×4 (08:38→20:08)
[2021-09-08] MEDS: ATORVASTATIN 20 MG TAB PO SCH (08:38)
[2021-09-08] MEDS: DOCUSATE SODIUM 100MG CAPSULE PO SCH ×2 (08:38→20:07)
[2021-09-08] MEDS: QUEtiapine FUMARATE 25 MG TAB PO SCH ×2 (08:39→20:08)
[2021-09-08] MEDS: ASPIRIN 81MG CHEW TABLET PO SCH (08:39)
[2021-09-08] MEDS: amLODIPine 5 MG TAB PO SCH ×2 (08:39→20:08)
[2021-09-08] MEDS: TAMSULOSIN 0.4 MG CAP PO SCH (08:39)
[2021-09-08] MEDS: ACETAMINOPHEN TAB 650MG DOSE (2X325MG) PO PRN ×2 (11:20→20:10)
[2021-09-08] MEDS: guaiFENesin 200 MG TAB PO PRN ×3 (11:20→23:19)
[2021-09-08 20:15] VITALS: BP 131/76
[2021-09-08] MEDS: RAMELTEON 8 MG TAB (ROZEREM) PO PRN (23:19)
[2021-09-09] MEDS: traMADol 50 MG TAB PO PRN ×3 (04:26→20:07)
[2021-09-09 05:09] VITALS: BP 115/62
[2021-09-09] MEDS: guaiFENesin 200 MG TAB PO PRN ×2 (05:10→20:06)
[2021-09-09 06:03] LABS: BASO # 0.1 10^3/uL (0.0-0.2); BASO % 0.9 % (0.0-1.0); EOS # 0.3 10^3/uL (0.0-0.5); EOS % 4.6 % (0.0-3.0); HEMATOCRIT 38.3 % (42.0-52.0); HEMOGLOBIN 12.9 g/dl (13.5-17.5); LYMPH # 2.2 10^3/uL (1.5-5.0); LYMPH % 38.5 % (24.0-44.0); MEAN CORPUSCULAR HEMOGLOBIN 29.3 pg (27.0-33.0); MEAN CORPUSCULAR HGB CONC 33.7 g/dl (32.0-36.5); MONO # 0.5 10^3/uL (0.0-0.8); MONO % 8.9 % (2.0-8.0); NEUTROPHILS # 2.6 10^3/uL (1.5-8.5); NEUTROPHILS % 46.7 % (36.0-66.0); PLATELET COUNT, AUTOMATED 220 10^3/uL (150-450); WHITE BLOOD COUNT 5.6 10^3/uL (4.0-10.0)
[2021-09-09 06:32] LABS: BLOOD UREA NITROGEN 23 MG/DL (7-18); CALCIUM LEVEL 8.5 MG/DL (8.8-10.2); CARBON DIOXIDE LEVEL 26 MEQ/L (21-32); CHLORIDE LEVEL 100 MEQ/L (98-107); CREATININE FOR GFR 0.65 MG/DL (0.70-1.30); GLOMERULAR FILTRATION RATE > 60.0 (>42); GLUCOSE, FASTING 196 MG/DL (70-100); POTASSIUM SERUM 3.8 MEQ/L (3.5-5.1); SODIUM LEVEL 134 MEQ/L (136-145)
[2021-09-09] MEDS: QUEtiapine FUMARATE 25 MG TAB PO SCH ×2 (08:28→20:06)
[2021-09-09] MEDS: ATORVASTATIN 20 MG TAB PO SCH (08:28)
[2021-09-09] MEDS: ASPIRIN 81MG CHEW TABLET PO SCH (08:28)
[2021-09-09] MEDS: TAMSULOSIN 0.4 MG CAP PO SCH (08:28)
[2021-09-09] MEDS: DOCUSATE SODIUM 100MG CAPSULE PO SCH ×2 (08:28→20:05)
[2021-09-09] MEDS: amLODIPine 5 MG TAB PO SCH ×2 (08:28→20:06)
[2021-09-09] MEDS: ENOXAPARIN 40MG/0.4ML SYRINGE (J1650 PER 10MG) SC SCH (08:29)
[2021-09-09] MEDS: INSULIN LISPRO (NovoLOG) PER UNIT SC SCH ×4 (08:29→20:06)
[2021-09-09] MEDS: SODIUM CHLORIDE NASAL 0.65% SPRAY BTL (OCEAN) SCH ×3 (08:30→20:06)
[2021-09-09] MEDS: RAMELTEON 8 MG TAB (ROZEREM) PO PRN (20:06)
[2021-09-10] MEDS: ACETAMINOPHEN TAB 650MG DOSE (2X325MG) PO PRN (00:29)
[2021-09-10 06:00] VITALS: BP 142/73
[2021-09-10] MEDS: QUEtiapine FUMARATE 25 MG TAB PO SCH ×2 (08:05→20:09)
[2021-09-10] MEDS: ASPIRIN 81MG CHEW TABLET PO SCH (08:05)
[2021-09-10] MEDS: DOCUSATE SODIUM 100MG CAPSULE PO SCH ×2 (08:05→20:09)
[2021-09-10] MEDS: ATORVASTATIN 20 MG TAB PO SCH (08:05)
[2021-09-10] MEDS: TAMSULOSIN 0.4 MG CAP PO SCH (08:05)
[2021-09-10] MEDS: ENOXAPARIN 40MG/0.4ML SYRINGE (J1650 PER 10MG) SC SCH (08:05)
[2021-09-10] MEDS: INSULIN LISPRO (NovoLOG) PER UNIT SC SCH ×4 (08:05→19:44)
[2021-09-10] MEDS: SODIUM CHLORIDE NASAL 0.65% SPRAY BTL (OCEAN) SCH ×3 (08:05→20:09)
[2021-09-10] MEDS: amLODIPine 5 MG TAB PO SCH ×2 (08:09→20:09)
[2021-09-10] MEDS: guaiFENesin 200 MG TAB PO PRN ×2 (12:57→20:14)
[2021-09-10] MEDS: traMADol 50 MG TAB PO PRN ×2 (12:58→20:14)
[2021-09-11] MEDS: traMADol 50 MG TAB PO PRN ×3 (03:46→20:17)
[2021-09-11 06:00] VITALS: BP 126/79
[2021-09-11] MEDS: INSULIN LISPRO (NovoLOG) PER UNIT SC SCH ×4 (08:29→19:39)
[2021-09-11] MEDS: ASPIRIN 81MG CHEW TABLET PO SCH (08:29)
[2021-09-11] MEDS: ENOXAPARIN 40MG/0.4ML SYRINGE (J1650 PER 10MG) SC SCH (08:30)
[2021-09-11] MEDS: TAMSULOSIN 0.4 MG CAP PO SCH (08:30)
[2021-09-11] MEDS: QUEtiapine FUMARATE 25 MG TAB PO SCH ×2 (08:30→20:17)
[2021-09-11] MEDS: DOCUSATE SODIUM 100MG CAPSULE PO SCH ×2 (08:30→20:17)
[2021-09-11] MEDS: ATORVASTATIN 20 MG TAB PO SCH (08:30)
[2021-09-11] MEDS: SODIUM CHLORIDE NASAL 0.65% SPRAY BTL (OCEAN) SCH ×3 (08:31→20:19)
[2021-09-11] MEDS: amLODIPine 5 MG TAB PO SCH ×2 (08:34→20:19)
[2021-09-11] MEDS: guaiFENesin 200 MG TAB PO PRN ×2 (12:08→20:17)
[2021-09-12] MEDS: guaiFENesin 200 MG TAB PO PRN ×2 (04:41→19:48)
[2021-09-12] MEDS: traMADol 50 MG TAB PO PRN ×2 (04:41→19:48)
[2021-09-12 06:00] VITALS: BP 134/78
[2021-09-12] MEDS: QUEtiapine FUMARATE 25 MG TAB PO SCH ×2 (08:04→19:48)
[2021-09-12] MEDS: INSULIN LISPRO (NovoLOG) PER UNIT SC SCH ×4 (08:04→19:49)
[2021-09-12] MEDS: ENOXAPARIN 40MG/0.4ML SYRINGE (J1650 PER 10MG) SC SCH (08:04)
[2021-09-12] MEDS: ATORVASTATIN 20 MG TAB PO SCH (08:05)
[2021-09-12] MEDS: DOCUSATE SODIUM 100MG CAPSULE PO SCH ×2 (08:05→19:48)
[2021-09-12] MEDS: ASPIRIN 81MG CHEW TABLET PO SCH (08:05)
[2021-09-12] MEDS: TAMSULOSIN 0.4 MG CAP PO SCH (08:05)
[2021-09-12] MEDS: amLODIPine 5 MG TAB PO SCH ×2 (08:07→19:48)
[2021-09-12] MEDS: SODIUM CHLORIDE NASAL 0.65% SPRAY BTL (OCEAN) SCH ×3 (08:07→19:49)
[2021-09-12] MEDS: ACETAMINOPHEN TAB 650MG DOSE (2X325MG) PO PRN (21:57)
[2021-09-13 05:53] VITALS: BP 122/74
[2021-09-13] MEDS: ENOXAPARIN 40MG/0.4ML SYRINGE (J1650 PER 10MG) SC SCH (08:12)
[2021-09-13] MEDS: SODIUM CHLORIDE NASAL 0.65% SPRAY BTL (OCEAN) SCH ×3 (08:13→20:01)
[2021-09-13] MEDS: INSULIN LISPRO (NovoLOG) PER UNIT SC SCH ×4 (08:13→19:56)
[2021-09-13] MEDS: DOCUSATE SODIUM 100MG CAPSULE PO SCH ×2 (08:13→20:02)
[2021-09-13] MEDS: ATORVASTATIN 20 MG TAB PO SCH (08:13)
[2021-09-13] MEDS: QUEtiapine FUMARATE 25 MG TAB PO SCH ×2 (08:13→20:02)
[2021-09-13] MEDS: ASPIRIN 81MG CHEW TABLET PO SCH (08:13)
[2021-09-13] MEDS: TAMSULOSIN 0.4 MG CAP PO SCH (08:13)
[2021-09-13] MEDS: amLODIPine 5 MG TAB PO SCH ×2 (08:15→20:02)
[2021-09-13] MEDS: guaiFENesin 200 MG TAB PO PRN ×2 (11:26→18:59)
[2021-09-13] MEDS: traMADol 50 MG TAB PO PRN ×2 (11:27→19:00)
[2021-09-14] MEDS: ACETAMINOPHEN TAB 650MG DOSE (2X325MG) PO PRN (00:09)
[2021-09-14] MEDS: traMADol 50 MG TAB PO PRN ×3 (03:13→20:10)
[2021-09-14 06:00] VITALS: BP 128/76
[2021-09-14] MEDS: ASPIRIN 81MG CHEW TABLET PO SCH (08:16)
[2021-09-14] MEDS: ATORVASTATIN 20 MG TAB PO SCH (08:17)
[2021-09-14] MEDS: QUEtiapine FUMARATE 25 MG TAB PO SCH ×2 (08:17→20:10)
[2021-09-14] MEDS: DOCUSATE SODIUM 100MG CAPSULE PO SCH ×2 (08:17→20:10)
[2021-09-14] MEDS: ENOXAPARIN 40MG/0.4ML SYRINGE (J1650 PER 10MG) SC SCH (08:18)
[2021-09-14] MEDS: TAMSULOSIN 0.4 MG CAP PO SCH (08:18)
[2021-09-14] MEDS: amLODIPine 5 MG TAB PO SCH ×2 (08:18→20:10)
[2021-09-14] MEDS: INSULIN LISPRO (NovoLOG) PER UNIT SC SCH ×4 (08:19→20:12)
[2021-09-14] MEDS: SODIUM CHLORIDE NASAL 0.65% SPRAY BTL (OCEAN) SCH ×3 (08:20→20:12)
[2021-09-14] MEDS: LEVEMIR (INSULIN DETEMIR) 1 UNITS/0.01ML SC SCH ×2 (09:43→20:11)
[2021-09-14] MEDS: guaiFENesin 200 MG TAB PO PRN ×2 (12:26→20:10)
[2021-09-14 16:29] VITALS: BP 121/72
[2021-09-14 16:42] LABS: BLOOD UREA NITROGEN 20 MG/DL (7-18); C REACTIVE PROTEIN QUANTITATIV 0.87 MG/DL (0.00-0.30); CALCIUM LEVEL 9.3 MG/DL (8.8-10.2); CARBON DIOXIDE LEVEL 29 MEQ/L (21-32); CHLORIDE LEVEL 95 MEQ/L (98-107); CREATININE FOR GFR 0.74 MG/DL (0.70-1.30); GLOMERULAR FILTRATION RATE > 60.0 (>42); GLUCOSE, FASTING 195 MG/DL (70-100); MAGNESIUM LEVEL 1.9 MG/DL (1.8-2.4); NT-PRO BNP 156 PG/ML (<125); POTASSIUM SERUM 3.3 MEQ/L (3.5-5.1); SODIUM LEVEL 132 MEQ/L (136-145)
[2021-09-14] MEDS: POTASSIUM CHLORIDE 10MEQ SR TABLET PO SCH (20:10)
[2021-09-15] MEDS: traMADol 50 MG TAB PO PRN ×3 (04:18→20:05)
[2021-09-15 04:58] VITALS: BP 137/82
[2021-09-15] MEDS: ATORVASTATIN 20 MG TAB PO SCH (08:44)
[2021-09-15] MEDS: POTASSIUM CHLORIDE 10MEQ SR TABLET PO SCH ×2 (08:44→20:04)
[2021-09-15] MEDS: ASPIRIN 81MG CHEW TABLET PO SCH (08:44)
[2021-09-15] MEDS: DOCUSATE SODIUM 100MG CAPSULE PO SCH ×2 (08:44→20:04)
[2021-09-15] MEDS: TAMSULOSIN 0.4 MG CAP PO SCH (08:44)
[2021-09-15] MEDS: QUEtiapine FUMARATE 25 MG TAB PO SCH ×2 (08:44→20:04)
[2021-09-15] MEDS: INSULIN LISPRO (NovoLOG) PER UNIT SC SCH ×4 (08:45→19:56)
[2021-09-15] MEDS: ENOXAPARIN 40MG/0.4ML SYRINGE (J1650 PER 10MG) SC SCH (08:45)
[2021-09-15] MEDS: LEVEMIR (INSULIN DETEMIR) 1 UNITS/0.01ML SC SCH ×2 (08:45→20:04)
[2021-09-15] MEDS: amLODIPine 5 MG TAB PO SCH ×2 (08:46→20:06)
[2021-09-15] MEDS: ACETAMINOPHEN TAB 650MG DOSE (2X325MG) PO PRN (08:47)
[2021-09-15] MEDS: SODIUM CHLORIDE NASAL 0.65% SPRAY BTL (OCEAN) SCH ×3 (08:47→20:07)
[2021-09-15] MEDS: guaiFENesin 200 MG TAB PO PRN (17:28)
[2021-09-16] MEDS: ACETAMINOPHEN TAB 650MG DOSE (2X325MG) PO PRN (01:08)
[2021-09-16] MEDS: traMADol 50 MG TAB PO PRN ×3 (02:36→20:18)
[2021-09-16 06:00] VITALS: BP 116/74
[2021-09-16] MEDS: POTASSIUM CHLORIDE 10MEQ SR TABLET PO SCH ×2 (08:36→20:17)
[2021-09-16] MEDS: ATORVASTATIN 20 MG TAB PO SCH (08:36)
[2021-09-16] MEDS: TAMSULOSIN 0.4 MG CAP PO SCH (08:36)
[2021-09-16] MEDS: QUEtiapine FUMARATE 25 MG TAB PO SCH ×2 (08:36→20:17)
[2021-09-16] MEDS: DOCUSATE SODIUM 100MG CAPSULE PO SCH ×2 (08:36→20:17)
[2021-09-16] MEDS: ENOXAPARIN 40MG/0.4ML SYRINGE (J1650 PER 10MG) SC SCH (08:36)
[2021-09-16] MEDS: ASPIRIN 81MG CHEW TABLET PO SCH (08:36)
[2021-09-16] MEDS: SODIUM CHLORIDE NASAL 0.65% SPRAY BTL (OCEAN) SCH ×3 (08:37→20:17)
[2021-09-16] MEDS: INSULIN LISPRO (NovoLOG) PER UNIT SC SCH ×4 (08:37→19:53)
[2021-09-16] MEDS: LEVEMIR (INSULIN DETEMIR) 1 UNITS/0.01ML SC SCH ×2 (08:37→20:18)
[2021-09-16] MEDS: amLODIPine 5 MG TAB PO SCH ×2 (08:42→20:20)
[2021-09-16] MEDS: guaiFENesin 200 MG TAB PO PRN (20:17)
[2021-09-17 06:00] VITALS: BP 139/77
[2021-09-17] MEDS: traMADol 50 MG TAB PO PRN ×3 (06:24→19:16)
[2021-09-17] MEDS: INSULIN LISPRO (NovoLOG) PER UNIT SC SCH ×4 (07:30→20:28)
[2021-09-17] MEDS: ENOXAPARIN 40MG/0.4ML SYRINGE (J1650 PER 10MG) SC SCH (08:41)
[2021-09-17] MEDS: ASPIRIN 81MG CHEW TABLET PO SCH (08:41)
[2021-09-17] MEDS: POTASSIUM CHLORIDE 10MEQ SR TABLET PO SCH ×2 (08:41→20:28)
[2021-09-17] MEDS: ATORVASTATIN 20 MG TAB PO SCH (08:41)
[2021-09-17] MEDS: DOCUSATE SODIUM 100MG CAPSULE PO SCH ×2 (08:42→20:27)
[2021-09-17] MEDS: amLODIPine 5 MG TAB PO SCH ×2 (08:42→20:27)
[2021-09-17] MEDS: LEVEMIR (INSULIN DETEMIR) 1 UNITS/0.01ML SC SCH ×2 (08:42→20:28)
[2021-09-17] MEDS: TAMSULOSIN 0.4 MG CAP PO SCH (08:42)
[2021-09-17] MEDS: QUEtiapine FUMARATE 25 MG TAB PO SCH ×2 (08:42→20:27)
[2021-09-17] MEDS: SODIUM CHLORIDE NASAL 0.65% SPRAY BTL (OCEAN) SCH ×3 (09:00→20:29)
[2021-09-17] MEDS: guaiFENesin 200 MG TAB PO PRN (19:16)
[2021-09-18] MEDS: traMADol 50 MG TAB PO PRN ×3 (05:54→21:17)
[2021-09-18 05:57] VITALS: BP 131/81
[2021-09-18] MEDS: POTASSIUM CHLORIDE 10MEQ SR TABLET PO SCH ×2 (08:10→21:19)
[2021-09-18] MEDS: DOCUSATE SODIUM 100MG CAPSULE PO SCH ×2 (08:10→21:17)
[2021-09-18] MEDS: ENOXAPARIN 40MG/0.4ML SYRINGE (J1650 PER 10MG) SC SCH (08:11)
[2021-09-18] MEDS: amLODIPine 5 MG TAB PO SCH ×2 (08:12→21:18)
[2021-09-18] MEDS: ATORVASTATIN 20 MG TAB PO SCH (08:12)
[2021-09-18] MEDS: ASPIRIN 81MG CHEW TABLET PO SCH (08:12)
[2021-09-18] MEDS: INSULIN LISPRO (NovoLOG) PER UNIT SC SCH ×4 (08:12→21:00)
[2021-09-18] MEDS: TAMSULOSIN 0.4 MG CAP PO SCH (08:12)
[2021-09-18] MEDS: QUEtiapine FUMARATE 25 MG TAB PO SCH ×2 (08:12→21:19)
[2021-09-18] MEDS: LEVEMIR (INSULIN DETEMIR) 1 UNITS/0.01ML SC SCH ×2 (08:13→21:19)
[2021-09-18] MEDS: SODIUM CHLORIDE NASAL 0.65% SPRAY BTL (OCEAN) SCH ×3 (08:17→21:20)
[2021-09-18] MEDS: guaiFENesin 200 MG TAB PO PRN ×2 (11:56→21:30)
[2021-09-18] MEDS: RAMELTEON 8 MG TAB (ROZEREM) PO SCH (21:17)
[2021-09-19] MEDS: carisoprodoL 350 MG TAB PO PRN (02:07)
[2021-09-19 06:13] VITALS: BP 130/73
[2021-09-19] MEDS: INSULIN LISPRO (NovoLOG) PER UNIT SC SCH ×5 (07:52→21:00)
[2021-09-19] MEDS: ENOXAPARIN 40MG/0.4ML SYRINGE (J1650 PER 10MG) SC SCH (07:53)
[2021-09-19] MEDS: LEVEMIR (INSULIN DETEMIR) 1 UNITS/0.01ML SC SCH ×2 (07:53→20:59)
[2021-09-19] MEDS: ASPIRIN 81MG CHEW TABLET PO SCH (07:54)
[2021-09-19] MEDS: POTASSIUM CHLORIDE 10MEQ SR TABLET PO SCH ×2 (07:54→20:58)
[2021-09-19] MEDS: QUEtiapine FUMARATE 25 MG TAB PO SCH ×2 (07:54→20:58)
[2021-09-19] MEDS: DOCUSATE SODIUM 100MG CAPSULE PO SCH ×2 (07:55→20:58)
[2021-09-19] MEDS: amLODIPine 5 MG TAB PO SCH ×2 (07:57→20:58)
[2021-09-19] MEDS: ATORVASTATIN 20 MG TAB PO SCH (07:57)
[2021-09-19] MEDS: TAMSULOSIN 0.4 MG CAP PO SCH (08:00)
[2021-09-19] MEDS: SODIUM CHLORIDE NASAL 0.65% SPRAY BTL (OCEAN) SCH ×3 (08:04→20:59)
[2021-09-19] MEDS: traMADol 50 MG TAB PO PRN ×2 (14:37→20:57)
[2021-09-19] MEDS: RAMELTEON 8 MG TAB (ROZEREM) PO SCH (20:58)
[2021-09-20] MEDS: traMADol 50 MG TAB PO PRN ×2 (03:21→17:55)
[2021-09-20 06:00] VITALS: BP 140/79
[2021-09-20] MEDS: ASPIRIN 81MG CHEW TABLET PO SCH (08:14)
[2021-09-20] MEDS: ENOXAPARIN 40MG/0.4ML SYRINGE (J1650 PER 10MG) SC SCH (08:14)
[2021-09-20] MEDS: DOCUSATE SODIUM 100MG CAPSULE PO SCH ×2 (08:14→20:44)
[2021-09-20] MEDS: TAMSULOSIN 0.4 MG CAP PO SCH (08:14)
[2021-09-20] MEDS: POTASSIUM CHLORIDE 10MEQ SR TABLET PO SCH ×2 (08:14→20:45)
[2021-09-20] MEDS: ATORVASTATIN 20 MG TAB PO SCH (08:15)
[2021-09-20] MEDS: QUEtiapine FUMARATE 25 MG TAB PO SCH ×2 (08:15→20:44)
[2021-09-20] MEDS: LEVEMIR (INSULIN DETEMIR) 1 UNITS/0.01ML SC SCH ×2 (08:16→20:46)
[2021-09-20] MEDS: amLODIPine 5 MG TAB PO SCH ×2 (08:17→20:45)
[2021-09-20] MEDS: INSULIN LISPRO (NovoLOG) PER UNIT SC SCH ×4 (08:32→20:25)
[2021-09-20] MEDS: SODIUM CHLORIDE NASAL 0.65% SPRAY BTL (OCEAN) SCH ×3 (08:32→20:46)
[2021-09-20] MEDS: guaiFENesin 200 MG TAB PO PRN (17:56)
[2021-09-20] MEDS: RAMELTEON 8 MG TAB (ROZEREM) PO SCH (20:44)
[2021-09-20] MEDS: carisoprodoL 350 MG TAB PO PRN (20:45)
[2021-09-21] MEDS: traMADol 50 MG TAB PO PRN (04:55)
[2021-09-21 05:54] VITALS: BP 139/79
[2021-09-21] MEDS: LEVEMIR (INSULIN DETEMIR) 1 UNITS/0.01ML SC SCH ×2 (08:48→20:29)
[2021-09-21] MEDS: POTASSIUM CHLORIDE 10MEQ SR TABLET PO SCH ×3 (08:49→20:34)
[2021-09-21] MEDS: INSULIN LISPRO (NovoLOG) PER UNIT SC SCH ×4 (08:49→20:04)
[2021-09-21] MEDS: DOCUSATE SODIUM 100MG CAPSULE PO SCH ×2 (08:50→20:29)
[2021-09-21] MEDS: ENOXAPARIN 40MG/0.4ML SYRINGE (J1650 PER 10MG) SC SCH (08:50)
[2021-09-21] MEDS: TAMSULOSIN 0.4 MG CAP PO SCH (08:50)
[2021-09-21] MEDS: ASPIRIN 81MG CHEW TABLET PO SCH (08:50)
[2021-09-21] MEDS: amLODIPine 5 MG TAB PO SCH ×2 (08:50→20:30)
[2021-09-21] MEDS: QUEtiapine FUMARATE 25 MG TAB PO SCH ×2 (08:50→20:29)
[2021-09-21] MEDS: ATORVASTATIN 20 MG TAB PO SCH (08:50)
[2021-09-21] MEDS: SODIUM CHLORIDE NASAL 0.65% SPRAY BTL (OCEAN) SCH ×3 (08:51→20:29)
[2021-09-21] MEDS: guaiFENesin 200 MG TAB PO PRN (17:23)
[2021-09-21] MEDS: ACETAMINOPHEN TAB 650MG DOSE (2X325MG) PO PRN (17:25)
[2021-09-21] MEDS: carisoprodoL 350 MG TAB PO PRN (20:29)
[2021-09-21] MEDS: RAMELTEON 8 MG TAB (ROZEREM) PO SCH (20:29)
[2021-09-22] MEDS: traMADol 50 MG TAB PO PRN (02:32)
[2021-09-22 06:00] VITALS: BP 129/74
[2021-09-22] MEDS: ASPIRIN 81MG CHEW TABLET PO SCH (09:43)
[2021-09-22] MEDS: QUEtiapine FUMARATE 25 MG TAB PO SCH ×2 (09:43→20:01)
[2021-09-22] MEDS: INSULIN LISPRO (NovoLOG) PER UNIT SC SCH ×4 (09:44→21:00)
[2021-09-22] MEDS: amLODIPine 5 MG TAB PO SCH ×2 (09:44→20:02)
[2021-09-22] MEDS: LEVEMIR (INSULIN DETEMIR) 1 UNITS/0.01ML SC SCH ×2 (09:45→20:53)
[2021-09-22] MEDS: DOCUSATE SODIUM 100MG CAPSULE PO SCH ×2 (10:04→20:53)
[2021-09-22] MEDS: ATORVASTATIN 20 MG TAB PO SCH (10:04)
[2021-09-22] MEDS: TAMSULOSIN 0.4 MG CAP PO SCH (10:04)
[2021-09-22] MEDS: POTASSIUM CHLORIDE 10MEQ SR TABLET PO SCH ×2 (10:04→20:01)
[2021-09-22] MEDS: SODIUM CHLORIDE NASAL 0.65% SPRAY BTL (OCEAN) SCH ×3 (10:05→20:03)
[2021-09-22] MEDS: ENOXAPARIN 40MG/0.4ML SYRINGE (J1650 PER 10MG) SC SCH (10:05)
[2021-09-22] MEDS: metFORMIN (GLUCOPHAGE) 500MG TAB PO SCH (14:11)
[2021-09-22] MEDS: RAMELTEON 8 MG TAB (ROZEREM) PO SCH (20:02)
[2021-09-22] MEDS: ACETAMINOPHEN TAB 650MG DOSE (2X325MG) PO PRN (20:03)
[2021-09-23 06:25] VITALS: BP 131/74
[2021-09-23] MEDS: INSULIN LISPRO (NovoLOG) PER UNIT SC SCH ×2 (07:30→12:00)
[2021-09-23] MEDS: POTASSIUM CHLORIDE 10MEQ SR TABLET PO SCH (08:06)
[2021-09-23] MEDS: LEVEMIR (INSULIN DETEMIR) 1 UNITS/0.01ML SC SCH ×2 (08:06→20:25)
[2021-09-23] MEDS: DOCUSATE SODIUM 100MG CAPSULE PO SCH ×2 (08:43→20:25)
[2021-09-23] MEDS: ASPIRIN 81MG CHEW TABLET PO SCH (08:43)
[2021-09-23] MEDS: TAMSULOSIN 0.4 MG CAP PO SCH (08:44)
[2021-09-23] MEDS: ATORVASTATIN 20 MG TAB PO SCH (08:44)
[2021-09-23] MEDS: QUEtiapine FUMARATE 25 MG TAB PO SCH ×2 (08:44→20:25)
[2021-09-23] MEDS: metFORMIN (GLUCOPHAGE) 500MG TAB PO SCH (08:44)
[2021-09-23] MEDS: SODIUM CHLORIDE NASAL 0.65% SPRAY BTL (OCEAN) SCH ×3 (08:45→20:26)
[2021-09-23] MEDS: amLODIPine 5 MG TAB PO SCH ×2 (08:45→20:27)
[2021-09-23] MEDS: ENOXAPARIN 40MG/0.4ML SYRINGE (J1650 PER 10MG) SC SCH (08:45)
[2021-09-23 13:07] LABS: BASO # 0.1 10^3/uL (0.0-0.2); BASO % 0.7 % (0.0-1.0); EOS # 0.2 10^3/uL (0.0-0.5); EOS % 2.5 % (0.0-3.0); HEMATOCRIT 42.6 % (42.0-52.0); HEMOGLOBIN 14.3 g/dl (13.5-17.5); LYMPH # 2.2 10^3/uL (1.5-5.0); MEAN CORPUSCULAR HEMOGLOBIN 28.5 pg (27.0-33.0); MEAN CORPUSCULAR HGB CONC 33.6 g/dl (32.0-36.5); MEAN CORPUSCULAR VOLUME 84.9 fl (80.0-96.0); MONO # 0.6 10^3/uL (0.0-0.8); MONO % 8.6 % (2.0-8.0); NEUTROPHILS # 4.2 10^3/uL (1.5-8.5); NEUTROPHILS % 57.9 % (36.0-66.0); PLATELET COUNT, AUTOMATED 306 10^3/uL (150-450); RED BLOOD COUNT 5.02 10^6/uL (4.30-6.10); WHITE BLOOD COUNT 7.3 10^3/uL (4.0-10.0)
[2021-09-23 13:24] LABS: ALBUMIN 3.6 GM/DL (3.2-5.2); ALKALINE PHOSPHATASE 149 U/L (45-117); ALT/SGPT 25 U/L (12-78); AST/SGOT 17 U/L (7-37); BILIRUBIN,TOTAL 0.4 MG/DL (0.2-1.0); BLOOD UREA NITROGEN 17 MG/DL (7-18); CALCIUM LEVEL 9.3 MG/DL (8.8-10.2); CARBON DIOXIDE LEVEL 26 MEQ/L (21-32); CHLORIDE LEVEL 99 MEQ/L (98-107); CREATININE FOR GFR 0.63 MG/DL (0.70-1.30); GLOMERULAR FILTRATION RATE > 60.0 (>42); GLUCOSE, FASTING 151 MG/DL (70-100); MAGNESIUM LEVEL 2.1 MG/DL (1.8-2.4); SODIUM LEVEL 132 MEQ/L (136-145); TOTAL PROTEIN 6.9 GM/DL (6.4-8.2)
[2021-09-23] MEDS: traMADol 50 MG TAB PO PRN (18:36)
[2021-09-23] MEDS: ACETAMINOPHEN TAB 650MG DOSE (2X325MG) PO PRN (21:52)
[2021-09-23] MEDS: RAMELTEON 8 MG TAB (ROZEREM) PO SCH (21:52)
[2021-09-24] MEDS: traMADol 50 MG TAB PO PRN ×2 (04:23→16:25)
[2021-09-24 06:34] VITALS: BP 134/76
[2021-09-24] MEDS: ASPIRIN 81MG CHEW TABLET PO SCH (08:58)
[2021-09-24] MEDS: TAMSULOSIN 0.4 MG CAP PO SCH (08:58)
[2021-09-24] MEDS: amLODIPine 5 MG TAB PO SCH ×2 (08:58→20:24)
[2021-09-24] MEDS: metFORMIN (GLUCOPHAGE) 500MG TAB PO SCH (08:58)
[2021-09-24] MEDS: DOCUSATE SODIUM 100MG CAPSULE PO SCH ×2 (08:58→20:24)
[2021-09-24] MEDS: ATORVASTATIN 20 MG TAB PO SCH (08:58)
[2021-09-24] MEDS: QUEtiapine FUMARATE 25 MG TAB PO SCH ×2 (08:58→20:24)
[2021-09-24] MEDS: LEVEMIR (INSULIN DETEMIR) 1 UNITS/0.01ML SC SCH ×3 (08:59→20:25)
[2021-09-24] MEDS: ENOXAPARIN 40MG/0.4ML SYRINGE (J1650 PER 10MG) SC SCH ×2 (08:59→09:00)
[2021-09-24] MEDS: SODIUM CHLORIDE NASAL 0.65% SPRAY BTL (OCEAN) SCH ×3 (08:59→20:25)
[2021-09-24] MEDS: RAMELTEON 8 MG TAB (ROZEREM) PO SCH (20:24)
[2021-09-24] MEDS: guaiFENesin 200 MG TAB PO PRN (21:15)
[2021-09-24] MEDS: carisoprodoL 350 MG TAB PO PRN (21:15)
[2021-09-25] MEDS: carisoprodoL 350 MG TAB PO PRN (05:27)
[2021-09-25 06:00] VITALS: BP 134/78
[2021-09-25] MEDS: ENOXAPARIN 40MG/0.4ML SYRINGE (J1650 PER 10MG) SC SCH (09:00)
[2021-09-25] MEDS: metFORMIN (GLUCOPHAGE) 500MG TAB PO SCH (09:05)
[2021-09-25] MEDS: amLODIPine 5 MG TAB PO SCH ×2 (09:05→20:15)
[2021-09-25] MEDS: LEVEMIR (INSULIN DETEMIR) 1 UNITS/0.01ML SC SCH ×2 (09:05→20:16)
[2021-09-25] MEDS: ATORVASTATIN 20 MG TAB PO SCH (09:06)
[2021-09-25] MEDS: TAMSULOSIN 0.4 MG CAP PO SCH (09:06)
[2021-09-25] MEDS: DOCUSATE SODIUM 100MG CAPSULE PO SCH ×2 (09:06→20:15)
[2021-09-25] MEDS: QUEtiapine FUMARATE 25 MG TAB PO SCH ×2 (09:06→20:15)
[2021-09-25] MEDS: ASPIRIN 81MG CHEW TABLET PO SCH (09:06)
[2021-09-25] MEDS: SODIUM CHLORIDE NASAL 0.65% SPRAY BTL (OCEAN) SCH ×3 (09:07→20:16)
[2021-09-25] MEDS: traMADol 50 MG TAB PO PRN (13:52)
[2021-09-25] MEDS: RAMELTEON 8 MG TAB (ROZEREM) PO SCH (20:15)
[2021-09-26] MEDS: ACETAMINOPHEN TAB 650MG DOSE (2X325MG) PO PRN (01:03)
[2021-09-26] MEDS: traMADol 50 MG TAB PO PRN (02:58)
[2021-09-26 06:00] VITALS: BP 136/68
[2021-09-26] MEDS: ASPIRIN 81MG CHEW TABLET PO SCH (08:23)
[2021-09-26] MEDS: metFORMIN (GLUCOPHAGE) 500MG TAB PO SCH (08:23)
[2021-09-26] MEDS: TAMSULOSIN 0.4 MG CAP PO SCH (08:23)
[2021-09-26] MEDS: amLODIPine 5 MG TAB PO SCH ×2 (08:24→21:16)
[2021-09-26] MEDS: LEVEMIR (INSULIN DETEMIR) 1 UNITS/0.01ML SC SCH ×2 (08:24→21:00)
[2021-09-26] MEDS: QUEtiapine FUMARATE 25 MG TAB PO SCH ×2 (08:24→21:16)
[2021-09-26] MEDS: ATORVASTATIN 20 MG TAB PO SCH (08:24)
[2021-09-26] MEDS: DOCUSATE SODIUM 100MG CAPSULE PO SCH ×2 (08:25→21:19)
[2021-09-26] MEDS: ENOXAPARIN 40MG/0.4ML SYRINGE (J1650 PER 10MG) SC SCH (08:25)
[2021-09-26] MEDS: SODIUM CHLORIDE NASAL 0.65% SPRAY BTL (OCEAN) SCH ×3 (08:25→21:17)
[2021-09-26] MEDS: RAMELTEON 8 MG TAB (ROZEREM) PO SCH (21:15)
[2021-09-27] MEDS: ACETAMINOPHEN TAB 650MG DOSE (2X325MG) PO PRN (00:07)
[2021-09-27] MEDS: carisoprodoL 350 MG TAB PO PRN (03:21)
[2021-09-27 04:30] VITALS: BP 136/78
[2021-09-27] MEDS: ENOXAPARIN 40MG/0.4ML SYRINGE (J1650 PER 10MG) SC SCH (09:00)
[2021-09-27] MEDS: SODIUM CHLORIDE NASAL 0.65% SPRAY BTL (OCEAN) SCH ×3 (09:00→21:20)
[2021-09-27] MEDS: LEVEMIR (INSULIN DETEMIR) 1 UNITS/0.01ML SC SCH ×3 (09:00→21:19)
[2021-09-27] MEDS: DOCUSATE SODIUM 100MG CAPSULE PO SCH ×2 (09:11→21:18)
[2021-09-27] MEDS: QUEtiapine FUMARATE 25 MG TAB PO SCH ×2 (09:11→21:18)
[2021-09-27] MEDS: ASPIRIN 81MG CHEW TABLET PO SCH (09:11)
[2021-09-27] MEDS: TAMSULOSIN 0.4 MG CAP PO SCH (09:11)
[2021-09-27] MEDS: metFORMIN (GLUCOPHAGE) 500MG TAB PO SCH (09:11)
[2021-09-27] MEDS: ATORVASTATIN 20 MG TAB PO SCH (09:11)
[2021-09-27] MEDS: amLODIPine 5 MG TAB PO SCH ×2 (09:12→21:20)
[2021-09-27] MEDS: traMADol 50 MG TAB PO PRN ×2 (14:16→21:29)
[2021-09-27 21:00] VITALS: BP 125/72
[2021-09-27] MEDS: RAMELTEON 8 MG TAB (ROZEREM) PO SCH (21:18)
[2021-09-27] MEDS: guaiFENesin 200 MG TAB PO PRN (21:35)
[2021-09-28] MEDS: traMADol 50 MG TAB PO PRN ×3 (04:47→20:13)
[2021-09-28 06:33] VITALS: BP 126/73
[2021-09-28] MEDS: LEVEMIR (INSULIN DETEMIR) 1 UNITS/0.01ML SC SCH ×2 (07:38→20:02)
[2021-09-28] MEDS: QUEtiapine FUMARATE 25 MG TAB PO SCH ×2 (07:38→20:12)
[2021-09-28] MEDS: ATORVASTATIN 20 MG TAB PO SCH (07:38)
[2021-09-28] MEDS: amLODIPine 5 MG TAB PO SCH ×2 (07:38→20:13)
[2021-09-28] MEDS: ASPIRIN 81MG CHEW TABLET PO SCH (07:38)
[2021-09-28] MEDS: TAMSULOSIN 0.4 MG CAP PO SCH (07:38)
[2021-09-28] MEDS: DOCUSATE SODIUM 100MG CAPSULE PO SCH ×2 (07:38→20:12)
[2021-09-28] MEDS: metFORMIN (GLUCOPHAGE) 500MG TAB PO SCH (07:38)
[2021-09-28] MEDS: SODIUM CHLORIDE NASAL 0.65% SPRAY BTL (OCEAN) SCH ×3 (07:39→20:15)
[2021-09-28] MEDS: ENOXAPARIN 40MG/0.4ML SYRINGE (J1650 PER 10MG) SC SCH (07:39)
[2021-09-28] MEDS: RAMELTEON 8 MG TAB (ROZEREM) PO SCH (20:12)
[2021-09-28] MEDS: guaiFENesin 200 MG TAB PO PRN (20:20)
[2021-09-29] MEDS: carisoprodoL 350 MG TAB PO PRN ×2 (01:07→18:13)
[2021-09-29 06:00] VITALS: BP 134/74
[2021-09-29] MEDS: ENOXAPARIN 40MG/0.4ML SYRINGE (J1650 PER 10MG) SC SCH (08:24)
[2021-09-29] MEDS: LEVEMIR (INSULIN DETEMIR) 1 UNITS/0.01ML SC SCH ×2 (08:24→20:04)
[2021-09-29] MEDS: DOCUSATE SODIUM 100MG CAPSULE PO SCH ×2 (08:25→20:03)
[2021-09-29] MEDS: ASPIRIN 81MG CHEW TABLET PO SCH (08:25)
[2021-09-29] MEDS: metFORMIN (GLUCOPHAGE) 500MG TAB PO SCH (08:25)
[2021-09-29] MEDS: ATORVASTATIN 20 MG TAB PO SCH (08:25)
[2021-09-29] MEDS: TAMSULOSIN 0.4 MG CAP PO SCH (08:26)
[2021-09-29] MEDS: QUEtiapine FUMARATE 25 MG TAB PO SCH ×2 (08:26→20:03)
[2021-09-29] MEDS: SODIUM CHLORIDE NASAL 0.65% SPRAY BTL (OCEAN) SCH ×3 (08:26→20:04)
[2021-09-29] MEDS: amLODIPine 5 MG TAB PO SCH ×2 (08:26→20:04)
[2021-09-29] MEDS: traMADol 50 MG TAB PO PRN ×2 (14:23→23:26)
[2021-09-29] MEDS: guaiFENesin 200 MG TAB PO PRN (18:16)
[2021-09-29] MEDS: RAMELTEON 8 MG TAB (ROZEREM) PO SCH (20:03)
[2021-09-30] MEDS: carisoprodoL 350 MG TAB PO PRN (04:36)
[2021-09-30 06:00] VITALS: BP 139/87
[2021-09-30] MEDS: ATORVASTATIN 20 MG TAB PO SCH (08:52)
[2021-09-30] MEDS: DOCUSATE SODIUM 100MG CAPSULE PO SCH ×2 (08:52→20:36)
[2021-09-30] MEDS: metFORMIN (GLUCOPHAGE) 500MG TAB PO SCH (08:52)
[2021-09-30] MEDS: ASPIRIN 81MG CHEW TABLET PO SCH (08:52)
[2021-09-30] MEDS: QUEtiapine FUMARATE 25 MG TAB PO SCH ×2 (08:52→20:36)
[2021-09-30] MEDS: amLODIPine 5 MG TAB PO SCH ×2 (08:53→20:37)
[2021-09-30] MEDS: TAMSULOSIN 0.4 MG CAP PO SCH (08:55)
[2021-09-30] MEDS: ENOXAPARIN 40MG/0.4ML SYRINGE (J1650 PER 10MG) SC SCH (08:55)
[2021-09-30] MEDS: LEVEMIR (INSULIN DETEMIR) 1 UNITS/0.01ML SC SCH ×2 (08:55→20:37)
[2021-09-30] MEDS: SODIUM CHLORIDE NASAL 0.65% SPRAY BTL (OCEAN) SCH ×3 (08:55→20:37)
[2021-09-30] MEDS: traMADol 50 MG TAB PO PRN ×2 (14:48→22:31)
[2021-09-30] MEDS: RAMELTEON 8 MG TAB (ROZEREM) PO SCH (20:36)
[2021-09-30] MEDS: guaiFENesin 200 MG TAB PO PRN (20:36)
[2021-10-01] MEDS: carisoprodoL 350 MG TAB PO PRN (00:49)
[2021-10-01 06:00] VITALS: BP 111/60
[2021-10-01] MEDS: LEVEMIR (INSULIN DETEMIR) 1 UNITS/0.01ML SC SCH ×2 (09:00→21:00)
[2021-10-01] MEDS: DOCUSATE SODIUM 100MG CAPSULE PO SCH ×2 (09:00→20:26)
[2021-10-01] MEDS: ENOXAPARIN 40MG/0.4ML SYRINGE (J1650 PER 10MG) SC SCH (09:00)
[2021-10-01] MEDS: TAMSULOSIN 0.4 MG CAP PO SCH ×2 (09:00→11:30)
[2021-10-01] MEDS: ATORVASTATIN 20 MG TAB PO SCH ×2 (09:00→11:31)
[2021-10-01] MEDS: ASPIRIN 81MG CHEW TABLET PO SCH ×2 (09:00→11:31)
[2021-10-01] MEDS: metFORMIN (GLUCOPHAGE) 500MG TAB PO SCH (09:23)
[2021-10-01] MEDS: QUEtiapine FUMARATE 25 MG TAB PO SCH ×2 (09:24→20:24)
[2021-10-01] MEDS: amLODIPine 5 MG TAB PO SCH ×2 (09:24→20:26)
[2021-10-01] MEDS: SODIUM CHLORIDE NASAL 0.65% SPRAY BTL (OCEAN) SCH ×3 (09:25→22:11)
[2021-10-01] MEDS: RAMELTEON 8 MG TAB (ROZEREM) PO SCH (20:26)
[2021-10-01] MEDS: traMADol 50 MG TAB PO PRN (20:56)
[2021-10-02] MEDS: carisoprodoL 350 MG TAB PO PRN ×2 (02:08→20:08)
[2021-10-02 06:00] VITALS: BP 134/75
[2021-10-02] MEDS: LEVEMIR (INSULIN DETEMIR) 1 UNITS/0.01ML SC SCH ×3 (09:00→20:11)
[2021-10-02] MEDS: ENOXAPARIN 40MG/0.4ML SYRINGE (J1650 PER 10MG) SC SCH ×2 (09:00→09:46)
[2021-10-02] MEDS: ATORVASTATIN 20 MG TAB PO SCH (09:47)
[2021-10-02] MEDS: ASPIRIN 81MG CHEW TABLET PO SCH (09:48)
[2021-10-02] MEDS: QUEtiapine FUMARATE 25 MG TAB PO SCH ×2 (09:48→20:08)
[2021-10-02] MEDS: amLODIPine 5 MG TAB PO SCH ×2 (09:49→20:10)
[2021-10-02] MEDS: DOCUSATE SODIUM 100MG CAPSULE PO SCH ×2 (09:49→20:07)
[2021-10-02] MEDS: TAMSULOSIN 0.4 MG CAP PO SCH (09:49)
[2021-10-02] MEDS: metFORMIN (GLUCOPHAGE) 500MG TAB PO SCH (09:49)
[2021-10-02] MEDS: SODIUM CHLORIDE NASAL 0.65% SPRAY BTL (OCEAN) SCH ×3 (09:50→20:12)
[2021-10-02] MEDS: traMADol 50 MG TAB PO PRN ×2 (14:57→22:22)
[2021-10-02] MEDS: RAMELTEON 8 MG TAB (ROZEREM) PO SCH (20:07)
[2021-10-02] MEDS: guaiFENesin 200 MG TAB PO PRN (20:08)
[2021-10-03 06:00] VITALS: BP 115/62
[2021-10-03] MEDS: ENOXAPARIN 40MG/0.4ML SYRINGE (J1650 PER 10MG) SC SCH (09:00)
[2021-10-03] MEDS: QUEtiapine FUMARATE 25 MG TAB PO SCH ×2 (10:44→21:10)
[2021-10-03] MEDS: ATORVASTATIN 20 MG TAB PO SCH (10:44)
[2021-10-03] MEDS: DOCUSATE SODIUM 100MG CAPSULE PO SCH ×2 (10:44→21:09)
[2021-10-03] MEDS: ASPIRIN 81MG CHEW TABLET PO SCH (10:44)
[2021-10-03] MEDS: amLODIPine 5 MG TAB PO SCH ×2 (10:45→21:10)
[2021-10-03] MEDS: metFORMIN (GLUCOPHAGE) 500MG TAB PO SCH (10:45)
[2021-10-03] MEDS: TAMSULOSIN 0.4 MG CAP PO SCH (10:45)
[2021-10-03] MEDS: SODIUM CHLORIDE NASAL 0.65% SPRAY BTL (OCEAN) SCH ×3 (10:46→19:45)
[2021-10-03] MEDS: traMADol 50 MG TAB PO PRN ×2 (12:06→19:43)
[2021-10-03] MEDS: RAMELTEON 8 MG TAB (ROZEREM) PO SCH (21:09)
[2021-10-03] MEDS: carisoprodoL 350 MG TAB PO PRN (21:09)
[2021-10-04] MEDS: traMADol 50 MG TAB PO PRN ×3 (03:16→20:26)
[2021-10-04 06:00] VITALS: BP 124/72
[2021-10-04] MEDS: ENOXAPARIN 40MG/0.4ML SYRINGE (J1650 PER 10MG) SC SCH (09:00)
[2021-10-04] MEDS: TAMSULOSIN 0.4 MG CAP PO SCH (09:42)
[2021-10-04] MEDS: DOCUSATE SODIUM 100MG CAPSULE PO SCH ×2 (09:42→20:25)
[2021-10-04] MEDS: ATORVASTATIN 20 MG TAB PO SCH (09:42)
[2021-10-04] MEDS: QUEtiapine FUMARATE 25 MG TAB PO SCH ×2 (09:42→20:25)
[2021-10-04] MEDS: ASPIRIN 81MG CHEW TABLET PO SCH (09:43)
[2021-10-04] MEDS: metFORMIN (GLUCOPHAGE) 500MG TAB PO SCH (09:43)
[2021-10-04] MEDS: amLODIPine 5 MG TAB PO SCH ×2 (09:43→20:29)
[2021-10-04] MEDS: SODIUM CHLORIDE NASAL 0.65% SPRAY BTL (OCEAN) SCH ×3 (09:44→20:25)
[2021-10-04] MEDS: RAMELTEON 8 MG TAB (ROZEREM) PO SCH (20:25)
[2021-10-04 21:00] VITALS: BP 171/95
[2021-10-04] MEDS: guaiFENesin 200 MG TAB PO PRN (23:09)
[2021-10-05] MEDS: metFORMIN (GLUCOPHAGE) 500MG TAB PO SCH ×2 (08:00→08:45)
[2021-10-05] MEDS: ENOXAPARIN 40MG/0.4ML SYRINGE (J1650 PER 10MG) SC SCH (08:44)
[2021-10-05] MEDS: ASPIRIN 81MG CHEW TABLET PO SCH ×2 (08:45→08:55)
[2021-10-05] MEDS: QUEtiapine FUMARATE 25 MG TAB PO SCH ×3 (08:45→20:15)
[2021-10-05] MEDS: TAMSULOSIN 0.4 MG CAP PO SCH ×2 (08:45→08:56)
[2021-10-05] MEDS: DOCUSATE SODIUM 100MG CAPSULE PO SCH ×3 (08:45→20:15)
[2021-10-05] MEDS: ATORVASTATIN 20 MG TAB PO SCH ×2 (08:45→08:56)
[2021-10-05] MEDS: amLODIPine 5 MG TAB PO SCH ×3 (08:45→17:32)
[2021-10-05] MEDS: SODIUM CHLORIDE NASAL 0.65% SPRAY BTL (OCEAN) SCH ×4 (08:46→20:15)
[2021-10-05] MEDS: traMADol 50 MG TAB PO PRN ×2 (12:22→20:16)
[2021-10-05] MEDS: guaiFENesin 200 MG TAB PO PRN (20:15)
[2021-10-05] MEDS: RAMELTEON 8 MG TAB (ROZEREM) PO SCH (20:15)
[2021-10-05 21:58] VITALS: BP 122/66
[2021-10-06] MEDS: carisoprodoL 350 MG TAB PO PRN ×2 (01:45→21:38)
[2021-10-06 05:48] VITALS: BP 148/87
[2021-10-06] MEDS: ATORVASTATIN 20 MG TAB PO SCH (08:19)
[2021-10-06] MEDS: ASPIRIN 81MG CHEW TABLET PO SCH (08:19)
[2021-10-06] MEDS: DOCUSATE SODIUM 100MG CAPSULE PO SCH ×2 (08:19→21:37)
[2021-10-06] MEDS: amLODIPine 5 MG TAB PO SCH ×2 (08:19→21:39)
[2021-10-06] MEDS: QUEtiapine FUMARATE 25 MG TAB PO SCH ×2 (08:19→21:37)
[2021-10-06] MEDS: metFORMIN (GLUCOPHAGE) 500MG TAB PO SCH (08:19)
[2021-10-06] MEDS: TAMSULOSIN 0.4 MG CAP PO SCH (08:19)
[2021-10-06] MEDS: SODIUM CHLORIDE NASAL 0.65% SPRAY BTL (OCEAN) SCH ×3 (08:20→21:38)
[2021-10-06 10:40] VITALS: BP 125/79
[2021-10-06] MEDS: traMADol 50 MG TAB PO PRN ×2 (16:23→22:58)
[2021-10-06] MEDS: RAMELTEON 8 MG TAB (ROZEREM) PO SCH (21:37)
[2021-10-06] MEDS: guaiFENesin 200 MG TAB PO PRN (21:38)
[2021-10-07] MEDS: carisoprodoL 350 MG TAB PO PRN ×2 (05:14→20:19)
[2021-10-07 06:00] VITALS: BP 128/73
[2021-10-07] MEDS: ATORVASTATIN 20 MG TAB PO SCH (08:29)
[2021-10-07] MEDS: ASPIRIN 81MG CHEW TABLET PO SCH (08:29)
[2021-10-07] MEDS: metFORMIN (GLUCOPHAGE) 500MG TAB PO SCH (08:29)
[2021-10-07] MEDS: QUEtiapine FUMARATE 25 MG TAB PO SCH ×2 (08:29→20:19)
[2021-10-07] MEDS: DOCUSATE SODIUM 100MG CAPSULE PO SCH ×2 (08:29→20:19)
[2021-10-07] MEDS: TAMSULOSIN 0.4 MG CAP PO SCH (08:29)
[2021-10-07] MEDS: SODIUM CHLORIDE NASAL 0.65% SPRAY BTL (OCEAN) SCH ×3 (08:30→20:20)
[2021-10-07] MEDS: amLODIPine 5 MG TAB PO SCH ×2 (08:30→20:19)
[2021-10-07] MEDS: traMADol 50 MG TAB PO PRN (18:53)
[2021-10-07] MEDS: guaiFENesin 200 MG TAB PO PRN (20:19)
[2021-10-07] MEDS: RAMELTEON 8 MG TAB (ROZEREM) PO SCH (20:19)
[2021-10-07] MEDS: ACETAMINOPHEN TAB 650MG DOSE (2X325MG) PO PRN (22:44)
[2021-10-08] MEDS: traMADol 50 MG TAB PO PRN ×3 (01:15→20:40)
[2021-10-08 06:00] VITALS: BP 134/73
[2021-10-08] MEDS: ATORVASTATIN 20 MG TAB PO SCH (09:08)
[2021-10-08] MEDS: DOCUSATE SODIUM 100MG CAPSULE PO SCH ×2 (09:08→20:36)
[2021-10-08] MEDS: ASPIRIN 81MG CHEW TABLET PO SCH (09:09)
[2021-10-08] MEDS: QUEtiapine FUMARATE 25 MG TAB PO SCH ×2 (09:09→20:36)
[2021-10-08] MEDS: metFORMIN (GLUCOPHAGE) 500MG TAB PO SCH (09:09)
[2021-10-08] MEDS: TAMSULOSIN 0.4 MG CAP PO SCH (09:09)
[2021-10-08] MEDS: amLODIPine 5 MG TAB PO SCH ×2 (09:10→20:37)
[2021-10-08] MEDS: SODIUM CHLORIDE NASAL 0.65% SPRAY BTL (OCEAN) SCH ×3 (09:11→20:37)
[2021-10-08] MEDS: guaiFENesin 200 MG TAB PO PRN ×2 (13:33→20:39)
[2021-10-08] MEDS: RAMELTEON 8 MG TAB (ROZEREM) PO SCH (20:36)
[2021-10-09] MEDS: carisoprodoL 350 MG TAB PO PRN (00:20)
[2021-10-09 06:00] VITALS: BP 113/76
[2021-10-09] MEDS: traMADol 50 MG TAB PO PRN ×2 (07:49→16:04)
[2021-10-09] MEDS: QUEtiapine FUMARATE 25 MG TAB PO SCH ×2 (07:49→21:23)
[2021-10-09] MEDS: TAMSULOSIN 0.4 MG CAP PO SCH (07:49)
[2021-10-09] MEDS: ATORVASTATIN 20 MG TAB PO SCH (07:49)
[2021-10-09] MEDS: DOCUSATE SODIUM 100MG CAPSULE PO SCH ×2 (07:49→21:22)
[2021-10-09] MEDS: ASPIRIN 81MG CHEW TABLET PO SCH (07:49)
[2021-10-09] MEDS: amLODIPine 5 MG TAB PO SCH ×2 (07:50→21:24)
[2021-10-09] MEDS: metFORMIN (GLUCOPHAGE) 500MG TAB PO SCH (07:50)
[2021-10-09] MEDS: SODIUM CHLORIDE NASAL 0.65% SPRAY BTL (OCEAN) SCH ×3 (07:51→21:24)
[2021-10-09 08:20] LABS: BASO # 0.1 10^3/uL (0.0-0.2); BASO % 0.8 % (0.0-1.0); EOS # 0.3 10^3/uL (0.0-0.5); EOS % 4.1 % (0.0-3.0); HEMATOCRIT 41.1 % (42.0-52.0); HEMOGLOBIN 13.8 g/dl (13.5-17.5); MEAN CORPUSCULAR HEMOGLOBIN 28.9 pg (27.0-33.0); MEAN CORPUSCULAR HGB CONC 33.6 g/dl (32.0-36.5); MEAN CORPUSCULAR VOLUME 86.2 fl (80.0-96.0); MONO # 0.7 10^3/uL (0.0-0.8); MONO % 10.3 % (2.0-8.0); NEUTROPHILS % 56.5 % (36.0-66.0); PLATELET COUNT, AUTOMATED 275 10^3/uL (150-450); RED BLOOD COUNT 4.77 10^6/uL (4.30-6.10); WHITE BLOOD COUNT 7.1 10^3/uL (4.0-10.0)
[2021-10-09 08:49] LABS: BLOOD UREA NITROGEN 19 MG/DL (7-18); CALCIUM LEVEL 9.1 MG/DL (8.8-10.2); CARBON DIOXIDE LEVEL 26 MEQ/L (21-32); CHLORIDE LEVEL 99 MEQ/L (98-107); CREATININE FOR GFR 0.61 MG/DL (0.70-1.30); GLOMERULAR FILTRATION RATE > 60.0 (>42); GLUCOSE, FASTING 131 MG/DL (70-100); POTASSIUM SERUM 3.6 MEQ/L (3.5-5.1); SODIUM LEVEL 134 MEQ/L (136-145)
[2021-10-09] MEDS: guaiFENesin 200 MG TAB PO PRN (21:22)
[2021-10-09] MEDS: RAMELTEON 8 MG TAB (ROZEREM) PO SCH (21:23)
[2021-10-10] MEDS: carisoprodoL 350 MG TAB PO PRN ×3 (00:20→19:45)
[2021-10-10] MEDS: traMADol 50 MG TAB PO PRN ×3 (01:46→22:18)
[2021-10-10] MEDS: ACETAMINOPHEN TAB 650MG DOSE (2X325MG) PO PRN ×2 (01:46→17:15)
[2021-10-10] MEDS: ATORVASTATIN 20 MG TAB PO SCH (08:30)
[2021-10-10] MEDS: DOCUSATE SODIUM 100MG CAPSULE PO SCH ×2 (08:30→19:45)
[2021-10-10] MEDS: ASPIRIN 81MG CHEW TABLET PO SCH (08:31)
[2021-10-10] MEDS: amLODIPine 5 MG TAB PO SCH (08:31)
[2021-10-10] MEDS: QUEtiapine FUMARATE 25 MG TAB PO SCH ×2 (08:32→19:45)
[2021-10-10] MEDS: metFORMIN (GLUCOPHAGE) 500MG TAB PO SCH (08:32)
[2021-10-10] MEDS: TAMSULOSIN 0.4 MG CAP PO SCH (08:32)
[2021-10-10] MEDS: SODIUM CHLORIDE NASAL 0.65% SPRAY BTL (OCEAN) SCH ×3 (08:33→19:47)
[2021-10-10] MEDS: FUROSEMIDE 40 MG TAB PO SCH (12:58)
[2021-10-10] MEDS: guaiFENesin 200 MG TAB PO PRN (19:45)
[2021-10-10] MEDS: RAMELTEON 8 MG TAB (ROZEREM) PO SCH (19:45)
[2021-10-11 05:36] VITALS: BP 115/64
[2021-10-11] MEDS: TAMSULOSIN 0.4 MG CAP PO SCH (08:20)
[2021-10-11] MEDS: ASPIRIN 81MG CHEW TABLET PO SCH (08:21)
[2021-10-11] MEDS: metFORMIN (GLUCOPHAGE) 500MG TAB PO SCH (08:21)
[2021-10-11] MEDS: QUEtiapine FUMARATE 25 MG TAB PO SCH ×2 (08:21→19:39)
[2021-10-11] MEDS: DOCUSATE SODIUM 100MG CAPSULE PO SCH ×2 (08:21→19:39)
[2021-10-11] MEDS: ATORVASTATIN 20 MG TAB PO SCH (08:21)
[2021-10-11] MEDS: FUROSEMIDE 40 MG TAB PO SCH (08:21)
[2021-10-11] MEDS: SODIUM CHLORIDE NASAL 0.65% SPRAY BTL (OCEAN) SCH ×3 (08:22→19:40)
[2021-10-11] MEDS: guaiFENesin 200 MG TAB PO PRN ×2 (14:12→19:39)
[2021-10-11] MEDS: traMADol 50 MG TAB PO PRN ×2 (14:13→22:54)
[2021-10-11] MEDS: carisoprodoL 350 MG TAB PO PRN (17:15)
[2021-10-11] MEDS: RAMELTEON 8 MG TAB (ROZEREM) PO SCH (19:39)
[2021-10-11] MEDS: ACETAMINOPHEN TAB 650MG DOSE (2X325MG) PO PRN (19:42)
[2021-10-11 20:30] VITALS: BP 134/64
[2021-10-12 06:00] VITALS: BP 178/74
[2021-10-12 08:30] VITALS: BP 125/73
[2021-10-12] MEDS: QUEtiapine FUMARATE 25 MG TAB PO SCH ×2 (08:54→23:15)
[2021-10-12] MEDS: metFORMIN (GLUCOPHAGE) 500MG TAB PO SCH (08:54)
[2021-10-12] MEDS: TAMSULOSIN 0.4 MG CAP PO SCH (08:54)
[2021-10-12] MEDS: ATORVASTATIN 20 MG TAB PO SCH (08:54)
[2021-10-12] MEDS: FUROSEMIDE 40 MG TAB PO SCH (08:54)
[2021-10-12] MEDS: DOCUSATE SODIUM 100MG CAPSULE PO SCH ×2 (08:55→21:00)
[2021-10-12] MEDS: ASPIRIN 81MG CHEW TABLET PO SCH (08:55)
[2021-10-12] MEDS: SODIUM CHLORIDE NASAL 0.65% SPRAY BTL (OCEAN) SCH ×3 (09:00→21:15)
[2021-10-12] MEDS: traMADol 50 MG TAB PO PRN ×2 (09:07→23:15)
[2021-10-12] MEDS: ACETAMINOPHEN TAB 650MG DOSE (2X325MG) PO PRN (13:41)
[2021-10-12] MEDS: carisoprodoL 350 MG TAB PO PRN (13:41)
[2021-10-12] MEDS: guaiFENesin 200 MG TAB PO PRN (21:15)
[2021-10-12] MEDS: RAMELTEON 8 MG TAB (ROZEREM) PO SCH (23:15)
[2021-10-13] MEDS: carisoprodoL 350 MG TAB PO PRN (04:04)
[2021-10-13 06:00] VITALS: BP 116/70
[2021-10-13] MEDS: TAMSULOSIN 0.4 MG CAP PO SCH (07:46)
[2021-10-13] MEDS: ASPIRIN 81MG CHEW TABLET PO SCH (07:46)
[2021-10-13] MEDS: DOCUSATE SODIUM 100MG CAPSULE PO SCH ×2 (07:46→22:02)
[2021-10-13] MEDS: ATORVASTATIN 20 MG TAB PO SCH (07:46)
[2021-10-13] MEDS: FUROSEMIDE 40 MG TAB PO SCH (07:47)
[2021-10-13] MEDS: QUEtiapine FUMARATE 25 MG TAB PO SCH ×2 (07:47→22:02)
[2021-10-13] MEDS: SODIUM CHLORIDE NASAL 0.65% SPRAY BTL (OCEAN) SCH ×3 (07:47→22:02)
[2021-10-13] MEDS: metFORMIN (GLUCOPHAGE) 500MG TAB PO SCH (07:48)
[2021-10-13] MEDS: traMADol 50 MG TAB PO PRN ×2 (09:51→17:11)
[2021-10-13 22:00] VITALS: BP 141/70
[2021-10-13] MEDS: RAMELTEON 8 MG TAB (ROZEREM) PO SCH (22:02)
[2021-10-14 06:00] VITALS: BP 118/71
[2021-10-14] MEDS: traMADol 50 MG TAB PO PRN ×3 (08:29→22:37)
[2021-10-14] MEDS: ASPIRIN 81MG CHEW TABLET PO SCH (08:29)
[2021-10-14] MEDS: ATORVASTATIN 20 MG TAB PO SCH (08:30)
[2021-10-14] MEDS: metFORMIN (GLUCOPHAGE) 500MG TAB PO SCH (08:30)
[2021-10-14] MEDS: QUEtiapine FUMARATE 25 MG TAB PO SCH ×2 (08:30→20:14)
[2021-10-14] MEDS: DOCUSATE SODIUM 100MG CAPSULE PO SCH ×2 (08:30→20:14)
[2021-10-14] MEDS: TAMSULOSIN 0.4 MG CAP PO SCH (08:30)
[2021-10-14] MEDS: SODIUM CHLORIDE NASAL 0.65% SPRAY BTL (OCEAN) SCH ×3 (08:36→20:14)
[2021-10-14] MEDS: FUROSEMIDE 40 MG TAB PO SCH (08:36)
[2021-10-14] MEDS: guaiFENesin 200 MG TAB PO PRN ×2 (08:41→20:14)
[2021-10-14] MEDS: ACETAMINOPHEN TAB 650MG DOSE (2X325MG) PO PRN ×2 (12:13→20:15)
[2021-10-14] MEDS: RAMELTEON 8 MG TAB (ROZEREM) PO SCH (20:14)
[2021-10-15] MEDS: traMADol 50 MG TAB PO PRN ×2 (04:41→10:26)
[2021-10-15 06:00] VITALS: BP 118/68
[2021-10-15] MEDS: metFORMIN (GLUCOPHAGE) 500MG TAB PO SCH (08:41)
[2021-10-15] MEDS: ATORVASTATIN 20 MG TAB PO SCH (08:41)
[2021-10-15] MEDS: ASPIRIN 81MG CHEW TABLET PO SCH (08:41)
[2021-10-15] MEDS: TAMSULOSIN 0.4 MG CAP PO SCH (08:41)
[2021-10-15] MEDS: QUEtiapine FUMARATE 25 MG TAB PO SCH ×2 (08:41→21:15)
[2021-10-15] MEDS: DOCUSATE SODIUM 100MG CAPSULE PO SCH ×2 (08:41→21:16)
[2021-10-15] MEDS: SODIUM CHLORIDE NASAL 0.65% SPRAY BTL (OCEAN) SCH ×3 (08:42→21:16)
[2021-10-15] MEDS: FUROSEMIDE 40 MG TAB PO SCH (08:45)
[2021-10-15] MEDS: guaiFENesin 200 MG TAB PO PRN (08:47)
[2021-10-15 08:53] LABS: BASO # 0.1 10^3/uL (0.0-0.2); BASO % 0.9 % (0.0-1.0); EOS # 0.2 10^3/uL (0.0-0.5); EOS % 3.5 % (0.0-3.0); HEMOGLOBIN 13.3 g/dl (13.5-17.5); LYMPH # 1.5 10^3/uL (1.5-5.0); LYMPH % 26.4 % (24.0-44.0); MEAN CORPUSCULAR HEMOGLOBIN 28.6 pg (27.0-33.0); MEAN CORPUSCULAR HGB CONC 33.3 g/dl (32.0-36.5); MONO # 0.6 10^3/uL (0.0-0.8); MONO % 9.6 % (2.0-8.0); NEUTROPHILS # 3.4 10^3/uL (1.5-8.5); NEUTROPHILS % 59.2 % (36.0-66.0); PLATELET COUNT, AUTOMATED 287 10^3/uL (150-450); RED BLOOD COUNT 4.65 10^6/uL (4.30-6.10); WHITE BLOOD COUNT 5.7 10^3/uL (4.0-10.0)
[2021-10-15 09:20] LABS: BLOOD UREA NITROGEN 23 MG/DL (7-18); CALCIUM LEVEL 8.5 MG/DL (8.8-10.2); CARBON DIOXIDE LEVEL 23 MEQ/L (21-32); CHLORIDE LEVEL 100 MEQ/L (98-107); CREATININE FOR GFR 0.76 MG/DL (0.70-1.30); GLOMERULAR FILTRATION RATE > 60.0 (>42); GLUCOSE, FASTING 230 MG/DL (70-100); MAGNESIUM LEVEL 1.9 MG/DL (1.8-2.4); SODIUM LEVEL 133 MEQ/L (136-145)
[2021-10-15] MEDS: ACETAMINOPHEN TAB 650MG DOSE (2X325MG) PO PRN (15:52)
[2021-10-15] MEDS: RAMELTEON 8 MG TAB (ROZEREM) PO SCH (21:15)
[2021-10-16] MEDS: CALCIUM CARBONATE 500 MG CHEW U/D PO PRN (00:05)
[2021-10-16] MEDS: traMADol 50 MG TAB PO PRN ×4 (02:04→23:16)
[2021-10-16 06:00] VITALS: BP 142/72
[2021-10-16] MEDS: metFORMIN (GLUCOPHAGE) 500MG TAB PO SCH ×2 (08:00→08:41)
[2021-10-16] MEDS: DOCUSATE SODIUM 100MG CAPSULE PO SCH ×3 (08:31→19:56)
[2021-10-16] MEDS: FUROSEMIDE 40 MG TAB PO SCH ×2 (08:31→08:42)
[2021-10-16] MEDS: QUEtiapine FUMARATE 25 MG TAB PO SCH ×3 (08:31→19:56)
[2021-10-16] MEDS: TAMSULOSIN 0.4 MG CAP PO SCH ×2 (08:31→08:42)
[2021-10-16] MEDS: ASPIRIN 81MG CHEW TABLET PO SCH ×2 (08:31→08:42)
[2021-10-16] MEDS: ATORVASTATIN 20 MG TAB PO SCH ×2 (08:31→08:42)
[2021-10-16] MEDS: SODIUM CHLORIDE NASAL 0.65% SPRAY BTL (OCEAN) SCH ×4 (08:32→19:56)
[2021-10-16] MEDS: guaiFENesin 200 MG TAB PO PRN ×2 (08:47→16:38)
[2021-10-16] MEDS: ACETAMINOPHEN TAB 650MG DOSE (2X325MG) PO PRN (13:34)
[2021-10-16] MEDS: carisoprodoL 350 MG TAB PO PRN (19:55)
[2021-10-16] MEDS: RAMELTEON 8 MG TAB (ROZEREM) PO SCH (19:56)
[2021-10-17] MEDS: carisoprodoL 350 MG TAB PO PRN (02:26)
[2021-10-17 06:00] VITALS: BP 118/65
[2021-10-17] MEDS: ASPIRIN 81MG CHEW TABLET PO SCH (07:59)
[2021-10-17] MEDS: TAMSULOSIN 0.4 MG CAP PO SCH (07:59)
[2021-10-17] MEDS: DOCUSATE SODIUM 100MG CAPSULE PO SCH ×2 (07:59→20:24)
[2021-10-17] MEDS: SODIUM CHLORIDE NASAL 0.65% SPRAY BTL (OCEAN) SCH ×3 (08:00→20:24)
[2021-10-17] MEDS: metFORMIN (GLUCOPHAGE) 500MG TAB PO SCH (08:00)
[2021-10-17] MEDS: QUEtiapine FUMARATE 25 MG TAB PO SCH ×2 (08:00→20:24)
[2021-10-17] MEDS: ATORVASTATIN 20 MG TAB PO SCH (08:00)
[2021-10-17] MEDS: guaiFENesin 200 MG TAB PO PRN ×2 (08:09→18:22)
[2021-10-17] MEDS: traMADol 50 MG TAB PO PRN ×2 (08:10→17:45)
[2021-10-17] MEDS: FUROSEMIDE 40 MG TAB PO SCH (09:00)
[2021-10-17] MEDS: RAMELTEON 8 MG TAB (ROZEREM) PO SCH (20:24)
[2021-10-18] MEDS: traMADol 50 MG TAB PO PRN ×3 (01:28→22:39)
[2021-10-18 06:00] VITALS: BP 117/64
[2021-10-18] MEDS: SODIUM CHLORIDE NASAL 0.65% SPRAY BTL (OCEAN) SCH ×3 (09:00→20:17)
[2021-10-18] MEDS: ATORVASTATIN 20 MG TAB PO SCH (09:00)
[2021-10-18] MEDS: DOCUSATE SODIUM 100MG CAPSULE PO SCH ×2 (09:00→20:16)
[2021-10-18] MEDS: FUROSEMIDE 40 MG TAB PO SCH (09:00)
[2021-10-18] MEDS: TAMSULOSIN 0.4 MG CAP PO SCH (09:00)
[2021-10-18] MEDS: metFORMIN (GLUCOPHAGE) 500MG TAB PO SCH (09:45)
[2021-10-18] MEDS: QUEtiapine FUMARATE 25 MG TAB PO SCH ×2 (09:46→20:16)
[2021-10-18] MEDS: guaiFENesin 200 MG TAB PO PRN ×2 (09:55→20:16)
[2021-10-18] MEDS: ASPIRIN 81MG CHEW TABLET PO SCH (10:44)
[2021-10-18] MEDS: RAMELTEON 8 MG TAB (ROZEREM) PO SCH (20:16)
[2021-10-19 06:00] VITALS: BP 147/79
[2021-10-19] MEDS: SODIUM CHLORIDE NASAL 0.65% SPRAY BTL (OCEAN) SCH ×3 (08:43→20:12)
[2021-10-19] MEDS: QUEtiapine FUMARATE 25 MG TAB PO SCH ×2 (08:45→20:11)
[2021-10-19] MEDS: TAMSULOSIN 0.4 MG CAP PO SCH (08:45)
[2021-10-19] MEDS: ASPIRIN 81MG CHEW TABLET PO SCH (08:45)
[2021-10-19] MEDS: ATORVASTATIN 20 MG TAB PO SCH (08:45)
[2021-10-19] MEDS: metFORMIN (GLUCOPHAGE) 500MG TAB PO SCH (08:45)
[2021-10-19] MEDS: DOCUSATE SODIUM 100MG CAPSULE PO SCH ×2 (08:45→20:12)
[2021-10-19] MEDS: FUROSEMIDE 40 MG TAB PO SCH (08:46)
[2021-10-19] MEDS: traMADol 50 MG TAB PO PRN ×2 (12:46→20:12)
[2021-10-19] MEDS: guaiFENesin 200 MG TAB PO PRN (20:12)
[2021-10-19] MEDS: RAMELTEON 8 MG TAB (ROZEREM) PO SCH (20:12)
[2021-10-19] MEDS: carisoprodoL 350 MG TAB PO PRN (23:15)
[2021-10-20] MEDS: traMADol 50 MG TAB PO PRN ×2 (04:01→17:38)
[2021-10-20 06:00] VITALS: BP 150/83
[2021-10-20] MEDS: SODIUM CHLORIDE NASAL 0.65% SPRAY BTL (OCEAN) SCH ×3 (08:44→20:16)
[2021-10-20] MEDS: metFORMIN (GLUCOPHAGE) 500MG TAB PO SCH (08:45)
[2021-10-20] MEDS: carisoprodoL 350 MG TAB PO PRN (08:45)
[2021-10-20] MEDS: DOCUSATE SODIUM 100MG CAPSULE PO SCH ×2 (08:50→20:15)
[2021-10-20] MEDS: QUEtiapine FUMARATE 25 MG TAB PO SCH ×2 (08:50→20:15)
[2021-10-20] MEDS: ASPIRIN 81MG CHEW TABLET PO SCH (08:50)
[2021-10-20] MEDS: TAMSULOSIN 0.4 MG CAP PO SCH (08:51)
[2021-10-20] MEDS: FUROSEMIDE 40 MG TAB PO SCH (08:51)
[2021-10-20] MEDS: ATORVASTATIN 20 MG TAB PO SCH (08:51)
[2021-10-20 08:52] VITALS: BP 110/70
[2021-10-20] MEDS: RAMELTEON 8 MG TAB (ROZEREM) PO SCH (20:15)
[2021-10-20] MEDS: ACETAMINOPHEN TAB 650MG DOSE (2X325MG) PO PRN (22:22)
[2021-10-21] MEDS: traMADol 50 MG TAB PO PRN (03:14)
[2021-10-21 06:00] VITALS: BP 133/81
[2021-10-21] MEDS: DOCUSATE SODIUM 100MG CAPSULE PO SCH ×2 (07:49→20:47)
[2021-10-21] MEDS: ASPIRIN 81MG CHEW TABLET PO SCH (07:49)
[2021-10-21] MEDS: carisoprodoL 350 MG TAB PO PRN (07:49)
[2021-10-21] MEDS: ATORVASTATIN 20 MG TAB PO SCH (07:49)
[2021-10-21] MEDS: FUROSEMIDE 40 MG TAB PO SCH (07:50)
[2021-10-21] MEDS: QUEtiapine FUMARATE 25 MG TAB PO SCH ×2 (07:50→20:47)
[2021-10-21] MEDS: SODIUM CHLORIDE NASAL 0.65% SPRAY BTL (OCEAN) SCH ×3 (07:51→20:47)
[2021-10-21] MEDS: TAMSULOSIN 0.4 MG CAP PO SCH (07:51)
[2021-10-21] MEDS: metFORMIN (GLUCOPHAGE) 500MG TAB PO SCH (07:51)
[2021-10-21] MEDS: oxyCODONE 5MG TAB PO PRN ×2 (12:08→20:46)
[2021-10-21] MEDS: CARBAMIDE PEROXIDE 6.5% OTIC SOLN 15ML AU SCH ×2 (12:47→20:47)
[2021-10-21] MEDS: RAMELTEON 8 MG TAB (ROZEREM) PO SCH (20:47)
[2021-10-22 06:00] VITALS: BP 120/79
[2021-10-22] MEDS: DOCUSATE SODIUM 100MG CAPSULE PO SCH ×2 (09:00→21:00)
[2021-10-22] MEDS: CARBAMIDE PEROXIDE 6.5% OTIC SOLN 15ML AU SCH ×2 (09:00→21:38)
[2021-10-22] MEDS: ACETAMINOPHEN TAB 650MG DOSE (2X325MG) PO PRN (10:25)
[2021-10-22] MEDS: metFORMIN (GLUCOPHAGE) 500MG TAB PO SCH (10:25)
[2021-10-22] MEDS: ASPIRIN 81MG CHEW TABLET PO SCH (10:26)
[2021-10-22] MEDS: QUEtiapine FUMARATE 25 MG TAB PO SCH ×2 (10:26→21:35)
[2021-10-22] MEDS: ATORVASTATIN 20 MG TAB PO SCH (10:26)
[2021-10-22] MEDS: TAMSULOSIN 0.4 MG CAP PO SCH (10:27)
[2021-10-22] MEDS: FUROSEMIDE 40 MG TAB PO SCH (10:27)
[2021-10-22] MEDS: guaiFENesin 200 MG TAB PO PRN ×2 (10:33→21:35)
[2021-10-22] MEDS: SODIUM CHLORIDE NASAL 0.65% SPRAY BTL (OCEAN) SCH ×3 (10:35→21:37)
[2021-10-22] MEDS: oxyCODONE 5MG TAB PO PRN (21:35)
[2021-10-22] MEDS: RAMELTEON 8 MG TAB (ROZEREM) PO SCH (21:35)
[2021-10-22] MEDS: traMADol 50 MG TAB PO PRN (23:57)
[2021-10-23] MEDS: ACETAMINOPHEN TAB 650MG DOSE (2X325MG) PO PRN (04:51)
[2021-10-23 06:00] VITALS: BP 122/81
[2021-10-23] MEDS: FUROSEMIDE 40 MG TAB PO SCH (08:23)
[2021-10-23] MEDS: metFORMIN (GLUCOPHAGE) 500MG TAB PO SCH (08:23)
[2021-10-23] MEDS: ASPIRIN 81MG CHEW TABLET PO SCH (08:23)
[2021-10-23] MEDS: DOCUSATE SODIUM 100MG CAPSULE PO SCH ×2 (08:23→19:59)
[2021-10-23] MEDS: ATORVASTATIN 20 MG TAB PO SCH (08:23)
[2021-10-23] MEDS: QUEtiapine FUMARATE 25 MG TAB PO SCH ×2 (08:23→19:59)
[2021-10-23] MEDS: TAMSULOSIN 0.4 MG CAP PO SCH (08:23)
[2021-10-23] MEDS: oxyCODONE 5MG TAB PO PRN ×2 (08:24→23:43)
[2021-10-23] MEDS: SODIUM CHLORIDE NASAL 0.65% SPRAY BTL (OCEAN) SCH ×3 (08:24→19:59)
[2021-10-23] MEDS: CARBAMIDE PEROXIDE 6.5% OTIC SOLN 15ML AU SCH ×2 (08:24→19:58)
[2021-10-23] MEDS: carisoprodoL 350 MG TAB PO PRN ×2 (09:25→16:43)
[2021-10-23 16:43] VITALS: BP 150/86
[2021-10-23 18:34] LABS: HEMATOCRIT 39.3 % (42.0-52.0); HEMOGLOBIN 13.3 g/dl (13.5-17.5); MEAN CORPUSCULAR HEMOGLOBIN 28.8 pg (27.0-33.0); MEAN CORPUSCULAR HGB CONC 33.8 g/dl (32.0-36.5); MEAN CORPUSCULAR VOLUME 85.1 fl (80.0-96.0); PLATELET COUNT, AUTOMATED 284 10^3/uL (150-450); RED BLOOD COUNT 4.62 10^6/uL (4.30-6.10); WHITE BLOOD COUNT 6.8 10^3/uL (4.0-10.0)
[2021-10-23 19:05] LABS: CK-MB VALUE MASS 2.3 NG/ML (<3.6); MB/CK RELATIVE INDEX 1.62 (< OR =4)
[2021-10-23 19:06] LABS: BLOOD UREA NITROGEN 20 MG/DL (7-18); CALCIUM LEVEL 8.8 MG/DL (8.8-10.2); CARBON DIOXIDE LEVEL 26 MEQ/L (21-32); CHLORIDE LEVEL 100 MEQ/L (98-107); CREATININE FOR GFR 0.84 MG/DL (0.70-1.30); GLOMERULAR FILTRATION RATE > 60.0 (>42); GLUCOSE, FASTING 186 MG/DL (70-100); POTASSIUM SERUM 3.5 MEQ/L (3.5-5.1); SODIUM LEVEL 134 MEQ/L (136-145)
[2021-10-23] MEDS: traMADol 50 MG TAB PO PRN (19:59)
[2021-10-23] MEDS: RAMELTEON 8 MG TAB (ROZEREM) PO SCH (19:59)
[2021-10-24] MEDS: traMADol 50 MG TAB PO PRN ×2 (04:01→15:19)
[2021-10-24 05:45] VITALS: BP 162/90
[2021-10-24] MEDS: ATORVASTATIN 20 MG TAB PO SCH ×2 (09:16→10:17)
[2021-10-24] MEDS: metFORMIN (GLUCOPHAGE) 500MG TAB PO SCH ×2 (09:16→10:20)
[2021-10-24] MEDS: TAMSULOSIN 0.4 MG CAP PO SCH ×2 (09:16→10:19)
[2021-10-24] MEDS: QUEtiapine FUMARATE 25 MG TAB PO SCH ×3 (09:16→20:42)
[2021-10-24] MEDS: FUROSEMIDE 40 MG TAB PO SCH ×2 (09:16→10:18)
[2021-10-24] MEDS: SODIUM CHLORIDE NASAL 0.65% SPRAY BTL (OCEAN) SCH ×3 (09:17→20:42)
[2021-10-24] MEDS: DOCUSATE SODIUM 100MG CAPSULE PO SCH ×3 (09:17→20:42)
[2021-10-24] MEDS: ASPIRIN 81MG CHEW TABLET PO SCH ×2 (09:17→10:17)
[2021-10-24] MEDS: CARBAMIDE PEROXIDE 6.5% OTIC SOLN 15ML AU SCH ×2 (09:18→20:41)
[2021-10-24] MEDS: ACETAMINOPHEN TAB 650MG DOSE (2X325MG) PO PRN (18:28)
[2021-10-24] MEDS: RAMELTEON 8 MG TAB (ROZEREM) PO SCH (20:42)
[2021-10-24] MEDS: oxyCODONE 5MG TAB PO PRN (20:42)
[2021-10-24] MEDS: guaiFENesin 200 MG TAB PO PRN (20:51)
[2021-10-25 05:45] VITALS: BP 120/66
[2021-10-25] MEDS: SODIUM CHLORIDE NASAL 0.65% SPRAY BTL (OCEAN) SCH ×4 (09:00→21:11)
[2021-10-25] MEDS: TAMSULOSIN 0.4 MG CAP PO SCH (09:00)
[2021-10-25] MEDS: DOCUSATE SODIUM 100MG CAPSULE PO SCH ×3 (09:00→21:10)
[2021-10-25] MEDS: QUEtiapine FUMARATE 25 MG TAB PO SCH ×3 (09:24→21:11)
[2021-10-25] MEDS: ASPIRIN 81MG CHEW TABLET PO SCH (09:25)
[2021-10-25] MEDS: FUROSEMIDE 40 MG TAB PO SCH (09:25)
[2021-10-25] MEDS: ATORVASTATIN 20 MG TAB PO SCH (09:26)
[2021-10-25] MEDS: metFORMIN (GLUCOPHAGE) 500MG TAB PO SCH (09:26)
[2021-10-25] MEDS: traMADol 50 MG TAB PO PRN (13:31)
[2021-10-25] MEDS: oxyCODONE 5MG TAB PO PRN (19:24)
[2021-10-25] MEDS: RAMELTEON 8 MG TAB (ROZEREM) PO SCH ×2 (21:00→21:10)
[2021-10-25] MEDS: guaiFENesin 200 MG TAB PO PRN (21:11)
[2021-10-26] MEDS: traMADol 50 MG TAB PO PRN ×2 (01:07→15:04)
[2021-10-26] MEDS: DOCUSATE SODIUM 100MG CAPSULE PO SCH ×2 (09:19→19:53)
[2021-10-26] MEDS: QUEtiapine FUMARATE 25 MG TAB PO SCH ×2 (09:19→19:53)
[2021-10-26] MEDS: metFORMIN (GLUCOPHAGE) 500MG TAB PO SCH (09:19)
[2021-10-26] MEDS: SODIUM CHLORIDE NASAL 0.65% SPRAY BTL (OCEAN) SCH ×3 (09:19→19:54)
[2021-10-26] MEDS: ASPIRIN 81MG CHEW TABLET PO SCH (09:19)
[2021-10-26] MEDS: ATORVASTATIN 20 MG TAB PO SCH (09:20)
[2021-10-26] MEDS: FUROSEMIDE 40 MG TAB PO SCH (09:20)
[2021-10-26] MEDS: TAMSULOSIN 0.4 MG CAP PO SCH (09:20)
[2021-10-26] MEDS: RAMELTEON 8 MG TAB (ROZEREM) PO SCH (19:53)
[2021-10-26] MEDS: oxyCODONE 5MG TAB PO PRN (21:07)
[2021-10-27] MEDS: traMADol 50 MG TAB PO PRN ×3 (01:45→18:51)
[2021-10-27] MEDS: metFORMIN (GLUCOPHAGE) 500MG TAB PO SCH ×2 (08:00→08:46)
[2021-10-27] MEDS: ASPIRIN 81MG CHEW TABLET PO SCH ×2 (08:46→08:54)
[2021-10-27] MEDS: DOCUSATE SODIUM 100MG CAPSULE PO SCH ×3 (08:46→21:36)
[2021-10-27] MEDS: FUROSEMIDE 40 MG TAB PO SCH ×2 (08:47→08:54)
[2021-10-27] MEDS: TAMSULOSIN 0.4 MG CAP PO SCH ×2 (08:47→08:54)
[2021-10-27] MEDS: SODIUM CHLORIDE NASAL 0.65% SPRAY BTL (OCEAN) SCH ×3 (08:47→21:36)
[2021-10-27] MEDS: ATORVASTATIN 20 MG TAB PO SCH ×2 (08:47→08:54)
[2021-10-27] MEDS: QUEtiapine FUMARATE 25 MG TAB PO SCH ×3 (08:47→21:36)
[2021-10-27] MEDS: guaiFENesin 200 MG TAB PO PRN ×2 (11:07→18:56)
[2021-10-27] MEDS: CALCIUM CARBONATE 500 MG CHEW U/D PO PRN (13:25)
[2021-10-27] MEDS: RAMELTEON 8 MG TAB (ROZEREM) PO SCH (21:36)
[2021-10-28] MEDS: traMADol 50 MG TAB PO PRN ×3 (00:58→23:15)
[2021-10-28] MEDS: oxyCODONE 5MG TAB PO PRN (05:13)
[2021-10-28 06:00] VITALS: BP 129/81
[2021-10-28] MEDS: DOCUSATE SODIUM 100MG CAPSULE PO SCH ×2 (08:40→21:01)
[2021-10-28] MEDS: TAMSULOSIN 0.4 MG CAP PO SCH (08:40)
[2021-10-28] MEDS: FUROSEMIDE 40 MG TAB PO SCH (08:40)
[2021-10-28] MEDS: metFORMIN (GLUCOPHAGE) 500MG TAB PO SCH (08:40)
[2021-10-28] MEDS: ASPIRIN 81MG CHEW TABLET PO SCH (08:40)
[2021-10-28] MEDS: ATORVASTATIN 20 MG TAB PO SCH (08:40)
[2021-10-28] MEDS: SODIUM CHLORIDE NASAL 0.65% SPRAY BTL (OCEAN) SCH ×3 (08:41→21:01)
[2021-10-28] MEDS: QUEtiapine FUMARATE 25 MG TAB PO SCH ×2 (08:41→21:01)
[2021-10-28] MEDS: guaiFENesin 200 MG TAB PO PRN ×2 (08:46→18:22)
[2021-10-28] MEDS: CALCIUM CARBONATE 500 MG CHEW U/D PO PRN (18:22)
[2021-10-28] MEDS: RAMELTEON 8 MG TAB (ROZEREM) PO SCH (21:02)
[2021-10-29 05:35] VITALS: BP 128/82
[2021-10-29] MEDS: metFORMIN (GLUCOPHAGE) 500MG TAB PO SCH (08:00)
[2021-10-29] MEDS: DOCUSATE SODIUM 100MG CAPSULE PO SCH ×2 (08:58→20:00)
[2021-10-29] MEDS: SODIUM CHLORIDE NASAL 0.65% SPRAY BTL (OCEAN) SCH ×3 (08:58→20:01)
[2021-10-29] MEDS: TAMSULOSIN 0.4 MG CAP PO SCH (08:58)
[2021-10-29] MEDS: QUEtiapine FUMARATE 25 MG TAB PO SCH ×2 (08:58→20:00)
[2021-10-29] MEDS: ASPIRIN 81MG CHEW TABLET PO SCH (08:58)
[2021-10-29] MEDS: ATORVASTATIN 20 MG TAB PO SCH (08:58)
[2021-10-29] MEDS: FUROSEMIDE 40 MG TAB PO SCH (08:58)
[2021-10-29] MEDS: traMADol 50 MG TAB PO PRN (18:55)
[2021-10-29] MEDS: guaiFENesin 200 MG TAB PO PRN (20:00)
[2021-10-29] MEDS: RAMELTEON 8 MG TAB (ROZEREM) PO SCH (20:00)
[2021-10-29] MEDS: oxyCODONE 5MG TAB PO PRN (23:14)
[2021-10-30] MEDS: traMADol 50 MG TAB PO PRN ×3 (04:18→20:59)
[2021-10-30 05:23] VITALS: BP 135/81
[2021-10-30] MEDS: MIRALAX *UNIT DOSE* 17GM PACKET PO PRN (06:21)
[2021-10-30] MEDS: ATORVASTATIN 20 MG TAB PO SCH (08:40)
[2021-10-30] MEDS: QUEtiapine FUMARATE 25 MG TAB PO SCH ×2 (08:40→20:58)
[2021-10-30] MEDS: FUROSEMIDE 40 MG TAB PO SCH (08:41)
[2021-10-30] MEDS: metFORMIN (GLUCOPHAGE) 500MG TAB PO SCH (08:41)
[2021-10-30] MEDS: TAMSULOSIN 0.4 MG CAP PO SCH (08:42)
[2021-10-30] MEDS: DOCUSATE SODIUM 100MG CAPSULE PO SCH ×2 (08:42→20:58)
[2021-10-30] MEDS: ASPIRIN 81MG CHEW TABLET PO SCH (08:42)
[2021-10-30] MEDS: SODIUM CHLORIDE NASAL 0.65% SPRAY BTL (OCEAN) SCH ×3 (08:43→20:59)
[2021-10-30] MEDS: carisoprodoL 350 MG TAB PO PRN (08:56)
[2021-10-30] MEDS: oxyCODONE 5MG TAB PO PRN (08:58)
[2021-10-30] MEDS: guaiFENesin 200 MG TAB PO PRN (20:58)
[2021-10-30] MEDS: RAMELTEON 8 MG TAB (ROZEREM) PO SCH (20:58)
[2021-10-31] MEDS: SENNA 8.6 MG TAB (SENOKOT) PO PRN ×2 (00:32→22:23)
[2021-10-31] MEDS: carisoprodoL 350 MG TAB PO PRN (00:32)
[2021-10-31] MEDS: traMADol 50 MG TAB PO PRN ×3 (03:26→22:23)
[2021-10-31 05:21] VITALS: BP 129/76
[2021-10-31] MEDS: metFORMIN (GLUCOPHAGE) 500MG TAB PO SCH ×2 (08:00→08:30)
[2021-10-31] MEDS: DOCUSATE SODIUM 100MG CAPSULE PO SCH ×3 (08:01→22:22)
[2021-10-31] MEDS: ATORVASTATIN 20 MG TAB PO SCH ×2 (08:01→08:30)
[2021-10-31] MEDS: ASPIRIN 81MG CHEW TABLET PO SCH ×2 (08:01→08:30)
[2021-10-31] MEDS: FUROSEMIDE 40 MG TAB PO SCH ×2 (08:01→08:30)
[2021-10-31] MEDS: TAMSULOSIN 0.4 MG CAP PO SCH ×2 (08:01→08:30)
[2021-10-31] MEDS: SODIUM CHLORIDE NASAL 0.65% SPRAY BTL (OCEAN) SCH ×3 (08:02→22:23)
[2021-10-31] MEDS: QUEtiapine FUMARATE 25 MG TAB PO SCH ×3 (08:02→22:23)
[2021-10-31] MEDS: MIRALAX *UNIT DOSE* 17GM PACKET PO PRN (08:38)
[2021-10-31] MEDS: CALCIUM CARBONATE 500 MG CHEW U/D PO PRN (13:50)
[2021-10-31] MEDS: ACETAMINOPHEN TAB 650MG DOSE (2X325MG) PO PRN (17:39)
[2021-10-31] MEDS: RAMELTEON 8 MG TAB (ROZEREM) PO SCH (22:22)
[2021-11-01] MEDS: carisoprodoL 350 MG TAB PO PRN (02:01)
[2021-11-01 06:00] VITALS: BP 123/80
[2021-11-01] MEDS: FUROSEMIDE 40 MG TAB PO SCH (10:05)
[2021-11-01] MEDS: DOCUSATE SODIUM 100MG CAPSULE PO SCH ×2 (10:05→20:15)
[2021-11-01] MEDS: ASPIRIN 81MG CHEW TABLET PO SCH (10:05)
[2021-11-01] MEDS: TAMSULOSIN 0.4 MG CAP PO SCH (10:06)
[2021-11-01] MEDS: QUEtiapine FUMARATE 25 MG TAB PO SCH ×2 (10:06→20:15)
[2021-11-01] MEDS: ATORVASTATIN 20 MG TAB PO SCH (10:06)
[2021-11-01] MEDS: metFORMIN (GLUCOPHAGE) 500MG TAB PO SCH (10:11)
[2021-11-01] MEDS: SODIUM CHLORIDE NASAL 0.65% SPRAY BTL (OCEAN) SCH ×3 (10:12→20:16)
[2021-11-01] MEDS: traMADol 50 MG TAB PO PRN ×2 (12:13→20:16)
[2021-11-01] MEDS: guaiFENesin 200 MG TAB PO PRN (18:11)
[2021-11-01] MEDS: RAMELTEON 8 MG TAB (ROZEREM) PO SCH (20:15)
[2021-11-02] MEDS: oxyCODONE 5MG TAB PO PRN (00:25)
[2021-11-02] MEDS: traMADol 50 MG TAB PO PRN ×2 (03:25→20:30)
[2021-11-02 05:35] VITALS: BP 117/57
[2021-11-02] MEDS: DOCUSATE SODIUM 100MG CAPSULE PO SCH ×2 (10:42→20:06)
[2021-11-02] MEDS: metFORMIN (GLUCOPHAGE) 500MG TAB PO SCH (10:42)
[2021-11-02] MEDS: TAMSULOSIN 0.4 MG CAP PO SCH (10:42)
[2021-11-02] MEDS: ASPIRIN 81MG CHEW TABLET PO SCH (10:42)
[2021-11-02] MEDS: FUROSEMIDE 40 MG TAB PO SCH (10:42)
[2021-11-02] MEDS: SODIUM CHLORIDE NASAL 0.65% SPRAY BTL (OCEAN) SCH ×3 (10:43→20:05)
[2021-11-02] MEDS: QUEtiapine FUMARATE 25 MG TAB PO SCH ×2 (10:43→20:06)
[2021-11-02] MEDS: ATORVASTATIN 20 MG TAB PO SCH (10:43)
[2021-11-02] MEDS: ACETAMINOPHEN TAB 650MG DOSE (2X325MG) PO PRN (13:10)
[2021-11-02] MEDS: CALCIUM CARBONATE 500 MG CHEW U/D PO PRN (13:45)
[2021-11-02] MEDS: RAMELTEON 8 MG TAB (ROZEREM) PO SCH (20:06)
[2021-11-02] MEDS: guaiFENesin 200 MG TAB PO PRN (20:06)
[2021-11-03] MEDS: oxyCODONE 5MG TAB PO PRN ×2 (00:26→17:14)
[2021-11-03] MEDS: traMADol 50 MG TAB PO PRN ×3 (03:57→20:21)
[2021-11-03 06:00] VITALS: BP 136/62
[2021-11-03] MEDS: metFORMIN (GLUCOPHAGE) 500MG TAB PO SCH (08:00)
[2021-11-03] MEDS: SODIUM CHLORIDE NASAL 0.65% SPRAY BTL (OCEAN) SCH ×3 (09:00→20:22)
[2021-11-03] MEDS: ASPIRIN 81MG CHEW TABLET PO SCH (09:00)
[2021-11-03] MEDS: ATORVASTATIN 20 MG TAB PO SCH ×2 (09:00→10:18)
[2021-11-03] MEDS: DOCUSATE SODIUM 100MG CAPSULE PO SCH ×2 (10:17→20:20)
[2021-11-03] MEDS: TAMSULOSIN 0.4 MG CAP PO SCH (10:18)
[2021-11-03] MEDS: FUROSEMIDE 40 MG TAB PO SCH (10:18)
[2021-11-03] MEDS: QUEtiapine FUMARATE 25 MG TAB PO SCH ×2 (10:18→20:21)
[2021-11-03] MEDS: guaiFENesin 200 MG TAB PO PRN (20:20)
[2021-11-03] MEDS: RAMELTEON 8 MG TAB (ROZEREM) PO SCH (20:21)
[2021-11-03] MEDS: SENNA 8.6 MG TAB (SENOKOT) PO PRN (20:21)
[2021-11-04] MEDS: oxyCODONE 5MG TAB PO PRN (01:02)
[2021-11-04 06:00] VITALS: BP 111/59
[2021-11-04] MEDS: DOCUSATE SODIUM 100MG CAPSULE PO SCH ×2 (08:19→20:23)
[2021-11-04] MEDS: FUROSEMIDE 40 MG TAB PO SCH (08:19)
[2021-11-04] MEDS: ASPIRIN 81MG CHEW TABLET PO SCH (08:19)
[2021-11-04] MEDS: QUEtiapine FUMARATE 25 MG TAB PO SCH ×2 (08:19→20:23)
[2021-11-04] MEDS: TAMSULOSIN 0.4 MG CAP PO SCH (08:19)
[2021-11-04] MEDS: ATORVASTATIN 20 MG TAB PO SCH (08:19)
[2021-11-04] MEDS: SODIUM CHLORIDE NASAL 0.65% SPRAY BTL (OCEAN) SCH ×3 (08:20→20:23)
[2021-11-04] MEDS: metFORMIN (GLUCOPHAGE) 500MG TAB PO SCH (08:20)
[2021-11-04] MEDS: traMADol 50 MG TAB PO PRN (17:25)
[2021-11-04] MEDS: RAMELTEON 8 MG TAB (ROZEREM) PO SCH (20:23)
[2021-11-05] MEDS: oxyCODONE 5MG TAB PO PRN (00:54)
[2021-11-05 06:13] VITALS: BP 116/63
[2021-11-05] MEDS: FUROSEMIDE 40 MG TAB PO SCH (10:04)
[2021-11-05] MEDS: ATORVASTATIN 20 MG TAB PO SCH (10:04)
[2021-11-05] MEDS: metFORMIN (GLUCOPHAGE) 500MG TAB PO SCH (10:04)
[2021-11-05] MEDS: guaiFENesin 200 MG TAB PO PRN (10:04)
[2021-11-05] MEDS: QUEtiapine FUMARATE 25 MG TAB PO SCH ×2 (10:05→20:27)
[2021-11-05] MEDS: ASPIRIN 81MG CHEW TABLET PO SCH (10:05)
[2021-11-05] MEDS: TAMSULOSIN 0.4 MG CAP PO SCH (10:05)
[2021-11-05] MEDS: SODIUM CHLORIDE NASAL 0.65% SPRAY BTL (OCEAN) SCH ×3 (10:06→20:27)
[2021-11-05] MEDS: DOCUSATE SODIUM 100MG CAPSULE PO SCH ×2 (10:07→20:27)
[2021-11-05] MEDS: traMADol 50 MG TAB PO PRN (16:51)
[2021-11-05] MEDS: RAMELTEON 8 MG TAB (ROZEREM) PO SCH (20:27)
[2021-11-05] MEDS: carisoprodoL 350 MG TAB PO PRN (21:54)
[2021-11-06] MEDS: ACETAMINOPHEN TAB 650MG DOSE (2X325MG) PO PRN ×2 (02:17→20:20)
[2021-11-06 06:00] VITALS: BP 124/71
[2021-11-06] MEDS: SODIUM CHLORIDE NASAL 0.65% SPRAY BTL (OCEAN) SCH ×3 (09:34→20:19)
[2021-11-06] MEDS: QUEtiapine FUMARATE 25 MG TAB PO SCH ×2 (09:34→20:19)
[2021-11-06] MEDS: DOCUSATE SODIUM 100MG CAPSULE PO SCH ×2 (09:34→20:19)
[2021-11-06] MEDS: ATORVASTATIN 20 MG TAB PO SCH (09:35)
[2021-11-06] MEDS: FUROSEMIDE 40 MG TAB PO SCH (09:35)
[2021-11-06] MEDS: metFORMIN (GLUCOPHAGE) 500MG TAB PO SCH (09:35)
[2021-11-06] MEDS: TAMSULOSIN 0.4 MG CAP PO SCH (09:35)
[2021-11-06] MEDS: ASPIRIN 81MG CHEW TABLET PO SCH (09:35)
[2021-11-06] MEDS: traMADol 50 MG TAB PO PRN ×2 (14:19→17:47)
[2021-11-06] MEDS: guaiFENesin 200 MG TAB PO PRN (16:51)
[2021-11-06] MEDS: RAMELTEON 8 MG TAB (ROZEREM) PO SCH (20:19)
[2021-11-06] MEDS: carisoprodoL 350 MG TAB PO PRN (22:21)
[2021-11-07] MEDS: oxyCODONE 5MG TAB PO PRN ×2 (02:13→12:33)
[2021-11-07] MEDS: CALCIUM CARBONATE 500 MG CHEW U/D PO PRN (03:45)
[2021-11-07 05:54] VITALS: BP 113/76
[2021-11-07] MEDS: TAMSULOSIN 0.4 MG CAP PO SCH (08:09)
[2021-11-07] MEDS: metFORMIN (GLUCOPHAGE) 500MG TAB PO SCH (08:09)
[2021-11-07] MEDS: ASPIRIN 81MG CHEW TABLET PO SCH (08:10)
[2021-11-07] MEDS: ATORVASTATIN 20 MG TAB PO SCH (08:10)
[2021-11-07] MEDS: FUROSEMIDE 40 MG TAB PO SCH (08:10)
[2021-11-07] MEDS: DOCUSATE SODIUM 100MG CAPSULE PO SCH ×2 (08:10→19:31)
[2021-11-07] MEDS: QUEtiapine FUMARATE 25 MG TAB PO SCH ×2 (08:10→19:31)
[2021-11-07] MEDS: SODIUM CHLORIDE NASAL 0.65% SPRAY BTL (OCEAN) SCH ×3 (08:14→19:31)
[2021-11-07] MEDS: traMADol 50 MG TAB PO PRN (19:31)
[2021-11-07] MEDS: RAMELTEON 8 MG TAB (ROZEREM) PO SCH (19:31)
[2021-11-08] MEDS: traMADol 50 MG TAB PO PRN ×2 (02:13→14:33)
[2021-11-08] MEDS: ACETAMINOPHEN TAB 650MG DOSE (2X325MG) PO PRN (05:17)
[2021-11-08 05:19] VITALS: BP 130/61
[2021-11-08] MEDS: metFORMIN (GLUCOPHAGE) 500MG TAB PO SCH (08:00)
[2021-11-08] MEDS: DOCUSATE SODIUM 100MG CAPSULE PO SCH ×2 (09:00→20:44)
[2021-11-08] MEDS: SODIUM CHLORIDE NASAL 0.65% SPRAY BTL (OCEAN) SCH ×4 (09:00→21:31)
[2021-11-08] MEDS: TAMSULOSIN 0.4 MG CAP PO SCH (09:00)
[2021-11-08] MEDS: QUEtiapine FUMARATE 25 MG TAB PO SCH ×2 (09:00→20:44)
[2021-11-08] MEDS: ATORVASTATIN 20 MG TAB PO SCH (09:00)
[2021-11-08] MEDS: FUROSEMIDE 40 MG TAB PO SCH (09:00)
[2021-11-08] MEDS: ASPIRIN 81MG CHEW TABLET PO SCH (09:00)
[2021-11-08] MEDS: RAMELTEON 8 MG TAB (ROZEREM) PO SCH (20:44)
[2021-11-08] MEDS: guaiFENesin 200 MG TAB PO PRN (20:44)
[2021-11-08] MEDS: oxyCODONE 5MG TAB PO PRN (20:45)
[2021-11-08] MEDS: CALCIUM CARBONATE 500 MG CHEW U/D PO PRN (23:19)
[2021-11-09] MEDS: QUEtiapine FUMARATE 25 MG TAB PO SCH ×2 (08:51→19:46)
[2021-11-09] MEDS: TAMSULOSIN 0.4 MG CAP PO SCH ×2 (08:51→11:30)
[2021-11-09] MEDS: ATORVASTATIN 20 MG TAB PO SCH ×2 (08:51→11:30)
[2021-11-09] MEDS: ASPIRIN 81MG CHEW TABLET PO SCH ×2 (08:52→11:29)
[2021-11-09] MEDS: metFORMIN (GLUCOPHAGE) 500MG TAB PO SCH ×2 (08:52→11:29)
[2021-11-09] MEDS: DOCUSATE SODIUM 100MG CAPSULE PO SCH ×3 (08:52→19:45)
[2021-11-09] MEDS: FUROSEMIDE 40 MG TAB PO SCH ×2 (08:52→11:30)
[2021-11-09] MEDS: SODIUM CHLORIDE NASAL 0.65% SPRAY BTL (OCEAN) SCH ×4 (08:53→19:47)
[2021-11-09] MEDS: traMADol 50 MG TAB PO PRN ×2 (13:24→22:29)
[2021-11-09] MEDS: RAMELTEON 8 MG TAB (ROZEREM) PO SCH (19:45)
[2021-11-09] MEDS: oxyCODONE 5MG TAB PO PRN (20:40)
[2021-11-10 06:00] VITALS: BP 122/67
[2021-11-10] MEDS: oxyCODONE 5MG TAB PO PRN ×2 (06:15→15:57)
[2021-11-10] MEDS: metFORMIN (GLUCOPHAGE) 500MG TAB PO SCH (07:40)
[2021-11-10] MEDS: TAMSULOSIN 0.4 MG CAP PO SCH (09:36)
[2021-11-10] MEDS: ASPIRIN 81MG CHEW TABLET PO SCH (09:36)
[2021-11-10] MEDS: DOCUSATE SODIUM 100MG CAPSULE PO SCH ×2 (09:36→19:43)
[2021-11-10] MEDS: FUROSEMIDE 40 MG TAB PO SCH (09:37)
[2021-11-10] MEDS: SODIUM CHLORIDE NASAL 0.65% SPRAY BTL (OCEAN) SCH ×3 (09:37→19:44)
[2021-11-10] MEDS: ATORVASTATIN 20 MG TAB PO SCH (09:37)
[2021-11-10] MEDS: QUEtiapine FUMARATE 25 MG TAB PO SCH ×2 (09:37→19:43)
[2021-11-10] MEDS: CALCIUM CARBONATE 500 MG CHEW U/D PO PRN ×2 (09:45→21:21)
[2021-11-10] MEDS: guaiFENesin 200 MG TAB PO PRN (15:57)
[2021-11-10] MEDS: RAMELTEON 8 MG TAB (ROZEREM) PO SCH (19:43)
[2021-11-10] MEDS: OLANZapine INTRAMUSCULAR 10MG VIAL IM PRN (23:02)
[2021-11-11] MEDS: OLANZapine INTRAMUSCULAR 10MG VIAL IM PRN (01:39)
[2021-11-11 06:00] VITALS: BP 134/82
[2021-11-11] MEDS: metFORMIN (GLUCOPHAGE) 500MG TAB PO SCH (08:00)
[2021-11-11] MEDS: FUROSEMIDE 40 MG TAB PO SCH (09:00)
[2021-11-11] MEDS: QUEtiapine FUMARATE 25 MG TAB PO SCH ×2 (09:00→21:31)
[2021-11-11] MEDS: DOCUSATE SODIUM 100MG CAPSULE PO SCH ×2 (09:00→21:31)
[2021-11-11] MEDS: ASPIRIN 81MG CHEW TABLET PO SCH (09:00)
[2021-11-11] MEDS: TAMSULOSIN 0.4 MG CAP PO SCH (09:00)
[2021-11-11] MEDS: SODIUM CHLORIDE NASAL 0.65% SPRAY BTL (OCEAN) SCH ×3 (09:00→21:31)
[2021-11-11] MEDS: ATORVASTATIN 20 MG TAB PO SCH (09:00)
[2021-11-11] MEDS: oxyCODONE 5MG TAB PO PRN ×2 (15:31→22:09)
[2021-11-11] MEDS: guaiFENesin 200 MG TAB PO PRN (15:31)
[2021-11-11] MEDS: RAMELTEON 8 MG TAB (ROZEREM) PO SCH (21:31)
[2021-11-12] MEDS: traMADol 50 MG TAB PO PRN ×3 (00:52→19:43)
[2021-11-12] MEDS: oxyCODONE 5MG TAB PO PRN ×2 (05:34→23:46)
[2021-11-12 06:00] VITALS: BP 138/83
[2021-11-12] MEDS: metFORMIN (GLUCOPHAGE) 500MG TAB PO SCH (09:59)
[2021-11-12] MEDS: DOCUSATE SODIUM 100MG CAPSULE PO SCH ×2 (09:59→19:41)
[2021-11-12] MEDS: ASPIRIN 81MG CHEW TABLET PO SCH (09:59)
[2021-11-12] MEDS: TAMSULOSIN 0.4 MG CAP PO SCH (09:59)
[2021-11-12] MEDS: FUROSEMIDE 40 MG TAB PO SCH (09:59)
[2021-11-12] MEDS: ATORVASTATIN 20 MG TAB PO SCH (09:59)
[2021-11-12] MEDS: QUEtiapine FUMARATE 25 MG TAB PO SCH ×2 (10:00→19:42)
[2021-11-12] MEDS: SODIUM CHLORIDE NASAL 0.65% SPRAY BTL (OCEAN) SCH ×3 (10:07→19:42)
[2021-11-12 15:21] LABS: HEMOGLOBIN 15.1 g/dl (13.5-17.5); MEAN CORPUSCULAR HEMOGLOBIN 28.5 pg (27.0-33.0); MEAN CORPUSCULAR HGB CONC 33.6 g/dl (32.0-36.5); MEAN CORPUSCULAR VOLUME 84.9 fl (80.0-96.0); PLATELET COUNT, AUTOMATED 283 10^3/uL (150-450); WHITE BLOOD COUNT 8.2 10^3/uL (4.0-10.0)
[2021-11-12 15:47] LABS: BLOOD UREA NITROGEN 21 MG/DL (7-18); CALCIUM LEVEL 9.4 MG/DL (8.8-10.2); CARBON DIOXIDE LEVEL 31 MEQ/L (21-32); CHLORIDE LEVEL 96 MEQ/L (98-107); CREATININE FOR GFR 0.76 MG/DL (0.70-1.30); GLOMERULAR FILTRATION RATE > 60.0 (>42); GLUCOSE, FASTING 176 MG/DL (70-100); MAGNESIUM LEVEL 2.1 MG/DL (1.8-2.4); PHOSPHORUS LEVEL 4.2 MG/DL (2.5-4.9); POTASSIUM SERUM 3.7 MEQ/L (3.5-5.1); SODIUM LEVEL 133 MEQ/L (136-145)
[2021-11-12] MEDS: RAMELTEON 8 MG TAB (ROZEREM) PO SCH (19:42)
[2021-11-13] MEDS: carisoprodoL 350 MG TAB PO PRN ×3 (01:42→18:27)
[2021-11-13 05:00] VITALS: BP 126/67
[2021-11-13] MEDS: metFORMIN (GLUCOPHAGE) 500MG TAB PO SCH (07:54)
[2021-11-13] MEDS: oxyCODONE 5MG TAB PO PRN ×2 (07:54→16:14)
[2021-11-13] MEDS: guaiFENesin 200 MG TAB PO PRN (09:53)
[2021-11-13] MEDS: TAMSULOSIN 0.4 MG CAP PO SCH (09:53)
[2021-11-13] MEDS: DOCUSATE SODIUM 100MG CAPSULE PO SCH ×3 (09:53→22:55)
[2021-11-13] MEDS: FUROSEMIDE 40 MG TAB PO SCH (09:54)
[2021-11-13] MEDS: SODIUM CHLORIDE NASAL 0.65% SPRAY BTL (OCEAN) SCH ×4 (09:54→22:57)
[2021-11-13] MEDS: QUEtiapine FUMARATE 25 MG TAB PO SCH ×3 (09:54→22:55)
[2021-11-13] MEDS: ASPIRIN 81MG CHEW TABLET PO SCH (09:54)
[2021-11-13] MEDS: ATORVASTATIN 20 MG TAB PO SCH (09:54)
[2021-11-13] MEDS: RAMELTEON 8 MG TAB (ROZEREM) PO SCH ×2 (21:00→21:29)
[2021-11-13] MEDS: traMADol 50 MG TAB PO PRN ×2 (21:30→22:59)
[2021-11-13] MEDS: LIDOCAINE 5% (LIDODERM) PATCH TD SCH ×2 (21:31→22:56)
[2021-11-14] MEDS: oxyCODONE 5MG TAB PO PRN ×3 (00:16→19:33)
[2021-11-14] MEDS: carisoprodoL 350 MG TAB PO PRN (03:46)
[2021-11-14 06:00] VITALS: BP 113/79
[2021-11-14] MEDS: TAMSULOSIN 0.4 MG CAP PO SCH (07:58)
[2021-11-14] MEDS: ASPIRIN 81MG CHEW TABLET PO SCH (07:58)
[2021-11-14] MEDS: SODIUM CHLORIDE NASAL 0.65% SPRAY BTL (OCEAN) SCH ×3 (07:58→20:49)
[2021-11-14] MEDS: DOCUSATE SODIUM 100MG CAPSULE PO SCH ×2 (07:58→20:48)
[2021-11-14] MEDS: FUROSEMIDE 40 MG TAB PO SCH (07:59)
[2021-11-14] MEDS: metFORMIN (GLUCOPHAGE) 500MG TAB PO SCH (07:59)
[2021-11-14] MEDS: ATORVASTATIN 20 MG TAB PO SCH (07:59)
[2021-11-14] MEDS: QUEtiapine FUMARATE 25 MG TAB PO SCH ×2 (08:00→20:48)
[2021-11-14] MEDS: traMADol 50 MG TAB PO PRN (16:42)
[2021-11-14] MEDS: guaiFENesin 200 MG TAB PO PRN (19:33)
[2021-11-14] MEDS: RAMELTEON 8 MG TAB (ROZEREM) PO SCH (20:48)
[2021-11-14] MEDS: DICLOFENAC EPOLAMINE 1.3% PATCH TOP SCH (21:00)
[2021-11-15] MEDS: traMADol 50 MG TAB PO PRN ×2 (00:12→22:10)
[2021-11-15] MEDS: oxyCODONE 5MG TAB PO PRN ×2 (05:44→13:16)
[2021-11-15 06:00] VITALS: BP 128/77
[2021-11-15 06:02] LABS: HEMATOCRIT 39.5 % (42.0-52.0); HEMOGLOBIN 13.3 g/dl (13.5-17.5); MEAN CORPUSCULAR HEMOGLOBIN 28.4 pg (27.0-33.0); MEAN CORPUSCULAR HGB CONC 33.7 g/dl (32.0-36.5); MEAN CORPUSCULAR VOLUME 84.2 fl (80.0-96.0); PLATELET COUNT, AUTOMATED 253 10^3/uL (150-450); RED BLOOD COUNT 4.69 10^6/uL (4.30-6.10); WHITE BLOOD COUNT 7.8 10^3/uL (4.0-10.0)
[2021-11-15 06:23] LABS: BLOOD UREA NITROGEN 23 MG/DL (7-18); CALCIUM LEVEL 8.7 MG/DL (8.8-10.2); CARBON DIOXIDE LEVEL 25 MEQ/L (21-32); CHLORIDE LEVEL 99 MEQ/L (98-107); CREATININE FOR GFR 0.71 MG/DL (0.70-1.30); GLOMERULAR FILTRATION RATE > 60.0 (>42); GLUCOSE, FASTING 114 MG/DL (70-100); POTASSIUM SERUM 3.8 MEQ/L (3.5-5.1); SODIUM LEVEL 132 MEQ/L (136-145)
[2021-11-15] MEDS: metFORMIN (GLUCOPHAGE) 500MG TAB PO SCH (08:38)
[2021-11-15] MEDS: FUROSEMIDE 40 MG TAB PO SCH (08:39)
[2021-11-15] MEDS: QUEtiapine FUMARATE 25 MG TAB PO SCH ×2 (08:39→22:09)
[2021-11-15] MEDS: ATORVASTATIN 20 MG TAB PO SCH (08:39)
[2021-11-15] MEDS: ASPIRIN 81MG CHEW TABLET PO SCH (08:39)
[2021-11-15] MEDS: DICLOFENAC EPOLAMINE 1.3% PATCH TOP SCH ×2 (08:40→22:03)
[2021-11-15] MEDS: TAMSULOSIN 0.4 MG CAP PO SCH (08:40)
[2021-11-15] MEDS: DOCUSATE SODIUM 100MG CAPSULE PO SCH ×2 (08:40→22:09)
[2021-11-15] MEDS: SODIUM CHLORIDE NASAL 0.65% SPRAY BTL (OCEAN) SCH ×3 (08:40→22:09)
[2021-11-15] MEDS: RAMELTEON 8 MG TAB (ROZEREM) PO SCH (22:09)
[2021-11-15] MEDS: SENNA 8.6 MG TAB (SENOKOT) PO PRN (22:09)
[2021-11-15] MEDS: guaiFENesin 200 MG TAB PO PRN (22:10)
[2021-11-16] MEDS: carisoprodoL 350 MG TAB PO PRN (02:33)
[2021-11-16 06:00] VITALS: BP 130/70
[2021-11-16] MEDS: ASPIRIN 81MG CHEW TABLET PO SCH ×2 (10:31→11:44)
[2021-11-16] MEDS: QUEtiapine FUMARATE 25 MG TAB PO SCH ×3 (10:32→23:39)
[2021-11-16] MEDS: metFORMIN (GLUCOPHAGE) 500MG TAB PO SCH ×2 (10:32→11:44)
[2021-11-16] MEDS: KETOROLAC TROMETHAMINE 10 MG TAB PO PRN ×2 (10:32→18:11)
[2021-11-16] MEDS: SODIUM CHLORIDE NASAL 0.65% SPRAY BTL (OCEAN) SCH ×3 (10:34→23:39)
[2021-11-16] MEDS: TAMSULOSIN 0.4 MG CAP PO SCH (10:34)
[2021-11-16] MEDS: DICLOFENAC EPOLAMINE 1.3% PATCH TOP SCH ×2 (10:34→23:30)
[2021-11-16] MEDS: DOCUSATE SODIUM 100MG CAPSULE PO SCH ×2 (10:34→23:39)
[2021-11-16] MEDS: FUROSEMIDE 40 MG TAB PO SCH (10:34)
[2021-11-16] MEDS: ATORVASTATIN 20 MG TAB PO SCH ×2 (10:34→11:44)
[2021-11-16] MEDS: ACETAMINOPHEN TAB 650MG DOSE (2X325MG) PO PRN (13:38)
[2021-11-16] MEDS: guaiFENesin 200 MG TAB PO PRN (23:39)
[2021-11-16] MEDS: RAMELTEON 8 MG TAB (ROZEREM) PO SCH (23:39)
[2021-11-16] MEDS: traMADol 50 MG TAB PO PRN (23:40)
[2021-11-17] MEDS: carisoprodoL 350 MG TAB PO PRN (03:45)
[2021-11-17] MEDS: traMADol 50 MG TAB PO PRN ×2 (05:55→20:12)
[2021-11-17 06:42] VITALS: BP 115/64
[2021-11-17] MEDS: KETOROLAC TROMETHAMINE 10 MG TAB PO PRN (08:44)
[2021-11-17] MEDS: TAMSULOSIN 0.4 MG CAP PO SCH (08:45)
[2021-11-17] MEDS: FUROSEMIDE 40 MG TAB PO SCH (08:45)
[2021-11-17] MEDS: DOCUSATE SODIUM 100MG CAPSULE PO SCH ×2 (08:45→20:11)
[2021-11-17] MEDS: metFORMIN (GLUCOPHAGE) 500MG TAB PO SCH (08:45)
[2021-11-17] MEDS: ASPIRIN 81MG CHEW TABLET PO SCH (08:45)
[2021-11-17] MEDS: ATORVASTATIN 20 MG TAB PO SCH (08:45)
[2021-11-17] MEDS: DICLOFENAC EPOLAMINE 1.3% PATCH TOP SCH ×2 (08:46→20:11)
[2021-11-17] MEDS: QUEtiapine FUMARATE 25 MG TAB PO SCH ×2 (08:46→20:11)
[2021-11-17] MEDS: SODIUM CHLORIDE NASAL 0.65% SPRAY BTL (OCEAN) SCH ×3 (08:47→20:11)
[2021-11-17 10:30] VITALS: BP 135/77
[2021-11-17] MEDS: oxyCODONE 5MG TAB PO PRN (10:58)
[2021-11-17 14:58] VITALS: BP 134/74
[2021-11-17] MEDS: guaiFENesin 200 MG TAB PO PRN (20:11)
[2021-11-17] MEDS: RAMELTEON 8 MG TAB (ROZEREM) PO SCH (20:11)
[2021-11-17 22:10] VITALS: BP 130/73
[2021-11-18] MEDS: carisoprodoL 350 MG TAB PO PRN (00:28)
[2021-11-18 06:15] VITALS: BP 125/64
[2021-11-18] MEDS: traMADol 50 MG TAB PO PRN ×2 (06:38→14:06)
[2021-11-18] MEDS: QUEtiapine FUMARATE 25 MG TAB PO SCH ×2 (08:10→23:25)
[2021-11-18] MEDS: ATORVASTATIN 20 MG TAB PO SCH (08:11)
[2021-11-18] MEDS: metFORMIN (GLUCOPHAGE) 500MG TAB PO SCH (08:11)
[2021-11-18] MEDS: DICLOFENAC EPOLAMINE 1.3% PATCH TOP SCH ×2 (08:12→21:00)
[2021-11-18] MEDS: FUROSEMIDE 40 MG TAB PO SCH (08:12)
[2021-11-18] MEDS: SODIUM CHLORIDE NASAL 0.65% SPRAY BTL (OCEAN) SCH ×3 (08:12→23:25)
[2021-11-18] MEDS: oxyCODONE 5MG TAB PO PRN (08:12)
[2021-11-18] MEDS: DOCUSATE SODIUM 100MG CAPSULE PO SCH ×2 (08:13→21:00)
[2021-11-18] MEDS: ASPIRIN 81MG CHEW TABLET PO SCH (08:13)
[2021-11-18] MEDS: TAMSULOSIN 0.4 MG CAP PO SCH (08:13)
[2021-11-18] MEDS: CALCIUM CARBONATE 500 MG CHEW U/D PO PRN (13:00)
[2021-11-18] MEDS: RAMELTEON 8 MG TAB (ROZEREM) PO SCH (23:25)
[2021-11-18] MEDS: guaiFENesin 200 MG TAB PO PRN (23:25)
[2021-11-19] MEDS: KETOROLAC TROMETHAMINE 10 MG TAB PO PRN ×2 (02:11→14:29)
[2021-11-19 06:00] VITALS: BP 145/74
[2021-11-19] MEDS: metFORMIN (GLUCOPHAGE) 500MG TAB PO SCH (08:00)
[2021-11-19] MEDS: QUEtiapine FUMARATE 25 MG TAB PO SCH ×3 (09:00→20:40)
[2021-11-19] MEDS: FUROSEMIDE 40 MG TAB PO SCH (09:00)
[2021-11-19] MEDS: DICLOFENAC EPOLAMINE 1.3% PATCH TOP SCH ×2 (09:00→20:42)
[2021-11-19] MEDS: TAMSULOSIN 0.4 MG CAP PO SCH (09:00)
[2021-11-19] MEDS: DOCUSATE SODIUM 100MG CAPSULE PO SCH ×2 (09:00→20:41)
[2021-11-19] MEDS: ASPIRIN 81MG CHEW TABLET PO SCH (09:00)
[2021-11-19] MEDS: ATORVASTATIN 20 MG TAB PO SCH (09:13)
[2021-11-19] MEDS: SODIUM CHLORIDE NASAL 0.65% SPRAY BTL (OCEAN) SCH ×3 (11:52→20:41)
[2021-11-19] MEDS: FLUTICASONE PROP 0.05% NASAL SPRAY 16 GM (FLONASE) NARES SCH ×2 (17:04→20:56)
[2021-11-19] MEDS: traMADol 50 MG TAB PO PRN (18:51)
[2021-11-19] MEDS: RAMELTEON 8 MG TAB (ROZEREM) PO SCH (20:40)
[2021-11-20] MEDS: oxyCODONE 5MG TAB PO PRN ×3 (01:47→15:45)
[2021-11-20 04:44] VITALS: BP 144/84
[2021-11-20] MEDS: ATORVASTATIN 20 MG TAB PO SCH (08:30)
[2021-11-20] MEDS: DOCUSATE SODIUM 100MG CAPSULE PO SCH ×2 (08:30→20:52)
[2021-11-20] MEDS: metFORMIN (GLUCOPHAGE) 500MG TAB PO SCH (08:30)
[2021-11-20] MEDS: QUEtiapine FUMARATE 25 MG TAB PO SCH ×2 (08:30→20:48)
[2021-11-20] MEDS: ASPIRIN 81MG CHEW TABLET PO SCH (08:30)
[2021-11-20] MEDS: TAMSULOSIN 0.4 MG CAP PO SCH (08:30)
[2021-11-20] MEDS: FUROSEMIDE 40 MG TAB PO SCH (08:30)
[2021-11-20] MEDS: DICLOFENAC EPOLAMINE 1.3% PATCH TOP SCH ×3 (08:31→20:52)
[2021-11-20] MEDS: SODIUM CHLORIDE NASAL 0.65% SPRAY BTL (OCEAN) SCH ×3 (08:31→20:52)
[2021-11-20] MEDS: FLUTICASONE PROP 0.05% NASAL SPRAY 16 GM (FLONASE) NARES SCH ×2 (08:31→20:51)
[2021-11-20] MEDS: RAMELTEON 8 MG TAB (ROZEREM) PO SCH (20:48)
[2021-11-21] MEDS: CALCIUM CARBONATE 500 MG CHEW U/D PO PRN ×2 (00:27→18:44)
[2021-11-21] MEDS: oxyCODONE 5MG TAB PO PRN (03:51)
[2021-11-21] MEDS: traMADol 50 MG TAB PO PRN ×3 (05:48→22:56)
[2021-11-21 06:00] VITALS: BP 136/74
[2021-11-21] MEDS: metFORMIN (GLUCOPHAGE) 500MG TAB PO SCH (08:00)
[2021-11-21] MEDS: TAMSULOSIN 0.4 MG CAP PO SCH (09:00)
[2021-11-21] MEDS: SODIUM CHLORIDE NASAL 0.65% SPRAY BTL (OCEAN) SCH ×3 (09:00→20:37)
[2021-11-21] MEDS: ASPIRIN 81MG CHEW TABLET PO SCH (09:00)
[2021-11-21] MEDS: ATORVASTATIN 20 MG TAB PO SCH (09:00)
[2021-11-21] MEDS: DICLOFENAC EPOLAMINE 1.3% PATCH TOP SCH ×2 (09:00→20:39)
[2021-11-21] MEDS: FUROSEMIDE 40 MG TAB PO SCH (09:00)
[2021-11-21] MEDS: QUEtiapine FUMARATE 25 MG TAB PO SCH ×2 (09:00→20:37)
[2021-11-21] MEDS: DOCUSATE SODIUM 100MG CAPSULE PO SCH ×2 (09:00→20:37)
[2021-11-21] MEDS: FLUTICASONE PROP 0.05% NASAL SPRAY 16 GM (FLONASE) NARES SCH ×2 (11:32→20:38)
[2021-11-21] MEDS: RAMELTEON 8 MG TAB (ROZEREM) PO SCH (20:37)
[2021-11-22] MEDS: oxyCODONE 5MG TAB PO PRN ×2 (02:04→21:40)
[2021-11-22 06:00] VITALS: BP 138/79
[2021-11-22] MEDS: metFORMIN (GLUCOPHAGE) 500MG TAB PO SCH (07:58)
[2021-11-22] MEDS: FLUTICASONE PROP 0.05% NASAL SPRAY 16 GM (FLONASE) NARES SCH ×2 (07:58→21:38)
[2021-11-22] MEDS: ASPIRIN 81MG CHEW TABLET PO SCH ×2 (07:59→08:03)
[2021-11-22] MEDS: ATORVASTATIN 20 MG TAB PO SCH (07:59)
[2021-11-22] MEDS: TAMSULOSIN 0.4 MG CAP PO SCH (07:59)
[2021-11-22] MEDS: FUROSEMIDE 40 MG TAB PO SCH (07:59)
[2021-11-22] MEDS: SODIUM CHLORIDE NASAL 0.65% SPRAY BTL (OCEAN) SCH ×3 (08:00→21:38)
[2021-11-22] MEDS: QUEtiapine FUMARATE 25 MG TAB PO SCH ×2 (08:00→21:39)
[2021-11-22] MEDS: DOCUSATE SODIUM 100MG CAPSULE PO SCH ×2 (08:03→21:39)
[2021-11-22] MEDS: DICLOFENAC EPOLAMINE 1.3% PATCH TOP SCH ×2 (08:04→21:00)
[2021-11-22] MEDS: CALCIUM CARBONATE 500 MG CHEW U/D PO PRN (14:29)
[2021-11-22] MEDS: RAMELTEON 8 MG TAB (ROZEREM) PO SCH (21:39)
[2021-11-23] MEDS: CALCIUM CARBONATE 500 MG CHEW U/D PO PRN ×2 (02:59→09:25)
[2021-11-23] MEDS: traMADol 50 MG TAB PO PRN ×3 (03:05→20:59)
[2021-11-23 06:00] VITALS: BP 130/75
[2021-11-23] MEDS: oxyCODONE 5MG TAB PO PRN ×2 (09:26→15:57)
[2021-11-23] MEDS: metFORMIN (GLUCOPHAGE) 500MG TAB PO SCH (10:34)
[2021-11-23] MEDS: TAMSULOSIN 0.4 MG CAP PO SCH (10:34)
[2021-11-23] MEDS: DICLOFENAC EPOLAMINE 1.3% PATCH TOP SCH ×3 (10:34→21:00)
[2021-11-23] MEDS: ASPIRIN 81MG CHEW TABLET PO SCH (10:34)
[2021-11-23] MEDS: QUEtiapine FUMARATE 25 MG TAB PO SCH ×2 (10:35→20:59)
[2021-11-23] MEDS: ATORVASTATIN 20 MG TAB PO SCH (10:35)
[2021-11-23] MEDS: FUROSEMIDE 40 MG TAB PO SCH (11:00)
[2021-11-23] MEDS: SODIUM CHLORIDE NASAL 0.65% SPRAY BTL (OCEAN) SCH ×3 (11:00→21:02)
[2021-11-23] MEDS: DOCUSATE SODIUM 100MG CAPSULE PO SCH ×2 (11:00→21:00)
[2021-11-23] MEDS: FLUTICASONE PROP 0.05% NASAL SPRAY 16 GM (FLONASE) NARES SCH ×2 (11:00→21:02)
[2021-11-23 18:05] LABS: BASO # 0.1 10^3/uL (0.0-0.2); BASO % 0.8 % (0.0-1.0); EOS # 0.2 10^3/uL (0.0-0.5); EOS % 3.8 % (0.0-3.0); HEMATOCRIT 41.2 % (42.0-52.0); HEMOGLOBIN 13.7 g/dl (13.5-17.5); LYMPH # 2.3 10^3/uL (1.5-5.0); LYMPH % 35.7 % (24.0-44.0); MEAN CORPUSCULAR HEMOGLOBIN 28.2 pg (27.0-33.0); MEAN CORPUSCULAR HGB CONC 33.3 g/dl (32.0-36.5); MEAN CORPUSCULAR VOLUME 84.9 fl (80.0-96.0); MONO # 0.6 10^3/uL (0.0-0.8); MONO % 9.7 % (2.0-8.0); NEUTROPHILS # 3.2 10^3/uL (1.5-8.5); NEUTROPHILS % 49.7 % (36.0-66.0); PLATELET COUNT, AUTOMATED 290 10^3/uL (150-450); RED BLOOD COUNT 4.85 10^6/uL (4.30-6.10); WHITE BLOOD COUNT 6.4 10^3/uL (4.0-10.0)
[2021-11-23 18:23] LABS: ERYTHROCYTE SEDIMENTATION RATE 25 mm/hr (0-20)
[2021-11-23 18:32] LABS: ALBUMIN 3.1 GM/DL (3.2-5.2); ALKALINE PHOSPHATASE 135 U/L (45-117); ALT/SGPT 24 U/L (12-78); AST/SGOT 10 U/L (7-37); BILIRUBIN,TOTAL 0.3 MG/DL (0.2-1.0); BLOOD UREA NITROGEN 25 MG/DL (7-18); C REACTIVE PROTEIN QUANTITATIV 1.08 MG/DL (0.00-0.30); CALCIUM LEVEL 8.6 MG/DL (8.8-10.2); CARBON DIOXIDE LEVEL 31 MEQ/L (21-32); CHLORIDE LEVEL 99 MEQ/L (98-107); CREATININE FOR GFR 0.81 MG/DL (0.70-1.30); GLOMERULAR FILTRATION RATE > 60.0 (>42); GLUCOSE, FASTING 150 MG/DL (70-100); MAGNESIUM LEVEL 2.1 MG/DL (1.8-2.4); POTASSIUM SERUM 3.8 MEQ/L (3.5-5.1); SODIUM LEVEL 136 MEQ/L (136-145); TOTAL PROTEIN 6.2 GM/DL (6.4-8.2)
[2021-11-23 18:34] LABS: CK-MB VALUE MASS 1.9 NG/ML (<3.6); MB/CK RELATIVE INDEX 1.92 (< OR =4)
[2021-11-23] MEDS: RAMELTEON 8 MG TAB (ROZEREM) PO SCH (20:59)
[2021-11-24] MEDS: traMADol 50 MG TAB PO PRN ×2 (05:53→19:57)
[2021-11-24 06:00] VITALS: BP 132/69
[2021-11-24] MEDS: QUEtiapine FUMARATE 25 MG TAB PO SCH ×2 (08:08→19:57)
[2021-11-24] MEDS: ASPIRIN 81MG CHEW TABLET PO SCH (08:08)
[2021-11-24] MEDS: ATORVASTATIN 20 MG TAB PO SCH (08:08)
[2021-11-24] MEDS: metFORMIN (GLUCOPHAGE) 500MG TAB PO SCH (08:08)
[2021-11-24] MEDS: FUROSEMIDE 40 MG TAB PO SCH (08:08)
[2021-11-24] MEDS: SODIUM CHLORIDE NASAL 0.65% SPRAY BTL (OCEAN) SCH ×3 (08:13→19:57)
[2021-11-24] MEDS: FLUTICASONE PROP 0.05% NASAL SPRAY 16 GM (FLONASE) NARES SCH ×2 (08:13→19:58)
[2021-11-24] MEDS: DOCUSATE SODIUM 100MG CAPSULE PO SCH ×2 (08:14→21:00)
[2021-11-24] MEDS: DICLOFENAC EPOLAMINE 1.3% PATCH TOP SCH ×2 (08:14→21:00)
[2021-11-24] MEDS: TAMSULOSIN 0.4 MG CAP PO SCH (08:14)
[2021-11-24] MEDS: CALCIUM CARBONATE 500 MG CHEW U/D PO PRN (10:42)
[2021-11-24] MEDS: RAMELTEON 8 MG TAB (ROZEREM) PO SCH (19:57)
[2021-11-24] MEDS: oxyCODONE 5MG TAB PO PRN (23:01)
[2021-11-25] MEDS: ACETAMINOPHEN TAB 650MG DOSE (2X325MG) PO PRN (01:25)
[2021-11-25 05:48] VITALS: BP 133/77
[2021-11-25] MEDS: metFORMIN (GLUCOPHAGE) 500MG TAB PO SCH (08:00)
[2021-11-25] MEDS: FUROSEMIDE 40 MG TAB PO SCH (08:58)
[2021-11-25] MEDS: ATORVASTATIN 20 MG TAB PO SCH (08:58)
[2021-11-25] MEDS: ASPIRIN 81MG CHEW TABLET PO SCH (08:58)
[2021-11-25] MEDS: SODIUM CHLORIDE NASAL 0.65% SPRAY BTL (OCEAN) SCH ×3 (08:58→19:50)
[2021-11-25] MEDS: FLUTICASONE PROP 0.05% NASAL SPRAY 16 GM (FLONASE) NARES SCH ×2 (08:58→19:50)
[2021-11-25] MEDS: QUEtiapine FUMARATE 25 MG TAB PO SCH ×2 (08:59→19:50)
[2021-11-25] MEDS: TAMSULOSIN 0.4 MG CAP PO SCH (09:00)
[2021-11-25] MEDS: DICLOFENAC EPOLAMINE 1.3% PATCH TOP SCH ×2 (09:00→19:49)
[2021-11-25] MEDS: DOCUSATE SODIUM 100MG CAPSULE PO SCH ×2 (09:00→19:50)
[2021-11-25] MEDS: CALCIUM CARBONATE 500 MG CHEW U/D PO PRN (10:01)
[2021-11-25] MEDS: oxyCODONE 5MG TAB PO PRN ×2 (11:49→19:51)
[2021-11-25] MEDS: traMADol 50 MG TAB PO PRN ×2 (15:28→22:06)
[2021-11-25] MEDS: RAMELTEON 8 MG TAB (ROZEREM) PO SCH (19:50)
[2021-11-25] MEDS: guaiFENesin 200 MG TAB PO PRN (22:05)
[2021-11-26] MEDS: oxyCODONE 5MG TAB PO PRN ×3 (04:41→21:02)
[2021-11-26 06:00] VITALS: BP 132/76
[2021-11-26] MEDS: CALCIUM CARBONATE 500 MG CHEW U/D PO PRN (06:51)
[2021-11-26] MEDS: metFORMIN (GLUCOPHAGE) 500MG TAB PO SCH (07:59)
[2021-11-26] MEDS: ASPIRIN 81MG CHEW TABLET PO SCH (09:00)
[2021-11-26] MEDS: SODIUM CHLORIDE NASAL 0.65% SPRAY BTL (OCEAN) SCH ×3 (09:00→21:03)
[2021-11-26] MEDS: DICLOFENAC EPOLAMINE 1.3% PATCH TOP SCH ×2 (09:00→21:00)
[2021-11-26] MEDS: DOCUSATE SODIUM 100MG CAPSULE PO SCH ×2 (09:00→21:01)
[2021-11-26] MEDS: FLUTICASONE PROP 0.05% NASAL SPRAY 16 GM (FLONASE) NARES SCH ×2 (09:00→21:03)
[2021-11-26] MEDS: FUROSEMIDE 40 MG TAB PO SCH (10:29)
[2021-11-26] MEDS: TAMSULOSIN 0.4 MG CAP PO SCH (10:29)
[2021-11-26] MEDS: ATORVASTATIN 20 MG TAB PO SCH (10:30)
[2021-11-26] MEDS: QUEtiapine FUMARATE 25 MG TAB PO SCH ×2 (10:30→21:01)
[2021-11-26] MEDS: RAMELTEON 8 MG TAB (ROZEREM) PO SCH (21:01)
[2021-11-26] MEDS: traMADol 50 MG TAB PO PRN (22:50)
[2021-11-26] MEDS: ACETAMINOPHEN TAB 650MG DOSE (2X325MG) PO PRN (22:50)
[2021-11-27 04:37] VITALS: BP 128/75
[2021-11-27] MEDS: metFORMIN (GLUCOPHAGE) 500MG TAB PO SCH (08:00)
[2021-11-27] MEDS: TAMSULOSIN 0.4 MG CAP PO SCH (08:42)
[2021-11-27] MEDS: DOCUSATE SODIUM 100MG CAPSULE PO SCH ×2 (08:42→20:35)
[2021-11-27] MEDS: FUROSEMIDE 40 MG TAB PO SCH (08:42)
[2021-11-27] MEDS: ASPIRIN 81MG CHEW TABLET PO SCH (08:42)
[2021-11-27] MEDS: DICLOFENAC EPOLAMINE 1.3% PATCH TOP SCH ×2 (08:43→20:36)
[2021-11-27] MEDS: ATORVASTATIN 20 MG TAB PO SCH (08:43)
[2021-11-27] MEDS: FLUTICASONE PROP 0.05% NASAL SPRAY 16 GM (FLONASE) NARES SCH ×2 (08:43→20:35)
[2021-11-27] MEDS: SODIUM CHLORIDE NASAL 0.65% SPRAY BTL (OCEAN) SCH ×3 (08:43→20:35)
[2021-11-27] MEDS: QUEtiapine FUMARATE 25 MG TAB PO SCH ×2 (08:43→20:35)
[2021-11-27] MEDS: CALCIUM CARBONATE 500 MG CHEW U/D PO PRN (13:05)
[2021-11-27] MEDS: RAMELTEON 8 MG TAB (ROZEREM) PO SCH (20:35)
[2021-11-27] MEDS: traMADol 50 MG TAB PO PRN (21:03)
[2021-11-28 04:57] LABS: BASO # 0.1 10^3/uL (0.0-0.2); BASO % 0.9 % (0.0-1.0); EOS # 0.2 10^3/uL (0.0-0.5); EOS % 3.2 % (0.0-3.0); HEMATOCRIT 38.6 % (42.0-52.0); HEMOGLOBIN 13.2 g/dl (13.5-17.5); LYMPH # 2.4 10^3/uL (1.5-5.0); LYMPH % 36.6 % (24.0-44.0); MEAN CORPUSCULAR HEMOGLOBIN 28.4 pg (27.0-33.0); MEAN CORPUSCULAR HGB CONC 34.2 g/dl (32.0-36.5); MEAN CORPUSCULAR VOLUME 83.2 fl (80.0-96.0); MONO # 0.7 10^3/uL (0.0-0.8); MONO % 10.6 % (2.0-8.0); NEUTROPHILS # 3.1 10^3/uL (1.5-8.5); NEUTROPHILS % 48.2 % (36.0-66.0); PLATELET COUNT, AUTOMATED 236 10^3/uL (150-450); RED BLOOD COUNT 4.64 10^6/uL (4.30-6.10); WHITE BLOOD COUNT 6.5 10^3/uL (4.0-10.0)
[2021-11-28 05:19] LABS: BLOOD UREA NITROGEN 21 MG/DL (7-18); CALCIUM LEVEL 8.5 MG/DL (8.8-10.2); CARBON DIOXIDE LEVEL 27 MEQ/L (21-32); CHLORIDE LEVEL 101 MEQ/L (98-107); GLOMERULAR FILTRATION RATE > 60.0 (>42); GLUCOSE, FASTING 127 MG/DL (70-100); POTASSIUM SERUM 3.8 MEQ/L (3.5-5.1); SODIUM LEVEL 132 MEQ/L (136-145)
[2021-11-28 06:00] VITALS: BP 141/83
[2021-11-28] MEDS: metFORMIN (GLUCOPHAGE) 500MG TAB PO SCH (07:17)
[2021-11-28] MEDS: ATORVASTATIN 20 MG TAB PO SCH (09:00)
[2021-11-28] MEDS: FLUTICASONE PROP 0.05% NASAL SPRAY 16 GM (FLONASE) NARES SCH ×2 (09:00→20:11)
[2021-11-28] MEDS: DOCUSATE SODIUM 100MG CAPSULE PO SCH ×2 (09:00→20:10)
[2021-11-28] MEDS: DICLOFENAC EPOLAMINE 1.3% PATCH TOP SCH ×2 (09:00→20:11)
[2021-11-28] MEDS: QUEtiapine FUMARATE 25 MG TAB PO SCH ×2 (09:00→20:11)
[2021-11-28] MEDS: TAMSULOSIN 0.4 MG CAP PO SCH (09:00)
[2021-11-28] MEDS: SODIUM CHLORIDE NASAL 0.65% SPRAY BTL (OCEAN) SCH ×3 (09:00→20:11)
[2021-11-28] MEDS: FUROSEMIDE 40 MG TAB PO SCH (09:00)
[2021-11-28] MEDS: ASPIRIN 81MG CHEW TABLET PO SCH (09:00)
[2021-11-28] MEDS: traMADol 50 MG TAB PO PRN (17:35)
[2021-11-28] MEDS: guaiFENesin 200 MG TAB PO PRN (17:35)
[2021-11-28] MEDS: RAMELTEON 8 MG TAB (ROZEREM) PO SCH (20:10)
[2021-11-28] MEDS: oxyCODONE 5MG TAB PO PRN (23:19)
[2021-11-29] MEDS: oxyCODONE 5MG TAB PO PRN ×3 (04:57→20:59)
[2021-11-29 06:00] VITALS: BP 137/76
[2021-11-29] MEDS: CALCIUM CARBONATE 500 MG CHEW U/D PO PRN ×2 (07:29→15:49)
[2021-11-29] MEDS: ATORVASTATIN 20 MG TAB PO SCH (09:00)
[2021-11-29] MEDS: TAMSULOSIN 0.4 MG CAP PO SCH (09:00)
[2021-11-29] MEDS: DOCUSATE SODIUM 100MG CAPSULE PO SCH ×2 (09:00→21:01)
[2021-11-29] MEDS: ASPIRIN 81MG CHEW TABLET PO SCH (09:00)
[2021-11-29] MEDS: SODIUM CHLORIDE NASAL 0.65% SPRAY BTL (OCEAN) SCH ×3 (09:00→21:00)
[2021-11-29] MEDS: FLUTICASONE PROP 0.05% NASAL SPRAY 16 GM (FLONASE) NARES SCH ×2 (09:00→21:00)
[2021-11-29] MEDS: FUROSEMIDE 40 MG TAB PO SCH (09:00)
[2021-11-29] MEDS: DICLOFENAC EPOLAMINE 1.3% PATCH TOP SCH ×2 (09:00→21:00)
[2021-11-29] MEDS: QUEtiapine FUMARATE 25 MG TAB PO SCH ×2 (09:30→20:58)
[2021-11-29] MEDS: metFORMIN (GLUCOPHAGE) 500MG TAB PO SCH (09:31)
[2021-11-29] MEDS: CARBAMIDE PEROXIDE 6.5% OTIC SOLN 15ML AU SCH ×2 (15:00→20:58)
[2021-11-29] MEDS: RAMELTEON 8 MG TAB (ROZEREM) PO SCH (20:59)
[2021-11-30] MEDS: traMADol 50 MG TAB PO PRN (02:23)
[2021-11-30 05:40] VITALS: BP 141/78
[2021-11-30] MEDS: metFORMIN (GLUCOPHAGE) 500MG TAB PO SCH (08:00)
[2021-11-30] MEDS: ASPIRIN 81MG CHEW TABLET PO SCH ×2 (09:58→10:01)
[2021-11-30] MEDS: QUEtiapine FUMARATE 25 MG TAB PO SCH ×3 (09:58→20:34)
[2021-11-30] MEDS: FUROSEMIDE 40 MG TAB PO SCH ×2 (09:58→10:02)
[2021-11-30] MEDS: TAMSULOSIN 0.4 MG CAP PO SCH ×2 (09:58→10:01)
[2021-11-30] MEDS: ATORVASTATIN 20 MG TAB PO SCH (10:02)
[2021-11-30] MEDS: SODIUM CHLORIDE NASAL 0.65% SPRAY BTL (OCEAN) SCH ×3 (10:03→20:34)
[2021-11-30] MEDS: CARBAMIDE PEROXIDE 6.5% OTIC SOLN 15ML AU SCH ×2 (10:03→20:34)
[2021-11-30] MEDS: FLUTICASONE PROP 0.05% NASAL SPRAY 16 GM (FLONASE) NARES SCH ×2 (10:03→20:34)
[2021-11-30] MEDS: DICLOFENAC EPOLAMINE 1.3% PATCH TOP SCH ×2 (10:04→20:35)
[2021-11-30] MEDS: DOCUSATE SODIUM 100MG CAPSULE PO SCH ×2 (10:06→20:33)
[2021-11-30] MEDS: FLUoxetine 10 MG CAP PO SCH (14:20)
[2021-11-30] MEDS: ACETAMINOPHEN TAB 650MG DOSE (2X325MG) PO PRN (16:51)
[2021-11-30] MEDS: RAMELTEON 8 MG TAB (ROZEREM) PO SCH (20:33)
[2021-11-30] MEDS: oxyCODONE 5MG TAB PO PRN (20:34)
[2021-12-01] MEDS: FLUTICASONE PROP 0.05% NASAL SPRAY 16 GM (FLONASE) NARES SCH ×2 (09:00→20:30)
[2021-12-01] MEDS: FUROSEMIDE 40 MG TAB PO SCH (09:00)
[2021-12-01] MEDS: SODIUM CHLORIDE NASAL 0.65% SPRAY BTL (OCEAN) SCH ×3 (09:00→20:31)
[2021-12-01] MEDS: DOCUSATE SODIUM 100MG CAPSULE PO SCH ×2 (09:00→20:31)
[2021-12-01] MEDS: ASPIRIN 81MG CHEW TABLET PO SCH (09:00)
[2021-12-01] MEDS: metFORMIN (GLUCOPHAGE) 500MG TAB PO SCH (09:00)
[2021-12-01] MEDS: CARBAMIDE PEROXIDE 6.5% OTIC SOLN 15ML AU SCH ×2 (09:00→20:30)
[2021-12-01] MEDS: DICLOFENAC EPOLAMINE 1.3% PATCH TOP SCH ×2 (09:00→20:46)
[2021-12-01] MEDS: TAMSULOSIN 0.4 MG CAP PO SCH (09:00)
[2021-12-01] MEDS: QUEtiapine FUMARATE 25 MG TAB PO SCH ×2 (10:52→20:31)
[2021-12-01] MEDS: traMADol 50 MG TAB PO PRN ×2 (10:52→20:31)
[2021-12-01] MEDS: FLUoxetine 10 MG CAP PO SCH (10:53)
[2021-12-01] MEDS: ATORVASTATIN 20 MG TAB PO SCH (10:53)
[2021-12-01] MEDS: RAMELTEON 8 MG TAB (ROZEREM) PO SCH (20:32)
[2021-12-02] MEDS: oxyCODONE 5MG TAB PO PRN (01:43)
[2021-12-02 05:05] VITALS: BP 142/69
[2021-12-02] MEDS: metFORMIN (GLUCOPHAGE) 500MG TAB PO SCH (08:00)
[2021-12-02] MEDS: DICLOFENAC EPOLAMINE 1.3% PATCH TOP SCH ×2 (09:00→20:07)
[2021-12-02] MEDS: FUROSEMIDE 40 MG TAB PO SCH (09:00)
[2021-12-02] MEDS: QUEtiapine FUMARATE 25 MG TAB PO SCH ×2 (10:46→20:05)
[2021-12-02] MEDS: FLUoxetine 10 MG CAP PO SCH (10:46)
[2021-12-02] MEDS: DOCUSATE SODIUM 100MG CAPSULE PO SCH ×2 (10:46→20:06)
[2021-12-02] MEDS: ATORVASTATIN 20 MG TAB PO SCH (10:46)
[2021-12-02] MEDS: ASPIRIN 81MG CHEW TABLET PO SCH (10:46)
[2021-12-02] MEDS: TAMSULOSIN 0.4 MG CAP PO SCH (10:48)
[2021-12-02] MEDS: SODIUM CHLORIDE NASAL 0.65% SPRAY BTL (OCEAN) SCH ×3 (10:49→20:07)
[2021-12-02] MEDS: FLUTICASONE PROP 0.05% NASAL SPRAY 16 GM (FLONASE) NARES SCH ×2 (10:49→20:07)
[2021-12-02] MEDS: CARBAMIDE PEROXIDE 6.5% OTIC SOLN 15ML AU SCH ×2 (10:49→20:04)
[2021-12-02] MEDS: traMADol 50 MG TAB PO PRN ×2 (10:53→20:06)
[2021-12-02] MEDS: ACETAMINOPHEN TAB 650MG DOSE (2X325MG) PO PRN (13:32)
[2021-12-02] MEDS: carisoprodoL 350 MG TAB PO PRN (13:32)
[2021-12-02] MEDS: RAMELTEON 8 MG TAB (ROZEREM) PO SCH (20:06)
[2021-12-03 06:47] VITALS: BP 140/65
[2021-12-03] MEDS: metFORMIN (GLUCOPHAGE) 500MG TAB PO SCH (07:55)
[2021-12-03] MEDS: ASPIRIN 81MG CHEW TABLET PO SCH (10:50)
[2021-12-03] MEDS: QUEtiapine FUMARATE 25 MG TAB PO SCH ×2 (10:50→20:04)
[2021-12-03] MEDS: DOCUSATE SODIUM 100MG CAPSULE PO SCH ×2 (10:50→20:04)
[2021-12-03] MEDS: TAMSULOSIN 0.4 MG CAP PO SCH (10:55)
[2021-12-03] MEDS: ATORVASTATIN 20 MG TAB PO SCH (10:55)
[2021-12-03] MEDS: FLUoxetine 10 MG CAP PO SCH (10:55)
[2021-12-03] MEDS: FUROSEMIDE 40 MG TAB PO SCH (10:55)
[2021-12-03] MEDS: SODIUM CHLORIDE NASAL 0.65% SPRAY BTL (OCEAN) SCH ×3 (10:56→20:04)
[2021-12-03] MEDS: FLUTICASONE PROP 0.05% NASAL SPRAY 16 GM (FLONASE) NARES SCH ×2 (10:56→20:05)
[2021-12-03] MEDS: DICLOFENAC EPOLAMINE 1.3% PATCH TOP SCH ×3 (10:57→20:22)
[2021-12-03] MEDS: traMADol 50 MG TAB PO PRN ×2 (16:31→23:21)
[2021-12-03] MEDS: RAMELTEON 8 MG TAB (ROZEREM) PO SCH (20:04)
[2021-12-04 06:00] VITALS: BP 141/65
[2021-12-04] MEDS: FUROSEMIDE 40 MG TAB PO SCH (08:57)
[2021-12-04] MEDS: ATORVASTATIN 20 MG TAB PO SCH (08:57)
[2021-12-04] MEDS: metFORMIN (GLUCOPHAGE) 500MG TAB PO SCH (08:57)
[2021-12-04] MEDS: FLUoxetine 10 MG CAP PO SCH (08:57)
[2021-12-04] MEDS: ASPIRIN 81MG CHEW TABLET PO SCH (08:57)
[2021-12-04] MEDS: DOCUSATE SODIUM 100MG CAPSULE PO SCH ×2 (08:57→21:00)
[2021-12-04] MEDS: QUEtiapine FUMARATE 25 MG TAB PO SCH ×2 (08:57→21:00)
[2021-12-04] MEDS: SODIUM CHLORIDE NASAL 0.65% SPRAY BTL (OCEAN) SCH ×3 (08:58→21:00)
[2021-12-04] MEDS: FLUTICASONE PROP 0.05% NASAL SPRAY 16 GM (FLONASE) NARES SCH ×2 (08:58→21:00)
[2021-12-04] MEDS: DICLOFENAC EPOLAMINE 1.3% PATCH TOP SCH ×2 (08:59→21:00)
[2021-12-04] MEDS: TAMSULOSIN 0.4 MG CAP PO SCH (09:06)
[2021-12-04] MEDS: RAMELTEON 8 MG TAB (ROZEREM) PO SCH (21:00)
[2021-12-04] MEDS: traMADol 50 MG TAB PO PRN (21:55)
[2021-12-05] MEDS: metFORMIN (GLUCOPHAGE) 500MG TAB PO SCH (08:00)
[2021-12-05] MEDS: FLUTICASONE PROP 0.05% NASAL SPRAY 16 GM (FLONASE) NARES SCH ×2 (09:00→19:59)
[2021-12-05] MEDS: DICLOFENAC EPOLAMINE 1.3% PATCH TOP SCH ×2 (09:00→21:00)
[2021-12-05] MEDS: SODIUM CHLORIDE NASAL 0.65% SPRAY BTL (OCEAN) SCH ×3 (09:00→20:00)
[2021-12-05] MEDS: ATORVASTATIN 20 MG TAB PO SCH (13:46)
[2021-12-05] MEDS: QUEtiapine FUMARATE 25 MG TAB PO SCH ×2 (13:47→19:59)
[2021-12-05] MEDS: FUROSEMIDE 40 MG TAB PO SCH (13:47)
[2021-12-05] MEDS: DOCUSATE SODIUM 100MG CAPSULE PO SCH ×2 (13:47→19:58)
[2021-12-05] MEDS: ASPIRIN 81MG CHEW TABLET PO SCH (13:47)
[2021-12-05] MEDS: FLUoxetine 10 MG CAP PO SCH (13:47)
[2021-12-05] MEDS: TAMSULOSIN 0.4 MG CAP PO SCH (13:47)
[2021-12-05] MEDS: oxyCODONE 5MG TAB PO PRN (16:04)
[2021-12-05] MEDS: traMADol 50 MG TAB PO PRN (19:59)
[2021-12-05] MEDS: RAMELTEON 8 MG TAB (ROZEREM) PO SCH (19:59)
[2021-12-06 08:00] VITALS: BP 140/68
[2021-12-06] MEDS: metFORMIN (GLUCOPHAGE) 500MG TAB PO SCH (08:00)
[2021-12-06] MEDS: DICLOFENAC EPOLAMINE 1.3% PATCH TOP SCH ×3 (09:00→20:01)
[2021-12-06] MEDS: QUEtiapine FUMARATE 25 MG TAB PO SCH ×2 (09:06→20:00)
[2021-12-06] MEDS: DOCUSATE SODIUM 100MG CAPSULE PO SCH ×2 (09:06→19:59)
[2021-12-06] MEDS: TAMSULOSIN 0.4 MG CAP PO SCH (09:07)
[2021-12-06] MEDS: FUROSEMIDE 40 MG TAB PO SCH (09:07)
[2021-12-06] MEDS: ASPIRIN 81MG CHEW TABLET PO SCH (09:07)
[2021-12-06] MEDS: FLUoxetine 10 MG CAP PO SCH (09:07)
[2021-12-06] MEDS: ATORVASTATIN 20 MG TAB PO SCH (09:07)
[2021-12-06] MEDS: FLUTICASONE PROP 0.05% NASAL SPRAY 16 GM (FLONASE) NARES SCH ×2 (09:08→20:00)
[2021-12-06] MEDS: SODIUM CHLORIDE NASAL 0.65% SPRAY BTL (OCEAN) SCH ×3 (09:09→20:00)
[2021-12-06] MEDS: traMADol 50 MG TAB PO PRN ×2 (13:42→23:29)
[2021-12-06] MEDS: RAMELTEON 8 MG TAB (ROZEREM) PO SCH (20:00)
[2021-12-07] MEDS: oxyCODONE 5MG TAB PO PRN (04:58)
[2021-12-07 05:54] VITALS: BP 136/74
[2021-12-07] MEDS: metFORMIN (GLUCOPHAGE) 500MG TAB PO SCH (08:03)
[2021-12-07] MEDS: TAMSULOSIN 0.4 MG CAP PO SCH (08:03)
[2021-12-07] MEDS: ASPIRIN 81MG CHEW TABLET PO SCH (08:03)
[2021-12-07] MEDS: DOCUSATE SODIUM 100MG CAPSULE PO SCH ×2 (08:04→20:11)
[2021-12-07] MEDS: FLUoxetine 10 MG CAP PO SCH (08:04)
[2021-12-07] MEDS: ATORVASTATIN 20 MG TAB PO SCH (08:04)
[2021-12-07] MEDS: QUEtiapine FUMARATE 25 MG TAB PO SCH ×2 (08:04→20:13)
[2021-12-07] MEDS: DICLOFENAC EPOLAMINE 1.3% PATCH TOP SCH ×2 (08:05→21:00)
[2021-12-07] MEDS: SODIUM CHLORIDE NASAL 0.65% SPRAY BTL (OCEAN) SCH ×3 (08:05→20:14)
[2021-12-07] MEDS: FLUTICASONE PROP 0.05% NASAL SPRAY 16 GM (FLONASE) NARES SCH ×2 (08:05→22:25)
[2021-12-07] MEDS: FUROSEMIDE 40 MG TAB PO SCH (08:05)
[2021-12-07] MEDS: guaiFENesin 200 MG TAB PO PRN (18:01)
[2021-12-07] MEDS: RAMELTEON 8 MG TAB (ROZEREM) PO SCH (20:11)
[2021-12-07] MEDS: traMADol 50 MG TAB PO PRN (20:12)
[2021-12-07 20:57] VITALS: BP 117/79
[2021-12-08] MEDS: traMADol 50 MG TAB PO PRN (03:59)
[2021-12-08 05:24] VITALS: BP 127/73
[2021-12-08] MEDS: metFORMIN (GLUCOPHAGE) 500MG TAB PO SCH (07:01)
[2021-12-08] MEDS: FUROSEMIDE 40 MG TAB PO SCH (09:00)
[2021-12-08] MEDS: TAMSULOSIN 0.4 MG CAP PO SCH (09:00)
[2021-12-08] MEDS: DOCUSATE SODIUM 100MG CAPSULE PO SCH ×2 (09:00→21:02)
[2021-12-08] MEDS: DICLOFENAC EPOLAMINE 1.3% PATCH TOP SCH ×2 (09:00→21:00)
[2021-12-08] MEDS: ATORVASTATIN 20 MG TAB PO SCH (09:00)
[2021-12-08] MEDS: ASPIRIN 81MG CHEW TABLET PO SCH (09:00)
[2021-12-08] MEDS: FLUoxetine 10 MG CAP PO SCH (09:00)
[2021-12-08] MEDS: SODIUM CHLORIDE NASAL 0.65% SPRAY BTL (OCEAN) SCH ×3 (09:00→21:02)
[2021-12-08] MEDS: FLUTICASONE PROP 0.05% NASAL SPRAY 16 GM (FLONASE) NARES SCH ×2 (09:00→21:02)
[2021-12-08] MEDS: QUEtiapine FUMARATE 25 MG TAB PO SCH (09:00)
[2021-12-08] MEDS: oxyCODONE 5MG TAB PO PRN ×2 (12:20→18:39)
[2021-12-08] MEDS: QUEtiapine FUMARATE 50MG TAB PO SCH (21:02)
[2021-12-08] MEDS: RAMELTEON 8 MG TAB (ROZEREM) PO SCH (21:02)
[2021-12-08] MEDS: guaiFENesin 200 MG TAB PO PRN (21:02)
[2021-12-09] MEDS: traMADol 50 MG TAB PO PRN ×2 (04:10→16:23)
[2021-12-09 05:49] VITALS: BP 141/77
[2021-12-09] MEDS: metFORMIN (GLUCOPHAGE) 500MG TAB PO SCH (08:00)
[2021-12-09] MEDS: FLUoxetine 10 MG CAP PO SCH (09:59)
[2021-12-09] MEDS: ASPIRIN 81MG CHEW TABLET PO SCH (09:59)
[2021-12-09] MEDS: DICLOFENAC EPOLAMINE 1.3% PATCH TOP SCH ×2 (09:59→21:00)
[2021-12-09] MEDS: SODIUM CHLORIDE NASAL 0.65% SPRAY BTL (OCEAN) SCH ×3 (09:59→20:00)
[2021-12-09] MEDS: TAMSULOSIN 0.4 MG CAP PO SCH (09:59)
[2021-12-09] MEDS: FLUTICASONE PROP 0.05% NASAL SPRAY 16 GM (FLONASE) NARES SCH ×2 (09:59→20:00)
[2021-12-09] MEDS: QUEtiapine FUMARATE 50MG TAB PO SCH ×2 (09:59→20:00)
[2021-12-09] MEDS: ATORVASTATIN 20 MG TAB PO SCH (09:59)
[2021-12-09] MEDS: DOCUSATE SODIUM 100MG CAPSULE PO SCH ×2 (09:59→20:00)
[2021-12-09] MEDS: FUROSEMIDE 40 MG TAB PO SCH (09:59)
[2021-12-09] MEDS: guaiFENesin 200 MG TAB PO PRN (17:19)
[2021-12-09] MEDS: RAMELTEON 8 MG TAB (ROZEREM) PO SCH (20:00)
[2021-12-09 21:00] VITALS: BP 138/76
[2021-12-09] MEDS: oxyCODONE 5MG TAB PO PRN (21:36)
[2021-12-10] MEDS: guaiFENesin 200 MG TAB PO PRN (01:22)
[2021-12-10] MEDS: metFORMIN (GLUCOPHAGE) 500MG TAB PO SCH (07:58)
[2021-12-10] MEDS: FLUoxetine 10 MG CAP PO SCH ×2 (09:59→11:55)
[2021-12-10] MEDS: TAMSULOSIN 0.4 MG CAP PO SCH ×2 (09:59→11:55)
[2021-12-10] MEDS: FUROSEMIDE 40 MG TAB PO SCH ×2 (09:59→11:55)
[2021-12-10] MEDS: ASPIRIN 81MG CHEW TABLET PO SCH ×2 (09:59→11:56)
[2021-12-10] MEDS: DICLOFENAC EPOLAMINE 1.3% PATCH TOP SCH ×4 (09:59→21:00)
[2021-12-10] MEDS: QUEtiapine FUMARATE 50MG TAB PO SCH ×3 (09:59→20:12)
[2021-12-10] MEDS: FLUTICASONE PROP 0.05% NASAL SPRAY 16 GM (FLONASE) NARES SCH ×3 (09:59→20:13)
[2021-12-10] MEDS: DOCUSATE SODIUM 100MG CAPSULE PO SCH ×3 (09:59→20:12)
[2021-12-10] MEDS: ATORVASTATIN 20 MG TAB PO SCH ×2 (09:59→11:56)
[2021-12-10] MEDS: SODIUM CHLORIDE NASAL 0.65% SPRAY BTL (OCEAN) SCH ×4 (09:59→20:13)
[2021-12-10] MEDS: RAMELTEON 8 MG TAB (ROZEREM) PO SCH (20:12)
[2021-12-11] MEDS: traMADol 50 MG TAB PO PRN (00:15)
[2021-12-11 07:10] VITALS: BP 142/82
[2021-12-11] MEDS: metFORMIN (GLUCOPHAGE) 500MG TAB PO SCH (08:00)
[2021-12-11] MEDS: TAMSULOSIN 0.4 MG CAP PO SCH (09:00)
[2021-12-11] MEDS: FUROSEMIDE 40 MG TAB PO SCH (09:00)
[2021-12-11] MEDS: DOCUSATE SODIUM 100MG CAPSULE PO SCH ×2 (09:00→20:07)
[2021-12-11] MEDS: SODIUM CHLORIDE NASAL 0.65% SPRAY BTL (OCEAN) SCH ×3 (09:00→20:10)
[2021-12-11] MEDS: ATORVASTATIN 20 MG TAB PO SCH (09:00)
[2021-12-11] MEDS: QUEtiapine FUMARATE 50MG TAB PO SCH ×2 (09:00→20:07)
[2021-12-11] MEDS: ASPIRIN 81MG CHEW TABLET PO SCH (09:00)
[2021-12-11] MEDS: DICLOFENAC EPOLAMINE 1.3% PATCH TOP SCH ×3 (09:00→20:20)
[2021-12-11] MEDS: FLUoxetine 10 MG CAP PO SCH (09:00)
[2021-12-11] MEDS: FLUTICASONE PROP 0.05% NASAL SPRAY 16 GM (FLONASE) NARES SCH ×2 (09:00→20:10)
[2021-12-11] MEDS: oxyCODONE 5MG TAB PO PRN (16:53)
[2021-12-11] MEDS: RAMELTEON 8 MG TAB (ROZEREM) PO SCH (20:07)
[2021-12-12 05:49] VITALS: BP 128/77
[2021-12-12] MEDS: metFORMIN (GLUCOPHAGE) 500MG TAB PO SCH (08:00)
[2021-12-12] MEDS: TAMSULOSIN 0.4 MG CAP PO SCH (09:00)
[2021-12-12] MEDS: FLUoxetine 10 MG CAP PO SCH (09:00)
[2021-12-12] MEDS: FLUTICASONE PROP 0.05% NASAL SPRAY 16 GM (FLONASE) NARES SCH ×2 (09:00→20:27)
[2021-12-12] MEDS: QUEtiapine FUMARATE 50MG TAB PO SCH ×2 (09:00→20:27)
[2021-12-12] MEDS: DICLOFENAC EPOLAMINE 1.3% PATCH TOP SCH ×2 (09:00→20:28)
[2021-12-12] MEDS: DOCUSATE SODIUM 100MG CAPSULE PO SCH ×2 (09:00→20:26)
[2021-12-12] MEDS: ASPIRIN 81MG CHEW TABLET PO SCH (09:00)
[2021-12-12] MEDS: SODIUM CHLORIDE NASAL 0.65% SPRAY BTL (OCEAN) SCH ×3 (09:00→20:27)
[2021-12-12] MEDS: FUROSEMIDE 40 MG TAB PO SCH (09:00)
[2021-12-12] MEDS: ATORVASTATIN 20 MG TAB PO SCH (09:00)
[2021-12-12] MEDS: oxyCODONE 5MG TAB PO PRN (16:11)
[2021-12-12] MEDS: guaiFENesin 200 MG TAB PO PRN (20:25)
[2021-12-12] MEDS: RAMELTEON 8 MG TAB (ROZEREM) PO SCH (20:27)
[2021-12-12] MEDS: traMADol 50 MG TAB PO PRN (22:49)
[2021-12-13 06:00] VITALS: BP 147/81
[2021-12-13] MEDS: metFORMIN (GLUCOPHAGE) 500MG TAB PO SCH (07:29)
[2021-12-13] MEDS: FUROSEMIDE 40 MG TAB PO SCH (08:31)
[2021-12-13] MEDS: DOCUSATE SODIUM 100MG CAPSULE PO SCH ×2 (08:31→20:16)
[2021-12-13] MEDS: ATORVASTATIN 20 MG TAB PO SCH (08:31)
[2021-12-13] MEDS: FLUoxetine 10 MG CAP PO SCH (08:31)
[2021-12-13] MEDS: ASPIRIN 81MG CHEW TABLET PO SCH (08:31)
[2021-12-13] MEDS: TAMSULOSIN 0.4 MG CAP PO SCH (08:31)
[2021-12-13] MEDS: DICLOFENAC EPOLAMINE 1.3% PATCH TOP SCH ×2 (08:32→20:17)
[2021-12-13] MEDS: SODIUM CHLORIDE NASAL 0.65% SPRAY BTL (OCEAN) SCH ×3 (08:32→20:17)
[2021-12-13] MEDS: QUEtiapine FUMARATE 50MG TAB PO SCH ×2 (08:32→20:16)
[2021-12-13] MEDS: FLUTICASONE PROP 0.05% NASAL SPRAY 16 GM (FLONASE) NARES SCH ×2 (08:32→20:17)
[2021-12-13] MEDS: guaiFENesin 200 MG TAB PO PRN (18:51)
[2021-12-13] MEDS: oxyCODONE 5MG TAB PO PRN (18:51)
[2021-12-13] MEDS: RAMELTEON 8 MG TAB (ROZEREM) PO SCH (20:16)
[2021-12-13] MEDS: traMADol 50 MG TAB PO PRN (23:15)
[2021-12-14 06:00] VITALS: BP 147/87
[2021-12-14] MEDS: DICLOFENAC EPOLAMINE 1.3% PATCH TOP SCH ×2 (08:45→20:08)
[2021-12-14] MEDS: FLUoxetine 10 MG CAP PO SCH (08:46)
[2021-12-14] MEDS: ATORVASTATIN 20 MG TAB PO SCH (08:46)
[2021-12-14] MEDS: ASPIRIN 81MG CHEW TABLET PO SCH (08:46)
[2021-12-14] MEDS: QUEtiapine FUMARATE 50MG TAB PO SCH ×2 (08:47→20:07)
[2021-12-14] MEDS: metFORMIN (GLUCOPHAGE) 500MG TAB PO SCH (08:47)
[2021-12-14] MEDS: DOCUSATE SODIUM 100MG CAPSULE PO SCH ×2 (08:48→20:06)
[2021-12-14] MEDS: TAMSULOSIN 0.4 MG CAP PO SCH (08:48)
[2021-12-14] MEDS: FUROSEMIDE 40 MG TAB PO SCH (08:48)
[2021-12-14] MEDS: FLUTICASONE PROP 0.05% NASAL SPRAY 16 GM (FLONASE) NARES SCH ×2 (08:49→20:07)
[2021-12-14] MEDS: SODIUM CHLORIDE NASAL 0.65% SPRAY BTL (OCEAN) SCH ×3 (08:49→20:08)
[2021-12-14] MEDS: SENNA 8.6 MG TAB (SENOKOT) PO PRN (10:15)
[2021-12-14] MEDS: oxyCODONE 5MG TAB PO PRN ×2 (11:54→22:06)
[2021-12-14] MEDS: RAMELTEON 8 MG TAB (ROZEREM) PO SCH (20:07)
[2021-12-15] MEDS: oxyCODONE 5MG TAB PO PRN ×2 (04:25→18:12)
[2021-12-15 06:00] VITALS: BP 118/81
[2021-12-15] MEDS: CALCIUM CARBONATE 500 MG CHEW U/D PO PRN (07:36)
[2021-12-15] MEDS: DOCUSATE SODIUM 100MG CAPSULE PO SCH ×2 (07:36→20:06)
[2021-12-15] MEDS: ATORVASTATIN 20 MG TAB PO SCH (07:37)
[2021-12-15] MEDS: metFORMIN (GLUCOPHAGE) 500MG TAB PO SCH (07:37)
[2021-12-15] MEDS: ASPIRIN 81MG CHEW TABLET PO SCH (07:37)
[2021-12-15] MEDS: FUROSEMIDE 40 MG TAB PO SCH (07:38)
[2021-12-15] MEDS: FLUoxetine 10 MG CAP PO SCH (07:38)
[2021-12-15] MEDS: QUEtiapine FUMARATE 50MG TAB PO SCH ×2 (07:38→20:06)
[2021-12-15] MEDS: TAMSULOSIN 0.4 MG CAP PO SCH (07:38)
[2021-12-15] MEDS: DICLOFENAC EPOLAMINE 1.3% PATCH TOP SCH ×2 (07:39→20:06)
[2021-12-15] MEDS: SODIUM CHLORIDE NASAL 0.65% SPRAY BTL (OCEAN) SCH ×3 (07:39→20:06)
[2021-12-15] MEDS: FLUTICASONE PROP 0.05% NASAL SPRAY 16 GM (FLONASE) NARES SCH ×2 (07:39→20:06)
[2021-12-15] MEDS: RAMELTEON 8 MG TAB (ROZEREM) PO SCH (20:06)
[2021-12-16] MEDS: oxyCODONE 5MG TAB PO PRN ×2 (03:30→10:15)
[2021-12-16 05:50] VITALS: BP 121/78
[2021-12-16] MEDS: DICLOFENAC EPOLAMINE 1.3% PATCH TOP SCH ×2 (09:00→20:05)
[2021-12-16] MEDS: TAMSULOSIN 0.4 MG CAP PO SCH (10:14)
[2021-12-16] MEDS: FLUoxetine 10 MG CAP PO SCH (10:14)
[2021-12-16] MEDS: CALCIUM CARBONATE 500 MG CHEW U/D PO PRN (10:15)
[2021-12-16] MEDS: ATORVASTATIN 20 MG TAB PO SCH (10:15)
[2021-12-16] MEDS: ASPIRIN 81MG CHEW TABLET PO SCH (10:15)
[2021-12-16] MEDS: QUEtiapine FUMARATE 50MG TAB PO SCH ×2 (10:15→20:05)
[2021-12-16] MEDS: DOCUSATE SODIUM 100MG CAPSULE PO SCH ×2 (10:15→20:05)
[2021-12-16] MEDS: FUROSEMIDE 40 MG TAB PO SCH (10:16)
[2021-12-16] MEDS: metFORMIN (GLUCOPHAGE) 500MG TAB PO SCH (10:17)
[2021-12-16] MEDS: SODIUM CHLORIDE NASAL 0.65% SPRAY BTL (OCEAN) SCH ×3 (10:18→20:05)
[2021-12-16] MEDS: FLUTICASONE PROP 0.05% NASAL SPRAY 16 GM (FLONASE) NARES SCH ×2 (10:18→20:05)
[2021-12-16] MEDS: traMADol 50 MG TAB PO PRN (17:09)
[2021-12-16] MEDS: RAMELTEON 8 MG TAB (ROZEREM) PO SCH (20:05)
[2021-12-17] MEDS: oxyCODONE 5MG TAB PO PRN ×2 (00:20→14:35)
[2021-12-17 05:35] VITALS: BP 122/65
[2021-12-17] MEDS: metFORMIN (GLUCOPHAGE) 500MG TAB PO SCH (07:05)
[2021-12-17] MEDS: FUROSEMIDE 40 MG TAB PO SCH (08:19)
[2021-12-17] MEDS: TAMSULOSIN 0.4 MG CAP PO SCH (08:19)
[2021-12-17] MEDS: ASPIRIN 81MG CHEW TABLET PO SCH (08:19)
[2021-12-17] MEDS: FLUoxetine 10 MG CAP PO SCH (08:19)
[2021-12-17] MEDS: ATORVASTATIN 20 MG TAB PO SCH (08:19)
[2021-12-17] MEDS: DOCUSATE SODIUM 100MG CAPSULE PO SCH ×2 (08:19→20:04)
[2021-12-17] MEDS: QUEtiapine FUMARATE 50MG TAB PO SCH ×2 (08:20→20:04)
[2021-12-17] MEDS: SODIUM CHLORIDE NASAL 0.65% SPRAY BTL (OCEAN) SCH ×3 (08:20→20:04)
[2021-12-17] MEDS: FLUTICASONE PROP 0.05% NASAL SPRAY 16 GM (FLONASE) NARES SCH ×2 (08:20→20:04)
[2021-12-17] MEDS: DICLOFENAC EPOLAMINE 1.3% PATCH TOP SCH ×2 (08:20→20:04)
[2021-12-17] MEDS: CALCIUM CARBONATE 500 MG CHEW U/D PO PRN (16:12)
[2021-12-17] MEDS: RAMELTEON 8 MG TAB (ROZEREM) PO SCH (20:04)
[2021-12-17] MEDS: guaiFENesin 200 MG TAB PO PRN (20:04)
[2021-12-18 05:36] VITALS: BP 135/78
[2021-12-18] MEDS: metFORMIN (GLUCOPHAGE) 500MG TAB PO SCH (11:00)
[2021-12-18] MEDS: DOCUSATE SODIUM 100MG CAPSULE PO SCH ×2 (11:00→20:30)
[2021-12-18] MEDS: ASPIRIN 81MG CHEW TABLET PO SCH (11:00)
[2021-12-18] MEDS: TAMSULOSIN 0.4 MG CAP PO SCH (11:01)
[2021-12-18] MEDS: ATORVASTATIN 20 MG TAB PO SCH (11:01)
[2021-12-18] MEDS: FUROSEMIDE 40 MG TAB PO SCH (11:01)
[2021-12-18] MEDS: DICLOFENAC EPOLAMINE 1.3% PATCH TOP SCH ×2 (11:02→20:31)
[2021-12-18] MEDS: FLUTICASONE PROP 0.05% NASAL SPRAY 16 GM (FLONASE) NARES SCH ×2 (11:02→20:29)
[2021-12-18] MEDS: SODIUM CHLORIDE NASAL 0.65% SPRAY BTL (OCEAN) SCH ×3 (11:02→20:29)
[2021-12-18] MEDS: FLUoxetine 10 MG CAP PO SCH (11:02)
[2021-12-18] MEDS: QUEtiapine FUMARATE 50MG TAB PO SCH ×2 (11:02→20:30)
[2021-12-18] MEDS: oxyCODONE 5MG TAB PO PRN ×2 (13:22→20:29)
[2021-12-18] MEDS: guaiFENesin 200 MG TAB PO PRN (20:28)
[2021-12-18] MEDS: RAMELTEON 8 MG TAB (ROZEREM) PO SCH (20:28)
[2021-12-19] MEDS: oxyCODONE 5MG TAB PO PRN (05:03)
[2021-12-19 05:04] VITALS: BP 154/80
[2021-12-19] MEDS: metFORMIN (GLUCOPHAGE) 500MG TAB PO SCH (10:59)
[2021-12-19] MEDS: TAMSULOSIN 0.4 MG CAP PO SCH (11:13)
[2021-12-19] MEDS: QUEtiapine FUMARATE 50MG TAB PO SCH ×2 (11:16→20:09)
[2021-12-19] MEDS: FUROSEMIDE 40 MG TAB PO SCH (11:16)
[2021-12-19] MEDS: ATORVASTATIN 20 MG TAB PO SCH (11:17)
[2021-12-19] MEDS: DOCUSATE SODIUM 100MG CAPSULE PO SCH ×2 (11:17→20:09)
[2021-12-19] MEDS: ASPIRIN 81MG CHEW TABLET PO SCH (11:17)
[2021-12-19] MEDS: traMADol 50 MG TAB PO PRN ×2 (11:18→20:11)
[2021-12-19] MEDS: CALCIUM CARBONATE 500 MG CHEW U/D PO PRN (11:18)
[2021-12-19] MEDS: FLUTICASONE PROP 0.05% NASAL SPRAY 16 GM (FLONASE) NARES SCH ×2 (11:19→20:10)
[2021-12-19] MEDS: SODIUM CHLORIDE NASAL 0.65% SPRAY BTL (OCEAN) SCH ×3 (11:20→20:10)
[2021-12-19] MEDS: DICLOFENAC EPOLAMINE 1.3% PATCH TOP SCH ×2 (11:23→20:09)
[2021-12-19] MEDS: FLUoxetine 10 MG CAP PO SCH (11:27)
[2021-12-19] MEDS: RAMELTEON 8 MG TAB (ROZEREM) PO SCH (20:09)
[2021-12-20] MEDS: oxyCODONE 5MG TAB PO PRN ×3 (00:28→19:56)
[2021-12-20 05:52] VITALS: BP 142/78
[2021-12-20] MEDS: metFORMIN (GLUCOPHAGE) 500MG TAB PO SCH (08:27)
[2021-12-20] MEDS: FUROSEMIDE 40 MG TAB PO SCH (08:28)
[2021-12-20] MEDS: ATORVASTATIN 20 MG TAB PO SCH (08:28)
[2021-12-20] MEDS: TAMSULOSIN 0.4 MG CAP PO SCH (08:28)
[2021-12-20] MEDS: DOCUSATE SODIUM 100MG CAPSULE PO SCH ×2 (08:28→19:56)
[2021-12-20] MEDS: QUEtiapine FUMARATE 50MG TAB PO SCH ×2 (08:28→19:56)
[2021-12-20] MEDS: ASPIRIN 81MG CHEW TABLET PO SCH (08:28)
[2021-12-20] MEDS: FLUTICASONE PROP 0.05% NASAL SPRAY 16 GM (FLONASE) NARES SCH ×2 (08:29→19:56)
[2021-12-20] MEDS: SODIUM CHLORIDE NASAL 0.65% SPRAY BTL (OCEAN) SCH ×3 (08:29→19:57)
[2021-12-20] MEDS: DICLOFENAC EPOLAMINE 1.3% PATCH TOP SCH ×2 (08:30→19:57)
[2021-12-20] MEDS: FLUoxetine 10 MG CAP PO SCH (08:33)
[2021-12-20] MEDS: traMADol 50 MG TAB PO PRN (13:34)
[2021-12-20] MEDS: RAMELTEON 8 MG TAB (ROZEREM) PO SCH (19:56)
[2021-12-21] MEDS: oxyCODONE 5MG TAB PO PRN ×3 (02:41→20:59)
[2021-12-21] MEDS: guaiFENesin 200 MG TAB PO PRN ×2 (02:47→20:58)
[2021-12-21 06:00] VITALS: BP 138/77
[2021-12-21] MEDS: metFORMIN (GLUCOPHAGE) 500MG TAB PO SCH (06:42)
[2021-12-21] MEDS: QUEtiapine FUMARATE 50MG TAB PO SCH ×2 (07:54→20:58)
[2021-12-21] MEDS: DOCUSATE SODIUM 100MG CAPSULE PO SCH ×2 (07:55→20:58)
[2021-12-21] MEDS: ATORVASTATIN 20 MG TAB PO SCH (07:55)
[2021-12-21] MEDS: TAMSULOSIN 0.4 MG CAP PO SCH (07:55)
[2021-12-21] MEDS: ASPIRIN 81MG CHEW TABLET PO SCH (07:55)
[2021-12-21] MEDS: DICLOFENAC EPOLAMINE 1.3% PATCH TOP SCH ×2 (07:56→21:00)
[2021-12-21] MEDS: FUROSEMIDE 40 MG TAB PO SCH (07:56)
[2021-12-21] MEDS: SODIUM CHLORIDE NASAL 0.65% SPRAY BTL (OCEAN) SCH ×3 (07:56→21:00)
[2021-12-21] MEDS: FLUTICASONE PROP 0.05% NASAL SPRAY 16 GM (FLONASE) NARES SCH ×2 (07:56→21:00)
[2021-12-21] MEDS: FLUoxetine 10 MG CAP PO SCH (07:59)
[2021-12-21] MEDS: RAMELTEON 8 MG TAB (ROZEREM) PO SCH (20:58)
[2021-12-22] MEDS: metFORMIN (GLUCOPHAGE) 500MG TAB PO SCH (08:00)
[2021-12-22] MEDS: DICLOFENAC EPOLAMINE 1.3% PATCH TOP SCH ×2 (09:00→21:00)
[2021-12-22] MEDS: FLUTICASONE PROP 0.05% NASAL SPRAY 16 GM (FLONASE) NARES SCH ×2 (09:50→21:00)
[2021-12-22] MEDS: DOCUSATE SODIUM 100MG CAPSULE PO SCH ×2 (09:51→20:04)
[2021-12-22] MEDS: SODIUM CHLORIDE NASAL 0.65% SPRAY BTL (OCEAN) SCH ×3 (09:51→21:00)
[2021-12-22] MEDS: FUROSEMIDE 40 MG TAB PO SCH (09:51)
[2021-12-22] MEDS: ASPIRIN 81MG CHEW TABLET PO SCH (09:51)
[2021-12-22] MEDS: QUEtiapine FUMARATE 50MG TAB PO SCH ×2 (09:52→20:04)
[2021-12-22] MEDS: ATORVASTATIN 20 MG TAB PO SCH (09:52)
[2021-12-22] MEDS: TAMSULOSIN 0.4 MG CAP PO SCH (09:52)
[2021-12-22] MEDS: oxyCODONE 5MG TAB PO PRN ×2 (09:53→20:05)
[2021-12-22] MEDS: FLUoxetine 10 MG CAP PO SCH (10:10)
[2021-12-22] MEDS: RAMELTEON 8 MG TAB (ROZEREM) PO SCH (20:04)
[2021-12-22] MEDS: guaiFENesin 200 MG TAB PO PRN (20:04)
[2021-12-22] MEDS: traMADol 50 MG TAB PO PRN (22:12)
[2021-12-23] MEDS: guaiFENesin 200 MG TAB PO PRN ×4 (00:19→20:50)
[2021-12-23] MEDS: CEPACOL LOZENGE PO PRN (00:19)
[2021-12-23] MEDS: oxyCODONE 5MG TAB PO PRN ×2 (06:43→19:48)
[2021-12-23] MEDS: metFORMIN (GLUCOPHAGE) 500MG TAB PO SCH (08:00)
[2021-12-23] MEDS: DICLOFENAC EPOLAMINE 1.3% PATCH TOP SCH ×2 (09:00→22:10)
[2021-12-23] MEDS: ATORVASTATIN 20 MG TAB PO SCH (11:05)
[2021-12-23] MEDS: QUEtiapine FUMARATE 50MG TAB PO SCH ×2 (11:06→22:09)
[2021-12-23] MEDS: FUROSEMIDE 40 MG TAB PO SCH (11:07)
[2021-12-23] MEDS: TAMSULOSIN 0.4 MG CAP PO SCH (11:08)
[2021-12-23] MEDS: ASPIRIN 81MG CHEW TABLET PO SCH (11:08)
[2021-12-23] MEDS: DOCUSATE SODIUM 100MG CAPSULE PO SCH ×2 (11:08→22:09)
[2021-12-23] MEDS: FLUoxetine 10 MG CAP PO SCH (11:08)
[2021-12-23] MEDS: FLUTICASONE PROP 0.05% NASAL SPRAY 16 GM (FLONASE) NARES SCH ×2 (11:09→22:10)
[2021-12-23] MEDS: SODIUM CHLORIDE NASAL 0.65% SPRAY BTL (OCEAN) SCH ×3 (11:09→22:10)
[2021-12-23] MEDS: CHLORASEPTIC SPRAY MT PRN ×2 (15:57→19:48)
[2021-12-23] MEDS: RAMELTEON 8 MG TAB (ROZEREM) PO SCH (22:09)
[2021-12-24] MEDS: FUROSEMIDE 40 MG TAB PO SCH (09:00)
[2021-12-24] MEDS: DICLOFENAC EPOLAMINE 1.3% PATCH TOP SCH ×2 (09:00→20:02)
[2021-12-24] MEDS: DOCUSATE SODIUM 100MG CAPSULE PO SCH ×2 (09:00→20:00)
[2021-12-24 10:00] VITALS: BP 162/86
[2021-12-24] MEDS: TAMSULOSIN 0.4 MG CAP PO SCH (10:18)
[2021-12-24] MEDS: ASPIRIN 81MG CHEW TABLET PO SCH (10:18)
[2021-12-24] MEDS: FLUoxetine 10 MG CAP PO SCH (10:19)
[2021-12-24] MEDS: QUEtiapine FUMARATE 50MG TAB PO SCH ×2 (10:19→20:00)
[2021-12-24] MEDS: metFORMIN (GLUCOPHAGE) 500MG TAB PO SCH (10:19)
[2021-12-24] MEDS: FLUTICASONE PROP 0.05% NASAL SPRAY 16 GM (FLONASE) NARES SCH ×2 (10:19→20:00)
[2021-12-24] MEDS: SODIUM CHLORIDE NASAL 0.65% SPRAY BTL (OCEAN) SCH ×3 (10:19→20:00)
[2021-12-24] MEDS: ATORVASTATIN 20 MG TAB PO SCH (10:23)
[2021-12-24] MEDS: oxyCODONE 5MG TAB PO PRN (17:23)
[2021-12-24] MEDS: guaiFENesin 200 MG TAB PO PRN (19:58)
[2021-12-24] MEDS: RAMELTEON 8 MG TAB (ROZEREM) PO SCH (20:00)
[2021-12-25] MEDS: CEPACOL LOZENGE PO PRN (00:42)
[2021-12-25] MEDS: oxyCODONE 5MG TAB PO PRN ×2 (00:43→22:00)
[2021-12-25] MEDS: traMADol 50 MG TAB PO PRN ×2 (06:05→16:57)
[2021-12-25 06:41] VITALS: BP 124/75
[2021-12-25] MEDS: DOCUSATE SODIUM 100MG CAPSULE PO SCH ×2 (09:00→22:00)
[2021-12-25] MEDS: FUROSEMIDE 40 MG TAB PO SCH (12:05)
[2021-12-25] MEDS: metFORMIN (GLUCOPHAGE) 500MG TAB PO SCH (12:05)
[2021-12-25] MEDS: ASPIRIN 81MG CHEW TABLET PO SCH (12:05)
[2021-12-25] MEDS: TAMSULOSIN 0.4 MG CAP PO SCH (12:05)
[2021-12-25] MEDS: FLUoxetine 10 MG CAP PO SCH (12:06)
[2021-12-25] MEDS: ATORVASTATIN 20 MG TAB PO SCH (12:06)
[2021-12-25] MEDS: QUEtiapine FUMARATE 50MG TAB PO SCH ×2 (12:07→22:00)
[2021-12-25] MEDS: DICLOFENAC EPOLAMINE 1.3% PATCH TOP SCH ×2 (12:07→22:00)
[2021-12-25] MEDS: FLUTICASONE PROP 0.05% NASAL SPRAY 16 GM (FLONASE) NARES SCH ×2 (12:07→22:00)
[2021-12-25] MEDS: SODIUM CHLORIDE NASAL 0.65% SPRAY BTL (OCEAN) SCH ×3 (12:07→22:00)
[2021-12-25] MEDS: ACETAMINOPHEN TAB 650MG DOSE (2X325MG) PO PRN (16:25)
[2021-12-25] MEDS: guaiFENesin 200 MG TAB PO PRN (21:59)
[2021-12-25] MEDS: RAMELTEON 8 MG TAB (ROZEREM) PO SCH (22:00)
[2021-12-26 06:00] VITALS: BP 162/97
[2021-12-26] MEDS: ATORVASTATIN 20 MG TAB PO SCH (08:14)
[2021-12-26] MEDS: TAMSULOSIN 0.4 MG CAP PO SCH ×2 (08:15→09:00)
[2021-12-26] MEDS: FLUoxetine 10 MG CAP PO SCH ×2 (08:15→09:00)
[2021-12-26] MEDS: metFORMIN (GLUCOPHAGE) 500MG TAB PO SCH (08:15)
[2021-12-26] MEDS: ASPIRIN 81MG CHEW TABLET PO SCH (08:16)
[2021-12-26] MEDS: SODIUM CHLORIDE NASAL 0.65% SPRAY BTL (OCEAN) SCH ×3 (08:16→22:26)
[2021-12-26] MEDS: FLUTICASONE PROP 0.05% NASAL SPRAY 16 GM (FLONASE) NARES SCH ×2 (08:16→22:26)
[2021-12-26] MEDS: QUEtiapine FUMARATE 50MG TAB PO SCH ×3 (08:16→22:24)
[2021-12-26] MEDS: guaiFENesin 200 MG TAB PO PRN ×2 (08:18→17:46)
[2021-12-26] MEDS: oxyCODONE 5MG TAB PO PRN ×2 (08:19→16:43)
[2021-12-26] MEDS: DOCUSATE SODIUM 100MG CAPSULE PO SCH ×2 (08:21→20:11)
[2021-12-26] MEDS: DICLOFENAC EPOLAMINE 1.3% PATCH TOP SCH ×2 (08:21→21:00)
[2021-12-26] MEDS: FUROSEMIDE 40 MG TAB PO SCH (08:21)
[2021-12-26] MEDS: CALCIUM CARBONATE 500 MG CHEW U/D PO PRN (20:14)
[2021-12-26] MEDS: RAMELTEON 8 MG TAB (ROZEREM) PO SCH ×2 (21:00→22:24)
[2021-12-27] MEDS: TAMSULOSIN 0.4 MG CAP PO SCH (09:00)
[2021-12-27] MEDS: FUROSEMIDE 40 MG TAB PO SCH (09:00)
[2021-12-27] MEDS: DOCUSATE SODIUM 100MG CAPSULE PO SCH ×2 (09:00→19:54)
[2021-12-27] MEDS: DICLOFENAC EPOLAMINE 1.3% PATCH TOP SCH ×2 (09:00→20:54)
[2021-12-27] MEDS: FLUoxetine 10 MG CAP PO SCH (09:03)
[2021-12-27] MEDS: ATORVASTATIN 20 MG TAB PO SCH (09:03)
[2021-12-27] MEDS: metFORMIN (GLUCOPHAGE) 500MG TAB PO SCH (09:03)
[2021-12-27] MEDS: ASPIRIN 81MG CHEW TABLET PO SCH (09:03)
[2021-12-27] MEDS: QUEtiapine FUMARATE 50MG TAB PO SCH ×2 (09:04→20:53)
[2021-12-27] MEDS: FLUTICASONE PROP 0.05% NASAL SPRAY 16 GM (FLONASE) NARES SCH ×2 (09:04→20:54)
[2021-12-27] MEDS: SODIUM CHLORIDE NASAL 0.65% SPRAY BTL (OCEAN) SCH ×3 (09:04→20:54)
[2021-12-27] MEDS: oxyCODONE 5MG TAB PO PRN ×2 (14:22→22:45)
[2021-12-27] MEDS: guaiFENesin 200 MG TAB PO PRN (14:22)
[2021-12-27] MEDS: traMADol 50 MG TAB PO PRN (19:55)
[2021-12-27] MEDS: RAMELTEON 8 MG TAB (ROZEREM) PO SCH (20:53)
[2021-12-28] MEDS: carisoprodoL 350 MG TAB PO PRN (01:09)
[2021-12-28] MEDS: oxyCODONE 5MG TAB PO PRN ×2 (11:26→18:53)
[2021-12-28] MEDS: guaiFENesin 200 MG TAB PO PRN ×2 (11:26→18:53)
[2021-12-28] MEDS: DOCUSATE SODIUM 100MG CAPSULE PO SCH ×2 (11:45→21:12)
[2021-12-28] MEDS: ASPIRIN 81MG CHEW TABLET PO SCH (11:45)
[2021-12-28] MEDS: metFORMIN (GLUCOPHAGE) 500MG TAB PO SCH (11:45)
[2021-12-28] MEDS: TAMSULOSIN 0.4 MG CAP PO SCH (11:45)
[2021-12-28] MEDS: FLUoxetine 10 MG CAP PO SCH (11:46)
[2021-12-28] MEDS: ATORVASTATIN 20 MG TAB PO SCH (11:46)
[2021-12-28] MEDS: FUROSEMIDE 40 MG TAB PO SCH (11:46)
[2021-12-28] MEDS: FLUTICASONE PROP 0.05% NASAL SPRAY 16 GM (FLONASE) NARES SCH ×2 (11:47→21:12)
[2021-12-28] MEDS: DICLOFENAC EPOLAMINE 1.3% PATCH TOP SCH ×2 (11:47→21:00)
[2021-12-28] MEDS: SODIUM CHLORIDE NASAL 0.65% SPRAY BTL (OCEAN) SCH ×3 (11:47→21:12)
[2021-12-28] MEDS: QUEtiapine FUMARATE 50MG TAB PO SCH ×2 (11:47→21:12)
[2021-12-28 17:46] VITALS: BP 138/88
[2021-12-28] MEDS: SENNA 8.6 MG TAB (SENOKOT) PO PRN (18:31)
[2021-12-28] MEDS: MIRALAX *UNIT DOSE* 17GM PACKET PO PRN (18:31)
[2021-12-28] MEDS: RAMELTEON 8 MG TAB (ROZEREM) PO SCH (21:12)
[2021-12-29] MEDS: oxyCODONE 5MG TAB PO PRN ×2 (01:12→16:57)
[2021-12-29] MEDS: traMADol 50 MG TAB PO PRN (03:16)
[2021-12-29 06:00] VITALS: BP 116/65
[2021-12-29] MEDS: DICLOFENAC EPOLAMINE 1.3% PATCH TOP SCH ×2 (07:52→21:00)
[2021-12-29] MEDS: metFORMIN (GLUCOPHAGE) 500MG TAB PO SCH (07:52)
[2021-12-29] MEDS: ATORVASTATIN 20 MG TAB PO SCH (08:24)
[2021-12-29] MEDS: SODIUM CHLORIDE NASAL 0.65% SPRAY BTL (OCEAN) SCH ×3 (08:24→21:00)
[2021-12-29] MEDS: FLUTICASONE PROP 0.05% NASAL SPRAY 16 GM (FLONASE) NARES SCH ×2 (08:24→21:00)
[2021-12-29] MEDS: ASPIRIN 81MG CHEW TABLET PO SCH (08:25)
[2021-12-29] MEDS: FUROSEMIDE 40 MG TAB PO SCH (08:25)
[2021-12-29] MEDS: DOCUSATE SODIUM 100MG CAPSULE PO SCH ×2 (08:25→21:00)
[2021-12-29] MEDS: QUEtiapine FUMARATE 50MG TAB PO SCH ×2 (08:25→21:00)
[2021-12-29] MEDS: FLUoxetine 10 MG CAP PO SCH (08:25)
[2021-12-29] MEDS: TAMSULOSIN 0.4 MG CAP PO SCH (08:25)
[2021-12-29] MEDS: RAMELTEON 8 MG TAB (ROZEREM) PO SCH (21:00)
[2021-12-30] MEDS: traMADol 50 MG TAB PO PRN ×2 (03:25→23:30)
[2021-12-30] MEDS: guaiFENesin 200 MG TAB PO PRN ×2 (04:03→19:59)
[2021-12-30 06:00] VITALS: BP 130/75
[2021-12-30] MEDS: DICLOFENAC EPOLAMINE 1.3% PATCH TOP SCH ×2 (07:52→20:04)
[2021-12-30] MEDS: ATORVASTATIN 20 MG TAB PO SCH (08:00)
[2021-12-30] MEDS: DOCUSATE SODIUM 100MG CAPSULE PO SCH ×2 (08:00→19:59)
[2021-12-30] MEDS: ASPIRIN 81MG CHEW TABLET PO SCH (08:00)
[2021-12-30] MEDS: QUEtiapine FUMARATE 50MG TAB PO SCH ×2 (08:01→20:01)
[2021-12-30] MEDS: TAMSULOSIN 0.4 MG CAP PO SCH (08:01)
[2021-12-30] MEDS: metFORMIN (GLUCOPHAGE) 500MG TAB PO SCH (08:01)
[2021-12-30] MEDS: SODIUM CHLORIDE NASAL 0.65% SPRAY BTL (OCEAN) SCH ×3 (08:03→20:01)
[2021-12-30] MEDS: FLUoxetine 10 MG CAP PO SCH (08:03)
[2021-12-30] MEDS: FUROSEMIDE 40 MG TAB PO SCH (08:03)
[2021-12-30] MEDS: FLUTICASONE PROP 0.05% NASAL SPRAY 16 GM (FLONASE) NARES SCH ×2 (08:03→20:01)
[2021-12-30] MEDS: oxyCODONE 5MG TAB PO PRN (20:01)
[2021-12-30] MEDS: RAMELTEON 8 MG TAB (ROZEREM) PO SCH (20:04)
[2021-12-31 06:00] VITALS: BP 140/84
[2021-12-31] MEDS: metFORMIN (GLUCOPHAGE) 500MG TAB PO SCH (10:16)
[2021-12-31] MEDS: ASPIRIN 81MG CHEW TABLET PO SCH ×2 (10:17→12:23)
[2021-12-31] MEDS: ATORVASTATIN 20 MG TAB PO SCH ×2 (10:17→12:25)
[2021-12-31] MEDS: DOCUSATE SODIUM 100MG CAPSULE PO SCH ×3 (10:17→19:34)
[2021-12-31] MEDS: TAMSULOSIN 0.4 MG CAP PO SCH ×2 (10:17→12:23)
[2021-12-31] MEDS: FUROSEMIDE 40 MG TAB PO SCH ×2 (10:17→12:24)
[2021-12-31] MEDS: QUEtiapine FUMARATE 50MG TAB PO SCH ×3 (10:18→19:35)
[2021-12-31] MEDS: SODIUM CHLORIDE NASAL 0.65% SPRAY BTL (OCEAN) SCH ×3 (10:18→19:35)
[2021-12-31] MEDS: FLUTICASONE PROP 0.05% NASAL SPRAY 16 GM (FLONASE) NARES SCH ×2 (10:18→19:35)
[2021-12-31] MEDS: FLUoxetine 10 MG CAP PO SCH ×2 (10:18→12:25)
[2021-12-31] MEDS: DICLOFENAC EPOLAMINE 1.3% PATCH TOP SCH ×2 (10:19→19:27)
[2021-12-31] MEDS: guaiFENesin 200 MG TAB PO PRN ×2 (14:11→19:35)
[2021-12-31] MEDS: oxyCODONE 5MG TAB PO PRN (14:12)
[2021-12-31] MEDS: RAMELTEON 8 MG TAB (ROZEREM) PO SCH (19:34)
[2021-12-31] MEDS: traMADol 50 MG TAB PO PRN (19:36)
[2022-01-01] MEDS: carisoprodoL 350 MG TAB PO PRN ×2 (00:30→15:30)
[2022-01-01] MEDS: oxyCODONE 5MG TAB PO PRN ×3 (00:31→20:25)
[2022-01-01] MEDS: traMADol 50 MG TAB PO PRN ×2 (04:57→22:47)
[2022-01-01 06:00] VITALS: BP 134/77
[2022-01-01] MEDS: metFORMIN (GLUCOPHAGE) 500MG TAB PO SCH (08:00)
[2022-01-01] MEDS: DICLOFENAC EPOLAMINE 1.3% PATCH TOP SCH ×2 (09:00→20:14)
[2022-01-01] MEDS: ASPIRIN 81MG CHEW TABLET PO SCH (09:40)
[2022-01-01] MEDS: DOCUSATE SODIUM 100MG CAPSULE PO SCH ×2 (09:40→20:24)
[2022-01-01] MEDS: ATORVASTATIN 20 MG TAB PO SCH (09:40)
[2022-01-01] MEDS: TAMSULOSIN 0.4 MG CAP PO SCH (09:40)
[2022-01-01] MEDS: QUEtiapine FUMARATE 50MG TAB PO SCH ×2 (09:41→20:24)
[2022-01-01] MEDS: FUROSEMIDE 40 MG TAB PO SCH (09:41)
[2022-01-01] MEDS: FLUTICASONE PROP 0.05% NASAL SPRAY 16 GM (FLONASE) NARES SCH ×2 (09:45→20:25)
[2022-01-01] MEDS: SODIUM CHLORIDE NASAL 0.65% SPRAY BTL (OCEAN) SCH ×3 (09:45→20:25)
[2022-01-01] MEDS: FLUoxetine 10 MG CAP PO SCH (09:52)
[2022-01-01] MEDS: RAMELTEON 8 MG TAB (ROZEREM) PO SCH (20:24)
[2022-01-01] MEDS: guaiFENesin 200 MG TAB PO PRN (20:24)
[2022-01-02 05:43] VITALS: BP 119/71
[2022-01-02] MEDS: ATORVASTATIN 20 MG TAB PO SCH (08:40)
[2022-01-02] MEDS: QUEtiapine FUMARATE 50MG TAB PO SCH ×2 (08:40→21:00)
[2022-01-02] MEDS: DOCUSATE SODIUM 100MG CAPSULE PO SCH ×2 (08:40→21:00)
[2022-01-02] MEDS: metFORMIN (GLUCOPHAGE) 500MG TAB PO SCH (08:40)
[2022-01-02] MEDS: ASPIRIN 81MG CHEW TABLET PO SCH (08:40)
[2022-01-02] MEDS: TAMSULOSIN 0.4 MG CAP PO SCH (08:40)
[2022-01-02] MEDS: FLUoxetine 10 MG CAP PO SCH (08:40)
[2022-01-02] MEDS: SODIUM CHLORIDE NASAL 0.65% SPRAY BTL (OCEAN) SCH ×3 (08:41→21:01)
[2022-01-02] MEDS: FUROSEMIDE 40 MG TAB PO SCH (08:41)
[2022-01-02] MEDS: FLUTICASONE PROP 0.05% NASAL SPRAY 16 GM (FLONASE) NARES SCH ×2 (08:41→21:01)
[2022-01-02] MEDS: DICLOFENAC EPOLAMINE 1.3% PATCH TOP SCH ×2 (08:45→21:00)
[2022-01-02 14:00] VITALS: BP 121/83
[2022-01-02] MEDS: carisoprodoL 350 MG TAB PO PRN (18:52)
[2022-01-02] MEDS: RAMELTEON 8 MG TAB (ROZEREM) PO SCH (21:00)
[2022-01-02] MEDS: guaiFENesin 200 MG TAB PO PRN (21:05)
[2022-01-03] MEDS: traMADol 50 MG TAB PO PRN (02:59)
[2022-01-03 06:13] VITALS: BP 124/77
[2022-01-03] MEDS: DICLOFENAC EPOLAMINE 1.3% PATCH TOP SCH ×2 (07:57→20:21)
[2022-01-03] MEDS: metFORMIN (GLUCOPHAGE) 500MG TAB PO SCH ×2 (08:00→08:11)
[2022-01-03] MEDS: ASPIRIN 81MG CHEW TABLET PO SCH ×2 (08:11→08:21)
[2022-01-03] MEDS: FLUoxetine 10 MG CAP PO SCH ×2 (08:11→08:21)
[2022-01-03] MEDS: DOCUSATE SODIUM 100MG CAPSULE PO SCH ×3 (08:11→20:20)
[2022-01-03] MEDS: ATORVASTATIN 20 MG TAB PO SCH ×2 (08:11→08:21)
[2022-01-03] MEDS: FUROSEMIDE 40 MG TAB PO SCH ×2 (08:12→08:21)
[2022-01-03] MEDS: SODIUM CHLORIDE NASAL 0.65% SPRAY BTL (OCEAN) SCH ×3 (08:12→20:20)
[2022-01-03] MEDS: FLUTICASONE PROP 0.05% NASAL SPRAY 16 GM (FLONASE) NARES SCH ×2 (08:12→20:20)
[2022-01-03] MEDS: TAMSULOSIN 0.4 MG CAP PO SCH ×2 (08:12→08:21)
[2022-01-03] MEDS: QUEtiapine FUMARATE 50MG TAB PO SCH ×3 (08:12→20:19)
[2022-01-03] MEDS: guaiFENesin 200 MG TAB PO PRN (18:02)
[2022-01-03] MEDS: oxyCODONE 5MG TAB PO PRN (18:02)
[2022-01-03] MEDS: RAMELTEON 8 MG TAB (ROZEREM) PO SCH (20:19)
[2022-01-04 04:48] VITALS: BP 150/95
[2022-01-04] MEDS: metFORMIN (GLUCOPHAGE) 500MG TAB PO SCH (08:00)
[2022-01-04] MEDS: DICLOFENAC EPOLAMINE 1.3% PATCH TOP SCH ×2 (09:00→21:00)
[2022-01-04] MEDS: FLUoxetine 10 MG CAP PO SCH ×2 (09:00→09:41)
[2022-01-04] MEDS: DOCUSATE SODIUM 100MG CAPSULE PO SCH ×3 (09:00→19:55)
[2022-01-04] MEDS: ASPIRIN 81MG CHEW TABLET PO SCH ×2 (09:00→09:36)
[2022-01-04] MEDS: ATORVASTATIN 20 MG TAB PO SCH ×2 (09:00→09:36)
[2022-01-04] MEDS: SODIUM CHLORIDE NASAL 0.65% SPRAY BTL (OCEAN) SCH ×3 (09:00→19:56)
[2022-01-04] MEDS: FUROSEMIDE 40 MG TAB PO SCH ×2 (09:00→09:36)
[2022-01-04] MEDS: TAMSULOSIN 0.4 MG CAP PO SCH ×2 (09:00→09:36)
[2022-01-04] MEDS: QUEtiapine FUMARATE 50MG TAB PO SCH ×3 (09:00→19:55)
[2022-01-04] MEDS: FLUTICASONE PROP 0.05% NASAL SPRAY 16 GM (FLONASE) NARES SCH ×2 (09:00→19:56)
[2022-01-04] MEDS: oxyCODONE 5MG TAB PO PRN (09:38)
[2022-01-04 10:14] LABS: APPEARANCE, URINE CLEAR (CLEAR); BACTERIA, URINE AUTO NEGATIVE (NEGATIVE); BILIRUBIN, URINE AUTO NEGATIVE (NEGATIVE); BLOOD, URINE BLOOD NEGATIVE (NEGATIVE); COLOR, URINE YELLOW (YELLOW); GLUCOSE, URINE (UA) AUTO 1+ mg/dL (NEGATIVE); KETONE, URINE AUTO NEGATIVE (NEGATIVE); LEUKOCYTE ESTERASE, URINE AUTO NEGATIVE (NEGATIVE); MUCUS, URINE SMALL (NEGATIVE); NITRITE, URINE AUTO NEGATIVE (NEGATIVE); PROTEIN, URINE AUTO NEGATIVE (NEGATIVE); RBC, URINE AUTO 0 /HPF (0-3); SPECIFIC GRAVITY URINE AUTO 1.021 (1.002-1.035); SQUAMOUS EPITHELIAL CELL UR AU 1 /HPF (0-6); UROBILINOGEN, URINE AUTO 0.2 mg/dL (0.0-2.0); WBC, URINE AUTO 0 /HPF (0-3)
[2022-01-04] MEDS: carisoprodoL 350 MG TAB PO PRN (12:24)
[2022-01-04] MEDS: traMADol 50 MG TAB PO PRN ×2 (12:24→19:56)
[2022-01-04] MEDS: RAMELTEON 8 MG TAB (ROZEREM) PO SCH (19:55)
[2022-01-04] MEDS: guaiFENesin 200 MG TAB PO PRN (19:55)
[2022-01-05] MEDS: carisoprodoL 350 MG TAB PO PRN ×2 (01:20→14:04)
[2022-01-05] MEDS: oxyCODONE 5MG TAB PO PRN (01:21)
[2022-01-05] MEDS: traMADol 50 MG TAB PO PRN ×2 (05:18→20:17)
[2022-01-05 06:00] VITALS: BP 112/65
[2022-01-05] MEDS: metFORMIN (GLUCOPHAGE) 500MG TAB PO SCH (08:00)
[2022-01-05] MEDS: DICLOFENAC EPOLAMINE 1.3% PATCH TOP SCH ×2 (09:00→21:00)
[2022-01-05] MEDS: ASPIRIN 81MG CHEW TABLET PO SCH (09:40)
[2022-01-05] MEDS: FUROSEMIDE 40 MG TAB PO SCH (09:40)
[2022-01-05] MEDS: ATORVASTATIN 20 MG TAB PO SCH (09:40)
[2022-01-05] MEDS: TAMSULOSIN 0.4 MG CAP PO SCH (09:40)
[2022-01-05] MEDS: DOCUSATE SODIUM 100MG CAPSULE PO SCH ×2 (09:40→20:16)
[2022-01-05] MEDS: QUEtiapine FUMARATE 50MG TAB PO SCH ×2 (09:40→20:16)
[2022-01-05] MEDS: FLUoxetine 10 MG CAP PO SCH (09:40)
[2022-01-05] MEDS: FLUTICASONE PROP 0.05% NASAL SPRAY 16 GM (FLONASE) NARES SCH ×2 (09:41→20:17)
[2022-01-05] MEDS: SODIUM CHLORIDE NASAL 0.65% SPRAY BTL (OCEAN) SCH ×3 (09:41→20:17)
[2022-01-05] MEDS: RAMELTEON 8 MG TAB (ROZEREM) PO SCH (20:16)
[2022-01-05] MEDS: guaiFENesin 200 MG TAB PO PRN (20:16)
[2022-01-06] MEDS: carisoprodoL 350 MG TAB PO PRN ×2 (01:19→09:29)
[2022-01-06] MEDS: oxyCODONE 5MG TAB PO PRN ×2 (01:20→11:57)
[2022-01-06] MEDS: traMADol 50 MG TAB PO PRN ×3 (04:26→22:37)
[2022-01-06 06:00] VITALS: BP 121/79
[2022-01-06] MEDS: DICLOFENAC EPOLAMINE 1.3% PATCH TOP SCH ×2 (09:00→20:04)
[2022-01-06] MEDS: ASPIRIN 81MG CHEW TABLET PO SCH (09:22)
[2022-01-06] MEDS: FLUoxetine 10 MG CAP PO SCH (09:22)
[2022-01-06] MEDS: DOCUSATE SODIUM 100MG CAPSULE PO SCH ×2 (09:22→20:02)
[2022-01-06] MEDS: ATORVASTATIN 20 MG TAB PO SCH (09:22)
[2022-01-06] MEDS: QUEtiapine FUMARATE 50MG TAB PO SCH ×2 (09:22→20:02)
[2022-01-06] MEDS: TAMSULOSIN 0.4 MG CAP PO SCH (09:22)
[2022-01-06] MEDS: SODIUM CHLORIDE NASAL 0.65% SPRAY BTL (OCEAN) SCH ×3 (09:23→20:03)
[2022-01-06] MEDS: FLUTICASONE PROP 0.05% NASAL SPRAY 16 GM (FLONASE) NARES SCH ×2 (09:23→20:03)
[2022-01-06] MEDS: FUROSEMIDE 40 MG TAB PO SCH (09:23)
[2022-01-06] MEDS: metFORMIN (GLUCOPHAGE) 500MG TAB PO SCH (09:51)
[2022-01-06] MEDS: CALCIUM CARBONATE 500 MG CHEW U/D PO PRN (11:55)
[2022-01-06] MEDS: RAMELTEON 8 MG TAB (ROZEREM) PO SCH (20:02)
[2022-01-06] MEDS: guaiFENesin 200 MG TAB PO PRN (20:02)
[2022-01-07 06:00] VITALS: BP 144/88
[2022-01-07] MEDS: SENNA 8.6 MG TAB (SENOKOT) PO PRN (06:27)
[2022-01-07] MEDS: traMADol 50 MG TAB PO PRN (06:27)
[2022-01-07] MEDS: metFORMIN (GLUCOPHAGE) 500MG TAB PO SCH (07:43)
[2022-01-07] MEDS: DICLOFENAC EPOLAMINE 1.3% PATCH TOP SCH ×2 (09:00→20:35)
[2022-01-07] MEDS: DOCUSATE SODIUM 100MG CAPSULE PO SCH ×2 (09:58→20:35)
[2022-01-07] MEDS: ATORVASTATIN 20 MG TAB PO SCH (09:59)
[2022-01-07] MEDS: TAMSULOSIN 0.4 MG CAP PO SCH (09:59)
[2022-01-07] MEDS: oxyCODONE 5MG TAB PO PRN (09:59)
[2022-01-07] MEDS: QUEtiapine FUMARATE 50MG TAB PO SCH ×2 (09:59→20:35)
[2022-01-07] MEDS: FLUoxetine 10 MG CAP PO SCH (09:59)
[2022-01-07] MEDS: FUROSEMIDE 40 MG TAB PO SCH (10:00)
[2022-01-07] MEDS: ASPIRIN 81MG CHEW TABLET PO SCH (10:00)
[2022-01-07] MEDS: FLUTICASONE PROP 0.05% NASAL SPRAY 16 GM (FLONASE) NARES SCH ×2 (10:01→20:34)
[2022-01-07] MEDS: SODIUM CHLORIDE NASAL 0.65% SPRAY BTL (OCEAN) SCH ×3 (10:01→20:34)
[2022-01-07] MEDS: guaiFENesin 200 MG TAB PO PRN (18:58)
[2022-01-07] MEDS: carisoprodoL 350 MG TAB PO PRN (18:58)
[2022-01-07] MEDS: RAMELTEON 8 MG TAB (ROZEREM) PO SCH (20:35)
[2022-01-08] MEDS: traMADol 50 MG TAB PO PRN ×2 (04:05→12:06)
[2022-01-08 06:00] VITALS: BP 147/82
[2022-01-08] MEDS: ASPIRIN 81MG CHEW TABLET PO SCH (08:04)
[2022-01-08] MEDS: ATORVASTATIN 20 MG TAB PO SCH (08:05)
[2022-01-08] MEDS: QUEtiapine FUMARATE 50MG TAB PO SCH ×2 (08:05→20:02)
[2022-01-08] MEDS: TAMSULOSIN 0.4 MG CAP PO SCH (08:05)
[2022-01-08] MEDS: FUROSEMIDE 40 MG TAB PO SCH (08:05)
[2022-01-08] MEDS: FLUoxetine 10 MG CAP PO SCH (08:05)
[2022-01-08] MEDS: DOCUSATE SODIUM 100MG CAPSULE PO SCH ×2 (08:05→20:02)
[2022-01-08] MEDS: metFORMIN (GLUCOPHAGE) 500MG TAB PO SCH (08:05)
[2022-01-08] MEDS: DICLOFENAC EPOLAMINE 1.3% PATCH TOP SCH ×2 (08:07→20:03)
[2022-01-08] MEDS: SODIUM CHLORIDE NASAL 0.65% SPRAY BTL (OCEAN) SCH ×2 (08:07→20:03)
[2022-01-08] MEDS: FLUTICASONE PROP 0.05% NASAL SPRAY 16 GM (FLONASE) NARES SCH ×2 (08:07→20:03)
[2022-01-08] MEDS: oxyCODONE 5MG TAB PO PRN ×2 (08:09→20:49)
[2022-01-08] MEDS: carisoprodoL 350 MG TAB PO PRN (11:44)
[2022-01-08] MEDS: CARBAMIDE PEROXIDE 6.5% OTIC SOLN 15ML AU SCH ×2 (14:09→20:03)
[2022-01-08] MEDS: RAMELTEON 8 MG TAB (ROZEREM) PO SCH (20:02)
[2022-01-09] MEDS: oxyCODONE 5MG TAB PO PRN ×2 (05:52→22:39)
[2022-01-09 07:57] VITALS: BP 141/87
[2022-01-09] MEDS: metFORMIN (GLUCOPHAGE) 500MG TAB PO SCH (08:00)
[2022-01-09] MEDS: ATORVASTATIN 20 MG TAB PO SCH (08:04)
[2022-01-09] MEDS: ASPIRIN 81MG CHEW TABLET PO SCH (08:04)
[2022-01-09] MEDS: TAMSULOSIN 0.4 MG CAP PO SCH (08:04)
[2022-01-09] MEDS: DOCUSATE SODIUM 100MG CAPSULE PO SCH ×2 (08:04→19:59)
[2022-01-09] MEDS: FUROSEMIDE 40 MG TAB PO SCH (08:04)
[2022-01-09] MEDS: QUEtiapine FUMARATE 50MG TAB PO SCH ×2 (08:05→19:59)
[2022-01-09] MEDS: CARBAMIDE PEROXIDE 6.5% OTIC SOLN 15ML AU SCH ×2 (08:05→20:00)
[2022-01-09] MEDS: DICLOFENAC EPOLAMINE 1.3% PATCH TOP SCH ×2 (08:05→19:58)
[2022-01-09] MEDS: FLUoxetine 10 MG CAP PO SCH (08:05)
[2022-01-09] MEDS: SODIUM CHLORIDE NASAL 0.65% SPRAY BTL (OCEAN) SCH ×2 (08:05→19:59)
[2022-01-09] MEDS: FLUTICASONE PROP 0.05% NASAL SPRAY 16 GM (FLONASE) NARES SCH ×2 (08:05→19:59)
[2022-01-09] MEDS: carisoprodoL 350 MG TAB PO PRN ×3 (15:39→22:21)
[2022-01-09] MEDS: traMADol 50 MG TAB PO PRN (18:55)
[2022-01-09] MEDS: SENNA 8.6 MG TAB (SENOKOT) PO PRN (18:55)
[2022-01-09] MEDS: guaiFENesin 200 MG TAB PO PRN (18:55)
[2022-01-09] MEDS: RAMELTEON 8 MG TAB (ROZEREM) PO SCH (19:58)
[2022-01-09 22:19] VITALS: BP 141/84
[2022-01-10 06:00] VITALS: BP 135/78
[2022-01-10] MEDS: metFORMIN (GLUCOPHAGE) 500MG TAB PO SCH (08:00)
[2022-01-10] MEDS: ASPIRIN 81MG CHEW TABLET PO SCH (08:11)
[2022-01-10] MEDS: QUEtiapine FUMARATE 50MG TAB PO SCH ×2 (08:11→19:59)
[2022-01-10] MEDS: FUROSEMIDE 40 MG TAB PO SCH (08:12)
[2022-01-10] MEDS: ATORVASTATIN 20 MG TAB PO SCH (08:12)
[2022-01-10] MEDS: TAMSULOSIN 0.4 MG CAP PO SCH (08:12)
[2022-01-10] MEDS: CARBAMIDE PEROXIDE 6.5% OTIC SOLN 15ML AU SCH ×2 (08:13→20:01)
[2022-01-10] MEDS: FLUTICASONE PROP 0.05% NASAL SPRAY 16 GM (FLONASE) NARES SCH ×2 (08:16→20:01)
[2022-01-10] MEDS: SODIUM CHLORIDE NASAL 0.65% SPRAY BTL (OCEAN) SCH ×2 (08:16→20:00)
[2022-01-10] MEDS: FLUoxetine 10 MG CAP PO SCH (08:16)
[2022-01-10] MEDS: DOCUSATE SODIUM 100MG CAPSULE PO SCH ×2 (08:18→19:59)
[2022-01-10] MEDS: DICLOFENAC EPOLAMINE 1.3% PATCH TOP SCH ×3 (08:18→20:01)
[2022-01-10] MEDS: RAMELTEON 8 MG TAB (ROZEREM) PO SCH (19:59)
[2022-01-10] MEDS: ACETAMINOPHEN TAB 650MG DOSE (2X325MG) PO PRN (20:00)
[2022-01-11] MEDS: traMADol 50 MG TAB PO PRN (02:12)
[2022-01-11 06:00] VITALS: BP 141/78
[2022-01-11] MEDS: metFORMIN (GLUCOPHAGE) 500MG TAB PO SCH (08:00)
[2022-01-11] MEDS: TAMSULOSIN 0.4 MG CAP PO SCH (09:00)
[2022-01-11] MEDS: QUEtiapine FUMARATE 50MG TAB PO SCH ×2 (09:00→21:00)
[2022-01-11] MEDS: FLUoxetine 10 MG CAP PO SCH (09:00)
[2022-01-11] MEDS: ASPIRIN 81MG CHEW TABLET PO SCH (09:00)
[2022-01-11] MEDS: DICLOFENAC EPOLAMINE 1.3% PATCH TOP SCH ×2 (09:00→21:00)
[2022-01-11] MEDS: FLUTICASONE PROP 0.05% NASAL SPRAY 16 GM (FLONASE) NARES SCH ×2 (09:00→21:00)
[2022-01-11] MEDS: CARBAMIDE PEROXIDE 6.5% OTIC SOLN 15ML AU SCH ×2 (09:00→21:00)
[2022-01-11] MEDS: FUROSEMIDE 40 MG TAB PO SCH (09:00)
[2022-01-11] MEDS: DOCUSATE SODIUM 100MG CAPSULE PO SCH ×2 (09:00→21:00)
[2022-01-11] MEDS: ATORVASTATIN 20 MG TAB PO SCH (09:00)
[2022-01-11] MEDS: SODIUM CHLORIDE NASAL 0.65% SPRAY BTL (OCEAN) SCH ×2 (09:00→21:00)
[2022-01-11] MEDS: RAMELTEON 8 MG TAB (ROZEREM) PO SCH (21:00)
[2022-01-12] MEDS: traMADol 50 MG TAB PO PRN ×2 (04:37→15:18)
[2022-01-12 06:00] VITALS: BP 152/84
[2022-01-12] MEDS: QUEtiapine FUMARATE 50MG TAB PO SCH ×2 (08:44→20:19)
[2022-01-12] MEDS: metFORMIN (GLUCOPHAGE) 500MG TAB PO SCH (08:44)
[2022-01-12] MEDS: ATORVASTATIN 20 MG TAB PO SCH (08:44)
[2022-01-12] MEDS: TAMSULOSIN 0.4 MG CAP PO SCH (08:44)
[2022-01-12] MEDS: ASPIRIN 81MG CHEW TABLET PO SCH (08:45)
[2022-01-12] MEDS: FLUoxetine 10 MG CAP PO SCH (08:45)
[2022-01-12] MEDS: DOCUSATE SODIUM 100MG CAPSULE PO SCH ×2 (08:45→20:18)
[2022-01-12] MEDS: FUROSEMIDE 40 MG TAB PO SCH (08:45)
[2022-01-12] MEDS: SODIUM CHLORIDE NASAL 0.65% SPRAY BTL (OCEAN) SCH ×2 (08:46→20:20)
[2022-01-12] MEDS: FLUTICASONE PROP 0.05% NASAL SPRAY 16 GM (FLONASE) NARES SCH ×2 (08:46→20:20)
[2022-01-12] MEDS: DICLOFENAC EPOLAMINE 1.3% PATCH TOP SCH ×2 (08:46→20:21)
[2022-01-12] MEDS: RAMELTEON 8 MG TAB (ROZEREM) PO SCH (20:18)
[2022-01-12] MEDS: carisoprodoL 350 MG TAB PO PRN (20:19)
[2022-01-13 06:00] VITALS: BP 136/84
[2022-01-13] MEDS: ATORVASTATIN 20 MG TAB PO SCH (10:06)
[2022-01-13] MEDS: ASPIRIN 81MG CHEW TABLET PO SCH (10:06)
[2022-01-13] MEDS: TAMSULOSIN 0.4 MG CAP PO SCH (10:06)
[2022-01-13] MEDS: FLUoxetine 10 MG CAP PO SCH (10:06)
[2022-01-13] MEDS: FLUTICASONE PROP 0.05% NASAL SPRAY 16 GM (FLONASE) NARES SCH ×2 (10:06→20:16)
[2022-01-13] MEDS: SODIUM CHLORIDE NASAL 0.65% SPRAY BTL (OCEAN) SCH ×2 (10:06→20:16)
[2022-01-13] MEDS: FUROSEMIDE 40 MG TAB PO SCH (10:07)
[2022-01-13] MEDS: QUEtiapine FUMARATE 50MG TAB PO SCH ×2 (10:07→20:16)
[2022-01-13] MEDS: DICLOFENAC EPOLAMINE 1.3% PATCH TOP SCH ×2 (10:08→20:17)
[2022-01-13] MEDS: metFORMIN (GLUCOPHAGE) 500MG TAB PO SCH (10:08)
[2022-01-13] MEDS: DOCUSATE SODIUM 100MG CAPSULE PO SCH ×2 (10:11→20:16)
[2022-01-13] MEDS: traMADol 50 MG TAB PO PRN (12:21)
[2022-01-13] MEDS: RAMELTEON 8 MG TAB (ROZEREM) PO SCH (20:16)
[2022-01-14] MEDS: traMADol 50 MG TAB PO PRN ×2 (01:50→11:48)
[2022-01-14 05:12] VITALS: BP 119/77
[2022-01-14] MEDS: SODIUM CHLORIDE NASAL 0.65% SPRAY BTL (OCEAN) SCH ×2 (07:49→20:38)
[2022-01-14] MEDS: FLUTICASONE PROP 0.05% NASAL SPRAY 16 GM (FLONASE) NARES SCH ×2 (07:49→20:39)
[2022-01-14] MEDS: QUEtiapine FUMARATE 50MG TAB PO SCH ×2 (07:50→20:38)
[2022-01-14] MEDS: ASPIRIN 81MG CHEW TABLET PO SCH (07:50)
[2022-01-14] MEDS: FLUoxetine 10 MG CAP PO SCH (07:50)
[2022-01-14] MEDS: DOCUSATE SODIUM 100MG CAPSULE PO SCH ×2 (07:50→20:38)
[2022-01-14] MEDS: FUROSEMIDE 40 MG TAB PO SCH (07:50)
[2022-01-14] MEDS: metFORMIN (GLUCOPHAGE) 500MG TAB PO SCH (07:50)
[2022-01-14] MEDS: TAMSULOSIN 0.4 MG CAP PO SCH (07:50)
[2022-01-14] MEDS: ATORVASTATIN 20 MG TAB PO SCH (07:51)
[2022-01-14] MEDS: DICLOFENAC EPOLAMINE 1.3% PATCH TOP SCH ×2 (07:51→20:39)
[2022-01-14] MEDS: RAMELTEON 8 MG TAB (ROZEREM) PO SCH (20:38)
[2022-01-15 06:00] VITALS: BP 136/78
[2022-01-15] MEDS: metFORMIN (GLUCOPHAGE) 500MG TAB PO SCH (07:51)
[2022-01-15] MEDS: FUROSEMIDE 40 MG TAB PO SCH (07:52)
[2022-01-15] MEDS: ASPIRIN 81MG CHEW TABLET PO SCH (07:52)
[2022-01-15] MEDS: DOCUSATE SODIUM 100MG CAPSULE PO SCH ×2 (07:52→19:46)
[2022-01-15] MEDS: TAMSULOSIN 0.4 MG CAP PO SCH (07:52)
[2022-01-15] MEDS: FLUoxetine 10 MG CAP PO SCH (07:53)
[2022-01-15] MEDS: ATORVASTATIN 20 MG TAB PO SCH (07:53)
[2022-01-15] MEDS: FLUTICASONE PROP 0.05% NASAL SPRAY 16 GM (FLONASE) NARES SCH ×2 (07:53→19:47)
[2022-01-15] MEDS: SODIUM CHLORIDE NASAL 0.65% SPRAY BTL (OCEAN) SCH ×2 (07:53→19:47)
[2022-01-15] MEDS: QUEtiapine FUMARATE 50MG TAB PO SCH ×2 (07:53→19:46)
[2022-01-15] MEDS: DICLOFENAC EPOLAMINE 1.3% PATCH TOP SCH ×2 (07:54→19:49)
[2022-01-15] MEDS: traMADol 50 MG TAB PO PRN ×2 (15:43→23:05)
[2022-01-15] MEDS: RAMELTEON 8 MG TAB (ROZEREM) PO SCH (19:46)
[2022-01-15] MEDS: carisoprodoL 350 MG TAB PO PRN (19:46)
[2022-01-15] MEDS: guaiFENesin 200 MG TAB PO PRN (19:46)
[2022-01-16] MEDS: carisoprodoL 350 MG TAB PO PRN (02:07)
[2022-01-16 06:00] VITALS: BP 133/81
[2022-01-16] MEDS: metFORMIN (GLUCOPHAGE) 500MG TAB PO SCH (08:00)
[2022-01-16] MEDS: FLUTICASONE PROP 0.05% NASAL SPRAY 16 GM (FLONASE) NARES SCH ×2 (09:00→20:52)
[2022-01-16] MEDS: ATORVASTATIN 20 MG TAB PO SCH ×2 (09:00→10:47)
[2022-01-16] MEDS: SODIUM CHLORIDE NASAL 0.65% SPRAY BTL (OCEAN) SCH ×2 (09:00→20:52)
[2022-01-16] MEDS: DICLOFENAC EPOLAMINE 1.3% PATCH TOP SCH ×3 (09:00→20:55)
[2022-01-16] MEDS: ASPIRIN 81MG CHEW TABLET PO SCH ×2 (09:00→10:47)
[2022-01-16] MEDS: FUROSEMIDE 40 MG TAB PO SCH ×2 (09:00→10:48)
[2022-01-16] MEDS: TAMSULOSIN 0.4 MG CAP PO SCH ×2 (09:00→10:47)
[2022-01-16] MEDS: QUEtiapine FUMARATE 50MG TAB PO SCH ×3 (09:00→20:51)
[2022-01-16] MEDS: DOCUSATE SODIUM 100MG CAPSULE PO SCH ×3 (09:00→20:51)
[2022-01-16] MEDS: FLUoxetine 10 MG CAP PO SCH ×2 (09:00→10:47)
[2022-01-16] MEDS: traMADol 50 MG TAB PO PRN ×3 (10:50→20:52)
[2022-01-16] MEDS: guaiFENesin 200 MG TAB PO PRN (10:54)
[2022-01-16] MEDS: RAMELTEON 8 MG TAB (ROZEREM) PO SCH (20:51)
[2022-01-17] MEDS: traMADol 50 MG TAB PO PRN ×3 (04:05→18:41)
[2022-01-17 04:10] VITALS: BP 118/69
[2022-01-17] MEDS: carisoprodoL 350 MG TAB PO PRN (05:34)
[2022-01-17] MEDS: DICLOFENAC EPOLAMINE 1.3% PATCH TOP SCH ×2 (09:00→19:42)
[2022-01-17] MEDS: ATORVASTATIN 20 MG TAB PO SCH (10:24)
[2022-01-17] MEDS: DOCUSATE SODIUM 100MG CAPSULE PO SCH ×2 (10:24→19:42)
[2022-01-17] MEDS: ASPIRIN 81MG CHEW TABLET PO SCH (10:25)
[2022-01-17] MEDS: FLUoxetine 10 MG CAP PO SCH (10:25)
[2022-01-17] MEDS: FUROSEMIDE 40 MG TAB PO SCH (10:25)
[2022-01-17] MEDS: guaiFENesin 200 MG TAB PO PRN ×2 (10:25→19:42)
[2022-01-17] MEDS: TAMSULOSIN 0.4 MG CAP PO SCH (10:25)
[2022-01-17] MEDS: QUEtiapine FUMARATE 50MG TAB PO SCH ×2 (10:26→19:41)
[2022-01-17] MEDS: SODIUM CHLORIDE NASAL 0.65% SPRAY BTL (OCEAN) SCH ×2 (10:28→19:41)
[2022-01-17] MEDS: FLUTICASONE PROP 0.05% NASAL SPRAY 16 GM (FLONASE) NARES SCH ×2 (10:28→19:41)
[2022-01-17] MEDS: metFORMIN (GLUCOPHAGE) 500MG TAB PO SCH (10:32)
[2022-01-17] MEDS: CALCIUM CARBONATE 500 MG CHEW U/D PO PRN (19:42)
[2022-01-17] MEDS: RAMELTEON 8 MG TAB (ROZEREM) PO SCH (19:42)
[2022-01-18] MEDS: carisoprodoL 350 MG TAB PO PRN ×2 (01:51→22:12)
[2022-01-18 06:00] VITALS: BP 128/77
[2022-01-18] MEDS: metFORMIN (GLUCOPHAGE) 500MG TAB PO SCH (08:00)
[2022-01-18] MEDS: ASPIRIN 81MG CHEW TABLET PO SCH (08:49)
[2022-01-18] MEDS: FLUoxetine 10 MG CAP PO SCH (08:49)
[2022-01-18] MEDS: ATORVASTATIN 20 MG TAB PO SCH (08:49)
[2022-01-18] MEDS: SENNA 8.6 MG TAB (SENOKOT) PO PRN (08:49)
[2022-01-18] MEDS: DOCUSATE SODIUM 100MG CAPSULE PO SCH ×2 (08:49→19:47)
[2022-01-18] MEDS: MIRALAX *UNIT DOSE* 17GM PACKET PO PRN (08:49)
[2022-01-18] MEDS: TAMSULOSIN 0.4 MG CAP PO SCH (08:49)
[2022-01-18] MEDS: guaiFENesin 200 MG TAB PO PRN (08:49)
[2022-01-18] MEDS: QUEtiapine FUMARATE 50MG TAB PO SCH ×2 (08:50→19:48)
[2022-01-18] MEDS: FUROSEMIDE 40 MG TAB PO SCH (08:50)
[2022-01-18] MEDS: FLUTICASONE PROP 0.05% NASAL SPRAY 16 GM (FLONASE) NARES SCH ×2 (08:51→19:48)
[2022-01-18] MEDS: traMADol 50 MG TAB PO PRN ×2 (08:51→19:48)
[2022-01-18] MEDS: SODIUM CHLORIDE NASAL 0.65% SPRAY BTL (OCEAN) SCH ×2 (08:51→19:48)
[2022-01-18] MEDS: DICLOFENAC EPOLAMINE 1.3% PATCH TOP SCH ×2 (08:51→19:48)
[2022-01-18] MEDS: RAMELTEON 8 MG TAB (ROZEREM) PO SCH (19:47)
[2022-01-19] MEDS: metFORMIN (GLUCOPHAGE) 500MG TAB PO SCH (08:11)
[2022-01-19] MEDS: ASPIRIN 81MG CHEW TABLET PO SCH (08:12)
[2022-01-19] MEDS: QUEtiapine FUMARATE 50MG TAB PO SCH ×2 (08:12→20:07)
[2022-01-19] MEDS: TAMSULOSIN 0.4 MG CAP PO SCH (08:12)
[2022-01-19] MEDS: FUROSEMIDE 40 MG TAB PO SCH (08:12)
[2022-01-19] MEDS: ATORVASTATIN 20 MG TAB PO SCH (08:12)
[2022-01-19] MEDS: DICLOFENAC EPOLAMINE 1.3% PATCH TOP SCH ×2 (08:13→20:07)
[2022-01-19] MEDS: DOCUSATE SODIUM 100MG CAPSULE PO SCH ×2 (08:13→20:06)
[2022-01-19] MEDS: SODIUM CHLORIDE NASAL 0.65% SPRAY BTL (OCEAN) SCH ×2 (08:14→20:08)
[2022-01-19] MEDS: FLUTICASONE PROP 0.05% NASAL SPRAY 16 GM (FLONASE) NARES SCH ×2 (08:14→20:07)
[2022-01-19] MEDS: FLUoxetine 10 MG CAP PO SCH (08:19)
[2022-01-19] MEDS: traMADol 50 MG TAB PO PRN ×2 (17:34→23:58)
[2022-01-19 19:35] LABS: BASO # 0.1 10^3/uL (0.0-0.2); BASO % 0.8 % (0.0-1.0); EOS # 0.2 10^3/uL (0.0-0.5); EOS % 2.7 % (0.0-3.0); HEMATOCRIT 40.8 % (42.0-52.0); HEMOGLOBIN 13.8 g/dl (13.5-17.5); LYMPH # 2.4 10^3/uL (1.5-5.0); LYMPH % 28.6 % (24.0-44.0); MEAN CORPUSCULAR HEMOGLOBIN 27.5 pg (27.0-33.0); MEAN CORPUSCULAR HGB CONC 33.8 g/dl (32.0-36.5); MEAN CORPUSCULAR VOLUME 81.3 fl (80.0-96.0); MONO # 0.7 10^3/uL (0.0-0.8); MONO % 7.7 % (2.0-8.0); NEUTROPHILS # 5.1 10^3/uL (1.5-8.5); PLATELET COUNT, AUTOMATED 271 10^3/uL (150-450); RED BLOOD COUNT 5.02 10^6/uL (4.30-6.10); WHITE BLOOD COUNT 8.4 10^3/uL (4.0-10.0)
[2022-01-19 19:59] LABS: CK-MB VALUE MASS 1.5 NG/ML (<3.6); CPK CREATINE PHOSPHOKINASE 91 U/L (39-308); MB/CK RELATIVE INDEX 1.65 (< OR =4)
[2022-01-19 20:07] LABS: BLOOD UREA NITROGEN 25 MG/DL (7-18); CARBON DIOXIDE LEVEL 26 MEQ/L (21-32); CHLORIDE LEVEL 101 MEQ/L (98-107); CREATININE FOR GFR 0.75 MG/DL (0.70-1.30); GLOMERULAR FILTRATION RATE > 60.0 (>42); GLUCOSE, FASTING 239 MG/DL (70-100); MAGNESIUM LEVEL 1.8 MG/DL (1.8-2.4); POTASSIUM SERUM 3.5 MEQ/L (3.5-5.1); SODIUM LEVEL 136 MEQ/L (136-145)
[2022-01-19] MEDS: RAMELTEON 8 MG TAB (ROZEREM) PO SCH (20:07)
[2022-01-19] MEDS: carisoprodoL 350 MG TAB PO PRN (20:07)
[2022-01-19] MEDS: guaiFENesin 200 MG TAB PO PRN (20:07)
[2022-01-19 21:52] VITALS: BP 123/92
[2022-01-19 22:00] VITALS: BP 113/68
[2022-01-20] MEDS: TAMSULOSIN 0.4 MG CAP PO SCH (08:05)
[2022-01-20] MEDS: FUROSEMIDE 40 MG TAB PO SCH (08:05)
[2022-01-20] MEDS: QUEtiapine FUMARATE 50MG TAB PO SCH ×2 (08:05→21:09)
[2022-01-20] MEDS: DOCUSATE SODIUM 100MG CAPSULE PO SCH ×2 (08:05→21:09)
[2022-01-20] MEDS: ASPIRIN 81MG CHEW TABLET PO SCH (08:06)
[2022-01-20] MEDS: metFORMIN (GLUCOPHAGE) 500MG TAB PO SCH (08:06)
[2022-01-20] MEDS: ATORVASTATIN 20 MG TAB PO SCH (08:06)
[2022-01-20] MEDS: traMADol 50 MG TAB PO PRN ×2 (08:07→18:29)
[2022-01-20] MEDS: FLUoxetine 10 MG CAP PO SCH (08:14)
[2022-01-20] MEDS: FLUTICASONE PROP 0.05% NASAL SPRAY 16 GM (FLONASE) NARES SCH ×2 (08:14→21:09)
[2022-01-20] MEDS: SODIUM CHLORIDE NASAL 0.65% SPRAY BTL (OCEAN) SCH ×2 (08:14→21:10)
[2022-01-20] MEDS: DICLOFENAC EPOLAMINE 1.3% PATCH TOP SCH ×2 (08:21→21:00)
[2022-01-20] MEDS: ACETAMINOPHEN TAB 650MG DOSE (2X325MG) PO PRN (16:47)
[2022-01-20 20:04] VITALS: BP 150/85
[2022-01-20] MEDS: NITROGLYCERIN 0.4MG SUBL TABLET SL PRN (20:21)
[2022-01-20] MEDS: RAMELTEON 8 MG TAB (ROZEREM) PO SCH (21:09)
[2022-01-21 06:00] VITALS: BP 121/70
[2022-01-21] MEDS: traMADol 50 MG TAB PO PRN ×3 (06:33→20:28)
[2022-01-21] MEDS: metFORMIN (GLUCOPHAGE) 500MG TAB PO SCH (08:27)
[2022-01-21] MEDS: TAMSULOSIN 0.4 MG CAP PO SCH (08:27)
[2022-01-21] MEDS: DOCUSATE SODIUM 100MG CAPSULE PO SCH ×2 (08:27→20:25)
[2022-01-21] MEDS: ASPIRIN 81MG CHEW TABLET PO SCH (08:27)
[2022-01-21] MEDS: QUEtiapine FUMARATE 50MG TAB PO SCH ×2 (08:28→20:25)
[2022-01-21] MEDS: FUROSEMIDE 40 MG TAB PO SCH (08:28)
[2022-01-21] MEDS: FLUoxetine 10 MG CAP PO SCH (08:28)
[2022-01-21] MEDS: ATORVASTATIN 20 MG TAB PO SCH (08:28)
[2022-01-21] MEDS: SODIUM CHLORIDE NASAL 0.65% SPRAY BTL (OCEAN) SCH ×2 (08:29→20:26)
[2022-01-21] MEDS: DICLOFENAC EPOLAMINE 1.3% PATCH TOP SCH ×3 (08:29→22:09)
[2022-01-21] MEDS: FLUTICASONE PROP 0.05% NASAL SPRAY 16 GM (FLONASE) NARES SCH ×2 (08:29→20:25)
[2022-01-21] MEDS: RAMELTEON 8 MG TAB (ROZEREM) PO SCH (20:25)
[2022-01-22] MEDS: metFORMIN (GLUCOPHAGE) 500MG TAB PO SCH (08:00)
[2022-01-22] MEDS: ASPIRIN 81MG CHEW TABLET PO SCH (08:47)
[2022-01-22] MEDS: DOCUSATE SODIUM 100MG CAPSULE PO SCH ×2 (08:47→20:28)
[2022-01-22] MEDS: FUROSEMIDE 40 MG TAB PO SCH (08:47)
[2022-01-22] MEDS: ATORVASTATIN 20 MG TAB PO SCH (08:47)
[2022-01-22] MEDS: TAMSULOSIN 0.4 MG CAP PO SCH (08:47)
[2022-01-22] MEDS: DICLOFENAC EPOLAMINE 1.3% PATCH TOP SCH ×2 (08:48→20:37)
[2022-01-22] MEDS: FLUTICASONE PROP 0.05% NASAL SPRAY 16 GM (FLONASE) NARES SCH ×2 (08:48→20:28)
[2022-01-22] MEDS: SODIUM CHLORIDE NASAL 0.65% SPRAY BTL (OCEAN) SCH ×2 (08:48→20:28)
[2022-01-22] MEDS: QUEtiapine FUMARATE 50MG TAB PO SCH ×2 (08:48→20:27)
[2022-01-22] MEDS: FLUoxetine 10 MG CAP PO SCH (08:48)
[2022-01-22] MEDS: traMADol 50 MG TAB PO PRN (16:47)
[2022-01-22] MEDS: CALCIUM CARBONATE 500 MG CHEW U/D PO PRN (19:38)
[2022-01-22] MEDS: RAMELTEON 8 MG TAB (ROZEREM) PO SCH (20:28)
[2022-01-22] MEDS: guaiFENesin 200 MG TAB PO PRN (21:19)
[2022-01-23] MEDS: traMADol 50 MG TAB PO PRN ×3 (01:37→19:40)
[2022-01-23] MEDS: FLUTICASONE PROP 0.05% NASAL SPRAY 16 GM (FLONASE) NARES SCH ×2 (08:54→20:07)
[2022-01-23] MEDS: SODIUM CHLORIDE NASAL 0.65% SPRAY BTL (OCEAN) SCH ×2 (08:54→20:07)
[2022-01-23] MEDS: QUEtiapine FUMARATE 50MG TAB PO SCH ×2 (08:55→20:07)
[2022-01-23] MEDS: metFORMIN (GLUCOPHAGE) 500MG TAB PO SCH (08:55)
[2022-01-23] MEDS: ASPIRIN 81MG CHEW TABLET PO SCH (08:55)
[2022-01-23] MEDS: TAMSULOSIN 0.4 MG CAP PO SCH (08:55)
[2022-01-23] MEDS: DOCUSATE SODIUM 100MG CAPSULE PO SCH ×2 (08:55→20:07)
[2022-01-23] MEDS: FUROSEMIDE 40 MG TAB PO SCH (08:55)
[2022-01-23] MEDS: DICLOFENAC EPOLAMINE 1.3% PATCH TOP SCH ×2 (08:56→20:07)
[2022-01-23] MEDS: FLUoxetine 10 MG CAP PO SCH (08:56)
[2022-01-23] MEDS: ATORVASTATIN 20 MG TAB PO SCH (08:56)
[2022-01-23] MEDS: carisoprodoL 350 MG TAB PO PRN (14:25)
[2022-01-23] MEDS: RAMELTEON 8 MG TAB (ROZEREM) PO SCH (20:07)
[2022-01-24] MEDS: traMADol 50 MG TAB PO PRN ×3 (02:37→19:59)
[2022-01-24 04:19] VITALS: BP 175/88
[2022-01-24 04:22] VITALS: BP 119/73
[2022-01-24] MEDS: metFORMIN (GLUCOPHAGE) 500MG TAB PO SCH (07:54)
[2022-01-24] MEDS: SODIUM CHLORIDE NASAL 0.65% SPRAY BTL (OCEAN) SCH ×2 (09:00→19:59)
[2022-01-24] MEDS: ATORVASTATIN 20 MG TAB PO SCH ×2 (09:00→11:25)
[2022-01-24] MEDS: DOCUSATE SODIUM 100MG CAPSULE PO SCH ×3 (09:00→19:58)
[2022-01-24] MEDS: QUEtiapine FUMARATE 50MG TAB PO SCH ×3 (09:00→19:58)
[2022-01-24] MEDS: FLUTICASONE PROP 0.05% NASAL SPRAY 16 GM (FLONASE) NARES SCH ×2 (09:00→19:59)
[2022-01-24] MEDS: FUROSEMIDE 40 MG TAB PO SCH ×2 (09:00→11:25)
[2022-01-24] MEDS: DICLOFENAC EPOLAMINE 1.3% PATCH TOP SCH ×2 (09:00→20:00)
[2022-01-24] MEDS: ASPIRIN 81MG CHEW TABLET PO SCH ×2 (09:00→11:25)
[2022-01-24] MEDS: TAMSULOSIN 0.4 MG CAP PO SCH ×2 (09:00→11:25)
[2022-01-24] MEDS: FLUoxetine 10 MG CAP PO SCH ×2 (09:00→11:25)
[2022-01-24] MEDS: RAMELTEON 8 MG TAB (ROZEREM) PO SCH (19:58)
[2022-01-25] MEDS: traMADol 50 MG TAB PO PRN ×3 (02:18→20:06)
[2022-01-25 04:52] VITALS: BP 141/78
[2022-01-25] MEDS: metFORMIN (GLUCOPHAGE) 500MG TAB PO SCH (07:38)
[2022-01-25] MEDS: FLUoxetine 10 MG CAP PO SCH (08:04)
[2022-01-25] MEDS: QUEtiapine FUMARATE 50MG TAB PO SCH ×2 (08:04→20:06)
[2022-01-25] MEDS: TAMSULOSIN 0.4 MG CAP PO SCH (08:04)
[2022-01-25] MEDS: ASPIRIN 81MG CHEW TABLET PO SCH (08:04)
[2022-01-25] MEDS: ATORVASTATIN 20 MG TAB PO SCH (08:04)
[2022-01-25] MEDS: DOCUSATE SODIUM 100MG CAPSULE PO SCH ×2 (08:04→20:06)
[2022-01-25] MEDS: FUROSEMIDE 40 MG TAB PO SCH (08:05)
[2022-01-25] MEDS: FLUTICASONE PROP 0.05% NASAL SPRAY 16 GM (FLONASE) NARES SCH ×2 (08:05→20:05)
[2022-01-25] MEDS: DICLOFENAC EPOLAMINE 1.3% PATCH TOP SCH ×2 (08:05→20:06)
[2022-01-25] MEDS: SODIUM CHLORIDE NASAL 0.65% SPRAY BTL (OCEAN) SCH ×2 (08:05→20:05)
[2022-01-25] MEDS: RAMELTEON 8 MG TAB (ROZEREM) PO SCH (20:06)
[2022-01-25] MEDS: ACETAMINOPHEN TAB 650MG DOSE (2X325MG) PO PRN (21:08)
[2022-01-26 06:00] VITALS: BP 140/77
[2022-01-26] MEDS: metFORMIN (GLUCOPHAGE) 500MG TAB PO SCH (07:53)
[2022-01-26] MEDS: DICLOFENAC EPOLAMINE 1.3% PATCH TOP SCH (09:00)
[2022-01-26] MEDS: QUEtiapine FUMARATE 50MG TAB PO SCH ×2 (09:47→20:20)
[2022-01-26] MEDS: FUROSEMIDE 40 MG TAB PO SCH (09:47)
[2022-01-26] MEDS: ATORVASTATIN 20 MG TAB PO SCH (09:47)
[2022-01-26] MEDS: ASPIRIN 81MG CHEW TABLET PO SCH (09:47)
[2022-01-26] MEDS: DOCUSATE SODIUM 100MG CAPSULE PO SCH ×2 (09:47→20:20)
[2022-01-26] MEDS: TAMSULOSIN 0.4 MG CAP PO SCH (09:47)
[2022-01-26] MEDS: SODIUM CHLORIDE NASAL 0.65% SPRAY BTL (OCEAN) SCH ×2 (09:48→20:21)
[2022-01-26] MEDS: FLUTICASONE PROP 0.05% NASAL SPRAY 16 GM (FLONASE) NARES SCH ×2 (09:48→20:21)
[2022-01-26] MEDS: carisoprodoL 350 MG TAB PO PRN (09:53)
[2022-01-26] MEDS: FLUoxetine 10 MG CAP PO SCH (09:53)
[2022-01-26] MEDS: traMADol 50 MG TAB PO PRN ×2 (12:12→20:20)
[2022-01-26] MEDS: RAMELTEON 8 MG TAB (ROZEREM) PO SCH (20:20)
[2022-01-27 06:00] VITALS: BP 124/65
[2022-01-27] MEDS: DOCUSATE SODIUM 100MG CAPSULE PO SCH ×2 (08:02→20:54)
[2022-01-27] MEDS: FUROSEMIDE 40 MG TAB PO SCH (08:02)
[2022-01-27] MEDS: ATORVASTATIN 20 MG TAB PO SCH (08:02)
[2022-01-27] MEDS: metFORMIN (GLUCOPHAGE) 500MG TAB PO SCH (08:02)
[2022-01-27] MEDS: ASPIRIN 81MG CHEW TABLET PO SCH (08:02)
[2022-01-27] MEDS: TAMSULOSIN 0.4 MG CAP PO SCH (08:02)
[2022-01-27] MEDS: FLUoxetine 10 MG CAP PO SCH (08:02)
[2022-01-27] MEDS: QUEtiapine FUMARATE 50MG TAB PO SCH ×2 (08:02→20:54)
[2022-01-27] MEDS: carisoprodoL 350 MG TAB PO PRN ×3 (08:03→18:53)
[2022-01-27] MEDS: SODIUM CHLORIDE NASAL 0.65% SPRAY BTL (OCEAN) SCH ×2 (08:04→20:55)
[2022-01-27] MEDS: FLUTICASONE PROP 0.05% NASAL SPRAY 16 GM (FLONASE) NARES SCH ×2 (08:04→20:55)
[2022-01-27] MEDS: LIDOCAINE 5% OINT 30GM TUBE TOP PRN ×3 (10:39→20:55)
[2022-01-27] MEDS: traMADol 50 MG TAB PO PRN ×2 (16:52→23:08)
[2022-01-27] MEDS: RAMELTEON 8 MG TAB (ROZEREM) PO SCH (20:54)
[2022-01-28] MEDS: carisoprodoL 350 MG TAB PO PRN (01:09)
[2022-01-28 06:00] VITALS: BP 121/70
[2022-01-28] MEDS: metFORMIN (GLUCOPHAGE) 500MG TAB PO SCH (07:44)
[2022-01-28] MEDS: SODIUM CHLORIDE NASAL 0.65% SPRAY BTL (OCEAN) SCH ×2 (08:10→20:29)
[2022-01-28] MEDS: ASPIRIN 81MG CHEW TABLET PO SCH (08:10)
[2022-01-28] MEDS: DOCUSATE SODIUM 100MG CAPSULE PO SCH ×2 (08:10→20:29)
[2022-01-28] MEDS: FLUTICASONE PROP 0.05% NASAL SPRAY 16 GM (FLONASE) NARES SCH ×2 (08:10→20:29)
[2022-01-28] MEDS: TAMSULOSIN 0.4 MG CAP PO SCH (08:11)
[2022-01-28] MEDS: QUEtiapine FUMARATE 50MG TAB PO SCH ×2 (08:11→20:29)
[2022-01-28] MEDS: ATORVASTATIN 20 MG TAB PO SCH (08:11)
[2022-01-28] MEDS: FUROSEMIDE 40 MG TAB PO SCH (08:11)
[2022-01-28] MEDS: FLUoxetine 10 MG CAP PO SCH (08:11)
[2022-01-28] MEDS: traMADol 50 MG TAB PO PRN ×2 (08:13→16:31)
[2022-01-28 14:00] VITALS: BP 142/88
[2022-01-28] MEDS: RAMELTEON 8 MG TAB (ROZEREM) PO SCH (20:29)
[2022-01-29] MEDS: traMADol 50 MG TAB PO PRN ×2 (03:27→15:18)
[2022-01-29 06:00] VITALS: BP 122/70
[2022-01-29] MEDS: ATORVASTATIN 20 MG TAB PO SCH (09:00)
[2022-01-29] MEDS: DOCUSATE SODIUM 100MG CAPSULE PO SCH ×2 (09:00→20:19)
[2022-01-29] MEDS: FUROSEMIDE 40 MG TAB PO SCH (09:00)
[2022-01-29] MEDS: FLUoxetine 10 MG CAP PO SCH (09:00)
[2022-01-29] MEDS: SODIUM CHLORIDE NASAL 0.65% SPRAY BTL (OCEAN) SCH ×2 (09:00→20:19)
[2022-01-29] MEDS: ASPIRIN 81MG CHEW TABLET PO SCH (09:00)
[2022-01-29] MEDS: QUEtiapine FUMARATE 50MG TAB PO SCH ×2 (09:00→20:19)
[2022-01-29] MEDS: FLUTICASONE PROP 0.05% NASAL SPRAY 16 GM (FLONASE) NARES SCH ×2 (09:00→20:19)
[2022-01-29] MEDS: TAMSULOSIN 0.4 MG CAP PO SCH (09:00)
[2022-01-29] MEDS: metFORMIN (GLUCOPHAGE) 500MG TAB PO SCH (09:40)
[2022-01-29] MEDS: ACETAMINOPHEN TAB 650MG DOSE (2X325MG) PO PRN (19:39)
[2022-01-29] MEDS: RAMELTEON 8 MG TAB (ROZEREM) PO SCH (20:19)
[2022-01-29] MEDS: carisoprodoL 350 MG TAB PO PRN (20:24)
[2022-01-30 06:00] VITALS: BP 124/85
[2022-01-30] MEDS: metFORMIN (GLUCOPHAGE) 500MG TAB PO SCH (08:00)
[2022-01-30] MEDS: ASPIRIN 81MG CHEW TABLET PO SCH (09:00)
[2022-01-30] MEDS: SODIUM CHLORIDE NASAL 0.65% SPRAY BTL (OCEAN) SCH ×2 (09:00→20:36)
[2022-01-30] MEDS: QUEtiapine FUMARATE 50MG TAB PO SCH ×3 (09:00→20:36)
[2022-01-30] MEDS: TAMSULOSIN 0.4 MG CAP PO SCH (09:00)
[2022-01-30] MEDS: FLUoxetine 10 MG CAP PO SCH (09:00)
[2022-01-30] MEDS: ATORVASTATIN 20 MG TAB PO SCH (09:00)
[2022-01-30] MEDS: FUROSEMIDE 40 MG TAB PO SCH (09:00)
[2022-01-30] MEDS: FLUTICASONE PROP 0.05% NASAL SPRAY 16 GM (FLONASE) NARES SCH ×2 (09:00→20:36)
[2022-01-30] MEDS: DOCUSATE SODIUM 100MG CAPSULE PO SCH ×2 (11:50→20:36)
[2022-01-30] MEDS: traMADol 50 MG TAB PO PRN ×2 (12:50→20:37)
[2022-01-30] MEDS: ACETAMINOPHEN TAB 650MG DOSE (2X325MG) PO PRN (13:44)
[2022-01-30] MEDS: RAMELTEON 8 MG TAB (ROZEREM) PO SCH (20:36)
[2022-01-31] MEDS: carisoprodoL 350 MG TAB PO PRN (01:25)
[2022-01-31] MEDS: ACETAMINOPHEN TAB 650MG DOSE (2X325MG) PO PRN ×2 (01:25→20:14)
[2022-01-31 05:55] VITALS: BP 153/86
[2022-01-31] MEDS: metFORMIN (GLUCOPHAGE) 500MG TAB PO SCH ×2 (08:00→11:00)
[2022-01-31] MEDS: ASPIRIN 81MG CHEW TABLET PO SCH ×2 (08:30→10:59)
[2022-01-31] MEDS: TAMSULOSIN 0.4 MG CAP PO SCH ×2 (08:30→11:00)
[2022-01-31] MEDS: DOCUSATE SODIUM 100MG CAPSULE PO SCH ×3 (08:30→20:14)
[2022-01-31] MEDS: ATORVASTATIN 20 MG TAB PO SCH ×2 (08:30→11:00)
[2022-01-31] MEDS: FUROSEMIDE 40 MG TAB PO SCH ×2 (08:30→11:01)
[2022-01-31] MEDS: FLUoxetine 10 MG CAP PO SCH ×2 (08:31→11:00)
[2022-01-31] MEDS: QUEtiapine FUMARATE 50MG TAB PO SCH ×3 (08:31→20:14)
[2022-01-31] MEDS: SODIUM CHLORIDE NASAL 0.65% SPRAY BTL (OCEAN) SCH ×3 (08:32→20:14)
[2022-01-31] MEDS: FLUTICASONE PROP 0.05% NASAL SPRAY 16 GM (FLONASE) NARES SCH ×3 (08:32→20:14)
[2022-01-31] MEDS: traMADol 50 MG TAB PO PRN ×3 (11:05→22:50)
[2022-01-31] MEDS: RAMELTEON 8 MG TAB (ROZEREM) PO SCH (20:14)
[2022-02-01 06:34] VITALS: BP 134/78
[2022-02-01] MEDS: SODIUM CHLORIDE NASAL 0.65% SPRAY BTL (OCEAN) SCH ×2 (09:00→20:12)
[2022-02-01] MEDS: ATORVASTATIN 20 MG TAB PO SCH (10:06)
[2022-02-01] MEDS: metFORMIN (GLUCOPHAGE) 500MG TAB PO SCH (10:06)
[2022-02-01] MEDS: DOCUSATE SODIUM 100MG CAPSULE PO SCH ×2 (10:06→20:10)
[2022-02-01] MEDS: QUEtiapine FUMARATE 50MG TAB PO SCH ×2 (10:07→20:10)
[2022-02-01] MEDS: FUROSEMIDE 40 MG TAB PO SCH (10:07)
[2022-02-01] MEDS: TAMSULOSIN 0.4 MG CAP PO SCH (10:07)
[2022-02-01] MEDS: ASPIRIN 81MG CHEW TABLET PO SCH (10:07)
[2022-02-01] MEDS: FLUoxetine 10 MG CAP PO SCH (10:08)
[2022-02-01] MEDS: traMADol 50 MG TAB PO PRN ×2 (10:08→20:11)
[2022-02-01] MEDS: FLUTICASONE PROP 0.05% NASAL SPRAY 16 GM (FLONASE) NARES SCH ×2 (10:11→20:11)
[2022-02-01] MEDS: carisoprodoL 350 MG TAB PO PRN ×2 (14:57→23:18)
[2022-02-01] MEDS: RAMELTEON 8 MG TAB (ROZEREM) PO SCH (20:10)
[2022-02-02] MEDS: traMADol 50 MG TAB PO PRN ×3 (02:18→20:14)
[2022-02-02 06:00] VITALS: BP 129/78
[2022-02-02] MEDS: metFORMIN (GLUCOPHAGE) 500MG TAB PO SCH (07:53)
[2022-02-02] MEDS: FLUoxetine 10 MG CAP PO SCH (11:02)
[2022-02-02] MEDS: FUROSEMIDE 40 MG TAB PO SCH (11:03)
[2022-02-02] MEDS: QUEtiapine FUMARATE 50MG TAB PO SCH ×2 (11:03→20:13)
[2022-02-02] MEDS: DOCUSATE SODIUM 100MG CAPSULE PO SCH ×2 (11:03→20:13)
[2022-02-02] MEDS: ASPIRIN 81MG CHEW TABLET PO SCH (11:03)
[2022-02-02] MEDS: TAMSULOSIN 0.4 MG CAP PO SCH (11:03)
[2022-02-02] MEDS: SODIUM CHLORIDE NASAL 0.65% SPRAY BTL (OCEAN) SCH ×2 (11:04→20:14)
[2022-02-02] MEDS: ATORVASTATIN 20 MG TAB PO SCH (11:04)
[2022-02-02] MEDS: FLUTICASONE PROP 0.05% NASAL SPRAY 16 GM (FLONASE) NARES SCH ×2 (11:04→20:14)
[2022-02-02] MEDS: RAMELTEON 8 MG TAB (ROZEREM) PO SCH (20:13)
[2022-02-02] MEDS: OLANZapine ORAL DISINTEGRATING TAB 5MG PO PRN (20:13)
[2022-02-02] MEDS: carisoprodoL 350 MG TAB PO PRN (22:47)
[2022-02-03 06:00] VITALS: BP 135/77
[2022-02-03] MEDS: metFORMIN (GLUCOPHAGE) 500MG TAB PO SCH (08:00)
[2022-02-03] MEDS: ASPIRIN 81MG CHEW TABLET PO SCH (08:16)
[2022-02-03] MEDS: DOCUSATE SODIUM 100MG CAPSULE PO SCH ×2 (08:16→19:39)
[2022-02-03] MEDS: ATORVASTATIN 20 MG TAB PO SCH (08:17)
[2022-02-03] MEDS: TAMSULOSIN 0.4 MG CAP PO SCH (08:17)
[2022-02-03] MEDS: FLUTICASONE PROP 0.05% NASAL SPRAY 16 GM (FLONASE) NARES SCH ×2 (08:17→19:40)
[2022-02-03] MEDS: QUEtiapine FUMARATE 50MG TAB PO SCH ×2 (08:17→19:39)
[2022-02-03] MEDS: FUROSEMIDE 40 MG TAB PO SCH (08:17)
[2022-02-03] MEDS: FLUoxetine 10 MG CAP PO SCH (08:17)
[2022-02-03] MEDS: SODIUM CHLORIDE NASAL 0.65% SPRAY BTL (OCEAN) SCH ×2 (08:17→19:40)
[2022-02-03] MEDS: traMADol 50 MG TAB PO PRN ×2 (09:18→19:40)
[2022-02-03 10:30] LABS: BASO % 0.5 % (0.0-1.0); EOS # 0.2 10^3/uL (0.0-0.5); EOS % 2.4 % (0.0-3.0); HEMATOCRIT 43.4 % (42.0-52.0); HEMOGLOBIN 14.3 g/dl (13.5-17.5); LYMPH % 25.1 % (24.0-44.0); MEAN CORPUSCULAR HEMOGLOBIN 27.2 pg (27.0-33.0); MEAN CORPUSCULAR HGB CONC 32.9 g/dl (32.0-36.5); MEAN CORPUSCULAR VOLUME 82.7 fl (80.0-96.0); MONO # 0.7 10^3/uL (0.0-0.8); MONO % 8.2 % (2.0-8.0); NEUTROPHILS # 5.1 10^3/uL (1.5-8.5); NEUTROPHILS % 63.6 % (36.0-66.0); PLATELET COUNT, AUTOMATED 252 10^3/uL (150-450); RED BLOOD COUNT 5.25 10^6/uL (4.30-6.10)
[2022-02-03 11:09] LABS: BLOOD UREA NITROGEN 23 MG/DL (7-18); CALCIUM LEVEL 9.1 MG/DL (8.8-10.2); CARBON DIOXIDE LEVEL 26 MEQ/L (21-32); CHLORIDE LEVEL 102 MEQ/L (98-107); CREATININE FOR GFR 0.82 MG/DL (0.70-1.30); GLOMERULAR FILTRATION RATE > 60.0 (>42); GLUCOSE, FASTING 179 MG/DL (70-100); MAGNESIUM LEVEL 2.1 MG/DL (1.8-2.4); POTASSIUM SERUM 4.2 MEQ/L (3.5-5.1); SODIUM LEVEL 136 MEQ/L (136-145)
[2022-02-03] MEDS: carisoprodoL 350 MG TAB PO PRN (12:08)
[2022-02-03] MEDS: OLANZapine ORAL DISINTEGRATING TAB 5MG PO PRN (19:39)
[2022-02-03] MEDS: RAMELTEON 8 MG TAB (ROZEREM) PO SCH (19:39)
[2022-02-04] MEDS: carisoprodoL 350 MG TAB PO PRN (00:11)
[2022-02-04 06:00] VITALS: BP 128/76
[2022-02-04] MEDS: metFORMIN (GLUCOPHAGE) 500MG TAB PO SCH (08:00)
[2022-02-04] MEDS: ASPIRIN 81MG CHEW TABLET PO SCH (09:26)
[2022-02-04] MEDS: QUEtiapine FUMARATE 50MG TAB PO SCH (09:26)
[2022-02-04] MEDS: DOCUSATE SODIUM 100MG CAPSULE PO SCH (09:26)
[2022-02-04] MEDS: TAMSULOSIN 0.4 MG CAP PO SCH (09:26)
[2022-02-04] MEDS: SODIUM CHLORIDE NASAL 0.65% SPRAY BTL (OCEAN) SCH (09:27)
[2022-02-04] MEDS: FUROSEMIDE 40 MG TAB PO SCH (09:27)
[2022-02-04] MEDS: ATORVASTATIN 20 MG TAB PO SCH (09:27)
[2022-02-04] MEDS: FLUTICASONE PROP 0.05% NASAL SPRAY 16 GM (FLONASE) NARES SCH (09:28)
[2022-02-04] MEDS: FLUoxetine 10 MG CAP PO SCH (09:31)
[2022-02-04] MEDS: CALCIUM CARBONATE 500 MG CHEW U/D PO PRN (16:37)
[2022-02-05] MEDS: QUEtiapine FUMARATE 50MG TAB PO SCH ×3 (00:25→22:57)
[2022-02-05] MEDS: RAMELTEON 8 MG TAB (ROZEREM) PO SCH ×2 (00:25→22:57)
[2022-02-05] MEDS: DOCUSATE SODIUM 100MG CAPSULE PO SCH ×3 (00:25→22:57)
[2022-02-05] MEDS: FLUTICASONE PROP 0.05% NASAL SPRAY 16 GM (FLONASE) NARES SCH ×3 (00:26→22:57)
[2022-02-05] MEDS: SODIUM CHLORIDE NASAL 0.65% SPRAY BTL (OCEAN) SCH ×3 (00:26→22:57)
[2022-02-05] MEDS: traMADol 50 MG TAB PO PRN ×2 (00:27→22:58)
[2022-02-05 08:00] VITALS: BP 125/71
[2022-02-05] MEDS: metFORMIN (GLUCOPHAGE) 500MG TAB PO SCH (08:00)
[2022-02-05] MEDS: ASPIRIN 81MG CHEW TABLET PO SCH (08:13)
[2022-02-05] MEDS: ATORVASTATIN 20 MG TAB PO SCH (08:13)
[2022-02-05] MEDS: TAMSULOSIN 0.4 MG CAP PO SCH (08:13)
[2022-02-05] MEDS: FUROSEMIDE 40 MG TAB PO SCH (08:14)
[2022-02-05] MEDS: FLUoxetine 10 MG CAP PO SCH (08:18)
[2022-02-05] MEDS: ACETAMINOPHEN TAB 650MG DOSE (2X325MG) PO PRN (12:20)
[2022-02-05] MEDS: OLANZapine ORAL DISINTEGRATING TAB 5MG PO PRN (13:23)
[2022-02-06 06:00] VITALS: BP 134/79
[2022-02-06] MEDS: metFORMIN (GLUCOPHAGE) 500MG TAB PO SCH (08:00)
[2022-02-06] MEDS: SODIUM CHLORIDE NASAL 0.65% SPRAY BTL (OCEAN) SCH ×2 (09:00→20:58)
[2022-02-06] MEDS: QUEtiapine FUMARATE 50MG TAB PO SCH ×2 (11:30→20:57)
[2022-02-06] MEDS: traMADol 50 MG TAB PO PRN ×2 (11:30→17:35)
[2022-02-06] MEDS: FLUoxetine 10 MG CAP PO SCH (11:31)
[2022-02-06] MEDS: FUROSEMIDE 40 MG TAB PO SCH (11:31)
[2022-02-06] MEDS: TAMSULOSIN 0.4 MG CAP PO SCH (11:31)
[2022-02-06] MEDS: ATORVASTATIN 20 MG TAB PO SCH (11:32)
[2022-02-06] MEDS: ASPIRIN 81MG CHEW TABLET PO SCH (11:32)
[2022-02-06] MEDS: DOCUSATE SODIUM 100MG CAPSULE PO SCH ×2 (11:32→20:57)
[2022-02-06] MEDS: FLUTICASONE PROP 0.05% NASAL SPRAY 16 GM (FLONASE) NARES SCH ×2 (11:35→20:58)
[2022-02-06] MEDS: LIDOCAINE 5% (LIDODERM) PATCH TD SCH (13:15)
[2022-02-06 14:00] LABS: HEMATOCRIT 41.8 % (42.0-52.0); HEMOGLOBIN 14.3 g/dl (13.5-17.5); MEAN CORPUSCULAR HEMOGLOBIN 27.3 pg (27.0-33.0); MEAN CORPUSCULAR HGB CONC 34.2 g/dl (32.0-36.5); MEAN CORPUSCULAR VOLUME 79.9 fl (80.0-96.0); PLATELET COUNT, AUTOMATED 242 10^3/uL (150-450); RED BLOOD COUNT 5.23 10^6/uL (4.30-6.10); WHITE BLOOD COUNT 7.7 10^3/uL (4.0-10.0)
[2022-02-06 14:20] LABS: ALKALINE PHOSPHATASE 140 U/L (45-117); ALT/SGPT 20 U/L (12-78); AST/SGOT 14 U/L (7-37); BILIRUBIN,DIRECT 0.2 MG/DL (0.0-0.2); BILIRUBIN,TOTAL 0.5 MG/DL (0.2-1.0); BLOOD UREA NITROGEN 19 MG/DL (7-18); CALCIUM LEVEL 8.4 MG/DL (8.8-10.2); CARBON DIOXIDE LEVEL 26 MEQ/L (21-32); CHLORIDE LEVEL 100 MEQ/L (98-107); CREATININE FOR GFR 0.78 MG/DL (0.70-1.30); GLOMERULAR FILTRATION RATE > 60.0 (>42); GLUCOSE, FASTING 194 MG/DL (70-100); POTASSIUM SERUM 3.7 MEQ/L (3.5-5.1); SODIUM LEVEL 132 MEQ/L (136-145); TOTAL PROTEIN 6.4 GM/DL (6.4-8.2)
[2022-02-06] MEDS: OLANZapine ORAL DISINTEGRATING TAB 5MG PO PRN (17:36)
[2022-02-06] MEDS: **NOTE PATIENT COMMENT** MISC XX SCH (20:46)
[2022-02-06] MEDS: RAMELTEON 8 MG TAB (ROZEREM) PO SCH (20:57)
[2022-02-06] MEDS: carisoprodoL 350 MG TAB PO PRN (20:58)
[2022-02-07] MEDS: traMADol 50 MG TAB PO PRN ×3 (03:04→17:33)
[2022-02-07 06:00] VITALS: BP 129/75
[2022-02-07] MEDS: metFORMIN (GLUCOPHAGE) 500MG TAB PO SCH (08:06)
[2022-02-07] MEDS: QUEtiapine FUMARATE 50MG TAB PO SCH ×3 (08:06→23:47)
[2022-02-07] MEDS: SODIUM CHLORIDE NASAL 0.65% SPRAY BTL (OCEAN) SCH ×2 (08:06→21:00)
[2022-02-07] MEDS: TAMSULOSIN 0.4 MG CAP PO SCH (08:07)
[2022-02-07] MEDS: DOCUSATE SODIUM 100MG CAPSULE PO SCH ×3 (08:07→23:47)
[2022-02-07] MEDS: ATORVASTATIN 20 MG TAB PO SCH (08:07)
[2022-02-07] MEDS: LIDOCAINE 5% (LIDODERM) PATCH TD SCH (08:07)
[2022-02-07] MEDS: FLUTICASONE PROP 0.05% NASAL SPRAY 16 GM (FLONASE) NARES SCH ×2 (08:07→21:00)
[2022-02-07] MEDS: FUROSEMIDE 40 MG TAB PO SCH (08:07)
[2022-02-07] MEDS: ASPIRIN 81MG CHEW TABLET PO SCH (08:07)
[2022-02-07] MEDS: FLUoxetine 10 MG CAP PO SCH (08:13)
[2022-02-07] MEDS: RAMELTEON 8 MG TAB (ROZEREM) PO SCH ×2 (21:00→23:47)
[2022-02-07] MEDS: **NOTE PATIENT COMMENT** MISC XX SCH (21:00)
[2022-02-07] MEDS: ACETAMINOPHEN TAB 650MG DOSE (2X325MG) PO PRN (23:46)
[2022-02-08 06:00] VITALS: BP 138/76
[2022-02-08] MEDS: metFORMIN (GLUCOPHAGE) 500MG TAB PO SCH (07:48)
[2022-02-08] MEDS: FLUTICASONE PROP 0.05% NASAL SPRAY 16 GM (FLONASE) NARES SCH ×2 (09:00→21:51)
[2022-02-08] MEDS: ASPIRIN 81MG CHEW TABLET PO SCH (09:00)
[2022-02-08] MEDS: QUEtiapine FUMARATE 50MG TAB PO SCH ×2 (09:00→21:51)
[2022-02-08] MEDS: ATORVASTATIN 20 MG TAB PO SCH (09:00)
[2022-02-08] MEDS: FUROSEMIDE 40 MG TAB PO SCH (09:00)
[2022-02-08] MEDS: TAMSULOSIN 0.4 MG CAP PO SCH (09:00)
[2022-02-08] MEDS: LIDOCAINE 5% (LIDODERM) PATCH TD SCH (09:00)
[2022-02-08] MEDS: FLUoxetine 10 MG CAP PO SCH (09:00)
[2022-02-08] MEDS: SODIUM CHLORIDE NASAL 0.65% SPRAY BTL (OCEAN) SCH ×2 (09:00→21:51)
[2022-02-08] MEDS: DOCUSATE SODIUM 100MG CAPSULE PO SCH ×2 (09:00→21:50)
[2022-02-08] MEDS: traMADol 50 MG TAB PO PRN (18:51)
[2022-02-08] MEDS: **NOTE PATIENT COMMENT** MISC XX SCH (21:00)
[2022-02-08] MEDS: carisoprodoL 350 MG TAB PO PRN (21:51)
[2022-02-08] MEDS: RAMELTEON 8 MG TAB (ROZEREM) PO SCH (21:51)
[2022-02-09] MEDS: traMADol 50 MG TAB PO PRN ×2 (04:34→15:00)
[2022-02-09 06:00] VITALS: BP 159/80
[2022-02-09] MEDS: metFORMIN (GLUCOPHAGE) 500MG TAB PO SCH (07:48)
[2022-02-09] MEDS: ASPIRIN 81MG CHEW TABLET PO SCH (09:00)
[2022-02-09] MEDS: SODIUM CHLORIDE NASAL 0.65% SPRAY BTL (OCEAN) SCH ×2 (09:00→23:18)
[2022-02-09] MEDS: FLUoxetine 10 MG CAP PO SCH (09:00)
[2022-02-09] MEDS: QUEtiapine FUMARATE 50MG TAB PO SCH ×2 (09:00→23:18)
[2022-02-09] MEDS: TAMSULOSIN 0.4 MG CAP PO SCH (09:00)
[2022-02-09] MEDS: LIDOCAINE 5% (LIDODERM) PATCH TD SCH (09:00)
[2022-02-09] MEDS: DOCUSATE SODIUM 100MG CAPSULE PO SCH ×2 (09:00→23:18)
[2022-02-09] MEDS: FLUTICASONE PROP 0.05% NASAL SPRAY 16 GM (FLONASE) NARES SCH ×2 (09:00→23:18)
[2022-02-09] MEDS: ATORVASTATIN 20 MG TAB PO SCH (09:00)
[2022-02-09] MEDS: FUROSEMIDE 40 MG TAB PO SCH (09:00)
[2022-02-09] MEDS: carisoprodoL 350 MG TAB PO PRN (17:02)
[2022-02-09 20:00] VITALS: BP 153/80
[2022-02-09] MEDS: **NOTE PATIENT COMMENT** MISC XX SCH (20:00)
[2022-02-09 20:15] VITALS: BP 153/80
[2022-02-09] MEDS: RAMELTEON 8 MG TAB (ROZEREM) PO SCH (23:18)
[2022-02-10] MEDS: QUEtiapine FUMARATE 50MG TAB PO SCH ×3 (02:55→21:28)
[2022-02-10] MEDS: traMADol 50 MG TAB PO PRN ×2 (02:55→17:33)
[2022-02-10] MEDS: RAMELTEON 8 MG TAB (ROZEREM) PO SCH ×2 (02:55→21:28)
[2022-02-10 06:00] VITALS: BP 144/82
[2022-02-10] MEDS: ATORVASTATIN 20 MG TAB PO SCH (08:24)
[2022-02-10] MEDS: metFORMIN (GLUCOPHAGE) 500MG TAB PO SCH (08:24)
[2022-02-10] MEDS: ASPIRIN 81MG CHEW TABLET PO SCH (08:24)
[2022-02-10] MEDS: SODIUM CHLORIDE NASAL 0.65% SPRAY BTL (OCEAN) SCH ×2 (08:25→21:28)
[2022-02-10] MEDS: DOCUSATE SODIUM 100MG CAPSULE PO SCH ×2 (08:25→21:28)
[2022-02-10] MEDS: TAMSULOSIN 0.4 MG CAP PO SCH (08:25)
[2022-02-10] MEDS: FLUTICASONE PROP 0.05% NASAL SPRAY 16 GM (FLONASE) NARES SCH ×2 (08:25→21:28)
[2022-02-10] MEDS: FLUoxetine 10 MG CAP PO SCH (08:25)
[2022-02-10] MEDS: FUROSEMIDE 40 MG TAB PO SCH (08:25)
[2022-02-10] MEDS: LIDOCAINE 5% (LIDODERM) PATCH TD SCH (08:26)
[2022-02-10] MEDS: guaiFENesin 200 MG TAB PO PRN (17:57)
[2022-02-10] MEDS: **NOTE PATIENT COMMENT** MISC XX SCH (21:00)
[2022-02-10] MEDS: carisoprodoL 350 MG TAB PO PRN (21:28)
[2022-02-11] MEDS: traMADol 50 MG TAB PO PRN ×2 (03:56→20:27)
[2022-02-11 06:00] VITALS: BP 134/71
[2022-02-11] MEDS: LIDOCAINE 5% (LIDODERM) PATCH TD SCH ×2 (09:00→09:08)
[2022-02-11] MEDS: metFORMIN (GLUCOPHAGE) 500MG TAB PO SCH (09:06)
[2022-02-11] MEDS: FLUoxetine 10 MG CAP PO SCH (09:07)
[2022-02-11] MEDS: QUEtiapine FUMARATE 50MG TAB PO SCH ×2 (09:07→20:25)
[2022-02-11] MEDS: TAMSULOSIN 0.4 MG CAP PO SCH (09:07)
[2022-02-11] MEDS: ATORVASTATIN 20 MG TAB PO SCH (09:07)
[2022-02-11] MEDS: DOCUSATE SODIUM 100MG CAPSULE PO SCH ×2 (09:07→20:25)
[2022-02-11] MEDS: ASPIRIN 81MG CHEW TABLET PO SCH (09:07)
[2022-02-11] MEDS: FUROSEMIDE 40 MG TAB PO SCH (09:08)
[2022-02-11] MEDS: FLUTICASONE PROP 0.05% NASAL SPRAY 16 GM (FLONASE) NARES SCH ×2 (09:08→20:28)
[2022-02-11] MEDS: SODIUM CHLORIDE NASAL 0.65% SPRAY BTL (OCEAN) SCH ×2 (09:08→20:28)
[2022-02-11 13:31] VITALS: BP 111/69
[2022-02-11 18:45] LABS: HEMATOCRIT 42.7 % (42.0-52.0); HEMOGLOBIN 14.3 g/dl (13.5-17.5); MEAN CORPUSCULAR HEMOGLOBIN 27.2 pg (27.0-33.0); MEAN CORPUSCULAR HGB CONC 33.5 g/dl (32.0-36.5); MEAN CORPUSCULAR VOLUME 81.3 fl (80.0-96.0); PLATELET COUNT, AUTOMATED 288 10^3/uL (150-450); RED BLOOD COUNT 5.25 10^6/uL (4.30-6.10); WHITE BLOOD COUNT 7.6 10^3/uL (4.0-10.0)
[2022-02-11 19:04] LABS: BLOOD UREA NITROGEN 17 MG/DL (7-18); CARBON DIOXIDE LEVEL 29 MEQ/L (21-32); CHLORIDE LEVEL 98 MEQ/L (98-107); GLOMERULAR FILTRATION RATE > 60.0 (>42); GLUCOSE, FASTING 219 MG/DL (70-100); POTASSIUM SERUM 3.8 MEQ/L (3.5-5.1); SODIUM LEVEL 135 MEQ/L (136-145)
[2022-02-11 19:05] LABS: CALCIUM LEVEL 8.8 MG/DL (8.8-10.2)
[2022-02-11] MEDS: **NOTE PATIENT COMMENT** MISC XX SCH (20:13)
[2022-02-11] MEDS: RAMELTEON 8 MG TAB (ROZEREM) PO SCH (20:25)
[2022-02-12] MEDS: OLANZapine ORAL DISINTEGRATING TAB 5MG PO PRN (02:35)
[2022-02-12] MEDS: traMADol 50 MG TAB PO PRN ×3 (02:36→21:36)
[2022-02-12 06:00] VITALS: BP 141/80
[2022-02-12] MEDS: LIDOCAINE 5% (LIDODERM) PATCH TD SCH (07:46)
[2022-02-12] MEDS: metFORMIN (GLUCOPHAGE) 500MG TAB PO SCH (07:46)
[2022-02-12] MEDS: FLUoxetine 10 MG CAP PO SCH (08:31)
[2022-02-12] MEDS: ASPIRIN 81MG CHEW TABLET PO SCH (08:31)
[2022-02-12] MEDS: TAMSULOSIN 0.4 MG CAP PO SCH (08:31)
[2022-02-12] MEDS: QUEtiapine FUMARATE 50MG TAB PO SCH ×2 (08:31→21:35)
[2022-02-12] MEDS: ATORVASTATIN 20 MG TAB PO SCH (08:31)
[2022-02-12] MEDS: DOCUSATE SODIUM 100MG CAPSULE PO SCH ×2 (08:31→21:35)
[2022-02-12] MEDS: FUROSEMIDE 40 MG TAB PO SCH (08:32)
[2022-02-12] MEDS: FLUTICASONE PROP 0.05% NASAL SPRAY 16 GM (FLONASE) NARES SCH ×2 (08:32→21:36)
[2022-02-12] MEDS: SODIUM CHLORIDE NASAL 0.65% SPRAY BTL (OCEAN) SCH ×2 (08:32→21:36)
[2022-02-12] MEDS: carisoprodoL 350 MG TAB PO PRN (16:25)
[2022-02-12] MEDS: **NOTE PATIENT COMMENT** MISC XX SCH (21:00)
[2022-02-12] MEDS: RAMELTEON 8 MG TAB (ROZEREM) PO SCH (21:34)
[2022-02-13] MEDS: ACETAMINOPHEN TAB 650MG DOSE (2X325MG) PO PRN (02:59)
[2022-02-13] MEDS: traMADol 50 MG TAB PO PRN ×3 (04:18→15:40)
[2022-02-13 06:00] VITALS: BP 136/80
[2022-02-13] MEDS: metFORMIN (GLUCOPHAGE) 500MG TAB PO SCH (08:00)
[2022-02-13] MEDS: ATORVASTATIN 20 MG TAB PO SCH (09:00)
[2022-02-13] MEDS: DOCUSATE SODIUM 100MG CAPSULE PO SCH ×2 (09:00→19:46)
[2022-02-13] MEDS: ASPIRIN 81MG CHEW TABLET PO SCH (09:00)
[2022-02-13] MEDS: FUROSEMIDE 40 MG TAB PO SCH (09:00)
[2022-02-13] MEDS: FLUTICASONE PROP 0.05% NASAL SPRAY 16 GM (FLONASE) NARES SCH ×2 (09:00→19:45)
[2022-02-13] MEDS: QUEtiapine FUMARATE 50MG TAB PO SCH ×2 (09:00→19:45)
[2022-02-13] MEDS: TAMSULOSIN 0.4 MG CAP PO SCH (09:00)
[2022-02-13] MEDS: FLUoxetine 10 MG CAP PO SCH (09:00)
[2022-02-13] MEDS: LIDOCAINE 5% (LIDODERM) PATCH TD SCH (09:00)
[2022-02-13] MEDS: SODIUM CHLORIDE NASAL 0.65% SPRAY BTL (OCEAN) SCH ×2 (09:00→19:45)
[2022-02-13] MEDS: RAMELTEON 8 MG TAB (ROZEREM) PO SCH (19:45)
[2022-02-13] MEDS: OLANZapine ORAL DISINTEGRATING TAB 5MG PO PRN (19:45)
[2022-02-13] MEDS: **NOTE PATIENT COMMENT** MISC XX SCH (19:46)
[2022-02-14] MEDS: traMADol 50 MG TAB PO PRN ×2 (06:35→16:24)
[2022-02-14] MEDS: metFORMIN (GLUCOPHAGE) 500MG TAB PO SCH (08:00)
[2022-02-14] MEDS: DOCUSATE SODIUM 100MG CAPSULE PO SCH ×2 (14:30→21:31)
[2022-02-14] MEDS: QUEtiapine FUMARATE 50MG TAB PO SCH ×2 (14:30→21:31)
[2022-02-14] MEDS: FLUTICASONE PROP 0.05% NASAL SPRAY 16 GM (FLONASE) NARES SCH ×2 (14:30→21:30)
[2022-02-14] MEDS: SODIUM CHLORIDE NASAL 0.65% SPRAY BTL (OCEAN) SCH ×2 (14:31→21:30)
[2022-02-14] MEDS: ASPIRIN 81MG CHEW TABLET PO SCH (15:26)
[2022-02-14] MEDS: ATORVASTATIN 20 MG TAB PO SCH (15:26)
[2022-02-14] MEDS: FUROSEMIDE 40 MG TAB PO SCH (15:26)
[2022-02-14] MEDS: TAMSULOSIN 0.4 MG CAP PO SCH (15:26)
[2022-02-14] MEDS: FLUoxetine 10 MG CAP PO SCH (15:27)
[2022-02-14] MEDS: LIDOCAINE 5% (LIDODERM) PATCH TD SCH (15:27)
[2022-02-14] MEDS: carisoprodoL 350 MG TAB PO PRN (17:16)
[2022-02-14] MEDS: **NOTE PATIENT COMMENT** MISC XX SCH (21:00)
[2022-02-14] MEDS: RAMELTEON 8 MG TAB (ROZEREM) PO SCH (21:31)
[2022-02-14] MEDS: ACETAMINOPHEN TAB 650MG DOSE (2X325MG) PO PRN (21:31)
[2022-02-15] MEDS: traMADol 50 MG TAB PO PRN ×2 (03:47→16:05)
[2022-02-15 06:34] VITALS: BP 140/80
[2022-02-15] MEDS: metFORMIN (GLUCOPHAGE) 500MG TAB PO SCH (07:47)
[2022-02-15] MEDS: LIDOCAINE 5% (LIDODERM) PATCH TD SCH (07:47)
[2022-02-15] MEDS: FLUTICASONE PROP 0.05% NASAL SPRAY 16 GM (FLONASE) NARES SCH ×2 (08:37→19:57)
[2022-02-15] MEDS: SODIUM CHLORIDE NASAL 0.65% SPRAY BTL (OCEAN) SCH ×2 (08:38→19:57)
[2022-02-15] MEDS: TAMSULOSIN 0.4 MG CAP PO SCH (08:38)
[2022-02-15] MEDS: DOCUSATE SODIUM 100MG CAPSULE PO SCH ×2 (08:38→19:55)
[2022-02-15] MEDS: ASPIRIN 81MG CHEW TABLET PO SCH (08:38)
[2022-02-15] MEDS: FUROSEMIDE 40 MG TAB PO SCH (08:38)
[2022-02-15] MEDS: FLUoxetine 10 MG CAP PO SCH (08:38)
[2022-02-15] MEDS: ATORVASTATIN 20 MG TAB PO SCH (08:38)
[2022-02-15] MEDS: QUEtiapine FUMARATE 50MG TAB PO SCH ×2 (08:38→19:55)
[2022-02-15] MEDS: **NOTE PATIENT COMMENT** MISC XX SCH (19:43)
[2022-02-15] MEDS: carisoprodoL 350 MG TAB PO PRN (19:55)
[2022-02-15] MEDS: RAMELTEON 8 MG TAB (ROZEREM) PO SCH (19:55)
[2022-02-15 20:51] VITALS: BP 134/73
[2022-02-16] MEDS: traMADol 50 MG TAB PO PRN ×2 (01:13→16:49)
[2022-02-16 06:00] VITALS: BP 145/76
[2022-02-16] MEDS: metFORMIN (GLUCOPHAGE) 500MG TAB PO SCH (15:09)
[2022-02-16] MEDS: TAMSULOSIN 0.4 MG CAP PO SCH (15:10)
[2022-02-16] MEDS: ATORVASTATIN 20 MG TAB PO SCH (15:10)
[2022-02-16] MEDS: DOCUSATE SODIUM 100MG CAPSULE PO SCH ×2 (15:10→20:23)
[2022-02-16] MEDS: ASPIRIN 81MG CHEW TABLET PO SCH (15:10)
[2022-02-16] MEDS: FUROSEMIDE 40 MG TAB PO SCH (15:10)
[2022-02-16] MEDS: QUEtiapine FUMARATE 50MG TAB PO SCH ×2 (15:11→20:23)
[2022-02-16] MEDS: FLUoxetine 10 MG CAP PO SCH (15:11)
[2022-02-16] MEDS: FLUTICASONE PROP 0.05% NASAL SPRAY 16 GM (FLONASE) NARES SCH ×2 (15:12→20:24)
[2022-02-16] MEDS: LIDOCAINE 5% (LIDODERM) PATCH TD SCH (15:12)
[2022-02-16] MEDS: SODIUM CHLORIDE NASAL 0.65% SPRAY BTL (OCEAN) SCH ×2 (15:12→20:24)
[2022-02-16] MEDS: RAMELTEON 8 MG TAB (ROZEREM) PO SCH (20:23)
[2022-02-16] MEDS: **NOTE PATIENT COMMENT** MISC XX SCH (20:25)
[2022-02-17] MEDS: traMADol 50 MG TAB PO PRN ×2 (06:42→17:14)
[2022-02-17] MEDS: metFORMIN (GLUCOPHAGE) 500MG TAB PO SCH (08:00)
[2022-02-17] MEDS: LIDOCAINE 5% (LIDODERM) PATCH TD SCH (09:00)
[2022-02-17 10:18] VITALS: BP 147/82
[2022-02-17] MEDS: TAMSULOSIN 0.4 MG CAP PO SCH (10:33)
[2022-02-17] MEDS: QUEtiapine FUMARATE 50MG TAB PO SCH ×2 (10:33→20:12)
[2022-02-17] MEDS: DOCUSATE SODIUM 100MG CAPSULE PO SCH ×2 (10:34→20:13)
[2022-02-17] MEDS: ASPIRIN 81MG CHEW TABLET PO SCH (10:34)
[2022-02-17] MEDS: FUROSEMIDE 40 MG TAB PO SCH (10:34)
[2022-02-17] MEDS: SODIUM CHLORIDE NASAL 0.65% SPRAY BTL (OCEAN) SCH ×2 (10:35→20:12)
[2022-02-17] MEDS: FLUTICASONE PROP 0.05% NASAL SPRAY 16 GM (FLONASE) NARES SCH ×2 (10:35→20:12)
[2022-02-17] MEDS: ATORVASTATIN 20 MG TAB PO SCH (10:35)
[2022-02-17] MEDS: FLUoxetine 10 MG CAP PO SCH (10:39)
[2022-02-17] MEDS: ACETAMINOPHEN TAB 650MG DOSE (2X325MG) PO PRN (11:30)
[2022-02-17] MEDS: carisoprodoL 350 MG TAB PO PRN (20:12)
[2022-02-17] MEDS: **NOTE PATIENT COMMENT** MISC XX SCH (20:13)
[2022-02-17] MEDS: RAMELTEON 8 MG TAB (ROZEREM) PO SCH (20:13)
[2022-02-18] MEDS: traMADol 50 MG TAB PO PRN ×2 (04:21→16:00)
[2022-02-18 06:00] VITALS: BP 123/72
[2022-02-18] MEDS: LIDOCAINE 5% (LIDODERM) PATCH TD SCH (09:00)
[2022-02-18] MEDS: ASPIRIN 81MG CHEW TABLET PO SCH (09:00)
[2022-02-18] MEDS: DOCUSATE SODIUM 100MG CAPSULE PO SCH ×2 (09:00→20:45)
[2022-02-18] MEDS: FUROSEMIDE 40 MG TAB PO SCH (09:00)
[2022-02-18] MEDS: TAMSULOSIN 0.4 MG CAP PO SCH (09:00)
[2022-02-18] MEDS: QUEtiapine FUMARATE 50MG TAB PO SCH ×2 (09:00→20:45)
[2022-02-18] MEDS: SODIUM CHLORIDE NASAL 0.65% SPRAY BTL (OCEAN) SCH ×2 (09:00→20:45)
[2022-02-18] MEDS: FLUoxetine 10 MG CAP PO SCH (09:00)
[2022-02-18] MEDS: ATORVASTATIN 20 MG TAB PO SCH (09:00)
[2022-02-18] MEDS: FLUTICASONE PROP 0.05% NASAL SPRAY 16 GM (FLONASE) NARES SCH ×2 (09:00→20:45)
[2022-02-18] MEDS: metFORMIN (GLUCOPHAGE) 500MG TAB PO SCH (09:50)
[2022-02-18] MEDS: RAMELTEON 8 MG TAB (ROZEREM) PO SCH (20:45)
[2022-02-18] MEDS: **NOTE PATIENT COMMENT** MISC XX SCH (20:45)
[2022-02-18] MEDS: carisoprodoL 350 MG TAB PO PRN (22:36)
[2022-02-19 06:00] VITALS: BP 147/80
[2022-02-19] MEDS: TAMSULOSIN 0.4 MG CAP PO SCH (08:07)
[2022-02-19] MEDS: FUROSEMIDE 40 MG TAB PO SCH (08:07)
[2022-02-19] MEDS: QUEtiapine FUMARATE 50MG TAB PO SCH ×2 (08:07→22:56)
[2022-02-19] MEDS: FLUoxetine 10 MG CAP PO SCH (08:07)
[2022-02-19] MEDS: ASPIRIN 81MG CHEW TABLET PO SCH (08:07)
[2022-02-19] MEDS: metFORMIN (GLUCOPHAGE) 500MG TAB PO SCH (08:07)
[2022-02-19] MEDS: ATORVASTATIN 20 MG TAB PO SCH (08:08)
[2022-02-19] MEDS: SODIUM CHLORIDE NASAL 0.65% SPRAY BTL (OCEAN) SCH ×2 (08:08→22:56)
[2022-02-19] MEDS: FLUTICASONE PROP 0.05% NASAL SPRAY 16 GM (FLONASE) NARES SCH ×2 (08:08→22:56)
[2022-02-19] MEDS: LIDOCAINE 5% (LIDODERM) PATCH TD SCH ×2 (08:08→08:11)
[2022-02-19] MEDS: DOCUSATE SODIUM 100MG CAPSULE PO SCH ×2 (08:09→22:55)
[2022-02-19] MEDS: carisoprodoL 350 MG TAB PO PRN (11:55)
[2022-02-19] MEDS: traMADol 50 MG TAB PO PRN ×2 (11:56→19:35)
[2022-02-19 15:44] LABS: HEMATOCRIT 41.5 % (42.0-52.0); HEMOGLOBIN 14.1 g/dl (13.5-17.5); MEAN CORPUSCULAR HEMOGLOBIN 27.6 pg (27.0-33.0); MEAN CORPUSCULAR VOLUME 81.2 fl (80.0-96.0); PLATELET COUNT, AUTOMATED 270 10^3/uL (150-450); RED BLOOD COUNT 5.11 10^6/uL (4.30-6.10); WHITE BLOOD COUNT 8.3 10^3/uL (4.0-10.0)
[2022-02-19 16:13] LABS: ALBUMIN 3.3 GM/DL (3.2-5.2); ALKALINE PHOSPHATASE 158 U/L (45-117); ALT/SGPT 32 U/L (12-78); AST/SGOT 14 U/L (7-37); BILIRUBIN,TOTAL 0.3 MG/DL (0.2-1.0); BLOOD UREA NITROGEN 18 MG/DL (7-18); CALCIUM LEVEL 9.1 MG/DL (8.8-10.2); CARBON DIOXIDE LEVEL 24 MEQ/L (21-32); CHLORIDE LEVEL 98 MEQ/L (98-107); CREATININE FOR GFR 0.93 MG/DL (0.70-1.30); GLOMERULAR FILTRATION RATE > 60.0 (>42); GLUCOSE, FASTING 199 MG/DL (70-100); POTASSIUM SERUM 3.8 MEQ/L (3.5-5.1); SODIUM LEVEL 132 MEQ/L (136-145); TOTAL PROTEIN 6.6 GM/DL (6.4-8.2)
[2022-02-19 16:26] LABS: CK-MB VALUE MASS 1.8 NG/ML (<3.6); MB/CK RELATIVE INDEX 1.73 (< OR =4)
[2022-02-19] MEDS: RAMELTEON 8 MG TAB (ROZEREM) PO SCH (22:56)
[2022-02-19] MEDS: **NOTE PATIENT COMMENT** MISC XX SCH (22:57)
[2022-02-20] MEDS: traMADol 50 MG TAB PO PRN ×3 (04:22→23:24)
[2022-02-20 06:00] VITALS: BP 149/89
[2022-02-20] MEDS: metFORMIN (GLUCOPHAGE) 500MG TAB PO SCH (07:50)
[2022-02-20] MEDS: LIDOCAINE 5% (LIDODERM) PATCH TD SCH (09:00)
[2022-02-20] MEDS: FLUoxetine 10 MG CAP PO SCH (09:27)
[2022-02-20] MEDS: TAMSULOSIN 0.4 MG CAP PO SCH (09:27)
[2022-02-20] MEDS: QUEtiapine FUMARATE 50MG TAB PO SCH ×2 (09:27→20:00)
[2022-02-20] MEDS: ATORVASTATIN 20 MG TAB PO SCH (09:27)
[2022-02-20] MEDS: FLUTICASONE PROP 0.05% NASAL SPRAY 16 GM (FLONASE) NARES SCH ×2 (09:28→20:01)
[2022-02-20] MEDS: DOCUSATE SODIUM 100MG CAPSULE PO SCH ×2 (09:28→19:56)
[2022-02-20] MEDS: SODIUM CHLORIDE NASAL 0.65% SPRAY BTL (OCEAN) SCH ×2 (09:28→20:01)
[2022-02-20] MEDS: ASPIRIN 81MG CHEW TABLET PO SCH (09:28)
[2022-02-20] MEDS: FUROSEMIDE 40 MG TAB PO SCH (09:28)
[2022-02-20] MEDS: CALCIUM CARBONATE 500 MG CHEW U/D PO PRN (15:49)
[2022-02-20] MEDS: RAMELTEON 8 MG TAB (ROZEREM) PO SCH (20:00)
[2022-02-20] MEDS: carisoprodoL 350 MG TAB PO PRN (20:02)
[2022-02-20] MEDS: **NOTE PATIENT COMMENT** MISC XX SCH (20:04)
[2022-02-21 06:00] VITALS: BP 118/67
[2022-02-21] MEDS: metFORMIN (GLUCOPHAGE) 500MG TAB PO SCH (07:55)
[2022-02-21] MEDS: LIDOCAINE 5% (LIDODERM) PATCH TD SCH (09:00)
[2022-02-21] MEDS: DOCUSATE SODIUM 100MG CAPSULE PO SCH ×2 (09:00→19:54)
[2022-02-21] MEDS: TAMSULOSIN 0.4 MG CAP PO SCH (10:55)
[2022-02-21] MEDS: FLUoxetine 10 MG CAP PO SCH (10:55)
[2022-02-21] MEDS: ATORVASTATIN 20 MG TAB PO SCH (10:56)
[2022-02-21] MEDS: FUROSEMIDE 40 MG TAB PO SCH (10:56)
[2022-02-21] MEDS: QUEtiapine FUMARATE 50MG TAB PO SCH ×2 (10:56→19:54)
[2022-02-21] MEDS: ASPIRIN 81MG CHEW TABLET PO SCH (10:56)
[2022-02-21] MEDS: SODIUM CHLORIDE NASAL 0.65% SPRAY BTL (OCEAN) SCH ×2 (10:57→19:55)
[2022-02-21] MEDS: FLUTICASONE PROP 0.05% NASAL SPRAY 16 GM (FLONASE) NARES SCH ×2 (10:57→19:55)
[2022-02-21] MEDS: traMADol 50 MG TAB PO PRN (15:29)
[2022-02-21] MEDS: **NOTE PATIENT COMMENT** MISC XX SCH (18:48)
[2022-02-21] MEDS: carisoprodoL 350 MG TAB PO PRN (19:54)
[2022-02-21] MEDS: RAMELTEON 8 MG TAB (ROZEREM) PO SCH (19:54)
[2022-02-22] MEDS: traMADol 50 MG TAB PO PRN ×2 (00:46→17:48)
[2022-02-22 06:00] VITALS: BP 120/70
[2022-02-22] MEDS: metFORMIN (GLUCOPHAGE) 500MG TAB PO SCH (08:00)
[2022-02-22] MEDS: TAMSULOSIN 0.4 MG CAP PO SCH ×2 (08:46→09:42)
[2022-02-22] MEDS: ASPIRIN 81MG CHEW TABLET PO SCH ×2 (08:46→09:41)
[2022-02-22] MEDS: DOCUSATE SODIUM 100MG CAPSULE PO SCH ×3 (08:46→21:00)
[2022-02-22] MEDS: SODIUM CHLORIDE NASAL 0.65% SPRAY BTL (OCEAN) SCH ×3 (08:47→20:06)
[2022-02-22] MEDS: QUEtiapine FUMARATE 50MG TAB PO SCH ×3 (08:47→21:00)
[2022-02-22] MEDS: ATORVASTATIN 20 MG TAB PO SCH ×2 (08:47→09:42)
[2022-02-22] MEDS: LIDOCAINE 5% (LIDODERM) PATCH TD SCH ×2 (08:47→09:00)
[2022-02-22] MEDS: FUROSEMIDE 40 MG TAB PO SCH ×2 (08:47→09:43)
[2022-02-22] MEDS: FLUTICASONE PROP 0.05% NASAL SPRAY 16 GM (FLONASE) NARES SCH ×3 (08:47→20:07)
[2022-02-22] MEDS: FLUoxetine 10 MG CAP PO SCH ×2 (08:47→09:42)
[2022-02-22] MEDS: RAMELTEON 8 MG TAB (ROZEREM) PO SCH (20:04)
[2022-02-22] MEDS: **NOTE PATIENT COMMENT** MISC XX SCH (21:00)
[2022-02-23] MEDS: traMADol 50 MG TAB PO PRN ×3 (02:06→17:31)
[2022-02-23 06:00] VITALS: BP 135/72
[2022-02-23] MEDS: metFORMIN (GLUCOPHAGE) 500MG TAB PO SCH (07:32)
[2022-02-23] MEDS: ASPIRIN 81MG CHEW TABLET PO SCH (10:42)
[2022-02-23] MEDS: TAMSULOSIN 0.4 MG CAP PO SCH (10:42)
[2022-02-23] MEDS: FUROSEMIDE 40 MG TAB PO SCH (10:42)
[2022-02-23] MEDS: ATORVASTATIN 20 MG TAB PO SCH (10:42)
[2022-02-23] MEDS: DOCUSATE SODIUM 100MG CAPSULE PO SCH ×2 (10:42→20:54)
[2022-02-23] MEDS: QUEtiapine FUMARATE 50MG TAB PO SCH ×2 (10:43→20:54)
[2022-02-23] MEDS: LIDOCAINE 5% (LIDODERM) PATCH TD SCH (10:43)
[2022-02-23] MEDS: FLUoxetine 10 MG CAP PO SCH (10:43)
[2022-02-23] MEDS: FLUTICASONE PROP 0.05% NASAL SPRAY 16 GM (FLONASE) NARES SCH ×2 (10:43→20:54)
[2022-02-23] MEDS: SODIUM CHLORIDE NASAL 0.65% SPRAY BTL (OCEAN) SCH ×2 (10:43→20:54)
[2022-02-23] MEDS: ACETAMINOPHEN TAB 650MG DOSE (2X325MG) PO PRN (16:37)
[2022-02-23] MEDS: RAMELTEON 8 MG TAB (ROZEREM) PO SCH (20:54)
[2022-02-23] MEDS: **NOTE PATIENT COMMENT** MISC XX SCH (21:00)
[2022-02-24] MEDS: traMADol 50 MG TAB PO PRN ×3 (04:10→21:45)
[2022-02-24 06:00] VITALS: BP 130/76
[2022-02-24] MEDS: metFORMIN (GLUCOPHAGE) 500MG TAB PO SCH (07:47)
[2022-02-24] MEDS: ASPIRIN 81MG CHEW TABLET PO SCH (07:48)
[2022-02-24] MEDS: DOCUSATE SODIUM 100MG CAPSULE PO SCH ×2 (07:48→21:13)
[2022-02-24] MEDS: LIDOCAINE 5% (LIDODERM) PATCH TD SCH (07:48)
[2022-02-24] MEDS: ATORVASTATIN 20 MG TAB PO SCH (07:49)
[2022-02-24] MEDS: TAMSULOSIN 0.4 MG CAP PO SCH (07:49)
[2022-02-24] MEDS: FUROSEMIDE 40 MG TAB PO SCH (07:49)
[2022-02-24] MEDS: QUEtiapine FUMARATE 50MG TAB PO SCH ×2 (07:50→21:13)
[2022-02-24] MEDS: FLUoxetine 10 MG CAP PO SCH (07:50)
[2022-02-24] MEDS: SODIUM CHLORIDE NASAL 0.65% SPRAY BTL (OCEAN) SCH ×2 (07:50→21:13)
[2022-02-24] MEDS: FLUTICASONE PROP 0.05% NASAL SPRAY 16 GM (FLONASE) NARES SCH ×2 (07:51→21:13)
[2022-02-24] MEDS: CALCIUM CARBONATE 500 MG CHEW U/D PO PRN (19:31)
[2022-02-24] MEDS: **NOTE PATIENT COMMENT** MISC XX SCH (20:46)
[2022-02-24] MEDS: RAMELTEON 8 MG TAB (ROZEREM) PO SCH (21:13)
[2022-02-25] MEDS: ACETAMINOPHEN TAB 650MG DOSE (2X325MG) PO PRN (03:07)
[2022-02-25 06:00] VITALS: BP 140/85
[2022-02-25] MEDS: metFORMIN (GLUCOPHAGE) 500MG TAB PO SCH (07:30)
[2022-02-25] MEDS: ATORVASTATIN 20 MG TAB PO SCH ×2 (09:00→12:42)
[2022-02-25] MEDS: LIDOCAINE 5% (LIDODERM) PATCH TD SCH (09:00)
[2022-02-25] MEDS: QUEtiapine FUMARATE 50MG TAB PO SCH ×3 (09:00→21:00)
[2022-02-25] MEDS: FLUTICASONE PROP 0.05% NASAL SPRAY 16 GM (FLONASE) NARES SCH ×3 (09:00→21:00)
[2022-02-25] MEDS: SODIUM CHLORIDE NASAL 0.65% SPRAY BTL (OCEAN) SCH ×3 (09:00→21:00)
[2022-02-25] MEDS: DOCUSATE SODIUM 100MG CAPSULE PO SCH ×2 (09:00→21:00)
[2022-02-25] MEDS: FUROSEMIDE 40 MG TAB PO SCH ×2 (09:00→12:43)
[2022-02-25] MEDS: ASPIRIN 81MG CHEW TABLET PO SCH ×2 (09:00→12:42)
[2022-02-25] MEDS: TAMSULOSIN 0.4 MG CAP PO SCH ×2 (09:00→12:42)
[2022-02-25] MEDS: FLUoxetine 10 MG CAP PO SCH ×2 (09:00→12:42)
[2022-02-25] MEDS: CALCIUM CARBONATE 500 MG CHEW U/D PO PRN (12:43)
[2022-02-25] MEDS: traMADol 50 MG TAB PO PRN (16:22)
[2022-02-25] MEDS: **NOTE PATIENT COMMENT** MISC XX SCH (21:00)
[2022-02-25] MEDS: RAMELTEON 8 MG TAB (ROZEREM) PO SCH (21:00)
[2022-02-26 06:00] VITALS: BP 150/71
[2022-02-26] MEDS: metFORMIN (GLUCOPHAGE) 500MG TAB PO SCH (07:55)
[2022-02-26] MEDS: FLUoxetine 10 MG CAP PO SCH (09:00)
[2022-02-26] MEDS: LIDOCAINE 5% (LIDODERM) PATCH TD SCH (09:00)
[2022-02-26] MEDS: ATORVASTATIN 20 MG TAB PO SCH (09:00)
[2022-02-26] MEDS: FLUTICASONE PROP 0.05% NASAL SPRAY 16 GM (FLONASE) NARES SCH ×2 (09:00→20:19)
[2022-02-26] MEDS: QUEtiapine FUMARATE 50MG TAB PO SCH ×2 (09:00→20:19)
[2022-02-26] MEDS: TAMSULOSIN 0.4 MG CAP PO SCH (09:00)
[2022-02-26] MEDS: FUROSEMIDE 40 MG TAB PO SCH (09:00)
[2022-02-26] MEDS: ASPIRIN 81MG CHEW TABLET PO SCH (09:00)
[2022-02-26] MEDS: SODIUM CHLORIDE NASAL 0.65% SPRAY BTL (OCEAN) SCH ×2 (09:00→20:19)
[2022-02-26] MEDS: DOCUSATE SODIUM 100MG CAPSULE PO SCH ×2 (09:00→20:19)
[2022-02-26] MEDS: carisoprodoL 350 MG TAB PO PRN ×2 (12:23→20:19)
[2022-02-26] MEDS: traMADol 50 MG TAB PO PRN (12:24)
[2022-02-26] MEDS: **NOTE PATIENT COMMENT** MISC XX SCH (20:12)
[2022-02-26] MEDS: RAMELTEON 8 MG TAB (ROZEREM) PO SCH (20:19)
[2022-02-27 06:00] VITALS: BP 134/77
[2022-02-27] MEDS: ASPIRIN 81MG CHEW TABLET PO SCH (08:58)
[2022-02-27] MEDS: DOCUSATE SODIUM 100MG CAPSULE PO SCH ×2 (08:58→20:25)
[2022-02-27] MEDS: metFORMIN (GLUCOPHAGE) 500MG TAB PO SCH (08:58)
[2022-02-27] MEDS: FUROSEMIDE 40 MG TAB PO SCH (08:59)
[2022-02-27] MEDS: TAMSULOSIN 0.4 MG CAP PO SCH (08:59)
[2022-02-27] MEDS: ATORVASTATIN 20 MG TAB PO SCH (08:59)
[2022-02-27] MEDS: FLUoxetine 10 MG CAP PO SCH (09:00)
[2022-02-27] MEDS: QUEtiapine FUMARATE 50MG TAB PO SCH ×2 (09:00→20:25)
[2022-02-27] MEDS: LIDOCAINE 5% (LIDODERM) PATCH TD SCH (09:00)
[2022-02-27] MEDS: FLUTICASONE PROP 0.05% NASAL SPRAY 16 GM (FLONASE) NARES SCH ×2 (09:00→20:26)
[2022-02-27] MEDS: SODIUM CHLORIDE NASAL 0.65% SPRAY BTL (OCEAN) SCH ×2 (09:00→20:26)
[2022-02-27] MEDS: OLANZapine ORAL DISINTEGRATING TAB 5MG PO PRN (09:01)
[2022-02-27] MEDS: traMADol 50 MG TAB PO PRN ×2 (09:01→20:25)
[2022-02-27] MEDS: GABAPENTIN 100 MG CAP PO SCH ×2 (13:50→20:25)
[2022-02-27] MEDS: **NOTE PATIENT COMMENT** MISC XX SCH (20:16)
[2022-02-27] MEDS: RAMELTEON 8 MG TAB (ROZEREM) PO SCH (20:25)
[2022-02-28] MEDS: traMADol 50 MG TAB PO PRN ×3 (02:30→20:25)
[2022-02-28 06:00] VITALS: BP 145/89
[2022-02-28] MEDS: LIDOCAINE 5% (LIDODERM) PATCH TD SCH (07:52)
[2022-02-28] MEDS: GABAPENTIN 100 MG CAP PO SCH ×2 (08:05→20:25)
[2022-02-28] MEDS: metFORMIN (GLUCOPHAGE) 500MG TAB PO SCH (08:05)
[2022-02-28] MEDS: FLUoxetine 10 MG CAP PO SCH (08:05)
[2022-02-28] MEDS: DOCUSATE SODIUM 100MG CAPSULE PO SCH ×2 (08:06→20:25)
[2022-02-28] MEDS: FUROSEMIDE 40 MG TAB PO SCH (08:06)
[2022-02-28] MEDS: QUEtiapine FUMARATE 50MG TAB PO SCH ×2 (08:06→20:25)
[2022-02-28] MEDS: ATORVASTATIN 20 MG TAB PO SCH (08:06)
[2022-02-28] MEDS: ASPIRIN 81MG CHEW TABLET PO SCH (08:07)
[2022-02-28] MEDS: TAMSULOSIN 0.4 MG CAP PO SCH (08:07)
[2022-02-28] MEDS: SODIUM CHLORIDE NASAL 0.65% SPRAY BTL (OCEAN) SCH ×2 (08:08→20:24)
[2022-02-28] MEDS: FLUTICASONE PROP 0.05% NASAL SPRAY 16 GM (FLONASE) NARES SCH ×2 (08:08→20:24)
[2022-02-28] MEDS: carisoprodoL 350 MG TAB PO PRN (13:40)
[2022-02-28] MEDS: RAMELTEON 8 MG TAB (ROZEREM) PO SCH (20:24)
[2022-02-28] MEDS: **NOTE PATIENT COMMENT** MISC XX SCH (20:25)
[2022-03-01] MEDS: traMADol 50 MG TAB PO PRN ×2 (02:40→14:04)
[2022-03-01 06:00] VITALS: BP 144/83
[2022-03-01] MEDS: LIDOCAINE 5% (LIDODERM) PATCH TD SCH (07:40)
[2022-03-01] MEDS: metFORMIN (GLUCOPHAGE) 500MG TAB PO SCH (08:00)
[2022-03-01] MEDS: GABAPENTIN 100 MG CAP PO SCH ×2 (09:17→21:16)
[2022-03-01] MEDS: QUEtiapine FUMARATE 50MG TAB PO SCH ×2 (09:17→21:16)
[2022-03-01] MEDS: TAMSULOSIN 0.4 MG CAP PO SCH (09:17)
[2022-03-01] MEDS: DOCUSATE SODIUM 100MG CAPSULE PO SCH ×2 (09:17→21:16)
[2022-03-01] MEDS: ASPIRIN 81MG CHEW TABLET PO SCH (09:17)
[2022-03-01] MEDS: ATORVASTATIN 20 MG TAB PO SCH (09:17)
[2022-03-01] MEDS: FLUoxetine 10 MG CAP PO SCH (09:17)
[2022-03-01] MEDS: FUROSEMIDE 40 MG TAB PO SCH (09:18)
[2022-03-01] MEDS: FLUTICASONE PROP 0.05% NASAL SPRAY 16 GM (FLONASE) NARES SCH ×2 (09:18→21:16)
[2022-03-01] MEDS: SODIUM CHLORIDE NASAL 0.65% SPRAY BTL (OCEAN) SCH ×2 (09:18→21:16)
[2022-03-01] MEDS: carisoprodoL 350 MG TAB PO PRN (14:03)
[2022-03-01 15:00] VITALS: BP 111/57
[2022-03-01] MEDS: RAMELTEON 8 MG TAB (ROZEREM) PO SCH (21:16)
[2022-03-01] MEDS: **NOTE PATIENT COMMENT** MISC XX SCH (21:48)
[2022-03-02] MEDS: traMADol 50 MG TAB PO PRN ×4 (01:58→23:25)
[2022-03-02 02:00] VITALS: BP 137/73
[2022-03-02] MEDS: carisoprodoL 350 MG TAB PO PRN ×2 (05:56→20:13)
[2022-03-02 06:00] VITALS: BP 139/75
[2022-03-02] MEDS: metFORMIN (GLUCOPHAGE) 500MG TAB PO SCH (08:00)
[2022-03-02] MEDS: LIDOCAINE 5% (LIDODERM) PATCH TD SCH (08:06)
[2022-03-02] MEDS: TAMSULOSIN 0.4 MG CAP PO SCH (08:14)
[2022-03-02] MEDS: GABAPENTIN 100 MG CAP PO SCH ×2 (08:14→20:08)
[2022-03-02] MEDS: ASPIRIN 81MG CHEW TABLET PO SCH (08:14)
[2022-03-02] MEDS: DOCUSATE SODIUM 100MG CAPSULE PO SCH ×2 (08:15→20:07)
[2022-03-02] MEDS: QUEtiapine FUMARATE 50MG TAB PO SCH ×2 (08:15→20:07)
[2022-03-02] MEDS: FLUTICASONE PROP 0.05% NASAL SPRAY 16 GM (FLONASE) NARES SCH ×2 (08:15→20:08)
[2022-03-02] MEDS: ATORVASTATIN 20 MG TAB PO SCH (08:15)
[2022-03-02] MEDS: SODIUM CHLORIDE NASAL 0.65% SPRAY BTL (OCEAN) SCH ×2 (08:15→20:08)
[2022-03-02] MEDS: FUROSEMIDE 40 MG TAB PO SCH (08:15)
[2022-03-02] MEDS: FLUoxetine 10 MG CAP PO SCH (08:15)
[2022-03-02] MEDS: RAMELTEON 8 MG TAB (ROZEREM) PO SCH (20:07)
[2022-03-02] MEDS: **NOTE PATIENT COMMENT** MISC XX SCH (20:08)
[2022-03-02 20:10] VITALS: BP 141/73
[2022-03-03] MEDS: LIDOCAINE 5% OINT 30GM TUBE TOP PRN (01:23)
[2022-03-03 06:36] VITALS: BP 137/83
[2022-03-03] MEDS: metFORMIN (GLUCOPHAGE) 500MG TAB PO SCH (08:00)
[2022-03-03] MEDS: FUROSEMIDE 40 MG TAB PO SCH ×2 (09:00→10:17)
[2022-03-03] MEDS: ASPIRIN 81MG CHEW TABLET PO SCH ×2 (09:00→10:17)
[2022-03-03] MEDS: QUEtiapine FUMARATE 50MG TAB PO SCH ×4 (09:00→19:39)
[2022-03-03] MEDS: DOCUSATE SODIUM 100MG CAPSULE PO SCH ×3 (09:00→19:38)
[2022-03-03] MEDS: ATORVASTATIN 20 MG TAB PO SCH ×2 (09:00→10:18)
[2022-03-03] MEDS: GABAPENTIN 100 MG CAP PO SCH ×4 (09:00→19:38)
[2022-03-03] MEDS: TAMSULOSIN 0.4 MG CAP PO SCH ×2 (09:00→10:16)
[2022-03-03] MEDS: LIDOCAINE 5% (LIDODERM) PATCH TD SCH (09:00)
[2022-03-03] MEDS: FLUoxetine 10 MG CAP PO SCH ×3 (09:00→13:36)
[2022-03-03] MEDS: FLUTICASONE PROP 0.05% NASAL SPRAY 16 GM (FLONASE) NARES SCH ×2 (10:15→19:39)
[2022-03-03] MEDS: SODIUM CHLORIDE NASAL 0.65% SPRAY BTL (OCEAN) SCH ×2 (10:15→19:39)
[2022-03-03] MEDS: traMADol 50 MG TAB PO PRN ×2 (10:17→13:37)
[2022-03-03] MEDS: carisoprodoL 350 MG TAB PO PRN (18:22)
[2022-03-03] MEDS: RAMELTEON 8 MG TAB (ROZEREM) PO SCH (19:39)
[2022-03-03] MEDS: ACETAMINOPHEN TAB 650MG DOSE (2X325MG) PO PRN (19:39)
[2022-03-03] MEDS: **NOTE PATIENT COMMENT** MISC XX SCH ×2 (19:40→19:42)
[2022-03-04 05:52] VITALS: BP 162/89
[2022-03-04] MEDS: traMADol 50 MG TAB PO PRN ×4 (05:57→19:58)
[2022-03-04] MEDS: metFORMIN (GLUCOPHAGE) 500MG TAB PO SCH (07:24)
[2022-03-04] MEDS: LIDOCAINE 5% (LIDODERM) PATCH TD SCH (09:00)
[2022-03-04] MEDS: DOCUSATE SODIUM 100MG CAPSULE PO SCH ×2 (09:00→19:55)
[2022-03-04] MEDS: FUROSEMIDE 40 MG TAB PO SCH (11:25)
[2022-03-04] MEDS: TAMSULOSIN 0.4 MG CAP PO SCH (11:25)
[2022-03-04] MEDS: QUEtiapine FUMARATE 50MG TAB PO SCH ×2 (11:25→19:55)
[2022-03-04] MEDS: ASPIRIN 81MG CHEW TABLET PO SCH (11:25)
[2022-03-04] MEDS: FLUoxetine 10 MG CAP PO SCH (11:25)
[2022-03-04] MEDS: ATORVASTATIN 20 MG TAB PO SCH (11:26)
[2022-03-04] MEDS: GABAPENTIN 100 MG CAP PO SCH ×2 (11:26→19:55)
[2022-03-04] MEDS: SODIUM CHLORIDE NASAL 0.65% SPRAY BTL (OCEAN) SCH ×2 (11:27→19:56)
[2022-03-04] MEDS: FLUTICASONE PROP 0.05% NASAL SPRAY 16 GM (FLONASE) NARES SCH ×2 (11:27→19:55)
[2022-03-04] MEDS: carisoprodoL 350 MG TAB PO PRN (18:35)
[2022-03-04] MEDS: RAMELTEON 8 MG TAB (ROZEREM) PO SCH (19:55)
[2022-03-04] MEDS: **NOTE PATIENT COMMENT** MISC XX SCH (19:58)
[2022-03-04 20:13] VITALS: BP 116/66
[2022-03-05] MEDS: carisoprodoL 350 MG TAB PO PRN (00:52)
[2022-03-05 05:06] VITALS: BP 122/69
[2022-03-05] MEDS: metFORMIN (GLUCOPHAGE) 500MG TAB PO SCH (08:00)
[2022-03-05] MEDS: LIDOCAINE 5% (LIDODERM) PATCH TD SCH (09:00)
[2022-03-05] MEDS: FLUTICASONE PROP 0.05% NASAL SPRAY 16 GM (FLONASE) NARES SCH ×2 (10:53→20:49)
[2022-03-05] MEDS: SODIUM CHLORIDE NASAL 0.65% SPRAY BTL (OCEAN) SCH ×2 (10:53→20:49)
[2022-03-05] MEDS: FUROSEMIDE 40 MG TAB PO SCH (10:54)
[2022-03-05] MEDS: ATORVASTATIN 20 MG TAB PO SCH (10:54)
[2022-03-05] MEDS: ASPIRIN 81MG CHEW TABLET PO SCH (10:54)
[2022-03-05] MEDS: QUEtiapine FUMARATE 50MG TAB PO SCH ×2 (10:55→20:49)
[2022-03-05] MEDS: TAMSULOSIN 0.4 MG CAP PO SCH (10:55)
[2022-03-05] MEDS: GABAPENTIN 100 MG CAP PO SCH ×2 (10:55→20:48)
[2022-03-05] MEDS: FLUoxetine 10 MG CAP PO SCH (11:02)
[2022-03-05] MEDS: DOCUSATE SODIUM 100MG CAPSULE PO SCH ×2 (11:02→21:00)
[2022-03-05] MEDS: traMADol 50 MG TAB PO PRN ×2 (11:03→20:48)
[2022-03-05] MEDS: RAMELTEON 8 MG TAB (ROZEREM) PO SCH (20:48)
[2022-03-05] MEDS: **NOTE PATIENT COMMENT** MISC XX SCH (21:00)
[2022-03-06] MEDS: ACETAMINOPHEN TAB 650MG DOSE (2X325MG) PO PRN (00:17)
[2022-03-06 01:05] VITALS: BP 101/53
[2022-03-06] MEDS: carisoprodoL 350 MG TAB PO PRN (01:15)
[2022-03-06 06:00] VITALS: BP 125/72
[2022-03-06] MEDS: DOCUSATE SODIUM 100MG CAPSULE PO SCH ×2 (07:27→20:38)
[2022-03-06] MEDS: ATORVASTATIN 20 MG TAB PO SCH (07:27)
[2022-03-06] MEDS: FUROSEMIDE 40 MG TAB PO SCH (07:28)
[2022-03-06] MEDS: ASPIRIN 81MG CHEW TABLET PO SCH (07:28)
[2022-03-06] MEDS: TAMSULOSIN 0.4 MG CAP PO SCH (07:28)
[2022-03-06] MEDS: traMADol 50 MG TAB PO PRN ×2 (07:28→13:35)
[2022-03-06] MEDS: GABAPENTIN 100 MG CAP PO SCH ×2 (07:28→20:35)
[2022-03-06] MEDS: metFORMIN (GLUCOPHAGE) 500MG TAB PO SCH (07:29)
[2022-03-06] MEDS: QUEtiapine FUMARATE 50MG TAB PO SCH ×2 (07:29→20:35)
[2022-03-06] MEDS: LIDOCAINE 5% (LIDODERM) PATCH TD SCH (07:30)
[2022-03-06] MEDS: FLUTICASONE PROP 0.05% NASAL SPRAY 16 GM (FLONASE) NARES SCH ×2 (07:30→20:35)
[2022-03-06] MEDS: FLUoxetine 10 MG CAP PO SCH (07:30)
[2022-03-06] MEDS: SODIUM CHLORIDE NASAL 0.65% SPRAY BTL (OCEAN) SCH ×2 (07:30→20:35)
[2022-03-06] MEDS: OLANZapine ORAL DISINTEGRATING TAB 5MG PO PRN (13:35)
[2022-03-06] MEDS: RAMELTEON 8 MG TAB (ROZEREM) PO SCH (20:35)
[2022-03-06] MEDS: **NOTE PATIENT COMMENT** MISC XX SCH (20:39)
[2022-03-07] MEDS: carisoprodoL 350 MG TAB PO PRN ×2 (04:00→20:30)
[2022-03-07 06:34] VITALS: BP 131/83
[2022-03-07] MEDS: QUEtiapine FUMARATE 50MG TAB PO SCH ×2 (08:00→20:28)
[2022-03-07] MEDS: ASPIRIN 81MG CHEW TABLET PO SCH (08:00)
[2022-03-07] MEDS: ATORVASTATIN 20 MG TAB PO SCH (08:00)
[2022-03-07] MEDS: metFORMIN (GLUCOPHAGE) 500MG TAB PO SCH (08:00)
[2022-03-07] MEDS: DOCUSATE SODIUM 100MG CAPSULE PO SCH ×2 (08:01→20:29)
[2022-03-07] MEDS: GABAPENTIN 100 MG CAP PO SCH ×2 (08:01→20:28)
[2022-03-07] MEDS: FUROSEMIDE 40 MG TAB PO SCH (08:01)
[2022-03-07] MEDS: TAMSULOSIN 0.4 MG CAP PO SCH (08:01)
[2022-03-07] MEDS: LIDOCAINE 5% (LIDODERM) PATCH TD SCH (08:04)
[2022-03-07] MEDS: FLUTICASONE PROP 0.05% NASAL SPRAY 16 GM (FLONASE) NARES SCH ×2 (08:04→20:32)
[2022-03-07] MEDS: SODIUM CHLORIDE NASAL 0.65% SPRAY BTL (OCEAN) SCH ×2 (08:04→20:32)
[2022-03-07] MEDS: FLUoxetine 10 MG CAP PO SCH (08:08)
[2022-03-07] MEDS: traMADol 50 MG TAB PO PRN (16:15)
[2022-03-07] MEDS: RAMELTEON 8 MG TAB (ROZEREM) PO SCH (20:27)
[2022-03-07] MEDS: **NOTE PATIENT COMMENT** MISC XX SCH (21:37)
[2022-03-08] MEDS: traMADol 50 MG TAB PO PRN ×3 (02:50→17:07)
[2022-03-08] MEDS: carisoprodoL 350 MG TAB PO PRN ×2 (04:30→21:13)
[2022-03-08 06:00] VITALS: BP 132/86
[2022-03-08] MEDS: LIDOCAINE 5% (LIDODERM) PATCH TD SCH (09:00)
[2022-03-08] MEDS: ATORVASTATIN 20 MG TAB PO SCH (10:12)
[2022-03-08] MEDS: ASPIRIN 81MG CHEW TABLET PO SCH (10:12)
[2022-03-08] MEDS: DOCUSATE SODIUM 100MG CAPSULE PO SCH ×2 (10:12→20:02)
[2022-03-08] MEDS: FUROSEMIDE 40 MG TAB PO SCH (10:13)
[2022-03-08] MEDS: QUEtiapine FUMARATE 50MG TAB PO SCH ×2 (10:13→20:02)
[2022-03-08] MEDS: FLUoxetine 10 MG CAP PO SCH (10:13)
[2022-03-08] MEDS: TAMSULOSIN 0.4 MG CAP PO SCH (10:14)
[2022-03-08] MEDS: GABAPENTIN 100 MG CAP PO SCH ×2 (10:14→20:02)
[2022-03-08] MEDS: metFORMIN (GLUCOPHAGE) 500MG TAB PO SCH (10:16)
[2022-03-08] MEDS: SODIUM CHLORIDE NASAL 0.65% SPRAY BTL (OCEAN) SCH ×3 (10:17→20:05)
[2022-03-08] MEDS: FLUTICASONE PROP 0.05% NASAL SPRAY 16 GM (FLONASE) NARES SCH ×2 (10:18→20:03)
[2022-03-08 14:00] VITALS: BP 139/106
[2022-03-08] MEDS: RAMELTEON 8 MG TAB (ROZEREM) PO SCH (20:02)
[2022-03-08] MEDS: **NOTE PATIENT COMMENT** MISC XX SCH (20:07)
[2022-03-09] MEDS: traMADol 50 MG TAB PO PRN ×3 (00:53→17:30)
[2022-03-09 06:00] VITALS: BP 136/81
[2022-03-09] MEDS: DOCUSATE SODIUM 100MG CAPSULE PO SCH ×2 (07:42→19:49)
[2022-03-09] MEDS: GABAPENTIN 100 MG CAP PO SCH ×2 (07:43→19:49)
[2022-03-09] MEDS: metFORMIN (GLUCOPHAGE) 500MG TAB PO SCH (07:43)
[2022-03-09] MEDS: ATORVASTATIN 20 MG TAB PO SCH (07:43)
[2022-03-09] MEDS: FLUoxetine 10 MG CAP PO SCH (07:43)
[2022-03-09] MEDS: ASPIRIN 81MG CHEW TABLET PO SCH (07:43)
[2022-03-09] MEDS: QUEtiapine FUMARATE 50MG TAB PO SCH ×2 (07:44→19:49)
[2022-03-09] MEDS: FUROSEMIDE 40 MG TAB PO SCH (07:44)
[2022-03-09] MEDS: TAMSULOSIN 0.4 MG CAP PO SCH (07:44)
[2022-03-09] MEDS: SODIUM CHLORIDE NASAL 0.65% SPRAY BTL (OCEAN) SCH ×2 (07:45→19:49)
[2022-03-09] MEDS: LIDOCAINE 5% (LIDODERM) PATCH TD SCH (07:45)
[2022-03-09] MEDS: FLUTICASONE PROP 0.05% NASAL SPRAY 16 GM (FLONASE) NARES SCH ×2 (07:45→19:49)
[2022-03-09] MEDS: carisoprodoL 350 MG TAB PO PRN (19:49)
[2022-03-09] MEDS: RAMELTEON 8 MG TAB (ROZEREM) PO SCH (19:49)
[2022-03-09] MEDS: **NOTE PATIENT COMMENT** MISC XX SCH (19:50)
[2022-03-10] MEDS: traMADol 50 MG TAB PO PRN ×3 (02:52→20:06)
[2022-03-10 06:51] VITALS: BP 130/78
[2022-03-10] MEDS: FLUTICASONE PROP 0.05% NASAL SPRAY 16 GM (FLONASE) NARES SCH ×2 (08:06→20:05)
[2022-03-10] MEDS: metFORMIN (GLUCOPHAGE) 500MG TAB PO SCH ×2 (08:07→11:36)
[2022-03-10] MEDS: ATORVASTATIN 20 MG TAB PO SCH ×2 (08:07→11:37)
[2022-03-10] MEDS: ASPIRIN 81MG CHEW TABLET PO SCH ×2 (08:07→11:36)
[2022-03-10] MEDS: DOCUSATE SODIUM 100MG CAPSULE PO SCH ×3 (08:08→20:05)
[2022-03-10] MEDS: GABAPENTIN 100 MG CAP PO SCH ×3 (08:08→20:05)
[2022-03-10] MEDS: FUROSEMIDE 40 MG TAB PO SCH ×2 (08:08→11:37)
[2022-03-10] MEDS: FLUoxetine 10 MG CAP PO SCH ×2 (08:08→11:38)
[2022-03-10] MEDS: TAMSULOSIN 0.4 MG CAP PO SCH ×2 (08:08→11:37)
[2022-03-10] MEDS: QUEtiapine FUMARATE 50MG TAB PO SCH ×3 (08:09→20:05)
[2022-03-10] MEDS: LIDOCAINE 5% (LIDODERM) PATCH TD SCH (08:09)
[2022-03-10] MEDS: SODIUM CHLORIDE NASAL 0.65% SPRAY BTL (OCEAN) SCH ×3 (08:09→20:05)
[2022-03-10] MEDS: RAMELTEON 8 MG TAB (ROZEREM) PO SCH (20:05)
[2022-03-10] MEDS: **NOTE PATIENT COMMENT** MISC XX SCH (20:06)
[2022-03-11] MEDS: carisoprodoL 350 MG TAB PO PRN (01:00)
[2022-03-11] MEDS: traMADol 50 MG TAB PO PRN ×2 (03:26→16:16)
[2022-03-11 06:00] VITALS: BP 152/80
[2022-03-11] MEDS: LIDOCAINE 5% (LIDODERM) PATCH TD SCH (11:30)
[2022-03-11] MEDS: ATORVASTATIN 20 MG TAB PO SCH (11:39)
[2022-03-11] MEDS: DOCUSATE SODIUM 100MG CAPSULE PO SCH ×2 (11:39→20:13)
[2022-03-11] MEDS: ASPIRIN 81MG CHEW TABLET PO SCH (11:39)
[2022-03-11] MEDS: FUROSEMIDE 40 MG TAB PO SCH (11:39)
[2022-03-11] MEDS: GABAPENTIN 100 MG CAP PO SCH ×2 (11:39→20:13)
[2022-03-11] MEDS: metFORMIN (GLUCOPHAGE) 500MG TAB PO SCH (11:39)
[2022-03-11] MEDS: TAMSULOSIN 0.4 MG CAP PO SCH (11:39)
[2022-03-11] MEDS: QUEtiapine FUMARATE 50MG TAB PO SCH ×2 (11:40→20:13)
[2022-03-11] MEDS: FLUoxetine 10 MG CAP PO SCH (11:40)
[2022-03-11] MEDS: FLUTICASONE PROP 0.05% NASAL SPRAY 16 GM (FLONASE) NARES SCH ×2 (11:40→20:13)
[2022-03-11] MEDS: SODIUM CHLORIDE NASAL 0.65% SPRAY BTL (OCEAN) SCH ×2 (11:40→20:13)
[2022-03-11] MEDS: RAMELTEON 8 MG TAB (ROZEREM) PO SCH (20:13)
[2022-03-11] MEDS: **NOTE PATIENT COMMENT** MISC XX SCH (20:14)
[2022-03-12] MEDS: traMADol 50 MG TAB PO PRN ×2 (04:03→15:36)
[2022-03-12 06:00] VITALS: BP 126/66
[2022-03-12] MEDS: GABAPENTIN 100 MG CAP PO SCH ×2 (08:30→20:05)
[2022-03-12] MEDS: TAMSULOSIN 0.4 MG CAP PO SCH (08:31)
[2022-03-12] MEDS: ATORVASTATIN 20 MG TAB PO SCH (08:31)
[2022-03-12] MEDS: QUEtiapine FUMARATE 50MG TAB PO SCH ×2 (08:31→20:05)
[2022-03-12] MEDS: FUROSEMIDE 40 MG TAB PO SCH (08:31)
[2022-03-12] MEDS: ASPIRIN 81MG CHEW TABLET PO SCH (08:32)
[2022-03-12] MEDS: metFORMIN (GLUCOPHAGE) 500MG TAB PO SCH (08:32)
[2022-03-12] MEDS: DOCUSATE SODIUM 100MG CAPSULE PO SCH ×2 (08:32→20:05)
[2022-03-12] MEDS: FLUoxetine 10 MG CAP PO SCH (08:32)
[2022-03-12] MEDS: FLUTICASONE PROP 0.05% NASAL SPRAY 16 GM (FLONASE) NARES SCH ×2 (08:33→20:06)
[2022-03-12] MEDS: SODIUM CHLORIDE NASAL 0.65% SPRAY BTL (OCEAN) SCH ×2 (08:33→20:06)
[2022-03-12] MEDS: LIDOCAINE 5% (LIDODERM) PATCH TD SCH (08:42)
[2022-03-12 15:21] VITALS: BP 103/68
[2022-03-12] MEDS: carisoprodoL 350 MG TAB PO PRN (18:15)
[2022-03-12] MEDS: RAMELTEON 8 MG TAB (ROZEREM) PO SCH (20:05)
[2022-03-12] MEDS: **NOTE PATIENT COMMENT** MISC XX SCH (20:06)
[2022-03-13] MEDS: traMADol 50 MG TAB PO PRN ×4 (04:52→23:58)
[2022-03-13 05:38] VITALS: BP 137/69
[2022-03-13] MEDS: metFORMIN (GLUCOPHAGE) 500MG TAB PO SCH (08:00)
[2022-03-13] MEDS: LIDOCAINE 5% (LIDODERM) PATCH TD SCH (09:00)
[2022-03-13] MEDS: QUEtiapine FUMARATE 50MG TAB PO SCH ×2 (12:19→21:38)
[2022-03-13] MEDS: FLUoxetine 10 MG CAP PO SCH (14:28)
[2022-03-13] MEDS: DOCUSATE SODIUM 100MG CAPSULE PO SCH ×2 (14:29→21:38)
[2022-03-13] MEDS: TAMSULOSIN 0.4 MG CAP PO SCH (14:29)
[2022-03-13] MEDS: GABAPENTIN 100 MG CAP PO SCH ×2 (14:29→21:38)
[2022-03-13] MEDS: ASPIRIN 81MG CHEW TABLET PO SCH (14:29)
[2022-03-13] MEDS: ATORVASTATIN 20 MG TAB PO SCH (14:29)
[2022-03-13] MEDS: FUROSEMIDE 40 MG TAB PO SCH (14:32)
[2022-03-13] MEDS: FLUTICASONE PROP 0.05% NASAL SPRAY 16 GM (FLONASE) NARES SCH ×2 (14:33→21:37)
[2022-03-13] MEDS: SODIUM CHLORIDE NASAL 0.65% SPRAY BTL (OCEAN) SCH ×2 (14:33→21:37)
[2022-03-13] MEDS: ACETAMINOPHEN TAB 650MG DOSE (2X325MG) PO PRN (17:05)
[2022-03-13] MEDS: **NOTE PATIENT COMMENT** MISC XX SCH (21:00)
[2022-03-13] MEDS: RAMELTEON 8 MG TAB (ROZEREM) PO SCH (21:37)
[2022-03-14 06:41] VITALS: BP 134/69
[2022-03-14] MEDS: metFORMIN (GLUCOPHAGE) 500MG TAB PO SCH (07:22)
[2022-03-14] MEDS: ASPIRIN 81MG CHEW TABLET PO SCH (07:23)
[2022-03-14] MEDS: FLUoxetine 10 MG CAP PO SCH (07:23)
[2022-03-14] MEDS: GABAPENTIN 100 MG CAP PO SCH ×2 (07:23→20:07)
[2022-03-14] MEDS: ATORVASTATIN 20 MG TAB PO SCH (07:23)
[2022-03-14] MEDS: DOCUSATE SODIUM 100MG CAPSULE PO SCH ×2 (07:23→20:07)
[2022-03-14] MEDS: QUEtiapine FUMARATE 50MG TAB PO SCH ×2 (07:24→20:07)
[2022-03-14] MEDS: FUROSEMIDE 40 MG TAB PO SCH (07:24)
[2022-03-14] MEDS: TAMSULOSIN 0.4 MG CAP PO SCH (07:25)
[2022-03-14] MEDS: FLUTICASONE PROP 0.05% NASAL SPRAY 16 GM (FLONASE) NARES SCH ×2 (07:25→20:31)
[2022-03-14] MEDS: SODIUM CHLORIDE NASAL 0.65% SPRAY BTL (OCEAN) SCH ×2 (07:25→20:31)
[2022-03-14] MEDS: LIDOCAINE 5% (LIDODERM) PATCH TD SCH (09:00)
[2022-03-14] MEDS: traMADol 50 MG TAB PO PRN ×2 (14:51→20:31)
[2022-03-14] MEDS: CALCIUM CARBONATE 500 MG CHEW U/D PO PRN (18:19)
[2022-03-14] MEDS: OLANZapine ORAL DISINTEGRATING TAB 5MG PO PRN (20:07)
[2022-03-14] MEDS: RAMELTEON 8 MG TAB (ROZEREM) PO SCH (20:08)
[2022-03-14] MEDS: **NOTE PATIENT COMMENT** MISC XX SCH (21:00)
[2022-03-15 06:27] VITALS: BP 121/59
[2022-03-15] MEDS: FLUTICASONE PROP 0.05% NASAL SPRAY 16 GM (FLONASE) NARES SCH ×2 (10:07→20:52)
[2022-03-15] MEDS: SODIUM CHLORIDE NASAL 0.65% SPRAY BTL (OCEAN) SCH ×2 (10:07→20:52)
[2022-03-15] MEDS: ATORVASTATIN 20 MG TAB PO SCH (10:08)
[2022-03-15] MEDS: ASPIRIN 81MG CHEW TABLET PO SCH (10:08)
[2022-03-15] MEDS: DOCUSATE SODIUM 100MG CAPSULE PO SCH ×2 (10:08→20:53)
[2022-03-15] MEDS: metFORMIN (GLUCOPHAGE) 500MG TAB PO SCH (10:09)
[2022-03-15] MEDS: GABAPENTIN 100 MG CAP PO SCH ×2 (10:09→20:53)
[2022-03-15] MEDS: traMADol 50 MG TAB PO PRN (10:10)
[2022-03-15] MEDS: FUROSEMIDE 40 MG TAB PO SCH (10:11)
[2022-03-15] MEDS: QUEtiapine FUMARATE 50MG TAB PO SCH ×2 (10:11→20:53)
[2022-03-15] MEDS: TAMSULOSIN 0.4 MG CAP PO SCH (10:11)
[2022-03-15] MEDS: FLUoxetine 10 MG CAP PO SCH (10:16)
[2022-03-15] MEDS: LIDOCAINE 5% (LIDODERM) PATCH TD SCH (10:18)
[2022-03-15] MEDS: carisoprodoL 350 MG TAB PO PRN (15:14)
[2022-03-15] MEDS: RAMELTEON 8 MG TAB (ROZEREM) PO SCH (20:53)
[2022-03-15] MEDS: **NOTE PATIENT COMMENT** MISC XX SCH (21:00)
[2022-03-16 06:00] VITALS: BP 137/78
[2022-03-16] MEDS: metFORMIN (GLUCOPHAGE) 500MG TAB PO SCH (08:00)
[2022-03-16] MEDS: ATORVASTATIN 20 MG TAB PO SCH (09:00)
[2022-03-16] MEDS: FLUTICASONE PROP 0.05% NASAL SPRAY 16 GM (FLONASE) NARES SCH ×2 (09:00→20:22)
[2022-03-16] MEDS: FUROSEMIDE 40 MG TAB PO SCH (09:00)
[2022-03-16] MEDS: FLUoxetine 10 MG CAP PO SCH (09:00)
[2022-03-16] MEDS: LIDOCAINE 5% (LIDODERM) PATCH TD SCH (09:00)
[2022-03-16] MEDS: DOCUSATE SODIUM 100MG CAPSULE PO SCH ×2 (09:00→20:23)
[2022-03-16] MEDS: ASPIRIN 81MG CHEW TABLET PO SCH (09:00)
[2022-03-16] MEDS: SODIUM CHLORIDE NASAL 0.65% SPRAY BTL (OCEAN) SCH ×2 (09:00→20:23)
[2022-03-16] MEDS: TAMSULOSIN 0.4 MG CAP PO SCH (09:00)
[2022-03-16] MEDS: GABAPENTIN 100 MG CAP PO SCH ×2 (09:00→20:23)
[2022-03-16] MEDS: traMADol 50 MG TAB PO PRN ×2 (09:46→18:07)
[2022-03-16] MEDS: QUEtiapine FUMARATE 50MG TAB PO SCH ×2 (13:46→20:23)
[2022-03-16] MEDS: RAMELTEON 8 MG TAB (ROZEREM) PO SCH (20:23)
[2022-03-16] MEDS: **NOTE PATIENT COMMENT** MISC XX SCH (20:23)
[2022-03-17] MEDS: traMADol 50 MG TAB PO PRN ×4 (03:28→17:58)
[2022-03-17 06:00] VITALS: BP 135/80
[2022-03-17] MEDS: metFORMIN (GLUCOPHAGE) 500MG TAB PO SCH (08:00)
[2022-03-17] MEDS: ATORVASTATIN 20 MG TAB PO SCH (08:32)
[2022-03-17] MEDS: DOCUSATE SODIUM 100MG CAPSULE PO SCH ×2 (08:36→20:24)
[2022-03-17] MEDS: ASPIRIN 81MG CHEW TABLET PO SCH (08:36)
[2022-03-17] MEDS: TAMSULOSIN 0.4 MG CAP PO SCH (08:36)
[2022-03-17] MEDS: FUROSEMIDE 40 MG TAB PO SCH (08:36)
[2022-03-17] MEDS: GABAPENTIN 100 MG CAP PO SCH ×2 (08:36→20:24)
[2022-03-17] MEDS: FLUoxetine 10 MG CAP PO SCH (08:37)
[2022-03-17] MEDS: SODIUM CHLORIDE NASAL 0.65% SPRAY BTL (OCEAN) SCH ×2 (08:37→20:24)
[2022-03-17] MEDS: LIDOCAINE 5% (LIDODERM) PATCH TD SCH (08:38)
[2022-03-17] MEDS: FLUTICASONE PROP 0.05% NASAL SPRAY 16 GM (FLONASE) NARES SCH ×2 (08:38→20:24)
[2022-03-17] MEDS: QUEtiapine FUMARATE 50MG TAB PO SCH ×2 (08:39→20:25)
[2022-03-17] MEDS: RAMELTEON 8 MG TAB (ROZEREM) PO SCH (20:24)
[2022-03-17] MEDS: CALCIUM CARBONATE 500 MG CHEW U/D PO PRN (20:25)
[2022-03-17] MEDS: **NOTE PATIENT COMMENT** MISC XX SCH (20:25)
[2022-03-18] MEDS: traMADol 50 MG TAB PO PRN ×3 (01:41→21:25)
[2022-03-18 06:00] VITALS: BP 131/70
[2022-03-18] MEDS: metFORMIN (GLUCOPHAGE) 500MG TAB PO SCH (08:00)
[2022-03-18] MEDS: TAMSULOSIN 0.4 MG CAP PO SCH (08:23)
[2022-03-18] MEDS: ATORVASTATIN 20 MG TAB PO SCH (08:23)
[2022-03-18] MEDS: QUEtiapine FUMARATE 50MG TAB PO SCH ×2 (08:24→21:25)
[2022-03-18] MEDS: SODIUM CHLORIDE NASAL 0.65% SPRAY BTL (OCEAN) SCH ×2 (08:24→21:28)
[2022-03-18] MEDS: FLUTICASONE PROP 0.05% NASAL SPRAY 16 GM (FLONASE) NARES SCH ×2 (08:24→21:28)
[2022-03-18] MEDS: ASPIRIN 81MG CHEW TABLET PO SCH (08:27)
[2022-03-18] MEDS: GABAPENTIN 100 MG CAP PO SCH ×2 (08:28→21:24)
[2022-03-18] MEDS: DOCUSATE SODIUM 100MG CAPSULE PO SCH ×2 (08:28→21:00)
[2022-03-18] MEDS: LIDOCAINE 5% (LIDODERM) PATCH TD SCH (08:28)
[2022-03-18] MEDS: FLUoxetine 10 MG CAP PO SCH (08:28)
[2022-03-18] MEDS: FUROSEMIDE 40 MG TAB PO SCH (08:28)
[2022-03-18] MEDS: OLANZapine ORAL DISINTEGRATING TAB 5MG PO PRN (15:28)
[2022-03-18] MEDS: **NOTE PATIENT COMMENT** MISC XX SCH (21:00)
[2022-03-18] MEDS: RAMELTEON 8 MG TAB (ROZEREM) PO SCH (21:24)
[2022-03-19] MEDS: carisoprodoL 350 MG TAB PO PRN ×2 (00:57→23:18)
[2022-03-19 01:12] VITALS: BP 105/60
[2022-03-19 06:00] VITALS: BP 145/76
[2022-03-19] MEDS: metFORMIN (GLUCOPHAGE) 500MG TAB PO SCH (08:00)
[2022-03-19] MEDS: TAMSULOSIN 0.4 MG CAP PO SCH (09:00)
[2022-03-19] MEDS: LIDOCAINE 5% (LIDODERM) PATCH TD SCH (09:00)
[2022-03-19] MEDS: ATORVASTATIN 20 MG TAB PO SCH (09:00)
[2022-03-19] MEDS: GABAPENTIN 100 MG CAP PO SCH ×2 (09:00→21:00)
[2022-03-19] MEDS: FUROSEMIDE 40 MG TAB PO SCH (09:00)
[2022-03-19] MEDS: DOCUSATE SODIUM 100MG CAPSULE PO SCH ×2 (09:00→21:00)
[2022-03-19] MEDS: FLUoxetine 10 MG CAP PO SCH (09:00)
[2022-03-19] MEDS: FLUTICASONE PROP 0.05% NASAL SPRAY 16 GM (FLONASE) NARES SCH ×2 (09:00→23:21)
[2022-03-19] MEDS: ASPIRIN 81MG CHEW TABLET PO SCH (09:00)
[2022-03-19] MEDS: QUEtiapine FUMARATE 50MG TAB PO SCH ×2 (09:00→21:00)
[2022-03-19] MEDS: SODIUM CHLORIDE NASAL 0.65% SPRAY BTL (OCEAN) SCH ×2 (09:00→23:21)
[2022-03-19] MEDS: traMADol 50 MG TAB PO PRN (17:27)
[2022-03-19] MEDS: CALCIUM CARBONATE 500 MG CHEW U/D PO PRN (20:21)
[2022-03-19] MEDS: RAMELTEON 8 MG TAB (ROZEREM) PO SCH (20:21)
[2022-03-19] MEDS: **NOTE PATIENT COMMENT** MISC XX SCH (21:00)
[2022-03-20] MEDS: traMADol 50 MG TAB PO PRN ×2 (05:33→20:17)
[2022-03-20 06:00] VITALS: BP 144/83
[2022-03-20] MEDS: metFORMIN (GLUCOPHAGE) 500MG TAB PO SCH (08:00)
[2022-03-20] MEDS: SODIUM CHLORIDE NASAL 0.65% SPRAY BTL (OCEAN) SCH ×2 (09:00→20:16)
[2022-03-20] MEDS: FLUTICASONE PROP 0.05% NASAL SPRAY 16 GM (FLONASE) NARES SCH ×2 (09:00→20:16)
[2022-03-20] MEDS: LIDOCAINE 5% (LIDODERM) PATCH TD SCH (09:00)
[2022-03-20] MEDS: QUEtiapine FUMARATE 50MG TAB PO SCH ×2 (09:45→20:15)
[2022-03-20] MEDS: ASPIRIN 81MG CHEW TABLET PO SCH (09:45)
[2022-03-20] MEDS: GABAPENTIN 100 MG CAP PO SCH ×2 (09:45→20:15)
[2022-03-20] MEDS: DOCUSATE SODIUM 100MG CAPSULE PO SCH ×2 (09:45→20:15)
[2022-03-20] MEDS: TAMSULOSIN 0.4 MG CAP PO SCH (09:45)
[2022-03-20] MEDS: FLUoxetine 10 MG CAP PO SCH (09:45)
[2022-03-20] MEDS: FUROSEMIDE 40 MG TAB PO SCH (09:45)
[2022-03-20] MEDS: ATORVASTATIN 20 MG TAB PO SCH (09:46)
[2022-03-20] MEDS: RAMELTEON 8 MG TAB (ROZEREM) PO SCH (20:15)
[2022-03-20] MEDS: **NOTE PATIENT COMMENT** MISC XX SCH (20:15)
[2022-03-21] MEDS: carisoprodoL 350 MG TAB PO PRN (00:02)
[2022-03-21] MEDS: metFORMIN (GLUCOPHAGE) 500MG TAB PO SCH (07:52)
[2022-03-21] MEDS: LIDOCAINE 5% (LIDODERM) PATCH TD SCH (09:00)
[2022-03-21] MEDS: TAMSULOSIN 0.4 MG CAP PO SCH (09:00)
[2022-03-21] MEDS: GABAPENTIN 100 MG CAP PO SCH ×2 (09:00→20:21)
[2022-03-21] MEDS: SODIUM CHLORIDE NASAL 0.65% SPRAY BTL (OCEAN) SCH ×2 (09:00→20:21)
[2022-03-21] MEDS: FLUTICASONE PROP 0.05% NASAL SPRAY 16 GM (FLONASE) NARES SCH ×2 (09:00→20:21)
[2022-03-21] MEDS: ASPIRIN 81MG CHEW TABLET PO SCH (11:04)
[2022-03-21] MEDS: QUEtiapine FUMARATE 50MG TAB PO SCH ×2 (11:04→20:21)
[2022-03-21] MEDS: FLUoxetine 10 MG CAP PO SCH (11:05)
[2022-03-21] MEDS: FUROSEMIDE 40 MG TAB PO SCH (11:05)
[2022-03-21] MEDS: ATORVASTATIN 20 MG TAB PO SCH (11:08)
[2022-03-21] MEDS: DOCUSATE SODIUM 100MG CAPSULE PO SCH ×2 (11:08→20:21)
[2022-03-21] MEDS: traMADol 50 MG TAB PO PRN ×2 (13:26→20:22)
[2022-03-21] MEDS: RAMELTEON 8 MG TAB (ROZEREM) PO SCH (20:21)
[2022-03-21] MEDS: **NOTE PATIENT COMMENT** MISC XX SCH (20:21)
[2022-03-21] MEDS: OLANZapine ORAL DISINTEGRATING TAB 5MG PO PRN (22:57)
[2022-03-22] MEDS: LIDOCAINE 5% (LIDODERM) PATCH TD SCH (09:00)
[2022-03-22] MEDS: ASPIRIN 81MG CHEW TABLET PO SCH (10:53)
[2022-03-22] MEDS: GABAPENTIN 100 MG CAP PO SCH ×2 (10:54→20:24)
[2022-03-22] MEDS: FUROSEMIDE 40 MG TAB PO SCH (10:54)
[2022-03-22] MEDS: metFORMIN (GLUCOPHAGE) 500MG TAB PO SCH (10:54)
[2022-03-22] MEDS: ATORVASTATIN 20 MG TAB PO SCH (10:54)
[2022-03-22] MEDS: QUEtiapine FUMARATE 50MG TAB PO SCH ×2 (10:55→20:24)
[2022-03-22] MEDS: FLUoxetine 10 MG CAP PO SCH (10:56)
[2022-03-22] MEDS: TAMSULOSIN 0.4 MG CAP PO SCH (10:57)
[2022-03-22] MEDS: SODIUM CHLORIDE NASAL 0.65% SPRAY BTL (OCEAN) SCH ×2 (10:57→20:24)
[2022-03-22] MEDS: FLUTICASONE PROP 0.05% NASAL SPRAY 16 GM (FLONASE) NARES SCH ×2 (10:57→20:24)
[2022-03-22] MEDS: DOCUSATE SODIUM 100MG CAPSULE PO SCH ×2 (10:57→20:24)
[2022-03-22] MEDS: traMADol 50 MG TAB PO PRN ×2 (16:25→23:50)
[2022-03-22] MEDS: carisoprodoL 350 MG TAB PO PRN (18:44)
[2022-03-22] MEDS: **NOTE PATIENT COMMENT** MISC XX SCH (20:24)
[2022-03-22] MEDS: RAMELTEON 8 MG TAB (ROZEREM) PO SCH (20:24)
[2022-03-23] MEDS: carisoprodoL 350 MG TAB PO PRN (03:50)
[2022-03-23 03:53] VITALS: BP 122/64
[2022-03-23 06:00] VITALS: BP 144/73
[2022-03-23] MEDS: metFORMIN (GLUCOPHAGE) 500MG TAB PO SCH (08:00)
[2022-03-23] MEDS: GABAPENTIN 100 MG CAP PO SCH ×2 (08:03→20:56)
[2022-03-23] MEDS: traMADol 50 MG TAB PO PRN ×2 (08:03→14:00)
[2022-03-23] MEDS: TAMSULOSIN 0.4 MG CAP PO SCH (08:03)
[2022-03-23] MEDS: QUEtiapine FUMARATE 50MG TAB PO SCH ×2 (08:04→20:56)
[2022-03-23] MEDS: ATORVASTATIN 20 MG TAB PO SCH (08:04)
[2022-03-23] MEDS: DOCUSATE SODIUM 100MG CAPSULE PO SCH ×2 (08:05→20:55)
[2022-03-23] MEDS: SODIUM CHLORIDE NASAL 0.65% SPRAY BTL (OCEAN) SCH ×2 (08:05→20:56)
[2022-03-23] MEDS: ASPIRIN 81MG CHEW TABLET PO SCH (08:05)
[2022-03-23] MEDS: FUROSEMIDE 40 MG TAB PO SCH (08:05)
[2022-03-23] MEDS: FLUoxetine 10 MG CAP PO SCH (08:05)
[2022-03-23] MEDS: LIDOCAINE 5% (LIDODERM) PATCH TD SCH (08:06)
[2022-03-23] MEDS: FLUTICASONE PROP 0.05% NASAL SPRAY 16 GM (FLONASE) NARES SCH ×2 (08:06→20:56)
[2022-03-23] MEDS: RAMELTEON 8 MG TAB (ROZEREM) PO SCH (20:55)
[2022-03-23] MEDS: **NOTE PATIENT COMMENT** MISC XX SCH (20:57)
[2022-03-24] MEDS: traMADol 50 MG TAB PO PRN ×3 (00:24→15:40)
[2022-03-24] MEDS: metFORMIN (GLUCOPHAGE) 500MG TAB PO SCH (07:25)
[2022-03-24] MEDS: FLUoxetine 10 MG CAP PO SCH (09:00)
[2022-03-24] MEDS: FLUTICASONE PROP 0.05% NASAL SPRAY 16 GM (FLONASE) NARES SCH ×3 (09:00→20:48)
[2022-03-24] MEDS: SODIUM CHLORIDE NASAL 0.65% SPRAY BTL (OCEAN) SCH ×3 (09:00→20:48)
[2022-03-24] MEDS: LIDOCAINE 5% (LIDODERM) PATCH TD SCH (09:00)
[2022-03-24] MEDS: FUROSEMIDE 40 MG TAB PO SCH (09:00)
[2022-03-24] MEDS: TAMSULOSIN 0.4 MG CAP PO SCH (09:29)
[2022-03-24] MEDS: QUEtiapine FUMARATE 50MG TAB PO SCH ×4 (09:29→22:25)
[2022-03-24] MEDS: ASPIRIN 81MG CHEW TABLET PO SCH (09:30)
[2022-03-24] MEDS: GABAPENTIN 100 MG CAP PO SCH ×4 (09:30→22:26)
[2022-03-24] MEDS: ATORVASTATIN 20 MG TAB PO SCH (09:30)
[2022-03-24] MEDS: SENNA 8.6 MG TAB (SENOKOT) PO PRN (09:30)
[2022-03-24] MEDS: DOCUSATE SODIUM 100MG CAPSULE PO SCH ×4 (09:30→22:26)
[2022-03-24] MEDS: carisoprodoL 350 MG TAB PO PRN (17:57)
[2022-03-24] MEDS: RAMELTEON 8 MG TAB (ROZEREM) PO SCH ×3 (20:45→22:26)
[2022-03-24] MEDS: **NOTE PATIENT COMMENT** MISC XX SCH (20:46)
[2022-03-25] MEDS: traMADol 50 MG TAB PO PRN ×2 (00:05→17:30)
[2022-03-25] MEDS: metFORMIN (GLUCOPHAGE) 500MG TAB PO SCH (07:45)
[2022-03-25] MEDS: LIDOCAINE 5% (LIDODERM) PATCH TD SCH (09:00)
[2022-03-25] MEDS: ASPIRIN 81MG CHEW TABLET PO SCH (11:10)
[2022-03-25] MEDS: ATORVASTATIN 20 MG TAB PO SCH (11:11)
[2022-03-25] MEDS: QUEtiapine FUMARATE 50MG TAB PO SCH ×2 (11:11→19:58)
[2022-03-25] MEDS: FLUoxetine 10 MG CAP PO SCH (11:11)
[2022-03-25] MEDS: FLUTICASONE PROP 0.05% NASAL SPRAY 16 GM (FLONASE) NARES SCH ×2 (11:11→21:00)
[2022-03-25] MEDS: GABAPENTIN 100 MG CAP PO SCH ×2 (11:11→19:58)
[2022-03-25] MEDS: TAMSULOSIN 0.4 MG CAP PO SCH (11:11)
[2022-03-25] MEDS: FUROSEMIDE 40 MG TAB PO SCH (11:12)
[2022-03-25] MEDS: SODIUM CHLORIDE NASAL 0.65% SPRAY BTL (OCEAN) SCH ×2 (11:12→19:57)
[2022-03-25] MEDS: DOCUSATE SODIUM 100MG CAPSULE PO SCH (19:57)
[2022-03-25] MEDS: RAMELTEON 8 MG TAB (ROZEREM) PO SCH (19:58)
[2022-03-25] MEDS: **NOTE PATIENT COMMENT** MISC XX SCH (21:00)
[2022-03-26] MEDS: traMADol 50 MG TAB PO PRN ×3 (03:19→20:40)
[2022-03-26 06:00] VITALS: BP 135/81
[2022-03-26] MEDS: metFORMIN (GLUCOPHAGE) 500MG TAB PO SCH (07:18)
[2022-03-26] MEDS: ASPIRIN 81MG CHEW TABLET PO SCH (09:00)
[2022-03-26] MEDS: GABAPENTIN 100 MG CAP PO SCH ×2 (09:00→20:41)
[2022-03-26] MEDS: ATORVASTATIN 20 MG TAB PO SCH (09:00)
[2022-03-26] MEDS: QUEtiapine FUMARATE 50MG TAB PO SCH ×2 (09:00→21:20)
[2022-03-26] MEDS: DOCUSATE SODIUM 100MG CAPSULE PO SCH ×2 (09:00→20:43)
[2022-03-26] MEDS: LIDOCAINE 5% (LIDODERM) PATCH TD SCH (09:00)
[2022-03-26] MEDS: FUROSEMIDE 40 MG TAB PO SCH (09:00)
[2022-03-26] MEDS: TAMSULOSIN 0.4 MG CAP PO SCH (09:00)
[2022-03-26] MEDS: FLUoxetine 10 MG CAP PO SCH (09:00)
[2022-03-26] MEDS: FLUTICASONE PROP 0.05% NASAL SPRAY 16 GM (FLONASE) NARES SCH ×2 (11:19→21:20)
[2022-03-26] MEDS: SODIUM CHLORIDE NASAL 0.65% SPRAY BTL (OCEAN) SCH ×2 (11:19→21:20)
[2022-03-26] MEDS: CALCIUM CARBONATE 500 MG CHEW U/D PO PRN (11:19)
[2022-03-26] MEDS: RAMELTEON 8 MG TAB (ROZEREM) PO SCH (20:41)
[2022-03-26] MEDS: **NOTE PATIENT COMMENT** MISC XX SCH (20:43)
[2022-03-27] MEDS: carisoprodoL 350 MG TAB PO PRN (00:39)
[2022-03-27 05:54] VITALS: BP 152/84
[2022-03-27 08:40] VITALS: BP 134/69
[2022-03-27] MEDS: metFORMIN (GLUCOPHAGE) 500MG TAB PO SCH (08:49)
[2022-03-27] MEDS: ASPIRIN 81MG CHEW TABLET PO SCH (08:49)
[2022-03-27] MEDS: FLUTICASONE PROP 0.05% NASAL SPRAY 16 GM (FLONASE) NARES SCH ×2 (08:49→20:24)
[2022-03-27] MEDS: FLUoxetine 10 MG CAP PO SCH (08:49)
[2022-03-27] MEDS: QUEtiapine FUMARATE 50MG TAB PO SCH ×2 (08:49→20:23)
[2022-03-27] MEDS: TAMSULOSIN 0.4 MG CAP PO SCH (08:49)
[2022-03-27] MEDS: SODIUM CHLORIDE NASAL 0.65% SPRAY BTL (OCEAN) SCH ×2 (08:49→20:24)
[2022-03-27] MEDS: ATORVASTATIN 20 MG TAB PO SCH (08:50)
[2022-03-27] MEDS: DOCUSATE SODIUM 100MG CAPSULE PO SCH ×2 (08:50→20:24)
[2022-03-27] MEDS: GABAPENTIN 100 MG CAP PO SCH ×2 (08:50→20:24)
[2022-03-27] MEDS: FUROSEMIDE 40 MG TAB PO SCH (08:53)
[2022-03-27] MEDS: LIDOCAINE 5% (LIDODERM) PATCH TD SCH (08:53)
[2022-03-27] MEDS: traMADol 50 MG TAB PO PRN ×2 (13:24→23:59)
[2022-03-27] MEDS: RAMELTEON 8 MG TAB (ROZEREM) PO SCH (20:23)
[2022-03-27] MEDS: **NOTE PATIENT COMMENT** MISC XX SCH (20:24)
[2022-03-28] MEDS: carisoprodoL 350 MG TAB PO PRN (04:50)
[2022-03-28 06:02] VITALS: BP 123/68
[2022-03-28] MEDS: metFORMIN (GLUCOPHAGE) 500MG TAB PO SCH (07:29)
[2022-03-28] MEDS: SODIUM CHLORIDE NASAL 0.65% SPRAY BTL (OCEAN) SCH ×2 (09:00→20:08)
[2022-03-28] MEDS: FLUTICASONE PROP 0.05% NASAL SPRAY 16 GM (FLONASE) NARES SCH ×2 (09:00→20:08)
[2022-03-28] MEDS: LIDOCAINE 5% (LIDODERM) PATCH TD SCH (09:00)
[2022-03-28] MEDS: TAMSULOSIN 0.4 MG CAP PO SCH (10:27)
[2022-03-28] MEDS: ATORVASTATIN 20 MG TAB PO SCH (10:28)
[2022-03-28] MEDS: GABAPENTIN 100 MG CAP PO SCH ×2 (10:28→20:07)
[2022-03-28] MEDS: DOCUSATE SODIUM 100MG CAPSULE PO SCH ×2 (10:28→20:07)
[2022-03-28] MEDS: ASPIRIN 81MG CHEW TABLET PO SCH (10:28)
[2022-03-28] MEDS: QUEtiapine FUMARATE 50MG TAB PO SCH ×2 (10:28→20:07)
[2022-03-28] MEDS: FUROSEMIDE 40 MG TAB PO SCH (10:29)
[2022-03-28] MEDS: FLUoxetine 10 MG CAP PO SCH (10:31)
[2022-03-28] MEDS: traMADol 50 MG TAB PO PRN (15:02)
[2022-03-28] MEDS: CALCIUM CARBONATE 500 MG CHEW U/D PO PRN (18:32)
[2022-03-28] MEDS: RAMELTEON 8 MG TAB (ROZEREM) PO SCH (20:07)
[2022-03-28] MEDS: **NOTE PATIENT COMMENT** MISC XX SCH (20:09)
[2022-03-29] MEDS: traMADol 50 MG TAB PO PRN ×3 (00:18→19:57)
[2022-03-29 06:09] VITALS: BP 123/72
[2022-03-29] MEDS: metFORMIN (GLUCOPHAGE) 500MG TAB PO SCH (07:33)
[2022-03-29] MEDS: ATORVASTATIN 20 MG TAB PO SCH ×3 (08:15→10:34)
[2022-03-29] MEDS: GABAPENTIN 100 MG CAP PO SCH ×4 (08:15→19:57)
[2022-03-29] MEDS: TAMSULOSIN 0.4 MG CAP PO SCH ×3 (08:15→10:33)
[2022-03-29] MEDS: QUEtiapine FUMARATE 50MG TAB PO SCH ×4 (08:15→19:57)
[2022-03-29] MEDS: FUROSEMIDE 40 MG TAB PO SCH ×3 (08:16→10:33)
[2022-03-29] MEDS: FLUoxetine 10 MG CAP PO SCH ×3 (08:16→10:32)
[2022-03-29] MEDS: FLUTICASONE PROP 0.05% NASAL SPRAY 16 GM (FLONASE) NARES SCH ×4 (08:16→20:02)
[2022-03-29] MEDS: ASPIRIN 81MG CHEW TABLET PO SCH ×3 (08:17→10:32)
[2022-03-29] MEDS: SODIUM CHLORIDE NASAL 0.65% SPRAY BTL (OCEAN) SCH ×4 (08:17→20:01)
[2022-03-29] MEDS: LIDOCAINE 5% (LIDODERM) PATCH TD SCH (08:17)
[2022-03-29] MEDS: DOCUSATE SODIUM 100MG CAPSULE PO SCH ×3 (08:17→20:01)
[2022-03-29] MEDS: RAMELTEON 8 MG TAB (ROZEREM) PO SCH (19:57)
[2022-03-29] MEDS: **NOTE PATIENT COMMENT** MISC XX SCH (20:02)
[2022-03-29] MEDS: carisoprodoL 350 MG TAB PO PRN (21:54)
[2022-03-30] MEDS: traMADol 50 MG TAB PO PRN ×2 (03:43→16:29)
[2022-03-30 06:00] VITALS: BP 141/73
[2022-03-30] MEDS: metFORMIN (GLUCOPHAGE) 500MG TAB PO SCH (08:13)
[2022-03-30] MEDS: FUROSEMIDE 40 MG TAB PO SCH (08:14)
[2022-03-30] MEDS: TAMSULOSIN 0.4 MG CAP PO SCH (08:14)
[2022-03-30] MEDS: DOCUSATE SODIUM 100MG CAPSULE PO SCH ×2 (08:14→21:30)
[2022-03-30] MEDS: FLUoxetine 10 MG CAP PO SCH (08:14)
[2022-03-30] MEDS: ASPIRIN 81MG CHEW TABLET PO SCH (08:14)
[2022-03-30] MEDS: GABAPENTIN 100 MG CAP PO SCH ×2 (08:14→21:30)
[2022-03-30] MEDS: QUEtiapine FUMARATE 50MG TAB PO SCH ×2 (08:14→21:30)
[2022-03-30] MEDS: ATORVASTATIN 20 MG TAB PO SCH (08:15)
[2022-03-30] MEDS: LIDOCAINE 5% (LIDODERM) PATCH TD SCH (08:15)
[2022-03-30] MEDS: FLUTICASONE PROP 0.05% NASAL SPRAY 16 GM (FLONASE) NARES SCH ×2 (08:15→21:31)
[2022-03-30] MEDS: SODIUM CHLORIDE NASAL 0.65% SPRAY BTL (OCEAN) SCH ×2 (08:15→21:31)
[2022-03-30] MEDS: **NOTE PATIENT COMMENT** MISC XX SCH (21:00)
[2022-03-30] MEDS: RAMELTEON 8 MG TAB (ROZEREM) PO SCH (21:30)
[2022-03-31] MEDS: carisoprodoL 350 MG TAB PO PRN ×2 (00:32→23:58)
[2022-03-31] MEDS: ACETAMINOPHEN TAB 650MG DOSE (2X325MG) PO PRN ×2 (00:32→23:58)
[2022-03-31 06:00] VITALS: BP 122/75
[2022-03-31] MEDS: metFORMIN (GLUCOPHAGE) 500MG TAB PO SCH (07:27)
[2022-03-31] MEDS: GABAPENTIN 100 MG CAP PO SCH ×2 (10:05→20:24)
[2022-03-31] MEDS: ASPIRIN 81MG CHEW TABLET PO SCH (10:05)
[2022-03-31] MEDS: TAMSULOSIN 0.4 MG CAP PO SCH (10:05)
[2022-03-31] MEDS: FLUoxetine 10 MG CAP PO SCH (10:05)
[2022-03-31] MEDS: QUEtiapine FUMARATE 50MG TAB PO SCH ×2 (10:05→20:24)
[2022-03-31] MEDS: LIDOCAINE 5% (LIDODERM) PATCH TD SCH (10:06)
[2022-03-31] MEDS: FUROSEMIDE 40 MG TAB PO SCH (10:06)
[2022-03-31] MEDS: DOCUSATE SODIUM 100MG CAPSULE PO SCH ×2 (10:06→20:24)
[2022-03-31] MEDS: ATORVASTATIN 20 MG TAB PO SCH (10:06)
[2022-03-31] MEDS: FLUTICASONE PROP 0.05% NASAL SPRAY 16 GM (FLONASE) NARES SCH ×2 (10:07→20:26)
[2022-03-31] MEDS: SODIUM CHLORIDE NASAL 0.65% SPRAY BTL (OCEAN) SCH ×2 (10:07→20:26)
[2022-03-31] MEDS: traMADol 50 MG TAB PO PRN ×2 (13:49→20:25)
[2022-03-31] MEDS: RAMELTEON 8 MG TAB (ROZEREM) PO SCH (20:24)
[2022-03-31] MEDS: **NOTE PATIENT COMMENT** MISC XX SCH (21:00)
[2022-04-01] MEDS: traMADol 50 MG TAB PO PRN ×2 (02:39→08:44)
[2022-04-01 05:11] VITALS: BP 129/70
[2022-04-01] MEDS: ASPIRIN 81MG CHEW TABLET PO SCH (08:42)
[2022-04-01] MEDS: metFORMIN (GLUCOPHAGE) 500MG TAB PO SCH (08:43)
[2022-04-01] MEDS: QUEtiapine FUMARATE 50MG TAB PO SCH ×2 (08:43→22:18)
[2022-04-01] MEDS: FLUoxetine 10 MG CAP PO SCH (08:44)
[2022-04-01] MEDS: GABAPENTIN 100 MG CAP PO SCH ×2 (08:44→22:19)
[2022-04-01] MEDS: TAMSULOSIN 0.4 MG CAP PO SCH (08:45)
[2022-04-01] MEDS: ATORVASTATIN 20 MG TAB PO SCH (08:45)
[2022-04-01] MEDS: DOCUSATE SODIUM 100MG CAPSULE PO SCH ×3 (08:45→22:19)
[2022-04-01] MEDS: SODIUM CHLORIDE NASAL 0.65% SPRAY BTL (OCEAN) SCH ×2 (08:46→20:10)
[2022-04-01] MEDS: FLUTICASONE PROP 0.05% NASAL SPRAY 16 GM (FLONASE) NARES SCH ×2 (08:46→20:10)
[2022-04-01] MEDS: FUROSEMIDE 40 MG TAB PO SCH (08:46)
[2022-04-01] MEDS: LIDOCAINE 5% (LIDODERM) PATCH TD SCH (08:47)
[2022-04-01] MEDS: RAMELTEON 8 MG TAB (ROZEREM) PO SCH (22:18)
[2022-04-01] MEDS: **NOTE PATIENT COMMENT** MISC XX SCH (22:19)
[2022-04-02] MEDS: traMADol 50 MG TAB PO PRN ×2 (01:51→20:25)
[2022-04-02 06:00] VITALS: BP 167/92
[2022-04-02] MEDS: metFORMIN (GLUCOPHAGE) 500MG TAB PO SCH (08:00)
[2022-04-02] MEDS: TAMSULOSIN 0.4 MG CAP PO SCH (08:21)
[2022-04-02] MEDS: QUEtiapine FUMARATE 50MG TAB PO SCH ×2 (08:21→20:24)
[2022-04-02] MEDS: ASPIRIN 81MG CHEW TABLET PO SCH (08:21)
[2022-04-02] MEDS: FUROSEMIDE 40 MG TAB PO SCH (08:21)
[2022-04-02] MEDS: ATORVASTATIN 20 MG TAB PO SCH (08:21)
[2022-04-02] MEDS: GABAPENTIN 100 MG CAP PO SCH ×2 (08:21→20:24)
[2022-04-02] MEDS: OLANZapine ORAL DISINTEGRATING TAB 5MG PO PRN (08:21)
[2022-04-02] MEDS: DOCUSATE SODIUM 100MG CAPSULE PO SCH ×2 (08:28→20:24)
[2022-04-02] MEDS: FLUoxetine 10 MG CAP PO SCH (08:28)
[2022-04-02] MEDS: SODIUM CHLORIDE NASAL 0.65% SPRAY BTL (OCEAN) SCH ×2 (08:29→20:24)
[2022-04-02] MEDS: FLUTICASONE PROP 0.05% NASAL SPRAY 16 GM (FLONASE) NARES SCH ×2 (08:29→20:24)
[2022-04-02] MEDS: LIDOCAINE 5% (LIDODERM) PATCH TD SCH (08:44)
[2022-04-02] MEDS: carisoprodoL 350 MG TAB PO PRN ×2 (16:08→22:26)
[2022-04-02] MEDS: RAMELTEON 8 MG TAB (ROZEREM) PO SCH (20:24)
[2022-04-02] MEDS: **NOTE PATIENT COMMENT** MISC XX SCH (20:25)
[2022-04-03 06:00] VITALS: BP 146/79
[2022-04-03] MEDS: metFORMIN (GLUCOPHAGE) 500MG TAB PO SCH (07:25)
[2022-04-03] MEDS: LIDOCAINE 5% (LIDODERM) PATCH TD SCH (09:00)
[2022-04-03 09:31] VITALS: BP 159/81
[2022-04-03] MEDS: SODIUM CHLORIDE NASAL 0.65% SPRAY BTL (OCEAN) SCH ×2 (09:32→20:36)
[2022-04-03] MEDS: TAMSULOSIN 0.4 MG CAP PO SCH (09:32)
[2022-04-03] MEDS: GABAPENTIN 100 MG CAP PO SCH ×2 (09:32→20:36)
[2022-04-03] MEDS: FLUoxetine 10 MG CAP PO SCH (09:32)
[2022-04-03] MEDS: ASPIRIN 81MG CHEW TABLET PO SCH (09:32)
[2022-04-03] MEDS: FLUTICASONE PROP 0.05% NASAL SPRAY 16 GM (FLONASE) NARES SCH ×2 (09:32→20:37)
[2022-04-03] MEDS: FUROSEMIDE 40 MG TAB PO SCH (09:32)
[2022-04-03] MEDS: QUEtiapine FUMARATE 50MG TAB PO SCH ×2 (09:33→20:36)
[2022-04-03] MEDS: ATORVASTATIN 20 MG TAB PO SCH (09:33)
[2022-04-03] MEDS: DOCUSATE SODIUM 100MG CAPSULE PO SCH ×2 (09:34→20:36)
[2022-04-03] MEDS: traMADol 50 MG TAB PO PRN ×2 (09:37→23:51)
[2022-04-03] MEDS: RAMELTEON 8 MG TAB (ROZEREM) PO SCH (20:36)
[2022-04-03] MEDS: carisoprodoL 350 MG TAB PO PRN (20:36)
[2022-04-03] MEDS: **NOTE PATIENT COMMENT** MISC XX SCH (20:37)
[2022-04-04] MEDS: QUEtiapine FUMARATE 50MG TAB PO SCH ×2 (08:26→19:29)
[2022-04-04] MEDS: ATORVASTATIN 20 MG TAB PO SCH (08:27)
[2022-04-04] MEDS: TAMSULOSIN 0.4 MG CAP PO SCH (08:27)
[2022-04-04] MEDS: DOCUSATE SODIUM 100MG CAPSULE PO SCH ×2 (08:27→19:29)
[2022-04-04] MEDS: ASPIRIN 81MG CHEW TABLET PO SCH (08:27)
[2022-04-04] MEDS: GABAPENTIN 100 MG CAP PO SCH ×2 (08:28→19:30)
[2022-04-04] MEDS: metFORMIN (GLUCOPHAGE) 500MG TAB PO SCH (08:28)
[2022-04-04] MEDS: FUROSEMIDE 40 MG TAB PO SCH (08:28)
[2022-04-04] MEDS: FLUoxetine 10 MG CAP PO SCH (08:31)
[2022-04-04] MEDS: SODIUM CHLORIDE NASAL 0.65% SPRAY BTL (OCEAN) SCH ×2 (08:37→19:28)
[2022-04-04] MEDS: FLUTICASONE PROP 0.05% NASAL SPRAY 16 GM (FLONASE) NARES SCH ×2 (08:37→19:30)
[2022-04-04] MEDS: LIDOCAINE 5% (LIDODERM) PATCH TD SCH (08:55)
[2022-04-04] MEDS: traMADol 50 MG TAB PO PRN (17:26)
[2022-04-04] MEDS: ACETAMINOPHEN TAB 650MG DOSE (2X325MG) PO PRN (19:29)
[2022-04-04] MEDS: RAMELTEON 8 MG TAB (ROZEREM) PO SCH (19:29)
[2022-04-04] MEDS: **NOTE PATIENT COMMENT** MISC XX SCH (19:30)
[2022-04-05] MEDS: traMADol 50 MG TAB PO PRN ×3 (03:42→17:28)
[2022-04-05 06:00] VITALS: BP 135/73
[2022-04-05] MEDS: metFORMIN (GLUCOPHAGE) 500MG TAB PO SCH (08:00)
[2022-04-05] MEDS: LIDOCAINE 5% (LIDODERM) PATCH TD SCH (09:00)
[2022-04-05] MEDS: FUROSEMIDE 40 MG TAB PO SCH (10:23)
[2022-04-05] MEDS: DOCUSATE SODIUM 100MG CAPSULE PO SCH ×2 (10:24→19:56)
[2022-04-05] MEDS: FLUoxetine 10 MG CAP PO SCH (10:24)
[2022-04-05] MEDS: QUEtiapine FUMARATE 50MG TAB PO SCH ×2 (10:24→19:56)
[2022-04-05] MEDS: SODIUM CHLORIDE NASAL 0.65% SPRAY BTL (OCEAN) SCH ×2 (10:25→19:59)
[2022-04-05] MEDS: ATORVASTATIN 20 MG TAB PO SCH (10:25)
[2022-04-05] MEDS: FLUTICASONE PROP 0.05% NASAL SPRAY 16 GM (FLONASE) NARES SCH ×2 (10:25→19:58)
[2022-04-05] MEDS: GABAPENTIN 100 MG CAP PO SCH ×2 (10:25→19:56)
[2022-04-05] MEDS: TAMSULOSIN 0.4 MG CAP PO SCH (10:25)
[2022-04-05] MEDS: ASPIRIN 81MG CHEW TABLET PO SCH (10:26)
[2022-04-05] MEDS: RAMELTEON 8 MG TAB (ROZEREM) PO SCH (19:56)
[2022-04-05] MEDS: **NOTE PATIENT COMMENT** MISC XX SCH (20:03)
[2022-04-06] MEDS: ACETAMINOPHEN TAB 650MG DOSE (2X325MG) PO PRN (00:05)
[2022-04-06] MEDS: traMADol 50 MG TAB PO PRN (04:47)
[2022-04-06] MEDS: metFORMIN (GLUCOPHAGE) 500MG TAB PO SCH (09:00)
[2022-04-06] MEDS: LIDOCAINE 5% (LIDODERM) PATCH TD SCH ×4 (09:00→11:22)
[2022-04-06 09:20] VITALS: BP 130/77
[2022-04-06] MEDS: ASPIRIN 81MG CHEW TABLET PO SCH (09:21)
[2022-04-06] MEDS: FLUoxetine 10 MG CAP PO SCH (09:21)
[2022-04-06] MEDS: DOCUSATE SODIUM 100MG CAPSULE PO SCH ×2 (09:21→20:16)
[2022-04-06] MEDS: QUEtiapine FUMARATE 50MG TAB PO SCH ×2 (09:21→20:16)
[2022-04-06] MEDS: FUROSEMIDE 40 MG TAB PO SCH (09:22)
[2022-04-06] MEDS: ATORVASTATIN 20 MG TAB PO SCH (09:22)
[2022-04-06] MEDS: GABAPENTIN 100 MG CAP PO SCH ×2 (09:22→20:17)
[2022-04-06] MEDS: TAMSULOSIN 0.4 MG CAP PO SCH (09:23)
[2022-04-06] MEDS: FLUTICASONE PROP 0.05% NASAL SPRAY 16 GM (FLONASE) NARES SCH ×2 (09:23→20:17)
[2022-04-06] MEDS: SODIUM CHLORIDE NASAL 0.65% SPRAY BTL (OCEAN) SCH ×2 (09:23→20:17)
[2022-04-06] MEDS: carisoprodoL 350 MG TAB PO PRN (20:17)
[2022-04-06] MEDS: RAMELTEON 8 MG TAB (ROZEREM) PO SCH (20:17)
[2022-04-06] MEDS: **NOTE PATIENT COMMENT** MISC XX SCH (20:18)
[2022-04-07 06:00] VITALS: BP 135/79
[2022-04-07] MEDS: ASPIRIN 81MG CHEW TABLET PO SCH (12:19)
[2022-04-07] MEDS: ATORVASTATIN 20 MG TAB PO SCH (12:19)
[2022-04-07] MEDS: FUROSEMIDE 40 MG TAB PO SCH (12:19)
[2022-04-07] MEDS: DOCUSATE SODIUM 100MG CAPSULE PO SCH ×2 (12:19→21:01)
[2022-04-07] MEDS: metFORMIN (GLUCOPHAGE) 500MG TAB PO SCH (12:19)
[2022-04-07] MEDS: TAMSULOSIN 0.4 MG CAP PO SCH (12:19)
[2022-04-07] MEDS: GABAPENTIN 100 MG CAP PO SCH ×2 (12:19→21:01)
[2022-04-07] MEDS: LIDOCAINE 5% (LIDODERM) PATCH TD SCH (12:20)
[2022-04-07] MEDS: QUEtiapine FUMARATE 50MG TAB PO SCH ×2 (12:20→21:01)
[2022-04-07] MEDS: FLUoxetine 10 MG CAP PO SCH (12:20)
[2022-04-07] MEDS: SODIUM CHLORIDE NASAL 0.65% SPRAY BTL (OCEAN) SCH ×2 (12:20→21:01)
[2022-04-07] MEDS: FLUTICASONE PROP 0.05% NASAL SPRAY 16 GM (FLONASE) NARES SCH ×2 (12:20→21:01)
[2022-04-07] MEDS: traMADol 50 MG TAB PO PRN (15:49)
[2022-04-07] MEDS: CALCIUM CARBONATE 500 MG CHEW U/D PO PRN (18:38)
[2022-04-07] MEDS: **NOTE PATIENT COMMENT** MISC XX SCH (21:00)
[2022-04-07] MEDS: RAMELTEON 8 MG TAB (ROZEREM) PO SCH (21:01)
[2022-04-07] MEDS: carisoprodoL 350 MG TAB PO PRN (21:02)
[2022-04-08] MEDS: traMADol 50 MG TAB PO PRN ×2 (04:54→20:08)
[2022-04-08 06:15] VITALS: BP 137/79
[2022-04-08] MEDS: ATORVASTATIN 20 MG TAB PO SCH (07:53)
[2022-04-08] MEDS: ASPIRIN 81MG CHEW TABLET PO SCH (07:53)
[2022-04-08] MEDS: DOCUSATE SODIUM 100MG CAPSULE PO SCH ×2 (07:53→20:07)
[2022-04-08] MEDS: FLUoxetine 10 MG CAP PO SCH (07:54)
[2022-04-08] MEDS: TAMSULOSIN 0.4 MG CAP PO SCH (07:54)
[2022-04-08] MEDS: GABAPENTIN 100 MG CAP PO SCH ×2 (07:54→20:07)
[2022-04-08] MEDS: QUEtiapine FUMARATE 50MG TAB PO SCH ×2 (07:54→20:07)
[2022-04-08] MEDS: FLUTICASONE PROP 0.05% NASAL SPRAY 16 GM (FLONASE) NARES SCH ×2 (07:54→20:07)
[2022-04-08] MEDS: LIDOCAINE 5% (LIDODERM) PATCH TD SCH (07:55)
[2022-04-08] MEDS: SODIUM CHLORIDE NASAL 0.65% SPRAY BTL (OCEAN) SCH ×2 (07:55→20:07)
[2022-04-08] MEDS: FUROSEMIDE 40 MG TAB PO SCH (07:56)
[2022-04-08] MEDS: carisoprodoL 350 MG TAB PO PRN (07:59)
[2022-04-08] MEDS: metFORMIN (GLUCOPHAGE) 500MG TAB PO SCH (08:00)
[2022-04-08] MEDS: RAMELTEON 8 MG TAB (ROZEREM) PO SCH (20:07)
[2022-04-08] MEDS: **NOTE PATIENT COMMENT** MISC XX SCH (20:11)
[2022-04-09] MEDS: traMADol 50 MG TAB PO PRN ×3 (03:07→22:39)
[2022-04-09 06:00] VITALS: BP 134/77
[2022-04-09] MEDS: metFORMIN (GLUCOPHAGE) 500MG TAB PO SCH (07:57)
[2022-04-09] MEDS: LIDOCAINE 5% (LIDODERM) PATCH TD SCH (09:00)
[2022-04-09] MEDS: QUEtiapine FUMARATE 50MG TAB PO SCH ×2 (09:53→20:43)
[2022-04-09] MEDS: GABAPENTIN 100 MG CAP PO SCH ×2 (09:53→20:43)
[2022-04-09] MEDS: TAMSULOSIN 0.4 MG CAP PO SCH (09:53)
[2022-04-09] MEDS: FUROSEMIDE 40 MG TAB PO SCH (09:54)
[2022-04-09] MEDS: FLUoxetine 10 MG CAP PO SCH (09:54)
[2022-04-09] MEDS: DOCUSATE SODIUM 100MG CAPSULE PO SCH ×2 (09:54→20:43)
[2022-04-09] MEDS: ATORVASTATIN 20 MG TAB PO SCH (09:54)
[2022-04-09] MEDS: ASPIRIN 81MG CHEW TABLET PO SCH (09:54)
[2022-04-09] MEDS: FLUTICASONE PROP 0.05% NASAL SPRAY 16 GM (FLONASE) NARES SCH ×2 (09:55→20:43)
[2022-04-09] MEDS: SODIUM CHLORIDE NASAL 0.65% SPRAY BTL (OCEAN) SCH ×2 (09:55→20:43)
[2022-04-09] MEDS: CEPACOL LOZENGE PO PRN (19:50)
[2022-04-09] MEDS: RAMELTEON 8 MG TAB (ROZEREM) PO SCH (20:43)
[2022-04-09] MEDS: **NOTE PATIENT COMMENT** MISC XX SCH (20:44)
[2022-04-09] MEDS: guaiFENesin 200 MG TAB PO PRN (21:00)
[2022-04-10 06:00] VITALS: BP 122/73
[2022-04-10] MEDS: metFORMIN (GLUCOPHAGE) 500MG TAB PO SCH ×2 (07:33→15:53)
[2022-04-10] MEDS: LIDOCAINE 5% (LIDODERM) PATCH TD SCH (09:00)
[2022-04-10] MEDS: ASPIRIN 81MG CHEW TABLET PO SCH (09:54)
[2022-04-10] MEDS: FLUoxetine 10 MG CAP PO SCH (09:55)
[2022-04-10] MEDS: FUROSEMIDE 40 MG TAB PO SCH (09:55)
[2022-04-10] MEDS: TAMSULOSIN 0.4 MG CAP PO SCH (09:55)
[2022-04-10] MEDS: ATORVASTATIN 20 MG TAB PO SCH (09:55)
[2022-04-10] MEDS: GABAPENTIN 100 MG CAP PO SCH ×2 (09:55→20:21)
[2022-04-10] MEDS: DOCUSATE SODIUM 100MG CAPSULE PO SCH ×2 (09:55→20:21)
[2022-04-10] MEDS: QUEtiapine FUMARATE 50MG TAB PO SCH ×2 (09:56→20:50)
[2022-04-10] MEDS: FLUTICASONE PROP 0.05% NASAL SPRAY 16 GM (FLONASE) NARES SCH ×2 (09:56→20:23)
[2022-04-10] MEDS: SODIUM CHLORIDE NASAL 0.65% SPRAY BTL (OCEAN) SCH ×2 (09:56→20:23)
[2022-04-10 15:29] VITALS: BP 90/54
[2022-04-10 16:28] VITALS: BP 100/50
[2022-04-10] MEDS: INSULIN LISPRO (NovoLOG) PER UNIT SC SCH ×2 (17:30→20:48)
[2022-04-10 18:00] VITALS: BP 119/69
[2022-04-10 18:32] LABS: HEMATOCRIT 41.8 % (42.0-52.0); HEMOGLOBIN 13.8 g/dl (13.5-17.5); MEAN CORPUSCULAR HEMOGLOBIN 27.5 pg (27.0-33.0); MEAN CORPUSCULAR VOLUME 83.4 fl (80.0-96.0); PLATELET COUNT, AUTOMATED 216 10^3/uL (150-450); RED BLOOD COUNT 5.01 10^6/uL (4.30-6.10); WHITE BLOOD COUNT 5.9 10^3/uL (4.0-10.0)
[2022-04-10 18:44] LABS: BLOOD UREA NITROGEN 20 MG/DL (7-18); CALCIUM LEVEL 8.8 MG/DL (8.8-10.2); CARBON DIOXIDE LEVEL 27 MEQ/L (21-32); CHLORIDE LEVEL 98 MEQ/L (98-107); GLOMERULAR FILTRATION RATE > 60.0 (>42); GLUCOSE, FASTING 204 MG/DL (70-100); MAGNESIUM LEVEL 2.6 MG/DL (1.8-2.4); PHOSPHORUS LEVEL 3.7 MG/DL (2.5-4.9); POTASSIUM SERUM 3.9 MEQ/L (3.5-5.1); SODIUM LEVEL 132 MEQ/L (136-145)
[2022-04-10 20:00] VITALS: BP 102/80; O2SAT 94
[2022-04-10] MEDS: ENOXAPARIN 100MG/1ML SYRINGE (J1650 PER 10MG) SC SCH (20:20)
[2022-04-10] MEDS: RAMELTEON 8 MG TAB (ROZEREM) PO SCH (20:21)
[2022-04-10] MEDS: traMADol 50 MG TAB PO PRN (20:23)
[2022-04-10] MEDS: **NOTE PATIENT COMMENT** MISC XX SCH (20:24)
[2022-04-10] MEDS: guaiFENesin 200 MG TAB PO PRN (20:47)
[2022-04-10] MEDS: NS 1,000 ML IV SCH (22:25)
[2022-04-11 02:00] VITALS: BP 129/65; O2SAT 96
[2022-04-11 02:47] VITALS: O2SAT 99
[2022-04-11] MEDS: CHLORASEPTIC SPRAY MT PRN ×2 (02:54→14:43)
[2022-04-11] MEDS: NS 1,000 ML IV SCH (05:38)
[2022-04-11 06:00] VITALS: BP 108/54
[2022-04-11 06:10] LABS: HEMOGLOBIN 13.5 g/dl (13.5-17.5); MEAN CORPUSCULAR HEMOGLOBIN 27.7 pg (27.0-33.0); MEAN CORPUSCULAR HGB CONC 33.8 g/dl (32.0-36.5); MEAN CORPUSCULAR VOLUME 82.1 fl (80.0-96.0); PLATELET COUNT, AUTOMATED 205 10^3/uL (150-450); RED BLOOD COUNT 4.87 10^6/uL (4.30-6.10); WHITE BLOOD COUNT 5.8 10^3/uL (4.0-10.0)
[2022-04-11 06:41] LABS: BLOOD UREA NITROGEN 21 MG/DL (7-18); CARBON DIOXIDE LEVEL 25 MEQ/L (21-32); CHLORIDE LEVEL 100 MEQ/L (98-107); CREATININE FOR GFR 0.79 MG/DL (0.70-1.30); GLOMERULAR FILTRATION RATE > 60.0 (>42); GLUCOSE, FASTING 203 MG/DL (70-100); POTASSIUM SERUM 3.8 MEQ/L (3.5-5.1); SODIUM LEVEL 133 MEQ/L (136-145)
[2022-04-11 06:42] LABS: ALBUMIN 2.9 GM/DL (3.2-5.2); ALKALINE PHOSPHATASE 131 U/L (45-117); ALT/SGPT 27 U/L (12-78); AST/SGOT 24 U/L (7-37); BILIRUBIN,DIRECT 0.1 MG/DL (0.0-0.2); BILIRUBIN,TOTAL 0.4 MG/DL (0.2-1.0); CALCIUM LEVEL 8.4 MG/DL (8.8-10.2); MAGNESIUM LEVEL 1.7 MG/DL (1.8-2.4); PHOSPHORUS LEVEL 3.3 MG/DL (2.5-4.9); TOTAL PROTEIN 6.3 GM/DL (6.4-8.2)
[2022-04-11] MEDS: GABAPENTIN 100 MG CAP PO SCH ×2 (08:09→20:05)
[2022-04-11] MEDS: FLUoxetine 10 MG CAP PO SCH (08:09)
[2022-04-11] MEDS: TAMSULOSIN 0.4 MG CAP PO SCH (08:09)
[2022-04-11] MEDS: DOCUSATE SODIUM 100MG CAPSULE PO SCH ×2 (08:10→20:05)
[2022-04-11] MEDS: ATORVASTATIN 20 MG TAB PO SCH (08:10)
[2022-04-11] MEDS: INSULIN LISPRO (NovoLOG) PER UNIT SC SCH ×4 (08:10→21:00)
[2022-04-11] MEDS: QUEtiapine FUMARATE 50MG TAB PO SCH (08:10)
[2022-04-11] MEDS: ASPIRIN 81MG CHEW TABLET PO SCH (08:11)
[2022-04-11] MEDS: SODIUM CHLORIDE NASAL 0.65% SPRAY BTL (OCEAN) SCH ×2 (08:11→20:06)
[2022-04-11] MEDS: FLUTICASONE PROP 0.05% NASAL SPRAY 16 GM (FLONASE) NARES SCH ×2 (08:11→20:06)
[2022-04-11] MEDS: ENOXAPARIN 100MG/1ML SYRINGE (J1650 PER 10MG) SC SCH ×2 (08:11→20:04)
[2022-04-11] MEDS: LIDOCAINE 5% (LIDODERM) PATCH TD SCH (08:17)
[2022-04-11 10:00] VITALS: BP 129/72
[2022-04-11 14:00] VITALS: BP 128/69
[2022-04-11] MEDS: guaiFENesin 200 MG TAB PO PRN (14:42)
[2022-04-11] MEDS: traMADol 50 MG TAB PO PRN (14:42)
[2022-04-11] MEDS: REMDESIVIR 100 MG in NS 250 ML IV SCH (17:31)
[2022-04-11] MEDS: SODIUM CHLORIDE 0.9% INJ 10 ML SYR IV SCH (17:31)
[2022-04-11] MEDS: RAMELTEON 8 MG TAB (ROZEREM) PO SCH (20:04)
[2022-04-11] MEDS: QUEtiapine FUMARATE 25 MG TAB PO SCH (20:06)
[2022-04-11] MEDS: **NOTE PATIENT COMMENT** MISC XX SCH (21:00)
[2022-04-11] MEDS: PROMETHAZINE 25MG/ML 1ML VIAL IV PRN (21:13)
[2022-04-11 22:00] VITALS: BP 152/79
[2022-04-12 02:00] VITALS: BP 152/81
[2022-04-12] MEDS: MIRALAX *UNIT DOSE* 17GM PACKET PO PRN (02:47)
[2022-04-12] MEDS: traMADol 50 MG TAB PO PRN ×3 (02:57→20:29)
[2022-04-12] MEDS: PROMETHAZINE 25MG/ML 1ML VIAL IV PRN (05:28)
[2022-04-12 05:58] VITALS: BP 148/80
[2022-04-12 06:12] LABS: HEMATOCRIT 43.1 % (42.0-52.0); HEMOGLOBIN 14.2 g/dl (13.5-17.5); MEAN CORPUSCULAR HGB CONC 32.9 g/dl (32.0-36.5); MEAN CORPUSCULAR VOLUME 81.9 fl (80.0-96.0); PLATELET COUNT, AUTOMATED 212 10^3/uL (150-450); RED BLOOD COUNT 5.26 10^6/uL (4.30-6.10); WHITE BLOOD COUNT 6.9 10^3/uL (4.0-10.0)
[2022-04-12 06:47] LABS: ALBUMIN 3.3 GM/DL (3.2-5.2); ALKALINE PHOSPHATASE 138 U/L (45-117); ALT/SGPT 28 U/L (12-78); AST/SGOT 22 U/L (7-37); BILIRUBIN,DIRECT 0.2 MG/DL (0.0-0.2); BILIRUBIN,TOTAL 0.4 MG/DL (0.2-1.0); BLOOD UREA NITROGEN 20 MG/DL (7-18); C REACTIVE PROTEIN QUANTITATIV 3.86 MG/DL (0.00-0.30); CALCIUM LEVEL 8.7 MG/DL (8.8-10.2); CARBON DIOXIDE LEVEL 25 MEQ/L (21-32); CHLORIDE LEVEL 99 MEQ/L (98-107); CREATININE FOR GFR 0.74 MG/DL (0.70-1.30); GLOMERULAR FILTRATION RATE > 60.0 (>42); GLUCOSE, FASTING 258 MG/DL (70-100); MAGNESIUM LEVEL 1.9 MG/DL (1.8-2.4); PHOSPHORUS LEVEL 3.4 MG/DL (2.5-4.9); POTASSIUM SERUM 3.6 MEQ/L (3.5-5.1); SODIUM LEVEL 132 MEQ/L (136-145); TOTAL PROTEIN 6.3 GM/DL (6.4-8.2)
[2022-04-12] MEDS: INSULIN LISPRO (NovoLOG) PER UNIT SC SCH ×4 (07:30→20:30)
[2022-04-12] MEDS: ENOXAPARIN 100MG/1ML SYRINGE (J1650 PER 10MG) SC SCH ×2 (08:45→20:00)
[2022-04-12] MEDS: ATORVASTATIN 20 MG TAB PO SCH (08:46)
[2022-04-12] MEDS: FLUoxetine 10 MG CAP PO SCH (08:46)
[2022-04-12] MEDS: GABAPENTIN 100 MG CAP PO SCH ×2 (08:46→20:08)
[2022-04-12] MEDS: carisoprodoL 350 MG TAB PO PRN ×3 (08:46→22:58)
[2022-04-12] MEDS: ASPIRIN 81MG CHEW TABLET PO SCH (08:46)
[2022-04-12] MEDS: QUEtiapine FUMARATE 25 MG TAB PO SCH ×2 (08:47→20:08)
[2022-04-12] MEDS: SENNA 8.6 MG TAB (SENOKOT) PO PRN (08:47)
[2022-04-12] MEDS: TAMSULOSIN 0.4 MG CAP PO SCH (08:47)
[2022-04-12] MEDS: DOCUSATE SODIUM 100MG CAPSULE PO SCH ×2 (08:47→20:08)
[2022-04-12] MEDS: FLUTICASONE PROP 0.05% NASAL SPRAY 16 GM (FLONASE) NARES SCH ×2 (08:48→20:30)
[2022-04-12] MEDS: LIDOCAINE 5% (LIDODERM) PATCH TD SCH (08:48)
[2022-04-12] MEDS: SODIUM CHLORIDE NASAL 0.65% SPRAY BTL (OCEAN) SCH ×2 (08:48→20:08)
[2022-04-12 10:00] VITALS: BP 124/64
[2022-04-12 13:25] LABS: HEMOGLOBIN A1c 9.1 %
[2022-04-12 14:00] VITALS: BP 148/81
[2022-04-12] MEDS: REMDESIVIR 100 MG in NS 250 ML IV SCH (16:55)
[2022-04-12] MEDS: guaiFENesin 200 MG TAB PO PRN (16:55)
[2022-04-12 18:00] VITALS: BP 121/77
[2022-04-12] MEDS: SODIUM CHLORIDE 0.9% INJ 10 ML SYR IV SCH (18:02)
[2022-04-12] MEDS: **NOTE PATIENT COMMENT** MISC XX SCH (20:32)
[2022-04-12 20:47] VITALS: BP 123/63
[2022-04-12] MEDS: RAMELTEON 8 MG TAB (ROZEREM) PO SCH ×2 (21:00→22:59)
[2022-04-13 02:00] VITALS: BP 151/80
[2022-04-13] MEDS: ACETAMINOPHEN TAB 650MG DOSE (2X325MG) PO PRN (02:46)
[2022-04-13] MEDS: PROMETHAZINE 25MG/ML 1ML VIAL IV PRN (04:12)
[2022-04-13 05:40] VITALS: BP 154/81
[2022-04-13] MEDS: INSULIN LISPRO (NovoLOG) PER UNIT SC SCH ×4 (07:30→21:00)
[2022-04-13] MEDS: QUEtiapine FUMARATE 25 MG TAB PO SCH ×3 (09:00→21:02)
[2022-04-13] MEDS: ASPIRIN 81MG CHEW TABLET PO SCH (09:00)
[2022-04-13] MEDS: FLUTICASONE PROP 0.05% NASAL SPRAY 16 GM (FLONASE) NARES SCH ×3 (09:00→21:06)
[2022-04-13] MEDS: SODIUM CHLORIDE NASAL 0.65% SPRAY BTL (OCEAN) SCH ×2 (09:00→21:05)
[2022-04-13] MEDS: TAMSULOSIN 0.4 MG CAP PO SCH (09:00)
[2022-04-13] MEDS: LIDOCAINE 5% (LIDODERM) PATCH TD SCH (09:00)
[2022-04-13] MEDS: DOCUSATE SODIUM 100MG CAPSULE PO SCH ×3 (09:00→21:02)
[2022-04-13] MEDS: FLUoxetine 10 MG CAP PO SCH (09:00)
[2022-04-13] MEDS: ATORVASTATIN 20 MG TAB PO SCH (09:00)
[2022-04-13] MEDS: GABAPENTIN 100 MG CAP PO SCH ×3 (09:00→21:03)
[2022-04-13] MEDS: ENOXAPARIN 100MG/1ML SYRINGE (J1650 PER 10MG) SC SCH ×3 (09:14→21:03)
[2022-04-13 10:00] VITALS: BP 160/89
[2022-04-13] MEDS: metFORMIN (GLUCOPHAGE) 500MG TAB PO SCH (11:55)
[2022-04-13 17:29] VITALS: BP 146/78
[2022-04-13] MEDS: REMDESIVIR 100 MG in NS 250 ML IV SCH (18:25)
[2022-04-13] MEDS: **NOTE PATIENT COMMENT** MISC XX SCH (21:00)
[2022-04-13] MEDS: RAMELTEON 8 MG TAB (ROZEREM) PO SCH ×2 (21:00→21:02)
[2022-04-13] MEDS: SODIUM CHLORIDE 0.9% INJ 10 ML SYR IV SCH (21:01)
[2022-04-13] MEDS: carisoprodoL 350 MG TAB PO PRN (21:03)
[2022-04-13] MEDS: ONDANSETRON 4MG 2ML VIAL IV PRN (21:08)
[2022-04-13 22:25] VITALS: BP 167/81
[2022-04-14 02:00] VITALS: BP 166/90
[2022-04-14 06:00] VITALS: BP 169/68
[2022-04-14 07:24] LABS: ALBUMIN 3.1 GM/DL (3.2-5.2); ALKALINE PHOSPHATASE 118 U/L (45-117); ALT/SGPT 27 U/L (12-78); AST/SGOT 24 U/L (7-37); BILIRUBIN,TOTAL 0.5 MG/DL (0.2-1.0); BLOOD UREA NITROGEN 25 MG/DL (7-18); CALCIUM LEVEL 8.6 MG/DL (8.8-10.2); CARBON DIOXIDE LEVEL 23 MEQ/L (21-32); CHLORIDE LEVEL 98 MEQ/L (98-107); CREATININE FOR GFR 0.75 MG/DL (0.70-1.30); GLOMERULAR FILTRATION RATE > 60.0 (>42); GLUCOSE, FASTING 311 MG/DL (70-100); POTASSIUM SERUM 3.3 MEQ/L (3.5-5.1); SODIUM LEVEL 135 MEQ/L (136-145); TOTAL PROTEIN 6.9 GM/DL (6.4-8.2)
[2022-04-14] MEDS: INSULIN LISPRO (NovoLOG) PER UNIT SC SCH ×4 (07:30→21:00)
[2022-04-14] MEDS: metFORMIN (GLUCOPHAGE) 500MG TAB PO SCH (08:00)
[2022-04-14] MEDS: ENOXAPARIN 100MG/1ML SYRINGE (J1650 PER 10MG) SC SCH ×2 (08:00→20:00)
[2022-04-14] MEDS: DOCUSATE SODIUM 100MG CAPSULE PO SCH ×2 (09:00→21:00)
[2022-04-14] MEDS: ASPIRIN 81MG CHEW TABLET PO SCH (09:00)
[2022-04-14] MEDS: ATORVASTATIN 20 MG TAB PO SCH (09:00)
[2022-04-14] MEDS: SODIUM CHLORIDE NASAL 0.65% SPRAY BTL (OCEAN) SCH ×2 (09:00→21:00)
[2022-04-14] MEDS: FLUoxetine 10 MG CAP PO SCH (09:00)
[2022-04-14] MEDS: QUEtiapine FUMARATE 25 MG TAB PO SCH ×2 (09:00→21:00)
[2022-04-14] MEDS: FLUTICASONE PROP 0.05% NASAL SPRAY 16 GM (FLONASE) NARES SCH ×2 (09:00→21:00)
[2022-04-14] MEDS: GABAPENTIN 100 MG CAP PO SCH ×2 (09:00→21:00)
[2022-04-14] MEDS: LIDOCAINE 5% (LIDODERM) PATCH TD SCH (09:00)
[2022-04-14] MEDS: TAMSULOSIN 0.4 MG CAP PO SCH (09:00)
[2022-04-14] MEDS: ONDANSETRON 4MG 2ML VIAL IV PRN (09:52)
[2022-04-14 10:00] VITALS: BP 126/78
[2022-04-14] MEDS: SENNA 8.6 MG TAB (SENOKOT) PO PRN (12:24)
[2022-04-14 16:00] VITALS: BP 128/76
[2022-04-14] MEDS: **NOTE PATIENT COMMENT** MISC XX SCH (21:00)
[2022-04-14] MEDS: RAMELTEON 8 MG TAB (ROZEREM) PO SCH (21:00)
[2022-04-14 22:00] VITALS: BP 148/79
[2022-04-15] VITALS (7 sets, daily range): BP systolic 149–168; BP diastolic 78–100
[2022-04-15] MEDS: ONDANSETRON 4MG 2ML VIAL IV PRN ×2 (02:02→13:01)
[2022-04-15] MEDS: carisoprodoL 350 MG TAB PO PRN (02:03)
[2022-04-15] MEDS: INSULIN LISPRO (NovoLOG) PER UNIT SC SCH ×4 (07:30→21:38)
[2022-04-15] MEDS: ENOXAPARIN 100MG/1ML SYRINGE (J1650 PER 10MG) SC SCH ×2 (08:00→21:37)
[2022-04-15] MEDS: metFORMIN (GLUCOPHAGE) 500MG TAB PO SCH (08:00)
[2022-04-15] MEDS: ASPIRIN 81MG CHEW TABLET PO SCH (08:38)
[2022-04-15] MEDS: DOCUSATE SODIUM 100MG CAPSULE PO SCH ×2 (08:38→21:00)
[2022-04-15] MEDS: ATORVASTATIN 20 MG TAB PO SCH (08:39)
[2022-04-15] MEDS: FLUoxetine 10 MG CAP PO SCH (08:39)
[2022-04-15] MEDS: GABAPENTIN 100 MG CAP PO SCH ×2 (08:39→21:37)
[2022-04-15] MEDS: QUEtiapine FUMARATE 25 MG TAB PO SCH ×2 (08:39→21:37)
[2022-04-15] MEDS: TAMSULOSIN 0.4 MG CAP PO SCH (08:39)
[2022-04-15] MEDS: SODIUM CHLORIDE NASAL 0.65% SPRAY BTL (OCEAN) SCH ×2 (08:40→21:40)
[2022-04-15] MEDS: LIDOCAINE 5% (LIDODERM) PATCH TD SCH (08:40)
[2022-04-15] MEDS: FLUTICASONE PROP 0.05% NASAL SPRAY 16 GM (FLONASE) NARES SCH ×2 (08:40→21:00)
[2022-04-15] MEDS: traMADol 50 MG TAB PO PRN (13:03)
[2022-04-15] MEDS: **NOTE PATIENT COMMENT** MISC XX SCH (21:00)
[2022-04-15] MEDS: RAMELTEON 8 MG TAB (ROZEREM) PO SCH (21:37)
[2022-04-16 01:15] VITALS: BP 156/88
[2022-04-16 06:00] VITALS: BP 145/85
[2022-04-16] MEDS: INSULIN LISPRO (NovoLOG) PER UNIT SC SCH ×4 (07:30→20:48)
[2022-04-16] MEDS: ENOXAPARIN 100MG/1ML SYRINGE (J1650 PER 10MG) SC SCH ×2 (08:00→20:56)
[2022-04-16] MEDS: FLUoxetine 10 MG CAP PO SCH (09:00)
[2022-04-16] MEDS: GABAPENTIN 100 MG CAP PO SCH ×2 (09:00→20:56)
[2022-04-16] MEDS: SODIUM CHLORIDE NASAL 0.65% SPRAY BTL (OCEAN) SCH ×2 (09:00→20:57)
[2022-04-16] MEDS: LIDOCAINE 5% (LIDODERM) PATCH TD SCH (09:00)
[2022-04-16] MEDS: DOCUSATE SODIUM 100MG CAPSULE PO SCH ×2 (09:00→20:48)
[2022-04-16] MEDS: ATORVASTATIN 20 MG TAB PO SCH (09:00)
[2022-04-16] MEDS: ASPIRIN 81MG CHEW TABLET PO SCH (09:00)
[2022-04-16] MEDS: TAMSULOSIN 0.4 MG CAP PO SCH (09:00)
[2022-04-16] MEDS: FLUTICASONE PROP 0.05% NASAL SPRAY 16 GM (FLONASE) NARES SCH ×2 (09:00→20:58)
[2022-04-16] MEDS: QUEtiapine FUMARATE 25 MG TAB PO SCH ×2 (09:53→20:57)
[2022-04-16] MEDS: metFORMIN (GLUCOPHAGE) 500MG TAB PO SCH ×2 (09:53→18:00)
[2022-04-16] MEDS: traMADol 50 MG TAB PO PRN (09:54)
[2022-04-16 10:00] VITALS: BP 145/84
[2022-04-16] MEDS: NS 1,000 ML IV SCH ×2 (11:55→23:46)
[2022-04-16 14:00] VITALS: BP 143/83
[2022-04-16 18:00] VITALS: BP 164/90
[2022-04-16 18:44] LABS: ALBUMIN 2.9 GM/DL (3.2-5.2); ALKALINE PHOSPHATASE 98 U/L (45-117); ALT/SGPT 20 U/L (12-78); AST/SGOT 19 U/L (7-37); BILIRUBIN,TOTAL 0.7 MG/DL (0.2-1.0); BLOOD UREA NITROGEN 20 MG/DL (7-18); CALCIUM LEVEL 8.7 MG/DL (8.8-10.2); CARBON DIOXIDE LEVEL 19 MEQ/L (21-32); CHLORIDE LEVEL 98 MEQ/L (98-107); CREATININE FOR GFR 0.73 MG/DL (0.70-1.30); GLOMERULAR FILTRATION RATE > 60.0 (>42); GLUCOSE, FASTING 248 MG/DL (70-100); POTASSIUM SERUM 3.4 MEQ/L (3.5-5.1); SODIUM LEVEL 131 MEQ/L (136-145); TOTAL PROTEIN 5.8 GM/DL (6.4-8.2)
[2022-04-16] MEDS: **NOTE PATIENT COMMENT** MISC XX SCH (20:49)
[2022-04-16] MEDS: RAMELTEON 8 MG TAB (ROZEREM) PO SCH (20:56)
[2022-04-17] VITALS: BP 145/86
[2022-04-17 04:00] VITALS: BP 163/81
[2022-04-17 06:16] LABS: HEMATOCRIT 41.7 % (42.0-52.0); HEMOGLOBIN 14.4 g/dl (13.5-17.5); MEAN CORPUSCULAR HGB CONC 34.5 g/dl (32.0-36.5); MEAN CORPUSCULAR VOLUME 81.1 fl (80.0-96.0); PLATELET COUNT, AUTOMATED 225 10^3/uL (150-450); RED BLOOD COUNT 5.14 10^6/uL (4.30-6.10); WHITE BLOOD COUNT 5.9 10^3/uL (4.0-10.0)
[2022-04-17 07:04] LABS: ALBUMIN 2.6 GM/DL (3.2-5.2); ALKALINE PHOSPHATASE 88 U/L (45-117); ALT/SGPT 17 U/L (12-78); AST/SGOT 24 U/L (7-37); BILIRUBIN,TOTAL 0.8 MG/DL (0.2-1.0); BLOOD UREA NITROGEN 14 MG/DL (7-18); CALCIUM LEVEL 7.8 MG/DL (8.8-10.2); CARBON DIOXIDE LEVEL 25 MEQ/L (21-32); CHLORIDE LEVEL 101 MEQ/L (98-107); CREATININE FOR GFR 0.47 MG/DL (0.70-1.30); GLOMERULAR FILTRATION RATE > 60.0 (>42); GLUCOSE, FASTING 216 MG/DL (70-100); POTASSIUM SERUM 2.9 MEQ/L (3.5-5.1); SODIUM LEVEL 134 MEQ/L (136-145); TOTAL PROTEIN 5.9 GM/DL (6.4-8.2)
[2022-04-17] MEDS: metFORMIN (GLUCOPHAGE) 500MG TAB PO SCH ×3 (08:00→17:22)
[2022-04-17] MEDS: ENOXAPARIN 100MG/1ML SYRINGE (J1650 PER 10MG) SC SCH ×2 (08:00→20:29)
[2022-04-17] MEDS: TAMSULOSIN 0.4 MG CAP PO SCH ×2 (08:32→09:00)
[2022-04-17] MEDS: ASPIRIN 81MG CHEW TABLET PO SCH ×2 (08:32→09:00)
[2022-04-17] MEDS: FLUoxetine 10 MG CAP PO SCH ×2 (08:32→09:00)
[2022-04-17] MEDS: GABAPENTIN 100 MG CAP PO SCH ×3 (08:32→20:28)
[2022-04-17] MEDS: ATORVASTATIN 20 MG TAB PO SCH ×2 (08:32→09:00)
[2022-04-17] MEDS: DOCUSATE SODIUM 100MG CAPSULE PO SCH ×3 (08:32→19:34)
[2022-04-17] MEDS: QUEtiapine FUMARATE 25 MG TAB PO SCH ×3 (08:32→20:28)
[2022-04-17] MEDS: LIDOCAINE 5% (LIDODERM) PATCH TD SCH ×2 (08:33→09:00)
[2022-04-17] MEDS: INSULIN LISPRO (NovoLOG) PER UNIT SC SCH ×4 (08:33→21:00)
[2022-04-17] MEDS: SODIUM CHLORIDE NASAL 0.65% SPRAY BTL (OCEAN) SCH ×3 (08:34→20:29)
[2022-04-17] MEDS: FLUTICASONE PROP 0.05% NASAL SPRAY 16 GM (FLONASE) NARES SCH ×3 (08:34→20:29)
[2022-04-17] MEDS: NS 1,000 ML IV SCH ×2 (11:33→20:31)
[2022-04-17 15:00] VITALS: BP 148/80
[2022-04-17 15:42] LABS: RBC, URINE 20-30 /hpf (0-3); SQUAMOUS EPITHELIAL CELL URINE NONE SEEN /hpf (SMALL AMT)
[2022-04-17 15:43] LABS: AMORPHOUS SEDIMENT, URINE LARGE AMOUNT (NEGATIVE); HYALINE CAST, URINE NONE SEEN /lpf (0-1); MUCUS, URINE SMALL AMOUNT (NEGATIVE)
[2022-04-17 15:44] LABS: BACTERIA, URINE MOD AMOUNT
[2022-04-17] MEDS: ONDANSETRON 4MG 2ML VIAL IV PRN (17:18)
[2022-04-17] MEDS: **NOTE PATIENT COMMENT** MISC XX SCH (19:33)
[2022-04-17] MEDS: RAMELTEON 8 MG TAB (ROZEREM) PO SCH (20:28)
[2022-04-17] MEDS: KCL 10MEQ/100ML SWI (KRUN) 10 MEQ in IV 1 EA IV SCH ×3 (20:31→22:45)
[2022-04-17 22:00] VITALS: BP 154/84
[2022-04-18] MEDS: KCL 10MEQ/100ML SWI (KRUN) 10 MEQ in IV 1 EA IV SCH ×2
[2022-04-18 06:00] VITALS: BP 168/91
[2022-04-18 06:45] LABS: HEMATOCRIT 43.2 % (42.0-52.0); MEAN CORPUSCULAR HGB CONC 34.7 g/dl (32.0-36.5); MEAN CORPUSCULAR VOLUME 80.7 fl (80.0-96.0); PLATELET COUNT, AUTOMATED 244 10^3/uL (150-450); RED BLOOD COUNT 5.35 10^6/uL (4.30-6.10); WHITE BLOOD COUNT 6.1 10^3/uL (4.0-10.0)
[2022-04-18 07:19] LABS: ALBUMIN 2.7 GM/DL (3.2-5.2); ALKALINE PHOSPHATASE 95 U/L (45-117); ALT/SGPT 18 U/L (12-78); AST/SGOT 17 U/L (7-37); BILIRUBIN,TOTAL 0.7 MG/DL (0.2-1.0); BLOOD UREA NITROGEN 15 MG/DL (7-18); CALCIUM LEVEL 8.2 MG/DL (8.8-10.2); CARBON DIOXIDE LEVEL 25 MEQ/L (21-32); CHLORIDE LEVEL 97 MEQ/L (98-107); CREATININE FOR GFR 0.62 MG/DL (0.70-1.30); GLOMERULAR FILTRATION RATE > 60.0 (>42); GLUCOSE, FASTING 201 MG/DL (70-100); POTASSIUM SERUM 3.5 MEQ/L (3.5-5.1); SODIUM LEVEL 132 MEQ/L (136-145); TOTAL PROTEIN 5.5 GM/DL (6.4-8.2)
[2022-04-18] MEDS: ENOXAPARIN 100MG/1ML SYRINGE (J1650 PER 10MG) SC SCH ×2 (08:00→20:00)
[2022-04-18] MEDS: LIDOCAINE 5% (LIDODERM) PATCH TD SCH (09:00)
[2022-04-18] MEDS: ATORVASTATIN 20 MG TAB PO SCH (09:00)
[2022-04-18] MEDS: FLUTICASONE PROP 0.05% NASAL SPRAY 16 GM (FLONASE) NARES SCH ×2 (09:00→21:00)
[2022-04-18] MEDS: GABAPENTIN 100 MG CAP PO SCH ×2 (09:00→21:00)
[2022-04-18] MEDS: DOCUSATE SODIUM 100MG CAPSULE PO SCH ×2 (09:00→21:00)
[2022-04-18] MEDS: FLUoxetine 10 MG CAP PO SCH (09:00)
[2022-04-18] MEDS: SODIUM CHLORIDE NASAL 0.65% SPRAY BTL (OCEAN) SCH ×2 (09:00→21:00)
[2022-04-18] MEDS: INSULIN LISPRO (NovoLOG) PER UNIT SC SCH ×4 (10:05→20:34)
[2022-04-18] MEDS: ASPIRIN 81MG CHEW TABLET PO SCH (10:06)
[2022-04-18] MEDS: metFORMIN (GLUCOPHAGE) 500MG TAB PO SCH ×2 (10:06→18:00)
[2022-04-18] MEDS: KCL 20MEQ in NS 1000ML 1,000 ML IV SCH ×2 (10:06→17:55)
[2022-04-18] MEDS: QUEtiapine FUMARATE 25 MG TAB PO SCH ×2 (10:09→21:00)
[2022-04-18] MEDS: TAMSULOSIN 0.4 MG CAP PO SCH (10:09)
[2022-04-18 14:47] VITALS: BP 146/62
[2022-04-18] MEDS: RAMELTEON 8 MG TAB (ROZEREM) PO SCH (21:00)
[2022-04-18] MEDS: **NOTE PATIENT COMMENT** MISC XX SCH (21:00)
[2022-04-18 22:00] VITALS: BP 136/74
[2022-04-19] MEDS: traMADol 50 MG TAB PO PRN ×3 (00:18→20:07)
[2022-04-19] MEDS: carisoprodoL 350 MG TAB PO PRN ×2 (02:41→13:05)
[2022-04-19 06:00] VITALS: BP 141/86
[2022-04-19 06:22] LABS: HEMATOCRIT 41.4 % (42.0-52.0); MEAN CORPUSCULAR HEMOGLOBIN 27.3 pg (27.0-33.0); MEAN CORPUSCULAR HGB CONC 33.8 g/dl (32.0-36.5); MEAN CORPUSCULAR VOLUME 80.7 fl (80.0-96.0); PLATELET COUNT, AUTOMATED 273 10^3/uL (150-450); RED BLOOD COUNT 5.13 10^6/uL (4.30-6.10); WHITE BLOOD COUNT 6.3 10^3/uL (4.0-10.0)
[2022-04-19 06:54] LABS: ALBUMIN 2.4 GM/DL (3.2-5.2); ALKALINE PHOSPHATASE 98 U/L (45-117); ALT/SGPT 18 U/L (12-78); AST/SGOT 13 U/L (7-37); BILIRUBIN,TOTAL 0.6 MG/DL (0.2-1.0); BLOOD UREA NITROGEN 15 MG/DL (7-18); CARBON DIOXIDE LEVEL 21 MEQ/L (21-32); CHLORIDE LEVEL 99 MEQ/L (98-107); CREATININE FOR GFR 0.48 MG/DL (0.70-1.30); GLOMERULAR FILTRATION RATE > 60.0 (>42); GLUCOSE, FASTING 229 MG/DL (70-100); POTASSIUM SERUM 3.2 MEQ/L (3.5-5.1); SODIUM LEVEL 130 MEQ/L (136-145); TOTAL PROTEIN 5.3 GM/DL (6.4-8.2)
[2022-04-19] MEDS: INSULIN LISPRO (NovoLOG) PER UNIT SC SCH ×4 (07:30→21:00)
[2022-04-19] MEDS: metFORMIN (GLUCOPHAGE) 500MG TAB PO SCH ×2 (08:00→18:00)
[2022-04-19] MEDS: ENOXAPARIN 100MG/1ML SYRINGE (J1650 PER 10MG) SC SCH ×2 (08:00→20:08)
[2022-04-19] MEDS: LIDOCAINE 5% (LIDODERM) PATCH TD SCH (09:00)
[2022-04-19] MEDS: DOCUSATE SODIUM 100MG CAPSULE PO SCH ×2 (09:00→20:08)
[2022-04-19] MEDS: ATORVASTATIN 20 MG TAB PO SCH (10:19)
[2022-04-19] MEDS: GABAPENTIN 100 MG CAP PO SCH ×2 (10:19→20:08)
[2022-04-19] MEDS: POTASSIUM CHLORIDE 10MEQ SR TABLET PO SCH (10:19)
[2022-04-19] MEDS: TAMSULOSIN 0.4 MG CAP PO SCH (10:19)
[2022-04-19] MEDS: ASPIRIN 81MG CHEW TABLET PO SCH (10:19)
[2022-04-19] MEDS: QUEtiapine FUMARATE 25 MG TAB PO SCH ×2 (10:20→20:08)
[2022-04-19] MEDS: FLUoxetine 10 MG CAP PO SCH (10:20)
[2022-04-19] MEDS: SODIUM CHLORIDE NASAL 0.65% SPRAY BTL (OCEAN) SCH ×2 (10:20→20:14)
[2022-04-19] MEDS: FLUTICASONE PROP 0.05% NASAL SPRAY 16 GM (FLONASE) NARES SCH ×2 (10:21→20:14)
[2022-04-19] MEDS: KCL 20MEQ in NS 1000ML 1,000 ML IV SCH ×2 (13:55→23:55)
[2022-04-19 14:00] VITALS: BP 141/86
[2022-04-19] MEDS: RAMELTEON 8 MG TAB (ROZEREM) PO SCH (20:08)
[2022-04-19] MEDS: **NOTE PATIENT COMMENT** MISC XX SCH (21:00)
[2022-04-19 22:00] VITALS: BP 133/86
[2022-04-20] MEDS: carisoprodoL 350 MG TAB PO PRN ×2 (02:14→21:05)
[2022-04-20 02:15] VITALS: BP 139/86
[2022-04-20] MEDS: traMADol 50 MG TAB PO PRN ×2 (05:31→18:00)
[2022-04-20 06:00] VITALS: BP 140/86
[2022-04-20] MEDS: metFORMIN (GLUCOPHAGE) 500MG TAB PO SCH ×2 (08:00→17:33)
[2022-04-20 08:55] LABS: HEMATOCRIT 42.5 % (42.0-52.0); MEAN CORPUSCULAR HEMOGLOBIN 27.2 pg (27.0-33.0); MEAN CORPUSCULAR HGB CONC 32.9 g/dl (32.0-36.5); MEAN CORPUSCULAR VOLUME 82.7 fl (80.0-96.0); PLATELET COUNT, AUTOMATED 268 10^3/uL (150-450); RED BLOOD COUNT 5.14 10^6/uL (4.30-6.10); WHITE BLOOD COUNT 6.1 10^3/uL (4.0-10.0)
[2022-04-20 08:56] VITALS: BP 145/84
[2022-04-20] MEDS: KCL 20MEQ in NS 1000ML 1,000 ML IV SCH (08:57)
[2022-04-20] MEDS: LIDOCAINE 5% (LIDODERM) PATCH TD SCH (08:57)
[2022-04-20] MEDS: INSULIN LISPRO (NovoLOG) PER UNIT SC SCH ×4 (08:57→20:11)
[2022-04-20] MEDS: TAMSULOSIN 0.4 MG CAP PO SCH ×2 (08:58→09:00)
[2022-04-20] MEDS: POTASSIUM CHLORIDE 10MEQ SR TABLET PO SCH (08:58)
[2022-04-20] MEDS: DOCUSATE SODIUM 100MG CAPSULE PO SCH ×3 (08:58→20:10)
[2022-04-20] MEDS: ATORVASTATIN 20 MG TAB PO SCH (08:58)
[2022-04-20] MEDS: ASPIRIN 81MG CHEW TABLET PO SCH (08:58)
[2022-04-20] MEDS: FLUoxetine 10 MG CAP PO SCH ×2 (08:58→09:00)
[2022-04-20] MEDS: GABAPENTIN 100 MG CAP PO SCH ×3 (08:58→20:10)
[2022-04-20] MEDS: QUEtiapine FUMARATE 25 MG TAB PO SCH ×2 (08:58→20:10)
[2022-04-20] MEDS: FLUTICASONE PROP 0.05% NASAL SPRAY 16 GM (FLONASE) NARES SCH ×2 (08:58→20:12)
[2022-04-20] MEDS: ENOXAPARIN 100MG/1ML SYRINGE (J1650 PER 10MG) SC SCH ×2 (09:03→20:11)
[2022-04-20] MEDS: SODIUM CHLORIDE NASAL 0.65% SPRAY BTL (OCEAN) SCH ×2 (09:03→20:12)
[2022-04-20 09:24] LABS: ALBUMIN 2.6 GM/DL (3.2-5.2); ALKALINE PHOSPHATASE 101 U/L (45-117); ALT/SGPT 17 U/L (12-78); AST/SGOT 17 U/L (7-37); BILIRUBIN,TOTAL 0.7 MG/DL (0.2-1.0); BLOOD UREA NITROGEN 12 MG/DL (7-18); CALCIUM LEVEL 8.5 MG/DL (8.8-10.2); CARBON DIOXIDE LEVEL 26 MEQ/L (21-32); CHLORIDE LEVEL 98 MEQ/L (98-107); CREATININE FOR GFR 0.61 MG/DL (0.70-1.30); GLOMERULAR FILTRATION RATE > 60.0 (>42); GLUCOSE, FASTING 214 MG/DL (70-100); POTASSIUM SERUM 3.8 MEQ/L (3.5-5.1); SODIUM LEVEL 132 MEQ/L (136-145); TOTAL PROTEIN 5.4 GM/DL (6.4-8.2)
[2022-04-20 14:00] VITALS: BP 143/82
[2022-04-20] MEDS: RAMELTEON 8 MG TAB (ROZEREM) PO SCH (20:10)
[2022-04-20] MEDS: **NOTE PATIENT COMMENT** MISC XX SCH (20:15)
[2022-04-20 21:09] VITALS: BP 143/84
[2022-04-21 06:00] VITALS: BP 148/81
[2022-04-21] MEDS: INSULIN LISPRO (NovoLOG) PER UNIT SC SCH ×4 (07:18→20:09)
[2022-04-21] MEDS: metFORMIN (GLUCOPHAGE) 500MG TAB PO SCH ×2 (07:18→18:00)
[2022-04-21] MEDS: DOCUSATE SODIUM 100MG CAPSULE PO SCH ×3 (08:21→21:00)
[2022-04-21] MEDS: QUEtiapine FUMARATE 25 MG TAB PO SCH ×3 (08:21→21:00)
[2022-04-21] MEDS: ATORVASTATIN 20 MG TAB PO SCH (08:21)
[2022-04-21] MEDS: TAMSULOSIN 0.4 MG CAP PO SCH (08:21)
[2022-04-21] MEDS: ASPIRIN 81MG CHEW TABLET PO SCH (08:21)
[2022-04-21] MEDS: ENOXAPARIN 100MG/1ML SYRINGE (J1650 PER 10MG) SC SCH ×2 (08:22→20:08)
[2022-04-21] MEDS: FLUTICASONE PROP 0.05% NASAL SPRAY 16 GM (FLONASE) NARES SCH ×2 (08:22→20:10)
[2022-04-21] MEDS: FLUoxetine 10 MG CAP PO SCH (08:22)
[2022-04-21] MEDS: LIDOCAINE 5% (LIDODERM) PATCH TD SCH (08:22)
[2022-04-21] MEDS: POTASSIUM CHLORIDE 10MEQ SR TABLET PO SCH (08:22)
[2022-04-21] MEDS: GABAPENTIN 100 MG CAP PO SCH ×3 (08:22→21:00)
[2022-04-21] MEDS: SODIUM CHLORIDE NASAL 0.65% SPRAY BTL (OCEAN) SCH ×2 (08:23→20:10)
[2022-04-21] MEDS: traMADol 50 MG TAB PO PRN (12:50)
[2022-04-21] MEDS: ONDANSETRON 4MG ORAL DISINTEGRATING TAB PO PRN (15:26)
[2022-04-21] MEDS: carisoprodoL 350 MG TAB PO PRN (20:08)
[2022-04-21] MEDS: RAMELTEON 8 MG TAB (ROZEREM) PO SCH ×2 (20:08→21:00)
[2022-04-21] MEDS: **NOTE PATIENT COMMENT** MISC XX SCH (20:11)
[2022-04-22 06:00] VITALS: BP 151/84
[2022-04-22 06:12] LABS: HEMOGLOBIN 13.7 g/dl (13.5-17.5); MEAN CORPUSCULAR HEMOGLOBIN 27.5 pg (27.0-33.0); MEAN CORPUSCULAR HGB CONC 34.3 g/dl (32.0-36.5); MEAN CORPUSCULAR VOLUME 80.2 fl (80.0-96.0); PLATELET COUNT, AUTOMATED 291 10^3/uL (150-450); RED BLOOD COUNT 4.99 10^6/uL (4.30-6.10); WHITE BLOOD COUNT 6.5 10^3/uL (4.0-10.0)
[2022-04-22 06:51] LABS: ALBUMIN 2.4 GM/DL (3.2-5.2); ALKALINE PHOSPHATASE 123 U/L (45-117); ALT/SGPT 21 U/L (12-78); AST/SGOT 19 U/L (7-37); BILIRUBIN,TOTAL 0.6 MG/DL (0.2-1.0); BLOOD UREA NITROGEN 11 MG/DL (7-18); CALCIUM LEVEL 8.4 MG/DL (8.8-10.2); CARBON DIOXIDE LEVEL 22 MEQ/L (21-32); CHLORIDE LEVEL 97 MEQ/L (98-107); CREATININE FOR GFR 0.53 MG/DL (0.70-1.30); GLOMERULAR FILTRATION RATE > 60.0 (>42); GLUCOSE, FASTING 256 MG/DL (70-100); POTASSIUM SERUM 3.9 MEQ/L (3.5-5.1); SODIUM LEVEL 128 MEQ/L (136-145); TOTAL PROTEIN 5.5 GM/DL (6.4-8.2)
[2022-04-22] MEDS: ENOXAPARIN 100MG/1ML SYRINGE (J1650 PER 10MG) SC SCH ×2 (08:00→20:27)
[2022-04-22] MEDS: GABAPENTIN 100 MG CAP PO SCH ×2 (08:44→20:28)
[2022-04-22] MEDS: ASPIRIN 81MG CHEW TABLET PO SCH (08:44)
[2022-04-22] MEDS: TAMSULOSIN 0.4 MG CAP PO SCH (08:45)
[2022-04-22] MEDS: metFORMIN (GLUCOPHAGE) 500MG TAB PO SCH ×2 (08:45→18:00)
[2022-04-22] MEDS: INSULIN LISPRO (NovoLOG) PER UNIT SC SCH ×4 (08:45→20:29)
[2022-04-22] MEDS: QUEtiapine FUMARATE 25 MG TAB PO SCH ×2 (08:46→20:28)
[2022-04-22] MEDS: ATORVASTATIN 20 MG TAB PO SCH (08:52)
[2022-04-22] MEDS: DOCUSATE SODIUM 100MG CAPSULE PO SCH ×2 (08:52→20:28)
[2022-04-22] MEDS: FLUTICASONE PROP 0.05% NASAL SPRAY 16 GM (FLONASE) NARES SCH ×2 (08:53→20:29)
[2022-04-22] MEDS: FLUoxetine 10 MG CAP PO SCH (08:53)
[2022-04-22] MEDS: POTASSIUM CHLORIDE 10MEQ SR TABLET PO SCH (08:53)
[2022-04-22] MEDS: SODIUM CHLORIDE NASAL 0.65% SPRAY BTL (OCEAN) SCH ×2 (08:53→20:29)
[2022-04-22] MEDS: LIDOCAINE 5% (LIDODERM) PATCH TD SCH (08:53)
[2022-04-22] MEDS: traMADol 50 MG TAB PO PRN (09:58)
[2022-04-22] MEDS: carisoprodoL 350 MG TAB PO PRN ×2 (09:59→20:27)
[2022-04-22] MEDS: ACETAMINOPHEN TAB 650MG DOSE (2X325MG) PO PRN (14:51)
[2022-04-22] MEDS: SODIUM CHLORIDE 1 GM TAB PO SCH (20:27)
[2022-04-22] MEDS: RAMELTEON 8 MG TAB (ROZEREM) PO SCH (20:28)
[2022-04-22] MEDS: **NOTE PATIENT COMMENT** MISC XX SCH (20:29)
[2022-04-23 06:00] VITALS: BP 135/71
[2022-04-23] MEDS: ATORVASTATIN 20 MG TAB PO SCH (08:27)
[2022-04-23] MEDS: DOCUSATE SODIUM 100MG CAPSULE PO SCH ×2 (08:27→19:43)
[2022-04-23] MEDS: metFORMIN (GLUCOPHAGE) 500MG TAB PO SCH ×2 (08:28→18:00)
[2022-04-23] MEDS: ASPIRIN 81MG CHEW TABLET PO SCH (08:29)
[2022-04-23] MEDS: ENOXAPARIN 100MG/1ML SYRINGE (J1650 PER 10MG) SC SCH ×2 (08:29→19:50)
[2022-04-23] MEDS: INSULIN LISPRO (NovoLOG) PER UNIT SC SCH ×4 (08:29→19:40)
[2022-04-23] MEDS: FLUoxetine 10 MG CAP PO SCH (08:30)
[2022-04-23] MEDS: QUEtiapine FUMARATE 25 MG TAB PO SCH ×2 (08:30→19:39)
[2022-04-23] MEDS: GABAPENTIN 100 MG CAP PO SCH ×2 (08:31→19:39)
[2022-04-23] MEDS: TAMSULOSIN 0.4 MG CAP PO SCH (08:31)
[2022-04-23] MEDS: SODIUM CHLORIDE 1 GM TAB PO SCH ×2 (08:32→19:48)
[2022-04-23] MEDS: POTASSIUM CHLORIDE 10MEQ SR TABLET PO SCH (08:33)
[2022-04-23] MEDS: LIDOCAINE 5% (LIDODERM) PATCH TD SCH (08:33)
[2022-04-23] MEDS: SODIUM CHLORIDE NASAL 0.65% SPRAY BTL (OCEAN) SCH ×2 (08:33→19:41)
[2022-04-23] MEDS: FLUTICASONE PROP 0.05% NASAL SPRAY 16 GM (FLONASE) NARES SCH ×2 (08:33→19:41)
[2022-04-23] MEDS: traMADol 50 MG TAB PO PRN (10:09)
[2022-04-23] MEDS: carisoprodoL 350 MG TAB PO PRN ×2 (12:20→19:47)
[2022-04-23] MEDS: RAMELTEON 8 MG TAB (ROZEREM) PO SCH (19:39)
[2022-04-23] MEDS: **NOTE PATIENT COMMENT** MISC XX SCH (19:42)
[2022-04-24] MEDS: traMADol 50 MG TAB PO PRN (03:14)
[2022-04-24 05:56] LABS: HEMATOCRIT 40.2 % (42.0-52.0); MEAN CORPUSCULAR HEMOGLOBIN 28.2 pg (27.0-33.0); MEAN CORPUSCULAR HGB CONC 34.8 g/dl (32.0-36.5); PLATELET COUNT, AUTOMATED 291 10^3/uL (150-450); RED BLOOD COUNT 4.96 10^6/uL (4.30-6.10); WHITE BLOOD COUNT 6.9 10^3/uL (4.0-10.0)
[2022-04-24 06:00] VITALS: BP 152/89
[2022-04-24 06:39] LABS: ALBUMIN 2.5 GM/DL (3.2-5.2); ALKALINE PHOSPHATASE 130 U/L (45-117); ALT/SGPT 21 U/L (12-78); AST/SGOT 22 U/L (7-37); BILIRUBIN,TOTAL 0.6 MG/DL (0.2-1.0); BLOOD UREA NITROGEN 14 MG/DL (7-18); CALCIUM LEVEL 8.5 MG/DL (8.8-10.2); CARBON DIOXIDE LEVEL 24 MEQ/L (21-32); CHLORIDE LEVEL 99 MEQ/L (98-107); CREATININE FOR GFR 0.56 MG/DL (0.70-1.30); GLOMERULAR FILTRATION RATE > 60.0 (>42); GLUCOSE, FASTING 223 MG/DL (70-100); POTASSIUM SERUM 4.1 MEQ/L (3.5-5.1); SODIUM LEVEL 132 MEQ/L (136-145); TOTAL PROTEIN 5.9 GM/DL (6.4-8.2)
[2022-04-24] MEDS: TAMSULOSIN 0.4 MG CAP PO SCH (08:00)
[2022-04-24] MEDS: metFORMIN (GLUCOPHAGE) 500MG TAB PO SCH ×2 (08:01→17:22)
[2022-04-24] MEDS: GABAPENTIN 100 MG CAP PO SCH ×3 (08:01→20:13)
[2022-04-24] MEDS: QUEtiapine FUMARATE 25 MG TAB PO SCH ×3 (08:01→21:00)
[2022-04-24] MEDS: ASPIRIN 81MG CHEW TABLET PO SCH (08:01)
[2022-04-24] MEDS: DOCUSATE SODIUM 100MG CAPSULE PO SCH ×3 (08:01→20:13)
[2022-04-24] MEDS: ATORVASTATIN 20 MG TAB PO SCH (08:01)
[2022-04-24] MEDS: FLUoxetine 10 MG CAP PO SCH (08:01)
[2022-04-24] MEDS: SODIUM CHLORIDE 1 GM TAB PO SCH ×3 (08:01→20:13)
[2022-04-24] MEDS: POTASSIUM CHLORIDE 10MEQ SR TABLET PO SCH (08:02)
[2022-04-24] MEDS: ENOXAPARIN 100MG/1ML SYRINGE (J1650 PER 10MG) SC SCH ×3 (08:02→20:05)
[2022-04-24] MEDS: INSULIN LISPRO (NovoLOG) PER UNIT SC SCH ×4 (08:03→21:00)
[2022-04-24] MEDS: SODIUM CHLORIDE NASAL 0.65% SPRAY BTL (OCEAN) SCH ×2 (08:16→20:06)
[2022-04-24] MEDS: LIDOCAINE 5% (LIDODERM) PATCH TD SCH (08:16)
[2022-04-24] MEDS: FLUTICASONE PROP 0.05% NASAL SPRAY 16 GM (FLONASE) NARES SCH ×2 (08:16→20:06)
[2022-04-24] MEDS: RAMELTEON 8 MG TAB (ROZEREM) PO SCH ×2 (20:05→20:13)
[2022-04-24] MEDS: **NOTE PATIENT COMMENT** MISC XX SCH (20:06)
[2022-04-25] MEDS: traMADol 50 MG TAB PO PRN (01:19)
[2022-04-25] MEDS: SENNA 8.6 MG TAB (SENOKOT) PO PRN (02:34)
[2022-04-25] MEDS: ONDANSETRON 4MG ORAL DISINTEGRATING TAB PO PRN (02:34)
[2022-04-25 06:00] VITALS: BP 142/81
[2022-04-25] MEDS: GABAPENTIN 100 MG CAP PO SCH ×2 (09:56→21:00)
[2022-04-25] MEDS: TAMSULOSIN 0.4 MG CAP PO SCH (09:56)
[2022-04-25] MEDS: FLUoxetine 10 MG CAP PO SCH (09:56)
[2022-04-25] MEDS: SODIUM CHLORIDE 1 GM TAB PO SCH ×2 (09:56→21:00)
[2022-04-25] MEDS: QUEtiapine FUMARATE 25 MG TAB PO SCH ×2 (09:59→21:00)
[2022-04-25] MEDS: metFORMIN (GLUCOPHAGE) 500MG TAB PO SCH ×2 (10:02→17:16)
[2022-04-25] MEDS: INSULIN LISPRO (NovoLOG) PER UNIT SC SCH ×4 (10:02→21:00)
[2022-04-25] MEDS: ENOXAPARIN 100MG/1ML SYRINGE (J1650 PER 10MG) SC SCH ×2 (10:02→20:00)
[2022-04-25] MEDS: DOCUSATE SODIUM 100MG CAPSULE PO SCH ×2 (10:03→21:00)
[2022-04-25] MEDS: ATORVASTATIN 20 MG TAB PO SCH (10:03)
[2022-04-25] MEDS: POTASSIUM CHLORIDE 10MEQ SR TABLET PO SCH (10:03)
[2022-04-25] MEDS: ASPIRIN 81MG CHEW TABLET PO SCH (10:03)
[2022-04-25] MEDS: FLUTICASONE PROP 0.05% NASAL SPRAY 16 GM (FLONASE) NARES SCH ×2 (10:04→21:00)
[2022-04-25] MEDS: SODIUM CHLORIDE NASAL 0.65% SPRAY BTL (OCEAN) SCH ×2 (10:04→21:00)
[2022-04-25] MEDS: LIDOCAINE 5% (LIDODERM) PATCH TD SCH (10:04)
[2022-04-25] MEDS: ACETAMINOPHEN TAB 650MG DOSE (2X325MG) PO PRN (19:35)
[2022-04-25] MEDS: **NOTE PATIENT COMMENT** MISC XX SCH (21:00)
[2022-04-25] MEDS: RAMELTEON 8 MG TAB (ROZEREM) PO SCH (21:00)
[2022-04-26] MEDS: ONDANSETRON 4MG ORAL DISINTEGRATING TAB PO PRN ×2 (02:56→11:43)
[2022-04-26 05:36] VITALS: BP 144/92
[2022-04-26] MEDS: INSULIN LISPRO (NovoLOG) PER UNIT SC SCH ×4 (07:30→20:11)
[2022-04-26] MEDS: ENOXAPARIN 100MG/1ML SYRINGE (J1650 PER 10MG) SC SCH ×2 (08:00→20:12)
[2022-04-26] MEDS: metFORMIN (GLUCOPHAGE) 500MG TAB PO SCH ×2 (08:00→17:56)
[2022-04-26] MEDS: SODIUM CHLORIDE 1 GM TAB PO SCH ×2 (09:00→20:12)
[2022-04-26] MEDS: GABAPENTIN 100 MG CAP PO SCH ×2 (09:00→20:12)
[2022-04-26] MEDS: ATORVASTATIN 20 MG TAB PO SCH (09:00)
[2022-04-26] MEDS: POTASSIUM CHLORIDE 10MEQ SR TABLET PO SCH (09:00)
[2022-04-26] MEDS: ASPIRIN 81MG CHEW TABLET PO SCH (09:00)
[2022-04-26] MEDS: FLUTICASONE PROP 0.05% NASAL SPRAY 16 GM (FLONASE) NARES SCH ×2 (09:00→20:11)
[2022-04-26] MEDS: TAMSULOSIN 0.4 MG CAP PO SCH (09:00)
[2022-04-26] MEDS: QUEtiapine FUMARATE 25 MG TAB PO SCH ×2 (09:00→20:12)
[2022-04-26] MEDS: SODIUM CHLORIDE NASAL 0.65% SPRAY BTL (OCEAN) SCH ×2 (09:00→20:10)
[2022-04-26] MEDS: LIDOCAINE 5% (LIDODERM) PATCH TD SCH (09:00)
[2022-04-26] MEDS: FLUoxetine 10 MG CAP PO SCH (09:00)
[2022-04-26] MEDS: DOCUSATE SODIUM 100MG CAPSULE PO SCH ×2 (09:00→20:12)
[2022-04-26] MEDS: traMADol 50 MG TAB PO PRN (11:08)
[2022-04-26] MEDS: carisoprodoL 350 MG TAB PO PRN (15:21)
[2022-04-26] MEDS: **NOTE PATIENT COMMENT** MISC XX SCH (20:10)
[2022-04-26] MEDS: RAMELTEON 8 MG TAB (ROZEREM) PO SCH (20:12)
[2022-04-27 06:00] VITALS: BP 138/93
[2022-04-27] MEDS: INSULIN LISPRO (NovoLOG) PER UNIT SC SCH ×4 (07:26→21:00)
[2022-04-27] MEDS: ENOXAPARIN 100MG/1ML SYRINGE (J1650 PER 10MG) SC SCH ×2 (08:00→20:00)
[2022-04-27] MEDS: metFORMIN (GLUCOPHAGE) 500MG TAB PO SCH ×2 (08:00→17:52)
[2022-04-27] MEDS: traMADol 50 MG TAB PO PRN ×2 (08:55→20:02)
[2022-04-27] MEDS: ASPIRIN 81MG CHEW TABLET PO SCH (08:55)
[2022-04-27] MEDS: GABAPENTIN 100 MG CAP PO SCH ×2 (08:55→20:00)
[2022-04-27] MEDS: QUEtiapine FUMARATE 25 MG TAB PO SCH ×2 (08:55→20:00)
[2022-04-27] MEDS: TAMSULOSIN 0.4 MG CAP PO SCH (08:55)
[2022-04-27] MEDS: FLUTICASONE PROP 0.05% NASAL SPRAY 16 GM (FLONASE) NARES SCH ×2 (09:00→21:32)
[2022-04-27] MEDS: FLUoxetine 10 MG CAP PO SCH (09:00)
[2022-04-27] MEDS: SODIUM CHLORIDE NASAL 0.65% SPRAY BTL (OCEAN) SCH ×2 (09:00→21:00)
[2022-04-27] MEDS: LIDOCAINE 5% (LIDODERM) PATCH TD SCH (09:00)
[2022-04-27] MEDS: SODIUM CHLORIDE 1 GM TAB PO SCH ×2 (09:00→20:00)
[2022-04-27] MEDS: ATORVASTATIN 20 MG TAB PO SCH (09:00)
[2022-04-27] MEDS: POTASSIUM CHLORIDE 10MEQ SR TABLET PO SCH (09:00)
[2022-04-27] MEDS: DOCUSATE SODIUM 100MG CAPSULE PO SCH ×2 (09:00→20:00)
[2022-04-27] MEDS: carisoprodoL 350 MG TAB PO PRN (13:04)
[2022-04-27] MEDS: RAMELTEON 8 MG TAB (ROZEREM) PO SCH (20:00)
[2022-04-27] MEDS: **NOTE PATIENT COMMENT** MISC XX SCH (21:00)
[2022-04-28 06:00] VITALS: BP 137/86
[2022-04-28] MEDS: INSULIN LISPRO (NovoLOG) PER UNIT SC SCH ×4 (07:30→20:11)
[2022-04-28] MEDS: metFORMIN (GLUCOPHAGE) 500MG TAB PO SCH ×2 (07:35→18:00)
[2022-04-28] MEDS: POTASSIUM CHLORIDE 10MEQ SR TABLET PO SCH (09:00)
[2022-04-28] MEDS: DOCUSATE SODIUM 100MG CAPSULE PO SCH ×2 (09:00→20:11)
[2022-04-28] MEDS: ATORVASTATIN 20 MG TAB PO SCH (09:00)
[2022-04-28] MEDS: ASPIRIN 81MG CHEW TABLET PO SCH (09:00)
[2022-04-28] MEDS: FLUoxetine 10 MG CAP PO SCH (09:00)
[2022-04-28] MEDS: SODIUM CHLORIDE NASAL 0.65% SPRAY BTL (OCEAN) SCH ×2 (09:00→20:11)
[2022-04-28] MEDS: FLUTICASONE PROP 0.05% NASAL SPRAY 16 GM (FLONASE) NARES SCH ×2 (09:00→20:11)
[2022-04-28] MEDS: SODIUM CHLORIDE 1 GM TAB PO SCH ×2 (09:00→20:11)
[2022-04-28] MEDS: GABAPENTIN 100 MG CAP PO SCH ×2 (09:00→20:11)
[2022-04-28] MEDS: QUEtiapine FUMARATE 25 MG TAB PO SCH ×2 (09:00→20:11)
[2022-04-28] MEDS: TAMSULOSIN 0.4 MG CAP PO SCH (09:00)
[2022-04-28] MEDS: LIDOCAINE 5% (LIDODERM) PATCH TD SCH (09:00)
[2022-04-28] MEDS: ENOXAPARIN 100MG/1ML SYRINGE (J1650 PER 10MG) SC SCH ×2 (09:29→20:00)
[2022-04-28] MEDS: traMADol 50 MG TAB PO PRN ×2 (13:01→20:33)
[2022-04-28] MEDS: CALCIUM CARBONATE 500 MG CHEW U/D PO PRN (13:39)
[2022-04-28] MEDS: carisoprodoL 350 MG TAB PO PRN (16:29)
[2022-04-28] MEDS: RAMELTEON 8 MG TAB (ROZEREM) PO SCH (20:11)
[2022-04-28] MEDS: **NOTE PATIENT COMMENT** MISC XX SCH (20:11)
[2022-04-29 00:14] VITALS: BP 139/83
[2022-04-29] MEDS: ONDANSETRON 4MG ORAL DISINTEGRATING TAB PO PRN (00:16)
[2022-04-29 05:33] VITALS: BP 139/81
[2022-04-29] MEDS: ENOXAPARIN 100MG/1ML SYRINGE (J1650 PER 10MG) SC SCH ×2 (07:54→23:04)
[2022-04-29] MEDS: GABAPENTIN 100 MG CAP PO SCH ×2 (07:54→23:03)
[2022-04-29] MEDS: INSULIN LISPRO (NovoLOG) PER UNIT SC SCH ×4 (07:54→21:00)
[2022-04-29] MEDS: metFORMIN (GLUCOPHAGE) 500MG TAB PO SCH ×2 (07:55→17:50)
[2022-04-29] MEDS: ATORVASTATIN 20 MG TAB PO SCH (07:55)
[2022-04-29] MEDS: QUEtiapine FUMARATE 25 MG TAB PO SCH ×2 (07:56→23:03)
[2022-04-29] MEDS: SODIUM CHLORIDE 1 GM TAB PO SCH ×2 (07:56→23:03)
[2022-04-29] MEDS: DOCUSATE SODIUM 100MG CAPSULE PO SCH ×2 (07:56→23:03)
[2022-04-29] MEDS: ASPIRIN 81MG CHEW TABLET PO SCH (07:56)
[2022-04-29] MEDS: TAMSULOSIN 0.4 MG CAP PO SCH (07:57)
[2022-04-29] MEDS: FLUoxetine 10 MG CAP PO SCH (07:57)
[2022-04-29] MEDS: POTASSIUM CHLORIDE 10MEQ SR TABLET PO SCH (07:58)
[2022-04-29] MEDS: SODIUM CHLORIDE NASAL 0.65% SPRAY BTL (OCEAN) SCH ×2 (07:59→23:04)
[2022-04-29] MEDS: FLUTICASONE PROP 0.05% NASAL SPRAY 16 GM (FLONASE) NARES SCH ×2 (07:59→23:04)
[2022-04-29] MEDS: LIDOCAINE 5% (LIDODERM) PATCH TD SCH (08:00)
[2022-04-29] MEDS: **NOTE PATIENT COMMENT** MISC XX SCH (21:00)
[2022-04-29] MEDS: RAMELTEON 8 MG TAB (ROZEREM) PO SCH (23:03)
[2022-04-30 05:00] VITALS: BP 112/73
[2022-04-30] MEDS: ACETAMINOPHEN TAB 650MG DOSE (2X325MG) PO PRN (06:59)
[2022-04-30] MEDS: INSULIN LISPRO (NovoLOG) PER UNIT SC SCH ×4 (06:59→21:00)
[2022-04-30] MEDS: metFORMIN (GLUCOPHAGE) 500MG TAB PO SCH ×2 (08:00→17:37)
[2022-04-30] MEDS: ENOXAPARIN 100MG/1ML SYRINGE (J1650 PER 10MG) SC SCH ×2 (08:00→21:20)
[2022-04-30] MEDS: FLUTICASONE PROP 0.05% NASAL SPRAY 16 GM (FLONASE) NARES SCH ×2 (09:00→21:20)
[2022-04-30] MEDS: GABAPENTIN 100 MG CAP PO SCH ×2 (09:00→21:19)
[2022-04-30] MEDS: ASPIRIN 81MG CHEW TABLET PO SCH (09:00)
[2022-04-30] MEDS: SODIUM CHLORIDE 1 GM TAB PO SCH ×2 (09:00→21:19)
[2022-04-30] MEDS: TAMSULOSIN 0.4 MG CAP PO SCH (09:00)
[2022-04-30] MEDS: QUEtiapine FUMARATE 25 MG TAB PO SCH ×2 (09:00→21:19)
[2022-04-30] MEDS: POTASSIUM CHLORIDE 10MEQ SR TABLET PO SCH (09:00)
[2022-04-30] MEDS: ATORVASTATIN 20 MG TAB PO SCH (09:00)
[2022-04-30] MEDS: SODIUM CHLORIDE NASAL 0.65% SPRAY BTL (OCEAN) SCH ×2 (09:00→21:20)
[2022-04-30] MEDS: LIDOCAINE 5% (LIDODERM) PATCH TD SCH (09:00)
[2022-04-30] MEDS: FLUoxetine 10 MG CAP PO SCH (09:00)
[2022-04-30] MEDS: DOCUSATE SODIUM 100MG CAPSULE PO SCH ×2 (09:00→21:19)
[2022-04-30] MEDS: **NOTE PATIENT COMMENT** MISC XX SCH (21:00)
[2022-04-30] MEDS: RAMELTEON 8 MG TAB (ROZEREM) PO SCH (21:19)
[2022-05-01] MEDS: MIRALAX *UNIT DOSE* 17GM PACKET PO PRN (02:10)
[2022-05-01] MEDS: traMADol 50 MG TAB PO PRN ×2 (02:10→16:23)
[2022-05-01 06:32] VITALS: BP 118/72
[2022-05-01] MEDS: INSULIN LISPRO (NovoLOG) PER UNIT SC SCH ×4 (07:30→20:45)
[2022-05-01] MEDS: ENOXAPARIN 100MG/1ML SYRINGE (J1650 PER 10MG) SC SCH ×2 (08:00→20:00)
[2022-05-01] MEDS: metFORMIN (GLUCOPHAGE) 500MG TAB PO SCH ×2 (08:00→18:00)
[2022-05-01] MEDS: QUEtiapine FUMARATE 25 MG TAB PO SCH ×2 (09:00→21:00)
[2022-05-01] MEDS: LIDOCAINE 5% (LIDODERM) PATCH TD SCH (09:00)
[2022-05-01] MEDS: FLUTICASONE PROP 0.05% NASAL SPRAY 16 GM (FLONASE) NARES SCH ×2 (09:00→21:00)
[2022-05-01] MEDS: POTASSIUM CHLORIDE 10MEQ SR TABLET PO SCH (09:00)
[2022-05-01] MEDS: DOCUSATE SODIUM 100MG CAPSULE PO SCH ×2 (09:00→16:22)
[2022-05-01] MEDS: ASPIRIN 81MG CHEW TABLET PO SCH (09:00)
[2022-05-01] MEDS: TAMSULOSIN 0.4 MG CAP PO SCH (09:00)
[2022-05-01] MEDS: ATORVASTATIN 20 MG TAB PO SCH (09:00)
[2022-05-01] MEDS: FLUoxetine 10 MG CAP PO SCH (09:00)
[2022-05-01] MEDS: SODIUM CHLORIDE 1 GM TAB PO SCH ×2 (09:00→21:00)
[2022-05-01] MEDS: GABAPENTIN 100 MG CAP PO SCH ×2 (09:00→21:00)
[2022-05-01] MEDS: SODIUM CHLORIDE NASAL 0.65% SPRAY BTL (OCEAN) SCH ×2 (09:00→21:00)
[2022-05-01] MEDS: SENNA 8.6 MG TAB (SENOKOT) PO PRN (16:22)
[2022-05-01] MEDS: LACTULOSE 20GM/30ML SYRUP UDC PO SCH (16:46)
[2022-05-01] MEDS: RAMELTEON 8 MG TAB (ROZEREM) PO SCH (21:00)
[2022-05-01] MEDS: **NOTE PATIENT COMMENT** MISC XX SCH (21:00)
[2022-05-02] MEDS: traMADol 50 MG TAB PO PRN ×3 (00:13→21:21)
[2022-05-02 05:48] VITALS: BP 150/94
[2022-05-02] MEDS: LACTULOSE 20GM/30ML SYRUP UDC PO SCH ×2 (06:00)
[2022-05-02] MEDS: INSULIN LISPRO (NovoLOG) PER UNIT SC SCH ×4 (07:30→21:00)
[2022-05-02] MEDS: ENOXAPARIN 100MG/1ML SYRINGE (J1650 PER 10MG) SC SCH ×2 (08:00→20:00)
[2022-05-02] MEDS: metFORMIN (GLUCOPHAGE) 500MG TAB PO SCH ×2 (08:00→18:00)
[2022-05-02] MEDS: FLUTICASONE PROP 0.05% NASAL SPRAY 16 GM (FLONASE) NARES SCH ×2 (09:00→21:00)
[2022-05-02] MEDS: SODIUM CHLORIDE NASAL 0.65% SPRAY BTL (OCEAN) SCH ×2 (09:00→21:00)
[2022-05-02] MEDS: ATORVASTATIN 20 MG TAB PO SCH (09:00)
[2022-05-02] MEDS: TAMSULOSIN 0.4 MG CAP PO SCH (09:00)
[2022-05-02] MEDS: GABAPENTIN 100 MG CAP PO SCH ×2 (09:00→21:00)
[2022-05-02] MEDS: QUEtiapine FUMARATE 25 MG TAB PO SCH ×2 (09:00→21:00)
[2022-05-02] MEDS: LIDOCAINE 5% (LIDODERM) PATCH TD SCH (09:00)
[2022-05-02] MEDS: ASPIRIN 81MG CHEW TABLET PO SCH (09:00)
[2022-05-02] MEDS: SODIUM CHLORIDE 1 GM TAB PO SCH ×2 (09:00→21:00)
[2022-05-02] MEDS: FLUoxetine 10 MG CAP PO SCH (09:00)
[2022-05-02] MEDS: POTASSIUM CHLORIDE 10MEQ SR TABLET PO SCH (09:00)
[2022-05-02] MEDS: carisoprodoL 350 MG TAB PO PRN (18:50)
[2022-05-02] MEDS: **NOTE PATIENT COMMENT** MISC XX SCH (20:20)
[2022-05-02] MEDS: RAMELTEON 8 MG TAB (ROZEREM) PO SCH (21:00)
[2022-05-03 06:00] VITALS: BP 144/94
[2022-05-03] MEDS: INSULIN LISPRO (NovoLOG) PER UNIT SC SCH ×4 (07:30→21:00)
[2022-05-03] MEDS: metFORMIN (GLUCOPHAGE) 500MG TAB PO SCH ×2 (07:51→17:18)
[2022-05-03] MEDS: ENOXAPARIN 100MG/1ML SYRINGE (J1650 PER 10MG) SC SCH (08:00)
[2022-05-03] MEDS: ATORVASTATIN 20 MG TAB PO SCH (09:00)
[2022-05-03] MEDS: GABAPENTIN 100 MG CAP PO SCH ×2 (09:00→21:00)
[2022-05-03] MEDS: POTASSIUM CHLORIDE 10MEQ SR TABLET PO SCH (09:00)
[2022-05-03] MEDS: FLUoxetine 10 MG CAP PO SCH (09:00)
[2022-05-03] MEDS: QUEtiapine FUMARATE 25 MG TAB PO SCH ×2 (09:00→21:00)
[2022-05-03] MEDS: FLUTICASONE PROP 0.05% NASAL SPRAY 16 GM (FLONASE) NARES SCH ×2 (09:00→21:00)
[2022-05-03] MEDS: LIDOCAINE 5% (LIDODERM) PATCH TD SCH (09:00)
[2022-05-03] MEDS: SODIUM CHLORIDE 1 GM TAB PO SCH ×2 (09:00→21:00)
[2022-05-03] MEDS: TAMSULOSIN 0.4 MG CAP PO SCH (09:00)
[2022-05-03] MEDS: SODIUM CHLORIDE NASAL 0.65% SPRAY BTL (OCEAN) SCH ×2 (09:00→21:00)
[2022-05-03] MEDS: ASPIRIN 81MG CHEW TABLET PO SCH (09:00)
[2022-05-03] MEDS: traMADol 50 MG TAB PO PRN ×2 (11:08→22:43)
[2022-05-03] MEDS: MOM 30ML SUSPENSION UDC PO PRN (15:43)
[2022-05-03] MEDS: SENNA 8.6 MG TAB (SENOKOT) PO PRN (15:43)
[2022-05-03 16:54] LABS: BASO # 0.1 10^3/uL (0.0-0.2); BASO % 0.7 % (0.0-1.0); EOS # 0.2 10^3/uL (0.0-0.5); EOS % 3.5 % (0.0-3.0); HEMATOCRIT 43.2 % (42.0-52.0); HEMOGLOBIN 14.5 g/dl (13.5-17.5); LYMPH % 29.4 % (24.0-44.0); MEAN CORPUSCULAR HEMOGLOBIN 27.8 pg (27.0-33.0); MEAN CORPUSCULAR HGB CONC 33.6 g/dl (32.0-36.5); MEAN CORPUSCULAR VOLUME 82.8 fl (80.0-96.0); MONO # 0.7 10^3/uL (0.0-0.8); MONO % 9.5 % (2.0-8.0); NEUTROPHILS # 3.9 10^3/uL (1.5-8.5); NEUTROPHILS % 56.5 % (36.0-66.0); PLATELET COUNT, AUTOMATED 335 10^3/uL (150-450); RED BLOOD COUNT 5.22 10^6/uL (4.30-6.10); WHITE BLOOD COUNT 6.8 10^3/uL (4.0-10.0)
[2022-05-03 17:05] LABS: INR 1.01; PROTHROMBIN TIME 13.8 SECONDS (12.7-14.5)
[2022-05-03 17:06] LABS: PARTIAL THROMBOPLASTIN TIME 36.4 SECONDS (25.9-37.0)
[2022-05-03 17:32] LABS: BLOOD UREA NITROGEN 15 MG/DL (7-18); CALCIUM LEVEL 8.9 MG/DL (8.8-10.2); CARBON DIOXIDE LEVEL 26 MEQ/L (21-32); CHLORIDE LEVEL 97 MEQ/L (98-107); CREATININE FOR GFR 0.72 MG/DL (0.70-1.30); GLOMERULAR FILTRATION RATE > 60.0 (>42); GLUCOSE, FASTING 237 MG/DL (70-100); SODIUM LEVEL 130 MEQ/L (136-145)
[2022-05-03] MEDS: carisoprodoL 350 MG TAB PO PRN (20:03)
[2022-05-03] MEDS: RAMELTEON 8 MG TAB (ROZEREM) PO SCH (21:00)
[2022-05-03] MEDS: **NOTE PATIENT COMMENT** MISC XX SCH (21:00)
[2022-05-03] MEDS: APIXABAN 5 MG TAB (ELIQUIS) PO SCH (21:00)
[2022-05-04 06:00] VITALS: BP 150/79
[2022-05-04] MEDS: INSULIN LISPRO (NovoLOG) PER UNIT SC SCH ×4 (07:30→21:00)
[2022-05-04] MEDS: LIDOCAINE 5% (LIDODERM) PATCH TD SCH (07:47)
[2022-05-04] MEDS: APIXABAN 5 MG TAB (ELIQUIS) PO SCH ×2 (08:56→21:00)
[2022-05-04] MEDS: metFORMIN (GLUCOPHAGE) 500MG TAB PO SCH ×2 (08:56→18:03)
[2022-05-04] MEDS: TAMSULOSIN 0.4 MG CAP PO SCH ×2 (08:56→09:00)
[2022-05-04] MEDS: ASPIRIN 81MG CHEW TABLET PO SCH (08:56)
[2022-05-04] MEDS: POTASSIUM CHLORIDE 10MEQ SR TABLET PO SCH ×2 (08:57→09:00)
[2022-05-04] MEDS: GABAPENTIN 100 MG CAP PO SCH ×3 (08:57→21:00)
[2022-05-04] MEDS: QUEtiapine FUMARATE 25 MG TAB PO SCH ×3 (08:57→21:00)
[2022-05-04] MEDS: SODIUM CHLORIDE 1 GM TAB PO SCH ×3 (08:57→21:00)
[2022-05-04] MEDS: SODIUM CHLORIDE NASAL 0.65% SPRAY BTL (OCEAN) SCH ×2 (08:57→21:00)
[2022-05-04] MEDS: ATORVASTATIN 20 MG TAB PO SCH (08:57)
[2022-05-04] MEDS: FLUTICASONE PROP 0.05% NASAL SPRAY 16 GM (FLONASE) NARES SCH ×2 (08:57→21:00)
[2022-05-04] MEDS: FLUoxetine 10 MG CAP PO SCH (08:57)
[2022-05-04] MEDS: carisoprodoL 350 MG TAB PO PRN (15:36)
[2022-05-04] MEDS: traMADol 50 MG TAB PO PRN (16:36)
[2022-05-04] MEDS: RAMELTEON 8 MG TAB (ROZEREM) PO SCH (21:00)
[2022-05-05 06:00] VITALS: BP 153/90
[2022-05-05] MEDS: carisoprodoL 350 MG TAB PO PRN ×2 (06:31→18:56)
[2022-05-05] MEDS: INSULIN LISPRO (NovoLOG) PER UNIT SC SCH ×4 (07:30→21:00)
[2022-05-05] MEDS: ASPIRIN 81MG CHEW TABLET PO SCH (08:11)
[2022-05-05] MEDS: TAMSULOSIN 0.4 MG CAP PO SCH (08:11)
[2022-05-05] MEDS: QUEtiapine FUMARATE 25 MG TAB PO SCH ×2 (08:11→21:00)
[2022-05-05] MEDS: APIXABAN 5 MG TAB (ELIQUIS) PO SCH ×2 (08:11→21:00)
[2022-05-05] MEDS: metFORMIN (GLUCOPHAGE) 500MG TAB PO SCH ×2 (08:11→17:49)
[2022-05-05] MEDS: ATORVASTATIN 20 MG TAB PO SCH (08:11)
[2022-05-05] MEDS: MOM 30ML SUSPENSION UDC PO PRN (08:16)
[2022-05-05] MEDS: SODIUM CHLORIDE 1 GM TAB PO SCH ×2 (09:00→21:00)
[2022-05-05] MEDS: FLUTICASONE PROP 0.05% NASAL SPRAY 16 GM (FLONASE) NARES SCH ×2 (09:00→21:00)
[2022-05-05] MEDS: POTASSIUM CHLORIDE 10MEQ SR TABLET PO SCH (09:00)
[2022-05-05] MEDS: FLUoxetine 10 MG CAP PO SCH (09:00)
[2022-05-05] MEDS: SODIUM CHLORIDE NASAL 0.65% SPRAY BTL (OCEAN) SCH ×2 (09:00→21:00)
[2022-05-05] MEDS: GABAPENTIN 100 MG CAP PO SCH ×2 (09:00→21:00)
[2022-05-05] MEDS: RAMELTEON 8 MG TAB (ROZEREM) PO SCH (21:41)
[2022-05-06 06:00] VITALS: BP 143/84
[2022-05-06] MEDS: INSULIN LISPRO (NovoLOG) PER UNIT SC SCH ×4 (07:30→19:44)
[2022-05-06] MEDS: metFORMIN (GLUCOPHAGE) 500MG TAB PO SCH ×3 (08:00→17:58)
[2022-05-06] MEDS: ATORVASTATIN 20 MG TAB PO SCH ×2 (09:00→16:30)
[2022-05-06] MEDS: QUEtiapine FUMARATE 25 MG TAB PO SCH ×3 (09:00→19:44)
[2022-05-06] MEDS: POTASSIUM CHLORIDE 10MEQ SR TABLET PO SCH (09:00)
[2022-05-06] MEDS: ASPIRIN 81MG CHEW TABLET PO SCH ×2 (09:00→16:29)
[2022-05-06] MEDS: SODIUM CHLORIDE NASAL 0.65% SPRAY BTL (OCEAN) SCH ×2 (09:00→19:45)
[2022-05-06] MEDS: FLUTICASONE PROP 0.05% NASAL SPRAY 16 GM (FLONASE) NARES SCH ×2 (09:00→19:45)
[2022-05-06] MEDS: SODIUM CHLORIDE 1 GM TAB PO SCH ×2 (09:00→19:44)
[2022-05-06] MEDS: TAMSULOSIN 0.4 MG CAP PO SCH ×2 (09:00→16:29)
[2022-05-06] MEDS: GABAPENTIN 100 MG CAP PO SCH ×3 (09:00→19:44)
[2022-05-06] MEDS: APIXABAN 5 MG TAB (ELIQUIS) PO SCH ×3 (09:00→19:44)
[2022-05-06] MEDS: FLUoxetine 10 MG CAP PO SCH ×2 (09:00→16:30)
[2022-05-06] MEDS: traMADol 50 MG TAB PO PRN (16:05)
[2022-05-06] MEDS: RAMELTEON 8 MG TAB (ROZEREM) PO SCH (19:44)
[2022-05-07] MEDS: traMADol 50 MG TAB PO PRN ×2 (00:50→22:23)
[2022-05-07 06:00] VITALS: BP 138/98
[2022-05-07] MEDS: INSULIN LISPRO (NovoLOG) PER UNIT SC SCH ×4 (07:30→22:26)
[2022-05-07] MEDS: metFORMIN (GLUCOPHAGE) 500MG TAB PO SCH ×3 (08:00→17:12)
[2022-05-07] MEDS: SODIUM CHLORIDE 1 GM TAB PO SCH ×2 (09:00→22:23)
[2022-05-07] MEDS: FLUoxetine 10 MG CAP PO SCH ×2 (09:00→10:16)
[2022-05-07] MEDS: ASPIRIN 81MG CHEW TABLET PO SCH ×2 (09:00→10:16)
[2022-05-07] MEDS: SODIUM CHLORIDE NASAL 0.65% SPRAY BTL (OCEAN) SCH ×2 (09:00→21:00)
[2022-05-07] MEDS: QUEtiapine FUMARATE 25 MG TAB PO SCH ×3 (09:00→22:23)
[2022-05-07] MEDS: APIXABAN 5 MG TAB (ELIQUIS) PO SCH ×3 (09:00→22:23)
[2022-05-07] MEDS: FLUTICASONE PROP 0.05% NASAL SPRAY 16 GM (FLONASE) NARES SCH ×2 (09:00→22:24)
[2022-05-07] MEDS: POTASSIUM CHLORIDE 10MEQ SR TABLET PO SCH (09:00)
[2022-05-07] MEDS: ATORVASTATIN 20 MG TAB PO SCH ×2 (09:00→10:16)
[2022-05-07] MEDS: GABAPENTIN 100 MG CAP PO SCH ×2 (09:00→22:23)
[2022-05-07] MEDS: TAMSULOSIN 0.4 MG CAP PO SCH ×2 (09:00→10:17)
[2022-05-07 14:30] LABS: BLOOD UREA NITROGEN 14 MG/DL (7-18); CALCIUM LEVEL 8.9 MG/DL (8.8-10.2); CARBON DIOXIDE LEVEL 24 MEQ/L (21-32); CHLORIDE LEVEL 98 MEQ/L (98-107); CREATININE FOR GFR 0.69 MG/DL (0.70-1.30); GLOMERULAR FILTRATION RATE > 60.0 (>42); GLUCOSE, FASTING 239 MG/DL (70-100); POTASSIUM SERUM 4.2 MEQ/L (3.5-5.1); SODIUM LEVEL 130 MEQ/L (136-145)
[2022-05-07] MEDS: RAMELTEON 8 MG TAB (ROZEREM) PO SCH (22:23)
[2022-05-08 06:55] VITALS: BP 138/88
[2022-05-08] MEDS: INSULIN LISPRO (NovoLOG) PER UNIT SC SCH ×4 (07:30→21:00)
[2022-05-08] MEDS: metFORMIN (GLUCOPHAGE) 500MG TAB PO SCH ×2 (08:00→17:32)
[2022-05-08] MEDS: LEVEMIR (INSULIN DETEMIR) 1 UNITS/0.01ML SC SCH (09:00)
[2022-05-08] MEDS: APIXABAN 5 MG TAB (ELIQUIS) PO SCH ×2 (09:11→20:35)
[2022-05-08] MEDS: TAMSULOSIN 0.4 MG CAP PO SCH (09:11)
[2022-05-08] MEDS: ASPIRIN 81MG CHEW TABLET PO SCH (09:11)
[2022-05-08] MEDS: GABAPENTIN 100 MG CAP PO SCH ×2 (09:11→20:35)
[2022-05-08] MEDS: QUEtiapine FUMARATE 25 MG TAB PO SCH ×2 (09:11→20:35)
[2022-05-08] MEDS: FLUoxetine 10 MG CAP PO SCH (09:11)
[2022-05-08] MEDS: SODIUM CHLORIDE 1 GM TAB PO SCH ×2 (09:12→20:35)
[2022-05-08] MEDS: ATORVASTATIN 20 MG TAB PO SCH (09:12)
[2022-05-08] MEDS: traMADol 50 MG TAB PO PRN ×2 (09:14→18:45)
[2022-05-08] MEDS: SODIUM CHLORIDE NASAL 0.65% SPRAY BTL (OCEAN) SCH ×2 (09:16→20:36)
[2022-05-08] MEDS: FLUTICASONE PROP 0.05% NASAL SPRAY 16 GM (FLONASE) NARES SCH ×2 (09:16→20:36)
[2022-05-08] MEDS: carisoprodoL 350 MG TAB PO PRN (15:54)
[2022-05-08] MEDS: RAMELTEON 8 MG TAB (ROZEREM) PO SCH (20:35)
[2022-05-09] MEDS: ACETAMINOPHEN TAB 650MG DOSE (2X325MG) PO PRN (00:27)
[2022-05-09] MEDS: MOM 30ML SUSPENSION UDC PO PRN (05:41)
[2022-05-09] MEDS: traMADol 50 MG TAB PO PRN ×2 (05:42→18:54)
[2022-05-09 06:00] VITALS: BP 136/77
[2022-05-09] MEDS: INSULIN LISPRO (NovoLOG) PER UNIT SC SCH ×4 (07:30→21:00)
[2022-05-09] MEDS: metFORMIN (GLUCOPHAGE) 500MG TAB PO SCH ×2 (08:00→17:41)
[2022-05-09] MEDS: SODIUM CHLORIDE 1 GM TAB PO SCH ×2 (09:00→19:59)
[2022-05-09] MEDS: LEVEMIR (INSULIN DETEMIR) 1 UNITS/0.01ML SC SCH (09:00)
[2022-05-09] MEDS: ATORVASTATIN 20 MG TAB PO SCH (09:00)
[2022-05-09] MEDS: SODIUM CHLORIDE NASAL 0.65% SPRAY BTL (OCEAN) SCH ×2 (09:00→20:00)
[2022-05-09] MEDS: FLUTICASONE PROP 0.05% NASAL SPRAY 16 GM (FLONASE) NARES SCH ×2 (09:00→20:00)
[2022-05-09] MEDS: ASPIRIN 81MG CHEW TABLET PO SCH (09:00)
[2022-05-09] MEDS: GABAPENTIN 100 MG CAP PO SCH ×2 (09:00→19:59)
[2022-05-09] MEDS: QUEtiapine FUMARATE 25 MG TAB PO SCH ×2 (09:00→19:59)
[2022-05-09] MEDS: APIXABAN 5 MG TAB (ELIQUIS) PO SCH ×2 (09:00→19:59)
[2022-05-09] MEDS: FLUoxetine 10 MG CAP PO SCH (09:00)
[2022-05-09] MEDS: TAMSULOSIN 0.4 MG CAP PO SCH (09:00)
[2022-05-09] MEDS: RAMELTEON 8 MG TAB (ROZEREM) PO SCH (19:59)
[2022-05-09 21:00] VITALS: BP 123/86
[2022-05-10 06:00] VITALS: BP 118/60
[2022-05-10] MEDS: INSULIN LISPRO (NovoLOG) PER UNIT SC SCH ×4 (07:30→20:08)
[2022-05-10] MEDS: metFORMIN (GLUCOPHAGE) 500MG TAB PO SCH ×2 (08:00→18:00)
[2022-05-10] MEDS: LEVEMIR (INSULIN DETEMIR) 1 UNITS/0.01ML SC SCH (09:00)
[2022-05-10] MEDS: TAMSULOSIN 0.4 MG CAP PO SCH (09:00)
[2022-05-10] MEDS: FLUTICASONE PROP 0.05% NASAL SPRAY 16 GM (FLONASE) NARES SCH ×2 (09:00→20:03)
[2022-05-10] MEDS: SODIUM CHLORIDE NASAL 0.65% SPRAY BTL (OCEAN) SCH ×2 (09:00→20:03)
[2022-05-10] MEDS: ATORVASTATIN 20 MG TAB PO SCH (09:00)
[2022-05-10] MEDS: APIXABAN 5 MG TAB (ELIQUIS) PO SCH ×3 (09:00→20:02)
[2022-05-10] MEDS: FLUoxetine 10 MG CAP PO SCH ×2 (09:00→11:03)
[2022-05-10] MEDS: ASPIRIN 81MG CHEW TABLET PO SCH (09:00)
[2022-05-10] MEDS: GABAPENTIN 100 MG CAP PO SCH ×3 (09:00→20:02)
[2022-05-10] MEDS: QUEtiapine FUMARATE 25 MG TAB PO SCH ×3 (09:00→20:02)
[2022-05-10] MEDS: SODIUM CHLORIDE 1 GM TAB PO SCH ×3 (09:00→20:02)
[2022-05-10] MEDS: traMADol 50 MG TAB PO PRN (12:28)
[2022-05-10] MEDS: carisoprodoL 350 MG TAB PO PRN (19:37)
[2022-05-10] MEDS: RAMELTEON 8 MG TAB (ROZEREM) PO SCH (20:02)
[2022-05-11] MEDS: traMADol 50 MG TAB PO PRN ×2 (03:39→16:00)
[2022-05-11 05:40] VITALS: BP 134/84
[2022-05-11] MEDS: INSULIN LISPRO (NovoLOG) PER UNIT SC SCH ×4 (07:30→20:33)
[2022-05-11] MEDS: metFORMIN (GLUCOPHAGE) 500MG TAB PO SCH ×2 (08:00→18:00)
[2022-05-11] MEDS: carisoprodoL 350 MG TAB PO PRN ×2 (08:40→20:54)
[2022-05-11] MEDS: QUEtiapine FUMARATE 25 MG TAB PO SCH ×2 (09:00→20:33)
[2022-05-11] MEDS: GABAPENTIN 100 MG CAP PO SCH ×2 (09:00→20:33)
[2022-05-11] MEDS: TAMSULOSIN 0.4 MG CAP PO SCH (09:00)
[2022-05-11] MEDS: FLUoxetine 10 MG CAP PO SCH (09:00)
[2022-05-11] MEDS: APIXABAN 5 MG TAB (ELIQUIS) PO SCH ×2 (09:00→20:33)
[2022-05-11] MEDS: SODIUM CHLORIDE NASAL 0.65% SPRAY BTL (OCEAN) SCH ×2 (09:00→20:33)
[2022-05-11] MEDS: ATORVASTATIN 20 MG TAB PO SCH (09:00)
[2022-05-11] MEDS: ASPIRIN 81MG CHEW TABLET PO SCH (09:00)
[2022-05-11] MEDS: FLUTICASONE PROP 0.05% NASAL SPRAY 16 GM (FLONASE) NARES SCH ×2 (09:00→20:33)
[2022-05-11] MEDS: SODIUM CHLORIDE 1 GM TAB PO SCH ×2 (09:00→20:33)
[2022-05-11] MEDS: LEVEMIR (INSULIN DETEMIR) 1 UNITS/0.01ML SC SCH (09:00)
[2022-05-11 14:01] LABS: BLOOD UREA NITROGEN 12 MG/DL (7-18); CALCIUM LEVEL 8.7 MG/DL (8.8-10.2); CARBON DIOXIDE LEVEL 28 MEQ/L (21-32); CHLORIDE LEVEL 97 MEQ/L (98-107); CREATININE FOR GFR 0.64 MG/DL (0.70-1.30); GLOMERULAR FILTRATION RATE > 60.0 (>42); GLUCOSE, FASTING 154 MG/DL (70-100); POTASSIUM SERUM 4.2 MEQ/L (3.5-5.1); SODIUM LEVEL 130 MEQ/L (136-145)
[2022-05-11] MEDS: MOM 30ML SUSPENSION UDC PO PRN (16:01)
[2022-05-11] MEDS: RAMELTEON 8 MG TAB (ROZEREM) PO SCH (20:33)
[2022-05-11] MEDS: MIRALAX *UNIT DOSE* 17GM PACKET PO PRN (20:49)
[2022-05-12] MEDS: RAMELTEON 8 MG TAB (ROZEREM) PO SCH (01:13)
[2022-05-12 05:25] VITALS: BP 138/86
[2022-05-12] MEDS: INSULIN LISPRO (NovoLOG) PER UNIT SC SCH ×4 (07:30→20:42)
[2022-05-12] MEDS: ASPIRIN 81MG CHEW TABLET PO SCH (08:00)
[2022-05-12] MEDS: FLUoxetine 10 MG CAP PO SCH (08:00)
[2022-05-12] MEDS: TAMSULOSIN 0.4 MG CAP PO SCH (08:00)
[2022-05-12] MEDS: GABAPENTIN 100 MG CAP PO SCH ×2 (08:00→20:41)
[2022-05-12] MEDS: metFORMIN (GLUCOPHAGE) 500MG TAB PO SCH ×2 (08:00→18:00)
[2022-05-12] MEDS: APIXABAN 5 MG TAB (ELIQUIS) PO SCH ×2 (08:00→20:41)
[2022-05-12] MEDS: ATORVASTATIN 20 MG TAB PO SCH (08:00)
[2022-05-12] MEDS: QUEtiapine FUMARATE 25 MG TAB PO SCH ×2 (08:01→20:42)
[2022-05-12] MEDS: SODIUM CHLORIDE NASAL 0.65% SPRAY BTL (OCEAN) SCH ×2 (08:01→20:42)
[2022-05-12] MEDS: SODIUM CHLORIDE 1 GM TAB PO SCH ×2 (08:01→20:42)
[2022-05-12] MEDS: FLUTICASONE PROP 0.05% NASAL SPRAY 16 GM (FLONASE) NARES SCH ×2 (08:01→20:42)
[2022-05-12] MEDS: LEVEMIR (INSULIN DETEMIR) 1 UNITS/0.01ML SC SCH (08:01)
[2022-05-12] MEDS: traMADol 50 MG TAB PO PRN (09:44)
[2022-05-12] MEDS: CALCIUM CARBONATE 500 MG CHEW U/D PO PRN (14:51)
[2022-05-13 06:00] VITALS: BP 157/98
[2022-05-13] MEDS: INSULIN LISPRO (NovoLOG) PER UNIT SC SCH ×4 (07:30→20:19)
[2022-05-13] MEDS: GABAPENTIN 100 MG CAP PO SCH ×2 (09:00→20:55)
[2022-05-13] MEDS: FLUoxetine 10 MG CAP PO SCH (09:00)
[2022-05-13] MEDS: SODIUM CHLORIDE 1 GM TAB PO SCH ×2 (09:00→20:55)
[2022-05-13] MEDS: TAMSULOSIN 0.4 MG CAP PO SCH (09:00)
[2022-05-13] MEDS: SODIUM CHLORIDE NASAL 0.65% SPRAY BTL (OCEAN) SCH ×2 (09:00→20:55)
[2022-05-13] MEDS: LEVEMIR (INSULIN DETEMIR) 1 UNITS/0.01ML SC SCH (09:00)
[2022-05-13] MEDS: APIXABAN 5 MG TAB (ELIQUIS) PO SCH ×2 (09:00→20:55)
[2022-05-13] MEDS: FLUTICASONE PROP 0.05% NASAL SPRAY 16 GM (FLONASE) NARES SCH ×2 (09:00→20:56)
[2022-05-13] MEDS: ASPIRIN 81MG CHEW TABLET PO SCH (09:00)
[2022-05-13] MEDS: ATORVASTATIN 20 MG TAB PO SCH (09:27)
[2022-05-13] MEDS: QUEtiapine FUMARATE 25 MG TAB PO SCH ×2 (09:28→21:00)
[2022-05-13] MEDS: metFORMIN (GLUCOPHAGE) 500MG TAB PO SCH ×2 (09:28→17:39)
[2022-05-13] MEDS: traMADol 50 MG TAB PO PRN (17:07)
[2022-05-13] MEDS: RAMELTEON 8 MG TAB (ROZEREM) PO SCH (21:00)
[2022-05-14] MEDS: traMADol 50 MG TAB PO PRN (01:32)
[2022-05-14] MEDS: INSULIN LISPRO (NovoLOG) PER UNIT SC SCH ×4 (07:30→21:00)
[2022-05-14] MEDS: LEVEMIR (INSULIN DETEMIR) 1 UNITS/0.01ML SC SCH (09:00)
[2022-05-14] MEDS: SODIUM CHLORIDE 1 GM TAB PO SCH ×2 (09:00→21:00)
[2022-05-14] MEDS: FLUoxetine 10 MG CAP PO SCH (09:00)
[2022-05-14] MEDS: ASPIRIN 81MG CHEW TABLET PO SCH (09:00)
[2022-05-14] MEDS: FLUTICASONE PROP 0.05% NASAL SPRAY 16 GM (FLONASE) NARES SCH ×2 (09:00→21:00)
[2022-05-14] MEDS: GABAPENTIN 100 MG CAP PO SCH ×2 (09:00→21:00)
[2022-05-14] MEDS: SODIUM CHLORIDE NASAL 0.65% SPRAY BTL (OCEAN) SCH ×2 (09:00→21:00)
[2022-05-14] MEDS: TAMSULOSIN 0.4 MG CAP PO SCH (09:00)
[2022-05-14] MEDS: APIXABAN 5 MG TAB (ELIQUIS) PO SCH ×2 (09:00→21:00)
[2022-05-14] MEDS: ATORVASTATIN 20 MG TAB PO SCH (09:14)
[2022-05-14] MEDS: metFORMIN (GLUCOPHAGE) 500MG TAB PO SCH ×2 (09:15→17:19)
[2022-05-14] MEDS: QUEtiapine FUMARATE 25 MG TAB PO SCH ×2 (09:15→21:00)
[2022-05-14 19:41] VITALS: BP 134/94
[2022-05-14] MEDS: RAMELTEON 8 MG TAB (ROZEREM) PO SCH (21:00)
[2022-05-15 05:00] VITALS: BP 139/78
[2022-05-15] MEDS: INSULIN LISPRO (NovoLOG) PER UNIT SC SCH ×4 (07:30→21:00)
[2022-05-15] MEDS: metFORMIN (GLUCOPHAGE) 500MG TAB PO SCH ×2 (08:00→18:00)
[2022-05-15] MEDS: GABAPENTIN 100 MG CAP PO SCH ×3 (09:00→23:09)
[2022-05-15] MEDS: SODIUM CHLORIDE 1 GM TAB PO SCH ×2 (09:00→21:00)
[2022-05-15] MEDS: SODIUM CHLORIDE NASAL 0.65% SPRAY BTL (OCEAN) SCH ×3 (09:00→23:09)
[2022-05-15] MEDS: ATORVASTATIN 20 MG TAB PO SCH (09:00)
[2022-05-15] MEDS: ASPIRIN 81MG CHEW TABLET PO SCH (09:00)
[2022-05-15] MEDS: FLUTICASONE PROP 0.05% NASAL SPRAY 16 GM (FLONASE) NARES SCH ×3 (09:00→23:09)
[2022-05-15] MEDS: LEVEMIR (INSULIN DETEMIR) 1 UNITS/0.01ML SC SCH (10:48)
[2022-05-15] MEDS: APIXABAN 5 MG TAB (ELIQUIS) PO SCH ×2 (10:48→21:00)
[2022-05-15] MEDS: FLUoxetine 10 MG CAP PO SCH (10:49)
[2022-05-15] MEDS: traMADol 50 MG TAB PO PRN ×2 (10:49→21:51)
[2022-05-15] MEDS: QUEtiapine FUMARATE 25 MG TAB PO SCH ×3 (10:49→23:09)
[2022-05-15] MEDS: TAMSULOSIN 0.4 MG CAP PO SCH (10:49)
[2022-05-15] MEDS: carisoprodoL 350 MG TAB PO PRN (16:48)
[2022-05-15] MEDS: RAMELTEON 8 MG TAB (ROZEREM) PO SCH (21:00)
[2022-05-15] MEDS: ACETAMINOPHEN TAB 650MG DOSE (2X325MG) PO PRN (21:52)
[2022-05-16] MEDS: carisoprodoL 350 MG TAB PO PRN (04:47)
[2022-05-16 06:00] VITALS: BP 134/85
[2022-05-16] MEDS: INSULIN LISPRO (NovoLOG) PER UNIT SC SCH ×4 (07:30→20:54)
[2022-05-16] MEDS: FLUTICASONE PROP 0.05% NASAL SPRAY 16 GM (FLONASE) NARES SCH ×2 (09:00→20:55)
[2022-05-16] MEDS: ASPIRIN 81MG CHEW TABLET PO SCH (09:00)
[2022-05-16] MEDS: LEVEMIR (INSULIN DETEMIR) 1 UNITS/0.01ML SC SCH (09:00)
[2022-05-16] MEDS: TAMSULOSIN 0.4 MG CAP PO SCH (09:00)
[2022-05-16] MEDS: SODIUM CHLORIDE NASAL 0.65% SPRAY BTL (OCEAN) SCH ×2 (09:00→20:55)
[2022-05-16] MEDS: GABAPENTIN 100 MG CAP PO SCH ×2 (09:00→20:34)
[2022-05-16] MEDS: APIXABAN 5 MG TAB (ELIQUIS) PO SCH ×2 (09:00→20:34)
[2022-05-16] MEDS: FLUoxetine 10 MG CAP PO SCH (09:00)
[2022-05-16] MEDS: SODIUM CHLORIDE 1 GM TAB PO SCH ×2 (09:00→20:34)
[2022-05-16] MEDS: metFORMIN (GLUCOPHAGE) 500MG TAB PO SCH ×2 (09:07→17:59)
[2022-05-16] MEDS: ACETAMINOPHEN TAB 650MG DOSE (2X325MG) PO PRN (09:08)
[2022-05-16] MEDS: QUEtiapine FUMARATE 25 MG TAB PO SCH ×2 (09:08→20:34)
[2022-05-16] MEDS: ATORVASTATIN 20 MG TAB PO SCH (09:08)
[2022-05-16] MEDS: traMADol 50 MG TAB PO PRN (12:31)
[2022-05-16] MEDS: RAMELTEON 8 MG TAB (ROZEREM) PO SCH (20:34)
[2022-05-17] MEDS: traMADol 50 MG TAB PO PRN (00:01)
[2022-05-17] MEDS: INSULIN LISPRO (NovoLOG) PER UNIT SC SCH ×3 (07:30→17:11)
[2022-05-17] MEDS: APIXABAN 5 MG TAB (ELIQUIS) PO SCH ×2 (08:00→09:00)
[2022-05-17] MEDS: ASPIRIN 81MG CHEW TABLET PO SCH ×2 (08:00→09:00)
[2022-05-17] MEDS: ATORVASTATIN 20 MG TAB PO SCH ×2 (08:00→09:00)
[2022-05-17] MEDS: FLUTICASONE PROP 0.05% NASAL SPRAY 16 GM (FLONASE) NARES SCH (08:00)
[2022-05-17] MEDS: QUEtiapine FUMARATE 25 MG TAB PO SCH ×2 (08:00→09:00)
[2022-05-17] MEDS: TAMSULOSIN 0.4 MG CAP PO SCH ×2 (08:00→09:00)
[2022-05-17] MEDS: FLUoxetine 10 MG CAP PO SCH ×2 (08:00→09:00)
[2022-05-17] MEDS: SODIUM CHLORIDE NASAL 0.65% SPRAY BTL (OCEAN) SCH (08:00)
[2022-05-17] MEDS: metFORMIN (GLUCOPHAGE) 500MG TAB PO SCH ×2 (08:00→17:40)
[2022-05-17] MEDS: LEVEMIR (INSULIN DETEMIR) 1 UNITS/0.01ML SC SCH (09:00)
[2022-05-17] MEDS: GABAPENTIN 100 MG CAP PO SCH (09:00)
[2022-05-17] MEDS: SODIUM CHLORIDE 1 GM TAB PO SCH (09:00)
[2022-05-17] MEDS: carisoprodoL 350 MG TAB PO PRN ×2 (12:19→18:42)
[2022-05-18] MEDS: APIXABAN 5 MG TAB (ELIQUIS) PO SCH ×3 (00:13→20:09)
[2022-05-18] MEDS: GABAPENTIN 100 MG CAP PO SCH ×2 (00:13→09:00)
[2022-05-18] MEDS: INSULIN LISPRO (NovoLOG) PER UNIT SC SCH ×4 (00:14→16:47)
[2022-05-18] MEDS: SODIUM CHLORIDE NASAL 0.65% SPRAY BTL (OCEAN) SCH ×3 (00:14→20:10)
[2022-05-18] MEDS: SODIUM CHLORIDE 1 GM TAB PO SCH ×2 (00:14→09:00)
[2022-05-18] MEDS: QUEtiapine FUMARATE 25 MG TAB PO SCH ×4 (00:14→20:09)
[2022-05-18] MEDS: RAMELTEON 8 MG TAB (ROZEREM) PO SCH (00:14)
[2022-05-18] MEDS: FLUTICASONE PROP 0.05% NASAL SPRAY 16 GM (FLONASE) NARES SCH ×3 (00:15→20:10)
[2022-05-18] MEDS: traMADol 50 MG TAB PO PRN (01:40)
[2022-05-18 06:00] VITALS: BP 156/81
[2022-05-18] MEDS: metFORMIN (GLUCOPHAGE) 500MG TAB PO SCH ×4 (08:00→18:59)
[2022-05-18] MEDS: ATORVASTATIN 20 MG TAB PO SCH (09:00)
[2022-05-18] MEDS: ASPIRIN 81MG CHEW TABLET PO SCH ×2 (09:00→09:12)
[2022-05-18] MEDS: LEVEMIR (INSULIN DETEMIR) 1 UNITS/0.01ML SC SCH (09:00)
[2022-05-18] MEDS: TAMSULOSIN 0.4 MG CAP PO SCH ×2 (09:00→09:13)
[2022-05-18] MEDS: FLUoxetine 10 MG CAP PO SCH (09:00)
[2022-05-18] MEDS: carisoprodoL 350 MG TAB PO PRN ×2 (09:12→20:10)
[2022-05-18] MEDS: NEOSPORIN TOP OINT 15GM TOP PRN (13:52)
[2022-05-18] MEDS: GLIMEPIRIDE 2 MG TAB PO SCH ×2 (17:30→18:59)
[2022-05-19] MEDS: GLIMEPIRIDE 2 MG TAB PO SCH ×3 (07:30→18:10)
[2022-05-19] MEDS: ATORVASTATIN 20 MG TAB PO SCH (09:00)
[2022-05-19] MEDS: APIXABAN 5 MG TAB (ELIQUIS) PO SCH ×2 (09:00→23:54)
[2022-05-19] MEDS: metFORMIN (GLUCOPHAGE) 500MG TAB PO SCH ×3 (09:43→18:10)
[2022-05-19] MEDS: QUEtiapine FUMARATE 25 MG TAB PO SCH ×2 (09:43→23:54)
[2022-05-19] MEDS: TAMSULOSIN 0.4 MG CAP PO SCH (09:43)
[2022-05-19] MEDS: ASPIRIN 81MG CHEW TABLET PO SCH (09:43)
[2022-05-19] MEDS: SODIUM CHLORIDE NASAL 0.65% SPRAY BTL (OCEAN) SCH ×2 (09:44→23:55)
[2022-05-19] MEDS: FLUTICASONE PROP 0.05% NASAL SPRAY 16 GM (FLONASE) NARES SCH ×2 (09:44→23:55)
[2022-05-19] MEDS: NEOSPORIN TOP OINT 15GM TOP PRN (09:46)
[2022-05-19] MEDS: MOM 30ML SUSPENSION UDC PO PRN (14:54)
[2022-05-19] MEDS: carisoprodoL 350 MG TAB PO PRN (19:48)
[2022-05-20] MEDS: traMADol 50 MG TAB PO PRN ×2 (01:30→19:53)
[2022-05-20 05:13] VITALS: BP 134/94
[2022-05-20] MEDS: GLIMEPIRIDE 2 MG TAB PO SCH ×2 (07:30→17:19)
[2022-05-20] MEDS: metFORMIN (GLUCOPHAGE) 500MG TAB PO SCH ×2 (07:53→17:19)
[2022-05-20] MEDS: ATORVASTATIN 20 MG TAB PO SCH (09:00)
[2022-05-20] MEDS: APIXABAN 5 MG TAB (ELIQUIS) PO SCH ×2 (09:00→19:56)
[2022-05-20] MEDS: TAMSULOSIN 0.4 MG CAP PO SCH (09:00)
[2022-05-20] MEDS: SODIUM CHLORIDE NASAL 0.65% SPRAY BTL (OCEAN) SCH ×2 (09:00→19:56)
[2022-05-20] MEDS: FLUTICASONE PROP 0.05% NASAL SPRAY 16 GM (FLONASE) NARES SCH ×2 (09:00→19:57)
[2022-05-20] MEDS: QUEtiapine FUMARATE 25 MG TAB PO SCH ×2 (09:00→19:56)
[2022-05-20] MEDS: ASPIRIN 81MG CHEW TABLET PO SCH (09:00)
[2022-05-21] MEDS: carisoprodoL 350 MG TAB PO PRN (03:43)
[2022-05-21 06:00] VITALS: BP 139/91
[2022-05-21] MEDS: TAMSULOSIN 0.4 MG CAP PO SCH ×2 (08:58→09:00)
[2022-05-21] MEDS: ASPIRIN 81MG CHEW TABLET PO SCH ×2 (08:58→09:00)
[2022-05-21] MEDS: APIXABAN 5 MG TAB (ELIQUIS) PO SCH ×3 (08:58→19:56)
[2022-05-21] MEDS: QUEtiapine FUMARATE 25 MG TAB PO SCH ×3 (08:58→19:56)
[2022-05-21] MEDS: ATORVASTATIN 20 MG TAB PO SCH ×2 (08:59→09:00)
[2022-05-21] MEDS: GLIMEPIRIDE 2 MG TAB PO SCH ×3 (08:59→17:30)
[2022-05-21] MEDS: metFORMIN (GLUCOPHAGE) 500MG TAB PO SCH ×3 (08:59→17:39)
[2022-05-21] MEDS: SODIUM CHLORIDE NASAL 0.65% SPRAY BTL (OCEAN) SCH ×2 (09:00→19:56)
[2022-05-21] MEDS: FLUTICASONE PROP 0.05% NASAL SPRAY 16 GM (FLONASE) NARES SCH ×2 (09:00→19:56)
[2022-05-21] MEDS: traMADol 50 MG TAB PO PRN (16:12)
[2022-05-22 06:00] VITALS: BP 145/88
[2022-05-22] MEDS: GLIMEPIRIDE 2 MG TAB PO SCH ×2 (07:30→17:30)
[2022-05-22] MEDS: metFORMIN (GLUCOPHAGE) 500MG TAB PO SCH ×3 (08:00→20:04)
[2022-05-22] MEDS: FLUTICASONE PROP 0.05% NASAL SPRAY 16 GM (FLONASE) NARES SCH ×2 (09:00→20:00)
[2022-05-22] MEDS: SODIUM CHLORIDE NASAL 0.65% SPRAY BTL (OCEAN) SCH ×2 (09:00→20:00)
[2022-05-22] MEDS: ASPIRIN 81MG CHEW TABLET PO SCH (09:00)
[2022-05-22] MEDS: ATORVASTATIN 20 MG TAB PO SCH (09:00)
[2022-05-22] MEDS: TAMSULOSIN 0.4 MG CAP PO SCH (09:00)
[2022-05-22] MEDS: QUEtiapine FUMARATE 25 MG TAB PO SCH ×2 (09:00→20:00)
[2022-05-22] MEDS: APIXABAN 5 MG TAB (ELIQUIS) PO SCH ×2 (09:00→20:00)
[2022-05-22] MEDS: traMADol 50 MG TAB PO PRN (15:23)
[2022-05-22] MEDS: NEOSPORIN TOP OINT 15GM TOP PRN (20:04)
[2022-05-22] MEDS: RAMELTEON 8 MG TAB (ROZEREM) PO PRN (21:26)
[2022-05-22 23:35] VITALS: BP 144/89
[2022-05-23 07:04] VITALS: BP 147/91
[2022-05-23] MEDS: GLIMEPIRIDE 2 MG TAB PO SCH ×2 (07:30→17:30)
[2022-05-23] MEDS: metFORMIN (GLUCOPHAGE) 500MG TAB PO SCH ×2 (08:00→18:00)
[2022-05-23] MEDS: ASPIRIN 81MG CHEW TABLET PO SCH (09:00)
[2022-05-23] MEDS: SODIUM CHLORIDE NASAL 0.65% SPRAY BTL (OCEAN) SCH ×2 (09:00→19:50)
[2022-05-23] MEDS: FLUTICASONE PROP 0.05% NASAL SPRAY 16 GM (FLONASE) NARES SCH ×2 (09:00→19:51)
[2022-05-23] MEDS: APIXABAN 5 MG TAB (ELIQUIS) PO SCH ×2 (09:00→19:49)
[2022-05-23] MEDS: QUEtiapine FUMARATE 25 MG TAB PO SCH ×2 (09:00→19:50)
[2022-05-23] MEDS: TAMSULOSIN 0.4 MG CAP PO SCH (09:00)
[2022-05-23] MEDS: ATORVASTATIN 20 MG TAB PO SCH (09:00)
[2022-05-24] MEDS: GLIMEPIRIDE 2 MG TAB PO SCH ×3 (07:30→17:36)
[2022-05-24] MEDS: TAMSULOSIN 0.4 MG CAP PO SCH (09:00)
[2022-05-24] MEDS: ATORVASTATIN 20 MG TAB PO SCH (09:00)
[2022-05-24] MEDS: APIXABAN 5 MG TAB (ELIQUIS) PO SCH ×2 (10:02→20:58)
[2022-05-24] MEDS: QUEtiapine FUMARATE 25 MG TAB PO SCH ×2 (10:02→20:58)
[2022-05-24] MEDS: carisoprodoL 350 MG TAB PO PRN (10:02)
[2022-05-24] MEDS: FLUTICASONE PROP 0.05% NASAL SPRAY 16 GM (FLONASE) NARES SCH ×2 (10:03→20:59)
[2022-05-24] MEDS: metFORMIN (GLUCOPHAGE) 500MG TAB PO SCH ×3 (10:03→17:39)
[2022-05-24] MEDS: SODIUM CHLORIDE NASAL 0.65% SPRAY BTL (OCEAN) SCH ×2 (10:03→20:59)
[2022-05-24] MEDS: ASPIRIN 81MG CHEW TABLET PO SCH (10:20)
[2022-05-24] MEDS: traMADol 50 MG TAB PO PRN (20:58)
[2022-05-25] MEDS: carisoprodoL 350 MG TAB PO PRN ×2 (03:54→23:40)
[2022-05-25 05:42] VITALS: BP 149/81
[2022-05-25] MEDS: metFORMIN (GLUCOPHAGE) 500MG TAB PO SCH ×2 (08:00→17:41)
[2022-05-25] MEDS: ATORVASTATIN 20 MG TAB PO SCH (08:59)
[2022-05-25] MEDS: APIXABAN 5 MG TAB (ELIQUIS) PO SCH ×2 (08:59→20:48)
[2022-05-25] MEDS: QUEtiapine FUMARATE 25 MG TAB PO SCH ×2 (08:59→20:48)
[2022-05-25] MEDS: ASPIRIN 81MG CHEW TABLET PO SCH (08:59)
[2022-05-25] MEDS: TAMSULOSIN 0.4 MG CAP PO SCH (08:59)
[2022-05-25] MEDS: SODIUM CHLORIDE NASAL 0.65% SPRAY BTL (OCEAN) SCH ×2 (08:59→20:48)
[2022-05-25] MEDS: GLIMEPIRIDE 2 MG TAB PO SCH ×2 (08:59→17:30)
[2022-05-25] MEDS: FLUTICASONE PROP 0.05% NASAL SPRAY 16 GM (FLONASE) NARES SCH ×2 (09:00→20:48)
[2022-05-25] MEDS: traMADol 50 MG TAB PO PRN (15:21)
[2022-05-26 05:40] VITALS: BP 151/93
[2022-05-26] MEDS: FLUTICASONE PROP 0.05% NASAL SPRAY 16 GM (FLONASE) NARES SCH ×2 (09:00→20:58)
[2022-05-26] MEDS: QUEtiapine FUMARATE 25 MG TAB PO SCH ×2 (09:00→20:59)
[2022-05-26] MEDS: TAMSULOSIN 0.4 MG CAP PO SCH (09:00)
[2022-05-26] MEDS: SODIUM CHLORIDE NASAL 0.65% SPRAY BTL (OCEAN) SCH ×2 (09:00→20:59)
[2022-05-26] MEDS: APIXABAN 5 MG TAB (ELIQUIS) PO SCH ×2 (09:00→20:59)
[2022-05-26] MEDS: ATORVASTATIN 20 MG TAB PO SCH (09:00)
[2022-05-26] MEDS: ASPIRIN 81MG CHEW TABLET PO SCH (09:00)
[2022-05-26] MEDS: GLIMEPIRIDE 2 MG TAB PO SCH ×2 (09:19→16:51)
[2022-05-26] MEDS: metFORMIN (GLUCOPHAGE) 500MG TAB PO SCH ×2 (09:19→16:51)
[2022-05-26] MEDS: MOM 30ML SUSPENSION UDC PO PRN (15:53)
[2022-05-26] MEDS: traMADol 50 MG TAB PO PRN (18:56)
[2022-05-26] MEDS: RAMELTEON 8 MG TAB (ROZEREM) PO PRN (20:59)
[2022-05-27] MEDS: traMADol 50 MG TAB PO PRN ×2 (03:05→11:43)
[2022-05-27 06:00] VITALS: BP 151/81
[2022-05-27] MEDS: GLIMEPIRIDE 2 MG TAB PO SCH ×2 (07:30→17:56)
[2022-05-27] MEDS: SODIUM CHLORIDE NASAL 0.65% SPRAY BTL (OCEAN) SCH ×2 (09:00→20:57)
[2022-05-27] MEDS: ASPIRIN 81MG CHEW TABLET PO SCH (09:00)
[2022-05-27] MEDS: FLUTICASONE PROP 0.05% NASAL SPRAY 16 GM (FLONASE) NARES SCH ×2 (09:00→20:57)
[2022-05-27] MEDS: ATORVASTATIN 20 MG TAB PO SCH (09:00)
[2022-05-27] MEDS: TAMSULOSIN 0.4 MG CAP PO SCH (09:00)
[2022-05-27] MEDS: APIXABAN 5 MG TAB (ELIQUIS) PO SCH ×2 (10:20→20:57)
[2022-05-27] MEDS: QUEtiapine FUMARATE 25 MG TAB PO SCH ×2 (10:20→20:57)
[2022-05-27] MEDS: metFORMIN (GLUCOPHAGE) 500MG TAB PO SCH ×2 (10:21→17:56)
[2022-05-27] MEDS: carisoprodoL 350 MG TAB PO PRN (16:59)
[2022-05-28] MEDS: traMADol 50 MG TAB PO PRN ×2 (06:13→16:22)
[2022-05-28] MEDS: metFORMIN (GLUCOPHAGE) 500MG TAB PO SCH ×2 (08:00→16:22)
[2022-05-28] MEDS: APIXABAN 5 MG TAB (ELIQUIS) PO SCH ×2 (08:30→20:01)
[2022-05-28] MEDS: GLIMEPIRIDE 2 MG TAB PO SCH ×2 (08:30→16:22)
[2022-05-28] MEDS: ASPIRIN 81MG CHEW TABLET PO SCH (08:30)
[2022-05-28] MEDS: ATORVASTATIN 20 MG TAB PO SCH (08:31)
[2022-05-28] MEDS: FLUTICASONE PROP 0.05% NASAL SPRAY 16 GM (FLONASE) NARES SCH ×2 (08:31→20:01)
[2022-05-28] MEDS: SODIUM CHLORIDE NASAL 0.65% SPRAY BTL (OCEAN) SCH ×2 (08:31→20:01)
[2022-05-28] MEDS: QUEtiapine FUMARATE 25 MG TAB PO SCH ×2 (08:31→20:01)
[2022-05-28] MEDS: TAMSULOSIN 0.4 MG CAP PO SCH (08:31)
[2022-05-28] MEDS: carisoprodoL 350 MG TAB PO PRN (22:26)
[2022-05-29 06:00] VITALS: BP 155/92
[2022-05-29] MEDS: GLIMEPIRIDE 2 MG TAB PO SCH ×2 (07:30→17:14)
[2022-05-29] MEDS: metFORMIN (GLUCOPHAGE) 500MG TAB PO SCH ×2 (08:00→17:14)
[2022-05-29] MEDS: QUEtiapine FUMARATE 25 MG TAB PO SCH ×2 (08:28→20:07)
[2022-05-29] MEDS: SODIUM CHLORIDE NASAL 0.65% SPRAY BTL (OCEAN) SCH ×2 (08:28→20:08)
[2022-05-29] MEDS: APIXABAN 5 MG TAB (ELIQUIS) PO SCH ×2 (08:28→20:07)
[2022-05-29] MEDS: ATORVASTATIN 20 MG TAB PO SCH (08:28)
[2022-05-29] MEDS: ASPIRIN 81MG CHEW TABLET PO SCH (08:28)
[2022-05-29] MEDS: FLUTICASONE PROP 0.05% NASAL SPRAY 16 GM (FLONASE) NARES SCH ×2 (08:28→20:08)
[2022-05-29] MEDS: TAMSULOSIN 0.4 MG CAP PO SCH (08:28)
[2022-05-29] MEDS: traMADol 50 MG TAB PO PRN ×2 (11:34→20:07)
[2022-05-29] MEDS: ACETAMINOPHEN TAB 650MG DOSE (2X325MG) PO PRN (18:07)
[2022-05-29] MEDS: RAMELTEON 8 MG TAB (ROZEREM) PO PRN (20:07)
[2022-05-29] MEDS: guaiFENesin 200 MG TAB PO PRN (20:07)
[2022-05-29] MEDS: SENOKOT S TAB PO PRN (20:07)
[2022-05-30 06:37] VITALS: BP 154/92
[2022-05-30] MEDS: GLIMEPIRIDE 2 MG TAB PO SCH ×2 (07:30→17:30)
[2022-05-30] MEDS: metFORMIN (GLUCOPHAGE) 500MG TAB PO SCH ×2 (08:00→17:33)
[2022-05-30] MEDS: APIXABAN 5 MG TAB (ELIQUIS) PO SCH ×2 (08:18→20:23)
[2022-05-30] MEDS: TAMSULOSIN 0.4 MG CAP PO SCH (08:18)
[2022-05-30] MEDS: ASPIRIN 81MG CHEW TABLET PO SCH (08:18)
[2022-05-30] MEDS: ATORVASTATIN 20 MG TAB PO SCH (08:18)
[2022-05-30] MEDS: QUEtiapine FUMARATE 25 MG TAB PO SCH ×2 (08:19→20:23)
[2022-05-30] MEDS: FLUTICASONE PROP 0.05% NASAL SPRAY 16 GM (FLONASE) NARES SCH ×2 (08:19→20:23)
[2022-05-30] MEDS: SODIUM CHLORIDE NASAL 0.65% SPRAY BTL (OCEAN) SCH ×2 (08:19→20:23)
[2022-05-30] MEDS: traMADol 50 MG TAB PO PRN (16:58)
[2022-05-30] MEDS: guaiFENesin 200 MG TAB PO PRN (20:16)
[2022-05-30] MEDS: RAMELTEON 8 MG TAB (ROZEREM) PO PRN (20:16)
[2022-05-30] MEDS: ACETAMINOPHEN TAB 650MG DOSE (2X325MG) PO PRN (20:17)
[2022-05-31 06:42] VITALS: BP 150/72
[2022-05-31] MEDS: GLIMEPIRIDE 2 MG TAB PO SCH ×2 (07:30→16:49)
[2022-05-31] MEDS: metFORMIN (GLUCOPHAGE) 500MG TAB PO SCH ×2 (08:00→16:49)
[2022-05-31] MEDS: APIXABAN 5 MG TAB (ELIQUIS) PO SCH ×2 (08:12→19:56)
[2022-05-31] MEDS: TAMSULOSIN 0.4 MG CAP PO SCH (08:12)
[2022-05-31] MEDS: FLUTICASONE PROP 0.05% NASAL SPRAY 16 GM (FLONASE) NARES SCH ×2 (08:12→19:57)
[2022-05-31] MEDS: ASPIRIN 81MG CHEW TABLET PO SCH (08:12)
[2022-05-31] MEDS: ATORVASTATIN 20 MG TAB PO SCH (08:12)
[2022-05-31] MEDS: SODIUM CHLORIDE NASAL 0.65% SPRAY BTL (OCEAN) SCH ×2 (08:12→19:57)
[2022-05-31] MEDS: QUEtiapine FUMARATE 25 MG TAB PO SCH ×2 (08:12→19:56)
[2022-05-31] MEDS: RAMELTEON 8 MG TAB (ROZEREM) PO PRN (19:56)
[2022-05-31] MEDS: guaiFENesin 200 MG TAB PO PRN (19:56)
[2022-05-31] MEDS: traMADol 50 MG TAB PO PRN (19:57)
[2022-05-31] MEDS: ACETAMINOPHEN TAB 650MG DOSE (2X325MG) PO PRN (22:01)
[2022-06-01 05:00] VITALS: BP 151/92
[2022-06-01] MEDS: GLIMEPIRIDE 2 MG TAB PO SCH ×2 (07:30→16:55)
[2022-06-01] MEDS: metFORMIN (GLUCOPHAGE) 500MG TAB PO SCH ×2 (08:00→16:55)
[2022-06-01] MEDS: APIXABAN 5 MG TAB (ELIQUIS) PO SCH ×2 (08:49→21:58)
[2022-06-01] MEDS: TAMSULOSIN 0.4 MG CAP PO SCH (08:49)
[2022-06-01] MEDS: ATORVASTATIN 20 MG TAB PO SCH (08:49)
[2022-06-01] MEDS: QUEtiapine FUMARATE 25 MG TAB PO SCH ×2 (08:49→21:59)
[2022-06-01] MEDS: ASPIRIN 81MG CHEW TABLET PO SCH (08:49)
[2022-06-01] MEDS: FLUTICASONE PROP 0.05% NASAL SPRAY 16 GM (FLONASE) NARES SCH ×2 (08:50→21:58)
[2022-06-01] MEDS: SODIUM CHLORIDE NASAL 0.65% SPRAY BTL (OCEAN) SCH ×2 (08:50→21:00)
[2022-06-01] MEDS: traMADol 50 MG TAB PO PRN ×2 (11:21→22:01)
[2022-06-01] MEDS: carisoprodoL 350 MG TAB PO PRN (15:51)
[2022-06-01 21:00] VITALS: BP 146/70
[2022-06-01] MEDS: guaiFENesin 200 MG TAB PO PRN (21:58)
[2022-06-01] MEDS: RAMELTEON 8 MG TAB (ROZEREM) PO PRN (21:58)
[2022-06-01] MEDS: NEOSPORIN TOP OINT 15GM TOP PRN (22:00)
[2022-06-02] MEDS: carisoprodoL 350 MG TAB PO PRN ×2 (00:50→21:50)
[2022-06-02 04:30] VITALS: BP 117/73
[2022-06-02] MEDS: metFORMIN (GLUCOPHAGE) 500MG TAB PO SCH ×2 (06:50→17:55)
[2022-06-02] MEDS: GLIMEPIRIDE 2 MG TAB PO SCH ×2 (06:51→17:30)
[2022-06-02] MEDS: APIXABAN 5 MG TAB (ELIQUIS) PO SCH ×2 (08:45→20:57)
[2022-06-02] MEDS: QUEtiapine FUMARATE 25 MG TAB PO SCH ×2 (08:45→20:57)
[2022-06-02] MEDS: ASPIRIN 81MG CHEW TABLET PO SCH (08:45)
[2022-06-02] MEDS: TAMSULOSIN 0.4 MG CAP PO SCH (08:45)
[2022-06-02] MEDS: SODIUM CHLORIDE NASAL 0.65% SPRAY BTL (OCEAN) SCH ×2 (08:45→20:59)
[2022-06-02] MEDS: ATORVASTATIN 20 MG TAB PO SCH (08:45)
[2022-06-02] MEDS: traMADol 50 MG TAB PO PRN (14:58)
[2022-06-02] MEDS: NEOSPORIN TOP OINT 15GM TOP PRN (20:58)
[2022-06-02] MEDS: ACETAMINOPHEN TAB 650MG DOSE (2X325MG) PO PRN (20:58)
[2022-06-02] MEDS: FLUTICASONE PROP 0.05% NASAL SPRAY 16 GM (FLONASE) NARES SCH (20:59)
[2022-06-03 06:00] VITALS: BP 139/87
[2022-06-03] MEDS: ASPIRIN 81MG CHEW TABLET PO SCH (10:23)
[2022-06-03] MEDS: APIXABAN 5 MG TAB (ELIQUIS) PO SCH ×2 (10:23→21:00)
[2022-06-03] MEDS: GLIMEPIRIDE 2 MG TAB PO SCH ×2 (10:23→17:22)
[2022-06-03] MEDS: metFORMIN (GLUCOPHAGE) 500MG TAB PO SCH ×2 (10:23→17:18)
[2022-06-03] MEDS: SODIUM CHLORIDE NASAL 0.65% SPRAY BTL (OCEAN) SCH ×2 (10:24→21:45)
[2022-06-03] MEDS: ATORVASTATIN 20 MG TAB PO SCH (10:24)
[2022-06-03] MEDS: TAMSULOSIN 0.4 MG CAP PO SCH (10:24)
[2022-06-03] MEDS: QUEtiapine FUMARATE 25 MG TAB PO SCH ×2 (10:24→21:00)
[2022-06-03] MEDS: traMADol 50 MG TAB PO PRN ×2 (12:48→21:45)
[2022-06-03] MEDS: carisoprodoL 350 MG TAB PO PRN (16:10)
[2022-06-03] MEDS: FLUTICASONE PROP 0.05% NASAL SPRAY 16 GM (FLONASE) NARES SCH (21:45)
[2022-06-04 06:00] VITALS: BP 153/89
[2022-06-04] MEDS: metFORMIN (GLUCOPHAGE) 500MG TAB PO SCH ×2 (11:09→17:37)
[2022-06-04] MEDS: GLIMEPIRIDE 2 MG TAB PO SCH ×2 (11:09→17:30)
[2022-06-04] MEDS: ATORVASTATIN 20 MG TAB PO SCH (11:10)
[2022-06-04] MEDS: ASPIRIN 81MG CHEW TABLET PO SCH (11:10)
[2022-06-04] MEDS: APIXABAN 5 MG TAB (ELIQUIS) PO SCH ×2 (11:10→20:09)
[2022-06-04] MEDS: TAMSULOSIN 0.4 MG CAP PO SCH (11:10)
[2022-06-04] MEDS: SODIUM CHLORIDE NASAL 0.65% SPRAY BTL (OCEAN) SCH ×2 (11:10→20:09)
[2022-06-04] MEDS: QUEtiapine FUMARATE 25 MG TAB PO SCH ×2 (11:11→20:09)
[2022-06-04] MEDS: traMADol 50 MG TAB PO PRN (13:45)
[2022-06-04] MEDS: FLUTICASONE PROP 0.05% NASAL SPRAY 16 GM (FLONASE) NARES SCH (20:09)
[2022-06-04 20:11] VITALS: BP 136/82
[2022-06-05 06:00] VITALS: BP 122/79
[2022-06-05] MEDS: traMADol 50 MG TAB PO PRN ×2 (06:37→16:38)
[2022-06-05] MEDS: ASPIRIN 81MG CHEW TABLET PO SCH (10:03)
[2022-06-05] MEDS: metFORMIN (GLUCOPHAGE) 500MG TAB PO SCH ×2 (10:03→16:37)
[2022-06-05] MEDS: GLIMEPIRIDE 2 MG TAB PO SCH ×2 (10:03→16:37)
[2022-06-05] MEDS: ATORVASTATIN 20 MG TAB PO SCH (10:04)
[2022-06-05] MEDS: APIXABAN 5 MG TAB (ELIQUIS) PO SCH ×2 (10:04→20:15)
[2022-06-05] MEDS: TAMSULOSIN 0.4 MG CAP PO SCH (10:04)
[2022-06-05] MEDS: SODIUM CHLORIDE NASAL 0.65% SPRAY BTL (OCEAN) SCH ×2 (10:05→20:17)
[2022-06-05] MEDS: QUEtiapine FUMARATE 25 MG TAB PO SCH ×2 (10:05→20:15)
[2022-06-05] MEDS: carisoprodoL 350 MG TAB PO PRN (16:37)
[2022-06-05] MEDS: ACETAMINOPHEN TAB 650MG DOSE (2X325MG) PO PRN (20:15)
[2022-06-05] MEDS: FLUTICASONE PROP 0.05% NASAL SPRAY 16 GM (FLONASE) NARES SCH (20:16)
[2022-06-06 04:00] VITALS: BP 126/81
[2022-06-06] MEDS: carisoprodoL 350 MG TAB PO PRN ×2 (04:10→20:15)
[2022-06-06] MEDS: GLIMEPIRIDE 2 MG TAB PO SCH ×2 (10:14→17:30)
[2022-06-06] MEDS: metFORMIN (GLUCOPHAGE) 500MG TAB PO SCH ×2 (10:14→18:00)
[2022-06-06] MEDS: ASPIRIN 81MG CHEW TABLET PO SCH (10:14)
[2022-06-06] MEDS: QUEtiapine FUMARATE 25 MG TAB PO SCH ×2 (10:15→20:14)
[2022-06-06] MEDS: ATORVASTATIN 20 MG TAB PO SCH (10:15)
[2022-06-06] MEDS: APIXABAN 5 MG TAB (ELIQUIS) PO SCH ×2 (10:15→20:14)
[2022-06-06] MEDS: TAMSULOSIN 0.4 MG CAP PO SCH (10:15)
[2022-06-06] MEDS: SODIUM CHLORIDE NASAL 0.65% SPRAY BTL (OCEAN) SCH ×2 (10:16→20:16)
[2022-06-06] MEDS: ACETAMINOPHEN TAB 650MG DOSE (2X325MG) PO PRN (11:39)
[2022-06-06] MEDS: traMADol 50 MG TAB PO PRN (13:06)
[2022-06-06] MEDS: NEOSPORIN TOP OINT 15GM TOP PRN (20:15)
[2022-06-06] MEDS: FLUTICASONE PROP 0.05% NASAL SPRAY 16 GM (FLONASE) NARES SCH (20:15)
[2022-06-06 21:00] VITALS: BP 138/82
[2022-06-07] MEDS: RAMELTEON 8 MG TAB (ROZEREM) PO PRN (01:48)
[2022-06-07] MEDS: traMADol 50 MG TAB PO PRN ×4 (01:49→23:40)
[2022-06-07 04:50] VITALS: BP 141/81
[2022-06-07] MEDS: TAMSULOSIN 0.4 MG CAP PO SCH (08:02)
[2022-06-07] MEDS: ATORVASTATIN 20 MG TAB PO SCH (08:02)
[2022-06-07] MEDS: ASPIRIN 81MG CHEW TABLET PO SCH (08:02)
[2022-06-07] MEDS: GLIMEPIRIDE 2 MG TAB PO SCH ×2 (08:02→18:39)
[2022-06-07] MEDS: QUEtiapine FUMARATE 25 MG TAB PO SCH ×2 (08:02→20:41)
[2022-06-07] MEDS: APIXABAN 5 MG TAB (ELIQUIS) PO SCH ×2 (08:03→20:41)
[2022-06-07] MEDS: metFORMIN (GLUCOPHAGE) 500MG TAB PO SCH ×2 (08:05→18:40)
[2022-06-07] MEDS: SODIUM CHLORIDE NASAL 0.65% SPRAY BTL (OCEAN) SCH ×2 (08:06→20:41)
[2022-06-07] MEDS: carisoprodoL 350 MG TAB PO PRN (15:51)
[2022-06-07] MEDS: FLUTICASONE PROP 0.05% NASAL SPRAY 16 GM (FLONASE) NARES SCH (20:41)
[2022-06-08] MEDS: ACETAMINOPHEN TAB 650MG DOSE (2X325MG) PO PRN ×2 (01:46→15:50)
[2022-06-08 05:56] VITALS: BP 148/64
[2022-06-08] MEDS: ATORVASTATIN 20 MG TAB PO SCH (09:00)
[2022-06-08] MEDS: SODIUM CHLORIDE NASAL 0.65% SPRAY BTL (OCEAN) SCH ×2 (09:00→20:15)
[2022-06-08] MEDS: QUEtiapine FUMARATE 25 MG TAB PO SCH ×3 (09:00→20:15)
[2022-06-08] MEDS: APIXABAN 5 MG TAB (ELIQUIS) PO SCH ×3 (09:00→20:15)
[2022-06-08] MEDS: TAMSULOSIN 0.4 MG CAP PO SCH ×2 (09:00→11:07)
[2022-06-08] MEDS: ASPIRIN 81MG CHEW TABLET PO SCH ×2 (09:00→11:07)
[2022-06-08] MEDS: GLIMEPIRIDE 2 MG TAB PO SCH ×2 (09:43→16:56)
[2022-06-08] MEDS: metFORMIN (GLUCOPHAGE) 500MG TAB PO SCH ×2 (09:43→16:55)
[2022-06-08] MEDS: traMADol 50 MG TAB PO PRN ×2 (10:58→19:53)
[2022-06-08] MEDS: FLUTICASONE PROP 0.05% NASAL SPRAY 16 GM (FLONASE) NARES SCH (20:15)
[2022-06-09] MEDS: traMADol 50 MG TAB PO PRN ×2 (06:14→14:34)
[2022-06-09 06:16] VITALS: BP 145/86
[2022-06-09] MEDS: APIXABAN 5 MG TAB (ELIQUIS) PO SCH ×2 (09:00→20:20)
[2022-06-09] MEDS: SODIUM CHLORIDE NASAL 0.65% SPRAY BTL (OCEAN) SCH ×2 (09:00→20:21)
[2022-06-09] MEDS: ATORVASTATIN 20 MG TAB PO SCH (09:00)
[2022-06-09] MEDS: TAMSULOSIN 0.4 MG CAP PO SCH (09:00)
[2022-06-09] MEDS: ASPIRIN 81MG CHEW TABLET PO SCH (09:00)
[2022-06-09] MEDS: QUEtiapine FUMARATE 25 MG TAB PO SCH ×2 (09:00→20:21)
[2022-06-09] MEDS: metFORMIN (GLUCOPHAGE) 500MG TAB PO SCH ×2 (09:50→16:45)
[2022-06-09] MEDS: GLIMEPIRIDE 2 MG TAB PO SCH ×2 (09:50→16:45)
[2022-06-09] MEDS: ACETAMINOPHEN TAB 650MG DOSE (2X325MG) PO PRN ×2 (11:17→18:19)
[2022-06-09] MEDS: RAMELTEON 8 MG TAB (ROZEREM) PO PRN (20:20)
[2022-06-09] MEDS: FLUTICASONE PROP 0.05% NASAL SPRAY 16 GM (FLONASE) NARES SCH (20:21)
[2022-06-09] MEDS: carisoprodoL 350 MG TAB PO PRN (23:49)
[2022-06-10] MEDS: GLIMEPIRIDE 2 MG TAB PO SCH ×2 (07:30→17:23)
[2022-06-10] MEDS: metFORMIN (GLUCOPHAGE) 500MG TAB PO SCH ×2 (08:00→17:23)
[2022-06-10] MEDS: traMADol 50 MG TAB PO PRN ×2 (08:29→17:24)
[2022-06-10] MEDS: SODIUM CHLORIDE NASAL 0.65% SPRAY BTL (OCEAN) SCH ×2 (09:00→20:29)
[2022-06-10] MEDS: ATORVASTATIN 20 MG TAB PO SCH (09:00)
[2022-06-10] MEDS: TAMSULOSIN 0.4 MG CAP PO SCH (09:00)
[2022-06-10] MEDS: ASPIRIN 81MG CHEW TABLET PO SCH (09:00)
[2022-06-10] MEDS: QUEtiapine FUMARATE 25 MG TAB PO SCH ×2 (09:00→20:28)
[2022-06-10] MEDS: APIXABAN 5 MG TAB (ELIQUIS) PO SCH ×2 (09:00→20:28)
[2022-06-10] MEDS: carisoprodoL 350 MG TAB PO PRN (13:12)
[2022-06-10] MEDS: FLUTICASONE PROP 0.05% NASAL SPRAY 16 GM (FLONASE) NARES SCH (20:28)
[2022-06-10] MEDS: RAMELTEON 8 MG TAB (ROZEREM) PO PRN (20:28)
[2022-06-10] MEDS: ACETAMINOPHEN TAB 650MG DOSE (2X325MG) PO PRN (20:29)
[2022-06-11] MEDS: carisoprodoL 350 MG TAB PO PRN ×3 (00:12→23:23)
[2022-06-11 05:10] VITALS: BP 159/88
[2022-06-11] MEDS: GLIMEPIRIDE 2 MG TAB PO SCH ×2 (07:30→17:30)
[2022-06-11] MEDS: metFORMIN (GLUCOPHAGE) 500MG TAB PO SCH ×2 (08:00→18:00)
[2022-06-11] MEDS: ATORVASTATIN 20 MG TAB PO SCH (09:00)
[2022-06-11] MEDS: QUEtiapine FUMARATE 25 MG TAB PO SCH ×2 (09:00→20:21)
[2022-06-11] MEDS: SODIUM CHLORIDE NASAL 0.65% SPRAY BTL (OCEAN) SCH ×2 (09:00→20:11)
[2022-06-11] MEDS: APIXABAN 5 MG TAB (ELIQUIS) PO SCH ×2 (09:00→20:21)
[2022-06-11] MEDS: TAMSULOSIN 0.4 MG CAP PO SCH (09:00)
[2022-06-11] MEDS: ASPIRIN 81MG CHEW TABLET PO SCH (09:00)
[2022-06-11] MEDS: traMADol 50 MG TAB PO PRN ×2 (11:56→20:09)
[2022-06-11] MEDS: ACETAMINOPHEN TAB 650MG DOSE (2X325MG) PO PRN ×2 (14:58→20:08)
[2022-06-11] MEDS: FLUTICASONE PROP 0.05% NASAL SPRAY 16 GM (FLONASE) NARES SCH (20:11)
[2022-06-12] MEDS: ACETAMINOPHEN TAB 650MG DOSE (2X325MG) PO PRN (03:51)
[2022-06-12] MEDS: traMADol 50 MG TAB PO PRN ×3 (04:20→22:14)
[2022-06-12 05:45] VITALS: BP 162/89
[2022-06-12] MEDS: GLIMEPIRIDE 2 MG TAB PO SCH ×2 (07:30→17:30)
[2022-06-12] MEDS: metFORMIN (GLUCOPHAGE) 500MG TAB PO SCH ×2 (08:00→18:00)
[2022-06-12] MEDS: ASPIRIN 81MG CHEW TABLET PO SCH (09:00)
[2022-06-12] MEDS: SODIUM CHLORIDE NASAL 0.65% SPRAY BTL (OCEAN) SCH ×3 (09:00→19:57)
[2022-06-12] MEDS: QUEtiapine FUMARATE 25 MG TAB PO SCH ×2 (09:00→19:57)
[2022-06-12] MEDS: ATORVASTATIN 20 MG TAB PO SCH (09:00)
[2022-06-12] MEDS: TAMSULOSIN 0.4 MG CAP PO SCH (09:00)
[2022-06-12] MEDS: APIXABAN 5 MG TAB (ELIQUIS) PO SCH ×2 (09:00→19:57)
[2022-06-12] MEDS: carisoprodoL 350 MG TAB PO PRN ×2 (11:23→19:48)
[2022-06-12] MEDS: RAMELTEON 8 MG TAB (ROZEREM) PO PRN (19:55)
[2022-06-12] MEDS: FLUTICASONE PROP 0.05% NASAL SPRAY 16 GM (FLONASE) NARES SCH (19:56)
[2022-06-13] MEDS: carisoprodoL 350 MG TAB PO PRN (05:30)
[2022-06-13 05:36] VITALS: BP 154/89
[2022-06-13] MEDS: GLIMEPIRIDE 2 MG TAB PO SCH ×2 (07:30→17:07)
[2022-06-13] MEDS: metFORMIN (GLUCOPHAGE) 500MG TAB PO SCH ×2 (07:56→17:07)
[2022-06-13] MEDS: SODIUM CHLORIDE NASAL 0.65% SPRAY BTL (OCEAN) SCH ×2 (09:00→19:51)
[2022-06-13] MEDS: APIXABAN 5 MG TAB (ELIQUIS) PO SCH ×2 (09:00→19:48)
[2022-06-13] MEDS: QUEtiapine FUMARATE 25 MG TAB PO SCH ×2 (09:00→19:48)
[2022-06-13] MEDS: TAMSULOSIN 0.4 MG CAP PO SCH (09:00)
[2022-06-13] MEDS: ASPIRIN 81MG CHEW TABLET PO SCH (09:00)
[2022-06-13] MEDS: ATORVASTATIN 20 MG TAB PO SCH (09:00)
[2022-06-13] MEDS: traMADol 50 MG TAB PO PRN (10:08)
[2022-06-13] MEDS: PSEUDOEPHEDRINE 30 MG TAB PO PRN (15:44)
[2022-06-13] MEDS: guaiFENesin 200 MG TAB PO PRN (16:37)
[2022-06-13] MEDS: IBUPROFEN 800 MG TAB PO PRN (18:24)
[2022-06-13] MEDS: FLUTICASONE PROP 0.05% NASAL SPRAY 16 GM (FLONASE) NARES SCH (19:48)
[2022-06-14] MEDS: IBUPROFEN 800 MG TAB PO PRN ×3 (02:35→17:49)
[2022-06-14] MEDS: GLIMEPIRIDE 2 MG TAB PO SCH ×2 (07:30→17:13)
[2022-06-14] MEDS: metFORMIN (GLUCOPHAGE) 500MG TAB PO SCH ×2 (07:36→17:13)
[2022-06-14] MEDS: ASPIRIN 81MG CHEW TABLET PO SCH (09:00)
[2022-06-14] MEDS: ATORVASTATIN 20 MG TAB PO SCH (09:00)
[2022-06-14] MEDS: TAMSULOSIN 0.4 MG CAP PO SCH (09:00)
[2022-06-14] MEDS: APIXABAN 5 MG TAB (ELIQUIS) PO SCH ×2 (10:34→21:00)
[2022-06-14] MEDS: PSEUDOEPHEDRINE 30 MG TAB PO PRN ×2 (10:34→17:50)
[2022-06-14] MEDS: QUEtiapine FUMARATE 25 MG TAB PO SCH ×2 (10:34→21:00)
[2022-06-14] MEDS: SODIUM CHLORIDE NASAL 0.65% SPRAY BTL (OCEAN) SCH ×2 (10:35→21:00)
[2022-06-14] MEDS: traMADol 50 MG TAB PO PRN (12:31)
[2022-06-14] MEDS: FLUTICASONE PROP 0.05% NASAL SPRAY 16 GM (FLONASE) NARES SCH (21:00)
[2022-06-14] MEDS: carisoprodoL 350 MG TAB PO PRN (21:51)
[2022-06-14 21:53] VITALS: BP 153/88
[2022-06-14] MEDS: RAMELTEON 8 MG TAB (ROZEREM) PO PRN (21:55)
[2022-06-15] MEDS: traMADol 50 MG TAB PO PRN ×2 (00:37→17:33)
[2022-06-15] MEDS: FLUTICASONE PROP 0.05% NASAL SPRAY 16 GM (FLONASE) NARES SCH (00:38)
[2022-06-15 04:40] VITALS: BP 145/84
[2022-06-15] MEDS: GLIMEPIRIDE 2 MG TAB PO SCH ×2 (07:30→17:30)
[2022-06-15] MEDS: metFORMIN (GLUCOPHAGE) 500MG TAB PO SCH ×2 (08:00→17:46)
[2022-06-15] MEDS: SODIUM CHLORIDE NASAL 0.65% SPRAY BTL (OCEAN) SCH ×2 (09:00→21:00)
[2022-06-15] MEDS: APIXABAN 5 MG TAB (ELIQUIS) PO SCH ×2 (09:00→21:00)
[2022-06-15] MEDS: ATORVASTATIN 20 MG TAB PO SCH (09:00)
[2022-06-15] MEDS: TAMSULOSIN 0.4 MG CAP PO SCH (09:00)
[2022-06-15] MEDS: QUEtiapine FUMARATE 25 MG TAB PO SCH ×2 (09:00→21:00)
[2022-06-15] MEDS: ASPIRIN 81MG CHEW TABLET PO SCH (09:00)
[2022-06-15] MEDS: PSEUDOEPHEDRINE 30 MG TAB PO PRN ×2 (11:38→21:35)
[2022-06-15] MEDS: carisoprodoL 350 MG TAB PO PRN (15:23)
[2022-06-15] MEDS: guaiFENesin 200 MG TAB PO PRN ×2 (17:33→21:18)
[2022-06-16] MEDS: IBUPROFEN 800 MG TAB PO PRN ×3 (02:37→19:56)
[2022-06-16 06:00] VITALS: BP 155/94
[2022-06-16] MEDS: guaiFENesin 200 MG TAB PO PRN ×3 (06:12→17:22)
[2022-06-16] MEDS: PSEUDOEPHEDRINE 30 MG TAB PO PRN ×2 (06:24→15:36)
[2022-06-16] MEDS: GLIMEPIRIDE 2 MG TAB PO SCH ×2 (07:30→17:23)
[2022-06-16] MEDS: metFORMIN (GLUCOPHAGE) 500MG TAB PO SCH ×2 (07:49→17:23)
[2022-06-16] MEDS: ATORVASTATIN 20 MG TAB PO SCH (09:00)
[2022-06-16] MEDS: TAMSULOSIN 0.4 MG CAP PO SCH (09:00)
[2022-06-16] MEDS: SODIUM CHLORIDE NASAL 0.65% SPRAY BTL (OCEAN) SCH ×2 (09:00→19:58)
[2022-06-16] MEDS: APIXABAN 5 MG TAB (ELIQUIS) PO SCH ×2 (09:00→19:55)
[2022-06-16] MEDS: QUEtiapine FUMARATE 25 MG TAB PO SCH ×2 (09:00→19:56)
[2022-06-16] MEDS: ASPIRIN 81MG CHEW TABLET PO SCH (09:00)
[2022-06-16] MEDS: carisoprodoL 350 MG TAB PO PRN (15:39)
[2022-06-16] MEDS: traMADol 50 MG TAB PO PRN (17:22)
[2022-06-16] MEDS: RAMELTEON 8 MG TAB (ROZEREM) PO PRN (19:56)
[2022-06-16] MEDS: FLUTICASONE PROP 0.05% NASAL SPRAY 16 GM (FLONASE) NARES SCH (19:58)
[2022-06-17] MEDS: traMADol 50 MG TAB PO PRN ×2 (03:04→16:34)
[2022-06-17] MEDS: QUEtiapine FUMARATE 25 MG TAB PO SCH ×3 (08:21→20:15)
[2022-06-17] MEDS: guaiFENesin 200 MG TAB PO PRN ×2 (08:21→09:21)
[2022-06-17] MEDS: APIXABAN 5 MG TAB (ELIQUIS) PO SCH ×3 (08:21→20:15)
[2022-06-17] MEDS: TAMSULOSIN 0.4 MG CAP PO SCH ×2 (08:21→09:20)
[2022-06-17] MEDS: ATORVASTATIN 20 MG TAB PO SCH ×2 (08:21→09:21)
[2022-06-17] MEDS: PSEUDOEPHEDRINE 30 MG TAB PO PRN ×2 (08:21→09:21)
[2022-06-17] MEDS: ASPIRIN 81MG CHEW TABLET PO SCH ×2 (08:21→09:22)
[2022-06-17] MEDS: metFORMIN (GLUCOPHAGE) 500MG TAB PO SCH ×3 (08:22→18:42)
[2022-06-17] MEDS: GLIMEPIRIDE 2 MG TAB PO SCH ×3 (08:22→18:42)
[2022-06-17] MEDS: IBUPROFEN 800 MG TAB PO PRN ×2 (09:22→18:41)
[2022-06-17] MEDS: SODIUM CHLORIDE NASAL 0.65% SPRAY BTL (OCEAN) SCH ×2 (10:25→20:15)
[2022-06-17] MEDS: FLUTICASONE PROP 0.05% NASAL SPRAY 16 GM (FLONASE) NARES SCH (20:15)
[2022-06-18] MEDS: traMADol 50 MG TAB PO PRN ×2 (01:47→10:55)
[2022-06-18 04:00] VITALS: BP 154/79
[2022-06-18] MEDS: GLIMEPIRIDE 2 MG TAB PO SCH ×2 (07:30→17:22)
[2022-06-18] MEDS: metFORMIN (GLUCOPHAGE) 500MG TAB PO SCH ×2 (07:55→17:22)
[2022-06-18] MEDS: TAMSULOSIN 0.4 MG CAP PO SCH (07:57)
[2022-06-18] MEDS: ASPIRIN 81MG CHEW TABLET PO SCH (07:57)
[2022-06-18] MEDS: ATORVASTATIN 20 MG TAB PO SCH (07:57)
[2022-06-18] MEDS: APIXABAN 5 MG TAB (ELIQUIS) PO SCH ×2 (09:00→20:00)
[2022-06-18] MEDS: QUEtiapine FUMARATE 25 MG TAB PO SCH ×2 (09:00→20:00)
[2022-06-18] MEDS: SODIUM CHLORIDE NASAL 0.65% SPRAY BTL (OCEAN) SCH ×2 (09:00→20:00)
[2022-06-18] MEDS: PSEUDOEPHEDRINE 30 MG TAB PO PRN (10:55)
[2022-06-18] MEDS: IBUPROFEN 800 MG TAB PO PRN (13:09)
[2022-06-18] MEDS: carisoprodoL 350 MG TAB PO PRN (13:09)
[2022-06-18] MEDS: FLUTICASONE PROP 0.05% NASAL SPRAY 16 GM (FLONASE) NARES SCH (20:01)
[2022-06-19] MEDS: traMADol 50 MG TAB PO PRN ×2 (02:20→23:17)
[2022-06-19 05:10] VITALS: BP 152/81
[2022-06-19] MEDS: GLIMEPIRIDE 2 MG TAB PO SCH ×2 (07:30→18:58)
[2022-06-19] MEDS: metFORMIN (GLUCOPHAGE) 500MG TAB PO SCH ×2 (08:00→18:58)
[2022-06-19] MEDS: QUEtiapine FUMARATE 25 MG TAB PO SCH ×2 (09:00→20:23)
[2022-06-19] MEDS: APIXABAN 5 MG TAB (ELIQUIS) PO SCH ×2 (09:00→20:22)
[2022-06-19] MEDS: ASPIRIN 81MG CHEW TABLET PO SCH (09:00)
[2022-06-19] MEDS: ATORVASTATIN 20 MG TAB PO SCH (09:00)
[2022-06-19] MEDS: TAMSULOSIN 0.4 MG CAP PO SCH (09:00)
[2022-06-19] MEDS: SODIUM CHLORIDE NASAL 0.65% SPRAY BTL (OCEAN) SCH ×2 (09:00→20:23)
[2022-06-19] MEDS: PSEUDOEPHEDRINE 30 MG TAB PO PRN ×2 (10:39→18:56)
[2022-06-19] MEDS: IBUPROFEN 800 MG TAB PO PRN ×2 (10:39→18:57)
[2022-06-19] MEDS: carisoprodoL 350 MG TAB PO PRN (15:24)
[2022-06-19] MEDS: FLUTICASONE PROP 0.05% NASAL SPRAY 16 GM (FLONASE) NARES SCH (20:23)
[2022-06-19] MEDS: RAMELTEON 8 MG TAB (ROZEREM) PO PRN (23:18)
[2022-06-20] MEDS: GLIMEPIRIDE 2 MG TAB PO SCH ×2 (07:30→17:30)
[2022-06-20] MEDS: metFORMIN (GLUCOPHAGE) 500MG TAB PO SCH ×2 (07:56→17:52)
[2022-06-20] MEDS: SODIUM CHLORIDE NASAL 0.65% SPRAY BTL (OCEAN) SCH ×2 (07:57→20:04)
[2022-06-20] MEDS: ASPIRIN 81MG CHEW TABLET PO SCH (07:57)
[2022-06-20] MEDS: QUEtiapine FUMARATE 25 MG TAB PO SCH ×2 (07:57→20:03)
[2022-06-20] MEDS: TAMSULOSIN 0.4 MG CAP PO SCH (07:57)
[2022-06-20] MEDS: ATORVASTATIN 20 MG TAB PO SCH (07:57)
[2022-06-20] MEDS: APIXABAN 5 MG TAB (ELIQUIS) PO SCH ×2 (07:57→20:03)
[2022-06-20] MEDS: traMADol 50 MG TAB PO PRN (10:55)
[2022-06-20] MEDS: PSEUDOEPHEDRINE 30 MG TAB PO PRN (14:40)
[2022-06-20] MEDS: IBUPROFEN 800 MG TAB PO PRN (18:10)
[2022-06-20] MEDS: FLUTICASONE PROP 0.05% NASAL SPRAY 16 GM (FLONASE) NARES SCH (20:03)
[2022-06-21] MEDS: traMADol 50 MG TAB PO PRN ×3 (01:26→18:00)
[2022-06-21] MEDS: GLIMEPIRIDE 2 MG TAB PO SCH ×3 (07:30→17:59)
[2022-06-21] MEDS: metFORMIN (GLUCOPHAGE) 500MG TAB PO SCH ×3 (08:00→18:00)
[2022-06-21] MEDS: TAMSULOSIN 0.4 MG CAP PO SCH (09:35)
[2022-06-21] MEDS: ASPIRIN 81MG CHEW TABLET PO SCH (09:35)
[2022-06-21] MEDS: APIXABAN 5 MG TAB (ELIQUIS) PO SCH ×2 (09:35→19:58)
[2022-06-21] MEDS: QUEtiapine FUMARATE 25 MG TAB PO SCH ×2 (09:35→19:58)
[2022-06-21] MEDS: ATORVASTATIN 20 MG TAB PO SCH (09:36)
[2022-06-21] MEDS: SODIUM CHLORIDE NASAL 0.65% SPRAY BTL (OCEAN) SCH ×2 (09:38→19:58)
[2022-06-21] MEDS: FLUTICASONE PROP 0.05% NASAL SPRAY 16 GM (FLONASE) NARES SCH (19:57)
[2022-06-21] MEDS: carisoprodoL 350 MG TAB PO PRN (22:06)
[2022-06-21] MEDS: PSEUDOEPHEDRINE 30 MG TAB PO PRN (22:11)
[2022-06-22] MEDS: IBUPROFEN 800 MG TAB PO PRN (00:47)
[2022-06-22 06:00] VITALS: BP 160/70
[2022-06-22] MEDS: GLIMEPIRIDE 2 MG TAB PO SCH ×2 (07:30→16:56)
[2022-06-22] MEDS: metFORMIN (GLUCOPHAGE) 500MG TAB PO SCH ×2 (08:00→16:56)
[2022-06-22] MEDS: ASPIRIN 81MG CHEW TABLET PO SCH (08:17)
[2022-06-22] MEDS: TAMSULOSIN 0.4 MG CAP PO SCH (08:17)
[2022-06-22] MEDS: APIXABAN 5 MG TAB (ELIQUIS) PO SCH ×2 (08:17→20:30)
[2022-06-22] MEDS: SODIUM CHLORIDE NASAL 0.65% SPRAY BTL (OCEAN) SCH ×2 (08:18→20:31)
[2022-06-22] MEDS: ATORVASTATIN 20 MG TAB PO SCH (08:18)
[2022-06-22] MEDS: QUEtiapine FUMARATE 25 MG TAB PO SCH ×2 (08:18→20:30)
[2022-06-22] MEDS: traMADol 50 MG TAB PO PRN (18:26)
[2022-06-22] MEDS: PSEUDOEPHEDRINE 30 MG TAB PO PRN (18:30)
[2022-06-22] MEDS: carisoprodoL 350 MG TAB PO PRN (20:29)
[2022-06-22] MEDS: FLUTICASONE PROP 0.05% NASAL SPRAY 16 GM (FLONASE) NARES SCH (20:31)
[2022-06-23 06:00] VITALS: BP 160/100
[2022-06-23] MEDS: carisoprodoL 350 MG TAB PO PRN (08:33)
[2022-06-23] MEDS: APIXABAN 5 MG TAB (ELIQUIS) PO SCH ×2 (08:34→21:55)
[2022-06-23] MEDS: ASPIRIN 81MG CHEW TABLET PO SCH (08:34)
[2022-06-23] MEDS: GLIMEPIRIDE 2 MG TAB PO SCH ×2 (08:35→18:05)
[2022-06-23] MEDS: metFORMIN (GLUCOPHAGE) 500MG TAB PO SCH ×2 (08:35→18:05)
[2022-06-23] MEDS: TAMSULOSIN 0.4 MG CAP PO SCH (08:41)
[2022-06-23] MEDS: ATORVASTATIN 20 MG TAB PO SCH (08:41)
[2022-06-23] MEDS: QUEtiapine FUMARATE 25 MG TAB PO SCH ×2 (08:41→21:55)
[2022-06-23] MEDS: SODIUM CHLORIDE NASAL 0.65% SPRAY BTL (OCEAN) SCH ×2 (08:41→21:00)
[2022-06-23 09:27] VITALS: BP 144/92
[2022-06-23] MEDS: IBUPROFEN 800 MG TAB PO PRN ×2 (11:20→21:58)
[2022-06-23 12:08] LABS: BASO % 0.5 % (0.0-1.0); EOS # 0.2 10^3/uL (0.0-0.5); EOS % 2.1 % (0.0-3.0); HEMATOCRIT 45.9 % (42.0-52.0); LYMPH # 2.6 10^3/uL (1.5-5.0); LYMPH % 34.6 % (24.0-44.0); MEAN CORPUSCULAR HEMOGLOBIN 27.3 pg (27.0-33.0); MEAN CORPUSCULAR HGB CONC 32.7 g/dl (32.0-36.5); MEAN CORPUSCULAR VOLUME 83.6 fl (80.0-96.0); MONO # 0.7 10^3/uL (0.0-0.8); MONO % 8.7 % (2.0-8.0); NEUTROPHILS % 53.8 % (36.0-66.0); PLATELET COUNT, AUTOMATED 319 10^3/uL (150-450); RED BLOOD COUNT 5.49 10^6/uL (4.30-6.10); WHITE BLOOD COUNT 7.5 10^3/uL (4.0-10.0)
[2022-06-23 12:33] LABS: ERYTHROCYTE SEDIMENTATION RATE 24 mm/hr (0-20)
[2022-06-23] MEDS: AMOXICILLIN 500 MG CAP PO SCH ×2 (13:35→21:55)
[2022-06-23] MEDS: traMADol 50 MG TAB PO PRN (15:08)
[2022-06-23] MEDS: ALPRAZolam 0.5 MG TAB PO PRN (15:44)
[2022-06-23] MEDS: LACTOBACILLUS ACIDOPHILUS CAP (BACID) PO SCH (18:05)
[2022-06-23] MEDS: RAMELTEON 8 MG TAB (ROZEREM) PO PRN (21:55)
[2022-06-23] MEDS: FLUTICASONE PROP 0.05% NASAL SPRAY 16 GM (FLONASE) NARES SCH (21:55)
[2022-06-24] MEDS: ACETAMINOPHEN TAB 650MG DOSE (2X325MG) PO PRN (01:55)
[2022-06-24 06:00] VITALS: BP 150/74
[2022-06-24] MEDS: ASPIRIN 81MG CHEW TABLET PO SCH (07:49)
[2022-06-24] MEDS: TAMSULOSIN 0.4 MG CAP PO SCH (07:49)
[2022-06-24] MEDS: LACTOBACILLUS ACIDOPHILUS CAP (BACID) PO SCH ×3 (07:49→17:19)
[2022-06-24] MEDS: AMOXICILLIN 500 MG CAP PO SCH ×3 (07:49→20:07)
[2022-06-24] MEDS: metFORMIN (GLUCOPHAGE) 500MG TAB PO SCH ×3 (07:50→17:19)
[2022-06-24] MEDS: APIXABAN 5 MG TAB (ELIQUIS) PO SCH ×3 (07:50→20:07)
[2022-06-24] MEDS: GLIMEPIRIDE 2 MG TAB PO SCH ×3 (07:50→17:19)
[2022-06-24] MEDS: ATORVASTATIN 20 MG TAB PO SCH (07:50)
[2022-06-24] MEDS: QUEtiapine FUMARATE 25 MG TAB PO SCH ×3 (07:51→20:07)
[2022-06-24] MEDS: SODIUM CHLORIDE NASAL 0.65% SPRAY BTL (OCEAN) SCH ×3 (07:54→20:08)
[2022-06-24] MEDS: traMADol 50 MG TAB PO PRN (14:12)
[2022-06-24] MEDS: IBUPROFEN 800 MG TAB PO PRN (17:19)
[2022-06-24] MEDS: FLUTICASONE PROP 0.05% NASAL SPRAY 16 GM (FLONASE) NARES SCH (20:07)
[2022-06-25 05:30] VITALS: BP 157/91
[2022-06-25] MEDS: AMOXICILLIN 500 MG CAP PO SCH ×3 (09:00→19:54)
[2022-06-25] MEDS: ASPIRIN 81MG CHEW TABLET PO SCH (09:00)
[2022-06-25] MEDS: APIXABAN 5 MG TAB (ELIQUIS) PO SCH ×3 (09:00→19:54)
[2022-06-25] MEDS: ATORVASTATIN 20 MG TAB PO SCH (09:00)
[2022-06-25] MEDS: QUEtiapine FUMARATE 25 MG TAB PO SCH ×3 (09:00→19:56)
[2022-06-25] MEDS: SODIUM CHLORIDE NASAL 0.65% SPRAY BTL (OCEAN) SCH ×3 (09:00→19:56)
[2022-06-25] MEDS: TAMSULOSIN 0.4 MG CAP PO SCH (09:00)
[2022-06-25] MEDS: GLIMEPIRIDE 2 MG TAB PO SCH ×2 (09:52→17:30)
[2022-06-25] MEDS: metFORMIN (GLUCOPHAGE) 500MG TAB PO SCH ×2 (09:53→18:00)
[2022-06-25] MEDS: LACTOBACILLUS ACIDOPHILUS CAP (BACID) PO SCH ×2 (09:53→18:00)
[2022-06-25] MEDS: traMADol 50 MG TAB PO PRN ×2 (12:56→23:48)
[2022-06-25] MEDS: FLUTICASONE PROP 0.05% NASAL SPRAY 16 GM (FLONASE) NARES SCH ×2 (19:44→19:56)
[2022-06-25] MEDS: IBUPROFEN 800 MG TAB PO PRN (21:59)
[2022-06-26 05:10] VITALS: BP 127/67
[2022-06-26] MEDS: APIXABAN 5 MG TAB (ELIQUIS) PO SCH ×2 (09:00→21:25)
[2022-06-26] MEDS: QUEtiapine FUMARATE 25 MG TAB PO SCH ×2 (09:00→21:25)
[2022-06-26] MEDS: ATORVASTATIN 20 MG TAB PO SCH (09:00)
[2022-06-26] MEDS: SODIUM CHLORIDE NASAL 0.65% SPRAY BTL (OCEAN) SCH ×2 (09:00→21:26)
[2022-06-26] MEDS: ASPIRIN 81MG CHEW TABLET PO SCH (09:00)
[2022-06-26] MEDS: TAMSULOSIN 0.4 MG CAP PO SCH (09:00)
[2022-06-26] MEDS: AMOXICILLIN 500 MG CAP PO SCH ×2 (09:23→21:23)
[2022-06-26] MEDS: LACTOBACILLUS ACIDOPHILUS CAP (BACID) PO SCH ×2 (09:23→17:07)
[2022-06-26] MEDS: metFORMIN (GLUCOPHAGE) 500MG TAB PO SCH ×2 (09:23→17:07)
[2022-06-26] MEDS: GLIMEPIRIDE 2 MG TAB PO SCH ×2 (09:25→17:07)
[2022-06-26] MEDS: IBUPROFEN 800 MG TAB PO PRN (09:34)
[2022-06-26] MEDS: carisoprodoL 350 MG TAB PO PRN ×2 (12:39→14:43)
[2022-06-26] MEDS: ALPRAZolam 0.5 MG TAB PO PRN ×2 (16:05→21:25)
[2022-06-26] MEDS: ACETAMINOPHEN TAB 650MG DOSE (2X325MG) PO PRN (21:24)
[2022-06-26] MEDS: FLUTICASONE PROP 0.05% NASAL SPRAY 16 GM (FLONASE) NARES SCH (21:26)
[2022-06-27 06:00] VITALS: BP 166/91
[2022-06-27] MEDS: LACTOBACILLUS ACIDOPHILUS CAP (BACID) PO SCH ×2 (08:54→17:12)
[2022-06-27] MEDS: GLIMEPIRIDE 2 MG TAB PO SCH ×2 (08:54→17:12)
[2022-06-27] MEDS: AMOXICILLIN 500 MG CAP PO SCH ×2 (08:54→21:08)
[2022-06-27] MEDS: QUEtiapine FUMARATE 25 MG TAB PO SCH ×2 (08:55→21:09)
[2022-06-27] MEDS: ATORVASTATIN 20 MG TAB PO SCH (08:55)
[2022-06-27] MEDS: metFORMIN (GLUCOPHAGE) 500MG TAB PO SCH ×2 (08:55→17:12)
[2022-06-27] MEDS: TAMSULOSIN 0.4 MG CAP PO SCH (08:55)
[2022-06-27] MEDS: IBUPROFEN 800 MG TAB PO PRN (08:55)
[2022-06-27] MEDS: SODIUM CHLORIDE NASAL 0.65% SPRAY BTL (OCEAN) SCH ×2 (08:55→21:09)
[2022-06-27] MEDS: ASPIRIN 81MG CHEW TABLET PO SCH (08:55)
[2022-06-27] MEDS: APIXABAN 5 MG TAB (ELIQUIS) PO SCH ×2 (08:55→21:08)
[2022-06-27] MEDS: carisoprodoL 350 MG TAB PO PRN (16:33)
[2022-06-27 20:30] VITALS: BP 155/80
[2022-06-27] MEDS: ALPRAZolam 0.5 MG TAB PO PRN (21:08)
[2022-06-27] MEDS: FLUTICASONE PROP 0.05% NASAL SPRAY 16 GM (FLONASE) NARES SCH (21:09)
[2022-06-28] MEDS: ALPRAZolam 0.5 MG TAB PO PRN ×2 (02:45→20:24)
[2022-06-28 06:00] VITALS: BP 140/77
[2022-06-28] MEDS: metFORMIN (GLUCOPHAGE) 500MG TAB PO SCH ×2 (08:00→16:30)
[2022-06-28] MEDS: LACTOBACILLUS ACIDOPHILUS CAP (BACID) PO SCH ×2 (08:00→16:30)
[2022-06-28] MEDS: GLIMEPIRIDE 2 MG TAB PO SCH ×2 (08:37→16:31)
[2022-06-28] MEDS: AMOXICILLIN 500 MG CAP PO SCH ×2 (08:37→20:24)
[2022-06-28] MEDS: ASPIRIN 81MG CHEW TABLET PO SCH (08:38)
[2022-06-28] MEDS: TAMSULOSIN 0.4 MG CAP PO SCH (08:38)
[2022-06-28] MEDS: APIXABAN 5 MG TAB (ELIQUIS) PO SCH ×2 (08:38→20:24)
[2022-06-28] MEDS: ATORVASTATIN 20 MG TAB PO SCH (08:38)
[2022-06-28] MEDS: QUEtiapine FUMARATE 25 MG TAB PO SCH ×2 (08:43→20:24)
[2022-06-28] MEDS: SODIUM CHLORIDE NASAL 0.65% SPRAY BTL (OCEAN) SCH ×2 (08:43→20:25)
[2022-06-28] MEDS: IBUPROFEN 800 MG TAB PO PRN (09:43)
[2022-06-28] MEDS: traMADol 50 MG TAB PO PRN (16:25)
[2022-06-28] MEDS: carisoprodoL 350 MG TAB PO PRN (20:24)
[2022-06-28] MEDS: FLUTICASONE PROP 0.05% NASAL SPRAY 16 GM (FLONASE) NARES SCH (20:25)
[2022-06-29] MEDS: traMADol 50 MG TAB PO PRN ×2 (04:31→17:19)
[2022-06-29 05:40] VITALS: BP 159/90
[2022-06-29] MEDS: GLIMEPIRIDE 2 MG TAB PO SCH ×2 (07:30→17:30)
[2022-06-29] MEDS: LACTOBACILLUS ACIDOPHILUS CAP (BACID) PO SCH ×2 (08:00→18:00)
[2022-06-29] MEDS: metFORMIN (GLUCOPHAGE) 500MG TAB PO SCH ×2 (08:00→18:00)
[2022-06-29] MEDS: SODIUM CHLORIDE NASAL 0.65% SPRAY BTL (OCEAN) SCH ×2 (09:00→20:21)
[2022-06-29] MEDS: APIXABAN 5 MG TAB (ELIQUIS) PO SCH ×2 (09:00→20:22)
[2022-06-29] MEDS: TAMSULOSIN 0.4 MG CAP PO SCH (09:00)
[2022-06-29] MEDS: ATORVASTATIN 20 MG TAB PO SCH (09:00)
[2022-06-29] MEDS: ASPIRIN 81MG CHEW TABLET PO SCH (09:00)
[2022-06-29] MEDS: AMOXICILLIN 500 MG CAP PO SCH ×2 (11:38→20:20)
[2022-06-29] MEDS: QUEtiapine FUMARATE 25 MG TAB PO SCH ×2 (11:38→20:20)
[2022-06-29] MEDS: carisoprodoL 350 MG TAB PO PRN (11:38)
[2022-06-29] MEDS: RAMELTEON 8 MG TAB (ROZEREM) PO PRN (20:20)
[2022-06-29] MEDS: FLUTICASONE PROP 0.05% NASAL SPRAY 16 GM (FLONASE) NARES SCH (20:21)
[2022-06-29] MEDS: IBUPROFEN 800 MG TAB PO PRN (20:21)
[2022-06-30] MEDS: carisoprodoL 350 MG TAB PO PRN (00:12)
[2022-06-30 04:50] VITALS: BP 128/76
[2022-06-30] MEDS: GLIMEPIRIDE 2 MG TAB PO SCH ×2 (07:30→17:10)
[2022-06-30] MEDS: metFORMIN (GLUCOPHAGE) 500MG TAB PO SCH ×2 (08:00→17:10)
[2022-06-30] MEDS: LACTOBACILLUS ACIDOPHILUS CAP (BACID) PO SCH ×2 (08:00→17:10)
[2022-06-30] MEDS: ASPIRIN 81MG CHEW TABLET PO SCH (08:43)
[2022-06-30] MEDS: AMOXICILLIN 500 MG CAP PO SCH ×2 (08:43→21:00)
[2022-06-30] MEDS: ATORVASTATIN 20 MG TAB PO SCH (08:44)
[2022-06-30] MEDS: TAMSULOSIN 0.4 MG CAP PO SCH (08:44)
[2022-06-30] MEDS: SODIUM CHLORIDE NASAL 0.65% SPRAY BTL (OCEAN) SCH ×2 (08:44→21:00)
[2022-06-30] MEDS: QUEtiapine FUMARATE 25 MG TAB PO SCH ×3 (08:44→21:00)
[2022-06-30] MEDS: APIXABAN 5 MG TAB (ELIQUIS) PO SCH ×2 (08:44→21:00)
[2022-06-30] MEDS: ACETAMINOPHEN TAB 650MG DOSE (2X325MG) PO PRN ×2 (10:38→14:49)
[2022-06-30] MEDS: traMADol 50 MG TAB PO PRN (10:38)
[2022-06-30] MEDS: SENOKOT S TAB PO PRN (10:41)
[2022-06-30] MEDS: ALPRAZolam 0.5 MG TAB PO PRN (14:49)
[2022-06-30] MEDS: FLUTICASONE PROP 0.05% NASAL SPRAY 16 GM (FLONASE) NARES SCH (21:00)
[2022-07-01] MEDS: carisoprodoL 350 MG TAB PO PRN ×2 (03:25→21:16)
[2022-07-01 05:37] VITALS: BP 149/92
[2022-07-01] MEDS: traMADol 50 MG TAB PO PRN (11:11)
[2022-07-01] MEDS: QUEtiapine FUMARATE 25 MG TAB PO SCH ×2 (11:12→21:16)
[2022-07-01] MEDS: APIXABAN 5 MG TAB (ELIQUIS) PO SCH ×2 (11:12→21:16)
[2022-07-01] MEDS: AMOXICILLIN 500 MG CAP PO SCH ×2 (11:12→21:16)
[2022-07-01] MEDS: GLIMEPIRIDE 2 MG TAB PO SCH ×2 (11:12→16:54)
[2022-07-01] MEDS: metFORMIN (GLUCOPHAGE) 500MG TAB PO SCH ×2 (11:13→16:54)
[2022-07-01] MEDS: TAMSULOSIN 0.4 MG CAP PO SCH (11:13)
[2022-07-01] MEDS: ASPIRIN 81MG CHEW TABLET PO SCH (11:13)
[2022-07-01] MEDS: ATORVASTATIN 20 MG TAB PO SCH (11:13)
[2022-07-01] MEDS: LACTOBACILLUS ACIDOPHILUS CAP (BACID) PO SCH ×2 (11:13→18:00)
[2022-07-01] MEDS: SODIUM CHLORIDE NASAL 0.65% SPRAY BTL (OCEAN) SCH ×2 (11:14→21:00)
[2022-07-01] MEDS: ACETAMINOPHEN TAB 650MG DOSE (2X325MG) PO PRN (16:20)
[2022-07-01] MEDS: FLUTICASONE PROP 0.05% NASAL SPRAY 16 GM (FLONASE) NARES SCH (21:16)
[2022-07-01] MEDS: RAMELTEON 8 MG TAB (ROZEREM) PO PRN (21:16)
[2022-07-02] MEDS: traMADol 50 MG TAB PO PRN (01:23)
[2022-07-02 06:00] VITALS: BP 130/80
[2022-07-02] MEDS: SODIUM CHLORIDE NASAL 0.65% SPRAY BTL (OCEAN) SCH ×2 (09:00→19:58)
[2022-07-02] MEDS: QUEtiapine FUMARATE 25 MG TAB PO SCH ×2 (10:34→19:58)
[2022-07-02] MEDS: ASPIRIN 81MG CHEW TABLET PO SCH (10:35)
[2022-07-02] MEDS: TAMSULOSIN 0.4 MG CAP PO SCH ×2 (10:35→10:45)
[2022-07-02] MEDS: LACTOBACILLUS ACIDOPHILUS CAP (BACID) PO SCH ×2 (10:35→17:13)
[2022-07-02] MEDS: ATORVASTATIN 20 MG TAB PO SCH (10:35)
[2022-07-02] MEDS: metFORMIN (GLUCOPHAGE) 500MG TAB PO SCH ×2 (10:35→17:14)
[2022-07-02] MEDS: APIXABAN 5 MG TAB (ELIQUIS) PO SCH ×2 (10:35→19:58)
[2022-07-02] MEDS: GLIMEPIRIDE 2 MG TAB PO SCH ×2 (10:35→17:14)
[2022-07-02] MEDS: AMOXICILLIN 500 MG CAP PO SCH ×2 (10:35→19:58)
[2022-07-02] MEDS: FIORICET TAB PO ONE ×2 (11:29→11:41)
[2022-07-02] MEDS: RIZATRIPTAN BENZOATE 10 MG TAB PO PRN (15:01)
[2022-07-02] MEDS: IBUPROFEN 800 MG TAB PO PRN (17:13)
[2022-07-02] MEDS: RAMELTEON 8 MG TAB (ROZEREM) PO PRN (19:58)
[2022-07-02] MEDS: FLUTICASONE PROP 0.05% NASAL SPRAY 16 GM (FLONASE) NARES SCH (19:58)
[2022-07-02] MEDS: carisoprodoL 350 MG TAB PO PRN (19:58)
[2022-07-03] MEDS: traMADol 50 MG TAB PO PRN ×2 (05:14→21:08)
[2022-07-03] MEDS: ASPIRIN 81MG CHEW TABLET PO SCH (09:00)
[2022-07-03] MEDS: SODIUM CHLORIDE NASAL 0.65% SPRAY BTL (OCEAN) SCH ×2 (09:00→19:59)
[2022-07-03] MEDS: APIXABAN 5 MG TAB (ELIQUIS) PO SCH ×2 (09:00→19:58)
[2022-07-03] MEDS: QUEtiapine FUMARATE 25 MG TAB PO SCH ×2 (09:00→19:58)
[2022-07-03] MEDS: ATORVASTATIN 20 MG TAB PO SCH (09:00)
[2022-07-03] MEDS: TAMSULOSIN 0.4 MG CAP PO SCH (09:00)
[2022-07-03] MEDS: LACTOBACILLUS ACIDOPHILUS CAP (BACID) PO SCH (09:03)
[2022-07-03] MEDS: GLIMEPIRIDE 2 MG TAB PO SCH ×2 (09:03→17:47)
[2022-07-03] MEDS: metFORMIN (GLUCOPHAGE) 500MG TAB PO SCH ×2 (09:03→17:47)
[2022-07-03] MEDS: IBUPROFEN 800 MG TAB PO PRN ×2 (10:17→15:37)
[2022-07-03] MEDS: RIZATRIPTAN BENZOATE 10 MG TAB PO PRN (17:46)
[2022-07-03] MEDS: RAMELTEON 8 MG TAB (ROZEREM) PO PRN (19:58)
[2022-07-03] MEDS: FLUTICASONE PROP 0.05% NASAL SPRAY 16 GM (FLONASE) NARES SCH (19:58)
[2022-07-03] MEDS: carisoprodoL 350 MG TAB PO PRN (19:59)
[2022-07-04] MEDS: ALPRAZolam 0.5 MG TAB PO PRN (01:57)
[2022-07-04] MEDS: IBUPROFEN 800 MG TAB PO PRN ×2 (01:58→13:32)
[2022-07-04 06:00] VITALS: BP 142/74
[2022-07-04] MEDS: ASPIRIN 81MG CHEW TABLET PO SCH (10:06)
[2022-07-04] MEDS: ATORVASTATIN 20 MG TAB PO SCH (10:06)
[2022-07-04] MEDS: QUEtiapine FUMARATE 25 MG TAB PO SCH ×2 (10:06→20:06)
[2022-07-04] MEDS: APIXABAN 5 MG TAB (ELIQUIS) PO SCH ×2 (10:06→20:06)
[2022-07-04] MEDS: metFORMIN (GLUCOPHAGE) 500MG TAB PO SCH ×2 (10:07→17:09)
[2022-07-04] MEDS: TAMSULOSIN 0.4 MG CAP PO SCH (10:07)
[2022-07-04] MEDS: GLIMEPIRIDE 2 MG TAB PO SCH ×2 (10:07→17:09)
[2022-07-04] MEDS: SODIUM CHLORIDE NASAL 0.65% SPRAY BTL (OCEAN) SCH ×2 (10:07→20:07)
[2022-07-04] MEDS: RIZATRIPTAN BENZOATE 10 MG TAB PO PRN (13:32)
[2022-07-04] MEDS: FLUTICASONE PROP 0.05% NASAL SPRAY 16 GM (FLONASE) NARES SCH (20:06)
[2022-07-05] MEDS: IBUPROFEN 800 MG TAB PO PRN ×3 (00:03→23:50)
[2022-07-05] MEDS: RIZATRIPTAN BENZOATE 10 MG TAB PO PRN ×3 (00:03→23:48)
[2022-07-05 06:00] VITALS: BP 140/87
[2022-07-05] MEDS: GLIMEPIRIDE 2 MG TAB PO SCH ×2 (07:30→17:26)
[2022-07-05] MEDS: metFORMIN (GLUCOPHAGE) 500MG TAB PO SCH ×2 (08:00→17:26)
[2022-07-05] MEDS: APIXABAN 5 MG TAB (ELIQUIS) PO SCH ×2 (08:52→20:17)
[2022-07-05] MEDS: ATORVASTATIN 20 MG TAB PO SCH (08:52)
[2022-07-05] MEDS: TAMSULOSIN 0.4 MG CAP PO SCH (08:52)
[2022-07-05] MEDS: ASPIRIN 81MG CHEW TABLET PO SCH (08:52)
[2022-07-05] MEDS: QUEtiapine FUMARATE 25 MG TAB PO SCH ×2 (08:53→20:17)
[2022-07-05] MEDS: SODIUM CHLORIDE NASAL 0.65% SPRAY BTL (OCEAN) SCH ×2 (08:53→20:17)
[2022-07-05] MEDS: traMADol 50 MG TAB PO PRN (17:25)
[2022-07-05] MEDS: FLUTICASONE PROP 0.05% NASAL SPRAY 16 GM (FLONASE) NARES SCH (20:17)
[2022-07-05] MEDS: carisoprodoL 350 MG TAB PO PRN (20:17)
[2022-07-05] MEDS: ALPRAZolam 0.5 MG TAB PO PRN (20:17)
[2022-07-05] MEDS: RAMELTEON 8 MG TAB (ROZEREM) PO PRN (23:48)
[2022-07-06 06:00] VITALS: BP 142/87
[2022-07-06] MEDS: GLIMEPIRIDE 2 MG TAB PO SCH ×2 (08:21→17:17)
[2022-07-06] MEDS: ASPIRIN 81MG CHEW TABLET PO SCH (08:22)
[2022-07-06] MEDS: metFORMIN (GLUCOPHAGE) 500MG TAB PO SCH ×2 (08:22→17:17)
[2022-07-06] MEDS: QUEtiapine FUMARATE 25 MG TAB PO SCH ×2 (08:22→19:41)
[2022-07-06] MEDS: TAMSULOSIN 0.4 MG CAP PO SCH (08:22)
[2022-07-06] MEDS: ATORVASTATIN 20 MG TAB PO SCH (08:22)
[2022-07-06] MEDS: APIXABAN 5 MG TAB (ELIQUIS) PO SCH ×2 (08:22→19:41)
[2022-07-06] MEDS: SODIUM CHLORIDE NASAL 0.65% SPRAY BTL (OCEAN) SCH ×2 (08:23→19:42)
[2022-07-06] MEDS: IBUPROFEN 800 MG TAB PO PRN (12:08)
[2022-07-06] MEDS: RIZATRIPTAN BENZOATE 10 MG TAB PO PRN (15:42)
[2022-07-06] MEDS: RAMELTEON 8 MG TAB (ROZEREM) PO PRN (19:41)
[2022-07-06] MEDS: ALPRAZolam 0.5 MG TAB PO PRN (19:41)
[2022-07-06] MEDS: carisoprodoL 350 MG TAB PO PRN (19:41)
[2022-07-06] MEDS: FLUTICASONE PROP 0.05% NASAL SPRAY 16 GM (FLONASE) NARES SCH (19:41)
[2022-07-07] MEDS: ATORVASTATIN 20 MG TAB PO SCH (09:00)
[2022-07-07] MEDS: TAMSULOSIN 0.4 MG CAP PO SCH (09:00)
[2022-07-07] MEDS: APIXABAN 5 MG TAB (ELIQUIS) PO SCH ×2 (09:00→21:00)
[2022-07-07] MEDS: ASPIRIN 81MG CHEW TABLET PO SCH (09:00)
[2022-07-07] MEDS: QUEtiapine FUMARATE 25 MG TAB PO SCH ×2 (09:00→21:00)
[2022-07-07] MEDS: SODIUM CHLORIDE NASAL 0.65% SPRAY BTL (OCEAN) SCH ×2 (09:00→21:00)
[2022-07-07] MEDS: GLIMEPIRIDE 2 MG TAB PO SCH ×2 (09:17→16:49)
[2022-07-07] MEDS: metFORMIN (GLUCOPHAGE) 500MG TAB PO SCH ×2 (09:17→16:49)
[2022-07-07] MEDS: RIZATRIPTAN BENZOATE 10 MG TAB PO PRN ×2 (09:41→20:56)
[2022-07-07] MEDS: IBUPROFEN 800 MG TAB PO PRN ×2 (09:41→19:58)
[2022-07-07] MEDS: carisoprodoL 350 MG TAB PO PRN (12:39)
[2022-07-07] MEDS: FLUTICASONE PROP 0.05% NASAL SPRAY 16 GM (FLONASE) NARES SCH (21:00)
[2022-07-08] MEDS: carisoprodoL 350 MG TAB PO PRN ×2 (01:41→23:21)
[2022-07-08] MEDS: RAMELTEON 8 MG TAB (ROZEREM) PO PRN ×2 (01:41→23:25)
[2022-07-08 05:42] VITALS: BP 144/86
[2022-07-08] MEDS: GLIMEPIRIDE 2 MG TAB PO SCH ×2 (07:30→17:48)
[2022-07-08] MEDS: metFORMIN (GLUCOPHAGE) 500MG TAB PO SCH ×2 (08:00→17:48)
[2022-07-08] MEDS: QUEtiapine FUMARATE 25 MG TAB PO SCH ×2 (09:00→21:00)
[2022-07-08] MEDS: ASPIRIN 81MG CHEW TABLET PO SCH (09:00)
[2022-07-08] MEDS: ATORVASTATIN 20 MG TAB PO SCH (09:00)
[2022-07-08] MEDS: APIXABAN 5 MG TAB (ELIQUIS) PO SCH ×2 (09:00→21:00)
[2022-07-08] MEDS: SODIUM CHLORIDE NASAL 0.65% SPRAY BTL (OCEAN) SCH ×2 (09:00→21:00)
[2022-07-08] MEDS: TAMSULOSIN 0.4 MG CAP PO SCH (09:00)
[2022-07-08] MEDS: IBUPROFEN 800 MG TAB PO PRN ×3 (12:29→21:45)
[2022-07-08] MEDS: RIZATRIPTAN BENZOATE 10 MG TAB PO PRN (15:56)
[2022-07-08] MEDS: PSEUDOEPHEDRINE 30 MG TAB PO PRN ×2 (16:01→21:42)
[2022-07-08] MEDS: traMADol 50 MG TAB PO PRN (17:44)
[2022-07-08] MEDS: FLUTICASONE PROP 0.05% NASAL SPRAY 16 GM (FLONASE) NARES SCH (21:00)
[2022-07-09] MEDS: traMADol 50 MG TAB PO PRN (04:22)
[2022-07-09 06:00] VITALS: BP 138/84
[2022-07-09] MEDS: GLIMEPIRIDE 2 MG TAB PO SCH ×2 (08:43→16:36)
[2022-07-09] MEDS: ATORVASTATIN 20 MG TAB PO SCH (08:43)
[2022-07-09] MEDS: APIXABAN 5 MG TAB (ELIQUIS) PO SCH ×2 (08:43→21:00)
[2022-07-09] MEDS: QUEtiapine FUMARATE 25 MG TAB PO SCH ×2 (08:44→21:00)
[2022-07-09] MEDS: SODIUM CHLORIDE NASAL 0.65% SPRAY BTL (OCEAN) SCH ×2 (08:44→21:00)
[2022-07-09] MEDS: TAMSULOSIN 0.4 MG CAP PO SCH (08:44)
[2022-07-09] MEDS: ASPIRIN 81MG CHEW TABLET PO SCH (08:44)
[2022-07-09] MEDS: metFORMIN (GLUCOPHAGE) 500MG TAB PO SCH ×2 (08:44→16:36)
[2022-07-09] MEDS: IBUPROFEN 800 MG TAB PO PRN ×2 (12:28→20:30)
[2022-07-09] MEDS: carisoprodoL 350 MG TAB PO PRN (13:42)
[2022-07-09] MEDS: RIZATRIPTAN BENZOATE 10 MG TAB PO PRN (15:59)
[2022-07-09] MEDS: RAMELTEON 8 MG TAB (ROZEREM) PO PRN (20:29)
[2022-07-09] MEDS: FLUTICASONE PROP 0.05% NASAL SPRAY 16 GM (FLONASE) NARES SCH (21:00)
[2022-07-10] MEDS: carisoprodoL 350 MG TAB PO PRN (02:14)
[2022-07-10] MEDS: ASPIRIN 81MG CHEW TABLET PO SCH (09:00)
[2022-07-10] MEDS: TAMSULOSIN 0.4 MG CAP PO SCH (09:00)
[2022-07-10] MEDS: SODIUM CHLORIDE NASAL 0.65% SPRAY BTL (OCEAN) SCH ×2 (09:00→20:55)
[2022-07-10] MEDS: QUEtiapine FUMARATE 25 MG TAB PO SCH ×2 (09:25→20:51)
[2022-07-10] MEDS: metFORMIN (GLUCOPHAGE) 500MG TAB PO SCH ×2 (09:25→19:01)
[2022-07-10] MEDS: GLIMEPIRIDE 2 MG TAB PO SCH ×2 (09:25→19:01)
[2022-07-10] MEDS: APIXABAN 5 MG TAB (ELIQUIS) PO SCH ×2 (09:25→20:55)
[2022-07-10] MEDS: ATORVASTATIN 20 MG TAB PO SCH (09:26)
[2022-07-10] MEDS: IBUPROFEN 800 MG TAB PO PRN (15:40)
[2022-07-10] MEDS: RIZATRIPTAN BENZOATE 10 MG TAB PO PRN (15:40)
[2022-07-10] MEDS: RAMELTEON 8 MG TAB (ROZEREM) PO PRN (20:51)
[2022-07-10] MEDS: guaiFENesin 200 MG TAB PO PRN (20:51)
[2022-07-10] MEDS: traMADol 50 MG TAB PO PRN (20:52)
[2022-07-10] MEDS: FLUTICASONE PROP 0.05% NASAL SPRAY 16 GM (FLONASE) NARES SCH (20:54)
[2022-07-11] MEDS: carisoprodoL 350 MG TAB PO PRN ×2 (04:17→17:20)
[2022-07-11 04:18] VITALS: BP 140/83
[2022-07-11] MEDS: GLIMEPIRIDE 2 MG TAB PO SCH ×3 (07:30→17:30)
[2022-07-11] MEDS: metFORMIN (GLUCOPHAGE) 500MG TAB PO SCH ×3 (08:00→18:00)
[2022-07-11] MEDS: TAMSULOSIN 0.4 MG CAP PO SCH ×2 (08:38→15:03)
[2022-07-11] MEDS: ASPIRIN 81MG CHEW TABLET PO SCH ×2 (08:38→15:04)
[2022-07-11] MEDS: APIXABAN 5 MG TAB (ELIQUIS) PO SCH ×3 (08:38→20:05)
[2022-07-11] MEDS: ATORVASTATIN 20 MG TAB PO SCH ×2 (08:38→15:03)
[2022-07-11] MEDS: QUEtiapine FUMARATE 25 MG TAB PO SCH ×3 (08:38→20:06)
[2022-07-11] MEDS: SODIUM CHLORIDE NASAL 0.65% SPRAY BTL (OCEAN) SCH ×2 (08:39→20:06)
[2022-07-11] MEDS: IBUPROFEN 800 MG TAB PO PRN ×2 (10:47→23:45)
[2022-07-11] MEDS: traMADol 50 MG TAB PO PRN (10:53)
[2022-07-11] MEDS: MIRALAX *UNIT DOSE* 17GM PACKET PO PRN (12:46)
[2022-07-11] MEDS: SENOKOT S TAB PO PRN (12:46)
[2022-07-11] MEDS: ACETAMINOPHEN TAB 650MG DOSE (2X325MG) PO PRN (15:01)
[2022-07-11] MEDS: ALPRAZolam 0.5 MG TAB PO PRN (18:06)
[2022-07-11] MEDS: FLUTICASONE PROP 0.05% NASAL SPRAY 16 GM (FLONASE) NARES SCH (20:06)
[2022-07-12] MEDS: GLIMEPIRIDE 2 MG TAB PO SCH ×2 (07:30→17:30)
[2022-07-12] MEDS: metFORMIN (GLUCOPHAGE) 500MG TAB PO SCH ×2 (08:00→17:45)
[2022-07-12] MEDS: QUEtiapine FUMARATE 25 MG TAB PO SCH ×2 (09:00→19:26)
[2022-07-12] MEDS: SODIUM CHLORIDE NASAL 0.65% SPRAY BTL (OCEAN) SCH ×2 (09:00→19:27)
[2022-07-12] MEDS: APIXABAN 5 MG TAB (ELIQUIS) PO SCH ×2 (09:00→19:26)
[2022-07-12] MEDS: RIZATRIPTAN BENZOATE 10 MG TAB PO PRN ×2 (09:30→17:44)
[2022-07-12] MEDS: guaiFENesin 200 MG TAB PO PRN ×2 (09:30→16:17)
[2022-07-12] MEDS: traMADol 50 MG TAB PO PRN ×2 (09:31→16:17)
[2022-07-12] MEDS: IBUPROFEN 800 MG TAB PO PRN (17:44)
[2022-07-12] MEDS: PSEUDOEPHEDRINE 30 MG TAB PO PRN (17:44)
[2022-07-12] MEDS: carisoprodoL 350 MG TAB PO PRN (19:26)
[2022-07-12] MEDS: FLUTICASONE PROP 0.05% NASAL SPRAY 16 GM (FLONASE) NARES SCH (19:26)
[2022-07-13] MEDS: traMADol 50 MG TAB PO PRN ×2 (01:45→09:26)
[2022-07-13 06:27] VITALS: BP 149/84
[2022-07-13] MEDS: ASPIRIN 81MG CHEW TABLET PO SCH (08:10)
[2022-07-13] MEDS: TAMSULOSIN 0.4 MG CAP PO SCH ×2 (08:11→09:00)
[2022-07-13] MEDS: ATORVASTATIN 20 MG TAB PO SCH (08:11)
[2022-07-13] MEDS: GLIMEPIRIDE 2 MG TAB PO SCH ×2 (08:11→18:18)
[2022-07-13] MEDS: QUEtiapine FUMARATE 25 MG TAB PO SCH ×2 (08:11→22:30)
[2022-07-13] MEDS: APIXABAN 5 MG TAB (ELIQUIS) PO SCH ×2 (08:13→22:22)
[2022-07-13] MEDS: metFORMIN (GLUCOPHAGE) 500MG TAB PO SCH ×2 (08:13→18:19)
[2022-07-13] MEDS: ALPRAZolam 0.5 MG TAB PO PRN ×2 (08:17→09:30)
[2022-07-13] MEDS: IBUPROFEN 800 MG TAB PO PRN (09:20)
[2022-07-13] MEDS: SODIUM CHLORIDE NASAL 0.65% SPRAY BTL (OCEAN) SCH ×2 (10:28→22:22)
[2022-07-13] MEDS: carisoprodoL 350 MG TAB PO PRN (18:18)
[2022-07-13] MEDS: FLUTICASONE PROP 0.05% NASAL SPRAY 16 GM (FLONASE) NARES SCH (22:23)
[2022-07-14 06:00] VITALS: BP 150/86
[2022-07-14] MEDS: APIXABAN 5 MG TAB (ELIQUIS) PO SCH ×2 (09:00→20:18)
[2022-07-14] MEDS: ASPIRIN 81MG CHEW TABLET PO SCH (09:00)
[2022-07-14] MEDS: QUEtiapine FUMARATE 25 MG TAB PO SCH ×2 (09:00→20:18)
[2022-07-14] MEDS: TAMSULOSIN 0.4 MG CAP PO SCH (09:00)
[2022-07-14] MEDS: ATORVASTATIN 20 MG TAB PO SCH (09:00)
[2022-07-14] MEDS: SODIUM CHLORIDE NASAL 0.65% SPRAY BTL (OCEAN) SCH ×2 (09:00→20:41)
[2022-07-14] MEDS: metFORMIN (GLUCOPHAGE) 500MG TAB PO SCH ×3 (09:13→17:24)
[2022-07-14] MEDS: GLIMEPIRIDE 2 MG TAB PO SCH ×3 (09:14→17:23)
[2022-07-14] MEDS: traMADol 50 MG TAB PO PRN (13:44)
[2022-07-14] MEDS: ALPRAZolam 0.5 MG TAB PO PRN (17:24)
[2022-07-14] MEDS: FLUTICASONE PROP 0.05% NASAL SPRAY 16 GM (FLONASE) NARES SCH (20:18)
[2022-07-14] MEDS: RAMELTEON 8 MG TAB (ROZEREM) PO PRN (20:18)
[2022-07-15] MEDS: carisoprodoL 350 MG TAB PO PRN ×2 (01:35→22:01)
[2022-07-15 06:00] VITALS: BP 162/99
[2022-07-15] MEDS: SODIUM CHLORIDE NASAL 0.65% SPRAY BTL (OCEAN) SCH ×2 (09:00→20:20)
[2022-07-15] MEDS: IBUPROFEN 800 MG TAB PO PRN (09:53)
[2022-07-15] MEDS: QUEtiapine FUMARATE 25 MG TAB PO SCH ×2 (09:53→20:17)
[2022-07-15] MEDS: ASPIRIN 81MG CHEW TABLET PO SCH (09:53)
[2022-07-15] MEDS: GLIMEPIRIDE 2 MG TAB PO SCH ×2 (09:54→17:30)
[2022-07-15] MEDS: APIXABAN 5 MG TAB (ELIQUIS) PO SCH ×2 (09:54→20:17)
[2022-07-15] MEDS: TAMSULOSIN 0.4 MG CAP PO SCH (09:54)
[2022-07-15] MEDS: ATORVASTATIN 20 MG TAB PO SCH (09:55)
[2022-07-15] MEDS: metFORMIN (GLUCOPHAGE) 500MG TAB PO SCH ×2 (09:55→18:00)
[2022-07-15] MEDS: ALPRAZolam 0.5 MG TAB PO PRN (12:20)
[2022-07-15] MEDS: FLUTICASONE PROP 0.05% NASAL SPRAY 16 GM (FLONASE) NARES SCH (20:17)
[2022-07-15] MEDS: RAMELTEON 8 MG TAB (ROZEREM) PO PRN (20:17)
[2022-07-16 06:00] VITALS: BP 147/78
[2022-07-16] MEDS: GLIMEPIRIDE 2 MG TAB PO SCH ×2 (07:30→17:30)
[2022-07-16] MEDS: metFORMIN (GLUCOPHAGE) 500MG TAB PO SCH ×2 (08:00→18:00)
[2022-07-16] MEDS: ATORVASTATIN 20 MG TAB PO SCH (09:00)
[2022-07-16] MEDS: SODIUM CHLORIDE NASAL 0.65% SPRAY BTL (OCEAN) SCH ×2 (09:00→21:00)
[2022-07-16] MEDS: TAMSULOSIN 0.4 MG CAP PO SCH (09:00)
[2022-07-16] MEDS: QUEtiapine FUMARATE 25 MG TAB PO SCH ×2 (09:00→23:42)
[2022-07-16] MEDS: ASPIRIN 81MG CHEW TABLET PO SCH (09:00)
[2022-07-16] MEDS: APIXABAN 5 MG TAB (ELIQUIS) PO SCH ×2 (09:00→23:42)
[2022-07-16] MEDS: traMADol 50 MG TAB PO PRN ×2 (11:38→18:00)
[2022-07-16] MEDS: guaiFENesin 200 MG TAB PO PRN (23:42)
[2022-07-16] MEDS: carisoprodoL 350 MG TAB PO PRN (23:42)
[2022-07-16] MEDS: RAMELTEON 8 MG TAB (ROZEREM) PO PRN (23:42)
[2022-07-16] MEDS: FLUTICASONE PROP 0.05% NASAL SPRAY 16 GM (FLONASE) NARES SCH (23:42)
[2022-07-17 06:00] VITALS: BP 158/95
[2022-07-17] MEDS: metFORMIN (GLUCOPHAGE) 500MG TAB PO SCH ×2 (10:42→17:32)
[2022-07-17] MEDS: ASPIRIN 81MG CHEW TABLET PO SCH (10:42)
[2022-07-17] MEDS: GLIMEPIRIDE 2 MG TAB PO SCH ×2 (10:42→17:30)
[2022-07-17] MEDS: ATORVASTATIN 20 MG TAB PO SCH (10:42)
[2022-07-17] MEDS: TAMSULOSIN 0.4 MG CAP PO SCH (10:42)
[2022-07-17] MEDS: APIXABAN 5 MG TAB (ELIQUIS) PO SCH ×2 (10:42→22:59)
[2022-07-17] MEDS: SODIUM CHLORIDE NASAL 0.65% SPRAY BTL (OCEAN) SCH ×2 (10:43→23:00)
[2022-07-17] MEDS: QUEtiapine FUMARATE 25 MG TAB PO SCH ×2 (10:43→22:59)
[2022-07-17] MEDS: traMADol 50 MG TAB PO PRN ×2 (12:33→23:00)
[2022-07-17] MEDS: FLUTICASONE PROP 0.05% NASAL SPRAY 16 GM (FLONASE) NARES SCH (22:59)
[2022-07-17] MEDS: RAMELTEON 8 MG TAB (ROZEREM) PO PRN (23:00)
[2022-07-17] MEDS: SENOKOT S TAB PO PRN (23:00)
[2022-07-17] MEDS: RIZATRIPTAN BENZOATE 10 MG TAB PO PRN (23:44)
[2022-07-18] MEDS: GLIMEPIRIDE 2 MG TAB PO SCH ×2 (07:30→17:17)
[2022-07-18] MEDS: metFORMIN (GLUCOPHAGE) 500MG TAB PO SCH ×2 (08:00→17:16)
[2022-07-18] MEDS: RIZATRIPTAN BENZOATE 10 MG TAB PO PRN ×3 (08:04→20:15)
[2022-07-18] MEDS: IBUPROFEN 800 MG TAB PO PRN ×2 (08:04→20:15)
[2022-07-18] MEDS: ATORVASTATIN 20 MG TAB PO SCH (09:00)
[2022-07-18] MEDS: ASPIRIN 81MG CHEW TABLET PO SCH (09:00)
[2022-07-18] MEDS: SODIUM CHLORIDE NASAL 0.65% SPRAY BTL (OCEAN) SCH ×2 (09:00→20:16)
[2022-07-18] MEDS: QUEtiapine FUMARATE 25 MG TAB PO SCH ×2 (09:00→20:15)
[2022-07-18] MEDS: TAMSULOSIN 0.4 MG CAP PO SCH (09:00)
[2022-07-18] MEDS: APIXABAN 5 MG TAB (ELIQUIS) PO SCH ×2 (09:00→20:15)
[2022-07-18] MEDS: FLUTICASONE PROP 0.05% NASAL SPRAY 16 GM (FLONASE) NARES SCH (20:16)
[2022-07-19 06:00] VITALS: BP 139/98
[2022-07-19] MEDS: IBUPROFEN 800 MG TAB PO PRN (06:17)
[2022-07-19] MEDS: carisoprodoL 350 MG TAB PO PRN ×2 (06:23→14:51)
[2022-07-19] MEDS: GLIMEPIRIDE 2 MG TAB PO SCH ×2 (07:30→18:05)
[2022-07-19] MEDS: metFORMIN (GLUCOPHAGE) 500MG TAB PO SCH ×2 (08:00→18:05)
[2022-07-19] MEDS: FLUTICASONE PROP 0.05% NASAL SPRAY 16 GM (FLONASE) NARES SCH ×2 (09:00→20:07)
[2022-07-19] MEDS: QUEtiapine FUMARATE 25 MG TAB PO SCH ×2 (09:00→20:05)
[2022-07-19] MEDS: TAMSULOSIN 0.4 MG CAP PO SCH (09:00)
[2022-07-19] MEDS: ATORVASTATIN 20 MG TAB PO SCH (09:00)
[2022-07-19] MEDS: APIXABAN 5 MG TAB (ELIQUIS) PO SCH ×2 (09:00→20:05)
[2022-07-19] MEDS: SODIUM CHLORIDE NASAL 0.65% SPRAY BTL (OCEAN) SCH ×2 (09:00→20:07)
[2022-07-19] MEDS: ASPIRIN 81MG CHEW TABLET PO SCH (09:00)
[2022-07-19] MEDS: traMADol 50 MG TAB PO PRN (11:31)
[2022-07-19] MEDS: RIZATRIPTAN BENZOATE 10 MG TAB PO PRN (11:31)
[2022-07-19] MEDS: guaiFENesin 200 MG TAB PO PRN (12:46)
[2022-07-19] MEDS: PSEUDOEPHEDRINE 30 MG TAB PO PRN (12:46)
[2022-07-19] MEDS: ALPRAZolam 0.5 MG TAB PO PRN ×2 (14:51→20:05)
[2022-07-19] MEDS: ACETAMINOPHEN TAB 650MG DOSE (2X325MG) PO SCH ×2 (17:00→20:07)
[2022-07-19 17:10] LABS: HEMATOCRIT 46.1 % (42.0-52.0); HEMOGLOBIN 15.5 g/dl (13.5-17.5); MEAN CORPUSCULAR HEMOGLOBIN 27.6 pg (27.0-33.0); MEAN CORPUSCULAR HGB CONC 33.6 g/dl (32.0-36.5); MEAN CORPUSCULAR VOLUME 82.2 fl (80.0-96.0); PLATELET COUNT, AUTOMATED 289 10^3/uL (150-450); RED BLOOD COUNT 5.61 10^6/uL (4.30-6.10); WHITE BLOOD COUNT 10.1 10^3/uL (4.0-10.0)
[2022-07-19 17:20] LABS: HEMOGLOBIN A1c 7.3 % (4.0-6.0)
[2022-07-19 18:01] LABS: ALBUMIN 3.5 G/DL (3.2-5.2); ALKALINE PHOSPHATASE 157 U/L (46-116); ALT/SGPT 25 U/L (7.0-40); AST/SGOT 24 U/L (<34); BILIRUBIN,TOTAL 0.3 MG/DL (0.3-1.2); BLOOD UREA NITROGEN 24 MG/DL (9-23); CALCIUM LEVEL 9.3 MG/DL (8.3-10.6); CARBON DIOXIDE LEVEL 23 MMOL/L (20-31); CHLORIDE LEVEL 100 MMOL/L (98-107); CHOLESTEROL LEVEL 196 MG/DL (<200); CREATININE FOR GFR 0.52 MG/DL (0.70-1.30); FREE T4 1.18 NG/DL (0.89-1.76); GLOMERULAR FILTRATION RATE > 60.0 (>42); GLUCOSE, FASTING 206 MG/DL (74-106); HDL CHOLESTEROL 55.9 MG/DL (>40); LDL CHOLESTEROL 95.3 MG/DL (<100); NON-HDL-C 140 MG/DL; POTASSIUM SERUM 3.9 MMOL/L (3.5-5.1); SODIUM LEVEL 134 MMOL/L (136-145); THYROID STIMULATING HORMONE 3.055 uIU/ML (0.55-4.78); TOTAL 25(OH) VITAMIN D 21.3 NG/ML (20.0-100.0); TOTAL PROTEIN 6.8 G/DL (5.7-8.2); TRIGLYCERIDES LEVEL 224 MG/DL (<150)
[2022-07-19] MEDS: NAPROXEN 250 MG TAB PO PRN (18:04)
[2022-07-20] MEDS: ACETAMINOPHEN TAB 650MG DOSE (2X325MG) PO SCH ×6 (01:00→20:15)
[2022-07-20] MEDS: SODIUM CHLORIDE 5% OD SCH ×7 (01:29→23:40)
[2022-07-20 06:00] VITALS: BP 142/84
[2022-07-20] MEDS: TAMSULOSIN 0.4 MG CAP PO SCH (08:43)
[2022-07-20] MEDS: GLIMEPIRIDE 2 MG TAB PO SCH ×2 (08:44→17:02)
[2022-07-20] MEDS: QUEtiapine FUMARATE 25 MG TAB PO SCH ×2 (08:44→20:14)
[2022-07-20] MEDS: APIXABAN 5 MG TAB (ELIQUIS) PO SCH ×2 (08:44→20:14)
[2022-07-20] MEDS: GABAPENTIN 300 MG CAP PO SCH (08:45)
[2022-07-20] MEDS: metFORMIN (GLUCOPHAGE) 500MG TAB PO SCH ×2 (08:46→17:01)
[2022-07-20] MEDS: ATORVASTATIN 20 MG TAB PO SCH (08:46)
[2022-07-20] MEDS: carisoprodoL 350 MG TAB PO PRN ×2 (08:46→17:02)
[2022-07-20] MEDS: FLUTICASONE PROP 0.05% NASAL SPRAY 16 GM (FLONASE) NARES SCH ×2 (08:52→20:15)
[2022-07-20] MEDS: SODIUM CHLORIDE NASAL 0.65% SPRAY BTL (OCEAN) SCH ×2 (08:53→20:25)
[2022-07-20] MEDS: NAPROXEN 250 MG TAB PO PRN (12:28)
[2022-07-20] MEDS: RAMELTEON 8 MG TAB (ROZEREM) PO PRN (20:14)
[2022-07-20] MEDS: guaiFENesin 200 MG TAB PO PRN (20:15)
[2022-07-21] MEDS: ACETAMINOPHEN TAB 650MG DOSE (2X325MG) PO SCH ×6 (00:38→21:50)
[2022-07-21] MEDS: SODIUM CHLORIDE 5% OD SCH ×5 (04:26→21:50)
[2022-07-21] MEDS: carisoprodoL 350 MG TAB PO PRN ×2 (05:07→16:41)
[2022-07-21 06:00] VITALS: BP 160/84
[2022-07-21] MEDS: GLIMEPIRIDE 2 MG TAB PO SCH ×2 (07:30→16:41)
[2022-07-21] MEDS: metFORMIN (GLUCOPHAGE) 500MG TAB PO SCH ×2 (08:00→17:50)
[2022-07-21] MEDS: ATORVASTATIN 20 MG TAB PO SCH (09:00)
[2022-07-21] MEDS: SODIUM CHLORIDE NASAL 0.65% SPRAY BTL (OCEAN) SCH ×2 (09:00→21:00)
[2022-07-21] MEDS: TAMSULOSIN 0.4 MG CAP PO SCH (09:00)
[2022-07-21] MEDS: APIXABAN 5 MG TAB (ELIQUIS) PO SCH ×2 (09:00→21:49)
[2022-07-21] MEDS: FLUTICASONE PROP 0.05% NASAL SPRAY 16 GM (FLONASE) NARES SCH ×2 (09:00→21:50)
[2022-07-21] MEDS: QUEtiapine FUMARATE 25 MG TAB PO SCH ×2 (09:46→21:49)
[2022-07-21] MEDS: GABAPENTIN 300 MG CAP PO SCH (09:46)
[2022-07-21] MEDS: NAPROXEN 250 MG TAB PO PRN (12:06)
[2022-07-21] MEDS: ALPRAZolam 0.5 MG TAB PO PRN (16:41)
[2022-07-21] MEDS: RAMELTEON 8 MG TAB (ROZEREM) PO PRN (21:49)
[2022-07-22] MEDS: ACETAMINOPHEN TAB 650MG DOSE (2X325MG) PO SCH ×6 (01:00→20:01)
[2022-07-22] MEDS: SODIUM CHLORIDE 5% OD SCH ×6 (01:00→20:02)
[2022-07-22] MEDS: carisoprodoL 350 MG TAB PO PRN ×2 (05:58→20:01)
[2022-07-22] MEDS: GLIMEPIRIDE 2 MG TAB PO SCH ×2 (07:30→16:32)
[2022-07-22] MEDS: FLUTICASONE PROP 0.05% NASAL SPRAY 16 GM (FLONASE) NARES SCH ×2 (07:51→20:02)
[2022-07-22] MEDS: SODIUM CHLORIDE NASAL 0.65% SPRAY BTL (OCEAN) SCH ×2 (07:52→21:00)
[2022-07-22] MEDS: ATORVASTATIN 20 MG TAB PO SCH (07:55)
[2022-07-22] MEDS: metFORMIN (GLUCOPHAGE) 500MG TAB PO SCH ×2 (07:55→16:33)
[2022-07-22] MEDS: TAMSULOSIN 0.4 MG CAP PO SCH (07:55)
[2022-07-22] MEDS: APIXABAN 5 MG TAB (ELIQUIS) PO SCH ×2 (07:55→20:01)
[2022-07-22] MEDS: GABAPENTIN 300 MG CAP PO SCH (07:56)
[2022-07-22] MEDS: QUEtiapine FUMARATE 25 MG TAB PO SCH ×2 (07:56→20:01)
[2022-07-22] MEDS: NAPROXEN 250 MG TAB PO PRN (16:32)
[2022-07-22] MEDS: RAMELTEON 8 MG TAB (ROZEREM) PO PRN (20:01)
[2022-07-23] MEDS: ACETAMINOPHEN TAB 650MG DOSE (2X325MG) PO SCH ×4 (01:00→12:59)
[2022-07-23] MEDS: SODIUM CHLORIDE 5% OD SCH ×6 (01:00→20:18)
[2022-07-23 05:40] VITALS: BP 142/84
[2022-07-23 05:47] VITALS: BP 137/57
[2022-07-23] MEDS: NAPROXEN 250 MG TAB PO PRN ×3 (06:18→20:20)
[2022-07-23] MEDS: GLIMEPIRIDE 2 MG TAB PO SCH ×2 (07:30→19:09)
[2022-07-23] MEDS: TAMSULOSIN 0.4 MG CAP PO SCH (09:00)
[2022-07-23] MEDS: FLUTICASONE PROP 0.05% NASAL SPRAY 16 GM (FLONASE) NARES SCH ×2 (09:00→20:18)
[2022-07-23] MEDS: SODIUM CHLORIDE NASAL 0.65% SPRAY BTL (OCEAN) SCH ×2 (09:00→20:19)
[2022-07-23] MEDS: ATORVASTATIN 20 MG TAB PO SCH (09:00)
[2022-07-23] MEDS: GABAPENTIN 300 MG CAP PO SCH (09:00)
[2022-07-23] MEDS: APIXABAN 5 MG TAB (ELIQUIS) PO SCH ×2 (09:00→20:18)
[2022-07-23] MEDS: QUEtiapine FUMARATE 25 MG TAB PO SCH ×2 (09:00→20:18)
[2022-07-23] MEDS: metFORMIN (GLUCOPHAGE) 500MG TAB PO SCH ×2 (09:37→19:09)
[2022-07-23] MEDS: carisoprodoL 350 MG TAB PO PRN (13:26)
[2022-07-23] MEDS: SENOKOT S TAB PO PRN (20:19)
[2022-07-23] MEDS: ALPRAZolam 0.5 MG TAB PO PRN (20:19)
[2022-07-23] MEDS: RAMELTEON 8 MG TAB (ROZEREM) PO PRN (20:19)
[2022-07-24] MEDS: SODIUM CHLORIDE 5% OD SCH ×7 (02:00→20:35)
[2022-07-24 05:20] VITALS: BP 146/86
[2022-07-24] MEDS: GLIMEPIRIDE 2 MG TAB PO SCH ×2 (07:30→17:30)
[2022-07-24] MEDS: metFORMIN (GLUCOPHAGE) 500MG TAB PO SCH ×2 (08:20→17:51)
[2022-07-24] MEDS: QUEtiapine FUMARATE 25 MG TAB PO SCH ×2 (08:20→20:33)
[2022-07-24] MEDS: NAPROXEN 250 MG TAB PO PRN ×2 (08:21→20:35)
[2022-07-24] MEDS: ATORVASTATIN 20 MG TAB PO SCH (08:21)
[2022-07-24] MEDS: GABAPENTIN 300 MG CAP PO SCH (08:21)
[2022-07-24] MEDS: FLUTICASONE PROP 0.05% NASAL SPRAY 16 GM (FLONASE) NARES SCH ×2 (08:22→20:33)
[2022-07-24] MEDS: SODIUM CHLORIDE NASAL 0.65% SPRAY BTL (OCEAN) SCH ×2 (08:25→20:33)
[2022-07-24] MEDS: TAMSULOSIN 0.4 MG CAP PO SCH (08:25)
[2022-07-24] MEDS: APIXABAN 5 MG TAB (ELIQUIS) PO SCH ×2 (08:26→20:32)
[2022-07-24] MEDS: carisoprodoL 350 MG TAB PO PRN (12:59)
[2022-07-24] MEDS: RAMELTEON 8 MG TAB (ROZEREM) PO PRN (20:34)
[2022-07-24] MEDS: SENOKOT S TAB PO PRN (20:34)
[2022-07-24] MEDS: ALPRAZolam 0.5 MG TAB PO PRN (20:34)
[2022-07-25] MEDS: carisoprodoL 350 MG TAB PO PRN ×2 (01:32→11:27)
[2022-07-25] MEDS: SODIUM CHLORIDE 5% OD SCH ×6 (01:32→20:46)
[2022-07-25 06:31] VITALS: BP 147/86
[2022-07-25] MEDS: GLIMEPIRIDE 2 MG TAB PO SCH ×2 (07:30→17:25)
[2022-07-25] MEDS: metFORMIN (GLUCOPHAGE) 500MG TAB PO SCH ×2 (08:00→17:25)
[2022-07-25] MEDS: TAMSULOSIN 0.4 MG CAP PO SCH (08:32)
[2022-07-25] MEDS: SODIUM CHLORIDE NASAL 0.65% SPRAY BTL (OCEAN) SCH ×2 (08:32→20:46)
[2022-07-25] MEDS: ATORVASTATIN 20 MG TAB PO SCH (08:32)
[2022-07-25] MEDS: APIXABAN 5 MG TAB (ELIQUIS) PO SCH ×2 (08:32→20:46)
[2022-07-25] MEDS: FLUTICASONE PROP 0.05% NASAL SPRAY 16 GM (FLONASE) NARES SCH ×2 (08:33→20:46)
[2022-07-25] MEDS: QUEtiapine FUMARATE 25 MG TAB PO SCH ×2 (08:33→20:46)
[2022-07-25] MEDS: GABAPENTIN 300 MG CAP PO SCH (08:33)
[2022-07-25] MEDS: NAPROXEN 250 MG TAB PO PRN (11:28)
[2022-07-26] MEDS: SODIUM CHLORIDE 5% OD SCH ×7 (00:14→20:38)
[2022-07-26] MEDS: ACETAMINOPHEN TAB 650MG DOSE (2X325MG) PO PRN ×2 (01:36→20:31)
[2022-07-26] MEDS: NAPROXEN 250 MG TAB PO PRN ×2 (01:36→15:56)
[2022-07-26] MEDS: RAMELTEON 8 MG TAB (ROZEREM) PO PRN ×2 (01:37→20:30)
[2022-07-26 05:09] VITALS: BP 148/90
[2022-07-26] MEDS: metFORMIN (GLUCOPHAGE) 500MG TAB PO SCH ×2 (07:59→17:26)
[2022-07-26] MEDS: APIXABAN 5 MG TAB (ELIQUIS) PO SCH ×2 (07:59→20:29)
[2022-07-26] MEDS: GLIMEPIRIDE 2 MG TAB PO SCH ×2 (07:59→17:27)
[2022-07-26] MEDS: GABAPENTIN 300 MG CAP PO SCH (08:00)
[2022-07-26] MEDS: FLUTICASONE PROP 0.05% NASAL SPRAY 16 GM (FLONASE) NARES SCH ×2 (08:00→20:30)
[2022-07-26] MEDS: TAMSULOSIN 0.4 MG CAP PO SCH (08:00)
[2022-07-26] MEDS: QUEtiapine FUMARATE 25 MG TAB PO SCH ×2 (08:00→20:29)
[2022-07-26] MEDS: ATORVASTATIN 20 MG TAB PO SCH (08:00)
[2022-07-26] MEDS: SODIUM CHLORIDE NASAL 0.65% SPRAY BTL (OCEAN) SCH ×2 (08:01→20:32)
[2022-07-26] MEDS: PSEUDOEPHEDRINE 30 MG TAB PO PRN (20:30)
[2022-07-26] MEDS: ALPRAZolam 0.5 MG TAB PO PRN (20:30)
[2022-07-26] MEDS: guaiFENesin 200 MG TAB PO PRN (20:30)
[2022-07-26] MEDS: SENOKOT S TAB PO PRN (20:30)
[2022-07-27] MEDS: SODIUM CHLORIDE 5% OD SCH ×7 (01:00→20:32)
[2022-07-27 05:10] VITALS: BP 126/63
[2022-07-27] MEDS: GLIMEPIRIDE 2 MG TAB PO SCH ×2 (07:30→16:24)
[2022-07-27] MEDS: metFORMIN (GLUCOPHAGE) 500MG TAB PO SCH ×2 (08:00→16:24)
[2022-07-27] MEDS: ATORVASTATIN 20 MG TAB PO SCH (09:00)
[2022-07-27] MEDS: FLUTICASONE PROP 0.05% NASAL SPRAY 16 GM (FLONASE) NARES SCH ×2 (09:00→20:30)
[2022-07-27] MEDS: GABAPENTIN 300 MG CAP PO SCH (09:00)
[2022-07-27] MEDS: TAMSULOSIN 0.4 MG CAP PO SCH (09:00)
[2022-07-27] MEDS: QUEtiapine FUMARATE 25 MG TAB PO SCH ×2 (09:00→20:30)
[2022-07-27] MEDS: APIXABAN 5 MG TAB (ELIQUIS) PO SCH ×2 (09:00→20:30)
[2022-07-27] MEDS: SODIUM CHLORIDE NASAL 0.65% SPRAY BTL (OCEAN) SCH ×2 (09:00→20:31)
[2022-07-27] MEDS: NAPROXEN 250 MG TAB PO PRN (13:03)
[2022-07-27] MEDS: carisoprodoL 350 MG TAB PO PRN (16:23)
[2022-07-27] MEDS: PSEUDOEPHEDRINE 30 MG TAB PO PRN (16:23)
[2022-07-27] MEDS: SUMAtriptan SUCCINATE 25 MG TAB PO PRN ×2 (16:24→20:31)
[2022-07-27] MEDS: guaiFENesin 200 MG TAB PO PRN ×2 (16:24→20:31)
[2022-07-27] MEDS: ALPRAZolam 0.5 MG TAB PO PRN (20:30)
[2022-07-27] MEDS: RAMELTEON 8 MG TAB (ROZEREM) PO PRN (20:30)
[2022-07-27] MEDS: ACETAMINOPHEN TAB 650MG DOSE (2X325MG) PO PRN (20:31)
[2022-07-28] MEDS: SODIUM CHLORIDE 5% OD SCH ×6 (01:00→22:07)
[2022-07-28 06:00] VITALS: BP 152/88
[2022-07-28] MEDS: GLIMEPIRIDE 2 MG TAB PO SCH ×3 (07:30→17:39)
[2022-07-28] MEDS: metFORMIN (GLUCOPHAGE) 500MG TAB PO SCH ×3 (08:00→18:00)
[2022-07-28] MEDS: ATORVASTATIN 20 MG TAB PO SCH (09:00)
[2022-07-28] MEDS: SODIUM CHLORIDE NASAL 0.65% SPRAY BTL (OCEAN) SCH ×2 (09:00→22:05)
[2022-07-28] MEDS: TAMSULOSIN 0.4 MG CAP PO SCH (09:00)
[2022-07-28] MEDS: APIXABAN 5 MG TAB (ELIQUIS) PO SCH ×2 (09:00→22:04)
[2022-07-28] MEDS: PSEUDOEPHEDRINE 30 MG TAB PO PRN ×2 (09:25→22:05)
[2022-07-28] MEDS: QUEtiapine FUMARATE 25 MG TAB PO SCH ×2 (09:25→22:04)
[2022-07-28] MEDS: GABAPENTIN 300 MG CAP PO SCH (09:25)
[2022-07-28] MEDS: FLUTICASONE PROP 0.05% NASAL SPRAY 16 GM (FLONASE) NARES SCH ×2 (09:26→22:04)
[2022-07-28] MEDS: carisoprodoL 350 MG TAB PO PRN (10:33)
[2022-07-28] MEDS: ALPRAZolam 0.5 MG TAB PO PRN ×2 (10:33→22:05)
[2022-07-28] MEDS: guaiFENesin 200 MG TAB PO PRN ×2 (10:33→22:05)
[2022-07-28] MEDS: SUMAtriptan SUCCINATE 25 MG TAB PO PRN ×2 (17:39→22:05)
[2022-07-28] MEDS: RAMELTEON 8 MG TAB (ROZEREM) PO PRN (22:04)
[2022-07-28] MEDS: SENOKOT S TAB PO PRN (22:05)
[2022-07-28] MEDS: NAPROXEN 250 MG TAB PO PRN (22:06)
[2022-07-29] MEDS: SODIUM CHLORIDE 5% OD SCH ×4 (05:00→12:48)
[2022-07-29] MEDS: metFORMIN (GLUCOPHAGE) 500MG TAB PO SCH ×2 (08:00→17:17)
[2022-07-29] MEDS: FLUTICASONE PROP 0.05% NASAL SPRAY 16 GM (FLONASE) NARES SCH ×2 (08:30→20:06)
[2022-07-29] MEDS: SODIUM CHLORIDE NASAL 0.65% SPRAY BTL (OCEAN) SCH ×2 (08:31→20:05)
[2022-07-29] MEDS: TAMSULOSIN 0.4 MG CAP PO SCH (08:34)
[2022-07-29] MEDS: GABAPENTIN 300 MG CAP PO SCH ×2 (08:34→20:03)
[2022-07-29] MEDS: GLIMEPIRIDE 2 MG TAB PO SCH ×2 (08:34→17:16)
[2022-07-29] MEDS: QUEtiapine FUMARATE 25 MG TAB PO SCH ×2 (08:34→19:58)
[2022-07-29] MEDS: ATORVASTATIN 20 MG TAB PO SCH (08:35)
[2022-07-29] MEDS: APIXABAN 5 MG TAB (ELIQUIS) PO SCH ×2 (08:35→19:58)
[2022-07-29] MEDS: ACETAMINOPHEN TAB 650MG DOSE (2X325MG) PO PRN (14:46)
[2022-07-29] MEDS: NAPROXEN 250 MG TAB PO PRN (17:53)
[2022-07-29] MEDS: RAMELTEON 8 MG TAB (ROZEREM) PO PRN (19:58)
[2022-07-29] MEDS: ALPRAZolam 0.5 MG TAB PO PRN (20:04)
[2022-07-29] MEDS: carisoprodoL 350 MG TAB PO PRN (20:04)
[2022-07-29] MEDS: DIVALPROEX 250MG *ER* TAB PO SCH ×2 (20:08→20:27)
[2022-07-30] MEDS: carisoprodoL 350 MG TAB PO PRN ×2 (02:20→15:55)
[2022-07-30] MEDS: GLIMEPIRIDE 2 MG TAB PO SCH ×2 (07:30→18:28)
[2022-07-30] MEDS: metFORMIN (GLUCOPHAGE) 500MG TAB PO SCH ×2 (08:00→18:29)
[2022-07-30] MEDS: ATORVASTATIN 20 MG TAB PO SCH (09:00)
[2022-07-30] MEDS: TAMSULOSIN 0.4 MG CAP PO SCH (09:00)
[2022-07-30] MEDS: SODIUM CHLORIDE NASAL 0.65% SPRAY BTL (OCEAN) SCH ×2 (09:00→19:23)
[2022-07-30] MEDS: APIXABAN 5 MG TAB (ELIQUIS) PO SCH ×2 (09:00→19:22)
[2022-07-30] MEDS: DIVALPROEX 250MG *ER* TAB PO SCH ×2 (09:37→19:22)
[2022-07-30] MEDS: FLUTICASONE PROP 0.05% NASAL SPRAY 16 GM (FLONASE) NARES SCH ×2 (09:37→19:23)
[2022-07-30] MEDS: QUEtiapine FUMARATE 25 MG TAB PO SCH ×2 (09:37→19:22)
[2022-07-30] MEDS: GABAPENTIN 300 MG CAP PO SCH ×2 (09:37→19:22)
[2022-07-30] MEDS: ALPRAZolam 0.5 MG TAB PO PRN (15:58)
[2022-07-30] MEDS: PSEUDOEPHEDRINE 30 MG TAB PO PRN (18:27)
[2022-07-30] MEDS: NAPROXEN 250 MG TAB PO PRN (18:28)
[2022-07-30 19:19] LABS: APPEARANCE, URINE MANUAL CLEAR (CLEAR); BILIRUBIN, URINE MANUAL NEGATIVE (NEGATIVE); BLOOD URINE MANUAL NEGATIVE (NEGATIVE); COLOR, URINE MANUAL YELLOW (YELLOW); GLUCOSE, URINE (UA) MANUAL 4+(1000 MG/DL) mg/dL (NEGATIVE); KETONE, URINE MANUAL 1+ mg/dL (NEGATIVE); LEUKOCYTE ESTERASE, URINE MAN POSITIVE (NEGATIVE); NITRITE, URINE MANUAL NEGATIVE (NEGATIVE); PROTEIN, URINE MANUAL NEGATIVE (NEGATIVE); UROBILINOGEN, URINE MANUAL NORMAL (NORMAL)
[2022-07-30] MEDS: RAMELTEON 8 MG TAB (ROZEREM) PO PRN (19:22)
[2022-07-30 19:47] LABS: BACTERIA, URINE NONE SEEN; HYALINE CAST, URINE NONE SEEN /lpf (0-1); SQUAMOUS EPITHELIAL CELL URINE SMALL AMOUNT /hpf (SMALL AMT)
[2022-07-31] MEDS: carisoprodoL 350 MG TAB PO PRN ×3 (04:19→21:44)
[2022-07-31 06:00] VITALS: BP 151/87
[2022-07-31] MEDS: NAPROXEN 250 MG TAB PO PRN (06:41)
[2022-07-31] MEDS: GLIMEPIRIDE 2 MG TAB PO SCH ×2 (07:30→17:19)
[2022-07-31] MEDS: metFORMIN (GLUCOPHAGE) 500MG TAB PO SCH ×2 (08:00→17:19)
[2022-07-31] MEDS: QUEtiapine FUMARATE 25 MG TAB PO SCH ×2 (08:52→21:44)
[2022-07-31] MEDS: DIVALPROEX 250MG *ER* TAB PO SCH (08:52)
[2022-07-31] MEDS: GABAPENTIN 300 MG CAP PO SCH ×2 (08:52→21:44)
[2022-07-31] MEDS: APIXABAN 5 MG TAB (ELIQUIS) PO SCH ×2 (08:52→21:44)
[2022-07-31] MEDS: TAMSULOSIN 0.4 MG CAP PO SCH (08:52)
[2022-07-31] MEDS: ATORVASTATIN 20 MG TAB PO SCH (08:52)
[2022-07-31] MEDS: SODIUM CHLORIDE NASAL 0.65% SPRAY BTL (OCEAN) SCH ×2 (08:53→21:46)
[2022-07-31] MEDS: FLUTICASONE PROP 0.05% NASAL SPRAY 16 GM (FLONASE) NARES SCH ×2 (08:53→21:00)
[2022-07-31] MEDS: guaiFENesin 200 MG TAB PO PRN (08:58)
[2022-07-31] MEDS: PSEUDOEPHEDRINE 30 MG TAB PO PRN (08:58)
[2022-07-31] MEDS: SENOKOT S TAB PO PRN (09:01)
[2022-07-31] MEDS: RAMELTEON 8 MG TAB (ROZEREM) PO PRN (21:44)
[2022-07-31] MEDS: AUGMENTIN 875 MG TAB PO SCH (21:44)
[2022-08-01 05:00] VITALS: BP 148/85
[2022-08-01] MEDS: GLIMEPIRIDE 2 MG TAB PO SCH ×2 (07:30→18:08)
[2022-08-01] MEDS: metFORMIN (GLUCOPHAGE) 500MG TAB PO SCH ×2 (08:00→18:08)
[2022-08-01] MEDS: PSEUDOEPHEDRINE 30 MG TAB PO PRN (09:11)
[2022-08-01] MEDS: guaiFENesin 200 MG TAB PO PRN (09:11)
[2022-08-01] MEDS: TAMSULOSIN 0.4 MG CAP PO SCH (09:11)
[2022-08-01] MEDS: ATORVASTATIN 20 MG TAB PO SCH (09:11)
[2022-08-01] MEDS: VENLAFAXINE **XR** 37.5 MG CAPSULE PO SCH (09:11)
[2022-08-01] MEDS: GABAPENTIN 300 MG CAP PO SCH ×2 (09:11→20:16)
[2022-08-01] MEDS: carisoprodoL 350 MG TAB PO PRN ×2 (09:11→16:37)
[2022-08-01] MEDS: QUEtiapine FUMARATE 25 MG TAB PO SCH ×2 (09:11→20:16)
[2022-08-01] MEDS: AUGMENTIN 875 MG TAB PO SCH (09:11)
[2022-08-01] MEDS: APIXABAN 5 MG TAB (ELIQUIS) PO SCH ×2 (09:11→20:16)
[2022-08-01] MEDS: FLUTICASONE PROP 0.05% NASAL SPRAY 16 GM (FLONASE) NARES SCH ×2 (09:11→20:15)
[2022-08-01] MEDS: SODIUM CHLORIDE NASAL 0.65% SPRAY BTL (OCEAN) SCH ×2 (09:12→20:16)
[2022-08-01] MEDS: OSELTAMIVIR PHOSPHATE 75 MG CAP (TAMIFLU) PO SCH ×2 (18:08→20:16)
[2022-08-01] MEDS: ACETAMINOPHEN TAB 650MG DOSE (2X325MG) PO PRN (20:16)
[2022-08-01] MEDS: NAPROXEN 250 MG TAB PO PRN (20:32)
[2022-08-02] MEDS: ACETAMINOPHEN TAB 650MG DOSE (2X325MG) PO PRN (03:31)
[2022-08-02] MEDS: GLIMEPIRIDE 2 MG TAB PO SCH ×2 (07:30→17:30)
[2022-08-02] MEDS: QUEtiapine FUMARATE 25 MG TAB PO SCH ×3 (09:00→20:02)
[2022-08-02] MEDS: VENLAFAXINE **XR** 37.5 MG CAPSULE PO SCH (09:00)
[2022-08-02] MEDS: TAMSULOSIN 0.4 MG CAP PO SCH (09:00)
[2022-08-02] MEDS: SODIUM CHLORIDE NASAL 0.65% SPRAY BTL (OCEAN) SCH ×2 (09:00→20:02)
[2022-08-02] MEDS: GABAPENTIN 300 MG CAP PO SCH ×2 (09:00→20:02)
[2022-08-02] MEDS: FLUTICASONE PROP 0.05% NASAL SPRAY 16 GM (FLONASE) NARES SCH ×2 (09:00→20:02)
[2022-08-02] MEDS: carisoprodoL 350 MG TAB PO PRN ×3 (09:55→22:08)
[2022-08-02] MEDS: PSEUDOEPHEDRINE 30 MG TAB PO PRN (09:55)
[2022-08-02] MEDS: OSELTAMIVIR PHOSPHATE 75 MG CAP (TAMIFLU) PO SCH ×2 (09:55→20:02)
[2022-08-02] MEDS: ATORVASTATIN 20 MG TAB PO SCH (09:57)
[2022-08-02] MEDS: APIXABAN 5 MG TAB (ELIQUIS) PO SCH ×2 (09:57→20:01)
[2022-08-02] MEDS: metFORMIN (GLUCOPHAGE) 500MG TAB PO SCH ×2 (10:01→18:00)
[2022-08-02] MEDS: NAPROXEN 250 MG TAB PO PRN (14:57)
[2022-08-02] MEDS: RAMELTEON 8 MG TAB (ROZEREM) PO PRN (20:02)
[2022-08-03 06:22] VITALS: BP 154/94
[2022-08-03] MEDS: GLIMEPIRIDE 2 MG TAB PO SCH ×2 (07:30→17:04)
[2022-08-03] MEDS: metFORMIN (GLUCOPHAGE) 500MG TAB PO SCH ×2 (08:00→17:04)
[2022-08-03] MEDS: TAMSULOSIN 0.4 MG CAP PO SCH (09:00)
[2022-08-03] MEDS: VENLAFAXINE **XR** 37.5 MG CAPSULE PO SCH (09:00)
[2022-08-03] MEDS: FLUTICASONE PROP 0.05% NASAL SPRAY 16 GM (FLONASE) NARES SCH ×2 (10:33→19:30)
[2022-08-03] MEDS: APIXABAN 5 MG TAB (ELIQUIS) PO SCH ×2 (10:33→19:30)
[2022-08-03] MEDS: QUEtiapine FUMARATE 25 MG TAB PO SCH ×2 (10:33→19:29)
[2022-08-03] MEDS: GABAPENTIN 300 MG CAP PO SCH ×2 (10:33→19:29)
[2022-08-03] MEDS: SODIUM CHLORIDE NASAL 0.65% SPRAY BTL (OCEAN) SCH ×2 (10:33→19:31)
[2022-08-03] MEDS: ATORVASTATIN 20 MG TAB PO SCH (10:33)
[2022-08-03] MEDS: OSELTAMIVIR PHOSPHATE 75 MG CAP (TAMIFLU) PO SCH ×2 (10:38→19:30)
[2022-08-03] MEDS: ACETAMINOPHEN TAB 650MG DOSE (2X325MG) PO PRN (10:44)
[2022-08-03] MEDS: NAPROXEN 250 MG TAB PO PRN (10:45)
[2022-08-03] MEDS: carisoprodoL 350 MG TAB PO PRN ×2 (12:25→19:29)
[2022-08-03] MEDS: ALPRAZolam 0.5 MG TAB PO PRN (17:53)
[2022-08-03] MEDS: RAMELTEON 8 MG TAB (ROZEREM) PO PRN (19:29)
[2022-08-04 06:00] VITALS: BP 159/96
[2022-08-04] MEDS: NAPROXEN 250 MG TAB PO PRN ×2 (06:12→19:40)
[2022-08-04] MEDS: metFORMIN (GLUCOPHAGE) 500MG TAB PO SCH ×2 (06:55→17:18)
[2022-08-04] MEDS: GLIMEPIRIDE 2 MG TAB PO SCH ×2 (06:55→17:18)
[2022-08-04] MEDS: TAMSULOSIN 0.4 MG CAP PO SCH (09:00)
[2022-08-04] MEDS: ATORVASTATIN 20 MG TAB PO SCH (09:00)
[2022-08-04] MEDS: GABAPENTIN 300 MG CAP PO SCH ×2 (09:39→19:39)
[2022-08-04] MEDS: OSELTAMIVIR PHOSPHATE 75 MG CAP (TAMIFLU) PO SCH ×2 (09:39→19:39)
[2022-08-04] MEDS: APIXABAN 5 MG TAB (ELIQUIS) PO SCH ×2 (09:39→19:40)
[2022-08-04] MEDS: FLUTICASONE PROP 0.05% NASAL SPRAY 16 GM (FLONASE) NARES SCH ×2 (09:39→19:40)
[2022-08-04] MEDS: SODIUM CHLORIDE NASAL 0.65% SPRAY BTL (OCEAN) SCH ×2 (09:39→19:42)
[2022-08-04] MEDS: QUEtiapine FUMARATE 25 MG TAB PO SCH ×2 (09:39→19:40)
[2022-08-04] MEDS: VENLAFAXINE **XR** 37.5 MG CAPSULE PO SCH (09:41)
[2022-08-04] MEDS: carisoprodoL 350 MG TAB PO PRN ×2 (09:52→17:17)
[2022-08-04] MEDS: RAMELTEON 8 MG TAB (ROZEREM) PO PRN (19:40)
[2022-08-04] MEDS: ALPRAZolam 0.5 MG TAB PO PRN (23:40)
[2022-08-05 05:48] VITALS: BP 156/94
[2022-08-05] MEDS: ATORVASTATIN 20 MG TAB PO SCH (07:42)
[2022-08-05] MEDS: OSELTAMIVIR PHOSPHATE 75 MG CAP (TAMIFLU) PO SCH ×2 (07:42→19:15)
[2022-08-05] MEDS: VENLAFAXINE **XR** 37.5 MG CAPSULE PO SCH (07:42)
[2022-08-05] MEDS: QUEtiapine FUMARATE 25 MG TAB PO SCH ×2 (07:42→19:15)
[2022-08-05] MEDS: GABAPENTIN 300 MG CAP PO SCH ×2 (07:42→19:15)
[2022-08-05] MEDS: GLIMEPIRIDE 2 MG TAB PO SCH ×3 (07:42→17:24)
[2022-08-05] MEDS: APIXABAN 5 MG TAB (ELIQUIS) PO SCH ×2 (07:43→19:15)
[2022-08-05] MEDS: TAMSULOSIN 0.4 MG CAP PO SCH (07:43)
[2022-08-05] MEDS: FLUTICASONE PROP 0.05% NASAL SPRAY 16 GM (FLONASE) NARES SCH ×2 (07:43→19:15)
[2022-08-05] MEDS: metFORMIN (GLUCOPHAGE) 500MG TAB PO SCH ×3 (07:43→17:23)
[2022-08-05] MEDS: SODIUM CHLORIDE NASAL 0.65% SPRAY BTL (OCEAN) SCH ×2 (07:44→19:16)
[2022-08-05] MEDS: NAPROXEN 250 MG TAB PO PRN ×2 (07:44→07:52)
[2022-08-05] MEDS: carisoprodoL 350 MG TAB PO PRN (17:23)
[2022-08-05] MEDS: RAMELTEON 8 MG TAB (ROZEREM) PO PRN (19:15)
[2022-08-06] MEDS: NAPROXEN 250 MG TAB PO PRN (01:35)
[2022-08-06 06:00] VITALS: BP 157/92
[2022-08-06] MEDS: GLIMEPIRIDE 2 MG TAB PO SCH ×3 (07:30→18:40)
[2022-08-06] MEDS: metFORMIN (GLUCOPHAGE) 500MG TAB PO SCH ×3 (08:00→18:40)
[2022-08-06] MEDS: QUEtiapine FUMARATE 25 MG TAB PO SCH ×3 (09:00→20:48)
[2022-08-06] MEDS: APIXABAN 5 MG TAB (ELIQUIS) PO SCH ×3 (09:00→20:48)
[2022-08-06] MEDS: SODIUM CHLORIDE NASAL 0.65% SPRAY BTL (OCEAN) SCH ×2 (09:00→20:48)
[2022-08-06] MEDS: ATORVASTATIN 20 MG TAB PO SCH ×2 (09:00→10:38)
[2022-08-06] MEDS: VENLAFAXINE **XR** 37.5 MG CAPSULE PO SCH ×2 (09:00→10:39)
[2022-08-06] MEDS: GABAPENTIN 300 MG CAP PO SCH ×3 (09:00→20:48)
[2022-08-06] MEDS: TAMSULOSIN 0.4 MG CAP PO SCH ×2 (09:00→10:39)
[2022-08-06] MEDS: FLUTICASONE PROP 0.05% NASAL SPRAY 16 GM (FLONASE) NARES SCH ×2 (10:40→20:48)
[2022-08-06] MEDS: carisoprodoL 350 MG TAB PO PRN (18:47)
[2022-08-07] MEDS: NAPROXEN 250 MG TAB PO PRN ×2 (04:56→18:41)
[2022-08-07] MEDS: PSEUDOEPHEDRINE 30 MG TAB PO PRN (05:03)
[2022-08-07] MEDS: GLIMEPIRIDE 2 MG TAB PO SCH ×2 (07:30→17:16)
[2022-08-07] MEDS: VENLAFAXINE **XR** 37.5 MG CAPSULE PO SCH (09:00)
[2022-08-07] MEDS: TAMSULOSIN 0.4 MG CAP PO SCH (09:00)
[2022-08-07] MEDS: FLUTICASONE PROP 0.05% NASAL SPRAY 16 GM (FLONASE) NARES SCH ×2 (09:00→20:51)
[2022-08-07] MEDS: SODIUM CHLORIDE NASAL 0.65% SPRAY BTL (OCEAN) SCH ×2 (09:00→22:45)
[2022-08-07] MEDS: ATORVASTATIN 20 MG TAB PO SCH (09:00)
[2022-08-07] MEDS: QUEtiapine FUMARATE 25 MG TAB PO SCH ×2 (09:00→20:51)
[2022-08-07] MEDS: GABAPENTIN 300 MG CAP PO SCH ×2 (09:00→20:51)
[2022-08-07] MEDS: APIXABAN 5 MG TAB (ELIQUIS) PO SCH ×2 (09:00→20:51)
[2022-08-07] MEDS: metFORMIN (GLUCOPHAGE) 500MG TAB PO SCH ×2 (09:06→17:16)
[2022-08-07] MEDS: guaiFENesin 200 MG TAB PO PRN (22:45)
[2022-08-08 06:00] VITALS: BP 164/92
[2022-08-08] MEDS: GLIMEPIRIDE 2 MG TAB PO SCH ×3 (07:30→17:23)
[2022-08-08] MEDS: metFORMIN (GLUCOPHAGE) 500MG TAB PO SCH ×3 (08:00→17:23)
[2022-08-08] MEDS: VENLAFAXINE **XR** 37.5 MG CAPSULE PO SCH ×2 (08:03→09:00)
[2022-08-08] MEDS: GABAPENTIN 300 MG CAP PO SCH ×3 (08:03→20:41)
[2022-08-08] MEDS: APIXABAN 5 MG TAB (ELIQUIS) PO SCH ×3 (08:03→20:42)
[2022-08-08] MEDS: QUEtiapine FUMARATE 25 MG TAB PO SCH ×3 (08:03→20:42)
[2022-08-08] MEDS: SODIUM CHLORIDE NASAL 0.65% SPRAY BTL (OCEAN) SCH ×2 (08:04→20:42)
[2022-08-08] MEDS: ATORVASTATIN 20 MG TAB PO SCH ×2 (08:04→09:00)
[2022-08-08] MEDS: TAMSULOSIN 0.4 MG CAP PO SCH (08:04)
[2022-08-08] MEDS: FLUTICASONE PROP 0.05% NASAL SPRAY 16 GM (FLONASE) NARES SCH ×2 (08:04→21:57)
[2022-08-08] MEDS: carisoprodoL 350 MG TAB PO PRN ×2 (15:04→20:45)
[2022-08-08] MEDS: guaiFENesin 200 MG TAB PO PRN (20:41)
[2022-08-08] MEDS: ALPRAZolam 0.5 MG TAB PO PRN (22:01)
[2022-08-09] MEDS: GABAPENTIN 300 MG CAP PO SCH ×2 (08:12→21:00)
[2022-08-09] MEDS: ATORVASTATIN 20 MG TAB PO SCH (08:12)
[2022-08-09] MEDS: metFORMIN (GLUCOPHAGE) 500MG TAB PO SCH ×2 (08:12→17:07)
[2022-08-09] MEDS: VENLAFAXINE **XR** 37.5 MG CAPSULE PO SCH (08:12)
[2022-08-09] MEDS: APIXABAN 5 MG TAB (ELIQUIS) PO SCH ×2 (08:12→21:00)
[2022-08-09] MEDS: GLIMEPIRIDE 2 MG TAB PO SCH ×2 (08:13→17:07)
[2022-08-09] MEDS: SODIUM CHLORIDE NASAL 0.65% SPRAY BTL (OCEAN) SCH ×2 (08:13→21:00)
[2022-08-09] MEDS: FLUTICASONE PROP 0.05% NASAL SPRAY 16 GM (FLONASE) NARES SCH ×2 (08:13→21:00)
[2022-08-09] MEDS: TAMSULOSIN 0.4 MG CAP PO SCH (08:13)
[2022-08-09] MEDS: QUEtiapine FUMARATE 25 MG TAB PO SCH ×2 (08:13→21:00)
[2022-08-09] MEDS: carisoprodoL 350 MG TAB PO PRN (14:30)
[2022-08-09] MEDS: guaiFENesin 200 MG TAB PO PRN (17:09)
[2022-08-10 05:21] VITALS: BP 142/88
[2022-08-10] MEDS: guaiFENesin 200 MG TAB PO PRN ×2 (05:28→17:22)
[2022-08-10] MEDS: GLIMEPIRIDE 2 MG TAB PO SCH ×2 (07:30→17:18)
[2022-08-10] MEDS: metFORMIN (GLUCOPHAGE) 500MG TAB PO SCH ×2 (08:00→17:19)
[2022-08-10] MEDS: ATORVASTATIN 20 MG TAB PO SCH (09:00)
[2022-08-10] MEDS: VENLAFAXINE **XR** 37.5 MG CAPSULE PO SCH (09:00)
[2022-08-10] MEDS: TAMSULOSIN 0.4 MG CAP PO SCH (09:00)
[2022-08-10] MEDS: QUEtiapine FUMARATE 25 MG TAB PO SCH ×2 (09:00→21:00)
[2022-08-10] MEDS: GABAPENTIN 300 MG CAP PO SCH ×2 (09:00→21:00)
[2022-08-10] MEDS: SODIUM CHLORIDE NASAL 0.65% SPRAY BTL (OCEAN) SCH ×2 (09:16→21:00)
[2022-08-10] MEDS: FLUTICASONE PROP 0.05% NASAL SPRAY 16 GM (FLONASE) NARES SCH ×2 (09:17→21:00)
[2022-08-10] MEDS: NAPROXEN 250 MG TAB PO PRN (09:20)
[2022-08-10] MEDS: APIXABAN 5 MG TAB (ELIQUIS) PO SCH ×2 (12:18→21:00)
[2022-08-10] MEDS: carisoprodoL 350 MG TAB PO PRN (17:19)
[2022-08-11] MEDS: TAMSULOSIN 0.4 MG CAP PO SCH (08:38)
[2022-08-11] MEDS: ATORVASTATIN 20 MG TAB PO SCH (08:38)
[2022-08-11] MEDS: QUEtiapine FUMARATE 25 MG TAB PO SCH ×2 (08:38→22:13)
[2022-08-11] MEDS: VENLAFAXINE **XR** 37.5 MG CAPSULE PO SCH (08:38)
[2022-08-11] MEDS: GABAPENTIN 300 MG CAP PO SCH ×2 (08:38→22:13)
[2022-08-11] MEDS: GLIMEPIRIDE 2 MG TAB PO SCH ×2 (08:38→17:56)
[2022-08-11] MEDS: metFORMIN (GLUCOPHAGE) 500MG TAB PO SCH ×2 (08:38→17:56)
[2022-08-11] MEDS: APIXABAN 5 MG TAB (ELIQUIS) PO SCH ×2 (08:39→22:13)
[2022-08-11] MEDS: FLUTICASONE PROP 0.05% NASAL SPRAY 16 GM (FLONASE) NARES SCH ×2 (08:41→22:13)
[2022-08-11] MEDS: SODIUM CHLORIDE NASAL 0.65% SPRAY BTL (OCEAN) SCH ×2 (08:41→22:13)
[2022-08-11] MEDS: carisoprodoL 350 MG TAB PO PRN (12:17)
[2022-08-12] MEDS: GLIMEPIRIDE 2 MG TAB PO SCH ×2 (07:30→17:41)
[2022-08-12] MEDS: metFORMIN (GLUCOPHAGE) 500MG TAB PO SCH ×2 (08:00→17:41)
[2022-08-12] MEDS: GABAPENTIN 300 MG CAP PO SCH ×2 (09:00→20:04)
[2022-08-12] MEDS: VENLAFAXINE **XR** 37.5 MG CAPSULE PO SCH (09:00)
[2022-08-12] MEDS: SODIUM CHLORIDE NASAL 0.65% SPRAY BTL (OCEAN) SCH ×2 (09:00→20:04)
[2022-08-12] MEDS: APIXABAN 5 MG TAB (ELIQUIS) PO SCH ×2 (09:00→20:04)
[2022-08-12] MEDS: TAMSULOSIN 0.4 MG CAP PO SCH (09:00)
[2022-08-12] MEDS: ATORVASTATIN 20 MG TAB PO SCH (09:00)
[2022-08-12] MEDS: FLUTICASONE PROP 0.05% NASAL SPRAY 16 GM (FLONASE) NARES SCH ×2 (09:00→20:04)
[2022-08-12] MEDS: QUEtiapine FUMARATE 25 MG TAB PO SCH ×2 (09:00→20:04)
[2022-08-12] MEDS: carisoprodoL 350 MG TAB PO PRN (17:41)
[2022-08-12] MEDS: PSEUDOEPHEDRINE 30 MG TAB PO PRN (20:02)
[2022-08-12] MEDS: RAMELTEON 8 MG TAB (ROZEREM) PO PRN (20:52)
[2022-08-13 06:00] VITALS: BP 139/76
[2022-08-13] MEDS: QUEtiapine FUMARATE 25 MG TAB PO SCH ×3 (09:42→21:48)
[2022-08-13] MEDS: GABAPENTIN 300 MG CAP PO SCH ×3 (09:42→21:49)
[2022-08-13] MEDS: ATORVASTATIN 20 MG TAB PO SCH (09:42)
[2022-08-13] MEDS: VENLAFAXINE **XR** 37.5 MG CAPSULE PO SCH (09:42)
[2022-08-13] MEDS: TAMSULOSIN 0.4 MG CAP PO SCH (09:42)
[2022-08-13] MEDS: FLUTICASONE PROP 0.05% NASAL SPRAY 16 GM (FLONASE) NARES SCH ×3 (09:43→21:49)
[2022-08-13] MEDS: metFORMIN (GLUCOPHAGE) 500MG TAB PO SCH ×2 (09:43→18:00)
[2022-08-13] MEDS: SODIUM CHLORIDE NASAL 0.65% SPRAY BTL (OCEAN) SCH ×2 (09:45→21:00)
[2022-08-13] MEDS: APIXABAN 5 MG TAB (ELIQUIS) PO SCH ×3 (09:45→21:49)
[2022-08-13] MEDS: GLIMEPIRIDE 2 MG TAB PO SCH ×2 (09:52→17:30)
[2022-08-13] MEDS: carisoprodoL 350 MG TAB PO PRN (11:35)
[2022-08-13] MEDS: RAMELTEON 8 MG TAB (ROZEREM) PO PRN (21:49)
[2022-08-14 05:00] VITALS: BP 146/84
[2022-08-14] MEDS: GLIMEPIRIDE 2 MG TAB PO SCH ×2 (07:30→17:30)
[2022-08-14] MEDS: metFORMIN (GLUCOPHAGE) 500MG TAB PO SCH ×2 (08:00→17:42)
[2022-08-14] MEDS: QUEtiapine FUMARATE 25 MG TAB PO SCH ×2 (09:00→21:00)
[2022-08-14] MEDS: VENLAFAXINE **XR** 37.5 MG CAPSULE PO SCH (09:00)
[2022-08-14] MEDS: APIXABAN 5 MG TAB (ELIQUIS) PO SCH ×2 (09:00→21:00)
[2022-08-14] MEDS: GABAPENTIN 300 MG CAP PO SCH ×2 (09:00→21:00)
[2022-08-14] MEDS: TAMSULOSIN 0.4 MG CAP PO SCH (09:00)
[2022-08-14] MEDS: FLUTICASONE PROP 0.05% NASAL SPRAY 16 GM (FLONASE) NARES SCH ×2 (09:00→21:00)
[2022-08-14] MEDS: SODIUM CHLORIDE NASAL 0.65% SPRAY BTL (OCEAN) SCH ×2 (09:00→21:00)
[2022-08-14] MEDS: ATORVASTATIN 20 MG TAB PO SCH (09:00)
[2022-08-14] MEDS: carisoprodoL 350 MG TAB PO PRN (11:32)
[2022-08-15 06:00] VITALS: BP 153/87
[2022-08-15] MEDS: FLUTICASONE PROP 0.05% NASAL SPRAY 16 GM (FLONASE) NARES SCH ×2 (07:56→21:00)
[2022-08-15] MEDS: APIXABAN 5 MG TAB (ELIQUIS) PO SCH ×2 (07:57→21:00)
[2022-08-15] MEDS: QUEtiapine FUMARATE 25 MG TAB PO SCH ×2 (07:57→21:00)
[2022-08-15] MEDS: GABAPENTIN 300 MG CAP PO SCH ×2 (07:57→21:00)
[2022-08-15] MEDS: ATORVASTATIN 20 MG TAB PO SCH (07:57)
[2022-08-15] MEDS: SODIUM CHLORIDE NASAL 0.65% SPRAY BTL (OCEAN) SCH ×2 (07:57→21:00)
[2022-08-15] MEDS: ALPRAZolam 0.5 MG TAB PO PRN (07:58)
[2022-08-15] MEDS: VENLAFAXINE **XR** 37.5 MG CAPSULE PO SCH (07:58)
[2022-08-15] MEDS: GLIMEPIRIDE 2 MG TAB PO SCH ×2 (07:58→17:42)
[2022-08-15] MEDS: TAMSULOSIN 0.4 MG CAP PO SCH (07:59)
[2022-08-15] MEDS: metFORMIN (GLUCOPHAGE) 500MG TAB PO SCH ×2 (07:59→17:43)
[2022-08-15] MEDS: NAPROXEN 250 MG TAB PO PRN (07:59)
[2022-08-16] MEDS: ATORVASTATIN 20 MG TAB PO SCH (09:26)
[2022-08-16] MEDS: GABAPENTIN 300 MG CAP PO SCH ×2 (09:26→21:00)
[2022-08-16] MEDS: APIXABAN 5 MG TAB (ELIQUIS) PO SCH ×2 (09:26→21:00)
[2022-08-16] MEDS: QUEtiapine FUMARATE 25 MG TAB PO SCH ×2 (09:26→21:00)
[2022-08-16] MEDS: GLIMEPIRIDE 2 MG TAB PO SCH ×2 (09:26→17:30)
[2022-08-16] MEDS: FLUTICASONE PROP 0.05% NASAL SPRAY 16 GM (FLONASE) NARES SCH ×2 (09:26→21:00)
[2022-08-16] MEDS: VENLAFAXINE **XR** 37.5 MG CAPSULE PO SCH (09:26)
[2022-08-16] MEDS: metFORMIN (GLUCOPHAGE) 500MG TAB PO SCH ×2 (09:26→18:00)
[2022-08-16] MEDS: SENOKOT S TAB PO PRN (09:26)
[2022-08-16] MEDS: TAMSULOSIN 0.4 MG CAP PO SCH (09:26)
[2022-08-16] MEDS: SODIUM CHLORIDE NASAL 0.65% SPRAY BTL (OCEAN) SCH ×2 (09:27→21:00)
[2022-08-17] MEDS: GLIMEPIRIDE 2 MG TAB PO SCH ×2 (07:30→17:10)
[2022-08-17] MEDS: GABAPENTIN 300 MG CAP PO SCH ×2 (08:47→20:31)
[2022-08-17] MEDS: ATORVASTATIN 20 MG TAB PO SCH (08:47)
[2022-08-17] MEDS: metFORMIN (GLUCOPHAGE) 500MG TAB PO SCH ×2 (08:47→17:10)
[2022-08-17] MEDS: APIXABAN 5 MG TAB (ELIQUIS) PO SCH ×2 (08:47→20:31)
[2022-08-17] MEDS: VENLAFAXINE **XR** 37.5 MG CAPSULE PO SCH (08:48)
[2022-08-17] MEDS: TAMSULOSIN 0.4 MG CAP PO SCH (08:49)
[2022-08-17] MEDS: QUEtiapine FUMARATE 25 MG TAB PO SCH ×2 (08:49→20:31)
[2022-08-17] MEDS: FLUTICASONE PROP 0.05% NASAL SPRAY 16 GM (FLONASE) NARES SCH ×2 (08:49→20:31)
[2022-08-17] MEDS: SODIUM CHLORIDE NASAL 0.65% SPRAY BTL (OCEAN) SCH ×2 (08:49→20:31)
[2022-08-17] MEDS: NAPROXEN 250 MG TAB PO PRN (13:35)
[2022-08-18] MEDS: carisoprodoL 350 MG TAB PO PRN ×2 (07:24→14:35)
[2022-08-18] MEDS: NAPROXEN 250 MG TAB PO PRN ×2 (07:24→18:06)
[2022-08-18] MEDS: ALPRAZolam 0.5 MG TAB PO PRN ×2 (07:24→18:07)
[2022-08-18] MEDS: GLIMEPIRIDE 2 MG TAB PO SCH ×2 (07:48→17:30)
[2022-08-18] MEDS: ATORVASTATIN 20 MG TAB PO SCH (07:48)
[2022-08-18] MEDS: SODIUM CHLORIDE NASAL 0.65% SPRAY BTL (OCEAN) SCH ×3 (07:49→21:55)
[2022-08-18] MEDS: FLUTICASONE PROP 0.05% NASAL SPRAY 16 GM (FLONASE) NARES SCH ×3 (07:49→21:54)
[2022-08-18] MEDS: GABAPENTIN 300 MG CAP PO SCH ×3 (07:49→21:53)
[2022-08-18] MEDS: metFORMIN (GLUCOPHAGE) 500MG TAB PO SCH ×2 (07:49→17:51)
[2022-08-18] MEDS: APIXABAN 5 MG TAB (ELIQUIS) PO SCH ×2 (07:50→21:54)
[2022-08-18] MEDS: QUEtiapine FUMARATE 25 MG TAB PO SCH ×3 (07:50→21:54)
[2022-08-18] MEDS: VENLAFAXINE **XR** 37.5 MG CAPSULE PO SCH (07:50)
[2022-08-18] MEDS: TAMSULOSIN 0.4 MG CAP PO SCH (07:50)
[2022-08-18] MEDS: guaiFENesin 200 MG TAB PO PRN (14:35)
[2022-08-18] MEDS: PSEUDOEPHEDRINE 30 MG TAB PO PRN (18:07)
[2022-08-18] MEDS: RAMELTEON 8 MG TAB (ROZEREM) PO PRN (21:53)
[2022-08-19 06:00] VITALS: BP 145/87
[2022-08-19] MEDS: GLIMEPIRIDE 2 MG TAB PO SCH ×2 (07:05→16:49)
[2022-08-19] MEDS: metFORMIN (GLUCOPHAGE) 500MG TAB PO SCH ×2 (07:05→17:11)
[2022-08-19] MEDS: QUEtiapine FUMARATE 25 MG TAB PO SCH (09:00)
[2022-08-19] MEDS: TAMSULOSIN 0.4 MG CAP PO SCH (09:00)
[2022-08-19] MEDS: FLUTICASONE PROP 0.05% NASAL SPRAY 16 GM (FLONASE) NARES SCH (09:00)
[2022-08-19] MEDS: VENLAFAXINE **XR** 37.5 MG CAPSULE PO SCH (09:00)
[2022-08-19] MEDS: ATORVASTATIN 20 MG TAB PO SCH (09:00)
[2022-08-19] MEDS: GABAPENTIN 300 MG CAP PO SCH (09:00)
[2022-08-19] MEDS: SODIUM CHLORIDE NASAL 0.65% SPRAY BTL (OCEAN) SCH (09:00)
[2022-08-19] MEDS: APIXABAN 5 MG TAB (ELIQUIS) PO SCH ×2 (09:02→19:45)
[2022-08-19] MEDS: carisoprodoL 350 MG TAB PO PRN (10:15)
[2022-08-19] MEDS: ALPRAZolam 0.5 MG TAB PO PRN (10:16)
[2022-08-20 06:00] VITALS: BP 138/81
[2022-08-20] MEDS: APIXABAN 5 MG TAB (ELIQUIS) PO SCH ×2 (10:20→20:40)
[2022-08-20] MEDS: ATORVASTATIN 20 MG TAB PO SCH (10:20)
[2022-08-20] MEDS: metFORMIN (GLUCOPHAGE) 500MG TAB PO SCH ×2 (10:20→18:30)
[2022-08-20] MEDS: GLIMEPIRIDE 2 MG TAB PO SCH ×2 (10:20→18:30)
[2022-08-20] MEDS: QUEtiapine FUMARATE 25 MG TAB PO SCH ×2 (10:20→20:40)
[2022-08-20] MEDS: GABAPENTIN 300 MG CAP PO SCH ×2 (10:20→20:40)
[2022-08-20] MEDS: TAMSULOSIN 0.4 MG CAP PO SCH (10:20)
[2022-08-20] MEDS: VENLAFAXINE **XR** 37.5 MG CAPSULE PO SCH (10:21)
[2022-08-20] MEDS: FLUTICASONE PROP 0.05% NASAL SPRAY 16 GM (FLONASE) NARES SCH ×2 (10:21→20:40)
[2022-08-20] MEDS: SODIUM CHLORIDE NASAL 0.65% SPRAY BTL (OCEAN) SCH ×2 (10:21→20:40)
[2022-08-20] MEDS: carisoprodoL 350 MG TAB PO PRN (12:04)
[2022-08-20] MEDS: NAPROXEN 250 MG TAB PO PRN (15:57)
[2022-08-20] MEDS: PSEUDOEPHEDRINE 30 MG TAB PO PRN (18:30)
[2022-08-20] MEDS: RAMELTEON 8 MG TAB (ROZEREM) PO PRN (20:40)
[2022-08-20] MEDS: ALPRAZolam 0.5 MG TAB PO PRN (20:40)
[2022-08-20] MEDS: ACETAMINOPHEN TAB 650MG DOSE (2X325MG) PO PRN (20:41)
[2022-08-21] MEDS: carisoprodoL 350 MG TAB PO PRN ×2 (02:02→08:40)
[2022-08-21 06:34] VITALS: BP 136/79
[2022-08-21] MEDS: GLIMEPIRIDE 2 MG TAB PO SCH ×2 (07:30→17:22)
[2022-08-21] MEDS: TAMSULOSIN 0.4 MG CAP PO SCH (08:37)
[2022-08-21] MEDS: NAPROXEN 250 MG TAB PO PRN (08:37)
[2022-08-21] MEDS: ATORVASTATIN 20 MG TAB PO SCH (08:38)
[2022-08-21] MEDS: QUEtiapine FUMARATE 25 MG TAB PO SCH ×2 (08:38→20:15)
[2022-08-21] MEDS: APIXABAN 5 MG TAB (ELIQUIS) PO SCH ×2 (08:39→20:15)
[2022-08-21] MEDS: VENLAFAXINE **XR** 37.5 MG CAPSULE PO SCH (08:39)
[2022-08-21] MEDS: metFORMIN (GLUCOPHAGE) 500MG TAB PO SCH ×2 (08:39→17:22)
[2022-08-21] MEDS: FLUTICASONE PROP 0.05% NASAL SPRAY 16 GM (FLONASE) NARES SCH ×2 (08:41→20:15)
[2022-08-21] MEDS: GABAPENTIN 300 MG CAP PO SCH ×2 (08:41→20:15)
[2022-08-21] MEDS: SODIUM CHLORIDE NASAL 0.65% SPRAY BTL (OCEAN) SCH ×2 (08:41→20:15)
[2022-08-22 06:33] VITALS: BP 144/85
[2022-08-22] MEDS: GLIMEPIRIDE 2 MG TAB PO SCH ×2 (07:44→18:26)
[2022-08-22] MEDS: GABAPENTIN 300 MG CAP PO SCH ×2 (07:44→20:04)
[2022-08-22] MEDS: metFORMIN (GLUCOPHAGE) 500MG TAB PO SCH ×2 (07:45→18:27)
[2022-08-22] MEDS: QUEtiapine FUMARATE 25 MG TAB PO SCH ×2 (07:45→20:04)
[2022-08-22] MEDS: VENLAFAXINE **XR** 37.5 MG CAPSULE PO SCH (07:45)
[2022-08-22] MEDS: ACETAMINOPHEN TAB 650MG DOSE (2X325MG) PO PRN ×2 (07:45→18:26)
[2022-08-22] MEDS: APIXABAN 5 MG TAB (ELIQUIS) PO SCH ×2 (07:50→20:04)
[2022-08-22] MEDS: SODIUM CHLORIDE NASAL 0.65% SPRAY BTL (OCEAN) SCH ×2 (07:51→20:07)
[2022-08-22] MEDS: ATORVASTATIN 20 MG TAB PO SCH (07:51)
[2022-08-22] MEDS: TAMSULOSIN 0.4 MG CAP PO SCH (07:51)
[2022-08-22] MEDS: FLUTICASONE PROP 0.05% NASAL SPRAY 16 GM (FLONASE) NARES SCH ×2 (07:51→20:07)
[2022-08-22] MEDS: NAPROXEN 250 MG TAB PO PRN (14:49)
[2022-08-23] MEDS: NAPROXEN 250 MG TAB PO PRN ×2 (06:49→19:53)
[2022-08-23] MEDS: TAMSULOSIN 0.4 MG CAP PO SCH (10:13)
[2022-08-23] MEDS: GLIMEPIRIDE 2 MG TAB PO SCH ×2 (10:13→17:17)
[2022-08-23] MEDS: metFORMIN (GLUCOPHAGE) 500MG TAB PO SCH ×2 (10:13→17:17)
[2022-08-23] MEDS: VENLAFAXINE **XR** 37.5 MG CAPSULE PO SCH (10:13)
[2022-08-23] MEDS: APIXABAN 5 MG TAB (ELIQUIS) PO SCH ×2 (10:13→19:51)
[2022-08-23] MEDS: FLUTICASONE PROP 0.05% NASAL SPRAY 16 GM (FLONASE) NARES SCH ×2 (10:14→19:52)
[2022-08-23] MEDS: GABAPENTIN 300 MG CAP PO SCH ×2 (10:14→19:51)
[2022-08-23] MEDS: SODIUM CHLORIDE NASAL 0.65% SPRAY BTL (OCEAN) SCH ×2 (10:14→19:51)
[2022-08-23] MEDS: QUEtiapine FUMARATE 25 MG TAB PO SCH ×2 (10:14→19:51)
[2022-08-23] MEDS: ATORVASTATIN 20 MG TAB PO SCH (10:14)
[2022-08-23] MEDS: carisoprodoL 350 MG TAB PO PRN (11:17)
[2022-08-23] MEDS: SENOKOT S TAB PO PRN (19:52)
[2022-08-23] MEDS: ALPRAZolam 0.5 MG TAB PO PRN (19:52)
[2022-08-23] MEDS: RAMELTEON 8 MG TAB (ROZEREM) PO PRN (19:52)
[2022-08-24 05:00] VITALS: BP 133/72
[2022-08-24] MEDS: GLIMEPIRIDE 2 MG TAB PO SCH ×2 (08:33→17:49)
[2022-08-24] MEDS: GABAPENTIN 300 MG CAP PO SCH ×3 (08:34→20:37)
[2022-08-24] MEDS: metFORMIN (GLUCOPHAGE) 500MG TAB PO SCH ×2 (08:34→17:50)
[2022-08-24] MEDS: QUEtiapine FUMARATE 25 MG TAB PO SCH ×3 (08:34→20:37)
[2022-08-24] MEDS: APIXABAN 5 MG TAB (ELIQUIS) PO SCH ×2 (08:34→20:37)
[2022-08-24] MEDS: VENLAFAXINE **XR** 37.5 MG CAPSULE PO SCH (08:36)
[2022-08-24] MEDS: TAMSULOSIN 0.4 MG CAP PO SCH (09:00)
[2022-08-24] MEDS: ATORVASTATIN 20 MG TAB PO SCH (09:00)
[2022-08-24] MEDS: SODIUM CHLORIDE NASAL 0.65% SPRAY BTL (OCEAN) SCH ×3 (09:00→20:37)
[2022-08-24] MEDS: FLUTICASONE PROP 0.05% NASAL SPRAY 16 GM (FLONASE) NARES SCH ×3 (09:00→20:38)
[2022-08-24] MEDS: RAMELTEON 8 MG TAB (ROZEREM) PO PRN (20:37)
[2022-08-24] MEDS: guaiFENesin 200 MG TAB PO PRN (20:37)
[2022-08-24] MEDS: PSEUDOEPHEDRINE 30 MG TAB PO PRN (20:37)
[2022-08-24] MEDS: NAPROXEN 250 MG TAB PO PRN (20:38)
[2022-08-24] MEDS: ALPRAZolam 0.5 MG TAB PO PRN (20:38)
[2022-08-25] MEDS: APIXABAN 5 MG TAB (ELIQUIS) PO SCH ×2 (03:00→10:38)
[2022-08-25 06:00] VITALS: BP 145/84
[2022-08-25] MEDS: SODIUM CHLORIDE NASAL 0.65% SPRAY BTL (OCEAN) SCH (10:38)
[2022-08-25] MEDS: FLUTICASONE PROP 0.05% NASAL SPRAY 16 GM (FLONASE) NARES SCH (10:38)
[2022-08-25] MEDS: GABAPENTIN 300 MG CAP PO SCH (10:38)
[2022-08-25] MEDS: GLIMEPIRIDE 2 MG TAB PO SCH ×2 (10:38→17:22)
[2022-08-25] MEDS: metFORMIN (GLUCOPHAGE) 500MG TAB PO SCH ×2 (10:39→17:23)
[2022-08-25] MEDS: VENLAFAXINE **XR** 37.5 MG CAPSULE PO SCH (10:39)
[2022-08-25] MEDS: QUEtiapine FUMARATE 25 MG TAB PO SCH (10:39)
[2022-08-25] MEDS: ATORVASTATIN 20 MG TAB PO SCH (10:39)
[2022-08-25] MEDS: TAMSULOSIN 0.4 MG CAP PO SCH (10:39)
[2022-08-25] MEDS: NAPROXEN 250 MG TAB PO PRN (13:41)
[2022-08-25] MEDS: PSEUDOEPHEDRINE 30 MG TAB PO PRN (13:41)
[2022-08-25] MEDS: carisoprodoL 350 MG TAB PO PRN (17:22)
[2022-08-25] MEDS: AMITRIPTYLINE 25MG TABLET PO SCH (18:25)
[2022-08-26] MEDS: NAPROXEN 250 MG TAB PO PRN (04:25)
[2022-08-26 05:00] VITALS: BP 147/86
[2022-08-26] MEDS: GABAPENTIN 300 MG CAP PO SCH ×2 (09:18→20:18)
[2022-08-26] MEDS: QUEtiapine FUMARATE 25 MG TAB PO SCH ×2 (09:18→20:18)
[2022-08-26] MEDS: VENLAFAXINE **XR** 37.5 MG CAPSULE PO SCH (09:18)
[2022-08-26] MEDS: ATORVASTATIN 20 MG TAB PO SCH (09:18)
[2022-08-26] MEDS: GLIMEPIRIDE 2 MG TAB PO SCH ×2 (09:19→17:36)
[2022-08-26] MEDS: APIXABAN 5 MG TAB (ELIQUIS) PO SCH ×2 (09:19→20:18)
[2022-08-26] MEDS: TAMSULOSIN 0.4 MG CAP PO SCH (09:19)
[2022-08-26] MEDS: PSEUDOEPHEDRINE 30 MG TAB PO PRN (09:19)
[2022-08-26] MEDS: metFORMIN (GLUCOPHAGE) 500MG TAB PO SCH ×2 (09:19→17:36)
[2022-08-26] MEDS: FLUTICASONE PROP 0.05% NASAL SPRAY 16 GM (FLONASE) NARES SCH ×2 (09:20→20:20)
[2022-08-26] MEDS: SODIUM CHLORIDE NASAL 0.65% SPRAY BTL (OCEAN) SCH ×2 (09:20→20:19)
[2022-08-26] MEDS: carisoprodoL 350 MG TAB PO PRN ×2 (13:13→20:19)
[2022-08-26] MEDS: ALPRAZolam 0.5 MG TAB PO PRN (17:37)
[2022-08-26] MEDS: AMITRIPTYLINE 25MG TABLET PO SCH (20:18)
[2022-08-26] MEDS: ACETAMINOPHEN TAB 650MG DOSE (2X325MG) PO PRN (20:19)
[2022-08-26] MEDS: RAMELTEON 8 MG TAB (ROZEREM) PO PRN (20:19)
[2022-08-26] MEDS: SENOKOT S TAB PO PRN (20:19)
[2022-08-27 08:10] VITALS: BP 133/86
[2022-08-27 08:39] LABS: BASO % 0.5 % (0.0-1.0); EOS # 0.4 10^3/uL (0.0-0.5); HEMATOCRIT 45.7 % (42.0-52.0); HEMOGLOBIN 14.9 g/dl (13.5-17.5); LYMPH # 2.9 10^3/uL (1.5-5.0); LYMPH % 36.6 % (24.0-44.0); MEAN CORPUSCULAR HEMOGLOBIN 27.5 pg (27.0-33.0); MEAN CORPUSCULAR HGB CONC 32.6 g/dl (32.0-36.5); MEAN CORPUSCULAR VOLUME 84.5 fl (80.0-96.0); MONO # 0.6 10^3/uL (0.0-0.8); MONO % 7.4 % (2.0-8.0); NEUTROPHILS % 50.2 % (36.0-66.0); PLATELET COUNT, AUTOMATED 238 10^3/uL (150-450); RED BLOOD COUNT 5.41 10^6/uL (4.30-6.10); WHITE BLOOD COUNT 7.9 10^3/uL (4.0-10.0)
[2022-08-27] MEDS: SODIUM CHLORIDE NASAL 0.65% SPRAY BTL (OCEAN) SCH ×2 (09:00→20:50)
[2022-08-27] MEDS: FLUTICASONE PROP 0.05% NASAL SPRAY 16 GM (FLONASE) NARES SCH ×2 (09:00→20:50)
[2022-08-27 09:06] LABS: ERYTHROCYTE SEDIMENTATION RATE 28 mm/hr (0-20)
[2022-08-27 09:10] LABS: ALBUMIN 3.3 G/DL (3.2-5.2); ALKALINE PHOSPHATASE 124 U/L (46-116); ALT/SGPT 13 U/L (7.0-40); AST/SGOT 15 U/L (<34); BILIRUBIN,TOTAL 0.4 MG/DL (0.3-1.2); BLOOD UREA NITROGEN 26 MG/DL (9-23); CARBON DIOXIDE LEVEL 21 MMOL/L (20-31); CHLORIDE LEVEL 99 MMOL/L (98-107); CREATININE FOR GFR 0.64 MG/DL (0.70-1.30); GLOMERULAR FILTRATION RATE > 60.0 (>42); GLUCOSE, FASTING 152 MG/DL (74-106); POTASSIUM SERUM 4.1 MMOL/L (3.5-5.1); SODIUM LEVEL 134 MMOL/L (136-145); TOTAL PROTEIN 6.2 G/DL (5.7-8.2)
[2022-08-27] MEDS: metFORMIN (GLUCOPHAGE) 500MG TAB PO SCH ×2 (09:14→18:27)
[2022-08-27] MEDS: APIXABAN 5 MG TAB (ELIQUIS) PO SCH ×2 (09:14→20:00)
[2022-08-27] MEDS: GABAPENTIN 300 MG CAP PO SCH ×2 (09:14→20:00)
[2022-08-27] MEDS: ATORVASTATIN 20 MG TAB PO SCH (09:14)
[2022-08-27] MEDS: GLIMEPIRIDE 2 MG TAB PO SCH ×2 (09:15→18:28)
[2022-08-27] MEDS: QUEtiapine FUMARATE 25 MG TAB PO SCH ×2 (09:15→20:00)
[2022-08-27] MEDS: VENLAFAXINE **XR** 37.5 MG CAPSULE PO SCH (09:15)
[2022-08-27] MEDS: TAMSULOSIN 0.4 MG CAP PO SCH (09:15)
[2022-08-27] MEDS: carisoprodoL 350 MG TAB PO PRN (16:37)
[2022-08-27] MEDS: AMITRIPTYLINE 25MG TABLET PO SCH (20:00)
[2022-08-27] MEDS: RAMELTEON 8 MG TAB (ROZEREM) PO PRN (20:00)
[2022-08-27] MEDS: ALPRAZolam 0.5 MG TAB PO PRN (20:01)
[2022-08-28 02:20] VITALS: BP 132/74
[2022-08-28 06:00] VITALS: BP 137/75
[2022-08-28] MEDS: GLIMEPIRIDE 2 MG TAB PO SCH ×2 (07:30→17:30)
[2022-08-28] MEDS: metFORMIN (GLUCOPHAGE) 500MG TAB PO SCH ×2 (08:00→18:00)
[2022-08-28] MEDS: APIXABAN 5 MG TAB (ELIQUIS) PO SCH ×2 (08:37→21:19)
[2022-08-28] MEDS: VENLAFAXINE **XR** 37.5 MG CAPSULE PO SCH (09:00)
[2022-08-28] MEDS: GABAPENTIN 300 MG CAP PO SCH ×2 (09:00→21:19)
[2022-08-28] MEDS: TAMSULOSIN 0.4 MG CAP PO SCH (09:00)
[2022-08-28] MEDS: QUEtiapine FUMARATE 25 MG TAB PO SCH ×2 (09:00→21:19)
[2022-08-28] MEDS: FLUTICASONE PROP 0.05% NASAL SPRAY 16 GM (FLONASE) NARES SCH ×2 (09:00→21:00)
[2022-08-28] MEDS: SODIUM CHLORIDE NASAL 0.65% SPRAY BTL (OCEAN) SCH ×2 (09:00→21:00)
[2022-08-28] MEDS: ASPIRIN 81MG CHEW TABLET PO SCH ×3 (09:00→16:36)
[2022-08-28 09:12] LABS: BASO # 0.1 10^3/uL (0.0-0.2); BASO % 0.6 % (0.0-1.0); EOS # 0.3 10^3/uL (0.0-0.5); EOS % 3.7 % (0.0-3.0); HEMATOCRIT 47.5 % (42.0-52.0); HEMOGLOBIN 15.4 g/dl (13.5-17.5); LYMPH # 2.8 10^3/uL (1.5-5.0); MEAN CORPUSCULAR HEMOGLOBIN 27.3 pg (27.0-33.0); MEAN CORPUSCULAR HGB CONC 32.4 g/dl (32.0-36.5); MEAN CORPUSCULAR VOLUME 84.1 fl (80.0-96.0); MONO # 0.6 10^3/uL (0.0-0.8); MONO % 7.3 % (2.0-8.0); NEUTROPHILS # 4.5 10^3/uL (1.5-8.5); NEUTROPHILS % 54.2 % (36.0-66.0); PLATELET COUNT, AUTOMATED 245 10^3/uL (150-450); RED BLOOD COUNT 5.65 10^6/uL (4.30-6.10); WHITE BLOOD COUNT 8.4 10^3/uL (4.0-10.0)
[2022-08-28 09:28] LABS: INR 1.14; PROTHROMBIN TIME 14.8 SECONDS (12.5-14.5)
[2022-08-28 09:29] LABS: PARTIAL THROMBOPLASTIN TIME 39.4 SECONDS (24.8-34.2)
[2022-08-28 09:37] LABS: ALBUMIN 3.6 G/DL (3.2-5.2); ALKALINE PHOSPHATASE 129 U/L (46-116); ALT/SGPT 16 U/L (7.0-40); AST/SGOT 16 U/L (<34); BILIRUBIN,TOTAL 0.5 MG/DL (0.3-1.2); BLOOD UREA NITROGEN 24 MG/DL (9-23); CALCIUM LEVEL 9.1 MG/DL (8.3-10.6); CARBON DIOXIDE LEVEL 22 MMOL/L (20-31); CHLORIDE LEVEL 98 MMOL/L (98-107); CREATININE FOR GFR 0.67 MG/DL (0.70-1.30); GLOMERULAR FILTRATION RATE > 60.0 (>42); GLUCOSE, FASTING 85 MG/DL (74-106); POTASSIUM SERUM 4.1 MMOL/L (3.5-5.1); SODIUM LEVEL 135 MMOL/L (136-145); TOTAL PROTEIN 6.8 G/DL (5.7-8.2)
[2022-08-28 14:00] VITALS: BP 158/116
[2022-08-28 14:30] VITALS: BP 150/90
[2022-08-28] MEDS: carisoprodoL 350 MG TAB PO PRN ×2 (14:35→16:36)
[2022-08-28] MEDS: METOPROLOL TART 25 MG TABLET PO SCH (18:00)
[2022-08-28 18:47] VITALS: BP 136/78
[2022-08-28 20:34] VITALS: BP 139/78
[2022-08-28] MEDS: RAMELTEON 8 MG TAB (ROZEREM) PO PRN (21:18)
[2022-08-28] MEDS: ATORVASTATIN 20 MG TAB PO SCH (21:19)
[2022-08-28] MEDS: AMITRIPTYLINE 25MG TABLET PO SCH (21:19)
[2022-08-29] MEDS: carisoprodoL 350 MG TAB PO PRN (02:48)
[2022-08-29] MEDS: METOPROLOL TART 25 MG TABLET PO SCH ×4 (06:00→18:00)
[2022-08-29 06:04] VITALS: BP 136/78
[2022-08-29] MEDS: FLUTICASONE PROP 0.05% NASAL SPRAY 16 GM (FLONASE) NARES SCH ×2 (09:00→21:00)
[2022-08-29] MEDS: SODIUM CHLORIDE NASAL 0.65% SPRAY BTL (OCEAN) SCH ×2 (09:00→21:00)
[2022-08-29] MEDS: ASPIRIN 81MG CHEW TABLET PO SCH (09:29)
[2022-08-29] MEDS: GLIMEPIRIDE 2 MG TAB PO SCH ×2 (09:29→17:30)
[2022-08-29] MEDS: TAMSULOSIN 0.4 MG CAP PO SCH (09:29)
[2022-08-29] MEDS: APIXABAN 5 MG TAB (ELIQUIS) PO SCH ×2 (09:29→22:08)
[2022-08-29] MEDS: VENLAFAXINE **XR** 37.5 MG CAPSULE PO SCH (09:30)
[2022-08-29] MEDS: ACETAMINOPHEN TAB 650MG DOSE (2X325MG) PO PRN (12:37)
[2022-08-29] MEDS: DIVALPROEX SPRINKLE 125 MG CAP PO SCH ×2 (12:52→22:08)
[2022-08-29 14:00] VITALS: BP 139/95
[2022-08-29 20:00] VITALS: BP 152/92
[2022-08-29] MEDS: ATORVASTATIN 20 MG TAB PO SCH (22:08)
[2022-08-29] MEDS: AMITRIPTYLINE 25MG TABLET PO SCH (22:11)
[2022-08-30 06:00] VITALS: BP 133/85
[2022-08-30] MEDS: METOPROLOL TART 25 MG TABLET PO SCH ×4 (06:00→17:27)
[2022-08-30] MEDS: VENLAFAXINE **XR** 37.5 MG CAPSULE PO SCH (08:00)
[2022-08-30] MEDS: GLIMEPIRIDE 2 MG TAB PO SCH ×2 (08:00→17:27)
[2022-08-30] MEDS: ASPIRIN 81MG CHEW TABLET PO SCH (08:00)
[2022-08-30] MEDS: TAMSULOSIN 0.4 MG CAP PO SCH (08:00)
[2022-08-30] MEDS: APIXABAN 5 MG TAB (ELIQUIS) PO SCH ×2 (08:00→21:53)
[2022-08-30] MEDS: DIVALPROEX SPRINKLE 125 MG CAP PO SCH (08:01)
[2022-08-30] MEDS: FLUTICASONE PROP 0.05% NASAL SPRAY 16 GM (FLONASE) NARES SCH ×2 (08:01→21:53)
[2022-08-30] MEDS: SODIUM CHLORIDE NASAL 0.65% SPRAY BTL (OCEAN) SCH ×2 (09:00→21:00)
[2022-08-30] MEDS: ACETAMINOPHEN TAB 650MG DOSE (2X325MG) PO PRN (11:21)
[2022-08-30] MEDS: traMADol 50 MG TAB PO PRN (13:40)
[2022-08-30 14:00] VITALS: BP 146/86
[2022-08-30 17:25] VITALS: BP 136/74
[2022-08-30] MEDS: AMITRIPTYLINE 25MG TABLET PO SCH (21:53)
[2022-08-30] MEDS: ATORVASTATIN 20 MG TAB PO SCH (21:53)
[2022-08-30 22:00] VITALS: BP 126/83
[2022-08-31] MEDS: traMADol 50 MG TAB PO PRN (03:30)
[2022-08-31 06:00] VITALS: BP 150/85
[2022-08-31] MEDS: METOPROLOL TART 25 MG TABLET PO SCH ×4 (06:00→18:00)
[2022-08-31 08:00] VITALS: BP 140/90
[2022-08-31] MEDS: APIXABAN 5 MG TAB (ELIQUIS) PO SCH ×2 (08:07→22:01)
[2022-08-31] MEDS: ASPIRIN 81MG CHEW TABLET PO SCH (08:07)
[2022-08-31] MEDS: TAMSULOSIN 0.4 MG CAP PO SCH (08:07)
[2022-08-31] MEDS: GLIMEPIRIDE 2 MG TAB PO SCH ×2 (08:07→18:13)
[2022-08-31] MEDS: VENLAFAXINE **XR** 37.5 MG CAPSULE PO SCH (08:07)
[2022-08-31] MEDS: FLUTICASONE PROP 0.05% NASAL SPRAY 16 GM (FLONASE) NARES SCH ×2 (08:08→21:00)
[2022-08-31] MEDS: SODIUM CHLORIDE NASAL 0.65% SPRAY BTL (OCEAN) SCH ×2 (09:00→21:00)
[2022-08-31] MEDS: LIDOCAINE 5% (LIDODERM) PATCH TD SCH (12:24)
[2022-08-31 14:00] VITALS: BP 140/70
[2022-08-31 22:00] VITALS: BP 151/97
[2022-08-31] MEDS: ATORVASTATIN 20 MG TAB PO SCH (22:01)
[2022-08-31] MEDS: AMITRIPTYLINE 25MG TABLET PO SCH (22:01)
[2022-09-01] MEDS: traMADol 50 MG TAB PO PRN (05:35)
[2022-09-01] MEDS: METOPROLOL TART 25 MG TABLET PO SCH ×4 (05:35→18:00)
[2022-09-01 06:00] VITALS: BP 159/97
[2022-09-01] MEDS: SODIUM CHLORIDE NASAL 0.65% SPRAY BTL (OCEAN) SCH ×2 (09:00→21:00)
[2022-09-01] MEDS: TAMSULOSIN 0.4 MG CAP PO SCH (10:52)
[2022-09-01] MEDS: FLUTICASONE PROP 0.05% NASAL SPRAY 16 GM (FLONASE) NARES SCH ×2 (10:52→21:00)
[2022-09-01] MEDS: VENLAFAXINE **XR** 37.5 MG CAPSULE PO SCH (10:52)
[2022-09-01] MEDS: APIXABAN 5 MG TAB (ELIQUIS) PO SCH ×2 (10:52→20:09)
[2022-09-01] MEDS: ASPIRIN 81MG CHEW TABLET PO SCH (10:52)
[2022-09-01] MEDS: LIDOCAINE 5% (LIDODERM) PATCH TD SCH (10:53)
[2022-09-01] MEDS: ACETAMINOPHEN TAB 650MG DOSE (2X325MG) PO PRN (10:54)
[2022-09-01] MEDS: GLIMEPIRIDE 2 MG TAB PO SCH ×2 (11:56→18:03)
[2022-09-01 14:00] VITALS: BP 149/95
[2022-09-01] MEDS: ATORVASTATIN 20 MG TAB PO SCH (20:10)
[2022-09-01] MEDS: AMITRIPTYLINE 25MG TABLET PO SCH (20:10)
[2022-09-01 20:35] VITALS: BP 150/96
[2022-09-02 00:16] VITALS: BP 147/95
[2022-09-02] MEDS: METOPROLOL TART 25 MG TABLET PO SCH ×4 (01:07→17:29)
[2022-09-02 05:59] VITALS: BP 148/99
[2022-09-02] MEDS: SENOKOT S TAB PO PRN (06:02)
[2022-09-02] MEDS: ASPIRIN 81MG CHEW TABLET PO SCH (08:47)
[2022-09-02] MEDS: TAMSULOSIN 0.4 MG CAP PO SCH (08:48)
[2022-09-02] MEDS: GLIMEPIRIDE 2 MG TAB PO SCH ×2 (08:48→17:30)
[2022-09-02] MEDS: APIXABAN 5 MG TAB (ELIQUIS) PO SCH ×2 (08:48→21:13)
[2022-09-02] MEDS: VENLAFAXINE **XR** 37.5 MG CAPSULE PO SCH (08:48)
[2022-09-02] MEDS: LIDOCAINE 5% (LIDODERM) PATCH TD SCH (08:48)
[2022-09-02] MEDS: FLUTICASONE PROP 0.05% NASAL SPRAY 16 GM (FLONASE) NARES SCH ×2 (08:49→21:13)
[2022-09-02] MEDS: SODIUM CHLORIDE NASAL 0.65% SPRAY BTL (OCEAN) SCH ×2 (08:49→21:18)
[2022-09-02] MEDS: MOM 30ML SUSPENSION UDC PO PRN (08:59)
[2022-09-02 14:14] VITALS: BP 151/97
[2022-09-02 14:16] VITALS: BP 120/84
[2022-09-02 17:30] VITALS: BP 144/98
[2022-09-02] MEDS: METOPROLOL TART 12.5 MG PER 1/2 TAB PO SCH (17:30)
[2022-09-02] MEDS: NITROGLYCERIN 2% OINT 1 GM *U/D* PKT TOP SCH (18:00)
[2022-09-02] MEDS: NS 1,000 ML IV SCH (18:12)
[2022-09-02 18:14] LABS: BASO % 0.3 % (0.0-1.0); EOS # 0.1 10^3/uL (0.0-0.5); EOS % 0.9 % (0.0-3.0); HEMATOCRIT 51.1 % (42.0-52.0); HEMOGLOBIN 16.9 g/dl (13.5-17.5); LYMPH # 1.6 10^3/uL (1.5-5.0); LYMPH % 11.9 % (24.0-44.0); MEAN CORPUSCULAR HEMOGLOBIN 27.5 pg (27.0-33.0); MEAN CORPUSCULAR HGB CONC 33.1 g/dl (32.0-36.5); MEAN CORPUSCULAR VOLUME 83.2 fl (80.0-96.0); MONO # 1.2 10^3/uL (0.0-0.8); MONO % 8.6 % (2.0-8.0); NEUTROPHILS # 10.6 10^3/uL (1.5-8.5); NEUTROPHILS % 77.7 % (36.0-66.0); PLATELET COUNT, AUTOMATED 311 10^3/uL (150-450); RED BLOOD COUNT 6.14 10^6/uL (4.30-6.10); WHITE BLOOD COUNT 13.7 10^3/uL (4.0-10.0)
[2022-09-02] MEDS: INSULIN LISPRO (NovoLOG) PER UNIT SC SCH ×2 (18:22→22:24)
[2022-09-02 18:51] LABS: ALBUMIN 3.2 G/DL (3.2-5.2); ALKALINE PHOSPHATASE 177 U/L (46-116); ALT/SGPT 34 U/L (7.0-40); AST/SGOT 46 U/L (<34); BILIRUBIN,TOTAL 0.8 MG/DL (0.3-1.2); BLOOD UREA NITROGEN 31 MG/DL (9-23); CALCIUM LEVEL 9.9 MG/DL (8.3-10.6); CARBON DIOXIDE LEVEL 23 MMOL/L (20-31); CHLORIDE LEVEL 100 MMOL/L (98-107); CREATININE FOR GFR 0.59 MG/DL (0.70-1.30); GLOMERULAR FILTRATION RATE > 60.0 (>42); GLUCOSE, FASTING 310 MG/DL (74-106); SODIUM LEVEL 134 MMOL/L (136-145); TOTAL PROTEIN 7.3 G/DL (5.7-8.2)
[2022-09-02 20:00] VITALS: BP 140/98
[2022-09-02] MEDS: ATORVASTATIN 20 MG TAB PO SCH (21:13)
[2022-09-02] MEDS: AMITRIPTYLINE 25MG TABLET PO SCH (21:13)
[2022-09-03] VITALS (7 sets, daily range): BP systolic 130–150; BP diastolic 90–100
[2022-09-03] MEDS: METOPROLOL TART 12.5 MG PER 1/2 TAB PO SCH ×4 (00:17→18:45)
[2022-09-03] MEDS: NITROGLYCERIN 2% OINT 1 GM *U/D* PKT TOP SCH ×4 (00:17→18:00)
[2022-09-03] MEDS: METOPROLOL TART 25 MG TABLET PO SCH ×4 (00:18→18:46)
[2022-09-03] MEDS: SENOKOT S TAB PO PRN ×2 (00:21→09:47)
[2022-09-03] MEDS: traMADol 50 MG TAB PO PRN (00:22)
[2022-09-03] MEDS: NS 1,000 ML IV SCH (03:38)
[2022-09-03 05:30] LABS: HEMATOCRIT 47.6 % (42.0-52.0); HEMOGLOBIN 15.8 g/dl (13.5-17.5); MEAN CORPUSCULAR HEMOGLOBIN 27.9 pg (27.0-33.0); MEAN CORPUSCULAR HGB CONC 33.2 g/dl (32.0-36.5); MEAN CORPUSCULAR VOLUME 84.1 fl (80.0-96.0); PLATELET COUNT, AUTOMATED 311 10^3/uL (150-450); RED BLOOD COUNT 5.66 10^6/uL (4.30-6.10); WHITE BLOOD COUNT 12.9 10^3/uL (4.0-10.0)
[2022-09-03 05:55] LABS: BLOOD UREA NITROGEN 31 MG/DL (9-23); CALCIUM LEVEL 9.2 MG/DL (8.3-10.6); CARBON DIOXIDE LEVEL 24 MMOL/L (20-31); CHLORIDE LEVEL 103 MMOL/L (98-107); CREATININE FOR GFR 0.57 MG/DL (0.70-1.30); GLOMERULAR FILTRATION RATE > 60.0 (>42); GLUCOSE, FASTING 210 MG/DL (74-106); POTASSIUM SERUM 4.1 MMOL/L (3.5-5.1); SODIUM LEVEL 138 MMOL/L (136-145)
[2022-09-03] MEDS: LIDOCAINE 5% (LIDODERM) PATCH TD SCH (09:45)
[2022-09-03] MEDS: MIRALAX *UNIT DOSE* 17GM PACKET PO PRN (09:45)
[2022-09-03] MEDS: INSULIN LISPRO (NovoLOG) PER UNIT SC SCH ×4 (09:45→20:43)
[2022-09-03] MEDS: ASPIRIN 81MG CHEW TABLET PO SCH (09:46)
[2022-09-03] MEDS: MOM 30ML SUSPENSION UDC PO PRN (09:46)
[2022-09-03] MEDS: TAMSULOSIN 0.4 MG CAP PO SCH (09:46)
[2022-09-03] MEDS: APIXABAN 5 MG TAB (ELIQUIS) PO SCH ×2 (09:47→20:42)
[2022-09-03] MEDS: FLUTICASONE PROP 0.05% NASAL SPRAY 16 GM (FLONASE) NARES SCH ×2 (09:47→20:44)
[2022-09-03] MEDS: SODIUM CHLORIDE NASAL 0.65% SPRAY BTL (OCEAN) SCH ×2 (09:47→20:44)
[2022-09-03] MEDS: VENLAFAXINE **XR** 37.5 MG CAPSULE PO SCH (09:47)
[2022-09-03] MEDS: AMITRIPTYLINE 25MG TABLET PO SCH (20:42)
[2022-09-03] MEDS: ATORVASTATIN 20 MG TAB PO SCH (20:42)
[2022-09-04] VITALS (8 sets, daily range): BP systolic 128–162; BP diastolic 89–110
[2022-09-04] MEDS: METOPROLOL TART 12.5 MG PER 1/2 TAB PO SCH ×4 (00:38→17:59)
[2022-09-04] MEDS: METOPROLOL TART 25 MG TABLET PO SCH ×4 (00:38→17:58)
[2022-09-04] MEDS: NITROGLYCERIN 2% OINT 1 GM *U/D* PKT TOP SCH ×2 (05:08)
[2022-09-04 06:31] LABS: HEMOGLOBIN 16.8 g/dl (13.5-17.5); MEAN CORPUSCULAR HEMOGLOBIN 27.6 pg (27.0-33.0); MEAN CORPUSCULAR HGB CONC 32.9 g/dl (32.0-36.5); MEAN CORPUSCULAR VOLUME 83.7 fl (80.0-96.0); PLATELET COUNT, AUTOMATED 375 10^3/uL (150-450); RED BLOOD COUNT 6.09 10^6/uL (4.30-6.10); WHITE BLOOD COUNT 11.7 10^3/uL (4.0-10.0)
[2022-09-04 06:45] LABS: BLOOD UREA NITROGEN 44 MG/DL (9-23); CALCIUM LEVEL 9.4 MG/DL (8.3-10.6); CARBON DIOXIDE LEVEL 25 MMOL/L (20-31); CHLORIDE LEVEL 104 MMOL/L (98-107); CREATININE FOR GFR 0.68 MG/DL (0.70-1.30); GLOMERULAR FILTRATION RATE > 60.0 (>42); GLUCOSE, FASTING 236 MG/DL (74-106); POTASSIUM SERUM 3.9 MMOL/L (3.5-5.1); SODIUM LEVEL 140 MMOL/L (136-145)
[2022-09-04] MEDS: VENLAFAXINE **XR** 37.5 MG CAPSULE PO SCH (08:44)
[2022-09-04] MEDS: ASPIRIN 81MG CHEW TABLET PO SCH (08:44)
[2022-09-04] MEDS: FLUTICASONE PROP 0.05% NASAL SPRAY 16 GM (FLONASE) NARES SCH (08:44)
[2022-09-04] MEDS: SODIUM CHLORIDE NASAL 0.65% SPRAY BTL (OCEAN) SCH ×2 (08:44→20:22)
[2022-09-04] MEDS: APIXABAN 5 MG TAB (ELIQUIS) PO SCH ×2 (08:44→20:21)
[2022-09-04] MEDS: TAMSULOSIN 0.4 MG CAP PO SCH (08:44)
[2022-09-04] MEDS: INSULIN LISPRO (NovoLOG) PER UNIT SC SCH ×4 (08:45→20:48)
[2022-09-04] MEDS: LIDOCAINE 5% (LIDODERM) PATCH TD SCH (08:45)
[2022-09-04] MEDS: SENOKOT S TAB PO SCH ×2 (14:41→20:21)
[2022-09-04] MEDS: AMITRIPTYLINE 10MG TABLET PO SCH (20:20)
[2022-09-04] MEDS: ATORVASTATIN 20 MG TAB PO SCH (20:21)
[2022-09-04] MEDS: KETOROLAC 30 MG/ML 1ML VIAL IV PRN (20:24)
[2022-09-05 00:03] VITALS: BP 154/100
[2022-09-05] MEDS: METOPROLOL TART 12.5 MG PER 1/2 TAB PO SCH ×5 (00:14→23:50)
[2022-09-05] MEDS: METOPROLOL TART 25 MG TABLET PO SCH ×5 (00:14→23:49)
[2022-09-05] MEDS: KETOROLAC 30 MG/ML 1ML VIAL IV PRN (03:49)
[2022-09-05 05:09] VITALS: BP 146/94
[2022-09-05 09:24] LABS: HEMATOCRIT 52.3 % (42.0-52.0); MEAN CORPUSCULAR HEMOGLOBIN 28.1 pg (27.0-33.0); MEAN CORPUSCULAR HGB CONC 32.5 g/dl (32.0-36.5); MEAN CORPUSCULAR VOLUME 86.3 fl (80.0-96.0); PLATELET COUNT, AUTOMATED 379 10^3/uL (150-450); RED BLOOD COUNT 6.06 10^6/uL (4.30-6.10); WHITE BLOOD COUNT 12.1 10^3/uL (4.0-10.0)
[2022-09-05 09:30] LABS: BLOOD UREA NITROGEN 52 MG/DL (9-23); CALCIUM LEVEL 9.3 MG/DL (8.3-10.6); CARBON DIOXIDE LEVEL 24 MMOL/L (20-31); CHLORIDE LEVEL 106 MMOL/L (98-107); CREATININE FOR GFR 0.73 MG/DL (0.70-1.30); GLOMERULAR FILTRATION RATE > 60.0 (>42); GLUCOSE, FASTING 270 MG/DL (74-106); POTASSIUM SERUM 4.1 MMOL/L (3.5-5.1); SODIUM LEVEL 141 MMOL/L (136-145)
[2022-09-05] MEDS: TAMSULOSIN 0.4 MG CAP PO SCH (09:34)
[2022-09-05] MEDS: SENOKOT S TAB PO SCH ×2 (09:34→21:04)
[2022-09-05] MEDS: LIDOCAINE 5% (LIDODERM) PATCH TD SCH (09:34)
[2022-09-05] MEDS: INSULIN LISPRO (NovoLOG) PER UNIT SC SCH ×4 (09:34→20:51)
[2022-09-05] MEDS: ASPIRIN 81MG CHEW TABLET PO SCH (09:34)
[2022-09-05] MEDS: APIXABAN 5 MG TAB (ELIQUIS) PO SCH ×2 (09:34→21:04)
[2022-09-05] MEDS: SODIUM CHLORIDE NASAL 0.65% SPRAY BTL (OCEAN) SCH ×2 (09:34→21:11)
[2022-09-05] MEDS: VENLAFAXINE **XR** 37.5 MG CAPSULE PO SCH (09:35)
[2022-09-05 14:00] VITALS: BP 120/96
[2022-09-05] MEDS: ATORVASTATIN 20 MG TAB PO SCH (21:04)
[2022-09-05] MEDS: AMITRIPTYLINE 10MG TABLET PO SCH (21:05)
[2022-09-05 21:13] VITALS: BP 130/78
[2022-09-06] MEDS: KETOROLAC 30 MG/ML 1ML VIAL IV PRN (03:03)
[2022-09-06] MEDS: METOPROLOL TART 25 MG TABLET PO SCH ×3 (05:57→17:08)
[2022-09-06] MEDS: METOPROLOL TART 12.5 MG PER 1/2 TAB PO SCH ×3 (06:01→17:08)
[2022-09-06 06:05] VITALS: BP 128/72
[2022-09-06 06:14] LABS: HEMATOCRIT 52.7 % (42.0-52.0); HEMOGLOBIN 16.7 g/dl (13.5-17.5); MEAN CORPUSCULAR HEMOGLOBIN 27.2 pg (27.0-33.0); MEAN CORPUSCULAR HGB CONC 31.7 g/dl (32.0-36.5); MEAN CORPUSCULAR VOLUME 85.8 fl (80.0-96.0); PLATELET COUNT, AUTOMATED 347 10^3/uL (150-450); RED BLOOD COUNT 6.14 10^6/uL (4.30-6.10); WHITE BLOOD COUNT 6.9 10^3/uL (4.0-10.0)
[2022-09-06 06:38] LABS: BLOOD UREA NITROGEN 44 MG/DL (9-23); CALCIUM LEVEL 9.4 MG/DL (8.3-10.6); CARBON DIOXIDE LEVEL 26 MMOL/L (20-31); CHLORIDE LEVEL 107 MMOL/L (98-107); CREATININE FOR GFR 0.77 MG/DL (0.70-1.30); GLOMERULAR FILTRATION RATE > 60.0 (>42); GLUCOSE, FASTING 201 MG/DL (74-106); POTASSIUM SERUM 3.8 MMOL/L (3.5-5.1); SODIUM LEVEL 143 MMOL/L (136-145)
[2022-09-06] MEDS: LIDOCAINE 5% (LIDODERM) PATCH TD SCH (08:04)
[2022-09-06] MEDS: SENOKOT S TAB PO SCH ×2 (08:05→22:00)
[2022-09-06] MEDS: TAMSULOSIN 0.4 MG CAP PO SCH (08:05)
[2022-09-06] MEDS: ASPIRIN 81MG CHEW TABLET PO SCH (08:05)
[2022-09-06] MEDS: VENLAFAXINE **XR** 37.5 MG CAPSULE PO SCH (08:05)
[2022-09-06] MEDS: APIXABAN 5 MG TAB (ELIQUIS) PO SCH ×2 (08:05→22:00)
[2022-09-06] MEDS: INSULIN LISPRO (NovoLOG) PER UNIT SC SCH ×4 (08:06→21:00)
[2022-09-06] MEDS: SODIUM CHLORIDE NASAL 0.65% SPRAY BTL (OCEAN) SCH ×2 (08:06→22:01)
[2022-09-06 14:00] VITALS: BP 135/92
[2022-09-06 21:40] VITALS: BP 144/90
[2022-09-06] MEDS: ATORVASTATIN 20 MG TAB PO SCH (22:00)
[2022-09-06] MEDS: AMITRIPTYLINE 10MG TABLET PO SCH (22:17)
[2022-09-07] MEDS: METOPROLOL TART 12.5 MG PER 1/2 TAB PO SCH ×4 (00:10→17:11)
[2022-09-07] MEDS: METOPROLOL TART 25 MG TABLET PO SCH ×4 (00:11→17:12)
[2022-09-07 05:10] VITALS: BP 138/98
[2022-09-07 08:00] VITALS: BP 148/100
[2022-09-07] MEDS: GLIMEPIRIDE 2 MG TAB PO SCH ×2 (08:09→17:13)
[2022-09-07] MEDS: VENLAFAXINE **XR** 37.5 MG CAPSULE PO SCH (08:10)
[2022-09-07] MEDS: SENOKOT S TAB PO SCH ×2 (08:10→21:02)
[2022-09-07] MEDS: ASPIRIN 81MG CHEW TABLET PO SCH (08:10)
[2022-09-07] MEDS: TAMSULOSIN 0.4 MG CAP PO SCH (08:10)
[2022-09-07] MEDS: APIXABAN 5 MG TAB (ELIQUIS) PO SCH (08:10)
[2022-09-07] MEDS: SODIUM CHLORIDE NASAL 0.65% SPRAY BTL (OCEAN) SCH ×2 (08:11→21:03)
[2022-09-07] MEDS: FAMOTIDINE 20 MG TAB PO SCH ×2 (08:11→21:02)
[2022-09-07] MEDS: LIDOCAINE 5% (LIDODERM) PATCH TD SCH (08:11)
[2022-09-07 14:00] VITALS: BP 140/100
[2022-09-07 17:11] VITALS: BP 140/90
[2022-09-07] MEDS: ACETAMINOPHEN TAB 650MG DOSE (2X325MG) PO PRN (17:13)
[2022-09-07] MEDS: AMITRIPTYLINE 10MG TABLET PO SCH (21:02)
[2022-09-07] MEDS: LORazepam 1 MG TAB PO PRN (21:02)
[2022-09-07] MEDS: MORPHINE 10MG/0.5ML ORAL CONCENTRATE SOLUTION U/D SL PRN (23:42)
[2022-09-08] MEDS: FAMOTIDINE 20 MG TAB PO SCH ×3 (09:00→20:02)
[2022-09-08] MEDS: SENOKOT S TAB PO SCH (09:00)
[2022-09-08] MEDS: SODIUM CHLORIDE NASAL 0.65% SPRAY BTL (OCEAN) SCH ×2 (09:00→20:02)
[2022-09-08] MEDS: VENLAFAXINE **XR** 37.5 MG CAPSULE PO SCH ×2 (09:00→10:14)
[2022-09-08] MEDS: MORPHINE 10MG/0.5ML ORAL CONCENTRATE SOLUTION U/D SL PRN ×2 (10:14→17:25)
[2022-09-08] MEDS: LIDOCAINE 5% (LIDODERM) PATCH TD SCH (10:17)
[2022-09-09] MEDS: MORPHINE 10MG/0.5ML ORAL CONCENTRATE SOLUTION U/D SL PRN ×2 (03:42→16:38)
[2022-09-09] MEDS: LIDOCAINE 5% (LIDODERM) PATCH TD SCH (08:09)
[2022-09-09] MEDS: FAMOTIDINE 20 MG TAB PO SCH ×2 (08:10→20:10)
[2022-09-09] MEDS: SODIUM CHLORIDE NASAL 0.65% SPRAY BTL (OCEAN) SCH ×2 (08:10→20:10)
[2022-09-09] MEDS: LORazepam 1 MG TAB PO PRN (22:31)
[~2022-09-10] VITALS: Ht 193 cm; Wt 106.4 kg
[2022-09-10] MEDS: MORPHINE 10MG/0.5ML ORAL CONCENTRATE SOLUTION U/D SL PRN ×2 (00:13→02:37)
[2022-09-10] MEDS: LORazepam 1 MG TAB PO PRN ×2 (00:49→02:52)
[~2022-09-10 03:55] MED LIST changes: +**NOTE PATIENT COMMENT** MISC XX SCH; +ACETAMINOPH W/CODEINE #3 TAB UD PO ONE; +ALBUTEROL SULFATE 2.5MG/0.5ML INH NEB SOLN NEB ONE; +ALPRAZolam 0.25 MG TAB PO ONE; +ALPRAZolam 0.5 MG TAB PO ONE; +APAP325T4 PO; +ATROPINE SULFATE 1% OPHTH SOLN 2ML BTL SL PRN; +BACLOFEN 10 MG TAB PO ONE; +BARIUM SULFATE 700 MG TABLET (E-Z-DISK) As Ordered ONE; +BISACODYL 10MG SUPP PR ONE; +BISACODYL 10MG SUPP PR PRN; +COLA100C5 PO; +COMBIVENT RESPIMAT 100-20MCG INHALER 4GM INH PRN; +CYCLOBENZAPRINE 5MG TABLET PO ONE; +CYCLOPENTOLATE 1% OPHTH SOLN 2ML BTL OU ONE; -D31000TA2 PO; +DEXTROSE 50% 50ML SYRINGE IV PRN; +DIGOXIN 0.25 MG TAB PO ONE; +DIVALPROEX 250MG TAB PO SCH; +DOCU100C16 PO; +E-Z-PAQUE 96% w/w SUSP 176GM BTL As Ordered ONE; +EMLA CREAM 5GM TUBE (LIDOCAINE/PRILOCAINE) TOP ONE; +FAMOTIDINE 20 MG TAB PO ONE; +FIORICET TAB PO ONE; +FLEET ENEMA PR ONE; +FLEET ENEMA PR PRN; +FLUORESCEIN OPHTH 1MG STRIP OU ONE; +FLUTICASONE PROP 0.05% NASAL SPRAY 16 GM (FLONASE) NARES SCH; +FUROSEMIDE 40 MG TAB PO ONE; +FUROSEMIDE 40MG/4ML VIAL IV ONE; +GABAPENTIN 100 MG CAP PO ONE; +GI COCKTAIL 50ML BTL(HYOSCYAMINE/MAALOX/LIDOCAINE VISCOUS)(1:3:1) PO ONE; +GLUCAGON INJ 1MG VIAL SC PRN; +GLUCOSE 4GM CHEW TABLET PO PRN; +HALOPERIDOL 5MG/ML 1ML VIAL IM PRN; +HOME MED LIST COMPLETE! XX SCH; +IBUPROFEN 800 MG TAB PO ONE; +IBUPROFEN 800 MG TAB PO PRN; +INSULIN LISPRO (NovoLOG) PER UNIT SC ONE; +ISOVUE-370 76% 100ML VIAL As Ordered ONE; +KCL 40MEQ in NS 1000ML 1,000 ML IV SCH; +KETOROLAC 30 MG/ML 1ML VIAL IM ONE; +KETOROLAC 30 MG/ML 1ML VIAL IV ONE; +KETOROLAC TROMETHAMINE 10 MG TAB PO ONE; +LACTOBACILLUS ACIDOPHILUS CAP (BACID) PO SCH; +LIDOCAINE 5% (LIDODERM) PATCH TD SCH; +LORATADINE 10 MG TAB PO ONE; +LORazepam 1 MG TAB PO ONE; +LOSA25TA13 PO; -LOSA25TA14 PO; +LR 1,000 ML IV ONE; +MAALOX 30 ML SUSP *UDC PO PRN; +MAGNESIUM OXIDE 400MG TAB (MAG-OX) PO ONE; +METOCLOPRAMIDE 5 MG TAB PO ONE; +METOCLOPRAMIDE INJ 10MG/2ML VIAL IV ONE; +METOCLOPRAMIDE INJ 10MG/2ML VIAL IV PRN; +NORCO, ANEXSIA 5/325MG TABLET (HYDROcodone/ACETAMINOPHEN) PO ONE; +NS 1,000 ML IV ONE; +NS 1,000 ML IV SCH; +NS 500 ML IV ONE; +NYSTATIN 100,000 UNITS/GM TOPICAL PWD 15GM TOP PRN; +OLANZapine INTRAMUSCULAR 10MG VIAL IM ONE; +OLANZapine INTRAMUSCULAR 10MG VIAL IM PRN; +OLANZapine INTRAMUSCULAR 10MG VIAL IM SCH; +ONDANSETRON 4MG 2ML VIAL IV ONE; +ONDANSETRON 4MG 2ML VIAL IV PRN; +ONDANSETRON 4MG ORAL DISINTEGRATING TAB PO PRN; +ONDANSETRON 4MG TAB PO PRN; +PERCOCET 5MG/325MG TAB PO ONE; +PHENYLEPHRINE 2.5% OPHTH SOL 2ML OU ONE; +PILL CUTTER 1 EACH XX PRN; +POTASSIUM CHLORIDE 10MEQ SR TABLET PO ONE; +PROCHLORPERAZINE 10MG 2ML VIAL IV ONE; +PROCHLORPERAZINE 5MG TAB PO ONE; +PROPARACAINE 0.5% OPHTH SOL 15ML OU ONE; +QUEtiapine FUMARATE 25 MG TAB PO ONE; +REMDESIVIR 200 MG in NS 250 ML IV ONE; +SCOPOLAMINE 1MG TRANSDERMAL PATCH TOP PRN; +SODIUM CHLORIDE 0.9% INJ 10 ML SYR IV ONE; +TAMSULOSIN 0.4 MG CAP PO ONE; +TRAM50TA2 PO; +TROPICAMIDE 1% OPHTH SOLN 15ML OU ONE; +VARIBAR NECTAR 40% w/v 240ML SUSP BTL As Ordered ONE; +VARIBAR PUDDING 40% w/v 230ML TUBE As Ordered ONE; +VITA100093 PO; +amLODIPine 5 MG TAB PO ONE; +diphenhydrAMINE 25MG CAP PO ONE; +diphenhydrAMINE 50MG CAP PO ONE; +diphenhydrAMINE 50MG/ML VIAL IV ONE; +fentaNYL 100 MCG/2 ML INJECTION IV ONE; +fentaNYL 100 MCG/2 ML INJECTION IV PRN; +hydrOXYzine 50 MG TAB PO ONE; +metFORMIN (GLUCOPHAGE) 500MG TAB PO SCH; +metOLazone 2.5 MG TAB PO ONE; +oxyCODONE 5MG TAB PO ONE; +tiZANidine 4 MG TAB PO ONE; +traMADol 50 MG TAB PO ONE; +traMADol 50 MG TAB PO PRN
== END | disposition expired | DRG 313 ==
LOC: M ED 07-02 12:57 → M ED INP 07-02 12:58 → M MSPAV 07-02 22:15 → OBSVTOIN 07-04 13:19 → M MSPAV 05-07 15:27
PROVIDERS: ADMIT Internal Medicine; ATTEND Internal Medicine Nephrology
DX: R07.2 Precordial pain (principal); I63.9 Cerebral infarction, unspecified; U07.1 COVID-19; R45.851 Suicidal ideations; I48.20 Chronic atrial fibrillation, unspecified; I69.351 Hemiplegia and hemiparesis following cerebral infarction affecting right dominant side; E11.42 Type 2 diabetes mellitus with diabetic polyneuropathy; E78.5 Hyperlipidemia, unspecified; Z91.119 Patient's noncompliance with dietary regimen due to unspecified reason; F29 Unspecified psychosis not due to a substance or known physiological condition; Z79.899 Other long term (current) drug therapy; Z91.018 Allergy to other foods; Z88.5 Allergy status to narcotic agent; I10 Essential (primary) hypertension; F03.90 Unspecified dementia, unspecified severity, without behavioral disturbance, psychotic disturbance, mood disturbance, and anxiety; Z91.14 Patient's other noncompliance with medication regimen; Z60.2 Problems related to living alone; N40.0 Benign prostatic hyperplasia without lower urinary tract symptoms; Z95.0 Presence of cardiac pacemaker; Z51.5 Encounter for palliative care; K59.00 Constipation, unspecified; F41.9 Anxiety disorder, unspecified; R19.7 Diarrhea, unspecified; E87.6 Hypokalemia; G47.00 Insomnia, unspecified; M19.111 Post-traumatic osteoarthritis, right shoulder; I69.391 Dysphagia following cerebral infarction; I69.320 Aphasia following cerebral infarction